=== PATIENT | male | born 1950 | race African-American/Black ===

== ENCOUNTER 2017-03-09 08:18 | Emergency (ER) | payer MEDICARE, SELFPAY | END 2017-03-09 11:40 | disposition home or self-care (01) | PROVIDERS: Emergency Provider Emergency Medicine; Family Provider Emergency Medicine; Visit Provider Emergency Medicine | DX: G44.89 Other headache syndrome (principal); I10 Essential (primary) hypertension; Z87.891 Personal history of nicotine dependence; Z86.718 Personal history of other venous thrombosis and embolism; Z79.01 Long term (current) use of anticoagulants; H54.0X33 Blindness right eye category 3, blindness left eye category 3; E78.5 Hyperlipidemia, unspecified; F41.8 Other specified anxiety disorders | CPT/HCPCS: 70450; 80053; 85025; 85610; 99284 ==

== ENCOUNTER 2017-06-04 15:38 | Emergency (ER) | payer MEDICARE, SELFPAY ==
[2017-06-04 15:32] VITALS: BP 127/71; PULSE 68; RESP 16; TEMP 36.9; O2SAT 98; BMI 27.2
--- NOTE | 2017-06-04 15:42 | HMH.EDHA ---
ED Disposition Clinical Impression: Chest pain in adult Headache Qualifiers: Headache type: unspecified Headache chronicity pattern: episodic headache Intractability: not intractable Qualified Code(s): R51 - Headache High blood pressure Qualifiers: Hypertension type: unspecified Qualified Code(s): I10 - Essential (primary) hypertension Disposition: Home, Self-Care Condition on Discharge: Good Instructions: DI for Headache Additional Instructions: Follow up with PCP in two to three days for further blood pressure management and to recheck left lateral leg; continue compression stockings. Referrals: Shaquille Bowden MD [Primary Care Provider] - Time of Disposition: 16:41 - Critical Care Critical Care Time: No Attestation: On 06/04/17, the high probability of a clinically significant, sudden or life threatening deterioration of the following system(s) required my full and direct attention, intervention and personal management. The time I documented below is in addition to time spent performing reported procedures but includes the following listed in this critical care notation. Medical Decision Making - Medical Records Medical records reviewed: Yes: I reviewed the patient's medical records. - River Inquiry Pt receiving controlled substance: No Vital Signs: 06/04/17 15:32 Temperature 98.4 F Temperature Source Oral Pulse Rate [Right Brachial] 68 Respiratory Rate 16 Blood Pressure [Right Arm] 127/71 Blood Pressure Mean [Right Arm] 89 Blood Pressure Source [Right Arm] Automatic Cuff Blood Pressure Position [Right Arm] Sitting 02 Sat by Pulse Oximetry 98 Oxygen Delivery Method Room Air reviewed at bedside during triage - Lab Data Lab results reviewed: Yes: I reviewed the patient's lab results. Lab Results 06/04/17 15:45: WBC 5.5, RBC 4.29 L, Hgb 12.9 L, Hct 40.9 L, MCV 95.5 H, MCH 30.1, MCHC 31.5 L, RDW 14.2, Plt Count 201, MPV 8.2, Neut % (Auto) 60.2, Lymph % (Auto) 25.7, [place] % (Auto) 7.7, Eos % (Auto) 6.1, Baso % (Auto) 0.3, Neut # (Auto) 3.3, Lymph # (Auto) 1.4, [place] # (Auto) 0.4, Eos # (Auto) 0.3, Baso # (Auto) 0.0 06/04/17 15:45: Sodium 144, Potassium 4.1, Chloride 110 H, Carbon Dioxide 28, Anion Gap 10.1, BUN 18, Creatinine 1.63 H, Estimated Creat Clear 62, Estimated GFR 42 L, Est GFR ( Amer) 51 L, Glucose 125 H, Calcium 9.3, Total Bilirubin 0.2, AST 19, ALT 17, Alkaline Phosphatase 73, Troponin I < 0.02, Total Protein 7.7, Albumin 3.3 L, Globulin 4.4 H, Albumin/Globulin Ratio 0.8 L Result diagrams: 06/04/17 15:45 06/04/17 15:45 Orders (Tests/Meds): ORDERS Category Date Time Status XR chest portable Stat Exams 06/04/17 15:49 Taken - Radiology Data #1 Image(s): Chest Image Reviewed: Yes I reviewed the patient's radiology image no change from prior in Jan 2017 - ECG Data Tracing #1 I reviewed this ECG and interpreted as documented below: NSR, borderline LVH seen previously; no change from 10/15/15. ECG initial impression date: 06/04/17 ECG initial impression time: 15:40 ECG normal with no acute: arrhythmias, ischemia, conduction abnormalities, chamber hypertrophy Normal Sinus Rhythm: Yes Chamber hypertrophy present: LVH - Reevaluation(s) Time: 16:37 (repeat SBP 148; no h/a) Headache HPI - General Chief Complaint: Headache Stated Complaint: High BP Time Seen by Provider: 06/04/17 15:42 Mode of Arrival: EMS Source of Information: Patient, EMS, Medical Record Limitations: No Limitations - History of Present Illness HPI Narrative: Diffuse headache, SBP in the 190's per EMS, patient states has had headaches like this in the past when BP elevated. Also reports left lateral leg pain w/o fever or drainage; denies calf pain. Not currently anticoagulated. Has compression type of wrappings on legs on arrival. No SOB but had some vague chest pain this morning w/o cough or flu symptoms. No chest pain now. No leg swelling. No MORRISON. No hypoxia or tachycar
--- NOTE | 2017-06-04 15:49 | XR_ITS ---
XR chest portable HISTORY: ITS.REASON: midsternal pain ORDERING PHYSICIAN: Mckayla Noriega MD PATIENT AGE: 66 years COMPARISON: 02/03/2017 FINDINGS: Borderline cardiomegaly. No evidence of CHF. No lobar consolidation or collapse. There is some increased density left lung base probably related to summation artifact. IMPRESSION: Borderline cardiomegaly, no acute finding
--- NOTE | 2017-06-04 15:53 | ED_ITS ---
ED Disposition Clinical Impression: Chest pain in adult Headache Qualifiers: Headache type: unspecified Headache chronicity pattern: episodic headache Intractability: not intractable Qualified Code(s): R51 - Headache High blood pressure Qualifiers: Hypertension type: unspecified Qualified Code(s): I10 - Essential (primary) hypertension Disposition: Home, Self-Care Condition on Discharge: Good Instructions: DI for Headache Additional Instructions: Follow up with PCP in two to three days for further blood pressure management and to recheck left lateral leg; continue compression stockings. Referrals: Shaquille Bowden MD [Primary Care Provider] - Time of Disposition: 16:41 - Critical Care Critical Care Time: No Attestation: On 06/04/17, the high probability of a clinically significant, sudden or life threatening deterioration of the following system(s) required my full and direct attention, intervention and personal management. The time I documented below is in addition to time spent performing reported procedures but includes the following listed in this critical care notation. Medical Decision Making - Medical Records Medical records reviewed: Yes: I reviewed the patient's medical records. - River Inquiry Pt receiving controlled substance: No Vital Signs: 06/04/17 15:32 Temperature 98.4 F Temperature Source Oral Pulse Rate [Right Brachial] 68 Respiratory Rate 16 Blood Pressure [Right Arm] 127/71 Blood Pressure Mean [Right Arm] 89 Blood Pressure Source [Right Arm] Automatic Cuff Blood Pressure Position [Right Arm] Sitting 02 Sat by Pulse Oximetry 98 Oxygen Delivery Method Room Air reviewed at bedside during triage - Lab Data Lab results reviewed: Yes: I reviewed the patient's lab results. Lab Results 06/04/17 15:45: WBC 5.5, RBC 4.29 L, Hgb 12.9 L, Hct 40.9 L, MCV 95.5 H, MCH 30.1, MCHC 31.5 L, RDW 14.2, Plt Count 201, MPV 8.2, Neut % (Auto) 60.2, Lymph % (Auto) 25.7, [place] % (Auto) 7.7, Eos % (Auto) 6.1, Baso % (Auto) 0.3, Neut # ( Auto) 3.3, Lymph # (Auto) 1.4, [place] # (Auto) 0.4, Eos # (Auto) 0.3, Baso # (Auto ) 0.0 06/04/17 15:45: Sodium 144, Potassium 4.1, Chloride 110 H, Carbon Dioxide 28, Anion Gap 10.1, BUN 18, Creatinine 1.63 H, Estimated Creat Clear 62, Estimated GFR 42 L, Est GFR ( Amer) 51 L, Glucose 125 H, Calcium 9.3, Total Bilirubin 0.2, AST 19, ALT 17, Alkaline Phosphatase 73, Troponin I < 0.02, Total Protein 7.7, Albumin 3.3 L, Globulin 4.4 H, Albumin/Globulin Ratio 0.8 L Result diagrams: 06/04/17 15:45 06/04/17 15:45 Orders (Tests/Meds): ORDERS Category Date Time Status XR chest portable Stat Exams 06/04/17 15:49 Taken - Radiology Data #1 Image(s): Chest Image Reviewed: Yes I reviewed the patient's radiology image no change from prior in Jan 2017 - ECG Data Tracing #1 I reviewed this ECG and interpreted as documented below: NSR, borderline LVH seen previously; no change from 10/15/15. ECG initial impression date: 06/04/17 ECG initial impression time: 15:40 ECG normal with no acute: arrhythmias, ischemia, conduction abnormalities, chamber hypertrophy Normal Sinus Rhythm: Yes Chamber hypertrophy present: LVH - Reevaluation(s) Time: 16:37 (repeat SBP 148; no h/a) Headache HPI - General Chief Complaint: Headache Stated Complaint: High BP Time Seen by Provider: 06/04/17 1
[2017-06-04 16:01] LABS: Basophils % 0.3 % (0.1-2.0); Eosinophils # 0.3 K/mm3 (0.0-0.4); Eosinophils % 6.1 % (0.1-12.0); Hematocrit 40.9 % (42.0-52.0); Hemoglobin 12.9 g/dL (14.1-18.0); Lymphocytes # 1.4 K/mm3 (0.7-4.5); Lymphocytes % 25.7 K/mm3 (10-50); Mean Corpuscular HGB Conc 31.5 g/dL (31.8-35.4); Mean Corpuscular Hemoglobin 30.1 pg (27.0-31.2); Mean Corpuscular Volume 95.5 fl (80-94); Mean Platelet Volume 8.2 fl (7.4-10.4); Monocytes # 0.4 K/mm3 (0.1-1.0); Monocytes % 7.7 % (1.7-9.3); Neutrophils # 3.3 K/mm3 (1.8-7.8); Neutrophils % 60.2 % (37.0-80.0); Platelet Count 201 K/mm3 (142-424); Red Blood Count 4.29 M/mm3 (4.60-6.20); Red Cell Distribution Width 14.2 % (11.5-17.5); White Blood Count 5.5 K/mm3 (4.8-10.8)
[2017-06-04 16:15] LABS: Alanine Aminotransferase 17 U/L (12-78); Albumin Level 3.3 gm/dL (3.4-5.0); Albumin/Globulin Ratio 0.8 (1.1-1.8); Alkaline Phosphatase 73 U/L (46-116); Anion Gap 10.1 mEq/L (5-15); Aspartate Amino Transferase 19 U/L (15-37); Bilirubin,Total 0.2 mg/dL (0.2-1.0); Blood Urea Nitrogen 18 mg/dL (7-18); Calcium 9.3 mg/dL (8.5-10.1); Carbon Dioxide 28 mmol/L (21.0-32.0); Chloride 110 mmol/L (98-107); Creatinine Clearance Estimated 62 mL/min (0-300); Creatinine,Serum 1.63 mg/dL (0.70-1.30); Estimated Glomerular Filt Rate 42 ml/min (>60); GFR (African American) 51 ML/MIN (>60); Globulin 4.4 gm/dl (1.3-3.2); Glucose 125 mg/dL (74-106); Potassium 4.1 mmoL/L (3.5-5.1); Sodium 144 mmol/L (136-145); Total Protein,Serum 7.7 gm/dL (6.4-8.2); Troponin I < 0.02 ng/ml (0.00-0.06)
[2017-06-04 17:10] VITALS: BP 145/75; PULSE 75; RESP 18; TEMP 36.7
== END 2017-06-04 17:10 | disposition home or self-care (01) ==
PROVIDERS: Emergency Provider Emergency Medicine; Family Provider Emergency Medicine; PCP Emergency Medicine
DX: I10 Essential (primary) hypertension (principal); R07.9 Chest pain, unspecified; R51 Headache; H54.8 Legal blindness, as defined in USA
CPT/HCPCS: 71045; 80053; 84484; 85025; 93005; 99282; 99283

== ENCOUNTER 2018-09-22 10:00 | Outpatient (RCR) | payer MEDICARE, SELFPAY ==
--- NOTE | 2018-09-05 09:26 | HMH.PTOPWND ---
Rehab Outpt Wound Evaluation Rehab OP Wound Evaluation Start: 09/05/18 09:20 Freq: Status: Active Protocol: Document 09/05/18 09:20 CALRA (Rec: 09/05/18 09:26 PHORLILLY [id number]) Electronically Signed By Ruperto Cano, PT 09/05/18 09:20 Subjective/History History History Pt is 68 yoaam who presents with c/o right LE edema x ~2-3 wks with insidious onset of symptoms. He currently resides at a personal group home and reports pain only with prolonged walking. He reports no c/o numbness or tingling associated with his edema. He has mild tenderness to palpation throughout the right lower leg. He is legally blind and has hx of B TKA, cardiac cath with stents, CAD, and HTN. Subjective Subjective Currently no c/o pain at rest, 6/10 with ambulation. Lymphedema Eval Classification of Lymphedema Secondary Lymphedema Yes Stemmer's sign Stemmer's Sign no Stage of Lymphedema Lymphedema stages Stage I (Pitting edema, reduces w/ elevation, no fibrosis) Skin Changes Dry Skin Yes Taut, Shiny Skin Yes Discoloration of Skin Yes Pain Scale Pain Scale (0-10) 6 Affected Extremities Areas Affected by Lymphedema/Edema Right Lower Extremity,Left Lower Extremity Manual Lymphatic Drainage Treatment Area MLD Treatment Area Right Lower Extremity,Left Lower Extremity Wound Problems/Impairments Impairments Problems/Impairmments Palpation Tenderness,Impaired Walking,Impaired Household Care,Impaired Recreational Activities,Increased Edema, Lymphedema Present,Subjective C/O Pain,Impaired Self Care/ Self Management Prognosis Rehab Potential Good Clinical Impression Consistent with Diagnosis Yes Short Term Goals Number of Weeks 4 Decreased Palpation Tenderness Yes: to min Increase Ability to Walk Yes Decrease Subjective C/O Pain Yes: 3/10 Patient to Understand Lymphedema Yes Treatment and Exercises Decrease Girth Measurments by (cm) Yes: by 5 cm Extension Service Specialist Goals Number of
== END 2018-09-22 10:05 | disposition home or self-care (01) ==
LOC: PT 10:00
PROVIDERS: Visit Provider Emergency Medicine
DX: M79.89 Other specified soft tissue disorders (principal); I89.0 Lymphedema, not elsewhere classified
CPT/HCPCS: 97140; 97162; 97760

== ENCOUNTER → 2018-12-01 11:01 | Outpatient (CLI) | payer MEDICARE, SELFPAY ==
--- NOTE | 2018-12-01 11:05 | CA_ITS ---
APPROVED REPORT EXAM: Comprehensive 2D, Doppler, and color-flow Echocardiogram Loss Prevention Analyst: Stefania Etienne RDCS Ht: 6 ft 4 in Wt: 249lbs BSA: 2.43 BP: 165/101 mmHg Indications: Chest Pain, Shortness of Breath, CAD, Hyperlipidemia, Hypertension/HDD 2D Dimensions LVOT 2.00 cm (M/F) 1.5-2.5 M-Mode Dimensions RVDd 3.50 cm (0.9-2.6) LA Diam 4.10 cm (1.9-4.0) LVDd 6.50 cm (3.5-5.7) Ao Diam 3.40 cm (2.0-3.7) LVDs 4.70 cm (3.5-5.7) AV Cusp 2.20 cm (1.5-2.6) IVSd 1.00 cm (0.6-1.1) PWd 1.20 cm (0.6-1.1) EF (Teich) 52.80% FS 27.70% EDV (Teich) 216.00 mL ESV (Teich) 102.00 mL LV Diastology E/A Ratio 0.6 MED E' 4.87 (< 7 cm/sec) E'/MED E' Ratio 9.40 (>14) LAT E' 10.20 (<10 cm/sec) E/LAT E' Ratio 4.50 (>14) Mitral Valve MV E Max Man. 45.90 (40-130 cm/s) MV A Velocity 72.10 (40-130 cm/s) E/A Ratio 0.60 Tricuspid Valve TR P. Velocity 315.00 cm/s RAP Estimate 10.00 mmHg RVSP 50.00 mmHg Left Ventricle Left atrium is mildly enlarged, left ventricle is normal size, mild concentric left ventricular hypertrophy, visually estimated ejection fraction 55% with no regional wall motion abnormality. Grade 1 diastolic dysfunction seen without tissue Doppler evidence of raise left atrial pressure. Right Ventricle Right atrium and left ventricular mildly enlarged with normal contractility. Aortic Valve Aortic valve is minimally thickened and fibrosed, there is no aortic stenosis aortic insufficiency. Mitral Valve Mitral valve is grossly normal, there is no mitral stenosis, there is mild mitral regurgitation. Tricuspid Valve Tricuspid valve is grossly normal, there is no tricuspid stenosis, there is mild tricuspid regurgitation, calculated right ventricular systolic pressure is 50 mmHg consistent with moderate pulmonary hypertension. Pulmonic Valve Pulmonic valve is poorly visualized. Great Vessels Aortic root is normal size. Pericardium No significant pericardial effusion noted. Conclusion 1. Mildly biatrial enlargement, normal left ventricular size, mild concentric left ventricular hypertrophy, visually estimated ejection fraction 55% with no regional wall motion abnormality. Grade 1 diastolic dysfunction seen without tissue Doppler evidence of raise left atrial pressure. 2. Mildly enlarged right ventricle with normal contractility. 3. Mild mitral and tricuspid regurgitation, calculated right ventricular systolic pressure is 50 mmHg consistent with moderate pulmonary hypertension. 4. No significant pericardial effusion noted. Electronically signed by : Fernando Phan, 12/01/2018 14:48:51
== END ==
PROVIDERS: PCP Emergency Medicine; Visit Provider Nurse Practitioner Family
DX: I25.10 Atherosclerotic heart disease of native coronary artery without angina pectoris (principal); R06.02 Shortness of breath; R07.9 Chest pain, unspecified
CPT/HCPCS: 93306

== ENCOUNTER → 2018-12-13 06:59 | Outpatient (CLI) | payer MEDICARE, SELFPAY ==
--- NOTE | 2018-12-13 | CA_ITS ---
APPROVED REPORT Exam: Pharmacologic Technologist: Jackelyn Elise Ht: 5 ft 4 in Wt: 248 lbs BSA: 2.14 m2 HR: 54 bpm BP: 159/94 mmHg Indications: Shortness of Air, chest pain Medical History Medications: Amlodipine,,,,, Furosemide (LASIX),,,,, Clonidine,,,,, Aspirin,,,,, Metoprolol,,,,, Simvastatin,,,,, Pantoprazole,,,,, Tramadol,,,,, LoraTidine,,,,, TriLEPTAL,,,,, Erythromycin,,,,, Timolol,,,,, Stress Test Details Test: LEXISCAN Reason for pharmacologic stress test: physical limitation. Reversal agent Aminophyline 100.0 mg, given intravenously for other. HR Resting HR: 56 bpm Max Heart Rate (APMHR): 150 bpm Max HR Achieved: 75 bpm Target HR (85% APMHR): 127 bpm % of APMHR: 50 Recovery HR: 63 bpm BP Resting BP: 159.0/94.0 mmHg Max BP: 167.0/103.0 mmHg Recovery BP: 167.0/103.0 mmHg ECG Clinical Exercise duration: 04:07 min Highest Stage Achieved: Stress ECG Conclusion Resting ECG: Sinus bradycardia, right axis, IVCD, ST-T abnormalities inferiorly Aminophylline 100mg slow IV given. Symptoms better except for stomach and headache. Symptoms: Shortness of air, upset stomach, headache, malaise. Mild chest discomfort. Arrhythmias/Ectopy: None ST-T Changes: NS ST-T changes Conclusion: Non-diagnostic Lexiscan stress. Myoview images reported separately. Electronically signed by : Fernando Phan, 12/14/2018 12:19:41
--- NOTE | 2018-12-13 07:02 | NM_ITS ---
APPROVED REPORT Exam: Nuclear Stress Test Indication: Chest pain, SOB, HTN, Former smoker, CAD Patient Location: Outpatient Stress Tech: Jackelyn Elise PA Tech:Chey Mota, ARRT, RT (R)(N) Ht: 6 ft 4 in Wt: 248 lbs HR: 54 bpm BP: 159/94 mmHg BSA: 2.43 m2 BMI: 30.1 History: Chest pain, SOB, HTN, Former smoker, CAD Procedure: Patient received a 0.4 mg of intravenous Lexiscan, resting heart rate 54 bpm, resting blood pressure 159/94 mmHg, with Lexiscan maximum heart rate achived was 73 bpm which is Less than 85 % of the maximum predicted heart rate and blood pressure was 106/64 mmHg. Electrocardiogram Sinus rhythm, with Lexiscan there is less than 1.[address] segment depression noted from the baseline EKG, nonspecific ST-T changes were also seen. The EKG portion of the Lexiscan Myoview is nondiagnostic. Cardiac Stress and Resting SPECT Images: Cardiac Stress and Resting SPECT images were obtained using technetium 99m Myoview 32.2 mCi stress and 10.83 mCi at rest. Gated SPECT with analysis of segmental wall motion and calculation of the ejection fraction also done. Cardiac stress and resting SPECT images show a fixed defect in the inferior wall secondary to myocardial scarring, no significant zehra-infarct ischemia seen, computer derived ejection fraction is 55% with moderate inferior wall hypokinesis. Right ventricle is normal size and contractility. Conclusion: 1. The EKG portion of the Lexiscan Myoview is nondiagnostic. 2. Scintigraphic evidence of myocardial scarring involving the inferior wall without significant zehra-infarct ischemia, computer derived ejection fraction 55% with moderate inferior wall hypokinesis, right ventricle is normal size and contractility. 3. Abnormal Lexiscan Myoview study. Electronically signed by : Fernando Phan, 12/14/2018 12:23:19
--- NOTE | 2018-12-13 07:32 | HMH.ITSHM ---
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 []TIMOLOL PANTOPRAZOLE LISINOPRIL ISOSORBIDE FUROSEMIDE CLONIDINE ASA AMLODIPINE TRAMADOL SIMVASTATIN TRILEPTAL METOPROLOL LORATADINE ERYTHROMYCIN
== END ==
PROVIDERS: PCP Emergency Medicine; Visit Provider Urology
DX: E78.5 Hyperlipidemia, unspecified (principal); I20.9 Angina pectoris, unspecified; I27.20 Pulmonary hypertension, unspecified; I51.89 Other ill-defined heart diseases; R06.02 Shortness of breath; R07.9 Chest pain, unspecified
CPT/HCPCS: 78452; 93017; A9502; J2785

== ENCOUNTER → 2019-01-23 10:55 | Outpatient (CLI) | payer MEDICARE, SELFPAY ==
[2019-01-23 12:35] LABS: Blood Urea Nitrogen 31 mg/dL (7-18); Calcium 8.8 mg/dL (8.5-10.1); Carbon Dioxide 30 mmol/L (21.0-32.0); Chloride 110 mmol/L (98-107); Creatinine,Serum 2.71 mg/dL (0.70-1.30); Estimated Glomerular Filt Rate 23 ml/min (>60); GFR (African American) 28 ML/MIN (>60); Glucose 101 mg/dL (74-106); Sodium 146 mmol/L (136-145)
== END ==
PROVIDERS: Nurse Practitioner Family; Visit Provider Internal Medicine
DX: R06.02 Shortness of breath; E78.2 Mixed hyperlipidemia; I10 Essential (primary) hypertension; I25.118 Atherosclerotic heart disease of native coronary artery with other forms of angina pectoris; I27.20 Pulmonary hypertension, unspecified; R51 Headache
CPT/HCPCS: 36415; 80048

== ENCOUNTER 2019-04-08 08:16 | Observation (INO) ==
[2019-04-08 08:47] LABS: Microscopic, Urine URINE MICROSCOPIC (MICROSCOPIC)
[2019-04-08 08:50] LABS: Appearance,Urine CLEAR (Clear); Bilirubin,Urine Negative (Negative); Blood, Urine 1+ (Negative); Color,Urine YELLOW (Yellow); Glucose,Urine (UA) Negative (Negative); Ketones,Urine Negative (Negative); Leukocyte Esterase,Urine 1+ (Negative); PH,Urine 6.5 (5.0-8.5); Protein,Urine Negative (Negative); Urobilinogen,Urine 0.2 EU/dl (0.2)
--- NOTE | 2019-04-08 08:50 | Emergency Department Note ---
ED Disposition Clinical Impression: Elevated left ventricular end-diastolic pressure (LVEDP), Renal insufficiency, Hypertensive urgency, Visual impairment Chest pain Qualifiers: Chest pain type: precordial pain Qualified Code(s): R07.2 - Precordial pain UTI (urinary tract infection) Qualifiers: Urinary tract infection type: site unspecified Hematuria presence: without hematuria Qualified Code(s): N39.0 - Urinary tract infection, site not specified Disposition: Admitted as Observation Condition on Discharge: Good - Critical Care Critical Care Time: No Attestation: On 04/08/19, the high probability of a clinically significant, sudden or life th reatening deterioration of the following system(s) required my full and direct attention, intervention and personal management. The time I documented below is in addition to time spent performing reported procedures but includes the following listed in this critical care notation. Medical Decision Making - Medical Records Medical records reviewed: Yes: I reviewed the patient's medical records. - [place] Inquiry Pt receiving controlled substance: No Vital Signs: 04/08/19 08:17 04/08/19 08:47 Pulse Rate [Radial] 66 63 Respiratory Rate 18 Blood Pressure [Right Arm] 203/133 H 172/102 H Blood Pressure Mean [Right Arm] 156 125 Blood Pressure Source [Right Arm] Automatic Cuff Blood Pressure Position [Right Arm] Supine 02 Sat by Pulse Oximetry 98 96 Oxygen Delivery Method Room Air - Lab Data Lab results reviewed: Yes: I reviewed the patient's lab results. Lab Results 04/08/19 08:35: WBC 6.6, RBC 4.13 L, Hgb 12.2 L, Hct 38.6 L, MCV 93.4, MCH 29.5, MCHC 31.6 L, RDW 14.2, Plt Count 213, MPV 8.4, Neut % (Auto) 61.2, Lymph % (Auto) 24.0, Dare % (Auto) 7.2, Eos % (Auto) 6.7, Baso % (Auto) 1.0, Neut # (Auto) 4.1, Lymph # (Auto) 1.6, Dare # (Auto) 0.5, Eos # (Auto) 0.4, Baso # (Auto) 0.1 04/08/19 08:35: Sodium 147 H, Potassium 4.3, Chloride 110 H, Carbon Dioxide 25, Anion Gap 16.3 H, BUN 27 H, Creatinine 2.28 H, Estimated Creat Clear 46, Estimated GFR 29 L, Est GFR ( Amer) 35 L, Glucose 93, Calcium 9.0, Troponin I < 0.02 04/08/19 08:35: Urine Color Yellow, Urine Appearance Clear, Urine pH 6.5, Ur Specific [place] 1.020, Urine Protein Negative, Urine Glucose (UA) Negative, Urine Ketones Negative, Urine Blood 1+, Urine Nitrate Negative, Urine Bilirubin Negative, Urine Urobilinogen 0.2, Ur Leukocyte Esterase 1+ A, Urine RBC 5-10, Urine WBC 50-100, Ur Squamous Epith Cells 5-10, Amorphous Sediment 2+, Urine Bacteria None Result diagrams: 04/08/19 08:35 04/08/19 08:35 Orders (Tests/Meds): ED MEDICATIONS Generic Name Dose Route Start Last Admin Trade Name Freq PRN Reason Stop Dose Admin Ertapenem 1 gm/ Sodium 50 mls @ 100 mls/hr 04/08/19 09:45 04/08/19 09:39 Chloride IV 04/22/19 09:44 100 mls/hr Q24H [place] Administration Protocol Discontinued Medications Generic Name Dose Route Start Last Admin Trade Name Freq PRN Reason Stop Dose Admin Amlodipine Besylate 10 mg 04/09/19 09:12 Norvasc 10mg Tablet PO 04/09/19 09:13 DAILY ONE Amlodipine Besylate 10 mg 04/08/19 09:12 04/08/19 09:30 Norvasc 10mg Tablet PO 04/08/19 09:13 10 mg DAILY ONE Administration Aspirin 324 mg 04/08/19 08:23 04/08/19 08:30 Aspirin 81mg Chewable Tablet PO 04/08/19 08:24 324 mg ONCE ONE Administration Clonidine HCl 0.1 mg 04/08/19 09:10 04/08/19 09:27 Clonidine 0.1mg Tablet PO 04/08/19 09:11 0.1 mg ONCE ONE Administration Isosorbide Mononitrate 30 mg 04/09/19 09:10 Imdur 30mg Er Tablet PO 04/09/19 09:11 DAILY ONE Isosorbide Mononitrate 30 mg 04/08/19 09:10 04/08/19 09:29 Imdur 30mg Er Tablet PO 04/08/19 09:11 30 mg DAILY ONE Administration Lisinopril 20 mg 04/09/19 09:10 Zestril 20mg Tab PO 04/09/19 09:11 DAILY ONE Lisinopril 20 mg 04/08/19 09:10 04/08/19 09:29 Zestril 20mg Tab PO 04/08/19 09:11 20 mg DAILY ONE Administration Metoprolol Succinate 200 mg 04/09/19 09:10 Toprol Xl 100mg Tablet PO 04/09/19 09:11 DAILY ONE Metoprolol Succinate 200 mg 04/08/19 09:10 04/08/19 09:29 Toprol Xl 100mg Tablet PO 04/08/19 09:11 200 mg DAILY ONE Administration ORDERS Category Date Time Status XR chest 2V Stat Exams 04/08/19 08:23 Taken Lactic Acid Stat Lab 04/08/19 09:50 Received Troponin I Q3H Lab 04/08/19 11:30 Ordered Troponin I Q3H Lab 04/08/19 14:30 Ordered Blood Culture Stat Micro 04/08/19 09:50 Received Urine Culture Stat Micro 04/08/19 08:35 Received ECG Request by /Bambi Stat Y 04/08/19 08:23 Ordered - Radiology Data #1 Image(s): Chest Image Reviewed: Yes I reviewed the patient's radiology image Preliminary Findings: Abnormal (chronic changes ) - ECG Data Tracing #1 Normal Sinus Rhythm: Yes Ischemic changes: non-specific ST-T wave changes Chest Pain HPI - General Chief Complaint: Chest Pain Stated Complaint: HTN Time Seen by Provider: 04/08/19 08:30 Mode of Arrival: EMS Source of Information: Patient, EMS, Medical Record Limitations: No Limitations Description of Symptoms (Recalled from ER Triage Doc. by RN): Complaint of recent cough with chest tightness. Elevated BP, has been on a new cough syrup. 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 and feeling of sob with assoc chest tightness - no fever - has elevated bp - MD complaint: chest pain indicative of cardiac Onset (ago): hour(s) Duration: intermittent Activity at onset: during rest Pain location: substernal Severity: similar to previous episodes Quality: tightness Risk Factors for CAD: Hypertension, Family Hx of CAD Treatments prior to or on arrival for Cardiac Chest Pain: none - DAFNE Score for Non-Stemi Age of Patient: 70-79 years old Heart Rate: 50-69 bpm Systolic Blood Pressure: 200 mmhg or higher Serum Creatinine: 2.00-3.99 mg/dl CHF [place] Class: I-No CHF Other Risk Factors: None Non-Stemi Risk Score: 99 - Related Data Prior Cardiac Testing/Procedures: Cardiac Angiogram Home Medications Medication Instructions Recorded Confirmed Erythromycin Base [Erythromycin 1 applic EYE-BOTH BID 06/12/17 04/08/19 3.5gm opth oinment] Loratadine [Claritin] 10 mg PO DAILY 06/12/17 04/08/19 Metoprolol Succinate [Toprol Xl 200 mg PO DAILY 06/12/17 04/08/19 200mg Tablet] Simvastatin 1 tab PO DAILY 06/12/17 04/08/19 Tramadol HCl [Ultram Take Home 1 tab PO Q6HP PRN 06/12/17 04/08/19 Pack 50mg (10)] timolol maleate 0.5 % eye drops 1 drp OPHTHALMIC DAILY 30 Days #10 06/16/17 04/08/19 OXcarbazepine [Trileptal 300mg 300 mg PO BID 08/20/18 04/08/19 tablet] cloNIDine HCL [cloNIDine 0.1mg 0.1 mg PO TID 08/20/18 04/08/19 Tablet] acetaminophen 325 mg capsule 325 mg PO Q6H PRN 11/27/18 04/08/19 spironolactone 25 mg tablet 25 mg PO DAILY 01/02/19 04/08/19 Amlodipine Besylate [Amlodipine 10 mg PO DAILY 04/08/19 04/08/19 10mg Tab] Aspirin [Low Dose Aspirin EC] 81 mg PO DAILY 04/08/19 04/08/19 Furosemide [Furosemide 40MG tAB] 40 mg PO DAILY 04/08/19 04/08/19 Isosorbide Mononitrate [Imdur 30mg 30 mg PO DAILY 04/08/19 04/08/19 ER tablet] Pantoprazole Sodium [Protonix 40mg 40 mg PO DAILY 04/08/19 04/08/19 tablet] lisinopriL [Lisinopril 20mg Tab] 20 mg PO BID 04/08/19 04/08/19 Allergies Allergy/AdvReac Type Severity Reaction Status Date / Time No Known Allergies Allergy Verified 01/23/19 11:22 [facility] History - Hepatitis A Screen Drug use history?: No High risk sexual behaviors?: No History of sexually transmitted infection?: No Currently employed?: No Childcare worker?: No Do you have indoor plumbing?: Yes Do you have electricity?: Yes Attestation statement:: This patient has been screened for Hepatitis A risk factors. I have reviewed the patient's past medical history: Yes Medical History: Reports:: Coronary Artery Disease, Deep Vein Thrombosis, Hyperlipidemia, Hypertension, Renal Insufficiency Denies:: Cancer, Diabetes Mellitus Type 1, Diabetes Mellitus Type 2, Internal Pacemaker, MRSA, Seizures Other Medical History: Denies: Blood Transfusion Reaction Other Surgeries: Yes: Cardiac Catheterization, Coronary Stent, Skin Cancer Excision, Other (blood clot in leg in the past). No: Pacemaker Amputation: No Fractures: No - Social History Smoking Status: Former smoker Tobacco Type: cigarettes Alcohol Intake: never Substance Use Type: denies use Occupational Status: unemployed, retired Housing: assisted living facility Household Members: other Family Hx:: No significant family history ROS Obtained: Yes All systems reviewed & no additional complaints - Constitutional Constitutional: Denies fever(s) - Eyes Eyes: Denies change in vision - ENT Ears, Nose, Mouth, and Throat: Denies sore throat - Cardiovascular Cardiovascular: Reports chest pain, Denies dyspnea - Respiratory Respiratory: Yes as per HPI, Yes cough, No coughing up blood - Gastrointestinal Gastrointestingal: Denies: abdominal pain - Genitourinary Male Genitourinary: Denies hematuria - Musculoskeletal Musculoskeletal: Denies joint pain - Integumentary/Breasts Skin/Breast: Denies rash - Neurologic Neurologic: Denies seizure-like activity Physical Exam - General General appearance: alert - Head Head exam: normocephalic - Eye Eye exam: Present: PERRL, EOMI - ENT ENT exam: Present: mucous membranes dry - Neck Neck exam: Present: trachea midline - Respiratory Respiratory exam: Present: normal lung sounds bilaterally. Absent: respiratory distress - Cardiovascular Cardiovascular exam: Present: regular rate, systolic murmur, +S4 - Abdominal Exam Abdominal exam: Present: soft - Extremities Exam Extremities exam: Present: pedal edema. Absent: calf tenderness - Neurological Exam Neurological exam: Present: alert, CN II-XII intact - Psychiatric Psychiatric exam: Present: normal affect - Skin Skin exam: Absent: rash
[2019-04-08 08:53] LABS: Basophils # 0.1 K/mm3 (0-0.2); Eosinophils # 0.4 K/mm3 (0.0-0.4); Eosinophils % 6.7 % (0.1-12.0); Hematocrit 38.6 % (42.0-52.0); Hemoglobin 12.2 g/dL (14.1-18.0); Lymphocytes # 1.6 K/mm3 (0.7-4.5); Mean Corpuscular HGB Conc 31.6 g/dL (31.8-35.4); Mean Corpuscular Volume 93.4 fl (80-94); Mean Platelet Volume 8.4 fl (7.4-10.4); Monocytes # 0.5 K/mm3 (0.1-1.0); Monocytes % 7.2 % (1.7-9.3); Neutrophils # 4.1 K/mm3 (1.8-7.8); Neutrophils % 61.2 % (37.0-80.0); Platelet Count 213 K/mm3 (142-424); Red Blood Count 4.13 M/mm3 (4.60-6.20); Red Cell Distribution Width 14.2 % (11.5-17.5); White Blood Count 6.6 K/mm3 (4.8-10.8)
[2019-04-08 08:55] LABS: Amorphous Sediment,Urine 2+ /lpf; WBC,Urine 50-100 #/hpf (0-3)
[2019-04-08 09:02] LABS: Anion Gap 16.3 mEq/L (5-15); Blood Urea Nitrogen 27 mg/dL (7-18); Carbon Dioxide 25 mmol/L (21.0-32.0); Chloride 110 mmol/L (98-107); Sodium 147 mmol/L (136-145)
[2019-04-08 09:03] LABS: Glucose 93 mg/dL (74-106)
--- NOTE | 2019-04-08 10:55 | History & Physical Report ---
*Admission Date: 04/08/19 *Chief complaint: chest pain *History of present illness: this pt presented to the ed with chest pain from [facility] -pt with nonproductive cough - pt was seen in the ed and was admitted with chest pain - [facility]. Patient states that about 3 PM yeste rday he started having some chest pains. Also complains of headache and shortness of breath. Says that if he holds his head up off the bed he feels like he can breathe better, but if he lays his head back he feels short of breath. States that he feels at times like he is going to pass out. States that he has a cough productive of green sputum. No fever that he is aware of. He has COPD. He says he was on oxygen at the [facility] previously, but just stopped using it on his own. He says mostly he used to wear it at night. He is a former smoker half a pack to three quarters of a pack per day for over 50 years. Says that he quit smoking last year. He also has a history of dysphagia and sees Dr. Land. He was given aspirin, nitroglycerin, and a DuoNeb treatment during transport. He feels like the nebulizer treatment helped his breathing. [facility] History I have reviewed the patient's past medical history: Yes Medical History: Reports:: Coronary Artery Disease, Deep Vein Thrombosis, Hyperlipidemia, Hypertension, Renal Insufficiency Denies:: Cancer, Diabetes Mellitus Type 1, Diabetes Mellitus Type 2, Internal Pacemaker, MRSA, Seizures *Have you ever received a pneumonia vaccine?: Yes *Have you received a flu vaccine this season?: Yes Other Medical History: Denies: Blood Transfusion Reaction Other Surgeries: Yes: Cardiac Catheterization, Coronary Stent, Skin Cancer Excision, Other (blood clot in leg in the past). No: Pacemaker Amputation: No Fractures: No - *Social History Smoking Status: Former smoker Tobacco Type: cigarettes Alcohol Intake: never Substance Use Type: denies use *Occupational Status:: unemployed, retired Housing: assisted living facility Household Members: other *Travel in the last 8 weeks: None Family Hx:: No significant family history Review of Systems - Review of Systems Review of systems:: pertinent systems reviewed and negative unless documented below - Constitutional Denies fever(s) - Eyes Denies change in vision - ENT Denies sore throat - *Cardiovascular Reports chest pain, Reports chest pain at rest - *Respiratory Reports cough, Reports shortness of breath, Denies coughing up blood - *Gastrointestinal Denies abdominal pain - *Genitourinary Denies blood in urine - *Musculoskeletal Denies joint pain - Integumentary/Breasts Denies rash - *Neurologic Denies seizure-like activity, Denies localized weakness, Denies headache(s), Denies seizure-like activity - Psychiatric Denies anxiety Meds Home Medications Medication Instructions Recorded Confirmed Type Erythromycin Base [Erythromycin 1 applic EYE-BOTH TIDP PRN 06/12/17 04/08/19 History 3.5gm opth oinment] Loratadine [Claritin] 10 mg PO DAILY 06/12/17 04/08/19 History Metoprolol Succinate [Toprol Xl 200 mg PO DAILY 06/12/17 04/08/19 History 200mg Tablet] Tramadol HCl [Ultram Take Home 1 tab PO Q6HP PRN 06/12/17 04/08/19 History Pack 50mg (10)] timolol maleate 0.5 % eye drops 1 drp OPHTHALMIC DAILY 30 Days #10 06/16/17 04/08/19 History OXcarbazepine [Trileptal 300mg 300 mg PO BID 08/20/18 04/08/19 History tablet] cloNIDine HCL [cloNIDine 0.1mg 0.1 mg PO 0900,1700,2100 08/20/18 04/08/19 History Tablet] spironolactone 25 mg tablet 25 mg PO DAILY 01/02/19 04/08/19 History Acetaminophen [Acetaminophen 325mg 650 mg PO Q4HP PRN 04/08/19 04/08/19 History tab] Amlodipine Besylate [Amlodipine 10 mg PO DAILY 04/08/19 04/08/19 History 10mg Tab] Aspirin [Aspirin 81mg chewable 81 mg PO DAILY 04/08/19 04/08/19 History tab] Furosemide [Furosemide 40MG tAB] 40 mg PO DAILY 04/08/19 04/08/19 History Isosorbide Mononitrate [Imdur 30mg 30 mg PO DAILY 04/08/19 04/08/19 History ER tablet] Pantoprazole Sodium [Protonix 40mg 40 mg PO DAILY 04/08/19 04/08/19 History tablet] Simvastatin 20 mg PO HS 04/08/19 04/08/19 History guaiFENesin [Robafen] 100 mg PO Q4HP PRN 04/08/19 04/08/19 History lisinopriL [Lisinopril 20mg Tab] 20 mg PO BID 04/08/19 04/08/19 History Allergies Allergy/AdvReac Type Severity Reaction Status Date / Time No Known Allergies Allergy Verified 01/23/19 11:22 Exam Vital signs and Labs for Last 24 Hours: Temp Pulse Resp BP Pulse Ox 97.9 F 86 14 197/112 H 96 04/08/19 10:24 04/08/19 10:24 04/08/19 10:24 04/08/19 10:24 04/08/19 10:19 Laboratory Results - last 24 hr 04/08/19 08:35: WBC 6.6, RBC 4.13 L, Hgb 12.2 L, Hct 38.6 L, MCV 93.4, MCH 29.5, MCHC 31.6 L, RDW 14.2, Plt Count 213, MPV 8.4, Neut % (Auto) 61.2, Lymph % (Auto) 24.0, [place] % (Auto) 7.2, Eos % (Auto) 6.7, Baso % (Auto) 1.0, Neut # (Auto) 4.1, Lymph # (Auto) 1.6, [place] # (Auto) 0.5, Eos # (Auto) 0.4, Baso # (Auto) 0.1 04/08/19 08:35: Sodium 147 H, Potassium 4.3, Chloride 110 H, Carbon Dioxide 25, Anion Gap 16.3 H, BUN 27 H, Creatinine 2.28 H, Estimated Creat Clear 46, Estimated GFR 29 L, Est GFR ( Amer) 35 L, Glucose 93, Calcium 9.0, Troponin I < 0.02 04/08/19 08:35: Urine Color Yellow, Urine Appearance Clear, Urine pH 6.5, Ur Specific [place] 1.020, Urine Protein Negative, Urine Glucose (UA) Negative, Urine Ketones Negative, Urine Blood 1+, Urine Nitrate Negative, Urine Bilirubin Negative, Urine Urobilinogen 0.2, Ur Leukocyte Esterase 1+ A, Urine RBC 5-10, Urine WBC 50-100, Ur Squamous Epith Cells 5-10, Amorphous Sediment 2+, Urine Bacteria None 04/08/19 09:50: Lactate 1.6 I & O for Last 24 hours: Intake & Output 04/05/19 04/06/19 04/07/19 04/08/19 11:59 11:59 11:59 11:59 Weight 252 lb 4 oz - Constitutional no acute distress, obese - *Routine HEENT Exam Head: Present: normocephalic Eye: Present: EOMI, PERRL ENT: Present: mucous membranes dry - *Routine Neck Exam Present: supple. Absent: JVD - *Routine Respiratory Exam Present: CTA bilaterally - *Routine Cardiovascular Exam Present: RRR, murmur - *Routine Abdominal Exam Present: soft - *Routine Extremities Exam Present: full ROM - *Routine Skin Exam Present: intact - *Routine Neurological Exam Present: alert, oriented X3, CN II-XII intact - Routine Psychiatric Exam Present: normal affect Assessment and Plan (1) Obesity (BMI 30.0-34.9) Current visit: Yes Status: Acute Category: Medical Code(s): E66.9 - Obesity, unspecified (2) Chest pain Current visit: Yes Status: Acute Qualifiers: Chest pain type: precordial pain Qualified Code(s): R07.2 - Precordial pain Category: Medical Code(s): R07.9 - Chest pain, unspecified (3) Elevated left ventricular end-diastolic pressure (LVEDP) Current visit: Yes Status: Acute Category: Medical Code(s): R94.30 - Abnormal result of cardiovascular function study, unspecified (4) Hypertensive urgency Current visit: Yes Status: Acute Category: Medical Code(s): I16.0 - Hypertensive urgency (5) Renal insufficiency Current visit: Yes Status: Acute Category: Medical Code(s): N28.9 - Disorder of kidney and ureter, unspecified (6) UTI (urinary tract infection) Current visit: Yes Status: Acute Qualifiers: Urinary tract infection type: site unspecified Hematuria presence: without hematuria Qualified Code(s): N39.0 - Urinary tract infection, site not specified Category: Medical Code(s): N39.0 - Urinary tract infection, site not specified (7) Visual impairment Current visit: Yes Status: Acute Category: Medical Code(s): H54.7 - Unspecified visual loss
--- NOTE | 2019-04-08 12:02 | Pharmacy Consult Notes ---
[facility] Pharmacy VTE Monitoring - Patient Demographics Admission date: 04/08/19 Report Date: 04/08/19 Time: 12:02 Allergies/Adverse Reactions: Patient Allergies No Known Allergies Allergy (Verified 01/23/19 11:22) Height: 1.93 m Weight: 114.419 kg Patient Problems: Current Active Problems Renal insufficiency (Acute) Hypertensive urgency (Acute) UTI (urinary tract infection) (Acute) Visual impairment (Acute) Elevated left ventricular end-diastolic pressure (LVEDP) (Acute) Chest pain (Acute) - VTE Risk Labs: VTE Related Lab Results Hgb 12.2 g/dL (14.1-18.0) L 04/08/19 08:35 Hct 38.6 % (42.0-52.0) L 04/08/19 08:35 Plt Count 213 K/mm3 (142-424) 04/08/19 08:35 BUN 27 mg/dL (7-18) H 04/08/19 08:35 Creatinine 2.28 mg/dL (0.70-1.30) H 04/08/19 08:35 Estimated Creat Clear 46 mL/min (50-200) 04/08/19 08:35 - Prophylaxis Types of VTE Prophylaxis: TEDS Knee High (FEI HOSE ORDER PLACED)
[2019-04-09 08:48] LABS: Basophils # 0.1 K/mm3 (0-0.2); Basophils % 1.1 % (0.1-2.0); Eosinophils # 0.4 K/mm3 (0.0-0.4); Eosinophils % 7.4 % (0.1-12.0); Hemoglobin 11.8 g/dL (14.1-18.0); Lymphocytes # 1.3 K/mm3 (0.7-4.5); Lymphocytes % 23.2 % (10-50); Mean Corpuscular HGB Conc 31.8 g/dL (31.8-35.4); Mean Corpuscular Volume 92.4 fl (80-94); Monocytes # 0.3 K/mm3 (0.1-1.0); Monocytes % 5.1 % (1.7-9.3); Neutrophils # 3.6 K/mm3 (1.8-7.8); Neutrophils % 63.2 % (37.0-80.0); Platelet Count 217 K/mm3 (142-424); White Blood Count 5.7 K/mm3 (4.8-10.8)
[2019-04-09 08:52] LABS: Anion Gap 15.6 mEq/L (5-15); Calcium 8.9 mg/dL (8.5-10.1)
--- NOTE | 2019-04-09 09:04 | Consult Report ---
History of Present Illness Consult date: 04/09/19 Requesting physician: Shaquille Bowden Consult reason: shortness of breath Chief complaint: SOA Additional Medical History:: 1. Blind 2. HTN A. Echo, 11/2018, 1. Mildly biatrial enlargement, normal left ventricular size, mild concentric left ventricular hypertrophy, visually estimated ejection fraction 55% with no regional wall motion abnormality. Grade 1 diastolic dysfunction seen without tissue Doppler evidence of raise left atrial pressure. 2. Mildly enlarged right ventricle with normal contractility. 3. Mild mitral and tricuspid regurgitation, calculated right ventricular systolic pressure is 50 mmHg consistent with moderate pulmonary hypertension. 4. No significant pericardial effusion noted 3. Hyperlipidemia, on statin 4. CKD, stage III, Cr about 2 and GFR of about 30 5. ERIC induced cough, 03/2019 6. History of DVT 7. CAD with history of LAD stent [facility], 06/2017, 1. The left main artery normal 2. The left anterior descending artery has very proximal stent which is widely patent free of in-stent restenosis. Immediately distal to the stent is a Concentric 30% stenosis followed by a mid vessel 40-50% stenosis. The vessel is tortuous 3. The circumflex artery is codominant and has mild luminal irregularities within mid vessel 20% stenosis 4. The right coronary artery is codominant very tortuous with 20% mid vessel stenoses 5. The JIMENEZ ventriculogram reveals normal 60% 6. The left ventricular end-diastolic pressure 20 mmHg [facility], 12/2018, due to abnormal stress test. The left main artery Normal The left anterior descending artery Has proximal 30 to 40% stenosis followed by a stent in the midsegment which is widely patent. Distal to the stent there is a 40% tapering into the [place] vessel. A large first diagonal artery has proximal 40% stenosis The circumflex artery Is a large codominant vessel and has 10% diffuse luminal irregularities The right coronary artery Is codominant and has proximal 20 to 30% stenosis mild 10% mid vessel stenoses The JIMENEZ ventriculogram reveals Normal 65% The left ventricular end-diastolic pressure Severely elevated at 30 mmHg History of present illness: 68 yo BM resident of [facility] admitted for SOA and cough. Pt relates increased in salt containing foods (sausage, chips, etc) recently. Denies any chest pain but has had a non-productive cough. Poor vision with only able to see light and shapes out of right eye. Troponins normal X 3 with CXR negative for CHF or acute process. EKG is sinus with with LAD and no acute ST segment changes. Noted to have some renal insufficiency on admission that has improved with holding lisinopril along with improvement in cough. Recent cardiac cath, 12/2018, showed patent LAD stent without obstructive CAD. Elevated end diastolic pressure noted with more aggressive diuresis recommended. [facility] History Medical History: Reports:: Coronary Artery Disease, Deep Vein Thrombosis, Hyperlipidemia, Hypertension, Renal Insufficiency Denies:: Cancer, Diabetes Mellitus Type 1, Diabetes Mellitus Type 2, Internal Pacemaker, MRSA, Seizures *Have you ever received a pneumonia vaccine?: Yes *Have you received a flu vaccine this season?: Yes Other Medical History: Denies: Blood Transfusion Reaction Laterality Cases: Right: Arthroscopy Knee Other Surgeries: Yes: Cardiac Catheterization, Coronary Stent, Skin Cancer Excision, Other (blood clot in leg in the past). No: Pacemaker Amputation: No Fractures: No - *Social History Educational Level: Attended High School Smoking Status: Current every day smoker Tobacco Type: cigarettes # Packs/Day (cigarettes): 1 Alcohol Intake: never Substance Use Type: denies use *Occupational Status:: unemployed, retired Housing: assisted living facility Household Members: other *Travel in the last 8 weeks: None Family Hx:: No significant family history Meds Home Medications Medication Instructions Recorded Confirmed Type Erythromycin Base [Erythromycin 1 applic EYE-BOTH TIDP PRN 06/12/17 04/08/19 History 3.5gm opth oinment] Loratadine [Claritin] 10 mg PO DAILY 06/12/17 04/08/19 History Metoprolol Succinate [Toprol Xl 200 mg PO DAILY 06/12/17 04/08/19 History 200mg Tablet] Tramadol HCl [Ultram Take Home 1 tab PO Q6HP PRN 06/12/17 04/08/19 History Pack 50mg (10)] timolol maleate 0.5 % eye drops 1 drp OPHTHALMIC DAILY 30 Days #10 06/16/17 04/08/19 History OXcarbazepine [Trileptal 300mg 300 mg PO BID 08/20/18 04/08/19 History tablet] cloNIDine HCL [cloNIDine 0.1mg 0.1 mg PO 0900,1700,2100 08/20/18 04/08/19 History Tablet] spironolactone 25 mg tablet 25 mg PO DAILY 01/02/19 04/08/19 History Acetaminophen [Acetaminophen 325mg 650 mg PO Q4HP PRN 04/08/19 04/08/19 History tab] Amlodipine Besylate [Amlodipine 10 mg PO DAILY 04/08/19 04/08/19 History 10mg Tab] Aspirin [Aspirin 81mg chewable 81 mg PO DAILY 04/08/19 04/08/19 History tab] Furosemide [Furosemide 40MG tAB] 40 mg PO DAILY 04/08/19 04/08/19 History Isosorbide Mononitrate [Imdur 30mg 30 mg PO DAILY 04/08/19 04/08/19 History ER tablet] Pantoprazole Sodium [Protonix 40mg 40 mg PO DAILY 04/08/19 04/08/19 History tablet] Simvastatin 20 mg PO HS 04/08/19 04/08/19 History guaiFENesin [Robafen] 100 mg PO Q4HP PRN 04/08/19 04/08/19 History lisinopriL [Lisinopril 20mg Tab] 20 mg PO BID 04/08/19 04/08/19 History Allergies Allergy/AdvReac Type Severity Reaction Status Date / Time No Known Allergies Allergy Verified 01/23/19 11:22 Review of Systems - Review of Systems Review of systems:: pertinent systems reviewed and negative unless documented below - *Cardiovascular Denies chest pain - *Respiratory Reports cough, Reports shortness of breath - *Gastrointestinal Denies loose stools, Denies nausea, Denies vomiting - *Genitourinary Denies blood in urine - *Musculoskeletal Denies joint pain - *Neurologic Denies seizure-like activity, Denies localized weakness, Denies headache(s), Denies seizure-like activity Exam Vital signs and Labs for Last 24 Hours: Temp Pulse Resp BP Pulse Ox 97.9 F 58 L 18 140/82 95 04/09/19 08:00 04/09/19 08:00 04/09/19 08:00 04/09/19 08:00 04/09/19 08:00 Laboratory Results - last 24 hr 04/08/19 08:35: Sodium 147 H, Potassium 4.3, Chloride 110 H, Carbon Dioxide 25, Anion Gap 16.3 H, BUN 27 H, Creatinine 2.28 H, Estimated Creat Clear 46, Estimated GFR 29 L, Est GFR ( Amer) 35 L, Glucose 93, Calcium 9.0, Troponin I < 0.02 04/08/19 09:50: Lactate 1.6 04/08/19 11:45: Troponin I < 0.02 04/08/19 14:50: Troponin I < 0.02 04/09/19 08:20: WBC 5.7, RBC 4.00 L, Hgb 11.8 L, Hct 37.0 L, MCV 92.4, MCH 29.4, MCHC 31.8, RDW 14.0, Plt Count 217, MPV 8.0, Neut % (Auto) 63.2, Lymph % (Auto) 23.2, [place] % (Auto) 5.1, Eos % (Auto) 7.4, Baso % (Auto) 1.1, Neut # (Auto) 3.6, Lymph # (Auto) 1.3, [place] # (Auto) 0.3, Eos # (Auto) 0.4, Baso # (Auto) 0.1 04/09/19 08:20: Sodium 144, Potassium 4.6, Chloride 109 H, Carbon Dioxide 24, Anion Gap 15.6 H, BUN 24 H, Creatinine 1.99 H, Estimated Creat Clear 56, Estimated GFR 33 L, Est GFR ( Amer) 40 L, Glucose 139 H D, Calcium 8.9 I & O for Last 24 hours: Intake & Output 04/06/19 04/07/19 04/08/19 04/09/19 11:59 11:59 11:59 11:59 Intake Total 720 / 720 Output Total 1850 / 1850 Balance -1130 / -1130 Weight 252 lb 4 oz 252 lb 4.011 oz Microbiology Reports for the Last 24 Hours: Microbiology 04/08/19 08:35 Urine,Clean Catch Urine Culture - Preliminary NO GROWTH AFTER 24 HOURS - *Routine HEENT Exam Head: Present: normocephalic Eye: Present: EOMI, PERRL ENT: Present: mucous membranes moist - *Routine Neck Exam Present: supple. Absent: JVD, carotid bruit - *Routine Respiratory Exam Present: CTA bilaterally. Absent: accessory muscle use, rales, rhonchi, wheezes - *Routine Cardiovascular Exam Present: RRR. Absent: murmur, gallop, rubs - *Routine Abdominal Exam Present: soft. Absent: tenderness, distended, guarding - *Routine Extremities Exam Present: edema. Absent: calf tenderness - *Routine Neurological Exam Present: alert, oriented X3, moving all extremities Assessment and Plan (1) Obesity (BMI 30.0-34.9) Current visit: Yes Status: Acute Category: Medical Code(s): E66.9 - Obesity, unspecified (2) Chest pain Current visit: Yes Status: Acute Qualifiers: Chest pain type: precordial pain Qualified Code(s): R07.2 - Precordial pain Category: Medical Code(s): R07.9 - Chest pain, unspecified (3) Elevated left ventricular end-diastolic pressure (LVEDP) Current visit: Yes Status: Acute Category: Medical Code(s): R94.30 - Abnormal result of cardiovascular function study, unspecified (4) Hypertensive urgency Current visit: Yes Status: Acute Category: Medical Code(s): I16.0 - Hypertensive urgency (5) Renal insufficiency Current visit: Yes Status: Acute Category: Medical Code(s): N28.9 - Disorder of kidney and ureter, unspecified (6) UTI (urinary tract infection) Current visit: Yes Status: Acute Qualifiers: Urinary tract infection type: site unspecified Hematuria presence: without hematuria Qualified Code(s): N39.0 - Urinary tract infection, site not specified Category: Medical Code(s): N39.0 - Urinary tract infection, site not specified (7) Visual impairment Current visit: Yes Status: Acute Category: Medical Code(s): H54.7 - Unspecified visual loss - Assessment and plan all Dx Assessment and Plan for all problems:: 1. SOA, likely related to elevated LVEDP, BP and possibly lisinopril related cough. Switch to losartan 50 mg daily for BP and continue diuretics (lasix and spironolactone) for elevated LVEDP while monitoring renal functions. 2. Normal troponins with recent cardiac cath showing patent LAD stent without obstructive CAD. No further cardiac workup at this time. 3. OK for discharge from Cardiology standpoint.
--- NOTE | 2019-04-09 10:05 | Discharge Summary ---
General - General Admission date:: 04/08/19 Discharge date: 04/09/19 HPI HPI: this pt presented to the ed with chest pain from alf -pt with nonproductive cough - pt was seen in the ed and was admitted with chest pain - rought in by ambulance from long-term. Patient states that about 3 PM yesterday he started having some chest pains. Also complains of headache and shortness of breath. Says that if he holds his head up off the bed he feels like he can breathe better, but if he lays his head back he feels short of breath. States that he feels at times like he is going to pass out. States that he has a cough productive of green sputum. No fever that he is aware of. He has COPD. He says he was on oxygen at the long-term previously, but just stopped using it on his own. He says mostly he used to wear it at night. He is a former smoker half a pack to three quarters of a pack per day for over 50 years. Says that he quit smoking last year. He also has a history of dysphagia and sees Dr. Land. He was given aspirin, nitroglycerin, and a DuoNeb treatment during transport. He feels like the nebulizer treatment helped his breathing. Hospital Course Hospital Course: cardiology consult: see note recommends:1. SOA, likely related to elevated LVEDP, BP and possibly lisinopril related cough. Switch to losartan 50 mg daily for BP and continue diuretics (lasix and spironolactone) for elevated LVEDP while monitoring renal functions. 2. Normal troponins with recent cardiac cath showing patent LAD stent without obstructive CAD. No further cardiac workup at this time. 3. OK for discharge from Cardiology standpoint. 04/09/19 08:00 Consult to Cardiology [CONS] Routine Consulting Provider: Cardiology Reason For Consult: chest pain Laboratory Results - last 24 hr 04/08/19 09:50: Lactate 1.6 04/08/19 11:45: Troponin I < 0.02 04/08/19 14:50: Troponin I < 0.02 04/09/19 08:20: WBC 5.7, RBC 4.00 L, Hgb 11.8 L, Hct 37.0 L, MCV 92.4, MCH 29.4, MCHC 31.8, RDW 14.0, Plt Count 217, MPV 8.0, Neut % (Auto) 63.2, Lymph % (Auto) 23.2, [place] % (Auto) 5.1, Eos % (Auto) 7.4, Baso % (Auto) 1.1, Neut # (Auto) 3.6, Lymph # (Auto) 1.3, [place] # (Auto) 0.3, Eos # (Auto) 0.4, Baso # (Auto) 0.1 04/09/19 08:20: Sodium 144, Potassium 4.6, Chloride 109 H, Carbon Dioxide 24, Anion Gap 15.6 H, BUN 24 H, Creatinine 1.99 H, Estimated Creat Clear 56, Estimated GFR 33 L, Est GFR ( Amer) 40 L, Glucose 139 H D, Calcium 8.9 Intake & Output 04/06/19 04/07/19 04/08/19 04/09/19 11:59 11:59 11:59 11:59 Intake Total 720 / 720 Output Total 1850 / 1850 Balance -1130 / -1130 Weight 252 lb 4 oz 252 lb 4.011 oz Microbiology 04/08/19 08:35 Urine Culture - Preliminary Urine,Clean Catch Vital Signs - 24 hr 04/08/19 10:19 04/08/19 10:24 04/08/19 12:15 Temperature 99.0 F 97.9 F Pulse Rate 86 58 L Pulse Rate [Radial] 55 L Respiratory Rate 18 14 Blood Pressure 197/112 H Blood Pressure [Right Arm] 153/92 H 02 Sat by Pulse Oximetry 96 04/08/19 16:00 04/08/19 19:35 04/08/19 20:00 Temperature 97.8 F 97.8 F Pulse Rate 70 50 L Pulse Rate [Radial] 66 68 Respiratory Rate 20 18 Blood Pressure Blood Pressure [Right Arm] 146/89 H 118/86 02 Sat by Pulse Oximetry 95 97 96 04/09/19 00:00 04/09/19 04:00 04/09/19 08:00 Temperature 97.9 F 97.9 F 97.9 F Pulse Rate 60 60 Pulse Rate [Radial] 69 60 58 L Respiratory Rate 17 17 18 Blood Pressure Blood Pressure [Right Arm] 145/81 H 150/84 H 140/82 02 Sat by Pulse Oximetry 96 96 95 chest x ray:IMPRESSION: New nonspecific thickening of right minor fissure. No acute infiltrate or active CHF. Urine positive for nitrates culture pending. Will discharge back to [facility] on Omnicef 300 mg twice a day for 10 days while awaiting culture results. Medication adjustments per cardiology recommendations. Objective Vital signs: Temp Pulse Resp BP Pulse Ox 97.9 F 58 L 18 140/82 95 04/09/19 08:00 04/09/19 08:00 04/09/19 08:00 04/09/19 08:00 04/09/19 08:00 no acute distress - *Routine HEENT Exam Head: Present: normocephalic ENT: Present: mucous membranes moist Comments: Patient is blind both eyes - *Routine Respiratory Exam Present: CTA bilaterally - *Routine Cardiovascular Exam Present: RRR - *Routine Abdominal Exam Present: soft, normoactive bowel sounds - *Routine Extremities Exam Present: full ROM - *Routine Skin Exam Present: intact - *Routine Neurological Exam Present: alert, oriented X3 - Routine Psychiatric Exam Present: normal affect Results Labs on day of discharge: Labs from last 24 hours 04/09/19 04/09/19 04/08/19 08:20 08:20 14:50 WBC 5.7 RBC 4.00 L Hgb 11.8 L Hct 37.0 L MCV 92.4 MCH 29.4 MCHC 31.8 RDW 14.0 Plt Count 217 MPV 8.0 Neut % (Auto) 63.2 Lymph % (Auto) 23.2 [place] % (Auto) 5.1 Eos % (Auto) 7.4 Baso % (Auto) 1.1 Neut # (Auto) 3.6 Lymph # (Auto) 1.3 [place] # (Auto) 0.3 Eos # (Auto) 0.4 Baso # (Auto) 0.1 Sodium 144 Potassium 4.6 Chloride 109 H Carbon Dioxide 24 Anion Gap 15.6 H BUN 24 H Creatinine 1.99 H Estimated Creat Clear 56 Estimated GFR 33 L Est GFR ( Amer) 40 L Glucose 139 H D Lactate Calcium 8.9 Troponin I < 0.02 04/08/19 04/08/19 11:45 09:50 WBC RBC Hgb Hct MCV MCH MCHC RDW Plt Count MPV Neut % (Auto) Lymph % (Auto) [place] % (Auto) Eos % (Auto) Baso % (Auto) Neut # (Auto) Lymph # (Auto) [place] # (Auto) Eos # (Auto) Baso # (Auto) Sodium Potassium Chloride Carbon Dioxide Anion Gap BUN Creatinine Estimated Creat Clear Estimated GFR Est GFR ( Amer) Glucose Lactate 1.6 Calcium Troponin I < 0.02 Preliminary micro results at discharge 04/08/19 08:35 Urine Culture - Preliminary Urine,Clean Catch - Additional Comments Rounded with Dr. Bowden all orders per Dennise DS: Diagnosis - Discharge Diagnosis (1) Obesity (BMI 30.0-34.9) Status: Acute (2) Chest pain Status: Acute (3) Elevated left ventricular end-diastolic pressure (LVEDP) Status: Acute (4) Hypertensive urgency Status: Acute (5) Renal insufficiency Status: Acute (6) UTI (urinary tract infection) Status: Acute (7) Visual impairment Status: Acute Discharge Plan - Patient Discharge Instructions ACTIVITY: Continue current activity DIET: continue same diet Patient Instructions: Essential Hypertension, DI for Urinary Tract Infection (UTI), DI for Chest Pain - Follow up Plan Follow up with: Shaquille Bowden MD [Emergency Provider] - Disposition: Home, Self-Custodial Medications: Home Medications Medication Instructions Recorded Confirmed Type Erythromycin Base [Erythromycin 1 applic EYE-BOTH TIDP PRN 06/12/17 04/08/19 History 3.5gm opth oinment] Loratadine [Claritin] 10 mg PO DAILY 06/12/17 04/08/19 History Metoprolol Succinate [Toprol Xl 200 mg PO DAILY 06/12/17 04/08/19 History 200mg Tablet] Tramadol HCl [Ultram Take Home 1 tab PO Q6HP PRN 06/12/17 04/08/19 History Pack 50mg (10)] timolol maleate 0.5 % eye drops 1 drp OPHTHALMIC DAILY 30 Days #10 06/16/17 04/08/19 History OXcarbazepine [Trileptal 300mg 300 mg PO BID 08/20/18 04/08/19 History tablet] cloNIDine HCL [cloNIDine 0.1mg 0.1 mg PO 0900,1700,2100 08/20/18 04/08/19 History Tablet] spironolactone 25 mg tablet 25 mg PO DAILY 01/02/19 04/08/19 History Acetaminophen [Acetaminophen 325mg 650 mg PO Q4HP PRN 04/08/19 04/08/19 History tab] Amlodipine Besylate [Amlodipine 10 mg PO DAILY 04/08/19 04/08/19 History 10mg Tab] Aspirin [Aspirin 81mg chewable 81 mg PO DAILY 04/08/19 04/08/19 History tab] Furosemide [Furosemide 40MG tAB] 40 mg PO DAILY 04/08/19 04/08/19 History Isosorbide Mononitrate [Imdur 30mg 30 mg PO DAILY 04/08/19 04/08/19 History ER tablet] Pantoprazole Sodium [Protonix 40mg 40 mg PO DAILY 04/08/19 04/08/19 History tablet] Simvastatin 20 mg PO HS 04/08/19 04/08/19 History guaiFENesin [Robafen] 100 mg PO Q4HP PRN 04/08/19 04/08/19 History lisinopriL [Lisinopril 20mg Tab] 20 mg PO BID 04/08/19 04/08/19 History Cefdinir [Omnicef 300mg Capsule] 300 mg PO BID 10 Days #20 cap 04/09/19 Rx Losartan Potassium 50 mg PO DAILY 30 Days #30 tab 04/09/19 Rx Prescriptions/Medication Reconciliation: New Losartan Potassium 50 mg PO DAILY 30 Days #30 tab Cefdinir [Omnicef 300mg Capsule] 300 mg PO BID 10 Days #20 cap Continued timolol maleate 0.5 % eye drops 1 drp OPHTHALMIC DAILY 30 Days #10 spironolactone 25 mg tablet 25 mg PO DAILY Metoprolol Succinate [Toprol Xl 200mg Tablet] 200 mg PO DAILY Tramadol HCl [Ultram Take Home Pack 50mg (10)] 1 tab PO Q6HP PRN PRN Reason: chronic Loratadine [Claritin] 10 mg PO DAILY Erythromycin Base [Erythromycin 3.5gm opth oinment] 1 applic EYE-BOTH TIDP PRN PRN Reason: INFECTION OXcarbazepine [Trileptal 300mg tablet] 300 mg PO BID cloNIDine HCL [cloNIDine 0.1mg Tablet] 0.1 mg PO 0900,1700,2100 Isosorbide Mononitrate [Imdur 30mg ER tablet] 30 mg PO DAILY Pantoprazole Sodium [Protonix 40mg tablet] 40 mg PO DAILY Aspirin [Aspirin 81mg chewable tab] 81 mg PO DAILY Furosemide [Furosemide 40MG tAB] 40 mg PO DAILY Amlodipine Besylate [Amlodipine 10mg Tab] 10 mg PO DAILY Simvastatin 20 mg PO HS Acetaminophen [Acetaminophen 325mg tab] 650 mg PO Q4HP PRN PRN Reason: As Needed For Fever Or Pain guaiFENesin [Robafen] 100 mg PO Q4HP PRN PRN Reason: Cough Discontinued lisinopriL [Lisinopril 20mg Tab] 20 mg PO BID - Problem Reconciliation Problems Reviewed?: Yes
--- NOTE | 2019-04-09 19:10 | Cardiology Report ---
APPROVED REPORT EXAM: Comprehensive 2D, Doppler, and color-flow Echocardiogram Costume Design Teacher: Marybeth Mejia CRT Ht: 6 ft 4 in Wt: 252lbs BSA: 2.44 BP: 187/112 mmHg Indications: Chest Pain, CAD, Hyperlipidemia, Hypertension/HDD, STENT, DVT 2D Dimensions LVOT 2.07 cm (M/F) 1.5-2.5 M-Mode Dimensions RVDd 3.22 cm (0.9-2.6)LVDd 6.16 cm (3.5-5.7) LVDs 3.58 cm (3.5-5.7)IVSd 1.81 cm (0.6-1.1) PWd 1.21 cm (0.6-1.1)EF (Teich) 71.90% FS 41.90% EDV (Teich) 191.10 mL ESV (Teich) 53.70 mL LV Diastology E/A Ratio 0.81 Mitral Valve MV A Velocity 60.00 (40-130 cm/s) Left Ventricle Left atrium is mildly enlarged, left ventricle is normal size, mild concentric left ventricular hypertrophy, visually estimated ejection fraction 55% with no regional wall motion abnormality. Grade 1 diastolic dysfunction seen without tissue Doppler evidence of raise left atrial pressure. Right Ventricle Right atrium and right ventricle mildly enlarged with normal contractility. Aortic Valve Aortic valve is minimally thickened and fibrosed, there is no aortic stenosis or aortic insufficiency. Mitral Valve Mitral valve leaflets are minimally thickened, there is mild mitral regurgitation. Tricuspid Valve Tricuspid valve is grossly normal, there is mild tricuspid regurgitation. Pulmonic Valve Pulmonic valve is poorly visualized. Great Vessels Aortic root is normal size. Pericardium No significant pericardial effusion noted. Conclusion 1. Mild mitral enlargement, normal left ventricular size, mild concentric left ventricular hypertrophy, visually estimated ejection fraction 55% with no regional wall motion abnormality, grade 1 diastolic dysfunction seen without tissue Doppler evidence of raise left atrial pressure. 2. Mildly enlarged right ventricle with normal contractility. 3. Mild mitral and tricuspid regurgitation. 4. No significant pericardial effusion noted. Electronically signed by : Fernando Phan, 04/09/2019 19:09:53
--- NOTE | 2019-04-10 05:01 | Electrocardiograph Report ---
APPROVED REPORT Exam: Resting ECG HR:60 bpm ECG Measurements Heart Rate 60 AXES TX 188 P 27 QRSd 106 QRS -34 QT 448 T10 QTc 448 <Conclusion> Normal sinus rhythm Left axis deviation Abnormal ECG Electronically signed by : Syed Modi, 04/10/2019 05:01:41
== END 2019-04-09 11:40 | disposition home or self-care (01) ==
LOC: 2ND 08:16 → ER 08:16 → 2ND 10:27
PROVIDERS: ADMIT Emergency Medicine; ATTEND Emergency Medicine
CPT/HCPCS: 36415; 71020; 71046; 80048; 81001; 83605; 84484; 85025; 87040; 87077; 87086; 87186; 93005; 93306; 96365; 99285; G0378; J1335

== ENCOUNTER 2019-10-23 11:30 | Inpatient (IN) | payer MEDICARE, SELFPAY ==
[2019-10-23] VITALS (14 sets, daily range): BP systolic 87–155; BP diastolic 52–89; PULSE 61–96; RESP 16–18; TEMP 36.4–36.7; O2SAT 93–100; BMI 28.0; BMI 29.7
--- NOTE | 2019-10-23 11:26 | ECG_ITS ---
APPROVED REPORT Exam: Resting ECG HR:65 bpm ECG Measurements Heart Rate 65 AXES QRSd 108 QRS -34 QT 442 T 7 QTc 459 <Conclusion> Atrial fibrillation Left axis deviation Nonspecific ST abnormality, probably digitalis effect Abnormal ECG Electronically signed by : Bunny Wong, 10/23/2019 14:56:43
--- NOTE | 2019-10-23 11:43 | XR_ITS ---
PROCEDURE: XR CHEST PORTABLE CLINICAL HISTORY: soa Chest pain and shortness of air COMPARISON: CR CXR2 XR chest AP from 06/12/2017 CR XR CHEST PORTABLE from 11/26/2018 CR XR CHEST 2V from 04/08/2019 FINDINGS: There is cardiomegaly without failure. There are low lung volumes and there is lordotic positioning. No lobar consolidation or collapse. No acute bony findings. IMPRESSION: Low lung volumes with cardiomegaly without failure Dictated b Edwar Mckay MD 10/23/2019 12:24 Edwar Mckay MD in [place] 10/23/2019 12:24
[2019-10-23 12:07] LABS: Basophils % 0.6 % (0.1-2.0); Eosinophils # 0.3 K/mm3 (0.0-0.4); Eosinophils % 5.4 % (0.1-12.0); Hemoglobin 10.6 g/dL (14.1-18.0); Lymphocytes # 1.5 K/mm3 (0.7-4.5); Lymphocytes % 31.2 % (10-50); Mean Corpuscular Hemoglobin 30.1 pg (27.0-31.2); Mean Corpuscular Volume 91.3 fl (80-94); Mean Platelet Volume 8.2 fl (7.4-10.4); Monocytes # 0.3 K/mm3 (0.1-1.0); Monocytes % 5.7 % (1.7-9.3); Neutrophils # 2.8 K/mm3 (1.8-7.8); Platelet Count 200 K/mm3 (142-424); Red Cell Distribution Width 14.2 % (11.5-17.5); White Blood Count 4.8 K/mm3 (4.8-10.8)
[2019-10-23 12:10] LABS: Anion Gap 14.9 mEq/L (5-15); Blood Urea Nitrogen 43 mg/dl (9-20); Calcium 8.7 mg/dl (8.4-10.2); Carbon Dioxide 23 mmol/L (22.0-30.0); Chloride 105 mmol/L (98-107); Creatinine Clearance Estimated 31 mL/min (50-200); Estimated Glomerular Filt Rate 19 ml/min (>60); GFR (African American) 23 ML/MIN (>60); Glucose 160 mg/dl (74-100); Potassium 3.9 mmoL/L (3.5-5.1); Sodium 139 mmol/L (136-145)
[2019-10-23 12:23] LABS: Troponin I 0.01 ng/ml (0.00-0.034)
--- NOTE | 2019-10-23 12:39 | PC.NURSE ---
called [facility] and asked him to come see the patient
--- NOTE | 2019-10-23 13:03 | HMH.CNCARD ---
History of Present Illness Consult date: 10/23/19 Requesting physician: Shaquille Bowden Consult reason: chest pain Chief complaint: chest pain Additional Medical History:: 1. Blind 2. HTN A. Echo, 11/2018, 1. Mildly biatrial enlargement, normal left ventricular size, mild concentric left ventricular hypertrophy, visually estimated ejection fraction 55% with no regional wall motion abnormality. Grade 1 diastolic dysfunction seen without tissue Doppler evidence of raise left atrial pressure. 2. Mildly enlarged right ventricle with normal contractility. 3. Mild mitral and tricuspid regurgitation, calculated right ventricular systolic pressure is 50 mmHg consistent with moderate pulmonary hypertension. 4. No significant pericardial effusion noted 3. Hyperlipidemia, on statin 4. CKD, stage III, Cr about 2 and GFR of about 30 5. ERIC induced cough, 03/2019 6. History of DVT 7. CAD with history of LAD stent A. [facility], 06/2017, 1. The left main artery normal 2. The left anterior descending artery has very proximal stent which is widely patent free of in-stent restenosis. Immediately distal to the stent is a Concentric 30% stenosis followed by a mid vessel 40-50% stenosis. The vessel is tortuous 3. The circumflex artery is codominant and has mild luminal irregularities within mid vessel 20% stenosis 4. The right coronary artery is codominant very tortuous with 20% mid vessel stenoses 5. The JIMENEZ ventriculogram reveals normal 60% 6. The left ventricular end-diastolic pressure 20 mmHg B. [facility], 12/2018, due to abnormal stress test. The left main artery Normal The left anterior descending artery Has proximal 30 to 40% stenosis followed by a stent in the midsegment which is widely patent. Distal to the stent there is a 40% tapering into the [place] vessel. A large first diagonal artery has proximal 40% stenosis The circumflex artery Is a large codominant vessel and has 10% diffuse luminal irregularities The right coronary artery Is codominant and has proximal 20 to 30% stenosis mild 10% mid vessel stenoses The JIMENEZ ventriculogram reveals Normal 65% The left ventricular end-diastolic pressure Severely elevated at 30 mmHg 8. Newly diagnosed A. fibrillation with CVR, EKG, 10/23/2019 A. CHADS VASC score of 3 (Age, history of diastolic CHF, HTN) History of present illness: 69-year-old black male resident of [facility] was sent to the ER for further evaluation of chest pain. Patient states after eating breakfast this morning he began feeling some right upper quadrant right-sided and substernal chest discomfort that radiating up into the neck with associated nausea, diaphoresis and weakness. Patient relates some episode of diarrhea earlier this morning as well. He denies any passing out. In the ER patient was found to have elevated renal functions with a creatinine of 3.2 and a GFR of 19. EKG showed atrial fibrillation with controlled ventricular response and initial troponin is normal. Hemoglobin 10.6 and chest x-ray showed no evidence of congestive heart failure. Cardiology consulted for evaluation of chest pain with known history of coronary disease and prior stenting. [facility] History Medical History: Reports:: Coronary Artery Disease, Deep Vein Thrombosis, Hyperlipidemia, Hypertension, Renal Insufficiency, Urinary Tract Infection Denies:: Cancer, Diabetes Mellitus Type 1, Diabetes Mellitus Type 2, Internal Pacemaker, MRSA, Seizures *Have you ever received a pneumonia vaccine?: No *Have you received a flu vaccine this season?: No Other Medical History: Denies: Blood Transfusion Reaction Laterality Cases: Right: Arthroscopy Knee Other Surgeries: Yes: Cardiac Catheterization, Coronary Stent, Skin Cancer Excision, Other (blood clot in leg in the past). No: Pacemaker Amputation: No Fractures: No - *Social History Smoking Status: Former smoker Tobacco Type: cigarettes # Packs/Day (cigarettes): 1 Alcohol Intake: never S
[2019-10-23 13:25] LABS: Adenovirus,PCR Not Detected (NotDetected); Bordetella Pertussis Not Detected (NotDetected); Chlamydophila Pneumoniae, PCR Not Detected (NotDetected); Coronavirus 19, PCR Not Detected (NotDetected); Coronavirus 229E Not Detected (NotDetected); Coronavirus NL63 Not Detected (NotDetected); Coronavirus OC43 Not Detected (NotDetected); Coronovirus HKU1,PCR Not Detected (NotDetected); Human Metapneumovirus Not Detected (NotDetected); Influenza A, PCR Not Detected (NotDetected); Influenza AH1, 2009 Not Detected (NotDetected); Influenza AH1, PCR Not Detected (NotDetected); Influenza AH3,PCR Not Detected (NotDetected); Influenza B, PCR Not Detected (NotDetected); Mycoplasma Pneumoniae, PCR Not Detected (NotDetected); Parainfluenza 1, PCR Not Detected (NotDetected); Parainfluenza 2, PCR Not Detected (NotDetected); Parainfluenza 3, PCR Not Detected (NotDetected); Parainfluenza 4, PCR Not Detected (NotDetected); Respiratory Syncytial Virus Not Detected (NotDetected); Rhinovirus/Enterovirus Not Detected (NotDetected)
--- NOTE | 2019-10-23 13:28 | PC.NURSE ---
spoke with Dr. Bowden and I notified CV lab of echo
--- NOTE | 2019-10-23 13:30 | PC.NURSE ---
called care management for admission status
--- NOTE | 2019-10-23 13:31 | PC.NURSE ---
called house for bed
--- NOTE | 2019-10-23 13:48 | HMH.EDCP ---
ED Disposition Clinical Impression: Atypical chest pain, Stable angina, Renal insufficiency, Acute kidney injury Disposition: Admitted as Observation Condition on Discharge: Good Instructions: DI for Chronic Pain -- Adult Referrals: Shaquille Bowden MD [Primary Care Provider] - - Critical Care Critical Care Time: No Attestation: On 10/23/19, the high probability of a clinically significant, sudden or life threatening deterioration of the following system(s) required my full and direct attention, intervention and personal management. The time I documented below is in addition to time spent performing reported procedures but includes the following listed in this critical care notation. Medical Decision Making - Medical Records Medical records reviewed: Yes: I reviewed the patient's medical records. - River Inquiry Pt receiving controlled substance: No Vital Signs: 10/23/19 11:38 10/23/19 12:08 10/23/19 12:30 Temperature 98.1 F Temperature Source Oral Pulse Rate [Right] 64 62 61 Respiratory Rate 17 17 17 Blood Pressure [Right Arm] 87/60 L 87/53 L 88/52 L Blood Pressure Mean [Right Arm] 69 64 64 02 Sat by Pulse Oximetry 96 93 L 98 Oxygen Delivery Method 10/23/19 13:00 10/23/19 13:30 Temperature Temperature Source Pulse Rate [Right] 68 65 Respiratory Rate 16 16 Blood Pressure [Right Arm] 96/68 L 104/60 L Blood Pressure Mean [Right Arm] 77 74 02 Sat by Pulse Oximetry 95 95 Oxygen Delivery Method Room Air - Lab Data Lab results reviewed: Yes: I reviewed the patient's lab results. Lab Results 10/23/19 11:55: WBC 4.8, RBC 3.50 L, Hgb 10.6 L, Hct 32.0 L, MCV 91.3, MCH 30.1, MCHC 33.0, RDW 14.2, Plt Count 200, MPV 8.2, Neut % (Auto) 57.0, Lymph % (Auto) 31.2, Russell % (Auto) 5.7, Eos % (Auto) 5.4, Baso % (Auto) 0.6, Neut # (Auto) 2.8, Lymph # (Auto) 1.5, Russell # (Auto) 0.3, Eos # (Auto) 0.3, Baso # (Auto) 0.0 10/23/19 11:55: Sodium 139, Potassium 3.9, Chloride 105, Carbon Dioxide 23, Anion Gap 14.9, BUN 43 H, Creatinine 3.20 H, Estimated Creat Clear 31, Estimated GFR 19 L*, Est GFR ( Amer) 23 L, Glucose 160 H, Calcium 8.7, Troponin I 0.01 Result diagrams: 10/23/19 11:55 10/23/19 11:55 Orders (Tests/Meds): ED MEDICATIONS Generic Name Dose Route Start Last Admin Trade Name Freq PRN Reason Stop Dose Admin Sodium Chloride 1,000 mls @ 999 mls/hr 10/23/19 13:15 10/23/19 13:09 Sod Chlor 0.9% 1000ml Bag IV 10/23/19 14:15 999 mls/hr .Q1H1M HOLLAND Administration Discontinued Medications Generic Name Dose Route Start Last Admin Trade Name Freq PRN Reason Stop Dose Admin Enoxaparin Sodium 100 mg 10/23/19 13:35 10/23/19 13:42 Lovenox 100mg/Ml Syringe SQ 10/23/19 13:36 100 mg ONCE ONE Administration Sodium Chloride 1,000 mls @ 999 mls/hr 10/23/19 12:00 10/23/19 11:56 Sod Chlor 0.9% 1000ml Bag IV 10/23/19 13:00 999 mls/hr .Q1H1M HOLLAND Administration ORDERS Category Date Time Status Dailey [Full Resp Panel (COVID)(INPT)] Routine Lab 10/23/19 13:15 Received Thyroid Panel Stat Lab 10/23/19 13:32 Ordered Troponin I Q3H Lab 10/23/19 14:45 Ordered Troponin I Q3H Lab 10/23/19 17:45 Ordered Urinalysis and Microscopic Stat Lab 10/23/19 13:33 Ordered CA echo doppler complete Routine Y 10/24/19 07:00 Ordered ECG Request by /Bambi Stat Y 10/23/19 11:43 Ordered - ECG Data Tracing #1 I reviewed this ECG and interpreted as documented below: ECG normal with no acute: arrhythmias, ischemia, conduction abnormalities, chamber hypertrophy Arrhythmias present: afib - DAFNE Score for Non-Stemi Age of Patient: 70-79 years old Heart Rate: 50-69 bpm Systolic Blood Pressure: 80-99 mmHg Serum Creatinine: 2.00-3.99 mg/dl CHF Kill[place] Class: I-No CHF Other Risk Factors: None Non-Stemi Risk Score: 152 Risk Stratification: [id number] = High Risk Medical Decision Narrative: Cardiology came over and consulted on this patient. Patient will get an
[2019-10-23 14:14] LABS: Free Thyroxine Index 1.9 ug/dL (5.93-13.13); T4 (Thyroxine) 5.3 ug/dl (5.53-11.0); Triiodothryronine (T3) Uptake 36 % (23.5-40.5)
[2019-10-23 14:28] LABS: Thyroid Stimulating Hormone 2.03 uIU/mL (0.465-4.68)
--- NOTE | 2019-10-23 14:48 | PC.NURSE ---
Pt boarding in ER waiting for coronavirus swab to come back, 2nd floor notified, lab stated it would be another 75 minutes
--- NOTE | 2019-10-23 14:54 | PC.NURSE ---
lAB ADVISED COVID TEST RESULTS WOULD BE 75 MINS
--- NOTE | 2019-10-23 15:03 | HMH.PHAVTE ---
[facility] Pharmacy VTE Monitoring - Patient Demographics Admission date: 10/23/19 Report Date: 10/23/19 Time: 15:03 Allergies/Adverse Reactions: Patient Allergies No Known Allergies Allergy (Verified 05/10/19 13:25) Height: 1.93 m Weight: 104.326 kg Patient Problems: Current Active Problems Renal insufficiency (Acute) Nausea (Acute) Diaphoresis (Acute) Atrial fibrillation with normal ventricular rate (Acute) Atypical chest pain (Acute) Stable angina (Acute) Acute kidney injury (Acute) - VTE Risk Labs: VTE Related Lab Results Hgb 10.6 g/dL (14.1-18.0) L 10/23/19 11:55 Hct 32.0 % (42.0-52.0) L 10/23/19 11:55 Plt Count 200 K/mm3 (142-424) 10/23/19 11:55 BUN 43 mg/dl (9-20) H 10/23/19 11:55 Creatinine 3.20 mg/dl (0.66-1.25) H 10/23/19 11:55 Estimated Creat Clear 31 mL/min (50-200) 10/23/19 11:55 - Prophylaxis VTE Prophylaxis Ordered?: Yes Types of VTE Prophylaxis: TEDS Knee High Location of Applied Device: Bilateral Lower Extremeties - VTE Diagnosis Confirmed Treatment or plan recommended: Continue Current Treatment
[2019-10-23 15:32] LABS: Troponin I < 0.01 ng/ml (0.00-0.034)
--- NOTE | 2019-10-23 15:55 | PC.NURSE ---
Pt eating at this time
--- NOTE | 2019-10-23 16:42 | PC.NURSE ---
Pt arrived to the floor at this time via wheel chair.
[2019-10-23 16:45] LABS: Microscopic, Urine URINE MICROSCOPIC (MICROSCOPIC)
[2019-10-23 16:47] LABS: Appearance,Urine CLEAR (Clear); Bilirubin,Urine Negative (Negative); Blood, Urine Negative (Negative); Color,Urine YELLOW (Yellow); Glucose,Urine (UA) Negative (Negative); Ketones,Urine Negative (Negative); Leukocyte Esterase,Urine Negative (Negative); Nitrate,Urine Negative (Negative); Protein,Urine Negative (Negative); Urobilinogen,Urine 0.2 EU/dl (0.2)
--- NOTE | 2019-10-23 16:47 | PC.NURSE ---
Report given to Bruno Benson RN and Duane Dickson RN.
[2019-10-23 17:00] LABS: WBC,Urine Occasional #/hpf (0-3)
--- NOTE | 2019-10-23 17:49 | PC.NURSE ---
MED REC COMPLETED IN ER. PT UNSURE OF EXACT MEDICATIONS
[2019-10-23 18:08] LABS: Troponin I < 0.01 ng/ml (0.00-0.034)
--- NOTE | 2019-10-23 18:18 | PC.NURSE ---
PT AO*4 BUT IS LEGALLY BLIND, HE USES A WALKING CANE FOR AMBULATION TO THE RESTROOM. ADMITTED FROM ER FOR CHEST PAIN. PT DENIES CHEST PAIN AT THIS TIME. O2 SAT 96 ON RA, DENIES SOA, DIZZINESS, N/V/D, PT REQUIRES ORIENTATION TO ROOM WHEN AMBULATING, CONTROLLED AFIB ON TELE, IV ACCESS #20 IN RFA WITH NS @ 75, #20 LFA SL. PT BELONGINGS LOCKED IN MED DRAWER. MED REC COMPLETED IN THE ER, PT UNABLE TO CONFIRM HOME MEDS AND DID NOT BRING THEM WITH HIM. PT STATES NO NEEDS AT THIS TIME, PT EDUCATED ON IMPORTANCE OF CALL BOLIVAR, WILL CONTINUE TO MONITOR.
--- NOTE | 2019-10-23 20:13 | HMH.HP ---
*Admission Date: 10/23/19 *Chief complaint: chest pain *History of present illness: this pt with [facility] of [facility] pain at local [facility] -he had chest pain -pleasant 69-year-old gentleman presents to the ED from [facility]. His chief complaint is chest pain. He states he was eating breakfast this morning and started developed some pain in the right side of his upper abdomen radiating to the center of his chest. He states that this sudden onset was right after his meal. He also stated that he felt somewhat of a nauseous sensation but he had no episodes of emesis. Patient also states that the pain did not go anywhere but may be over to the right slightly on his chest. Patient states he did not get short of breath. Patient also states he felt some diaphoresis but not overt diaphoresis. Patient also states that he had a previous stent placed here at our facility roughly maybe 1 year or 2 years ago. Patient also states he has hypertension. Patient also states that he did quit smoking but has smoked some in the past. Patient denies any sore throat or headache. Patient denies any body aches or malaise. Patient denies any shortness of breath. Patient also denies any fever shakes or chills. pt was seen in the ed and will be admitted for eval and treatment as was noted to have new onset of a fib H History I have reviewed the patient's past medical history: Yes Medical History: Reports:: Coronary Artery Disease, Deep Vein Thrombosis, Hyperlipidemia, Hypertension, Renal Insufficiency, Urinary Tract Infection Denies:: Cancer, Diabetes Mellitus Type 1, Diabetes Mellitus Type 2, Internal Pacemaker, MRSA, Seizures *Have you ever received a pneumonia vaccine?: Yes *Have you received a flu vaccine this season?: Yes Other Medical History: Reports: Arthritis. Denies: Blood Transfusion Reaction Laterality Cases: Right: Arthroscopy Knee, Total Knee Replacement Other Surgeries: Yes: Appendectomy, Cardiac Catheterization, Cardiac Surgery, Coronary Stent, Skin Cancer Excision, Other (blood clot in leg in the past). No: Pacemaker Amputation: No Fractures: No - *Social History Last grade of school completed: 11th or 12th Smoking Status: Former smoker Tobacco Type: cigarettes # Packs/Day (cigarettes): 1 Alcohol Intake: never Substance Use Type: denies use *Occupational Status:: disabled Housing: apartment Household Members: none *Travel in the last 8 weeks: None Family Hx:: Cancer, Diabetes, Heart Attack Review of Systems - Review of Systems Review of systems:: pertinent systems reviewed and negative unless documented below - Constitutional Denies fever(s) - Eyes Denies pain - ENT Denies sore throat - *Cardiovascular Reports chest pain at rest - *Respiratory Denies cough - *Gastrointestinal Denies abdominal pain - *Genitourinary Denies blood in urine - *Musculoskeletal Denies joint pain - Integumentary/Breasts Denies rash - *Neurologic Reports abnormal hearing, Denies seizure-like activity - Psychiatric Denies anxiety Meds Home Medications Medication Instructions Recorded Confirmed Type Loratadine [Claritin] 10 mg PO DAILY 06/12/17 10/23/19 History Metoprolol Succinate [Toprol Xl 200 mg PO DAILY 06/12/17 10/23/19 History 200mg Tablet] timolol maleate 0.5 % eye drops 1 drp OPHTHALMIC DAILY 30 Days #10 06/16/17 10/23/19 History OXcarbazepine [Trileptal 300mg 300 mg PO BID 08/20/18 10/23/19 History tablet] cloNIDine HCL [cloNIDine 0.1mg 0.1 mg PO 0900,1700,2100 08/20/18 10/23/19 History Tablet] spironolactone 25 mg tablet 25 mg PO DAILY 01/02/19 10/23/19 History Acetaminophen [Acetaminophen 325mg 650 mg PO Q4HP PRN 04/08/19 10/23/19 History tab] Amlodipine Besylate [Amlodipine 10 mg PO DAILY 04/08/19 10/23/19 History 10mg Tab] Aspirin [Aspirin 81mg chewable 81 mg PO DAILY 04/08/19 10/23/19 History tab] Furosemide [Furosemide 40MG tAB] 40 mg PO DAILY 04/08/19
[2019-10-24] VITALS (10 sets, daily range): BP systolic 102–189; BP diastolic 76–113; PULSE 57–90; RESP 16–20; TEMP 36.7–37; O2SAT 95–99; BMI 29.1
--- NOTE | 2019-10-24 05:58 | PC.NURSE ---
A&O TO NAME, BIRTHDAY, AND PLACE. PT HAS TOLERATED ROOM AIR WELL THROUGHOUT SHIFT. RESPIRATIONS REGULAR AND UNLABORED. LUNG SOUNDS BILATERALLY CLEAR. NO COUGH NOTED. PT HAS REMAINED ON TELE THROUGHOUT SHIFT. NSR W FIRST DEGREE BLOCK NOTED. REGULAR HEART RATE. HAND STAGE BUILDER EQUAL. PT AMBULAES TO THE RESTROOM PER WHITE STICK AND STANDBY ASSISTANCE. PT RECEIVED BATH AND LINEN CHANGE. PT VOIDS PER URINAL. CLEAR YELLOW URINE NOTED IN URINAL. NO BM REPORTED. ACTIVE BOWEL SOUNDS HEARD IN ALL 4 QUADRANTS. SOFT AND NONTENDER ABDOMEN. NONPITTING EDEMA NOTED TO BLE. TEDS IN PLACE. NS INFUSING AT 75ML/HR. PT HAS RESTED WELL THIS SHIFT. PT COMPLAINED OF PAIN 4/10 IN RUQ. ADMINISTERED TYLENOL 650MG PER MAR AND ON REASSESSMENT, PT STATED PAIN WAS BETTER AND TOLERABLE. PT CURRENTLY SLEEPING AT THIS TIME WITH CALL LIGHT WITHIN REACH. BED IN LOWEST POSITION. VSS. NO CONCERNS AT THIS TIME. WILL CONTINUE TO MONITOR.
--- NOTE | 2019-10-24 07:00 | CA_ITS ---
APPROVED REPORT EXAM: Comprehensive 2D, Doppler, and color-flow Echocardiogram Kick Plate Installer: Stefania Etienne RDCS Ht: 6 ft 4 in Wt: 230lbs BSA: 2.35 BP: 88/53 mmHg Indications: AF,CAD,HTN 2D Dimensions LVOT 2.16 cm (M/F) 1.5-2.5 M-Mode Dimensions RVDd 3.30 cm (0.9-2.6) LVDd 5.93 cm (3.5-5.7) LVDs 4.60 cm (3.5-5.7) IVSd 1.25 cm (0.6-1.1) PWd 1.03 cm (0.6-1.1) EF (Teich) 44.50% FS 22.40% EDV (Teich) 175.20 mL ESV (Teich) 97.30 mL LV Diastology E/A Ratio 0.99 Mitral Valve MV A Velocity 57.00 (40-130 cm/s) Left Ventricle Left atrium is mildly enlarged, left ventricle is normal size, mild concentric left ventricular hypertrophy, visually estimated ejection fraction 55% with no regional wall motion abnormality, grade 1 diastolic dysfunction seen without tissue Doppler evidence of raise left atrial pressure. Right Ventricle Right atrium and right ventricle are mildly enlarged with normal contractility. Aortic Valve Aortic valve is minimally thickened and fibrosed. There is no aortic stenosis or aortic insufficiency. Mitral Valve Mitral valve is minimally thickened, there is mild mitral regurgitation. Tricuspid Valve Tricuspid valve is grossly normal, there is mild tricuspid regurgitation, tricuspid regurgitation jet velocity is inadequate for calculation of the right ventricular systolic pressure. Pulmonic Valve Pulmonic valve is poorly visualized. Great Vessels Aortic root is normal size. Pericardium No significant pericardial effusion noted. Conclusion 1. Biatrial enlargement, normal left ventricular size, mild concentric left ventricular hypertrophy, visually estimated ejection fraction 55% with no regional wall motion abnormality, grade 1 diastolic dysfunction seen without tissue Doppler evidence of raise left atrial pressure. 2. Mildly enlarged right ventricle with normal contractility. 3. Mild mitral and tricuspid regurgitation. 4. No significant pericardial effusion noted. Electronically signed by : Fernando Phan, 10/25/2019 11:36:53
[2019-10-24 07:28] LABS: Basophils % 0.5 % (0.1-2.0); Eosinophils # 0.3 K/mm3 (0.0-0.4); Eosinophils % 5.3 % (0.1-12.0); Hemoglobin 10.9 g/dL (14.1-18.0); Lymphocytes # 1.3 K/mm3 (0.7-4.5); Lymphocytes % 23.3 % (10-50); Mean Corpuscular Hemoglobin 29.8 pg (27.0-31.2); Mean Corpuscular Volume 90.5 fl (80-94); Mean Platelet Volume 8.9 fl (7.4-10.4); Monocytes # 0.3 K/mm3 (0.1-1.0); Monocytes % 5.5 % (1.7-9.3); Neutrophils # 3.5 K/mm3 (1.8-7.8); Neutrophils % 65.4 % (37.0-80.0); Platelet Count 195 K/mm3 (142-424); Red Blood Count 3.65 M/mm3 (4.60-6.20); Red Cell Distribution Width 14.3 % (11.5-17.5); White Blood Count 5.4 K/mm3 (4.8-10.8)
[2019-10-24 07:31] LABS: Chloride 113 mmol/L (98-107); Sodium 143 mmol/L (136-145)
[2019-10-24 07:32] LABS: Potassium 4.2 mmoL/L (3.5-5.1)
[2019-10-24 07:34] LABS: Alanine Aminotransferase 29 U/L (12-78); Alkaline Phosphatase 67 U/L (38-126); Aspartate Amino Transferase 37 U/L (17-59); Bilirubin,Total 0.3 mg/dl (0.2-1.3); Blood Urea Nitrogen 34 mg/dl (9-20); Creatinine Clearance Estimated 43 mL/min (50-200); Estimated Glomerular Filt Rate 27 ml/min (>60); GFR (African American) 32 ML/MIN (>60)
[2019-10-24 07:35] LABS: Albumin Level 3.8 g/dl (3.5-5.0); Albumin/Globulin Ratio 1.1 (1.1-1.8); Anion Gap 14.2 mEq/L (5-15); Calcium 9.1 mg/dl (8.4-10.2); Carbon Dioxide 20 mmol/L (22.0-30.0); Globulin 3.5 g/dL (1.3-3.2); Glucose 100 mg/dl (74-100); Total Protein,Serum 7.3 g/dl (6.3-8.2)
--- NOTE | 2019-10-24 09:57 | HMH.PNCARD ---
Subjective Date: 10/24/19 Time: 09:57 Principal diagnosis: acute renal insuff, new A. fib Interval history: 69-year-old black male in bed in no acute distress. No further chest pain. Blood pressure has gone from being hypotensive to now hypertensive after holding his medications yesterday. His creatinine has improved from greater than 3 down to 2.4 today. Exam Vital signs and Labs for Last 24 Hours: Temp Pulse Resp BP Pulse Ox 98.2 F 81 18 189/113 H 96 10/24/19 07:52 10/24/19 07:52 10/24/19 07:52 10/24/19 07:52 10/24/19 07:52 Laboratory Results - last 24 hr 10/23/19 11:55: WBC 4.8, RBC 3.50 L, Hgb 10.6 L, Hct 32.0 L, MCV 91.3, MCH 30.1, MCHC 33.0, RDW 14.2, Plt Count 200, MPV 8.2, Neut % (Auto) 57.0, Lymph % (Auto) 31.2, Patrick % (Auto) 5.7, Eos % (Auto) 5.4, Baso % (Auto) 0.6, Neut # (Auto) 2.8, Lymph # (Auto) 1.5, Patrick # (Auto) 0.3, Eos # (Auto) 0.3, Baso # (Auto) 0.0 10/23/19 11:55: Sodium 139, Potassium 3.9, Chloride 105, Carbon Dioxide 23, Anion Gap 14.9, BUN 43 H, Creatinine 3.20 H, Estimated Creat Clear 31, Estimated GFR 19 L*, Est GFR ( Amer) 23 L, Glucose 160 H, Calcium 8.7, Troponin I 0.01 10/23/19 11:55: TSH 2.03, Free T4 Index 1.9 L, Thyroxine (T4) 5.3 L, T3 Uptake 36 10/23/19 13:15: Chlamy pneumoniae PCR Not detected, Adenovirus (PCR) Not detected, B. pertussis DNA (PCR) Not detected, Coronavirus OC43 (PCR) Not detected, Coronavirus HKU1 (PCR) Not detected, Coronavirus 229E (PCR) Not detected, COVID-19 PCR Not detected, Coronavirus NL63 (PCR) Not detected, Human Metapneumovir PCR Not detected, Influenza A (H1) PCR Not detected, Influ A (H1N1/09) PCR Not detected, Influenza A (H3) PCR Not detected, Influenza Type A (PCR) Not detected, Influenza Type B (PCR) Not detected, M. pneumoniae (PCR) Not detected, Parainfluenza 1 (PCR) Not detected, Parainfluenza 2 (PCR) Not detected, Parainfluenza 3 (PCR) Not detected, Parainfluenza 4 (PCR) Not detected, RSV (PCR) Not detected, Entero/Rhino (PCR) Not detected 10/23/19 14:55: Troponin I < 0.01 10/23/19 16:42: Urine Color Yellow, Urine Appearance Clear, Urine pH 6.0, Ur Specific [place] 1.010, Urine Protein Negative, Urine Glucose (UA) Negative, Urine Ketones Negative, Urine Blood Negative, Urine Nitrate Negative, Urine Bilirubin Negative, Urine Urobilinogen 0.2, Ur Leukocyte Esterase Negative, Urine RBC 3-5, Urine WBC Occasional, Ur Squamous Epith Cells 3-5, Urine Bacteria None 10/23/19 17:29: Troponin I < 0.01 10/24/19 07:14: WBC 5.4, RBC 3.65 L, Hgb 10.9 L, Hct 33.0 L, MCV 90.5, MCH 29.8, MCHC 33.0, RDW 14.3, Plt Count 195, MPV 8.9, Neut % (Auto) 65.4, Lymph % (Auto) 23.3, Patrick % (Auto) 5.5, Eos % (Auto) 5.3, Baso % (Auto) 0.5, Neut # (Auto) 3.5, Lymph # (Auto) 1.3, Patrick # (Auto) 0.3, Eos # (Auto) 0.3, Baso # (Auto) 0.0 10/24/19 07:14: Sodium 143, Potassium 4.2, Chloride 113 H, Carbon Dioxide 20 L, Anion Gap 14.2, BUN 34 H, Creatinine 2.40 H D, Estimated Creat Clear 43, Estimated GFR 27 L, Est GFR ( Amer) 32 L D, Glucose 100 D, Calcium 9.1, Total Bilirubin 0.3, AST 37, ALT 29, Alkaline Phosphatase 67, Total Protein 7.3, Albumin 3.8, Globulin 3.5 H, Albumin/Globulin Ratio 1.1 I & O for Last 24 hours: Intake & Output 10/21/19 10/22/19 10/23/19 10/24/19 11:59 11:59 11:59 11:59 Intake Total 2922 / 2922 Output Total 1650 / 1650 Balance 1272 / 1272 Weight 230 lb 239 lb 2 oz - *Routine Respiratory Exam Present: CTA bilaterally. Absent: accessory muscle use, rales, rhonchi, wheezes - *Routine Cardiovascular Exam Present: RRR. Absent: murmur, gallop, rubs - *Routine Neurological Exam Present: alert, oriented X3, moving all extremities Progress Note: A&P (1) Nausea Status: Acute Current Visit: Yes (2) Diaphoresis Status: Acute Current Visit: Yes (3) Atrial fibrillation with normal ventricular rate Status: Acute Current Visit: Yes (4) Chest pain Status: Acute Current Visit: No (5) Renal insufficiency Status: Acute
--- NOTE | 2019-10-24 10:22 | ECG_ITS ---
APPROVED REPORT Exam: Resting ECG HR:70 bpm ECG Measurements Heart Rate 70 AXES NC 194 P 84 QRSd 100 QRS -11 QT 414 T 53 QTc 447 <Conclusion> Normal sinus rhythm Normal ECG Electronically signed by : Syed Modi, 10/24/2019 12:24:43
--- NOTE | 2019-10-24 10:28 | HMH.ACPN2 ---
Internal Medicine - PN: Subj *Date: 10/24/19 *Time: 10:28 Interval history: 69-year-old man resting quietly with eyes closed, awakens to verbal stimuli. Denies chest pain this morning reports he does feel better. Cardiology has seen a.m. hypertensive medication held medication, then partially restarted after hypertensive this morning. In the ED BUN 43, creatinine 3.2, now BUN 34 creatinine 2.4. Exam Vital signs and Labs for Last 24 Hours: Temp Pulse Resp BP Pulse Ox 98.2 F 81 18 189/113 H 96 10/24/19 07:52 10/24/19 07:52 10/24/19 07:52 10/24/19 07:52 10/24/19 07:52 Laboratory Results - last 24 hr 10/23/19 11:55: WBC 4.8, RBC 3.50 L, Hgb 10.6 L, Hct 32.0 L, MCV 91.3, MCH 30.1, MCHC 33.0, RDW 14.2, Plt Count 200, MPV 8.2, Neut % (Auto) 57.0, Lymph % (Auto) 31.2, [place] % (Auto) 5.7, Eos % (Auto) 5.4, Baso % (Auto) 0.6, Neut # (Auto) 2.8, Lymph # (Auto) 1.5, [place] # (Auto) 0.3, Eos # (Auto) 0.3, Baso # (Auto) 0.0 10/23/19 11:55: Sodium 139, Potassium 3.9, Chloride 105, Carbon Dioxide 23, Anion Gap 14.9, BUN 43 H, Creatinine 3.20 H, Estimated Creat Clear 31, Estimated GFR 19 L*, Est GFR ( Amer) 23 L, Glucose 160 H, Calcium 8.7, Troponin I 0.01 10/23/19 11:55: TSH 2.03, Free T4 Index 1.9 L, Thyroxine (T4) 5.3 L, T3 Uptake 36 10/23/19 13:15: Chlamy pneumoniae PCR Not detected, Adenovirus (PCR) Not detected, B. pertussis DNA (PCR) Not detected, Coronavirus OC43 (PCR) Not detected, Coronavirus HKU1 (PCR) Not detected, Coronavirus 229E (PCR) Not detected, COVID-19 PCR Not detected, Coronavirus NL63 (PCR) Not detected, Human Metapneumovir PCR Not detected, Influenza A (H1) PCR Not detected, Influ A (H1N1/09) PCR Not detected, Influenza A (H3) PCR Not detected, Influenza Type A (PCR) Not detected, Influenza Type B (PCR) Not detected, M. pneumoniae (PCR) Not detected, Parainfluenza 1 (PCR) Not detected, Parainfluenza 2 (PCR) Not detected, Parainfluenza 3 (PCR) Not detected, Parainfluenza 4 (PCR) Not detected, RSV (PCR) Not detected, Entero/Rhino (PCR) Not detected 10/23/19 14:55: Troponin I < 0.01 10/23/19 16:42: Urine Color Yellow, Urine Appearance Clear, Urine pH 6.0, Ur Specific [place] 1.010, Urine Protein Negative, Urine Glucose (UA) Negative, Urine Ketones Negative, Urine Blood Negative, Urine Nitrate Negative, Urine Bilirubin Negative, Urine Urobilinogen 0.2, Ur Leukocyte Esterase Negative, Urine RBC 3-5, Urine WBC Occasional, Ur Squamous Epith Cells 3-5, Urine Bacteria None 10/23/19 17:29: Troponin I < 0.01 10/24/19 07:14: WBC 5.4, RBC 3.65 L, Hgb 10.9 L, Hct 33.0 L, MCV 90.5, MCH 29.8, MCHC 33.0, RDW 14.3, Plt Count 195, MPV 8.9, Neut % (Auto) 65.4, Lymph % (Auto) 23.3, [place] % (Auto) 5.5, Eos % (Auto) 5.3, Baso % (Auto) 0.5, Neut # (Auto) 3.5, Lymph # (Auto) 1.3, [place] # (Auto) 0.3, Eos # (Auto) 0.3, Baso # (Auto) 0.0 10/24/19 07:14: Sodium 143, Potassium 4.2, Chloride 113 H, Carbon Dioxide 20 L, Anion Gap 14.2, BUN 34 H, Creatinine 2.40 H D, Estimated Creat Clear 43, Estimated GFR 27 L, Est GFR ( Amer) 32 L D, Glucose 100 D, Calcium 9.1, Total Bilirubin 0.3, AST 37, ALT 29, Alkaline Phosphatase 67, Total Protein 7.3, Albumin 3.8, Globulin 3.5 H, Albumin/Globulin Ratio 1.1 I & O for Last 24 hours: Intake & Output 10/21/19 10/22/19 10/23/19 10/24/19 23:59 23:59 23:59 23:59 Intake Total 2120 / 2120 802 / 802 Output Total 200 / 450 1450 / 1450 Balance 1920 / 1670 -648 / -648 Weight 244 lb 8 oz 239 lb 2 oz - Constitutional no acute distress - *Routine HEENT Exam Head: Present: normocephalic ENT: Present: mucous membranes moist - *Routine Neck Exam Present: trachea midline. Absent: JVD, tracheal deviation - *Routine Respiratory Exam Present: CTA bilaterally. Absent: accessory muscle use - *Routine Cardiovascular Exam Present: RRR - *Routine Abdominal Exam Present: soft, normoactive bowel sounds. Absent: tenderness, firm - *Routine Extremities Exam Present: pulses intact. Absent: edema, yobani
--- NOTE | 2019-10-24 10:56 | SW/DCPLANNER ---
Addendum entered by Raysa Blanca 10/26/19 10:39: I have notified Sabino with [facility] that this patient will discharge back today. Sabino has stated that once patient is medically stable for discharge [facility] will transport patient. Addendum entered by Raysa Blanca 10/25/19 09:39: I have updated Sabino regarding this patient: depending on blood pressure discharge later today or tomorrow. Original Note: This patient currently resides at [facility]. I have spoke with Sabino at [facility] to let her know this patient is currently in AFib and will require medication management with either Xarelto vs Eliquis. Sabino stated she was fine with this plan. I will follow up with Sabino in AM regarding discharge plan and which medication Cardiology will discharge this patient on. Patient could potentially discharge back to [facility] tomorrow.
--- NOTE | 2019-10-24 15:45 | HMH.PHAINT ---
MEDICATION RECONCILIATION COMPLETED ON PATIENT USING MAR FROM [facility]. -STEPHANIE HOFFMAN, YASIRD
--- NOTE | 2019-10-24 18:12 | PC.NURSE ---
PATIENT A&O X4, PULSES EQUAL. AT FIRST VITAL SIGN ASSESSMENT PATIENT HAD A BP OF 189/113. THIS RN PERFORMED A MANUAL BP AND READING WAS 180/110. THIS RN NOTIFIED FRANCESCO LANDA IN PERSON. NO NEW ORDERS AT THAT TIME. NEW MEDICATIONS STARTED SHORTLY AFTER. BLOOD PRESSURE HAS CONTINUED TO BE WNL FOR THIS RN SHIFT. NO OTHER NEEDS OR CONCERNS AT THIS TIME.
[2019-10-25] VITALS (10 sets, daily range): BP systolic 141–190; BP diastolic 83–100; PULSE 56–92; RESP 16–18; TEMP 36.6–37; O2SAT 94–99; BMI 18.6; BMI 29.6
--- NOTE | 2019-10-25 02:36 | PC.NURSE ---
BP 170/100, then 180/98 after one hour. Pt c/o headache. Spoke with Dr. Modi, orders given for Amlodipine 5mg PO x1. Amlodipine and Tylenol administered.
--- NOTE | 2019-10-25 04:26 | PC.NURSE ---
BP 190/92. Informed Dr. Modi, orders received for Clonidine 0.1mg PO x1. Pt reports headache is better since taking Tylenol.
--- NOTE | 2019-10-25 07:45 | HMH.PNCARD ---
Subjective Date: 10/25/19 Time: 07:45 Principal diagnosis: acute renal insuff, new A. fib Interval history: 69-year-old black male in bed in no acute distress. Denies any chest pain, pressure or tightness. A.M. labs are pending this morning. Blood pressure elevated overnight requiring a dose of clonidine. Will restart home clonidine dosing. Exam Vital signs and Labs for Last 24 Hours: Temp Pulse Resp BP Pulse Ox 98.1 F 61 17 150/98 H 94 L 10/25/19 07:32 10/25/19 07:32 10/25/19 07:32 10/25/19 07:32 10/25/19 07:32 I & O for Last 24 hours: Intake & Output 10/22/19 10/23/19 10/24/19 10/25/19 11:59 11:59 11:59 11:59 Intake Total 2922 / 2922 2282 / 2282 Output Total 1650 / 1650 2800 / 2800 Balance 1272 / 1272 -518 / -518 Weight 230 lb 239 lb 2 oz 243 lb 5 oz - *Routine Respiratory Exam Present: CTA bilaterally. Absent: accessory muscle use, rales, rhonchi, wheezes - *Routine Cardiovascular Exam Present: RRR. Absent: murmur, gallop, rubs - *Routine Extremities Exam Absent: edema, calf tenderness - *Routine Neurological Exam Present: alert, oriented X3, moving all extremities Progress Note: A&P (1) Nausea Status: Acute Current Visit: Yes (2) Diaphoresis Status: Acute Current Visit: Yes (3) Atrial fibrillation with normal ventricular rate Status: Acute Current Visit: Yes (4) Chest pain Status: Acute Current Visit: No (5) Renal insufficiency Status: Acute Current Visit: Yes (6) Visual impairment Status: Acute Current Visit: No (7) CAD (coronary artery disease) Status: Chronic Current Visit: No (8) HHD (hypertensive heart disease) Status: Chronic Current Visit: No (9) HLD (hyperlipidemia) Status: Chronic Current Visit: No (10) Overweight (BMI 25.0-29.9) Status: Acute Current Visit: Yes (11) Anemia Status: Acute Current Visit: Yes Assessment and Plan for All Diagnoses:: 1. Chest pain, resolved with no evidence of cardiac involvement 2. Atrial fibrillation, patient has converted back to sinus rhythm. Would recommend continuing Xarelto therapy with dosing based on renal status. 3. Hypertension, continue metoprolol 200 mg daily, Norvasc 10 mg daily and will restart clonidine 0.1 mg 3 times daily. Continue to hold Lasix spironolactone and losartan pending blood work results. 4. CAD, clinically stable, continue aspirin and isosorbide therapy. Anticipate discharge later today.
[2019-10-25 07:53] LABS: Chloride 113 mmol/L (98-107); Potassium 4.4 mmoL/L (3.5-5.1); Sodium 145 mmol/L (136-145)
[2019-10-25 07:56] LABS: Anion Gap 13.4 mEq/L (5-15); Blood Urea Nitrogen 24 mg/dl (9-20); Calcium 9.1 mg/dl (8.4-10.2); Carbon Dioxide 23 mmol/L (22.0-30.0); Creatinine Clearance Estimated 59 mL/min (50-200); Estimated Glomerular Filt Rate 37 ml/min (>60); GFR (African American) 45 ML/MIN (>60); Glucose 87 mg/dl (74-100)
--- NOTE | 2019-10-25 08:03 | HMH.ACPN2 ---
<Eder Ray - Last Filed: 10/25/19 08:03> Internal Medicine - PN: Subj *Date: 10/25/19 *Time: 08:03 Exam Vital signs and Labs for Last 24 Hours: Temp Pulse Resp BP Pulse Ox 98.1 F 61 17 150/98 H 94 L 10/25/19 07:32 10/25/19 07:32 10/25/19 07:32 10/25/19 07:32 10/25/19 07:32 Laboratory Results - last 24 hr 10/25/19 07:40: Sodium 145, Potassium 4.4, Chloride 113 H, Carbon Dioxide 23, Anion Gap 13.4, BUN 24 H D, Creatinine 1.80 H D, Estimated Creat Clear 59, Estimated GFR 37 L, Est GFR ( Amer) 45 L D, Glucose 87, Calcium 9.1 I & O for Last 24 hours: Intake & Output 10/22/19 10/23/19 10/24/19 10/25/19 23:59 23:59 23:59 23:59 Intake Total 2120 / 2120 2020 / 2140 1064 / 1064 Output Total 200 / 450 2750 / 3350 2100 / 2100 Balance 1920 / 1670 -730 / -1210 -1036 / -1036 Weight 244 lb 8 oz 239 lb 2 oz 243 lb 5 oz Assessment and Plan (1) Nausea Current visit: Yes Status: Acute Category: Medical Code(s): R11.0 - Nausea (2) Diaphoresis Current visit: Yes Status: Acute Category: Medical Code(s): R61 - Generalized hyperhidrosis (3) Atrial fibrillation with normal ventricular rate Current visit: Yes Status: Acute Category: Medical Code(s): I48.91 - Unspecified atrial fibrillation (4) Chest pain Current visit: No Status: Acute Qualifiers: Chest pain type: precordial pain Qualified Code(s): R07.2 - Precordial pain Category: Medical Code(s): R07.9 - Chest pain, unspecified (5) Renal insufficiency Current visit: Yes Status: Acute Category: Medical Code(s): N28.9 - Disorder of kidney and ureter, unspecified (6) Visual impairment Current visit: No Status: Acute Category: Medical Code(s): H54.7 - Unspecified visual loss (7) CAD (coronary artery disease) Current visit: No Status: Chronic Qualifiers: Coronary Disease-Associated Artery/Lesion type: [place] artery [place] vs. transplanted heart: [place] heart Associated angina: without angina Qualified Code(s): I25.10 - Atherosclerotic heart disease of [place] coronary artery without angina pectoris Category: Medical Code(s): I25.10 - Atherosclerotic heart disease of [place] coronary artery without angina pectoris (8) HHD (hypertensive heart disease) Current visit: No Status: Chronic Qualifiers: Heart failure presence: without heart failure Qualified Code(s): I11.9 - Hypertensive heart disease without heart failure Category: Medical Code(s): I11.9 - Hypertensive heart disease without heart failure (9) HLD (hyperlipidemia) Current visit: No Status: Chronic Qualifiers: Hyperlipidemia type: mixed hyperlipidemia Qualified Code(s): E78.2 - Mixed hyperlipidemia Category: Medical Code(s): E78.5 - Hyperlipidemia, unspecified (10) Overweight (BMI 25.0-29.9) Current visit: Yes Status: Acute Category: Medical Code(s): E66.3 - Overweight (11) Anemia Current visit: Yes Status: Acute Qualifiers: Anemia type: unspecified type Qualified Code(s): D64.9 - Anemia, unspecified Category: Medical Code(s): D64.9 - Anemia, unspecified <Iron Null - Last Filed: 10/25/19 08:59> Internal Medicine - PN: Subj *Date: 10/25/19 *Time: 08:15 Interval history: pt states he is doing well today Exam Vital signs and Labs for Last 24 Hours: Temp Pulse Resp BP Pulse Ox 98.1 F 61 17 150/98 H 94 L 10/25/19 07:32 10/25/19 07:32 10/25/19 07:32 10/25/19 07:32 10/25/19 07:32 Laboratory Results - last 24 hr 10/25/19 07:40: Sodium 145, Potassium 4.4, Chloride 113 H, Carbon Dioxide 23, Anion Gap 13.4, BUN 24 H D, Creatinine 1.80 H D, Estimated Creat Clear 59, Estimated GFR 37 L, Est GFR ( Amer) 45 L D, Glucose 87, Calcium 9.1 I & O for Last 24 hours: Intake & Output 10/22/19 10/23/19 10/24/19 10/25/19 11:59 11:59 11:59 11:59 Intake Total 2922 / 2922 2282 / 2282 Output Total 1650 / 1650 3400
--- NOTE | 2019-10-25 15:00 | PC.NURSE ---
Pt called out c/o sudden onset of RUQ pain that woke him up. Pt reports that pain is a stabbing sensation and is intermittent. Pt reports passing flatus and that pain is now resolved. Will contact MD office for any further orders because it was his chief complaint on admission. Call light within reach, encouraged pt to call out if he begins to experience pain again. Pt has been on continuous heart monitor and is NSR.
--- NOTE | 2019-10-25 15:40 | PC.NURSE ---
Pt sleeping soundly in bed on his left side with resps even and unlabored, pt has not had any further complaints of RUQ pain.
--- NOTE | 2019-10-25 16:46 | PC.NURSE ---
RN reassessment completed at 1640. Pt A&O X4. Pts IV became dislodged and new one was started, tolerated insertion well. Pt has rested off and on this shift. Pt had c/o RUQ x1 this shift, denies any pain/discomfort at this time. Pt has voided per urinal several times this shift without difficulty. Lung sounds CTA. Abd soft and nontender with BS active in all quads. Pt is tolerating diet well. NSR on water supply technician. VSS. Pt now up to the shower with SRNA present to assist, tolerated ambulation well with walking stick, bed linens changed by staff. Will continue to monitor.
[2019-10-26] VITALS: BP 139/64; PULSE 70; PULSE 72; RESP 17; TEMP 36.6; O2SAT 94
--- NOTE | 2019-10-26 03:56 | PC.NURSE ---
Pt has slept well most of this shift, denies pain/soa. VSS, lung sounds clear, cardiovascular system WNL. Active bowel sounds. More than adequate UOP.
[2019-10-26 04:00] VITALS: BP 162/70; PULSE 60; PULSE 72; RESP 17; TEMP 36.7; O2SAT 97
[2019-10-26 04:42] VITALS: BMI 29.2
[2019-10-26 06:53] LABS: Basophils # 0.1 K/mm3 (0-0.2); Basophils % 0.8 % (0.1-2.0); Eosinophils # 0.4 K/mm3 (0.0-0.4); Eosinophils % 5.4 % (0.1-12.0); Hematocrit 33.8 % (42.0-52.0); Hemoglobin 11.4 g/dL (14.1-18.0); Lymphocytes # 1.4 K/mm3 (0.7-4.5); Lymphocytes % 21.4 % (10-50); Mean Corpuscular HGB Conc 33.6 g/dL (31.8-35.4); Mean Corpuscular Volume 89.3 fl (80-94); Mean Platelet Volume 8.2 fl (7.4-10.4); Monocytes # 0.4 K/mm3 (0.1-1.0); Monocytes % 6.4 % (1.7-9.3); Neutrophils # 4.5 K/mm3 (1.8-7.8); Neutrophils % 66.1 % (37.0-80.0); Platelet Count 219 K/mm3 (142-424); Red Blood Count 3.79 M/mm3 (4.60-6.20); Red Cell Distribution Width 14.3 % (11.5-17.5); White Blood Count 6.7 K/mm3 (4.8-10.8)
[2019-10-26 07:04] LABS: Chloride 113 mmol/L (98-107); Potassium 4.2 mmoL/L (3.5-5.1); Sodium 145 mmol/L (136-145)
[2019-10-26 07:07] LABS: Anion Gap 14.2 mEq/L (5-15); Blood Urea Nitrogen 22 mg/dl (9-20); Carbon Dioxide 22 mmol/L (22.0-30.0); Creatinine Clearance Estimated 61 mL/min (50-200); Estimated Glomerular Filt Rate 40 ml/min (>60); GFR (African American) 48 ML/MIN (>60)
[2019-10-26 07:08] LABS: Calcium 9.8 mg/dl (8.4-10.2); Glucose 77 mg/dl (74-100)
[2019-10-26 08:00] VITALS: BP 154/91; PULSE 68; PULSE 70; RESP 18; TEMP 36.8; O2SAT 96
--- NOTE | 2019-10-26 09:03 | HMH.PNCARD ---
Subjective Date: 10/26/19 Time: 08:45 Principal diagnosis: acute renal insuff, new A. fib Interval history: This is a 69-year-old black gentleman who was admitted to the hospital with atrial fibrillation with RVR. He is now in sinus rhythm on anticoagulation. He denies any chest pain or pressure. He denies any shortness of breath or edema. He denies any fever, chills, nausea, vomiting, diarrhea, PND or orthopnea. He denies any palpitations or racing of the heart. Exam Vital signs and Labs for Last 24 Hours: Temp Pulse Resp BP Pulse Ox 98.2 F 68 18 154/91 H 96 10/26/19 08:00 10/26/19 08:00 10/26/19 08:00 10/26/19 08:00 10/26/19 08:00 Laboratory Results - last 24 hr 10/26/19 06:35: WBC 6.7, RBC 3.79 L, Hgb 11.4 L, Hct 33.8 L, MCV 89.3, MCH 30.0, MCHC 33.6, RDW 14.3, Plt Count 219, MPV 8.2, Neut % (Auto) 66.1, Lymph % (Auto) 21.4, [place] % (Auto) 6.4, Eos % (Auto) 5.4, Baso % (Auto) 0.8, Neut # (Auto) 4.5, Lymph # (Auto) 1.4, [place] # (Auto) 0.4, Eos # (Auto) 0.4, Baso # (Auto) 0.1 10/26/19 06:35: Sodium 145, Potassium 4.2, Chloride 113 H, Carbon Dioxide 22, Anion Gap 14.2, BUN 22 H, Creatinine 1.70 H, Estimated Creat Clear 61, Estimated GFR 40 L, Est GFR ( Amer) 48 L, Glucose 77, Calcium 9.8 I & O for Last 24 hours: Intake & Output 10/23/19 10/24/19 10/25/19 10/26/19 23:59 23:59 23:59 23:59 Intake Total 2120 / 2120 2020 / 2140 1424 / 1424 2318 / 2318 Output Total 200 / 450 2750 / 3350 3000 / 3500 1575 / 1575 Balance 1920 / 1670 -730 / -1210 -1576 / -6 743 / 743 Weight 244 lb 8 oz 239 lb 2 oz 243 lb 5 oz 240 lb 4 oz Narrative: Telemetry strip is sinus rhythm with a rate of 72. - Constitutional no acute distress, average body habitus - *Routine HEENT Exam Head: Present: normocephalic, atraumatic Eye: Present: EOMI, PERRL ENT: Present: mucous membranes moist - *Routine Neck Exam Present: supple, full ROM, normal carotid upstroke. Absent: JVD, carotid bruit, lymphadenopathy - *Routine Respiratory Exam Present: CTA bilaterally - *Routine Cardiovascular Exam Present: RRR, Normal S1, Normal S2. Absent: murmur - *Routine Abdominal Exam Present: soft, normoactive bowel sounds. Absent: tenderness, distended - *Routine Extremities Exam Present: full ROM, pulses intact, normal capillary refill. Absent: cyanosis, clubbing, edema - *Routine Skin Exam Present: intact, dry, warm. Absent: rash - *Routine Neurological Exam Present: alert, oriented X3, CN II-XII intact. Absent: sensory deficit, motor deficit Progress Note: A&P (1) Atrial fibrillation with normal ventricular rate Status: Resolved Current Visit: Yes (2) Nausea Status: Acute Current Visit: Yes (3) Diaphoresis Status: Acute Current Visit: Yes (4) Chest pain Status: Acute Current Visit: No (5) Renal insufficiency Status: Acute Current Visit: Yes (6) Visual impairment Status: Acute Current Visit: No (7) CAD (coronary artery disease) Status: Chronic Current Visit: No (8) HHD (hypertensive heart disease) Status: Chronic Current Visit: No (9) HLD (hyperlipidemia) Status: Chronic Current Visit: No (10) Overweight (BMI 25.0-29.9) Status: Acute Current Visit: Yes (11) Anemia Status: Acute Current Visit: Yes Assessment and Plan for All Diagnoses:: Plan: 1. Patient was admitted to the hospital atrial fibrillation with RVR. He is now in sinus rhythm. Continue metoprolol. 2. The patient is on Xarelto for long-term anticoagulation secondary to atrial fibrillation. 3. Patient does have coronary artery disease which is likely stable. He denies any chest pain or pressure. No plans for invasive cardiac testing at this time. 4. His blood pressure is a little bit elevated this morning but has been under better control. Continue his clonidine and Norvasc as well as metoprolol. 5. Losartan is on hold due to his renal insufficiency. 6. His kidney function is d
--- NOTE | 2019-10-26 09:22 | HMH.DCSUM ---
General - General Admission date:: 10/23/19 Discharge date: 10/26/19 HPI HPI: this pt with acute onset of chest pain at local custodial -he had chest pain -pleasant 69-year-old gentleman presents to the ED from [facility]. His chief complaint is chest pain. He states he was eating breakfast this morning and started developed some pain in the right side of his upper abdomen radiating to the center of his chest. He states that this sudden onset was right after his meal. He also stated that he felt somewhat of a nauseous sensation but he had no episodes of emesis. Patient also states that the pain did not go anywhere but may be over to the right slightly on his chest. Patient states he did not get short of breath. Patient also states he felt some diaphoresis but not overt diaphoresis. Patient also states that he had a previous stent placed here at our facility roughly maybe 1 year or 2 years ago. Patient also states he has hypertension. Patient also states that he did quit smoking but has smoked some in the past. Patient denies any sore throat or headache. Patient denies any body aches or malaise. Patient denies any shortness of breath. Patient also denies any fever shakes or chills. pt was seen in the ed and will be admitted for eval and treatment as was noted to have new onset of a fib Hospital Course Hospital Course: Laboratory Tests 10/23/19 10/23/19 10/23/19 11:55 11:55 11:55 WBC 4.8 RBC 3.50 L Hgb 10.6 L Hct 32.0 L MCV 91.3 MCH 30.1 MCHC 33.0 RDW 14.2 Plt Count 200 MPV 8.2 Neut % (Auto) 57.0 Lymph % (Auto) 31.2 [place] % (Auto) 5.7 Eos % (Auto) 5.4 Baso % (Auto) 0.6 Neut # (Auto) 2.8 Lymph # (Auto) 1.5 [place] # (Auto) 0.3 Eos # (Auto) 0.3 Baso # (Auto) 0.0 Sodium 139 Potassium 3.9 Chloride 105 Carbon Dioxide 23 Anion Gap 14.9 BUN 43 H Creatinine 3.20 H Estimated Creat Clear 31 Estimated GFR 19 L* Est GFR ( Amer) 23 L Glucose 160 H Calcium 8.7 Total Bilirubin AST ALT Alkaline Phosphatase Troponin I 0.01 Total Protein Albumin Globulin Albumin/Globulin Ratio TSH 2.03 Free T4 Index 1.9 L Thyroxine (T4) 5.3 L T3 Uptake 36 Urine Color Urine Appearance Urine pH Ur Specific [place] Urine Protein Urine Glucose (UA) Urine Ketones Urine Blood Urine Nitrate Urine Bilirubin Urine Urobilinogen Ur Leukocyte Esterase Urine RBC Urine WBC Ur Squamous Epith Cells Urine Bacteria Chlamy pneumoniae PCR Adenovirus (PCR) B. pertussis DNA (PCR) Coronavirus OC43 (PCR) Coronavirus HKU1 (PCR) Coronavirus 229E (PCR) COVID-19 PCR Coronavirus NL63 (PCR) Human Metapneumovir PCR Influenza A (H1) PCR Influ A (H1N1/09) PCR Influenza A (H3) PCR Influenza Type A (PCR) Influenza Type B (PCR) M. pneumoniae (PCR) Parainfluenza 1 (PCR) Parainfluenza 2 (PCR) Parainfluenza 3 (PCR) Parainfluenza 4 (PCR) RSV (PCR) Entero/Rhino (PCR) 10/23/19 10/23/19 10/23/19 13:15 14:55 16:42 WBC RBC Hgb Hct MCV MCH MCHC RDW Plt Count MPV Neut % (Auto) Lymph % (Auto) [place] % (Auto) Eos % (Auto) Baso % (Auto) Neut # (Auto) Lymph # (Auto) [place] # (Auto) Eos # (Auto) Baso # (Auto) Sodium Potassium Chloride Carbon Dioxide Anion Gap BUN Creatinine Estimated Creat Clear Estimated GFR Est GFR ( Amer) Glucose Calcium Total Bilirubin AST ALT Alkaline Phosphatase Troponin I < 0.01 Total Protein Albumin Globulin Albumin/Globulin Ratio TSH Free T4 Index Thyroxine (T4) T3 Uptake Urine Color Yellow Urine Appearance Clear Urine pH 6.0 Ur Specific [place] 1.010 Urine Protein Negative Urine
--- NOTE | 2019-10-26 12:24 | PC.NURSE ---
THIS RN PROVIDED REPORT TO LUCIA AT [facility]. PATIENT LEFT VIA WHEELCHAIR WITH A [facility] EMPLOYEE. NO CONCERNS OR NEEDS AT D/C.
== END 2019-10-26 12:20 | disposition home or self-care (01) | DRG 309 ==
LOC: ER 12:25 → 2ND 13:55
PROVIDERS: Nurse Practitioner Family; Physician Assistant; Admitting Provider Emergency Medicine; Emergency Provider Family Medicine; PCP Emergency Medicine; Visit Provider Emergency Medicine
DX: I48.91 Unspecified atrial fibrillation (principal); N17.9 Acute kidney failure, unspecified; I25.10 Atherosclerotic heart disease of native coronary artery without angina pectoris; Z95.5 Presence of coronary angioplasty implant and graft; I12.9 Hypertensive chronic kidney disease with stage 1 through stage 4 chronic kidney disease, or unspecified chronic kidney disease; D64.9 Anemia, unspecified; E78.5 Hyperlipidemia, unspecified; N18.3 Chronic kidney disease, stage 3 (moderate); Z87.891 Personal history of nicotine dependence; Z79.82 Long term (current) use of aspirin; Z79.899 Other long term (current) drug therapy; H54.7 Unspecified visual loss; Z86.718 Personal history of other venous thrombosis and embolism
CPT/HCPCS: 36415; 71045; 80048; 80053; 81001; 84436; 84443; 84479; 84484; 85025; 87581; 87633; 87798; 93005; 93306; 96365; 96366; 96372; 99284

== ENCOUNTER → 2020-01-04 10:55 | Outpatient (CLI) | payer MEDICARE, SELFPAY ==
[2020-01-04 11:49] LABS: PHA INR Fingerstick 1.4 (0.9-1.1)
== END ==
PROVIDERS: PCP Emergency Medicine; Visit Provider Emergency Medicine
DX: Z51.81 Encounter for therapeutic drug level monitoring (principal); Z79.01 Long term (current) use of anticoagulants
CPT/HCPCS: 85610

== ENCOUNTER 2020-01-09 10:23 | Outpatient (CLI) | payer MEDICARE, SELFPAY ==
[2020-01-09 10:51] LABS: PHA INR Fingerstick 1.6 (0.9-1.1)
== END 2020-01-09 11:24 | disposition home or self-care (01) ==
LOC: ACC 10:24
PROVIDERS: PCP Emergency Medicine; Visit Provider Emergency Medicine
DX: Z51.81 Encounter for therapeutic drug level monitoring (principal); Z79.01 Long term (current) use of anticoagulants
CPT/HCPCS: 85610; 99211; G0463

== ENCOUNTER 2020-01-17 10:48 | Outpatient (CLI) | payer MEDICARE, SELFPAY ==
[2020-01-17 11:11] LABS: PHA INR Fingerstick 1.7 (0.9-1.1)
== END 2020-01-17 12:09 | disposition home or self-care (01) ==
LOC: ACC 10:48
PROVIDERS: PCP Emergency Medicine; Visit Provider Emergency Medicine
DX: Z51.81 Encounter for therapeutic drug level monitoring (principal); Z79.01 Long term (current) use of anticoagulants
CPT/HCPCS: 85610; 99211; G0463

== ENCOUNTER 2020-01-28 10:51 | Outpatient (CLI) | payer MEDICARE, SELFPAY ==
[2020-01-28 11:16] LABS: PHA INR Fingerstick 2.1 (0.9-1.1)
== END 2020-01-28 11:46 | disposition home or self-care (01) ==
LOC: ACC 10:52
PROVIDERS: PCP Emergency Medicine; Visit Provider Emergency Medicine
DX: Z51.81 Encounter for therapeutic drug level monitoring (principal); Z79.01 Long term (current) use of anticoagulants
CPT/HCPCS: 85610; 99211; G0463

== ENCOUNTER 2020-02-18 10:13 | Outpatient (CLI) | payer MEDICARE, SELFPAY ==
[2020-02-18 10:48] LABS: PHA INR Fingerstick 1.6 (0.9-1.1)
== END 2020-02-18 11:03 | disposition home or self-care (01) ==
LOC: ACC 10:14
PROVIDERS: PCP Emergency Medicine; Visit Provider Emergency Medicine
DX: Z51.81 Encounter for therapeutic drug level monitoring (principal); Z79.01 Long term (current) use of anticoagulants
CPT/HCPCS: 85610; 99211; G0463

== ENCOUNTER 2020-03-05 10:57 | Outpatient (CLI) | payer MEDICARE, SELFPAY | END 2020-03-05 13:58 | disposition home or self-care (01) | LOC: ACC 10:59 | PROVIDERS: PCP Emergency Medicine; Visit Provider Emergency Medicine | DX: Z51.81 Encounter for therapeutic drug level monitoring (principal); Z79.01 Long term (current) use of anticoagulants | CPT/HCPCS: 85610; 99211; G0463 ==

== ENCOUNTER 2020-04-09 10:16 | Outpatient (CLI) | payer MEDICARE, SELFPAY | END 2020-04-09 17:00 | disposition home or self-care (01) | LOC: ACC 10:17 | PROVIDERS: PCP Emergency Medicine; Visit Provider Emergency Medicine | DX: Z51.81 Encounter for therapeutic drug level monitoring (principal); Z79.01 Long term (current) use of anticoagulants | CPT/HCPCS: 85610; 99211; G0463 ==

== ENCOUNTER 2020-05-05 02:59 | Inpatient (IN) | payer MEDICARE, SELFPAY ==
[2020-05-05] VITALS (15 sets, daily range): BP systolic 136–212; BP diastolic 77–137; PULSE 50–77; RESP 14–22; TEMP 36.6–36.9; O2SAT 90–100; BMI 28.5; BMI 26.8; BMI 26.9
--- NOTE | 2020-05-05 02:55 | ECG_ITS ---
APPROVED REPORT Exam: Resting ECG HR:51 bpm ECG Measurements Heart Rate 51 AXES WA 154 P 19 QRSd 116 QRS -12 QT 468 T -31 QTc 431 Conclusion Sinus bradycardia Left ventricular hypertrophy with QRS widening ST & T wave abnormality, consider anterior ischemia Abnormal ECG Electronically signed by : Syed Modi, 05/05/2020 06:41:56
--- NOTE | 2020-05-05 03:01 | CT_ITS ---
PROCEDURE: CT HEAD/BRAIN WO CON CLINICAL INDICATION: AMS Altered mental status, altered level of consciousness, confusion, disorientation, stroke protocol COMPARISON: CT HDWO CT HEAD W/O CONTRAST from 03/09/2017 TECHNIQUE: Axial images obtained. All CT scans at the facility use one or more dose reduction, viz: automated exposure control, ma/kV adjustment per patient size (including targeted exams where dose is matched to indication, i.e. head), or iterative reconstruction technique. FINDINGS: No midline shift, mass effect, intracranial hemorrhage, hydrocephalus, or extra-axial fluid collection is evident. There is generalized atrophy with hypoattenuation of the periventricular white matter consistent with microangiopathic changes.. Encephalomalacia changes are present in the left frontal lobe unchanged the calvarium has an unremarkable appearance. No mastoid effusion. Mucosal thickening involves the ethmoid sinuses and right maxillary sinus. There is chronic fracture of the left frontal sinus and roof of the left orbit. Deformity noted of the left globe. IMPRESSION: Overall no change with no acute finding. Dictated by: Edwar Mckay MD 05/05/2020 06:57 Edwar Mckay MD in [place] 05/05/2020 06:57
--- NOTE | 2020-05-05 03:17 | HMH.EDNEU ---
ED Disposition Clinical Impression: Overweight (BMI 25.0-29.9), Visual impairment, Renal insufficiency, Encephalomalacia CVA (cerebral vascular accident) Qualifiers: CVA mechanism: unspecified Qualified Code(s): I63.9 - Cerebral infarction, unspecified CAD (coronary artery disease) Qualifiers: Coronary Disease-Associated Artery/Lesion type: [place] artery [place] vs. transplanted heart: [place] heart Associated angina: with unspecified angina Qualified Code(s): I25.119 - Atherosclerotic heart disease of [place] coronary artery with unspecified angina pectoris High blood pressure Qualifiers: Hypertension type: essential hypertension Qualified Code(s): I10 - Essential (primary) hypertension A-fib Qualifiers: Atrial fibrillation type: unspecified chronic Qualified Code(s): I48.20 - Chronic atrial fibrillation, unspecified Disposition: Admitted As Inpatient Condition on Discharge: Serious - Critical Care Critical Care Time: No Attestation: On 05/05/20, the high probability of a clinically significant, sudden or life threatening deterioration of the following system(s) required my full and direct attention, intervention and personal management. The time I documented below is in addition to time spent performing reported procedures but includes the following listed in this critical care notation. Medical Decision Making - Medical Records Medical records reviewed: Yes: I reviewed the patient's medical records. - [place] Inquiry Pt receiving controlled substance: No Vital Signs: 05/05/20 02:59 05/05/20 03:59 Temperature 97.8 F Temperature Source Oral Pulse Rate [Right] 72 65 Respiratory Rate 14 Blood Pressure [Right Arm] 136/77 170/80 H Blood Pressure Mean [Right Arm] 96 110 Blood Pressure Source [Right Arm] Manual Cuff/ Auscultation 02 Sat by Pulse Oximetry 97 97 Oxygen Delivery Method Room Air - Lab Data Lab results reviewed: Yes: I reviewed the patient's lab results. Lab Results 05/05/20 03:00: WBC 8.7, RBC 4.09 L, Hgb 11.3 L, Hct 35.7 L, MCV 87.3, MCH 27.6, MCHC 31.6 L, RDW 17.1, Plt Count 241, MPV 8.1, Neut % (Auto) 87.2 H, Lymph % (Auto) 8.9 L, [place] % (Auto) 3.5, Eos % (Auto) 0.2, Baso % (Auto) 0.2, Neut # (Auto) 7.6, Lymph # (Auto) 0.8, [place] # (Auto) 0.3, Eos # (Auto) 0.0, Baso # (Auto) 0.0, Total Counted 100, Neutrophils % (Manual) 89 H, Band Neutrophils % 4.0, Lymphocytes % (Manual) 7 L, Platelet Estimate Normal, RBC Morphology Not Reportable, Hypochromasia 2+, Anisocytosis 1+, Microcytosis 1+, Rouleaux 2+, ESR 65 H 05/05/20 03:00: Sodium 145, Potassium 4.1, Chloride 110 H, Carbon Dioxide 27, Anion Gap 12.1, BUN 26 H, Creatinine 1.70 H, Estimated Creat Clear 60, Estimated GFR 40 L, Est GFR ( Amer) 48 L, Glucose 135 H, Calcium 10.0, Total Bilirubin 0.4, AST 25, ALT 16, Alkaline Phosphatase 73, Troponin I < 0.01, C-Reactive Protein 4.9 H, Total Protein 9.0 H, Albumin 4.6, Globulin 4.4 H, Albumin/Globulin Ratio 1.0 L, Procalcitonin 0.051 05/05/20 03:00: Plasma/Serum Alcohol < 10 05/05/20 03:00: SARS-CoV-2 IgG Ab (Rapid) Positive A, SARS-CoV-2 IgM Ab (Rapid) Negative 05/05/20 03:00: PT 19.9 H, INR 1.90 H, APTT 28.8 05/05/20 03:15: Urine Color Yellow, Urine Appearance Sl cloudy, Urine pH 6.0, Ur Specific [place] 1.020, Urine Protein 1+, Urine Glucose (UA) Negative, Urine Ketones Negative, Urine Blood 1+, Urine Nitrate Negative, Urine Bilirubin Negative, Urine Urobilinogen 0.2, Ur Leukocyte Esterase Trace, Urine RBC 10-20, Urine WBC 10-20, Ur Squamous Epith Cells 5-10, Amorphous Sediment 3+ 05/05/20 03:15: Urine Opiates Screen Negative, Urine Methadone Screen Negative, Ur Barbituates Screen Negative, Ur Phencyclidine Scrn Negative, Ur Amphetamines Screen Negative, U Benzodiazepines Scrn Negative, Urine Cocaine Screen Negative, U Marijuana (THC) Screen Negative Result diagrams: 05/05/20 03:05/05/20 03:00 Orders (Tests/Meds): ORDERS Category Date Time Status CT head/brain wo con Stat Cat Scan
[2020-05-05 03:23] LABS: Microscopic, Urine URINE MICROSCOPIC (MICROSCOPIC)
[2020-05-05 03:26] LABS: Basophils % 0.2 % (0.1-2.0); Eosinophils % 0.2 % (0.1-12.0); Hematocrit 35.7 % (42.0-52.0); Hemoglobin 11.3 g/dL (14.1-18.0); Lymphocytes # 0.8 K/mm3 (0.7-4.5); Lymphocytes % 8.9 % (10-50); Mean Corpuscular HGB Conc 31.6 g/dL (31.8-35.4); Mean Corpuscular Hemoglobin 27.6 pg (27.0-31.2); Mean Corpuscular Volume 87.3 fl (80-94); Mean Platelet Volume 8.1 fl (7.4-10.4); Monocytes # 0.3 K/mm3 (0.1-1.0); Monocytes % 3.5 % (1.7-9.3); Neutrophils # 7.6 K/mm3 (1.8-7.8); Neutrophils % 87.2 % (37.0-80.0); Platelet Count 241 K/mm3 (142-424); Red Blood Count 4.09 M/mm3 (4.60-6.20); Red Cell Distribution Width 17.1 % (11.5-17.5); White Blood Count 8.7 K/mm3 (4.8-10.8)
--- NOTE | 2020-05-05 03:27 | XR_ITS ---
PROCEDURE: XR CHEST PORTABLE CLINICAL HISTORY: ams Slurred speech, altered mental status COMPARISON: CR XR CHEST PORTABLE from 11/26/2018 CR XR CHEST 2V from 04/08/2019 CR XR CHEST PORTABLE from 10/23/2019 FINDINGS: There is cardiomegaly without failure. There is mild prominence of the mediastinum which may be due to tortuosity/ectasia the thoracic aorta. There are atelectatic changes in the right lower lobe. There are low lung volumes. No acute bony abnormalities. IMPRESSION: Cardiomegaly with low lung volumes and right basilar atelectasis Dictated by: Edwar Mckay MD 05/05/2020 06:48 Edwar Mckay MD in [place] 05/05/2020 06:48
[2020-05-05 03:37] LABS: Appearance,Urine SL CLOUDY (Clear); Bilirubin,Urine Negative (Negative); Blood, Urine 1+ (Negative); Color,Urine YELLOW (Yellow); Glucose,Urine (UA) Negative (Negative); Ketones,Urine Negative (Negative); Leukocyte Esterase,Urine TRACE (Negative); Nitrate,Urine Negative (Negative); Protein,Urine 1+ (Negative); Urobilinogen,Urine 0.2 EU/dl (0.2)
[2020-05-05 03:38] LABS: Chloride 110 mmol/L (98-107); Potassium 4.1 mmoL/L (3.5-5.1); Sodium 145 mmol/L (136-145)
[2020-05-05 03:41] LABS: Alanine Aminotransferase 16 U/L (12-78); Albumin Level 4.6 g/dl (3.5-5.0); Alkaline Phosphatase 73 U/L (38-126); Anion Gap 12.1 mEq/L (5-15); Aspartate Amino Transferase 25 U/L (17-59); Bilirubin,Total 0.4 mg/dl (0.2-1.3); Blood Urea Nitrogen 26 mg/dl (9-20); Carbon Dioxide 27 mmol/L (22.0-30.0); Creatinine Clearance Estimated 60 mL/min (50-200); Estimated Glomerular Filt Rate 40 ml/min (>60); GFR (African American) 48 ML/MIN (>60); Globulin 4.4 g/dL (1.3-3.2); Glucose 135 mg/dl (74-100)
[2020-05-05 03:45] LABS: MANUAL DIFFERENTIAL MANUAL DIFFERENTIAL (MANUAL DIFF)
[2020-05-05 03:46] LABS: Amorphous Sediment,Urine 3+ /lpf
[2020-05-05 03:47] LABS: Activated Partial Thrombo Time 28.8 seconds (23.6-34.0); C-Reactive Protein 4.9 mg/L (0-4); Prothrombin Time 19.9 seconds (9.4-11.8)
[2020-05-05 03:48] LABS: Amphetamine/Metha Screen,Urine Negative ng/ml (<1000); Barbiturates Screen,Urine Negative ng/ml (<200)
[2020-05-05 03:49] LABS: Benzodiazepines Screen,Urine Negative ng/ml (<200)
[2020-05-05 03:50] LABS: Cannabinoid Screen,Urine Negative ng/ml (<50)
[2020-05-05 03:50] LABS: Ethyl Alcohol < 10 mg/dl (0-10)
[2020-05-05 03:51] LABS: Cocaine Screen,Urine Negative ng/ml (<300)
[2020-05-05 03:52] LABS: Methadone Screen,Urine Negative ng/ml (<300); Opiate Screen,Urine Negative ng/ml (<300)
[2020-05-05 03:53] LABS: Phencyclidine Screen,Urine Negative ng/ml (<25)
[2020-05-05 03:53] LABS: Erythrocyte Sedimentation Rate 65 mm/hr (0-20)
[2020-05-05 03:55] LABS: Anisocytosis 1+; Hypochromasia 2+; Lymphocytes % 7 % (10-50); Microcytosis 1+; Neutrophils % 89 % (42-76); Platelet Estimate Normal; Rouleaux 2+; Total Cells Counted 100
[2020-05-05 04:03] LABS: Coronavirus 19 IgG Antibody Positive (Negative); Coronavirus 19 IgM Antibody Negative (Negative)
[2020-05-05 04:07] LABS: Procalcitonin 0.051 ng/mL (0.0-2.0)
[2020-05-05 04:09] LABS: Troponin I < 0.01 ng/ml (0.00-0.034)
[2020-05-05 07:17] LABS: Troponin I < 0.01 ng/ml (0.00-0.034)
--- NOTE | 2020-05-05 07:48 | CT_ITS ---
PROCEDURE: CT ABDOMEN PELVIS WO CON CLINICAL INDICATION: abd mass COMPARISON: CT ABDPELW/O CT ABD PELVIS W/O CONTRAST from 02/03/2017 TECHNIQUE: Axial images obtained with sagittal and coronal reformats. All CT scans at the facility use one or more dose reduction, viz: automated exposure control, ma/kV adjustment per patient size (including targeted exams where dose is matched to indication, i.e. head), or iterative reconstruction technique. FINDINGS: LOWER THORAX: Chronic changes are present in the lower lobes with atelectasis and/or fibrotic change. There is a small pneumatocele in the left lung base posteriorly at approximately 3 cm. Coronary artery calcifications and/or stent noted ABDOMEN & PELVIS: There are multiple hypodensities of both lobes of the liver and may represent hepatic cysts which are not significantly changed. The spleen and adrenal glands are unremarkable. There is pancreatic atrophy. There are numerous bilateral renal cysts and multiple bilateral renal calculi. No hydronephrosis. The largest renal cyst is on the right measuring 4 cm. No ureteral calculus. There is a small umbilical hernia which contains fat. No abdominal or pelvic mass apparent. No intestinal obstruction or free air. No evidence of appendicitis. There are multiple colonic diverticula but no evidence of diverticulitis. No evidence of abdominal aortic aneurysm. There is mild dilatation of the proximal left common iliac artery at approximately 2 cm. This is not significantly changed. The prostate gland is enlarged measuring 5.4 cm transverse. There is a Jason catheter present. Urinary bladder is collapsed with thickening of the urinary bladder wall which could be due to nondistention or cystitis. There is degenerative disc disease in the lumbar spine. A sclerotic focus involves the left femoral neck and may be due to a bone island not significantly changed. IMPRESSION: The 1. Overall no significant change with no acute finding compared 02/03/2017. 2. Multiple bilateral renal cyst and bilateral nephrolithiasis. 3. Enlarged prostate. 4. Jason catheter present with collapsed urinary bladder with mild thickening of the bladder wall which may be due to cystitis or collapse mucosa 5. Hepatic cysts Dictated by: Edwar Mckay MD 05/05/2020 13:12 Edwar Mckay MD in [place] 05/05/2020 13:12
--- NOTE | 2020-05-05 07:48 | FL_ITS ---
PROCEDURE: FL BARIUM SWALLOW MODIFIED CLINICAL INDICATION: COMPARISON: No exams were available for comparison TECHNIQUE: Patient administered varying consistencies of barium contrast, while viewed in lateral position under real-time fluoroscopy with cine recording. FLUOROSCOPY TIME: The study was performed in conjunction with speech pathologist. Please see that report & recommendations. FINDINGS: Patient was given varying consistencies of barium. No evidence of aspiration or penetration. There was a mild amount of residual and early spillage with thin and nectar. There was difficulty with the patient forming bolus with mechanical soft there. There was delay and initiation of the swallowing reflex with mechanical soft IMPRESSION: No aspiration or penetration. Early spillage with residual and delay. Please see speech pathologist report and recommendations. Dictated by: Edwar Mckay MD 07/04/2020 19:04 Edwar Mckay MD in [place] 07/04/2020 19:04
--- NOTE | 2020-05-05 08:00 | CA_ITS ---
APPROVED REPORT Candy Forming Machine Operator: JAVIER Laterality: Bilateral Indications: cva Risk Factors Hypertension: Diabetes CAD, AFIB Doppler Spectral Velocity Analysis ECA (R) 39.70/3.90 cm/s ECA (L) 63.60/9.60 cm/s dICA (R) 64.20/24.10 cm/s dICA (L) 69.40/22.30 cm/s Bonnie (R) 38.50/16.20 cm/s Bonnie (L) 30.50/14.40 cm/s pICA (R) 43.50/12.70 cm/s pICA (L) 52.40/12.80 cm/s dCCA (R) 41.20/7.70 cm/s dCCA (L) 42.20/11.80 cm/s pCCA (R) 57.20/12.30 cm/s pCCA (L) 68.50/8.60 cm/s Vert (R) 41.20/6.50 cm/s ICA/CCA 1.56 ICA/CCA 1.64 Findings Duplex evaluation demonstrates stenosis of the right proximal internal carotid artery <20% with PSV <140 cm/sec, EDV <100 cm/sec, and IC/CC Ratio <4.0. Duplex evaluation demonstrates stenosis of the left proximal internal carotid artery <20% with PSV <140 cm/sec, EDV <100 cm/sec, and IC/CC Ratio <4.0. Conclusion Duplex evaluation demonstrates stenosis of the right proximal internal carotid artery <20% with PSV <140 cm/sec, EDV <100 cm/sec, and IC/CC Ratio <4.0. Duplex evaluation demonstrates stenosis of the left proximal internal carotid artery <20% with PSV <140 cm/sec, EDV <100 cm/sec, and IC/CC Ratio <4.0. Electronically signed by : Edwar Mckay MD 05/05/2020 17:21:30
--- NOTE | 2020-05-05 08:00 | CA_ITS ---
APPROVED REPORT EXAM: Comprehensive 2D, Doppler, and color-flow Echocardiogram Data Technical Lead: Tahmina Diaz RT(R) Ht: 6 ft 1 in Wt: 203lbs BSA: 2.17 BP: 170/80 mmHg Indications: HTN, smoker, CAD, AFIB, CVA 2D Dimensions LVOT 2.41 cm (M/F) 1.5-2.5 M-Mode Dimensions RVDd 2.85 cm (0.9-2.6) LA Diam 2.40 cm (1.9-4.0) LVDd 6.43 cm (3.5-5.7) Ao Diam 2.86 cm (2.0-3.7) LVDs 5.44 cm (3.5-5.7) IVSd 1.18 cm (0.6-1.1) PWd 0.84 cm (0.6-1.1) EF (Teich) 31.80% FS 15.40% EDV (Teich) 210.80 mL ESV (Teich) 143.70 mL LV Diastology E Decel Time 263.00 (160-240 msec) E/A Ratio 0.5 MED E' 6.50 (< 7 cm/sec) E'/MED E' Ratio 5.22 (>14) LAT E' 6.20 (<10 cm/sec) E/LAT E' Ratio 5.47 (>14) Mitral Valve MV E Max Man. 34.00 (40-130 cm/s) MV A Velocity 64.00 (40-130 cm/s) E/A Ratio 0.53 MV Decel. Time 263.00 (160-240 ms) MV PHT 77.00 ms Left Ventricle Left atrium is mildly enlarged, left ventricle is normal size, mild concentric left ventricular hypertrophy, visually estimated ejection fraction 55% with no regional wall motion abnormality, grade 1 diastolic dysfunction seen without tissue Doppler evidence of raise left atrial pressure. Right Ventricle Right atrium and right ventricle are mildly enlarged with normal contractility. Aortic Valve Aortic valve is minimally thickened and fibrosed. There is no aortic stenosis or aortic insufficiency. Mitral Valve Mitral valve is grossly normal, there is trace mitral regurgitation. Tricuspid Valve Tricuspid valve grossly normal, there is trace tricuspid regurgitation, tricuspid regurgitation jet velocity is inadequate for calculation of the right ventricular systolic pressure. Pulmonic Valve Pulmonic valve is poorly visualized. Great Vessels Aortic root is normal size. Pericardium No significant pericardial effusion noted. Conclusion 1. Mild biatrial enlargement, normal left ventricular size, mild concentric left ventricular hypertrophy, visually estimated ejection fraction 55% with no regional wall motion abnormality, grade 1 diastolic dysfunction seen without tissue Doppler evidence of raise left atrial pressure. 2. Mildly enlarged right ventricle with normal contractility. 3. Trace mitral and tricuspid regurgitation. 4. Thickened and calcified aortic valve without Doppler evidence of aortic stenosis or aortic insufficiency. 5. No significant pericardial effusion noted. Electronically signed by : Fernando Phan, 05/06/2020 08:06:29
--- NOTE | 2020-05-05 08:26 | HMH.PHAVTE ---
[facility] Pharmacy VTE Monitoring - Patient Demographics Admission date: 05/05/20 Report Date: 05/05/20 Time: 08:26 Allergies/Adverse Reactions: Patient Allergies No Known Allergies Allergy (Verified 05/10/19 13:25) Height: 1.85 m Weight: 92.306 kg Patient Problems: Current Active Problems Renal insufficiency (Acute) Visual impairment (Acute) Overweight (BMI 25.0-29.9) (Acute) CVA (cerebral vascular accident) (Acute) Encephalomalacia (Acute) A-fib (Acute) CAD (coronary artery disease) (Chronic) High blood pressure (Chronic) - VTE Risk Labs: VTE Related Lab Results Hgb 11.3 g/dL (14.1-18.0) L 05/05/20 03:00 Hct 35.7 % (42.0-52.0) L 05/05/20 03:00 Plt Count 241 K/mm3 (142-424) 05/05/20 03:00 PT 19.9 seconds (9.4-11.8) H 05/05/20 03:00 INR 1.90 (0.9-1.1) H 05/05/20 03:00 APTT 28.8 seconds (23.6-34.0) 05/05/20 03:00 BUN 26 mg/dl (9-20) H 05/05/20 03:00 Creatinine 1.70 mg/dl (0.66-1.25) H 05/05/20 03:00 Estimated Creat Clear 60 mL/min (50-200) 05/05/20 03:00 Clinical Trial Participant: No - Prophylaxis VTE Prophylaxis Ordered?: Yes Types of VTE Prophylaxis: TEDS Knee High, Pharmacological Pharmacologic Type: Warfarin
--- NOTE | 2020-05-05 08:29 | HMH.PHAINT ---
home medication list clarified using MAR from [facility]
--- NOTE | 2020-05-05 08:38 | PC.NURSE ---
Patient wakes to voice and can state name and that the year is 2019 (not 2020); other answers to questions were not understood due to a mixture of garbled speech and word salad. Environmental Sustainability Manager are equal and strong bilaterally; patient able to push against my hands with bilateral feet and have equal strength. No facial droop noted when patient smiles; unable to check pupils or follow other neuro checks due to patient being blind. Patient quickly falls back to sleep when not interacting. bus monitor on patient showing NSR- sinus laureano. Echo being performed at bedside at this time. Patient has Jason catheter draining clear/ pale yellow urine and is hanging with no loops or kinks below the bladder (off the floor) and attached with a stat lock. Urology consult ordered. Bed alarm set with bed in lowest position due to patient confusion and being a fall risk. Call light laying on patient's hand and patient has been instructed to call for help and not get OOB alone. Bedside swallow test performed by this nurse; patient drank water with no signs of difficulty and water did not leak out around mouth. 0850- PT/OT in room at this time
--- NOTE | 2020-05-05 08:55 | HMH.HP ---
*Admission Date: 05/05/20 *Chief complaint: cva *History of present illness: 69 yr old male presented to ed via ems from [facility] with c/o reported to have slurred speech noted 2229 with altered mental status- uncertain as to last normal. Patient is alert and oriented with slurred speech, facial palsy with dysarthia and weakness lt upper ext. hx of prev brain injury and has a fib on Coumadin - no fever or trauma - has hx of visual impairment-legally blind. While in ed pt was found to have over 400 ml in bladder, consult urology.Admitted for further work up. [facility] History I have reviewed the patient's past medical history: Yes Medical History: Reports:: Coronary Artery Disease, Deep Vein Thrombosis, Hyperlipidemia, Hypertension, Renal Insufficiency, Urinary Tract Infection Denies:: Cancer, Diabetes Mellitus Type 1, Diabetes Mellitus Type 2, Internal Pacemaker, MRSA, Seizures *Have you ever received a pneumonia vaccine?: No (unknown) *Have you received a flu vaccine this season?: Yes Other Medical History: Reports: Anemia, Arthritis. Denies: Blood Transfusion Reaction Laterality Cases: Right: Arthroscopy Knee Other Surgeries: Yes: Appendectomy, Cardiac Catheterization, Cardiac Surgery, Coronary Stent, Skin Cancer Excision, Other (blood clot in leg in the past). No: Pacemaker Amputation: No Fractures: No - *Social History Smoking Status: Current every day smoker Tobacco Type: cigarettes # Packs/Day (cigarettes): 1 Alcohol Intake: never Substance Use Type: denies use *Occupational Status:: disabled Housing: apartment Household Members: none *Travel in the last 8 weeks: None Family Hx:: Unable to obtain Review of Systems - Constitutional Denies fatigue, Denies fever(s), Denies malaise - Eyes Reports other, Denies blurry vision - ENT Denies dizziness, Denies nasal discharge, Denies sore throat - *Cardiovascular Denies chest pain at rest - *Respiratory Denies chest congestion - *Gastrointestinal Denies nausea, Denies vomiting - *Genitourinary Denies urinary frequency - *Musculoskeletal Reports muscle weakness, Denies body aches - Integumentary/Breasts Denies rash - *Neurologic Reports localized weakness, Reports weakness, Reports other (speech abn ), Denies abnormal movements - Psychiatric Denies anxiety - Endocrine Denies excessive sweating - Hematologic/Lymphatic Denies enlarged lymph nodes - Allergic/Immunologic Denies throat swelling Meds Home Medications Medication Instructions Recorded Confirmed Type timolol maleate 0.5 % eye drops 1 drp OPHTHALMIC DAILY 30 Days #10 06/16/17 05/05/20 History OXcarbazepine [Trileptal 300mg 300 mg PO BID 08/20/18 05/05/20 History tablet] Aspirin [Aspirin 81mg chewable 81 mg PO DAILY 04/08/19 05/05/20 History tab] Isosorbide Mononitrate [Imdur 30mg 30 mg PO DAILY 04/08/19 05/05/20 History ER tablet] Pantoprazole Sodium [Protonix 40mg 40 mg PO DAILY 04/08/19 05/05/20 History tablet] Simvastatin 20 mg PO HS 04/08/19 05/05/20 History tramadol 50 mg tablet 50 mg PO Q6HP PRN #120 tab 01/15/20 05/05/20 Rx Amlodipine Besylate [Norvasc 10mg 10 mg PO DAILY 05/05/20 05/05/20 History tablet] Metoprolol Succinate [Toprol XL 200 mg PO DAILY 05/05/20 05/05/20 History 100mg tablet] Warfarin Sodium 6 mg PO 1200 05/05/20 05/05/20 History cloNIDine HCL [cloNIDine 0.1mg 0.2 mg PO TID 05/05/20 05/05/20 History Tablet] Allergies Allergy/AdvReac Type Severity Reaction Status Date / Time No Known Allergies Allergy Verified 05/10/19 13:25 Exam Vital signs and Labs for Last 24 Hours: Temp Pulse Resp BP Pulse Ox 98.4 F 55 L 22 180/100 H 97 05/05/20 07:35 05/05/20 07:35 05/05/20 07:35 05/05/20 07:35 05/05/20 07:35 Laboratory Results - last 24 hr 05/05/20 03:00: WBC 8.7, RBC 4.09 L, Hgb 11.3 L, Hct 35.7 L, MCV 87.3, MCH 27.6, MCHC 31.6 L, RDW 17.1, Plt Count 241, MPV 8.1, Neut % (Auto) 87.2 H, Lymp
--- NOTE | 2020-05-05 09:01 | PC.NURSE ---
Patient now up to chair. PT/OT stated that patient walked well with standby assistance. Call light within reach and pull safety placed on patient.
--- NOTE | 2020-05-05 09:09 | HMH.PTEV ---
Physical Therapy Evaluation Rehab PT IP Evaluation Start: 05/05/20 07:48 Freq: ONCE Status: Active Protocol: Document 05/05/20 09:03 PHORNE (Rec: 05/05/20 09:09 PHORNE [id number]) Subjective/History History History 69 yoaam adm to [facility] with weakness, possible CVA, and AMS. [facility]. He is blind , but independent with all mobility at baseline. Subjective Subjective Pt does not report any c/o this am, some confusion noted. Rehab PT IP Eval Objective Appearance Patient Behavior Appropriate,Confused Patient Orientation Person Difficulty following instructions mild Speech Pattern Appropriate,Garbled Ambulation Patient Able to Ambulate Yes Ambulation Observation IP General Gait Pattern Observation Shuffling Step Ambulation Distance (feet) 6 Ambulation Assistive Device Straight Cane Ambulation Ability Contact Guard/Hand Hold Balance Ability to Arise Able, uses arms to help Sitting Balance Steady, safe Standing Balance Steady, wide stance Dynamic Sitting Balance Ability Fair Dynamic Standing Balance Ability Fair Transfers Bed Transfer Ability Contact Guard/Hand Hold Chair Transfer Ability Contact Guard/Hand Hold Sit to Stand Bed Transfer Ability Contact Guard/Hand Hold Sit to Stand Chair Transfer Ability Contact Guard/Hand Hold ROM All Extremities PT ROM Status WFL MMT All Extremities PT MMT WFL Rehab PT IP prob,goals,plan Problems Date of Evaluation: 05/05/20 PT IP Problems Bed Mobility,Transfers,Gait Rehab Potential Rehab Potential Good Plan PT Intervention Plan Bed Mobility,Transfers,Gait, Therapeutic Exercise PT Plan Frequency BID Duration LOS Discharge Goals Bed Transfer Ability Supervision/Stand by Sit to Stand Chair Transfer Ability Supervision/Stand by Ambulation Assistive Device Straight Cane Ambulation Distance (feet) 25 Discharge Plan PT Discharge Plan Pt is currently most appropriate fore rehab placement once medically stable. He will be more appropriate for return to [facility] with mild improvements in mobility. G -code Required No Eval Complexity Eval Charge Codes 16453 - Moderat
--- NOTE | 2020-05-05 09:15 | HMH.OTEV ---
OT Inpatient Evaluation Rehab OT IP Evaluation Start: 05/05/20 07:48 Freq: ONCE Status: Complete Protocol: Document 05/05/20 09:08 HALI (Rec: 05/05/20 09:15 [id number] Rehab OT IP Assessment Subjective History Pt oriented to self on arrival . Pt unable to provide birthday or place. Pt was admitted via ED on 05/05/20 due to AMS with slurred speech. Pt has a past medical history of visual impairment, CAD, DVT , Hyperlipidemia, HTN, Renal insufficiency, UTI, and brain injury. From reviewing reports it appears pt is from personal assisted. Pt reports he was independent with ADLs prior and able to ambulate without walker/cane. Subjective I will try. Objective Patient Orientation Person Upper Extremity Gross ROM WFL Bed Mobility bed mobility-scooting,bed mobility - supine/sit,bed mobility - rolling Assist Level Contact Guard/Hand Hold Transfer Training Sit/Stand Transfer Assist Level Contact Guard/Hand Hold Chair Transfer Ability Contact Guard/Hand Hold Chair Transfer Technique Sit to/from Ambulatory Chair Transfer Assistive Devices None Lower Body Dressing Ability Assistance X1 Rehab OT IP prob,goals,plan Problems Date of Evaluation: 05/05/20 OT IP Problems Bed Mobility,Transfers,Gait, Balance,Self care,Safety Rehab Potential Rehab Potential Good Equipment Needs Assistive Devices None / NA Plan OT intervention Plan Bed Mobility,Transfers,Gait, Balance,Self care,Safety, Therapeutic Exercise OT Plan Frequency Daily Duration LOS Discharge Goals Bed Mobility Ability Standby Assistance Sit to Stand Chair Transfer Ability Supervision/Stand by Chair Transfer Ability Supervision/Stand by Chair Transfer Technique Sit to/from Ambulatory Chair Transfer Assistive Devices None Feeding Ability Assist with Tray Set Up Lower Body Dressing Ability Assistance X1 Upper Body Dressing Ability Standby Assistance Bathing Ability Assistance x1 Performing Toilet Hygiene Ability Standby Assistance Overall Commode/Toilet Transfer Ability Standby As
--- NOTE | 2020-05-05 09:29 | SW/DCPLANNER ---
Addendum entered by Raysa Blanca 05/07/20 09:29: I have notified Danielle that this patient will discharge to [facility] today [facility] level of care. Discharge summary and COVID swab has been faxed. Addendum entered by Raysa Blanca 05/06/20 13:37: COVID swab is NEGATIVE and has been faxed to Danielle Reyna. Addendum entered by Raysa Blanca 05/06/20 10:36: Danielle with [facility] stated that she can accept this patient at time of discharge. Patient could potentially discharge tomorrow pending no setbacks. COVID swab will be ordered at time of discharge. Original Note: This patient resided at [facility] prior to admission to [facility] for CVA. Dr Bowden has stated that this patient will need placement at time of discharge. Per Sabino with [facility] this patient does make decisions for himself. Patient is not ready for discharge at this time but I will consult with [facility] regarding referral. I will follow up with patient this afternoon.
--- NOTE | 2020-05-05 09:41 | PC.NURSE ---
JOHANNY Perdue stated that since patient passed bedside swallow eval with no difficulty, we could administer po medications. We will still have speech eval later this afternoon.
--- NOTE | 2020-05-05 10:56 | CA_ITS ---
APPROVED REPORT Resident Medical Officer: Aminata Boateng RVT Study Quality: Adequate Indications: malignant htn, cva Risk Factors Hypertension Smoking Renal Artery Doppler Proximal (R) 196.5/ cm/sec Mid (R) 83.8/ cm/sec Distal (R) 92.5/ cm/sec Renal Aorta Ratio (R) 1.02 Segmental A. (R) 43.9/25.8 cm/sec RI: 0.41 Segmental A. Sup (R) 43.9/25.8 cm/sec Segmental A. Mid (R) 43.9/24.5 cm/sec Segmental A. Inf (R) 60.7/28.4 cm/sec Proximal (L) 180.6/ cm/sec Mid (L) 89.6/ cm/sec Distal (L) 78.0/ cm/sec Renal Aorta Ratio (L) 0.94 Segmental A. (L) 62.2/24.6 cm/sec RI: 0.60 Segmental A. Sup (L) 62.2/24.6 cm/sec Segmental A. Mid (L) 34.0/16.4 cm/sec Segmental A. Inf (L) 22.3/7.0 cm/sec Renal Measurements Kidney Size (R) 10.8x7.7 cm Kidney Size (L) 10.8x5.1 cm Cortical Thickness (L) 1.4 cm Findings Study suggests less than 60% stenosis of the bilateral renal arteries. Multiple cysts seen in the bilateral kidneys. Conclusion Study suggests less than 60% stenosis of the bilateral renal arteries. Multiple cysts seen in the bilateral kidneys, Electronically signed by : Edwar Mckay MD 05/05/2020 17:19:52
--- NOTE | 2020-05-05 11:02 | HMH.CNCARD ---
History of Present Illness Consult date: 05/05/20 Requesting physician: Shaquille Bowden Consult reason: atrial fibrillation, known to you Chief complaint: slurred speech History of present illness: This is a 69-year-old -[place] gentleman who presented to the emergency department via EMS from a personal custodial with complaints of slurred speech that started around 10:30 PM last night as well as altered mental status. It was unknown when the patient had a last known normal. The patient remains alert and oriented with slurred speech, facial palsy and dysarthria. He is complaining of weakness in his right upper extremity and some in his right lower extremity as well. The patient does have a history of a previous brain injury and is legally blind. He does have a history of atrial fibrillation, on Coumadin therapy. When he came into the hospital his INR was 1.9. He was also found to have a bladder with over 400 mL of urine and urology was consulted. This morning he denies any chest pain or pressure. He denies any shortness of breath or edema. He denies any fever, chills, nausea, vomiting, diarrhea, PND or orthopnea. His only complaint is his slurred speech and weakness to his right upper extremity and a little bit in his right lower extremity. The CT of his brain showed no acute findings. On admission the patient's blood pressure was 136/77 and has trended up to 180/100 this morning with his highest blood pressure 212/137. Dr. Dodge thinks the patient had a hypertensive vasculopathy which is why his CT had no acute findings and he does not believe this was an embolic stroke. [facility] History I have reviewed the patient's past medical history: Yes Medical History: Reports:: Atrial Fibrillation, Coronary Artery Disease, Deep Vein Thrombosis, Hyperlipidemia, Hypertension, Renal Insufficiency, Urinary Tract Infection Denies:: Cancer, Diabetes Mellitus Type 1, Diabetes Mellitus Type 2, Internal Pacemaker, MRSA, Seizures *Have you ever received a pneumonia vaccine?: No (unknown) *Have you received a flu vaccine this season?: Yes Other Medical History: Reports: Anemia, Arthritis. Denies: Blood Transfusion Reaction Laterality Cases: Right: Arthroscopy Knee Other Surgeries: Yes: Appendectomy, Cardiac Catheterization, Cardiac Surgery, Coronary Stent, Skin Cancer Excision, Other (blood clot in leg in the past). No: Pacemaker Amputation: No Fractures: No - *Social History Smoking Status: Current every day smoker Tobacco Type: cigarettes # Packs/Day (cigarettes): 1 Alcohol Intake: never Substance Use Type: denies use *Occupational Status:: disabled Housing: apartment Household Members: none *Travel in the last 8 weeks: None Family Hx:: Unable to obtain Meds Home Medications Medication Instructions Recorded Confirmed Type timolol maleate 0.5 % eye drops 1 drp OPHTHALMIC DAILY 30 Days #10 06/16/17 05/05/20 History OXcarbazepine [Trileptal 300mg 300 mg PO BID 08/20/18 05/05/20 History tablet] Aspirin [Aspirin 81mg chewable 81 mg PO DAILY 04/08/19 05/05/20 History tab] Isosorbide Mononitrate [Imdur 30mg 30 mg PO DAILY 04/08/19 05/05/20 History ER tablet] Pantoprazole Sodium [Protonix 40mg 40 mg PO DAILY 04/08/19 05/05/20 History tablet] Simvastatin 20 mg PO HS 04/08/19 05/05/20 History tramadol 50 mg tablet 50 mg PO Q6HP PRN #120 tab 01/15/20 05/05/20 Rx Amlodipine Besylate [Norvasc 10mg 10 mg PO DAILY 05/05/20 05/05/20 History tablet] Metoprolol Succinate [Toprol XL 200 mg PO DAILY 05/05/20 05/05/20 History 100mg tablet] Warfarin Sodium 6 mg PO 1200 05/05/20 05/05/20 History cloNIDine HCL [cloNIDine 0.1mg 0.2 mg PO TID 05/05/20 05/05/20 History Tablet] Allergies Allergy/AdvReac Type Severity Reaction Status Date / Time No Known Allergies Allergy Verified 05/10/19 13:25 Exam Vital signs and Labs for Last 24 Hours: Temp Pulse Resp BP Pulse Ox 98.4 F 50 L 22 180/100 H 97
[2020-05-05 11:09] LABS: Troponin I < 0.01 ng/ml (0.00-0.034)
[2020-05-05 12:20] LABS: POC Glucose,Bedside 77 (70-110)
--- NOTE | 2020-05-05 15:47 | HMH.SLMBS2 ---
Speech & Language Evaluation Speech/Language Mod Barium Swallow Start: 05/05/20 07:48 Freq: ONCE Status: Complete Protocol: Document 05/05/20 15:22 ARLETH (Rec: 05/05/20 15:47 ARLETH [id number]) General Information General Current Food Consistancy NPO Dentition Poor Dentition Comment: no molars Oxygen Status Room Air Facial Symmetry Symmetrical Patient Orientation Person Ability to Follow Directions Good Communication Ability Mild Impairment MBS Recommendations Diet Dietary Recommendations Dysphagia Mechanical Soft, Ground Meats,Thin Liquids Treatment/Strategies Treatment Recommendation Vocal Cord Adduction Exer Strategy/Precaution Recommend No Straw,Small Bites and Sips, Alternate Liquids/Solids Mod Barium Swallow Impressions Summary and Impressions Oral Phase Impression Minimal Impairment Oral Phase Summary Mr. Toussaint was given the following consistencies:thins via straw and open cup, nectar via straw and open cup, pudding, pureed, mechanical soft, and regular. Mr. Toussaint did have difficulty with chewing with lateral chew due to no molars. Pharyngeal Phase Impression Mild Impairment Pharyngeal Phase Summary Mr. Toussaint exhibited penetration into the laryngeal vestibule with thin liquids from a straw and large volume of thin liquids from open cup. He also exhibited a 45 second delay in swallow response with regular consistency and residue in pyriform sinuses with all consistencies. No marvin aspiration noted however he is at risk for aspiration from residue in pyriform sinuses. Speech/Language MBS Assessment/Goals/Plan Assessment Date of Evaluation: 05/05/20 Evaluation Type Initial Certification Assessment/Problems Dysphagia Does Patient Qualify for Service Yes Qualify/Failure Comment Mr. Toussaint would benefit from therapy targeting increasing laryngeal elevation. Recommendations PHYSICIAN CERTIFICATION: The specified therapy services are required, authorized, and reviewed every 30 days. Pt will be seen # time
--- NOTE | 2020-05-05 16:17 | HMH.CONS ---
*Admission Date: 05/05/20 *Reason for consult:: Urinary retention *History of present illness: Patient is a 69-year-old black male admitted this morning with altered mental status. When I came around to see him around 10 AM he was in the chair and not arousable despite the vat overhauler attempting to get blood. Review of the history and physical indicates he came in with some mental status changes. CT scan shows no evidence of acute abnormalities. His toxicology screen is negative. I spoke with the nurse and she knows the patient pretty well from previous admissions and states that he is usually alert and oriented but he has been in and out of cognition while here this morning. His lab work was reviewed and Covid test is IgG positive only. His renal function is little elevated at 1.7 his white count is normal and his PSA is normal at 3.0. Reviewed the resident note for correction. He is not on any prostate medication. Reportedly while in the emergency room Jason catheter was placed but no immediate post void residual is known. He did put out 4 L well in the emergency room this morning. [facility] History Medical History: Reports:: Atrial Fibrillation, Coronary Artery Disease, Deep Vein Thrombosis, Hyperlipidemia, Hypertension, Renal Insufficiency, Urinary Tract Infection Denies:: Cancer, Diabetes Mellitus Type 1, Diabetes Mellitus Type 2, Internal Pacemaker, MRSA, Seizures *Have you ever received a pneumonia vaccine?: No (unknown) *Have you received a flu vaccine this season?: Yes Other Medical History: Reports: Anemia, Arthritis. Denies: Blood Transfusion Reaction Laterality Cases: Right: Arthroscopy Knee Other Surgeries: Yes: Appendectomy, Cardiac Catheterization, Cardiac Surgery, Coronary Stent, Skin Cancer Excision, Other (blood clot in leg in the past). No: Pacemaker Amputation: No Fractures: No - *Social History Smoking Status: Current every day smoker Tobacco Type: cigarettes # Packs/Day (cigarettes): 1 Alcohol Intake: never Substance Use Type: denies use *Occupational Status:: disabled Housing: apartment Household Members: none *Travel in the last 8 weeks: None Family Hx:: Unable to obtain Review of Systems - Review of Systems Review of systems:: unable to obtain - *Neurologic Reports abnormal speech (Slurred speech), Reports localized weakness, Reports loss of vision (Patient is legally blind), Reports weakness (Right upper and lower extremity), Reports other (speech abn ), Denies abnormal movements, Denies dizziness Meds Home Medications Medication Instructions Recorded Confirmed Type timolol maleate 0.5 % eye drops 1 drp OPHTHALMIC DAILY 30 Days #10 06/16/17 05/05/20 History OXcarbazepine [Trileptal 300mg 300 mg PO BID 08/20/18 05/05/20 History tablet] Aspirin [Aspirin 81mg chewable 81 mg PO DAILY 04/08/19 05/05/20 History tab] Isosorbide Mononitrate [Imdur 30mg 30 mg PO DAILY 04/08/19 05/05/20 History ER tablet] Pantoprazole Sodium [Protonix 40mg 40 mg PO DAILY 04/08/19 05/05/20 History tablet] Simvastatin 20 mg PO HS 04/08/19 05/05/20 History tramadol 50 mg tablet 50 mg PO Q6HP PRN #120 tab 01/15/20 05/05/20 Rx Amlodipine Besylate [Norvasc 10mg 10 mg PO DAILY 05/05/20 05/05/20 History tablet] Metoprolol Succinate [Toprol XL 200 mg PO DAILY 05/05/20 05/05/20 History 100mg tablet] Warfarin Sodium 6 mg PO 1200 05/05/20 05/05/20 History cloNIDine HCL [cloNIDine 0.1mg 0.2 mg PO TID 05/05/20 05/05/20 History Tablet] Allergies Allergy/AdvReac Type Severity Reaction Status Date / Time No Known Allergies Allergy Verified 05/10/19 13:25 Exam Vital signs and Labs for Last 24 Hours: Temp Pulse Resp BP Pulse Ox 98.3 F 50 L 18 188/110 H 96 05/05/20 11:54 05/05/20 12:00 05/05/20 11:54 05/05/20 11:54 05/05/20 11:54 Laboratory Results - last 24 hr 05/05/20 03:00: WBC 8.7, RBC 4.09 L, Hgb 11.3 L, Hct 35.7 L, MCV 87.3, MCH 27.6, MCHC 31.6 L, RDW 17.1, P
[2020-05-06] VITALS: BP 126/76; PULSE 60; PULSE 64; RESP 18; TEMP 37; O2SAT 93
--- NOTE | 2020-05-06 03:36 | PC.NURSE ---
Pt. able to state name, , place; unable to state year. Can follow commands and state needs. Pt. tolerated po hs meds well. Bilat extremities equal in strength and movement. FC draining bright yellow urine. No c/o n/v/d, soa, dizziness or pain this shift.
[2020-05-06 04:00] VITALS: BP 148/81; PULSE 56; PULSE 60; RESP 18; TEMP 37.2; O2SAT 97
[2020-05-06 05:29] VITALS: BMI 26.5
[2020-05-06 07:12] LABS: Basophils % 0.4 % (0.1-2.0); Eosinophils # 0.1 K/mm3 (0.0-0.4); Hematocrit 37.1 % (42.0-52.0); Hemoglobin 11.7 g/dL (14.1-18.0); Lymphocytes # 1.3 K/mm3 (0.7-4.5); Lymphocytes % 21.2 % (10-50); Mean Corpuscular HGB Conc 31.6 g/dL (31.8-35.4); Mean Corpuscular Hemoglobin 27.8 pg (27.0-31.2); Mean Corpuscular Volume 87.7 fl (80-94); Mean Platelet Volume 7.9 fl (7.4-10.4); Monocytes # 0.5 K/mm3 (0.1-1.0); Monocytes % 7.5 % (1.7-9.3); Neutrophils # 4.3 K/mm3 (1.8-7.8); Platelet Count 231 K/mm3 (142-424); Red Blood Count 4.23 M/mm3 (4.60-6.20); White Blood Count 6.2 K/mm3 (4.8-10.8)
[2020-05-06 07:26] LABS: Chloride 112 mmol/L (98-107); Potassium 3.6 mmoL/L (3.5-5.1); Sodium 144 mmol/L (136-145)
[2020-05-06 07:29] LABS: Blood Urea Nitrogen 30 mg/dl (9-20); Creatinine Clearance Estimated 51 mL/min (50-200); Estimated Glomerular Filt Rate 40 ml/min (>60); GFR (African American) 48 ML/MIN (>60)
[2020-05-06 07:30] LABS: Anion Gap 8.6 mEq/L (5-15); Calcium 9.2 mg/dl (8.4-10.2); Carbon Dioxide 27 mmol/L (22.0-30.0); Glucose 91 mg/dl (74-100)
[2020-05-06 08:00] VITALS: BP 123/67; PULSE 70; PULSE 77; RESP 18; TEMP 36.6; O2SAT 98
--- NOTE | 2020-05-06 08:42 | HMH.ACPN2 ---
Internal Medicine - PN: Subj *Date: 05/06/20 *Time: 08:50 Interval history: 69-year-old male patient sitting up in bed resting quietly with eyes closed, awakens to verbal stimuli. Speech is more clear today, right-sided weakness is still present. He reports he is feeling better. Oxygen saturation 98% on room air Cardiology has seen and recommends: Plan: 1. The patient was admitted to the hospital secondary to slurred speech and a CVA. He did have a CT of his brain which showed no acute finding. However due to his malignant hypertension since being in the hospital and the fact that his blood pressure is 136/[address] Dodge believes that the patient has hypertensive vasculopathy and the clonidine is causing him to have episodes of really low blood pressure and he had water shedding which was why his CAT scan of the brain did not show any significant abnormality. The patient's blood pressure does need to be treated but his blood pressure goal should be around 150/90. 2. We will get a renal duplex secondary to his malignant hypertension to rule out renal artery stenosis. 3. Stop clonidine per Dr. Dodge and increase his Norvasc to 10 mg p.o. twice daily and see how his blood pressure responds to this. 4. The patient does have a history of coronary artery disease. He denies any chest pain or shortness of breath. He is ruled out for an MO. no plans for invasive cardiac testing at this time. 5. His echocardiogram is currently pending. 6. His carotid ultrasound is currently pending. 7. The patient does have chronic kidney disease with a creatinine around 1.7. This is stable. 8. The patient does have a history of atrial fibrillation on Coumadin. His INR was 1.9 on admission. He is currently in sinus rhythm. Dr. Dodge does not currently want to change his anticoagulation as he does not believe this was an embolic stroke. However we are currently awaiting results of his echocardiogram, carotid ultrasound and renal duplex. 9. Further recommendations were made pending the patient's response to treatment and the results of his echocardiogram and carotid ultrasound today. Urology has seen and recommends: 69-year-old black male presented to the emergency room this morning with some cognitive deficits. Jason catheter was placed but unsure as to how much urine was immediately obtained. He did put out 4 L while in emergency room this morning. Patient with no prior history of BPH and his retention may be a result of his decreased cognition. Recommend continuing the Jason catheter until he is back to normal cognitively at which point we can perform a voiding trial. We will start tamsulosin in the interim. Exam Vital signs and Labs for Last 24 Hours: Temp Pulse Resp BP Pulse Ox 98.9 F 56 L 18 148/81 H 97 05/06/20 04:00 05/06/20 04:00 05/06/20 04:00 05/06/20 04:00 05/06/20 04:00 Laboratory Results - last 24 hr 05/05/20 10:00: Troponin I < 0.01 05/05/20 12:13: POC Glucose 77 05/06/20 06:42: WBC 6.2 D, RBC 4.23 L, Hgb 11.7 L, Hct 37.1 L, MCV 87.7, MCH 27.8, MCHC 31.6 L, RDW 17.0, Plt Count 231, MPV 7.9, Neut % (Auto) 69.0, Lymph % (Auto) 21.2, [place] % (Auto) 7.5, Eos % (Auto) 2.0, Baso % (Auto) 0.4, Neut # (Auto) 4.3, Lymph # (Auto) 1.3, [place] # (Auto) 0.5, Eos # (Auto) 0.1, Baso # (Auto) 0.0 05/06/20 06:42: Sodium 144, Potassium 3.6, Chloride 112 H, Carbon Dioxide 27, Anion Gap 8.6, BUN 30 H, Creatinine 1.70 H, Estimated Creat Clear 51, Estimated GFR 40 L, Est GFR ( Amer) 48 L, Glucose 91, Calcium 9.2 I & O for Last 24 hours: Intake & Output 05/03/20 05/04/20 05/05/20 05/06/20 23:59 23:59 23:59 23:59 Intake Total 217 / 217 614 / 614 Output Total 6250 / 6550 400 / 400 Balance -6033 / -6333 214 / 214 Weight 202 lb 13.204 oz 200 lb 3 oz Microbiology Reports for the Last 24 Hours: Microbiology 05/05/20 03:15 Urine,Catheterized Urine Culture - Preliminary 05/05/20 03:10 Nasopharynge
--- NOTE | 2020-05-06 10:19 | HMH.PNCARD ---
Subjective Date: 05/06/20 Time: 10:19 Principal diagnosis: CVA Interval history: This is a 69-year-old -[place] gentleman who presented to the emergency department with complaints of slurred speech. The patient is being treated for CVA. Dr. Dodge feels as if the patient had a hypertensive vasculopathy that caused him to have the CVA. His blood pressure is under much better control today. It is around 148/81 this morning. We would like to keep his blood pressure around 150/90. This morning he denies any chest pain or pressure. He denies any shortness of breath or edema. He denies any fever, chills, nausea, vomiting, diarrhea, PND orthopnea. His speech has improved today and he is speaking normally again. He states he feels much better today. Exam Vital signs and Labs for Last 24 Hours: Temp Pulse Resp BP Pulse Ox 98 F 77 18 123/67 98 05/06/20 08:00 05/06/20 08:00 05/06/20 08:00 05/06/20 08:00 05/06/20 08:00 Laboratory Results - last 24 hr 05/05/20 10:00: Troponin I < 0.01 05/05/20 12:13: POC Glucose 77 05/06/20 06:42: WBC 6.2 D, RBC 4.23 L, Hgb 11.7 L, Hct 37.1 L, MCV 87.7, MCH 27.8, MCHC 31.6 L, RDW 17.0, Plt Count 231, MPV 7.9, Neut % (Auto) 69.0, Lymph % (Auto) 21.2, [place] % (Auto) 7.5, Eos % (Auto) 2.0, Baso % (Auto) 0.4, Neut # (Auto) 4.3, Lymph # (Auto) 1.3, [place] # (Auto) 0.5, Eos # (Auto) 0.1, Baso # (Auto) 0.0 05/06/20 06:42: Sodium 144, Potassium 3.6, Chloride 112 H, Carbon Dioxide 27, Anion Gap 8.6, BUN 30 H, Creatinine 1.70 H, Estimated Creat Clear 51, Estimated GFR 40 L, Est GFR ( Amer) 48 L, Glucose 91, Calcium 9.2 I & O for Last 24 hours: Intake & Output 05/03/20 05/04/20 05/05/20 05/06/20 23:59 23:59 23:59 23:59 Intake Total 217 / 217 854 / 854 Output Total 6250 / 6550 400 / 400 Balance -6033 / -6333 454 / 454 Weight 202 lb 13.204 oz 200 lb 3 oz Microbiology Reports for the Last 24 Hours: Microbiology 05/05/20 03:15 Urine,Catheterized Urine Culture - Preliminary 05/05/20 03:10 Nasopharyngeal Coronavirus COVID-19 PCR - Final Narrative: Renal duplex shows: Study suggests less than 60% stenosis of the bilateral renal arteries. Multiple cysts seen in the bilateral kidneys, echo shows: 1. Mild biatrial enlargement, normal left ventricular size, mild concentric left ventricular hypertrophy, visually estimated ejection fraction 55% with no regional wall motion abnormality, grade 1 diastolic dysfunction seen without tissue Doppler evidence of raise left atrial pressure. 2. Mildly enlarged right ventricle with normal contractility. 3. Trace mitral and tricuspid regurgitation. 4. Thickened and calcified aortic valve without Doppler evidence of aortic stenosis or aortic insufficiency. 5. No significant pericardial effusion noted. CNI shows: Duplex evaluation demonstrates stenosis of the right proximal internal carotid artery <20% with PSV <140 cm/sec, EDV <100 cm/sec, and IC/CC Ratio <4.0. Duplex evaluation demonstrates stenosis of the left proximal internal carotid artery <20% with PSV <140 cm/sec, EDV <100 cm/sec, and IC/CC Ratio <4.0. - Constitutional no acute distress, average body habitus - *Routine HEENT Exam Head: Present: normocephalic, atraumatic Eye: Present: EOMI, PERRL ENT: Present: mucous membranes moist - *Routine Neck Exam Present: supple, full ROM, normal carotid upstroke. Absent: JVD, carotid bruit, lymphadenopathy - *Routine Respiratory Exam Present: CTA bilaterally - *Routine Cardiovascular Exam Present: RRR, Normal S1, Normal S2. Absent: murmur - *Routine Abdominal Exam Present: soft, normoactive bowel sounds. Absent: tenderness, distended - *Routine Extremities Exam Present: full ROM, pulses intact, normal capillary refill. Absent: cyanosis, clubbing, edema - *Routine Skin Exam Present: intact, warm. Absent: erythema, rash - *Routine Neurological Exam Present: alert, oriented X3, CN II-XII i
[2020-05-06 12:00] VITALS: BP 122/69; PULSE 60; RESP 20; TEMP 36.4; O2SAT 98
[2020-05-06 16:00] VITALS: BP 133/64; PULSE 50; PULSE 65; RESP 20; TEMP 37; O2SAT 97
--- NOTE | 2020-05-06 17:19 | HMH.CONFU ---
Internal Medicine - PN: Subj *Date: 05/06/20 *Time: 17:19 Interval history: Patient is sitting up today and is alert and oriented. He has eaten all of his breakfast. He denies a history urinary difficulties. Exam Vital signs and Labs for Last 24 Hours: Temp Pulse Resp BP Pulse Ox 97.6 F 60 20 122/69 98 05/06/20 12:00 05/06/20 12:00 05/06/20 12:00 05/06/20 12:00 05/06/20 12:00 Laboratory Results - last 24 hr 05/06/20 06:42: WBC 6.2 D, RBC 4.23 L, Hgb 11.7 L, Hct 37.1 L, MCV 87.7, MCH 27.8, MCHC 31.6 L, RDW 17.0, Plt Count 231, MPV 7.9, Neut % (Auto) 69.0, Lymph % (Auto) 21.2, [place] % (Auto) 7.5, Eos % (Auto) 2.0, Baso % (Auto) 0.4, Neut # (Auto) 4.3, Lymph # (Auto) 1.3, [place] # (Auto) 0.5, Eos # (Auto) 0.1, Baso # (Auto) 0.0 05/06/20 06:42: Sodium 144, Potassium 3.6, Chloride 112 H, Carbon Dioxide 27, Anion Gap 8.6, BUN 30 H, Creatinine 1.70 H, Estimated Creat Clear 51, Estimated GFR 40 L, Est GFR ( Amer) 48 L, Glucose 91, Calcium 9.2 I & O for Last 24 hours: Intake & Output 05/03/20 05/04/20 05/05/20 05/06/20 23:59 23:59 23:59 23:59 Intake Total 217 / 217 854 / 854 Output Total 6250 / 6550 400 / 400 Balance -6033 / -6333 454 / 454 Weight 92 kg 90.804 kg Microbiology Reports for the Last 24 Hours: Microbiology 05/06/20 10:50 Nasopharyngeal Coronavirus COVID-19 PCR - Final 05/05/20 03:15 Urine,Catheterized Urine Culture - Preliminary - *Routine HEENT Exam Head: Present: normocephalic Eye: Present: other (eyes are swollen,lids are almost closed) ENT: Present: nares patent - *Routine Neck Exam Absent: lymphadenopathy - *Routine Respiratory Exam Absent: accessory muscle use - *Routine Cardiovascular Exam Present: RRR - *Routine Abdominal Exam Present: soft - *Routine Extremities Exam Absent: cyanosis, clubbing, edema - *Routine Skin Exam Present: warm. Absent: rash - *Routine Neurological Exam Present: alert, oriented X3 Assessment and Plan (1) CVA (cerebral vascular accident) Status: Acute Qualifiers: CVA mechanism: unspecified Qualified Code(s): I63.9 - Cerebral infarction, unspecified Category: Medical Code(s): I63.9 - Cerebral infarction, unspecified (2) Slurring of speech Status: Resolved Category: Medical Code(s): R47.81 - Slurred speech (3) A-fib Status: Acute Qualifiers: Atrial fibrillation type: unspecified chronic Qualified Code(s): I48.20 - Chronic atrial fibrillation, unspecified Category: Medical Code(s): I48.91 - Unspecified atrial fibrillation (4) Overweight (BMI 25.0-29.9) Status: Acute Category: Medical Code(s): E66.3 - Overweight (5) Renal insufficiency Status: Acute Category: Medical Code(s): N28.9 - Disorder of kidney and ureter, unspecified (6) Visual impairment Status: Acute Category: Medical Code(s): H54.7 - Unspecified visual loss (7) CAD (coronary artery disease) Status: Chronic Qualifiers: Coronary Disease-Associated Artery/Lesion type: [place] artery [place] vs. transplanted heart: [place] heart Associated angina: with unspecified angina Qualified Code(s): I25.119 - Atherosclerotic heart disease of [place] coronary artery with unspecified angina pectoris Category: Medical Code(s): I25.10 - Atherosclerotic heart disease of [place] coronary artery without angina pectoris (8) Malignant hypertension Status: Acute Category: Medical Code(s): I10 - Essential (primary) hypertension (9) HHD (hypertensive heart disease) Status: Chronic Qualifiers: Heart failure presence: without heart failure Qualified Code(s): I11.9 - Hypertensive heart disease without heart failure Category: Medical Code(s): I11.9 - Hypertensive heart disease without heart failure (10) HLD (hyperlipidemia) Status: Chronic Qualifiers: Hyperlipidemia type: mixed hyperlipidemia Qualified Code(s): E78.2 - Mixed hyperlipidemia Category: Med
--- NOTE | 2020-05-06 18:49 | INFXCTL.NOTE ---
Pt alert to self and place. Speech is much more clear today. He has ambulated in silva with assist from physical therapy and tolerated well. Jason removed and pt instructed on use of urinal. He has been up to the chair from most of the shift. No complaints verbalized. No change from morning assessment. Will continue to monitor.
[2020-05-06 20:00] VITALS: BP 150/95; PULSE 50; PULSE 66; RESP 20; TEMP 36.9; O2SAT 93
[2020-05-06 21:48] LABS: POC Glucose,Bedside 143 (70-110)
[2020-05-07] VITALS: BP 156/83; PULSE 59; PULSE 60; RESP 18; TEMP 36.8; O2SAT 97
[2020-05-07 04:00] VITALS: BP 137/69; PULSE 60; PULSE 66; RESP 18; TEMP 37; O2SAT 96
[2020-05-07 07:42] LABS: Basophils % 0.6 % (0.1-2.0); Eosinophils # 0.3 K/mm3 (0.0-0.4); Eosinophils % 4.1 % (0.1-12.0); Hematocrit 38.7 % (42.0-52.0); Hemoglobin 12.4 g/dL (14.1-18.0); Lymphocytes # 1.7 K/mm3 (0.7-4.5); Lymphocytes % 22.2 % (10-50); Mean Corpuscular Hemoglobin 28.1 pg (27.0-31.2); Mean Corpuscular Volume 87.8 fl (80-94); Mean Platelet Volume 8.4 fl (7.4-10.4); Monocytes # 0.7 K/mm3 (0.1-1.0); Monocytes % 8.6 % (1.7-9.3); Neutrophils % 64.6 % (37.0-80.0); Platelet Count 229 K/mm3 (142-424); Red Blood Count 4.41 M/mm3 (4.60-6.20); Red Cell Distribution Width 16.8 % (11.5-17.5); White Blood Count 7.7 K/mm3 (4.8-10.8)
[2020-05-07 08:00] VITALS: BP 122/74; PULSE 71; RESP 18; TEMP 36.8; O2SAT 95
[2020-05-07 08:17] LABS: Chloride 112 mmol/L (98-107); Sodium 144 mmol/L (136-145)
[2020-05-07 08:20] LABS: Blood Urea Nitrogen 31 mg/dl (9-20); Creatinine Clearance Estimated 54 mL/min (50-200); Estimated Glomerular Filt Rate 43 ml/min (>60); GFR (African American) 52 ML/MIN (>60)
[2020-05-07 08:21] LABS: Carbon Dioxide 26 mmol/L (22.0-30.0); Glucose 81 mg/dl (74-100)
--- NOTE | 2020-05-07 08:29 | HMH.DCSUM ---
General - General Admission date:: 05/05/20 Discharge date: 05/07/20 HPI HPI: 69 yr old male presented to ed via ems from personal skilled nursing with c/o reported to have slurred speech noted 2229 with altered mental status- uncertain as to last normal. Patient is alert and oriented with slurred speech, facial palsy with dysarthia and weakness lt upper ext. hx of prev brain injury and has a fib on Coumadin - no fever or trauma - has hx of visual impairment-legally blind. While in ed pt was found to have over 400 ml in bladder, consult urology.Admitted for further work up. Hospital Course Hospital Course: This is a 69-year-old -[place] gentleman who presented to the emergency department via EMS from a personal skilled nursing with complaints of slurred speech that started around 10:30 PM last night as well as altered mental status. It was unknown when the patient had a last known normal. The patient remains alert and oriented with slurred speech, facial palsy and dysarthria. He is complaining of weakness in his right upper extremity and some in his right lower extremity as well. The patient does have a history of a previous brain injury and is legally blind. He does have a history of atrial fibrillation, on Coumadin therapy. When he came into the hospital his INR was 1.9. He was also found to have a bladder with over 400 mL of urine and urology was consulted. This morning he denies any chest pain or pressure. He denies any shortness of breath or edema. He denies any fever, chills, nausea, vomiting, diarrhea, PND or orthopnea. His only complaint is his slurred speech and weakness to his right upper extremity and a little bit in his right lower extremity. The CT of his brain showed no acute findings. On admission the patient's blood pressure was 136/77 and has trended up to 180/100 this morning with his highest blood pressure 212/137. Dr. Dodge thinks the patient had a hypertensive vasculopathy which is why his CT had no acute findings and he does not believe this was an embolic stroke (per Travis Kim DIET ASSISTANT). COVID-19 PCR negative, SARS-COV-2 IgG positive and SARS-COV-2 IgM negative 05/05/[address]: FINDINGS: No midline shift, mass effect, intracranial hemorrhage, hydrocephalus, or extra-axial fluid collection is evident. There is generalized atrophy with hypoattenuation of the periventricular white matter consistent with microangiopathic changes.. Encephalomalacia changes are present in the left frontal lobe unchanged the calvarium has an unremarkable appearance. No mastoid effusion. Mucosal thickening involves the ethmoid sinuses and right maxillary sinus. There is chronic fracture of the left frontal sinus and roof of the left orbit. Deformity noted of the left globe. IMPRESSION: Overall no change with no acute finding. Dictated by: Woody, 05/05/20 CXR: FINDINGS: There is cardiomegaly without failure. There is mild prominence of the mediastinum which may be due to tortuosity/ectasia the thoracic aorta. There are atelectatic changes in the right lower lobe. There are low lung volumes. No acute bony abnormalities. IMPRESSION: Cardiomegaly with low lung volumes and right basilar atelectasis Dictated by: Woody 05/05/20 Abd/Pelvis CT: IMPRESSION: 1. Overall no significant change with no acute finding compared 02/03/2017. 2. Multiple bilateral renal cyst and bilateral nephrolithiasis. 3. Enlarged prostate. 4. Jason catheter present with collapsed urinary bladder with mild thickening of the bladder wall which may be due to cystitis or collapse mucosa 5. Hepatic cysts Dictated by: Woody 05/05/20 Carotid Duplex: Conclusion Duplex evaluation demonstrates stenosis of the right proximal internal carotid artery <20% with PSV <140 cm/sec, EDV <100 cm/sec, and IC/CC Ratio <4.0. Duplex evaluation demonstrates stenosis of the left proximal internal carotid artery <20% with PSV <140 cm/sec, ED
[2020-05-07 10:58] LABS: INR 1.47 (0.9-1.1); Prothrombin Time 15.8 seconds (9.4-11.8)
[2020-06-04 12:26] LABS: POC Glucose,Bedside 132 (70-110)
== END 2020-05-07 11:41 | disposition home or self-care (01) | DRG 65 ==
LOC: ER 03:22 → 2ND 05:25
PROVIDERS: Nurse Practitioner Family; Admitting Provider Emergency Medicine; Emergency Provider Emergency Medicine; PCP Emergency Medicine; Visit Provider Emergency Medicine
DX: I63.9 Cerebral infarction, unspecified (principal); G81.91 Hemiplegia, unspecified affecting right dominant side; I48.20 Chronic atrial fibrillation, unspecified; R47.81 Slurred speech; I11.0 Hypertensive heart disease with heart failure; I12.9 Hypertensive chronic kidney disease with stage 1 through stage 4 chronic kidney disease, or unspecified chronic kidney disease; N18.9 Chronic kidney disease, unspecified; Z72.0 Tobacco use; I25.10 Atherosclerotic heart disease of native coronary artery without angina pectoris; Z79.01 Long term (current) use of anticoagulants; Z79.82 Long term (current) use of aspirin; Z79.899 Other long term (current) drug therapy
CPT/HCPCS: 36415; 70371; 70450; 71045; 74176; 80048; 80053; 80305; 81001; 82962; 84145; 84484; 85007; 85025; 85610; 85651; 85730; 86140; 86328; 87077; 87086; 87088; 92526; 92611; 93005; 93306; 93880; 93976; 97110; 97116; 97162; 97166; 97530; 99285; G0103; U0003

== ENCOUNTER 2020-06-04 10:38 | Outpatient (CLI) | payer MEDICARE, SELFPAY | END 2020-06-04 11:06 | disposition home or self-care (01) | LOC: ACC 10:39 | PROVIDERS: PCP Emergency Medicine; Visit Provider Emergency Medicine | DX: Z51.81 Encounter for therapeutic drug level monitoring (principal); Z79.01 Long term (current) use of anticoagulants | CPT/HCPCS: 85610; 99211; G0463 ==

== ENCOUNTER → 2020-06-24 06:24 | Outpatient (CLI) | payer MEDICARE, SELFPAY ==
--- NOTE | 2020-06-24 06:24 | NM_ITS ---
APPROVED REPORT Exam: Nuclear Stress Test Indication: Chest pain, SOB, HTN, High cholesterol, Former tobacco use Patient Location: Outpatient Stress Tech: Jackelyn Elise [facility] Tech:Chey Mota, ARRT, RT (R)(N) Ht: 6 ft 4 in Wt: 236 lbs HR: 66 bpm BP: 171/96 mmHg BSA: 2.38 m2 BMI: 28.7 History: Chest pain, SOB, HTN, High cholesterol, Former tobacco use Procedure: Patient received a 0.4 mg of intravenous Lexiscan, resting heart rate 66 bpm, resting blood pressure 171/96 mmHg, with Lexiscan maximum heart rate achived was 74 bpm which is Less than 85 % of the maximum predicted heart rate and blood pressure was 158/88 mmHg. Electrocardiogram Resting electrocardiogram shows sinus rhythm right ventricular conduction delay, with Lexiscan there is less than 1.[address] segment depression noted from the baseline EKG. The EKG portion of the Lexiscan is nondiagnostic. Cardiac Stress and Resting SPECT Images: Cardiac Stress and Resting SPECT images were obtained using technetium 99m Myoview 30.2 mCi stress and 9.97 mCi at rest. Gated SPECT for analysis of segmental wall motion and calculation of the ejection fraction also done, prone images were also obtained. Cardiac stress and resting SPECT images show uniform myocardial activity without segmental perfusion abnormality, computer derived ejection fraction is 56% with no regional wall motion abnormality, right ventricle is normal size and contractility. Conclusion: 1. The EKG portion of the Lexiscan is nondiagnostic. 2. No scintigraphic evidence of reversible ischemia seen, computer derived ejection fraction is 56% with no regional wall motion abnormality, right ventricle is normal size and contractility. 3. Normal Lexiscan Myoview study. Electronically signed by : Fernando Phan, 06/24/2020 22:10:43
--- NOTE | 2020-06-24 06:24 | CA_ITS ---
APPROVED REPORT Exam: Pharmacologic Technologist: Jackelyn Elise Ht: 6 ft 4 in Wt: 234 lbs BSA: 2.37 m2 HR: 66 bpm BP: 171/96 mmHg Indications: Shortness of Breath Medical History Medications: Amlodipine,,,,, Isosorbide,,,,, Aspirin,,,,, Warfarin,,,,, Metoprolol,,,,, Simvastatin,,,,, Pantoprazole,,,,, TAMSULOSIN,,,,, Tramadol,,,,, Oxcarbazepine,,,,, Stress Test Details Test: LEXISCAN Reversal agent Aminophyline 100.0 mg, given intravenously for nausea. HR Resting HR: 62 bpm Max Heart Rate (APMHR): 149.639181 bpm Max HR Achieved: 74 bpm Target HR (85% APMHR): 126.836582 bpm % of APMHR: 49.66 Recovery HR: 68 bpm BP Resting BP: 171.0/96.0 mmHg Max BP: 171.0/96.0 mmHg Recovery BP: 165.0/93.0 mmHg ECG Resting ECG: Normal sinus rhythm, incomplete right bundle branch block, rightward axis, T wave abnormalities inferiorly Clinical Exercise duration: 04:00 min Highest Stage Achieved: Exercise capacity: 1.0 METs Stress ECG Conclusion Symptoms: Shortness of air, chest pain, nausea, malaise Arrhythmias/Ectopy: None ST-T Changes: No significant changes. Conclusion: Unremarkable Lexiscan stress. Myoview images reported separately. Electronically signed by : Fernando Phan, 06/24/2020 22:01:12
--- NOTE | 2020-06-24 08:09 | HMH.ITSHM ---
Current Home Medications as stated by this patient Edi Toussaint or guest services representative. []AMLODIPINE ASA ISOSORBIDE METOPROLOL OXCARBAZEPINE PANTOPRAZOLE SIMVASTATIN TAMSULOSIN TIMOLOL WARFARIN TRAMADOL
== END ==
PROVIDERS: PCP Emergency Medicine; Visit Provider Nurse Practitioner Family
DX: E78.5 Hyperlipidemia, unspecified (principal); I25.10 Atherosclerotic heart disease of native coronary artery without angina pectoris; I27.20 Pulmonary hypertension, unspecified; I51.89 Other ill-defined heart diseases; I99.9 Unspecified disorder of circulatory system; R06.02 Shortness of breath; R94.30 Abnormal result of cardiovascular function study, unspecified
CPT/HCPCS: 78452; 93017; A9502; J0280; J2785

== ENCOUNTER 2020-07-01 10:41 | Outpatient (CLI) | payer MEDICARE, SELFPAY ==
[2020-07-01 10:57] LABS: PHA INR Fingerstick 1.9 (0.9-1.1)
== END 2020-07-01 11:03 | disposition home or self-care (01) ==
LOC: ACC 10:43
PROVIDERS: PCP Emergency Medicine; Visit Provider Emergency Medicine
DX: Z51.81 Encounter for therapeutic drug level monitoring (principal); Z79.01 Long term (current) use of anticoagulants
CPT/HCPCS: 85610; 99211; G0463

== ENCOUNTER 2020-07-08 21:06 | Observation (INO) | payer MEDICARE, SELFPAY ==
[2020-07-08 21:03] VITALS: BP 148/88; PULSE 77; RESP 18; O2SAT 97; BMI 28.0
--- NOTE | 2020-07-08 21:22 | XR_ITS ---
PROCEDURE INFORMATION: Exam: XR Chest Exam date and time: 07/08/2020 9:22 PM Age: 69 years old Clinical indication: Type not specified; Patient HX: Chest pain, HX of cardiac stents placed. TECHNIQUE: Imaging protocol: XR of the chest. Views: 1 view. COMPARISON: SD XR CHEST PORTABLE 05/05/2020 3:34 AM FINDINGS: Lungs: Hazy interstitial opacities in both lungs could reflect interstitial edema versus interstitial pneumonia. Granulomatous change. Pleural spaces: Unremarkable. No pleural effusion. No pneumothorax. Heart/Mediastinum: Cardiomegaly. Bones/joints: Unremarkable. IMPRESSION: Interstitial opacities bilaterally could reflect edema versus pneumonia. Correlate clinically.
--- NOTE | 2020-07-08 21:22 | ECG_ITS ---
APPROVED REPORT Exam: Resting ECG HR:74 bpm ECG Measurements Heart Rate 74 AXES IN 184 P 38 QRSd 100 QRS -7 QT 398 T 23 QTc 441 Conclusion Normal sinus rhythm Normal ECG Electronically signed by : Syed Modi, 07/10/2020 21:21:59
[2020-07-08 21:30] LABS: Basophils % 0.4 % (0.1-2.0); Eosinophils # 0.2 K/mm3 (0.0-0.4); Eosinophils % 2.8 % (0.1-12.0); Hematocrit 34.4 % (42.0-52.0); Hemoglobin 10.7 g/dL (14.1-18.0); Lymphocytes # 0.8 K/mm3 (0.7-4.5); Lymphocytes % 13.8 % (10-50); Mean Corpuscular HGB Conc 31.2 g/dL (31.8-35.4); Mean Corpuscular Volume 89.9 fl (80-94); Mean Platelet Volume 7.5 fl (7.4-10.4); Monocytes # 0.4 K/mm3 (0.1-1.0); Monocytes % 7.1 % (1.7-9.3); Neutrophils # 4.5 K/mm3 (1.8-7.8); Platelet Count 230 K/mm3 (142-424); Red Blood Count 3.83 M/mm3 (4.60-6.20); Red Cell Distribution Width 15.4 % (11.5-17.5)
[2020-07-08 21:44] LABS: NT Pro Brain Natriuretic Pep. 532 pg/mL (0-125)
[2020-07-08 21:50] LABS: Troponin I < 0.01 ng/ml (0.00-0.034)
--- NOTE | 2020-07-08 21:52 | HMH.EDNVD ---
ED Disposition Clinical Impression: Chest pain in adult, Overweight (BMI 25.0-29.9), ELMER (acute kidney injury) CAD (coronary artery disease) Qualifiers: Coronary Disease-Associated Artery/Lesion type: unspecified vessel or lesion type [place] vs. transplanted heart: [place] heart Associated angina: with unspecified form of angina Qualified Code(s): I25.119 - Atherosclerotic heart disease of [place] coronary artery with unspecified angina pectoris Disposition: Admitted as Observation Condition on Discharge: Good - Critical Care Critical Care Time: No Attestation: On 07/08/20, the high probability of a clinically significant, sudden or life threatening deterioration of the following system(s) required my full and direct attention, intervention and personal management. The time I documented below is in addition to time spent performing reported procedures but includes the following listed in this critical care notation. Medical Decision Making - Medical Records Medical records reviewed: Yes: I reviewed the patient's medical records. - River Inquiry Pt receiving controlled substance: No Vital Signs: 07/08/20 21:03 Pulse Rate [Right Brachial] 77 Respiratory Rate 18 Blood Pressure [Right Arm] 148/88 H Blood Pressure Mean [Right Arm] 108 Blood Pressure Source [Right Arm] Automatic Cuff Blood Pressure Position [Right Arm] Sitting 02 Sat by Pulse Oximetry 97 Oxygen Delivery Method Room Air - Lab Data Lab results reviewed: Yes: I reviewed the patient's lab results. Lab Results 07/08/20 21:05: WBC 6.0, RBC 3.83 L, Hgb 10.7 L, Hct 34.4 L, MCV 89.9, MCH 28.0, MCHC 31.2 L, RDW 15.4, Plt Count 230, MPV 7.5, Neut % (Auto) 76.0, Lymph % (Auto) 13.8, Antelope % (Auto) 7.1, Eos % (Auto) 2.8, Baso % (Auto) 0.4, Neut # (Auto) 4.5, Lymph # (Auto) 0.8, Antelope # (Auto) 0.4, Eos # (Auto) 0.2, Baso # (Auto) 0.0 07/08/20 21:05: Sodium 144, Potassium 4.2, Chloride 109 H, Carbon Dioxide 26, Anion Gap 13.2, BUN 23 H, Creatinine 2.20 H, Estimated Creat Clear 45, Estimated GFR 30 L, Est GFR ( Amer) 36 L, Glucose 109 H, Calcium 9.3, Total Bilirubin 0.4, Direct Bilirubin 0.2, Conjugated Bilirubin 0.0, Indirect Bilirubin 0.2, Unconjugated Bilirubin 0.1, AST 22, ALT 13, Alkaline Phosphatase 68, Troponin I < 0.01, NT-Pro-B Natriuret Pep 532 H, Total Protein 7.8, Albumin 4.4, TSH 0.94 07/08/20 21:05: Lipase 88 07/08/20 21:05: PT 16.7 H, INR 1.46 H Result diagrams: 07/08/20 21:05 07/08/20 21:05 Orders (Tests/Meds): ED MEDICATIONS Discontinued Medications Generic Name Dose Route Start Last Admin Trade Name Freq PRN Reason Stop Dose Admin Aspirin 324 mg 07/08/20 23:15 07/08/20 23:18 Aspirin 81mg Chewable Tablet PO 07/08/20 23:16 324 mg ONCE ONE Administration ORDERS Category Date Time Status Covid-19 Nasal PCR ([facility]) Routine Lab 07/08/20 23:20 Received Troponin I Q3H Lab 07/09/20 00:30 Ordered Troponin I Q3H Lab 07/09/20 03:30 Ordered - Radiology Data #1 Image(s): Chest Image Reviewed: Yes I reviewed the patient's radiology image Preliminary Findings: Abnormal (nonspecific) - CT Data CT Scan: Abdomen, Pelvis Time Received: 23:[address] Reviewed: Yes: I have viewed the radiologist's interpretation Preliminary Findings: Abnormal (nonspecific) - ECG Data Tracing #1 Normal Sinus Rhythm: Yes Ischemic changes: non-specific ST-T wave changes - DAFNE Score for Non-Stemi Age of Patient: 70-79 years old Heart Rate: 70-89 bpm Systolic Blood Pressure: 140-159 mmHg Serum Creatinine: 2.00-3.99 mg/dl CHF [place] Class: I-No CHF Other Risk Factors: None Non-Stemi Risk Score: 129 Medical Decision Narrative: pt with chest pain with sig risk factors and has vomiting will need admit for eval Nausea/Vomiting/Diarrhea HPI - General Chief complaint: Nausea/Vomiting/Diarrhea Stated complaint: nausea, abd and chest Time Seen by Provider: 07/08/20 21:10 Mode of Arrival: EMS Source of Information: Pat
--- NOTE | 2020-07-08 21:53 | CT_ITS ---
PROCEDURE INFORMATION: Exam: CT Abdomen And Pelvis Without Contrast Exam date and time: 07/08/2020 9:53 PM Age: 69 years old Clinical indication: Generalized; Patient HX: Nausea and vomiting with abdominal pain all day. ; Additional info: Abd pain TECHNIQUE: Imaging protocol: Computed tomography of the abdomen and pelvis without contrast. Radiation optimization: All CT scans at this facility use at least one of these dose optimization techniques: automated exposure control; mA and/or kV adjustment per patient size (includes targeted exams where dose is matched to clinical indication); or iterative reconstruction. COMPARISON: CT ABDOMEN PELVIS WO CON 05/05/2020 12:31 PM FINDINGS: Lungs: In the lung bases there is scattered atelectasis. Liver: Normal. No mass. Gallbladder and bile ducts: Cholecystectomy. Pancreas: Normal. No ductal dilation. Spleen: Normal. No splenomegaly. Adrenal glands: Normal. No mass. Kidneys and ureters: Innumerable bilateral simple renal cysts largest in the left kidney 3.4 cm. There is mild bilateral hydronephrosis and ureteral dilatation likely due to back pressure from the distended urinary bladder. Nonobstructing bilateral renal stones. Stomach and bowel: Unremarkable. No obstruction. No mucosal thickening. Appendix: No evidence of appendicitis. Intraperitoneal space: Mild haziness in the mesentery in the right mid abdomen which could be due to nonspecific panniculitis in this region. Vasculature: Unremarkable. No abdominal aortic aneurysm. Lymph nodes: Unremarkable. No enlarged lymph nodes. Urinary bladder: Unremarkable as visualized. Reproductive: Enlarged prostate. Bones/joints: Unremarkable. No acute fracture. Soft tissues: Unremarkable. IMPRESSION: 1. Mild haziness in the mesentery in the right mid abdomen which could be due to nonspecific panniculitis. 2. Innumerable bilateral renal cysts and mild bilateral hydronephrosis and ureteral dilatation likely due to back pressure from distended urinary bladder. No ureteral stones are seen. 3. Enlarged prostate. 4. No colitis or small bowel obstruction. COMMENTS: Consistent with the [place] [employer]'s Incidental Findings Committee white paper (J Am Rupa Radiol 2018): Any incidental renal lesion less than 1 cm or classified as too small to characterize, or any incidental cystic renal lesion characterized as simple-appearing, is likely benign. No follow-up imaging is recommended for these lesions per consensus recommendations based on imaging criteria.
[2020-07-08 21:56] LABS: Alanine Aminotransferase 13 U/L (12-78); Albumin Level 4.4 g/dl (3.5-5.0); Alkaline Phosphatase 68 U/L (38-126); Anion Gap 13.2 mEq/L (5-15); Aspartate Amino Transferase 22 U/L (17-59); Bilirubin,Direct 0.2 mg/dl (0.0-0.4); Bilirubin,Indirect 0.2 mg/dL (0.0-0.9); Bilirubin,Total 0.4 mg/dl (0.2-1.3); Bilirubin,Unconjugated 0.1 mg/dL (0.0-1.1); Blood Urea Nitrogen 23 mg/dl (9-20); Calcium 9.3 mg/dl (8.4-10.2); Carbon Dioxide 26 mmol/L (22.0-30.0); Chloride 109 mmol/L (98-107); Creatinine Clearance Estimated 45 mL/min (50-200); Estimated Glomerular Filt Rate 30 ml/min (>60); GFR (African American) 36 ML/MIN (>60); Glucose 109 mg/dl (74-100); Potassium 4.2 mmoL/L (3.5-5.1); Sodium 144 mmol/L (136-145); Total Protein,Serum 7.8 g/dl (6.3-8.2)
[2020-07-08 22:06] LABS: Thyroid Stimulating Hormone 0.94 uIU/mL (0.465-4.68)
[2020-07-08 22:33] VITALS: BP 147/89; PULSE 92; RESP 22; O2SAT 94
[2020-07-08 23:00] VITALS: BP 158/86; PULSE 84; RESP 17; O2SAT 93
[2020-07-08 23:17] LABS: Lipase 88 U/L (23-300)
[2020-07-08 23:26] LABS: INR 1.46 (0.9-1.1); Prothrombin Time 16.7 seconds (10.1-12.5)
[2020-07-09] VITALS (9 sets, daily range): BP systolic 130–191; BP diastolic 79–97; PULSE 60–90; RESP 16–20; TEMP 36.6–37.8; O2SAT 92–97; BMI 28.9; BMI 29.0
--- NOTE | 2020-07-09 01:05 | PC.NURSE ---
patient up to floor via wheelchair.
[2020-07-09 01:09] LABS: Troponin I < 0.01 ng/ml (0.00-0.034)
--- NOTE | 2020-07-09 03:46 | PC.NURSE ---
A&OX4. PT IS VERY HAPPY AND ENTHUSIASTIC. LAUGHS AND HAS FUN WITH STAFF. PT UP WITH STANDBY ASSIST IN ROOM. PT SHOWERED HIMSELF, NO DIFFICULTY. PT TOLERATING RA. PT HAS HAD NO C/O CP OR NA/VO SINCE ARRIVING TO FLOOR. PT TOLERATING NPO DIET. $51, 2 RINGS, BRACELET, WATCH, AND WALLET LOCKED IN MED DRAWER. PT RESTING IN BED AT THIS TIME. VSS WILL CONTINUE TO MONITOR.
[2020-07-09 04:11] LABS: Troponin I < 0.01 ng/ml (0.00-0.034)
--- NOTE | 2020-07-09 07:12 | P.CONPHA_ITS ---
[facility] Pharmacy VTE Monitoring - Patient Demographics Admission date: 07/09/20 Report Date: 07/09/20 Time: 07:12 Allergies/Adverse Reactions: Patient Allergies No Known Allergies Allergy (Verified 07/01/20 10:08) Height: 1.93 m Weight: 107.757 kg Patient Problems: Current Active Problems Acute kidney injury (Acute) Overweight (BMI 25.0-29.9) (Chronic) CAD (coronary artery disease) (Chronic) Chest pain in adult (Acute) - VTE Risk Labs: VTE Related Lab Results Hgb 10.7 g/dL (14.1-18.0) L 07/08/20 21:05 Hct 34.4 % (42.0-52.0) L 07/08/20 21:05 Plt Count 230 K/mm3 (142-424) 07/08/20 21:05 PT 16.7 seconds (10.1-12.5) H 07/08/20 21:05 INR 1.46 (0.9-1.1) H 07/08/20 21:05 BUN 23 mg/dl (9-20) H 07/08/20 21:05 Creatinine 2.20 mg/dl (0.66-1.25) H 07/08/20 21:05 Estimated Creat Clear 45 mL/min (50-200) 07/08/20 21:05 - Prophylaxis VTE Prophylaxis Ordered?: Yes Types of VTE Prophylaxis: TEDS Knee High, Pharmacological Location of Applied Device: Bilateral Lower Extremeties Pharmacologic Type: Warfarin
[2020-07-09 07:18] LABS: Basophils % 0.3 % (0.1-2.0); Eosinophils % 0.9 % (0.1-12.0); Hematocrit 33.1 % (42.0-52.0); Hemoglobin 10.5 g/dL (14.1-18.0); Lymphocytes # 0.8 K/mm3 (0.7-4.5); Lymphocytes % 15.3 % (10-50); Mean Corpuscular HGB Conc 31.7 g/dL (31.8-35.4); Mean Corpuscular Hemoglobin 28.2 pg (27.0-31.2); Mean Corpuscular Volume 88.7 fl (80-94); Mean Platelet Volume 7.9 fl (7.4-10.4); Monocytes # 0.3 K/mm3 (0.1-1.0); Monocytes % 6.7 % (1.7-9.3); Neutrophils # 3.8 K/mm3 (1.8-7.8); Neutrophils % 76.8 % (37.0-80.0); Platelet Count 223 K/mm3 (142-424); Red Blood Count 3.73 M/mm3 (4.60-6.20); Red Cell Distribution Width 15.7 % (11.5-17.5)
[2020-07-09 07:33] LABS: Chloride 110 mmol/L (98-107); Potassium 3.6 mmoL/L (3.5-5.1); Sodium 143 mmol/L (136-145)
[2020-07-09 07:36] LABS: Anion Gap 13.6 mEq/L (5-15); Blood Urea Nitrogen 22 mg/dl (9-20); Carbon Dioxide 23 mmol/L (22.0-30.0); Creatinine Clearance Estimated 57 mL/min (50-200); Estimated Glomerular Filt Rate 37 ml/min (>60); GFR (African American) 45 ML/MIN (>60)
[2020-07-09 07:37] LABS: Calcium 8.4 mg/dl (8.4-10.2); Glucose 85 mg/dl (74-100); Magnesium 1.9 mg/dl (1.6-2.3)
--- NOTE | 2020-07-09 09:07 | HMH.PHAINT ---
MEDICATION RECONCILIATION COMPLETED USING CUSTODIAL MAR
--- NOTE | 2020-07-09 09:20 | SW/DCPLANNER ---
Addendum entered by Raysa [place] 07/10/20 14:25: [employer] has been arranged for this patient. ID# [id number] Addendum entered by [facility] 07/10/20 13:31: Iron has stated that this patient is stable for discharge. I have spoke with Sabino and she has stated this patient can return today. I will set up [employer] once patient is completely discharged. No further COVID testing is needed per Sabino. Addendum entered by [facility] 07/10/20 10:03: The plan is for this patient to receive a diet this morning and PT/OT evaluation and discharge back to [facility] today. I have informed Ilir with [facility]. Original Note: This patient currently resides at [facility]. I will follow up with Ilir once patient is medically stable for discharge. Discharge date is unknown at this time.
--- NOTE | 2020-07-09 09:43 | HMH.CNCARD ---
History of Present Illness Consult date: 07/09/20 Requesting physician: Shaquille Bowden Consult reason: chest pain Chief complaint: chest pain History of present illness: This is a 69-year-old black gentleman who was admitted to the hospital after having episodes of nausea, vomiting and abdominal pain. The patient states that he has felt bad for the past week. He states that he has felt very nauseated and just did not feel well and then his symptoms worsened yesterday. He states that he was significantly fatigued and felt like he was going to vomit all day and then he started having intermittent episodes where he was vomiting and significantly nauseous with abdominal pain. He states after vomiting so much his chest started hurting in the center of his chest. He states that it was a burning sensation. The chest pain resolved when he stopped vomiting. The patient reports that his nausea and vomiting is much better today. He denies any diarrhea. He does have a history of coronary artery disease, atrial fibrillation and a recent stroke. He states that he has been short of breath since having his stroke. He states that he notices that he is really short of breath with exertion especially if he has to walk upstairs. He states that this does improve with rest. He states that it has not been worsening but has been persistent since his stroke in April. He states that this is mild to moderate in intensity. The patient had a Myoview stress test approximately 2 to 3 weeks ago which showed no evidence of ischemia. The patient has ruled out for an MO. His chest pain has resolved. [facility] History I have reviewed the patient's past medical history: Yes Medical History: Reports:: Atrial Fibrillation, Coronary Artery Disease, Deep Vein Thrombosis, Hyperlipidemia, Hypertension, Kidney Stones, Renal Insufficiency, Urinary Tract Infection Denies:: Cancer, Diabetes Mellitus Type 1, Diabetes Mellitus Type 2, Internal Pacemaker, MRSA, Seizures *Have you ever received a pneumonia vaccine?: No *Have you received a flu vaccine this season?: No Other Medical History: Reports: Anemia, Arthritis. Denies: Blood Transfusion Reaction Laterality Cases: Right: Arthroscopy Knee Other Surgeries: Yes: No Previous Surgery, Appendectomy, Cardiac Catheterization, Cardiac Surgery, Coronary Stent, Skin Cancer Excision, Other (blood clot in leg in the past). No: Pacemaker Amputation: No Fractures: No - *Social History Smoking Status: Former smoker Tobacco Type: cigarettes # Packs/Day (cigarettes): 1 Alcohol Intake: never Substance Use Type: denies use *Occupational Status:: disabled Housing: assisted living facility Household Members: none *Travel in the last 8 weeks: None Family Hx:: Unable to obtain Meds Home Medications Medication Instructions Recorded Confirmed Type OXcarbazepine [Trileptal 300mg 300 mg PO BID 08/20/18 07/08/20 History tablet] Aspirin [Aspirin 81mg chewable 81 mg PO DAILY 04/08/19 07/08/20 History tab] Pantoprazole Sodium [Protonix 40mg 40 mg PO DAILY 04/08/19 07/08/20 History tablet] Simvastatin 20 mg PO HS 04/08/19 07/08/20 History Warfarin Sodium 6 mg PO 1200 05/05/20 07/08/20 History tramadol 50 mg tablet 50 mg PO Q6HP PRN #120 tab 05/09/20 07/08/20 Rx amlodipine 10 mg tablet 10 mg PO BID #60 tab 06/04/20 07/08/20 Rx Tamsulosin HCl [Flomax 0.4mg 0.4 mg PO HS 07/08/20 07/08/20 History capsule] Isosorbide Mononitrate [Isosorbide 30 mg PO DAILY 07/09/20 07/09/20 History Mononitrate ER] Mag Carb/Aluminum Hydrox/Algin 30 ml PO Q4H PRN 07/09/20 07/09/20 History [Acid Gone Antacid Liquid] Metoprolol Succinate [Metoprolol 200 mg PO DAILY 07/09/20 07/09/20 History Succinate 200mg Tablet*] timoloL maleate [Timolol Maleate] 1 drp EYE-BOTH DAILY 07/09/20 07/09/20 History Allergies Allergy/AdvReac Type Severity Reaction Status Date / Time No Known Allergies Allergy Verified 07/01/20 10:08 Exam Vital si
--- NOTE | 2020-07-09 11:37 | PC.NURSE ---
spoke with dr key who stated that patient could have any type of diet today and then would need to be npo after midnight. had previously spoken with carley khan who had said he could be a cardiac diet.
--- NOTE | 2020-07-09 11:47 | HMH.GSCON ---
*Admission Date: 07/09/20 *Reason for consult:: Nausea, reflux, and epigastric pain (request for EGD) *History of present illness: With past medical history significant for atrial fibrillation, coronary artery disease, and recent stroke. He was recently admitted to his primary service with increasing nausea, epigastric pain, and reflux. He has been seen by the cardiology service. Note: His most recent INR was less than 1.5 (yesterday) Please see HPI from initial evaluation forwarded below. From ED Evaluation: Nausea/Vomiting/Diarrhea HPI - General Chief complaint: Nausea/Vomiting/Diarrhea Stated complaint: nausea, abd and chest Time Seen by Provider: 07/08/20 21:10 Mode of Arrival: EMS Source of Information: Patient, EMS, Medical Record Limitations: No Limitations Description of Symptoms (Recalled from ER Triage Doc. by RN): pt states he has had intermittent vomiting today which led to abd pain and then chest pain. denies soa, denies other symptoms. no diarrhea. - History of Present Illness HPI Narrative: [facility] day - pt with then chest pain - has hx of cad and a fib at times - had recent cva in 05/05 - pt with no other c/o at this time MD complaint: nausea, vomiting, abdominal pain Onset (ago): hour(s) Associated Abdominal Pain: Yes Location of pain: diffuse Severity: moderate Associated symptoms: chest pain Review of Systems - Constitutional Denies chills - Eyes Denies discharge - ENT Denies dizziness - *Cardiovascular Reports shortness of breath - *Respiratory Denies cough - *Gastrointestinal Reports abdominal pain, Reports nausea - *Neurologic Denies headache(s), Denies seizure-like activity [facility] History Medical History: Reports:: Atrial Fibrillation, Coronary Artery Disease, Deep Vein Thrombosis, Hyperlipidemia, Hypertension, Kidney Stones, Renal Insufficiency, Urinary Tract Infection Denies:: Cancer, Diabetes Mellitus Type 1, Diabetes Mellitus Type 2, Internal Pacemaker, MRSA, Seizures *Have you ever received a pneumonia vaccine?: No *Have you received a flu vaccine this season?: No Other Medical History: Reports: Anemia, Arthritis. Denies: Blood Transfusion Reaction Laterality Cases: Right: Arthroscopy Knee Other Surgeries: Yes: No Previous Surgery, Appendectomy, Cardiac Catheterization, Cardiac Surgery, Coronary Stent, Skin Cancer Excision, Other (blood clot in leg in the past). No: Pacemaker Amputation: No Fractures: No - *Social History Smoking Status: Former smoker Tobacco Type: cigarettes # Packs/Day (cigarettes): 1 Alcohol Intake: never Substance Use Type: denies use *Occupational Status:: disabled Housing: assisted living facility Household Members: none *Travel in the last 8 weeks: None Family Hx:: Unable to obtain Meds Home Medications Medication Instructions Recorded Confirmed Type OXcarbazepine [Trileptal 300mg 300 mg PO BID 08/20/18 07/08/20 History tablet] Aspirin [Aspirin 81mg chewable 81 mg PO DAILY 04/08/19 07/08/20 History tab] Pantoprazole Sodium [Protonix 40mg 40 mg PO DAILY 04/08/19 07/08/20 History tablet] Simvastatin 20 mg PO HS 04/08/19 07/08/20 History Warfarin Sodium 6 mg PO 1200 05/05/20 07/08/20 History tramadol 50 mg tablet 50 mg PO Q6HP PRN #120 tab 05/09/20 07/08/20 Rx amlodipine 10 mg tablet 10 mg PO BID #60 tab 06/04/20 07/08/20 Rx Tamsulosin HCl [Flomax 0.4mg 0.4 mg PO HS 07/08/20 07/08/20 History capsule] Isosorbide Mononitrate [Isosorbide 30 mg PO DAILY 07/09/20 07/09/20 History Mononitrate ER] Mag Carb/Aluminum Hydrox/Algin 30 ml PO Q4H PRN 07/09/20 07/09/20 History [Acid Gone Antacid Liquid] Metoprolol Succinate [Metoprolol 200 mg PO DAILY 07/09/20 07/09/20 History Succinate 200mg Tablet*] timoloL maleate [Timolol Maleate] 1 drp EYE-BOTH DAILY 07/09/20 07/09/20 History Allergies Allergy/AdvReac Type Severity Reaction Status Date / Time No Known Allergies Allergy
--- NOTE | 2020-07-09 11:55 | PC.NURSE ---
verified with carley khan it was okay to hold warfarin in preparation for egd tomorrow
--- NOTE | 2020-07-09 12:45 | HMH.HP ---
*Admission Date: 07/09/20 *Chief complaint: Chest Pain *History of present illness: 69-year-old male patient presented to the emergency department from with reports of nausea/vomiting, abdominal pain, and then chest pain. He reports he has been feeling bad for the past week, states he has been very nauseated and just did not feel well. Today he was more tired than usual with reports of increased nausea. He did have emesis off and on that developed into abdominal pain, and then left-sided chest pain. He does have a history of CAD, A. fib, and CVA 05/04. He does report having increased shortness of breath since his CVA and had a negative stress test 2 weeks ago with no evidence of ischemia troponins were negative in the emergency department cardiology consulted. He also reports of reflux disease for years and reports it seems to be getting worse lately. General surgery has been consulted for EGD Chemistries revealed BUN of 23 and creatinine of 2.2 07/08/20 CXR: FINDINGS: Lungs: Hazy interstitial opacities in both lungs could reflect interstitial edema versus interstitial pneumonia. Granulomatous change. Pleural spaces: Unremarkable. No pleural effusion. No pneumothorax. Heart/Mediastinum: Cardiomegaly. Bones/joints: Unremarkable. IMPRESSION: Interstitial opacities bilaterally could reflect edema versus pneumonia. Correlate clinically. Electronically signed by Veronica Engle, 07/08/20 Abd/Pelvis CT: COMPARISON: CT ABDOMEN PELVIS WO CON 05/05/2020 12:31 PM FINDINGS: Lungs: In the lung bases there is scattered atelectasis. Liver: Normal. No mass. Gallbladder and bile ducts: Cholecystectomy. Pancreas: Normal. No ductal dilation. Spleen: Normal. No splenomegaly. Adrenal glands: Normal. No mass. Kidneys and ureters: Innumerable bilateral simple renal cysts largest in the left kidney 3.4 cm. There is mild bilateral hydronephrosis and ureteral dilatation likely due to back pressure from the distended urinary bladder. Nonobstructing bilateral renal stones. Stomach and bowel: Unremarkable. No obstruction. No mucosal thickening. Appendix: No evidence of appendicitis. Intraperitoneal space: Mild haziness in the mesentery in the right mid abdomen which could be due to nonspecific panniculitis in this region. Vasculature: Unremarkable. No abdominal aortic aneurysm. Lymph nodes: Unremarkable. No enlarged lymph nodes. Urinary bladder: Unremarkable as visualized. Reproductive: Enlarged prostate. Bones/joints: Unremarkable. No acute fracture. Soft tissues: Unremarkable. IMPRESSION: 1. Mild haziness in the mesentery in the right mid abdomen which could be due to nonspecific panniculitis. 2. Innumerable bilateral renal cysts and mild bilateral hydronephrosis and ureteral dilatation likely due to back pressure from distended urinary bladder. No ureteral stones are seen. 3. Enlarged prostate. 4. No colitis or small bowel obstruction. COMMENTS: Consistent with the [employer]'s Incidental Findings Committee white paper (J Am Rupa Radiol 2018): Any incidental renal lesion less than 1 cm or classified as too small to characterize, or any incidental cystic renal lesion characterized as simple-appearing, is likely benign. No follow-up imaging is recommended for these lesions per consensus recommendations based on imaging criteria. Electronically signed by Veronica Engle [facility] History I have reviewed the patient's past medical history: Yes Medical History: Reports:: Atrial Fibrillation, Coronary Artery Disease, Deep Vein Thrombosis, Hyperlipidemia, Hypertension, Kidney Stones, Renal Insufficiency, Urinary Tract Infection Denies:: Cancer, Diabetes Mellitus Type 1, Diabetes Mellitus Type 2, Internal Pacemaker, MRSA, Seizures *Have you ever received a pneumonia vaccine?: No *Have you received a flu vaccine this season?:
--- NOTE | 2020-07-09 14:16 | DIET.NUTRFU ---
Pt with c/o abdominal pain, no c/o N/V. He feels he tolerated breakfast well and was able to eat 100% of lunch. Pt is visually impaired, please assist with tray setup. Adaptive equipment/modifications for ease of eating on diet order.
--- NOTE | 2020-07-09 16:40 | PC.NURSE ---
patient has had a good shift. no complaints what so ever. has been using urinal as needed. rings out as needed. mood has been good. appetite good. plan for scope in morning. vitals stable.
[2020-07-10] VITALS (16 sets, daily range): BP systolic 100–168; BP diastolic 7–107; PULSE 60–83; RESP 16–73; TEMP 36.4–37.4; O2SAT 94–99; BMI 27.6
--- NOTE | 2020-07-10 04:57 | PC.NURSE ---
shift summary pts lung sounds are clear with sats maintained 90% or above on room air, with a rate ranging from 16-18. pt is alert and oriented X4. pt denies pain, nausea, or vomiting.
--- NOTE | 2020-07-10 06:37 | P.PN_ITS ---
Subjective Patient reports: no new complaints, feels better Progress Note: A&P (1) Shortness of breath Status: Acute (2) Nausea and vomiting Status: Acute (3) Abdominal pain Status: Acute (4) Renal insufficiency Status: Acute (5) CVA (cerebral vascular accident) Status: Acute (6) A-fib Status: Acute (7) HHD (hypertensive heart disease) Status: Chronic (8) Diastolic dysfunction Status: Chronic (9) Pulmonary HTN Status: Acute (10) HLD (hyperlipidemia) Status: Chronic (11) CAD (coronary artery disease) Status: Chronic (12) Epigastric pain Status: Acute Assessment and plan: Somewhat improved versus yesterday. (13) Gastroesophageal reflux Status: Acute Assessment and plan: Somewhat improved versus yesterday. EGD this morning planned. Exam Vital signs and Labs for Last 24 Hours: Temp Pulse Resp BP Pulse Ox 99.3 F 68 19 138/69 96 07/10/20 04:00 07/10/20 04:00 07/10/20 04:00 07/10/20 04:00 07/10/20 04:00 Laboratory Results - last 24 hr 07/09/20 06:44: WBC 5.0, RBC 3.73 L, Hgb 10.5 L, Hct 33.1 L, MCV 88.7, MCH 28.2, MCHC 31.7 L, RDW 15.7, Plt Count 223, MPV 7.9, Neut % (Auto) 76.8, Lymph % (Auto) 15.3, [place] % (Auto) 6.7, Eos % (Auto) 0.9, Baso % (Auto) 0.3, Neut # (Auto) 3.8, Lymph # (Auto) 0.8, [place] # (Auto) 0.3, Eos # (Auto) 0.0, Baso # (Auto) 0.0 07/09/20 06:44: Sodium 143, Potassium 3.6, Chloride 110 H, Carbon Dioxide 23, Anion Gap 13.6, BUN 22 H, Creatinine 1.80 H, Estimated Creat Clear 57, Estimated GFR 37 L, Est GFR ( Amer) 45 L D, Glucose 85 D, Calcium 8.4, Magnesium 1.9 I & O for Last 24 hours: Intake & Output 07/07/20 07/08/20 07/09/20 07/10/20 11:59 11:59 11:59 11:59 Intake Total 275 / 275 960 / 960 Output Total 1000 / 1000 3225 / 3225 Balance -725 / -725 -2265 / -2265 Weight 237 lb 9 oz 238 lb 1.588 oz - Constitutional no acute distress - *Routine Respiratory Exam Absent: respiratory distress - *Routine Cardiovascular Exam Present: RRR - *Routine Abdominal Exam Present: soft
--- NOTE | 2020-07-10 06:56 | PC.NURSE ---
PT OFF FLOOR VIA BED W/OR STAFF AT 0656
--- NOTE | 2020-07-10 07:11 | P.PN_ITS ---
[facility] Anesthesia Checklist - Patient Identification Patient Identification: Arm Band - Structural Data Admitted From: Home Planned Operative Procedure/s: EGD Consent for Planned Operative Procedure(s) Verified: Yes - NPO Status Verified Time NPO: 00:00 - Additional verifications Anesthesia Reactions: No Hx Blood Transfusions: No Blood Transfusion Reaction: No - Neurological Assessment Level of Consciousness: Awake, Alert Hx Seizures: No Numbness or tingling in extremities: No - Anesthesia Plan Anesthesia Risk discussed: Yes Anesthesia Plan: Verified ASA Class: III Anesthesia Type: MAC [facility] History I have reviewed the patient's past medical history: Yes Medical History: Reports:: Atrial Fibrillation, Congestive Heart Failure, Coronary Artery Disease, Cerebrovascular Accident, Deep Vein Thrombosis, Gastroesophageal Reflux Disease(GERD), Hyperlipidemia, Hypertension, Lung Disease, Kidney Stones, Renal Insufficiency, Urinary Tract Infection Denies:: Cancer, Diabetes Mellitus Type 1, Diabetes Mellitus Type 2, Internal Pacemaker, MRSA, Seizures *Have you ever received a pneumonia vaccine?: No *Have you received a flu vaccine this season?: No Other Medical History: Reports: Anemia, Arthritis. Denies: Blood Transfusion Reaction Anesthesia experience/problems:: None Laterality Cases: Right: Arthroscopy Knee Other Surgeries: Yes: Appendectomy, Cardiac Catheterization, Cardiac Surgery, Coronary Stent, Skin Cancer Excision, Other (blood clot in leg in the past). No: Pacemaker Amputation: No Fractures: No - *Social History Smoking Status: Former smoker Tobacco Type: cigarettes # Packs/Day (cigarettes): 1 Alcohol Intake: never Substance Use Type: denies use *Occupational Status:: disabled Housing: assisted living facility Household Members: none *Travel in the last 8 weeks: None Family Hx:: Unable to obtain
--- NOTE | 2020-07-10 08:03 | P.PCN_ITS ---
- Procedure: Date: 07/10/20 Patient Date of :: 1950 Procedure Performed:: Esophagogastroduodenoscopy with biopsy Indications:: Epigastric pain Gastroesophageal reflux Performing Provider:: Scar Mckeon MD Referring Provider:: . Sedation:: Monitored anesthesia care Procedure:: After informed consent was obtained the patient was taken to the endoscopy suite. Sedation ensued after the patient was transferred to the left lateral decubitus position. Pulse, blood pressure, and oxygen saturation were monitored throughout the procedure. The endoscope was advanced beyond the duodenal bulb. Retroflexion within the gastric lumen was accomplished. The gastroscope was carefully removed and the patient was transferred to recovery in stable con dition. Please see findings and specimens below for detail. Findings:: Somewhat tortuous esophagus Moderate toleration of anesthesia leading to difficulty fully evaluating esophagus safely Minimal antral inflammation High fundic arc Sliding hiatal hernia Specimens:: Antral biopsy Recommendations:: Continue proton pump inhibition Consider UGI/SBFT in near future Follow-up antral biopsy pathology Complications:: No immediate Estimated blood obtained (mL): 1
--- NOTE | 2020-07-10 09:32 | HMH.PNCARD ---
Subjective Date: 07/10/20 Time: 09:15 Principal diagnosis: chest pain, n/v Interval history: This is a 69-year-old black gentleman who was admitted to the hospital after having nausea, vomiting and abdominal pain. He states when he was having all of the nausea and vomiting he did have chest pain but once his vomiting resolved his chest pain stopped as well. He ruled out for an NV and has not had any chest pain since his last episode of vomiting. He also had a normal Myoview stress test approximately 2 to 3 weeks ago. The patient had been complaining of shortness of breath that has been going on since he had his stroke in April. His BNP was slightly elevated. The patient was given a dose of IV Lasix yesterday. He states his shortness of breath has improved. He states that he is feeling much better. His nausea and vomiting has resolved. His chest pain has resolved. He states his shortness of breath is much better. He denies any edema. He denies any fever, chills, nausea, vomiting, diarrhea, PND or orthopnea. The patient did undergo a scope this morning with Dr. Whyte which showed a somewhat tortuous esophagus, minimal antral inflammation, high fundic arc and a sliding hiatal hernia. Recommendations for a proton pump inhibitor and a UGI/SBFT in the near future. Exam Vital signs and Labs for Last 24 Hours: Temp Pulse Resp BP Pulse Ox 99.3 F 68 19 138/69 96 07/10/20 04:00 07/10/20 04:00 07/10/20 04:00 07/10/20 04:00 07/10/20 04:00 I & O for Last 24 hours: Intake & Output 07/07/20 07/08/20 07/09/20 07/10/20 23:59 23:59 23:59 23:59 Intake Total 1235 / 1235 Output Total 3125 / 3425 1500 / 1500 Balance -1890 / -2190 -1500 / -1500 Weight 230 lb 1.011 oz 238 lb 1.588 oz 227 lb 2 oz - Constitutional no acute distress, average body habitus - *Routine HEENT Exam Head: Present: normocephalic, atraumatic Eye: Present: EOMI, PERRL ENT: Present: mucous membranes moist - *Routine Neck Exam Present: supple, full ROM, normal carotid upstroke. Absent: JVD, carotid bruit, lymphadenopathy - *Routine Respiratory Exam Present: CTA bilaterally - *Routine Cardiovascular Exam Present: RRR, Normal S1, Normal S2. Absent: murmur - *Routine Abdominal Exam Present: soft, normoactive bowel sounds. Absent: tenderness, distended - *Routine Extremities Exam Present: full ROM, pulses intact, normal capillary refill. Absent: cyanosis, clubbing, edema - *Routine Skin Exam Present: intact, warm. Absent: erythema, rash - *Routine Neurological Exam Present: alert, oriented X3, CN II-XII intact. Absent: sensory deficit, motor deficit Progress Note: A&P (1) Shortness of breath Status: Acute (2) Nausea and vomiting Status: Acute (3) Abdominal pain Status: Acute (4) Renal insufficiency Status: Acute (5) CVA (cerebral vascular accident) Status: Acute (6) A-fib Status: Acute (7) HHD (hypertensive heart disease) Status: Chronic (8) Diastolic dysfunction Status: Chronic (9) Pulmonary HTN Status: Acute (10) HLD (hyperlipidemia) Status: Chronic (11) CAD (coronary artery disease) Status: Chronic (12) Epigastric pain Status: Acute (13) Gastroesophageal reflux Status: Acute Assessment and Plan for All Diagnoses:: plan: 1. The patient was admitted to the hospital from [place] due to nausea vomiting abdominal pain. CT of his abdomen showed no acute abnormality. He did have a general surgery referral and underwent EGD this morning. He did have a sliding hiatal hernia, high fundic arc and a tortuous esophagus with minimal antral inflammation. A proton pump inhibitor was recommended as well as UGI/SBFT in the near future. Will defer. 2. The patient had some chest pain with his vomiting. He states that his chest pain resolved once he stopped vomiting. He ruled out for an NV and had no recurrence of chest pain. He did have a Lexiscan Myoview stress
[2020-07-10 09:48] LABS: Basophils % 0.3 % (0.1-2.0); Eosinophils # 0.2 K/mm3 (0.0-0.4); Eosinophils % 3.4 % (0.1-12.0); Hematocrit 35.7 % (42.0-52.0); Hemoglobin 10.7 g/dL (14.1-18.0); Lymphocytes % 20.7 % (10-50); Mean Corpuscular Hemoglobin 27.4 pg (27.0-31.2); Mean Corpuscular Volume 91.2 fl (80-94); Mean Platelet Volume 8.2 fl (7.4-10.4); Monocytes # 0.4 K/mm3 (0.1-1.0); Monocytes % 8.7 % (1.7-9.3); Neutrophils # 3.1 K/mm3 (1.8-7.8); Neutrophils % 66.8 % (37.0-80.0); Platelet Count 212 K/mm3 (142-424); Red Blood Count 3.92 M/mm3 (4.60-6.20); Red Cell Distribution Width 15.5 % (11.5-17.5); White Blood Count 4.7 K/mm3 (4.8-10.8)
[2020-07-10 10:05] LABS: Chloride 106 mmol/L (98-107)
[2020-07-10 10:06] LABS: Potassium 3.7 mmoL/L (3.5-5.1); Sodium 140 mmol/L (136-145)
[2020-07-10 10:09] LABS: Anion Gap 14.7 mEq/L (5-15); Blood Urea Nitrogen 19 mg/dl (9-20); Calcium 8.6 mg/dl (8.4-10.2); Carbon Dioxide 23 mmol/L (22.0-30.0); Creatinine Clearance Estimated 58 mL/min (50-200); Estimated Glomerular Filt Rate 40 ml/min (>60); GFR (African American) 48 ML/MIN (>60); Glucose 132 mg/dl (74-100)
--- NOTE | 2020-07-10 10:14 | HMH.OTEV ---
OT Inpatient Evaluation Rehab OT IP Evaluation Start: 07/10/20 09:24 Freq: ONCE Status: Complete Protocol: Document 07/10/20 10:06 HALI (Rec: 07/10/20 10:14 [facility] [id number]) Rehab OT IP Assessment Subjective History Pt oriented x 2 on arrival. Pt agreeable to engage in therapy evaluation. Pt was adm via ED on 07/08/20 due to chest pain, vomiting, and abdominal pain. Pt has a past medical history of A-fib, CAD , DVT, Hyperlipidemia, HTN, Kidney stones, UTI, and CVA. Pt reports prior to being in hospital he lived at [facility]. Pt claims he was independent with all ADLs. He did require staff to assist with medications. Subjective I can do that.' Objective Patient Orientation Person,Birthday Upper Extremity Gross ROM WFL Bed Mobility bed mobility-scooting,bed mobility - supine/sit,bed mobility - rolling Assist Level Supervision/Stand by Transfer Training Sit/Stand Transfer Assist Level Supervision/Stand by Chair Transfer Ability Supervision/Stand by Chair Transfer Technique Sit to/from Ambulatory Chair Transfer Assistive Devices None Feeding Ability Independent Lower Body Dressing Ability Standby Assistance Rehab OT IP prob,goals,plan Problems Date of Evaluation: 07/10/20 Rehab Potential Rehab Potential Innapropriate for Skilled Therapy Discharge Plan OT Discharge Plan At this time pt appears to be at baseline functionally with ADL's. Pt is safe to return to personal long term once medically stable. Eval Complexity Eval Charge Codes 28861 - Moderate Complexity G Codes G -code Required No PHYSICIAN CERTIFICATION: I certify the specified therapy services for Edi Toussaint are required, authorized, and reviewed every 30 days.
--- NOTE | 2020-07-10 12:30 | HMH.PTEV ---
Physical Therapy Evaluation Rehab PT IP Evaluation Start: 07/10/20 09:24 Freq: ONCE Status: Active Protocol: Document 07/10/20 11:45 PHOSHERLYN (Rec: 07/10/20 12:29 PHORNE [id number]) Subjective/History History History 69 yoaam adm to [facility] with N/V and SOA. He is legally blind, lives at personal fpc and is independent with all mobility using cane prior to adm. Subjective Subjective Pt with no c/o this am. Rehab PT IP Eval Objective Appearance Patient Behavior Appropriate Patient Orientation Person,Place Difficulty following instructions none Speech Pattern Clear Ambulation Patient Able to Ambulate Yes Ambulation Observation IP General Gait Pattern Observation Wide Based Gait Ambulation Distance (feet) 30 Ambulation Assistive Device Straight Cane Ambulation Ability Supervision/Stand by Balance Ability to Arise Able, uses arms to help Sitting Balance Steady, safe Standing Balance Steady, wide stance Dynamic Sitting Balance Ability Good Dynamic Standing Balance Ability Good Transfers Bed Transfer Ability Supervision/Stand by Chair Transfer Ability Supervision/Stand by Sit to Stand Bed Transfer Ability Supervision/Stand by Sit to Stand Chair Transfer Ability Supervision/Stand by ROM All Extremities PT ROM Status WFL MMT All Extremities PT MMT WFL Rehab PT IP prob,goals,plan Problems Date of Evaluation: 07/10/20 Discharge Plan PT Discharge Plan Pt is at baseline for all mobility at this time and is appropriate to return to personal fpc once medically stable. G -code Required No Eval Complexity Eval Charge Codes 41055 - Moderate Complexity PHYSICIAN CERTIFICATION: I certify the specified therapy services for Edi Toussaint are required, authorized, and reviewed every 30 days.
--- NOTE | 2020-07-10 13:10 | HMH.ACPN2 ---
Internal Medicine - PN: Subj *Date: 07/10/20 *Time: 08:10 Interval history: pt states these are better. no cp at this time Exam Vital signs and Labs for Last 24 Hours: Temp Pulse Resp BP Pulse Ox 98.4 F 71 18 124/7 L 98 07/10/20 11:03 07/10/20 12:45 07/10/20 12:45 07/10/20 12:45 07/10/20 12:45 Laboratory Results - last 24 hr 07/10/20 09:36: Sodium 140, Potassium 3.7, Chloride 106, Carbon Dioxide 23, Anion Gap 14.7, BUN 19, Creatinine 1.70 H, Estimated Creat Clear 58, Estimated GFR 40 L, Est GFR ( Amer) 48 L, Glucose 132 H, Calcium 8.6 07/10/20 09:36: WBC 4.7 L, RBC 3.92 L, Hgb 10.7 L, Hct 35.7 L, MCV 91.2, MCH 27.4, MCHC 30.0 L, RDW 15.5, Plt Count 212, MPV 8.2, Neut % (Auto) 66.8, Lymph % (Auto) 20.7, [place] % (Auto) 8.7, Eos % (Auto) 3.4, Baso % (Auto) 0.3, Neut # (Auto) 3.1, Lymph # (Auto) 1.0, [place] # (Auto) 0.4, Eos # (Auto) 0.2, Baso # (Auto) 0.0 I & O for Last 24 hours: Intake & Output 07/08/20 07/09/20 07/10/20 07/11/20 11:59 11:59 11:59 11:59 Intake Total 275 / 275 2601 / 2601 Output Total 1000 / 1000 3625 / 3625 Balance -725 / -725 -1024 / -1024 Weight 237 lb 9 oz 227 lb 2 oz - Constitutional no acute distress - *Routine HEENT Exam Head: Present: normocephalic ENT: Present: mucous membranes moist Comments: blind - *Routine Neck Exam Present: supple. Absent: lymphadenopathy - *Routine Respiratory Exam Present: CTA bilaterally - *Routine Cardiovascular Exam Present: RRR - *Routine Abdominal Exam Present: soft, normoactive bowel sounds. Absent: tenderness - *Routine Extremities Exam Absent: cyanosis, clubbing, edema - *Routine Skin Exam Present: warm. Absent: rash - *Routine Neurological Exam Present: alert - Routine Psychiatric Exam Present: normal affect Assessment and Plan (1) Shortness of breath Status: Acute Category: Medical Code(s): R06.02 - Shortness of breath (2) Nausea and vomiting Status: Acute Category: Medical Code(s): R11.2 - Nausea with vomiting, unspecified (3) Abdominal pain Status: Acute Category: Medical Code(s): R10.9 - Unspecified abdominal pain (4) Renal insufficiency Status: Acute Category: Medical Code(s): N28.9 - Disorder of kidney and ureter, unspecified (5) CVA (cerebral vascular accident) Status: Acute Qualifiers: CVA mechanism: unspecified Qualified Code(s): I63.9 - Cerebral infarction, unspecified Category: Medical Code(s): I63.9 - Cerebral infarction, unspecified (6) A-fib Status: Acute Qualifiers: Atrial fibrillation type: unspecified chronic Qualified Code(s): I48.20 - Chronic atrial fibrillation, unspecified Category: Medical Code(s): I48.91 - Unspecified atrial fibrillation (7) HHD (hypertensive heart disease) Status: Chronic Qualifiers: Heart failure presence: without heart failure Qualified Code(s): I11.9 - Hypertensive heart disease without heart failure Category: Medical Code(s): I11.9 - Hypertensive heart disease without heart failure (8) Diastolic dysfunction Status: Chronic Category: Medical Code(s): I51.89 - Other ill-defined heart diseases (9) Pulmonary HTN Status: Acute Category: Medical Code(s): I27.20 - Pulmonary hypertension, unspecified (10) HLD (hyperlipidemia) Status: Chronic Qualifiers: Hyperlipidemia type: mixed hyperlipidemia Qualified Code(s): E78.2 - Mixed hyperlipidemia Category: Medical Code(s): E78.5 - Hyperlipidemia, unspecified (11) CAD (coronary artery disease) Status: Chronic Qualifiers: Coronary Disease-Associated Artery/Lesion type: unspecified vessel or lesion type [place] vs. transplanted heart: [place] heart Associated angina: with unspecified form of angina Qualified Code(s): I25.119 - Atherosclerotic heart disease of [place] coronary artery with unspecified angina pectoris Category: Medical Code(s): I25.10 - Atherosclerotic heart diseas
--- NOTE | 2020-07-10 13:14 | HMH.DCSUM ---
General - General Admission date:: 07/09/20 Discharge date: 07/10/20 HPI HPI: 69-year-old male patient presented to the emergency department from with reports of nausea/vomiting, abdominal pain, and then chest pain. He reports he has been feeling bad for the past week, states he has been very nauseated and just did not feel well. Today he was more tired than usual with reports of increased nausea. He did have emesis off and on that developed into abdominal pain, and then left-sided chest pain. He does have a history of CAD, A. fib, and CVA 05/04. He does report having increased shortness of breath since his CVA and had a negative stress test 2 weeks ago with no evidence of ischemia troponins were negative in the emergency department cardiology consulted. He also reports of reflux disease for years and reports it seems to be getting worse lately. General surgery has been consulted for EGD Chemistries revealed BUN of 23 and creatinine of 2.2 07/08/20 CXR: FINDINGS: Lungs: Hazy interstitial opacities in both lungs could reflect interstitial edema versus interstitial pneumonia. Granulomatous change. Pleural spaces: Unremarkable. No pleural effusion. No pneumothorax. Heart/Mediastinum: Cardiomegaly. Bones/joints: Unremarkable. IMPRESSION: Interstitial opacities bilaterally could reflect edema versus pneumonia. Correlate clinically. Electronically signed by Veronica Engle, 07/08/20 Abd/Pelvis CT: COMPARISON: CT ABDOMEN PELVIS WO CON 05/05/2020 12:31 PM FINDINGS: Lungs: In the lung bases there is scattered atelectasis. Liver: Normal. No mass. Gallbladder and bile ducts: Cholecystectomy. Pancreas: Normal. No ductal dilation. Spleen: Normal. No splenomegaly. Adrenal glands: Normal. No mass. Kidneys and ureters: Innumerable bilateral simple renal cysts largest in the left kidney 3.4 cm. There is mild bilateral hydronephrosis and ureteral dilatation likely due to back pressure from the distended urinary bladder. Nonobstructing bilateral renal stones. Stomach and bowel: Unremarkable. No obstruction. No mucosal thickening. Appendix: No evidence of appendicitis. Intraperitoneal space: Mild haziness in the mesentery in the right mid abdomen which could be due to nonspecific panniculitis in this region. Vasculature: Unremarkable. No abdominal aortic aneurysm. Lymph nodes: Unremarkable. No enlarged lymph nodes. Urinary bladder: Unremarkable as visualized. Reproductive: Enlarged prostate. Bones/joints: Unremarkable. No acute fracture. Soft tissues: Unremarkable. IMPRESSION: 1. Mild haziness in the mesentery in the right mid abdomen which could be due to nonspecific panniculitis. 2. Innumerable bilateral renal cysts and mild bilateral hydronephrosis and ureteral dilatation likely due to back pressure from distended urinary bladder. No ureteral stones are seen. 3. Enlarged prostate. 4. No colitis or small bowel obstruction. COMMENTS: Consistent with the [employer]'s Incidental Findings Committee white paper (J Am Rupa Radiol 2018): Any incidental renal lesion less than 1 cm or classified as too small to characterize, or any incidental cystic renal lesion characterized as simple-appearing, is likely benign. No follow-up imaging is recommended for these lesions per consensus recommendations based on imaging criteria. Electronically signed by [facility] Hospital Course: Laboratory Tests 07/08/20 07/08/20 07/08/20 21:05 21:05 21:05 WBC 6.0 RBC 3.83 L Hgb 10.7 L Hct 34.4 L MCV 89.9 MCH 28.0 MCHC 31.2 L RDW 15.4 Plt Count 230 MPV 7.5 Neut % (Auto) 76.0 Lymph % (Auto) 13.8 [place] % (Auto) 7.1 Eos % (Auto) 2.8 Baso % (Auto) 0.4 Neut # (Auto) 4.5 Lymph # (Auto) 0.8 [place] # (Auto) 0.4 Eos # (Auto) 0.2
--- NOTE | 2020-07-10 16:27 | HMH.CONS ---
*Admission Date: 07/09/20 *Reason for consult:: Bilateral renal cysts/bilateral renal stones/BPH with obstruction *History of present illness: Patient is a 69-year-old white male with a long history of numerous bilateral simple renal cyst as well as bilateral renal stones. He was admitted to the hospital 2 days ago with nausea vomiting and diarrhea. CT scan showed numerous bilateral renal cyst and bilateral renal stones. His prostate is also enlarged and is bladder was up to his umbilicus. His white count was normal. His creatinine is 2.2 which is baseline for him. Patient is on tamsulosin for his BPH. He underwent EGD yesterday which showed tortuous esophagus, sliding hiatal hernia and some mild antral inflammation. Patient is eating at bedside today and denies any discomfort. I saw the patient earlier this month for his renal cyst and stones. He is asymptomatic from a back pain standpoint and we are watching the stones and he was reassured the cyst are benign. Looking back in his scans they have been there since at least 2017. Patient was also evaluated in the office for BPH and he was emptying out fairly well with residual of only [address] scan shows the bladder was full but he may not have voided prior to the scan. A similar appearance was noted on previous CT scan. Patient denies any significant voiding issues. [facility] History Medical History: Reports:: Atrial Fibrillation, Congestive Heart Failure, Coronary Artery Disease, Cerebrovascular Accident, Deep Vein Thrombosis, Gastroesophageal Reflux Disease(GERD), Hyperlipidemia, Hypertension, Lung Disease, Kidney Stones, Renal Insufficiency, Urinary Tract Infection Denies:: Cancer, Diabetes Mellitus Type 1, Diabetes Mellitus Type 2, Internal Pacemaker, MRSA, Seizures *Have you ever received a pneumonia vaccine?: No *Have you received a flu vaccine this season?: No Other Medical History: Reports: Anemia, Arthritis. Denies: Blood Transfusion Reaction Anesthesia experience/problems:: None Laterality Cases: Right: Arthroscopy Knee Other Surgeries: Yes: No Previous Surgery, Appendectomy, Cardiac Catheterization, Cardiac Surgery, Coronary Stent, Skin Cancer Excision, Other (blood clot in leg in the past). No: Pacemaker Amputation: No Fractures: No - *Social History Smoking Status: Former smoker Tobacco Type: cigarettes # Packs/Day (cigarettes): 1 Alcohol Intake: never Substance Use Type: denies use *Occupational Status:: disabled Housing: assisted living facility Household Members: none *Travel in the last 8 weeks: None Family Hx:: Unable to obtain Review of Systems - *Neurologic Denies dizziness, Denies headache(s), Denies seizure-like activity Meds Home Medications Medication Instructions Recorded Confirmed Type OXcarbazepine [Trileptal 300mg 300 mg PO BID 08/20/18 07/08/20 History tablet] Aspirin [Aspirin 81mg chewable 81 mg PO DAILY 04/08/19 07/08/20 History tab] Pantoprazole Sodium [Protonix 40mg 40 mg PO DAILY 04/08/19 07/08/20 History tablet] Simvastatin 20 mg PO HS 04/08/19 07/08/20 History Warfarin Sodium 6 mg PO 1200 05/05/20 07/08/20 History tramadol 50 mg tablet 50 mg PO Q6HP PRN #120 tab 05/09/20 07/08/20 Rx amlodipine 10 mg tablet 10 mg PO BID #60 tab 06/04/20 07/08/20 Rx Tamsulosin HCl [Flomax 0.4mg 0.4 mg PO HS 07/08/20 07/08/20 History capsule] Isosorbide Mononitrate [Isosorbide 30 mg PO DAILY 07/09/20 07/09/20 History Mononitrate ER] Mag Carb/Aluminum Hydrox/Algin 30 ml PO Q4H PRN 07/09/20 07/09/20 History [Acid Gone Antacid Liquid] Metoprolol Succinate [Metoprolol 200 mg PO DAILY 07/09/20 07/09/20 History Succinate 200mg Tablet*] timoloL maleate [Timolol Maleate] 1 drp EYE-BOTH DAILY 07/09/20 07/09/20 History Azithromycin [Zithromax 250mg 250 mg PO DIRECTED #6 tab 07/10/20 Rx tab] Allergies Allergy/AdvReac Type Severity Reaction Status Date / Time No Known Allergies Allergy Verified 07/01/20 10:
== END 2020-07-10 17:44 | disposition home or self-care (01) ==
LOC: ER 21:24 → 2ND 23:58
PROVIDERS: Nurse Practitioner Family; Surgery; Admitting Provider Emergency Medicine; Emergency Provider Emergency Medicine; PCP Emergency Medicine; Visit Provider Emergency Medicine
PROC: 0DJ08ZZ Inspection of Upper Intestinal Tract, Via Natural or Artificial Opening Endoscopic (ICD-10-PCS; CPT 43235; principal; 2020-07-10 07:30)
DX: R07.9 Chest pain, unspecified (principal); I48.0 Paroxysmal atrial fibrillation; I11.9 Hypertensive heart disease without heart failure; E78.5 Hyperlipidemia, unspecified; I25.10 Atherosclerotic heart disease of native coronary artery without angina pectoris; Z95.5 Presence of coronary angioplasty implant and graft; Z87.891 Personal history of nicotine dependence; Z79.01 Long term (current) use of anticoagulants; I27.20 Pulmonary hypertension, unspecified; K21.9 Gastro-esophageal reflux disease without esophagitis; N20.0 Calculus of kidney; N40.1 Benign prostatic hyperplasia with lower urinary tract symptoms; N28.1 Cyst of kidney, acquired; R06.02 Shortness of breath
CPT/HCPCS: 43239; 36415; 71045; 74176; 80048; 80076; 83690; 83735; 83880; 84443; 84484; 85025; 85610; 88305; 93005; 97162; 97166; 99284; G0378; U0003

== ENCOUNTER → 2020-07-17 09:41 | Outpatient (CLI) | payer MEDICARE, SELFPAY ==
--- NOTE | 2020-07-17 09:41 | FL_ITS ---
PROCEDURE: FL UPPER GI SERIES W/O AIR CLINICAL INDICATION: epigastric pain COMPARISON: No exams were available for comparison FINDINGS: Fluoroscopy time: 1 minutes and 18 seconds Esophagus stomach and duodenum have an unremarkable appearance. No mass or ulcer apparent. No evidence of hiatal hernia. IMPRESSION: Unremarkable upper GI Dictated by: Edwar Mckay MD 07/18/2020 08:34 Edwar Mckay MD in [place] 07/18/2020 08:34
== END ==
LOC: RAD 09:41
PROVIDERS: PCP Emergency Medicine; Visit Provider Nurse Practitioner Family
DX: R10.13 Epigastric pain (principal)
CPT/HCPCS: 74240

== ENCOUNTER → 2020-08-06 10:28 | Outpatient (CLI) | payer MEDICARE, SELFPAY ==
[2020-08-06 10:49] LABS: PHA INR Fingerstick 2.5 (0.9-1.1)
== END ==
LOC: ACC 10:29
PROVIDERS: PCP Emergency Medicine; Visit Provider Emergency Medicine
DX: Z79.01 Long term (current) use of anticoagulants (principal)
CPT/HCPCS: 85610; 99211; G0463

== ENCOUNTER 2020-08-17 13:56 | Observation (INO) | payer MEDICARE, SELFPAY ==
[2020-08-17] VITALS (12 sets, daily range): BP systolic 98–144; BP diastolic 51–89; PULSE 52–64; RESP 16–18; TEMP 36.5–36.8; O2SAT 94–98; BMI 31.1; BMI 31.2
--- NOTE | 2020-08-17 14:00 | ECG_ITS ---
APPROVED REPORT Exam: Resting ECG HR:56 bpm ECG Measurements Heart Rate 56 AXES ND 184 P 32 QRSd 106 QRS -36 QT 460 T 4 QTc 443 Conclusion Sinus bradycardia Left axis deviation Abnormal ECG Electronically signed by : Syed Modi, 08/19/2020 22:05:34
--- NOTE | 2020-08-17 14:09 | HMH.EDGENADL ---
ED Disposition Clinical Impression: Chest pain, precordial, Near syncope, Occult blood positive stool Anemia Qualifiers: Anemia type: unspecified type Qualified Code(s): D64.9 - Anemia, unspecified Disposition: Admitted as Observation Condition on Discharge: Good Referrals: Provider,Referral, [Primary Care Provider] - - Critical Care Critical Care Time: No Attestation: On 08/17/20, the high probability of a clinically significant, sudden or life threatening deterioration of the following system(s) required my full and direct attention, intervention and personal management. The time I documented below is in addition to time spent performing reported procedures but includes the following listed in this critical care notation. Medical Decision Making - [place] Inquiry Pt receiving controlled substance: No Vital Signs: 08/17/20 13:57 08/17/20 14:01 08/17/20 14:30 Temperature 98.2 F Temperature Source Oral Pulse Rate 56 L 54 L Pulse Rate [Orthostatic Lying] Pulse Rate [Orthostatic Standing] Pulse Rate [Radial] 52 L Respiratory Rate 16 16 18 Blood Pressure 98/74 L 122/79 Blood Pressure [Orthostatic Lying] Blood Pressure [Orthostatic Standing] Blood Pressure [Right Arm] 107/64 L Blood Pressure Mean 77 89 Blood Pressure Mean [Right Arm] 78 Blood Pressure Position [Right Arm] Sitting 02 Sat by Pulse Oximetry 98 97 98 Oxygen Delivery Method Room Air 08/17/20 15:38 Temperature Temperature Source Pulse Rate Pulse Rate [Orthostatic Lying] 56 L Pulse Rate [Orthostatic Standing] 59 L Pulse Rate [Radial] Respiratory Rate Blood Pressure Blood Pressure [Orthostatic Lying] 111/89 Blood Pressure [Orthostatic Standing] 117/51 L Blood Pressure [Right Arm] Blood Pressure Mean Blood Pressure Mean [Right Arm] Blood Pressure Position [Right Arm] 02 Sat by Pulse Oximetry Oxygen Delivery Method - Lab Data Lab Results 08/17/20 14:20: WBC 6.9, RBC 3.48 L, Hgb 9.7 L, Hct 30.1 L, MCV 86.4, MCH 27.9, MCHC 32.3, RDW 15.4, Plt Count 237, MPV 7.8, Neut % (Auto) 70.0, Lymph % (Auto) 18.1, [place] % (Auto) 7.8, Eos % (Auto) 3.6, Baso % (Auto) 0.6, Neut # (Auto) 4.8, Lymph # (Auto) 1.3, [place] # (Auto) 0.5, Eos # (Auto) 0.3, Baso # (Auto) 0.0 08/17/20 14:20: Sodium 142, Potassium 4.3, Chloride 111 H, Carbon Dioxide 25, Anion Gap 10.3, BUN 33 H, Creatinine 2.60 H, Estimated Creat Clear 39, Estimated GFR 24 L, Est GFR ( Amer) 30 L, Glucose 100, Calcium 8.9, Troponin I < 0.01 08/17/20 15:00: PT 18.9 H, INR 1.66 H, APTT 31.9 H 08/17/20 15:10: Stool Occult Blood Positive A Result diagrams: 08/17/20 14:20 08/17/20 14:20 Orders (Tests/Meds): ORDERS Category Date Time Status Full Resp Panel w/COVID ([facility]) Routine Lab 08/17/20 15:40 Ordered Troponin I Q3H Lab 08/17/20 17:45 Ordered Troponin I Q3H Lab 08/17/20 20:45 Ordered Urinalysis and Microscopic Stat Lab 08/17/20 14:41 Ordered - Radiology Data #1 Image(s): Chest Image Reviewed: Yes I have reviewed radiologist's interpretation PROCEDURE INFORMATION: Exam: XR Chest Exam date and time: 08/17/2020 2:31 PM Age: 69 years old Clinical indication: Shortness of breath; Patient HX: Woke up dizzy; Additional info: SOA TECHNIQUE: Imaging protocol: XR of the chest. Views: 1 view. COMPARISON: CR XR CHEST PORTABLE 07/08/2020 9:29 PM FINDINGS: Lungs: No lobar consolidation seen. Previously seen interstitial opacities have resolved. Platelike subsegmental atelectasis or scarring in the mid left lung. Pleural spaces: No appreciable effusions or visible pneumothorax. Heart/Mediastinum: Mild cardiomegaly. Bones/joints: Unremarkable. IMPRESSION: No evidence of acute cardiopulmonary disease. - CT Data CT Scan: Head Time Received: 15:[address] Reviewed: Yes: I have viewed the radiologist's interpretation Findings Narrative:
--- NOTE | 2020-08-17 14:31 | XR_ITS ---
PROCEDURE INFORMATION: Exam: XR Chest Exam date and time: 08/17/2020 2:31 PM Age: 69 years old Clinical indication: Shortness of breath; Patient HX: Woke up dizzy; Additional info: SOA TECHNIQUE: Imaging protocol: XR of the chest. Views: 1 view. COMPARISON: CR XR CHEST PORTABLE 07/08/2020 9:29 PM FINDINGS: Lungs: No lobar consolidation seen. Previously seen interstitial opacities have resolved. Platelike subsegmental atelectasis or scarring in the mid left lung. Pleural spaces: No appreciable effusions or visible pneumothorax. Heart/Mediastinum: Mild cardiomegaly. Bones/joints: Unremarkable. IMPRESSION: No evidence of acute cardiopulmonary disease.
--- NOTE | 2020-08-17 14:31 | CT_ITS ---
PROCEDURE INFORMATION: Exam: CT Head Without Contrast Exam date and time: 08/17/2020 2:31 PM Age: 69 years old Clinical indication: Dizziness; Patient HX: Woke up dizzy; Additional info: Syncope TECHNIQUE: Imaging protocol: Computed tomography of the head without contrast. Radiation optimization: All CT scans at this facility use at least one of these dose optimization techniques: automated exposure control; mA and/or kV adjustment per patient size (includes targeted exams where dose is matched to clinical indication); or iterative reconstruction. COMPARISON: CT HEAD/BRAIN WO CON 05/05/2020 3:22:28 AM FINDINGS: Brain: No visible evolving territorial infarct. No hyperdense hemorrhage. Frontotemporal encephalomalacia is again demonstrated. The brain demonstrates mild generalized volume loss. 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 Cerebral ventricles: Stable. Mildly enlarged in keeping with volume loss. Paranasal sinuses: Moderate bilateral ethmoid opacity. Mild maxillary and sphenoid sinus mucosal thickening. Mastoid air cells: Chronic underpneumatization of the mastoids, in particular on the left. Orbital cavity: Stable shrunken left globe, perhaps related to remote trauma. Bones/joints: No acute calvarial fracture seen. A chronic, nondepressed left frontal skull fracture. A chronic appearing nasal bone fracture. 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 Soft tissues: Unremarkable. IMPRESSION: No acute intracranial abnormality seen.
[2020-08-17 14:46] LABS: Basophils % 0.6 % (0.1-2.0); Eosinophils # 0.3 K/mm3 (0.0-0.4); Eosinophils % 3.6 % (0.1-12.0); Hematocrit 30.1 % (42.0-52.0); Hemoglobin 9.7 g/dL (14.1-18.0); Lymphocytes # 1.3 K/mm3 (0.7-4.5); Lymphocytes % 18.1 % (10-50); Mean Corpuscular HGB Conc 32.3 g/dL (31.8-35.4); Mean Corpuscular Hemoglobin 27.9 pg (27.0-31.2); Mean Corpuscular Volume 86.4 fl (80-94); Mean Platelet Volume 7.8 fl (7.4-10.4); Monocytes # 0.5 K/mm3 (0.1-1.0); Monocytes % 7.8 % (1.7-9.3); Neutrophils # 4.8 K/mm3 (1.8-7.8); Platelet Count 237 K/mm3 (142-424); Red Blood Count 3.48 M/mm3 (4.60-6.20); Red Cell Distribution Width 15.4 % (11.5-17.5); White Blood Count 6.9 K/mm3 (4.8-10.8)
[2020-08-17 14:50] LABS: Anion Gap 10.3 mEq/L (5-15); Blood Urea Nitrogen 33 mg/dl (9-20); Calcium 8.9 mg/dl (8.4-10.2); Carbon Dioxide 25 mmol/L (22.0-30.0); Chloride 111 mmol/L (98-107); Creatinine Clearance Estimated 39 mL/min (50-200); Estimated Glomerular Filt Rate 24 ml/min (>60); GFR (African American) 30 ML/MIN (>60); Glucose 100 mg/dl (74-100); Potassium 4.3 mmoL/L (3.5-5.1); Sodium 142 mmol/L (136-145)
[2020-08-17 15:02] LABS: Troponin I < 0.01 ng/ml (0.00-0.034)
[2020-08-17 15:17] LABS: Activated Partial Thrombo Time 31.9 seconds (22.8-30.6); Prothrombin Time 18.9 seconds (10.1-12.5)
[2020-08-17 15:19] LABS: INR 1.66 (0.9-1.1)
[2020-08-17 15:24] LABS: Occult Blood,Stool Positive (Negative)
[2020-08-17 16:10] LABS: Adenovirus,PCR Not Detected (NotDetected); Bordetella Pertussis Not Detected (NotDetected); Chlamydophila Pneumoniae, PCR Not Detected (NotDetected); Coronavirus 19, PCR Not Detected (NotDetected); Coronavirus 229E Not Detected (NotDetected); Coronavirus NL63 Not Detected (NotDetected); Coronavirus OC43 Not Detected (NotDetected); Coronovirus HKU1,PCR Not Detected (NotDetected); Human Metapneumovirus Not Detected (NotDetected); Influenza A, PCR Not Detected (NotDetected); Influenza AH1, 2009 Not Detected (NotDetected); Influenza AH1, PCR Not Detected (NotDetected); Influenza AH3,PCR Not Detected (NotDetected); Influenza B, PCR Not Detected (NotDetected); Mycoplasma Pneumoniae, PCR Not Detected (NotDetected); Parainfluenza 1, PCR Not Detected (NotDetected); Parainfluenza 2, PCR Not Detected (NotDetected); Parainfluenza 3, PCR Not Detected (NotDetected); Parainfluenza 4, PCR Not Detected (NotDetected); Respiratory Syncytial Virus Not Detected (NotDetected)
[2020-08-17 16:10] LABS: Microscopic, Urine URINE MICROSCOPIC (MICROSCOPIC)
[2020-08-17 16:12] LABS: Appearance,Urine SL CLOUDY (Clear); Bilirubin,Urine Negative (Negative); Blood, Urine 2+ (Negative); Color,Urine YELLOW (Yellow); Glucose,Urine (UA) Negative (Negative); Ketones,Urine Negative (Negative); Leukocyte Esterase,Urine 3+ (Negative); Nitrate,Urine Negative (Negative); Protein,Urine TRACE (Negative); Urobilinogen,Urine 0.2 EU/dl (0.2)
[2020-08-17 16:21] LABS: Bacteria,Urine 2+ /lpf; WBC,Urine 50-100 #/hpf (0-3)
[2020-08-17 17:46] LABS: Rhinovirus/Enterovirus Detected (NotDetected)
--- NOTE | 2020-08-17 18:00 | PC.NURSE ---
attempted to call report, no answer, will have to call back
--- NOTE | 2020-08-17 18:15 | PC.NURSE ---
report called to floor
[2020-08-17 18:35] LABS: Troponin I < 0.01 ng/ml (0.00-0.034)
--- NOTE | 2020-08-17 19:00 | PC.NURSE ---
$80 counted and locked in Apartment Addaer with Addison Valiente RN once pt arrived to the floor, clothing was placed in dresser at the bedside. PT IS AOX4, ABLE TO ANSWER QUESTIONS AND FOLLOW COMMANDS, HE IS BLIND IN BOTH EYES AND USES A STRAIGHT CANE TO AMBULATED WITH STANDBY ASSISTANCE, HE DENIES N/V/D OR PAIN AT THIS TIME, HE IS ABLE TO FEED SELF WITH MINIMAL ASSISTANCE FROM STAFF, HE DOES NOT REQUIRE O2 SUPPORT, LUNG SOUNDS CLEAR TO AUSCULTATION, ABD IS SOFT ROUND AND NON-TENDER. NO NEEDS AT THIS TIME WILL CONTINUE TO MONITOR.
[2020-08-17 21:07] LABS: Troponin I < 0.01 ng/ml (0.00-0.034)
--- NOTE | 2020-08-17 22:44 | ECG_ITS ---
APPROVED REPORT Exam: Resting ECG HR:61 bpm ECG Measurements Heart Rate 61 AXES ND 172 P 8 QRSd 106 QRS -22 QT 438 T 26 QTc 440 Conclusion Normal sinus rhythm Normal ECG Electronically signed by : Syed Modi, 08/19/2020 22:03:53
[2020-08-18] VITALS (22 sets, daily range): BP systolic 103–136; BP diastolic 55–85; PULSE 50–60; RESP 13–20; TEMP 36.6–37.3; O2SAT 91–98; BMI 29.9; BMI 30.1
--- NOTE | 2020-08-18 | IR_ITS ---
APPROVED REPORT Patient Location: Inpatient PROCEDURES Left heart catheterization Left ventriculogram Selective coronary angiogram INDICATION Recalcitrant angina pectoris Informed consent was obtained prior to the procedure. COMPLICATIONS None Estimated Blood Loss: Less than 10 mls TECHNIQUE One percent lidocaine used to anesthetize the right anterior aspect of the wrist. The right radial artery was accessed via the Seldinger technique. A 6 [place] sheath was placed in the right radial artery. 2.5 mg of verapamil, 800 mcg of nitroglycerin, 1mg Lidocaine and 5000 U Heparin were given through the arterial sheath. The trap catheter was also used to perform left heart catheterization, left ventriculogram and selective coronary angiogram. At the end of the procedure the sheath was removed good hemostasis was achieved using Traclet band, patient was transferred to the postop holding area in stable condition. ANGIOGRAPHIC RESULTS The left main artery Normal The left anterior descending artery Has proximal 30% stenoses followed by a proximal to mid vessel stent which is widely patent free of in-stent restenosis with excellent proximal distal transitioning. There is a long 30 to 40% calcified smooth stenosis The circumflex artery Is a large caliber codominant vessel with proximal 10 to 20% stenosis in mid vessel 10% stenoses The right coronary artery Is a large codominant vessel with proximal and mid vessel 30% stenoses The JIMENEZ ventriculogram reveals 45 to 50% The left ventricular end-diastolic pressure 15 to 20 mmHg IMPRESSION Mild to moderate nonflow limiting coronary disease with widely patent proximal LAD stent Slightly reduced ejection fraction Mild elevated LVEDP PLAN 1. Continue medical management 2. Risk factor modification 3. Treatment of hypertensive heart disease Electronically signed by : Slava Dodge, 08/18/2020 14:44:17
[2020-08-18 07:02] LABS: Basophils % 0.5 % (0.1-2.0); Eosinophils # 0.2 K/mm3 (0.0-0.4); Eosinophils % 3.9 % (0.1-12.0); Hematocrit 30.4 % (42.0-52.0); Hemoglobin 9.7 g/dL (14.1-18.0); Lymphocytes # 1.4 K/mm3 (0.7-4.5); Lymphocytes % 23.7 % (10-50); Mean Corpuscular Hemoglobin 27.6 pg (27.0-31.2); Mean Corpuscular Volume 86.4 fl (80-94); Mean Platelet Volume 7.7 fl (7.4-10.4); Monocytes # 0.4 K/mm3 (0.1-1.0); Monocytes % 6.9 % (1.7-9.3); Neutrophils # 3.8 K/mm3 (1.8-7.8); Neutrophils % 65.1 % (37.0-80.0); Platelet Count 220 K/mm3 (142-424); Red Blood Count 3.52 M/mm3 (4.60-6.20); Red Cell Distribution Width 15.4 % (11.5-17.5); White Blood Count 5.8 K/mm3 (4.8-10.8)
--- NOTE | 2020-08-18 07:10 | HMH.PHAVTE ---
[facility] Pharm[facility] VTE Monitoring - Patient Demographics Admission date: 08/17/20 Report Date: 08/18/20 Time: 07:10 Allergies/Adverse Reactions: Patient Allergies No Known Allergies Allergy (Verified 07/01/20 10:08) Height: 1.85 m Weight: 102.71 kg Patient Problems: Current Active Problems Chest pain, precordial (Acute) Near syncope (Acute) Occult blood positive stool (Acute) Anemia (Acute) - VTE Risk Labs: VTE Related Lab Results Hgb 9.7 g/dL (14.1-18.0) L 08/18/20 06:13 Hct 30.4 % (42.0-52.0) L 08/18/20 06:13 Plt Count 220 K/mm3 (142-424) 08/18/20 06:13 PT 18.9 seconds (10.1-12.5) H 08/17/20 15:00 INR 1.66 (0.9-1.1) H 08/17/20 15:00 APTT 31.9 seconds (22.8-30.6) H 08/17/20 15:00 BUN 33 mg/dl (9-20) H 08/17/20 14:20 Creatinine 2.60 mg/dl (0.66-1.25) H 08/17/20 14:20 Estimated Creat Clear 39 mL/min (50-200) 08/17/20 14:20 - Prophylaxis VTE Prophylaxis Ordered?: Yes Types of VTE Prophylaxis: TEDS Knee High Location of Applied Device: Bilateral Lower Extremeties
--- NOTE | 2020-08-18 08:13 | HMH.PHAINT ---
MEDICATION RECONCILIATION COMPLETED ON PATIENT USING MAR FROM [facility]. -STEPHANIE HOFFMAN, YASIRD
--- NOTE | 2020-08-18 08:54 | HMH.HP ---
*Admission Date: 08/17/20 *Chief complaint: chest pain *History of present illness: 69 yr old male Brought in by ambulance from [facility] home for chest pain. States he tried to get up from bed to go to the bathroom yesterday morning and felt dizzy like he was going to fall back. He laid back down and felt better, try to get up again and got dizzy again. States he was eventually able to get up and go to the bathroom with assistance. Patient states he finally told a staff member at [facility] he was not feeling well and was having chest pain that was not going away. Patinet states the mild chest pain that lasted about an hour. Associated with some shortness of breath. Patient admited for eval of chest pain with cardiology consult and UTI. [facility] History I have reviewed the patient's past medical history: Yes Medical History: Reports:: Atrial Fibrillation, Congestive Heart Failure, Coronary Artery Disease, Cerebrovascular Accident, Deep Vein Thrombosis, Gastroesophageal Reflux Disease(GERD), Hyperlipidemia, Hypertension, Lung Disease, Kidney Stones, Renal Insufficiency, Urinary Tract Infection Denies:: Cancer, Diabetes Mellitus Type 1, Diabetes Mellitus Type 2, Internal Pacemaker, MRSA, Seizures *Have you ever received a pneumonia vaccine?: No *Have you received a flu vaccine this season?: No Other Medical History: Reports: Anemia, Arthritis. Denies: Blood Transfusion Reaction Laterality Cases: Bilateral: Arthroscopy Knee Other Surgeries: Yes: No Previous Surgery, Appendectomy, Cardiac Catheterization, Cardiac Surgery, Coronary Stent, Skin Cancer Excision, Other (blood clot in leg in the past). No: Pacemaker Amputation: No Fractures: No - *Social History Last grade of school completed: High school graduate Smoking Status: Former smoker Tobacco Type: cigarettes # Packs/Day (cigarettes): 1 Alcohol Intake: never Substance Use Type: denies use *Occupational Status:: unemployed Housing: assisted living facility Household Members: none *Travel in the last 8 weeks: None Family Hx:: Unable to obtain Review of Systems - Review of Systems Review of systems:: pertinent systems reviewed and negative unless documented below - Constitutional Denies body ache(s), Denies fatigue - Eyes Denies blurry vision - ENT Reports dizziness, Denies bleeding gums, Denies post nasal drip - *Cardiovascular Reports chest pain, Reports chest pain at rest, Reports chest pain with activity, Reports shortness of breath, Reports shortness of breath with activity - *Respiratory Reports shortness of breath with activity - *Gastrointestinal Denies abdominal pain - *Genitourinary Reports urinary frequency - *Musculoskeletal Denies tingling - Integumentary/Breasts Denies rash - *Neurologic Reports dizziness, Denies headache(s), Denies numbness, Denies weakness - Psychiatric Denies lack of enjoyment - Endocrine Denies excessive sweating - Hematologic/Lymphatic Denies easy bruising Meds Home Medications Medication Instructions Recorded Confirmed Type OXcarbazepine [Trileptal 300mg 300 mg PO BID 08/20/18 08/17/20 History tablet] Aspirin [Aspirin 81mg chewable 81 mg PO DAILY 04/08/19 08/17/20 History tab] Pantoprazole Sodium [Protonix 40mg 40 mg PO DAILY 04/08/19 08/17/20 History tablet] Simvastatin 20 mg PO HS 04/08/19 08/17/20 History Warfarin Sodium 6 mg PO 1200 05/05/20 08/17/20 History tramadol 50 mg tablet 50 mg PO Q6HP PRN #120 tab 05/09/20 08/17/20 Rx amlodipine 10 mg tablet 10 mg PO BID #60 tab 06/04/20 08/17/20 Rx Tamsulosin HCl [Flomax 0.4mg 0.4 mg PO HS 07/08/20 08/17/20 History capsule] Isosorbide Mononitrate [Isosorbide 30 mg PO DAILY 07/09/20 08/17/20 History Mononitrate ER] Mag Carb/Aluminum Hydrox/Algin 30 ml PO Q4HP PRN 07/09/20 08/18/20 History [Acid Gone Antacid Liquid] Metoprolol Succinate [Metoprolol 200 mg PO DAILY 07/09/20 08/17/20 History Succinate 200mg Tablet*] timoloL
--- NOTE | 2020-08-18 09:13 | HMH.CNCARD ---
History of Present Illness Consult date: 08/18/20 Requesting physician: Shaquille Bowden Consult reason: chest pain Chief complaint: chest pain History of present illness: This is a 69-year-old -[place] gentleman who was brought into the emergency department from [facility] secondary to chest pain. The patient states that he tried to get up from his bed to go to the bathroom yesterday morning and felt dizzy like he was going to fall back. So he laid back down and felt much better. He had to be assisted to the bathroom because the dizziness recurred. The patient states that he also started having chest pain around that time. He describes it as a burning pressure sensation across the anterior aspect of his chest. He states that it is radiating down his right arm. It is associated with shortness of breath and nausea. He states that this is a severe 10 out of 10 pain. It occurs with rest and exertion. It is worse with exertion and does improve with rest. The patient states that this has been going on intermittently for the last several months and continues to get worse. He did have a normal stress test in June 2020 but despite being on antianginals he has continued to have recurrence of his chest pain/angina. [facility] History I have reviewed the patient's past medical history: Yes Medical History: Reports:: Atrial Fibrillation, Congestive Heart Failure, Coronary Artery Disease, Cerebrovascular Accident, Deep Vein Thrombosis, Gastroesophageal Reflux Disease(GERD), Hyperlipidemia, Hypertension, Lung Disease, Kidney Stones, Renal Insufficiency, Urinary Tract Infection Denies:: Cancer, Diabetes Mellitus Type 1, Diabetes Mellitus Type 2, Internal Pacemaker, MRSA, Seizures *Have you ever received a pneumonia vaccine?: No *Have you received a flu vaccine this season?: No Other Medical History: Reports: Anemia, Arthritis. Denies: Blood Transfusion Reaction Laterality Cases: Bilateral: Arthroscopy Knee Other Surgeries: Yes: No Previous Surgery, Appendectomy, Cardiac Catheterization, Cardiac Surgery, Coronary Stent, Skin Cancer Excision, Other (blood clot in leg in the past). No: Pacemaker Amputation: No Fractures: No - *Social History Last grade of school completed: High school graduate Smoking Status: Former smoker Tobacco Type: cigarettes # Packs/Day (cigarettes): 1 Alcohol Intake: never Substance Use Type: denies use *Occupational Status:: unemployed Housing: assisted living facility Household Members: none *Travel in the last 8 weeks: None Family Hx:: Unable to obtain Meds Home Medications Medication Instructions Recorded Confirmed Type OXcarbazepine [Trileptal 300mg 300 mg PO BID 08/20/18 08/17/20 History tablet] Aspirin [Aspirin 81mg chewable 81 mg PO DAILY 04/08/19 08/17/20 History tab] Pantoprazole Sodium [Protonix 40mg 40 mg PO DAILY 04/08/19 08/17/20 History tablet] Simvastatin 20 mg PO HS 04/08/19 08/17/20 History Warfarin Sodium 6 mg PO 1200 05/05/20 08/17/20 History tramadol 50 mg tablet 50 mg PO Q6HP PRN #120 tab 05/09/20 08/17/20 Rx amlodipine 10 mg tablet 10 mg PO BID #60 tab 06/04/20 08/17/20 Rx Tamsulosin HCl [Flomax 0.4mg 0.4 mg PO HS 07/08/20 08/17/20 History capsule] Isosorbide Mononitrate [Isosorbide 30 mg PO DAILY 07/09/20 08/17/20 History Mononitrate ER] Mag Carb/Aluminum Hydrox/Algin 30 ml PO Q4HP PRN 07/09/20 08/18/20 History [Acid Gone Antacid Liquid] Metoprolol Succinate [Metoprolol 200 mg PO DAILY 07/09/20 08/17/20 History Succinate 200mg Tablet*] timoloL maleate [Timolol Maleate] 1 drp EYE-BOTH DAILY 07/09/20 08/17/20 History Loperamide HCl [Loperamide] 2 mg PO Q6HP PRN 08/18/20 08/18/20 History ondansetron HCL [Ondansetron 4mg 4 mg PO Q4HP PRN 08/18/20 08/18/20 History tab*] Allergies Allergy/AdvReac Type Severity Reaction Status Date / Time No Known Allergies Allergy Verified 07/01/20 10:08 Exam Vital signs and Labs for Last 24 Hours: Temp
[2020-08-18 09:50] LABS: Chloride 110 mmol/L (98-107); Sodium 140 mmol/L (136-145)
[2020-08-18 09:51] LABS: Potassium 3.9 mmoL/L (3.5-5.1)
[2020-08-18 09:53] LABS: Blood Urea Nitrogen 25 mg/dl (9-20); Creatinine Clearance Estimated 52 mL/min (50-200); Estimated Glomerular Filt Rate 35 ml/min (>60); GFR (African American) 42 ML/MIN (>60)
[2020-08-18 09:54] LABS: Anion Gap 10.9 mEq/L (5-15); Calcium 8.7 mg/dl (8.4-10.2); Carbon Dioxide 23 mmol/L (22.0-30.0); Glucose 109 mg/dl (74-100)
--- NOTE | 2020-08-18 10:04 | SW/DCPLANNER ---
Addendum entered by Raysa Blanca 08/19/20 09:36: This patient will discharge back to [facility] today. I have informed Ilir and updated patient information has been faxed. Sabino with [facility] has stated they will transport this patient. Original Note: This patient currently resides at [facility]. I have attempted to contact Ilir with [facility] and currently waiting to hear back regarding patients status at [facility]. Discharge date is unknown for this patient at this time: Cardiology will evaluate this patient today.
--- NOTE | 2020-08-18 16:59 | PC.NURSE ---
Pt has been pleasant and cooperative this shift. A&O X4. No complaints of pain or SOA. Pt is on room air with sats. >90%. Lungs CTA. No edema noted. RT wrist cath site covered with a 2X2 and tegaderm. Pt ambulates with a cane and stand-by assistance. Pt uses the urinal to void clear, yellow urine without issue. No BM thus far today. 20 G peripheral IV in the RT AC is patent and SL. VSS. Call light within reach. Will continue to monitor.
[2020-08-19] VITALS: BP 125/75; PULSE 50; PULSE 56; RESP 18; TEMP 36.7; O2SAT 100
--- NOTE | 2020-08-19 03:17 | PC.NURSE ---
shift summary pt is alert and oriented X4. lungs sounds are clear with sats maintained 95% or greater on room air. PT has rested comfortable through the night. right radial cath site dressing is cdi, with no swelling or hematoma. pt has had no complaints. pt voids per bedside urinal urine is clear and yellow in color. pt denies any pain, nausea, vomiting, or diarrhea. no acute changes will continue to monitor.
[2020-08-19 04:00] VITALS: BP 132/79; PULSE 50; PULSE 56; RESP 17; TEMP 37.2; O2SAT 96
[2020-08-19 05:24] VITALS: BMI 30.2
[2020-08-19 07:07] LABS: Basophils # 0.1 K/mm3 (0-0.2); Eosinophils # 0.3 K/mm3 (0.0-0.4); Eosinophils % 5.3 % (0.1-12.0); Hemoglobin 10.1 g/dL (14.1-18.0); Lymphocytes # 1.5 K/mm3 (0.7-4.5); Lymphocytes % 25.4 % (10-50); Mean Corpuscular HGB Conc 32.7 g/dL (31.8-35.4); Mean Corpuscular Volume 85.5 fl (80-94); Mean Platelet Volume 7.8 fl (7.4-10.4); Monocytes # 0.4 K/mm3 (0.1-1.0); Monocytes % 6.1 % (1.7-9.3); Neutrophils # 3.7 K/mm3 (1.8-7.8); Neutrophils % 62.2 % (37.0-80.0); Platelet Count 234 K/mm3 (142-424); Red Blood Count 3.62 M/mm3 (4.60-6.20); Red Cell Distribution Width 15.4 % (11.5-17.5); White Blood Count 5.9 K/mm3 (4.8-10.8)
[2020-08-19 07:13] LABS: Chloride 107 mmol/L (98-107); Sodium 139 mmol/L (136-145)
[2020-08-19 07:14] LABS: Alanine Aminotransferase 8 U/L (12-78); Albumin Level 3.8 g/dl (3.5-5.0); Alkaline Phosphatase 61 U/L (38-126); Aspartate Amino Transferase 21 U/L (17-59); Bilirubin,Direct 0.3 mg/dl (0.0-0.4); Bilirubin,Total 0.3 mg/dl (0.2-1.3); Chol/HDL Ratio 3.8 (1-3.5); Cholesterol 119 mg/dl (140-200); HDL Cholesterol 31 mg/dl (40-60); Triglycerides 115 mg/dl (30-150); VLDL Cholesterol 23 mg/dL (0-40)
[2020-08-19 07:16] LABS: Blood Urea Nitrogen 26 mg/dl (9-20); Carbon Dioxide 23 mmol/L (22.0-30.0); Creatinine Clearance Estimated 55 mL/min (50-200); Estimated Glomerular Filt Rate 37 ml/min (>60); GFR (African American) 45 ML/MIN (>60)
[2020-08-19 07:17] LABS: Calcium 8.8 mg/dl (8.4-10.2); Glucose 75 mg/dl (74-100)
[2020-08-19 07:25] LABS: Direct LDL Cholesterol 48.24 mg/dL (100-129)
[2020-08-19 08:00] VITALS: PULSE 60
--- NOTE | 2020-08-19 08:26 | HMH.DCSUM ---
General - General Admission date:: 08/17/20 Discharge date: 08/19/20 HPI HPI: 69 yr old male Brought in by ambulance from [facility] for chest pain. States he tried to get up from bed to go to the bathroom yesterday morning and felt dizzy like he was going to fall back. He laid back down and felt better, try to get up again and got dizzy again. States he was eventually able to get up and go to the bathroom with assistance. Patient states he finally told a staff member at [facility] he was not feeling well and was having chest pain that was not going away. Patinet states the mild chest pain that lasted about an hour. Associated with some shortness of breath. Patient admited for eval of chest pain with cardiology consult and UTI. Hospital Course Hospital Course: 69 yr old male Brought in by ambulance from [facility] for chest pain. States he tried to get up from bed to go to the bathroom yesterday morning and felt dizzy like he was going to fall back. He laid back down and felt better, try to get up again and got dizzy again. States he was eventually able to get up and go to the bathroom with assistance. Patient states he finally told a staff member at [facility] he was not feeling well and was having chest pain that was not going away. Patinet states the mild chest pain that lasted about an hour. Associated with some shortness of breath. Patient admited for eval of chest pain with cardiology consult and UTI. 08/17/20 CXR: FINDINGS: Lungs: No lobar consolidation seen. Previously seen interstitial opacities have resolved. Platelike subsegmental atelectasis or scarring in the mid left lung. Pleural spaces: No appreciable effusions or visible pneumothorax. Heart/Mediastinum: Mild cardiomegaly. Bones/joints: Unremarkable. IMPRESSION: No evidence of acute cardiopulmonary disease. Electronically signed by Precious Rich, 08/17/[address]: FINDINGS: Brain: No visible evolving territorial infarct. No hyperdense hemorrhage. Frontotemporal encephalomalacia is again demonstrated. The brain demonstrates mild generalized volume loss. 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 Cerebral ventricles: Stable. Mildly enlarged in keeping with volume loss. Paranasal sinuses: Moderate bilateral ethmoid opacity. Mild maxillary and sphenoid sinus mucosal thickening. Mastoid air cells: Chronic underpneumatization of the mastoids, in particular on the left. Orbital cavity: Stable shrunken left globe, perhaps related to remote trauma. Bones/joints: No acute calvarial fracture seen. A chronic, nondepressed left frontal skull fracture. A chronic appearing nasal bone fracture. 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 Soft tissues: Unremarkable. IMPRESSION: No acute intracranial abnormality seen. Electronically signed by Precious Rich, 08/18/20 Card Cath: [facility] shows: The left main artery Normal The left anterior descending artery Has proximal 30% stenoses followed by a proximal to mid vessel stent which is widely patent free of in-stent restenosis with excellent proximal distal transitioning. There is a long 30 to 40% calcified smooth stenosis The circumflex artery Is a large caliber codominant vessel with proximal 10 to 20% stenosis in mid vessel 10% stenoses The right coronary artery Is a large codominant vessel with proximal and mid vessel 30% stenoses The JIMENEZ ventriculogram reveals 45 to 50% The left ventricular end-diastolic pressure 15 to 20 mmHg IMPRESSION Mild to moderate nonflow limiting coronary disease with widely patent proximal LAD stent Slightly reduced ejection fraction Mild elevated LVEDP PLAN 1. Continue medical management 2. Risk factor modification 3. Treatment of hypertensive heart disease LVEDP is slightly elevated. Starrt Lasix 20 mg daily for diuresis. BMP in the morning. No further recommendations from
--- NOTE | 2020-08-19 08:50 | HMH.PNCARD ---
Subjective Date: 08/19/20 Time: 08:30 Principal diagnosis: angina, CAD Interval history: This is a 69-year-old -[place] gentleman who was brought into the emergency department from [facility] secondary to chest pain. The patient underwent left cardiac catheterization yesterday and had patent coronary artery disease that required no percutaneous intervention. He did have a mildly elevated LVEDP and was started on Lasix. The patient tolerated this procedure well. This morning he denies any chest pain or pressure. He denies any shortness of breath or edema. He denies any fever, chills, nausea, vomiting, diarrhea, PND or orthopnea. Exam Vital signs and Labs for Last 24 Hours: Temp Pulse Resp BP Pulse Ox 99.0 F 56 L 17 132/79 96 08/19/20 04:00 08/19/20 04:00 08/19/20 04:00 08/19/20 04:00 08/19/20 04:00 Laboratory Results - last 24 hr 08/18/20 09:38: Sodium 140, Potassium 3.9, Chloride 110 H, Carbon Dioxide 23, Anion Gap 10.9, BUN 25 H, Creatinine 1.90 H D, Estimated Creat Clear 52, Estimated GFR 35 L, Est GFR ( Amer) 42 L D, Glucose 109 H, Calcium 8.7 08/19/20 06:31: WBC 5.9, RBC 3.62 L, Hgb 10.1 L, Hct 31.0 L, MCV 85.5, MCH 28.0, MCHC 32.7, RDW 15.4, Plt Count 234, MPV 7.8, Neut % (Auto) 62.2, Lymph % (Auto) 25.4, Leon % (Auto) 6.1, Eos % (Auto) 5.3, Baso % (Auto) 1.0, Neut # (Auto) 3.7, Lymph # (Auto) 1.5, Leon # (Auto) 0.4, Eos # (Auto) 0.3, Baso # (Auto) 0.1 08/19/20 06:31: Sodium 139, Potassium 4.0, Chloride 107, Carbon Dioxide 23, Anion Gap 13.0, BUN 26 H, Creatinine 1.80 H, Estimated Creat Clear 55, Estimated GFR 37 L, Est GFR ( Amer) 45 L, Glucose 75 D, Calcium 8.8 08/19/20 06:31: Total Bilirubin 0.3, Direct Bilirubin 0.3, Conjugated Bilirubin 0.0, Indirect Bilirubin 0.0, Unconjugated Bilirubin 0.0, AST 21, ALT 8 L, Alkaline Phosphatase 61, Total Protein 7.0, Albumin 3.8, Triglycerides 115, Cholesterol 119 L, LDL Cholesterol Direct 48.24 L, VLDL Cholesterol 23, HDL Cholesterol 31 L, Cholesterol/HDL Ratio 3.8 H I & O for Last 24 hours: Intake & Output 08/16/20 08/17/20 08/18/20 08/19/20 23:59 23:59 23:59 23:59 Intake Total 120 / 120 780 / 780 Output Total 500 / 500 1800 / 1800 1100 / 1100 Balance -380 / -380 -1020 / -1020 -1100 / -1100 Weight 235 lb 14.314 oz 227 lb 1.218 oz 228 lb 9 oz Microbiology Reports for the Last 24 Hours: Microbiology 08/17/20 15:35 Urine,Clean Catch Urine Culture - Preliminary NO GROWTH AFTER 24 HOURS Narrative: Telemetry strip is sinus rhythm. - Constitutional no acute distress, obese - *Routine HEENT Exam Head: Present: normocephalic, atraumatic ENT: Present: mucous membranes moist - *Routine Neck Exam Present: supple, full ROM, normal carotid upstroke. Absent: JVD, carotid bruit, lymphadenopathy - *Routine Respiratory Exam Present: CTA bilaterally - *Routine Cardiovascular Exam Present: RRR, Normal S1, Normal S2. Absent: murmur - *Routine Abdominal Exam Present: soft, normoactive bowel sounds. Absent: tenderness, distended - *Routine Extremities Exam Present: full ROM, pulses intact, normal capillary refill. Absent: cyanosis, clubbing, edema - *Routine Skin Exam Present: intact, warm. Absent: erythema, rash - *Routine Neurological Exam Present: alert, oriented X3, CN II-XII intact. Absent: sensory deficit, motor deficit Progress Note: A&P (1) Angina pectoris Status: Resolved (2) Near syncope Status: Acute (3) SOB (shortness of breath) Status: Resolved (4) UTI (urinary tract infection) Status: Acute (5) Visual impairment Status: Chronic (6) Acute renal failure (ARF) Status: Acute (7) CVA (cerebral vascular accident) Status: Acute (8) A-fib Status: Chronic (9) Diastolic dysfunction Status: Chronic (10) HLD (hyperlipidemia) Status: Chronic (11) CAD (coronary artery disease) Status: Chronic (12) High blood pressure Status: Ch
--- NOTE | 2020-08-19 08:56 | HMH.PTEV ---
Physical Therapy Evaluation Rehab PT IP Evaluation Start: 08/19/20 08:50 Freq: ONCE Status: Active Protocol: Document 08/19/20 08:50 JORGE ALBERTO (Rec: 08/19/20 08:55 JORGE ALBERTO [id number]) Subjective/History History History 69 yr old male Brought in by ambulance from [facility] for chest pain. States he tried to get up from bed to go to the bathroom yesterday morning and felt dizzy like he was going to fall back. He laid back down and felt better , try to get up again and got dizzy again. States he was eventually able to get up and go to the bathroom with assistance. Patient states he finally told a staff member at [facility] he was not feeling well and was having chest pain that was not going away. Patinet states the mild chest pain that lasted about an hour. Associated with some shortness of breath. Patient admited for eval of chest pain with cardiology consult and UTI. - copied from ED report Subjective Subjective no complaints from pt Rehab PT IP Eval Objective Appearance Patient Behavior Appropriate,Cooperative Patient Orientation Person,Place Difficulty following instructions none Speech Pattern Clear,Appropriate Ambulation Patient Able to Ambulate Yes Ambulation Observation IP General Gait Pattern Observation No Deviations/Normal Ambulation Distance (feet) 30 Ambulation Assistive Device Straight Cane Ambulation Ability Supervision/Stand by,Contact Guard/Hand Hold Balance Ability to Arise Able, uses arms to help Sitting Balance Steady, safe Standing Balance Steady, wide stance Dynamic Sitting Balance Ability Good Dynamic Standing Balance Ability Fair Transfers Bed Transfer Ability Independent Chair Transfer Ability Independent Sit to Stand Bed Transfer Ability Supervision/Stand by Sit to Stand Chair Transfer Ability Supervision/Stand by ROM All Extremities PT ROM Status WFL MMT All Extremities PT MMT WFL Rehab PT IP prob,goals,plan
--- NOTE | 2020-08-19 10:13 | PC.NURSE ---
Called report to Neris Russell. She is aware of pt's follow-up appointment, cardiac cath education given over phone. R radial cath site c/d/i. IV in [facility] dc'd.
--- NOTE | 2020-08-19 10:37 | HMH.OTEV ---
OT Inpatient Evaluation Rehab OT IP Evaluation Start: 08/19/20 08:51 Freq: ONCE Status: Complete Protocol: Document 08/19/20 10:34 [facility] (Rec: 08/19/20 10:37 [facility] [id number]) Rehab OT IP Assessment Subjective History Pt oriented x 2 on arrival. Pt was admitted via ED on due to chest pain and dizziness. Pt has a past medical history of A-fib, CHF, CAD, CVA, DVT, GERD, HTN, and renal insufficiency. Pt lived at [facility] prior to hospital. Pt claims he was independent with all ADLs. Staff did complete IADLs. Subjective I am ready to go. Objective Patient Orientation Person,Place,Birthday Upper Extremity Gross ROM WFL Bed Mobility bed mobility-scooting,bed mobility - supine/sit,bed mobility - rolling Assist Level Supervision/Stand by Transfer Training Sit/Stand Transfer Assist Level Supervision/Stand by Lower Body Dressing Ability Standby Assistance Upper Body Dressing Ability Standby Assistance Rehab OT IP prob,goals,plan Problems Date of Evaluation: 08/19/20 Rehab Potential Rehab Potential Innapropriate for Skilled Therapy Discharge Plan OT Discharge Plan Pt appears to be at baseline functionally; he is safe to return home at [facility] once medically stable. Eval Complexity Eval Charge Codes 31776 - Moderate Complexity G Codes G -code Required No PHYSICIAN CERTIFICATION: I certify the specified therapy services for Edi Toussaint are required, authorized, and reviewed every 30 days.
== END 2020-08-19 10:38 | disposition home or self-care (01) ==
LOC: ER 15:58 → 2ND 18:36
PROVIDERS: Internal Medicine; Nurse Practitioner Family; Admitting Provider Internal Medicine Adolescent Medicine; Emergency Provider Emergency Medicine; PCP Emergency Medicine; Visit Provider Emergency Medicine
DX: I25.10 Atherosclerotic heart disease of native coronary artery without angina pectoris (principal); Z95.5 Presence of coronary angioplasty implant and graft; I48.0 Paroxysmal atrial fibrillation; N17.9 Acute kidney failure, unspecified; I50.9 Heart failure, unspecified; I11.0 Hypertensive heart disease with heart failure; N39.0 Urinary tract infection, site not specified; J44.9 Chronic obstructive pulmonary disease, unspecified; K21.9 Gastro-esophageal reflux disease without esophagitis; Z79.01 Long term (current) use of anticoagulants; Z87.891 Personal history of nicotine dependence; H54.7 Unspecified visual loss; Z86.73 Personal history of transient ischemic attack (TIA), and cerebral infarction without residual deficits
CPT/HCPCS: 36415; 70450; 71045; 80048; 80061; 80076; 81001; 82272; 84484; 85025; 85610; 85730; 87086; 87581; 87633; 87798; 93005; 93306; 93458; 97161; 97166; 99152; 99284; C1725; C1760; C1769; G0328; G0378; J1644; Q9967

== ENCOUNTER → 2020-08-26 11:08 | Outpatient (CLI) | payer MEDICARE, SELFPAY ==
--- NOTE | 2020-08-26 11:11 | XR_ITS ---
PROCEDURE: XR CHEST 2V CLINICAL HISTORY: recent fall 1 week ago, right rib pain. COMPARISON: CR XR CHEST PORTABLE from 05/05/2020 CR XR CHEST PORTABLE from 07/08/2020 CR XR CHEST PORTABLE from 08/17/2020 FINDINGS: The cardiomediastinal silhouette and pulmonary vascularity are within normal limits. The lungs are clear without infiltrates, suspicious nodules, or pleural effusions. No acute bony abnormalities. Partial eventration of the right hemidiaphragm. IMPRESSION: Mild scar versus atelectasis in the lung bases. No focal infiltrate or overt failure. Dictated by: Edi Gunn 08/26/2020 11:39 Edi Gunn in OV 08/26/2020 11:39
--- NOTE | 2020-08-26 11:11 | CT_ITS ---
PROCEDURE: CT HEAD/BRAIN WO CON CLINICAL INDICATION: recent fall 1 week ago, right rib pain. COMPARISON: 08/17/2020 TECHNIQUE: Axial images obtained. All CT scans at the facility use one or more dose reduction, viz: automated exposure control, ma/kV adjustment per patient size (including targeted exams where dose is matched to indication, i.e. head), or iterative reconstruction technique. FINDINGS: Old infarct left frontal and temporal region with associated encephalomalacia. Diffuse cerebral atrophy and some small-vessel ischemic change. No cerebral edema mass effect or midline shift. No evidence of acute intracranial or subarachnoid hemorrhage. Tiny left frontal temporal subdural hygroma again noted, unchanged. Some bilateral mucosal thickening noted in the ethmoid sinuses. Skull base is normal. Mastoid air cells are patent. IMPRESSION: No acute intracranial abnormality. 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 Some bilateral mucosal thickening in the ethmoid sinuses. Dictated by: Edi Gunn 08/26/2020 12:10 Edi Gunn in OV 08/26/2020 12:10
== END ==
PROVIDERS: PCP Emergency Medicine; Visit Provider Nurse Practitioner Family
DX: E78.2 Mixed hyperlipidemia (principal); I25.119 Atherosclerotic heart disease of native coronary artery with unspecified angina pectoris; I27.20 Pulmonary hypertension, unspecified; I99.9 Unspecified disorder of circulatory system; R06.02 Shortness of breath
CPT/HCPCS: 70450; 71046

== ENCOUNTER 2020-09-23 13:46 | Inpatient (IN) | payer MEDICARE, MEDICAID, SELFPAY ==
[2020-09-23] VITALS (20 sets, daily range): BP systolic 112–164; BP diastolic 56–96; PULSE 58–78; RESP 14–22; TEMP 36.5–37.4; O2SAT 92–99; BMI 28.7; BMI 29.0
--- NOTE | 2020-09-23 13:46 | ECG_ITS ---
APPROVED REPORT Exam: Resting ECG HR:60 bpm ECG Measurements Heart Rate 60 AXES MS 172 P 2 QRSd 102 QRS -18 QT 442 T 16 QTc 442 Conclusion Normal sinus rhythm Nonspecific T wave abnormality Abnormal ECG Electronically signed by : Syed Modi, 09/24/2020 21:38:00
--- NOTE | 2020-09-23 13:55 | HMH.EDGENADL ---
ED Disposition Clinical Impression: Occult blood positive stool Anemia Qualifiers: Anemia type: unspecified type Qualified Code(s): D64.9 - Anemia, unspecified Disposition: Admitted as Observation Condition on Discharge: Fair - Critical Care Critical Care Time: No Attestation: On 09/23/20, the high probability of a clinically significant, sudden or life threatening deterioration of the following system(s) required my full and direct attention, intervention and personal management. The time I documented below is in addition to time spent performing reported procedures but includes the following listed in this critical care notation. Medical Decision Making - Medical Records Medical records reviewed: Yes: I reviewed the patient's medical records. MR Comment: Recent admission here 08/18/2019 through 08/19/2020 for similar episode. Ruled out for [place] and had a cardiac cath, results below. Also noted to have occult blood positive stool at that time. - River Inquiry Pt receiving controlled substance: No Vital Signs: 09/23/20 13:47 09/23/20 14:36 09/23/20 14:45 Temperature 97.7 F Temperature Source Oral Pulse Rate 62 61 Pulse Rate [Right] 61 Respiratory Rate 20 16 14 Blood Pressure Blood Pressure [Right Arm] 115/72 Blood Pressure Mean Blood Pressure Mean [Right Arm] 86 02 Sat by Pulse Oximetry 98 92 L 94 L Oxygen Delivery Method Room Air 09/23/20 15:00 09/23/20 15:31 09/23/20 15:54 Temperature Temperature Source Pulse Rate 58 L 66 62 Pulse Rate [Right] Respiratory Rate 15 14 17 Blood Pressure 120/65 122/62 Blood Pressure [Right Arm] Blood Pressure Mean 73 70 Blood Pressure Mean [Right Arm] 02 Sat by Pulse Oximetry 99 97 95 Oxygen Delivery Method Room Air - Lab Data Lab Results 09/23/20 14:01: WBC 7.0, RBC 2.20 L, Hgb 5.6 L*, Hct 18.8 L*, MCV 85.8, MCH 25.3 L, MCHC 29.5 L, RDW 14.9, Plt Count 300, MPV 7.3 L, Neut % (Auto) 68.9, Lymph % (Auto) 18.9, [place] % (Auto) 8.6, Eos % (Auto) 2.9, Baso % (Auto) 0.7, Neut # (Auto) 4.8, Lymph # (Auto) 1.3, [place] # (Auto) 0.6, Eos # (Auto) 0.2, Baso # (Auto) 0.1 09/23/20 14:01: Sodium 145, Potassium 4.2, Chloride 112 H, Carbon Dioxide 23, Anion Gap 14.2, BUN 27 H, Creatinine 2.30 H, Estimated Creat Clear 44, Estimated GFR 28 L, Est GFR ( Amer) 34 L, Glucose 111 H, Calcium 8.8, Total Bilirubin 0.2, AST 20, ALT 10 L, Alkaline Phosphatase 59, Troponin I < 0.01, Albumin 3.8 09/23/20 14:01: Lipase 45 09/23/20 15:26: Crossmatch (AHG) See Detail 09/23/20 15:30: Stool Occult Blood Positive A 09/23/20 15:38: SARS-CoV-2 (PCR) Not detected, Influenza A Untype (PCR) Not detected, Influenza Type B (PCR) Not detected Result diagrams: 09/23/20 14:01 09/23/20 14:01 Orders (Tests/Meds): ED MEDICATIONS Generic Name Dose Route Start Last Admin Trade Name Freq PRN Reason Stop Dose Admin Sodium Chloride 250 mls @ 25 mls/hr 09/23/20 15:15 Sod Chlor 0.9% 250ml Bag IV 09/24/20 15:14 .Q10H [facility] Category Date Time Status PRBC [Red Blood Cells] Stat [facility] 09/23/20 15:26 Received Type and Screen Stat K 09/23/20 15:26 Received Comprehensive Metabolic Panel Stat Lab 09/23/20 14:01 Results Troponin I Stat Lab 09/23/20 14:01 Results PROCEDURES Left heart catheterization Left ventriculogram Selective coronary angiogram INDICATION Recalcitrant angina pectoris Informed consent was obtained prior to the procedure. COMPLICATIONS None Estimated Blood Loss: Less than 10 mls TECHNIQUE One percent lidocaine used to anesthetize the right anterior aspect of the wrist. The right radial artery was accessed via the Seldinger technique. A 6 Maltese sheath was placed in the right radial artery. 2.5 mg of verapamil, 800 mcg of nitroglycerin, 1mg Lidocaine and 5000 U Heparin were given through the arterial sheath. The trap catheter was also used to perform left heart catheterization, left ventric
--- NOTE | 2020-09-23 14:30 | XR_ITS ---
PROCEDURE: XR CHEST PORTABLE CLINICAL HISTORY: soa COMPARISON: CR XR CHEST PORTABLE from 07/08/2020 CR XR CHEST PORTABLE from 08/17/2020 CR XR CHEST 2V from 08/26/2020 FINDINGS: Exam is performed in lordotic position. There is mild cardiomegaly without failure. No lobar consolidation or collapse. No acute bony findings. IMPRESSION: No acute findings. Dictated by: Edwar Mckay MD 09/23/2020 14:58 Edwar Mckay MD in [place] 09/23/2020 14:58
[2020-09-23 14:42] LABS: Lipase 45 U/L (23-300)
[2020-09-23 14:43] LABS: Chloride 112 mmol/L (98-107); Potassium 4.2 mmoL/L (3.5-5.1); Sodium 145 mmol/L (136-145)
[2020-09-23 14:46] LABS: Alanine Aminotransferase 10 U/L (12-78); Albumin Level 3.8 g/dl (3.5-5.0); Alkaline Phosphatase 59 U/L (38-126); Anion Gap 14.2 mEq/L (5-15); Aspartate Amino Transferase 20 U/L (17-59); Bilirubin,Total 0.2 mg/dl (0.2-1.3); Blood Urea Nitrogen 27 mg/dl (9-20); Carbon Dioxide 23 mmol/L (22.0-30.0); Creatinine Clearance Estimated 44 mL/min (50-200); Estimated Glomerular Filt Rate 28 ml/min (>60); GFR (African American) 34 ML/MIN (>60)
[2020-09-23 14:47] LABS: Calcium 8.8 mg/dl (8.4-10.2); Glucose 111 mg/dl (74-100)
--- NOTE | 2020-09-23 14:48 | CT_ITS ---
PROCEDURE: CT ABDOMEN PELVIS WO CON CLINICAL INDICATION: abdo pain COMPARISON: CT CT ABDOMEN PELVIS WO CON from 07/08/2020 TECHNIQUE: Axial images obtained with sagittal and coronal reformats. All CT scans at the facility use one or more dose reduction, viz: automated exposure control, ma/kV adjustment per patient size (including targeted exams where dose is matched to indication, i.e. head), or iterative reconstruction technique. FINDINGS: LOWER THORAX: Coronary artery calcifications. Gynecomastia. Cardiomegaly. ABDOMEN & PELVIS: There are several small hypodensities of the liver unchanged. Small hiatal hernia with mild thickening of the distal esophagus. The spleen and adrenal glands are unremarkable. The pancreas has an unremarkable appearance. Previously noted haziness in the mesenteries in the right mid abdominal region is no longer apparent. There are numerous bilateral renal cysts and bilateral renal calculi. A stone or cluster of stones is noted in the lower pole of the right kidney at 11 mm. An 8 mm stone is present in the upper pole of the right kidney. Other smaller stones are present. Stones are present in the lower pole of the left kidney measuring up to 10 mm. No ureteral calculi parent. No hydronephrosis. Mild amount of retained colonic feces. No evidence of appendicitis. No intestinal obstruction or free air. There is colonic diverticulosis. No evidence of diverticulitis. Small there is a small umbilical hernia containing fat. The prostate is enlarged measuring 6 by 6 cm. There is mild distention of the urinary bladder with a small bladder diverticulum on the left posteriorly There are degenerative changes in the lumbar spine and hips. Sclerotic focus is present in the left femoral neck unchanged. IMPRESSION: 1. No change numerous bilateral renal cysts and bilateral nephrolithiasis. No obstructing ureteral calculus apparent. 2. Enlarged prostate. Urinary bladder is also enlarged which could be due to bladder outlet obstruction from the enlarged prostate 3. Colonic diverticulosis without diverticulitis. 4. No change multiple hepatic hypodensities which may be due to small cysts Dictated by: Edwar Mckay MD 09/23/2020 15:51 Edwar Mckay MD in [place] 09/23/2020 15:51
[2020-09-23 15:00] LABS: Basophils # 0.1 K/mm3 (0-0.2); Basophils % 0.7 % (0.1-2.0); Eosinophils # 0.2 K/mm3 (0.0-0.4); Eosinophils % 2.9 % (0.1-12.0); Lymphocytes # 1.3 K/mm3 (0.7-4.5); Lymphocytes % 18.9 % (10-50); Mean Corpuscular HGB Conc 29.5 g/dL (31.8-35.4); Mean Corpuscular Hemoglobin 25.3 pg (27.0-31.2); Mean Corpuscular Volume 85.8 fl (80-94); Mean Platelet Volume 7.3 fl (7.4-10.4); Monocytes # 0.6 K/mm3 (0.1-1.0); Monocytes % 8.6 % (1.7-9.3); Neutrophils # 4.8 K/mm3 (1.8-7.8); Neutrophils % 68.9 % (37.0-80.0); Platelet Count 300 K/mm3 (142-424); Red Cell Distribution Width 14.9 % (11.5-17.5)
[2020-09-23 15:01] LABS: Troponin I < 0.01 ng/ml (0.00-0.034)
--- NOTE | 2020-09-23 15:12 | PC.NURSE ---
Critical lab values: hgb 5.6, hct 18.8. Dr. Anglin notified.
[2020-09-23 15:13] LABS: Hematocrit 18.8 % (42.0-52.0); Hemoglobin 5.6 g/dL (14.1-18.0)
--- NOTE | 2020-09-23 15:15 | PC.NURSE ---
Pt to CT scanner via stretcher at this time.
--- NOTE | 2020-09-23 15:30 | PC.NURSE ---
Pt back from CT scanner, lab called for omer.
--- NOTE | 2020-09-23 15:40 | PC.NURSE ---
Type & cross drawn by lab.
[2020-09-23 15:41] LABS: Coronavirus 19, PCR Not Detected (NotDetected); Influenza A, PCR Not Detected (NotDetected); Influenza B, PCR Not Detected (NotDetected)
[2020-09-23 16:16] LABS: Occult Blood,Stool Positive (Negative)
--- NOTE | 2020-09-23 16:17 | PC.NURSE ---
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
--- NOTE | 2020-09-23 16:33 | PC.NURSE ---
Jorden Russell updated on plan of care for admission.
--- NOTE | 2020-09-23 16:59 | PC.NURSE ---
gave status up date to Everton Cantrell, johny at [facility]
--- NOTE | 2020-09-23 17:10 | PC.NURSE ---
Report given to Taylor RO
[2020-09-23 19:35] LABS: Albumin/Globulin Ratio 1.4 (1.1-1.8); Globulin 2.8 g/dL (1.3-3.2); Total Protein,Serum 6.6 g/dl (6.3-8.2)
--- NOTE | 2020-09-23 19:49 | HMH.GSCON ---
*Admission Date: 09/23/20 *Reason for consult:: GI blood loss anemia *History of present illness: Patient is a 70-year-old male who is a resident of [facility] with a history of atrial fibrillation, congestive heart failure, coronary artery disease, cerebrovascular accident, lower extremity deep vein thrombosis, hypertension, lung disease, renal insufficiency. Patient is on Xarelto. He had an apparent syncopal episode with dizziness. He was therefore transported to [facility] emergency department. He was found to have anemia with a hemoglobin of 5.6. Of note, the patient had a recent admission initially with similar symptoms of dizziness with the additional symptoms of chest pain and shortness of air. He was hospitalized 08/17/2020 until 08/19/2020. He did undergo left heart catheterization and cardiac evaluation during that admission. He was Hemoccult positive. At that time his hemoglobin was 9.7. Consideration was being given for possible outpatient colonoscopy. Review of Systems - Review of Systems Review of systems:: pertinent systems reviewed and negative unless documented below [facility] History I have reviewed the patient's past medical history: Yes Medical History: Reports:: Atrial Fibrillation, Congestive Heart Failure, Coronary Artery Disease, Cerebrovascular Accident, Deep Vein Thrombosis, Gastroesophageal Reflux Disease(GERD), Hyperlipidemia, Hypertension, Lung Disease, Kidney Stones, Renal Insufficiency, Urinary Tract Infection Denies:: Cancer, Diabetes Mellitus Type 1, Diabetes Mellitus Type 2, Internal Pacemaker, MRSA, Seizures *Have you ever received a pneumonia vaccine?: Yes *Have you received a flu vaccine this season?: Yes Other Medical History: Reports: Anemia, Arthritis. Denies: Blood Transfusion Reaction Laterality Cases: Bilateral: Arthroscopy Knee Other Surgeries: Yes: No Previous Surgery, Appendectomy, Cardiac Catheterization, Cardiac Surgery, Coronary Stent, Skin Cancer Excision, Other (blood clot in leg in the past). No: Pacemaker Amputation: No Fractures: No - *Social History Smoking Status: Former smoker Tobacco Type: cigarettes # Packs/Day (cigarettes): 1 Alcohol Intake: never Substance Use Type: denies use *Occupational Status:: disabled Housing: assisted living facility Household Members: none *Travel in the last 8 weeks: None Family Hx:: Unable to obtain Meds Home Medications Medication Instructions Recorded Confirmed Type OXcarbazepine [Trileptal 300mg 300 mg PO BID 08/20/18 09/23/20 History tablet] Aspirin [Aspirin 81mg chewable 81 mg PO DAILY 04/08/19 09/23/20 History tab] Pantoprazole Sodium [Protonix 40mg 40 mg PO DAILY 04/08/19 09/23/20 History tablet] Simvastatin 20 mg PO HS 04/08/19 09/23/20 History tramadol 50 mg tablet 50 mg PO Q6HP PRN #120 tab 05/09/20 09/23/20 Rx amlodipine 10 mg tablet 10 mg PO BID #60 tab 06/04/20 09/23/20 Rx Tamsulosin HCl [Flomax 0.4mg 0.4 mg PO HS 07/08/20 09/23/20 History capsule] Isosorbide Mononitrate [Isosorbide 30 mg PO DAILY 07/09/20 09/23/20 History Mononitrate ER] Mag Carb/Aluminum Hydrox/Algin 30 ml PO Q4HP PRN 07/09/20 09/23/20 History [Acid Gone Antacid Liquid] Metoprolol Succinate [Metoprolol 200 mg PO DAILY 07/09/20 09/23/20 History Succinate 200mg Tablet*] timoloL maleate [Timolol Maleate] 1 drp EYE-BOTH DAILY 07/09/20 09/23/20 History Loperamide HCl [Loperamide] 2 mg PO Q6HP PRN 08/18/20 09/23/20 History ondansetron HCL [Ondansetron 4mg 4 mg PO Q4HP PRN 08/18/20 09/23/20 History tab*] Furosemide [Furosemide 40MG tAB*] 20 mg PO DAILY 09/23/20 09/23/20 History Rivaroxaban [Xarelto 20mg Tablet*] 20 mg PO DAILY 09/23/20 09/23/20 History Allergies Allergy/AdvReac Type Severity Reaction Status Date / Time No Known Allergies Allergy Verified 09/23/20 14:00 Exam Vital signs and Labs for Last 24 Hours: Temp Pulse Resp BP Pulse Ox 97.7 F 70 22 132/74 96 09/23/20 17:10 07
[2020-09-24] VITALS (47 sets, daily range): BP systolic 115–183; BP diastolic 67–108; PULSE 59–86; RESP 14–19; TEMP 36.6–37.5; O2SAT 90–99; BMI 28.3; BMI 28.1
--- NOTE | 2020-09-24 04:06 | PC.NURSE ---
Patient is alert and oriented this shift. Patient has rested okay this shift. 2 units where transfused per order, not reactions noted. Patient has had adequate output. Patient lung sounds are diminished but clear. Patient has been pleasant. Vital signs are stable. Will continue to monitor. Call light and urinal within reach.
[2020-09-24 04:22] LABS: Hematocrit 23.2 % (42.0-52.0)
--- NOTE | 2020-09-24 04:25 | PC.NURSE ---
Adali from Lab called at 0420 for a critical H&H on Edi Toussaint, 46 (verified x2). Hbg 7.2 Hct 23.2 MD preconstruction manager was notified at [phone]
[2020-09-24 04:45] LABS: Hemoglobin 7.2 g/dL (14.1-18.0)
[2020-09-24 07:15] LABS: Basophils # 0.1 K/mm3 (0-0.2); Basophils % 0.6 % (0.1-2.0); Eosinophils # 0.2 K/mm3 (0.0-0.4); Eosinophils % 2.4 % (0.1-12.0); Hematocrit 24.5 % (42.0-52.0); Lymphocytes # 1.2 K/mm3 (0.7-4.5); Lymphocytes % 14.7 % (10-50); Mean Corpuscular HGB Conc 30.2 g/dL (31.8-35.4); Mean Corpuscular Hemoglobin 25.4 pg (27.0-31.2); Mean Corpuscular Volume 84.2 fl (80-94); Mean Platelet Volume 7.2 fl (7.4-10.4); Monocytes # 0.6 K/mm3 (0.1-1.0); Monocytes % 7.6 % (1.7-9.3); Neutrophils # 6.2 K/mm3 (1.8-7.8); Neutrophils % 74.8 % (37.0-80.0); Platelet Count 287 K/mm3 (142-424); Red Blood Count 2.91 M/mm3 (4.60-6.20); Red Cell Distribution Width 14.7 % (11.5-17.5); White Blood Count 8.3 K/mm3 (4.8-10.8)
[2020-09-24 07:32] LABS: Hemoglobin 7.4 g/dL (14.1-18.0)
--- NOTE | 2020-09-24 07:34 | HMH.PHAVTE ---
[facility] Pharmacy VTE Monitoring - Patient Demographics Admission date: 09/23/20 Report Date: 09/24/20 Time: 07:34 Allergies/Adverse Reactions: Patient Allergies No Known Allergies Allergy (Verified 09/23/20 14:00) Height: 1.93 m Weight: 105.489 kg Patient Problems: Current Active Problems Occult blood positive stool (Acute) Anemia (Acute) - VTE Risk Labs: VTE Related Lab Results Hgb 7.4 g/dL (14.1-18.0) L* 09/24/20 06:27 Hct 24.5 % (42.0-52.0) L 09/24/20 06:27 Plt Count 287 K/mm3 (142-424) 09/24/20 06:27 BUN 27 mg/dl (9-20) H 09/23/20 14:01 Creatinine 2.30 mg/dl (0.66-1.25) H 09/23/20 14:01 Estimated Creat Clear 44 mL/min (50-200) 09/23/20 14:01 - Prophylaxis VTE Prophylaxis Ordered?: Yes Types of VTE Prophylaxis: TEDS Knee High Location of Applied Device: Bilateral Lower Extremeties
--- NOTE | 2020-09-24 07:41 | PC.NURSE ---
Pt down by wheelchair @ this time for EGD
--- NOTE | 2020-09-24 07:54 | HMH.ANESCL ---
[facility] Anesthesia Checklist - Patient Identification Patient Identification: Arm Band - Structural Data Admitted From: Inpatient Planned Operative Procedure/s: egd Consent for Planned Operative Procedure(s) Verified: Yes Verified Documents: Surgical Consent, History and Physical - NPO Status Verified Time NPO: 00:00 - Additional verifications Anesthesia Reactions: No Hx Blood Transfusions: No Blood Transfusion Reaction: No - Airway Assessment C-Spine Mobility Assessed: Yes (mp3) TMJ Mobility Assessed: Yes Dentition: Edentulous - Neurological Assessment Level of Consciousness: Awake, Alert - Anesthesia Plan Anesthesia Risk discussed: Yes Anesthesia Plan: Verified ASA Class: III Anesthesia Type: MAC [facility] History I have reviewed the patient's past medical history: Yes Medical History: Reports:: Atrial Fibrillation, Congestive Heart Failure, Coronary Artery Disease, Cerebrovascular Accident, Deep Vein Thrombosis, Gastroesophageal Reflux Disease(GERD), Hyperlipidemia, Hypertension, Lung Disease, Kidney Stones, Renal Insufficiency, Urinary Tract Infection Denies:: Cancer, Diabetes Mellitus Type 1, Diabetes Mellitus Type 2, Internal Pacemaker, MRSA, Seizures *Have you ever received a pneumonia vaccine?: Yes *Have you received a flu vaccine this season?: Yes Other Medical History: Reports: Anemia, Arthritis. Denies: Blood Transfusion Reaction Anesthesia experience/problems:: nac Laterality Cases: Bilateral: Arthroscopy Knee Other Surgeries: Yes: Appendectomy, Cardiac Catheterization, Cardiac Surgery, Coronary Stent, Skin Cancer Excision, Other (blood clot in leg in the past). No: Pacemaker Amputation: No Fractures: No - *Social History Smoking Status: Former smoker Tobacco Type: cigarettes # Packs/Day (cigarettes): 1 Alcohol Intake: never Substance Use Type: denies use *Occupational Status:: disabled Housing: assisted living facility Household Members: none *Travel in the last 8 weeks: None Family Hx:: Unable to obtain
--- NOTE | 2020-09-24 08:30 | P.PCN_ITS ---
- Procedure: Date: 09/24/20 Patient Date of :: 1950 Procedure Performed:: Esophagogastroduodenoscopy Indications:: Patient is a 70-year-old male who is a resident of [facility] with a history of atrial fibrillation, congestive heart failure, coronary artery disease, cerebrovascular accident, lower extremity deep vein thrombosis, hypertension, lung disease, renal insufficiency. Patient is on Xarelto. He had an apparent syncopal episode with dizziness. He was therefore transported to [facility] emergency department. He was found to have anemia with a hemoglobin of 5.6. Of note, the patient had a recent admission initially with similar symptoms of dizziness with the additional symptoms of chest pain and shortness of air. He was hospitalized 08/17/2020 until 08/19/2020. He did undergo left heart catheterization and cardiac evaluation during that admission. He was Hemoccult positive. At that time his hemoglobin was 9.7. Consideration was being given for possible outpatient colonoscopy. Patient was admitted. He was transfused 2 units for his hemoglobin of 5.6. He had marginal response with posttransfusion hemoglobin 7.2. Plan was made for upper endoscopy to evaluate for upper GI source. Performing Provider:: Ger Parekh MD Referring Provider:: Samuel Bowden MD Sedation:: MAC sedation Procedure:: Patient was taken to endoscopy procedure room. He was positioned in a lateral decubitus position. Adequate intravenous sedation was achieved. Olympus endoscope was inserted via the oropharynx. Overall esophagus appeared normal. Gastroesophageal junction was encountered at approximately 40 cm from the incisors. Stomach was cannulated and insufflated. There was some foamy fluid which was irrigated and suctioned free. There is no evidence of any recent bleeding. Retroflexion was somewhat difficult but there was no obvious hiatal hernia. There was some mild nonerosive antral gastritis. Pylorus was traversed. Duodenal bulb and duodenal sweep appeared unremarkable. Endoscope was withdrawn. Findings:: Mild antral gastritis No obvious evidence of upper GI bleeding source Recommendations:: Will need colonoscopy at some point Complications:: None immediately apparent Estimated blood obtained (mL): 0
--- NOTE | 2020-09-24 08:50 | PC.NURSE ---
Received report from Dennis JamesRN @ [id number]
--- NOTE | 2020-09-24 13:38 | HMH.HP ---
*Admission Date: 09/23/20 *Chief complaint: gi bleed *History of present illness: 70-year-old male who is a resident of [facility] with a history of atrial fibrillation, congestive heart failure, coronary artery disease, cerebrovascular accident, lower extremity deep vein thrombosis, hypertension, lung disease, renal insufficiency. Presented to ed with c/o dizziness,chest pain and shortness of air. Patient is on Xarelto. He was found to have anemia with a hemoglobin of 5.6. Patient admitted for anemia and surgery consult. [facility] History I have reviewed the patient's past medical history: Yes Medical History: Reports:: Atrial Fibrillation, Congestive Heart Failure, Coronary Artery Disease, Cerebrovascular Accident, Deep Vein Thrombosis, Gastroesophageal Reflux Disease(GERD), Hyperlipidemia, Hypertension, Lung Disease, Kidney Stones, Renal Insufficiency, Urinary Tract Infection Denies:: Cancer, Diabetes Mellitus Type 1, Diabetes Mellitus Type 2, Internal Pacemaker, MRSA, Seizures *Have you ever received a pneumonia vaccine?: Yes *Have you received a flu vaccine this season?: Yes Other Medical History: Reports: Anemia, Arthritis. Denies: Blood Transfusion Reaction Anesthesia experience/problems:: nac Laterality Cases: Bilateral: Arthroscopy Knee Other Surgeries: Yes: No Previous Surgery, Appendectomy, Cardiac Catheterization, Cardiac Surgery, Coronary Stent, Skin Cancer Excision, Other (blood clot in leg in the past). No: Pacemaker Amputation: No Fractures: No - *Social History Smoking Status: Former smoker Tobacco Type: cigarettes # Packs/Day (cigarettes): 1 Alcohol Intake: never Substance Use Type: denies use *Occupational Status:: disabled Housing: assisted living facility Household Members: none *Travel in the last 8 weeks: None Family Hx:: Unable to obtain Review of Systems - Review of Systems Review of systems:: pertinent systems reviewed and negative unless documented below - Constitutional Denies body ache(s) - Eyes Reports other, Denies blurry vision - ENT Denies abnormal hearing - *Cardiovascular Reports chest pain - *Respiratory Reports shortness of breath, Denies change in phlegm color - *Gastrointestinal Reports abdominal pain, Denies belching - *Genitourinary Denies urinary frequency - *Musculoskeletal Denies joint pain - Integumentary/Breasts Denies hair loss, Denies sores - *Neurologic Reports dizziness, Denies abnormal hearing - Psychiatric Denies abnormal sleep pattern - Endocrine Denies excessive sweating - Hematologic/Lymphatic Denies easy bruising - Allergic/Immunologic Denies itchy eyes Meds Home Medications Medication Instructions Recorded Confirmed Type OXcarbazepine [Trileptal 300mg 300 mg PO BID 08/20/18 09/24/20 History tablet] Aspirin [Aspirin 81mg chewable 81 mg PO DAILY 04/08/19 09/24/20 History tab] Pantoprazole Sodium [Protonix 40mg 40 mg PO DAILY 04/08/19 09/24/20 History tablet] Simvastatin 20 mg PO HS 04/08/19 09/24/20 History tramadol 50 mg tablet 50 mg PO Q6HP PRN #120 tab 05/09/20 09/24/20 Rx amlodipine 10 mg tablet 10 mg PO BID #60 tab 06/04/20 09/24/20 Rx Tamsulosin HCl [Flomax 0.4mg 0.4 mg PO HS 07/08/20 09/24/20 History capsule] Isosorbide Mononitrate [Isosorbide 30 mg PO DAILY 07/09/20 09/24/20 History Mononitrate ER] Mag Carb/Aluminum Hydrox/Algin 30 ml PO Q4HP PRN 07/09/20 09/23/20 History [Acid Gone Antacid Liquid] Metoprolol Succinate [Metoprolol 200 mg PO DAILY 07/09/20 09/24/20 History Succinate 200mg Tablet*] timoloL maleate [Timolol Maleate] 1 drp EYE-BOTH DAILY 07/09/20 09/24/20 History Loperamide HCl [Loperamide] 2 mg PO Q6HP PRN 08/18/20 09/23/20 History ondansetron HCL [Ondansetron 4mg 4 mg PO Q4HP PRN 08/18/20 09/23/20 History tab*] Rivaroxaban [Xarelto 20mg Tablet*] 20 mg PO DAILY 09/23/20 09/24/20 History Allergies Allergy/AdvReac Type Severity Reaction Status Date / Time No Known
--- NOTE | 2020-09-24 19:14 | PC.NURSE ---
1st unit of PRBC's currently infusing, tolerating well. No complaints of SOA. Remains on room air, sats in low 90's. HR regular, sinus laureano on monitor. Voiding per urinal. No BM this shift. Spoke to Dr. Parekh, plans to proceed w/ colonoscopy by Dr. Mckeon. Pt NPO after midnight. Go Lytely order per MD orders. No complaints voiced.
[2020-09-24 23:51] LABS: Hematocrit 27.2 % (42.0-52.0)
[2020-09-25] VITALS (12 sets, daily range): BP systolic 93–160; BP diastolic 46–87; PULSE 50–74; RESP 16–18; TEMP 36.4–37.4; O2SAT 92–100; BMI 28.6
[2020-09-25 00:30] LABS: Hemoglobin 9.1 g/dL (14.1-18.0)
--- NOTE | 2020-09-25 03:38 | PC.NURSE ---
A&OX4. TOLERATING RA WELL. PT HAS NOT C/O PAIN THUS FAR. NO EVIDENCE OF BLEEDING NOTED. RECEIVED 2 UNITS PRBC, TOLERATED WELL. PT HAS FINISHED GOLYTELY SOLUTION, TOLERATED WELL. PT CONTINUES TO HAVE LOOSE BMS AT THIS TIME. BMS ARE BECOMING MORE CLEAR. NPO SINCE 0000, TOLERATING WELL. NSR ON TELE. RESTING IN BED T/O MAJORITY OF SHIFT, VSS WILL CONTINUE TO MONITOR.
[2020-09-25 06:28] LABS: Basophils % 0.5 % (0.1-2.0); Eosinophils # 0.2 K/mm3 (0.0-0.4); Eosinophils % 2.7 % (0.1-12.0); Hematocrit 26.9 % (42.0-52.0); Lymphocytes # 1.3 K/mm3 (0.7-4.5); Lymphocytes % 14.3 % (10-50); Mean Corpuscular HGB Conc 33.4 g/dL (31.8-35.4); Mean Corpuscular Hemoglobin 27.3 pg (27.0-31.2); Mean Corpuscular Volume 81.6 fl (80-94); Mean Platelet Volume 7.5 fl (7.4-10.4); Monocytes # 0.6 K/mm3 (0.1-1.0); Monocytes % 6.3 % (1.7-9.3); Neutrophils # 6.9 K/mm3 (1.8-7.8); Neutrophils % 76.2 % (37.0-80.0); Platelet Count 261 K/mm3 (142-424); Red Blood Count 3.29 M/mm3 (4.60-6.20); Red Cell Distribution Width 16.1 % (11.5-17.5)
[2020-09-25 06:37] LABS: Anion Gap 14.5 mEq/L (5-15); Blood Urea Nitrogen 18 mg/dl (9-20); Calcium 8.2 mg/dl (8.4-10.2); Carbon Dioxide 23 mmol/L (22.0-30.0); Chloride 110 mmol/L (98-107); Creatinine Clearance Estimated 67 mL/min (50-200); Estimated Glomerular Filt Rate 46 ml/min (>60); GFR (African American) 56 ML/MIN (>60); Glucose 81 mg/dl (74-100); Potassium 3.5 mmoL/L (3.5-5.1); Sodium 144 mmol/L (136-145)
--- NOTE | 2020-09-25 07:04 | HMH.GSPN ---
Subjective Patient reports: no new complaints Progress Note: A&P (1) Anemia Status: Acute (2) Occult blood positive stool Status: Acute Assessment and plan: Esophagogastroduodenoscopy yesterday revealed no significant abnormality. He is scheduled for colonoscopy later today (3) Abdominal pain Status: Acute (4) CVA (cerebral vascular accident) Status: Acute (5) Chest pain Status: Acute (6) Near syncope Status: Acute (7) Pulmonary HTN Status: Acute (8) A-fib Status: Chronic (9) CAD (coronary artery disease) Status: Chronic (10) Obesity (BMI 30.0-34.9) Status: Chronic (11) Visual impairment Status: Chronic Exam Vital signs and Labs for Last 24 Hours: Temp Pulse Resp BP Pulse Ox 99.0 F 69 18 160/75 H 96 09/25/20 04:00 09/25/20 04:00 09/25/20 04:00 09/25/20 04:00 09/25/20 04:00 Laboratory Results - last 24 hr 09/23/20 15:26: Blood Type AB Positive, Antibody Screen Negative, Crossmatch (AHG) See Detail 09/24/20 06:27: WBC 8.3, RBC 2.91 L D, Hgb 7.4 L*, Hct 24.5 L, MCV 84.2, MCH 25.4 L, MCHC 30.2 L, RDW 14.7, Plt Count 287, MPV 7.2 L, Neut % (Auto) 74.8, Lymph % (Auto) 14.7, [place] % (Auto) 7.6, Eos % (Auto) 2.4, Baso % (Auto) 0.6, Neut # (Auto) 6.2, Lymph # (Auto) 1.2, [place] # (Auto) 0.6, Eos # (Auto) 0.2, Baso # (Auto) 0.1 09/24/20 23:40: Hgb 9.1 L D, Hct 27.2 L 09/25/20 05:58: WBC 9.0, RBC 3.29 L, Hgb 9.0 L, Hct 26.9 L, MCV 81.6, MCH 27.3, MCHC 33.4, RDW 16.1, Plt Count 261, MPV 7.5, Neut % (Auto) 76.2, Lymph % (Auto) 14.3, [place] % (Auto) 6.3, Eos % (Auto) 2.7, Baso % (Auto) 0.5, Neut # (Auto) 6.9, Lymph # (Auto) 1.3, [place] # (Auto) 0.6, Eos # (Auto) 0.2, Baso # (Auto) 0.0 09/25/20 05:58: Sodium 144, Potassium 3.5, Chloride 110 H, Carbon Dioxide 23, Anion Gap 14.5, BUN 18 D, Creatinine 1.50 H D, Estimated Creat Clear 67, Estimated GFR 46 L, Est GFR ( Amer) 56 L D, Glucose 81, Calcium 8.2 L I & O for Last 24 hours: Intake & Output 09/22/20 09/23/20 09/24/20 09/25/20 11:59 11:59 11:59 11:59 Intake Total 655 / 655 1153 / 1153 Output Total 1775 / 1775 1125 / 1125 Balance -1120 / -1120 Weight 232 lb 9 oz 235 lb 4 oz - Constitutional no acute distress - *Routine Respiratory Exam Absent: respiratory distress - *Routine Cardiovascular Exam Comments: Regular rate
--- NOTE | 2020-09-25 10:56 | PC.NURSE ---
Pt down to OR at this time
--- NOTE | 2020-09-25 12:35 | HMH.SCOPE ---
- Procedure: Date: 09/25/20 Patient Date of :: 1950 Procedure Performed:: Colonoscopy with polypectomy and biopsy Indications:: Anemia Hemoccult positive stool Performing Provider:: Scar Mckeon MD Referring Provider:: Dr. Bowden Sedation:: Monitored anesthesia care Procedure:: After informed consent was obtained the patient was taken to the endoscopy suite. Sedation ensued after the patient was transferred to the left lateral decubitus position. Pulse, blood pressure, and oxygen saturation were monitored throughout the procedure. Digital rectal exam revealed no significant abnormality. The colonoscope was placed in position. The entire colon was evaluated. The colonoscope was carefully removed and the patient was transferred to recovery in stable condition. Please see findings and specimens below for detail. Findings:: Bowel prep moderate Scattered diverticulosis (worse in sigmoid) Tortuous colon Patulous sigmoid Polyps (see specimens) Friable cecal mass Specimens:: Multiple biopsies of friable cecal mass Polyp at 45 cm (snare) Sessile lobulated complex polyp at 20 cm (snare) Recommendations:: Follow-up pathology Will at least require right colectomy (pending pathologic evaluation of complex polyp at 20 cm) Preoperative cardiology clearance May require surgical evaluation and management at tertiary care given comorbid medical conditions (to be determined by primary care provider) Complications:: No immediate Estimated blood obtained (mL): 1
--- NOTE | 2020-09-25 13:44 | HMH.CNCARD ---
History of Present Illness Consult date: 09/25/20 Requesting physician: Eder Ray Consult reason: pre-op evaluation Chief complaint: Anemia, GI bleed, colon mass Additional Medical History:: 1. Blind 2. HTN A. Echo, 11/2018, mild biatrial enlargement, normal LV size, EF 55% with no WMA. Mild concentric LVH. Grade 1 diastolic dysfunction. Mild RVE with normal contractility. Mild MR, TR with RVSP of 50 mmHg consistent with moderate pulmonary hypertension. B. Echocardiogram, 08/2020, moderate left atrial enlargement, normal LV size with EF 55% with no wall motion abnormality. Mild LAE and RV enlargement with normal contractility. No significant valvular heart disease. Grade 1 diastolic dysfunction. C. Renal artery duplex suggesting less than 60% stenosis. Multiple bilateral renal cysts noted. D. Diastolic congestive heart failure 3. Hyperlipidemia, on statin 4. CKD, stage II A. 09/2020, creatinine, 1.5, GFR 56, creatinine clearance 67 5. ERIC induced cough, 03/2019 6. History of DVT 7. CAD with remote history of LAD stent A. [facility], 06/2017, proximal LAD stent, widely patent with 30% stenosis distal to the stent followed by mid vessel 40 to 50% stenosis. RCA and circumflex codominant with 20% luminal irregularities. EF 60% with LVEDP of 20 mmHg. B. [facility], 12/2018, due to abnormal stress test. LAD stent patent with 30 to 40% distal stenosis. Codominant RCA and circumflex have 10 to 30% stenoses. EF 65% with LVEDP of 30 mmHg. C. [facility], 08/2020, left main normal, LAD with proximal 30% stenosis followed by a proximal to mid vessel stent which is widely patent and free of in-stent restenosis with excellent proximal distal transitioning. A long 30 to 40% calcified smooth stenosis thereafter is noted. The circumflex artery is a large codominant vessel with proximal and mid vessel 30% stenoses. JIMENEZ ventriculogram reveals 45 to 50%, LVEDP 15 to 20 mmHg. 8. Newly diagnosed A. fibrillation with CVR, EKG, 10/23/2019 A. CHADS VASC score of 3 (Age, history of diastolic CHF, HTN) B. A/C with Xarelto 9. 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 of the brain showing no acute changes B. Carotid ultrasound, less than 20% stenosis bilaterally 10. GI bleed with Hgb 5.6, 09/2020 A. Colonoscopy, 09/25/2020, cecal mass highly suspicious for cancer B. EGD, 06/2020, somewhat tortuous esophagus, minimal antral inflammation, high fundic arc, sliding hiatal hernia History of present illness: 70-year-old male who is a resident of [facility] with a history of atrial fibrillation, congestive heart failure, coronary artery disease, cerebrovascular accident, lower extremity deep vein thrombosis, hypertension, lung disease, renal insufficiency. Presented to ed with c/o dizziness,chest pain and shortness of air. Patient is on Xarelto. He was found to have anemia with a hemoglobin of 5.6. Patient admitted for anemia and surgery consult. The above per Dr. Bowden Colonoscopy today revealed evidence of a cecal mass suspicious for colon cancer. Cardiology consulted for preop evaluation. Patient denies any chest pain, pressure or tightness. Did discuss the results of his colonoscopy with him and the need for surgical intervention. EKGs this admission are sinus rhythm with chronic nonspecific ST segment changes. [facility] History Medical History: Reports:: Atrial Fibrillation, Congestive Heart Failure, Coronary Artery Disease, Cerebrovascular Accident, Deep Vein Thrombosis, Gastroesophageal Reflux Disease(GERD), Hyperlipidemia, Hypertension, Lung Disease, Kidney Stones, Renal Insufficiency, Urinary Tract Infection Denies:: Cancer, Diabetes Mellitus Type 1, Diabetes Mellitus Type 2, Internal Pacemaker, MRSA, Seizures *Have you ever received a pneumonia vaccine?: Yes *Have you received a flu vaccine this season?: Yes Other Medical History: Reports: Anemia, Arthritis. Denies: Blood Transfus
--- NOTE | 2020-09-25 13:51 | DIET.NUTRFU ---
Addendum entered by Effie Nazario 10/01/20 13:03: Pt is s/p colectomy, has not passed gas and c/o nausea. Weight stable, nutrition related labs wnl. Continues NPO status pending return of bowel function, continuing to monitor. Addendum entered by Effie Nazario 09/29/20 13:38: Pt consumed 100% of liquid diet over the weekend. Watery diarrhea continues but with continued improvement. Pt s/p R hemicolectomy today, recommend slow diet advancement to soft/low fiber diet as tolerated, will monitor and provide diet edu t/o stay. Original Note: Pt has consumed about 50-75% of liquid meals. He continues with diarrhea but with improvement. S/p Colonoscopy today with multiple findings. Pt is blind and does well feeding self, but does require assistance tray set up/menu selection.
--- NOTE | 2020-09-25 16:51 | PC.ADMIT ---
[id number] Admission Note: The patient,Edi Toussaint,70 y/o, was given written information regarding hospital policies, unit procedures and contact persons. Patient's smoking status: Former smoker. Vital Signs - 8 hr 09/25/20 12:28 09/25/20 12:38 09/25/20 12:45 Temperature 98.0 F 97.6 F Pulse Rate [Right] 74 72 64 Respiratory Rate 16 16 16 Blood Pressure [Right Arm] 93/50 L 107/60 L 113/46 L 02 Sat by Pulse Oximetry 92 L 96 96 09/25/20 13:00 09/25/20 13:15 Temperature 97.6 F 97.6 F Pulse Rate [Right] 63 59 L Respiratory Rate 16 16 Blood Pressure [Right Arm] 154/80 H 155/87 H 02 Sat by Pulse Oximetry 100 93 L
--- NOTE | 2020-09-25 16:52 | PC.NURSE ---
Pt A+O x4. Pt has tolerated room air well t/o shift. Pt has had no c/o pain this shift. Pt is able to use urinal and bedside commode with standby assistance. Pt has been pleasant t/o shift. Pt currently sitting up eating his dinner. Call light in reach. Will continue to monitor.
--- NOTE | 2020-09-25 18:00 | HMH.ACPN2 ---
Internal Medicine - PN: Subj *Date: 09/25/20 *Time: 19:55 Interval history: 70-year-old man resting in bed quietly with eyes closed, awakens to verbal stimuli easily. Reports he does feel better denies any chest pain or shortness of breath during night and admits abdomen is only slightly tender. EGD yesterday revealed: Mild antral gastritis No obvious evidence of upper GI bleeding source To have colonoscopy today Exam Vital signs and Labs for Last 24 Hours: Temp Pulse Resp BP Pulse Ox 97.6 F 59 L 16 155/87 H 93 L 09/25/20 13:15 09/25/20 13:15 09/25/20 13:15 09/25/20 13:15 09/25/20 13:15 Laboratory Results - last 24 hr 09/23/20 15:26: Blood Type AB Positive, Antibody Screen Negative, Crossmatch (AHG) See Detail 09/24/20 23:40: Hgb 9.1 L D, Hct 27.2 L 09/25/20 05:58: WBC 9.0, RBC 3.29 L, Hgb 9.0 L, Hct 26.9 L, MCV 81.6, MCH 27.3, MCHC 33.4, RDW 16.1, Plt Count 261, MPV 7.5, Neut % (Auto) 76.2, Lymph % (Auto) 14.3, [place] % (Auto) 6.3, Eos % (Auto) 2.7, Baso % (Auto) 0.5, Neut # (Auto) 6.9, Lymph # (Auto) 1.3, [place] # (Auto) 0.6, Eos # (Auto) 0.2, Baso # (Auto) 0.0 09/25/20 05:58: Sodium 144, Potassium 3.5, Chloride 110 H, Carbon Dioxide 23, Anion Gap 14.5, BUN 18 D, Creatinine 1.50 H D, Estimated Creat Clear 67, Estimated GFR 46 L, Est GFR ( Amer) 56 L D, Glucose 81, Calcium 8.2 L I & O for Last 24 hours: Intake & Output 09/22/20 09/23/20 09/24/20 09/25/20 23:59 23:59 23:59 23:59 Intake Total 480 / 480 775 / 775 913 / 913 Output Total 850 / 1225 2049 Balance -370 / -745 -1275 / -1275 913 / 913 Weight 238 lb 1 oz 231 lb 7.766 oz 235 lb 4 oz - Constitutional no acute distress - *Routine HEENT Exam Head: Present: normocephalic Eye: Present: EOMI ENT: Present: mucous membranes moist - *Routine Neck Exam Present: trachea midline. Absent: tracheal deviation - *Routine Respiratory Exam Present: CTA bilaterally. Absent: accessory muscle use - *Routine Cardiovascular Exam Present: RRR - *Routine Abdominal Exam Present: soft, normoactive bowel sounds. Absent: tenderness, firm - *Routine Extremities Exam Present: full ROM, pulses intact. Absent: cyanosis, clubbing - *Routine Skin Exam Present: intact, dry, warm. Absent: cyanosis, erythema - *Routine Neurological Exam Present: alert. Absent: motor deficit, pronator drift - Routine Psychiatric Exam Present: normal affect. Absent: auditory hallucinations, visual hallucinations Assessment and Plan (1) Anemia Status: Acute Qualifiers: Anemia type: unspecified type Qualified Code(s): D64.9 - Anemia, unspecified Category: Medical Code(s): D64.9 - Anemia, unspecified (2) Occult blood positive stool Status: Acute Category: Medical Code(s): R19.5 - Other fecal abnormalities (3) Abdominal pain Status: Acute Qualifiers: Abdominal location: epigastric Qualified Code(s): R10.13 - Epigastric pain Category: Medical Code(s): R10.9 - Unspecified abdominal pain (4) CVA (cerebral vascular accident) Status: Acute Qualifiers: CVA mechanism: unspecified Qualified Code(s): I63.9 - Cerebral infarction, unspecified Category: Medical Code(s): I63.9 - Cerebral infarction, unspecified (5) Chest pain Status: Acute Qualifiers: Chest pain type: precordial pain Qualified Code(s): R07.2 - Precordial pain Category: Medical Code(s): R07.9 - Chest pain, unspecified (6) Near syncope Status: Acute Category: Medical Code(s): R55 - Syncope and collapse (7) Pulmonary HTN Status: Acute Category: Medical Code(s): I27.20 - Pulmonary hypertension, unspecified (8) A-fib Status: Chronic Qualifiers: Atrial fibrillation type: paroxysmal Qualified Code(s): I48.0 - Paroxysmal atrial fibrillation Category: Medical Code(s): I48.91 - Unspecified atrial fibrillation (9) CAD (coronary artery disease) Status: Chronic Qualifiers: Coronary Di
--- NOTE | 2020-09-25 20:29 | PC.NURSE ---
trash pulled and snack passed at this time
[2020-09-26] VITALS (20 sets, daily range): BP systolic 138–174; BP diastolic 68–87; PULSE 56–70; RESP 16–20; TEMP 36.6–37.3; O2SAT 93–99; BMI 28.1
--- NOTE | 2020-09-26 05:03 | PC.NURSE ---
shift summary pt is alert and oriented X4. lung sounds are clear with sats maintained 90% or above on room air. pt has rested comfortably during the shift. pt is able to void per urinal at bedside urine is clear and yellow in color.pt has had no complaints. pt denies any pain, nausea, vomiting, or diarrhea. no acute changes will continue to monitor.
[2020-09-26 06:00] LABS: Basophils % 0.5 % (0.1-2.0); Eosinophils # 0.3 K/mm3 (0.0-0.4); Eosinophils % 3.5 % (0.1-12.0); Hematocrit 26.3 % (42.0-52.0); Hemoglobin 8.7 g/dL (14.1-18.0); Lymphocytes # 1.4 K/mm3 (0.7-4.5); Lymphocytes % 19.4 % (10-50); Mean Corpuscular Hemoglobin 27.1 pg (27.0-31.2); Mean Corpuscular Volume 82.3 fl (80-94); Mean Platelet Volume 8.1 fl (7.4-10.4); Monocytes # 0.5 K/mm3 (0.1-1.0); Monocytes % 6.5 % (1.7-9.3); Neutrophils # 5.1 K/mm3 (1.8-7.8); Neutrophils % 70.1 % (37.0-80.0); Platelet Count 274 K/mm3 (142-424); Red Blood Count 3.19 M/mm3 (4.60-6.20); Red Cell Distribution Width 16.4 % (11.5-17.5); White Blood Count 7.3 K/mm3 (4.8-10.8)
[2020-09-26 06:18] LABS: Chloride 111 mmol/L (98-107); Potassium 3.5 mmoL/L (3.5-5.1); Sodium 142 mmol/L (136-145)
[2020-09-26 06:21] LABS: Anion Gap 10.5 mEq/L (5-15); Blood Urea Nitrogen 17 mg/dl (9-20); Carbon Dioxide 24 mmol/L (22.0-30.0); Creatinine Clearance Estimated 62 mL/min (50-200); Estimated Glomerular Filt Rate 43 ml/min (>60); GFR (African American) 52 ML/MIN (>60)
[2020-09-26 06:22] LABS: Calcium 8.5 mg/dl (8.4-10.2); Glucose 80 mg/dl (74-100)
--- NOTE | 2020-09-26 06:42 | HMH.GSPN ---
Subjective Narrative: Is currently resting. Per nursing staff he had a fine night . Progress Note: A&P (1) Anemia Status: Acute (2) Occult blood positive stool Status: Acute (3) Abdominal pain Status: Acute (4) CVA (cerebral vascular accident) Status: Acute (5) Chest pain Status: Acute (6) Near syncope Status: Acute (7) Pulmonary HTN Status: Acute (8) A-fib Status: Chronic (9) CAD (coronary artery disease) Status: Chronic (10) Obesity (BMI 30.0-34.9) Status: Chronic (11) Visual impairment Status: Chronic (12) Cecum mass Status: Acute Assessment and plan: Most likely adenocarcinoma. Await pathologic evaluation of cecal mass biopsies, as well as, pathology with regard to complex sigmoid polyp. Plan for right colectomy if sigmoid polyp benign (total colectomy otherwise). He has been cleared by cardiology to undergo surgical intervention. Okay from surgical standpoint for discharge with outpatient follow-up next week. Exam Vital signs and Labs for Last 24 Hours: Temp Pulse Resp BP Pulse Ox 99.2 F 68 18 144/76 H 93 L 09/26/20 05:00 09/26/20 05:00 09/26/20 05:00 09/26/20 05:00 09/26/20 05:00 Laboratory Results - last 24 hr 09/26/20 05:17: WBC 7.3, RBC 3.19 L, Hgb 8.7 L, Hct 26.3 L, MCV 82.3, MCH 27.1, MCHC 33.0, RDW 16.4, Plt Count 274, MPV 8.1, Neut % (Auto) 70.1, Lymph % (Auto) 19.4, [place] % (Auto) 6.5, Eos % (Auto) 3.5, Baso % (Auto) 0.5, Neut # (Auto) 5.1, Lymph # (Auto) 1.4, [place] # (Auto) 0.5, Eos # (Auto) 0.3, Baso # (Auto) 0.0 09/26/20 05:17: Sodium 142, Potassium 3.5, Chloride 111 H, Carbon Dioxide 24, Anion Gap 10.5, BUN 17, Creatinine 1.60 H, Estimated Creat Clear 62, Estimated GFR 43 L, Est GFR ( Amer) 52 L, Glucose 80, Calcium 8.5 I & O for Last 24 hours: Intake & Output 09/23/20 09/24/20 09/25/20 09/26/20 11:59 11:59 11:59 11:59 Intake Total 655 / 655 1153 / 1153 480 / 480 Output Total 1775 / 1775 1125 / 1125 Balance -1120 / -1120 480 / 480 Weight 232 lb 9 oz 235 lb 4 oz 231 lb 0.2 oz - Constitutional no acute distress - *Routine Respiratory Exam Absent: respiratory distress - *Routine Cardiovascular Exam Comments: Regular rate
--- NOTE | 2020-09-26 08:47 | HMH.OTEV ---
OT Inpatient Evaluation Rehab OT IP Evaluation Start: 09/26/20 08:13 Freq: ONCE Status: Complete Protocol: Document 09/26/20 08:42 [facility] (Rec: 09/26/20 08:47 [facility] [id number]) Rehab OT IP Assessment Subjective History Pt oriented x 3 on arrival. Pt agreeable to engage in therapy evaluation. Pt was admitted via ED on 09/23/20 due to GI bleed. Pt has a past medical history of Atrial Fibrillation, Congestive Heart Failure, Coronary Artery Disease, Cerebrovascular Accident, Deep Vein Thrombosis , Gastroesophageal Reflux Disease(GERD), Hyperlipidemia, Hypertension, Lung Disease, Kidney Stones, Renal Insufficiency, Urinary Tract Infection. Pt resides at [facility]. Pt claims he is independent with all ADLs. Staff does assist with cooking and cleaning. He uses a walking (vision) stick during ambulation due to visual impairments. Pt polite and cooperative. Subjective I just started feeling really bad. Objective Patient Orientation Person,Place,Birthday Upper Extremity Gross ROM WFL Bed Mobility bed mobility-scooting,bed mobility - supine/sit,bed mobility - rolling Assist Level Supervision/Stand by Transfer Training Sit/Stand Transfer Assist Level Supervision/Stand by Chair Transfer Ability Supervision/Stand by Chair Transfer Technique Sit to/from Ambulatory Chair Transfer Assistive Devices None Lower Body Dressing Ability Standby Assistance Rehab OT IP prob,goals,plan Problems Date of Evaluation: 09/26/20 Rehab Potential Rehab Potential Innapropriate for Skilled Therapy Discharge Plan OT Discharge Plan At this time pt appears to be at his baseline functionally; no further tx required at this time. Pt can return to [facility] once medically stable per physician. If pt appears
--- NOTE | 2020-09-26 09:02 | HMH.PTEV ---
Physical Therapy Evaluation Rehab PT IP Evaluation Start: 09/26/20 08:13 Freq: ONCE Status: Active Protocol: Document 09/26/20 09:00 [facility] (Rec: 09/26/20 09:02 [email or web address] [id number]) Subjective/History History History 70 yoaam adm to [facility] with anemia. He resides at [facility] and is independent with all mobility at baseline. Subjective Subjective POt reports mild SOA with exertion, otherwise feels very good today. Rehab PT IP Eval Objective Appearance Patient Behavior Appropriate Patient Orientation Person,Place,Time Difficulty following instructions none Speech Pattern Clear Ambulation Patient Able to Ambulate Yes Ambulation Observation IP General Gait Pattern Observation No Deviations/Normal Ambulation Distance (feet) 20 Ambulation Assistive Device None Ambulation Ability Supervision/Stand by Balance Ability to Arise Able, w/o using arms Sitting Balance Steady, safe Standing Balance Narrow stance w/o support Dynamic Sitting Balance Ability Good Dynamic Standing Balance Ability Good Transfers Bed Transfer Ability Supervision/Stand by Chair Transfer Ability Supervision/Stand by Sit to Stand Bed Transfer Ability Supervision/Stand by Sit to Stand Chair Transfer Ability Supervision/Stand by ROM All Extremities PT ROM Status WFL MMT All Extremities PT MMT WFL Rehab PT IP prob,goals,plan Problems Date of Evaluation: 09/26/20 Discharge Plan PT Discharge Plan Pt presents at baseline for all mobility at this time, he is appropriate to return to prior living situation once medically stable. G -code Required No Eval Complexity Eval Charge Codes 31726 - Moderate Complexity PHYSICIAN CERTIFICATION: I certify the specified therapy services for Edi Toussaint are required, authorized, and reviewed every 30 days.
--- NOTE | 2020-09-26 13:35 | HMH.ACPN2 ---
Internal Medicine - PN: Subj *Date: 09/26/20 *Time: 08:15 Interval history: pt sitting up in bed states no c/o. Exam Vital signs and Labs for Last 24 Hours: Temp Pulse Resp BP Pulse Ox 97.9 F 70 18 157/75 H 97 09/26/20 07:32 09/26/20 08:00 09/26/20 07:32 09/26/20 07:32 09/26/20 07:32 Laboratory Results - last 24 hr 09/23/20 15:26: Blood Type AB Positive, Antibody Screen Negative, Crossmatch (AHG) See Detail 09/26/20 05:17: WBC 7.3, RBC 3.19 L, Hgb 8.7 L, Hct 26.3 L, MCV 82.3, MCH 27.1, MCHC 33.0, RDW 16.4, Plt Count 274, MPV 8.1, Neut % (Auto) 70.1, Lymph % (Auto) 19.4, [place] % (Auto) 6.5, Eos % (Auto) 3.5, Baso % (Auto) 0.5, Neut # (Auto) 5.1, Lymph # (Auto) 1.4, [place] # (Auto) 0.5, Eos # (Auto) 0.3, Baso # (Auto) 0.0 09/26/20 05:17: Sodium 142, Potassium 3.5, Chloride 111 H, Carbon Dioxide 24, Anion Gap 10.5, BUN 17, Creatinine 1.60 H, Estimated Creat Clear 62, Estimated GFR 43 L, Est GFR ( Amer) 52 L, Glucose 80, Calcium 8.5 I & O for Last 24 hours: Intake & Output 09/24/20 09/25/20 09/26/20 09/27/20 11:59 11:59 11:59 11:59 Intake Total 655 / 655 1153 / 1153 960 / 960 Output Total 1775 / 1775 1125 / 1125 950 / 950 Balance -1120 / -1120 Weight 232 lb 9 oz 235 lb 4 oz 231 lb 0.2 oz - Constitutional no acute distress - *Routine HEENT Exam Head: Present: normocephalic Eye: Present: other ENT: Present: mucous membranes moist - *Routine Neck Exam Present: supple. Absent: lymphadenopathy - *Routine Respiratory Exam Present: CTA bilaterally - *Routine Cardiovascular Exam Present: RRR - *Routine Abdominal Exam Present: soft, normoactive bowel sounds, tenderness - *Routine Extremities Exam Absent: cyanosis, clubbing, edema - *Routine Skin Exam Present: warm. Absent: rash - *Routine Neurological Exam Present: alert, oriented X3 - Routine Psychiatric Exam Present: normal affect Assessment and Plan (1) Anemia Status: Acute Qualifiers: Anemia type: unspecified type Qualified Code(s): D64.9 - Anemia, unspecified Category: Medical Code(s): D64.9 - Anemia, unspecified (2) Occult blood positive stool Status: Acute Category: Medical Code(s): R19.5 - Other fecal abnormalities (3) Abdominal pain Status: Acute Qualifiers: Abdominal location: epigastric Qualified Code(s): R10.13 - Epigastric pain Category: Medical Code(s): R10.9 - Unspecified abdominal pain (4) CVA (cerebral vascular accident) Status: Acute Qualifiers: CVA mechanism: unspecified Qualified Code(s): I63.9 - Cerebral infarction, unspecified Category: Medical Code(s): I63.9 - Cerebral infarction, unspecified (5) Chest pain Status: Acute Qualifiers: Chest pain type: precordial pain Qualified Code(s): R07.2 - Precordial pain Category: Medical Code(s): R07.9 - Chest pain, unspecified (6) Near syncope Status: Acute Category: Medical Code(s): R55 - Syncope and collapse (7) Pulmonary HTN Status: Acute Category: Medical Code(s): I27.20 - Pulmonary hypertension, unspecified (8) A-fib Status: Chronic Qualifiers: Atrial fibrillation type: paroxysmal Qualified Code(s): I48.0 - Paroxysmal atrial fibrillation Category: Medical Code(s): I48.91 - Unspecified atrial fibrillation (9) CAD (coronary artery disease) Status: Chronic Qualifiers: Coronary Disease-Associated Artery/Lesion type: unspecified vessel or lesion type [place] vs. transplanted heart: [place] heart Associated angina: with stable angina Qualified Code(s): I25.118 - Atherosclerotic heart disease of [place] coronary artery with other forms of angina pectoris Category: Medical Code(s): I25.10 - Atherosclerotic heart disease of [place] coronary artery without angina pectoris (10) Obesity (BMI 30.0-34.9) Status: Chronic Category: Medical Code(s): E66.9 - Obesity, unspecified (11) Visual impairment Status:
--- NOTE | 2020-09-26 15:48 | CT_ITS ---
PROCEDURE INFORMATION: Exam: CT Abdomen And Pelvis With Contrast Exam date and time: 09/26/2020 3:48 PM Age: 70 years old Clinical indication: Abnormal findings; Mass, lump, or swelling; Pelvic region; Not specified; Patient HX: ? Cecal mass TECHNIQUE: Imaging protocol: Computed tomography of the abdomen and pelvis with contrast. Radiation optimization: All CT scans at this facility use at least one of these dose optimization techniques: automated exposure control; mA and/or kV adjustment per patient size (includes targeted exams where dose is matched to clinical indication); or iterative reconstruction. Contrast material: ISOVUE 370; Contrast volume: 75 ml; Contrast route: IV; COMPARISON: CT ABDOMEN PELVIS WO CON 09/23/2020 3:21 PM FINDINGS: Lungs: There is scarring at the bilateral lung bases, with bleb formation in the posterolateral portion of the left lower lobe. Dependent atelectasis. Small left pleural effusion. Heart: Cardiomegaly. Liver: Numerous low-attenuation lesions within the liver measure up to 1.1 cm in size are unchanged compared to the recent prior study of 09/23/2020. Gallbladder and bile ducts: No gallbladder wall thickening. No radio-opaque stones. No common bile duct dilation. Pancreas: Khtu-rj-fupqwytj fatty atrophy of the pancreas. Spleen: Normal. No splenomegaly. Adrenal glands: Unremarkable. Kidneys and ureters: Bilateral renal calculi measuring up to 1 cm in size. There are numerous bilateral renal cysts. A few additional subcentimeter low-attenuation lesions are too small for definitive evaluation, but statistically most likely also benign cysts. No hydronephrosis. There is mild asymmetric urothelial thickening/hyperenhancement in the left renal pelvis. Stomach and bowel: Small hiatal hernia. Suggested mild diffuse gastric wall thickening, suspicious for gastritis. No small bowel obstruction. Distal colonic diverticula, without evidence of acute diverticulitis. Appendix: Normal appendix. Intraperitoneal space: No pneumoperitoneum. No ascites. Vasculature: Scattered atherosclerotic plaque. No abdominal aortic aneurysm. Lymph nodes: Subcentimeter bilateral external iliac and inguinal lymph nodes, likely reactive in nature. Urinary bladder: Bladder is distended with fluid. There is mild irregular bladder wall thickening with some bladder diverticula noted. Reproductive: Marked prostatomegaly, measuring up to 6.4 x 5.6 cm in greatest axial dimensions. Bones/joints: There are unhealed minimally displaced fractures of the right lateral 7th and 8th ribs, favored to be recent. Chronic unilateral right L5 pars defect without significant anterolisthesis. There is mild grade 1 degenerative retrolisthesis of L4 on L5. Mild superior endplate concavities of L1 and L2 due to Schmorl's nodes. Soft tissues: Partially visualized probable gynecomastia, similar to priors, and which may be correlated with clinical evaluation. Small umbilical and bilateral inguinal hernias containing fat. IMPRESSION: 1. Small hiatal hernia. Perceived mild diffuse gastric wall thickening suggesting gastritis. Further evaluation may be performed with endoscopy if clinically appropriate. 2. No hydronephrosis. Bilateral nephrolithiasis and numerous bilateral renal cysts, unchanged compared to 09/23/2020. Mild left renal pelvis urothelial thickening/hyperenhancement, raising the possibility of ureteritis/pyelitis. Correlation with urinalysis is requested. 3. Marked prostatomegaly. Distended bladder with mild diffuse irregular wall thickening and some bladder diverticula, similar to prior exam. This could be related to chronic uri
--- NOTE | 2020-09-26 19:53 | PC.NURSE ---
[place] [facility], then cross match and had to be redrawn. Pt's first unit is infusing at this time. Report given to Dennis Espinoza RN
[2020-09-27] VITALS (20 sets, daily range): BP systolic 135–161; BP diastolic 60–91; PULSE 60–70; RESP 18–20; TEMP 36.4–37.1; O2SAT 95–98; BMI 27.8
--- NOTE | 2020-09-27 03:41 | PC.NURSE ---
shift summary pt is alert and oriented X4. lung sounds are clear with sats maintained 90% or above on room air. pt has rested comfortably during the shift. pt is able to void per urinal at bedside urine is clear and yellow in color.pt received 2 units of blood this shift which the pt tolerated well. pt has had no complaints. pt denies any pain, nausea, vomiting, or diarrhea. no acute changes will continue to monitor.
[2020-09-27 04:28] LABS: Hematocrit 32.6 % (42.0-52.0)
[2020-09-27 04:49] LABS: Hemoglobin 10.4 g/dL (14.1-18.0)
[2020-09-27 07:05] LABS: Basophils % 0.5 % (0.1-2.0); Eosinophils # 0.3 K/mm3 (0.0-0.4); Eosinophils % 3.7 % (0.1-12.0); Hemoglobin 9.9 g/dL (14.1-18.0); Lymphocytes # 1.5 K/mm3 (0.7-4.5); Lymphocytes % 17.7 % (10-50); Mean Corpuscular Hemoglobin 27.7 pg (27.0-31.2); Mean Corpuscular Volume 84.1 fl (80-94); Monocytes # 0.5 K/mm3 (0.1-1.0); Monocytes % 6.3 % (1.7-9.3); Neutrophils # 5.9 K/mm3 (1.8-7.8); Neutrophils % 71.8 % (37.0-80.0); Platelet Count 234 K/mm3 (142-424); Red Blood Count 3.56 M/mm3 (4.60-6.20); Red Cell Distribution Width 16.5 % (11.5-17.5); White Blood Count 8.2 K/mm3 (4.8-10.8)
--- NOTE | 2020-09-27 08:59 | HMH.ACPN2 ---
Internal Medicine - PN: Subj *Date: 09/28/20 *Time: 04:40 Interval history: doing ok - no chest pain and will check h/h Exam Vital signs and Labs for Last 24 Hours: Temp Pulse Resp BP Pulse Ox 98.6 F 64 20 159/78 H 96 09/27/20 04:10 09/27/20 08:00 09/27/20 08:00 09/27/20 08:00 09/27/20 08:00 Laboratory Results - last 24 hr 09/23/20 15:26: Blood Type AB Positive, Antibody Screen Negative, Crossmatch (AHG) See Detail 09/26/20 17:25: Blood Type AB Positive, Antibody Screen Negative, Crossmatch (AHG) See Detail 09/27/20 04:05: Hgb 10.4 L D, Hct 32.6 L 09/27/20 06:40: WBC 8.2, RBC 3.56 L, Hgb 9.9 L, Hct 30.0 L, MCV 84.1, MCH 27.7, MCHC 33.0, RDW 16.5, Plt Count 234, MPV 8.0, Neut % (Auto) 71.8, Lymph % (Auto) 17.7, [place] % (Auto) 6.3, Eos % (Auto) 3.7, Baso % (Auto) 0.5, Neut # (Auto) 5.9, Lymph # (Auto) 1.5, [place] # (Auto) 0.5, Eos # (Auto) 0.3, Baso # (Auto) 0.0 I & O for Last 24 hours: Intake & Output 09/24/20 09/25/20 09/26/20 09/27/20 11:59 11:59 11:59 11:59 Intake Total 655 / 655 1153 / 1153 1320 / 1320 980 / 980 Output Total 1775 / 1775 1125 / 1125 950 / 950 478 / 478 Balance -1120 / -1120 370 / 370 502 / 502 Weight 232 lb 9 oz 235 lb 4 oz 231 lb 0.2 oz 229 lb 0.2 oz - Constitutional no acute distress - *Routine HEENT Exam Head: Present: normocephalic Eye: Present: EOMI, PERRL ENT: Present: mucous membranes dry - *Routine Neck Exam Present: supple - *Routine Respiratory Exam Present: CTA bilaterally - *Routine Cardiovascular Exam Present: RRR - *Routine Abdominal Exam Present: soft - *Routine Extremities Exam Present: pulses intact - *Routine Skin Exam Present: intact - *Routine Neurological Exam Present: alert, CN II-XII intact - Routine Psychiatric Exam Present: normal affect Assessment and Plan (1) Anemia Status: Acute Qualifiers: Anemia type: unspecified type Qualified Code(s): D64.9 - Anemia, unspecified Category: Medical Code(s): D64.9 - Anemia, unspecified (2) Occult blood positive stool Status: Acute Category: Medical Code(s): R19.5 - Other fecal abnormalities (3) Abdominal pain Status: Acute Qualifiers: Abdominal location: epigastric Qualified Code(s): R10.13 - Epigastric pain Category: Medical Code(s): R10.9 - Unspecified abdominal pain (4) CVA (cerebral vascular accident) Status: Acute Qualifiers: CVA mechanism: unspecified Qualified Code(s): I63.9 - Cerebral infarction, unspecified Category: Medical Code(s): I63.9 - Cerebral infarction, unspecified (5) Chest pain Status: Acute Qualifiers: Chest pain type: precordial pain Qualified Code(s): R07.2 - Precordial pain Category: Medical Code(s): R07.9 - Chest pain, unspecified (6) Near syncope Status: Acute Category: Medical Code(s): R55 - Syncope and collapse (7) Pulmonary HTN Status: Acute Category: Medical Code(s): I27.20 - Pulmonary hypertension, unspecified (8) A-fib Status: Chronic Qualifiers: Atrial fibrillation type: paroxysmal Qualified Code(s): I48.0 - Paroxysmal atrial fibrillation Category: Medical Code(s): I48.91 - Unspecified atrial fibrillation (9) CAD (coronary artery disease) Status: Chronic Qualifiers: Coronary Disease-Associated Artery/Lesion type: unspecified vessel or lesion type [place] vs. transplanted heart: [place] heart Associated angina: with stable angina Qualified Code(s): I25.118 - Atherosclerotic heart disease of [place] coronary artery with other forms of angina pectoris Category: Medical Code(s): I25.10 - Atherosclerotic heart disease of [place] coronary artery without angina pectoris (10) Obesity (BMI 30.0-34.9) Status: Chronic Category: Medical Code(s): E66.9 - Obesity, unspecified (11) Visual impairment Status: Chronic Category: Medical Code(s): H54.7 - Unspecified visual loss (12) Cecum mass Status: Acute Ca
[2020-09-27 09:22] LABS: Anion Gap 14.7 mEq/L (5-15); Blood Urea Nitrogen 16 mg/dl (9-20); Carbon Dioxide 22 mmol/L (22.0-30.0); Chloride 110 mmol/L (98-107); Creatinine Clearance Estimated 58 mL/min (50-200); Potassium 3.7 mmoL/L (3.5-5.1); Sodium 143 mmol/L (136-145)
[2020-09-27 09:23] LABS: Calcium 8.6 mg/dl (8.4-10.2); Estimated Glomerular Filt Rate 40 ml/min (>60); GFR (African American) 48 ML/MIN (>60); Glucose 63 mg/dl (74-100)
--- NOTE | 2020-09-27 12:19 | HMH.GSPN ---
Subjective Narrative: Mr. 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 Biopsies pending. Cecal mass friable. CEA pending. Anticipating right colectomy. Currently, doing well. No complaints. Progress Note: A&P (1) Anemia Status: Acute (2) Occult blood positive stool Status: Acute (3) Abdominal pain Status: Acute (4) CVA (cerebral vascular accident) Status: Acute (5) Chest pain Status: Acute (6) Near syncope Status: Acute (7) Pulmonary HTN Status: Acute (8) A-fib Status: Chronic (9) CAD (coronary artery disease) Status: Chronic (10) Obesity (BMI 30.0-34.9) Status: Chronic (11) Visual impairment Status: Chronic (12) Cecum mass Status: Acute Assessment and Plan for All Diagnoses:: Cecal mass. Pending right colectomy. Awaiting CEA results. CT without metastatic disease. Allow diet today. Begin bowel prep 09/28/20. Exam Vital signs and Labs for Last 24 Hours: Temp Pulse Resp BP Pulse Ox 98.8 F 62 18 157/72 H 96 09/27/20 11:30 09/27/20 11:30 09/27/20 11:30 09/27/20 11:30 09/27/20 08:00 Laboratory Results - last 24 hr 09/23/20 15:26: Blood Type AB Positive, Antibody Screen Negative, Crossmatch (AHG) See Detail 09/26/20 17:25: Blood Type AB Positive, Antibody Screen Negative, Crossmatch (AHG) See Detail 09/27/20 04:05: Hgb 10.4 L D, Hct 32.6 L 09/27/20 06:40: WBC 8.2, RBC 3.56 L, Hgb 9.9 L, Hct 30.0 L, MCV 84.1, MCH 27.7, MCHC 33.0, RDW 16.5, Plt Count 234, MPV 8.0, Neut % (Auto) 71.8, Lymph % (Auto) 17.7, [place] % (Auto) 6.3, Eos % (Auto) 3.7, Baso % (Auto) 0.5, Neut # (Auto) 5.9, Lymph # (Auto) 1.5, [place] # (Auto) 0.5, Eos # (Auto) 0.3, Baso # (Auto) 0.0 09/27/20 06:40: Sodium 143, Potassium 3.7, Chloride 110 H, Carbon Dioxide 22, Anion Gap 14.7, BUN 16, Creatinine 1.70 H, Estimated Creat Clear 58, Estimated GFR 40 L, Est GFR ( Amer) 48 L, Glucose 63 L, Calcium 8.6 I & O for Last 24 hours: Intake & Output 09/25/20 09/26/20 09/27/20 09/28/20 11:59 11:59 11:59 11:59 Intake Total 1153 / 1153 1320 / 1320 980 / 980 Output Total 1125 / 1125 950 / 950 1078 / 1078 Balance 370 / 370 -98 / -98 Weight 106.708 kg 104.786 kg 103.878 kg - Constitutional no acute distress - *Routine Abdominal Exam Comments: Soft. Nontender.
--- NOTE | 2020-09-27 18:54 | PC.NURSE ---
Spoke with Dr. Mohr this am and he sttaed pt could have a reg diet until lia. VSS. Pt's only c/o has been a headache this shift. PRN tylenol given per mar. VSS. Pt is to be on clears starting tomorrow and NPO tomorrow @ midnight.
[2020-09-28] VITALS (9 sets, daily range): BP systolic 132–170; BP diastolic 54–89; PULSE 60–70; RESP 16–20; TEMP 36.8–37.2; O2SAT 94–99; BMI 27.6
--- NOTE | 2020-09-28 03:30 | PC.NURSE ---
Pt A&O, no c/o pain this shift. Lungs CTA, on room air. Bowel sounds x4, abd soft and nontender. NO BM this shift. PT tolerating diet. Has rested well this shift. IV patent, NS @ 50. VSS, call light in reach, no concerns at this time.
[2020-09-28 07:18] LABS: Basophils % 0.4 % (0.1-2.0); Eosinophils # 0.3 K/mm3 (0.0-0.4); Eosinophils % 4.1 % (0.1-12.0); Hematocrit 31.1 % (42.0-52.0); Hemoglobin 10.2 g/dL (14.1-18.0); Lymphocytes # 1.4 K/mm3 (0.7-4.5); Lymphocytes % 18.2 % (10-50); Mean Corpuscular HGB Conc 32.9 g/dL (31.8-35.4); Mean Corpuscular Hemoglobin 27.6 pg (27.0-31.2); Mean Corpuscular Volume 83.9 fl (80-94); Monocytes # 0.5 K/mm3 (0.1-1.0); Monocytes % 6.8 % (1.7-9.3); Neutrophils # 5.4 K/mm3 (1.8-7.8); Neutrophils % 70.5 % (37.0-80.0); Platelet Count 254 K/mm3 (142-424); Red Blood Count 3.71 M/mm3 (4.60-6.20); Red Cell Distribution Width 15.9 % (11.5-17.5); White Blood Count 7.7 K/mm3 (4.8-10.8)
[2020-09-28 08:38] LABS: CEA 2.3 ng/mL (0.0-4.7)
--- NOTE | 2020-09-28 08:52 | HMH.ACPN2 ---
Internal Medicine - PN: Subj *Date: 09/29/20 *Time: 07:25 Interval history: looks better - has pending surg Exam Vital signs and Labs for Last 24 Hours: Temp Pulse Resp BP Pulse Ox 98.9 F 62 16 170/80 H 94 L 09/28/20 07:58 09/28/20 07:58 09/28/20 07:58 09/28/20 07:58 09/28/20 07:58 Laboratory Results - last 24 hr 09/26/20 05:30: Carcinoembryonic Ag 2.3 09/27/20 06:40: Sodium 143, Potassium 3.7, Chloride 110 H, Carbon Dioxide 22, Anion Gap 14.7, BUN 16, Creatinine 1.70 H, Estimated Creat Clear 58, Estimated GFR 40 L, Est GFR ( Amer) 48 L, Glucose 63 L, Calcium 8.6 09/28/20 06:39: WBC 7.7, RBC 3.71 L, Hgb 10.2 L, Hct 31.1 L, MCV 83.9, MCH 27.6, MCHC 32.9, RDW 15.9, Plt Count 254, MPV 8.0, Neut % (Auto) 70.5, Lymph % (Auto) 18.2, [place] % (Auto) 6.8, Eos % (Auto) 4.1, Baso % (Auto) 0.4, Neut # (Auto) 5.4, Lymph # (Auto) 1.4, [place] # (Auto) 0.5, Eos # (Auto) 0.3, Baso # (Auto) 0.0 I & O for Last 24 hours: Intake & Output 09/25/20 09/26/20 09/27/20 09/28/20 11:59 11:59 11:59 11:59 Intake Total 1153 / 1153 1320 / 1320 980 / 980 1650 / 1650 Output Total 1125 / 1125 950 / 950 1078 / 1078 1925 / 1925 Balance 370 / 370 -98 / -98 -275 / -275 Weight 235 lb 4 oz 231 lb 0.2 oz 229 lb 0.2 oz 227 lb 6 oz - Constitutional no acute distress - *Routine HEENT Exam Head: Present: normocephalic Eye: Present: EOMI, PERRL ENT: Present: mucous membranes dry - *Routine Neck Exam Present: supple - *Routine Respiratory Exam Present: CTA bilaterally - *Routine Cardiovascular Exam Present: RRR, murmur - *Routine Abdominal Exam Present: soft - *Routine Extremities Exam Absent: calf tenderness - *Routine Skin Exam Present: intact - *Routine Neurological Exam Present: alert, CN II-XII intact - Routine Psychiatric Exam Present: normal affect Assessment and Plan (1) Anemia Status: Acute Qualifiers: Anemia type: unspecified type Qualified Code(s): D64.9 - Anemia, unspecified Category: Medical Code(s): D64.9 - Anemia, unspecified (2) Occult blood positive stool Status: Acute Category: Medical Code(s): R19.5 - Other fecal abnormalities (3) Abdominal pain Status: Acute Qualifiers: Abdominal location: epigastric Qualified Code(s): R10.13 - Epigastric pain Category: Medical Code(s): R10.9 - Unspecified abdominal pain (4) CVA (cerebral vascular accident) Status: Acute Qualifiers: CVA mechanism: unspecified Qualified Code(s): I63.9 - Cerebral infarction, unspecified Category: Medical Code(s): I63.9 - Cerebral infarction, unspecified (5) Chest pain Status: Acute Qualifiers: Chest pain type: precordial pain Qualified Code(s): R07.2 - Precordial pain Category: Medical Code(s): R07.9 - Chest pain, unspecified (6) Near syncope Status: Acute Category: Medical Code(s): R55 - Syncope and collapse (7) Pulmonary HTN Status: Acute Category: Medical Code(s): I27.20 - Pulmonary hypertension, unspecified (8) A-fib Status: Chronic Qualifiers: Atrial fibrillation type: paroxysmal Qualified Code(s): I48.0 - Paroxysmal atrial fibrillation Category: Medical Code(s): I48.91 - Unspecified atrial fibrillation (9) CAD (coronary artery disease) Status: Chronic Qualifiers: Coronary Disease-Associated Artery/Lesion type: unspecified vessel or lesion type [place] vs. transplanted heart: [place] heart Associated angina: with stable angina Qualified Code(s): I25.118 - Atherosclerotic heart disease of [place] coronary artery with other forms of angina pectoris Category: Medical Code(s): I25.10 - Atherosclerotic heart disease of [place] coronary artery without angina pectoris (10) Obesity (BMI 30.0-34.9) Status: Chronic Category: Medical Code(s): E66.9 - Obesity, unspecified (11) Visual impairment Status: Chronic Category: Medical Code(s): H54.7 - Unspecified visual loss (1
--- NOTE | 2020-09-28 19:37 | PC.NURSE ---
No acute changes this shift. Pt has had several loose bm's and is drinking bowel prep per mar. Have given report on pt and pt will need consent signed prior to surgery tomorrow, after surgeon speaks with him. CB in reach. VSS
[2020-09-29] VITALS (25 sets, daily range): BP systolic 110–193; BP diastolic 68–98; PULSE 59–85; RESP 13–24; TEMP 36.4–43; O2SAT 92–97; BMI 28.4
--- NOTE | 2020-09-29 03:27 | PC.NURSE ---
Pt is A/O x4. no acute changes t/o shift. Pt finished all of Golytely bowel prep. Pt had a shower last night. Pt is still pending surgery consent as he still has questions about the surgery. Pt is able to make needs known to staff, VSS, no concerns at this time.
--- NOTE | 2020-09-29 06:45 | HMH.GSPN ---
Subjective Patient reports: no new complaints Narrative: He states that he did okay with the bowel prep . 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 Invasive carcinoma remains a possibility. He is scheduled to undergo right colectomy this morning. Exam Vital signs and Labs for Last 24 Hours: Temp Pulse Resp BP Pulse Ox 98.7 F 80 20 163/82 H 97 09/29/20 03:41 09/29/20 04:00 09/29/20 03:41 09/29/20 03:41 09/29/20 03:41 Laboratory Results - last 24 hr 09/26/20 05:30: Carcinoembryonic Ag 2.3 09/28/20 06:39: WBC 7.7, RBC 3.71 L, Hgb 10.2 L, Hct 31.1 L, MCV 83.9, MCH 27.6, MCHC 32.9, RDW 15.9, Plt Count 254, MPV 8.0, Neut % (Auto) 70.5, Lymph % (Auto) 18.2, [place] % (Auto) 6.8, Eos % (Auto) 4.1, Baso % (Auto) 0.4, Neut # (Auto) 5.4, Lymph # (Auto) 1.4, [place] # (Auto) 0.5, Eos # (Auto) 0.3, Baso # (Auto) 0.0 I & O for Last 24 hours: Intake & Output 09/26/20 09/27/20 09/28/20 09/29/20 11:59 11:59 11:59 11:59 Intake Total 1320 / 1320 980 / 980 2350 / 2350 2587 / 2587 Output Total 950 / 950 1078 / 1078 1925 / 1925 1900 / 1900 Balance 370 / 370 -98 / -98 425 / 425 687 / 687 Weight 231 lb 0.2 oz 229 lb 0.2 oz 227 lb 6 oz 233 lb 4 oz - Constitutional no acute distress - *Routine Respiratory Exam Absent: respiratory distress - *Routine Cardiovascular Exam Present: RRR - *Routine Abdominal Exam Present: soft
--- NOTE | 2020-09-29 09:35 | SW/DCPLANNER ---
Addendum entered by [facility] 10/09/20 10:55: I have updated Danielle with [facility] regarding this patient. Addendum entered by [facility] 10/08/20 10:04: Updated patient information has been faxed to [facility]. Addendum entered by [facility] 10/07/20 10:33: I have updated Danielle with [facility] regarding this patient: patient is not ready for discharge at this time. Addendum entered by [facility] 10/03/20 10:51: I have updated Danielle at [facility]: patient is not currently ready for discharge at this time. Addendum entered by [facility] 09/30/20 11:20: Danielle at [facility] has stated that they can accept this patient once medically stable for discharge. Patient does not have a psych diagnosis. Addendum entered by [facility] 09/30/20 10:33: Danielle with [facility] is currently reviewing patient information. Addendum entered by [facility] 09/29/20 13:52: Patient information has been faxed to Danielle with [facility] due to the possibility of needing placement once medically stable for discharge. I will continue to follow up with [facility] and [facility]. Original Note: This patient currently resides at [facility]. I spoke with Sabino jewell AM from [facility] regarding updates. Patient is in surgery today and I will follow up once surgery is completed. Discharge date is unknown at this time.
--- NOTE | 2020-09-29 10:59 | HMH.OPNOTE ---
Date of procedure: 09/29/20 Pre-op Diagnosis:: Cecal mass Post-op Diagnosis:: Same Procedure performed:: Right colectomy Surgeon:: Scar Mckeon MD ASSISTANT MANAGER RETAIL:: Babatunde Burnett Anesthesia: GETA Estimated blood loss (mL): 150 Operative findings:: Mass at appendiceal orifice Operative note:: After informed consent was obtained the patient was taken to the operating room and placed in the supine position. General anesthesia was induced and his abdomen was prepped and draped in a sterile fashion. A midline laparotomy incision was made. The right colon was carefully elevated as the lateral attachments were transected with a combination of sharp dissection, blunt dissection, and electrocautery. Dissection was very difficult as the attachments were exceedingly dense with additional fat stranding in the right upper quadrant/hepatic flexure. No obvious injury to the vasculature, duodenum, or ureters noted. A transection site in the proximal transverse colon was elevated. The omentum was transected with the Enseal device. A linear stapler was utilized to transect the colon. The terminal ileum was carefully elevated. The ileum was transected in a similar manner with the linear stapler. The intervening mesentery was taken down with a combination of the Enseal device, blunt dissection, and clamped/cut/tie using Vicryl ligation. The right branch of the middle colic artery and the distal right colic artery were additionally ligated with 0 Nurolon. The specimen was passed off for pathologic evaluation. It was evaluated on the back table and a somewhat friable firm lesion was noted at the appendiceal orifice. The transverse colon and distal ileum were brought into [id number] apposition and a linear stapler was utilized to create a common otomy. The TX stapler was then used to close the common otomy. Imbrication with 3-0 Nurolon along the crotch and staple margin was completed. The mesenteric defect was closed with running Vicryl suture. The abdomen was thoroughly irrigated. No active bleeding or sign of injury was noted. Fascia was closed with running #2 Novafil. Skin was stapled. Dressings were applied and the patient was transferred to recovery after extubation. Condition: stable Disposition: PACU Specimens:: Right colon Complications:: No immediate
--- NOTE | 2020-09-29 11:09 | P.PN_ITS ---
[facility] Anesthesia Record Part I Intake, IV Amount: 2,800 Estimated blood loss (mL): 150 Urine output (mL): 800 Blood Pressure: 134/74 SaO2: 93 Pulse Rate: 78 Respiratory Rate: 14 Temperature: 97.8 F Patient is:: Awake, Stable Stable to PACU at:: 11:00
--- NOTE | 2020-09-29 11:29 | PC.NURSE ---
Addendum entered by Willy Espinoza RN 09/29/20 11:30: Abdomen soft and non-tender Original Note: Bowel sounds active on LUQ, LLQ, diminished RUQ, RLQ
--- NOTE | 2020-09-29 11:32 | PC.NURSE ---
Addendum entered by Willy Espinoza RN 09/29/20 11:48: bowel sounds, not breath sounds Original Note: Bowel sounds active LUQ,LLQ. Diminished breath sounds RLQ, RUQ. Abd soft and nontender. at bedside
--- NOTE | 2020-09-29 11:38 | PC.NURSE ---
Addendum entered by Willy Espinoza RN 09/29/20 11:47: bowel sounds, not breath sounds Original Note: Bowel sounds active LUQ,LLQ. Diminished breath sounds RLQ, RUQ. Abd soft and nontender
--- NOTE | 2020-09-29 11:47 | PC.NURSE ---
Bowel sounds active LUQ,LLQ. Diminished bowel sounds RLQ, RUQ. Abd soft and nontender
--- NOTE | 2020-09-29 11:58 | PC.NURSE ---
Bowel sounds active LUQ,LLQ. Diminished bowel sounds RLQ, RUQ. Abd soft and nontender
[2020-09-29 14:39] LABS: Microscopic,Cath URINE MICROSCOPIC (MICROSCOPIC)
[2020-09-29 15:25] LABS: Appearance,Urine/Cath CLEAR (Clear); Bilirubin,Cath Negative (Negative); Blood, Urine/Cath Negative (Negative); Color,Urine/Cath YELLOW (Yellow); Glucose,Urine/Cath (UA) Negative (Negative); Ketones,Urine/Cath Negative (Negative); Leukocyte Esterase,Cath Negative (Negative); Nitrate,Cath Negative (Negative); PH,Urine/Cath 7.5 (5.0-8.5); Protein,Urine/Cath Negative (Negative); Specific Gravity, Urine/Cath 1.015 (1.005-1.030); Urobilinogen,Cath 0.2 EU/dl (0.2)
--- NOTE | 2020-09-29 19:01 | PC.NURSE ---
6mL cleared from LOCATION DIRECTOR pump this shift
--- NOTE | 2020-09-29 20:08 | HMH.ACPN2 ---
Internal Medicine - PN: Subj *Date: 09/30/20 *Time: 07:02 Interval history: surg today- op note reviewed- Exam Vital signs and Labs for Last 24 Hours: Temp Pulse Resp BP Pulse Ox 97.6 F 71 16 184/90 H 94 L 09/29/20 19:00 09/29/20 19:00 09/29/20 19:00 09/29/20 19:00 09/29/20 19:00 Laboratory Results - last 24 hr 09/29/20 07:48: Urine Color Yellow, Urine Appearance Clear, Urine pH 7.5, Ur Specific [place] 1.015, Urine Protein Negative, Urine Glucose (UA) Negative, Urine Ketones Negative, Urine Blood Negative, Urine Nitrate Negative, Urine Bilirubin Negative, Urine Urobilinogen 0.2, Ur Leukocyte Esterase Negative, Urine RBC None, Urine WBC None, Ur Squamous Epith Cells None, Urine Bacteria None I & O for Last 24 hours: Intake & Output 09/27/20 09/28/20 09/29/20 09/30/20 11:59 11:59 11:59 11:59 Intake Total 980 / 980 2350 / 2350 5387 / 5387 Output Total 1078 / 1078 1925 / 1925 1900 / 1900 Balance -98 / -98 425 / 425 3487 / 3487 Weight 229 lb 0.2 oz 227 lb 6 oz 233 lb 4 oz - Constitutional no acute distress - *Routine HEENT Exam Head: Present: normocephalic Eye: Present: EOMI, PERRL ENT: Present: mucous membranes dry - *Routine Neck Exam Present: supple - *Routine Respiratory Exam Present: decreased breath sounds - *Routine Cardiovascular Exam Present: RRR - *Routine Abdominal Exam Present: soft, other (s/p surg) - *Routine Extremities Exam Absent: calf tenderness - *Routine Skin Exam Present: intact - *Routine Neurological Exam Absent: motor deficit - Routine Psychiatric Exam Present: unable to assess Assessment and Plan (1) Anemia Status: Acute Qualifiers: Anemia type: unspecified type Qualified Code(s): D64.9 - Anemia, unspecified Category: Medical Code(s): D64.9 - Anemia, unspecified (2) Occult blood positive stool Status: Acute Category: Medical Code(s): R19.5 - Other fecal abnormalities (3) Abdominal pain Status: Acute Qualifiers: Abdominal location: epigastric Qualified Code(s): R10.13 - Epigastric pain Category: Medical Code(s): R10.9 - Unspecified abdominal pain (4) CVA (cerebral vascular accident) Status: Acute Qualifiers: CVA mechanism: unspecified Qualified Code(s): I63.9 - Cerebral infarction, unspecified Category: Medical Code(s): I63.9 - Cerebral infarction, unspecified (5) Chest pain Status: Acute Qualifiers: Chest pain type: precordial pain Qualified Code(s): R07.2 - Precordial pain Category: Medical Code(s): R07.9 - Chest pain, unspecified (6) Near syncope Status: Acute Category: Medical Code(s): R55 - Syncope and collapse (7) Pulmonary HTN Status: Acute Category: Medical Code(s): I27.20 - Pulmonary hypertension, unspecified (8) A-fib Status: Chronic Qualifiers: Atrial fibrillation type: paroxysmal Qualified Code(s): I48.0 - Paroxysmal atrial fibrillation Category: Medical Code(s): I48.91 - Unspecified atrial fibrillation (9) CAD (coronary artery disease) Status: Chronic Qualifiers: Coronary Disease-Associated Artery/Lesion type: unspecified vessel or lesion type [place] vs. transplanted heart: [place] heart Associated angina: with stable angina Qualified Code(s): I25.118 - Atherosclerotic heart disease of [place] coronary artery with other forms of angina pectoris Category: Medical Code(s): I25.10 - Atherosclerotic heart disease of [place] coronary artery without angina pectoris (10) Obesity (BMI 30.0-34.9) Status: Chronic Category: Medical Code(s): E66.9 - Obesity, unspecified (11) Visual impairment Status: Chronic Category: Medical Code(s): H54.7 - Unspecified visual loss (12) Cecum mass Status: Acute Category: Medical Code(s): K63.89 - Other specified diseases of intestine
[2020-09-30] VITALS (14 sets, daily range): BP systolic 136–174; BP diastolic 68–90; PULSE 60–90; RESP 16–20; TEMP 36.5–37.9; O2SAT 90–96; BMI 28.1
--- NOTE | 2020-09-30 03:30 | PC.NURSE ---
Pt is A/O x4. Pt is able to make needs known to staff. Has slept well for most of the shift. Surgical dressing intact in midline of abd, small amount of dry bleeding present, per RN no change from previous shift. At beginning of shift pt appeared to be in some pain gave instructions on REPORT CLERK pump. Pt has pressed REPORT CLERK button x3 so far this shift. Pt ran a low grade temp and admin meds per MAY with relief. Pt is on 3L via NC with stats >90. Jason is draining yellow, clear, urine. no acute changes this shift. No concerns at this time.
[2020-09-30 06:52] LABS: Basophils # 0.1 K/mm3 (0-0.2); Basophils % 0.8 % (0.1-2.0); Eosinophils % 0.4 % (0.1-12.0); Hematocrit 30.6 % (42.0-52.0); Hemoglobin 10.1 g/dL (14.1-18.0); Lymphocytes # 0.8 K/mm3 (0.7-4.5); Mean Corpuscular Volume 81.8 fl (80-94); Mean Platelet Volume 8.3 fl (7.4-10.4); Monocytes # 0.7 K/mm3 (0.1-1.0); Monocytes % 5.6 % (1.7-9.3); Neutrophils # 10.2 K/mm3 (1.8-7.8); Neutrophils % 86.2 % (37.0-80.0); Platelet Count 242 K/mm3 (142-424); Red Blood Count 3.74 M/mm3 (4.60-6.20); Red Cell Distribution Width 15.8 % (11.5-17.5); White Blood Count 11.8 K/mm3 (4.8-10.8)
[2020-09-30 07:01] LABS: MANUAL DIFFERENTIAL MANUAL DIFFERENTIAL (MANUAL DIFF)
[2020-09-30 07:04] LABS: Anion Gap 11.8 mEq/L (5-15); Blood Urea Nitrogen 14 mg/dl (9-20); Calcium 8.2 mg/dl (8.4-10.2); Carbon Dioxide 22 mmol/L (22.0-30.0); Chloride 111 mmol/L (98-107); Creatinine Clearance Estimated 55 mL/min (50-200); Estimated Glomerular Filt Rate 37 ml/min (>60); GFR (African American) 45 ML/MIN (>60); Glucose 89 mg/dl (74-100); Potassium 3.8 mmoL/L (3.5-5.1); Sodium 141 mmol/L (136-145)
--- NOTE | 2020-09-30 07:45 | P.PN_ITS ---
[facility] Anesthesia Record Part II Discharge Time: 11:55 Destination: Medical Surgical Department PACU nurse assessment reviewed?: Yes Patient Condition:: Good Anesthesia Complications:: None Swallowing reflex intact?: Yes Cyanosis?: No Blood Pressure: 141/81 Pulse Rate: 60 Temperature: 97.8 F Mental Status: Alert & Oriented Pain level:: 0 Nausea and/or vomitting:: None Intake, IV Amount: 0
--- NOTE | 2020-09-30 07:58 | P.PN_ITS ---
Subjective Narrative: Postoperative pain Progress Note: A&P (1) Anemia Status: Acute (2) Occult blood positive stool Status: Acute (3) Abdominal pain Status: Acute (4) CVA (cerebral vascular accident) Status: Acute (5) Chest pain Status: Acute (6) Near syncope Status: Acute (7) Pulmonary HTN Status: Acute (8) A-fib Status: Chronic (9) CAD (coronary artery disease) Status: Chronic (10) Obesity (BMI 30.0-34.9) Status: Chronic (11) Visual impairment Status: Chronic (12) Cecum mass Status: Acute Assessment and Plan for All Diagnoses:: Overall, doing fairly well postoperative day 1 status post right colectomy. Ambulate DC Jason Maintenance fluids ordered 1 L LR ordered Continue incentive spirometer Exam Vital signs and Labs for Last 24 Hours: Temp Pulse Resp BP Pulse Ox 97.8 F 60 16 141/81 H 96 09/30/20 07:46 09/30/20 07:46 09/30/20 04:00 09/30/20 07:46 09/30/20 05:11 Laboratory Results - last 24 hr 09/29/20 07:48: Urine Color Yellow, Urine Appearance Clear, Urine pH 7.5, Ur Specific [place] 1.015, Urine Protein Negative, Urine Glucose (UA) Negative, Urine Ketones Negative, Urine Blood Negative, Urine Nitrate Negative, Urine Bilirubin Negative, Urine Urobilinogen 0.2, Ur Leukocyte Esterase Negative, Urine RBC None, Urine WBC None, Ur Squamous Epith Cells None, Urine Bacteria None 09/30/20 06:36: WBC 11.8 H D, RBC 3.74 L, Hgb 10.1 L, Hct 30.6 L, MCV 81.8, MCH 27.0, MCHC 33.0, RDW 15.8, Plt Count 242, MPV 8.3, Neut % (Auto) 86.2 H, Lymph % (Auto) 7.0 L, [place] % (Auto) 5.6, Eos % (Auto) 0.4, Baso % (Auto) 0.8, Neut # (Auto) 10.2 H, Lymph # (Auto) 0.8, [place] # (Auto) 0.7, Eos # (Auto) 0.0, Baso # (Auto) 0.1 09/30/20 06:36: Sodium 141, Potassium 3.8, Chloride 111 H, Carbon Dioxide 22, Anion Gap 11.8, BUN 14, Creatinine 1.80 H, Estimated Creat Clear 55, Estimated GFR 37 L, Est GFR ( Amer) 45 L, Glucose 89, Calcium 8.2 L I & O for Last 24 hours: Intake & Output 09/27/20 09/28/20 09/29/20 09/30/20 11:59 11:59 11:59 11:59 Intake Total 980 / 980 2350 / 2350 5387 / 5387 1019 / 1019 Output Total 1078 / 1078 1925 / 1925 1900 / 1900 700 / 700 Balance -98 / -98 425 / 425 3487 / 3487 319 / 319 Weight 229 lb 0.2 oz 227 lb 6 oz 233 lb 4 oz 231 lb 0.6 oz - Constitutional no acute distress - *Routine Respiratory Exam Absent: respiratory distress - *Routine Cardiovascular Exam Comments: Regular rate - *Routine Abdominal Exam Comments: Dressing in place. Some serosanguineous drainage on dressing. No erythema.
--- NOTE | 2020-09-30 08:02 | HMH.ACPN2 ---
Internal Medicine - PN: Subj *Date: 09/30/20 *Time: 08:47 Interval history: 70-year-old male patient sitting up in bed resting quietly with eyes closed, awakens to verbal stimuli. He had a right colectomy performed yesterday per general surgery for cecal mass. Midline dressing to abdomen intact with serosanguineous drainage Exam Vital signs and Labs for Last 24 Hours: Temp Pulse Resp BP Pulse Ox 97.8 F 60 16 141/81 H 96 09/30/20 07:46 09/30/20 07:46 09/30/20 04:00 09/30/20 07:46 09/30/20 05:11 Laboratory Results - last 24 hr 09/29/20 07:48: Urine Color Yellow, Urine Appearance Clear, Urine pH 7.5, Ur Specific [place] 1.015, Urine Protein Negative, Urine Glucose (UA) Negative, Urine Ketones Negative, Urine Blood Negative, Urine Nitrate Negative, Urine Bilirubin Negative, Urine Urobilinogen 0.2, Ur Leukocyte Esterase Negative, Urine RBC None, Urine WBC None, Ur Squamous Epith Cells None, Urine Bacteria None 09/30/20 06:36: WBC 11.8 H D, RBC 3.74 L, Hgb 10.1 L, Hct 30.6 L, MCV 81.8, MCH 27.0, MCHC 33.0, RDW 15.8, Plt Count 242, MPV 8.3, Neut % (Auto) 86.2 H, Lymph % (Auto) 7.0 L, [place] % (Auto) 5.6, Eos % (Auto) 0.4, Baso % (Auto) 0.8, Neut # (Auto) 10.2 H, Lymph # (Auto) 0.8, [place] # (Auto) 0.7, Eos # (Auto) 0.0, Baso # (Auto) 0.1 09/30/20 06:36: Sodium 141, Potassium 3.8, Chloride 111 H, Carbon Dioxide 22, Anion Gap 11.8, BUN 14, Creatinine 1.80 H, Estimated Creat Clear 55, Estimated GFR 37 L, Est GFR ( Amer) 45 L, Glucose 89, Calcium 8.2 L I & O for Last 24 hours: Intake & Output 07/17/21 07/18/21 07/19/21 07/20/21 23:59 23:59 23:59 23:59 Intake Total 1420 / 1420 2740 / 2740 3827 / 3887 1019 / 1019 Output Total 1700 / 1850 1325 / 1325 1400 / 2100 700 / 700 Balance -280 / -430 1415 / 1415 2427 / 1787 319 / 319 Weight 229 lb 0.2 oz 227 lb 6 oz 233 lb 4 oz 231 lb 0.6 oz - Constitutional no acute distress - *Routine HEENT Exam Head: Present: normocephalic Eye: Present: EOMI ENT: Present: mucous membranes moist - *Routine Neck Exam Present: trachea midline. Absent: tracheal deviation - *Routine Respiratory Exam Present: CTA bilaterally. Absent: accessory muscle use - *Routine Cardiovascular Exam Present: RRR - *Routine Abdominal Exam Present: soft, tenderness, wound - *Routine Extremities Exam Present: full ROM, pulses intact. Absent: cyanosis, clubbing, calf tenderness - *Routine Skin Exam Present: warm, wounds. Absent: intact Comments: Midline abdominal dressing with serosanguineous drainage - *Routine Neurological Exam Present: alert, oriented X3. Absent: motor deficit - Routine Psychiatric Exam Present: normal affect, normal thought process. Absent: auditory hallucinations, visual hallucinations Assessment and Plan (1) Anemia Status: Acute Qualifiers: Anemia type: unspecified type Qualified Code(s): D64.9 - Anemia, unspecified Category: Medical Code(s): D64.9 - Anemia, unspecified (2) Occult blood positive stool Status: Acute Category: Medical Code(s): R19.5 - Other fecal abnormalities (3) Abdominal pain Status: Acute Qualifiers: Abdominal location: epigastric Qualified Code(s): R10.13 - Epigastric pain Category: Medical Code(s): R10.9 - Unspecified abdominal pain (4) CVA (cerebral vascular accident) Status: Acute Qualifiers: CVA mechanism: unspecified Qualified Code(s): I63.9 - Cerebral infarction, unspecified Category: Medical Code(s): I63.9 - Cerebral infarction, unspecified (5) Chest pain Status: Acute Qualifiers: Chest pain type: precordial pain Qualified Code(s): R07.2 - Precordial pain Category: Medical Code(s): R07.9 - Chest pain, unspecified (6) Near syncope Status: Acute Category: Medical Code(s): R55 - Syncope and collapse (7) Pulmonary HTN Status: Acute Category: Medical Code(s): I27.20 - Pulmonary hypertension, unspecified (8) A-fib Status: Chronic
[2020-09-30 08:46] LABS: Lymphocytes % 9 % (10-50); Monocytes % 6 % (2-9); Neutrophils % 85 % (42-76); Total Cells Counted 100
[2020-09-30 08:48] LABS: Hypochromasia 1+; Platelet Estimate Normal
--- NOTE | 2020-09-30 14:54 | PC.NURSE ---
Pt walked about 20 feet to recliner from bed using rolling walker. Educated pt on using pillow to splint w/ movement. Pt tolerated well, he did push his CREDIT AUTHORIZER prior to ambulation and reported tolerable pain w/ activity. He is currently sitting up to chair, call diaz w/in reach. No needs voiced.
--- NOTE | 2020-09-30 15:40 | PC.NURSE ---
Pt A+Ox4. Pt is tolerating 2 L nc well with sats above 90. Pt has had c/o mid abdominal pain at incision area. Dressing has small amount of dried blood per RN no change from previous shift. Pt teaching given on pain pump administration. Bowel sounds active x4. Pt bhandari catheter D/C this shift. Pt able to urinate 100 ml at this time. Pt teaching on incentive spirometry given and pt demonstrated understanding. Call light within reach. Will continue to monitor.
--- NOTE | 2020-09-30 18:57 | PC.NURSE ---
6 mg cleared from SENIOR SALES COMPENSATION ANALYST, witnessed by Yadira Tompkins RN
[2020-10-01] VITALS (14 sets, daily range): BP systolic 120–168; BP diastolic 69–95; PULSE 60–93; RESP 18–22; TEMP 36.6–37.9; O2SAT 90–95; BMI 28.0
--- NOTE | 2020-10-01 03:17 | PC.NURSE ---
shift summary pt is alert and oriented X4. pts lung sounds are clear with sats maintained 90% or above on 2L via NC. pt states his abdominal pain is a little better. pt has used 4mg from his TENSIONING MACHINE OPERATOR pump. using his walker pt was able to ambulate from his chair to his bed with assist X1. pt has had no other complaints. no acute changes will continue to monitor.
[2020-10-01 07:04] LABS: Blood Urea Nitrogen 15 mg/dl (9-20); Calcium 8.5 mg/dl (8.4-10.2); Carbon Dioxide 23 mmol/L (22.0-30.0); Chloride 109 mmol/L (98-107); Creatinine Clearance Estimated 52 mL/min (50-200); Estimated Glomerular Filt Rate 35 ml/min (>60); GFR (African American) 42 ML/MIN (>60); Glucose 110 mg/dl (74-100); Sodium 140 mmol/L (136-145)
[2020-10-01 07:21] LABS: Basophils # 0.1 K/mm3 (0-0.2); Basophils % 0.5 % (0.1-2.0); Eosinophils # 0.2 K/mm3 (0.0-0.4); Eosinophils % 1.9 % (0.1-12.0); Hematocrit 33.3 % (42.0-52.0); Hemoglobin 10.5 g/dL (14.1-18.0); Lymphocytes % 9.1 % (10-50); Mean Corpuscular HGB Conc 31.4 g/dL (31.8-35.4); Mean Corpuscular Hemoglobin 26.4 pg (27.0-31.2); Mean Corpuscular Volume 84.3 fl (80-94); Mean Platelet Volume 8.2 fl (7.4-10.4); Monocytes # 0.7 K/mm3 (0.1-1.0); Monocytes % 5.9 % (1.7-9.3); Neutrophils # 9.1 K/mm3 (1.8-7.8); Neutrophils % 82.5 % (37.0-80.0); Platelet Count 259 K/mm3 (142-424); Red Blood Count 3.96 M/mm3 (4.60-6.20); Red Cell Distribution Width 15.8 % (11.5-17.5)
--- NOTE | 2020-10-01 08:03 | HMH.GSPN ---
Subjective Patient reports: no flatus, nausea Progress Note: A&P (1) Anemia Status: Acute (2) Occult blood positive stool Status: Acute (3) Abdominal pain Status: Acute (4) CVA (cerebral vascular accident) Status: Acute (5) Chest pain Status: Acute (6) Near syncope Status: Acute (7) Pulmonary HTN Status: Acute (8) A-fib Status: Chronic (9) CAD (coronary artery disease) Status: Chronic (10) Obesity (BMI 30.0-34.9) Status: Chronic (11) Visual impairment Status: Chronic (12) Cecum mass Status: Acute Assessment and plan: Overall, doing fairly well status post right colectomy. Continue medical management of nausea. He may require nasogastric decompression if symptoms worsen or increased upper abdominal distention noted. Await return of bowel function Continue incentive spirometer Continue to increase ambulation as tolerated Exam Vital signs and Labs for Last 24 Hours: Temp Pulse Resp BP Pulse Ox 99.0 F 70 18 151/86 H 93 L 10/01/20 07:41 10/01/20 07:41 10/01/20 07:41 10/01/20 07:41 10/01/20 07:41 Laboratory Results - last 24 hr 09/30/20 06:36: Total Counted 100, Neutrophils % (Manual) 85 H, Lymphocytes % (Manual) 9 L, Monocytes % (Manual) 6, Platelet Estimate Normal, Hypochromasia 1+ 10/01/20 06:32: WBC 11.0 H, RBC 3.96 L, Hgb 10.5 L, Hct 33.3 L, MCV 84.3, MCH 26.4 L, MCHC 31.4 L, RDW 15.8, Plt Count 259, MPV 8.2, Neut % (Auto) 82.5 H, Lymph % (Auto) 9.1 L, [place] % (Auto) 5.9, Eos % (Auto) 1.9, Baso % (Auto) 0.5, Neut # (Auto) 9.1 H, Lymph # (Auto) 1.0, [place] # (Auto) 0.7, Eos # (Auto) 0.2, Baso # (Auto) 0.1 10/01/20 06:32: Sodium 140, Potassium 4.0, Chloride 109 H, Carbon Dioxide 23, Anion Gap 12.0, BUN 15, Creatinine 1.90 H, Estimated Creat Clear 52, Estimated GFR 35 L, Est GFR ( Amer) 42 L, Glucose 110 H D, Calcium 8.5 I & O for Last 24 hours: Intake & Output 09/28/20 09/29/20 09/30/20 10/01/20 11:59 11:59 11:59 11:59 Intake Total 2350 / 2350 5387 / 5387 2202 / 2202 861 / 861 Output Total 1925 / 1925 1900 / 1900 1200 / 1200 Balance 425 / 425 3487 / 3487 1002 / 1002 836 / 836 Weight 227 lb 6 oz 233 lb 4 oz 231 lb 0.6 oz 230 lb 2 oz - Constitutional no acute distress - *Routine Respiratory Exam Absent: respiratory distress Comments: on NC O2 - *Routine Cardiovascular Exam Comments: regular rate - *Routine Abdominal Exam Present: tenderness Comments: Incision clean, dry, and intact. No erythema.
--- NOTE | 2020-10-01 08:05 | HMH.ACPN2 ---
Internal Medicine - PN: Subj *Date: 10/01/20 *Time: 09:33 Interval history: 70-year-old male patient lying in bed resting quietly with eyes open. He reports he is nauseous this morning nursing is retrieving antiemetic. He still complains of abdominal tenderness. Exam Vital signs and Labs for Last 24 Hours: Temp Pulse Resp BP Pulse Ox 99.0 F 70 18 151/86 H 93 L 10/01/20 07:41 10/01/20 07:41 10/01/20 07:41 10/01/20 07:41 10/01/20 07:41 Laboratory Results - last 24 hr 09/30/20 06:36: Total Counted 100, Neutrophils % (Manual) 85 H, Lymphocytes % (Manual) 9 L, Monocytes % (Manual) 6, Platelet Estimate Normal, Hypochromasia 1+ 10/01/20 06:32: WBC 11.0 H, RBC 3.96 L, Hgb 10.5 L, Hct 33.3 L, MCV 84.3, MCH 26.4 L, MCHC 31.4 L, RDW 15.8, Plt Count 259, MPV 8.2, Neut % (Auto) 82.5 H, Lymph % (Auto) 9.1 L, [place] % (Auto) 5.9, Eos % (Auto) 1.9, Baso % (Auto) 0.5, Neut # (Auto) 9.1 H, Lymph # (Auto) 1.0, [place] # (Auto) 0.7, Eos # (Auto) 0.2, Baso # (Auto) 0.1 10/01/20 06:32: Sodium 140, Potassium 4.0, Chloride 109 H, Carbon Dioxide 23, Anion Gap 12.0, BUN 15, Creatinine 1.90 H, Estimated Creat Clear 52, Estimated GFR 35 L, Est GFR ( Amer) 42 L, Glucose 110 H D, Calcium 8.5 I & O for Last 24 hours: Intake & Output 09/28/20 09/29/20 09/30/20 10/01/20 23:59 23:59 23:59 23:59 Intake Total 2740 / 2740 3827 / 3887 3063 / 3063 0 / 0 Output Total 1325 / 1325 1400 / 2100 1225 / 1225 Balance 1415 / 1415 2427 / 1787 1838 / 1838 0 / 0 Weight 227 lb 6 oz 233 lb 4 oz 231 lb 0.6 oz 230 lb 2 oz - Constitutional no acute distress - *Routine HEENT Exam Head: Present: normocephalic Eye: Present: EOMI ENT: Present: mucous membranes moist - *Routine Neck Exam Present: trachea midline. Absent: tracheal deviation - *Routine Respiratory Exam Present: CTA bilaterally. Absent: accessory muscle use - *Routine Cardiovascular Exam Present: RRR - *Routine Abdominal Exam Present: soft, normoactive bowel sounds, tenderness. Absent: firm - *Routine Extremities Exam Present: full ROM, pulses intact. Absent: cyanosis, clubbing, calf tenderness - *Routine Skin Exam Present: dry, warm, wounds. Absent: cyanosis, erythema Comments: Mid-line Abd Drsg with serousang drng - *Routine Neurological Exam Present: alert, oriented X3. Absent: motor deficit, pronator drift, vision grossly intact - Routine Psychiatric Exam Present: normal affect, normal thought process. Absent: auditory hallucinations, anxious Assessment and Plan (1) Anemia Status: Acute Qualifiers: Anemia type: unspecified type Qualified Code(s): D64.9 - Anemia, unspecified Category: Medical Code(s): D64.9 - Anemia, unspecified (2) Occult blood positive stool Status: Acute Category: Medical Code(s): R19.5 - Other fecal abnormalities (3) Abdominal pain Status: Acute Qualifiers: Abdominal location: epigastric Qualified Code(s): R10.13 - Epigastric pain Category: Medical Code(s): R10.9 - Unspecified abdominal pain (4) CVA (cerebral vascular accident) Status: Acute Qualifiers: CVA mechanism: unspecified Qualified Code(s): I63.9 - Cerebral infarction, unspecified Category: Medical Code(s): I63.9 - Cerebral infarction, unspecified (5) Chest pain Status: Acute Qualifiers: Chest pain type: precordial pain Qualified Code(s): R07.2 - Precordial pain Category: Medical Code(s): R07.9 - Chest pain, unspecified (6) Near syncope Status: Acute Category: Medical Code(s): R55 - Syncope and collapse (7) Pulmonary HTN Status: Acute Category: Medical Code(s): I27.20 - Pulmonary hypertension, unspecified (8) A-fib Status: Chronic Qualifiers: Atrial fibrillation type: paroxysmal Qualified Code(s): I48.0 - Paroxysmal atrial fibrillation Category: Medical Code(s): I48.91 - Unspecified atrial fibrillation (9) CAD (coronary artery disease) Status: Chronic Qu
--- NOTE | 2020-10-01 15:02 | PC.NURSE ---
PT ROOM AIR SAT 84%. 2LNC RE-APPLIED
--- NOTE | 2020-10-01 18:01 | PC.NURSE ---
HE IS AOX4, EARLY IN SHIFT PT HAD AN EPISODE OF N/V THAT DID NOT SUBSIDE WITH ADMIN OF ZOFRAN. ABD WAS NOTED TO BE FIRM AND DISTENDED DR MEDRANO WAS CONTACTED AND AND NG TUBE WAS PLACED TO CONTINUOUS LOW WALL SUCTION. THUS FAR 300 ML OF DARK GASTRIC CONTENTS HAS BEEN EMPTIED FROM THE SUCTION CANISTER. PT HAS BEEN IN BED T/O SHIFT. HIS ABD IS ROUND AND FIRM, BOWEL SOUNDS HYPOACTIVE. 2LNC APPLIED R/T PT ROOM AIR SAT OF 84%. PT HAS DEMONSTRATED GENERAL MALAISE AND HAS BEEN NOTED TO SLEEP AT INTERVALS T/O SHIFT. ABD INCISION IS FOOT ORTHOPEDIST AT THIS TIME. NO NEEDS AT THIS TIME.
--- NOTE | 2020-10-01 18:55 | PC.NURSE ---
2MG CLEARED FROM SAFETY COUNCIL DIRECTOR PUMP WITH NORM GREENBERG RN.
--- NOTE | 2020-10-01 19:36 | PC.NURSE ---
RA SATS WERE 87% RETURNED PT ON 2L NC
[2020-10-02] VITALS (14 sets, daily range): BP systolic 116–179; BP diastolic 78–103; PULSE 74–98; RESP 17–24; TEMP 37.1–37.6; O2SAT 92–98; BMI 28.6
--- NOTE | 2020-10-02 04:24 | PC.NURSE ---
Patient is alert & oriented x4. He has rested well during this shift. Patient has been lethargic and uncomfortable. Midline incision is noted and clean, dry and intact. No secretions or redness noted. Patient's NG tube remains at 53 at the nare and on low continuous suction. Patient has utilized his STEEL SAMPLER pump. Abdomen remains distended but soft. Bowel sounds where absent upon auscultation. Vital signs are stable, will continue to monitor. Call light within reach, STEEL SAMPLER pump button in reach.
--- NOTE | 2020-10-02 05:57 | PC.NURSE ---
BOND ANALYST pump cleared 7.8mg this shift.
[2020-10-02 06:48] LABS: Basophils % 0.2 % (0.1-2.0); Eosinophils # 0.2 K/mm3 (0.0-0.4); Eosinophils % 1.8 % (0.1-12.0); Hematocrit 32.4 % (42.0-52.0); Hemoglobin 10.3 g/dL (14.1-18.0); Lymphocytes # 1.1 K/mm3 (0.7-4.5); Lymphocytes % 9.9 % (10-50); Mean Corpuscular HGB Conc 31.6 g/dL (31.8-35.4); Mean Corpuscular Hemoglobin 26.8 pg (27.0-31.2); Mean Corpuscular Volume 84.6 fl (80-94); Mean Platelet Volume 8.1 fl (7.4-10.4); Monocytes # 0.7 K/mm3 (0.1-1.0); Monocytes % 5.7 % (1.7-9.3); Neutrophils # 9.4 K/mm3 (1.8-7.8); Neutrophils % 82.4 % (37.0-80.0); Platelet Count 292 K/mm3 (142-424); Red Blood Count 3.83 M/mm3 (4.60-6.20); Red Cell Distribution Width 15.6 % (11.5-17.5); White Blood Count 11.4 K/mm3 (4.8-10.8)
[2020-10-02 06:58] LABS: Anion Gap 12.9 mEq/L (5-15); Blood Urea Nitrogen 13 mg/dl (9-20); Calcium 8.2 mg/dl (8.4-10.2); Carbon Dioxide 22 mmol/L (22.0-30.0); Chloride 111 mmol/L (98-107); Creatinine Clearance Estimated 56 mL/min (50-200); Estimated Glomerular Filt Rate 37 ml/min (>60); GFR (African American) 45 ML/MIN (>60); Glucose 114 mg/dl (74-100); Potassium 3.9 mmoL/L (3.5-5.1); Sodium 142 mmol/L (136-145)
--- NOTE | 2020-10-02 07:12 | HMH.GSPN ---
Subjective Narrative: Nasogastric tube placed yesterday for increasing nausea/distention. Currently he is resting. Progress Note: A&P (1) Anemia Status: Acute (2) Occult blood positive stool Status: Acute (3) Abdominal pain Status: Acute (4) CVA (cerebral vascular accident) Status: Acute (5) Chest pain Status: Acute (6) Near syncope Status: Acute (7) Pulmonary HTN Status: Acute (8) A-fib Status: Chronic (9) CAD (coronary artery disease) Status: Chronic (10) Obesity (BMI 30.0-34.9) Status: Chronic (11) Visual impairment Status: Chronic (12) Cecum mass Status: Acute (13) Postoperative ileus Status: Acute Assessment and plan: Continue nasogastric decompression for now. Await return of bowel function. Assessment and Plan for All Diagnoses:: Continue to encourage ambulation and incentive spirometer use. Exam Vital signs and Labs for Last 24 Hours: Temp Pulse Resp BP Pulse Ox 99.6 F 78 19 130/81 95 10/02/20 05:40 10/02/20 05:40 10/02/20 05:40 10/02/20 05:40 10/02/20 05:40 Laboratory Results - last 24 hr 10/01/20 06:32: WBC 11.0 H, RBC 3.96 L, Hgb 10.5 L, Hct 33.3 L, MCV 84.3, MCH 26.4 L, MCHC 31.4 L, RDW 15.8, Plt Count 259, MPV 8.2, Neut % (Auto) 82.5 H, Lymph % (Auto) 9.1 L, [place] % (Auto) 5.9, Eos % (Auto) 1.9, Baso % (Auto) 0.5, Neut # (Auto) 9.1 H, Lymph # (Auto) 1.0, [place] # (Auto) 0.7, Eos # (Auto) 0.2, Baso # (Auto) 0.1 10/01/20 06:32: Sodium 140, Potassium 4.0, Chloride 109 H, Carbon Dioxide 23, Anion Gap 12.0, BUN 15, Creatinine 1.90 H, Estimated Creat Clear 52, Estimated GFR 35 L, Est GFR ( Amer) 42 L, Glucose 110 H D, Calcium 8.5 10/02/20 06:11: WBC 11.4 H, RBC 3.83 L, Hgb 10.3 L, Hct 32.4 L, MCV 84.6, MCH 26.8 L, MCHC 31.6 L, RDW 15.6, Plt Count 292, MPV 8.1, Neut % (Auto) 82.4 H, Lymph % (Auto) 9.9 L, [place] % (Auto) 5.7, Eos % (Auto) 1.8, Baso % (Auto) 0.2, Neut # (Auto) 9.4 H, Lymph # (Auto) 1.1, [place] # (Auto) 0.7, Eos # (Auto) 0.2, Baso # (Auto) 0.0 10/02/20 06:11: Sodium 142, Potassium 3.9, Chloride 111 H, Carbon Dioxide 22, Anion Gap 12.9, BUN 13, Creatinine 1.80 H, Estimated Creat Clear 56, Estimated GFR 37 L, Est GFR ( Amer) 45 L, Glucose 114 H, Calcium 8.2 L I & O for Last 24 hours: Intake & Output 09/29/20 09/30/20 10/01/20 10/02/20 11:59 11:59 11:59 11:59 Intake Total 5387 / 5387 2202 / 2202 861 / 861 4117 / 4117 Output Total 1900 / 1900 1200 / 1200 / 975 / 975 Balance 3487 / 3487 1002 / 1002 836 / 836 3142 / 3142 Weight 233 lb 4 oz 231 lb 0.6 oz 230 lb 2 oz 235 lb - Constitutional no acute distress Comments: Somewhat slow to respond to questions (essentially still sleeping) - *Routine Respiratory Exam Absent: respiratory distress - *Routine Cardiovascular Exam Present: RRR - *Routine Abdominal Exam Present: soft
--- NOTE | 2020-10-02 07:20 | PC.NURSE ---
PT NG TUBE RE-SECURED AT 0645. IN PLACE AT 53 . SUCTION TO 60. RELEASING GREEN BILE. PLACEMENT CHECKED PER AUSCULTATION. BUBBLES NOTED.
--- NOTE | 2020-10-02 12:29 | PC.NURSE ---
Patient's vital signs high due to patient care being provided at this time. JIA youssef.
[2020-10-02 14:25] LABS: Microscopic, Urine URINE MICROSCOPIC (MICROSCOPIC)
[2020-10-02 14:26] LABS: Appearance,Urine CLEAR (Clear); Bilirubin,Urine Negative (Negative); Blood, Urine 1+ (Negative); Color,Urine YELLOW (Yellow); Glucose,Urine (UA) Negative (Negative); Ketones,Urine TRACE (Negative); Leukocyte Esterase,Urine Negative (Negative); Nitrate,Urine Negative (Negative); PH,Urine 5.5 (5.0-8.5); Protein,Urine TRACE (Negative); Specific Gravity, Urine 1.025 (1.005-1.030); Urobilinogen,Urine 0.2 EU/dl (0.2)
[2020-10-02 14:44] LABS: WBC,Urine Occasional #/hpf (0-3)
[2020-10-02 14:45] LABS: Transitional Epi Cells,Urine OCC #/lpf (0-3)
--- NOTE | 2020-10-02 16:30 | HMH.ACPN2 ---
Internal Medicine - PN: Subj *Date: 10/02/20 *Time: 08:45 Interval history: pt laying in bed states no c/o Exam Vital signs and Labs for Last 24 Hours: Temp Pulse Resp BP Pulse Ox 98.8 F 74 19 153/93 H 97 10/02/20 16:00 10/02/20 16:00 10/02/20 16:00 10/02/20 16:00 10/02/20 16:00 Laboratory Results - last 24 hr 10/02/20 06:11: WBC 11.4 H, RBC 3.83 L, Hgb 10.3 L, Hct 32.4 L, MCV 84.6, MCH 26.8 L, MCHC 31.6 L, RDW 15.6, Plt Count 292, MPV 8.1, Neut % (Auto) 82.4 H, Lymph % (Auto) 9.9 L, [place] % (Auto) 5.7, Eos % (Auto) 1.8, Baso % (Auto) 0.2, Neut # (Auto) 9.4 H, Lymph # (Auto) 1.1, [place] # (Auto) 0.7, Eos # (Auto) 0.2, Baso # (Auto) 0.0 10/02/20 06:11: Sodium 142, Potassium 3.9, Chloride 111 H, Carbon Dioxide 22, Anion Gap 12.9, BUN 13, Creatinine 1.80 H, Estimated Creat Clear 56, Estimated GFR 37 L, Est GFR ( Amer) 45 L, Glucose 114 H, Calcium 8.2 L 10/02/20 13:55: Urine Color Yellow, Urine Appearance Clear, Urine pH 5.5, Ur Specific [place] 1.025, Urine Protein Trace, Urine Glucose (UA) Negative, Urine Ketones Trace, Urine Blood 1+, Urine Nitrate Negative, Urine Bilirubin Negative, Urine Urobilinogen 0.2, Ur Leukocyte Esterase Negative, Urine RBC 5-10, Urine WBC Occasional, Ur Squamous Epith Cells 3-5, Ur Transition Epith Cell Occ, Urine Bacteria None I & O for Last 24 hours: Intake & Output 09/30/20 10/01/20 10/02/20 10/03/20 11:59 11:59 11:59 11:59 Intake Total 2202 / 2202 861 / 861 4117 / 4117 1299 / 1299 Output Total 1200 / 1200 25 / 25 1050 / 1050 950 / 950 Balance 1002 / 1002 836 / 836 3067 / 3067 349 / 349 Weight 231 lb 0.6 oz 230 lb 2 oz 235 lb - Constitutional no acute distress - *Routine HEENT Exam Head: Present: normocephalic Eye: Present: other ENT: Present: mucous membranes moist Comments: blind - *Routine Neck Exam Present: supple. Absent: lymphadenopathy - *Routine Respiratory Exam Present: CTA bilaterally - *Routine Cardiovascular Exam Present: RRR - *Routine Abdominal Exam Present: soft, tenderness Comments: midline incision [place] in place - *Routine Extremities Exam Absent: cyanosis, clubbing, edema - *Routine Skin Exam Present: warm. Absent: rash - *Routine Neurological Exam Present: alert, oriented X3 - Routine Psychiatric Exam Present: normal affect Assessment and Plan (1) Anemia Status: Acute Qualifiers: Anemia type: unspecified type Qualified Code(s): D64.9 - Anemia, unspecified Category: Medical Code(s): D64.9 - Anemia, unspecified (2) Occult blood positive stool Status: Acute Category: Medical Code(s): R19.5 - Other fecal abnormalities (3) Abdominal pain Status: Acute Qualifiers: Abdominal location: epigastric Qualified Code(s): R10.13 - Epigastric pain Category: Medical Code(s): R10.9 - Unspecified abdominal pain (4) CVA (cerebral vascular accident) Status: Acute Qualifiers: CVA mechanism: unspecified Qualified Code(s): I63.9 - Cerebral infarction, unspecified Category: Medical Code(s): I63.9 - Cerebral infarction, unspecified (5) Chest pain Status: Acute Qualifiers: Chest pain type: precordial pain Qualified Code(s): R07.2 - Precordial pain Category: Medical Code(s): R07.9 - Chest pain, unspecified (6) Near syncope Status: Acute Category: Medical Code(s): R55 - Syncope and collapse (7) Pulmonary HTN Status: Acute Category: Medical Code(s): I27.20 - Pulmonary hypertension, unspecified (8) A-fib Status: Chronic Qualifiers: Atrial fibrillation type: paroxysmal Qualified Code(s): I48.0 - Paroxysmal atrial fibrillation Category: Medical Code(s): I48.91 - Unspecified atrial fibrillation (9) CAD (coronary artery disease) Status: Chronic Qualifiers: Coronary Disease-Associated Artery/Lesion type: unspecified vessel or lesion type [place] vs. transplanted heart: [place] heart Associated angina: with stable an
--- NOTE | 2020-10-02 19:54 | PC.NURSE ---
PT IS AOX4 BUT VERY LETHARGIC, AN ORDER FOR 0.1 MG COLONIDINE WAS OBTAINED R/T PY HYPERTENSION, A FERNANDEZ CATH WAS PLACED THIS SHIFT DUE TO PT ACUTE URINARY RETENTION, PT HAS BEEN USING MANAGER HOUSEKEEPING PUMP FOR PAIN CONTROL. MEDS ARE BEING CRUSHED AND INSTILLED THROUGH PT G TUBE. ABD INCISION IS OPEN TO AIR, SMALL AMOUNT OF BLOODY DRAINAGE NOTED. PT HAS USED INCENTIVE SPIROMETER THIS SHIFT BUT HAS REFUSED TO AMBULATE.
[2020-10-03] VITALS (16 sets, daily range): BP systolic 129–186; BP diastolic 75–99; PULSE 60–81; RESP 16–26; TEMP 37.2–37.9; O2SAT 91–98; BMI 28.3
--- NOTE | 2020-10-03 04:33 | PC.NURSE ---
Patient is alert and oriented x4. Patient has rested well shift. He became diaphoretic around 0100, his blood pressure was elevated. Patient was readjusted in his bed, zofran was administered for nausea, Tylenol suppository was given for pain/low grade fever. Patient's BP remain elevated and MD was notified and an additional 0.2mg of clonidine was ordered. Patient's BP decreased back to patient baseline. Patient stated he was in a lot of pain. Patient stated his pain was a 10 out of 10 and reeducated about use of PARTS PRODUCT ANALYST. Patient has been educated repeatedly, this shift about utilizing the PARTS PRODUCT ANALYST pump. Patient's vital signs are stable, will continue to monitor. Call light within reach, PARTS PRODUCT ANALYST button within reach. NG remains 53 at the nare, dressing device was reapplied. Education on IS was reenforced and patient has used.
--- NOTE | 2020-10-03 05:08 | PC.NURSE ---
600 in suction canister at start of shift. emptied at 800. new canister started. 1 gely was soiled this shift from ng tube as well. currently on low wall continuous suction at approximately 55
--- NOTE | 2020-10-03 05:26 | PC.NURSE ---
FINISHED CLOTH CHECKER pump cleared and 7mg total. Patient, however, only used 2mg on this current shift. At shift change, there was 5mg noted on the FINISHED CLOTH CHECKER pump monitor.
[2020-10-03 06:42] LABS: Basophils % 0.5 % (0.1-2.0); Eosinophils # 0.3 K/mm3 (0.0-0.4); Eosinophils % 3.8 % (0.1-12.0); Hematocrit 34.5 % (42.0-52.0); Hemoglobin 10.8 g/dL (14.1-18.0); Lymphocytes % 11.2 % (10-50); Mean Corpuscular HGB Conc 31.4 g/dL (31.8-35.4); Mean Platelet Volume 7.5 fl (7.4-10.4); Monocytes # 0.5 K/mm3 (0.1-1.0); Monocytes % 5.9 % (1.7-9.3); Neutrophils % 78.6 % (37.0-80.0); Platelet Count 289 K/mm3 (142-424); Red Blood Count 4.01 M/mm3 (4.60-6.20); Red Cell Distribution Width 15.8 % (11.5-17.5); White Blood Count 8.9 K/mm3 (4.8-10.8)
[2020-10-03 06:54] LABS: Anion Gap 9.6 mEq/L (5-15); Blood Urea Nitrogen 10 mg/dl (9-20); Calcium 8.5 mg/dl (8.4-10.2); Carbon Dioxide 26 mmol/L (22.0-30.0); Chloride 110 mmol/L (98-107); Creatinine Clearance Estimated 66 mL/min (50-200); Estimated Glomerular Filt Rate 46 ml/min (>60); GFR (African American) 56 ML/MIN (>60); Glucose 96 mg/dl (74-100); Potassium 4.6 mmoL/L (3.5-5.1); Sodium 141 mmol/L (136-145)
--- NOTE | 2020-10-03 07:06 | HMH.GSPN ---
Subjective Patient reports: no new complaints, feels better, still having pain, flatus, no bowel movement Narrative: Somewhat more talkative this morning. He states he does feel a little bit better . He has passed gas a couple times . 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 Residuals to be checked every 4 hours. Possibly remove nasogastric tube later today and slowly advance diet. Exam Vital signs and Labs for Last 24 Hours: Temp Pulse Resp BP Pulse Ox 99.5 F 69 18 129/75 94 L 10/03/20 04:00 10/03/20 06:00 10/03/20 06:00 10/03/20 06:00 10/03/20 06:00 Laboratory Results - last 24 hr 10/02/20 13:55: Urine Color Yellow, Urine Appearance Clear, Urine pH 5.5, Ur Specific [place] 1.025, Urine Protein Trace, Urine Glucose (UA) Negative, Urine Ketones Trace, Urine Blood 1+, Urine Nitrate Negative, Urine Bilirubin Negative, Urine Urobilinogen 0.2, Ur Leukocyte Esterase Negative, Urine RBC 5-10, Urine WBC Occasional, Ur Squamous Epith Cells 3-5, Ur Transition Epith Cell Occ, Urine Bacteria None 10/03/20 06:22: WBC 8.9, RBC 4.01 L, Hgb 10.8 L, Hct 34.5 L, MCV 86.0, MCH 27.0, MCHC 31.4 L, RDW 15.8, Plt Count 289, MPV 7.5, Neut % (Auto) 78.6, Lymph % (Auto) 11.2, [place] % (Auto) 5.9, Eos % (Auto) 3.8, Baso % (Auto) 0.5, Neut # (Auto) 7.0, Lymph # (Auto) 1.0, [place] # (Auto) 0.5, Eos # (Auto) 0.3, Baso # (Auto) 0.0 I & O for Last 24 hours: Intake & Output 09/30/20 10/01/20 10/02/20 10/03/20 11:59 11:59 11:59 11:59 Intake Total 2202 / 2202 861 / 861 4117 / 4117 2868 / 2868 Output Total 1200 / 1200 1050 / 1050 3125 / 3125 Balance 1002 / 1002 836 / 836 3067 / 3067 -257 / -257 Weight 231 lb 0.6 oz 230 lb 2 oz 235 lb 232 lb 7 oz - Constitutional no acute distress - *Routine Respiratory Exam Absent: respiratory distress - *Routine Cardiovascular Exam Absent: tachycardia - *Routine Abdominal Exam Present: soft
--- NOTE | 2020-10-03 09:01 | DIET.NUTRFU ---
Addendum entered by Effie Nazario 10/15/20 14:12: Doing well, continuing to eat meals slowly without issue, voices no nutritional concerns. PO intakes 75%. Had a normal BM. Electrolytes wnl. He has had elevated creatinine past 48h, IVF given and lasix stopped, No added salt added to diet order. Addendum entered by Effie Nazario 10/13/20 12:44: Pt doing much better, advanced to bland/low residue diet, PO intakes 75%. Easily helped him up to sit on the side of the bed for lunch as he sang a song about chicken. States he is so happy to have solid food and loves our chicken and mashed potatoes. He states he has tolerated meals well, attributes this to eating slowly. Encouraged pt to continue to take his time eating and stay positive. He continues with gas and loose bowels. TPN dc'd. Na remains low and Phos/Mag remain elevated, should improve with TPN dc. Weight appears stable, however suspect inaccuracies documentation. No edema noted. Addendum entered by Effie Nazario 10/10/20 10:30: Pt advanced to clear liquid diet yesterday, drank 2 Breeze/Boosts with good tolerance. Will continue these TID. Weight up 4# past 24h, some distention but this is not uncommon following TPN after prolonged NPO status. He continues with alot of gas and liquid stool output. Na low, Phos and Mag elevated today, expect stabilization with dc TPN and advancement diet. Continuing to monitor to alter nutritional care plan as needed. Addendum entered by Effie Nazario 10/08/20 11:42: Pt states he is feeling better, having liquid stools and gas. TPN has been started and advancing slowly. At goal rate, TPN provides 2237kcal total, 1158kcal cho, 500kcal fat, and 579kcal protein. This meets 91% of pt's needs which is appropriate. Will monitor tolerance, labs, nutritional needs met to alter nutritional care plan as indicated. Pt's weight stable. Moderate increase BG with initiation TPN- 118, 123. Addendum entered by Effie Nazario 10/06/20 14:20: Pt tolerated minimal liquids well on 10/04, then had N/V and remains NPO at this time. He has had multiple BMs. Ileus remains on Xray, awairing Upper GI/Small Bowel Xray, possible laparotomy findings. Pt has lost 7% BW t/o stay, minimal intake over past 2w and now meets criteria for Acute Malnutrition rt Inadequate energy intake. May require TPN, following further findings/care plans to provide appropriate MNT as needed. Original Note: Nutritional consult completed, pt day 5 NPO s/p R colectomy and with postop ileus. Weight stable, electrolytes wnl, has had 1 episode hypoglycemia. He has passed gas but has not had a BM. He has NG for drainage. Dr. Mckeon noted possible removal NG and slow advancement diet today. He is also receiving D5/NaCl/KCl fluids. Concur with this as best option if possible, recommend continuing IVF cautiously. If pt unable to start diet in the next 24h, recommend initiating TPN. Recommend taking Magnesium and Phosphorus labs. Continuing to monitor.
--- NOTE | 2020-10-03 10:42 | PC.NURSE ---
Addendum entered by Marianna Proctor RN 10/03/20 12:42: Gastric residual @ 1200 = 0 Original Note: Gastric Residual @ 0800 = 0
--- NOTE | 2020-10-03 13:08 | HMH.ACPN2 ---
Internal Medicine - PN: Subj *Date: 10/03/20 *Time: 08:45 Interval history: pt laying in bed states he is doing well. still pain. ng draining. Exam Vital signs and Labs for Last 24 Hours: Temp Pulse Resp BP Pulse Ox 99.5 F 63 18 143/98 H 97 10/03/20 11:28 10/03/20 11:28 10/03/20 11:28 10/03/20 11:28 10/03/20 11:28 Laboratory Results - last 24 hr 10/02/20 13:55: Urine Color Yellow, Urine Appearance Clear, Urine pH 5.5, Ur Specific [place] 1.025, Urine Protein Trace, Urine Glucose (UA) Negative, Urine Ketones Trace, Urine Blood 1+, Urine Nitrate Negative, Urine Bilirubin Negative, Urine Urobilinogen 0.2, Ur Leukocyte Esterase Negative, Urine RBC 5-10, Urine WBC Occasional, Ur Squamous Epith Cells 3-5, Ur Transition Epith Cell Occ, Urine Bacteria None 10/03/20 06:22: WBC 8.9, RBC 4.01 L, Hgb 10.8 L, Hct 34.5 L, MCV 86.0, MCH 27.0, MCHC 31.4 L, RDW 15.8, Plt Count 289, MPV 7.5, Neut % (Auto) 78.6, Lymph % (Auto) 11.2, [place] % (Auto) 5.9, Eos % (Auto) 3.8, Baso % (Auto) 0.5, Neut # (Auto) 7.0, Lymph # (Auto) 1.0, [place] # (Auto) 0.5, Eos # (Auto) 0.3, Baso # (Auto) 0.0 10/03/20 06:22: Sodium 141, Potassium 4.6, Chloride 110 H, Carbon Dioxide 26, Anion Gap 9.6, BUN 10, Creatinine 1.50 H, Estimated Creat Clear 66, Estimated GFR 46 L, Est GFR ( Amer) 56 L D, Glucose 96, Calcium 8.5 I & O for Last 24 hours: Intake & Output 10/01/20 10/02/20 10/03/20 10/04/20 11:59 11:59 11:59 11:59 Intake Total 861 / 861 4117 / 4117 2868 / 2868 Output Total 1050 / 1050 3125 / 3125 Balance 836 / 836 3067 / 3067 -257 / -257 Weight 230 lb 2 oz 235 lb 232 lb 7 oz - Constitutional no acute distress - *Routine HEENT Exam Head: Present: normocephalic Eye: Present: other ENT: Present: mucous membranes moist - *Routine Neck Exam Present: supple. Absent: lymphadenopathy - *Routine Respiratory Exam Present: CTA bilaterally - *Routine Cardiovascular Exam Present: RRR - *Routine Abdominal Exam Present: soft, normoactive bowel sounds, tenderness, wound - *Routine Extremities Exam Present: normal capillary refill. Absent: cyanosis, clubbing, edema - *Routine Skin Exam Present: warm. Absent: rash Comments: midline incision with stables present no redness or drainage - *Routine Neurological Exam Present: alert, oriented X3 - Routine Psychiatric Exam Present: normal affect Assessment and Plan (1) Anemia Status: Acute Qualifiers: Anemia type: unspecified type Qualified Code(s): D64.9 - Anemia, unspecified Category: Medical Code(s): D64.9 - Anemia, unspecified (2) Occult blood positive stool Status: Acute Category: Medical Code(s): R19.5 - Other fecal abnormalities (3) Abdominal pain Status: Acute Qualifiers: Abdominal location: epigastric Qualified Code(s): R10.13 - Epigastric pain Category: Medical Code(s): R10.9 - Unspecified abdominal pain (4) CVA (cerebral vascular accident) Status: Acute Qualifiers: CVA mechanism: unspecified Qualified Code(s): I63.9 - Cerebral infarction, unspecified Category: Medical Code(s): I63.9 - Cerebral infarction, unspecified (5) Chest pain Status: Acute Qualifiers: Chest pain type: precordial pain Qualified Code(s): R07.2 - Precordial pain Category: Medical Code(s): R07.9 - Chest pain, unspecified (6) Near syncope Status: Acute Category: Medical Code(s): R55 - Syncope and collapse (7) Pulmonary HTN Status: Acute Category: Medical Code(s): I27.20 - Pulmonary hypertension, unspecified (8) A-fib Status: Chronic Qualifiers: Atrial fibrillation type: paroxysmal Qualified Code(s): I48.0 - Paroxysmal atrial fibrillation Category: Medical Code(s): I48.91 - Unspecified atrial fibrillation (9) CAD (coronary artery disease) Status: Chronic Qualifiers: Coronary Disease-Associated Artery/Lesion type: unspecified vessel or lesion type [place] vs. tra
--- NOTE | 2020-10-03 15:03 | PC.NURSE ---
8290 - Spoke to Dr. Mckeon about pt. Pt has had 0ml residual @ q4h checks, but has had 450 mls of drk green gastric contents out into drainage bag. Pt denies nausea/vomiting, reports that he continue to pass flatus. Pt drowsy, easily awakens and is able to answer questions appropriately but falls back to sleep shortly after. Staff have worked w/ pt throughout the day and attempted to ambulate pt but feel he is not awake enough to get up safely. All of this conveyed to Dr. Mckeon, states that he feels it is still okay pull NGT and introduce clear liquids, no carb, slowly. New order to DC pain meds, would like PCP to order new pain medication as they see fit. would also like for PT to begin working w/ pt. 0917 - Spoke to Rissa Null APRN, pt has a non-productive junky cough, CXR ordered. States she will speak to Dr. Bowden about pain med management.
--- NOTE | 2020-10-03 15:07 | XR_ITS ---
PROCEDURE: XR CHEST PORTABLE CLINICAL HISTORY: cough COMPARISON: CR XR CHEST PORTABLE from 08/17/2020 CR XR CHEST 2V from 08/26/2020 CR XR CHEST PORTABLE from 09/23/2020 FINDINGS: Enteric tube is noted with its tip projecting over the gastroesophageal junction. Advancing the tube is recommended. Subsegmental consolidation is noted in the right mid and lower zones. Possible small to moderate right effusion. No lobar consolidation or pneumothorax. Cardiomegaly is noted. Central pulmonary vasculature is within normal limits. Degenerative changes of the visualized thoracic spine are noted. IMPRESSION: Subsegmental consolidation in the right mid and lower zones. Possible small to moderate right effusion. Cardiomegaly. Enteric tube is noted with its tip at the gastroesophageal junction. Advancing the tube is recommended. Dictated by: Geni Gongora 10/03/2020 16:10 Geni Gongora in OV 10/03/2020 16:10
--- NOTE | 2020-10-03 16:01 | HMH.PTEV ---
Physical Therapy Evaluation Rehab PT IP Evaluation Start: 09/26/20 08:13 Freq: ONCE Status: Complete Protocol: Document 09/26/20 09:00 PHORNE (Rec: 09/26/20 09:02 PHORNE [id number]) Subjective/History History History 70 yoaam adm to [facility] with anemia. He resides at [facility] and is independent with all mobility at baseline. Subjective Subjective POt reports mild SOA with exertion, otherwise feels very good today. Rehab PT IP Eval Objective Appearance Patient Behavior Appropriate Patient Orientation Person,Place,Time Difficulty following instructions none Speech Pattern Clear Ambulation Patient Able to Ambulate Yes Ambulation Observation IP General Gait Pattern Observation No Deviations/Normal Ambulation Distance (feet) 20 Ambulation Assistive Device None Ambulation Ability Supervision/Stand by Balance Ability to Arise Able, w/o using arms Sitting Balance Steady, safe Standing Balance Narrow stance w/o support Dynamic Sitting Balance Ability Good Dynamic Standing Balance Ability Good Transfers Bed Transfer Ability Supervision/Stand by Chair Transfer Ability Supervision/Stand by Sit to Stand Bed Transfer Ability Supervision/Stand by Sit to Stand Chair Transfer Ability Supervision/Stand by ROM All Extremities PT ROM Status WFL MMT All Extremities PT MMT WFL Rehab PT IP prob,goals,plan Problems Date of Evaluation: 09/26/20 Discharge Plan PT Discharge Plan Pt presents at baseline for all mobility at this time, he is appropriate to return to prior living situation once medically stable. G -code Required No Eval Complexity Eval Charge Codes 78295 - Moderate Complexity Rehab PT IP Evaluation Start: 10/03/20 14:57 Freq: ONCE Status: Active Protocol: Document 10/03/20 15:56 PHORNE (Rec: 10/03/20 16:01 PHORNE [id number]) Subjective/History History History 70 yowm adm to [facility] with anemia , now S/P or for removal of colon mass. He lives at personal snf and is generally independent at with all mobility at baseline. He is legally blind. Subjective Subjective
--- NOTE | 2020-10-03 17:26 | PC.NURSE ---
Pt is A+Ox4. Pt has slept t/o most of shift. Pt is able to answer questions appropriately but falls asleep soon after. Pt has not voiced any concerns to nursing staff. Pt was reeducated on use of CORRECTION OFFICER HEAD pump and encouraged to use incentive spirometer this shift. Pt was able to ambulate to chair today with a walker and assist x1. Pt currently sitting up in bed. Call light within reach. Will continue to monitor.
--- NOTE | 2020-10-03 19:18 | PC.NURSE ---
CASING TIER DC'd this shift per MD orders. Pt states pain to be tolerable. Was seen by PT this shift, pt more awake this afternoon than he was this AM and was able to get up w/ assistance x1. He has sat up for majority of chair, tolerating well. NGT was removed w/ MD okay. Clear liquid ordered, pt has tolerated well so far, no complaints of nausea or vomiting. IS encouraged throughout day, IS @ best = 750.
[2020-10-04] VITALS (12 sets, daily range): BP systolic 136–156; BP diastolic 74–102; PULSE 60–89; RESP 16–22; TEMP 36.7–37.2; O2SAT 89–100; BMI 28.3
--- NOTE | 2020-10-04 03:40 | PC.NURSE ---
pt has been up to chair at this time. pt had c/o pain x1 and prn med given per mar. episode of vomiting this shift that was green gastric content. it was a copious amount. prn med was given per may. iv patent and infusing per order. pt currently laughing and talking with staff. vss. will continue to monitor pt condition
--- NOTE | 2020-10-04 08:26 | HMH.GSPN ---
Subjective Patient reports: feels better, flatus (He states that he is still passing quite a bit of gas ), no bowel movement Narrative: He seems much more conversant and states that he feels better today . He did have some nausea overnight. He seems to believe that the Jell-O caused the problem . Now working with physical therapy and moving better . 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 He has continued to pass flatus but did have some nausea overnight. He believes the Jell-O caused the problem . Slowly/cautiously advance to full liquids with Boost/Ensure and homemade protein shakes (14) Physical deconditioning Status: Acute Assessment and plan: Continue physical therapy Exam Vital signs and Labs for Last 24 Hours: Temp Pulse Resp BP Pulse Ox 98.8 F 67 18 149/95 H 96 10/04/20 07:38 10/04/20 07:38 10/04/20 07:38 10/04/20 07:38 10/04/20 07:38 I & O for Last 24 hours: Intake & Output 10/01/20 10/02/20 10/03/20 10/04/20 11:59 11:59 11:59 11:59 Intake Total 861 / 861 4117 / 4117 2868 / 2868 1786 / 1786 Output Total 1050 / 1050 3125 / 3125 2550 / 2550 Balance 836 / 836 3067 / 3067 -257 / -257 -764 / -764 Weight 230 lb 2 oz 235 lb 232 lb 7 oz 232 lb 2 oz - Constitutional no acute distress - *Routine Respiratory Exam Absent: respiratory distress - *Routine Cardiovascular Exam Present: RRR - *Routine Abdominal Exam Present: soft
--- NOTE | 2020-10-04 10:54 | HMH.ACPN2 ---
Internal Medicine - PN: Subj *Date: 10/04/20 *Time: 08:40 Interval history: pt sitting up in chair, c/o pain. Exam Vital signs and Labs for Last 24 Hours: Temp Pulse Resp BP Pulse Ox 98.8 F 70 20 149/95 H 89 L 10/04/20 07:38 10/04/20 08:00 10/04/20 08:00 10/04/20 07:38 10/04/20 08:00 I & O for Last 24 hours: Intake & Output 10/01/20 10/02/20 10/03/20 10/04/20 11:59 11:59 11:59 11:59 Intake Total 861 / 861 4117 / 4117 2868 / 2868 1786 / 1786 Output Total 1050 / 1050 3125 / 3125 2550 / 2550 Balance 836 / 836 3067 / 3067 -257 / -257 -764 / -764 Weight 230 lb 2 oz 235 lb 232 lb 7 oz 232 lb 2 oz - Constitutional no acute distress - *Routine HEENT Exam Head: Present: normocephalic Eye: Present: other ENT: Present: mucous membranes moist Comments: blind - *Routine Neck Exam Present: supple. Absent: lymphadenopathy - *Routine Respiratory Exam Present: CTA bilaterally - *Routine Cardiovascular Exam Present: RRR - *Routine Abdominal Exam Present: soft, normoactive bowel sounds, tenderness Comments: incision to midline with domingo - *Routine Extremities Exam Present: normal capillary refill. Absent: cyanosis, clubbing, edema - *Routine Skin Exam Present: warm. Absent: rash Comments: incision to midline stables present - *Routine Neurological Exam Present: alert, oriented X3 - Routine Psychiatric Exam Present: normal affect Assessment and Plan (1) Anemia Status: Acute Qualifiers: Anemia type: unspecified type Qualified Code(s): D64.9 - Anemia, unspecified Category: Medical Code(s): D64.9 - Anemia, unspecified (2) Occult blood positive stool Status: Acute Category: Medical Code(s): R19.5 - Other fecal abnormalities (3) Abdominal pain Status: Acute Qualifiers: Abdominal location: epigastric Qualified Code(s): R10.13 - Epigastric pain Category: Medical Code(s): R10.9 - Unspecified abdominal pain (4) CVA (cerebral vascular accident) Status: Acute Qualifiers: CVA mechanism: unspecified Qualified Code(s): I63.9 - Cerebral infarction, unspecified Category: Medical Code(s): I63.9 - Cerebral infarction, unspecified (5) Chest pain Status: Acute Qualifiers: Chest pain type: precordial pain Qualified Code(s): R07.2 - Precordial pain Category: Medical Code(s): R07.9 - Chest pain, unspecified (6) Near syncope Status: Acute Category: Medical Code(s): R55 - Syncope and collapse (7) Pulmonary HTN Status: Acute Category: Medical Code(s): I27.20 - Pulmonary hypertension, unspecified (8) A-fib Status: Chronic Qualifiers: Atrial fibrillation type: paroxysmal Qualified Code(s): I48.0 - Paroxysmal atrial fibrillation Category: Medical Code(s): I48.91 - Unspecified atrial fibrillation (9) CAD (coronary artery disease) Status: Chronic Qualifiers: Coronary Disease-Associated Artery/Lesion type: unspecified vessel or lesion type [place] vs. transplanted heart: [place] heart Associated angina: with stable angina Qualified Code(s): I25.118 - Atherosclerotic heart disease of [place] coronary artery with other forms of angina pectoris Category: Medical Code(s): I25.10 - Atherosclerotic heart disease of [place] coronary artery without angina pectoris (10) Obesity (BMI 30.0-34.9) Status: Chronic Category: Medical Code(s): E66.9 - Obesity, unspecified (11) Visual impairment Status: Chronic Category: Medical Code(s): H54.7 - Unspecified visual loss (12) Cecum mass Status: Acute Category: Medical Code(s): K63.89 - Other specified diseases of intestine (13) Postoperative ileus Status: Acute Category: Medical Code(s): K91.89 - Other postprocedural complications and disorders of digestive system; K56.7 - Ileus, unspecified (14) Physical deconditioning Status: Acute Category: Medical Code(s): R53.81 - Other malaise
--- NOTE | 2020-10-04 17:04 | XR_ITS ---
PROCEDURE INFORMATION: Exam: XR Complete Acute Abdomen Series Including Chest Exam date and time: 10/04/2020 5:04 PM Age: 70 years old Clinical indication: Condition or disease; Intestinal condition; Obstruction; Nausea; Additional info: Nausea / ileus TECHNIQUE: Imaging protocol: XR complete acute abdomen series, including 2 or more views of the abdomen and a single view chest. COMPARISON: CT ABDOMEN PELVIS W CON 09/26/2020 4:53 PM FINDINGS: Lungs: Hypoinflated lungs with bilateral perihilar and bibasilar atelectasis. Pleural spaces: Small bilateral pleural effusions. Heart/Mediastinum: Heart is mildly enlarged. Aortic atherosclerosis. Gastrointestinal tract: Abnormally dilated loops of small bowel are present, measuring up to 4.2 cm in caliber. There is mild gaseous distention of the colon, without overt dilation. Intraperitoneal space: No pneumoperitoneum. Organs: Bilateral renal calculi. Bones/joints: Scattered degenerative changes including multilevel spondylosis. Soft tissues: Midline abdominal surgical domingo. IMPRESSION: 1. Dilated loops of small bowel, without overt colonic dilation, suspicious for small bowel obstruction. Differential would include a small-bowel predominant ileus. CT could further evaluate as indicated. 2. Hypoinflated lungs with scattered atelectasis. Small bilateral pleural effusions.
--- NOTE | 2020-10-04 17:49 | PC.NURSE ---
Pt is alert and oriented x4. Pt has been pleasant t/o shift. Pt has had multiple c/o n+v t/o shift. Pt has been administered Zofran per MAY. Pt reports it makes me feel better but then i get bad again. Pt was able to ambulate to chair and bed today with 1x assist. Jason catheter in place draining clear, michael colored urine by gravity. Pt had loose watery dark green BM during this shift. Pt is currently sitting up in bed watching tv. Call light within reach. Will continue to monitor.
[2020-10-04 18:44] LABS: Basophils % 0.5 % (0.1-2.0); Eosinophils # 0.2 K/mm3 (0.0-0.4); Hematocrit 35.4 % (42.0-52.0); Hemoglobin 11.4 g/dL (14.1-18.0); Lymphocytes # 0.8 K/mm3 (0.7-4.5); Lymphocytes % 9.5 % (10-50); Mean Corpuscular HGB Conc 32.4 g/dL (31.8-35.4); Mean Corpuscular Volume 83.4 fl (80-94); Mean Platelet Volume 7.8 fl (7.4-10.4); Monocytes # 0.5 K/mm3 (0.1-1.0); Monocytes % 5.2 % (1.7-9.3); Neutrophils # 7.3 K/mm3 (1.8-7.8); Neutrophils % 82.8 % (37.0-80.0); Platelet Count 362 K/mm3 (142-424); Red Blood Count 4.24 M/mm3 (4.60-6.20); Red Cell Distribution Width 15.9 % (11.5-17.5); White Blood Count 8.8 K/mm3 (4.8-10.8)
[2020-10-04 18:52] LABS: Chloride 105 mmol/L (98-107)
[2020-10-04 18:53] LABS: Potassium 3.9 mmoL/L (3.5-5.1); Sodium 141 mmol/L (136-145)
[2020-10-04 18:56] LABS: Anion Gap 13.9 mEq/L (5-15); Blood Urea Nitrogen 13 mg/dl (9-20); Carbon Dioxide 26 mmol/L (22.0-30.0); Creatinine Clearance Estimated 58 mL/min (50-200); Estimated Glomerular Filt Rate 40 ml/min (>60); GFR (African American) 48 ML/MIN (>60); Glucose 93 mg/dl (74-100)
[2020-10-04 18:57] LABS: Calcium 9.2 mg/dl (8.4-10.2)
--- NOTE | 2020-10-04 20:47 | PC.NURSE ---
1529 - Spoke w/ Dr Mckeon @ this time, notified that pt had been nauseous since lunch time, prior to notification pt had began vomiting. Pt had about 32 oz of dark green emesis out. states to make pt NPO, clears may be given @ nurses discretion. to order abd films and gastrogafin.
--- NOTE | 2020-10-04 21:35 | PC.NURSE ---
patient refusing to drink gastrograffin due to taste. explained importance of contrast and the need to repeat it if not done correctly the first time. bargained with patient to drink contrast and rinse mouth with mouthwash.
--- NOTE | 2020-10-04 22:08 | PC.NURSE ---
notified dr. key of failure to drink gastrograffin, order received to allow patient to finish overnight and just do xray in am. cancel 2200 xray.
[2020-10-05] VITALS (8 sets, daily range): BP systolic 98–154; BP diastolic 64–91; PULSE 56–82; RESP 16–20; TEMP 36.8–37.5; O2SAT 89–98; BMI 27.3
--- NOTE | 2020-10-05 00:14 | PC.NURSE ---
patient vomited 1100 ml of bright green, thin liquid emesis. zofran ivp given. discussed need for ngt, patient declining at this time time, would like to see if medication would work first.
--- NOTE | 2020-10-05 03:44 | PC.NURSE ---
patient awoke complaining of nausea, zofran ivp given. have been unable to get any additional gastrograffin down due to patietn refusing because of taste and nausea and vomiting
--- NOTE | 2020-10-05 06:00 | XR_ITS ---
PROCEDURE INFORMATION: Exam: XR Complete Acute Abdomen Series Including Chest Exam date and time: 10/05/2020 6:00 AM Age: 70 years old Clinical indication: Device placement; Gi device; Nasogastric tube; Prior surgery; Surgery date: Post-operative (0-2 days); Patient HX: Nausea/ ileus. PT was supposed to drink gastro, PT unsuccessful. Ng tube place around 6:30 am; Additional info: Nausea / ileus TECHNIQUE: Imaging protocol: XR complete acute abdomen series, including 2 or more views of the abdomen and a single view chest. COMPARISON: CR XR ACUTE ABDOMEN SERIES 10/04/2020 5:42 PM FINDINGS: Tubes, catheters and devices: An enteric feeding tube is present, with its tip located in the stomach in good position. [place] overlie the right abdomen consistent with prior surgery Lungs: Opacities in right base may represent atelectasis or pneumonia.. Pleural spaces: Normal. No pleural effusions. No pneumothorax. Heart/Mediastinum: Cardiomegaly Gastrointestinal tract: Again noted are multiple loops of mildly dilated small bowel which may represent obstruction or ileus. No definite improvement in the degree of dilatation compared to the prior study. Intraperitoneal space: Normal. No free air. Organs: Calcifications overlie both kidneys and may represent renal calculi. Bones/joints: Normal. No acute fracture. Soft tissues: Normal. IMPRESSION: 1. Opacities in right base may represent atelectasis or pneumonia.. 2. Again noted are multiple loops of mildly dilated small bowel which may represent obstruction or ileus. No definite improvement in the degree of dilatation compared to the prior study. 3. Calcifications overlie both kidneys and may represent renal calculi.
--- NOTE | 2020-10-05 06:25 | PC.NURSE ---
0530 patient awoke vomiting, not due for zofran at this time. dr. key paged, new order received to place ngt. immediate 500 ml return in suction of water green emesis. patient tolerated procedure without incident. 16 cam[place]onian ngt placed and secured at 80 cm. auscultated for position, aspirate obtained. dr. key informed of approximate 2000 ml of emesis this shift and inability to consume gastrograffin.
--- NOTE | 2020-10-05 07:00 | CT_ITS ---
PROCEDURE INFORMATION: Exam: CT Abdomen And Pelvis Without Contrast Exam date and time: 10/05/2020 7:00 AM Age: 70 years old Clinical indication: Nausea; Prior surgery; Surgery date: 3-7 days post-operative; Patient HX: Post -op ileus vs obstuction. Po contrast only; Additional info: Post-op ileus vs obstruction TECHNIQUE: Imaging protocol: Computed tomography of the abdomen and pelvis without contrast. Radiation optimization: All CT scans at this facility use at least one of these dose optimization techniques: automated exposure control; mA and/or kV adjustment per patient size (includes targeted exams where dose is matched to clinical indication); or iterative reconstruction. Other contrast: Oral; COMPARISON: CT ABDOMEN PELVIS W CON 09/26/2020 4:53 PM FINDINGS: Lungs: Consolidation in the right middle lobe and right lower lobe may represent atelectasis or pneumonia.. Pleural spaces: Moderate right pleural effusion.. Small bilateral pleural effusions. Liver: 15 mm simple cyst in the dome of the liver. 12 mm simple cyst in the right lobe of the liver. . No follow-up imaging recommended . Gallbladder and bile ducts: Normal. No calcified stones. No ductal dilation. Pancreas: Normal. No ductal dilation. Spleen: Normal. No splenomegaly. Adrenal glands: Normal. No mass. Kidneys and ureters: Stable calcifications in both kidneys. Multiple bilateral simple renal cysts are stable. . No follow-up imaging recommended . Stomach and bowel: Multiple loops of dilated small bowel. There is abrupt transition in the left upper quadrant of the abdomen. Series 3, image 68. Series 601 image 21-33 . Contrast extends distal to this segment and there are multiple dilated loops of bowel distal to this narrowing. Consequently this may represent partial or intermittent obstruction.. Appendix: No evidence of appendicitis. Intraperitoneal space: Mild amount of free fluid in the pelvis. Vasculature: Coronary artery calcifications may indicate coronary artery disease. Lymph nodes: Unremarkable. No enlarged lymph nodes. Urinary bladder: Jason catheter in the bladder. Reproductive: Unremarkable as visualized. Bones/joints: Unremarkable. No acute fracture. Soft tissues: Surgical clips in the midline consistent with recent surgery. IMPRESSION: 1. Multiple loops of dilated small bowel. There is abrupt transition in the left upper quadrant of the abdomen. Series 3, image 68. Series 601 image 21-33 . Contrast extends distal to this segment and there are multiple dilated loops of bowel distal to this narrowing. Consequently this may represent partial or intermittent obstruction.. 2. Moderate right pleural effusion.. 3. Consolidation in the right middle lobe and right lower lobe may represent atelectasis or pneumonia..
--- NOTE | 2020-10-05 07:05 | PC.NURSE ---
nurse olga reported a medium sized black, liquid stool
--- NOTE | 2020-10-05 10:17 | HMH.ACPN2 ---
Internal Medicine - PN: Subj *Date: 10/06/20 *Time: 08:55 Interval history: pt with ng tube en place - awake - some pain Exam Vital signs and Labs for Last 24 Hours: Temp Pulse Resp BP Pulse Ox 99.5 F 68 18 131/85 94 L 10/05/20 04:00 10/05/20 04:00 10/05/20 07:52 10/05/20 04:00 10/05/20 04:00 Laboratory Results - last 24 hr 10/04/20 18:30: WBC 8.8, RBC 4.24 L, Hgb 11.4 L, Hct 35.4 L, MCV 83.4, MCH 27.0, MCHC 32.4, RDW 15.9, Plt Count 362 D, MPV 7.8, Neut % (Auto) 82.8 H, Lymph % (Auto) 9.5 L, [place] % (Auto) 5.2, Eos % (Auto) 2.0, Baso % (Auto) 0.5, Neut # (Auto) 7.3, Lymph # (Auto) 0.8, [place] # (Auto) 0.5, Eos # (Auto) 0.2, Baso # (Auto) 0.0 10/04/20 18:30: Sodium 141, Potassium 3.9, Chloride 105, Carbon Dioxide 26, Anion Gap 13.9, BUN 13 D, Creatinine 1.70 H, Estimated Creat Clear 58, Estimated GFR 40 L, Est GFR ( Amer) 48 L, Glucose 93, Calcium 9.2 I & O for Last 24 hours: Intake & Output 10/02/20 10/03/20 10/04/20 10/05/20 11:59 11:59 11:59 11:59 Intake Total 4117 / 4117 2868 / 2868 1786 / 1786 1654 / 1654 Output Total 1050 / 1050 3125 / 3125 2550 / 2550 3301 / 3301 Balance 3067 / 3067 -257 / -257 -764 / -764 -1647 / -1647 Weight 235 lb 232 lb 7 oz 232 lb 2 oz 224 lb 0.2 oz - Constitutional no acute distress - *Routine HEENT Exam Head: Present: normocephalic Eye: Present: EOMI, PERRL ENT: Present: mucous membranes dry, other (ng tube) - *Routine Neck Exam Absent: JVD - *Routine Respiratory Exam Present: decreased breath sounds - *Routine Cardiovascular Exam Present: RRR - *Routine Abdominal Exam Present: soft - *Routine Extremities Exam Present: full ROM. Absent: calf tenderness - *Routine Skin Exam Present: intact - *Routine Neurological Exam Present: alert, CN II-XII intact - Routine Psychiatric Exam Present: normal affect Assessment and Plan (1) Anemia Status: Acute Qualifiers: Anemia type: unspecified type Qualified Code(s): D64.9 - Anemia, unspecified Category: Medical Code(s): D64.9 - Anemia, unspecified (2) Occult blood positive stool Status: Acute Category: Medical Code(s): R19.5 - Other fecal abnormalities (3) Abdominal pain Status: Acute Qualifiers: Abdominal location: epigastric Qualified Code(s): R10.13 - Epigastric pain Category: Medical Code(s): R10.9 - Unspecified abdominal pain (4) CVA (cerebral vascular accident) Status: Acute Qualifiers: CVA mechanism: unspecified Qualified Code(s): I63.9 - Cerebral infarction, unspecified Category: Medical Code(s): I63.9 - Cerebral infarction, unspecified (5) Chest pain Status: Acute Qualifiers: Chest pain type: precordial pain Qualified Code(s): R07.2 - Precordial pain Category: Medical Code(s): R07.9 - Chest pain, unspecified (6) Near syncope Status: Acute Category: Medical Code(s): R55 - Syncope and collapse (7) Pulmonary HTN Status: Acute Category: Medical Code(s): I27.20 - Pulmonary hypertension, unspecified (8) A-fib Status: Chronic Qualifiers: Atrial fibrillation type: paroxysmal Qualified Code(s): I48.0 - Paroxysmal atrial fibrillation Category: Medical Code(s): I48.91 - Unspecified atrial fibrillation (9) CAD (coronary artery disease) Status: Chronic Qualifiers: Coronary Disease-Associated Artery/Lesion type: unspecified vessel or lesion type [place] vs. transplanted heart: [place] heart Associated angina: with stable angina Qualified Code(s): I25.118 - Atherosclerotic heart disease of [place] coronary artery with other forms of angina pectoris Category: Medical Code(s): I25.10 - Atherosclerotic heart disease of [place] coronary artery without angina pectoris (10) Obesity (BMI 30.0-34.9) Status: Chronic Category: Medical Code(s): E66.9 - Obesity, unspecified (11) Visual impairment Status: Chronic Category: Medical Code(s): H54.7 - Unspecified visua
[2020-10-05 10:55] LABS: Basophils % 0.4 % (0.1-2.0); Eosinophils # 0.3 K/mm3 (0.0-0.4); Eosinophils % 2.7 % (0.1-12.0); Hematocrit 35.6 % (42.0-52.0); Hemoglobin 11.4 g/dL (14.1-18.0); Lymphocytes # 1.2 K/mm3 (0.7-4.5); Lymphocytes % 12.1 % (10-50); Mean Corpuscular Hemoglobin 26.8 pg (27.0-31.2); Mean Corpuscular Volume 83.8 fl (80-94); Mean Platelet Volume 8.4 fl (7.4-10.4); Monocytes # 0.6 K/mm3 (0.1-1.0); Monocytes % 5.8 % (1.7-9.3); Neutrophils # 7.9 K/mm3 (1.8-7.8); Platelet Count 398 K/mm3 (142-424); Red Blood Count 4.25 M/mm3 (4.60-6.20); Red Cell Distribution Width 15.9 % (11.5-17.5)
[2020-10-05 10:59] LABS: Chloride 104 mmol/L (98-107); Sodium 140 mmol/L (136-145)
[2020-10-05 11:00] LABS: Potassium 4.3 mmoL/L (3.5-5.1)
[2020-10-05 11:03] LABS: Anion Gap 10.3 mEq/L (5-15); Blood Urea Nitrogen 14 mg/dl (9-20); Calcium 9.2 mg/dl (8.4-10.2); Carbon Dioxide 30 mmol/L (22.0-30.0); Creatinine Clearance Estimated 56 mL/min (50-200); Estimated Glomerular Filt Rate 40 ml/min (>60); GFR (African American) 48 ML/MIN (>60); Glucose 104 mg/dl (74-100)
--- NOTE | 2020-10-05 11:27 | HMH.GSPN ---
Subjective Patient reports: flatus, bowel movement Narrative: Significant nausea with emesis overnight. Nasogastric tube in place. Patient states that he feels a little better right now . He continues to have moderate pain. He continues to pass flatus and states that he has had a small bowel movement . Progress Note: A&P (1) Anemia Status: Acute (2) Occult blood positive stool Status: Acute (3) Abdominal pain Status: Acute (4) CVA (cerebral vascular accident) Status: Acute (5) Chest pain Status: Acute (6) Near syncope Status: Acute (7) Pulmonary HTN Status: Acute (8) A-fib Status: Chronic (9) CAD (coronary artery disease) Status: Chronic (10) Obesity (BMI 30.0-34.9) Status: Chronic (11) Visual impairment Status: Chronic (12) Postoperative ileus Status: Acute (13) Physical deconditioning Status: Acute (14) Small bowel obstruction, partial Status: Acute Assessment and plan: The patient continues to pass flatus and has had a bowel movement. However, he has had increasing nausea/emesis overnight. Radiographic evidence of partial/intermittent obstruction versus significant ileus noted. Continue nasogastric decompression Likely small bowel follow-through tomorrow Increase ambulation May require repeat laparotomy (pending results of above and overall changes in condition) (15) Malignant neoplasm of colon Status: Acute Assessment and plan: Ongoing evaluation/management once clinically stable. (16) Malnutrition Status: Acute Assessment and plan: May require TPN/PPN Exam Vital signs and Labs for Last 24 Hours: Temp Pulse Resp BP Pulse Ox 99.5 F 68 18 131/85 94 L 10/05/20 04:00 10/05/20 04:00 10/05/20 07:52 10/05/20 04:00 10/05/20 04:00 Laboratory Results - last 24 hr 10/04/20 18:30: WBC 8.8, RBC 4.24 L, Hgb 11.4 L, Hct 35.4 L, MCV 83.4, MCH 27.0, MCHC 32.4, RDW 15.9, Plt Count 362 D, MPV 7.8, Neut % (Auto) 82.8 H, Lymph % (Auto) 9.5 L, [place] % (Auto) 5.2, Eos % (Auto) 2.0, Baso % (Auto) 0.5, Neut # (Auto) 7.3, Lymph # (Auto) 0.8, [place] # (Auto) 0.5, Eos # (Auto) 0.2, Baso # (Auto) 0.0 10/04/20 18:30: Sodium 141, Potassium 3.9, Chloride 105, Carbon Dioxide 26, Anion Gap 13.9, BUN 13 D, Creatinine 1.70 H, Estimated Creat Clear 58, Estimated GFR 40 L, Est GFR ( Amer) 48 L, Glucose 93, Calcium 9.2 10/05/20 10:46: WBC 10.0, RBC 4.25 L, Hgb 11.4 L, Hct 35.6 L, MCV 83.8, MCH 26.8 L, MCHC 32.0, RDW 15.9, Plt Count 398, MPV 8.4, Neut % (Auto) 79.0, Lymph % (Auto) 12.1, [place] % (Auto) 5.8, Eos % (Auto) 2.7, Baso % (Auto) 0.4, Neut # (Auto) 7.9 H, Lymph # (Auto) 1.2, [place] # (Auto) 0.6, Eos # (Auto) 0.3, Baso # (Auto) 0.0 10/05/20 10:46: Sodium 140, Potassium 4.3, Chloride 104, Carbon Dioxide 30, Anion Gap 10.3, BUN 14, Creatinine 1.70 H, Estimated Creat Clear 56, Estimated GFR 40 L, Est GFR ( Amer) 48 L, Glucose 104 H, Calcium 9.2 I & O for Last 24 hours: Intake & Output 10/02/20 10/03/20 10/04/20 10/05/20 11:59 11:59 11:59 11:59 Intake Total 4117 / 4117 2868 / 2868 1786 / 1786 1654 / 1654 Output Total 1050 / 1050 3125 / 3125 2550 / 2550 3301 / 3301 Balance 3067 / 3067 -257 / -257 -764 / -764 -1647 / -1647 Weight 235 lb 232 lb 7 oz 232 lb 2 oz 224 lb 0.2 oz Radiology Reports for the Last 24 Hours: Plain films and CT scan from earlier today show changes consistent with partial/intermittent obstruction versus significant postoperative ileus. He does have an area of transition in the left upper quadrant; however, dilated small bowel distal to the site is noted. Some air noted within colon.
--- NOTE | 2020-10-05 15:25 | PC.NURSE ---
Addendum entered by Marianna Proctor RN 10/05/20 18:49: PT incontinent of two moderate size green watery stools this shift. Original Note: Pt ambulated down hallway using walker and standby assistance of staff, tolerated well. Pt did report feeling a little tired , but said it felt good to get up and walk around. He has been in good spirits this shift, singing and cutting up w/ staff. He sat up in recliner this AM as well. Continues to report passing gas, no BM thus far. Abdominal midline incision w/ domingo open to air, no drainage present. Half of domingo removed per Dr. Mckeon, steri strips applied as well. NGT to LWS, has had 450 cc of dark green emesis out thus far. He is resting in bed. No needs voiced @ this time. Bed safety in place. Call emily w/in reach.
[2020-10-06] VITALS: BP 158/85; PULSE 61; RESP 20; TEMP 37.1; O2SAT 97
--- NOTE | 2020-10-06 03:08 | PC.NURSE ---
shift summary pt is alert and oriented X4. pts lung sounds are diminished with sats maintained 90% or above on 2L via NC. midline incision is open to air with no drainage. NG tube in place in right nare and on low continuous suction pt had 1200 ml of output this shift. pt has rested comfortably for most of the shift. pt has tolerated taking his meds well. pt denies any pain, nausea, or vomiting at this time. no acute changes will continue to monitor.
[2020-10-06 04:00] VITALS: BP 149/91; PULSE 73; RESP 22; TEMP 37.7; O2SAT 93
[2020-10-06 05:00] VITALS: BMI 26.6
--- NOTE | 2020-10-06 06:00 | XR_ITS ---
PROCEDURE: XR ACUTE ABDOMEN SERIES CLINICAL INDICATION: partial SBO vs post-op ileus COMPARISON: No exams were available for comparison FINDINGS: Frontal view of the chest shows cardiomegaly with atelectatic changes in the right lower lobe with elevated right hemidiaphragm not significantly changed. Patchy density is present in the left midlung and may be related to an area of atelectasis or infiltrate. Upright and supine views of the abdomen show a nasogastric tube in place with the tip in the region the antrum of the stomach. Pneumoperitoneum once again noted. There gas-filled loops of small and large bowel. Fluid-filled small bowel loops are present in the right mid abdominal region. Skin clips are present in the abdominal area centrally on the right. Bilateral nephrolithiasis is present. IMPRESSION: 1. Right lower lobe atelectasis unchanged. 2. Patchy density in the left midlung consistent with developing pneumonia or atelectatic change. 3. Postoperative pneumoperitoneum 4. The gas and fluid-filled loops of small bowel with some large bowel gas is well. These findings may be related to postoperative ileus or small bowel obstruction overall not significantly changed Dictated by: Edwar Mckay MD 10/06/2020 07:46 Edwar Mckay MD in [place] 10/06/2020 07:46
--- NOTE | 2020-10-06 06:06 | FL_ITS ---
PROCEDURE: FL SMALL BOWEL FOLLOW THROUGH ACUTE ABDOMINAL SERIES CLINICAL INDICATION: ileus vs partial/intermittent sbo COMPARISON: CR XR ACUTE ABDOMEN SERIES from 10/06/2020 CR XR ACUTE ABDOMEN SERIES from 10/07/2020 FINDINGS: Fluoroscopy time: 4.38 minutes. [employer] exam demonstrates a nasogastric tube present with tip in the region the descending portion of the duodenum. Mixture of barium and Gastrografin was instilled through the NG tube. Multiple flat KUBs are obtained along with spot views and fluoroscopic exam. There is distension of the small bowel throughout. There was slightly hyperactive peristalsis of the jejunum. Fluoroscopic images however failed to demonstrate an area of obstruction. Delayed images are obtained up to 6 hours following the original installation of contrast. No transition point was identified within the proximal and mid small bowel. There was dilution of the contrast into the distal small bowel. There is decreased peristalsis in the distal small bowel. ACUTE ABDOMINAL SERIES was performed the following morning approximately 20 hours after the installation of contrast through the in G-tube. At this time there was contrast which was diluted into the distal small bowel. There is also contrast within the nondistended colon all the way to the rectum. The anastomotic site was not well delineated by contrast. The patient will be re-examined with fluoroscopy and addendum given once this is performed. Frontal view of the chest demonstrates atelectatic change in the right lung base. The patchy density in the left midlung is no longer apparent and may have been due to an area of atelectasis. Pneumoperitoneum is once again noted. PICC line is present with tip in the region the SVC. Nasogastric tube is present. The tip is in the region of the descending portion of the duodenum. There is mild cardiomegaly. Left basilar atelectasis has improved. IMPRESSION: Diffuse dilatation of the small bowel as described above. No definite transition point is apparent. The anastomotic site is not identified. Contrast is present within the colon all the way to the rectum. The jejunum and proximal ileum shows increased peristalsis while the mid and distal ileum shows hypoactive peristalsis. These findings suggest a distal small-bowel ileus. Cannot exclude a partial obstruction at the anastomotic site. Addendum will be added following additional fluoroscopic evaluation. Dictated by: Edwar Mckay MD 10/07/2020 07:37 Edwar Mckay MD in [place] 10/07/2020 07:37
--- NOTE | 2020-10-06 06:41 | P.PN_ITS ---
Subjective Narrative: Per nursing staff, the patient continues to have high nasogastric output and becomes nauseous when the NG becomes dysfunctional. He states that he has continued to pass flatus. He claims to feel about the same . Progress Note: A&P (1) Anemia Status: Acute (2) Occult blood positive stool Status: Acute (3) Abdominal pain Status: Acute (4) CVA (cerebral vascular accident) Status: Acute (5) Chest pain Status: Acute (6) Near syncope Status: Acute (7) Pulmonary HTN Status: Acute (8) A-fib Status: Chronic (9) CAD (coronary artery disease) Status: Chronic (10) Obesity (BMI 30.0-34.9) Status: Chronic (11) Visual impairment Status: Chronic (12) Postoperative ileus Status: Acute (13) Physical deconditioning Status: Acute (14) Small bowel obstruction, partial Status: Acute Assessment and plan: I have discussed the patient's flat/upright films and CT scan from yesterday with radiology. The patient does have distended small bowel loops; however, no sign of complete obstruction is seen. He has distended bowel loops beyond the point of possible transition . In addition, he has air within the colon. Per radiology, these changes are consistent with either partial/intermittent obstruction or profound ileus. Small bowel follow-through today Pending results of the patient's small bowel series and pending his overall clinical status, repeat laparotomy may be necessary. He is tentatively scheduled for repeat laparotomy at 6:00 tomorrow morning. (15) Malignant neoplasm of colon Status: Acute (16) Malnutrition Status: Acute Exam Vital signs and Labs for Last 24 Hours: Temp Pulse Resp BP Pulse Ox 99.9 F H 73 22 149/91 H 93 L 10/06/20 04:00 10/06/20 04:00 10/06/20 04:00 10/06/20 04:00 10/06/20 04:00 Laboratory Results - last 24 hr 10/05/20 10:46: WBC 10.0, RBC 4.25 L, Hgb 11.4 L, Hct 35.6 L, MCV 83.8, MCH 26.8 L, MCHC 32.0, RDW 15.9, Plt Count 398, MPV 8.4, Neut % (Auto) 79.0, Lymph % (Auto) 12.1, Schleicher % (Auto) 5.8, Eos % (Auto) 2.7, Baso % (Auto) 0.4, Neut # (Auto) 7.9 H, Lymph # (Auto) 1.2, Schleicher # (Auto) 0.6, Eos # (Auto) 0.3, Baso # (Auto) 0.0 10/05/20 10:46: Sodium 140, Potassium 4.3, Chloride 104, Carbon Dioxide 30, Anion Gap 10.3, BUN 14, Creatinine 1.70 H, Estimated Creat Clear 56, Estimated GFR 40 L, Est GFR ( Amer) 48 L, Glucose 104 H, Calcium 9.2 I & O for Last 24 hours: Intake & Output 10/03/20 10/04/20 10/05/20 10/06/20 11:59 11:59 11:59 11:59 Intake Total 2868 / 2868 1786 / 1786 1654 / 1654 970 / 970 Output Total 3125 / 3125 2550 / 2550 3301 / 3301 2200 / 2200 Balance -257 / -257 -764 / -764 -1647 / -1647 -1230 / -1230 Weight 232 lb 7 oz 232 lb 2 oz 224 lb 0.2 oz 219 lb 0.1 oz - Constitutional no acute distress - *Routine Respiratory Exam Absent: respiratory distress - *Routine Cardiovascular Exam Comments: regular rate - *Routine Abdominal Exam Present: tenderness
[2020-10-06 07:33] LABS: Basophils # 0.1 K/mm3 (0-0.2); Basophils % 0.5 % (0.1-2.0); Eosinophils # 0.4 K/mm3 (0.0-0.4); Eosinophils % 4.1 % (0.1-12.0); Hemoglobin 10.8 g/dL (14.1-18.0); Lymphocytes # 0.9 K/mm3 (0.7-4.5); Lymphocytes % 8.9 % (10-50); Mean Corpuscular Hemoglobin 25.6 pg (27.0-31.2); Mean Corpuscular Volume 85.2 fl (80-94); Mean Platelet Volume 7.4 fl (7.4-10.4); Monocytes # 0.7 K/mm3 (0.1-1.0); Monocytes % 7.1 % (1.7-9.3); Neutrophils # 7.8 K/mm3 (1.8-7.8); Neutrophils % 79.3 % (37.0-80.0); Platelet Count 360 K/mm3 (142-424); Red Blood Count 4.22 M/mm3 (4.60-6.20); Red Cell Distribution Width 15.2 % (11.5-17.5); White Blood Count 9.9 K/mm3 (4.8-10.8)
[2020-10-06 07:47] VITALS: BP 135/82; PULSE 72; RESP 21; TEMP 37.8; O2SAT 94
[2020-10-06 07:56] LABS: Anion Gap 11.1 mEq/L (5-15); Blood Urea Nitrogen 11 mg/dl (9-20); Calcium 8.9 mg/dl (8.4-10.2); Carbon Dioxide 29 mmol/L (22.0-30.0); Chloride 103 mmol/L (98-107); Creatinine Clearance Estimated 59 mL/min (50-200); Estimated Glomerular Filt Rate 43 ml/min (>60); GFR (African American) 52 ML/MIN (>60); Glucose 111 mg/dl (74-100); Potassium 4.1 mmoL/L (3.5-5.1); Sodium 139 mmol/L (136-145)
[2020-10-06 08:00] VITALS: O2SAT 94
--- NOTE | 2020-10-06 08:57 | HMH.ACPN2 ---
Internal Medicine - PN: Subj *Date: 10/06/20 *Time: 21:12 Interval history: still with ng tube Exam Vital signs and Labs for Last 24 Hours: Temp Pulse Resp BP Pulse Ox 100.1 F H 72 21 135/82 94 L 10/06/20 07:47 10/06/20 07:47 10/06/20 07:47 10/06/20 07:47 10/06/20 07:47 Laboratory Results - last 24 hr 10/05/20 10:46: WBC 10.0, RBC 4.25 L, Hgb 11.4 L, Hct 35.6 L, MCV 83.8, MCH 26.8 L, MCHC 32.0, RDW 15.9, Plt Count 398, MPV 8.4, Neut % (Auto) 79.0, Lymph % (Auto) 12.1, Brooks % (Auto) 5.8, Eos % (Auto) 2.7, Baso % (Auto) 0.4, Neut # (Auto) 7.9 H, Lymph # (Auto) 1.2, Brooks # (Auto) 0.6, Eos # (Auto) 0.3, Baso # (Auto) 0.0 10/05/20 10:46: Sodium 140, Potassium 4.3, Chloride 104, Carbon Dioxide 30, Anion Gap 10.3, BUN 14, Creatinine 1.70 H, Estimated Creat Clear 56, Estimated GFR 40 L, Est GFR ( Amer) 48 L, Glucose 104 H, Calcium 9.2 10/06/20 07:07: WBC 9.9, RBC 4.22 L, Hgb 10.8 L, Hct 36.0 L, MCV 85.2, MCH 25.6 L, MCHC 30.0 L, RDW 15.2, Plt Count 360, MPV 7.4, Neut % (Auto) 79.3, Lymph % (Auto) 8.9 L, Brooks % (Auto) 7.1, Eos % (Auto) 4.1, Baso % (Auto) 0.5, Neut # (Auto) 7.8, Lymph # (Auto) 0.9, Brooks # (Auto) 0.7, Eos # (Auto) 0.4, Baso # (Auto) 0.1 10/06/20 07:07: Sodium 139, Potassium 4.1, Chloride 103, Carbon Dioxide 29, Anion Gap 11.1, BUN 11, Creatinine 1.60 H, Estimated Creat Clear 59, Estimated GFR 43 L, Est GFR ( Amer) 52 L, Glucose 111 H, Calcium 8.9 I & O for Last 24 hours: Intake & Output 10/03/20 10/04/20 10/05/20 10/06/20 11:59 11:59 11:59 11:59 Intake Total 2868 / 2868 1786 / 1786 1654 / 1654 970 / 970 Output Total 3125 / 3125 2550 / 2550 3301 / 3301 1500 / 1500 Balance -257 / -257 -764 / -764 -1647 / -1647 -530 / -530 Weight 232 lb 7 oz 232 lb 2 oz 224 lb 0.2 oz 219 lb 0.1 oz - Constitutional no acute distress - *Routine HEENT Exam Head: Present: normocephalic Eye: Present: EOMI, PERRL ENT: Present: other Comments: ng tube - *Routine Neck Exam Present: supple - *Routine Respiratory Exam Present: decreased breath sounds - *Routine Cardiovascular Exam Present: RRR, murmur - *Routine Abdominal Exam Present: soft, tenderness - *Routine Extremities Exam Absent: calf tenderness - *Routine Skin Exam Present: intact - *Routine Neurological Exam Absent: sensory deficit, motor deficit - Routine Psychiatric Exam Present: cooperative Assessment and Plan (1) Anemia Status: Acute Qualifiers: Anemia type: unspecified type Qualified Code(s): D64.9 - Anemia, unspecified Category: Medical Code(s): D64.9 - Anemia, unspecified (2) Occult blood positive stool Status: Acute Category: Medical Code(s): R19.5 - Other fecal abnormalities (3) Abdominal pain Status: Acute Qualifiers: Abdominal location: epigastric Qualified Code(s): R10.13 - Epigastric pain Category: Medical Code(s): R10.9 - Unspecified abdominal pain (4) CVA (cerebral vascular accident) Status: Acute Qualifiers: CVA mechanism: unspecified Qualified Code(s): I63.9 - Cerebral infarction, unspecified Category: Medical Code(s): I63.9 - Cerebral infarction, unspecified (5) Chest pain Status: Acute Qualifiers: Chest pain type: precordial pain Qualified Code(s): R07.2 - Precordial pain Category: Medical Code(s): R07.9 - Chest pain, unspecified (6) Near syncope Status: Acute Category: Medical Code(s): R55 - Syncope and collapse (7) Pulmonary HTN Status: Acute Category: Medical Code(s): I27.20 - Pulmonary hypertension, unspecified (8) A-fib Status: Chronic Qualifiers: Atrial fibrillation type: paroxysmal Qualified Code(s): I48.0 - Paroxysmal atrial fibrillation Category: Medical Code(s): I48.91 - Unspecified atrial fibrillation (9) CAD (coronary artery disease) Status: Chronic Qualifiers: Coronary Disease-Associated Artery/Lesion type: unspecified vessel or lesion type [place] vs. transp
--- NOTE | 2020-10-06 15:06 | XR_ITS ---
PROCEDURE INFORMATION: Exam: XR Chest Exam date and time: 10/06/2020 3:06 PM Age: 70 years old Clinical indication: Device placement; Picc; Additional info: Confirm picc line placement TECHNIQUE: Imaging protocol: XR of the chest. Views: 1 view. COMPARISON: CR XR ACUTE ABDOMEN SERIES 10/05/2020 6:24 AM FINDINGS: Tubes, catheters and devices: Left approach PICC line terminates in the SVC. Gastric suction tube passes beneath the diaphragm and line. It may be doubled over. Suboptimal penetration in this region. Lungs: Bibasilar atelectasis. Pleural spaces: No pneumothorax. Heart/Mediastinum: Unchanged Diaphragm: Elevated right hemidiaphragm again noted. Bones/joints: Unremarkable. IMPRESSION: 1. PICC terminates in good position near the cavoatrial junction 2. Terminus of gastric suction tube is uncertain.
[2020-10-06 16:00] VITALS: BP 144/83; PULSE 77; RESP 16; TEMP 37.6; O2SAT 96
[2020-10-06 19:42] VITALS: BP 138/100; PULSE 72; RESP 14; TEMP 37.2; O2SAT 96
--- NOTE | 2020-10-07 02:04 | PC.NURSE ---
AOX4. PT SAID A FEW WORDS WHEN HE WOKE UP, BUT HAS BEEN SLEEPING MAJORITY OF SHIFT. PT HAS NOT HAD ANY C/O THUS FAR. ABD INCISION CDI. NG PRESENT TO Suraj BENEDICT AT 80. NPO. SUCTION ON LOW. MEDS PASSED PER NG. VSS.
--- NOTE | 2020-10-07 02:19 | PC.NURSE ---
REPORT GIVEN TO Howard UGARTE RN
--- NOTE | 2020-10-07 02:32 | PC.NURSE ---
Care assumed. Report received from Maura Smith RN
[2020-10-07 04:00] VITALS: BP 160/105; PULSE 82; RESP 20; TEMP 37.8; O2SAT 96
[2020-10-07 05:00] VITALS: BMI 25.9
--- NOTE | 2020-10-07 05:14 | PC.NURSE ---
Pt is currently resting in bed. Has been febrile this AM. He is also hypertensive this AM. Medicated per may. NG tube to low wall suction with 650 ml of green drainage noted. Pt given bedbath this AM per staff. No complaints stated. Will continue to monitor.
--- NOTE | 2020-10-07 06:00 | XR_ITS ---
PROCEDURE: XR ACUTE ABDOMEN SERIES CLINICAL INDICATION: F/U SBO COMPARISON: CR,RF FL SMALL BOWEL FOLLOW THROUGH from 10/06/2020 FINDINGS: FINDINGS: Fluoroscopy time: 4.38 minutes. [employer] exam demonstrates a nasogastric tube present with tip in the region the descending portion of the duodenum. Mixture of barium and Gastrografin was instilled through the NG tube. Multiple flat KUBs are obtained along with spot views and fluoroscopic exam. There is distension of the small bowel throughout. There was slightly hyperactive peristalsis of the jejunum. Fluoroscopic images however failed to demonstrate an area of obstruction. Delayed images are obtained up to 6 hours following the original installation of contrast. No transition point was identified within the proximal and mid small bowel. There was dilution of the contrast into the distal small bowel. There is decreased peristalsis in the distal small bowel. ACUTE ABDOMINAL SERIES was performed the following morning approximately 20 hours after the installation of contrast through the in G-tube. At this time there was contrast which was diluted into the distal small bowel. There is also contrast within the nondistended colon all the way to the rectum. The anastomotic site was not well delineated by contrast. The patient will be re-examined with fluoroscopy and addendum given once this is performed. Frontal view of the chest demonstrates atelectatic change in the right lung base. The patchy density in the left midlung is no longer apparent and may have been due to an area of atelectasis. Pneumoperitoneum is once again noted. PICC line is present with tip in the region the SVC. Nasogastric tube is present. The tip is in the region of the descending portion of the duodenum. There is mild cardiomegaly. Left basilar atelectasis has improved. IMPRESSION: Diffuse dilatation of the small bowel as described above. No definite transition point is apparent. The anastomotic site is not identified. Contrast is present within the colon all the way to the rectum. The jejunum and proximal ileum shows increased peristalsis while the mid and distal ileum shows hypoactive peristalsis. These findings suggest a distal small-bowel ileus. Cannot exclude a partial obstruction at the anastomotic site. Addendum will be added following additional fluoroscopic evaluation. Improved left midlung consolidation and left basilar atelectasis with persistent right basilar atelectasis cardiomegaly and pneumoperitoneum. Dictated by: Edwar Mckay MD 10/07/2020 10:36 Edwar Mckay MD in [place] 10/07/2020 10:36
[2020-10-07 08:00] VITALS: BP 159/91; PULSE 74; RESP 20; TEMP 37.1; O2SAT 98
--- NOTE | 2020-10-07 08:22 | HMH.GSPN ---
Subjective Patient reports: no bowel movement Narrative: Patient states that he feels so-so . He has some pain. NG output approximately 1 L over several hours. 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 Exam Vital signs and Labs for Last 24 Hours: Temp Pulse Resp BP Pulse Ox 98.7 F 74 20 159/91 H 98 10/07/20 08:00 10/07/20 08:00 10/07/20 08:00 10/07/20 08:00 10/07/20 08:00 I & O for Last 24 hours: Intake & Output 10/04/20 10/05/20 10/06/20 10/07/20 11:59 11:59 11:59 11:59 Intake Total 1786 / 1786 1654 / 1654 970 / 970 1625 / 1625 Output Total 2550 / 2550 3301 / 3301 1500 / 1500 1400 / 1400 Balance -764 / -764 -1647 / -1647 -530 / -530 225 / 225 Weight 232 lb 2 oz 224 lb 0.2 oz 219 lb 0.1 oz 213 lb 4 oz - *Routine Abdominal Exam Comments: Somewhat distended and tender.
[2020-10-07 09:49] LABS: Basophils % 0.5 % (0.1-2.0); Eosinophils # 0.2 K/mm3 (0.0-0.4); Eosinophils % 2.8 % (0.1-12.0); Hematocrit 35.7 % (42.0-52.0); Hemoglobin 10.8 g/dL (14.1-18.0); Lymphocytes % 11.8 % (10-50); Mean Corpuscular HGB Conc 30.1 g/dL (31.8-35.4); Mean Corpuscular Volume 86.3 fl (80-94); Mean Platelet Volume 7.3 fl (7.4-10.4); Monocytes # 0.7 K/mm3 (0.1-1.0); Monocytes % 8.7 % (1.7-9.3); Neutrophils # 6.4 K/mm3 (1.8-7.8); Neutrophils % 76.2 % (37.0-80.0); Platelet Count 350 K/mm3 (142-424); Red Blood Count 4.14 M/mm3 (4.60-6.20); Red Cell Distribution Width 15.5 % (11.5-17.5); White Blood Count 8.4 K/mm3 (4.8-10.8)
[2020-10-07 09:50] LABS: Chloride 106 mmol/L (98-107); Sodium 141 mmol/L (136-145)
[2020-10-07 09:51] LABS: Potassium 3.9 mmoL/L (3.5-5.1)
[2020-10-07 09:53] LABS: Anion Gap 10.9 mEq/L (5-15); Blood Urea Nitrogen 12 mg/dl (9-20); Carbon Dioxide 28 mmol/L (22.0-30.0); Creatinine Clearance Estimated 54 mL/min (50-200); Estimated Glomerular Filt Rate 40 ml/min (>60); GFR (African American) 48 ML/MIN (>60)
[2020-10-07 09:54] LABS: Calcium 9.3 mg/dl (8.4-10.2); Glucose 96 mg/dl (74-100); Lactic Acid 0.8 mmol/L (0.7-2.1)
--- NOTE | 2020-10-07 12:50 | PC.NURSE ---
patient has been noted to have a bm twice this shift. appeared to be all liquid, and green (contrast)
--- NOTE | 2020-10-07 12:54 | HMH.ACPN2 ---
Internal Medicine - PN: Subj *Date: 10/07/20 *Time: 13:03 Interval history: 70-year-old male patient sitting up in recliner NG tube is capped. He reports he is feeling a little better also voices bowel movements and flatus. He did have over a liter of dark green drainage from NG during the night over several hours. Awaiting results from small bowel follow-through Exam Vital signs and Labs for Last 24 Hours: Temp Pulse Resp BP Pulse Ox 98.7 F 74 20 159/91 H 98 10/07/20 08:00 10/07/20 08:00 10/07/20 08:00 10/07/20 08:00 10/07/20 08:00 Laboratory Results - last 24 hr 10/07/20 09:35: WBC 8.4, RBC 4.14 L, Hgb 10.8 L, Hct 35.7 L, MCV 86.3, MCH 26.0 L, MCHC 30.1 L, RDW 15.5, Plt Count 350, MPV 7.3 L, Neut % (Auto) 76.2, Lymph % (Auto) 11.8, Stephenson % (Auto) 8.7, Eos % (Auto) 2.8, Baso % (Auto) 0.5, Neut # (Auto) 6.4, Lymph # (Auto) 1.0, Stephenson # (Auto) 0.7, Eos # (Auto) 0.2, Baso # (Auto) 0.0 10/07/20 09:35: Sodium 141, Potassium 3.9, Chloride 106, Carbon Dioxide 28, Anion Gap 10.9, BUN 12, Creatinine 1.70 H, Estimated Creat Clear 54, Estimated GFR 40 L, Est GFR ( Amer) 48 L, Glucose 96, Calcium 9.3 10/07/20 09:35: Lactate 0.8 I & O for Last 24 hours: Intake & Output 10/04/20 10/05/20 10/06/20 10/07/20 23:59 23:59 23:59 23:59 Intake Total 1965 / 1965 2444 / 2444 0 / 0 1625 / 1625 Output Total 1000 / 1300 3801 / 3801 1400 / 1400 Balance 966 / 666 -1357 / -1357 0 / 0 225 / 225 Weight 232 lb 2 oz 224 lb 0.2 oz 219 lb 0.1 oz 213 lb 4 oz - Constitutional no acute distress - *Routine HEENT Exam Head: Present: normocephalic Eye: Present: EOMI ENT: Present: mucous membranes moist - *Routine Neck Exam Present: trachea midline. Absent: tracheal deviation - *Routine Respiratory Exam Present: CTA bilaterally. Absent: accessory muscle use - *Routine Cardiovascular Exam Present: RRR - *Routine Abdominal Exam Present: soft, normoactive bowel sounds, tenderness, distended - *Routine Extremities Exam Present: full ROM, pulses intact. Absent: cyanosis, clubbing, calf tenderness - *Routine Skin Exam Present: dry, warm, wounds - *Routine Neurological Exam Present: alert, CN II-XII intact. Absent: motor deficit, plantar reflex - Routine Psychiatric Exam Present: normal affect, normal thought process. Absent: auditory hallucinations, visual hallucinations Assessment and Plan (1) Anemia Status: Acute Qualifiers: Anemia type: unspecified type Qualified Code(s): D64.9 - Anemia, unspecified Category: Medical Code(s): D64.9 - Anemia, unspecified (2) Occult blood positive stool Status: Acute Category: Medical Code(s): R19.5 - Other fecal abnormalities (3) Abdominal pain Status: Acute Qualifiers: Abdominal location: epigastric Qualified Code(s): R10.13 - Epigastric pain Category: Medical Code(s): R10.9 - Unspecified abdominal pain (4) CVA (cerebral vascular accident) Status: Acute Qualifiers: CVA mechanism: unspecified Qualified Code(s): I63.9 - Cerebral infarction, unspecified Category: Medical Code(s): I63.9 - Cerebral infarction, unspecified (5) Chest pain Status: Acute Qualifiers: Chest pain type: precordial pain Qualified Code(s): R07.2 - Precordial pain Category: Medical Code(s): R07.9 - Chest pain, unspecified (6) Near syncope Status: Acute Category: Medical Code(s): R55 - Syncope and collapse (7) Pulmonary HTN Status: Acute Category: Medical Code(s): I27.20 - Pulmonary hypertension, unspecified (8) A-fib Status: Chronic Qualifiers: Atrial fibrillation type: paroxysmal Qualified Code(s): I48.0 - Paroxysmal atrial fibrillation Category: Medical Code(s): I48.91 - Unspecified atrial fibrillation (9) CAD (coronary artery disease) Status: Chronic Qualifiers: Coronary Disease-Associated Artery/Lesion type: unspecified vessel or lesion type [place] vs. transplanted heart:
--- NOTE | 2020-10-07 14:20 | PC.NURSE ---
patient has done okay. rings out as needed. has been up to chair. ambulated to and from bathroom. ng tube to suction continues to drain contrast, a little over 250ml out at this time. some pain noted. distended and tender. feeling better than this morning. vitals have been stable.
[2020-10-07 15:25] LABS: Magnesium 1.9 mg/dl (1.6-2.3); Phosphorous 3.2 mg/dl (2.5-4.5); Triglycerides 149 mg/dl (30-150)
[2020-10-07 15:26] LABS: Alanine Aminotransferase 32 U/L (12-78); Albumin/Globulin Ratio 1.2 (1.1-1.8); Alkaline Phosphatase 74 U/L (38-126); Anion Gap 14.8 mEq/L (5-15); Aspartate Amino Transferase 41 U/L (17-59); Bilirubin,Total 0.5 mg/dl (0.2-1.3); Blood Urea Nitrogen 12 mg/dl (9-20); Calcium 9.3 mg/dl (8.4-10.2); Carbon Dioxide 25 mmol/L (22.0-30.0); Chloride 106 mmol/L (98-107); Cholesterol 95 mg/dl (140-200); Creatinine Clearance Estimated 57 mL/min (50-200); Estimated Glomerular Filt Rate 43 ml/min (>60); GFR (African American) 52 ML/MIN (>60); Globulin 3.3 g/dL (1.3-3.2); Glucose 106 mg/dl (74-100); Potassium 3.8 mmoL/L (3.5-5.1); Sodium 142 mmol/L (136-145); Total Protein,Serum 7.3 g/dl (6.3-8.2)
[2020-10-07 15:53] VITALS: BP 166/88; PULSE 74; RESP 16; TEMP 37.5; O2SAT 93
[2020-10-07 16:47] LABS: POC Glucose,Bedside 100 (70-110)
--- NOTE | 2020-10-07 17:50 | PC.NURSE ---
Received report on pt at approx 1530. PICC dsg changed per sterile technique to FRANCO. TPN also started per may, and is infusing w/o difficulty to PICC. FSBS chacked at 1626 and was 100.
[2020-10-07 19:55] VITALS: BP 142/68; PULSE 68; RESP 18; TEMP 37.1; O2SAT 97
[2020-10-07 21:28] LABS: POC Glucose,Bedside 108 (70-110)
--- NOTE | 2020-10-07 22:48 | PC.NURSE ---
at 2200 tpn was increased to 75 ml/hr per order fsbs was 108
[2020-10-08] VITALS (8 sets, daily range): BP systolic 118–184; BP diastolic 63–108; PULSE 70–85; RESP 16–20; TEMP 37–37.7; O2SAT 94–99; BMI 26.3
--- NOTE | 2020-10-08 03:39 | PC.NURSE ---
Patient is A&Ox4. Patient has had 2 BM this shift. A midline incision is noted and is clean, dry & intact; domingo and steri-strips are noted. NG tube is in place at 80 in the right nare and hooked to low continuous suction. Patient's abdomen remains tender with hypoactive bowel sounds. Patient was able to use his IS reaching 1500. He has rested well this shift with complaints of pain at around 0300 and was medicated per MAY. Vital signs are stable, call light is within reach, will continue to monitor.
--- NOTE | 2020-10-08 04:11 | PC.NURSE ---
fsbs cheked 118. increased tpn to 100ml/hr at this time per order
[2020-10-08 04:17] LABS: POC Glucose,Bedside 118 (70-110)
--- NOTE | 2020-10-08 06:00 | XR_ITS ---
PROCEDURE INFORMATION: Exam: XR Complete Acute Abdomen Series Including Chest Exam date and time: 10/08/2020 6:00 AM Age: 70 years old Clinical indication: Abdominal tenderness; Prior surgery; Surgery date: 3-7 days post-operative; Surgery type: Bowel resection; Additional info: Partial sbo vs post-op ileus TECHNIQUE: Imaging protocol: XR complete acute abdomen series, including 2 or more views of the abdomen and a single view chest. COMPARISON: CR XR ACUTE ABDOMEN SERIES 10/07/2020 6:13 AM FINDINGS: Tubes, catheters and devices: An enteric tube is present with the tip coiled descending duodenum. Lungs: There is platelike atelectasis right lung base. Pleural spaces: Normal. No pleural effusions. No pneumothorax. Heart/Mediastinum: Normal. No cardiomegaly. Gastrointestinal tract: There is a small amount of residual barium in the small bowel and colon. Generalized air in small and large bowel may reflect an adynamic ileus. Intraperitoneal space: Normal. No free air. Bones/joints: There are degenerative changes of the spine. Soft tissues: Multiple skin domingo are present right abdomen. IMPRESSION: Generalized air in small and large bowel may reflect an adynamic ileus.
[2020-10-08 06:07] LABS: Anion Gap 13.3 mEq/L (5-15); Blood Urea Nitrogen 13 mg/dl (9-20); Calcium 8.8 mg/dl (8.4-10.2); Carbon Dioxide 24 mmol/L (22.0-30.0); Chloride 106 mmol/L (98-107); Creatinine Clearance Estimated 62 mL/min (50-200); Estimated Glomerular Filt Rate 46 ml/min (>60); GFR (African American) 56 ML/MIN (>60); Glucose 123 mg/dl (74-100); Magnesium 1.8 mg/dl (1.6-2.3); Phosphorous 3.3 mg/dl (2.5-4.5); Potassium 4.3 mmoL/L (3.5-5.1); Sodium 139 mmol/L (136-145)
--- NOTE | 2020-10-08 07:14 | HMH.GSPN ---
Subjective Patient reports: feels better, still having pain, flatus, bowel movement Narrative: The patient states that he continues to have liquid stool and gas . 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 Extreme caution in any advancement remains warranted as he still may ultimately require surgical intervention for anastomotic revision or small bowel pexy. His nasogastric tube will be withdrawn approximately 10 cm as it appears to be well within the small bowel. Nasogastric tube to be placed to a drain bag with continued evaluation of residual output. Continue Reglan for now. (14) Physical deconditioning Status: Acute Exam Vital signs and Labs for Last 24 Hours: Temp Pulse Resp BP Pulse Ox 98.6 F 77 20 184/108 H 95 10/08/20 03:41 10/08/20 03:41 10/08/20 03:41 10/08/20 03:41 10/08/20 03:41 Laboratory Results - last 24 hr 10/07/20 09:35: WBC 8.4, RBC 4.14 L, Hgb 10.8 L, Hct 35.7 L, MCV 86.3, MCH 26.0 L, MCHC 30.1 L, RDW 15.5, Plt Count 350, MPV 7.3 L, Neut % (Auto) 76.2, Lymph % (Auto) 11.8, [place] % (Auto) 8.7, Eos % (Auto) 2.8, Baso % (Auto) 0.5, Neut # (Auto) 6.4, Lymph # (Auto) 1.0, [place] # (Auto) 0.7, Eos # (Auto) 0.2, Baso # (Auto) 0.0 10/07/20 09:35: Sodium 141, Potassium 3.9, Chloride 106, Carbon Dioxide 28, Anion Gap 10.9, BUN 12, Creatinine 1.70 H, Estimated Creat Clear 54, Estimated GFR 40 L, Est GFR ( Amer) 48 L, Glucose 96, Calcium 9.3 10/07/20 09:35: Lactate 0.8 10/07/20 09:35: Albumin 4.0 10/07/20 15:05: Sodium 142, Potassium 3.8, Chloride 106, Carbon Dioxide 25, Anion Gap 14.8, BUN 12, Creatinine 1.60 H, Estimated Creat Clear 57, Estimated GFR 43 L, Est GFR ( Amer) 52 L, Glucose 106 H, Calcium 9.3, Total Bilirubin 0.5, AST 41, ALT 32, Alkaline Phosphatase 74, Total Protein 7.3, Albumin 4.0, Globulin 3.3 H, Albumin/Globulin Ratio 1.2, Cholesterol 95 L 10/07/20 15:05: Phosphorus 3.2, Magnesium 1.9, Triglycerides 149 10/07/20 16:26: POC Glucose 100 10/07/20 21:03: POC Glucose 108 10/08/20 04:09: POC Glucose 118 H 10/08/20 05:45: Sodium 139, Potassium 4.3, Chloride 106, Carbon Dioxide 24, Anion Gap 13.3, BUN 13, Creatinine 1.50 H, Estimated Creat Clear 62, Estimated GFR 46 L, Est GFR ( Amer) 56 L, Glucose 123 H, Calcium 8.8, Phosphorus 3.3, Magnesium 1.8 I & O for Last 24 hours: Intake & Output 10/05/20 10/06/20 10/07/20 10/08/20 11:59 11:59 11:59 11:59 Intake Total 1654 / 1654 970 / 970 1625 / 1625 3510 / 3510 Output Total 3301 / 3301 1500 / 1500 1400 / 1400 950 / 950 Balance -1647 / -1647 -530 / -530 225 / 225 2560 / 2560 Weight 224 lb 0.2 oz 219 lb 0.1 oz 213 lb 4 oz 216 lb 4 oz Radiology Reports for the Last 24 Hours: AM films reveal persistent dilated small bowel loops. - Constitutional no acute distress - *Routine Respiratory Exam Absent: respiratory distress - *Routine Cardiovascular Exam Absent: tachycardia - *Routine Abdominal Exam Present: tenderness
--- NOTE | 2020-10-08 10:27 | PC.NURSE ---
1000 fsbs 118 increased tpn to 125ml/hr
--- NOTE | 2020-10-08 11:56 | HMH.ACPN2 ---
Internal Medicine - PN: Subj *Date: 10/08/20 *Time: 18:55 Interval history: 70-year-old male patient sitting up in chair respirations easy/even, NG connected to low wall suction with green drainage. He denies any pain, reports he is feeling a little better, and does acknowledge a soft to liquid bowel movement this morning. TPN was started yesterday and he is tolerating without difficulty. Exam Vital signs and Labs for Last 24 Hours: Temp Pulse Resp BP Pulse Ox 99.8 F H 70 17 118/63 97 10/08/20 11:17 10/08/20 11:17 10/08/20 11:17 10/08/20 11:17 10/08/20 11:17 Laboratory Results - last 24 hr 10/07/20 09:35: Albumin 4.0 10/07/20 15:05: Sodium 142, Potassium 3.8, Chloride 106, Carbon Dioxide 25, Anion Gap 14.8, BUN 12, Creatinine 1.60 H, Estimated Creat Clear 57, Estimated GFR 43 L, Est GFR ( Amer) 52 L, Glucose 106 H, Calcium 9.3, Total Bilirubin 0.5, AST 41, ALT 32, Alkaline Phosphatase 74, Total Protein 7.3, Albumin 4.0, Globulin 3.3 H, Albumin/Globulin Ratio 1.2, Cholesterol 95 L 10/07/20 15:05: Phosphorus 3.2, Magnesium 1.9, Triglycerides 149 10/07/20 16:26: POC Glucose 100 10/07/20 21:03: POC Glucose 108 10/08/20 04:09: POC Glucose 118 H 10/08/20 05:45: Sodium 139, Potassium 4.3, Chloride 106, Carbon Dioxide 24, Anion Gap 13.3, BUN 13, Creatinine 1.50 H, Estimated Creat Clear 62, Estimated GFR 46 L, Est GFR ( Amer) 56 L, Glucose 123 H, Calcium 8.8, Phosphorus 3.3, Magnesium 1.8 I & O for Last 24 hours: Intake & Output 10/05/20 10/06/20 10/07/20 10/08/20 23:59 23:59 23:59 23:59 Intake Total 2444 / 2444 0 / 0 2495 / 2745 2640 / 2640 Output Total 3801 / 3801 1875 / 1875 475 / 475 Balance -1357 / -1357 0 / 0 620 / 870 2165 / 2165 Weight 224 lb 0.2 oz 219 lb 0.1 oz 213 lb 4 oz 216 lb 4 oz - Constitutional no acute distress - *Routine HEENT Exam Head: Present: normocephalic Eye: Present: other ENT: Present: mucous membranes moist Comments: Legally blind - *Routine Neck Exam Present: trachea midline. Absent: tracheal deviation - *Routine Respiratory Exam Present: CTA bilaterally. Absent: accessory muscle use - *Routine Cardiovascular Exam Present: RRR - *Routine Abdominal Exam Present: soft, normoactive bowel sounds, tenderness, distended, wound - *Routine Extremities Exam Present: full ROM, pulses intact. Absent: cyanosis, clubbing, calf tenderness - *Routine Skin Exam Present: dry, warm, wounds. Absent: cyanosis, erythema, rash - *Routine Neurological Exam Present: alert, oriented X3. Absent: motor deficit, pronator drift - Routine Psychiatric Exam Present: normal affect, normal thought process. Absent: auditory hallucinations, visual hallucinations Assessment and Plan (1) Anemia Status: Acute Qualifiers: Anemia type: unspecified type Qualified Code(s): D64.9 - Anemia, unspecified Category: Medical Code(s): D64.9 - Anemia, unspecified (2) Occult blood positive stool Status: Acute Category: Medical Code(s): R19.5 - Other fecal abnormalities (3) Abdominal pain Status: Acute Qualifiers: Abdominal location: epigastric Qualified Code(s): R10.13 - Epigastric pain Category: Medical Code(s): R10.9 - Unspecified abdominal pain (4) CVA (cerebral vascular accident) Status: Acute Qualifiers: CVA mechanism: unspecified Qualified Code(s): I63.9 - Cerebral infarction, unspecified Category: Medical Code(s): I63.9 - Cerebral infarction, unspecified (5) Chest pain Status: Acute Qualifiers: Chest pain type: precordial pain Qualified Code(s): R07.2 - Precordial pain Category: Medical Code(s): R07.9 - Chest pain, unspecified (6) Near syncope Status: Acute Category: Medical Code(s): R55 - Syncope and collapse (7) Pulmonary HTN Status: Acute Category: Medical Code(s): I27.20 - Pulmonary hypertension, unspecified (8) A-fib Status: Chronic Qualifiers: Atrial fibrillat
[2020-10-08 14:14] LABS: POC Glucose,Bedside 118 (70-110)
--- NOTE | 2020-10-08 14:20 | PC.NURSE ---
patient ng tube moved 10 cm out to 70. hooked to drain bag about 1100. has had no complaints. joking with staff. did sit up in the chair. refused to walk with pt stating he would tomorrow. tolerating medications and tpn well. vitals have been stable. continues to pass some contrast through bm.
[2020-10-08 16:31] LABS: POC Glucose,Bedside 113 (70-110)
--- NOTE | 2020-10-08 16:49 | PC.NURSE ---
fsbs 113, turned tpn to max rate of 142ml/hr
--- NOTE | 2020-10-08 18:27 | PC.NURSE ---
RA SATS 90%. RETURN PT BACK TO 2L N/C
--- NOTE | 2020-10-08 18:55 | PC.NURSE ---
some leaking noted from ng tube to drain bag but small amount and no residual noted when checked
[2020-10-08 22:39] LABS: POC Glucose,Bedside 118 (70-110)
[2020-10-09] VITALS (8 sets, daily range): BP systolic 123–152; BP diastolic 68–88; PULSE 55–82; RESP 17–20; TEMP 36.6–37.8; O2SAT 94–99; BMI 26.5
--- NOTE | 2020-10-09 04:25 | PC.NURSE ---
alert and oriented. ng 70 in right nare. currently hooked to drainage bag. no residual noted on checks. draining green content from ng tube. pain x1 this shift and prn med given per mar with relief. vss. iv and picc infusing per order. 2LNC. tpn currently at 142ml/hr with no issues at this time. FSBS was 118 on check at bedtime. call light in reach. will continue to monitor
[2020-10-09 05:20] LABS: POC Glucose,Bedside 121 (70-110)
--- NOTE | 2020-10-09 07:19 | HMH.GSPN ---
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 The patient has either had a profound/extended ileus or has a partial obstruction due to a somewhat strictured anastomosis or torquing of small bowel. DC NG Diet will be very cautiously advanced to clears (no tray) as directed by nursing (14) Physical deconditioning Status: Acute Exam Vital signs and Labs for Last 24 Hours: Temp Pulse Resp BP Pulse Ox 98 F 82 19 137/74 96 10/09/20 04:00 10/09/20 04:00 10/09/20 04:00 10/09/20 04:00 10/09/20 04:00 Laboratory Results - last 24 hr 10/08/20 10:08: POC Glucose 118 H 10/08/20 16:13: POC Glucose 113 H 10/08/20 22:16: POC Glucose 118 H 10/09/20 05:07: POC Glucose 121 H I & O for Last 24 hours: Intake & Output 10/06/20 10/07/20 10/08/20 10/09/20 11:59 11:59 11:59 11:59 Intake Total 970 / 970 1625 / 1625 3510 / 3510 5699 / 5699 Output Total 1500 / 1500 1400 / 1400 950 / 950 1350 / 1350 Balance -530 / -530 225 / 225 2560 / 2560 4349 / 4349 Weight 219 lb 0.1 oz 213 lb 4 oz 216 lb 4 oz 218 lb - Constitutional no acute distress - *Routine Respiratory Exam Absent: respiratory distress - *Routine Cardiovascular Exam Absent: tachycardia - *Routine Abdominal Exam Present: tenderness
[2020-10-09 07:45] LABS: Anion Gap 12.5 mEq/L (5-15); Blood Urea Nitrogen 24 mg/dl (9-20); Calcium 8.6 mg/dl (8.4-10.2); Carbon Dioxide 23 mmol/L (22.0-30.0); Chloride 105 mmol/L (98-107); Creatinine Clearance Estimated 67 mL/min (50-200); Estimated Glomerular Filt Rate 50 ml/min (>60); GFR (African American) 60 ML/MIN (>60); Glucose 99 mg/dl (74-100); Phosphorous 4.1 mg/dl (2.5-4.5); Potassium 4.5 mmoL/L (3.5-5.1); Sodium 136 mmol/L (136-145)
[2020-10-09 08:10] LABS: Basophils % 0.5 % (0.1-2.0); Eosinophils # 0.2 K/mm3 (0.0-0.4); Eosinophils % 2.7 % (0.1-12.0); Hematocrit 31.8 % (42.0-52.0); Hemoglobin 10.1 g/dL (14.1-18.0); Lymphocytes # 1.1 K/mm3 (0.7-4.5); Lymphocytes % 14.5 % (10-50); Mean Corpuscular HGB Conc 31.6 g/dL (31.8-35.4); Mean Corpuscular Hemoglobin 26.9 pg (27.0-31.2); Mean Corpuscular Volume 85.2 fl (80-94); Mean Platelet Volume 7.9 fl (7.4-10.4); Monocytes # 0.6 K/mm3 (0.1-1.0); Monocytes % 7.6 % (1.7-9.3); Neutrophils # 5.6 K/mm3 (1.8-7.8); Neutrophils % 74.7 % (37.0-80.0); Platelet Count 362 K/mm3 (142-424); Red Blood Count 3.73 M/mm3 (4.60-6.20); Red Cell Distribution Width 16.2 % (11.5-17.5); White Blood Count 7.5 K/mm3 (4.8-10.8)
--- NOTE | 2020-10-09 09:20 | HMH.ACPN2 ---
Internal Medicine - PN: Subj *Date: 10/09/20 *Time: 12:21 Interval history: 70-year-old male patient sitting up in bed, NG tube has been DC'd and he denies any nausea. He is tolerating liquids at this time without any complaints. Midline abdominal incision is healing with domingo and Steri-Strips intact there is some slight serous drainage, wound is not malodorous, and he does complain of a little tenderness when palpated. Will culture wound and obtain abdominal CT Exam Vital signs and Labs for Last 24 Hours: Temp Pulse Resp BP Pulse Ox 99.4 F 55 L 17 152/80 H 99 10/09/20 07:55 10/09/20 07:55 10/09/20 07:55 10/09/20 07:55 10/09/20 07:55 Laboratory Results - last 24 hr 10/08/20 10:08: POC Glucose 118 H 10/08/20 16:13: POC Glucose 113 H 10/08/20 22:16: POC Glucose 118 H 10/09/20 05:07: POC Glucose 121 H 10/09/20 06:20: WBC 7.5, RBC 3.73 L, Hgb 10.1 L, Hct 31.8 L, MCV 85.2, MCH 26.9 L, MCHC 31.6 L, RDW 16.2, Plt Count 362, MPV 7.9, Neut % (Auto) 74.7, Lymph % (Auto) 14.5, [place] % (Auto) 7.6, Eos % (Auto) 2.7, Baso % (Auto) 0.5, Neut # (Auto) 5.6, Lymph # (Auto) 1.1, [place] # (Auto) 0.6, Eos # (Auto) 0.2, Baso # (Auto) 0.0 10/09/20 06:30: Sodium 136, Potassium 4.5, Chloride 105, Carbon Dioxide 23, Anion Gap 12.5, BUN 24 H D, Creatinine 1.40 H, Estimated Creat Clear 67, Estimated GFR 50 L, Est GFR ( Amer) 60, Glucose 99, Calcium 8.6, Phosphorus 4.1, Magnesium 2.0 D I & O for Last 24 hours: Intake & Output 10/06/20 10/07/20 10/08/20 10/09/20 23:59 23:59 23:59 23:59 Intake Total 0 / 0 2495 / 2745 5025 / 5025 3314 / 3314 Output Total 1875 / 1875 950 / 1600 875 / 875 Balance 0 / 0 620 / 870 4075 / 3425 2439 / 2439 Weight 219 lb 0.1 oz 213 lb 4 oz 216 lb 4 oz 218 lb - Constitutional no acute distress - *Routine HEENT Exam Head: Present: normocephalic Eye: Present: other ENT: Present: sinus tenderness Comments: Legally blind - *Routine Neck Exam Present: trachea midline. Absent: tracheal deviation - *Routine Respiratory Exam Present: CTA bilaterally. Absent: accessory muscle use - *Routine Cardiovascular Exam Present: RRR - *Routine Abdominal Exam Present: soft, normoactive bowel sounds, tenderness, distended, wound - *Routine Extremities Exam Present: full ROM, pulses intact. Absent: cyanosis, clubbing, calf tenderness - *Routine Skin Exam Present: dry, warm, wounds. Absent: intact, rash Comments: Midline abdominal incision healing with domingo and Steri-Strips. There is some malodorous drainage in umbilical area - *Routine Neurological Exam Present: alert, oriented X3. Absent: motor deficit, pronator drift - Routine Psychiatric Exam Present: normal affect, normal thought process. Absent: auditory hallucinations, visual hallucinations Assessment and Plan (1) Anemia Status: Acute Qualifiers: Anemia type: unspecified type Qualified Code(s): D64.9 - Anemia, unspecified Category: Medical Code(s): D64.9 - Anemia, unspecified (2) Occult blood positive stool Status: Acute Category: Medical Code(s): R19.5 - Other fecal abnormalities (3) Abdominal pain Status: Acute Qualifiers: Abdominal location: epigastric Qualified Code(s): R10.13 - Epigastric pain Category: Medical Code(s): R10.9 - Unspecified abdominal pain (4) CVA (cerebral vascular accident) Status: Acute Qualifiers: CVA mechanism: unspecified Qualified Code(s): I63.9 - Cerebral infarction, unspecified Category: Medical Code(s): I63.9 - Cerebral infarction, unspecified (5) Chest pain Status: Acute Qualifiers: Chest pain type: precordial pain Qualified Code(s): R07.2 - Precordial pain Category: Medical Code(s): R07.9 - Chest pain, unspecified (6) Near syncope Status: Acute Category: Medical Code(s): R55 - Syncope and collapse (7) Pulmonary HTN Status: Acute Category: Medical Code(s): I27.20 - Pulmonary hypertension, unsp
--- NOTE | 2020-10-09 09:53 | CT_ITS ---
PROCEDURE: CT ABDOMEN PELVIS WO CON CLINICAL INDICATION: Possible Abscess COMPARISON: CT ABDPELW/O CT ABD PELVIS W/O CONTRAST from 02/03/[address] ABDOMEN PELVIS WO CON from 10/05/2020 TECHNIQUE: Axial images obtained with sagittal and coronal reformats. All CT scans at the facility use one or more dose reduction, viz: automated exposure control, ma/kV adjustment per patient size (including targeted exams where dose is matched to indication, i.e. head), or iterative reconstruction technique. FINDINGS: LOWER THORAX: Atelectatic changes noted in the right lung base with small right pleural effusion. The atelectasis has shown some improvement. ABDOMEN & PELVIS: Elevated right hemidiaphragm. There are several small hypodense lesions of the liver measuring up to 10 mm in the hepatic dome a and may represent hepatic cyst being present on 02/03/2017. The gallbladder and spleen and adrenal glands have an unremarkable appearance. There are numerous bilateral renal cyst and multiple bilateral renal calculi. No hydronephrosis or ureteral calculi. Unremarkable appearing pancreas. There is persistent dilated loops of small bowel with air-fluid levels throughout the small bowel. Prior right hemicolectomy with intro colic anastomosis in the mid abdominal region slightly toward the right moderate amount high density contrast is present within the small bowel on the right with prominent artifact. There is a small amount of high density contrast within the large bowel as well. There is colonic diverticulosis. The prostate is enlarged at 6 cm. Bone island is present in the left femoral neck. No obvious abscess apparent. IMPRESSION: 1. No evidence of an abscess. 2. Postsurgical changes from recent right hemicolectomy. There remains dilated loops of small bowel with air-fluid levels with significant artifact from the recent small bowel follow-through. Overall, the small bowel dilatation has shown some improvement. The small bowel is not significantly dilated just proximal to the anastomosis. Overall, the findings may be related to ileus which has slightly improved. Dictated by: Edwar Mckay MD 10/09/2020 11:42 Edwar Mckay MD in [facility] 10/09/2020 11:42
--- NOTE | 2020-10-09 10:26 | HMH.PHACONS ---
- Pharmacy Consult Date: 10/09/20 Time: 10:26 Referring provider: LATASHA Reason for Consult:: vancomycin management Allergies and ADEs:: Allergies Allergy/AdvReac Type Severity Reaction Status Date / Time No Known Allergies Allergy Verified 09/23/20 14:00 Home Medications:: Home Medications Medication Instructions Recorded Confirmed Type OXcarbazepine [Trileptal 300mg 300 mg PO BID 08/20/18 09/24/20 History tablet] Aspirin [Aspirin 81mg chewable 81 mg PO DAILY 04/08/19 09/24/20 History tab] Pantoprazole Sodium [Protonix 40mg 40 mg PO DAILY 04/08/19 09/24/20 History tablet] Simvastatin 20 mg PO HS 04/08/19 09/24/20 History tramadol 50 mg tablet 50 mg PO Q6HP PRN #120 tab 05/09/20 09/24/20 Rx amlodipine 10 mg tablet 10 mg PO BID #60 tab 06/04/20 09/24/20 Rx Tamsulosin HCl [Flomax 0.4mg 0.4 mg PO HS 07/08/20 09/24/20 History capsule] Isosorbide Mononitrate [Isosorbide 30 mg PO DAILY 07/09/20 09/24/20 History Mononitrate ER] Mag Carb/Aluminum Hydrox/Algin 30 ml PO Q4HP PRN 07/09/20 09/23/20 History [Acid Gone Antacid Liquid] Metoprolol Succinate [Metoprolol 200 mg PO DAILY 07/09/20 09/24/20 History Succinate 200mg Tablet*] timoloL maleate [Timolol Maleate] 1 drp EYE-BOTH DAILY 07/09/20 09/24/20 History Loperamide HCl [Loperamide] 2 mg PO Q6HP PRN 08/18/20 09/23/20 History ondansetron HCL [Ondansetron 4mg 4 mg PO Q4HP PRN 08/18/20 09/23/20 History tab*] Rivaroxaban [Xarelto 20mg Tablet*] 20 mg PO DAILY 09/23/20 09/24/20 History Height: 1.93 m Weight: 98.883 kg Laboratory Results:: Laboratory Results - last 24 hr 10/08/20 10:08: POC Glucose 118 H 10/08/20 16:13: POC Glucose 113 H 10/08/20 22:16: POC Glucose 118 H 10/09/20 05:07: POC Glucose 121 H 10/09/20 06:20: WBC 7.5, RBC 3.73 L, Hgb 10.1 L, Hct 31.8 L, MCV 85.2, MCH 26.9 L, MCHC 31.6 L, RDW 16.2, Plt Count 362, MPV 7.9, Neut % (Auto) 74.7, Lymph % (Auto) 14.5, [place] % (Auto) 7.6, Eos % (Auto) 2.7, Baso % (Auto) 0.5, Neut # (Auto) 5.6, Lymph # (Auto) 1.1, [place] # (Auto) 0.6, Eos # (Auto) 0.2, Baso # (Auto) 0.0 10/09/20 06:30: Sodium 136, Potassium 4.5, Chloride 105, Carbon Dioxide 23, Anion Gap 12.5, BUN 24 H D, Creatinine 1.40 H, Estimated Creat Clear 67, Estimated GFR 50 L, Est GFR ( Amer) 60, Glucose 99, Calcium 8.6, Phosphorus 4.1, Magnesium 2.0 D Medical History: Reports:: Atrial Fibrillation, Congestive Heart Failure, Coronary Artery Disease, Cerebrovascular Accident, Deep Vein Thrombosis, Gastroesophageal Reflux Disease(GERD), Hyperlipidemia, Hypertension, Lung Disease, Kidney Stones, Renal Insufficiency, Urinary Tract Infection Denies:: Cancer, Diabetes Mellitus Type 1, Diabetes Mellitus Type 2, Internal Pacemaker, MRSA, Seizures Assessment and Plan (1) Anemia Status: Acute Qualifiers: Anemia type: unspecified type Qualified Code(s): D64.9 - Anemia, unspecified Category: Medical Code(s): D64.9 - Anemia, unspecified (2) Occult blood positive stool Status: Acute Category: Medical Code(s): R19.5 - Other fecal abnormalities (3) Abdominal pain Status: Acute Qualifiers: Abdominal location: epigastric Qualified Code(s): R10.13 - Epigastric pain Category: Medical Code(s): R10.9 - Unspecified abdominal pain (4) CVA (cerebral vascular accident) Status: Acute Qualifiers: CVA mechanism: unspecified Qualified Code(s): I63.9 - Cerebral infarction, unspecified Category: Medical Code(s): I63.9 - Cerebral infarction, unspecified (5) Chest pain Status: Acute Qualifiers: Chest pain type: precordial pain Qualified Code(s): R07.2 - Precordial pain Category: Medical Code(s): R07.9 - Chest pain, unspecified (6) Near syncope Status: Acute Category: Medical Code(s): R55 - Syncope and collapse (7) Pulmonary HTN Status: Acute Category: Medical Code(s): I27.20 - Pulmonary hypertension, unspecified (8) A-fib Status: Chronic Qu
--- NOTE | 2020-10-09 17:55 | PC.NURSE ---
Pt has tolerated cautious clears well this shift. No reports of N/V. Pt did c/o abdominal pain x1 this shift and was medicated per MAY. NG tube d/c this shift. Pt has voided per urinal this shift. No other acute changes or complaints at this time. Will continue to monitor.
[2020-10-09 20:46] LABS: POC Glucose,Bedside 132 (70-110)
[2020-10-10 04:00] VITALS: BP 100/54; PULSE 75; RESP 20; TEMP 38.1; O2SAT 97
[2020-10-10 05:00] VITALS: BMI 27.1
--- NOTE | 2020-10-10 06:00 | XR_ITS ---
PROCEDURE: XR CHEST PORTABLE CLINICAL HISTORY: r/o PNA COMPARISON: CR XR CHEST PORTABLE from 09/23/2020 CR XR CHEST PORTABLE from 10/03/2020 CR XR CHEST PORTABLE PICC PLAC from 10/06/2020 FINDINGS: There is cardiomegaly without failure. There are low lung volumes. Atelectatic changes are once again noted in the right lung base with persistent postsurgical pneumoperitoneum. Left lung is clear. PICC line tip is in the region the SVC. IMPRESSION: Low lung volumes with right basilar atelectasis, postsurgical pneumoperitoneum, and cardiomegaly without failure Dictated by: Edwar Mckay MD 10/10/2020 10:11 Edwar Mckay MD in [facility] 10/10/2020 10:11
[2020-10-10 06:21] LABS: Basophils % 0.4 % (0.1-2.0); Eosinophils # 0.1 K/mm3 (0.0-0.4); Eosinophils % 1.4 % (0.1-12.0); Hematocrit 29.9 % (42.0-52.0); Hemoglobin 9.6 g/dL (14.1-18.0); Lymphocytes # 1.1 K/mm3 (0.7-4.5); Lymphocytes % 13.5 % (10-50); Mean Corpuscular HGB Conc 32.1 g/dL (31.8-35.4); Mean Corpuscular Hemoglobin 26.7 pg (27.0-31.2); Mean Corpuscular Volume 83.2 fl (80-94); Mean Platelet Volume 8.2 fl (7.4-10.4); Monocytes # 0.5 K/mm3 (0.1-1.0); Monocytes % 6.1 % (1.7-9.3); Neutrophils # 6.1 K/mm3 (1.8-7.8); Neutrophils % 78.7 % (37.0-80.0); Platelet Count 344 K/mm3 (142-424); Red Cell Distribution Width 16.2 % (11.5-17.5); White Blood Count 7.8 K/mm3 (4.8-10.8)
[2020-10-10 06:33] LABS: Anion Gap 14.4 mEq/L (5-15); Blood Urea Nitrogen 34 mg/dl (9-20); Calcium 8.4 mg/dl (8.4-10.2); Carbon Dioxide 20 mmol/L (22.0-30.0); Chloride 105 mmol/L (98-107); Creatinine Clearance Estimated 55 mL/min (50-200); Estimated Glomerular Filt Rate 40 ml/min (>60); GFR (African American) 48 ML/MIN (>60); Glucose 101 mg/dl (74-100); Magnesium 2.4 mg/dl (1.6-2.3); Phosphorous 4.9 mg/dl (2.5-4.5); Potassium 4.4 mmoL/L (3.5-5.1); Sodium 135 mmol/L (136-145)
--- NOTE | 2020-10-10 06:57 | HMH.GSPN ---
Subjective Patient reports: flatus, bowel movement Narrative: Per nursing staff the patient did complain of some nausea overnight. He responded well to Zofran. He states that he feels fine right now . He claims to continue to pass quite a bit of gas . He also states that his bowels are still moving some . Progress Note: A&P (1) Anemia Status: Acute (2) Occult blood positive stool Status: Acute (3) Abdominal pain Status: Acute (4) CVA (cerebral vascular accident) Status: Acute (5) Chest pain Status: Acute (6) Near syncope Status: Acute (7) Pulmonary HTN Status: Acute (8) A-fib Status: Chronic (9) CAD (coronary artery disease) Status: Chronic (10) Obesity (BMI 30.0-34.9) Status: Chronic (11) Visual impairment Status: Chronic (12) Postoperative ileus Status: Acute Assessment and plan: The patient has had evidence of either profound/extended postoperative ileus or partial/intermittent obstruction. Multiple radiographic studies to include plain films, CT scans, and a small bowel follow-through revealed no sign of obstruction (all the above favor profound ileus). A CT scan (10/09) ordered by the primary service revealed no increased small bowel dilatation proximal to the anastomosis. Overall, the CT scan from 10/09 showed a somewhat improved bowel gas pattern with regard to overall small bowel distention. He does continue to have some intermittent nausea and very slow/cautious advancement is warranted. He still may ultimately require repeat laparotomy with revision of anastomosis; however, as no evidence of actual anastomotic stricture or other evidence of obstruction exists the risks of intervention currently likely outweigh any benefit. Clear liquid diet ordered (13) Physical deconditioning Status: Acute (14) Malignant neoplasm of colon Status: Acute Exam Vital signs and Labs for Last 24 Hours: Temp Pulse Resp BP Pulse Ox 100.6 F H 75 20 100/54 L 97 10/10/20 04:00 10/10/20 04:00 10/10/20 04:00 10/10/20 04:00 10/10/20 04:00 Laboratory Results - last 24 hr 10/09/20 06:20: WBC 7.5, RBC 3.73 L, Hgb 10.1 L, Hct 31.8 L, MCV 85.2, MCH 26.9 L, MCHC 31.6 L, RDW 16.2, Plt Count 362, MPV 7.9, Neut % (Auto) 74.7, Lymph % (Auto) 14.5, [place] % (Auto) 7.6, Eos % (Auto) 2.7, Baso % (Auto) 0.5, Neut # (Auto) 5.6, Lymph # (Auto) 1.1, [place] # (Auto) 0.6, Eos # (Auto) 0.2, Baso # (Auto) 0.0 10/09/20 06:30: Sodium 136, Potassium 4.5, Chloride 105, Carbon Dioxide 23, Anion Gap 12.5, BUN 24 H D, Creatinine 1.40 H, Estimated Creat Clear 67, Estimated GFR 50 L, Est GFR ( Amer) 60, Glucose 99, Calcium 8.6, Phosphorus 4.1, Magnesium 2.0 D 10/09/20 11:53: POC Glucose 132 H 10/10/20 05:30: Sodium 135 L, Potassium 4.4, Chloride 105, Carbon Dioxide 20 L, Anion Gap 14.4, BUN 34 H D, Creatinine 1.70 H D, Estimated Creat Clear 55, Estimated GFR 40 L, Est GFR ( Amer) 48 L, Glucose 101 H, Calcium 8.4, Phosphorus 4.9 H, Magnesium 2.4 H D 10/10/20 05:30: WBC 7.8, RBC 3.60 L, Hgb 9.6 L, Hct 29.9 L, MCV 83.2, MCH 26.7 L, MCHC 32.1, RDW 16.2, Plt Count 344, MPV 8.2, Neut % (Auto) 78.7, Lymph % (Auto) 13.5, [place] % (Auto) 6.1, Eos % (Auto) 1.4, Baso % (Auto) 0.4, Neut # (Auto) 6.1, Lymph # (Auto) 1.1, [place] # (Auto) 0.5, Eos # (Auto) 0.1, Baso # (Auto) 0.0 I & O for Last 24 hours: Intake & Output 10/07/20 10/08/20 10/09/20 10/10/20 11:59 11:59 11:59 11:59 Intake Total 1625 / 1625 3510 / 3510 5699 / 5699 0 / 0 Output Total 1400 / 1400 950 / 950 1350 / 1350 550 / 550 Balance 225 / 225 2560 / 2560 4349 / 4349 -550 / -550 Weight 213 lb 4 oz 216 lb 4 oz 218 lb 223 lb Microbiology Reports for the Last 24 Hours: Microbiology 10/09/20 08:50 Incision - Abscess Gram Stain - Final - Constitutional no acute distress - *Routine Cardiovascular Exam Absent: tachycardia - *Routine Abdominal Exam Present: tenderness. Absent: rebound, guarding Comme
[2020-10-10 08:00] VITALS: BP 129/71; PULSE 67; RESP 18; TEMP 37.9; O2SAT 98
--- NOTE | 2020-10-10 09:18 | HMH.ACPN2 ---
Internal Medicine - PN: Subj *Date: 10/10/20 *Time: 14:18 Interval history: 70 YOM resting quietly, reports Abd a little more tender today. He reports having some nausea during night but with medications resolved. He reports liquid/soft BM and flatus Exam Vital signs and Labs for Last 24 Hours: Temp Pulse Resp BP Pulse Ox 100.3 F H 67 18 129/71 98 10/10/20 08:00 10/10/20 08:00 10/10/20 08:00 10/10/20 08:00 10/10/20 08:00 Laboratory Results - last 24 hr 10/09/20 11:53: POC Glucose 132 H 10/10/20 05:30: Sodium 135 L, Potassium 4.4, Chloride 105, Carbon Dioxide 20 L, Anion Gap 14.4, BUN 34 H D, Creatinine 1.70 H D, Estimated Creat Clear 55, Estimated GFR 40 L, Est GFR ( Amer) 48 L, Glucose 101 H, Calcium 8.4, Phosphorus 4.9 H, Magnesium 2.4 H D 10/10/20 05:30: WBC 7.8, RBC 3.60 L, Hgb 9.6 L, Hct 29.9 L, MCV 83.2, MCH 26.7 L, MCHC 32.1, RDW 16.2, Plt Count 344, MPV 8.2, Neut % (Auto) 78.7, Lymph % (Auto) 13.5, [place] % (Auto) 6.1, Eos % (Auto) 1.4, Baso % (Auto) 0.4, Neut # (Auto) 6.1, Lymph # (Auto) 1.1, [place] # (Auto) 0.5, Eos # (Auto) 0.1, Baso # (Auto) 0.0 I & O for Last 24 hours: Intake & Output 10/07/20 10/08/20 10/09/20 10/10/20 23:59 23:59 23:59 23:59 Intake Total 2495 / 2745 5025 / 5025 3314 / 3314 0 / 0 Output Total 1875 / 1875 950 / 1600 1175 / 1175 250 / 250 Balance 620 / 870 4075 / 3425 2139 / 2139 -250 / -250 Weight 213 lb 4 oz 216 lb 4 oz 218 lb 223 lb Microbiology Reports for the Last 24 Hours: Microbiology 10/09/20 08:50 Incision - Abscess Gram Stain - Final - Constitutional no acute distress - *Routine HEENT Exam Head: Present: normocephalic Eye: Present: EOMI ENT: Present: mucous membranes moist - *Routine Neck Exam Present: trachea midline. Absent: tracheal deviation - *Routine Respiratory Exam Present: CTA bilaterally. Absent: accessory muscle use - *Routine Cardiovascular Exam Present: RRR - *Routine Abdominal Exam Present: soft, normoactive bowel sounds, tenderness, distended. Absent: firm - *Routine Extremities Exam Present: full ROM, pulses intact. Absent: cyanosis, clubbing, edema, calf tenderness - *Routine Skin Exam Present: intact, dry, warm, wounds. Absent: cyanosis, erythema Comments: Midline incision w/ [place] and steri-strips Small drng in umbilicus - *Routine Neurological Exam Present: alert, oriented X3. Absent: motor deficit - Routine Psychiatric Exam Present: normal affect, normal thought process. Absent: auditory hallucinations, visual hallucinations Assessment and Plan (1) Anemia Status: Acute Qualifiers: Anemia type: unspecified type Qualified Code(s): D64.9 - Anemia, unspecified Category: Medical Code(s): D64.9 - Anemia, unspecified (2) Occult blood positive stool Status: Acute Category: Medical Code(s): R19.5 - Other fecal abnormalities (3) Abdominal pain Status: Acute Qualifiers: Abdominal location: epigastric Qualified Code(s): R10.13 - Epigastric pain Category: Medical Code(s): R10.9 - Unspecified abdominal pain (4) CVA (cerebral vascular accident) Status: Acute Qualifiers: CVA mechanism: unspecified Qualified Code(s): I63.9 - Cerebral infarction, unspecified Category: Medical Code(s): I63.9 - Cerebral infarction, unspecified (5) Chest pain Status: Acute Qualifiers: Chest pain type: precordial pain Qualified Code(s): R07.2 - Precordial pain Category: Medical Code(s): R07.9 - Chest pain, unspecified (6) Near syncope Status: Acute Category: Medical Code(s): R55 - Syncope and collapse (7) Pulmonary HTN Status: Acute Category: Medical Code(s): I27.20 - Pulmonary hypertension, unspecified (8) A-fib Status: Chronic Qualifiers: Atrial fibrillation type: paroxysmal Qualified Code(s): I48.0 - Paroxysmal atrial fibrillation Category: Medical Code(s): I48.91 - Unspecified atrial fibrillation (9
[2020-10-10 11:36] VITALS: BP 123/88; PULSE 67; RESP 18; TEMP 37.6; O2SAT 94
[2020-10-10 15:07] VITALS: BP 145/83; PULSE 66; RESP 18; TEMP 37.1; O2SAT 93
[2020-10-10 19:40] VITALS: O2SAT 93
[2020-10-10 20:00] VITALS: BP 99/69; PULSE 74; RESP 20; TEMP 37.3; O2SAT 96; O2SAT 97
[2020-10-11] VITALS (7 sets, daily range): BP systolic 108–121; BP diastolic 61–80; PULSE 69–78; RESP 20–22; TEMP 37.2–37.6; O2SAT 93–97; BMI 26.5
--- NOTE | 2020-10-11 06:00 | XR_ITS ---
PROCEDURE INFORMATION: Exam: XR Chest Exam date and time: 10/11/2020 6:00 AM Age: 70 years old Clinical indication: Pain; Right-sided; Patient HX: Best images, R/O pna TECHNIQUE: Imaging protocol: XR of the chest. Views: 1 view. COMPARISON: CR XR CHEST PORTABLE 10/10/2020 8:54 AM FINDINGS: Lungs: No focal infiltrates are noted. Pleural spaces: Unremarkable. No pleural effusion. No pneumothorax. Heart/Mediastinum: The heart is prominent. Diaphragm: Elevation the right hemidiaphragm is unchanged. Bones/joints: Unremarkable. IMPRESSION: Stable exam. No definite infiltrates noted.
[2020-10-11 06:53] LABS: Anion Gap 12.7 mEq/L (5-15); Blood Urea Nitrogen 40 mg/dl (9-20); Calcium 8.4 mg/dl (8.4-10.2); Carbon Dioxide 20 mmol/L (22.0-30.0); Chloride 107 mmol/L (98-107); Creatinine Clearance Estimated 55 mL/min (50-200); Estimated Glomerular Filt Rate 40 ml/min (>60); GFR (African American) 48 ML/MIN (>60); Glucose 87 mg/dl (74-100); Magnesium 2.2 mg/dl (1.6-2.3); Phosphorous 4.5 mg/dl (2.5-4.5); Potassium 4.7 mmoL/L (3.5-5.1); Sodium 135 mmol/L (136-145)
--- NOTE | 2020-10-11 09:29 | HMH.GSPN ---
Subjective Narrative: Patient states that he has been moving his bowels. Has had some left-sided pain. No nausea. Progress Note: A&P (1) Anemia Status: Acute (2) Occult blood positive stool Status: Acute (3) Abdominal pain Status: Acute (4) CVA (cerebral vascular accident) Status: Acute (5) Chest pain Status: Acute (6) Near syncope Status: Acute (7) Pulmonary HTN Status: Acute (8) A-fib Status: Chronic (9) CAD (coronary artery disease) Status: Chronic (10) Obesity (BMI 30.0-34.9) Status: Chronic (11) Visual impairment Status: Chronic (12) Postoperative ileus Status: Acute Assessment and plan: Full liquid diet (13) Physical deconditioning Status: Acute (14) Malignant neoplasm of colon Status: Acute Exam Vital signs and Labs for Last 24 Hours: Temp Pulse Resp BP Pulse Ox 99.4 F 69 20 108/68 L 97 10/11/20 08:00 10/11/20 08:00 10/11/20 08:00 10/11/20 08:00 10/11/20 08:00 Laboratory Results - last 24 hr 10/11/20 06:30: Sodium 135 L, Potassium 4.7, Chloride 107, Carbon Dioxide 20 L, Anion Gap 12.7, BUN 40 H, Creatinine 1.70 H, Estimated Creat Clear 55, Estimated GFR 40 L, Est GFR ( Amer) 48 L, Glucose 87, Calcium 8.4, Phosphorus 4.5, Magnesium 2.2 I & O for Last 24 hours: Intake & Output 10/08/20 10/09/20 10/10/20 10/11/20 11:59 11:59 11:59 11:59 Intake Total 3510 / 3510 5699 / 5699 0 / 0 1340 / 1340 Output Total 950 / 950 1350 / 1350 550 / 550 450 / 450 Balance 2560 / 2560 4349 / 4349 -550 / -550 890 / 890 Weight 216 lb 4 oz 218 lb 223 lb 218 lb 0.2 oz Microbiology Reports for the Last 24 Hours: Microbiology 10/09/20 08:50 Incision - Abscess Gram Stain - Final 10/09/20 08:50 Incision - Abscess Wound Culture - Preliminary Gram Negative Rods - *Routine Abdominal Exam Present: soft
[2020-10-11 11:17] LABS: Vancomycin,Trough 12.7 ug/mL (5.0-10.0)
[2020-10-11 12:51] LABS: POC Glucose,Bedside 96 (70-110)
--- NOTE | 2020-10-11 13:11 | HMH.ACPN2 ---
Internal Medicine - PN: Subj *Date: 10/11/20 *Time: 13:12 Interval history: Relays no significant interval change. Is resting in the bed. I would like him to mobilize, spend more time in the chair, and use his I-S more frequency. Relays bowel movements and flatus. Tolerating clears, no nausea this morning. His chest x-ray is clear Exam Vital signs and Labs for Last 24 Hours: Temp Pulse Resp BP Pulse Ox 99.2 F 72 20 115/70 97 10/11/20 11:02 10/11/20 11:02 10/11/20 11:02 10/11/20 11:02 10/11/20 11:02 Laboratory Results - last 24 hr 10/11/20 06:30: Sodium 135 L, Potassium 4.7, Chloride 107, Carbon Dioxide 20 L, Anion Gap 12.7, BUN 40 H, Creatinine 1.70 H, Estimated Creat Clear 55, Estimated GFR 40 L, Est GFR ( Amer) 48 L, Glucose 87, Calcium 8.4, Phosphorus 4.5, Magnesium 2.2 10/11/20 10:40: Vancomycin Trough 12.7 H 10/11/20 12:17: POC Glucose 96 I & O for Last 24 hours: Intake & Output 10/08/20 10/09/20 10/10/20 10/11/20 23:59 23:59 23:59 23:59 Intake Total 5025 / 5025 3314 / 3314 740 / 860 600 / 600 Output Total 950 / 1600 1175 / 1175 700 / 700 Balance 4075 / 3425 2139 / 2139 40 / 160 600 / 600 Weight 216 lb 4 oz 218 lb 223 lb 218 lb 0.2 oz Microbiology Reports for the Last 24 Hours: Microbiology 10/09/20 08:50 Incision - Abscess Gram Stain - Final 10/09/20 08:50 Incision - Abscess Wound Culture - Preliminary Gram Negative Rods - Constitutional no acute distress, chronically ill appearing, disheveled, cooperative - *Routine HEENT Exam Head: Present: normocephalic Eye: Present: EOMI, PERRL ENT: Present: mucous membranes moist - *Routine Neck Exam Present: supple. Absent: lymphadenopathy - *Routine Respiratory Exam Present: CTA bilaterally - *Routine Cardiovascular Exam Present: RRR - *Routine Abdominal Exam Present: tenderness, surgical scars. Absent: normoactive bowel sounds, rigid - *Routine Extremities Exam Absent: cyanosis, clubbing, edema - *Routine Skin Exam Present: warm. Absent: rash - *Routine Neurological Exam Present: alert, oriented X3, moving all extremities, hearing grossly intact. Absent: vision grossly intact Assessment and Plan (1) Anemia Status: Acute Qualifiers: Anemia type: unspecified type Qualified Code(s): D64.9 - Anemia, unspecified Category: Medical Code(s): D64.9 - Anemia, unspecified (2) Occult blood positive stool Status: Acute Category: Medical Code(s): R19.5 - Other fecal abnormalities (3) Abdominal pain Status: Acute Qualifiers: Abdominal location: epigastric Qualified Code(s): R10.13 - Epigastric pain Category: Medical Code(s): R10.9 - Unspecified abdominal pain (4) CVA (cerebral vascular accident) Status: Acute Qualifiers: CVA mechanism: unspecified Qualified Code(s): I63.9 - Cerebral infarction, unspecified Category: Medical Code(s): I63.9 - Cerebral infarction, unspecified (5) Chest pain Status: Acute Qualifiers: Chest pain type: precordial pain Qualified Code(s): R07.2 - Precordial pain Category: Medical Code(s): R07.9 - Chest pain, unspecified (6) Near syncope Status: Acute Category: Medical Code(s): R55 - Syncope and collapse (7) Pulmonary HTN Status: Acute Category: Medical Code(s): I27.20 - Pulmonary hypertension, unspecified (8) A-fib Status: Chronic Qualifiers: Atrial fibrillation type: paroxysmal Qualified Code(s): I48.0 - Paroxysmal atrial fibrillation Category: Medical Code(s): I48.91 - Unspecified atrial fibrillation (9) CAD (coronary artery disease) Status: Chronic Qualifiers: Coronary Disease-Associated Artery/Lesion type: unspecified vessel or lesion type [place] vs. transplanted heart: [place] heart Associated angina: with stable angina Qualified Code(s): I25.118 - Atherosclerotic heart disease of [place] coronary artery with [facility]
[2020-10-11 15:33] LABS: Vancomycin,Peak 39.3 ug/ml (11-39)
[2020-10-11 17:22] LABS: POC Glucose,Bedside 106 (70-110)
--- NOTE | 2020-10-11 20:03 | PC.NURSE ---
Pt alert and oriented x 4. RR even and unlabored. This evening after supper, pt did have x 1 episode of emesis of bile and pudding. PRN zofran given per mar and has been effective. Pt is resting currently in bed, has been up to chair this am. TPN continues per may. PICC to FRANCO cdi without any problems noted. VSS. Lungs cta, s1,s2, bs x 4. Steri strips to abd are cdi.
[2020-10-12] VITALS (7 sets, daily range): BP systolic 113–156; BP diastolic 67–88; PULSE 74–79; RESP 18–20; TEMP 36.7–37.3; O2SAT 96–98; BMI 26.2
--- NOTE | 2020-10-12 04:24 | PC.NURSE ---
PT A&O. NO c/o of pain this shift, pt has rested well. Pt remains on 3L NC, sats in the mid 90s. Midline incision drsg CDI. PICC patent, TPN infusing @142 ml/hr. Pt has not c/o of nausea, no episodes of emesis this shift. VSS< call light in reach, no concerns at this time.
[2020-10-12 07:17] LABS: Chloride 106 mmol/L (98-107); Potassium 4.9 mmoL/L (3.5-5.1); Sodium 134 mmol/L (136-145)
[2020-10-12 07:19] LABS: Blood Urea Nitrogen 51 mg/dl (9-20); Creatinine Clearance Estimated 51 mL/min (50-200); Estimated Glomerular Filt Rate 37 ml/min (>60); GFR (African American) 45 ML/MIN (>60)
[2020-10-12 07:20] LABS: Anion Gap 13.9 mEq/L (5-15); Calcium 8.4 mg/dl (8.4-10.2); Carbon Dioxide 19 mmol/L (22.0-30.0); Glucose 112 mg/dl (74-100); Magnesium 2.3 mg/dl (1.6-2.3); Phosphorous 4.8 mg/dl (2.5-4.5)
--- NOTE | 2020-10-12 09:33 | HMH.GSPN ---
Subjective Narrative: Due to tolerance of clear liquids he was advanced to a full liquid diet yesterday. Patient states that he tolerated much of this but then had some vomiting. He does state that he feels that he could tolerate eggs, toast, and grits. Progress Note: A&P (1) Anemia Status: Acute (2) Occult blood positive stool Status: Acute (3) Abdominal pain Status: Acute (4) CVA (cerebral vascular accident) Status: Acute (5) Chest pain Status: Acute (6) Near syncope Status: Acute (7) Pulmonary HTN Status: Acute (8) A-fib Status: Chronic (9) CAD (coronary artery disease) Status: Chronic (10) Obesity (BMI 30.0-34.9) Status: Chronic (11) Visual impairment Status: Chronic (12) Postoperative ileus Status: Acute (13) Physical deconditioning Status: Acute (14) Malignant neoplasm of colon Status: Acute Assessment and Plan for All Diagnoses:: May try limited bland diet. If patient continues with vomiting may need to regress diet back to clear liquids. Exam Vital signs and Labs for Last 24 Hours: Temp Pulse Resp BP Pulse Ox 98.8 F 74 18 136/88 97 10/12/20 08:00 10/12/20 08:00 10/12/20 08:00 10/12/20 08:00 10/12/20 08:00 Laboratory Results - last 24 hr 10/11/20 10:40: Vancomycin Trough 12.7 H 10/11/20 12:17: POC Glucose 96 10/11/20 15:00: Vancomycin Peak 39.3 H 10/11/20 17:01: POC Glucose 106 10/12/20 06:39: Sodium 134 L, Potassium 4.9, Chloride 106, Carbon Dioxide 19 L, Anion Gap 13.9, BUN 51 H D, Creatinine 1.80 H, Estimated Creat Clear 51, Estimated GFR 37 L, Est GFR ( Amer) 45 L, Glucose 112 H, Calcium 8.4, Phosphorus 4.8 H, Magnesium 2.3 I & O for Last 24 hours: Intake & Output 10/09/20 10/10/20 10/11/20 10/12/20 11:59 11:59 11:59 11:59 Intake Total 5699 / 5699 0 / 0 1340 / 1340 2330 / 2330 Output Total 1350 / 1350 550 / 550 450 / 450 1750 / 1750 Balance 4349 / 4349 -550 / -550 890 / 890 580 / 580 Weight 218 lb 223 lb 218 lb 0.2 oz 215 lb Microbiology Reports for the Last 24 Hours: Microbiology 10/09/20 08:50 Incision - Abscess Gram Stain - Final 10/09/20 08:50 Incision - Abscess Wound Culture - Final Klebsiella pneumoniae - *Routine Abdominal Exam Comments: Abdomen is somewhat distended
--- NOTE | 2020-10-12 10:32 | HMH.PHACONS ---
- Pharmacy Consult Date: 10/12/20 Time: 10:32 Referring provider: DR. HANDY Reason for Consult:: VANCOMYCIN DOSING Allergies and ADEs:: Allergies Allergy/AdvReac Type Severity Reaction Status Date / Time No Known Allergies Allergy Verified 09/23/20 14:00 Home Medications:: Home Medications Medication Instructions Recorded Confirmed Type OXcarbazepine [Trileptal 300mg 300 mg PO BID 08/20/18 09/24/20 History tablet] Aspirin [Aspirin 81mg chewable 81 mg PO DAILY 04/08/19 09/24/20 History tab] Pantoprazole Sodium [Protonix 40mg 40 mg PO DAILY 04/08/19 09/24/20 History tablet] Simvastatin 20 mg PO HS 04/08/19 09/24/20 History tramadol 50 mg tablet 50 mg PO Q6HP PRN #120 tab 05/09/20 09/24/20 Rx amlodipine 10 mg tablet 10 mg PO BID #60 tab 06/04/20 09/24/20 Rx Tamsulosin HCl [Flomax 0.4mg 0.4 mg PO HS 07/08/20 09/24/20 History capsule] Isosorbide Mononitrate [Isosorbide 30 mg PO DAILY 07/09/20 09/24/20 History Mononitrate ER] Mag Carb/Aluminum Hydrox/Algin 30 ml PO Q4HP PRN 07/09/20 09/23/20 History [Acid Gone Antacid Liquid] Metoprolol Succinate [Metoprolol 200 mg PO DAILY 07/09/20 09/24/20 History Succinate 200mg Tablet*] timoloL maleate [Timolol Maleate] 1 drp EYE-BOTH DAILY 07/09/20 09/24/20 History Loperamide HCl [Loperamide] 2 mg PO Q6HP PRN 08/18/20 09/23/20 History ondansetron HCL [Ondansetron 4mg 4 mg PO Q4HP PRN 08/18/20 09/23/20 History tab*] Rivaroxaban [Xarelto 20mg Tablet*] 20 mg PO DAILY 09/23/20 09/24/20 History Height: 1.93 m Weight: 97.522 kg Laboratory Results:: Laboratory Results - last 24 hr 10/11/20 10:40: Vancomycin Trough 12.7 H 10/11/20 12:17: POC Glucose 96 10/11/20 15:00: Vancomycin Peak 39.3 H 10/11/20 17:01: POC Glucose 106 10/12/20 06:39: Sodium 134 L, Potassium 4.9, Chloride 106, Carbon Dioxide 19 L, Anion Gap 13.9, BUN 51 H D, Creatinine 1.80 H, Estimated Creat Clear 51, Estimated GFR 37 L, Est GFR ( Amer) 45 L, Glucose 112 H, Calcium 8.4, Phosphorus 4.8 H, Magnesium 2.3 Medical History: Reports:: Atrial Fibrillation, Congestive Heart Failure, Coronary Artery Disease, Cerebrovascular Accident, Deep Vein Thrombosis, Gastroesophageal Reflux Disease(GERD), Hyperlipidemia, Hypertension, Lung Disease, Kidney Stones, Renal Insufficiency, Urinary Tract Infection Denies:: Cancer, Diabetes Mellitus Type 1, Diabetes Mellitus Type 2, Internal Pacemaker, MRSA, Seizures Assessment and Plan (1) Anemia Status: Acute Qualifiers: Anemia type: unspecified type Qualified Code(s): D64.9 - Anemia, unspecified Category: Medical Code(s): D64.9 - Anemia, unspecified (2) Occult blood positive stool Status: Acute Category: Medical Code(s): R19.5 - Other fecal abnormalities (3) Abdominal pain Status: Acute Qualifiers: Abdominal location: epigastric Qualified Code(s): R10.13 - Epigastric pain Category: Medical Code(s): R10.9 - Unspecified abdominal pain (4) CVA (cerebral vascular accident) Status: Acute Qualifiers: CVA mechanism: unspecified Qualified Code(s): I63.9 - Cerebral infarction, unspecified Category: Medical Code(s): I63.9 - Cerebral infarction, unspecified (5) Chest pain Status: Acute Qualifiers: Chest pain type: precordial pain Qualified Code(s): R07.2 - Precordial pain Category: Medical Code(s): R07.9 - Chest pain, unspecified (6) Near syncope Status: Acute Category: Medical Code(s): R55 - Syncope and collapse (7) Pulmonary HTN Status: Acute Category: Medical Code(s): I27.20 - Pulmonary hypertension, unspecified (8) A-fib Status: Chronic Qualifiers: Atrial fibrillation type: paroxysmal Qualified Code(s): I48.0 - Paroxysmal atrial fibrillation Category: Medical Code(s): I48.91 - Unspecified atrial fibrillation (9) CAD (coronary artery disease) Status: Chronic Qualifiers: Coronary Disease-Associated Artery/Lesion type:
--- NOTE | 2020-10-12 11:33 | HMH.ACPN2 ---
Internal Medicine - PN: Subj *Date: 10/12/20 *Time: 11:33 Interval history: Patient had some emesis this morning. Surgical notes are reviewed. Roque is on board. His chest film is stable without interval change. Patient CT conveyed an impression of a diminishing small bowel dilation slightly improving ileus. The abdomen is distended, there are hypoactive bowel sounds with tenderness to deep palpation. Most recent hemoglobin is 9.6 creatinine 1.80. We did culture a Klebsiella pneumonia off of the wound. We are adding Levaquin for coverage. Exam Vital signs and Labs for Last 24 Hours: Temp Pulse Resp BP Pulse Ox 98.8 F 74 18 136/88 97 10/12/20 08:00 10/12/20 08:00 10/12/20 08:00 10/12/20 08:00 10/12/20 08:00 Laboratory Results - last 24 hr 10/11/20 12:17: POC Glucose 96 10/11/20 15:00: Vancomycin Peak 39.3 H 10/11/20 17:01: POC Glucose 106 10/12/20 06:39: Sodium 134 L, Potassium 4.9, Chloride 106, Carbon Dioxide 19 L, Anion Gap 13.9, BUN 51 H D, Creatinine 1.80 H, Estimated Creat Clear 51, Estimated GFR 37 L, Est GFR ( Amer) 45 L, Glucose 112 H, Calcium 8.4, Phosphorus 4.8 H, Magnesium 2.3 I & O for Last 24 hours: Intake & Output 10/09/20 10/10/20 10/11/20 10/12/20 23:59 23:59 23:59 23:59 Intake Total 3314 / 3314 740 / 860 1970 / 1970 960 / 960 Output Total 1175 / 1175 700 / 700 200 / 550 1551 / 1551 Balance 2139 / 2139 40 / 160 1770 / 1420 -591 / -591 Weight 218 lb 223 lb 218 lb 0.2 oz 215 lb Microbiology Reports for the Last 24 Hours: Microbiology 10/09/20 08:50 Incision - Abscess Gram Stain - Final 10/09/20 08:50 Incision - Abscess Wound Culture - Final Klebsiella pneumoniae - Constitutional no acute distress, chronically ill appearing - *Routine HEENT Exam Head: Present: normocephalic Eye: Present: EOMI, PERRL. Absent: normal accommodation, conjunctival icterus ENT: Present: mucous membranes moist - *Routine Neck Exam Present: supple. Absent: lymphadenopathy - *Routine Respiratory Exam Present: CTA bilaterally - *Routine Cardiovascular Exam Present: RRR - *Routine Abdominal Exam Present: tenderness, distended, surgical scars. Absent: normoactive bowel sounds, rebound, guarding - *Routine Extremities Exam Absent: cyanosis, clubbing, edema - *Routine Skin Exam Present: warm. Absent: rash - *Routine Neurological Exam Present: alert, oriented X3, abnormal gait, moving all extremities, hearing grossly intact, normal speech. Absent: vision grossly intact, facial asymmetry Assessment and Plan (1) Anemia Status: Acute Qualifiers: Anemia type: unspecified type Qualified Code(s): D64.9 - Anemia, unspecified Category: Medical Code(s): D64.9 - Anemia, unspecified (2) Occult blood positive stool Status: Acute Category: Medical Code(s): R19.5 - Other fecal abnormalities (3) Abdominal pain Status: Acute Qualifiers: Abdominal location: epigastric Qualified Code(s): R10.13 - Epigastric pain Category: Medical Code(s): R10.9 - Unspecified abdominal pain (4) CVA (cerebral vascular accident) Status: Acute Qualifiers: CVA mechanism: unspecified Qualified Code(s): I63.9 - Cerebral infarction, unspecified Category: Medical Code(s): I63.9 - Cerebral infarction, unspecified (5) Chest pain Status: Acute Qualifiers: Chest pain type: precordial pain Qualified Code(s): R07.2 - Precordial pain Category: Medical Code(s): R07.9 - Chest pain, unspecified (6) Near syncope Status: Acute Category: Medical Code(s): R55 - Syncope and collapse (7) Pulmonary HTN Status: Acute Category: Medical Code(s): I27.20 - Pulmonary hypertension, unspecified (8) A-fib Status: Chronic Qualifiers: Atrial fibrillation type: paroxysmal Qualified Code(s): I48.0 - Paroxysmal atrial fibrillation Category: Medical Code(s): I48.91 - Unspecified atrial f
--- NOTE | 2020-10-12 12:00 | HMH.ACPN ---
Internal Medicine - PN: Subj *Date: 10/12/20 *Time: 12:00 Exam Vital signs and Labs for Last 24 Hours: Temp Pulse Resp BP Pulse Ox 98.8 F 74 18 136/88 97 10/12/20 08:00 10/12/20 08:00 10/12/20 08:00 10/12/20 08:00 10/12/20 08:00 Laboratory Results - last 24 hr 10/11/20 12:17: POC Glucose 96 10/11/20 15:00: Vancomycin Peak 39.3 H 10/11/20 17:01: POC Glucose 106 10/12/20 06:39: Sodium 134 L, Potassium 4.9, Chloride 106, Carbon Dioxide 19 L, Anion Gap 13.9, BUN 51 H D, Creatinine 1.80 H, Estimated Creat Clear 51, Estimated GFR 37 L, Est GFR ( Amer) 45 L, Glucose 112 H, Calcium 8.4, Phosphorus 4.8 H, Magnesium 2.3 I & O for Last 24 hours: Intake & Output 10/09/20 10/10/20 10/11/20 10/12/20 23:59 23:59 23:59 23:59 Intake Total 3314 / 3314 740 / 860 1970 / 1970 960 / 960 Output Total 1175 / 1175 700 / 700 200 / 550 1551 / 1551 Balance 2139 / 2139 40 / 160 1770 / 1420 -591 / -591 Weight 98.883 kg 101.151 kg 98.889 kg 97.522 kg Microbiology Reports for the Last 24 Hours: Microbiology 10/09/20 08:50 Incision - Abscess Gram Stain - Final 10/09/20 08:50 Incision - Abscess Wound Culture - Final Klebsiella pneumoniae Assessment and Plan (1) Anemia Status: Acute Qualifiers: Anemia type: unspecified type Qualified Code(s): D64.9 - Anemia, unspecified Category: Medical Code(s): D64.9 - Anemia, unspecified (2) Occult blood positive stool Status: Acute Category: Medical Code(s): R19.5 - Other fecal abnormalities (3) Abdominal pain Status: Acute Qualifiers: Abdominal location: epigastric Qualified Code(s): R10.13 - Epigastric pain Category: Medical Code(s): R10.9 - Unspecified abdominal pain (4) CVA (cerebral vascular accident) Status: Acute Qualifiers: CVA mechanism: unspecified Qualified Code(s): I63.9 - Cerebral infarction, unspecified Category: Medical Code(s): I63.9 - Cerebral infarction, unspecified (5) Chest pain Status: Acute Qualifiers: Chest pain type: precordial pain Qualified Code(s): R07.2 - Precordial pain Category: Medical Code(s): R07.9 - Chest pain, unspecified (6) Near syncope Status: Acute Category: Medical Code(s): R55 - Syncope and collapse (7) Pulmonary HTN Status: Acute Category: Medical Code(s): I27.20 - Pulmonary hypertension, unspecified (8) A-fib Status: Chronic Qualifiers: Atrial fibrillation type: paroxysmal Qualified Code(s): I48.0 - Paroxysmal atrial fibrillation Category: Medical Code(s): I48.91 - Unspecified atrial fibrillation (9) CAD (coronary artery disease) Status: Chronic Qualifiers: Coronary Disease-Associated Artery/Lesion type: unspecified vessel or lesion type [place] vs. transplanted heart: [place] heart Associated angina: with stable angina Qualified Code(s): I25.118 - Atherosclerotic heart disease of [place] coronary artery with other forms of angina pectoris Category: Medical Code(s): I25.10 - Atherosclerotic heart disease of [place] coronary artery without angina pectoris (10) Obesity (BMI 30.0-34.9) Status: Chronic Category: Medical Code(s): E66.9 - Obesity, unspecified (11) Visual impairment Status: Chronic Category: Medical Code(s): H54.7 - Unspecified visual loss (12) Postoperative ileus Status: Acute Category: Medical Code(s): K91.89 - Other postprocedural complications and disorders of digestive system; K56.7 - Ileus, unspecified (13) Physical deconditioning Status: Acute Category: Medical Code(s): R53.81 - Other malaise (14) Malignant neoplasm of colon Status: Acute Category: Medical Code(s): C18.9 - Malignant neoplasm of colon, unspecified The patient's infection will respond to the chosen ABx?: Yes Is the patient receiving the right drug, dose, and route?: Yes Could a more targeted ABx be ordered?: No (KLEBSIELLA IN WOUND CX. LEVAQU
--- NOTE | 2020-10-12 18:45 | PC.NURSE ---
Pt has done fine this shift. No c/o of N/V voiced. Pt was up to the chair at times this shift, but not for long intervals. IS used while awake, IS @ best 1250cc's
--- NOTE | 2020-10-13 03:06 | PC.NURSE ---
Patient is A&Ox3. Complained of pain, medication administered. Patient remains on RA and O2 saturations remain in the high 90's. Patient had multiple, large, loose bowel movements. VSS. Patient voiced no further concerns to RN at this time.
[2020-10-13 04:00] VITALS: BP 137/73; PULSE 66; RESP 18; TEMP 37; O2SAT 98
[2020-10-13 05:00] VITALS: BMI 26.2
[2020-10-13 06:36] LABS: Chloride 106 mmol/L (98-107); Sodium 133 mmol/L (136-145)
[2020-10-13 06:39] LABS: Blood Urea Nitrogen 58 mg/dl (9-20); Calcium 8.7 mg/dl (8.4-10.2); Carbon Dioxide 18 mmol/L (22.0-30.0); Creatinine Clearance Estimated 48 mL/min (50-200); Estimated Glomerular Filt Rate 35 ml/min (>60); GFR (African American) 42 ML/MIN (>60); Glucose 114 mg/dl (74-100); Magnesium 2.4 mg/dl (1.6-2.3); Phosphorous 4.9 mg/dl (2.5-4.5)
[2020-10-13 08:00] VITALS: BP 128/75; PULSE 71; RESP 18; TEMP 37.4; O2SAT 97
--- NOTE | 2020-10-13 08:19 | XR_ITS ---
PROCEDURE: XR CHEST 2V CLINICAL HISTORY: cough COMPARISON: CR XR CHEST PORTABLE PICC PLAC from 10/06/2020 CR XR CHEST PORTABLE from 10/10/2020 CR XR CHEST PORTABLE from 10/11/2020 FINDINGS: Mild cardiomegaly without failure. Left upper extremity PICC line tip is in the region the SVC. Elevated right hemidiaphragm with right basilar atelectasis No acute bony abnormalities. IMPRESSION: Overall no change. Cardiomegaly with right basilar atelectasis Dictated by: Edwar Mckay MD 10/13/2020 09:44 Edwar Mckay MD in [facility] 10/13/2020 09:44
--- NOTE | 2020-10-13 08:56 | HMH.GSPN ---
Subjective Narrative: Patient without complaints. He states that the bland diet stayed down as he took his time eating. Progress Note: A&P (1) Anemia Status: Acute (2) Occult blood positive stool Status: Acute (3) Abdominal pain Status: Acute (4) CVA (cerebral vascular accident) Status: Acute (5) Chest pain Status: Acute (6) Near syncope Status: Acute (7) Pulmonary HTN Status: Acute (8) A-fib Status: Chronic (9) CAD (coronary artery disease) Status: Chronic (10) Obesity (BMI 30.0-34.9) Status: Chronic (11) Visual impairment Status: Chronic (12) Postoperative ileus Status: Acute (13) Physical deconditioning Status: Acute (14) Malignant neoplasm of colon Status: Acute Assessment and Plan for All Diagnoses:: Continue current management Exam Vital signs and Labs for Last 24 Hours: Temp Pulse Resp BP Pulse Ox 99.3 F 71 18 128/75 97 10/13/20 08:00 10/13/20 08:00 10/13/20 08:00 10/13/20 08:00 10/13/20 08:00 Laboratory Results - last 24 hr 10/13/20 05:38: Sodium 133 L, Potassium 5.0, Chloride 106, Carbon Dioxide 18 L, Anion Gap 14.0, BUN 58 H, Creatinine 1.90 H, Estimated Creat Clear 48, Estimated GFR 35 L, Est GFR ( Amer) 42 L, Glucose 114 H, Calcium 8.7, Phosphorus 4.9 H, Magnesium 2.4 H I & O for Last 24 hours: Intake & Output 10/10/20 10/11/20 10/12/20 10/13/20 11:59 11:59 11:59 11:59 Intake Total 0 / 0 1340 / 1340 2330 / 2330 5710 / 5710 Output Total 550 / 550 450 / 450 1751 / 2526 1078 / 1078 Balance -550 / -550 890 / 890 579 / -196 4632 / 4632 Weight 223 lb 218 lb 0.2 oz 215 lb 214 lb 15.987 oz Microbiology Reports for the Last 24 Hours: Microbiology 10/09/20 08:50 Incision - Abscess Gram Stain - Final 10/09/20 08:50 Incision - Abscess Wound Culture - Final Klebsiella pneumoniae - *Routine Abdominal Exam Present: soft
--- NOTE | 2020-10-13 10:32 | SW/DCPLANNER ---
SENT UPDATES TO [facility] TODAY PER REQUEST.....PATIENT IS STILL NOT MEDICALLY STABLE TO DISCHARGE TODAY BUT WILL KEEP [facility] UPDATED ON HIS PROGRESS... PATIENT HAS BEEN ACCEPTED THERE...
[2020-10-13 11:24] VITALS: BP 127/80; PULSE 71; RESP 20; TEMP 37; O2SAT 98
--- NOTE | 2020-10-13 12:44 | HMH.ACPN2 ---
Internal Medicine - PN: Subj *Date: 10/13/20 *Time: 09:10 Interval history: pt states pain in abd with some nausea and bm last pm Exam Vital signs and Labs for Last 24 Hours: Temp Pulse Resp BP Pulse Ox 98.6 F 71 20 127/80 98 10/13/20 11:24 10/13/20 11:24 10/13/20 11:24 10/13/20 11:24 10/13/20 11:24 Laboratory Results - last 24 hr 10/13/20 05:38: Sodium 133 L, Potassium 5.0, Chloride 106, Carbon Dioxide 18 L, Anion Gap 14.0, BUN 58 H, Creatinine 1.90 H, Estimated Creat Clear 48, Estimated GFR 35 L, Est GFR ( Amer) 42 L, Glucose 114 H, Calcium 8.7, Phosphorus 4.9 H, Magnesium 2.4 H I & O for Last 24 hours: Intake & Output 10/11/20 10/12/20 10/13/20 10/14/20 11:59 11:59 11:59 11:59 Intake Total 1340 / 1340 2330 / 2330 5710 / 5710 Output Total 450 / 450 1751 / 2526 1078 / 1078 Balance 890 / 890 579 / -196 4632 / 4632 Weight 218 lb 0.2 oz 215 lb 214 lb 15.987 oz - Constitutional mild distress - *Routine HEENT Exam Head: Present: normocephalic Eye: Present: PERRL ENT: Present: mucous membranes moist - *Routine Neck Exam Present: supple. Absent: lymphadenopathy - *Routine Respiratory Exam Present: CTA bilaterally - *Routine Cardiovascular Exam Present: RRR - *Routine Abdominal Exam Present: soft, normoactive bowel sounds, tenderness, surgical scars Comments: incision clean slight drainage at umbilicus - *Routine Extremities Exam Absent: cyanosis, clubbing, edema - *Routine Skin Exam Present: warm, wounds. Absent: rash - *Routine Neurological Exam Present: alert, oriented X3 - Routine Psychiatric Exam Present: normal affect Assessment and Plan (1) Anemia Status: Acute Qualifiers: Anemia type: unspecified type Qualified Code(s): D64.9 - Anemia, unspecified Category: Medical Code(s): D64.9 - Anemia, unspecified (2) Occult blood positive stool Status: Acute Category: Medical Code(s): R19.5 - Other fecal abnormalities (3) Abdominal pain Status: Acute Qualifiers: Abdominal location: epigastric Qualified Code(s): R10.13 - Epigastric pain Category: Medical Code(s): R10.9 - Unspecified abdominal pain (4) CVA (cerebral vascular accident) Status: Acute Qualifiers: CVA mechanism: unspecified Qualified Code(s): I63.9 - Cerebral infarction, unspecified Category: Medical Code(s): I63.9 - Cerebral infarction, unspecified (5) Chest pain Status: Acute Qualifiers: Chest pain type: precordial pain Qualified Code(s): R07.2 - Precordial pain Category: Medical Code(s): R07.9 - Chest pain, unspecified (6) Near syncope Status: Acute Category: Medical Code(s): R55 - Syncope and collapse (7) Pulmonary HTN Status: Acute Category: Medical Code(s): I27.20 - Pulmonary hypertension, unspecified (8) A-fib Status: Chronic Qualifiers: Atrial fibrillation type: paroxysmal Qualified Code(s): I48.0 - Paroxysmal atrial fibrillation Category: Medical Code(s): I48.91 - Unspecified atrial fibrillation (9) CAD (coronary artery disease) Status: Chronic Qualifiers: Coronary Disease-Associated Artery/Lesion type: unspecified vessel or lesion type [place] vs. transplanted heart: [place] heart Associated angina: with stable angina Qualified Code(s): I25.118 - Atherosclerotic heart disease of [place] coronary artery with other forms of angina pectoris Category: Medical Code(s): I25.10 - Atherosclerotic heart disease of [place] coronary artery without angina pectoris (10) Obesity (BMI 30.0-34.9) Status: Chronic Category: Medical Code(s): E66.9 - Obesity, unspecified (11) Visual impairment Status: Chronic Category: Medical Code(s): H54.7 - Unspecified visual loss (12) Postoperative ileus Status: Acute Category: Medical Code(s): K91.89 - Other postprocedural complications and disorders of digestive system; K56.7 - Ileus, unspecified (13) Phys
[2020-10-13 15:26] VITALS: BP 98/55; PULSE 75; RESP 16; TEMP 37.1; O2SAT 98
[2020-10-13 19:41] VITALS: O2SAT 95
[2020-10-13 20:00] VITALS: BP 125/70; PULSE 77; RESP 17; TEMP 36.6; O2SAT 97
--- NOTE | 2020-10-13 20:20 | PC.NURSE ---
A&O and able to make needs known. VSS. Pt has ambulated in silva this shift. CB in reach. Have encouraged pt to be up to chair this shift. Pt has continued to use IS this shift, as encouraged. PICC to [facility]. Oncoming RN aware of need for PICC dsg to be changed. Pt has tolerated diet well this shift. BM X 1.
[2020-10-14] VITALS: BP 124/62; PULSE 64; RESP 16; TEMP 36.6; O2SAT 98
[2020-10-14 04:00] VITALS: BP 115/88; PULSE 76; RESP 18; TEMP 36.9; O2SAT 96
[2020-10-14 05:00] VITALS: BMI 26.4
[2020-10-14 08:00] VITALS: BP 118/87; PULSE 81; RESP 18; TEMP 36.7; O2SAT 100
--- NOTE | 2020-10-14 08:38 | HMH.GSPN ---
Subjective Patient reports: feels better, flatus, bowel movement Narrative: Tolerating soft diet Progress Note: A&P (1) Anemia Status: Acute (2) Occult blood positive stool Status: Acute (3) Abdominal pain Status: Acute (4) CVA (cerebral vascular accident) Status: Acute (5) Chest pain Status: Acute (6) Near syncope Status: Acute (7) Pulmonary HTN Status: Acute (8) A-fib Status: Chronic (9) CAD (coronary artery disease) Status: Chronic (10) Obesity (BMI 30.0-34.9) Status: Chronic (11) Visual impairment Status: Chronic (12) Postoperative ileus Status: Acute Assessment and plan: Profound/extended postoperative ileus now showing consistent signs of resolution. Continue soft diet (13) Physical deconditioning Status: Acute (14) Malignant neoplasm of colon Status: Acute Assessment and plan: Further management to be discussed as an outpatient Exam Vital signs and Labs for Last 24 Hours: Temp Pulse Resp BP Pulse Ox 98.5 F 76 18 115/88 96 10/14/20 04:00 10/14/20 04:00 10/14/20 04:00 10/14/20 04:00 10/14/20 04:00 I & O for Last 24 hours: Intake & Output 10/11/20 10/12/20 10/13/20 10/14/20 11:59 11:59 11:59 11:59 Intake Total 1340 / 1340 2330 / 2330 5710 / 5710 1230 / 1230 Output Total 450 / 450 1751 / 2526 1078 / 1078 200 / 200 Balance 890 / 890 579 / -196 4632 / 4632 1030 / 1030 Weight 218 lb 0.2 oz 215 lb 214 lb 15.987 oz 217 lb 4.8 oz - Constitutional no acute distress - *Routine Respiratory Exam Absent: respiratory distress - *Routine Cardiovascular Exam Absent: tachycardia - *Routine Abdominal Exam Present: soft
--- NOTE | 2020-10-14 09:18 | HMH.ACPN2 ---
Internal Medicine - PN: Subj *Date: 10/14/20 *Time: 19:33 Interval history: 70-year-old man sitting up in chair resting quietly, denies any chest pain or respiratory distress during the night. He reports he is feeling better today and is tolerating a bland diet denies any nausea or vomiting. Reports having a normal bowel movement. Encouraged him to be up and walking in room Exam Vital signs and Labs for Last 24 Hours: Temp Pulse Resp BP Pulse Ox 98.0 F 81 18 118/87 100 10/14/20 08:00 10/14/20 08:00 10/14/20 08:00 10/14/20 08:00 10/14/20 08:00 I & O for Last 24 hours: Intake & Output 10/11/20 10/12/20 10/13/20 10/14/20 23:59 23:59 23:59 23:59 Intake Total 1970 / 1970 1920 / 1920 5980 / 5980 480 / 480 Output Total 200 / 550 2628 / 2629 201 / 201 Balance 1770 / 1420 -708 / -709 5779 / 5779 480 / 480 Weight 218 lb 0.2 oz 215 lb 214 lb 15.987 oz 217 lb 4.8 oz - Constitutional no acute distress - *Routine HEENT Exam Head: Present: normocephalic Eye: Present: EOMI ENT: Present: mucous membranes moist Comments: Legally blind - *Routine Neck Exam Present: trachea midline. Absent: tracheal deviation - *Routine Respiratory Exam Present: CTA bilaterally. Absent: accessory muscle use - *Routine Cardiovascular Exam Present: RRR - *Routine Abdominal Exam Present: soft, normoactive bowel sounds, tenderness, wound. Absent: firm Comments: Midline incision edges well approximated, no redness or warmth, [place] and Steri-Strips intact, little dark dried blood in umbilicus - *Routine Extremities Exam Present: edema, full ROM, pulses intact, calf tenderness. Absent: cyanosis, clubbing - *Routine Skin Exam Present: intact, erythema, dry, warm, wounds Comments: Midline incision edges well approximated, no redness or warmth, [place] and Steri-Strips intact, little dark dried blood in umbilicus - *Routine Neurological Exam Present: alert, oriented X3. Absent: motor deficit, pronator drift - Routine Psychiatric Exam Present: normal affect, normal thought process. Absent: auditory hallucinations, visual hallucinations Assessment and Plan (1) Anemia Status: Acute Qualifiers: Anemia type: unspecified type Qualified Code(s): D64.9 - Anemia, unspecified Category: Medical Code(s): D64.9 - Anemia, unspecified (2) Occult blood positive stool Status: Acute Category: Medical Code(s): R19.5 - Other fecal abnormalities (3) Abdominal pain Status: Acute Qualifiers: Abdominal location: epigastric Qualified Code(s): R10.13 - Epigastric pain Category: Medical Code(s): R10.9 - Unspecified abdominal pain (4) CVA (cerebral vascular accident) Status: Acute Qualifiers: CVA mechanism: unspecified Qualified Code(s): I63.9 - Cerebral infarction, unspecified Category: Medical Code(s): I63.9 - Cerebral infarction, unspecified (5) Chest pain Status: Acute Qualifiers: Chest pain type: precordial pain Qualified Code(s): R07.2 - Precordial pain Category: Medical Code(s): R07.9 - Chest pain, unspecified (6) Near syncope Status: Acute Category: Medical Code(s): R55 - Syncope and collapse (7) Pulmonary HTN Status: Acute Category: Medical Code(s): I27.20 - Pulmonary hypertension, unspecified (8) A-fib Status: Chronic Qualifiers: Atrial fibrillation type: paroxysmal Qualified Code(s): I48.0 - Paroxysmal atrial fibrillation Category: Medical Code(s): I48.91 - Unspecified atrial fibrillation (9) CAD (coronary artery disease) Status: Chronic Qualifiers: Coronary Disease-Associated Artery/Lesion type: unspecified vessel or lesion type [place] vs. transplanted heart: [place] heart Associated angina: with stable angina Qualified Code(s): I25.118 - Atherosclerotic heart disease of [place] coronary artery with other forms of angina pectoris Category: Medical Code(s): I25.10 - Atherosclerotic
[2020-10-14 09:45] LABS: Chloride 110 mmol/L (98-107)
[2020-10-14 09:46] LABS: Potassium 4.9 mmoL/L (3.5-5.1); Sodium 139 mmol/L (136-145)
[2020-10-14 09:48] LABS: Alanine Aminotransferase 27 U/L (12-78); Aspartate Amino Transferase 29 U/L (17-59); Blood Urea Nitrogen 58 mg/dl (9-20); Creatinine Clearance Estimated 40 mL/min (50-200); Estimated Glomerular Filt Rate 28 ml/min (>60); GFR (African American) 34 ML/MIN (>60)
[2020-10-14 09:49] LABS: Albumin Level 4.1 g/dl (3.5-5.0); Albumin/Globulin Ratio 1.1 (1.1-1.8); Alkaline Phosphatase 99 U/L (38-126); Anion Gap 17.9 mEq/L (5-15); Bilirubin,Total 0.3 mg/dl (0.2-1.3); Calcium 9.4 mg/dl (8.4-10.2); Carbon Dioxide 16 mmol/L (22.0-30.0); Cholesterol 82 mg/dl (140-200); Globulin 3.7 g/dL (1.3-3.2); Glucose 126 mg/dl (74-100); Total Protein,Serum 7.8 g/dl (6.3-8.2); Triglycerides 139 mg/dl (30-150)
[2020-10-14 09:52] LABS: Basophils # 0.1 K/mm3 (0-0.2); Basophils % 0.9 % (0.1-2.0); Eosinophils # 0.2 K/mm3 (0.0-0.4); Hematocrit 33.7 % (42.0-52.0); Hemoglobin 10.7 g/dL (14.1-18.0); Lymphocytes # 1.1 K/mm3 (0.7-4.5); Lymphocytes % 10.9 % (10-50); Mean Corpuscular HGB Conc 31.8 g/dL (31.8-35.4); Mean Corpuscular Hemoglobin 26.3 pg (27.0-31.2); Mean Corpuscular Volume 82.7 fl (80-94); Mean Platelet Volume 8.3 fl (7.4-10.4); Monocytes # 0.9 K/mm3 (0.1-1.0); Monocytes % 8.5 % (1.7-9.3); Neutrophils # 7.9 K/mm3 (1.8-7.8); Neutrophils % 77.6 % (37.0-80.0); Platelet Count 469 K/mm3 (142-424); Red Blood Count 4.08 M/mm3 (4.60-6.20); Red Cell Distribution Width 16.2 % (11.5-17.5); White Blood Count 10.2 K/mm3 (4.8-10.8)
--- NOTE | 2020-10-14 11:17 | SW/DCPLANNER ---
Addendum entered by Raysa Blanca 10/16/20 11:43: Danielle with [facility] has stated that they will transport this patient today. Addendum entered by Raysa Blanca 10/16/20 09:32: The plan is for this patient to discharge to [facility] today. I have informed Danielle Reyna and additional COVID swab will be ordered today prior to discharge. Addendum entered by Raysa Blanca 10/15/20 09:25: This patient will require an additional COVID swab prior to discharge. Original Note: [facility] has stated that she can accept this patient once medically stable for discharge. I have informed Danielle that patient may be stable for discharge within the next couple days.
[2020-10-14 12:00] VITALS: BP 143/77; PULSE 80; RESP 20; TEMP 37.1; O2SAT 94
--- NOTE | 2020-10-14 14:25 | PC.NURSE ---
patient has done well this shift. he has had no complaints. been up to chair and participated with pt and walked in silva. tolerating diet at this time. stated i want a cheeseburger . mood has been good. rings out as needed. turns self in bed. vitals stable.
[2020-10-14 16:00] VITALS: BP 132/69; PULSE 67; RESP 20; TEMP 36.9; O2SAT 98
[2020-10-14 20:00] VITALS: BP 149/79; PULSE 75; RESP 18; TEMP 37; O2SAT 100
--- NOTE | 2020-10-15 03:18 | PC.NURSE ---
A&Ox4. VSS. No complaints of pain. No n/v.No further concerns voiced to RN.
[2020-10-15 04:00] VITALS: BP 150/70; PULSE 77; RESP 18; TEMP 36.7; O2SAT 96
[2020-10-15 05:00] VITALS: BMI 25.2
[2020-10-15 06:15] LABS: Chloride 112 mmol/L (98-107); Potassium 5.1 mmoL/L (3.5-5.1); Sodium 141 mmol/L (136-145)
[2020-10-15 06:17] LABS: Basophils # 0.1 K/mm3 (0-0.2); Basophils % 0.8 % (0.1-2.0); Eosinophils # 0.3 K/mm3 (0.0-0.4); Eosinophils % 3.8 % (0.1-12.0); Hematocrit 31.6 % (42.0-52.0); Hemoglobin 10.2 g/dL (14.1-18.0); Lymphocytes # 1.3 K/mm3 (0.7-4.5); Lymphocytes % 15.2 % (10-50); Mean Corpuscular HGB Conc 32.4 g/dL (31.8-35.4); Mean Corpuscular Hemoglobin 26.4 pg (27.0-31.2); Mean Corpuscular Volume 81.5 fl (80-94); Mean Platelet Volume 8.2 fl (7.4-10.4); Monocytes # 0.7 K/mm3 (0.1-1.0); Monocytes % 8.7 % (1.7-9.3); Neutrophils % 71.6 % (37.0-80.0); Platelet Count 426 K/mm3 (142-424); Red Blood Count 3.88 M/mm3 (4.60-6.20); White Blood Count 8.4 K/mm3 (4.8-10.8)
[2020-10-15 06:18] LABS: Blood Urea Nitrogen 55 mg/dl (9-20); Creatinine Clearance Estimated 37 mL/min (50-200); Estimated Glomerular Filt Rate 27 ml/min (>60); GFR (African American) 32 ML/MIN (>60)
[2020-10-15 06:19] LABS: Anion Gap 19.1 mEq/L (5-15); Calcium 9.2 mg/dl (8.4-10.2); Carbon Dioxide 15 mmol/L (22.0-30.0); Glucose 91 mg/dl (74-100)
[2020-10-15 08:00] VITALS: BP 137/82; PULSE 73; RESP 18; TEMP 36.9; O2SAT 93
--- NOTE | 2020-10-15 08:39 | HMH.GSPN ---
Subjective Patient reports: no new complaints, bowel movement Progress Note: A&P (1) Anemia Status: Acute (2) Occult blood positive stool Status: Acute (3) Abdominal pain Status: Acute (4) CVA (cerebral vascular accident) Status: Acute (5) Chest pain Status: Acute (6) Near syncope Status: Acute (7) Pulmonary HTN Status: Acute (8) A-fib Status: Chronic (9) CAD (coronary artery disease) Status: Chronic (10) Obesity (BMI 30.0-34.9) Status: Chronic (11) Visual impairment Status: Chronic (12) Postoperative ileus Status: Resolved (13) Physical deconditioning Status: Acute (14) Malignant neoplasm of colon Status: Acute Assessment and Plan for All Diagnoses:: Overall, continuing to improve. Placement as per primary service for continued rehabilitation/care Outpatient evaluation with regard to further treatment options for colon malignancy Exam Vital signs and Labs for Last 24 Hours: Temp Pulse Resp BP Pulse Ox 98.4 F 73 18 137/82 93 L 10/15/20 08:00 10/15/20 08:00 10/15/20 08:00 10/15/20 08:00 10/15/20 08:00 Laboratory Results - last 24 hr 10/14/20 09:25: WBC 10.2, RBC 4.08 L, Hgb 10.7 L, Hct 33.7 L, MCV 82.7, MCH 26.3 L, MCHC 31.8, RDW 16.2, Plt Count 469 H, MPV 8.3, Neut % (Auto) 77.6, Lymph % (Auto) 10.9, [place] % (Auto) 8.5, Eos % (Auto) 2.0, Baso % (Auto) 0.9, Neut # (Auto) 7.9 H, Lymph # (Auto) 1.1, [place] # (Auto) 0.9, Eos # (Auto) 0.2, Baso # (Auto) 0.1 10/14/20 09:25: Sodium 139, Potassium 4.9, Chloride 110 H, Carbon Dioxide 16 L, Anion Gap 17.9 H, BUN 58 H, Creatinine 2.30 H D, Estimated Creat Clear 40, Estimated GFR 28 L, Est GFR ( Amer) 34 L, Glucose 126 H, Calcium 9.4, Total Bilirubin 0.3, AST 29, ALT 27, Alkaline Phosphatase 99, Total Protein 7.8, Albumin 4.1, Globulin 3.7 H, Albumin/Globulin Ratio 1.1, Triglycerides 139, Cholesterol 82 L 10/15/20 05:30: WBC 8.4, RBC 3.88 L, Hgb 10.2 L, Hct 31.6 L, MCV 81.5, MCH 26.4 L, MCHC 32.4, RDW 16.0, Plt Count 426 H, MPV 8.2, Neut % (Auto) 71.6, Lymph % (Auto) 15.2, [place] % (Auto) 8.7, Eos % (Auto) 3.8, Baso % (Auto) 0.8, Neut # (Auto) 6.0, Lymph # (Auto) 1.3, [place] # (Auto) 0.7, Eos # (Auto) 0.3, Baso # (Auto) 0.1 10/15/20 05:30: Sodium 141, Potassium 5.1, Chloride 112 H, Carbon Dioxide 15 L, Anion Gap 19.1 H, BUN 55 H, Creatinine 2.40 H, Estimated Creat Clear 37, Estimated GFR 27 L, Est GFR ( Amer) 32 L, Glucose 91 D, Calcium 9.2 I & O for Last 24 hours: Intake & Output 10/12/20 10/13/20 10/14/20 10/15/20 11:59 11:59 11:59 11:59 Intake Total 2330 / 2330 5710 / 5710 1710 / 1710 1475 / 1475 Output Total 1751 / 2526 1078 / 1078 200 / 200 750 / 750 Balance 579 / -196 4632 / 4632 1510 / 1510 725 / 725 Weight 215 lb 214 lb 15.987 oz 217 lb 4.8 oz 207 lb 9.6 oz - Constitutional no acute distress - *Routine Respiratory Exam Absent: respiratory distress - *Routine Cardiovascular Exam Absent: tachycardia - *Routine Abdominal Exam Present: soft
[2020-10-15 11:07] VITALS: BP 128/67; PULSE 78; RESP 18; TEMP 36.9; O2SAT 94
[2020-10-15 15:08] VITALS: BP 143/60; PULSE 76; RESP 18; TEMP 37.1; O2SAT 96
--- NOTE | 2020-10-15 17:12 | HMH.ACPN2 ---
Internal Medicine - PN: Subj *Date: 10/15/20 *Time: 08:10 Interval history: pt sitting up in bed states he ate a good breakfast and feels well. Exam Vital signs and Labs for Last 24 Hours: Temp Pulse Resp BP Pulse Ox 98.8 F 76 18 143/60 H 96 10/15/20 15:08 10/15/20 15:08 10/15/20 15:08 10/15/20 15:08 10/15/20 15:08 Laboratory Results - last 24 hr 10/15/20 05:30: WBC 8.4, RBC 3.88 L, Hgb 10.2 L, Hct 31.6 L, MCV 81.5, MCH 26.4 L, MCHC 32.4, RDW 16.0, Plt Count 426 H, MPV 8.2, Neut % (Auto) 71.6, Lymph % (Auto) 15.2, [place] % (Auto) 8.7, Eos % (Auto) 3.8, Baso % (Auto) 0.8, Neut # (Auto) 6.0, Lymph # (Auto) 1.3, [place] # (Auto) 0.7, Eos # (Auto) 0.3, Baso # (Auto) 0.1 10/15/20 05:30: Sodium 141, Potassium 5.1, Chloride 112 H, Carbon Dioxide 15 L, Anion Gap 19.1 H, BUN 55 H, Creatinine 2.40 H, Estimated Creat Clear 37, Estimated GFR 27 L, Est GFR ( Amer) 32 L, Glucose 91 D, Calcium 9.2 I & O for Last 24 hours: Intake & Output 10/13/20 10/14/20 10/15/20 10/16/20 11:59 11:59 11:59 11:59 Intake Total 5710 / 5710 1710 / 1710 1475 / 1475 600 / 600 Output Total 1078 / 1078 200 / 200 750 / 750 Balance 4632 / 4632 1510 / 1510 725 / 725 600 / 600 Weight 214 lb 15.987 oz 217 lb 4.8 oz 207 lb 9.6 oz - Constitutional no acute distress - *Routine HEENT Exam Head: Present: normocephalic ENT: Present: mucous membranes moist Comments: blind - *Routine Neck Exam Present: supple. Absent: lymphadenopathy - *Routine Respiratory Exam Present: CTA bilaterally - *Routine Cardiovascular Exam Present: RRR - *Routine Abdominal Exam Present: soft, normoactive bowel sounds. Absent: tenderness - *Routine Extremities Exam Absent: cyanosis, clubbing, edema - *Routine Skin Exam Present: warm, wounds. Absent: rash Comments: midline abd incision healing well - *Routine Neurological Exam Present: alert, oriented X3 - Routine Psychiatric Exam Present: normal affect Assessment and Plan (1) Anemia Status: Acute Qualifiers: Anemia type: unspecified type Qualified Code(s): D64.9 - Anemia, unspecified Category: Medical Code(s): D64.9 - Anemia, unspecified (2) Occult blood positive stool Status: Acute Category: Medical Code(s): R19.5 - Other fecal abnormalities (3) Abdominal pain Status: Acute Qualifiers: Abdominal location: epigastric Qualified Code(s): R10.13 - Epigastric pain Category: Medical Code(s): R10.9 - Unspecified abdominal pain (4) CVA (cerebral vascular accident) Status: Acute Qualifiers: CVA mechanism: unspecified Qualified Code(s): I63.9 - Cerebral infarction, unspecified Category: Medical Code(s): I63.9 - Cerebral infarction, unspecified (5) Chest pain Status: Acute Qualifiers: Chest pain type: precordial pain Qualified Code(s): R07.2 - Precordial pain Category: Medical Code(s): R07.9 - Chest pain, unspecified (6) Near syncope Status: Acute Category: Medical Code(s): R55 - Syncope and collapse (7) Pulmonary HTN Status: Acute Category: Medical Code(s): I27.20 - Pulmonary hypertension, unspecified (8) A-fib Status: Chronic Qualifiers: Atrial fibrillation type: paroxysmal Qualified Code(s): I48.0 - Paroxysmal atrial fibrillation Category: Medical Code(s): I48.91 - Unspecified atrial fibrillation (9) CAD (coronary artery disease) Status: Chronic Qualifiers: Coronary Disease-Associated Artery/Lesion type: unspecified vessel or lesion type [place] vs. transplanted heart: [place] heart Associated angina: with stable angina Qualified Code(s): I25.118 - Atherosclerotic heart disease of [place] coronary artery with other forms of angina pectoris Category: Medical Code(s): I25.10 - Atherosclerotic heart disease of [place] coronary artery without angina pectoris (10) Obesity (BMI 30.0-34.9) Status: Chronic Category: Medical Code(s): E66.9 - Obesity, uns
[2020-10-15 20:00] VITALS: BP 150/91; PULSE 72; RESP 18; TEMP 36.9; O2SAT 100
--- NOTE | 2020-10-15 20:02 | PC.NURSE ---
PICC dsg changed per sterile technique to FRANCO. Looks good with no s/s of any problems.
--- NOTE | 2020-10-16 03:13 | PC.NURSE ---
Patient is A&O. No complaints of pain. Patient rested well throughout shift. No complaints of n/v. Ambulated to bathroom for bowel movement. no further concerns
[2020-10-16 03:27] VITALS: BP 160/99; PULSE 72; RESP 18; TEMP 37; O2SAT 98
[2020-10-16 05:00] VITALS: BMI 25.8
[2020-10-16 05:32] LABS: Basophils # 0.1 K/mm3 (0-0.2); Basophils % 0.9 % (0.1-2.0); Eosinophils # 0.3 K/mm3 (0.0-0.4); Eosinophils % 3.5 % (0.1-12.0); Hematocrit 30.6 % (42.0-52.0); Hemoglobin 9.9 g/dL (14.1-18.0); Lymphocytes # 1.2 K/mm3 (0.7-4.5); Lymphocytes % 14.7 % (10-50); Mean Corpuscular HGB Conc 32.5 g/dL (31.8-35.4); Mean Corpuscular Hemoglobin 26.5 pg (27.0-31.2); Mean Corpuscular Volume 81.5 fl (80-94); Mean Platelet Volume 7.6 fl (7.4-10.4); Monocytes # 0.6 K/mm3 (0.1-1.0); Monocytes % 7.3 % (1.7-9.3); Neutrophils % 73.6 % (37.0-80.0); Platelet Count 431 K/mm3 (142-424); Red Blood Count 3.75 M/mm3 (4.60-6.20); Red Cell Distribution Width 15.9 % (11.5-17.5); White Blood Count 8.1 K/mm3 (4.8-10.8)
[2020-10-16 05:36] LABS: Chloride 116 mmol/L (98-107); Potassium 4.9 mmoL/L (3.5-5.1); Sodium 141 mmol/L (136-145)
[2020-10-16 05:39] LABS: Blood Urea Nitrogen 45 mg/dl (9-20); Creatinine Clearance Estimated 41 mL/min (50-200); Estimated Glomerular Filt Rate 30 ml/min (>60); GFR (African American) 36 ML/MIN (>60)
[2020-10-16 05:40] LABS: Anion Gap 14.9 mEq/L (5-15); Calcium 8.8 mg/dl (8.4-10.2); Carbon Dioxide 15 mmol/L (22.0-30.0); Glucose 90 mg/dl (74-100)
--- NOTE | 2020-10-16 06:48 | HMH.GSPN ---
Subjective Patient reports: no new complaints, flatus, bowel movement Progress Note: A&P (1) Anemia Status: Acute (2) Occult blood positive stool Status: Acute (3) Abdominal pain Status: Acute (4) CVA (cerebral vascular accident) Status: Acute (5) Chest pain Status: Acute (6) Near syncope Status: Acute (7) Pulmonary HTN Status: Acute (8) A-fib Status: Chronic (9) CAD (coronary artery disease) Status: Chronic (10) Obesity (BMI 30.0-34.9) Status: Chronic (11) Visual impairment Status: Chronic (12) Postoperative ileus Status: Resolved Assessment and plan: Profound and prolonged ileus has now seemingly resolved. (13) Physical deconditioning Status: Acute (14) Malignant neoplasm of colon Status: Acute Assessment and plan: Overall, doing fairly well status post right colectomy. Likely discharge soon with outpatient surgical and oncologic follow-up. Exam Vital signs and Labs for Last 24 Hours: Temp Pulse Resp BP Pulse Ox 98.6 F 72 18 160/99 H 98 10/16/20 03:27 10/16/20 03:27 10/16/20 03:27 10/16/20 03:27 10/16/20 03:27 Laboratory Results - last 24 hr 10/16/20 05:21: WBC 8.1, RBC 3.75 L, Hgb 9.9 L, Hct 30.6 L, MCV 81.5, MCH 26.5 L, MCHC 32.5, RDW 15.9, Plt Count 431 H, MPV 7.6, Neut % (Auto) 73.6, Lymph % (Auto) 14.7, [place] % (Auto) 7.3, Eos % (Auto) 3.5, Baso % (Auto) 0.9, Neut # (Auto) 6.0, Lymph # (Auto) 1.2, [place] # (Auto) 0.6, Eos # (Auto) 0.3, Baso # (Auto) 0.1 10/16/20 05:21: Sodium 141, Potassium 4.9, Chloride 116 H, Carbon Dioxide 15 L, Anion Gap 14.9, BUN 45 H, Creatinine 2.20 H, Estimated Creat Clear 41, Estimated GFR 30 L, Est GFR ( Amer) 36 L, Glucose 90, Calcium 8.8 I & O for Last 24 hours: Intake & Output 10/13/20 10/14/20 10/15/20 10/16/20 11:59 11:59 11:59 11:59 Intake Total 5710 / 5710 1710 / 1710 1475 / 1475 2883 / 2883 Output Total 1078 / 1078 200 / 200 750 / 750 401 / 401 Balance 4632 / 4632 1510 / 1510 725 / 725 2482 / 2482 Weight 214 lb 15.987 oz 217 lb 4.8 oz 207 lb 9.6 oz 212 lb 5.984 oz - Constitutional no acute distress - *Routine Respiratory Exam Absent: respiratory distress - *Routine Cardiovascular Exam Absent: tachycardia - *Routine Abdominal Exam Present: soft
[2020-10-16 08:00] VITALS: BP 133/91; PULSE 81; RESP 18; TEMP 36.9; O2SAT 99
--- NOTE | 2020-10-16 10:05 | HMH.CONS ---
*Admission Date: 09/23/20 *History of present illness: Patient is a 70-year-old male who is a resident of [facility] with a history of atrial fibrillation, congestive heart failure, coronary artery disease, cerebrovascular accident, lower extremity deep vein thrombosis, hypertension, lung disease, renal insufficiency. Patient is on Xarelto. He had an apparent syncopal episode with dizziness. He was therefore transported to [facility] emergency department. He was found to have anemia with a hemoglobin of 5.6. he had a colonoscopy demonstrating a mass. he is now s/p hemicolectomy. 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 scan of abd/pelvis does not demonstrate metastatic disease. pt hgb today is 10.7. he states he is eating better and feeling stronger. he is going to be discharged to [facility] for a few weeks then back to [facility] per the pt. [facility] History Medical History: Reports:: Atrial Fibrillation, Congestive Heart Failure, Coronary Artery Disease, Cerebrovascular Accident, Deep Vein Thrombosis, Gastroesophageal Reflux Disease(GERD), Hyperlipidemia, Hypertension, Lung Disease, Kidney Stones, Renal Insufficiency, Urinary Tract Infection Denies:: Cancer, Diabetes Mellitus Type 1, Diabetes Mellitus Type 2, Internal Pacemaker, MRSA, Seizures *Have you ever received a pneumonia vaccine?: No *Have you received a flu vaccine this season?: No Other Medical History: Reports: Anemia, Arthritis. Denies: Blood Transfusion Reaction Anesthesia experience/problems:: nac Laterality Cases: Bilateral: Arthroscopy Knee Other Surgeries: Yes: No Previous Surgery, Appendectomy, Cardiac Catheterization, Cardiac Surgery, Coronary Stent, Skin Cancer Excision, Other (blood clot in leg in the past). No: Pacemaker Amputation: No Fractures: No - *Social History Smoking Status: Former smoker Tobacco Type: cigarettes # Packs/Day (cigarettes): 1 Alcohol Intake: never Substance Use Type: denies use *Occupational Status:: disabled Housing: assisted living facility Household Members: none *Travel in the last 8 weeks: None Family Hx:: Unable to obtain Review of Systems - *Neurologic Reports dizziness, Denies abnormal hearing Meds Home Medications Medication Instructions Recorded Confirmed Type OXcarbazepine [Trileptal 300mg 300 mg PO BID 08/20/18 09/24/20 History tablet] Aspirin [Aspirin 81mg chewable 81 mg PO DAILY 04/08/19 09/24/20 History tab] Pantoprazole Sodium [Protonix 40mg 40 mg PO DAILY 04/08/19 09/24/20 History tablet] Simvastatin 20 mg PO HS 04/08/19 09/24/20 History tramadol 50 mg tablet 50 mg PO Q6HP PRN #120 tab 05/09/20 09/24/20 Rx amlodipine 10 mg tablet 10 mg PO BID #60 tab 06/04/20 09/24/20 Rx Tamsulosin HCl [Flomax 0.4mg 0.4 mg PO HS 07/08/20 09/24/20 History capsule] Isosorbide Mononitrate [Isosorbide 30 mg PO DAILY 07/09/20 09/24/20 History Mononitrate ER] Mag Carb/Aluminum Hydrox/Algin 30 ml PO Q4HP PRN 07/09/20 09/23/20 History [Acid Gone Antacid Liquid] Metoprolol Succinate [Metoprolol 200 mg PO DAILY 07/09/20 09/24/20 History Succinate 200mg Tablet*] timoloL maleate [Timolol Maleate] 1 drp EYE-BOTH DAILY 07/09/20 09/24/20 History Loperamide HCl [Loperamide] 2 mg PO Q6HP PRN 08/18/20 09/23/20 History ondansetron HCL [Ondansetron 4mg 4 mg PO Q4HP PRN 08/18/20 09/23/20 History tab*] Rivaroxaban [Xarelto 20mg Tablet*] 20 mg PO DAILY 09/23/20 09/24/20 History Allergies Allergy/AdvReac Type Severity Reaction Status Date / Time No Known Allergies Allergy Verified 09/23/20 14:00 Exam Vital signs and Labs for Last 24 Hours: Temp Pulse Resp BP Pulse Ox 98.6 F 72 18 160/99 H 98 10/16/20 03:27 10/16/20 03:27 10/16/20 03:27 10/16/20 03:27 10/16/20 03:27 Laboratory Results - last 24 hr 10/16/20 05:21: WBC 8.1, RBC 3.75 L, Hgb 9.9 L, Hct 30.6 L, MCV 81.5, MCH 26.5 L, MCHC 32.5, RDW 15.9, Plt Count
[2020-10-16 10:21] LABS: Coronavirus 19, PCR Not Detected (NotDetected); Influenza A, PCR Not Detected (NotDetected); Influenza B, PCR Not Detected (NotDetected)
--- NOTE | 2020-10-16 10:24 | HMH.DCSUM ---
General - General Admission date:: 09/23/20 Discharge date: 10/16/20 HPI HPI: 70-year-old male who is a resident of [facility] with a history of atrial fibrillation, congestive heart failure, coronary artery disease, cerebrovascular accident, lower extremity deep vein thrombosis, hypertension, lung disease, renal insufficiency. Presented to ed with c/o dizziness,chest pain and shortness of air. Patient is on Xarelto. He was found to have anemia with a hemoglobin of 5.6. Patient admitted for anemia and surgery consult. Hospital Course Hospital Course: 70-year-old male who is a resident of [facility] with a history of atrial fibrillation, congestive heart failure, coronary artery disease, cerebrovascular accident, lower extremity deep vein thrombosis, hypertension, lung disease, renal insufficiency. Presented to ed with c/o dizziness,chest pain and shortness of air. Patient is on Xarelto. He was found to have anemia with a hemoglobin of 5.6. Patient admitted for anemia and surgery consult. EGD was performed and revealed Mild antral gastritis and No obvious evidence of upper GI bleeding source Colonoscopy was performed and revealed: Bowel prep moderate Scattered diverticulosis (worse in sigmoid) Tortuous colon Patulous sigmoid Polyps (see specimens) Friable cecal mass He was seen by general surgery and had a colonoscopy demonstrating a mass. Afterwards he underwent a right hemicolectomy with specimen sent. Pathology demonstrated adenocarcinoma arising from adenoma with 1 of 11 lymph nodes positive. After surgery he experienced an extended postoperative ileus and was the recipient of a NG tube for several days. During his extended postoperative ileus. He did experience several days of nausea that were treated with antiemetics with good effect. Due to n.p.o. status to allow bowels to rest and ileus to resolve he was started on TPN for several days which he tolerated without difficulty it did appear to decrease his kidney function slightly but with normal saline and TPN discontinuance, kidney function has returned to baseline. During his stay he has received a total of 6 units of packed red blood cells with a hemoglobin of 5.6 and hematocrit of 18.8 at lowest and today hemoglobin 9.9 and hematocrit 30.6 SARS-COV-2 PCR negative 10/09/20 Abd/Pelvis CT: FINDINGS: LOWER THORAX: Atelectatic changes noted in the right lung base with small right pleural effusion. The atelectasis has shown some improvement. ABDOMEN & PELVIS: Elevated right hemidiaphragm. There are several small hypodense lesions of the liver measuring up to 10 mm in the hepatic dome a and may represent hepatic cyst being present on 02/03/2017. The gallbladder and spleen and adrenal glands have an unremarkable appearance. There are numerous bilateral renal cyst and multiple bilateral renal calculi. No hydronephrosis or ureteral calculi. Unremarkable appearing pancreas. There is persistent dilated loops of small bowel with air-fluid levels throughout the small bowel. Prior right hemicolectomy with intro colic anastomosis in the mid abdominal region slightly toward the right moderate amount high density contrast is present within the small bowel on the right with prominent artifact. There is a small amount of high density contrast within the large bowel as well. There is colonic diverticulosis. The prostate is enlarged at 6 cm. Bone island is present in the left femoral neck. No obvious abscess apparent. IMPRESSION: 1. No evidence of an abscess. 2. Postsurgical changes from recent right hemicolectomy. There remains dilated loops of small bowel with air-fluid levels with significant artifact from the recent small bowel follow-through. Overall, the small bowel dilatation has shown some improvement. The small bowel is not significantly dilated just proximal to the anastomosis. Overall, the findings may be related to ileus
--- NOTE | 2020-10-16 13:06 | PC.NURSE ---
Report given to Casie at [facility] at this time.
--- NOTE | 2020-10-16 14:37 | PC.NURSE ---
Casie stated she would make a f/u appt with Dr. Mckeon for pt in one week as ordered.
--- NOTE | 2020-10-16 14:38 | PC.NURSE ---
PICC to FRANCO removed w/o difficulty.
== END 2020-10-16 13:05 | DRG 330 ==
LOC: ER 15:21 → 2ND 19:31
PROVIDERS: Family Medicine; Nurse Practitioner Family; Surgery; Admitting Provider Emergency Medicine; Emergency Provider Emergency Medicine; PCP Emergency Medicine; Visit Provider Emergency Medicine
PROC: 0DJ08ZZ Inspection of Upper Intestinal Tract, Via Natural or Artificial Opening Endoscopic (ICD-10-PCS; CPT 43235; principal; 2020-09-24 08:00)
PROC: 0DJD8ZZ Inspection of Lower Intestinal Tract, Via Natural or Artificial Opening Endoscopic (ICD-10-PCS; principal; 2020-09-25 12:00)
PROC: 0DBF0ZZ Excision of Right Large Intestine, Open Approach (ICD-10-PCS; CPT 44140; principal; 2020-09-29 07:30)
DX: C18.0 Malignant neoplasm of cecum (principal); C77.2 Secondary and unspecified malignant neoplasm of intra-abdominal lymph nodes; I13.0 Hypertensive heart and chronic kidney disease with heart failure and stage 1 through stage 4 chronic kidney disease, or unspecified chronic kidney disease; K56.7 Ileus, unspecified; K56.600 Partial intestinal obstruction, unspecified as to cause; Z20.822 Contact with and (suspected) exposure to COVID-19; Z79.01 Long term (current) use of anticoagulants; I27.20 Pulmonary hypertension, unspecified; K21.9 Gastro-esophageal reflux disease without esophagitis; J44.9 Chronic obstructive pulmonary disease, unspecified; Z95.5 Presence of coronary angioplasty implant and graft; Z79.899 Other long term (current) drug therapy; I48.0 Paroxysmal atrial fibrillation; D50.0 Iron deficiency anemia secondary to blood loss (chronic); N18.2 Chronic kidney disease, stage 2 (mild); D63.0 Anemia in neoplastic disease; Z87.891 Personal history of nicotine dependence; Z85.828 Personal history of other malignant neoplasm of skin; M19.90 Unspecified osteoarthritis, unspecified site; Z87.442 Personal history of urinary calculi; E78.5 Hyperlipidemia, unspecified; Z86.73 Personal history of transient ischemic attack (TIA), and cerebral infarction without residual deficits; E66.9 Obesity, unspecified; Z68.25 Body mass index [BMI] 25.0-25.9, adult; H54.7 Unspecified visual loss; I25.118 Atherosclerotic heart disease of native coronary artery with other forms of angina pectoris; B96.1 Klebsiella pneumoniae [K. pneumoniae] as the cause of diseases classified elsewhere; K29.60 Other gastritis without bleeding; Z86.718 Personal history of other venous thrombosis and embolism; I50.9 Heart failure, unspecified; D63.1 Anemia in chronic kidney disease
CPT/HCPCS: 45380; 43235; 36415; 36569; 71045; 71046; 74021; 74176; 74177; 74250; 80048; 80053; 80202; 81001; 82040; 82272; 82378; 82465; 82962; 83605; 83690; 83735; 84100; 84478; 84484; 85007; 85014; 85018; 85025; 86850; 87070; 87077; 87186; 87205; 88305; 88309; 88342; 93005; 94761; 97110; 97116; 97162; 97163; 97166; 97530; 99285; 99291; C1751; G0328; J1956; J2405; J2543; J2710; J3370; P9016; Q9967; U0003

== ENCOUNTER → 2020-10-30 15:34 | Outpatient (CLI) | payer MEDICARE, MEDICAID, SELFPAY ==
[2020-10-30 16:07] LABS: Basophils % 0.4 % (0.1-2.0); Eosinophils # 0.5 K/mm3 (0.0-0.4); Eosinophils % 6.3 % (0.1-12.0); Hematocrit 26.8 % (42.0-52.0); Hemoglobin 8.7 g/dL (14.1-18.0); Lymphocytes # 1.3 K/mm3 (0.7-4.5); Lymphocytes % 17.9 % (10-50); Mean Corpuscular HGB Conc 32.5 g/dL (31.8-35.4); Mean Corpuscular Hemoglobin 26.7 pg (27.0-31.2); Mean Corpuscular Volume 82.3 fl (80-94); Monocytes # 0.5 K/mm3 (0.1-1.0); Monocytes % 6.3 % (1.7-9.3); Platelet Count 257 K/mm3 (142-424); Red Blood Count 3.26 M/mm3 (4.60-6.20); Red Cell Distribution Width 17.7 % (11.5-17.5); White Blood Count 7.2 K/mm3 (4.8-10.8)
[2020-10-30 16:42] LABS: Chloride 107 mmol/L (98-107); Sodium 142 mmol/L (136-145)
[2020-10-30 16:43] LABS: Potassium 4.6 mmoL/L (3.5-5.1)
[2020-10-30 16:45] LABS: Alanine Aminotransferase 12 U/L (12-78); Albumin Level 3.6 g/dl (3.5-5.0); Albumin/Globulin Ratio 1.2 (1.1-1.8); Alkaline Phosphatase 63 U/L (38-126); Anion Gap 12.6 mEq/L (5-15); Aspartate Amino Transferase 20 U/L (17-59); Blood Urea Nitrogen 19 mg/dl (9-20); Calcium 8.9 mg/dl (8.4-10.2); Carbon Dioxide 27 mmol/L (22.0-30.0); Estimated Glomerular Filt Rate 37 ml/min (>60); GFR (African American) 45 ML/MIN (>60); Globulin 2.9 g/dL (1.3-3.2); Glucose 104 mg/dl (74-100); Iron 35 ug/dL (49-181); Total Protein,Serum 6.5 g/dl (6.3-8.2)
[2020-10-30 16:50] LABS: Bilirubin,Total 0.1 mg/dl (0.2-1.3)
[2020-10-30 16:55] LABS: Total Iron Binding Capacity 319 ug/dL (261-462)
[2020-10-30 17:20] LABS: Ferritin 28.1 ng/ml (17.9-464)
[2020-11-01 10:14] LABS: CEA 1.8 ng/mL (0.0-4.7)
== END ==
PROVIDERS: Urology; Visit Provider Nurse Practitioner Family
DX: C18.9 Malignant neoplasm of colon, unspecified (principal); D50.9 Iron deficiency anemia, unspecified
CPT/HCPCS: 36415; 80053; 82378; 82728; 83540; 83550; 85025

== ENCOUNTER 2020-12-09 18:53 | Emergency (ER) | payer MEDICARE, MEDICAID, SELFPAY ==
[2020-12-09] VITALS (9 sets, daily range): BP systolic 124–155; BP diastolic 71–87; PULSE 68–75; RESP 18–22; TEMP 36.7; O2SAT 96–98; BMI 28.7
--- NOTE | 2020-12-09 18:32 | CT_ITS ---
PROCEDURE INFORMATION: Exam: CT Abdomen And Pelvis With Contrast Exam date and time: 12/09/2020 6:32 PM Age: 70 years old Clinical indication: Flank; Patient HX: Right sided abdominal pain all day today. Patient recently had kidney stones removed he stated. ; Additional info: Abd pain TECHNIQUE: Imaging protocol: Computed tomography of the abdomen and pelvis with contrast. Radiation optimization: All CT scans at this facility use at least one of these dose optimization techniques: automated exposure control; mA and/or kV adjustment per patient size (includes targeted exams where dose is matched to clinical indication); or iterative reconstruction. Contrast material: ISOVUE; Contrast volume: 95 ml; Contrast route: IV; COMPARISON: CT ABDOMEN PELVIS WO CON 10/09/2020 10:21 AM FINDINGS: Lungs: Scarring in the lung bases. Liver: Tiny too small to characterize hypodense liver lesions could reflect cysts. Gallbladder and bile ducts: Normal. No calcified stones. No ductal dilation. Pancreas: Normal. No ductal dilation. Spleen: Normal. No splenomegaly. Adrenal glands: Normal. No mass. Kidneys and ureters: Innumerable bilateral renal cysts. Punctate nonobstructing bilateral renal stones. No hydronephrosis. Stomach and bowel: Diverticulosis in the sigmoid without diverticulitis. Ascending colectomy. No small bowel obstruction. Appendix: No evidence of appendicitis. Intraperitoneal space: Unremarkable. No free air. No significant fluid collection. Vasculature: Unremarkable. No abdominal aortic aneurysm. Lymph nodes: Unremarkable. No enlarged lymph nodes. Urinary bladder: Unremarkable as visualized. Reproductive: Unremarkable as visualized. Bones/joints: Degenerative changes in the lumbar spine. Soft tissues: Unremarkable. IMPRESSION: No acute intra-abdominal or intrapelvic process. Nonemergent findings as above. COMMENTS: Consistent with the [place] [employer]'s Incidental Findings Committee white paper (J Am Rupa Radiol 2018): Any incidental renal lesion less than 1 cm or classified as too small to characterize, or any incidental cystic renal lesion characterized as simple-appearing, is likely benign. No follow-up imaging is recommended for these lesions per consensus recommendations based on imaging criteria.
[2020-12-09 18:46] LABS: Eosinophils # 0.3 K/mm3 (0.0-0.4); Lymphocytes # 1.4 K/mm3 (0.7-4.5); Red Cell Distribution Width 23.5 % (11.5-17.5)
[2020-12-09 18:51] LABS: Chloride 111 mmol/L (98-107); Sodium 144 mmol/L (136-145)
[2020-12-09 18:53] LABS: Alanine Aminotransferase 14 U/L (12-78); Aspartate Amino Transferase 26 U/L (17-59); Blood Urea Nitrogen 18 mg/dl (9-20); Creatinine Clearance Estimated 59 mL/min (50-200); Estimated Glomerular Filt Rate 40 ml/min (>60); GFR (African American) 48 ML/MIN (>60)
[2020-12-09 18:54] LABS: Microscopic, Urine URINE MICROSCOPIC (MICROSCOPIC)
[2020-12-09 18:54] LABS: Albumin Level 3.8 g/dl (3.5-5.0); Albumin/Globulin Ratio 1.3 (1.1-1.8); Alkaline Phosphatase 55 U/L (38-126); Calcium 8.8 mg/dl (8.4-10.2); Carbon Dioxide 24 mmol/L (22.0-30.0); Globulin 2.9 g/dL (1.3-3.2); Glucose 110 mg/dl (74-100); Lipase 59 U/L (23-300); Total Protein,Serum 6.7 g/dl (6.3-8.2)
[2020-12-09 18:57] LABS: Appearance,Urine CLEAR (Clear); Bilirubin,Urine Negative (Negative); Blood, Urine 2+ (Negative); Color,Urine YELLOW (Yellow); Glucose,Urine (UA) Negative (Negative); Ketones,Urine Negative (Negative); Leukocyte Esterase,Urine TRACE (Negative); Nitrate,Urine Negative (Negative); Protein,Urine Negative (Negative); Urobilinogen,Urine 0.2 EU/dl (0.2)
[2020-12-09 19:00] LABS: Bilirubin,Total < 0.1 mg/dl (0.2-1.3)
[2020-12-09 19:06] LABS: Basophils # 0.1 K/mm3 (0-0.2); Basophils % 1.2 % (0.1-2.0); Eosinophils % 5.2 % (0.1-12.0); Hematocrit 26.5 % (42.0-52.0); Hemoglobin 8.1 g/dL (14.1-18.0); Lymphocytes % 24.6 % (10-50); Mean Corpuscular HGB Conc 30.5 g/dL (31.8-35.4); Mean Corpuscular Hemoglobin 28.3 pg (27.0-31.2); Mean Corpuscular Volume 92.8 fl (80-94); Mean Platelet Volume 8.4 fl (7.4-10.4); Monocytes # 0.4 K/mm3 (0.1-1.0); Neutrophils # 3.7 K/mm3 (1.8-7.8); Neutrophils % 63.1 % (37.0-80.0); Platelet Count 382 K/mm3 (142-424); Red Blood Count 2.85 M/mm3 (4.60-6.20); White Blood Count 5.8 K/mm3 (4.8-10.8)
[2020-12-09 19:10] LABS: Lactic Acid 1.4 mmol/L (0.7-2.1)
[2020-12-09 19:15] LABS: Bacteria,Urine 2+ /lpf; RBC,Urine 20-50 #/hpf (0-3)
--- NOTE | 2020-12-09 19:19 | HMH.EDABDPAI ---
ED Disposition Condition on Discharge: Fair - Critical Care Critical Care Time: No <Alisha Arellano - Last Filed: 12/09/20 20:00> <Shaquille Bowden - Last Filed: 12/09/20 21:22> Clinical Impression: Abdominal pain Qualifiers: Abdominal location: right lower quadrant Qualified Code(s): R10.31 - Right lower quadrant pain Disposition: Home, Self-Care Instructions: DI for Acute Abdominal Pain Additional Instructions: see pcp for follow up Referrals: Provider,Referral, MD [Primary Care Provider] - Attestation: On 12/09/20, the high probability of a clinically significant, sudden or life threatening deterioration of the following system(s) required my full and direct attention, intervention and personal management. The time I documented below is in addition to time spent performing reported procedures but includes the following listed in this critical care notation. Medical Decision Making - Medical Records Medical records reviewed: Yes: I reviewed the patient's medical records. - [place] Inquiry Pt receiving controlled substance: No - Lab Data Result diagrams: 12/09/20 18:20 12/09/20 18:20 <Alisha Arellano - Last Filed: 12/09/20 20:00> - Lab Data Result diagrams: 12/09/20 18:20 12/09/20 18:20 <Shaquille Bowden - Last Filed: 12/09/20 21:22> Vital Signs: 12/09/20 18:31 Temperature 98.1 F Temperature Source Oral Pulse Rate [Right Radial] 75 Respiratory Rate 22 Blood Pressure [Right Arm] 124/75 Blood Pressure Mean [Right Arm] 91 Blood Pressure Source [Right Arm] Automatic Cuff Blood Pressure Position [Right Arm] Sitting 02 Sat by Pulse Oximetry 98 Oxygen Delivery Method Room Air - Lab Data Lab Results 12/09/20 18:20: WBC 5.8, RBC 2.85 L, Hgb 8.1 L, Hct 26.5 L, MCV 92.8, MCH 28.3, MCHC 30.5 L, RDW 23.5 H, Plt Count 382, MPV 8.4, Neut % (Auto) 63.1, Lymph % (Auto) 24.6, [place] % (Auto) 6.0, Eos % (Auto) 5.2, Baso % (Auto) 1.2, Neut # (Auto) 3.7, Lymph # (Auto) 1.4, [place] # (Auto) 0.4, Eos # (Auto) 0.3, Baso # (Auto) 0.1 12/09/20 18:20: Sodium 144, Potassium 4.0, Chloride 111 H, Carbon Dioxide 24, Anion Gap 13.0, BUN 18, Creatinine 1.70 H, Estimated Creat Clear 59, Estimated GFR 40 L, Est GFR ( Amer) 48 L, Glucose 110 H, Calcium 8.8, Total Bilirubin < 0.1 L, AST 26, ALT 14, Alkaline Phosphatase 55, Total Protein 6.7, Albumin 3.8, Globulin 2.9, Albumin/Globulin Ratio 1.3, Lipase 59 12/09/20 18:20: Troponin I < 0.01 12/09/20 18:45: Urine Color Yellow, Urine Appearance Clear, Urine pH 7.0, Ur Specific [place] 1.010, Urine Protein Negative, Urine Glucose (UA) Negative, Urine Ketones Negative, Urine Blood 2+, Urine Nitrate Negative, Urine Bilirubin Negative, Urine Urobilinogen 0.2, Ur Leukocyte Esterase Trace, Urine RBC 20-50, Urine WBC 5-10, Ur Squamous Epith Cells 3-5, Urine Bacteria 2+ 12/09/20 18:54: Lactate 1.4 Orders (Tests/Meds): ED MEDICATIONS Discontinued Medications Generic Name Dose Route Start Last Admin Trade Name Freq PRN Reason Stop Dose Admin Iopamidol 75 ml 12/09/20 19:40 12/09/20 19:41 Iopamidol-370 (76%);100ml Bottle IV 12/09/20 19:41 75 ml ONCE ONE Administration Sodium Chloride 10 ml 12/09/20 19:40 12/09/20 19:41 Sodium Chloride 0.9% 10ml Syr (Rad Only) IV 12/09/20 19:41 10 ml ONCE ONE Administration ORDERS Category Date Time Status Troponin I Q3H Lab 12/09/20 23:49 Ordered Troponin I Q3H Lab 12/10/20 02:49 Ordered Urine Culture Stat Micro 12/09/20 18:45 Received Medical Decision Narrative: In summary this is a very pleasant 70-year-old gentleman presenting to the emergency department with right-sided abdominal pain from [facility]. Patient clinically stable on arrival. Vital signs within normal limits. He is quite tender to palpation on the right. Concern for nephrolithiasis, pyelonephritis, bowel obstruction, colitis. Will obtain CBC, CMP, lipase, lactic acid, urinalysis, CT scan of the abdomen and pelvis. L
--- NOTE | 2020-12-09 20:55 | ECG_ITS ---
APPROVED REPORT Exam: Resting ECG HR:75 bpm ECG Measurements Heart Rate 75 AXES VT 170 P 53 QRSd 102 QRS -23 QT 418 T 23 QTc 466 Conclusion Normal sinus rhythm Normal ECG Electronically signed by : Syed Modi MD 12/10/2020 11:18:53
[2020-12-09 21:20] LABS: Troponin I < 0.01 ng/ml (0.00-0.034)
== END 2020-12-09 23:56 | disposition home or self-care (01) ==
PROVIDERS: Emergency Provider Emergency Medicine
DX: R10.31 Right lower quadrant pain (principal); D64.9 Anemia, unspecified; R30.0 Dysuria; I48.0 Paroxysmal atrial fibrillation; I25.10 Atherosclerotic heart disease of native coronary artery without angina pectoris; K21.9 Gastro-esophageal reflux disease without esophagitis; Z79.899 Other long term (current) drug therapy
CPT/HCPCS: 74177; 80053; 81001; 83605; 83690; 84484; 85025; 87086; 93005; 99284; Q9967

== ENCOUNTER 2020-12-12 08:10 | Outpatient (CLI) | payer MEDICARE, MEDICAID, SELFPAY ==
[2020-12-12] VITALS (22 sets, daily range): BP systolic 103–128; BP diastolic 53–76; PULSE 62–71; RESP 16–18; TEMP 36.4–36.8; O2SAT 97–98; BMI 27.5
[2020-12-12 09:22] LABS: Hematocrit 25.2 % (42.0-52.0); Hemoglobin 7.8 g/dL (14.1-18.0)
--- NOTE | 2020-12-12 14:48 | PC.NURSE ---
1050 Initiation of transfusion of 1st unit of PRBC at this time. Vital signs stable. Resp easy/reg. Lungs CTA. Educated patient regarding s/s of transfusion reaction, with patient verbalizing understanding of all instruction. IV patent. Skin warm/dry to touch. Denies complaints. 1120 Patient tolerating blood well with no problems noted. VSS. Resp easy/reg. Denies compalints. 1150 Patient continues to tolerate blood well with no s/s transfusion reaction or problems noted. VSS. IV patent. Patient talking and laughing with staff. Continues to deny complaints. 1300 1st unit of PRBC complete at this time. Patient tolerated well with no s/s transfusion reaction or problems noted. Resp easy/reg. Lungs CTA. Patient denies any complaints or problems.
--- NOTE | 2020-12-12 15:51 | PC.NURSE ---
1311 Initiation of transfusion of 2nd unit PRBC at this time. VSS. IV patent. Resp easy/reg. Skin warm/dry. Reviewed s/s transfusion reaction with patient, who verbalizes understanding of all instruction. Lungs CTA. 1321 Patient tolerating blood well. Patient denies complaints. 1356 VSS. IV patent. Resp easy/reg. Patient denies complaints and is tolerating blood well at this time. Skin warm/dry to touch. Dozes at intervals. 1511 Tolerating blood well. Patient denies c/o.VSS. No problems/no s/s transfusion reaction. 1522 2nd unit PRBC complete at this time. Patient has tolerated well with no s/s transfusion reaction or issues noted. VSS. Lungs CTA. Skin warm/dry to touch. Resp easy/reg. Patient laughs and talks with staff.
--- NOTE | 2020-12-12 16:35 | PC.NURSE ---
1630 Detailed report called to Lucia Vann at [place].
[2020-12-12 17:20] LABS: Hematocrit 30.5 % (42.0-52.0)
[2020-12-12 17:29] LABS: Hemoglobin 9.9 g/dL (14.1-18.0)
== END 2020-12-12 16:29 | disposition home or self-care (01) ==
LOC: INF 08:12
PROVIDERS: PCP Emergency Medicine; Visit Provider Emergency Medicine
DX: D64.9 Anemia, unspecified (principal)
CPT/HCPCS: 36430; 85014; 85018; 86850; P9016

== ENCOUNTER → 2020-12-16 07:48 | Outpatient (CLI) | payer MEDICARE, SELFPAY ==
--- NOTE | 2020-12-16 07:50 | US_ITS ---
PROCEDURE: US GALLBLADDER CLINICAL INDICATION: ABD PAIN,ABN IMAGING COMPARISON: CT CT ABDOMEN PELVIS W CON from 12/09/2020 FINDINGS: Pancreas: Pancreas is not well delineated due to overlying bowel gas. Liver: The numerous small cystic lesions noted on the previous CT scan are not well demonstrated on the ultrasound.. There is appropriate direction of blood flow within a non dilated portal vein. Right kidney: Multiple right renal cysts. Gallbladder: No gallstones. No gallbladder wall thickening or pericholecystic fluid. Common bile duct is normal at 4 mm. IMPRESSION: No acute finding. No evidence of cholelithiasis. Multiple right renal cysts. Dictated by: Edwar Mckay MD 12/16/2020 16:15 Edwar Mckay MD in [place] 12/16/2020 16:15
== END ==
PROVIDERS: PCP Emergency Medicine; Visit Provider Nurse Practitioner Family
DX: R10.11 Right upper quadrant pain (principal)
CPT/HCPCS: 76705

== ENCOUNTER 2020-12-16 13:55 | Emergency (ER) | payer MEDICARE, SELFPAY ==
[2020-12-16 13:56] VITALS: BP 139/77; PULSE 76; RESP 20; TEMP 36.7; O2SAT 97; BMI 29.0
--- NOTE | 2020-12-16 14:04 | ECG_ITS ---
APPROVED REPORT Exam: Resting ECG HR:78 bpm ECG Measurements Heart Rate 78 AXES RI 182 P 12 QRSd 102 QRS -35 QT 390 T 19 QTc 444 Conclusion Normal sinus rhythm Left axis deviation Abnormal ECG Electronically signed by : Syed Modi MD 12/18/2020 17:51:11
--- NOTE | 2020-12-16 14:13 | XR_ITS ---
PROCEDURE: XR CHEST PORTABLE CLINICAL HISTORY: cp Chest pain COMPARISON: CR XR CHEST PORTABLE from 10/10/2020 CR XR CHEST PORTABLE from 10/11/2020 CR XR CHEST 2V from 10/13/2020 FINDINGS: There is cardiomegaly without failure. There are low lung volumes. Mild atelectatic changes right lung base. Mild right basilar atelectasis. No lobar consolidation or collapse. No acute bony abnormalities. IMPRESSION: Mild right basilar atelectasis with cardiomegaly Dictated by: Edwar Mckay MD 12/16/2020 14:33 Edwar Mckay MD in [place] 12/16/2020 14:33
--- NOTE | 2020-12-16 14:14 | HMH.EDGENADL ---
ED Disposition Clinical Impression: Abdominal pain Qualifiers: Abdominal location: right upper quadrant Qualified Code(s): R10.11 - Right upper quadrant pain Disposition: Home, Self-Care Condition on Discharge: Good Prescriptions: Cefdinir [Omnicef 300mg Capsule] 300 mg PO BID #14 cap Prescription Printed Referrals: Shaquille Bowden MD [Primary Care Provider] - 3 days Time of Disposition: 16:52 - Critical Care Critical Care Time: No Attestation: On , the high probability of a clinically significant, sudden or life threatening deterioration of the following system(s) required my full and direct attention, intervention and personal management. The time I documented below is in addition to time spent performing reported procedures but includes the following listed in this critical care notation. Medical Decision Making - Medical Records Medical records reviewed: Yes: I reviewed the patient's medical records. - [facility] Inquiry Pt receiving controlled substance: No Vital Signs: 12/16/20 13:56 12/16/20 14:46 12/16/20 16:10 Temperature 98.1 F Temperature Source Oral Pulse Rate 71 70 Pulse Rate [Right] 76 Respiratory Rate 20 16 16 Blood Pressure 152/92 H 147/86 H Blood Pressure [Right Arm] 139/77 Blood Pressure Mean [Right Arm] 97 Blood Pressure Source Automatic Cuff Automatic Cuff Blood Pressure Source [Right Arm] Automatic Cuff Blood Pressure Position Sitting Sitting Blood Pressure Position [Right Arm] Sitting 02 Sat by Pulse Oximetry 97 94 L 94 L Oxygen Delivery Method Room Air Room Air Room Air - Lab Data Lab results reviewed: Yes: I reviewed the patient's lab results. Lab Results 12/16/20 14:17: WBC 15.1 H, RBC 3.34 L, Hgb 9.9 L, Hct 31.1 L, MCV 92.9, MCH 29.5, MCHC 31.7 L, RDW 22.7 H, Plt Count 287, MPV 8.6, Neut % (Auto) 85.0 H, Lymph % (Auto) 7.0 L, [place] % (Auto) 6.4, Eos % (Auto) 1.3, Baso % (Auto) 0.3, Neut # (Auto) 12.9 H, Lymph # (Auto) 1.1, [place] # (Auto) 1.0, Eos # (Auto) 0.2, Baso # (Auto) 0.0, Total Counted 100, Neutrophils % (Manual) 86 H, Lymphocytes % (Manual) 7 L, Monocytes % (Manual) 7, Platelet Estimate Normal, Ovalocytes 1+, Schistocytes 1+ 12/16/20 14:17: Sodium 140, Potassium 4.4, Chloride 108 H, Carbon Dioxide 24, Anion Gap 12.4, BUN 21 H, Creatinine 1.80 H, Estimated GFR 37 L, Est GFR ( Amer) 45 L, Glucose 125 H, Calcium 9.0, Total Bilirubin 0.5, AST 22, ALT 15, Alkaline Phosphatase 56, Troponin I 0.02, Total Protein 6.8, Albumin 3.8, Globulin 3.0, Albumin/Globulin Ratio 1.3 Result diagrams: 12/16/20 14:17 12/16/20 14:17 Orders (Tests/Meds): ED MEDICATIONS Generic Name Dose Route Start Last Admin Trade Name Freq PRN Reason Stop Dose Admin Piperacillin Sod/Tazobactam 50 mls @ 100 mls/hr 12/16/20 16:15 12/16/20 16:21 Sod 3.375 gm/ Sodium Chloride IV 12/30/20 16:14 100 mls/hr Q8H [facility] Administration Discontinued Medications Generic Name Dose Route Start Last Admin Trade Name Freq PRN Reason Stop Dose Admin Belladonna Alkaloids 60 ml 12/16/20 14:13 12/16/20 14:56 Gi Cocktail 60ml Udc PO 12/16/20 14:14 60 ml ONCE ONE Administration ORDERS Category Date Time Status Troponin I Q3H Lab 12/16/20 17:15 Ordered Troponin I Q3H Lab 12/16/20 20:15 Ordered Urinalysis and Microscopic Stat Lab 12/16/20 16:23 Received - ECG Data Tracing #1 I reviewed this ECG and interpreted as documented below: Normal sinus rhythm, 78 bpm, possible incomplete right bundle branch block, no ST elevation or depression. ECG initial impression date: 12/16/20 ECG initial impression time: 14:12 Medical Decision Narrative: 70yo M evaluated for subxiphoid chest pain. Differential includes GERD/acute cholecystitis. Patient's gallbladder ultrasound has not been read yet but we called radiology and requested a read as the patient is a white count of 15. His EKG is unremarkable. Troponin is measurable at 0.02 but the patient has had a tr
[2020-12-16 14:29] LABS: Basophils % 0.3 % (0.1-2.0); Eosinophils # 0.2 K/mm3 (0.0-0.4); Eosinophils % 1.3 % (0.1-12.0); Hematocrit 31.1 % (42.0-52.0); Hemoglobin 9.9 g/dL (14.1-18.0); Lymphocytes # 1.1 K/mm3 (0.7-4.5); Mean Corpuscular HGB Conc 31.7 g/dL (31.8-35.4); Mean Corpuscular Hemoglobin 29.5 pg (27.0-31.2); Mean Corpuscular Volume 92.9 fl (80-94); Mean Platelet Volume 8.6 fl (7.4-10.4); Monocytes % 6.4 % (1.7-9.3); Neutrophils # 12.9 K/mm3 (1.8-7.8); Platelet Count 287 K/mm3 (142-424); Red Blood Count 3.34 M/mm3 (4.60-6.20); Red Cell Distribution Width 22.7 % (11.5-17.5); White Blood Count 15.1 K/mm3 (4.8-10.8)
[2020-12-16 14:33] LABS: Chloride 108 mmol/L (98-107); Potassium 4.4 mmoL/L (3.5-5.1); Sodium 140 mmol/L (136-145)
[2020-12-16 14:36] LABS: Alanine Aminotransferase 15 U/L (12-78); Albumin Level 3.8 g/dl (3.5-5.0); Albumin/Globulin Ratio 1.3 (1.1-1.8); Alkaline Phosphatase 56 U/L (38-126); Anion Gap 12.4 mEq/L (5-15); Aspartate Amino Transferase 22 U/L (17-59); Bilirubin,Total 0.5 mg/dl (0.2-1.3); Blood Urea Nitrogen 21 mg/dl (9-20); Carbon Dioxide 24 mmol/L (22.0-30.0); Estimated Glomerular Filt Rate 37 ml/min (>60); GFR (African American) 45 ML/MIN (>60); Glucose 125 mg/dl (74-100); MANUAL DIFFERENTIAL MANUAL DIFFERENTIAL (MANUAL DIFF); Total Protein,Serum 6.8 g/dl (6.3-8.2)
[2020-12-16 14:46] VITALS: BP 152/92; PULSE 71; RESP 16; O2SAT 94
[2020-12-16 14:53] LABS: Lymphocytes % 7 % (10-50); Monocytes % 7 % (2-9); Neutrophils % 86 % (42-76); Ovalocytes 1+; Platelet Estimate Normal; Schistocytes 1+; Total Cells Counted 100
[2020-12-16 14:57] LABS: Troponin I 0.02 ng/ml (0.00-0.034)
[2020-12-16 16:10] VITALS: BP 147/86; PULSE 70; RESP 16; O2SAT 94
--- NOTE | 2020-12-16 16:11 | PC.NURSE ---
called Dr. Mckay and asked him if he would read the gallbladder US from this morning. He was agreeable to go ahead and read the US.
[2020-12-16 16:40] LABS: Microscopic, Urine URINE MICROSCOPIC (MICROSCOPIC)
--- NOTE | 2020-12-16 16:48 | PC.NURSE ---
DR JEAN SPEAKING WITH DR HANDY
--- NOTE | 2020-12-16 16:54 | PC.NURSE ---
Called report to Axel. Advised she would call me back regarding the pt's ride.
[2020-12-16 17:00] LABS: Appearance,Urine CLEAR (Clear); Bilirubin,Urine Negative (Negative); Blood, Urine 3+ (Negative); Color,Urine YELLOW (Yellow); Glucose,Urine (UA) Negative (Negative); Ketones,Urine Negative (Negative); Leukocyte Esterase,Urine 2+ (Negative); Nitrate,Urine POSITIVE (Negative); Protein,Urine 2+ (Negative); Specific Gravity, Urine 1.025 (1.005-1.030); Urobilinogen,Urine 0.2 EU/dl (0.2)
[2020-12-16 17:16] LABS: Bacteria,Urine 4+ /lpf; WBC,Urine TNTC #/hpf (0-3)
[2020-12-16 17:18] VITALS: BP 149/74; PULSE 74; RESP 16; TEMP 36.8; O2SAT 96
== END 2020-12-16 17:23 | disposition home or self-care (01) ==
PROVIDERS: Emergency Provider Family Medicine; PCP Emergency Medicine
DX: R10.11 Right upper quadrant pain (principal); I25.10 Atherosclerotic heart disease of native coronary artery without angina pectoris; I48.0 Paroxysmal atrial fibrillation; K21.9 Gastro-esophageal reflux disease without esophagitis; E78.5 Hyperlipidemia, unspecified; I10 Essential (primary) hypertension; Z87.891 Personal history of nicotine dependence; Z79.899 Other long term (current) drug therapy
CPT/HCPCS: 71045; 76705; 80053; 81001; 84484; 85007; 85025; 87086; 87088; 87186; 93005; 96365; 99284; J2543

== ENCOUNTER → 2020-12-18 09:55 | Outpatient (CLI) | payer MEDICARE, SELFPAY ==
[2020-12-18 10:38] LABS: Occult Blood,Stool Negative (Negative)
== END ==
PROVIDERS: Visit Provider Emergency Medicine
DX: R19.7 Diarrhea, unspecified (principal)
CPT/HCPCS: 82272; G0328

== ENCOUNTER 2020-12-18 12:05 | Inpatient (IN) | payer MEDICARE, MEDICAID, SELFPAY ==
[2020-12-18] VITALS (15 sets, daily range): BP systolic 98–133; BP diastolic 52–78; PULSE 66–87; RESP 15–28; TEMP 36.9–38.1; O2SAT 92–99; BMI 28.7
--- NOTE | 2020-12-18 12:12 | HMH.EDGENADL ---
ED Disposition Clinical Impression: Pneumonia Qualifiers: Pneumonia type: due to unspecified organism Laterality: right Lung location: middle lobe of lung Qualified Code(s): J18.9 - Pneumonia, unspecified organism Disposition: Admitted As Inpatient Condition on Discharge: Fair Referrals: Shaquille Bowden MD [Primary Care Provider] - - Critical Care Critical Care Time: No Attestation: On , the high probability of a clinically significant, sudden or life threatening deterioration of the following system(s) required my full and direct attention, intervention and personal management. The time I documented below is in addition to time spent performing reported procedures but includes the following listed in this critical care notation. Medical Decision Making - Medical Records Medical records reviewed: Yes: I reviewed the patient's medical records. - [facility] Inquiry Pt receiving controlled substance: No Vital Signs: 12/18/20 12:05 12/18/20 12:30 12/18/20 13:00 Temperature 100.5 F H Temperature Source Oral Pulse Rate 76 75 Pulse Rate [Radial] 76 Respiratory Rate 28 H 22 22 Blood Pressure 118/67 120/55 L Blood Pressure [Right Radial Artery] 133/78 Blood Pressure Mean 84 Blood Pressure Mean [Right Radial Artery] 96 Blood Pressure Position [Right Radial Artery] Sitting 02 Sat by Pulse Oximetry 97 99 96 Oxygen Delivery Method Room Air 12/18/20 13:30 12/18/20 14:00 12/18/20 14:30 Temperature Temperature Source Pulse Rate 76 74 87 Pulse Rate [Radial] Respiratory Rate 20 21 19 Blood Pressure 120/68 112/59 L 103/66 L Blood Pressure [Right Radial Artery] Blood Pressure Mean 85 76 Blood Pressure Mean [Right Radial Artery] Blood Pressure Position [Right Radial Artery] 02 Sat by Pulse Oximetry 75 L Oxygen Delivery Method - Lab Data Lab Results 12/18/20 13:00: WBC 11.9 H, RBC 3.20 L, Hgb 9.5 L, Hct 30.9 L, MCV 96.5 H, MCH 29.8, MCHC 30.9 L, RDW 22.5 H, Plt Count 214 D, MPV 9.9, Neut % (Auto) 86.6 H, Lymph % (Auto) 7.3 L, [place] % (Auto) 4.5, Eos % (Auto) 1.2, Baso % (Auto) 0.3, Neut # (Auto) 10.3 H, Lymph # (Auto) 0.9, [place] # (Auto) 0.5, Eos # (Auto) 0.2, Baso # (Auto) 0.0, Total Counted 100, Neutrophils % (Manual) 83 H, Lymphocytes % (Manual) 7 L, Monocytes % (Manual) 9, Eosinophils % (Manual) 1, Platelet Estimate Normal, Hypochromasia 1+, Stomatocytes 1+ 12/18/20 13:00: Sodium 143, Potassium 4.7, Chloride 111 H, Carbon Dioxide 25, Anion Gap 11.7, BUN 28 H D, Creatinine 2.00 H, Estimated Creat Clear 51, Estimated GFR 33 L, Est GFR ( Amer) 40 L, Glucose 128 H, Calcium 8.4, Total Bilirubin 0.6, Direct Bilirubin 0.2, Conjugated Bilirubin 0.0, Indirect Bilirubin 0.4, Unconjugated Bilirubin 0.4, AST 42 D, ALT 13, Alkaline Phosphatase 67, Troponin I < 0.01, Total Protein 5.9 L, Albumin 3.1 L, Lipase 36 12/18/20 13:00: Lactate 1.7 12/18/20 13:00: Procalcitonin 5.21 H Result diagrams: 12/18/20 13:00 12/18/20 13:00 Orders (Tests/Meds): ED MEDICATIONS Generic Name Dose Route Start Last Admin Trade Name Freq PRN Reason Stop Dose Admin Cefepime HCl 2 gm/ Sodium 100 mls @ 200 mls/hr 12/18/20 15:00 12/18/20 15:03 Chloride IV 01/01/21 14:59 200 mls/hr Q12H [facility] Administration Azithromycin 500 mg/ Sodium 250 mls @ 250 mls/hr 12/18/20 15:30 Chloride IV 01/01/21 15:29 Q24H [facility] ORDERS Category Date Time Status Basic Metabolic Panel AMLAB Lab 12/19/20 06:00 Ordered Complete Blood Count Auto Diff AMLAB Lab 12/19/20 06:00 Ordered Phosphorous AMLAB Lab 12/19/20 06:00 Ordered Procalcitonin DAILY Lab 12/19/20 06:00 Ordered Rapid PCR Covid and Flu A/B Stat Lab 12/18/20 15:10 Received Troponin I Q3H Lab 12/18/20 15:30 Ordered Troponin I Q3H Lab 12/18/20 18:30 Ordered Blood Culture Stat Micro 12/18/20 13:00 Received Medical Decision Narrative: Mr. Toussaint is a 70-year-old male presents the ED today for evaluation of chest pain and m
--- NOTE | 2020-12-18 12:18 | ECG_ITS ---
APPROVED REPORT Exam: Resting ECG HR:77 bpm ECG Measurements Heart Rate 77 AXES GA 178 P 28 QRSd 100 QRS -33 QT 388 T 46 QTc 439 Conclusion Normal sinus rhythm Left axis deviation Abnormal ECG Electronically signed by : Syed Modi MD 12/18/2020 17:48:05
--- NOTE | 2020-12-18 12:25 | XR_ITS ---
PROCEDURE: XR CHEST PORTABLE CLINICAL HISTORY: chest pain COMPARISON: CR XR CHEST PORTABLE from 10/11/2020 CR XR CHEST 2V from 10/13/2020 CR XR CHEST PORTABLE from 12/16/2020 FINDINGS: This is a somewhat poor inspiration. Minimal atelectasis remains in the right perihilar region and right base of the right upper lung field and left lung teran are clear. There is mild or borderline cardiomegaly however there is no pulmonary congestion and there is no definite pleural fluid. IMPRESSION: Poor inspiration, persistent minimal right basilar atelectasis though a minimal developing pneumonic infiltrate cannot be entirely excluded Dictated by: Dr. Dom Clay MD 12/18/2020 12:50 Dr. Dom Clay MD in [place] 12/18/2020 12:50
[2020-12-18 13:18] LABS: Basophils % 0.3 % (0.1-2.0); Eosinophils # 0.2 K/mm3 (0.0-0.4); Eosinophils % 1.2 % (0.1-12.0); Hematocrit 30.9 % (42.0-52.0); Hemoglobin 9.5 g/dL (14.1-18.0); Lymphocytes # 0.9 K/mm3 (0.7-4.5); Lymphocytes % 7.3 % (10-50); Mean Corpuscular HGB Conc 30.9 g/dL (31.8-35.4); Mean Corpuscular Hemoglobin 29.8 pg (27.0-31.2); Mean Corpuscular Volume 96.5 fl (80-94); Mean Platelet Volume 9.9 fl (7.4-10.4); Monocytes # 0.5 K/mm3 (0.1-1.0); Monocytes % 4.5 % (1.7-9.3); Neutrophils # 10.3 K/mm3 (1.8-7.8); Neutrophils % 86.6 % (37.0-80.0); Platelet Count 214 K/mm3 (142-424); Red Cell Distribution Width 22.5 % (11.5-17.5); White Blood Count 11.9 K/mm3 (4.8-10.8)
[2020-12-18 13:22] LABS: Lactic Acid 1.7 mmol/L (0.7-2.1)
[2020-12-18 13:24] LABS: MANUAL DIFFERENTIAL MANUAL DIFFERENTIAL (MANUAL DIFF)
[2020-12-18 13:26] LABS: Chloride 111 mmol/L (98-107); Potassium 4.7 mmoL/L (3.5-5.1); Sodium 143 mmol/L (136-145)
[2020-12-18 13:28] LABS: Alanine Aminotransferase 13 U/L (12-78); Anion Gap 11.7 mEq/L (5-15); Aspartate Amino Transferase 42 U/L (17-59); Bilirubin,Unconjugated 0.4 mg/dL (0.0-1.1); Blood Urea Nitrogen 28 mg/dl (9-20); Carbon Dioxide 25 mmol/L (22.0-30.0); Creatinine Clearance Estimated 51 mL/min (50-200); Estimated Glomerular Filt Rate 33 ml/min (>60); GFR (African American) 40 ML/MIN (>60)
[2020-12-18 13:29] LABS: Albumin Level 3.1 g/dl (3.5-5.0); Alkaline Phosphatase 67 U/L (38-126); Bilirubin,Direct 0.2 mg/dl (0.0-0.4); Bilirubin,Indirect 0.4 mg/dL (0.0-0.9); Bilirubin,Total 0.6 mg/dl (0.2-1.3); Calcium 8.4 mg/dl (8.4-10.2); Glucose 128 mg/dl (74-100); Lipase 36 U/L (23-300); Total Protein,Serum 5.9 g/dl (6.3-8.2)
[2020-12-18 13:38] LABS: Eosinophils % 1 % (0-3); Hypochromasia 1+; Lymphocytes % 7 % (10-50); Monocytes % 9 % (2-9); Neutrophils % 83 % (42-76); Platelet Estimate Normal; Stomatocytes 1+; Total Cells Counted 100
[2020-12-18 13:41] LABS: Troponin I < 0.01 ng/ml (0.00-0.034)
[2020-12-18 14:16] LABS: Procalcitonin 5.21 ng/mL (0.0-2.0)
[2020-12-18 15:18] LABS: Coronavirus 19, PCR Not Detected (NotDetected); Influenza A, PCR Not Detected (NotDetected); Influenza B, PCR Not Detected (NotDetected)
--- NOTE | 2020-12-18 15:20 | PC.NURSE ---
speaking with Dr. Ray
--- NOTE | 2020-12-18 15:50 | PC.NURSE ---
second troponin sent to lab
[2020-12-18 16:32] LABS: Troponin I < 0.01 ng/ml (0.00-0.034)
[2020-12-18 17:21] LABS: Troponin I < 0.01 ng/ml (0.00-0.034)
--- NOTE | 2020-12-18 17:36 | PC.NURSE ---
report called to floor
--- NOTE | 2020-12-18 17:37 | PC.NURSE ---
pt given diet tray
--- NOTE | 2020-12-18 18:34 | PC.NURSE ---
PT ARRIVED TO THE FLOOR AT THIS TIME
--- NOTE | 2020-12-18 18:48 | PC.NURSE ---
spoke to nurse at [facility], will fax over pt's MAR and typical transfer paperwork
[2020-12-19] VITALS: BP 110/62; PULSE 61; RESP 20; TEMP 36.9; O2SAT 96
[2020-12-19 04:00] VITALS: BP 129/66; PULSE 67; RESP 18; TEMP 37.1; O2SAT 94
--- NOTE | 2020-12-19 04:15 | PC.NURSE ---
pt has been pleasant and has rested well this shift. no acute changes. iv abx therapy continued. pain controlled with new order for tylenol prn this shift. iv patent and infusing well. vss, call light in reach. will continue to monitor
[2020-12-19 05:14] VITALS: BMI 29.2
[2020-12-19 08:00] VITALS: BP 113/60; PULSE 72; RESP 19; TEMP 37.6; O2SAT 97
--- NOTE | 2020-12-19 08:02 | P.CONPHA_ITS ---
[facility] Pharmacy VTE Monitoring - Patient Demographics Admission date: 12/18/20 Report Date: 12/19/20 Time: 08:02 Allergies/Adverse Reactions: Patient Allergies No Known Allergies Allergy (Verified 12/18/20 11:21) Height: 1.93 m Weight: 108.919 kg Patient Problems: Current Active Problems Pneumonia (Acute) - VTE Risk Labs: VTE Related Lab Results Hgb 9.5 g/dL (14.1-18.0) L 12/18/20 13:00 Hct 30.9 % (42.0-52.0) L 12/18/20 13:00 Plt Count 214 K/mm3 (142-424) D 12/18/20 13:00 BUN 28 mg/dl (9-20) H D 12/18/20 13:00 Creatinine 2.00 mg/dl (0.66-1.25) H 12/18/20 13:00 Estimated Creat Clear 51 mL/min (50-200) 12/18/20 13:00 Was VTE Risk Assessment Performed: No Clinical Trial Participant: No - Prophylaxis VTE Prophylaxis Ordered?: Yes Types of VTE Prophylaxis: TEDS Knee High Location of Applied Device: Bilateral Lower Extremeties
--- NOTE | 2020-12-19 08:02 | HMH.PHAINT ---
MEDICATION RECONCILIATION COMPLETE USING LIST FROM MOST RECENT MD OFFICE VISIT AND EXTERNAL PHARMACY FILL HISTORY.
[2020-12-19 08:10] LABS: Basophils % 0.2 % (0.1-2.0); Eosinophils # 0.3 K/mm3 (0.0-0.4); Eosinophils % 3.7 % (0.1-12.0); Hematocrit 30.7 % (42.0-52.0); Hemoglobin 9.3 g/dL (14.1-18.0); Lymphocytes # 0.9 K/mm3 (0.7-4.5); Lymphocytes % 10.8 % (10-50); Mean Corpuscular HGB Conc 30.2 g/dL (31.8-35.4); Mean Corpuscular Volume 95.8 fl (80-94); Monocytes # 0.5 K/mm3 (0.1-1.0); Neutrophils # 6.5 K/mm3 (1.8-7.8); Neutrophils % 79.3 % (37.0-80.0); Platelet Count 222 K/mm3 (142-424); Red Cell Distribution Width 22.6 % (11.5-17.5); White Blood Count 8.3 K/mm3 (4.8-10.8)
[2020-12-19 08:25] LABS: Chloride 111 mmol/L (98-107); Sodium 142 mmol/L (136-145)
[2020-12-19 08:26] LABS: Potassium 4.6 mmoL/L (3.5-5.1)
[2020-12-19 08:28] LABS: Anion Gap 11.6 mEq/L (5-15); Blood Urea Nitrogen 32 mg/dl (9-20); Carbon Dioxide 24 mmol/L (22.0-30.0); Creatinine Clearance Estimated 49 mL/min (50-200); Estimated Glomerular Filt Rate 31 ml/min (>60); GFR (African American) 38 ML/MIN (>60)
[2020-12-19 08:29] LABS: Calcium 8.3 mg/dl (8.4-10.2); Glucose 87 mg/dl (74-100); Phosphorous 3.7 mg/dl (2.5-4.5)
--- NOTE | 2020-12-19 09:17 | HMH.HP ---
*Admission Date: 12/18/20 *Chief complaint: Chest Pain *History of present illness: 70-year-old male presents to the ED today for upper chest tightness of the right shoulder chest pain. Patient states that this pain has been present for the last 24 approximate hours, states that he has a mild cough associated with this and had a fever earlier today. He also has grown Klebsiella in both skin and urine, given this we will start him on broad-spectrum antibiotic coverage with cefepime and azithromycin, unable to do chest CTA due to stage III CKD 12/18/20 CXR: FINDINGS: This is a somewhat poor inspiration. Minimal atelectasis remains in the right perihilar region and right base of the right upper lung field and left lung teran are clear. There is mild or borderline cardiomegaly however there is no pulmonary congestion and there is no definite pleural fluid. IMPRESSION: Poor inspiration, persistent minimal right basilar atelectasis though a minimal developing pneumonic infiltrate cannot be entirely excluded Dictated by: Dr. Dom Clay MD [facility] History I have reviewed the patient's past medical history: Yes Medical History: Reports:: Atrial Fibrillation, Cancer, Carotid Stenosis, Congestive Heart Failure, Coronary Artery Disease, Cerebrovascular Accident, Deep Vein Thrombosis, Gastroesophageal Reflux Disease(GERD), Hyperlipidemia, Hypertension, Lung Disease, Kidney Stones, Renal Insufficiency, Urinary Tract Infection Denies:: Diabetes Mellitus Type 1, Diabetes Mellitus Type 2, Internal Pacemaker, MRSA, Seizures *Have you ever received a pneumonia vaccine?: Yes *Have you received a flu vaccine this season?: Yes Other Medical History: Reports: Anemia, Arthritis, Chemotherapy, Sinus Problems. Denies: Blood Transfusion Reaction Laterality Cases: Bilateral: Arthroscopy Knee Other Surgeries: Yes: No Previous Surgery, Appendectomy, Cardiac Catheterization, Cardiac Surgery, Colonoscopy, Colon Resection, Coronary Stent, Skin Cancer Excision, Other (blood clot in leg in the past). No: Pacemaker Amputation: No Fractures: No - *Social History Smoking Status: Former smoker Tobacco Type: cigarettes # Packs/Day (cigarettes): 1 Alcohol Intake: never Substance Use Type: denies use *Occupational Status:: disabled Housing: snf Household Members: none *Travel in the last 8 weeks: None Family Hx:: Unable to obtain Review of Systems - Review of Systems Review of systems:: pertinent systems reviewed and negative unless documented below - Constitutional Denies body ache(s), Denies lack of energy - Eyes Denies double vision, Denies discharge - ENT Denies abnormal hearing, Denies headache(s) - *Cardiovascular Reports chest pain, Reports chest pain at rest, Reports shortness of breath, Reports shortness of breath with activity - *Respiratory Reports chest congestion, Reports shortness of breath, Reports shortness of breath with activity - *Gastrointestinal Denies abdominal pain, Denies change in stools - *Musculoskeletal Denies joint pain, Denies body aches - Integumentary/Breasts Denies yellowing of the skin, Denies sensitivity to light - *Neurologic Reports abnormal walking, Denies dizziness, Denies headache(s) - Psychiatric Denies abnormal sleep pattern, Denies hearing things others do not hear - Endocrine Denies cold intolerance, Denies rapid, pounding, or irregular heartbeat - Hematologic/Lymphatic Denies easy bleeding, Denies easy bruising - Allergic/Immunologic Reports wheezing, Denies itchy eyes, Denies throat swelling Meds Home Medications Medication Instructions Recorded Confirmed Type OXcarbazepine [Trileptal 300mg 300 mg PO BID 08/20/18 12/18/20 History tablet] Aspirin [Aspirin 81mg chewable 81 mg PO DAILY 04/08/19 12/18/20 History tab] Tamsulosin HCl [Flomax 0.4mg 0.4 mg PO HS 07/08/20 12/18/20 History capsule] Isosorbide Mononi
[2020-12-19 09:23] LABS: Procalcitonin 3.89 ng/mL (0.0-2.0)
--- NOTE | 2020-12-19 09:27 | SW/DCPLANNER ---
Addendum entered by Raysa Blanca 12/22/20 09:11: I have informed Danielle that the plan is for this patient to return today. Danielle with [facility] has stated that patient will NOT need any further COVID testing prior to returning. Original Note: This patient currently resides at [facility]. I spoke with Danielle from [facility] and stated that patient is [facility] level of care. I will continue to update Danielle until patient is medically stable for discharge.
--- NOTE | 2020-12-19 09:47 | XR_ITS ---
PROCEDURE: XR CHEST PORTABLE CLINICAL HISTORY: soa COMPARISON: CR XR CHEST 2V from 10/13/2020 CR XR CHEST PORTABLE from 12/16/2020 CR XR CHEST PORTABLE from 12/18/2020 FINDINGS: This is a fairly good inspiration. There has been partial clearing of the minimal right basilar atelectasis seen on yesterday's study, doubt developing pneumonic infiltrate. The right upper lung field and left lung teran clear. Again noted is mild generalized cardiomegaly there is no pulmonary congestion. IMPRESSION: Partial interval clearing right basilar atelectasis Dictated by: Dr. Dom Clay MD 12/19/2020 10:17 Dr. Dom Clay MD in [place] 12/19/2020 10:17
--- NOTE | 2020-12-19 09:48 | CA_ITS ---
APPROVED REPORT Bilateral Lower Extremity Venous Study for DVT. Clinical Research Nurse: JAVIER Indications Lower Extremity Edema: Bilateral SOA Vein Imaging CFV (R): compressive, spontaneous, phasic, augmentation FEM (R): compressive, spontaneous, phasic, augmentation POP (R): compressive, spontaneous, phasic, augmentation PTV (R): Compressible GSV (R): compressive, spontaneous, phasic, augmentation SSV (R): Compressible Peroneals (R):Not Visualized CFV (L): compressive, spontaneous, phasic, augmentation FEM (L): compressive, spontaneous, phasic, augmentation POP (L): compressive, spontaneous, phasic, augmentation PTV (L): Compressible GSV (L): compressive, spontaneous, phasic, augmentation SSV (L): Compressible Peroneals (L):Not Visualized Findings No evidence of DVT or superficial thrombophlebitis in the veins scanned of the right lower extremity. No evidence of DVT or superficial thrombophlebitis in the veins scanned of the left lower extremity. Conclusion No evidence of DVT or superficial thrombophlebitis in the veins scanned of the right lower extremity. No evidence of DVT or superficial thrombophlebitis in the veins scanned of the left lower extremity. Electronically signed by : Edwar Mckay MD 12/23/2020 09:18:19
[2020-12-19 12:00] VITALS: BP 131/66; PULSE 73; RESP 18; TEMP 37.5; O2SAT 95
--- NOTE | 2020-12-19 15:50 | PC.NURSE ---
Routine reassessment completed. Lungs clear in [place]. Upper lobs, diminished in the bases. Pt. reports pain in right arm and shoulder rates at 3/10 as well as a headache, tylenol given, see MAR. SALVADOR in place. pt. tolerating well. No further changes noted from previous assessment. Pt. has rested well throughout shift, and has pain relief with tylenol. Pt. denies needs,call light within reach, will continue to monitor.
[2020-12-19 16:00] VITALS: BP 125/68; PULSE 77; RESP 18; TEMP 36.6; O2SAT 97
[2020-12-19 17:26] VITALS: BMI 29.2
[2020-12-19 20:00] VITALS: BP 136/72; PULSE 79; RESP 18; TEMP 37.7; O2SAT 97
[2020-12-20] VITALS (10 sets, daily range): BP systolic 130–153; BP diastolic 61–82; PULSE 73–87; RESP 16–20; TEMP 36.8–37.9; O2SAT 92–97; BMI 29.5
--- NOTE | 2020-12-20 00:38 | PC.NURSE ---
PT TEMP WAS 99.8 AT 2000,MIDNIGHTS TEMP 99.7,TYLENOL GIVEN FOR THIS AND PT SAID HIS SHOULDER HURT WHEN HE MOVED IT SO THIS WOULD HELP WITH THIS ALSO
--- NOTE | 2020-12-20 05:08 | PC.NURSE ---
PT HAS SLEPT TONIGHT,LUNGS CLEAR,DIMINISHED IN BASES,SAT.LEVEL ON RA 95%-97%,TEMP OF 99.7-99.8,TYLENOLWAS GIVEN AND PT TEMP REMAINS AT 99.8,PT RECIEVED HIS CEFEPIME THIS MORNING AND WAS SWEATING,DENIES ANY PAIN,VOIDING PER URINAL
--- NOTE | 2020-12-20 09:26 | HMH.ACPN2 ---
Internal Medicine - PN: Subj *Date: 12/20/20 *Time: 09:26 Interval history: doing better - less wheezing and more alert - sl fever last pm Exam Vital signs and Labs for Last 24 Hours: Temp Pulse Resp BP Pulse Ox 100.2 F H 85 17 149/61 H 94 L 12/20/20 08:00 12/20/20 08:00 12/20/20 08:00 12/20/20 08:00 12/20/20 08:00 Laboratory Results - last 24 hr 12/19/20 06:57: Procalcitonin 3.89 H I & O for Last 24 hours: Intake & Output 12/17/20 12/18/20 12/19/20 12/20/20 11:59 11:59 11:59 11:59 Intake Total 480 / 480 480 / 480 Output Total 75 / 450 1999 / 1999 Balance 405 / 30 -1520 / -1520 Weight 240 lb 2.012 oz 242 lb 6 oz - Constitutional no acute distress - *Routine HEENT Exam Head: Present: normocephalic Eye: Present: EOMI, PERRL ENT: Present: mucous membranes dry - *Routine Neck Exam Absent: JVD - *Routine Respiratory Exam Present: wheezes - *Routine Cardiovascular Exam Present: RRR, murmur - *Routine Abdominal Exam Present: soft. Absent: tenderness - *Routine Extremities Exam Absent: calf tenderness - *Routine Skin Exam Present: intact - *Routine Neurological Exam Present: alert, CN II-XII intact - Routine Psychiatric Exam Present: cooperative Assessment and Plan (1) Urinary tract infection due to Klebsiella species Status: Acute Category: Medical Code(s): N39.0 - Urinary tract infection, site not specified; B96.89 - Other specified bacterial agents as the cause of diseases classified elsewhere (2) Chronic renal failure, stage 3 (moderate) Status: Acute Category: Medical Code(s): N18.30 - Chronic kidney disease, stage 3 unspecified (3) SIRS (systemic inflammatory response syndrome) Status: Acute Category: Medical Code(s): R65.10 - Systemic inflammatory response syndrome (SIRS) of non-infectious origin without acute organ dysfunction (4) Pneumonia Status: Acute Qualifiers: Pneumonia type: due to unspecified organism Laterality: right Lung location: middle lobe of lung Qualified Code(s): J18.9 - Pneumonia, unspecified organism Category: Medical Code(s): J18.9 - Pneumonia, unspecified organism (5) Renal insufficiency Status: Acute Category: Medical Code(s): N28.9 - Disorder of kidney and ureter, unspecified (6) Overweight (BMI 25.0-29.9) Status: Chronic Category: Medical Code(s): E66.3 - Overweight (7) 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) Status: Acute Category: Medical Code(s): I63.9 - Cerebral infarction, unspecified; R47.1 - Dysarthria and anarthria (8) Pulmonary HTN Status: Acute Category: Medical Code(s): I27.20 - Pulmonary hypertension, unspecified (9) SOB (shortness of breath) Status: Resolved Category: Medical Code(s): R06.02 - Shortness of breath (10) CAD (coronary artery disease) Status: Chronic Qualifiers: Coronary Disease-Associated Artery/Lesion type: unspecified vessel or lesion type [place] vs. transplanted heart: [place] heart Associated angina: with stable angina Qualified Code(s): I25.118 - Atherosclerotic heart disease of [place] coronary artery with other forms of angina pectoris Category: Medical Code(s): I25.10 - Atherosclerotic heart disease of [place] coronary artery without angina pectoris (11) Chest pain in adult Status: Acute Category: Medical Code(s): R07.9 - Chest pain, unspecified (12) Anemia Status: Acute Qualifiers: Anemia type: unspecified type Qualified Code(s): D64.9 - Anemia, unspecified Category: Medical Code(s): D64.9 - Anemia, unspecified
[2020-12-21] VITALS (8 sets, daily range): BP systolic 129–145; BP diastolic 68–81; PULSE 61–77; RESP 18–20; TEMP 36.8–37.9; O2SAT 93–97; BMI 285766.9
--- NOTE | 2020-12-21 03:14 | PC.NURSE ---
No acute changes t/o shift, pt rested well with no complaints of pain or SOA. VSS, call diaz within reach, will continue to monitor.
--- NOTE | 2020-12-21 06:08 | PC.NURSE ---
Pt had temperature of 100.3 at 0400 gave 650mg of Tylenol and rechecked in 1 hour temp now 98.7.
[2020-12-21 07:25] LABS: Basophils % 0.5 % (0.1-2.0); Eosinophils # 0.2 K/mm3 (0.0-0.4); Eosinophils % 3.3 % (0.1-12.0); Hematocrit 29.1 % (42.0-52.0); Hemoglobin 8.8 g/dL (14.1-18.0); Lymphocytes # 1.3 K/mm3 (0.7-4.5); Lymphocytes % 17.9 % (10-50); Mean Corpuscular HGB Conc 30.4 g/dL (31.8-35.4); Mean Corpuscular Hemoglobin 28.4 pg (27.0-31.2); Mean Corpuscular Volume 93.3 fl (80-94); Mean Platelet Volume 8.5 fl (7.4-10.4); Monocytes # 0.6 K/mm3 (0.1-1.0); Monocytes % 8.4 % (1.7-9.3); Neutrophils % 69.9 % (37.0-80.0); Platelet Count 256 K/mm3 (142-424); Red Blood Count 3.12 M/mm3 (4.60-6.20); Red Cell Distribution Width 22.2 % (11.5-17.5); White Blood Count 7.2 K/mm3 (4.8-10.8)
[2020-12-21 08:04] LABS: Chloride 111 mmol/L (98-107)
[2020-12-21 08:05] LABS: Potassium 4.3 mmoL/L (3.5-5.1); Sodium 142 mmol/L (136-145)
[2020-12-21 08:07] LABS: Blood Urea Nitrogen 26 mg/dl (9-20); Creatinine Clearance Estimated 63 mL/min (50-200); Estimated Glomerular Filt Rate 43 ml/min (>60); GFR (African American) 52 ML/MIN (>60)
[2020-12-21 08:08] LABS: Anion Gap 12.3 mEq/L (5-15); Calcium 8.6 mg/dl (8.4-10.2); Carbon Dioxide 23 mmol/L (22.0-30.0); Glucose 89 mg/dl (74-100)
--- NOTE | 2020-12-21 11:40 | HMH.ACPN2 ---
Internal Medicine - PN: Subj *Date: 12/21/20 *Time: 11:46 Interval history: Patient complains about feeling chills this morning. He has been restless somewhat during the night. His T-max 100.3 Labs today show a hemoglobin of 8.8 creatinine 1.6 Blood cultures are negative. I reviewed his chest x-ray, radiology reports subtle changes in the right base, more atelectatic than infiltrative. However on auscultation I hear crackles at both bases. Exchange is fair, there is no active wheezing. Patient is on cefepime and azithromycin. A lower extremity duplex has been performed, results are pending. Patient reports decent appetite, decent p.o. intake. He has compression hose on, his calves are soft nontender and symmetric. Is maintaining decent oxygen saturations. Denies chest pain Exam Vital signs and Labs for Last 24 Hours: Temp Pulse Resp BP Pulse Ox 99.4 F 72 18 143/72 H 96 12/21/20 11:31 12/21/20 11:31 12/21/20 11:31 12/21/20 11:31 12/21/20 11:31 Laboratory Results - last 24 hr 12/21/20 06:35: WBC 7.2, RBC 3.12 L, Hgb 8.8 L, Hct 29.1 L, MCV 93.3, MCH 28.4, MCHC 30.4 L, RDW 22.2 H, Plt Count 256, MPV 8.5, Neut % (Auto) 69.9, Lymph % (Auto) 17.9, [place] % (Auto) 8.4, Eos % (Auto) 3.3, Baso % (Auto) 0.5, Neut # (Auto) 5.0, Lymph # (Auto) 1.3, [place] # (Auto) 0.6, Eos # (Auto) 0.2, Baso # (Auto) 0.0 12/21/20 06:35: Sodium 142, Potassium 4.3, Chloride 111 H, Carbon Dioxide 23, Anion Gap 12.3, BUN 26 H, Creatinine 1.60 H D, Estimated Creat Clear 63, Estimated GFR 43 L, Est GFR ( Amer) 52 L D, Glucose 89, Calcium 8.6 I & O for Last 24 hours: Intake & Output 10/0712/19/20 12/20/20 12/21/20 23:59 23:59 23:59 23:59 Intake Total 240 / 240 720 / 720 960 / 960 480 / 480 Output Total 1300 / 1300 1475 / 1625 150 / 150 Balance 240 / 240 -580 / -580 -515 / -665 330 / 330 Weight 236 lb 0.007 oz 240 lb 4.862 oz 242 lb 6 oz 234 lb 12.677 oz Microbiology Reports for the Last 24 Hours: Microbiology 12/18/20 13:00 Blood Blood Culture - Preliminary NO GROWTH AFTER 48 HOURS 12/18/20 13:00 Blood Blood Culture - Preliminary NO GROWTH AFTER 48 HOURS - Constitutional no acute distress, chronically ill appearing - *Routine HEENT Exam Head: Present: normocephalic Eye: Present: other. Absent: normal accommodation ENT: Present: mucous membranes moist Comments: blind ou - *Routine Neck Exam Present: supple. Absent: lymphadenopathy - *Routine Respiratory Exam Present: rhonchi, crackles. Absent: accessory muscle use, prolonged expiratory phase, wheezes Comments: bibasilar - *Routine Cardiovascular Exam Present: RRR - *Routine Abdominal Exam Present: soft, normoactive bowel sounds. Absent: tenderness - *Routine Extremities Exam Absent: cyanosis, clubbing, edema - *Routine Skin Exam Present: warm. Absent: rash - *Routine Neurological Exam Present: alert, oriented X3, normal tone, hearing grossly intact, normal speech. Absent: altered mental status, vision grossly intact Assessment and Plan (1) Urinary tract infection due to Klebsiella species Status: Acute Category: Medical Code(s): N39.0 - Urinary tract infection, site not specified; B96.89 - Other specified bacterial agents as the cause of diseases classified elsewhere (2) Chronic renal failure, stage 3 (moderate) Status: Acute Category: Medical Code(s): N18.30 - Chronic kidney disease, stage 3 unspecified (3) SIRS (systemic inflammatory response syndrome) Status: Acute Category: Medical Code(s): R65.10 - Systemic inflammatory response syndrome (SIRS) of non-infectious origin without acute organ dysfunction (4) Pneumonia Status: Acute Qualifiers: Pneumonia type: due to unspecified organism Laterality: right Lung location: middle lobe of lung Qualified Code(s): J18.9 - Pneumonia, unspecified organism Category: Medical Cod
[2020-12-22] VITALS: BP 126/71; PULSE 68; RESP 20; TEMP 37.3; O2SAT 97
[2020-12-22 04:00] VITALS: BP 141/75; PULSE 76; RESP 20; TEMP 37.4; O2SAT 96
[2020-12-22 05:00] VITALS: BMI 28.4
--- NOTE | 2020-12-22 06:00 | XR_ITS ---
PROCEDURE INFORMATION: Exam: XR Chest Exam date and time: 12/22/2020 6:00 AM Age: 70 years old Clinical indication: Cough and shortness of breath and other: Pneumonia TECHNIQUE: Imaging protocol: XR of the chest. Views: 1 view. COMPARISON: CR XR CHEST PORTABLE 12/19/2020 9:53 AM FINDINGS: Lungs: Small amount of streaky consolidation at both lung bases. This finding may be somewhat more pronounced compared to previously. The mid and upper lungs are clear. Pleural spaces: Unremarkable. No pleural effusion. No pneumothorax. Heart/Mediastinum: Mild diffuse enlargement of the heart again noted. Bones/joints: Unremarkable. IMPRESSION: Small amount of streaky consolidation at the lung bases may represent atelectasis or pneumonia.
[2020-12-22 06:19] VITALS: PULSE 73; PULSE 76; O2SAT 90
[2020-12-22 06:50] LABS: Basophils # 0.1 K/mm3 (0-0.2); Basophils % 0.7 % (0.1-2.0); Eosinophils # 0.3 K/mm3 (0.0-0.4); Hematocrit 29.8 % (42.0-52.0); Hemoglobin 9.1 g/dL (14.1-18.0); Lymphocytes # 1.4 K/mm3 (0.7-4.5); Lymphocytes % 18.8 % (10-50); Mean Corpuscular HGB Conc 30.6 g/dL (31.8-35.4); Mean Corpuscular Hemoglobin 28.2 pg (27.0-31.2); Mean Platelet Volume 8.5 fl (7.4-10.4); Monocytes # 0.5 K/mm3 (0.1-1.0); Monocytes % 7.4 % (1.7-9.3); Neutrophils % 69.1 % (37.0-80.0); Platelet Count 285 K/mm3 (142-424); Red Blood Count 3.24 M/mm3 (4.60-6.20); Red Cell Distribution Width 21.9 % (11.5-17.5); White Blood Count 7.2 K/mm3 (4.8-10.8)
[2020-12-22 07:15] LABS: Alanine Aminotransferase 17 U/L (12-78); Albumin Level 3.3 g/dl (3.5-5.0); Alkaline Phosphatase 74 U/L (38-126); Anion Gap 9.6 mEq/L (5-15); Aspartate Amino Transferase 24 U/L (17-59); Blood Urea Nitrogen 27 mg/dl (9-20); Calcium 8.7 mg/dl (8.4-10.2); Carbon Dioxide 25 mmol/L (22.0-30.0); Chloride 110 mmol/L (98-107); Creatinine Clearance Estimated 63 mL/min (50-200); Estimated Glomerular Filt Rate 43 ml/min (>60); GFR (African American) 52 ML/MIN (>60); Globulin 3.3 g/dL (1.3-3.2); Glucose 83 mg/dl (74-100); Potassium 4.6 mmoL/L (3.5-5.1); Sodium 140 mmol/L (136-145); Total Protein,Serum 6.6 g/dl (6.3-8.2)
[2020-12-22 08:00] VITALS: BP 142/72; PULSE 77; RESP 20; TEMP 37.4; O2SAT 93
[2020-12-22 09:27] LABS: Bilirubin,Total 0.1 mg/dl (0.2-1.3)
--- NOTE | 2020-12-22 09:40 | HMH.DCSUM ---
General - General Admission date:: 12/18/20 Discharge date: 12/22/20 HPI HPI: 70-year-old male presents to the ED today for upper chest tightness of the right shoulder chest pain. Patient states that this pain has been present for the last 24 approximate hours, states that he has a mild cough associated with this and had a fever earlier today. He also has grown Klebsiella in both skin and urine, given this we will start him on broad-spectrum antibiotic coverage with cefepime and azithromycin, unable to do chest CTA due to stage III CKD 12/18/20 CXR: FINDINGS: This is a somewhat poor inspiration. Minimal atelectasis remains in the right perihilar region and right base of the right upper lung field and left lung teran are clear. There is mild or borderline cardiomegaly however there is no pulmonary congestion and there is no definite pleural fluid. IMPRESSION: Poor inspiration, persistent minimal right basilar atelectasis though a minimal developing pneumonic infiltrate cannot be entirely excluded Dictated by: Dr. Dom Clay MD Hospital Course Hospital Course: Laboratory Tests 12/18/20 12/18/20 12/18/20 13:00 13:00 13:00 WBC 11.9 H RBC 3.20 L Hgb 9.5 L Hct 30.9 L MCV 96.5 H MCH 29.8 MCHC 30.9 L RDW 22.5 H Plt Count 214 D MPV 9.9 Neut % (Auto) 86.6 H Lymph % (Auto) 7.3 L [place] % (Auto) 4.5 Eos % (Auto) 1.2 Baso % (Auto) 0.3 Neut # (Auto) 10.3 H Lymph # (Auto) 0.9 [place] # (Auto) 0.5 Eos # (Auto) 0.2 Baso # (Auto) 0.0 Total Counted 100 Neutrophils % (Manual) 83 H Lymphocytes % (Manual) 7 L Monocytes % (Manual) 9 Eosinophils % (Manual) 1 Platelet Estimate Normal Hypochromasia 1+ Stomatocytes 1+ Sodium 143 Potassium 4.7 Chloride 111 H Carbon Dioxide 25 Anion Gap 11.7 BUN 28 H D Creatinine 2.00 H Estimated Creat Clear 51 Estimated GFR 33 L Est GFR ( Amer) 40 L Glucose 128 H Lactate 1.7 Calcium 8.4 Phosphorus Total Bilirubin 0.6 Direct Bilirubin 0.2 Conjugated Bilirubin 0.0 Indirect Bilirubin 0.4 Unconjugated Bilirubin 0.4 AST 42 D ALT 13 Alkaline Phosphatase 67 Troponin I < 0.01 Total Protein 5.9 L Albumin 3.1 L Globulin Albumin/Globulin Ratio Lipase 36 Procalcitonin SARS-CoV-2 (PCR) Influenza A Untype (PCR) Influenza Type B (PCR) 12/18/20 12/18/20 12/18/20 13:00 15:10 15:49 WBC RBC Hgb Hct MCV MCH MCHC RDW Plt Count MPV Neut % (Auto) Lymph % (Auto) [place] % (Auto) Eos % (Auto) Baso % (Auto) Neut # (Auto) Lymph # (Auto) [place] # (Auto) Eos # (Auto) Baso # (Auto) Total Counted Neutrophils % (Manual) Lymphocytes % (Manual) Monocytes % (Manual) Eosinophils % (Manual) Platelet Estimate Hypochromasia Stomatocytes Sodium Potassium Chloride Carbon Dioxide Anion Gap BUN Creatinine Estimated Creat Clear Estimated GFR Est GFR ( Amer) Glucose Lactate Calcium Phosphorus Total Bilirubin Direct Bilirubin Conjugated Bilirubin Indirect Bilirubin Unconjugated Bilirubin AST ALT Alkaline Phosphatase Troponin I < 0.01 Total Protein Albumin Globulin Albumin/Globulin Ratio Lipase Procalcitonin 5.21 H SARS-CoV-2 (PCR) Not detected Influenza A Untype (PCR) Not detected Influenza Type B (PCR) Not detected 12/18/20 12/19/20 12/19/20 16:40 06:57 06:57 WBC 8.3 D RBC 3.20 L Hgb 9.3 L Hct 30.7 L MCV 95.8 H MCH 29.0 MCHC 30.2 L RDW 22.6 H Plt Count 222 MPV 9.0 Neut % (Auto) 79.3 Lymph % (Auto) 10.8 [place] % (Auto) 6.0 Eos % (Auto) 3.7 Baso % (Auto) 0.2 Neut # (Auto) 6.5 Lymph # (Auto) 0.9
--- NOTE | 2020-12-22 11:20 | HMH.ACPN ---
Internal Medicine - PN: Subj *Date: 12/22/20 *Time: 11:20 Exam Vital signs and Labs for Last 24 Hours: Temp Pulse Resp BP Pulse Ox 99.3 F 77 20 142/72 H 93 L 12/22/20 08:00 12/22/20 08:00 12/22/20 08:00 12/22/20 08:00 12/22/20 08:00 Laboratory Results - last 24 hr 12/22/20 06:28: WBC 7.2, RBC 3.24 L, Hgb 9.1 L, Hct 29.8 L, MCV 92.0, MCH 28.2, MCHC 30.6 L, RDW 21.9 H, Plt Count 285, MPV 8.5, Neut % (Auto) 69.1, Lymph % (Auto) 18.8, [place] % (Auto) 7.4, Eos % (Auto) 4.0, Baso % (Auto) 0.7, Neut # (Auto) 5.0, Lymph # (Auto) 1.4, [place] # (Auto) 0.5, Eos # (Auto) 0.3, Baso # (Auto) 0.1 12/22/20 06:28: Sodium 140, Potassium 4.6, Chloride 110 H, Carbon Dioxide 25, Anion Gap 9.6, BUN 27 H, Creatinine 1.60 H, Estimated Creat Clear 63, Estimated GFR 43 L, Est GFR ( Amer) 52 L, Glucose 83, Calcium 8.7, Total Bilirubin 0.1 L, AST 24, ALT 17, Alkaline Phosphatase 74, Total Protein 6.6, Albumin 3.3 L, Globulin 3.3 H, Albumin/Globulin Ratio 1.0 L I & O for Last 24 hours: Intake & Output 12/19/20 12/20/20 12/21/20 12/22/20 23:59 23:59 23:59 23:59 Intake Total 720 / 720 960 / 960 1440 / 1882 922 / 922 Output Total 1300 / 1300 1475 / 1625 1100 / 1575 1125 / 1125 Balance -580 / -580 -515 / -665 340 / 307 -203 / -203 Weight 109 kg 109.939 kg 106.5 kg 105.914 kg Assessment and Plan (1) Urinary tract infection due to Klebsiella species Status: Acute Category: Medical Code(s): N39.0 - Urinary tract infection, site not specified; B96.89 - Other specified bacterial agents as the cause of diseases classified elsewhere (2) Chronic renal failure, stage 3 (moderate) Status: Acute Category: Medical Code(s): N18.30 - Chronic kidney disease, stage 3 unspecified (3) SIRS (systemic inflammatory response syndrome) Status: Acute Category: Medical Code(s): R65.10 - Systemic inflammatory response syndrome (SIRS) of non-infectious origin without acute organ dysfunction (4) Pneumonia Status: Acute Qualifiers: Qualified Code(s): J18.9 - Pneumonia, unspecified organism Category: Medical Code(s): J18.9 - Pneumonia, unspecified organism (5) Renal insufficiency Status: Acute Category: Medical Code(s): N28.9 - Disorder of kidney and ureter, unspecified (6) Overweight (BMI 25.0-29.9) Status: Chronic Category: Medical Code(s): E66.3 - Overweight (7) 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) Status: Acute Category: Medical Code(s): I63.9 - Cerebral infarction, unspecified; R47.1 - Dysarthria and anarthria (8) Pulmonary HTN Status: Acute Category: Medical Code(s): I27.20 - Pulmonary hypertension, unspecified (9) SOB (shortness of breath) Status: Resolved Category: Medical Code(s): R06.02 - Shortness of breath (10) CAD (coronary artery disease) Status: Chronic Qualifiers: Qualified Code(s): I25.118 - Atherosclerotic heart disease of [place] coronary artery with other forms of angina pectoris Category: Medical Code(s): I25.10 - Atherosclerotic heart disease of [place] coronary artery without angina pectoris (11) Chest pain in adult Status: Acute Category: Medical Code(s): R07.9 - Chest pain, unspecified (12) Anemia Status: Acute Qualifiers: Qualified Code(s): D64.9 - Anemia, unspecified Category: Medical Code(s): D64.9 - Anemia, unspecified The patient's infection will respond to the chosen ABx?: Yes Is the patient receiving the right drug, dose, and route?: Yes Could a more targeted ABx be ordered?: No (BLOOD CX (-)x2, WBC WNL)
[2020-12-22 11:49] VITALS: BP 135/75; PULSE 78; RESP 18; TEMP 37.2; O2SAT 95
--- NOTE | 2020-12-22 11:49 | PC.NURSE ---
Patient ready for discharge to care home today.
== END 2020-12-22 12:49 | DRG 194 ==
LOC: ER 15:25 → 2ND 15:47
PROVIDERS: Admitting Provider Family Medicine; Emergency Provider Student in an Organized Health Care Education/Training Program; PCP Emergency Medicine; Visit Provider Emergency Medicine
DX: J18.9 Pneumonia, unspecified organism (principal); C16.9 Malignant neoplasm of stomach, unspecified; I13.0 Hypertensive heart and chronic kidney disease with heart failure and stage 1 through stage 4 chronic kidney disease, or unspecified chronic kidney disease; N39.0 Urinary tract infection, site not specified; N18.30 Chronic kidney disease, stage 3 unspecified; I50.9 Heart failure, unspecified; I48.91 Unspecified atrial fibrillation; I25.10 Atherosclerotic heart disease of native coronary artery without angina pectoris; Z20.822 Contact with and (suspected) exposure to COVID-19; Z86.718 Personal history of other venous thrombosis and embolism; K21.9 Gastro-esophageal reflux disease without esophagitis; E78.5 Hyperlipidemia, unspecified; Z85.828 Personal history of other malignant neoplasm of skin; Z87.891 Personal history of nicotine dependence; B96.1 Klebsiella pneumoniae [K. pneumoniae] as the cause of diseases classified elsewhere; I69.322 Dysarthria following cerebral infarction; I27.20 Pulmonary hypertension, unspecified; D63.1 Anemia in chronic kidney disease
CPT/HCPCS: 36415; 71045; 76705; 80048; 80053; 80076; 81001; 82272; 83605; 83690; 84100; 84145; 84484; 85007; 85025; 87040; 87086; 87088; 87186; 93005; 93970; 94640; 96365; 96367; 99284; C9803; G0328; J0456; J2543; U0003; U0005

== ENCOUNTER → 2020-12-25 06:48 | Outpatient (CLI) | payer MEDICARE, MEDICAID, SELFPAY ==
--- NOTE | 2020-12-25 06:54 | NM_ITS ---
PROCEDURE: NM HEPATOBILIARY W PHARM CLINICAL INDICATION: ABNORMAL U/S COMPARISON: No exams were available for comparison TECHNIQUE: DOSE: 5.22 mCi technetium Choletec. Fatty meal with Ensure FINDINGS: Homogeneous activity is present within the hepatic parenchyma. Activity is present in the gallbladder by 15 minutes. Activity is present in the small bowel by 10 minutes. The gallbladder ejection fraction is calculated to be 71 percent. No pain or nausea reported with fatty meal. There was some reflux the radiopharmaceutical into the stomach. IMPRESSION: 1. No evidence of cystic or common bile duct obstruction 2. Normal EF of 71 percent 3. Reflux of bile into the stomach which could lead to duodenogastroesophageal reflux gastropathy. Correlation with clinical parameters needed. Dictated by: Edwar Mckay MD 12/26/2020 08:07 Edwar Mckay MD in [place] 12/26/2020 08:07
== END ==
PROVIDERS: PCP Emergency Medicine; Visit Provider Emergency Medicine
DX: R10.11 Right upper quadrant pain (principal); R93.89 Abnormal findings on diagnostic imaging of other specified body structures
CPT/HCPCS: 78227; A9537

== ENCOUNTER → 2021-01-15 13:17 | Outpatient (CLI) | payer MEDICARE, MEDICAID, SELFPAY ==
[2021-01-15 13:58] LABS: Basophils % 0.3 % (0.1-2.0); Eosinophils # 0.3 K/mm3 (0.0-0.4); Eosinophils % 4.9 % (0.1-12.0); Hematocrit 28.8 % (42.0-52.0); Hemoglobin 8.9 g/dL (14.1-18.0); Lymphocytes # 1.4 K/mm3 (0.7-4.5); Lymphocytes % 21.5 % (10-50); Mean Corpuscular HGB Conc 30.9 g/dL (31.8-35.4); Mean Corpuscular Hemoglobin 29.4 pg (27.0-31.2); Mean Platelet Volume 8.2 fl (7.4-10.4); Monocytes # 0.7 K/mm3 (0.1-1.0); Monocytes % 10.3 % (1.7-9.3); Neutrophils # 4.2 K/mm3 (1.8-7.8); Neutrophils % 62.9 % (37.0-80.0); Platelet Count 258 K/mm3 (142-424); Red Blood Count 3.03 M/mm3 (4.60-6.20); Red Cell Distribution Width 22.4 % (11.5-17.5); White Blood Count 6.6 K/mm3 (4.8-10.8)
[2021-01-15 14:32] LABS: Alanine Aminotransferase 12 U/L (12-78); Albumin Level 3.6 g/dl (3.5-5.0); Albumin/Globulin Ratio 1.3 (1.1-1.8); Alkaline Phosphatase 53 U/L (38-126); Aspartate Amino Transferase 20 U/L (17-59); Bilirubin,Total 0.2 mg/dl (0.2-1.3); Blood Urea Nitrogen 21 mg/dl (9-20); Calcium 8.8 mg/dl (8.4-10.2); Carbon Dioxide 26 mmol/L (22.0-30.0); Chloride 106 mmol/L (98-107); Estimated Glomerular Filt Rate 37 ml/min (>60); GFR (African American) 45 ML/MIN (>60); Globulin 2.7 g/dL (1.3-3.2); Glucose 110 mg/dl (74-100); Sodium 142 mmol/L (136-145); Total Protein,Serum 6.3 g/dl (6.3-8.2)
== END ==
PROVIDERS: Visit Provider Internal Medicine Medical Oncology
DX: C18.9 Malignant neoplasm of colon, unspecified (principal)
CPT/HCPCS: 36415; 80053; 85025

== ENCOUNTER → 2021-02-02 11:19 | Outpatient (CLI) | payer MEDICARE, MEDICAID, SELFPAY ==
[2021-02-02 13:29] LABS: Iron 53 ug/dL (49-181)
[2021-02-02 13:43] LABS: Total Iron Binding Capacity 382 ug/dL (261-462)
[2021-02-03 16:17] LABS: Erythropoietin 58.4 mIU/mL (2.6-18.5)
== END ==
PROVIDERS: Visit Provider Internal Medicine Medical Oncology
DX: C18.9 Malignant neoplasm of colon, unspecified (principal)
CPT/HCPCS: 36415; 82668; 82728; 83540; 83550

== ENCOUNTER → 2021-02-05 09:13 | Outpatient (CLI) | payer MEDICARE, MEDICAID, SELFPAY ==
[2021-02-05] VITALS (21 sets, daily range): BP systolic 115–143; BP diastolic 66–85; PULSE 63–88; RESP 16–28; TEMP 36.6–37.2; O2SAT 94–97; BMI 20.3
[2021-02-05 19:37] LABS: Hematocrit 30.2 % (42.0-52.0); Hemoglobin 10.2 g/dL (14.1-18.0)
== END ==
PROVIDERS: PCP Emergency Medicine; Visit Provider Nurse Practitioner Family
DX: D64.9 Anemia, unspecified (principal)
CPT/HCPCS: 36415; 36430; 85014; 85018; 86850; P9016

== ENCOUNTER 2021-02-27 14:24 | Emergency (ER) | payer MEDICARE, MEDICAID, SELFPAY ==
--- NOTE | 2021-02-27 14:02 | ECG_ITS ---
APPROVED REPORT Exam: Resting ECG HR:68 bpm ECG Measurements Heart Rate 68 AXES MO 188 P 38 QRSd 104 QRS -28 QT 428 T 20 QTc 455 Conclusion Normal sinus rhythm Normal ECG Electronically signed by : Syed Modi MD 02/28/2021 06:13:28
[2021-02-27 14:03] VITALS: BP 133/73; PULSE 68; RESP 20; TEMP 36.7; O2SAT 95; BMI 28.9
--- NOTE | 2021-02-27 14:11 | XR_ITS ---
PROCEDURE: XR CHEST PORTABLE CLINICAL HISTORY: CP, SOA COMPARISON: CR XR CHEST PORTABLE from 12/18/2020 CR XR CHEST PORTABLE from 12/19/2020 CR XR CHEST PORTABLE from 12/22/2020 FINDINGS: There is cardiomegaly with mild pulmonary venous congestion consistent with mild CHF. There are low lung volumes with increased density in the lung bases which may be related to atelectasis or infiltrate along with vascular crowding from the poor inspiration. No acute bony findings. IMPRESSION: Mild CHF with patchy density in the lung bases and elevated hemidiaphragms suggesting atelectasis or infiltrate Dictated by: Edwar Mckay MD 02/27/2021 14:33 Edwar Mckay MD in [place] 02/27/2021 14:33
[2021-02-27 14:45] LABS: Chloride 107 mmol/L (98-107); Potassium 4.2 mmoL/L (3.5-5.1); Sodium 142 mmol/L (136-145)
[2021-02-27 14:46] LABS: Basophils # 0.1 K/mm3 (0-0.2); Eosinophils # 0.2 K/mm3 (0.0-0.4); Eosinophils % 1.8 % (0.1-12.0); Hematocrit 28.5 % (42.0-52.0); Hemoglobin 9.5 g/dL (14.1-18.0); Lymphocytes # 1.1 K/mm3 (0.7-4.5); Mean Corpuscular HGB Conc 33.4 g/dL (31.8-35.4); Mean Corpuscular Hemoglobin 31.5 pg (27.0-31.2); Mean Corpuscular Volume 94.1 fl (80-94); Mean Platelet Volume 8.2 fl (7.4-10.4); Monocytes # 0.6 K/mm3 (0.1-1.0); Neutrophils # 8.2 K/mm3 (1.8-7.8); Neutrophils % 80.2 % (37.0-80.0); Platelet Count 301 K/mm3 (142-424); Red Blood Count 3.03 M/mm3 (4.60-6.20); Red Cell Distribution Width 21.4 % (11.5-17.5); White Blood Count 10.2 K/mm3 (4.8-10.8)
[2021-02-27 14:48] LABS: Anion Gap 14.2 mEq/L (5-15); Blood Urea Nitrogen 38 mg/dl (9-20); Carbon Dioxide 25 mmol/L (22.0-30.0); Creatinine Clearance Estimated 40 mL/min (50-200); Estimated Glomerular Filt Rate 24 ml/min (>60); GFR (African American) 30 ML/MIN (>60)
[2021-02-27 14:49] LABS: Glucose 121 mg/dl (74-100)
[2021-02-27 15:03] LABS: Troponin I < 0.01 ng/ml (0.00-0.034)
[2021-02-27 15:05] VITALS: BP 141/75; PULSE 66; RESP 24; O2SAT 94
[2021-02-27 16:00] LABS: D-Dimer 1.02 ug/mL (0.0-0.5)
[2021-02-27 17:32] LABS: Adenovirus,PCR Not Detected (NotDetected); Bordetella Pertussis Not Detected (NotDetected); Chlamydophila Pneumoniae, PCR Not Detected (NotDetected); Coronavirus 19, PCR Not Detected (NotDetected); Coronavirus 229E Not Detected (NotDetected); Coronavirus NL63 Not Detected (NotDetected); Coronavirus OC43 Not Detected (NotDetected); Coronovirus HKU1,PCR Not Detected (NotDetected); Human Metapneumovirus Not Detected (NotDetected); Influenza A, PCR Not Detected (NotDetected); Influenza AH1, 2009 Not Detected (NotDetected); Influenza AH1, PCR Not Detected (NotDetected); Influenza AH3,PCR Not Detected (NotDetected); Influenza B, PCR Not Detected (NotDetected); Mycoplasma Pneumoniae, PCR Not Detected (NotDetected); Parainfluenza 1, PCR Not Detected (NotDetected); Parainfluenza 2, PCR Not Detected (NotDetected); Parainfluenza 3, PCR Not Detected (NotDetected); Parainfluenza 4, PCR Not Detected (NotDetected); Respiratory Syncytial Virus Not Detected (NotDetected); Rhinovirus/Enterovirus Not Detected (NotDetected)
[2021-02-27 17:46] LABS: Troponin I < 0.01 ng/ml (0.00-0.034)
[2021-02-27 21:09] LABS: Troponin I < 0.01 ng/ml (0.00-0.034)
--- NOTE | 2021-02-27 21:32 | HMH.EDGENADL ---
ED Disposition Clinical Impression: ELMER (acute kidney injury), Shortness of breath Disposition: [facility] Condition on Discharge: Fair Additional Instructions: Please follow up with your family doctor to recheck your labwork on Tuesday. If your symptoms worsen or any other concerns arise, please return to the emergency department promptly for reevaluation. Referrals: Shaquille Bowden MD [Primary Care Provider] - - Critical Care Critical Care Time: No Attestation: On 02/27/21, the high probability of a clinically significant, sudden or life threatening deterioration of the following system(s) required my full and direct attention, intervention and personal management. The time I documented below is in addition to time spent performing reported procedures but includes the following listed in this critical care notation. Medical Decision Making - Medical Records Medical records reviewed: Yes: I reviewed the patient's medical records. - [place] Inquiry Pt receiving controlled substance: No Vital Signs: 02/27/21 14:03 02/27/21 15:05 Temperature 98.0 F Temperature Source Oral Pulse Rate 66 Pulse Rate [Right Radial] 68 Respiratory Rate 20 24 Blood Pressure 141/75 H Blood Pressure [Right Arm] 133/73 Blood Pressure Mean [Right Arm] 93 Blood Pressure Source [Right Arm] Automatic Cuff Blood Pressure Position [Right Arm] Sitting 02 Sat by Pulse Oximetry 95 94 L Oxygen Delivery Method Room Air - Lab Data Lab results reviewed: Yes: I reviewed the patient's lab results. Lab Results 02/27/21 14:30: WBC 10.2, RBC 3.03 L, Hgb 9.5 L, Hct 28.5 L, MCV 94.1 H, MCH 31.5 H, MCHC 33.4, RDW 21.4 H, Plt Count 301, MPV 8.2, Neut % (Auto) 80.2 H, Lymph % (Auto) 11.0, [place] % (Auto) 6.0, Eos % (Auto) 1.8, Baso % (Auto) 1.0, Neut # (Auto) 8.2 H, Lymph # (Auto) 1.1, [place] # (Auto) 0.6, Eos # (Auto) 0.2, Baso # (Auto) 0.1 02/27/21 14:30: Sodium 142, Potassium 4.2, Chloride 107, Carbon Dioxide 25, Anion Gap 14.2, BUN 38 H, Creatinine 2.60 H, Estimated Creat Clear 40, Estimated GFR 24 L, Est GFR ( Amer) 30 L, Glucose 121 H, Calcium 9.0, Troponin I < 0.01 02/27/21 14:30: D-Dimer 1.02 H 02/27/21 17:05: Troponin I < 0.01 02/27/21 17:20: Chlamy pneumoniae PCR Not detected, Adenovirus (PCR) Not detected, B. pertussis DNA (PCR) Not detected, Coronavirus OC43 (PCR) Not detected, Coronavirus HKU1 (PCR) Not detected, Coronavirus 229E (PCR) Not detected, SARS-CoV-2 (PCR) Not detected, Coronavirus NL63 (PCR) Not detected, Human Metapneumovir PCR Not detected, Influenza A (H1) PCR Not detected, Influ A (H1N1/09) PCR Not detected, Influenza A (H3) PCR Not detected, Influenza Type A (PCR) Not detected, Influenza Type B (PCR) Not detected, M. pneumoniae (PCR) Not detected, Parainfluenza 1 (PCR) Not detected, Parainfluenza 2 (PCR) Not detected, Parainfluenza 3 (PCR) Not detected, Parainfluenza 4 (PCR) Not detected, RSV (PCR) Not detected, Entero/Rhino (PCR) Not detected 02/27/21 20:30: Troponin I < 0.01 Result diagrams: 02/27/21 14:30 02/27/21 14:30 Orders (Tests/Meds): ED MEDICATIONS Generic Name Dose Route Start Last Admin Trade Name Freq PRN Reason Stop Dose Admin Lactated Ringer's 500 mls @ 999 mls/hr 02/27/21 18:15 02/27/21 18:40 Lactated Ringer's 1000 Ml Bag IV 02/27/21 18:45 999 mls/hr .Q31M [place] Administration Discontinued Medications Generic Name Dose Route Start Last Admin Trade Name Freq PRN Reason Stop Dose Admin Lactated Ringer's 2,670 mls @ 1,335 mls/hr 02/27/21 18:50 02/27/21 20:44 Lactated Ringer's 1000 Ml Bag 30 ml/kg infuse over 2 hr (2670 ml) 02/27/21 20:49 1,335 mls/hr IV Administration .Q2H ONE ORDERS Category Date Time Status CTA Chest [CT angio chest PE protocol] Stat Cat Scan 02/27/21 18:08 Ordered - Radiology Data #1 CXR: FINDINGS: There is cardiomegaly with mild pulmonary venous congestion consistent with mild CHF. There are low lung volumes
[2021-02-27 22:09] VITALS: BP 157/84; PULSE 65; RESP 18; TEMP 37.2; O2SAT 93
== END 2021-02-27 22:25 ==
PROVIDERS: Emergency Provider Emergency Medicine; PCP Emergency Medicine
DX: N17.9 Acute kidney failure, unspecified (principal); I48.0 Paroxysmal atrial fibrillation; Z79.01 Long term (current) use of anticoagulants; I50.9 Heart failure, unspecified; I25.10 Atherosclerotic heart disease of native coronary artery without angina pectoris; Z86.73 Personal history of transient ischemic attack (TIA), and cerebral infarction without residual deficits; I10 Essential (primary) hypertension; E78.5 Hyperlipidemia, unspecified; K21.9 Gastro-esophageal reflux disease without esophagitis; Z87.891 Personal history of nicotine dependence
CPT/HCPCS: 36415; 71045; 80048; 84484; 85025; 85378; 87581; 87632; 87798; 93005; 96365; 96366; 96375; 99283; C9803; U0003; U0005

== ENCOUNTER 2021-03-19 15:09 | Emergency (ER) | payer MEDICARE, MEDICAID, SELFPAY ==
--- NOTE | 2021-03-19 15:22 | ECG_ITS ---
APPROVED REPORT Exam: Resting ECG HR:64 bpm ECG Measurements Heart Rate 64 AXES PA 198 P 38 QRSd 106 QRS -35 QT 422 T 28 QTc 435 Conclusion Normal sinus rhythm Left axis deviation Abnormal ECG Electronically signed by : Syed Modi MD 03/20/2021 14:26:04
[2021-03-19 15:23] VITALS: BMI 26.7
--- NOTE | 2021-03-19 15:24 | XR_ITS ---
FINAL REPORT CLINICAL HISTORY: soa FINDINGS: A single view of the chest was obtained. There is mild to moderate cardiomegaly. The mediastinum is unremarkable. Are underinflated. There is atelectasis at the lung bases, right greater than left. There is no pleural effusion. There is no pneumothorax. There is no acute osseous abnormality. IMPRESSION: Atelectasis at the lung bases, right greater than left. Reviewed, Interpreted and Dictated by Primitivo Rodriguez MD Transcribed by Zamzam Gonzlaez Authenticated by Primitivo Rodriguez MD on 03/19/2021 04:02:39 PM [facility]
[2021-03-19 15:31] VITALS: BP 142/80; PULSE 65; RESP 22; TEMP 37.1; O2SAT 97; BMI 26.7
[2021-03-19 15:49] LABS: Coronavirus 19, PCR Not Detected (NotDetected); Influenza A, PCR Not Detected (NotDetected); Influenza B, PCR Not Detected (NotDetected)
--- NOTE | 2021-03-19 15:54 | HMH.EDGENADL ---
ED Disposition Clinical Impression: Shortness of breath Congestive heart failure Qualifiers: Heart failure type: unspecified Heart failure chronicity: chronic Qualified Code(s): I50.9 - Heart failure, unspecified Anemia Qualifiers: Anemia type: iron deficiency Iron deficiency anemia type: other iron deficiency Qualified Code(s): D50.8 - Other iron deficiency anemias Disposition: Home, Self-Care Condition on Discharge: Good Instructions: DI for Shortness of Breath Referrals: Shaqulile Bowden MD [Primary Care Provider] - - Critical Care Critical Care Time: No Attestation: On 03/19/21, the high probability of a clinically significant, sudden or life threatening deterioration of the following system(s) required my full and direct attention, intervention and personal management. The time I documented below is in addition to time spent performing reported procedures but includes the following listed in this critical care notation. Medical Decision Making - Medical Records Medical records reviewed: Yes: I reviewed the patient's medical records. - River Inquiry Pt receiving controlled substance: No Vital Signs: 03/19/21 15:31 03/19/21 16:00 03/19/21 16:31 Temperature 98.7 F Temperature Source Oral Pulse Rate 62 63 Pulse Rate [Left Radial] 65 Respiratory Rate 22 19 21 Blood Pressure 149/84 H 148/82 H Blood Pressure [Right Arm] 142/80 H Blood Pressure Mean 105 104 Blood Pressure Mean [Right Arm] 100 02 Sat by Pulse Oximetry 97 97 97 Oxygen Delivery Method Room Air - Lab Data Lab Results 03/19/21 15:23: WBC 7.3, RBC 2.84 L, Hgb 8.9 L, Hct 29.0 L, MCV 102.3 H, MCH 31.2, MCHC 30.5 L, RDW 22.5 H, Plt Count 268, MPV 7.8, Neut % (Auto) 68.8, Lymph % (Auto) 15.8, [place] % (Auto) 8.7, Eos % (Auto) 4.9, Baso % (Auto) 1.9, Neut # (Auto) 5.0, Lymph # (Auto) 1.2, [place] # (Auto) 0.6, Eos # (Auto) 0.4, Baso # (Auto) 0.1 03/19/21 15:23: Sodium 140, Potassium 4.4, Chloride 105, Carbon Dioxide 23, Anion Gap 16.4 H, BUN 33 H, Creatinine 2.60 H, Estimated Creat Clear 36, Estimated GFR 24 L, Est GFR ( Amer) 30 L, Glucose 109 H, Calcium 9.3, Troponin I < 0.01 03/19/21 15:23: NT-Pro-B Natriuret Pep 931 H 03/19/21 15:25: SARS-CoV-2 (PCR) Not detected, Influenza A Untype (PCR) Not detected, Influenza Type B (PCR) Not detected Result diagrams: 03/19/21 15:23 03/19/21 15:23 Orders (Tests/Meds): ORDERS Category Date Time Status Troponin I Q3H Lab 03/19/21 18:30 Ordered Troponin I Q3H Lab 03/19/21 21:30 Ordered - Radiology Data #1 Image(s): Chest Image Reviewed: Yes I reviewed the patient's radiology results, Yes I reviewed the patient's radiology image, Yes I have reviewed radiologist's interpretation IMPRESSION: Atelectasis at the lung bases, right greater than left. - ECG Data Tracing #1 I reviewed this ECG and interpreted as documented below: Normal ventricular rate of 64 bpm, normal OR interval, normal QTC. Sinus rhythm with nonspecific changes. ECG initial impression date: 03/19/21 ECG initial impression time: :22 - Reevaluation(s) Time: 17:08 Reevaluation #1: On reevaluation, patient is feeling better. Hemoglobin is at his baseline stable. He is not having any respiratory distress. No desaturations. Not requiring supplemental oxygen. Patient to follow-up with PCP. Given strict return precautions. Verbalized understanding. Medical Decision Narrative: 70-year-old male presenting with some shortness of breath. The patient has a chronic history of dyspnea on exertion. Has multiple medical comorbidities. Findings are most consistent with CHF exacerbation, however he is maintaining his oxygen saturations on room air. Work-up initiated. General Adult HPI - General Chief complaint: Shortness of Breath/Dyspnea Stated complaint: weight gain,SOB Time Seen by Provider: 03/19/21 15:40 Mode of Arrival: Wheelchair Limitations: No Limitations Description of Sy
[2021-03-19 15:55] LABS: Basophils # 0.1 K/mm3 (0-0.2); Basophils % 1.9 % (0.1-2.0); Eosinophils # 0.4 K/mm3 (0.0-0.4); Eosinophils % 4.9 % (0.1-12.0); Hemoglobin 8.9 g/dL (14.1-18.0); Lymphocytes # 1.2 K/mm3 (0.7-4.5); Lymphocytes % 15.8 % (10-50); Mean Corpuscular HGB Conc 30.5 g/dL (31.8-35.4); Mean Corpuscular Hemoglobin 31.2 pg (27.0-31.2); Mean Corpuscular Volume 102.3 fl (80-94); Mean Platelet Volume 7.8 fl (7.4-10.4); Monocytes # 0.6 K/mm3 (0.1-1.0); Monocytes % 8.7 % (1.7-9.3); Neutrophils % 68.8 % (37.0-80.0); Platelet Count 268 K/mm3 (142-424); Red Blood Count 2.84 M/mm3 (4.60-6.20); Red Cell Distribution Width 22.5 % (11.5-17.5); White Blood Count 7.3 K/mm3 (4.8-10.8)
[2021-03-19 15:58] LABS: Anion Gap 16.4 mEq/L (5-15); Blood Urea Nitrogen 33 mg/dl (9-20); Calcium 9.3 mg/dl (8.4-10.2); Carbon Dioxide 23 mmol/L (22.0-30.0); Chloride 105 mmol/L (98-107); Creatinine Clearance Estimated 36 mL/min (50-200); Estimated Glomerular Filt Rate 24 ml/min (>60); GFR (African American) 30 ML/MIN (>60); Glucose 109 mg/dl (74-100); Potassium 4.4 mmoL/L (3.5-5.1); Sodium 140 mmol/L (136-145)
[2021-03-19 16:00] VITALS: BP 149/84; PULSE 62; RESP 19; O2SAT 97
[2021-03-19 16:07] LABS: NT Pro Brain Natriuretic Pep. 931 pg/mL (0-125)
[2021-03-19 16:16] LABS: Troponin I < 0.01 ng/ml (0.00-0.034)
[2021-03-19 16:31] VITALS: BP 148/82; PULSE 63; RESP 21; O2SAT 97
[2021-03-19 17:01] VITALS: BP 144/83; PULSE 65; RESP 20; O2SAT 96
[2021-03-19 18:06] VITALS: BP 137/84; PULSE 62; RESP 18; TEMP 37.1; O2SAT 99
== END 2021-03-19 18:07 | disposition home or self-care (01) ==
PROVIDERS: Emergency Provider Emergency Medicine; PCP Emergency Medicine
DX: J98.11 Atelectasis (principal); Z87.891 Personal history of nicotine dependence; E78.5 Hyperlipidemia, unspecified; I25.10 Atherosclerotic heart disease of native coronary artery without angina pectoris; K21.9 Gastro-esophageal reflux disease without esophagitis; D50.8 Other iron deficiency anemias; Z79.899 Other long term (current) drug therapy; Z20.822 Contact with and (suspected) exposure to COVID-19
CPT/HCPCS: 71045; 80048; 83880; 84484; 85025; 93005; 99284; C9803; U0003; U0005

== ENCOUNTER → 2021-05-05 07:53 | Outpatient (CLI) | payer MEDICARE, MEDICAID, SELFPAY ==
--- NOTE | 2021-05-05 08:12 | CT_ITS ---
FINAL REPORT TECHNIQUE: Axial images were obtained through the chest without contrast. This study was performed with techniques to keep radiation doses as low as reasonably achievable (ALARA). Individualized dose reduction techniques using automated exposure control or adjustment of mA and/or kV according to the patient's size were employed. CLINICAL HISTORY: COLON CA FINDINGS: There is no significant mediastinal mass or adenopathy. There is calcification along the left superior mediastinum. There is dense coronary artery calcification. The heart size is normal. There is no pericardial or pleural effusion. There is a rounded density in the posterior left apex measuring 2.0 cm in diameter. There may be a few lucencies or air bronchograms in this opacity. Finding is well-seen on image 25 of series 4. IMPRESSION: Opacity in the posterior left upper lobe of the lung of uncertain significance, could be inflammatory or neoplastic. Consider PET scan for further characterization. Alternatively, three-month follow up CT could be obtained. Reviewed, Interpreted and Dictated by Primitivo Rodriguez MD Transcribed by Nati Funez Authenticated by Primitivo Rodriguez MD on 05/05/2021 10:14:25 AM [facility]
--- NOTE | 2021-05-05 08:12 | CT_ITS ---
FINAL REPORT CLINICAL HISTORY: COLON CA COMPARISON: 12/09/2020 FINDINGS: Technique: Axial images through the abdomen and pelvis were performed by computed tomography. This study was performed with techniques to keep radiation doses as low as reasonably achievable (ALARA). Individualized dose reduction techniques using automated exposure control or adjustment of mA and/or kV according to the patient's size were employed. Abdomen: There is dependent edema and chronic changes in lung bases. There are small low-attenuation foci in the liver which are similar in size to the previous, probably due to benign cysts. These measure up to 1.3 cm in greatest dimension. The gallbladder is present. There is a small sliding-type hiatal hernia. The spleen is unremarkable. The pancreas is normal. The adrenals are normal. The aorta is normal in caliber. There are a multitude of bilateral renal cysts present. Individual cysts measure up to 5.7 cm in greatest dimension. There are multitude of bilateral nonobstructing kidney stones measuring up to 1.5 cm. Pelvis: The appendix is not identified. The urinary bladder is distended. Bladder measures up to 18 cm in craniocaudal dimension. The prostate gland is enlarged measuring 6.5 cm in diameter. This has a lobular superior margin. There is no free fluid or adenopathy. IMPRESSION: Small low-attenuation foci in the liver which are nonspecific, favor to represent benign cysts. Multitude of large bilateral renal cysts and nonobstructing kidney stones. Distended urinary bladder with associated enlarged prostate, cannot exclude some element of bladder outlet obstruction. Reviewed, Interpreted and Dictated by Primitivo Rodriguez MD Transcribed by Nati Funez Authenticated by Primitivo Rodriguez MD on 05/05/2021 10:14:35 AM [facility]
[2021-05-05 16:29] LABS: Hematocrit 29.8 % (42.0-52.0); Hemoglobin 8.9 g/dL (14.1-18.0)
== END ==
PROVIDERS: PCP Emergency Medicine; Visit Provider Internal Medicine Medical Oncology
DX: C18.9 Malignant neoplasm of colon, unspecified (principal); D64.9 Anemia, unspecified
CPT/HCPCS: 71250; 74176; 85014; 85018

== ENCOUNTER → 2021-06-03 16:10 | Outpatient (CLI) | payer MEDICARE, MEDICAID, SELFPAY ==
[2021-06-03 22:11] LABS: Adenovirus F 40/41, stool Not Detected (NotDetected); Astrovirus Not Detected (NotDetected); Campylobacter Not Detected (NotDetected); Clostridium Difficile A/B, PCR Not Detected (NotDetected); Cryptosporidium Not Detected (NotDetected); Cyclospora Cayetanesis Not Detected (NotDetected); Entamoeba histolytica Not Detected (NotDetected); Enteroaggregative E coli Not Detected (NotDetected); Enteropathogenic E coli Not Detected (NotDetected); Enterotoxigenic E coli Not Detected (NotDetected); Giardia lamblia Not Detected (NotDetected); Norovirus Not Detected (NotDetected); Plesimonas Shigalloides, PCR Not Detected (NotDetected); Rotavirus A Not Detected (NotDetected); Salmonella, PCR Not Detected (NotDetected); Sapovirus Not Detected (NotDetected); Shiga-like toxin E coli Not Detected (NotDetected); Shigella Enterovasive E coli Not Detected (NotDetected); Vibrio Cholerae Not Detected (NotDetected); Vibrio, PCR Not Detected (NotDetected); Yersinia Entercolitica, PCR Not Detected (NotDetected)
== END ==
PROVIDERS: Visit Provider Emergency Medicine
DX: R10.9 Unspecified abdominal pain (principal); R11.2 Nausea with vomiting, unspecified; R19.7 Diarrhea, unspecified
CPT/HCPCS: 87507

== ENCOUNTER 2021-06-04 08:34 | Emergency (ER) | payer MEDICARE, MEDICAID, SELFPAY ==
[2021-06-04 08:34] VITALS: BP 109/57; PULSE 98; RESP 20; TEMP 36.9; O2SAT 98; BMI 30.4
--- NOTE | 2021-06-04 08:42 | PC.NURSE ---
ED MD at
--- NOTE | 2021-06-04 08:45 | PC.NURSE ---
Iron at BS with ED
--- NOTE | 2021-06-04 08:51 | XR_ITS ---
FINAL REPORT CLINICAL HISTORY: SOA COMPARISON: March 19, 2021 FINDINGS: SINGLE VIEW CHEST. The heart is normal in size. The mediastinum is unremarkable. The lungs are underinflated. There is atelectasis at the right lung base. The left lung is clear. There is no pneumothorax. IMPRESSION: Atelectasis at the right lung base. Left lung is clear. Reviewed, Interpreted and Dictated by Primitivo Rodriguez MD Transcribed by Joselin Avalos Authenticated by Primitivo Rodriguez MD on 06/04/2021 10:04:50 AM [facility]
--- NOTE | 2021-06-04 08:54 | HMH.EDGENADL ---
ED Disposition Clinical Impression: Colitis, Gastroenteritis Disposition: Home, Self-Care Condition on Discharge: Good Instructions: DI for Diarrhea and Traveler's Diarrhea -- Adult, DI for Acute Abdominal Pain, DI for Diarrhea and Traveler's Diarrhea -- Child, DI for Nausea -- Adult, DI for Nausea -- Child Additional Instructions: Take antibiotics as directed. Okay to take Tylenol, Motrin as needed for pain. Take Zofran as directed for nausea and vomiting. Drink plenty fluids, stay hydrated. Follow-up with your PCP within the next week, return with new, concerning, worsening symptoms. Prescriptions: Amoxicillin/Potassium Clav [Augmentin Xr 1,000-62.5 Tab] 1 tab PO Q12H 7 Days #14 tab Transmission Status: Pending to [facility] #[id number] Ondansetron [Zofran 4mg ODT] 4 mg SL TIDP PRN 3 Days #12 tab PRN Reason: Nausea And Vomiting Transmission Status: Received by [facility] Referrals: Shaquille Bowden MD [Primary Care Provider] - - Critical Care Critical Care Time: No Attestation: On , the high probability of a clinically significant, sudden or life threatening deterioration of the following system(s) required my full and direct attention, intervention and personal management. The time I documented below is in addition to time spent performing reported procedures but includes the following listed in this critical care notation. Medical Decision Making - Medical Records Medical records reviewed: Yes: I reviewed the patient's medical records. - River Inquiry Pt receiving controlled substance: No Vital Signs: 06/04/21 08:34 06/04/21 10:00 06/04/21 10:30 Temperature 98.5 F Temperature Source Oral Pulse Rate 78 78 Pulse Rate [Radial] 98 H Respiratory Rate 20 Blood Pressure 147/79 H 138/73 Blood Pressure [Right Arm] 109/57 L Blood Pressure Mean [Right Arm] 74 Blood Pressure Position [Right Arm] Sitting 02 Sat by Pulse Oximetry 98 95 91 L Oxygen Delivery Method Room Air - Lab Data Lab Results 06/04/21 08:57: WBC 9.3, RBC 3.46 L, Hgb 9.9 L, Hct 33.0 L, MCV 95.3 H, MCH 28.6, MCHC 30.0 L, RDW 18.6 H, Plt Count 313, MPV 8.7, Neut % (Auto) 82.9 H, Lymph % (Auto) 9.9 L, [place] % (Auto) 5.0, Eos % (Auto) 1.9, Baso % (Auto) 0.3, Neut # (Auto) 7.7, Lymph # (Auto) 0.9, [place] # (Auto) 0.5, Eos # (Auto) 0.2, Baso # (Auto) 0.0 06/04/21 08:57: Sodium 143, Potassium 4.1, Chloride 110 H, Carbon Dioxide 26, Anion Gap 11.1, BUN 25 H, Creatinine 2.00 H, Estimated Creat Clear 54, Estimated GFR 33 L, Est GFR ( Amer) 40 L, Glucose 121 H, Calcium 8.7, Total Bilirubin 0.4, AST 21, ALT 15, Alkaline Phosphatase 58, Total Protein 6.9, Albumin 3.9, Globulin 3.0, Albumin/Globulin Ratio 1.3 06/04/21 08:57: Lactate 1.3 06/04/21 08:57: Lipase 33 06/04/21 08:57: NT-Pro-B Natriuret Pep 614 H Result diagrams: 06/04/21 08:57 06/04/21 08:57 Orders (Tests/Meds): ED MEDICATIONS Discontinued Medications Generic Name Dose Route Start Last Admin Trade Name Edwardq PRN Reason Stop Dose Admin Acetaminophen 1,000 mg 06/04/21 08:51 06/04/21 09:00 Acetaminophen 500mg Tab PO 06/04/21 08:52 1,000 mg ONCE ONE Administration Lactated Ringer's 1,000 mls @ 999 mls/hr 06/04/21 09:00 06/04/21 09:00 Lactated Ringer's 1000 Ml Bag IV 06/04/21 10:00 999 mls/hr .Q1H1M [place] Administration Ondansetron HCl 4 mg 06/04/21 08:46 06/04/21 09:00 Ondansetron 4mg/2ml Vial IV 06/04/21 08:47 4 mg ONCE ONE Administration ORDERS Category Date Time Status UA [Urinalysis and Microscopic] Stat Lab 06/04/21 08:52 Ordered Urine Culture Stat Micro 06/04/21 08:52 Ordered - Radiology Data #1 Image(s): Chest Image Reviewed: Yes I reviewed the patient's radiology results, Yes I reviewed the patient's radiology image NDINGS: SINGLE VIEW CHEST. The heart is normal in size. The mediastinum is unremarkable. The lungs are underinflated. There is atelectasis at the ri
[2021-06-04 09:17] LABS: Basophils % 0.3 % (0.1-2.0); Eosinophils # 0.2 K/mm3 (0.0-0.4); Eosinophils % 1.9 % (0.1-12.0); Hemoglobin 9.9 g/dL (14.1-18.0); Lymphocytes # 0.9 K/mm3 (0.7-4.5); Lymphocytes % 9.9 % (10-50); Mean Corpuscular Hemoglobin 28.6 pg (27.0-31.2); Mean Corpuscular Volume 95.3 fl (80-94); Mean Platelet Volume 8.7 fl (7.4-10.4); Monocytes # 0.5 K/mm3 (0.1-1.0); Neutrophils # 7.7 K/mm3 (1.8-7.8); Neutrophils % 82.9 % (37.0-80.0); Platelet Count 313 K/mm3 (142-424); Red Blood Count 3.46 M/mm3 (4.60-6.20); Red Cell Distribution Width 18.6 % (11.5-17.5); White Blood Count 9.3 K/mm3 (4.8-10.8)
[2021-06-04 09:24] LABS: Lipase 33 U/L (23-300)
[2021-06-04 09:25] LABS: Alanine Aminotransferase 15 U/L (12-78); Albumin Level 3.9 g/dl (3.5-5.0); Albumin/Globulin Ratio 1.3 (1.1-1.8); Alkaline Phosphatase 58 U/L (38-126); Anion Gap 11.1 mEq/L (5-15); Aspartate Amino Transferase 21 U/L (17-59); Bilirubin,Total 0.4 mg/dl (0.2-1.3); Blood Urea Nitrogen 25 mg/dl (9-20); Calcium 8.7 mg/dl (8.4-10.2); Carbon Dioxide 26 mmol/L (22.0-30.0); Chloride 110 mmol/L (98-107); Creatinine Clearance Estimated 54 mL/min (50-200); Estimated Glomerular Filt Rate 33 ml/min (>60); GFR (African American) 40 ML/MIN (>60); Glucose 121 mg/dl (74-100); Lactic Acid 1.3 mmol/L (0.7-2.1); Potassium 4.1 mmoL/L (3.5-5.1); Sodium 143 mmol/L (136-145); Total Protein,Serum 6.9 g/dl (6.3-8.2)
[2021-06-04 09:33] LABS: NT Pro Brain Natriuretic Pep. 614 pg/mL (0-125)
--- NOTE | 2021-06-04 09:35 | CT_ITS ---
FINAL REPORT TECHNIQUE: Axial images through the abdomen and pelvis were performed without contrast. Coronal reformatted images were submitted. This study was performed with techniques to keep radiation doses as low as reasonably achievable, (ALARA). Individualized dose reduction techniques using automated exposure control or adjustment of mA and/or kV according to the patient's size were employed. CLINICAL HISTORY: diffuse abdominal pain with diarrhea/vomiting, h/o colon ca FINDINGS: Abdomen: There is chronic scarring in the lung bases. There are multitude of low-attenuation structures within the liver. Most which are too small to characterize. Structures measure up to 1.2 cm and favor small benign cysts. The gallbladder is not identified. The spleen, pancreas and adrenal glands are unremarkable. There are multitude of cysts throughout both kidneys. Cysts measure up to 5.5 cm. There are multiple bilateral nonobstructing renal stones measuring up to 1.6 cm. Postoperative changes are seen in the right hemiabdomen. There appears to been prior right hemicolectomy. There is thickening of the mucosa of the transverse colon immediately inferior to the anastomosis up to 1.8 cm with mild adjacent stranding. Mucosal thickening extends to the descending colon. Pelvis: The urinary bladder is unremarkable. The appendix is not visualized. There is no pelvic mass or inflammation. IMPRESSION: Multiple bilateral renal cysts with nonobstructing stones. Benign-appearing cysts in the liver. Postoperative change from right hemicolectomy with abnormal thickening of the transverse and descending colon. Findings could represent acute infectious or inflammatory colitis. Reviewed, Interpreted and Dictated by Primitivo Rodriguez MD Transcribed by Seth Noe Authenticated by Primitivo Rodriguez MD on 06/04/2021 11:22:47 AM [facility]
--- NOTE | 2021-06-04 09:43 | PC.NURSE ---
patient to CT with technical document writer by wheelchair
--- NOTE | 2021-06-04 09:55 | PC.NURSE ---
patient back from CT with information technology architect by wheelchair
[2021-06-04 10:00] VITALS: BP 147/79; PULSE 78; O2SAT 95
--- NOTE | 2021-06-04 10:10 | PC.NURSE ---
patient given a urinal and let him know we need a urine specimen as soon as he can get us one
[2021-06-04 10:30] VITALS: BP 138/73; PULSE 78; O2SAT 91
--- NOTE | 2021-06-04 11:52 | PC.NURSE ---
ED MD at for update on POC
[2021-06-04 12:06] LABS: Microscopic, Urine URINE MICROSCOPIC (MICROSCOPIC)
[2021-06-04 12:14] LABS: Appearance,Urine TURBID (Clear); Bilirubin,Urine Negative (Negative); Blood, Urine TRACE-I (Negative); Color,Urine YELLOW (Yellow); Glucose,Urine (UA) Negative (Negative); Ketones,Urine Negative (Negative); Leukocyte Esterase,Urine 3+ (Negative); Nitrate,Urine Negative (Negative); Protein,Urine TRACE (Negative); Specific Gravity, Urine 1.015 (1.005-1.030); Urobilinogen,Urine 0.2 EU/dl (0.2)
[2021-06-04 12:42] LABS: Bacteria,Urine 4+ /lpf; Squamous Epithelial Cell,Urine Occasional #/hpf (0-5); WBC,Urine 50-100 #/hpf (0-3)
--- NOTE | 2021-06-04 12:44 | PC.NURSE ---
Patient transferred to EMS stretcher with assist x 3 without any complications
[2021-06-04 12:58] VITALS: BP 127/74; PULSE 78; RESP 16; TEMP 36.6; O2SAT 98
== END 2021-06-04 13:00 | disposition home or self-care (01) ==
PROVIDERS: Emergency Provider Emergency Medicine; PCP Emergency Medicine
DX: I13.0 Hypertensive heart and chronic kidney disease with heart failure and stage 1 through stage 4 chronic kidney disease, or unspecified chronic kidney disease (principal); I50.30 Unspecified diastolic (congestive) heart failure; N18.30 Chronic kidney disease, stage 3 unspecified; N39.0 Urinary tract infection, site not specified; R11.2 Nausea with vomiting, unspecified; R19.7 Diarrhea, unspecified; H54.7 Unspecified visual loss; I50.1 Left ventricular failure, unspecified; I27.20 Pulmonary hypertension, unspecified; I25.10 Atherosclerotic heart disease of native coronary artery without angina pectoris; I48.91 Unspecified atrial fibrillation; K21.9 Gastro-esophageal reflux disease without esophagitis; E78.5 Hyperlipidemia, unspecified; J98.11 Atelectasis; N20.0 Calculus of kidney; K76.89 Other specified diseases of liver; N28.1 Cyst of kidney, acquired; E66.9 Obesity, unspecified; Z79.01 Long term (current) use of anticoagulants; Z79.51 Long term (current) use of inhaled steroids; Z79.1 Long term (current) use of non-steroidal anti-inflammatories (NSAID); Z79.82 Long term (current) use of aspirin; Z79.899 Other long term (current) drug therapy; Z95.5 Presence of coronary angioplasty implant and graft; Z68.30 Body mass index [BMI] 30.0-30.9, adult; Z85.038 Personal history of other malignant neoplasm of large intestine; Z86.718 Personal history of other venous thrombosis and embolism; Z92.21 Personal history of antineoplastic chemotherapy; Z87.891 Personal history of nicotine dependence
CPT/HCPCS: 71045; 74176; 80053; 81001; 83605; 83690; 83880; 85025; 87086; 87088; 87186; 96361; 96365; 96374; 96375; 99285; J2405

== ENCOUNTER → 2021-06-13 09:01 | Outpatient (CLI) | payer MEDICARE, MEDICAID, SELFPAY ==
[2021-06-13 09:13] LABS: Hematocrit 32.8 % (42.0-52.0); Hemoglobin 9.7 g/dL (14.1-18.0)
== END ==
PROVIDERS: Visit Provider Emergency Medicine
DX: D64.9 Anemia, unspecified (principal)
CPT/HCPCS: 85014; 85018

== ENCOUNTER → 2021-09-15 08:33 | Outpatient (CLI) | payer MEDICARE, MEDICAID, SELFPAY ==
--- NOTE | 2021-09-15 08:54 | CT_ITS ---
FINAL REPORT CLINICAL HISTORY: COLON CANCER COMPARISON: June 04, 2021 FINDINGS: Axial CT images of the abdomen and pelvis were obtained without intravenous contrast. Oral contrast was administered. Coronal reformatted images were also obtained.This study was performed with techniques to keep radiation doses as low as reasonably achievable (ALARA). Individualized dose reduction techniques using automated exposure control or adjustment of mA and/or kV according to the patient's size were employed. Abdomen: There is scarring in the lung bases. Multiple bilateral renal masses likely represent cysts. There are multiple bilateral renal stones measuring up to 6 mm on the right and 8 mm on the left, stable from prior. There are multiple small low-attenuation foci in the liver that cannot be accurately characterize but are similar to the prior exam and may represent cysts. The spleen and pancreas have an unremarkable, unenhanced appearance. No inflammatory process is identified. There are multiple colonic diverticulum. There is postoperative change in the right abdomen from right hemicolectomy. There are small umbilical and periumbilical hernias containing fat, stable. Pelvis: Images of the pelvis reveal no evidence of ureteral dilation or ureteral stone.No mass or abnormal fluid collection is identified. The urinary bladder is distended with wall thickening which is likely inflammatory. The prostate is enlarged. There are small inguinal hernias containing fat. There is a right L5 pars defect. IMPRESSION: Bilateral nephrolithiasis, stable. Stable renal and hepatic masses likely representing cysts. Postoperative change from right hemicolectomy. Reviewed, Interpreted and Dictated by Ger Andrews III, MD Transcribed by Seth Noe Authenticated and . [facility]
== END ==
PROVIDERS: PCP Emergency Medicine; Visit Provider Internal Medicine Medical Oncology
DX: C18.9 Malignant neoplasm of colon, unspecified (principal)
CPT/HCPCS: 74176

== ENCOUNTER → 2021-12-13 10:50 | Outpatient (CLI) | payer MEDICARE, MEDICAID, SELFPAY | PROVIDERS: PCP Emergency Medicine; Visit Provider Emergency Medicine | DX: Z20.822 Contact with and (suspected) exposure to COVID-19 (principal) | CPT/HCPCS: C9803; U0003; U0005 ==

== ENCOUNTER 2021-12-15 13:07 | Day surgery (SDC) | payer MEDICARE, MEDICAID, SELFPAY ==
[2021-11-17 13:21] VITALS: BMI 29.2
[2021-12-15 13:36] VITALS: BP 160/94; PULSE 66; RESP 18; TEMP 36.3; O2SAT 93
[2021-12-15 13:47] VITALS: O2SAT 96
--- NOTE | 2021-12-15 14:18 | P.PCN_ITS ---
Procedure: Date: 12/15/21 Patient Date of :: 1950 Procedure Performed:: Colonoscopy with polypectomy Indications:: Right colon cancer status post resection in September 2020 Performing Provider:: Scar Mckeon MD Referring Provider:: . Sedation:: Monitored anesthesia care Procedure:: After informed consent was obtained the patient was taken to the endoscopy suite. Sedation ensued after the patient was transferred to the left lateral decubitus position. Pulse, blood pressure, and oxygen saturation were monitored throughout the procedure. Digital rectal exam revealed no significant abnormality. The colonoscope was placed in position. The entire remaining colon was evaluated. The colonoscope was carefully removed and the patient was transferred to recovery in stable condition. Please see findings and specimens below for detail. Findings:: Bowel preparation poor Hemorrhoidal tags Significant spasticity Scattered diverticulosis Polyps (see specimens) Specimens:: Polyp at 12 cm (cold biopsy forceps) Polyp at 7 cm (cold biopsy forceps) Polyp at 5 cm (cold snare) Recommendations:: Timing of repeat colonoscopy is pending pathology but will likely be between 6- 12 months with extended/alternate bowel preparation. Complications:: No immediate with the exception of poor bowel preparation Estimated blood obtained (mL): 1
[2021-12-15 14:24] VITALS: BP 111/71; PULSE 64; RESP 18; TEMP 36.4; O2SAT 89
[2021-12-15 14:34] VITALS: BP 128/74; PULSE 65; RESP 17; O2SAT 96
[2021-12-15 14:44] VITALS: BP 149/94; PULSE 65; RESP 18; O2SAT 99
[2021-12-15 14:54] VITALS: BP 138/77; PULSE 66; RESP 18; O2SAT 99
== END 2021-12-15 15:08 | disposition home or self-care (01) ==
PROVIDERS: PCP Emergency Medicine; Visit Provider Surgery
PROC: 0DJD8ZZ Inspection of Lower Intestinal Tract, Via Natural or Artificial Opening Endoscopic (ICD-10-PCS; principal; 2021-12-15 13:30)
DX: Z12.11 Encounter for screening for malignant neoplasm of colon (principal); Z85.038 Personal history of other malignant neoplasm of large intestine; K63.5 Polyp of colon; K57.90 Diverticulosis of intestine, part unspecified, without perforation or abscess without bleeding; Z79.899 Other long term (current) drug therapy
CPT/HCPCS: 45380; 45385

== ENCOUNTER → 2022-04-26 04:58 | Outpatient (CLI) | payer MEDICARE, MEDICAID, SELFPAY ==
[2022-04-26 05:27] LABS: Microscopic, Urine URINE MICROSCOPIC (MICROSCOPIC)
[2022-04-26 06:03] LABS: Appearance,Urine TURBID (Clear); Bilirubin,Urine Negative (Negative); Blood, Urine 3+ (Negative); Color,Urine RED (Yellow); Glucose,Urine (UA) Negative (Negative); Ketones,Urine Negative (Negative); Leukocyte Esterase,Urine 1+ (Negative); Nitrate,Urine Negative (Negative); Protein,Urine 3+ (Negative); Specific Gravity, Urine 1.025 (1.005-1.030); Urobilinogen,Urine 0.2 EU/dl (0.2)
[2022-04-26 06:23] LABS: Bacteria,Urine Trace /lpf; RBC,Urine TNTC #/hpf (0-3); Squamous Epithelial Cell,Urine Occasional #/hpf (0-5)
== END ==
PROVIDERS: PCP Emergency Medicine; Visit Provider Emergency Medicine
DX: R31.0 Gross hematuria (principal)
CPT/HCPCS: 81001; 87086

== ENCOUNTER → 2022-04-26 05:04 | Outpatient (CLI) | payer MEDICARE, MEDICAID, SELFPAY ==
[2022-04-26 05:34] LABS: Basophils # 0.1 K/mm3 (0-0.2); Basophils % 0.7 % (0.1-2.0); Eosinophils # 0.4 K/mm3 (0.0-0.4); Eosinophils % 5.4 % (0.1-12.0); Hematocrit 28.4 % (42.0-52.0); Hemoglobin 8.7 g/dL (14.1-18.0); Lymphocytes # 1.1 K/mm3 (0.7-4.5); Lymphocytes % 15.8 % (10-50); Mean Corpuscular HGB Conc 30.6 g/dL (31.8-35.4); Mean Corpuscular Hemoglobin 27.6 pg (27.0-31.2); Mean Corpuscular Volume 90.3 fl (80-94); Mean Platelet Volume 8.1 fl (7.4-10.4); Monocytes # 0.5 K/mm3 (0.1-1.0); Neutrophils # 4.7 K/mm3 (1.8-7.8); Neutrophils % 70.1 % (37.0-80.0); Platelet Count 293 K/mm3 (142-424); Red Blood Count 3.15 M/mm3 (4.60-6.20); Red Cell Distribution Width 15.9 % (11.5-17.5); White Blood Count 6.7 K/mm3 (4.8-10.8)
[2022-04-26 05:42] LABS: Chloride 118 mmol/L (98-107); Potassium 4.5 mmoL/L (3.5-5.1); Sodium 147 mmol/L (136-145)
[2022-04-26 05:45] LABS: Alanine Aminotransferase 13 U/L (12-78); Albumin Level 3.3 g/dl (3.5-5.0); Albumin/Globulin Ratio 1.1 (1.1-1.8); Alkaline Phosphatase 59 U/L (38-126); Anion Gap 10.5 mEq/L (5-15); Aspartate Amino Transferase 16 U/L (17-59); Blood Urea Nitrogen 51 mg/dl (9-20); Carbon Dioxide 23 mmol/L (22.0-30.0); Estimated Glomerular Filt Rate 24 ml/min (>60); GFR (African American) 29 ML/MIN (>60); Globulin 2.9 g/dL (1.3-3.2); Total Protein,Serum 6.2 g/dl (6.3-8.2)
[2022-04-26 05:46] LABS: Calcium 8.1 mg/dl (8.4-10.2); Glucose 111 mg/dl (74-100)
[2022-04-26 05:47] LABS: Bilirubin,Total < 0.1 mg/dl (0.2-1.3)
== END ==
PROVIDERS: PCP Emergency Medicine; Visit Provider Emergency Medicine
DX: R31.0 Gross hematuria (principal)
CPT/HCPCS: 80053; 81001; 85025; 87086

== ENCOUNTER 2022-04-26 05:11 | Emergency (ER) | payer MEDICARE, MEDICAID, SELFPAY ==
[2022-04-26 05:11] VITALS: BP 128/71; PULSE 76; RESP 20; TEMP 36.8; O2SAT 96; BMI 28.7
--- NOTE | 2022-04-26 05:38 | CT_ITS ---
PROCEDURE INFORMATION: Exam: CT Abdomen And Pelvis Without Contrast Exam date and time: 04/26/2022 6:01 AM Age: 71 years old Clinical indication: Abdominal pain; Additional info: L abd pain, gross hematuria TECHNIQUE: Imaging protocol: Computed tomography of the abdomen and pelvis without contrast. Radiation optimization: All CT scans at this facility use at least one of these dose optimization techniques: automated exposure control; mA and/or kV adjustment per patient size (includes targeted exams where dose is matched to clinical indication); or iterative reconstruction. Other protocol: This patient has received 4 known CTs and 0 known cardiac nuclear medicine studies in the 12 months prior to the current study. COMPARISON: CT ABDOMEN PELVIS WO CON 09/15/2021 10:55 AM FINDINGS: Detailed evaluation of the abdominal and pelvic viscera is somewhat limited in the absence of intravenous contrast. Lungs: Emphysematous change, interstitial prominence, and mild airspace disease. Liver: Fatty infiltration of the liver and hepatic cysts, including an 11 mm dome cyst. Gallbladder and bile ducts: Contracted gallbladder. Pancreas: No pancreatic mass or ductal dilatation. Spleen: No splenomegaly. Adrenal glands: Unremarkable adrenals. Kidneys and ureters: Numerous bilateral renal cysts, in a pattern of autosomal dominant polycystic kidney disease, including a 5.3 cm left renal cyst. Bilateral nonobstructing renal calculi, including a 9 mm left renal calculus. Bilateral collecting system fullness, without obstructing urolithiasis. Stomach and bowel: Questionable wall thickening in the nondistended proximal stomach. Bowel dilatation and prominent stool. Diverticula, without pericolonic inflammation. Status post right hemicolectomy. Appendix: Status post appendectomy. Intraperitoneal space: No significant intraperitoneal fluid. Vasculature: Vascular calcification and ectasia. Lymph nodes: Subcentimeter lymph nodes. Urinary bladder: Dilated bladder with trabeculated morphology, wall thickening, and dependent hyperdensity, suggesting hemorrhage in the absence of intravenous contrast. Reproductive: Calcifications in the enlarged prostate, producing extrinsic compression of the bladder base with loss of normal fascial planes. Bones/joints: Stable 13 mm bone island in the left femoral head. L5 spondylolysis. Schmorl's nodes and vertebral endplate depression. Degenerative change and disc bulging. Soft tissues: Gynecomastia. Fat containing umbilical, ventral wall, and inguinal hernias. IMPRESSION: 1. Numerous bilateral renal cysts, in a pattern of autosomal dominant polycystic kidney disease, including a 5.3 cm left renal cyst. 2. Bilateral nonobstructing renal calculi, including a 9 mm left renal calculus. 3. Dilated bladder with trabeculated morphology, wall thickening, and dependent hyperdensity, suggesting hemorrhage in the absence of intravenous contrast. 4. Calcifications in the enlarged prostate, producing extrinsic compression of the bladder base with loss of normal fascial planes. 5. Additional findings as described above. COMMENTS: Consistent with the [place] [employer]'s Incidental Findings Committee white paper (J Am Rupa Radiol 2018): Any incidental renal lesion less than 1 cm or classified as too small to characterize, or any incidental cystic renal lesion characterized as simple-appearing, is likely benign. No follow-up imaging is recommended for these lesions per consensus recommendations based on imaging criteria.
[2022-04-26 05:48] LABS: Basophils # 0.1 K/mm3 (0-0.2); Basophils % 0.7 % (0.1-2.0); Eosinophils # 0.3 K/mm3 (0.0-0.4); Eosinophils % 4.6 % (0.1-12.0); Hematocrit 28.3 % (42.0-52.0); Hemoglobin 9.1 g/dL (14.1-18.0); Lymphocytes % 15.1 % (10-50); Mean Corpuscular HGB Conc 31.9 g/dL (31.8-35.4); Mean Corpuscular Hemoglobin 28.4 pg (27.0-31.2); Mean Corpuscular Volume 88.9 fl (80-94); Monocytes # 0.5 K/mm3 (0.1-1.0); Monocytes % 8.3 % (1.7-9.3); Neutrophils # 4.6 K/mm3 (1.8-7.8); Neutrophils % 71.4 % (37.0-80.0); Platelet Count 302 K/mm3 (142-424); Red Blood Count 3.19 M/mm3 (4.60-6.20); White Blood Count 6.5 K/mm3 (4.8-10.8)
[2022-04-26 05:52] LABS: Chloride 117 mmol/L (98-107); Sodium 147 mmol/L (136-145)
[2022-04-26 05:53] LABS: Potassium 4.4 mmoL/L (3.5-5.1)
[2022-04-26 05:54] LABS: INR 1.23 (0.9-1.1); Prothrombin Time 13.1 seconds (10.1-12.5)
[2022-04-26 05:55] LABS: Blood Urea Nitrogen 52 mg/dl (9-20); Creatinine Clearance Estimated 37 mL/min (50-200); Estimated Glomerular Filt Rate 23 ml/min (>60); GFR (African American) 28 ML/MIN (>60)
[2022-04-26 05:56] LABS: Anion Gap 10.4 mEq/L (5-15); Calcium 8.2 mg/dl (8.4-10.2); Carbon Dioxide 24 mmol/L (22.0-30.0); Glucose 114 mg/dl (74-100)
[2022-04-26 05:57] LABS: C-Reactive Protein 15.3 mg/L (0-4)
[2022-04-26 06:05] LABS: NT Pro Brain Natriuretic Pep. 321 pg/mL (0-125)
--- NOTE | 2022-04-26 06:10 | PC.NURSE ---
Patient bladder scanned to verify urinary retention. Patient has greater than 950ml of Urine despite voiding 100cc of urine upon arrival to ER. MD notified. Orders received to place an indwelling bhandari catheter.
[2022-04-26 06:11] LABS: Procalcitonin 0.562 ng/mL (0.0-2.0)
[2022-04-26 06:15] LABS: Erythrocyte Sedimentation Rate 106 mm/hr (0-20)
--- NOTE | 2022-04-26 06:25 | HMH.EDUROGM ---
Discharge Plan Disposition Patient Disposition: Xfer [facility] Prescriptions Prescriptions: New cephalexin [cephalexin] 500 mg capsule 500 mg PO TID Qty: 21 0RF No Action atorvastatin 10 mg tablet 10 mg PO DAILY omeprazole 20 mg capsule,delayed release(DR/EC) 20 mg PO DAILY ferrous sulfate [Feosol] 325 mg (65 mg iron) tablet 325 mg PO DAILY albuterol sulfate 90 mcg/actuation HFA aerosol inhaler 1 inh INHALATION ONCE aspirin 81 MG tablet,chewable 81 mg PO DAILY tamsulosin 0.4 MG capsule 0.4 mg PO HS metoprolol succinate 200 MG tablet extended release 24 hr 200 mg PO DAILY isosorbide mononitrate 30 MG tablet extended release 24 hr 30 mg PO DAILY aluminum hydrox-magnesium carb 355 ML suspension 30 ml PO Q4HP PRN (Reason: Acid Reflux) timolol maleate 5 ML drops 1 drp EYE-BOTH DAILY Label Comments: INSTILL ONE DROP IN EACH EYE EVERY DAY IN THE MORNING ondansetron 4 MG tablet,disintegrating 4 mg SL TIDP PRN (Reason: Nausea And Vomiting) 3 Days Qty: 12 0RF oxcarbazepine 300 MG tablet 300 mg PO BID rivaroxaban 20 MG tablet 20 mg PO DAILY amlodipine 10 MG tablet 10 mg PO BID loperamide 2 mg Capsule 2 mg PO Q6H PRN (Reason: Diarrhea) guaifenesin [Robafen] 100 mg/5 mL Liquid 200 mg PO Q4H PRN (Reason: Cough) acetaminophen 500 mg Tablet,Chewable 500 mg PO Q4H PRN (Reason: Pain) Referrals Follow up/Referrals: Shaquille Bowden MD [Primary Care Provider] - See instructions Clinical Impressions Clinical Impression: Hematuria, Renal insufficiency, Anemia, Acute urinary retention Instructions Patient Instructions: DI for Urinary Tract Infection (UTI), DI for Urinary Retention in Men, How to Care for Your Jason Catheter -- Male Discharge ED Provider: Dennise (ED)Shaquille Male Urogenital HPI General Chief complaint: Urogenital-Male Stated complaint: gross hematuria, abd pain Time Seen by Provider: 04/26/22 06:25 Mode of Arrival: EMS Source of Information: Patient, EMS and Medical Record Limitations: blindness Description of Symptoms (Recalled from ER Triage Doc. by RN): Pt sent by [facility] d/t gross hematuria and Left side ABD pain. Marli Reyna reports that pt had an 2 earlier episodes and then they collected labs and a urine sample. However the 3rd urine sample looked just like grape juice so I knew he had to be sent to the ER . Tenderness noted to LUQ & LLQ of bad. States the abd pain after the gross hematuria History of Present Illness HPI Narrative: sent from [facility] with hematuria - no trauma and pt on fabiana ESPINOZA Complaint: other (blood in urine ) Onset (ago): hour(s) Duration: intermittent Severity: moderate Reports blood in urine Related Data Sexually active: No Home Medications Medication Instructions Recorded Confirmed oxcarbazepine 300 mg tablet 300 mg PO BID Seizures 08/20/18 04/26/22 aspirin 81 mg chewable tablet 81 mg PO DAILY HEART HEALTH 04/08/19 04/26/22 tamsulosin 0.4 mg capsule 0.4 mg PO HS prostate 07/08/20 04/26/22 aluminum hydrox-magnesium carb 95 30 ml PO Q4HP PRN Acid Reflux 07/09/20 04/26/22 mg-358 mg/15 mL oral suspension isosorbide mononitrate 30 mg 30 mg PO DAILY Chest pain 07/09/20 04/26/22 tablet,extended release 24 hr metoprolol succinate 200 mg 200 mg PO DAILY Hypertension 07/09/20 04/26/22 tablet,extended release 24 hr timolol maleate 0.5 % eye drops 1 drp Eye-Both DAILY Glaucoma 07/09/20 04/26/22 rivaroxaban 20 mg tablet 20 mg PO DAILY Blood thinner 09/23/20 04/26/22 amlodipine 10 mg tablet 10 mg PO BID Heart disease 12/12/20 04/26/22 atorvastatin 10 mg tablet 10 mg PO DAILY Cholesterol 12/18/20 04/26/22 ferrous sulfate 325 mg (65 mg 325 mg PO DAILY Supplement 12/18/20 04/26/22 iron) tablet (Feosol) omeprazole 20 mg capsule,delayed 20 mg PO DAILY GERD 12/18/20 04/26/22 release albuterol sulfate 90 mcg/actuation 1 inh inhalation ONCE SOA 06/15/21 04/26/22 ae
[2022-04-26 06:30] VITALS: BP 147/80; PULSE 70; O2SAT 98
[2022-04-26 06:33] LABS: Coronavirus 19, PCR Not Detected (NotDetected); Influenza A, PCR Not Detected (NotDetected); Influenza B, PCR Not Detected (NotDetected)
[2022-04-26 06:49] LABS: Microscopic, Urine URINE MICROSCOPIC (MICROSCOPIC)
[2022-04-26 07:01] VITALS: BP 157/84; PULSE 71; O2SAT 98
[2022-04-26 07:03] LABS: Lactic Acid 1.2 mmol/L (0.7-2.1)
[2022-04-26 07:07] LABS: Appearance,Urine TURBID (Clear); Bilirubin,Urine Negative (Negative); Blood, Urine 3+ (Negative); Color,Urine RED (Yellow); Glucose,Urine (UA) Negative (Negative); Ketones,Urine Negative (Negative); Leukocyte Esterase,Urine 1+ (Negative); Nitrate,Urine Negative (Negative); Protein,Urine 3+ (Negative); Urobilinogen,Urine 0.2 EU/dl (0.2)
[2022-04-26 07:08] LABS: Bacteria,Urine Trace /lpf; RBC,Urine TNTC #/hpf (0-3); WBC,Urine Occasional #/hpf (0-3)
[2022-04-26 07:30] VITALS: BP 153/84; PULSE 65; O2SAT 96
--- NOTE | 2022-04-26 08:29 | PC.NURSE ---
report called to dayana stark at [facility], notified her per Dr. Bowden wants to leave pts bhandari in place, STOP XARELTO, and he will make arrangements through his office for pt to see Dr. Berg with urology.
--- NOTE | 2022-04-26 08:32 | PC.NURSE ---
notified ems of pt needing transport back to [facility]
[2022-04-26 08:45] VITALS: BP 153/84; PULSE 65; RESP 18; TEMP 36.8; O2SAT 96
[2022-04-26 09:02] LABS: Prostate Specific Ag Screen 3.2 ng/ml (0.0-4.0)
== END 2022-04-26 08:45 ==
PROVIDERS: Emergency Provider Emergency Medicine; PCP Emergency Medicine
DX: R31.9 Hematuria, unspecified (principal); R33.9 Retention of urine, unspecified; D64.9 Anemia, unspecified; N18.30 Chronic kidney disease, stage 3 unspecified; I50.9 Heart failure, unspecified; K21.9 Gastro-esophageal reflux disease without esophagitis; I27.20 Pulmonary hypertension, unspecified; Z80.9 Family history of malignant neoplasm, unspecified; Z87.891 Personal history of nicotine dependence; Z20.822 Contact with and (suspected) exposure to COVID-19
CPT/HCPCS: 51702; 74176; 80048; 80053; 81001; 83605; 83880; 84145; 85025; 85610; 85651; 86140; 87040; 87086; 87088; 87186; 96361; 96374; 99285; G0103; C9803; J0696; U0003; U0005

== ENCOUNTER → 2022-04-27 15:13 | Outpatient (CLI) | payer MEDICARE, MEDICAID, SELFPAY ==
[2022-04-27 15:41] LABS: Basophils % 0.4 % (0.1-2.0); Eosinophils # 0.3 K/mm3 (0.0-0.4); Eosinophils % 3.8 % (0.1-12.0); Hemoglobin 8.3 g/dL (14.1-18.0); Lymphocytes # 1.2 K/mm3 (0.7-4.5); Lymphocytes % 14.8 % (10-50); Mean Corpuscular HGB Conc 29.6 g/dL (31.8-35.4); Mean Corpuscular Hemoglobin 27.6 pg (27.0-31.2); Mean Corpuscular Volume 93.3 fl (80-94); Mean Platelet Volume 8.6 fl (7.4-10.4); Monocytes # 0.5 K/mm3 (0.1-1.0); Monocytes % 6.8 % (1.7-9.3); Neutrophils # 5.8 K/mm3 (1.8-7.8); Neutrophils % 74.3 % (37.0-80.0); Platelet Count 286 K/mm3 (142-424); Red Cell Distribution Width 16.3 % (11.5-17.5); White Blood Count 7.8 K/mm3 (4.8-10.8)
== END ==
PROVIDERS: PCP Emergency Medicine; Visit Provider Emergency Medicine
DX: D64.9 Anemia, unspecified (principal)
CPT/HCPCS: 85025

== ENCOUNTER 2022-05-23 21:23 | Emergency (ER) | payer MEDICARE, MEDICAID, SELFPAY ==
--- NOTE | 2022-05-23 21:00 | ECG_ITS ---
APPROVED REPORT Exam: Resting ECG HR:70 bpm ECG Measurements Heart Rate 70 AXES ID 203 P 31 QRSd 107 QRS -34 QT 420 T 55 QTc 440 Conclusion SINUS RHYTHM LEFT AXIS DEVIATION [QRS AXIS < -30] PATTERN CONSISTENT WITH PULMONARY DISEASE MINIMAL ST DEPRESSION [0.025+ mV ST DEPRESSION] ABNORMAL ECG UNCONFIRMED REPORT Electronically signed by : Syed Modi MD 05/24/2022 19:27:58
[2022-05-23 21:24] VITALS: BMI 26.9
--- NOTE | 2022-05-23 21:26 | XR_ITS ---
PROCEDURE INFORMATION: Exam: XR Chest Exam date and time: 05/23/2022 10:09 PM Age: 71 years old Clinical indication: Shortness of breath; Additional info: Cp, SOA, dyspnea, low sat TECHNIQUE: Imaging protocol: Radiologic exam of the chest. Views: 1 view. COMPARISON: CR XR CHEST PORTABLE 06/04/2021 9:01 AM FINDINGS: Lungs: Unremarkable. No consolidation. Pleural spaces: Unremarkable. No pleural effusion. No pneumothorax. Heart/Mediastinum: Unremarkable. No cardiomegaly. Bones/joints: Moderate degenerative changes noted in the thoracic spine. IMPRESSION: No acute disease
[2022-05-23 21:31] VITALS: BP 148/81; PULSE 73; RESP 21; TEMP 36.6; O2SAT 92; BMI 27.1
[2022-05-23 21:35] VITALS: BP 133/79; PULSE 71; RESP 18; O2SAT 98
[2022-05-23 21:40] LABS: ABG Base Excess -6.5 mmol/L (-2.4-2.3); ABG HCO3 18.3 mmhg (22.0-26.0); ABG Oxygen Saturation 95 % (90-100); ABG PCO2 30.1 mmhg (35.0-45.0); ABG PO2 75.8 mmhg (80-100); ABG TCO2 19.2 mmhg (23-27)
[2022-05-23 21:41] LABS: Allen's Test Y; Oxygen 2 %; Source Right Radial
[2022-05-23 21:44] LABS: Basophils # 0.1 K/mm3 (0-0.2); Basophils % 0.8 % (0.1-2.0); Eosinophils # 0.4 K/mm3 (0.0-0.4); Eosinophils % 5.9 % (0.1-12.0); Hematocrit 30.6 % (42.0-52.0); Hemoglobin 9.4 g/dL (14.1-18.0); Lymphocytes # 1.2 K/mm3 (0.7-4.5); Lymphocytes % 17.5 % (10-50); Mean Corpuscular HGB Conc 30.6 g/dL (31.8-35.4); Mean Corpuscular Volume 91.4 fl (80-94); Mean Platelet Volume 8.2 fl (7.4-10.4); Monocytes # 0.6 K/mm3 (0.1-1.0); Monocytes % 8.6 % (1.7-9.3); Neutrophils # 4.5 K/mm3 (1.8-7.8); Neutrophils % 67.2 % (37.0-80.0); Platelet Count 286 K/mm3 (142-424); Red Blood Count 3.35 M/mm3 (4.60-6.20); Red Cell Distribution Width 15.7 % (11.5-17.5); White Blood Count 6.7 K/mm3 (4.8-10.8)
[2022-05-23 21:50] LABS: Alanine Aminotransferase 16 U/L (12-78); Alkaline Phosphatase 65 U/L (38-126); Anion Gap 15.3 mEq/L (5-15); Aspartate Amino Transferase 21 U/L (17-59); Bilirubin,Direct 0.2 mg/dl (0.0-0.4); Bilirubin,Total 0.2 mg/dl (0.2-1.3); Blood Urea Nitrogen 34 mg/dl (9-20); Calcium 8.4 mg/dl (8.4-10.2); Carbon Dioxide 22 mmol/L (22.0-30.0); Chloride 111 mmol/L (98-107); Creatinine Clearance Estimated 28 mL/min (50-200); Estimated Glomerular Filt Rate 21 ml/min (>60); GFR (African American) 25 ML/MIN (>60); Glucose 139 mg/dl (74-100); Lactic Acid 1.1 mmol/L (0.7-2.1); Magnesium 2.6 mg/dl (1.6-2.3); Potassium 4.3 mmoL/L (3.5-5.1); Sodium 144 mmol/L (136-145); Total Protein,Serum 7.4 g/dl (6.3-8.2)
[2022-05-23 21:55] LABS: C-Reactive Protein 65.5 mg/L (0-4)
--- NOTE | 2022-05-23 21:58 | HMH.EDCP ---
Discharge Plan Disposition Patient Disposition: Home, Self-Care Prescriptions Prescriptions: New cephalexin [cephalexin] 500 mg capsule 500 mg PO TID Qty: 21 0RF No Action atorvastatin 10 mg tablet 10 mg PO HS omeprazole 20 mg capsule,delayed release(DR/EC) 20 mg PO DAILY ferrous sulfate [Feosol] 325 mg (65 mg iron) tablet 325 mg PO DAILY albuterol sulfate 90 mcg/actuation HFA aerosol inhaler 1 inh INHALATION ONCE aspirin 81 MG tablet,chewable 81 mg PO DAILY tamsulosin 0.4 MG capsule 0.4 mg PO HS metoprolol succinate 200 MG tablet extended release 24 hr 200 mg PO DAILY isosorbide mononitrate 30 MG tablet extended release 24 hr 30 mg PO DAILY aluminum hydrox-magnesium carb 355 ML suspension 30 ml PO Q4HP PRN (Reason: Acid Reflux) timolol maleate 5 ML drops 1 drp EYE-BOTH DAILY Label Comments: INSTILL ONE DROP IN EACH EYE EVERY DAY IN THE MORNING ondansetron 4 MG tablet,disintegrating 4 mg SL TIDP PRN (Reason: Nausea And Vomiting) 3 Days Qty: 12 0RF multivitamin [Multivitamins FC] Tablet 1 tab PO DAILY oxcarbazepine 300 MG tablet 300 mg PO BID amlodipine 10 MG tablet 10 mg PO BID loperamide 2 mg Capsule 2 mg PO Q6H PRN (Reason: Diarrhea) guaifenesin [Robafen] 100 mg/5 mL Liquid 200 mg PO Q4H PRN (Reason: Cough) acetaminophen 500 mg Tablet,Chewable 500 mg PO Q4H PRN (Reason: Pain) Referrals Follow up/Referrals: Shaquille Bowden MD [Primary Care Provider] - See instructions Clinical Impressions Clinical Impression: Atypical chest pain, UTI (urinary tract infection), Urinary retention, Renal failure (ARF), acute on chronic Instructions Patient Instructions: DI for Urinary Retention in Men Discharge ED Provider: Dennise (ED)Shaquille Chest Pain HPI General Chief Complaint: Chest Pain Stated Complaint: Chest Pain and SOA Time Seen by Provider: 05/23/22 21:58 Mode of Arrival: EMS Source of Information: Patient, EMS and Medical Record Limitations: No Limitations Description of Symptoms (Recalled from ER Triage Doc. by RN): Pt arrives via ems from [facility]. States that he ate dinner tonight and went to his room and had a nap and when he woke up he was having severe chest pain that radiates into his abdomen and shortness of air. Does report a similar episode of chest pain last night but states that the pain eased up last night so he did not come in for evaluation. Tonyordy patient denies any nausea or vomiting. Denies any jaw pain. History of Present Illness HPI narrative: pt sent from [facility] for lower chest pain and upper abd area which started roman ESPINOZA complaint: chest pain Onset (ago): hour(s) Duration: intermittent Activity at onset: during rest Pain location: epigastric Severity: moderate Risk Factors for CAD: Family Hx of CAD Treatments prior to or on arrival for Cardiac Chest Pain: none DAFNE Score for Non-Stemi Age of Patient: 70-79 years old Heart Rate: 70-89 bpm Systolic Blood Pressure: 100-119 mmHg Serum Creatinine: 2.00-3.99 mg/dl CHF Killip Class: I-No CHF Other Risk Factors: None Non-Stemi Risk Score: 148 Risk Stratification: [id number] = High Risk Related Data Prior Cardiac Testing/Procedures: Stenting Home Medications Medication Instructions Recorded Confirmed oxcarbazepine 300 mg tablet 300 mg PO BID Seizures 08/20/18 05/23/22 aspirin 81 mg chewable tablet 81 mg PO DAILY HEART HEALTH 04/08/19 05/23/22 tamsulosin 0.4 mg capsule 0.4 mg PO HS prostate 07/08/20 05/23/22 aluminum hydrox-magnesium carb 95 30 ml PO Q4HP PRN Acid Reflux 07/09/20 05/23/22 mg-358 mg/15 mL oral suspension isosorbide mononitrate 30 mg 30 mg PO DAILY Chest pain 07/09/20 05/23/22 tablet,extended release 24 hr metoprolol succinate 200 mg 200 mg PO DAILY Hypertension 07/09/20 05/23/22 tablet,extended release 24 hr timolol maleate 0.5 % eye drops 1 drp Eye-Both DAILY Glaucoma
[2022-05-23 22:01] VITALS: BP 133/73; PULSE 68; RESP 18; O2SAT 96
[2022-05-23 22:01] LABS: NT Pro Brain Natriuretic Pep. 602 pg/mL (0-125)
[2022-05-23 22:04] LABS: Troponin I 0.02 ng/ml (0.00-0.034)
[2022-05-23 22:19] LABS: Erythrocyte Sedimentation Rate 126 mm/hr (0-20)
--- NOTE | 2022-05-23 22:28 | PC.NURSE ---
Rounded on patient, patient states that the nitro table he had en route with ems did not help with his pain. MD notified. Orders for 20mg of famotidine IV one time and 10mg metoclopramide IV one time given.
[2022-05-23 22:31] VITALS: BP 133/80; PULSE 73; RESP 15; O2SAT 96
[2022-05-23 23:00] VITALS: BP 137/76; PULSE 74; RESP 16; O2SAT 98
--- NOTE | 2022-05-23 23:00 | PC.NURSE ---
Patient is resting in bed. I rounded on the patient to verify if he had any positive result from the IV pepcid and reglan and patient states that he is feeling better and is no longer having any pain in his chest.
--- NOTE | 2022-05-23 23:10 | PC.NURSE ---
Dr. Bowden at bedside and asked for amylase, lipase, and CT a/P wo contrast to be ordered. These were placed and radiologic tech notified.
--- NOTE | 2022-05-23 23:21 | CT_ITS ---
PROCEDURE INFORMATION: Exam: CT Abdomen And Pelvis Without Contrast Exam date and time: 05/23/2022 10:33 PM Age: 71 years old Clinical indication: Abdominal pain; Additional info: Abd pain, HX colon cancer TECHNIQUE: Imaging protocol: Computed tomography of the abdomen and pelvis without contrast. Radiation optimization: All CT scans at this facility use at least one of these dose optimization techniques: automated exposure control; mA and/or kV adjustment per patient size (includes targeted exams where dose is matched to clinical indication); or iterative reconstruction. REPORTING DATA: Count of CT and Cardiac NM exams in prior 12 months: This patient has received 3 known CTs and 0 known cardiac nuclear medicine studies in the 12 months prior to the current study. COMPARISON: CT ABDOMEN PELVIS WO CON 04/26/2022 6:01 AM FINDINGS: Coronary arteries: There are dense coronary artery calcifications. Liver: Multiple scattered small hypodense lesions throughout the liver appears similar to previous. These are compatible with small benign cysts or hemangiomas. Gallbladder and bile ducts: Normal. No calcified stones. No ductal dilation. Pancreas: Normal. No ductal dilation. Spleen: Normal. No splenomegaly. Adrenal glands: Normal. No mass. Kidneys and ureters: There are persistent multiple [id number] bilateral renal cysts and moderate-sized calyceal stones in both kidneys. No evidence of hydronephrosis. Stomach and bowel: There is moderate diverticulosis of the descending colon. No active inflammatory change or evidence of bowel obstruction. Appendix: No evidence of appendicitis. Intraperitoneal space: Unremarkable. No free air. No significant fluid collection. Vasculature: Moderate scattered atherosclerotic calcification noted in the aorta. No evidence of aortic aneurysm or dissection. Lymph nodes: Unremarkable. No enlarged lymph nodes. Urinary bladder: Urinary bladder is distended. Reproductive: Prostate gland is enlarged, measuring approximally 5.7 cm in diameter and producing moderate mass effect upon the bladder base. Bones/joints: Moderate degenerative changes noted in the lumbar spine and bony pelvis. No acute fracture. Soft tissues: Small fat containing ventral hernias noted at and above the level of the umbilicus. IMPRESSION: 1. No acute abnormality evident in the abdomen or pelvis. 2. Similar-appearing findings of bilateral multi-cystic kidneys and significant bilateral nephrolithiasis without evidence of obstructing ureteral stone or hydronephrosis. 3. Prostatomegaly and bladder distention raising concern for bladder outlet obstruction
[2022-05-23 23:38] VITALS: PULSE 72; RESP 17; O2SAT 97
--- NOTE | 2022-05-23 23:39 | PC.NURSE ---
pt back from ct scan
[2022-05-23 23:40] LABS: Amylase 35 U/L (30-110); Lipase 51 U/L (23-300)
[2022-05-24] VITALS: RESP 22; O2SAT 98
[2022-05-24 00:11] LABS: Microscopic, Urine URINE MICROSCOPIC (MICROSCOPIC)
[2022-05-24 00:15] LABS: Appearance,Urine CLOUDY (Clear); Bilirubin,Urine Negative (Negative); Blood, Urine 2+ (Negative); Color,Urine YELLOW (Yellow); Glucose,Urine (UA) Negative (Negative); Ketones,Urine Negative (Negative); Leukocyte Esterase,Urine 2+ (Negative); Nitrate,Urine POSITIVE (Negative); Protein,Urine 1+ (Negative); Urobilinogen,Urine 0.2 EU/dl (0.2)
[2022-05-24 00:28] LABS: Bacteria,Urine 2+ /lpf; Squamous Epithelial Cell,Urine Occasional #/hpf (0-5); WBC,Urine 20-50 #/hpf (0-3)
[2022-05-24 00:30] VITALS: PULSE 70; RESP 17; O2SAT 99
[2022-05-24 01:00] VITALS: PULSE 70; RESP 16; O2SAT 99
[2022-05-24 01:07] LABS: Troponin I 0.01 ng/ml (0.00-0.034)
[2022-05-24 01:30] VITALS: BP 115/67; PULSE 70; RESP 14; O2SAT 97
[2022-05-24 01:39] VITALS: PULSE 71; RESP 18; O2SAT 95
[2022-05-24 01:40] VITALS: BP 115/67; PULSE 71; RESP 19; TEMP 36.9; O2SAT 98
--- NOTE | 2022-05-24 02:05 | PC.NURSE ---
[facility] notified for pt transport back to [facility]. Patient report called to Marli RO @ [facility].
--- NOTE | 2022-05-24 02:26 | PC.NURSE ---
[facility] here for pt transport.
== END 2022-05-24 02:50 | disposition home or self-care (01) ==
PROVIDERS: Emergency Provider Emergency Medicine; PCP Emergency Medicine
DX: R07.89 Other chest pain (principal); N39.0 Urinary tract infection, site not specified; R33.9 Retention of urine, unspecified; N17.9 Acute kidney failure, unspecified; N18.30 Chronic kidney disease, stage 3 unspecified; I50.9 Heart failure, unspecified; K21.9 Gastro-esophageal reflux disease without esophagitis; Z86.79 Personal history of other diseases of the circulatory system; Z90.49 Acquired absence of other specified parts of digestive tract; Z83.3 Family history of diabetes mellitus
CPT/HCPCS: 51702; 71045; 74176; 80048; 80076; 81001; 82150; 82803; 83605; 83690; 83735; 83880; 84145; 84484; 85025; 85651; 86140; 87086; 87088; 87186; 93005; 96361; 96374; 96375; 99285; J0696

== ENCOUNTER 2022-06-22 07:15 | Day surgery (SDC) | payer MEDICARE, MEDICAID, SELFPAY ==
[2022-06-22] VITALS (10 sets, daily range): BP systolic 86–184; BP diastolic 56–98; PULSE 63–75; RESP 15–18; TEMP 36.4; O2SAT 94–96; BMI 30.4
--- NOTE | 2022-06-22 08:06 | EXP.ANES.CKL ---
[facility] Disclaimer: The information contained in this section may have been updated after the patient was seen, as this information can be updated by other users. Medical History (Updated 06/22/22 @ 07:45 by Bruno Castillo RN) Blind Chronic renal failure, stage 3 (moderate) Congestive heart failure CVA (cerebral vascular accident) Diastolic dysfunction Elevated left ventricular end-diastolic pressure (LVEDP) Gastroesophageal reflux Obesity (BMI 30.0-34.9) Overweight (BMI 25.0-29.9) Pulmonary HTN Visual impairment Surgical History (Updated 06/22/22 @ 07:46 by Bruno Castillo RN) History of colectomy History of colonoscopy History of ureteroscopy Family History Other Family history of cancer Social History Smoking Status: Never smoker alcohol intake: never substance use type: denies use current occupational status: disabled Travel in the last 8 weeks: None caregiver/support person: Yes household members: none housing: correction lives independently: No marital status: single current occupation: [employer] current occupational exposures/hazards: No caffeine: Yes special milad needs: No agree to transfusion: No do you feel safe at home: Yes victim of physical abuse: No victim of emotional abuse: No victim of sexual abuse: No would you like helpful sources: No [facility] Anesthesia Checklist Patient Identification Patient Identification: Arm Band and Verbal (Name & ) Structural Data Admitted From: Long-term Nursing Facility Planned Operative Procedure/s: colonoscopy Consent for Planned Operative Procedure(s) Verified: Yes Verified Documents: Surgical Consent NPO Status Verified Time NPO: 06:00 Chart Verification Results Verified: CBC and BMP Additional verifications Anesthesia Reactions: No Hx Blood Transfusions: No Blood Transfusion Reaction: No Airway Assessment C-Spine Mobility Assessed: Yes TMJ Mobility Assessed: Yes Dentition: Edentulous Neurological Assessment Level of Consciousness: Awake, Alert and Appropriate Anesthesia Plan Anesthesia Risk discussed: Yes ASA Class: III Anesthesia Type: MAC
--- NOTE | 2022-06-22 08:43 | XR_ITS ---
FINAL REPORT CLINICAL HISTORY: Post-colonoscopy pain FINDINGS: Chest: A single view of the chest demonstrates bibasilar atelectasis. Abdomen: Flat and upright views of the abdomen demonstrate multiple air-filled bowel loops in a nonspecific pattern. There are multiple presumed bilateral renal stones. There is no free air. There is degenerative change of the spine and hips. IMPRESSION: Nonspecific air-filled bowel loops. Presumed bilateral renal stones. Reviewed, Interpreted and Dictated by Ger Andrews III, MD Transcribed by Seth Noe Authenticated and . [facility]
--- NOTE | 2022-06-22 08:45 | HMH.SCOPE ---
Procedure: Date: 06/22/22 Patient Date of :: 1950 Procedure Performed:: Colonoscopy with biopsy Indications:: History of colon cancer Performing Provider:: Scar Mckeon MD Referring Provider:: . Sedation:: Monitored anesthesia care Procedure:: After informed consent was obtained the patient was taken to the endoscopy suite. Sedation ensued after the patient was transferred to the left lateral decubitus position. Pulse, blood pressure, and oxygen saturation were monitored throughout the procedure. Digital rectal exam revealed no significant abnormality. The colonoscope was placed in position. The entire remaining colon was evaluated. The colonoscope was carefully removed and the patient was transferred to recovery in stable condition. Please see findings and specimens below for detail. Findings:: Bowel preparation moderate Scattered diverticulosis Hemorrhoidal tag/cushions Mild irritation change at anastomosis status post right colectomy Splenic flexure focal inflammation with lobulation (biopsy and tattoo) Specimens:: Biopsy of splenic flexure focal inflammatory change with lobulation Recommendations:: Follow-up pathology Complications:: No immediate Estimated blood obtained (mL): 1
== END 2022-06-22 11:20 | disposition home or self-care (01) ==
PROVIDERS: PCP Emergency Medicine; Visit Provider Surgery
PROC: 0DJD8ZZ Inspection of Lower Intestinal Tract, Via Natural or Artificial Opening Endoscopic (ICD-10-PCS; principal; 2022-06-22 08:30)
DX: Z12.11 Encounter for screening for malignant neoplasm of colon (principal); K57.30 Diverticulosis of large intestine without perforation or abscess without bleeding; Z85.038 Personal history of other malignant neoplasm of large intestine; Z90.49 Acquired absence of other specified parts of digestive tract; Z79.899 Other long term (current) drug therapy
CPT/HCPCS: 45380; 74021; 88305; J2704

== ENCOUNTER → 2022-07-08 06:59 | Outpatient (CLI) | payer MEDICARE, MEDICAID, SELFPAY ==
--- NOTE | 2022-07-08 06:59 | CT_ITS ---
FINAL REPORT TECHNIQUE: Axial CT images were performed from the lung apices through the upper abdomen. Coronal reformats were submitted. This study was performed with techniques to keep radiation doses as low as reasonably achievable (ALARA). Individualized dose reduction techniques using automated exposure control or adjustment of mA and/or kV according to the patient's size were employed. CLINICAL HISTORY: SOB, lung nodule COMPARISON: 06/04/2021 FINDINGS: There is no axillary adenopathy. There are multiple small mediastinal nodes which are stable. Heart size is enlarged. Left coronary artery calcifications versus coronary artery stent. There is no pericardial or pleural effusion. There is a 37 mm lateral left upper lobe soft tissue opacity, was 23 mm. There is a separate new component posterior/inferior to it measuring 19 mm. Mild bibasilar atelectasis or scarring. Limited images of the upper abdomen demonstrate probable small hepatic cysts. There are probable partially imaged left renal cysts. IMPRESSION: Worsening left upper lobe soft tissue opacity most worrisome for neoplasm. Recommend CT-guided biopsy Reviewed, Interpreted and Dictated by Ger Andrews III, MD Transcribed by Sayra Bliss Authenticated and [facility]
== END ==
PROVIDERS: PCP Emergency Medicine; Visit Provider Physician Assistant
DX: R06.00 Dyspnea, unspecified (principal); R06.09 Other forms of dyspnea
CPT/HCPCS: 71250; 93306

== ENCOUNTER → 2022-07-15 10:55 | Outpatient (CLI) | payer MEDICARE, MEDICAID, SELFPAY ==
[2022-07-15 11:47] LABS: Basophils % 0.5 % (0.1-2.0); Eosinophils # 0.6 K/mm3 (0.0-0.4); Eosinophils % 8.5 % (0.1-12.0); Hemoglobin 10.1 g/dL (14.1-18.0); Lymphocytes # 1.2 K/mm3 (0.7-4.5); Lymphocytes % 17.6 % (10-50); Mean Corpuscular HGB Conc 30.8 g/dL (31.8-35.4); Mean Corpuscular Hemoglobin 27.4 pg (27.0-31.2); Mean Corpuscular Volume 89.1 fl (80-94); Mean Platelet Volume 7.4 fl (7.4-10.4); Monocytes # 0.6 K/mm3 (0.1-1.0); Monocytes % 8.7 % (1.7-9.3); Neutrophils # 4.4 K/mm3 (1.8-7.8); Neutrophils % 64.7 % (37.0-80.0); Platelet Count 228 K/mm3 (142-424); Red Cell Distribution Width 15.6 % (11.5-17.5); White Blood Count 6.7 K/mm3 (4.8-10.8)
[2022-07-15 11:59] LABS: C-Reactive Protein 33.9 mg/L (0-4)
[2022-07-20 18:00] LABS: Aspergillus flavus Negative (Neg:<1:1); Aspergillus fumigatus Negative (Neg:<1:1); Aspergillus niger Negative (Neg:<1:1); Blastomyces Antibody Negative (Neg:<1:1)
== END ==
PROVIDERS: PCP Emergency Medicine; Visit Provider Internal Medicine Pulmonary Disease
DX: J45.909 Unspecified asthma, uncomplicated (principal); R06.09 Other forms of dyspnea; J84.10 Pulmonary fibrosis, unspecified
CPT/HCPCS: 36415; 85025; 86140; 86606; 86612

== ENCOUNTER → 2022-07-16 10:00 | Outpatient (CLI) | payer MEDICARE, MEDICAID, SELFPAY | PROVIDERS: PCP Emergency Medicine; Visit Provider Internal Medicine Pulmonary Disease | DX: J18.9 Pneumonia, unspecified organism (principal) | CPT/HCPCS: 87070; 87077; 87116; 87186; 87205; 87206; 87220 ==

== ENCOUNTER 2022-08-25 19:37 | Inpatient (IN) | payer MEDICARE, MEDICAID, SELFPAY ==
[2022-08-25] VITALS (7 sets, daily range): BP systolic 151–170; BP diastolic 71–96; PULSE 73–84; RESP 18–31; TEMP 37.1–38.3; O2SAT 93–96; BMI 31.9
--- NOTE | 2022-08-25 19:49 | ECG_ITS ---
APPROVED REPORT Exam: Resting ECG HR:80 bpm ECG Measurements Heart Rate 80 AXES OH 211 P 40 QRSd 106 QRS -44 QT 361 T 53 QTc 397 Conclusion SINUS RHYTHM WITH FIRST DEGREE AV BLOCK LEFT AXIS DEVIATION [QRS AXIS < -30] PATTERN CONSISTENT WITH PULMONARY DISEASE ABNORMAL ECG UNCONFIRMED REPORT Electronically signed by : Syed Modi MD 08/27/2022 16:22:07
--- NOTE | 2022-08-25 19:53 | XR_ITS ---
PROCEDURE INFORMATION: Exam: XR Chest Exam date and time: 08/25/2022 7:52 PM Age: 71 years old Clinical indication: Fever; Additional info: Fever, chest pain TECHNIQUE: Imaging protocol: Radiologic exam of the chest. Views: 1 view. COMPARISON: CT CHEST WO CON 08/07/2022 07:06 FINDINGS: Lungs: Low lung volumes with associated vascular crowding and bibasilar atelectasis. Redemonstration of peripheral left upper lobe mass which appears mildly larger than on prior study. Pleural spaces: Unremarkable. No pleural effusion. No pneumothorax. Heart/Mediastinum: Cardiomegaly. Vasculature: Vascular calcifications. Bones/joints: Old right rib fractures. IMPRESSION: 1. Low lung volumes with associated vascular crowding and bibasilar atelectasis. In correlation with CT images, there is no pneumonia. 2. Redemonstration of peripheral left upper lobe mass which appears mildly larger than on prior study.
--- NOTE | 2022-08-25 20:19 | PC.NURSE ---
Discussed broad spectrum abx with provider. No new orders
[2022-08-25 20:23] LABS: Microscopic, Urine URINE MICROSCOPIC (MICROSCOPIC)
[2022-08-25 20:27] LABS: Coronavirus 19, PCR Not Detected (NotDetected); Influenza A, PCR Not Detected (NotDetected); Influenza B, PCR Not Detected (NotDetected)
[2022-08-25 20:28] LABS: Basophils % 0.2 % (0.1-2.0); Eosinophils # 0.2 K/mm3 (0.0-0.4); Eosinophils % 1.5 % (0.1-12.0); Hematocrit 34.1 % (42.0-52.0); Hemoglobin 10.5 g/dL (14.1-18.0); Lymphocytes # 0.8 K/mm3 (0.7-4.5); Lymphocytes % 6.1 % (10-50); Mean Corpuscular HGB Conc 30.7 g/dL (31.8-35.4); Mean Corpuscular Hemoglobin 26.4 pg (27.0-31.2); Mean Platelet Volume 8.1 fl (7.4-10.4); Monocytes # 0.7 K/mm3 (0.1-1.0); Monocytes % 5.4 % (1.7-9.3); Neutrophils % 86.8 % (37.0-80.0); Platelet Count 317 K/mm3 (142-424); Red Blood Count 3.96 M/mm3 (4.60-6.20); Red Cell Distribution Width 16.4 % (11.5-17.5); White Blood Count 12.7 K/mm3 (4.8-10.8)
[2022-08-25 20:33] LABS: MANUAL DIFFERENTIAL MANUAL DIFFERENTIAL (MANUAL DIFF)
[2022-08-25 20:35] LABS: Activated Partial Thrombo Time 25.5 seconds (22.8-30.6); INR 1.07 (0.9-1.1); Prothrombin Time 11.5 seconds (10.1-12.5)
[2022-08-25 20:36] LABS: Lactic Acid 1.3 mmol/L (0.7-2.1)
[2022-08-25 20:37] LABS: Alanine Aminotransferase 21 U/L (12-78); Albumin Level 4.4 g/dl (3.5-5.0); Albumin/Globulin Ratio 1.2 (1.1-1.8); Alkaline Phosphatase 72 U/L (38-126); Anion Gap 17.8 mEq/L (5-15); Aspartate Amino Transferase 25 U/L (17-59); Bilirubin,Total 0.2 mg/dl (0.2-1.3); Blood Urea Nitrogen 35 mg/dl (9-20); Carbon Dioxide 25 mmol/L (22.0-30.0); Chloride 104 mmol/L (98-107); Creatinine Clearance Estimated 46 mL/min (50-200); Estimated Glomerular Filt Rate 27 ml/min (>60); GFR (African American) 32 ML/MIN (>60); Globulin 3.6 g/dL (1.3-3.2); Glucose 129 mg/dl (74-100); Potassium 4.8 mmoL/L (3.5-5.1); Sodium 142 mmol/L (136-145)
--- NOTE | 2022-08-25 20:40 | CT_ITS ---
PROCEDURE INFORMATION: Exam: CT Chest Without Contrast; Diagnostic Exam date and time: 08/25/2022 9:19 PM Age: 71 years old Clinical indication: Dyspnea and fever; Additional info: Sepsis, pneumonia, fever, dyspnea, chest pain TECHNIQUE: Imaging protocol: Diagnostic computed tomography of the chest without contrast. Radiation optimization: All CT scans at this facility use at least one of these dose optimization techniques: automated exposure control; mA and/or kV adjustment per patient size (includes targeted exams where dose is matched to clinical indication); or iterative reconstruction. REPORTING DATA: Count of CT and Cardiac NM exams in prior 12 months: This patient has received 4 known CTs and 0 known cardiac nuclear medicine studies in the 12 months prior to the current study. COMPARISON: CT CHEST WO CON 08/07/2022 07:06 FINDINGS: Lungs: Interval enlargement of left upper lobe mass. This measures 4 by 2.9 cm on image 20 series 3, previously 3.6 x 2.7 cm. Mild paraseptal and centrilobular emphysema. Mild scarring and atelectasis in the lower lungs. Posterior atelectasis. Pleural spaces: Unremarkable. No pneumothorax. No pleural effusion. Heart: Cardiomegaly. Coronary arteries: Moderate coronary arterial calcification, indicating the presence of coronary artery disease. Lymph nodes: Unremarkable. No enlarged lymph nodes. Vasculature: The aorta demonstrates mild atherosclerotic disease. Bones/joints: Old right rib fractures. Soft tissues: Unremarkable. Other findings: Please see separate report for abdomen/pelvis. IMPRESSION: 1. No acute findings. 2. Interval enlargement of left upper lobe mass. This measures 4 by 2.9 cm on image 20 series 3, previously 3.6 x 2.7 cm. Malignancy would be most likely. 3. Moderate coronary arterial calcification, indicating the presence of coronary artery disease. If the patient has associated symptoms, recommend management as per chest pain guidelines. If the patient is asymptomatic, consider reviewing modifiable cardiovascular risk factors and managing as per guidelines for primary prevention.
--- NOTE | 2022-08-25 20:40 | CT_ITS ---
PROCEDURE INFORMATION: Exam: CT Abdomen And Pelvis Without Contrast Exam date and time: 08/25/2022 9:19 PM Age: 71 years old Clinical indication: Fever; Additional info: Sepsis, pneumonia, fever, dyspnea, chest pain TECHNIQUE: Imaging protocol: Computed tomography of the abdomen and pelvis without contrast. Radiation optimization: All CT scans at this facility use at least one of these dose optimization techniques: automated exposure control; mA and/or kV adjustment per patient size (includes targeted exams where dose is matched to clinical indication); or iterative reconstruction. REPORTING DATA: Count of CT and Cardiac NM exams in prior 12 months: This patient has received 4 known CTs and 0 known cardiac nuclear medicine studies in the 12 months prior to the current study. COMPARISON: CT ABDOMEN PELVIS WO CON 02/13/2023 22:33 FINDINGS: Tubes, catheters and devices: Urinary bladder is catheterized. Liver: Low attenuation hepatic lesions measuring up to 1.6 cm in diameter are incompletely characterized, but are likely cysts. No followup imaging is recommended. Gallbladder and bile ducts: Gallbladder is absent. Pancreas: Mild pancreatic atrophy. Spleen: Normal. No splenomegaly. Adrenal glands: Normal. No mass. Kidneys and ureters: Low attenuation renal lesions measuring up to 5.6 cm in diameter are incompletely characterized, but are likely cysts. No followup imaging is warranted. Nonobstructing bilateral nephrolithiasis. Stomach and bowel: The right colon has been resected. [id number] left colon diverticulosis without diverticulitis. Appendix: No evidence of appendicitis. Intraperitoneal space: Unremarkable. No free air. No significant fluid collection. Vasculature: The arteries demonstrate mild atherosclerotic disease. Lymph nodes: Unremarkable. No enlarged lymph nodes. Urinary bladder: Unremarkable as visualized. Reproductive: Moderate to marked prostate enlargement. Bones/joints: The lumbar spine demonstrates mild degenerative changes at multiple levels. Soft tissues: Small fat containing anterior abdominal wall hernias. Other findings: Please see separate report for CT chest. IMPRESSION: 1. Urinary bladder is catheterized. Please exclude infection clinically. 2. Nonobstructing bilateral nephrolithiasis. 3. Moderate to marked prostate enlargement. Consider follow-up malignancy screening unless recently performed. COMMENTS: Consistent with the [employer]'s Incidental Findings Committee white paper (J Am Rupa Radiol 2018): Any incidental renal lesion less than 1 cm or classified as too small to characterize, or any incidental cystic renal lesion characterized as simple-appearing, is likely benign. No follow-up imaging is recommended for these lesions per consensus recommendations based on imaging criteria.
[2022-08-25 20:42] LABS: C-Reactive Protein 36.5 mg/L (0-4)
[2022-08-25 20:49] LABS: Appearance,Urine SL CLOUDY (Clear); Bilirubin,Urine Negative (Negative); Blood, Urine TRACE-I (Negative); Color,Urine YELLOW (Yellow); Glucose,Urine (UA) Negative (Negative); Ketones,Urine Negative (Negative); Leukocyte Esterase,Urine 2+ (Negative); Nitrate,Urine POSITIVE (Negative); Protein,Urine 1+ (Negative); Specific Gravity, Urine 1.015 (1.005-1.030); Urobilinogen,Urine 0.2 EU/dl (0.2)
[2022-08-25 20:55] LABS: Bacteria,Urine 1+ /lpf; RBC,Urine Occasional #/hpf (0-3)
[2022-08-25 20:55] LABS: Hypochromasia 2+; Lymphocytes % 11 % (10-50); Neutrophils % 89 % (42-76); Platelet Estimate Normal; Total Cells Counted 100
[2022-08-25 20:56] LABS: Procalcitonin 1.36 ng/mL (0.0-2.0)
[2022-08-25 21:05] LABS: Erythrocyte Sedimentation Rate 124 mm/hr (0-20)
--- NOTE | 2022-08-25 21:05 | PC.NURSE ---
Patient's GFR <30, so scans will be completed without. Spoke to Raysa in CT
--- NOTE | 2022-08-25 21:14 | HMH.EDSOB ---
Discharge Plan Disposition Patient Disposition: Admitted as Observation Condition: Good Clinical Impressions Clinical Impression: UTI (urinary tract infection) due to urinary indwelling Jason catheter, SIRS due to infectious process without acute organ dysfunction Discharge ED Provider: Dennise (ED)Shaquille Resp/SOB HPI General Chief Complaint: Shortness of Breath/Dyspnea Stated Complaint: CP Time Seen by Provider: 08/25/22 20:30 Mode of Arrival: EMS Source of Information: Patient, EMS and Medical Record Limitations: No Limitations Description of Symptoms (Recalled from ER Triage Doc. by RN): 71 M presents via EMS from [facility] for increased shortness of breath, hypoxia, and weakness that has worsened over the last two days. Patient states he hurts all over. History of Present Illness pt with fever and sob at [facility] and sent for eval - pt with dec po intake - MD Complaint: shortness of breath Onset (ago): day(s) Severity: moderate Known history of: COPD Related Data Home oxygen amount: none Home Medications Medication Instructions Recorded Confirmed amlodipine 10 mg tablet 10 mg PO DAILY High blood pressure 08/25/22 08/25/22 aspirin 81 mg chewable tablet 81 mg PO DAILY Heart health 08/25/22 08/25/22 atorvastatin 10 mg tablet 10 mg PO HS Cholesterol 08/25/22 08/25/22 cetirizine 10 mg tablet 10 mg PO DAILY Allergy symptoms 08/25/22 08/25/22 ferrous sulfate 325 mg (65 mg 325 mg PO DAILY Supplement 08/25/22 08/25/22 iron) tablet isosorbide mononitrate 30 mg 30 mg PO DAILY Heart failure 08/25/22 08/25/22 tablet,extended release 24 hr metoprolol succinate 200 mg 200 mg PO DAILY Heart rhythm 08/25/22 08/25/22 tablet,extended release 24 hr multivitamin 1 tab PO DAILY Supplement 08/25/22 08/25/22 omeprazole 20 mg capsule,delayed 20 mg PO DAILY Acid reflux 08/25/22 08/25/22 release oxcarbazepine 300 mg tablet 300 mg PO BID Seizure 08/25/22 08/25/22 tamsulosin 0.4 mg capsule 0.4 mg PO HS Urinary retention 08/25/22 08/25/22 timolol maleate 0.5 % eye drops 1 drp Eye-Both DAILY Glaucoma 08/25/22 08/25/22 triamterene 37.5 1 tab PO DAILY High blood pressure 08/25/22 08/25/22 mg-hydrochlorothiazide 25 mg tablet umeclidinium 62.5 mcg-vilanterol 1 inh inhalation DAILY Breathing 08/25/22 08/25/22 25 mcg/actuation powdr for problems inhalation (Anoro Ellipta) Allergies Allergy/AdvReac Type Severity Reaction Status Date / Time No Known Allergies Allergy Verified 07/15/22 10:11 [facility] Disclaimer: The information contained in this section may have been updated after the patient was seen, as this information can be updated by other users. Medical History Atypical pneumonia Blind Chronic renal failure, stage 3 (moderate) Congestive heart failure CVA (cerebral vascular accident) Diastolic dysfunction Elevated left ventricular end-diastolic pressure (LVEDP) Gastroesophageal reflux Nodule of left lung Obesity (BMI 30.0-34.9) Overweight (BMI 25.0-29.9) Pulmonary emphysema Pulmonary HTN Stopped smoking with greater than 30 pack year history Visual impairment Surgical History History of colectomy History of colonoscopy History of ureteroscopy Family History Other Family history of cancer Social History Smoking Status: Former smoker alcohol intake: never substance use type: denies use current occupational status: disabled Travel in the last 8 weeks: None caregiver/support person: Yes household members: none housing: detention lives independently: No marital status: single current occupation: [employer] current occupational exposures/hazards: No caffeine: Yes special milad needs: No agree to transfusion: No do you feel safe at home: Yes victim of physi
--- NOTE | 2022-08-25 22:30 | PC.NURSE ---
Patient resting with even, unlabored breathing. NAD
[2022-08-25 22:49] LABS: Troponin I < 0.01 ng/ml (0.00-0.034)
[2022-08-26] VITALS (16 sets, daily range): BP systolic 103–174; BP diastolic 53–98; PULSE 60–92; RESP 20–26; TEMP 36.6–38.9; O2SAT 90–98; BMI 31.5
--- NOTE | 2022-08-26 00:41 | PC.NURSE ---
Registration notified of admission. Pt assigned to room 205 for UTI. Admitted to hospitalist for obs.
--- NOTE | 2022-08-26 00:57 | EXP.HP ---
History of Present Illness *Admission Date: 08/26/22 *Reason for visit:: Shortness of air *History of present illness: Mr. Toussaint is a 71-year-old male with a past medical history of Left Lung Nodule, CKD, CHF with diastolic dysfunction, HTN and visual impairment, he is a resident of a local [place]. He presents today from the [facility] due to shortness of air and progressive weakness over a 2-day period. The patient was seen in the ER on admission, he reports vomiting at the [facility] today. He reports chest discomfort, chills and not feeling well. In the ER, the patient underwent a CT of the chest that showed an enlarging left upper lobe mass, COVID and Flu testing were negative. CT of the abdomen and pelvis showed an enlarged prostate. CBC showed a slightly elevated WBC at 12.7, CMP showed a creatinine of 2.40, the patient's most recent baseline has been between 2.60-3.00. Urinalysis showed leukoesterase and was nitrate positive. The patient had a temperature of 100.9, RR documented at 31, WBC was 12.7, with concern for UTI the patient was admitted due to concern for UTI and Sepsis. Cultures were drawn in the ER and the patient received Rocephin in the ER. [facility] Disclaimer: The information contained in this section may have been updated after the patient was seen, as this information can be updated by other users. Medical History (Updated 08/26/22 @ 10:17 by Cayetano Cannon MD) Acute respiratory failure with hypoxia Atypical pneumonia Blind Chronic renal failure, stage 3 (moderate) Congestive heart failure CVA (cerebral vascular accident) Diastolic dysfunction Elevated left ventricular end-diastolic pressure (LVEDP) Gastroesophageal reflux Nodule of left lung Obesity (BMI 30.0-34.9) Overweight (BMI 25.0-29.9) Pulmonary emphysema Pulmonary HTN Stopped smoking with greater than 30 pack year history Visual impairment Surgical History History of colectomy History of colonoscopy History of ureteroscopy Family History Other Family history of cancer Social History (Updated 08/26/22 @ 01:56 by Nicole Steinberg RN) Smoking Status: Former smoker alcohol intake: never substance use type: denies use current occupational status: disabled Travel in the last 8 weeks: None caregiver/support person: Yes household members: none housing: senior living lives independently: No marital status: single current occupation: [employer] current occupational exposures/hazards: No caffeine: Yes special milad needs: No agree to transfusion: No do you feel safe at home: Yes victim of physical abuse: No victim of emotional abuse: No victim of sexual abuse: No would you like helpful sources: No Review of Systems Review of Systems Review of systems:: pertinent systems reviewed and negative unless documented below Constitutional Constitutional: Reports body ache(s), Reports chills and Reports fever(s) Eyes Eyes: Reports system reviewed and no additional complaints, except as documented ENT Ears, Nose, Mouth, and Throat: Reports system reviewed and no additional complaints, except as documented *Cardiovascular Cardiovascular: Reports system reviewed and no additional complaints, except as documented and Reports dyspnea *Respiratory Respiratory: Reports cough and Reports dyspnea *Gastrointestinal Gastrointestinal: Reports system reviewed and no additional complaints, except as documented *Genitourinary Genitourinary: Reports system reviewed and no additional complaints, except as documented *Musculoskeletal Musculoskeletal: Reports system reviewed and no additional complaints, except as documented Integumentary/Breasts Skin/Breast: Reports system reviewed and no additional complaints, except as documented *Neurologic Neurologic: Reports system reviewed and no additional complaints, except as documented Psychiatric P
--- NOTE | 2022-08-26 01:03 | PC.NURSE ---
Pt arrived to floor via stretcher @ 1338
--- NOTE | 2022-08-26 01:16 | EXP.SEPSISRE ---
[facility] Tissue Perfusion Eval Sepsis Re-Evaluation Performed: Yes Date Performed: 08/26/22 Time Performed: 01:16
--- NOTE | 2022-08-26 01:41 | PC.NURSE ---
PT HAS AN ORAL TEMP OF 100.1 AT THIS TIME. PRN TYLENOL GIVEN TO DECREASE FEVER.
[2022-08-26 02:02] LABS: Troponin I < 0.01 ng/ml (0.00-0.034)
--- NOTE | 2022-08-26 02:24 | PC.NURSE ---
PT HAS CHRONIC FERNANDEZ IN PLACE AT TIME OF ADMISSION.
--- NOTE | 2022-08-26 04:14 | PC.NURSE ---
NO ACUTE CHANGES SINCE ARRIVING TO THE FLOOR. PT'S TEMPERATURE IS DOWN SLIGHTLY TO 99.9 AFTER PO TYLENOL. SEIZURE PADS IN PLACE ADÁN TO HX OF SEIZURES. REMAINS ON 2L NASAL CANNULA. LUNG SOUNDS ARE DIMINISHED. PT GET VERY SOB WITH EXERTION. OTHER VITAL SIGNS ARE STABLE. CALL BOLIVAR WITHIN REACH.
[2022-08-26 05:21] LABS: Troponin I 0.01 ng/ml (0.00-0.034)
--- NOTE | 2022-08-26 07:30 | HMH.PHAINT1 ---
Pharmacy Intervention Comments: MEDICATION RECONCILIATION COMPLETED USING EXTERNAL FILL HISTORY FROM OUTSIDE PHARMACY
[2022-08-26 08:06] LABS: Basophils % 0.1 % (0.1-2.0); Eosinophils # 0.2 K/mm3 (0.0-0.4); Hematocrit 31.8 % (42.0-52.0); Hemoglobin 9.7 g/dL (14.1-18.0); Lymphocytes # 0.8 K/mm3 (0.7-4.5); Lymphocytes % 5.6 % (10-50); Mean Corpuscular HGB Conc 30.6 g/dL (31.8-35.4); Mean Corpuscular Hemoglobin 26.6 pg (27.0-31.2); Mean Corpuscular Volume 86.8 fl (80-94); Mean Platelet Volume 9.3 fl (7.4-10.4); Monocytes # 0.9 K/mm3 (0.1-1.0); Monocytes % 6.2 % (1.7-9.3); Neutrophils # 13.1 K/mm3 (1.8-7.8); Neutrophils % 87.1 % (37.0-80.0); Platelet Count 310 K/mm3 (142-424); Red Blood Count 3.66 M/mm3 (4.60-6.20); Red Cell Distribution Width 16.8 % (11.5-17.5)
--- NOTE | 2022-08-26 08:15 | SW/DCPLANNER ---
Addendum entered by Raysa Blanca 08/27/22 10:37: I have updated Danielle jiménez/ Axel Gustafson that this patient will return today. Original Note: This patient currently resides at [facility] level of care. I will continue to follow up with Danielle at [place] during patient's admission. Discharge date is unknown at this time.
[2022-08-26 08:19] LABS: Chloride 108 mmol/L (98-107); Potassium 4.5 mmoL/L (3.5-5.1); Sodium 141 mmol/L (136-145)
[2022-08-26 08:22] LABS: Alanine Aminotransferase 18 U/L (12-78); Albumin Level 3.4 g/dl (3.5-5.0); Alkaline Phosphatase 54 U/L (38-126); Anion Gap 15.5 mEq/L (5-15); Aspartate Amino Transferase 24 U/L (17-59); Bilirubin,Total 0.2 mg/dl (0.2-1.3); Blood Urea Nitrogen 30 mg/dl (9-20); Carbon Dioxide 22 mmol/L (22.0-30.0); Creatinine Clearance Estimated 55 mL/min (50-200); Estimated Glomerular Filt Rate 33 ml/min (>60); GFR (African American) 40 ML/MIN (>60); Globulin 3.3 g/dL (1.3-3.2); Glucose 125 mg/dl (74-100); MANUAL DIFFERENTIAL MANUAL DIFFERENTIAL (MANUAL DIFF); Total Protein,Serum 6.7 g/dl (6.3-8.2)
--- NOTE | 2022-08-26 08:43 | PC.NURSE ---
pt did not tolerate breakfast very good,throwing up
--- NOTE | 2022-08-26 08:51 | PC.NURSE ---
Dr. Ramirez called for nausea medication after emesis times one. Also of patient temp of 102 this and Tylenol given.
--- NOTE | 2022-08-26 09:18 | EXP.PULM.CON ---
History of Present Illness History of present illness: Mr. Toussaint is a 71-year-old [place] [facility] resident greater than [id number] smoking history, history of colon cancer on Xeloda last received dose in March 2021 following in pulmonary clinic for left upper lobe not solid airspace density on his CT from June 2022 status post referral to navigational bronchoscopy , atypical pneumonia, emphysema presented to the hospital complaining of fevers chills and abdominal discomfort. [facility] Disclaimer: The information contained in this section may have been updated after the patient was seen, as this information can be updated by other users. Medical History (Updated 08/26/22 @ 10:17 by Cayetano Cannon MD) Acute respiratory failure with hypoxia Atypical pneumonia Blind Chronic renal failure, stage 3 (moderate) Congestive heart failure CVA (cerebral vascular accident) Diastolic dysfunction Elevated left ventricular end-diastolic pressure (LVEDP) Gastroesophageal reflux Nodule of left lung Obesity (BMI 30.0-34.9) Overweight (BMI 25.0-29.9) Pulmonary emphysema Pulmonary HTN Stopped smoking with greater than 30 pack year history Visual impairment Surgical History History of colectomy History of colonoscopy History of ureteroscopy Family History Other Family history of cancer Social History (Updated 08/26/22 @ 01:56 by Nicole Steinberg RN) Smoking Status: Former smoker alcohol intake: never substance use type: denies use current occupational status: disabled Travel in the last 8 weeks: None caregiver/support person: Yes household members: none housing: prison lives independently: No marital status: single current occupation: [employer] current occupational exposures/hazards: No caffeine: Yes special milad needs: No agree to transfusion: No do you feel safe at home: Yes victim of physical abuse: No victim of emotional abuse: No victim of sexual abuse: No would you like helpful sources: No Review of Systems Constitutional Constitutional: Reports anorexia, Reports body ache(s) and Reports fatigue Eyes Eyes: Denies eye discharge, Denies dry eyes, Denies irritation, Denies itchy eyes and Reports loss of vision ENT Ears, Nose, Mouth, and Throat: Denies epistaxis, Denies facial pain, Denies lip swelling and Denies throat swelling *Cardiovascular Cardiovascular: Reports dyspnea on exertion and Reports orthopnea *Respiratory Respiratory: Reports chest congestion, Reports cough, Reports dyspnea on exertion, Denies excessive phlegm production and Reports wheezing *Gastrointestinal Gastrointestinal: Reports abdominal pain, Denies belching, Denies cramping and Reports nausea *Musculoskeletal Musculoskeletal: Reports back pain, Reports myalgias and Reports other (No small joint swelling or Pain) *Neurologic Neurologic: Reports system reviewed and no additional complaints, except as documented and Reports loss of vision Psychiatric Psychiatric: Denies homicidal ideation and Denies suicidal ideation Endocrine Endocrine: Reports fatigue and Denies heat intolerance Hematologic/Lymphatic Hematologic/Lymphatic: Denies easy bleeding and Denies lymphadenopathy Allergic/Immunologic Allergic/Immunologic: Denies itchy eyes, Denies lip swelling, Denies throat swelling and Reports wheezing Pulmonology Exam Inpatient Vital signs and Labs for Last 24 Hours: Temp Pulse Resp BP Pulse Ox 102.0 F H 92 H 22 151/81 H 90 L 08/26/22 08:00 08/26/22 08:00 08/26/22 08:00 08/26/22 08:00 08/26/22 08:00 Laboratory Results - last 24 hr 08/25/22 20:03: WBC 12.7 H, RBC 3.96 L, Hgb 10.5 L, Hct 34.1 L, MCV 86.0, MCH 26.4 L, MCHC 30.7 L, RDW 16.4, Plt Count 317, MPV 8.1, Neut % (Auto) 86.8 H, Lymph % (Auto) 6.1 L, Cache % (Auto) 5.4, Eos % (Auto) 1.5, Baso % (Auto) 0.2, Neut # (Auto) 1
[2022-08-26 09:40] LABS: Lymphocytes % 4 % (10-50); Monocytes % 5 % (2-9); Neutrophils % 91 % (42-76); Platelet Estimate Normal; Total Cells Counted 100
[2022-08-26 09:41] LABS: Hypochromasia 1+
--- NOTE | 2022-08-26 10:18 | CA_ITS ---
FINAL REPORT CLINICAL HISTORY: Bilateral lower extremity edema, right leg pain COMPARISON: None FINDINGS: Color Doppler, duplex Doppler and compression sonography of the bilateral lower extremities was performed. There is no evidence of deep venous thrombosis from the level of the groin to the calf. The deep veins are patent and compressible. IMPRESSION: No evidence of deep venous thrombosis bilateral lower extremities. Reviewed, Interpreted and Dictated by Ger Andrews III, MD Transcribed by Sayra Bliss Authenticated and [facility]
--- NOTE | 2022-08-26 10:31 | PC.NURSE ---
COURTESY TECH NOTE; ROUNDED ON PT 0820, PT DENIED NEED FOR ASSISTANCE WITH RESTROOM. ASSISTED PT WITH BREAKFAST MEAL, TOLERATED POORLY, PT VOMITED AT THIS TIME, NURSE NOTIFIED. ASSISTED PRIMARY TECH WITH LINEN CHANGE, GOWN CHANGE, AND POSITIONING PT IN BED. BED ALARM ON, CALL LIGHT WITHIN REACH, NO FURTHER REQUESTS AT THIS TIME Yadira ECHEVARRIA, SRNA
[2022-08-27] VITALS (11 sets, daily range): BP systolic 112–138; BP diastolic 62–81; PULSE 60–82; RESP 16–20; TEMP 36.6–36.9; O2SAT 92–97; BMI 32.1
--- NOTE | 2022-08-27 04:45 | PC.NURSE ---
PATIENT IS BLIND AND [place]. SEES LIGHT ONLY. A/O X 4. COOPERATIVE. F/C PATENT AND INTACT TO BSD, URINE CLEAR YELLOW. DENIES PAIN OR DISCOMFORT. 02 AT 2LNC, [id number]%. NO RESP DISTRESS. SINUS RHYTHM/1 DEGREE AVB/BBB ON TELE.
[2022-08-27 06:26] LABS: Basophils % 0.1 % (0.1-2.0); Eosinophils % 0.1 % (0.1-12.0); Hematocrit 32.5 % (42.0-52.0); Hemoglobin 9.7 g/dL (14.1-18.0); Lymphocytes # 1.1 K/mm3 (0.7-4.5); Lymphocytes % 4.9 % (10-50); Mean Corpuscular Hemoglobin 26.1 pg (27.0-31.2); Mean Corpuscular Volume 87.3 fl (80-94); Mean Platelet Volume 8.2 fl (7.4-10.4); Monocytes # 1.2 K/mm3 (0.1-1.0); Monocytes % 5.7 % (1.7-9.3); Neutrophils # 19.3 K/mm3 (1.8-7.8); Neutrophils % 89.2 % (37.0-80.0); Platelet Count 288 K/mm3 (142-424); Red Blood Count 3.73 M/mm3 (4.60-6.20); Red Cell Distribution Width 16.4 % (11.5-17.5); White Blood Count 21.6 K/mm3 (4.8-10.8)
[2022-08-27 06:30] LABS: Chloride 105 mmol/L (98-107); Potassium 4.5 mmoL/L (3.5-5.1); Sodium 140 mmol/L (136-145)
[2022-08-27 06:31] LABS: MANUAL DIFFERENTIAL MANUAL DIFFERENTIAL (MANUAL DIFF)
[2022-08-27 06:32] LABS: Blood Urea Nitrogen 30 mg/dl (9-20); Creatinine Clearance Estimated 51 mL/min (50-200); Estimated Glomerular Filt Rate 29 ml/min (>60); GFR (African American) 36 ML/MIN (>60)
[2022-08-27 06:33] LABS: Alanine Aminotransferase 21 U/L (12-78); Albumin Level 3.7 g/dl (3.5-5.0); Alkaline Phosphatase 66 U/L (38-126); Anion Gap 15.5 mEq/L (5-15); Aspartate Amino Transferase 27 U/L (17-59); Bilirubin,Total 0.2 mg/dl (0.2-1.3); Calcium 8.3 mg/dl (8.4-10.2); Carbon Dioxide 24 mmol/L (22.0-30.0); Globulin 3.6 g/dL (1.3-3.2); Glucose 92 mg/dl (74-100); Magnesium 2.1 mg/dl (1.6-2.3); Total Protein,Serum 7.3 g/dl (6.3-8.2)
[2022-08-27 09:07] LABS: Hypochromasia 1+; Lymphocytes % 5 % (10-50); Monocytes % 6 % (2-9); Neutrophils % 89 % (42-76); Platelet Estimate Normal; Total Cells Counted 100
--- NOTE | 2022-08-27 09:07 | PC.NURSE ---
Pt. is 84% on RA.
--- NOTE | 2022-08-27 09:37 | EXP.PULM.PN ---
Subjective *Date: 08/27/22 *Time: 10:50 Interval history: No acute respiratory events overnight. Stable oxygen requirements. Patient denies any new respiratory complaints. Pulmonology Exam Inpatient Vital signs and Labs for Last 24 Hours: Temp Pulse Resp BP Pulse Ox 98.1 F 73 16 129/67 94 L 08/27/22 08:00 08/27/22 08:00 08/27/22 08:00 08/27/22 08:00 08/27/22 08:00 Laboratory Results - last 24 hr 08/25/22 20:05: Urine Color Yellow, Urine Appearance Sl cloudy, Urine pH 6.0, Ur Specific [place] 1.015, Urine Protein 1+, Urine Glucose (UA) Negative, Urine Ketones Negative, Urine Blood Trace-i, Urine Nitrate Positive, Urine Bilirubin Negative, Urine Urobilinogen 0.2, Ur Leukocyte Esterase 2+ A, Urine RBC Occasional, Urine WBC 5-10, Ur Squamous Epith Cells 3-5, Urine Bacteria 1+ 08/26/22 04:40: Total Counted 100, Neutrophils % (Manual) 91 H, Lymphocytes % (Manual) 4 L, Monocytes % (Manual) 5, Platelet Estimate Normal, Hypochromasia 1+ 08/27/22 05:45: WBC 21.6 H* D, RBC 3.73 L, Hgb 9.7 L, Hct 32.5 L, MCV 87.3, MCH 26.1 L, MCHC 30.0 L, RDW 16.4, Plt Count 288, MPV 8.2, Neut % (Auto) 89.2 H, Lymph % (Auto) 4.9 L, Wood % (Auto) 5.7, Eos % (Auto) 0.1, Baso % (Auto) 0.1, Neut # (Auto) 19.3 H, Lymph # (Auto) 1.1, Wood # (Auto) 1.2 H, Eos # (Auto) 0.0, Baso # (Auto) 0.0, Total Counted 100, Neutrophils % (Manual) 89 H, Lymphocytes % (Manual) 5 L, Monocytes % (Manual) 6, Platelet Estimate Normal, Hypochromasia 1+ 08/27/22 05:45: Sodium 140, Potassium 4.5, Chloride 105, Carbon Dioxide 24, Anion Gap 15.5 H, BUN 30 H, Creatinine 2.20 H, Estimated Creat Clear 51, Estimated GFR 29 L, Est GFR ( Amer) 36 L, Glucose 92, Calcium 8.3 L, Magnesium 2.1, Total Bilirubin 0.2, AST 27, ALT 21, Alkaline Phosphatase 66, Total Protein 7.3, Albumin 3.7, Globulin 3.6 H, Albumin/Globulin Ratio 1.0 L I & O for Labs for Last 24 Hours: Intake & Output 08/24/22 08/25/22 08/26/22 08/27/22 23:59 23:59 23:59 23:59 Intake Total 4260 / 4740 780 / 780 Output Total 4100 / 4100 1500 / 1500 Balance 160 / 640 -720 / -720 Weight 262 lb 9.6 oz 259 lb 264 lb 2 oz Microbiology Reports for the Last 24 Hours: Microbiology 08/25/22 20:05 Urine,Clean Catch Urine Culture - Preliminary Gram Negative Rods Constitutional: Present mild distress Head: Present normocephalic and atraumatic ENT: Present normal exam, normal oropharynx and mucous membranes moist Neck: Present normal inspection and full ROM Respiratory: Present respiratory distress, rhonchi and able to speak in complete sentences; Absent wheezes or diminished air movement Cardiac: Present S1/S2, Tachycardia and radial pulses present GI: Present soft and distention; Absent tenderness or guarding Skin: Present intact; Absent cyanosis or jaundice Neuro: Present alert, awake and oriented x 3 Extremities: Present normal inspection; Absent clubbing or cyanosis Psychiatric: Present normal affect and cooperative Assessment and Plan *Assessment and plan (1) Acute respiratory failure with hypoxia: Status: Acute Category: Medical Code(s): J96.01 - Acute respiratory failure with hypoxia (2) Pulmonary emphysema: Status: Acute Category: Medical Code(s): J43.9 - Emphysema, unspecified (3) Nodule of left lung: Status: Acute Category: Medical Code(s): R91.1 - Solitary pulmonary nodule (4) Atypical pneumonia: Status: Acute Category: Medical Code(s): J18.9 - Pneumonia, unspecified organism Plan Mr. Toussaint is a 71-year-old [place] [facility] resident greater than [id number] smoking history, history of colon cancer on Xeloda last received dose in March 2021 following in pulmonary clinic for left upper lobe not solid airspace density on his CT from June 2022 status post referral to navigational bronchoscopy , atypical pneumonia, emphysema presented to the hospital complaining of fevers chills
--- NOTE | 2022-08-27 09:59 | PC.NURSE ---
COURTESY TECH NOTE; ROUNDED ON PT 0815, PT ATE BREAKFAST TRAY INDEPENDENTLY, TOLERATED WELL. DRINK BROUGHT AT PT REQUEST, ASSISTED PT WITH TV, PT DENIED NEED FOR ASSISTANCE WITH RESTROOM, AND NEED TO REPOSITION. CALL LIGHT WITHIN REACH, NO FURTHER REQUESTS AT THIS TIME DORIE SWEENEY
--- NOTE | 2022-08-27 10:37 | EXP.DC.SUM ---
General Admission date:: 08/26/22 Discharge date: 08/27/22 HPI HPI HPI: Mr. Toussaint is a 71-year-old male with a past medical history of Left Lung Nodule, CKD, CHF with diastolic dysfunction, HTN and visual impairment, he is a resident of a local [place].? He presents today from the [place] due to shortness of air and progressive weakness over a 2-day period.? The patient was seen in the ER on admission, he reports vomiting at the [place] today.? He reports chest discomfort, chills and not feeling well.? In the ER, the patient underwent a CT of the chest that showed an enlarging left upper lobe mass, COVID and Flu testing were negative.? CT of the abdomen and pelvis showed an enlarged prostate.? CBC showed a slightly elevated WBC at 12.7, CMP showed a creatinine of 2.40, the patient's most recent baseline has been between 2.60-3.00.? Urinalysis showed leukoesterase and was nitrate positive.? The patient had a temperature of 100.9, RR documented at 31, WBC was 12.7, with concern for UTI the patient was admitted due to concern for UTI and Sepsis.? Cultures were drawn in the ER and the patient received Rocephin in the ER.? Hospital Course Hospital Course Hospital Course: 71-year-old male with past medical history of Lung Nodule, CKD, CHF, HTN, visual impairment presents from [place] due to 2-day history of weakness, shortness of air, chills, body aches. Has responded well to antibiotics. Transition oral medications for discharge back to nursing facility. Patient's only other complaint is some epigastric pain that responds to Tylenol. We will also continue PPI. Problems addressed as follows: - Sepsis (POA) Sepsis criteria met on admission Temperature 100.9, RR 30's, WBC 12.7, suspected source urine. CT of his chest showing enlarging left upper lobe mass. Patient has follow-up with for guided bronchoscopy and biopsy in the coming week. Pulmonology was consulted during hospitalization, recommend continuing prednisone at discharge and Levaquin for urinary source but also to cover for respiratory source of infection. Blood cultures remain negative at discharge. Flu and COVID were negative. - UTI Urinalysis with positive leukoesterase, nitrate positive. Urine culture growing gram-negative rods. Previously has been positive for Klebsiella. Sensitive to cephalosporins and fluoroquinolones. Continue levofloxacin renally dosed. Will complete 7 days total of antibiotics. - Hypertension: Continue home regime? Metoprolol, Isosorbide, Amlodipine - CKD: Baseline approximately 2.0. 2.4 on admission. 2.2 on day of discharge. Continue to encourage p.o. intake. Caution with nephrotoxins. Renally dose medications as needed. Stable for discharge back to nursing facility for long-term care and continued treatment. Recommend repeat BMP in 1 week to monitor kidney function and electrolytes. Exam Data for Last 24 hours Vital signs and Labs for Last 24 Hours: Temp Pulse Resp BP Pulse Ox 98.1 F 73 16 129/67 94 L 08/27/22 08:00 08/27/22 08:00 08/27/22 08:00 08/27/22 08:00 08/27/22 08:00 Laboratory Results - last 24 hr 08/25/22 20:05: Urine Color Yellow, Urine Appearance Sl cloudy, Urine pH 6.0, Ur Specific [place] 1.015, Urine Protein 1+, Urine Glucose (UA) Negative, Urine Ketones Negative, Urine Blood Trace-i, Urine Nitrate Positive, Urine Bilirubin Negative, Urine Urobilinogen 0.2, Ur Leukocyte Esterase 2+ A, Urine RBC Occasional, Urine WBC 5-10, Ur Squamous Epith Cells 3-5, Urine Bacteria 1+ 08/27/22 05:45: WBC 21.6 H* D, RBC 3.73 L, Hgb 9.7 L, Hct 32.5 L, MCV 87.3, MCH 26.1 L, MCHC 30.0 L, RDW 16.4, Plt Count 288, MPV 8.2, Neut % (Auto) 89.2 H, Lymph % (Auto) 4.9 L, Row[place] % (Auto) 5.7, Eos % (Auto) 0.1, Baso % (Auto) 0.1, Neut # (Auto) 19.3 H, Lymph # (Auto) 1.1, Rowan # (Auto) 1.2 H, Eos # (Auto) 0.0, Baso # (Auto) 0.0, Total Counted 100, Neutrophils % (Manual) 89 H, Lymphocytes % (Manual) 5 L, Monocytes % (Manual) 6, Platelet Estimate Normal, Hypochromasi
--- NOTE | 2022-08-27 14:32 | PC.NURSE ---
COURTESY TECH NOTE; ROUNDED ON PT 1215, PT SLEEPING AT THIS TIME. CALL LIGHT WITHIN REACH, NO FURTHER REQUESTS. K SWATHI, SRNA
--- NOTE | 2022-08-27 15:48 | PC.NURSE ---
Report called to [facility] at [facility].
== END 2022-08-27 16:20 | DRG 698 ==
LOC: ER 08-26 00:41 → 2ND 08-26 00:49
PROVIDERS: Admitting Provider Internal Medicine Adolescent Medicine; Emergency Provider Emergency Medicine; PCP Emergency Medicine; Visit Provider Internal Medicine Adolescent Medicine
DX: A41.9 Sepsis, unspecified organism (principal); T83.511A Infection and inflammatory reaction due to indwelling urethral catheter, initial encounter; J18.9 Pneumonia, unspecified organism; J96.01 Acute respiratory failure with hypoxia; I13.0 Hypertensive heart and chronic kidney disease with heart failure and stage 1 through stage 4 chronic kidney disease, or unspecified chronic kidney disease; I50.20 Unspecified systolic (congestive) heart failure; N39.0 Urinary tract infection, site not specified; N18.30 Chronic kidney disease, stage 3 unspecified; Z86.73 Personal history of transient ischemic attack (TIA), and cerebral infarction without residual deficits; E66.9 Obesity, unspecified; J43.9 Emphysema, unspecified; I27.20 Pulmonary hypertension, unspecified; Z87.891 Personal history of nicotine dependence; K21.9 Gastro-esophageal reflux disease without esophagitis; Z85.038 Personal history of other malignant neoplasm of large intestine; R91.8 Other nonspecific abnormal finding of lung field; Z68.32 Body mass index [BMI] 32.0-32.9, adult
CPT/HCPCS: 36415; 71045; 71250; 74176; 80053; 81001; 83605; 83735; 84145; 84484; 85007; 85025; 85610; 85651; 85730; 86140; 87040; 87086; 87088; 87186; 87636; 93005; 93970; 94640; 94761; 99285; C9803; J0131; J0696; J1956; J2405; U0003; U0005

== ENCOUNTER → 2022-09-02 09:58 | Outpatient (CLI) | payer MEDICARE, MEDICAID, SELFPAY ==
--- NOTE | 2022-09-02 10:56 | PC.NURSE ---
PT UNABLE TO DO PFT, PT COMPLETED 6MW.
== END ==
PROVIDERS: PCP Emergency Medicine; Visit Provider Internal Medicine Pulmonary Disease
DX: R06.02 Shortness of breath (principal)
CPT/HCPCS: 94618

== ENCOUNTER → 2022-10-29 08:22 | Outpatient (CLI) | payer MEDICARE, MEDICAID, SELFPAY ==
--- NOTE | 2022-10-29 08:26 | CT_ITS ---
FINAL REPORT CLINICAL HISTORY: COLON CANCER COMPARISON: 08/26/2022 FINDINGS: Axial CT images of the abdomen and pelvis were obtained without intravenous contrast. Coronal reformatted images were also obtained.This study was performed with techniques to keep radiation doses as low as reasonably achievable (ALARA). Individualized dose reduction techniques using automated exposure control or adjustment of mA and/or kV according to the patient's size were employed. Abdomen: Severe left coronary artery calcifications are noted in the lower chest. There is mild bibasilar atelectasis present. There are multiple bilateral renal lobe densities, likely cysts, and renal stones. The largest renal stone on the right side measures 9 mm, the largest on the left measures 11 mm, which is stable when compared to the prior CT of 08/25/2022. No hydronephrosis is seen. There are multiple small low-attenuation hepatic masses, that may represent cysts, which are also stable since the prior CT. A small hiatal hernia is again noted. The gallbladder is not identified, suggesting a prior cholecystectomy. The spleen and pancreas have an unremarkable, unenhanced appearance. No mass or adenopathy is seen. No inflammatory process is identified. There are both supra and periumbilical hernias, the supraumbilical hernia containing fat only. The periumbilical hernias, of which there are two, show one of the hernia sacs contains only fat, while the other contains a nonobstructed loop of small bowel. The small hernia sac with the nonobstructive bowel is new since the prior CT. Pelvis: Images of the pelvis reveal no evidence of ureteral dilation or ureteral stone. The prostate is enlarged, and the bladder wall is thickened with a Jason catheter in place, likely inflammatory. There are small bilateral inguinal hernias containing fat. The patient has undergone a right hemicolectomy. Sigmoid diverticulosis is present. IMPRESSION: Multiple small low-attenuation hepatic masses, most likely cysts, stable. Multiple bilateral renal presumed cysts and stones, as described, also stable. Small abdominal wall hernias, supraumbilical and periumbilical, as described above. One of the periumbilical hernias now contains a small bowel loop, new since the prior CT. Reviewed, Interpreted and Dictated by Ger Andrews III, MD Transcribed by Danisha Manzanares Authenticated and [facility]
== END ==
PROVIDERS: PCP Emergency Medicine; Visit Provider Internal Medicine Medical Oncology
DX: C18.9 Malignant neoplasm of colon, unspecified (principal); C34.90 Malignant neoplasm of unspecified part of unspecified bronchus or lung
CPT/HCPCS: 74176

== ENCOUNTER → 2023-01-13 07:21 | Outpatient (CLI) | payer MEDICARE, MEDICAID, SELFPAY ==
--- NOTE | 2023-01-13 08:02 | NM_ITS ---
APPROVED REPORT Exam: Nuclear Stress Test Indication: chest pain..soa Patient Location: Outpatient Stress Tech: Melanie Sharp AR Tech:MELLY Barreto RT(R)(N) Ht: 6 ft 4 in Wt: 236 lbs HR: 66 bpm BP: 185/88 mmHg BSA: 2.38 m2 TID: 0.99 BMI: 28.7 History: chest pain..soa Procedure: Patient received 0.4 mg of intravenous Lexiscan, resting heart rate 66 bpm, resting blood pressure 185/88 mmHg, with Lexiscan maximum heart rate achieved was 77 bpm which is 85 % of the maximum predicted heart rate and blood pressure was 185/88 mmHg. With Lexiscan, patient denied any complaint of chest pain. The patient was not able to lay on his abdomen for prone images. Cardiac Stress and Resting SPECT Images: Cardiac Stress and Resting SPECT images were obtained using technetium 99m Myoview 32.9 mCi stress and 10.98 mCi at rest. The patient could not lie on his abdomen. Therefore, prone stress imaging could not be performed. This may affect the diagnostic interpretation of the study findings. Resting and stress imaging in supine position demonstrate medium sized, moderate, fixed perfusion defect in the basal to mid inferior LV wall. Gated imaging demonstrates normal global LV systolic function. There is mild hypokinesis of the basal inferior LV wall. LVEF is calculated at 60%. Conclusion: Medium sized, moderate, fixed perfusion defect in the basal to mid inferior LV wall. No evidence of reversible ischemia. Gated imaging demonstrates normal global LV systolic function. There is mild hypokinesis of the basal inferior LV wall. LVEF is calculated at 60%. Electronically signed by : Leigh Rosen MD 01/17/2023 13:15:40
--- NOTE | 2023-01-13 09:57 | CA_ITS ---
APPROVED REPORT Exam: Pharmacologic Technologist: Melanie Pascal, Ht: 6 ft 4 in Wt: 265 lbs BSA: 2.50 m2 HR: 65 bpm BP: 185/55 mmHg Rhythm: NSR Medical History Medications: Amlodipine,,,,, Omeprazole,,,,, Aspirin,,,,, Ferrous sulfate,,,,, Atorvastatin,,,,, SyMBICORT,,,,, TAMSULOSIN,,,,, Albuterol,,,,, GaVISCON,,,,, Zofran,,,,, CetIRIZINE,,,,, Multivitamin,,,,, Stress Test Details Test: LEXISCAN Reason for pharmacologic stress test: physical limitation. HR Resting HR: 66 bpm Max Heart Rate (APMHR): 146 bpm Max HR Achieved: 77 bpm Target HR (85% APMHR): 124 bpm % of APMHR: 53 Recovery HR: 69 bpm BP Resting BP: 185.0/88.0 mmHg Max BP: 185.0/88.0 mmHg Recovery BP: 155.0/81.0 mmHg ECG Resting ECG: NSR Stress ECG: No significant ST changes Arrhythmia: PVCs Clinical Exercise duration: 04:00 min Highest Stage Achieved: Stress ECG Conclusion Symptoms: SOA, nausea. No CP. Arrhythmias/Ectopy: None. ST-T Changes: No significant ST changes. Conclusion: Unremarkable Lexiscan stress. Myoview images reported separately. Test Summary REST . . . . . . . Resting REST 05:15 . . 66 . 185/ 88 . . Stage 1 . . . . . . . Myoview Injected Stage 1 01:00 . . 71 . . . . Stage 2 01:00 . . 73 . . . . Stage 3 01:00 . . 73 . 151/ 75 . . Stage 4 01:00 . . 71 . 129/ 78 . Stop exercise at 04:00 RECOVERY 01:00 . . 72 . . . . RECOVERY 02:00 . . 72 . . . . RECOVERY 03:00 . . 70 . . . . RECOVERY 04:00 . . 74 . 151/ 72 . . RECOVERY 05:00 . . 70 . 151/ 72 . . RECOVERY 06:00 . . 70 . 151/ 72 . . RECOVERY 07:00 . . 69 . 155/ 81 . . RECOVERY 07:17 . . 72 . 155/ 81 . . Electronically signed by : Leigh Rosen MD 01/17/2023 13:13:24
== END ==
PROVIDERS: PCP Emergency Medicine; Visit Provider Physician Assistant
DX: C34.90 Malignant neoplasm of unspecified part of unspecified bronchus or lung (principal); I11.9 Hypertensive heart disease without heart failure; I20.89 Other forms of angina pectoris; I27.20 Pulmonary hypertension, unspecified; I48.0 Paroxysmal atrial fibrillation; R06.09 Other forms of dyspnea
CPT/HCPCS: 78452; 93017; 93018; A9502; J2785

== ENCOUNTER → 2023-02-14 12:34 | Outpatient (CLI) | payer MEDICARE, MEDICAID, SELFPAY ==
--- NOTE | 2023-02-14 12:39 | CT_ITS ---
FINAL REPORT CLINICAL HISTORY: COLON CANCER COMPARISON: 10/29/2022 FINDINGS: Axial CT images of the abdomen and pelvis were obtained without intravenous contrast. Coronal and sagittal reformatted images were also obtained.This study was performed with techniques to keep radiation doses as low as reasonably achievable (ALARA). Individualized dose reduction techniques using automated exposure control or adjustment of mA and/or kV according to the patient's size were employed. Abdomen:The lung bases are clear. There is no evidence of renal stone or hydronephrosis. There are multiple renal cysts as well as renal stones, that are stable since the prior exam. There are multiple small low-attenuation foci in the liver, likely hepatic cysts, that are stable since the prior CT examination. The spleen and pancreas have an unremarkable, unenhanced appearance. No mass or adenopathy is seen. No inflammatory process is identified. A prior right hemicolectomy has been performed. Pelvis: Images of the pelvis reveal no evidence of ureteral dilation or ureteral stone. There are 2 umbilical hernias, the more inferior hernia contains nonobstructed small bowel loop, as noted on the prior exam. There is a Jason catheter in the bladder, with bladder wall thickening present, likely inflammatory. Bilateral inguinal hernias are present also containing fat. There is a right L5 pars defect present in the spine. No mass or abnormal fluid collection is identified. IMPRESSION: Multiple small low-attenuation foci in the liver, likely cysts, stable. Multiple renal cysts and stones are again noted, also stable. 2 umbilical hernias are present as well as bilateral inguinal hernias, unchanged. Jason catheter is present in the bladder with bladder wall thickening, likely inflammatory as well. Reviewed, Interpreted and Dictated by Ger Andrews III, MD Transcribed by Danisha Manzanares Authenticated and [facility]
--- NOTE | 2023-02-14 12:44 | CT_ITS ---
FINAL REPORT TECHNIQUE: Axial images were obtained from the lung apex to the mid abdomen by computed tomography. Coronal and sagittal reformatted images were obtained. This study was performed with techniques to keep radiation doses as low as reasonably achievable, (ALARA). Individualized dose reduction techniques using automated exposure control or adjustment of mA and/or kV according to the patient's size were employed. CLINICAL HISTORY: COLON CANCER COMPARISON: 07/08/2022 FINDINGS: There is no axillary adenopathy. There is mild mediastinal adenopathy present, stable since the prior CT examination. Severe coronary artery calcifications are again identified. Mild changes of emphysema and mild scarring is noted bilaterally. Heart size is normal. There is no pericardial or pleural effusion. There is a posterior left upper lobe opacity present, measuring 36 mm in size as opposed to 37 mm on the prior exam, stable. Immediately inferior to this opacity is a 17 mm opacity, also stable since the prior CT examination. Mild atelectasis is present in the lung bases. There are multiple chronic right rib fractures present. IMPRESSION: Persistent left upper lobe soft tissue opacities, of uncertain etiology. These may represent neoplasm versus chronic inflammatory change. No new masses or nodules are identified. Reviewed, Interpreted and Dictated by Ger Andrews III, MD Transcribed by Danisha Manzanares Authenticated and [facility]
== END ==
PROVIDERS: PCP Internal Medicine; Visit Provider Internal Medicine Medical Oncology
DX: C18.9 Malignant neoplasm of colon, unspecified (principal)
CPT/HCPCS: 71250; 74176

== ENCOUNTER 2023-05-25 07:12 | Outpatient (CLI) | payer MEDICARE, MEDICAID, SELFPAY ==
--- NOTE | 2023-05-25 07:16 | CT_ITS ---
FINAL REPORT TECHNIQUE: Axial CT images were performed from the lung apices through the upper abdomen. Coronal reformats were submitted. This study was performed with techniques to keep radiation doses as low as reasonably achievable (ALARA). Individualized dose reduction techniques using automated exposure control or adjustment of mA and/or kV according to the patient's size were employed. CLINICAL HISTORY: LUNG CANCER 3 month f/u COMPARISON: 02/14/2023 FINDINGS: There is no axillary adenopathy. There are multiple borderline size mediastinal nodes which are stable. There is severe coronary artery calcification. The heart is enlarged. There is no pericardial or pleural effusion. 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 There is mild bibasilar atelectasis. Multiple chronic right rib fractures are identified. Limited images of the upper abdomen reveal several low-attenuation foci in the liver, may represent cysts. There are multiple bilateral renal cysts. There is a 7 mm nonobstructing right renal stone. 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 Recommend additional follow-up in 3-6 months. Hepatic and renal cysts. Nonobstructing right renal stone. Reviewed, Interpreted and Dictated by Ger Andrews III, MD Transcribed by Nati Funez Authenticated and . [facility]
[2023-05-25 11:13] LABS: Basophils % 0.7 % (0.1-2.0); Eosinophils # 0.4 K/mm3 (0.0-0.4); Eosinophils % 7.4 % (0.1-12.0); Hematocrit 34.1 % (42.0-52.0); Hemoglobin 10.5 g/dL (14.1-18.0); Lymphocytes # 0.9 K/mm3 (0.7-4.5); Lymphocytes % 18.6 % (10-50); Mean Corpuscular HGB Conc 30.7 g/dL (31.8-35.4); Mean Corpuscular Hemoglobin 28.9 pg (27.0-31.2); Mean Corpuscular Volume 94.1 fl (80-94); Mean Platelet Volume 8.7 fl (7.4-10.4); Monocytes # 0.4 K/mm3 (0.1-1.0); Monocytes % 9.4 % (1.7-9.3); Neutrophils % 63.9 % (37.0-80.0); Platelet Count 230 K/mm3 (142-424); Red Blood Count 3.63 M/mm3 (4.60-6.20); Red Cell Distribution Width 17.4 % (11.5-17.5); White Blood Count 4.7 K/mm3 (4.8-10.8)
[2023-05-25 12:15] LABS: Free T4 (Free Thyroxine) 0.77 ng/dl (0.78-2.19)
[2023-05-25 12:18] LABS: Alanine Aminotransferase 21 U/L (12-78); Albumin Level 4.2 g/dl (3.5-5.0); Alkaline Phosphatase 66 U/L (38-126); Anion Gap 12.5 mEq/L (5-15); Aspartate Amino Transferase 26 U/L (17-59); Bilirubin,Direct 0.3 mg/dl (0.0-0.4); Bilirubin,Total 0.3 mg/dl (0.2-1.3); Blood Urea Nitrogen 45 mg/dl (9-20); Calcium 9.2 mg/dl (8.4-10.2); Carbon Dioxide 28 mmol/L (22.0-30.0); Chloride 104 mmol/L (98-107); Chol/HDL Ratio 3.6 (1-3.5); Cholesterol 103 mg/dl (140-200); Estimated Glomerular Filt Rate 27 ml/min (>60); GFR (African American) 32 ML/MIN (>60); Glucose 77 mg/dl (74-100); HDL Cholesterol 29 mg/dl (40-60); Potassium 4.5 mmoL/L (3.5-5.1); Sodium 140 mmol/L (136-145); Total Protein,Serum 7.2 g/dl (6.3-8.2); Triglycerides 112 mg/dl (30-150); VLDL Cholesterol 22 mg/dL (0-40)
[2023-05-25 12:29] LABS: Direct LDL Cholesterol 51.18 mg/dL (100-129)
[2023-05-25 12:49] LABS: Thyroid Stimulating Hormone 1.35 uIU/mL (0.465-4.68)
== END 2023-05-25 23:59 ==
PROVIDERS: PCP Internal Medicine; Visit Provider Internal Medicine Medical Oncology
DX: E11.9 Type 2 diabetes mellitus without complications (principal); N18.4 Chronic kidney disease, stage 4 (severe); I48.91 Unspecified atrial fibrillation; E66.9 Obesity, unspecified; I11.9 Hypertensive heart disease without heart failure; C34.90 Malignant neoplasm of unspecified part of unspecified bronchus or lung; I25.10 Atherosclerotic heart disease of native coronary artery without angina pectoris; R06.00 Dyspnea, unspecified; I63.9 Cerebral infarction, unspecified; Z68.32 Body mass index [BMI] 32.0-32.9, adult; Z79.899 Other long term (current) drug therapy
CPT/HCPCS: 36415; 71250; 80048; 80061; 80076; 84439; 84443; 85025

== ENCOUNTER 2023-06-01 09:36 | Outpatient (CLI) | payer MEDICARE, MEDICAID, SELFPAY ==
[2023-06-01 10:09] LABS: Basophils % 0.5 % (0.1-2.0); Eosinophils # 0.3 K/mm3 (0.0-0.4); Eosinophils % 4.5 % (0.1-12.0); Hematocrit 33.8 % (42.0-52.0); Hemoglobin 10.2 g/dL (14.1-18.0); Lymphocytes # 0.7 K/mm3 (0.7-4.5); Lymphocytes % 9.9 % (10-50); Mean Corpuscular HGB Conc 30.2 g/dL (31.8-35.4); Mean Corpuscular Hemoglobin 28.8 pg (27.0-31.2); Mean Corpuscular Volume 95.5 fl (80-94); Mean Platelet Volume 8.7 fl (7.4-10.4); Monocytes # 0.5 K/mm3 (0.1-1.0); Monocytes % 6.3 % (1.7-9.3); Neutrophils # 5.8 K/mm3 (1.8-7.8); Neutrophils % 78.8 % (37.0-80.0); Platelet Count 245 K/mm3 (142-424); Red Blood Count 3.53 M/mm3 (4.60-6.20); Red Cell Distribution Width 17.8 % (11.5-17.5); White Blood Count 7.4 K/mm3 (4.8-10.8)
[2023-06-01 11:13] LABS: Chloride 107 mmol/L (98-107)
[2023-06-01 11:14] LABS: Potassium 4.4 mmoL/L (3.5-5.1); Sodium 139 mmol/L (136-145)
[2023-06-01 11:16] LABS: Alanine Aminotransferase 27 U/L (12-78); Alkaline Phosphatase 68 U/L (38-126); Anion Gap 13.4 mEq/L (5-15); Aspartate Amino Transferase 27 U/L (17-59); Bilirubin,Total 0.2 mg/dl (0.2-1.3); Blood Urea Nitrogen 44 mg/dl (9-20); Carbon Dioxide 23 mmol/L (22.0-30.0); Estimated Glomerular Filt Rate 28 ml/min (>60); GFR (African American) 34 ML/MIN (>60)
[2023-06-01 11:17] LABS: Albumin Level 3.7 g/dl (3.5-5.0); Albumin/Globulin Ratio 1.2 (1.1-1.8); Calcium 9.1 mg/dl (8.4-10.2); Globulin 3.1 g/dL (1.3-3.2); Glucose 148 mg/dl (74-100); Total Protein,Serum 6.8 g/dl (6.3-8.2)
[2023-06-01 11:27] LABS: NT Pro Brain Natriuretic Pep. 935 pg/mL (0-125)
== END 2023-06-01 23:59 ==
LOC: LAB.DROPOF 09:38
PROVIDERS: PCP Internal Medicine; Visit Provider Internal Medicine
DX: C18.9 Malignant neoplasm of colon, unspecified (principal); I50.9 Heart failure, unspecified; R42 Dizziness and giddiness; Z79.899 Other long term (current) drug therapy
CPT/HCPCS: 80053; 83880; 85025

== ENCOUNTER 2023-06-09 09:41 | Emergency (ER) | payer MEDICARE, MEDICAID, SELFPAY ==
[2023-06-09] VITALS (14 sets, daily range): BP systolic 109–148; BP diastolic 63–86; PULSE 55–68; RESP 15–20; TEMP 36.6–36.7; O2SAT 87–97; BMI 28.7
--- NOTE | 2023-06-09 09:39 | ECG_ITS ---
APPROVED REPORT Exam: Resting ECG HR:61 bpm ECG Measurements Heart Rate 61 AXES VA 221 P 48 QRSd 113 QRS -44 QT 418 T 56 QTc 421 Conclusion SINUS RHYTHM WITH FIRST DEGREE AV BLOCK LEFT AXIS DEVIATION [QRS AXIS < -30] MODERATE INTRAVENTRICULAR CONDUCTION DELAY [110+ ms QRS DURATION] NONSPECIFIC ST & T-WAVE ABNORMALITY Electronically signed by : NORBERT WOODS, 06/09/2023 15:13:24
--- NOTE | 2023-06-09 09:49 | XR_ITS ---
FINAL REPORT CLINICAL HISTORY: chest pain COMPARISON: 08/25/2022 FINDINGS: SINGLE-VIEW CHEST There is mild cardiomegaly. The mediastinum is normal. The lungs are underinflated. There is increased bibasilar atelectasis. There is airspace opacity in the right mid lung, may be due to a small focus of pneumonia. There is no pneumothorax. IMPRESSION: Airspace opacity in the right mid lung, may be due to pneumonia. Reviewed, Interpreted and Dictated by Primitivo Rodriguez MD Transcribed by Nati Funez Authenticated and [facility]
--- NOTE | 2023-06-09 09:54 | HMH.EDCP ---
Discharge Plan Disposition Patient Disposition: Xfer [facility] Condition: Good Prescriptions Prescriptions: New doxycycline hyclate 100 mg tablet 100 mg PO BID 10 Days Qty: 20 0RF No Action loperamide 2 mg tablet 2 mg PO Q6H PRN Stiolto Respimat 2.5-2.5 mcg/actuation mist 2 puff inhalation DAILY 90 Days Qty: 4 2RF acetaminophen 500 mg capsule 500 mg PO Q4H PRN Gaviscon 95-358 mg/15 mL suspension 30 ml PO .q4 hours PRN albuterol sulfate [Ventolin HFA] 90 mcg/actuation HFA aerosol inhaler 1 inh inhalation Q4H PRN guaifenesin 100 mg/5 mL liquid 200 mg PO Q6H PRN (Reason: cough) Refresh P.M. 57.3-42.5 % ointment 1 applic Eye-Right HS Rx Instructions: Apply to lower right lid at bedtime budesonide-formoterol [Symbicort] 160-4.5 mcg/actuation HFA aerosol inhaler 2 puff inhalation BID timolol maleate 0.5 % drops 1 drp Eye-Both DAILY hydrocodone-acetaminophen 5-325 mg tablet 1 tab PO BID PRN (Reason: pain) Qty: 60 0RF multivitamin Tablet 1 tab PO DAILY cetirizine 10 mg Tablet 10 mg PO DAILY atorvastatin 10 mg tablet 10 mg PO HS metoprolol succinate 200 mg tablet extended release 24 hr 200 mg PO DAILY isosorbide mononitrate 30 mg tablet extended release 24 hr 30 mg PO DAILY oxcarbazepine 300 mg tablet 300 mg PO BID tamsulosin 0.4 mg capsule 0.4 mg PO HS ferrous sulfate 325 mg (65 mg iron) Tablet 325 mg PO DAILY triamterene-hydrochlorothiazid 37.5-25 mg tablet 1 tab PO DAILY Hold Instructions: Holding for now based on [place]. Consider resumption in a week after repeat labs. omeprazole 20 mg capsule,delayed release(DR/EC) 20 mg PO DAILY Referrals Follow up/Referrals: Provider,Referral, [Referring] - See instructions Activity Restrictions/Add. Instructions Additional Instructions/Restrictions: You were evaluated in the emergency department today. Please greens picker the prescription for antibiotics and take the full course as prescribed. Follow-up closely with your primary care provider and food service ambassador. Return to the emergency department for new or worsening symptoms. Clinical Impressions Clinical Impression: Chest pain, Pneumonia Instructions Patient Instructions: Pneumonia-Adult, DI for Atypical Chest Pain Discharge ED Provider: Pamela Judge HPI General Chief Complaint: Chest Pain Stated Complaint: cp Time Seen by Provider: 06/09/23 09:44 Mode of Arrival: Wheelchair Source of Information: Patient Limitations: No Limitations Description of Symptoms (Recalled from ER Triage Doc. by RN): Patient brought to ER from Dr Perez office due to reporting chest pain 10/10 throughout the night. Upon assessment patient states chest pain in left chest but has improved since last night. Patient states pain does not radiate and he is having some shortness of breath. History of Present Illness HPI narrative: This patient is a 72-year-old male with a history of COPD chronically on 2 L nasal cannula, pulmonary hypertension, CHF, CAD, prior CVA, blindness, CKD, lung cancer not on treatment, and chronic chest pain presenting to the emergency department from cardiology clinic for evaluation with concern for chest pain. Patient reports that all week, he has intermittently been having chest pain. He states that it is all across the left side of his chest, which is tender to palpation. He describes it as sharp and 10 out of 10. He notes that it seems to get worse whenever he sits up and moves around. He also states that he is felt short of breath, especially with exertion. He resides at [facility] and per staff there who is familiar with him, he chronically complains of chest pain. Related Data Home Medications Medication Instructions Recorded Confirmed atorvastatin 10 mg tablet 10 mg PO HS Cholesterol 08/25/22 06/09/23 cetirizine 10 mg tablet 10 mg PO DAILY Allergy symptoms 08/25/22 06/09/23 ferrous sulfate 325 mg (65 mg 325 mg PO DAILY Supplement 08/25/22 06/09/23 iron) tablet isosorbide mononitrate 30 mg 30 mg PO DAILY Heart failure 08/25/22 06/09/23 tablet,extended release 24 hr metoprolol succinate 200 mg 200 mg PO DAILY Heart rhythm 08/25/22 06/09/23 tablet,extended release 24 hr multivitamin 1 tab PO DAILY Supplement 08/25/22 06/09/23 omeprazole 20 mg capsule,delayed 20 mg PO DAILY Acid reflux 08/25/22 06/09/23 release oxcarbazepine 300 mg tablet 300 mg PO BID Seizure 08/25/22 06/09/23 tamsulosin 0.4 mg capsule 0.4 mg PO HS Urinary retention 08/25/22 06/09/23 triamterene 37.5 1 tab PO DAILY High blood pressure 08/25/22 06/09/23 mg-hydrochlorothiazide 25 mg tablet loperamide 2 mg tablet 2 mg PO Q6H PRN 12/30/22 06/09/23 acetaminophen 500 mg capsule 500 mg PO Q4H PRN 02/15/23 06/09/23 albuterol sulfate 90 mcg/actuation 1 inh inhalation Q4H PRN 02/15/23 06/09/23 aerosol inhaler (Ventolin HFA) aluminum hydrox-magnesium carb 95 30 ml PO .q4 hours PRN 02/15/23 06/09/23 mg-358 mg/15 mL oral suspension (Gaviscon) budesonide-formoterol HFA 160 2 puff inhalation BID 02/15/23 06/09/23 mcg-4.5 mcg/actuation aerosol inhaler (Symbicort) guaifenesin 100 mg/5 mL oral liquid 200 mg PO Q6H PRN cough 02/15/23 06/09/23 timolol maleate 0.5 % eye drops 1 drp Eye-Both DAILY Glaucoma 02/15/23 06/09/23 white petrolatum-mineral oil 57.3 1 applic Eye-Right HS 02/15/23 06/09/23 %-42.5 % eye ointment (Refresh P.M.) Previous Rx's Medication Instructions Recorded tiotropium 2.5 mcg-olodaterol 2.5 2 puff inhalation DAILY 90 days #4 11/26/22 mcg/actuation mist for inhalation grams (Stiolto Respimat) hydrocodone 5 mg-acetaminophen 325 1 tab PO BID PRN pain #60 tabs 06/07/23 mg tablet doxycycline hyclate 100 mg tablet 100 mg PO BID 10 days #20 tabs 06/09/23 Allergies Allergy/AdvReac Type Severity Reaction Status Date / Time No Known Allergies Allergy Verified 06/09/23 09:19 [facility] Disclaimer: The information contained in this section may have been updated after the patient was seen, as this information can be updated by other users. Medical History Urinary retention CKD (chronic kidney disease) UTI (urinary tract infection) due to urinary indwelling Jason catheter Atypical angina Acute respiratory failure with hypoxia Stopped smoking with greater than 30 pack year history Pulmonary emphysema Nodule of left lung Atypical pneumonia CVA (cerebral vascular accident) Blind Congestive heart failure Chronic renal failure, stage 3 (moderate) Renal stones Gastroesophageal reflux 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) Encephalomalacia CVA (cerebral vascular accident) Overweight (BMI 25.0-29.9) Obesity (BMI 30.0-34.9) Visual impairment Elevated left ventricular end-diastolic pressure (LVEDP) Diastolic dysfunction Pulmonary HTN Surgical History History of bronchoscopy History of ureteroscopy History of colonoscopy History of colectomy Family History Other Family history of cancer Social History Smoking Status: Former smoker tobacco type: cigarettes packs per day: 1 alcohol intake: never substance use type: denies use current occupational status: disabled Travel in the last 8 weeks: None caregiver/support person: Yes household members: none housing: [facility] lives independently: No marital status: single current occupation: [employer] current occupational exposures/hazards: No caffeine: Yes special milad needs: No agree to transfusion: No do you feel safe at home: Yes victim of physical abuse: No victim of emotional abuse: No victim of sexual abuse: No would you like helpful sources: No ROS Obtained: Yes All systems reviewed & no additional complaints except as documented Physical Exam General General appearance: alert, in no apparent distress and obese Head Head exam: atraumatic and normocephalic Eye Eye exam: Present normal appearance, PERRL and EOMI ENT ENT exam: Present normal exam, normal oropharynx, mucous membranes moist and normal external ear exam Neck Neck exam: Present normal inspection, full ROM and trachea midline; Absent tenderness Chest Chest inspection: Present symmetric chest wall rise and tenderness (Left chest wall tenderness to palpation. Patient reports that this is the same pain that he has been feeling.) Respiratory Respiratory exam: Present normal lung sounds bilaterally; Absent respiratory distress, wheezes, stridor or accessory muscle use Cardiovascular Cardiovascular exam: Present regular rate and normal rhythm Abdominal Exam Abdominal exam: Present soft; Absent distention, tenderness or guarding Extremities Exam Extremities exam: Present full ROM, normal capillary refill and edema (Bilateral lower extremity pitting edema); Absent tenderness Back Exam Back exam: Present normal inspection and full ROM; Absent tenderness Neurological Exam Neurological exam: Present alert, CN II-XII intact and normal gait; Absent motor sensory deficit Psychiatric Psychiatric exam: Present normal affect and normal mood Skin Skin exam: Present warm and dry HEART Score HEART Score HEART Score assessment performed?: Yes History (anamnesis): Slightly suspicious ECG: Non-specific disturbance Age: >65 years Risk factors: Atherosclerosis history Troponin: </= normal limit HEART Score: 5 Critical Care Critical Care Time Critical Care Time: No Medical Decision Making Medical Records Medical records reviewed: Yes I reviewed the patient's medical records. [place] Inquiry Pt receiving controlled substance: No Vital Signs Vital Signs: 06/09/23 09:42 06/09/23 09:50 06/09/23 09:52 Temperature 97.9 F Temperature Source Oral Pulse Rate 61 Pulse Rate [Right] 62 Respiratory Rate 20 Blood Pressure Blood Pressure [Right Arm] 140/77 Blood Pressure Mean Blood Pressure Mean [Right Arm] 98 Blood Pressure Source Blood Pressure Source [Right Arm] Automatic Cuff Blood Pressure Position 02 Sat by Pulse Oximetry 89 L 94 L Oxygen Delivery Method Room Air Nasal Cannula Oxygen Flow Rate (LPM) 2 06/09/23 10:00 06/09/23 10:31 06/09/23 11:01 Temperature Temperature Source Pulse Rate 60 61 68 Pulse Rate [Right] Respiratory Rate 18 18 19 Blood Pressure 109/63 L 125/76 126/73 Blood Pressure [Right Arm] Blood Pressure Mean 83 Blood Pressure Mean [Right Arm] Blood Pressure Source Blood Pressure Source [Right Arm] Blood Pressure Position 02 Sat by Pulse Oximetry 94 L 96 95 Oxygen Delivery Method Oxygen Flow Rate (LPM) 06/09/23 11:31 06/09/23 12:01 06/09/23 12:31 Temperature Temperature Source Pulse Rate 59 L 61 58 L Pulse Rate [Right] Respiratory Rate 18 18 18 Blood Pressure 125/76 138/71 148/81 H Blood Pressure [Right Arm] Blood Pressure Mean 92 93 103 Blood Pressure Mean [Right Arm] Blood Pressure Source Blood Pressure Source [Right Arm] Blood Pressure Position 02 Sat by Pulse Oximetry 87 L 95 Oxygen Delivery Method Oxygen Flow Rate (LPM) 06/09/23 13:00 06/09/23 13:31 06/09/23 14:01 Temperature Temperature Source Pulse Rate 59 L 59 L 56 L Pulse Rate [Right] Respiratory Rate 16 18 18 Blood Pressure 133/79 138/86 147/79 H Blood Pressure [Right Arm] Blood Pressure Mean 103 101 Blood Pressure Mean [Right Arm] Blood Pressure Source Blood Pressure Source [Right Arm] Blood Pressure Position 02 Sat by Pulse Oximetry 96 96 96 Oxygen Delivery Method Oxygen Flow Rate (LPM) 06/09/23 14:30 06/09/23 15:01 Temperature 98.0 F Temperature Source Oral Pulse Rate 55 L 55 L Pulse Rate [Right] Respiratory Rate 15 15 Blood Pressure 141/80 H 141/80 H Blood Pressure [Right Arm] Blood Pressure Mean Blood Pressure Mean [Right Arm] Blood Pressure Source Automatic Cuff Blood Pressure Source [Right Arm] Blood Pressure Position Sitting 02 Sat by Pulse Oximetry 97 Oxygen Delivery Method Nasal Cannula Oxygen Flow Rate (LPM) 2 Lab Data Labs: Lab Results 06/09/23 09:48: WBC 7.1, RBC 3.39 L, Hgb 9.8 L, Hct 31.6 L, MCV 93.2, MCH 29.0, MCHC 31.1 L, RDW 17.4, Plt Count 240, MPV 8.5, Neut % (Auto) 75.4, Lymph % (Auto) 11.3, Casey % (Auto) 6.2, Eos % (Auto) 6.7, Baso % (Auto) 0.5, Neut # (Auto) 5.3, Lymph # (Auto) 0.8, Casey # (Auto) 0.4, Eos # (Auto) 0.5 H, Baso # (Auto) 0.0, D-Dimer 1.65 H, Sodium 137, Potassium 4.3, Chloride 103, Carbon Dioxide 26, Anion Gap 12.3, BUN 41 H, Creatinine 2.50 H, Estimated Creat Clear 39, Estimated GFR 25 L, Est GFR ( Amer) 31 L, Glucose 123 H, Calcium 9.0, Total Bilirubin 0.2, AST 27, ALT 24, Alkaline Phosphatase 62, Troponin I < 0.01, NT-Pro-B Natriuret Pep 582 H, Total Protein 7.2, Albumin 3.8, Globulin 3.4 H, Albumin/Globulin Ratio 1.1, Lipase 57 06/09/23 09:53: VBG pH 7.37, VBG pCO2 40.9, VBG pO2 76.8 H, VBG HCO3 23.0, VBG Total CO2 24.3, VBG O2 Saturation 94.1 H, VBG Base Excess -2.3, VBG Lactic Acid 2.2 H 06/09/23 12:41: Troponin I < 0.01 06/09/23 09:48 06/09/23 09:48 Response Orders (Tests/Meds): ED MEDICATIONS Discontinued Medications Generic Name Dose Route Start Last Admin Trade Name Edwardq PRN Reason Stop Dose Admin Acetaminophen 1,000 mg 06/09/23 11:12 06/09/23 11:22 Acetaminophen 500mg Tab PO 06/09/23 11:13 1,000 mg ONCE ONE Administration Doxycycline Hyclate 100 mg 06/09/23 13:44 06/09/23 14:01 Doxycycline Hycl 100 Mg Tablet PO 06/09/23 13:45 100 mg ONCE ONE Administration Lactated Ringer's 500 mls @ 999 mls/hr 06/09/23 12:06 06/09/23 12:41 Lactated Ringer's 500ml IV 06/09/23 12:36 999 mls/hr .Q31M ONE Administration Iopamidol 70 ml 06/09/23 12:28 06/09/23 12:31 Iopamidol-370 (76%);100ml Bottle IV 06/09/23 12:29 70 ml ONCE ONE Administration Lidocaine 1 each 06/09/23 11:12 06/09/23 11:22 Lidocaine 5% Transdermal Patch TP 06/09/23 11:13 1 each ONCE ONE Administration Sodium Chloride 50 ml 06/09/23 12:28 06/09/23 12:30 0.9 % Sodium Chloride 50 Ml Vial IV 06/09/23 12:29 50 ml ONCE ONE Administration Sodium Chloride 10 ml 06/09/23 12:28 06/09/23 12:30 Sodium Chloride 0.9% 10ml Syr (Rad Only) IV 06/09/23 12:29 10 ml ONCE ONE Administration ORDERS Category Date Time Status CT angio chest PE protocol Stat Cat Scan 06/09/23 12:06 Taken XR chest portable Stat Exams 06/09/23 09:49 Taken Complete Blood Count Auto Diff Stat Lab 06/09/23 09:48 Completed Comprehensive Metabolic Panel Stat Lab 06/09/23 09:48 Completed D-Dimer Stat Lab 06/09/23 09:48 Completed Lipase Stat Lab 06/09/23 09:48 Completed NT Pro Brain Natriuretic Pep. Stat Lab 06/09/23 09:48 Completed Troponin I Q3H Lab 06/09/23 12:41 Completed Troponin I Q3H Lab 06/09/23 16:00 Ordered Troponin I Stat Lab 06/09/23 09:48 Completed VBG [Venous Blood Gas] Stat RT 06/09/23 09:53 Completed ECG Data Tracing #1: Attestation: I reviewed this ECG and interpreted as documented below: ECG Narrative: Normal sinus rhythm with a ventricular rate of 61 bpm. Borderline first-degree AV block with a NV interval of 221 ms. Intraventricular conduction delay. Nonspecific ST/T wave changes. No significant changes noted from prior EKG. ECG initial impression date: 06/09/23 ECG initial impression time: 09:42 MDM Narrative Medical Decision Narrative: In summary, this patient is a 72-year-old male presenting to the Emergency Department for evaluation of chest pain. Differential diagnoses considered include but are not limited to ACS, dysrhythmia, GERD, unstable angina, pleurisy, pneumonia, respiratory failure, PE, aortic dissection, musculoskeletal pain. Ruling out the most morbid conditions drove assessment. On exam, the patient is in no acute distress. He is resting comfortably with normal vital signs on cardiac telemetry. Doubt aortic pathology as cause, as patient is not significantly hypertensive or tachycardic, and his pulses are equal bilaterally. It is possible this could be musculoskeletal, as the patient states that it is worse with movement and positioning and he does have tenderness to palpation of his left chest wall. Cannot exclude PE with PERC criteria given the patient's age. Workup included CBC, CMP, troponin, BNP, VBG, lipase, D-dimer, chest x-ray, and EKG. EKG obtained is reassuring without significant changes from prior EKG. I independently interpreted x-ray prior to the radiologist read and noted no obvious acute focal consolidation or pneumothorax. Please see their read for final interpretation. Labs were obtained that demonstrated patient's chronic anemia as well as patient's chronic CKD without other acute concerns. VBG is reassuring. BNP is actually improved from previous. Initial troponin is undetectable. Based on exam, feel pain likely could be musculoskeletal. Given this, patient was given a topical Lidoderm patch as well as oral Tylenol for symptomatic improvement. He did unfortunately have a positive D-dimer, so CT PE protocol was ordered. He has CKD, so 500 cc bolus of IV fluids was administered to help mitigate any contrast induced nephropathy risk.) Interpreted CT scan prior to radiology read and noted no obvious large PE, but patient does have possible pneumonia. Please see radiology read for final interpretation. He was given oral doxycycline for treatment of pneumonia. He has normal oxygen saturation and also has no increased work of breathing or significant leukocytosis that would suggest that he would require admission for further workup and evaluation of this pneumonia. At 1125, patient was placed in ED observation status pending second troponin to determine whether or not the patient would be appropriate for discharge versus admission. The patient was provided serial reevaluations and cardiac monitoring while awaiting ultimate disposition. On multiple subsequent reassessments, the patient is resting, with normal vital signs on cardiac telemetry. Second troponin resulted and was negative. At 1425, patient was ultimately deemed to be appropriate for discharge given reassuring workup and exam. This was after 3 hours in ED observation. Patient was given prescription for doxycycline, instructions for close wound follow-up, and strict return precautions. He was transported back to his nursing facility in stable condition.
[2023-06-09 10:00] LABS: VBG Base Excess -2.3 mmol/L (-2.4-2.3); VBG Oxygen Saturation 94.1 % (50-70); VBG PCO2 40.9 mmol/L (35-51); VBG PH 7.37 mmol/L (7.31-7.41); VBG PO2 76.8 mmol/L (28-40); VBG Total CO2 24.3 mmol/L (23-27)
[2023-06-09 10:00] LABS: Basophils % 0.5 % (0.1-2.0); Eosinophils # 0.5 K/mm3 (0.0-0.4); Eosinophils % 6.7 % (0.1-12.0); Hematocrit 31.6 % (42.0-52.0); Hemoglobin 9.8 g/dL (14.1-18.0); Lymphocytes # 0.8 K/mm3 (0.7-4.5); Lymphocytes % 11.3 % (10-50); Mean Corpuscular HGB Conc 31.1 g/dL (31.8-35.4); Mean Corpuscular Volume 93.2 fl (80-94); Mean Platelet Volume 8.5 fl (7.4-10.4); Monocytes # 0.4 K/mm3 (0.1-1.0); Monocytes % 6.2 % (1.7-9.3); Neutrophils # 5.3 K/mm3 (1.8-7.8); Neutrophils % 75.4 % (37.0-80.0); Platelet Count 240 K/mm3 (142-424); Red Blood Count 3.39 M/mm3 (4.60-6.20); Red Cell Distribution Width 17.4 % (11.5-17.5); White Blood Count 7.1 K/mm3 (4.8-10.8)
[2023-06-09 10:01] LABS: Lactate Venous 2.2 mmol/L (0.4-2.0)
[2023-06-09 10:24] LABS: Alanine Aminotransferase 24 U/L (12-78); Albumin Level 3.8 g/dl (3.5-5.0); Albumin/Globulin Ratio 1.1 (1.1-1.8); Alkaline Phosphatase 62 U/L (38-126); Anion Gap 12.3 mEq/L (5-15); Aspartate Amino Transferase 27 U/L (17-59); Bilirubin,Total 0.2 mg/dl (0.2-1.3); Blood Urea Nitrogen 41 mg/dl (9-20); Carbon Dioxide 26 mmol/L (22.0-30.0); Chloride 103 mmol/L (98-107); Creatinine Clearance Estimated 39 mL/min (50-200); Estimated Glomerular Filt Rate 25 ml/min (>60); GFR (African American) 31 ML/MIN (>60); Globulin 3.4 g/dL (1.3-3.2); Glucose 123 mg/dl (74-100); Lipase 57 U/L (23-300); Potassium 4.3 mmoL/L (3.5-5.1); Sodium 137 mmol/L (136-145); Total Protein,Serum 7.2 g/dl (6.3-8.2)
[2023-06-09 10:35] LABS: NT Pro Brain Natriuretic Pep. 582 pg/mL (0-125)
[2023-06-09 10:50] LABS: Troponin I < 0.01 ng/ml (0.00-0.034)
--- NOTE | 2023-06-09 11:14 | PC.NURSE ---
checked on pt and he asked for a blanket. pt was given a blanket
[2023-06-09] MEDS: LIDOCAINE 5% TRANSDERMAL PATCH 1 EACH TP (11:22)
[2023-06-09] MEDS: ACETAMINOPHEN 500MG TAB 1000 MG PO (11:22)
[2023-06-09 11:43] LABS: D-Dimer 1.65 ug/mL (0.0-0.5)
--- NOTE | 2023-06-09 12:06 | CT_ITS ---
FINAL REPORT TECHNIQUE: The patient was injected with IV contrast. Axial images were obtained through the chest in a PE protocol. 3-D reconstruction images were also performed. Individualized dose reduction techniques using automated exposure control or adjustment of the MA and/or KV according to patient's size were employed. CLINICAL HISTORY: chest pain, elevated dimer COMPARISON: 05/25/2023 FINDINGS: Mediastinal vasculature is adequately opacified. No pulmonary artery filling defects are identified to suggest PE. There is no aortic dissection. There is no axillary adenopathy. There is no hilar or mediastinal adenopathy. The heart size is normal. There is no pericardial or pleural effusion. There is patchy airspace infiltrate in the posterior left upper lobe. Chronic scarring is seen in the bases. Limited images of the upper abdomen reveal benign-appearing cysts in the liver. Individual cysts measure up to 1.2 cm. There are multiple cysts throughout both kidneys. The appearance is concerning for polycystic kidney disease. IMPRESSION: No pulmonary embolus or dissection. Left upper lobe airspace infiltrate, probably due to acute pneumonia. Findings concerning for polycystic kidney disease. Reviewed, Interpreted and Dictated by Primitivo Rodriguez MD Transcribed by Nati Funez Authenticated and [facility]
--- NOTE | 2023-06-09 12:07 | PC.NURSE ---
AWARE OF GFR, STILL WANTS THE CTA PE PROTOCOL, WILL GIVE PT 500ML BOLUS,RADIOLOGY AWARE
--- NOTE | 2023-06-09 12:15 | PC.NURSE ---
patient gone to CT at this time.
[2023-06-09] MEDS: 0.9 % SODIUM CHLORIDE 50 ML VIAL IV (12:30)
[2023-06-09] MEDS: SODIUM CHLORIDE 0.9% 10ML SYR (RAD ONLY) 10 ML IV (12:30)
[2023-06-09] MEDS: IOPAMIDOL-370 (76%);100ML BOTTLE 70 ML IV (12:31)
--- NOTE | 2023-06-09 12:35 | INFXCTL.NOTE ---
patient back in room at this time.
[2023-06-09] MEDS: RINGERS SOLUTION,LACTATED 500 ML 999 ML IV (12:41)
[2023-06-09 13:41] LABS: Troponin I < 0.01 ng/ml (0.00-0.034)
[2023-06-09 14:01] LABS: Reflex Lactic Add Lactic Reflex
[2023-06-09] MEDS: DOXYCYCLINE HYCL 100 MG TABLET PO (14:01)
--- NOTE | 2023-06-09 14:20 | PC.NURSE ---
Axel notified of patient's discharge. States they will call [facility] to come pick him up.
== END 2023-06-09 15:02 ==
PROVIDERS: Emergency Provider Emergency Medicine; PCP Internal Medicine
DX: R07.9 Chest pain, unspecified (principal)
CPT/HCPCS: 71045; 71275; 80053; 82803; 83690; 83880; 84484; 85025; 85378; 93005; Q9967

== ENCOUNTER 2023-06-09 20:45 | Observation (INO) | payer MEDICARE, MEDICAID, SELFPAY ==
--- NOTE | 2023-06-09 20:53 | PC.NURSE ---
Call from Miriam Sylvester APRN for direct admit information. Patient coming from [facility] r/t Chest Pain. Miriam spoke to Dr. Dodge who in turn spoke to Harvey Roberts APRN who all agreed for admission here. Patient will go for heart cath tomorrow per Dr. Dodge. Orders to be entered by Hospital Medicine with Cardiology consult. Admitting notified for admission @ 20:45 OBS, 205, Hospitalist, Dx: Chest Pain
--- NOTE | 2023-06-09 21:34 | P.HP_ITS ---
History of Present Illness *Admission Date: 06/09/23 *Reason for visit:: CP *History of present illness: This is a 72-year-old male with a history of COPD chronically on 2 L nasal cannula, pulmonary hypertension, CHF, CAD, prior CVA, blindness, CKD, lung cancer not on treatment, and chronic chest pain who was at the [facility] earlier this morning from cardiology clinic for evaluation with concern for chest pain. initially described as intermittently, it is all across the left side of his chest, which is tender to palpation. He describes it as sharp and 10 out of 10. He notes that it seems to get worse whenever he sits up and moves around. He also states that he is felt short of breath, especially with exertion. patient was worked out negative and discharged back to his Nursing facility. Later on the same day patient continue symptomatic. Therefore request form PCP and cardiology was made for admission and further work up. [facility] Disclaimer: The information contained in this section may have been updated after the patient was seen, as this information can be updated by other users. Medical History (Updated 06/10/23 @ 03:49 by Harvey Roberts APRN) Urinary retention CKD (chronic kidney disease) UTI (urinary tract infection) due to urinary indwelling Jason catheter Atypical angina Acute respiratory failure with hypoxia Stopped smoking with greater than 30 pack year history Pulmonary emphysema Nodule of left lung Atypical pneumonia CVA (cerebral vascular accident) Blind Congestive heart failure Chronic renal failure, stage 3 (moderate) Renal stones Gastroesophageal reflux 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) Encephalomalacia CVA (cerebral vascular accident) Overweight (BMI 25.0-29.9) Obesity (BMI 30.0-34.9) Visual impairment Elevated left ventricular end-diastolic pressure (LVEDP) Diastolic dysfunction Pulmonary HTN Surgical History History of bronchoscopy History of ureteroscopy History of colonoscopy History of colectomy Family History Other Family history of cancer Social History Smoking Status: Former smoker tobacco type: cigarettes packs per day: 1 alcohol intake: never substance use type: denies use current occupational status: disabled Travel in the last 8 weeks: None caregiver/support person: Yes household members: none housing: [facility] lives independently: No marital status: single current occupation: [employer] current occupational exposures/hazards: No caffeine: Yes special milad needs: No agree to transfusion: No do you feel safe at home: Yes victim of physical abuse: No victim of emotional abuse: No victim of sexual abuse: No would you like helpful sources: No Review of Systems Review of Systems Review of systems:: pertinent systems reviewed and negative unless documented below Meds Home Medications and Allergies Home Medications Medication Instructions Recorded Confirmed Type amlodipine 10 mg tablet 10 mg PO DAILY 06/09/23 06/09/23 History aspirin 81 mg chewable tablet 81 mg PO DAILY 06/09/23 06/09/23 History atorvastatin 10 mg tablet 10 mg PO HS 06/09/23 06/09/23 History cetirizine 10 mg tablet 10 mg PO DAILY 06/09/23 06/09/23 History escitalopram oxalate 10 mg tablet 10 mg PO DAILY 06/09/23 06/10/23 History ferrous sulfate 325 mg (65 mg 325 mg PO DAILY 06/09/23 06/09/23 History iron) tablet fluticasone fur. 100 mcg-umeclid 1 inh inhalation DAILY 06/09/23 06/10/23 History 62.5 mcg-vilant 25 mcg inhalat.powder (Trelegy Ellipta) hydrocodone 5 mg-acetaminophen 325 1 tab PO BIDP PRN Pain 06/09/23 06/09/23 History mg tablet isosorbide mononitrate 30 mg 30 mg PO DAILY 06/09/23 06/09/23 History tablet,extended release 24 hr metoprolol succinate 200 mg 200 mg PO DAILY 06/09/23 06/09/23 History tablet,extended release 24 hr omeprazole 20 mg capsule,delayed 20 mg PO DAILY 06/09/23 06/09/23 History release oxcarbazepine 300 mg tablet 300 mg PO BID 06/09/23 06/10/23 History tamsulosin 0.4 mg capsule 0.4 mg PO HS 06/09/23 06/09/23 History triamterene 37.5 1 tab PO DAILY 06/09/23 06/09/23 History mg-hydrochlorothiazide 25 mg tablet acetaminophen 500 mg capsule 500 mg PO Q4HP PRN pain/fever 06/10/23 06/10/23 History doxycycline hyclate 100 mg tablet 100 mg PO BID 6 days #12 tabs 06/10/23 Rx lidocaine 5 % topical patch 1 patch topical Q24H 30 days #30 ea 06/10/23 Rx multivitamin 1 tab PO DAILY 06/10/23 06/10/23 History timolol maleate 0.5 % eye drops 1 drp ophthalmic (eye) DAILY 06/10/23 06/10/23 History New Prescriptions to Start Prescriptions: doxycycline hyclate James,Edi lidocaine James,Edi Allergies Allergy/AdvReac Type Severity Reaction Status Date / Time No Known Allergies Allergy Verified 06/09/23 09:19 Exam Constitutional Constitutional: mild distress *Routine HEENT Exam Head: Present normocephalic Eye: Present other (blindness ) ENT: Present mucous membranes moist *Routine Neck Exam Neck: Present supple and trachea midline *Routine Respiratory Exam Respiratory: Present CTA bilaterally, rhonchi, crackles and normal respiratory effort *Routine Cardiovascular Exam Cardiovascular: Present RRR, Normal S1 and Normal S2 *Routine Abdominal Exam Abdominal: Present soft and normoactive bowel sounds; Absent tenderness *Routine Rectal Exam Rectal:: deferred *Routine Genitalia Exam Genitalia:: deferred *Routine Extremities Exam Extremities: Absent cyanosis, clubbing or edema *Routine Skin Exam Skin: Present intact *Routine Neurological Exam Neurological: Present alert, oriented X3, moving all extremities and normal speech Routine Psychiatric Exam Psychiatric: Present good insight and good judgment H&P: Result Imaging and Cardiology EKG: Status: image reviewed by me, Preliminary report and final report Chest x-ray: Status: image reviewed by me, Preliminary report and final report CT scan - chest: Status: image reviewed by me, Preliminary report and final report Assessment and Plan *Assessment and plan (1) Chest pain: Status: Acute Qualifiers: Chest pain type: unspecified Qualified Code(s): R07.9 - Chest pain, unspecified Category: Medical Code(s): R07.9 - Chest pain, unspecified (2) Pneumonia: Status: Acute Qualifiers: Laterality: left Lung location: upper lobe of lung Pneumonia type: due to unspecified organism Qualified Code(s): J18.9 - Pneumonia, unspecified organism Category: Medical Code(s): J18.9 - Pneumonia, unspecified organism (3) Hypertension: Status: Acute Qualifiers: Hypertension type: unspecified Qualified Code(s): I10 - Essential (primary) hypertension Category: Medical Code(s): I10 - Essential (primary) hypertension (4) CKD (chronic kidney disease) stage 4, GFR 15-29 ml/min: Status: Acute Category: Medical Code(s): N18.4 - Chronic kidney disease, stage 4 (severe) (5) A-fib: Status: Chronic Qualifiers: Atrial fibrillation type: paroxysmal Qualified Code(s): I48.0 - Paroxysmal atrial fibrillation Category: Medical Code(s): I48.91 - Unspecified atrial fibrillation (6) Blind: Status: Acute Qualifiers: Left eye visual impairment category: left - unspecified blindness Right eye visual impairment category: right - unspecified blindness Qualified Code(s): H54.3 - Unqualified visual loss, both eyes Category: Medical Code(s): H54.7 - Unspecified visual loss Plan 72-year-old male with a history of COPD chronically on 2 L nasal cannula, pulmonary hypertension, CHF, CAD, prior CVA, blindness, CKD, lung cancer not on treatment, and chronic chest pain who was at the Ed earlier this morning from cardiology clinic for evaluation with concern for chest pain. patient was worked out negative for cardiac. Imaging was concerned for left upper lobe pneumonia. patient was discharged back to his nursing facility on doxycicline PO. EKG negative for acute ischemia, serial troponin negative. Later on the same day patient continue symptomatic. Therefore request form PCP and cardiology was made for admission. Discussed with cardiology, agreed for admission. plan as follow: -Regular intermittent chest pain: To rule out acute coronary syndrome: Admit patient for continuous cardiac telemetry. Monitor for urinary protocol. Vital signs heart rate and rhythm Monitor for chest pain. Nitroglycerin sublingual as needed EKG CTA and x-ray reviewed Serial troponin negative Repeat labs in the morning Obtain lipid profile to complete cardiac risk assessment Cardiology consult. -Left opper lobe pneumonia: Initially was started on doxycycline p.o.. Will continue with ceftriaxone 1 g with 24h Doxycycline 100 mg twice daily Monitor for O2 saturation Monitor for sepsis and organ dysfunction -Other chronic conditions: CKD with chronic anemia, hypertension, A-fib, BPH: Condition reviewed since stable. Reconciled and resumed home medication Blindness: Supportive care. Fall precaution SCD for DVT prophylaxis. On Protonix Full code Rounded on patient after nurse practitioner. Personally examined and interviewed patient. Agree with exam findings and care plan as documented.
--- NOTE | 2023-06-09 21:41 | PC.NURSE ---
spoke to Akhil who Edi has stated that he wants him to be his Emergency Contact Akhil Number is [phone]
[2023-06-09 21:50] VITALS: O2SAT 95
[2023-06-09 21:58] VITALS: BP 152/70; PULSE 60; RESP 20; TEMP 36.8; O2SAT 93
[2023-06-09] MEDS: 0.9 % SODIUM CHLORIDE 1000ML 1,000 ML 75 ML IV (22:46)
[2023-06-09] MEDS: CEFTRIAXONE 1 GM 1 GM in 0.9 % SODIUM CHLORIDE 50 ML IV (22:46)
[2023-06-09 23:17] VITALS: BMI 32.1
[2023-06-09] MEDS: DOXYCYCLINE HYCLATE 100 MG in 0.9 % SODIUM CHLORIDE 250 ML 166.667000000000002 MG IV (23:25)
[2023-06-10] VITALS: BP 139/75; PULSE 61; RESP 20; TEMP 37; O2SAT 96
[2023-06-10 01:35] LABS: Troponin I 0.02 ng/ml (0.00-0.034)
[2023-06-10 02:00] VITALS: PULSE 60
[2023-06-10 04:00] VITALS: BP 148/88; PULSE 60; PULSE 63; RESP 18; TEMP 36.6; O2SAT 91; BMI 32.1
--- NOTE | 2023-06-10 05:03 | PC.NURSE ---
Since arriving to the floor the patient has had a good night. Has rested well and slept on and off through the night. Patient remains on RA and uses the urinal at the bedside. No other issues this shift
[2023-06-10 06:28] LABS: Basophils # 0.1 K/mm3 (0-0.2); Basophils % 0.8 % (0.1-2.0); Eosinophils # 0.5 K/mm3 (0.0-0.4); Eosinophils % 7.2 % (0.1-12.0); Hematocrit 32.2 % (42.0-52.0); Hemoglobin 10.1 g/dL (14.1-18.0); Lymphocytes # 0.9 K/mm3 (0.7-4.5); Lymphocytes % 13.2 % (10-50); Mean Corpuscular HGB Conc 31.3 g/dL (31.8-35.4); Mean Corpuscular Hemoglobin 28.8 pg (27.0-31.2); Mean Corpuscular Volume 92.1 fl (80-94); Mean Platelet Volume 8.3 fl (7.4-10.4); Monocytes # 0.5 K/mm3 (0.1-1.0); Monocytes % 7.5 % (1.7-9.3); Neutrophils # 4.7 K/mm3 (1.8-7.8); Neutrophils % 71.4 % (37.0-80.0); Platelet Count 239 K/mm3 (142-424); Red Cell Distribution Width 17.5 % (11.5-17.5); White Blood Count 6.5 K/mm3 (4.8-10.8)
[2023-06-10 06:32] LABS: INR 1.12 (0.9-1.1)
[2023-06-10 06:39] LABS: Alanine Aminotransferase 21 U/L (12-78); Albumin Level 3.9 g/dl (3.5-5.0); Albumin/Globulin Ratio 1.1 (1.1-1.8); Alkaline Phosphatase 69 U/L (38-126); Anion Gap 12.4 mEq/L (5-15); Aspartate Amino Transferase 26 U/L (17-59); Blood Urea Nitrogen 40 mg/dl (9-20); Calcium 9.2 mg/dl (8.4-10.2); Carbon Dioxide 26 mmol/L (22.0-30.0); Chloride 106 mmol/L (98-107); Chol/HDL Ratio 3.8 (1-3.5); Cholesterol 103 mg/dl (140-200); Creatinine Clearance Estimated 50 mL/min (50-200); Estimated Glomerular Filt Rate 29 ml/min (>60); GFR (African American) 36 ML/MIN (>60); Globulin 3.4 g/dL (1.3-3.2); Glucose 81 mg/dl (74-100); HDL Cholesterol 27 mg/dl (40-60); Magnesium 2.2 mg/dl (1.6-2.3); Potassium 4.4 mmoL/L (3.5-5.1); Sodium 140 mmol/L (136-145); Total Protein,Serum 7.3 g/dl (6.3-8.2); Triglycerides 110 mg/dl (30-150); VLDL Cholesterol 22 mg/dL (0-40)
[2023-06-10 06:42] LABS: Bilirubin,Total 0.1 mg/dl (0.2-1.3)
[2023-06-10 06:47] LABS: Troponin I 0.03 ng/ml (0.00-0.034)
[2023-06-10 06:50] LABS: Direct LDL Cholesterol 45.19 mg/dL (100-129)
[2023-06-10 07:21] VITALS: BP 179/90; PULSE 69; RESP 20; TEMP 37.2; O2SAT 93
--- NOTE | 2023-06-10 07:22 | SW/DCPLANNER ---
Addendum entered by Raysa Blanca 06/10/23 11:59: I have updated Danielle jiménez/ Axel Gustafson that patient will return [facility] level of care today. Original Note: This patient currently resides at [facility] level of care. I will continue to follow up jessy/ Danielle from [place] until patient is medically stable for discharge. Discharge date is unknown at this time.
--- NOTE | 2023-06-10 07:36 | P.CONPHA_ITS ---
Pharmacy Intervention Comments: home medication list verified using MAR from long term
[2023-06-10 08:00] VITALS: PULSE 60
[2023-06-10] MEDS: DOCUSATE SODIUM 100 MG CAPSULE PO (08:24)
--- NOTE | 2023-06-10 08:42 | P.CONCA_ITS ---
History of Present Illness History of Present Illness Consult date: 06/10/23 Requesting physician: Edi Ramirez Consult reason: chest pain Chief complaint: Pneumonia Additional Medical History:: 1. Blind 2. HTN A. Echo, 06/2022, EF 55-60%. Moderate RV dilatation/mildly reduced function. RVSP estimated 52 mmHg. No significant valve disease. B. Renal artery duplex, 2020, less than 60% stenosis bilaterally. Multiple cysts seen in both kidneys 3. Hyperlipidemia, on statin A. LDL 45 on 06/10/2023 4. CKD, stage III A. Cr 2.2 with GFR 29 on 06/10/2023 5. ERIC induced cough, 03/2019 6. History of DVT 7. CAD with remote history of LAD stent A. [facility], 06/2017, prox LAD stent widely patent with 30% stenosis distal to the stent followed by mid vessel 40 to 50% stenosis. RCA and circumflex codominant with 20% LI's. EF 60% with LVEDP of 20 mmHg. B. [facility], 12/2018, due to abnormal stress test. LAD stent patent with 30 to 40% distal stenosis. Codominant RCA and circumflex have 10 to 30% stenoses. EF 65% with LVEDP of 30 mmHg. C. [facility], 08/2020, left main normal, LAD stent patent. Mild Cx and RCA disease. EF 45-50%, LVEDP 15-20 mmHg. D. Lexiscan Myoview, 01/2023, fixed defect in the basal to mid inferior LV wall. No ischemia. EF 60%. 8. Newly diagnosed A. fibrillation with CVR, EKG, 10/23/2019 A. CHADS VASC score of 3 (Age, history of diastolic CHF, HTN) B. A/C with Xarelto, stopped in May 2022 due to hematuria 9. 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 of the brain showing no acute changes B. Carotid ultrasound, less than 20% stenosis bilaterally 10. GI bleed with Hgb 5.6, 09/2020 A. Colonoscopy, 09/25/2020, cecal mass highly suspicious for cancer B. EGD, 06/2020, somewhat tortuous esophagus, minimal antral inflammation, high fundic arc, sliding hiatal hernia C. Right hemicolectomy, 10/2020, for adenocarcinoma of colon, stage III, with 1 lymph node positive D. Chemotherapy with oral Xeloda, stopped after 5 cycles due to elevated creatinine E. 1 year follow-up colonoscopy, 12/15/2021, multiple polypectomies (pathology: Hyperplastic) F. Colonoscopy, 06/22/2022, splenic flexure focal inflammation with lobulation (biopsy and tattoo) 11. Hematuria with urinary retention, 04/[address] of abdomen pelvis negative for malignancy but without evidence of hemorrhage in the bladder and patient reported blood in urine B prostatic hyperplasia, ureteral obstruction with suprapubic catheter placed 12. Emphysema with history of tobacco use A. Abnormal CT of the chest with left upper lobe nodule, [address] of the chest, 2022, suspected fungal pneumonia but serum fungal serologies were negative in July 2022. Treated for Klebsiella pneumonia. C. Bronchoscopy EBUSS FNA and TBBX, 08/2022, positive for adenocarcinoma. D. PET scan followed by MRI negative for concerning metastatic lesions E. Adenocarcinoma of the lung-stage IIa [id number], diagnosed 09/2022 at , not a surgical candidate. Radiation therapy in [place] completed 11/12/[address] of the chest abdomen pelvis, 02/14/2023 and 05/25/2023, stable with no new abnormalities. History of present illness: This is a 72-year-old male with a history of COPD chronically on 2 L nasal cannula, pulmonary hypertension, CHF, CAD, prior CVA, blindness, CKD, lung cancer not on treatment, and chronic chest pain who was at the Ed earlier this m orning from cardiology clinic for evaluation with concern for chest pain. initially described as intermittently, it is all across the left side of his chest, which is tender to palpation. He describes it as sharp and 10 out of 10. He notes that it seems to get worse whenever he sits up and moves around. He also states that he is felt short of breath, especially with exertion. patient was worked out negative and discharged back to his Nursing facility. Later on the same day patient continue symptomatic. Therefore request form PCP and cardiology was made for admission and further work up. The above per Harvey Roberts APRN History above confirmed with the patient. Explained that his chest discomfort and shortness of breath are likely due to pneumonia. Troponins normal x 3. EKG is sinus rhythm at 61 bpm with first-degree AV block, left axis deviation and IVCD with nonspecific ST-T abnormalities. [facility] Disclaimer: The information contained in this section may have been updated after the patient was seen, as this information can be updated by other users. Medical History (Updated 06/10/23 @ 03:49 by Harvey Roberts APRN) Urinary retention CKD (chronic kidney disease) UTI (urinary tract infection) due to urinary indwelling Jason catheter Atypical angina Acute respiratory failure with hypoxia Stopped smoking with greater than 30 pack year history Pulmonary emphysema Nodule of left lung Atypical pneumonia CVA (cerebral vascular accident) Blind Congestive heart failure Chronic renal failure, stage 3 (moderate) Renal stones Gastroesophageal reflux 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) Encephalomalacia CVA (cerebral vascular accident) Overweight (BMI 25.0-29.9) Obesity (BMI 30.0-34.9) Visual impairment Elevated left ventricular end-diastolic pressure (LVEDP) Diastolic dysfunction Pulmonary HTN Surgical History History of bronchoscopy History of ureteroscopy History of colonoscopy History of colectomy Family History Other Family history of cancer Social History Smoking Status: Former smoker tobacco type: cigarettes packs per day: 1 alcohol intake: never substance use type: denies use current occupational status: disabled Travel in the last 8 weeks: None caregiver/support person: Yes household members: none housing: residential lives independently: No marital status: single current occupation: [employer] current occupational exposures/hazards: No caffeine: Yes special milad needs: No agree to transfusion: No do you feel safe at home: Yes victim of physical abuse: No victim of emotional abuse: No victim of sexual abuse: No would you like helpful sources: No Review of Systems Review of Systems Review of systems:: pertinent systems reviewed and negative unless documented below *Cardiovascular Cardiovascular: Reports chest pain and Reports dyspnea *Respiratory Respiratory: Reports cough and Reports dyspnea Exam Data for Last 24 hours Vital signs and Labs for Last 24 Hours: Temp Pulse Resp BP Pulse Ox O2 Del Method 98.9 F 69 20 179/90 H 93 L Room Air 03/29/24 07:21 06/10/23 07:21 06/10/23 07:21 06/10/23 07:21 06/10/23 07:21 06/10/23 07:21 Laboratory Results - last 24 hr 06/10/23 01:00: Troponin I 0.02 06/10/23 05:30: WBC 6.5, RBC 3.50 L, Hgb 10.1 L, Hct 32.2 L, MCV 92.1, MCH 28.8, MCHC 31.3 L, RDW 17.5, Plt Count 239, MPV 8.3, Neut % (Auto) 71.4, Lymph % (Auto) 13.2, [place] % (Auto) 7.5, Eos % (Auto) 7.2, Baso % (Auto) 0.8, Neut # (Auto) 4.7, Lymph # (Auto) 0.9, [place] # (Auto) 0.5, Eos # (Auto) 0.5 H, Baso # (Auto) 0.1, PT 12.0, INR 1.12 H, Sodium 140, Potassium 4.4, Chloride 106, Carbon Dioxide 26, Anion Gap 12.4, BUN 40 H, Creatinine 2.20 H, Estimated Creat Clear 50, Estimated GFR 29 L, Est GFR ( Amer) 36 L, Glucose 81 D, Calcium 9.2, Magnesium 2.2, Total Bilirubin 0.1 L, AST 26, ALT 21, Alkaline Phosphatase 69, Troponin I 0.03, Total Protein 7.3, Albumin 3.9, Globulin 3.4 H, Albumin/Globulin Ratio 1.1, Triglycerides 110, Cholesterol 103 L, LDL Ch olesterol Direct 45.19 L, VLDL Cholesterol 22, HDL Cholesterol 27 L, Cholesterol/HDL Ratio 3.8 H I & O for Last 24 hours: Intake & Output 06/07/23 06/08/23 06/09/23 06/10/23 11:59 11:59 11:59 11:59 Intake Total 610 / 610 Output Total 1600 / 1600 Balance -990 / -990 Weight 263 lb 11.2 oz Constitutional Constitutional: no acute distress Routine Chest/Breast/Axilla Exam Chest wall: Present tenderness *Routine Respiratory Exam Respiratory: Present decreased breath sounds and rhonchi *Routine Cardiovascular Exam Cardiovascular: Present RRR; Absent murmur, gallop or rubs *Routine Extremities Exam Extremities: Absent edema *Routine Neurological Exam Neurological: Present alert and oriented X3 Meds Home Medications and Allergies Home Medications Medication Instructions Recorded Confirmed Type amlodipine 10 mg tablet 10 mg PO DAILY 06/09/23 06/09/23 History aspirin 81 mg chewable tablet 81 mg PO DAILY 06/09/23 06/09/23 History atorvastatin 10 mg tablet 10 mg PO HS 06/09/23 06/09/23 History cetirizine 10 mg tablet 10 mg PO DAILY 06/09/23 06/09/23 History escitalopram oxalate 10 mg tablet 10 mg PO DAILY 06/09/23 06/10/23 History ferrous sulfate 325 mg (65 mg 325 mg PO DAILY 06/09/23 06/09/23 History iron) tablet fluticasone fur. 100 mcg-umeclid 1 inh inhalation DAILY 06/09/23 06/10/23 History 62.5 mcg-vilant 25 mcg inhalat.powder (Trelegy Ellipta) hydrocodone 5 mg-acetaminophen 325 1 tab PO BIDP PRN Pain 06/09/23 06/09/23 History mg tablet isosorbide mononitrate 30 mg 30 mg PO DAILY 06/09/23 06/09/23 History tablet,extended release 24 hr metoprolol succinate 200 mg 200 mg PO DAILY 06/09/23 06/09/23 History tablet,extended release 24 hr omeprazole 20 mg capsule,delayed 20 mg PO DAILY 06/09/23 06/09/23 History release oxcarbazepine 300 mg tablet 300 mg PO BID 06/09/23 06/10/23 History tamsulosin 0.4 mg capsule 0.4 mg PO HS 06/09/23 06/09/23 History triamterene 37.5 1 tab PO DAILY 06/09/23 06/09/23 History mg-hydrochlorothiazide 25 mg tablet acetaminophen 500 mg capsule 500 mg PO Q4HP PRN pain/fever 06/10/23 06/10/23 History multivitamin 1 tab PO DAILY 06/10/23 06/10/23 History timolol maleate 0.5 % eye drops 1 drp ophthalmic (eye) DAILY 06/10/23 06/10/23 History New Prescriptions to Start Prescriptions: Allergies Allergy/AdvReac Type Severity Reaction Status Date / Time No Known Allergies Allergy Verified 06/09/23 09:19 Assessment and Plan *Assessment and plan (1) Pneumonia: Status: Acute Qualifiers: Laterality: left Lung location: upper lobe of lung Pneumonia type: due to unspecified organism Qualified Code(s): J18.9 - Pneumonia, unspecified organism Category: Medical Code(s): J18.9 - Pneumonia, unspecified organism (2) Chronic hypoxic respiratory failure: Status: Acute Category: Medical Code(s): J96.11 - Chronic respiratory failure with hypoxia (3) Chest pain: Status: Acute Qualifiers: Chest pain type: unspecified Qualified Code(s): R07.9 - Chest pain, unspecified Category: Medical Code(s): R07.9 - Chest pain, unspecified (4) Blind: Status: Acute Qualifiers: Left eye visual impairment category: left - unspecified blindness Right eye visual impairment category: right - unspecified blindness Qualified Code(s): H54.3 - Unqualified visual loss, both eyes Category: Medical Code(s): H54.7 - Unspecified visual loss (5) Hypertension: Status: Acute Qualifiers: Hypertension type: unspecified Qualified Code(s): I10 - Essential (primary) hypertension Category: Medical Code(s): I10 - Essential (primary) hypertension (6) Pulmonary emphysema: Status: Chronic Qualifiers: Emphysema type: centrilobular Qualified Code(s): J43.2 - Centrilobular emphysema Category: Medical Code(s): J43.9 - Emphysema, unspecified (7) Pulmonary HTN: Status: Acute Category: Medical Code(s): I27.20 - Pulmonary hypertension, unspecified (8) A-fib: Status: Chronic Qualifiers: Atrial fibrillation type: paroxysmal Qualified Code(s): I48.0 - Paroxysmal atrial fibrillation Category: Medical Code(s): I48.91 - Unspecified atrial fibrillation (9) Anemia: Status: Acute Qualifiers: Anemia type: unspecified type Qualified Code(s): D64.9 - Anemia, unspecified Category: Medical Code(s): D64.9 - Anemia, unspecified (10) CKD (chronic kidney disease) stage 4, GFR 15-29 ml/min: Status: Acute Category: Medical Code(s): N18.4 - Chronic kidney disease, stage 4 (severe) (11) Lung cancer: Status: Acute Qualifiers: Laterality: unspecified laterality Lung location: unspecified part of lung Qualified Code(s): C34.90 - Malignant neoplasm of unspecified part of unspecified bronchus or lung Category: Medical Code(s): C34.90 - Malignant neoplasm of unspecified part of unspecified bronchus or lung (12) CAD (coronary artery disease): Status: Resolved Qualifiers: Associated angina: with stable angina Coronary Disease-Associated Artery/Lesion type: unspecified vessel or lesion type [place] vs. transplanted heart: unga heart Qualified Code(s): I25.118 - Atherosclerotic heart disease of unga coronary artery with other forms of angina pectoris Category: Medical Code(s): I25.10 - Atherosclerotic heart disease of unga coronary artery without angina pectoris Plan 1. Shortness of breath with pneumonia, left upper lobe in area of previous lung cancer and radiation therapy -Antibiotics per hospitalist 2. Chest pain with reproduction upon palpation of the chest, likely secondary to #1 -Troponins normal 3. History of adenocarcinoma of the lung -Status post chemotherapy and radiation, 2022 4. CAD with prior coronary stenting -Troponins normal -Resume aspirin 81 mg daily and isosorbide mononitrate 30 mg daily 5. Hypertension -Resume amlodipine 10 mg daily and metoprolol ER 200 mg daily as well as triamterene-HCTZ 37.5/25 mg daily 6. Hyperlipidemia -Continue statin therapy Nothing further to add at this time. Please call if needed. Follow-up in our office as previously scheduled.
[2023-06-10] MEDS: DOXYCYCLINE HYCLATE 100 MG in 0.9 % SODIUM CHLORIDE 250 ML 166.667000000000002 MG IV (10:07)
[2023-06-10] MEDS: AMLODIPINE 10MG TABLET 10 MG PO (10:08)
[2023-06-10] MEDS: ISOSORBIDE MONO 30MG TAB.ER.24H 30 MG PO (10:08)
[2023-06-10] MEDS: OXcarbazepine 300MG TABLET 300 MG PO (10:08)
[2023-06-10] MEDS: FERROUS SULFATE 325MG TABLET 325 MG PO (10:08)
[2023-06-10] MEDS: HCTZ 25MG/TRIAMTERENE 37.5MG TABLET 1 EACH PO (10:08)
[2023-06-10] MEDS: CITALOPRAM 20MG TABLET 20 MG PO (10:08)
[2023-06-10] MEDS: ASPIRIN 81MG CHEWABLE TABLET 81 MG PO (10:08)
[2023-06-10] MEDS: LORATADINE 10MG TABLET 10 MG PO (10:08)
[2023-06-10] MEDS: METOPROLOL SUCCINATE XL 100MG TABLET 200 MG PO (10:09)
[2023-06-10] MEDS: TIMOLOL 0.5% OPTH SOLN 5ML OP (10:09)
[2023-06-10] MEDS: FLUTICASONE/UMECLIDIN/VILANTER 100/62.5/25MCG INHALER 1 PUFF IH (10:35)
--- NOTE | 2023-06-10 11:25 | EXP.DC.SUM ---
General Admission date:: 06/09/23 Discharge date: 06/10/23 HPI HPI HPI: This is a 72-year-old male with a history of COPD chronically on 2 L nasal cannula, pulmonary hypertension, CHF, CAD, prior CVA, blindness, CKD, lung cancer not on treatment, and chronic chest pain who was at the Ed earlier this morning from cardiology clinic for evaluation with concern for chest pain. initially described as intermittently, it is all across the left side of his chest, which is tender to palpation. He describes it as sharp and 10 out of 10. He notes that it seems to get worse whenever he sits up and moves around. He also states that he is felt short of breath, especially with exertion. patient was worked out negative and discharged back to his Nursing facility. Later on the same day patient continue symptomatic. Therefore request form PCP and cardiology was made for admission and further work up. Hospital Course Hospital Course Hospital Course: 72-year-old male with a history of COPD chronically on 2 L nasal cannula, pulmonary hypertension, CHF, CAD, prior CVA, blindness, CKD, lung cancer not on treatment, and chronic chest pain who was at the ED earlier on morning of discharge from cardiology clinic for evaluation and concern for chest pain. Workup was negative. Chest imaging concerning for pneumonia. Was discharged back to his nursing facility on doxycycline. Later the same day, patient continued to be symptomatic and request was made by cardiology for direct admission and further evaluation. On monitoring overnight, patient is remained stable. Chest pain is musculoskeletal in nature. No indication for cardiac workup. Cardiology evaluated and recommended discharge back to his nursing facility to treat his pneumonia. Stable for discharge. Problems addressed as follows: -Regular intermittent chest pain: - To rule out acute coronary syndrome: Patient admitted for monitoring on telemetry. EKG with no ST changes or ischemic changes. Serial troponins and. Evaluated by cardiology, and is negative troponin and normal EKG, no plan for intervention at this time. Continue medical management with home amlodipine 10 mg daily, metoprolol extended release 200 mg daily, and triamterene/HCTZ 37.5/25 mg daily. Continue statin and aspirin for CAD and hyperlipidemia. Follow-up as an outpatient as previously scheduled. Will trial lidocaine patch on left chest for musculoskeletal pain/noncardiac chest pain. -Left opper lobe pneumonia: Initially was started on doxycycline p.o. after presenting to the ER with findings of airspace disease on chest imaging. Treated with a dose of Rocephin during admission. Will resume doxycycline at discharge. Complete 7-day course. Stable on baseline oxygen. -White cell count stable at 6.5. CKD: Kidney function at baseline BUN of 40 and creatinine of 2.2. Exam Data for Last 24 hours Vital signs and Labs for Last 24 Hours: Temp Pulse Resp BP Pulse Ox O2 Del Method 98.9 F 60 20 179/90 H 93 L Room Air 06/10/23 07:21 06/10/23 08:00 06/10/23 07:21 06/10/23 07:21 06/10/23 07:21 06/10/23 09:00 Laboratory Results - last 24 hr 06/10/23 01:00: Troponin I 0.02 06/10/23 05:30: WBC 6.5, RBC 3.50 L, Hgb 10.1 L, Hct 32.2 L, MCV 92.1, MCH 28.8, MCHC 31.3 L, RDW 17.5, Plt Count 239, MPV 8.3, Neut % (Auto) 71.4, Lymph % (Auto) 13.2, [place] % (Auto) 7.5, Eos % (Auto) 7.2, Baso % (Auto) 0.8, Neut # (Auto) 4.7, Lymph # (Auto) 0.9, [place] # (Auto) 0.5, Eos # (Auto) 0.5 H, Baso # (Auto) 0.1, PT 12.0, INR 1.12 H, Sodium 140, Potassium 4.4, Chloride 106, Carbon Dioxide 26, Anion Gap 12.4, BUN 40 H, Creatinine 2.20 H, Estimated Creat Clear 50, Estimated GFR 29 L, Est GFR ( Amer) 36 L, Glucose 81 D, Calcium 9.2, Magnesium 2.2, Total Bilirubin 0.1 L, AST 26, ALT 21, Alkaline Phosphatase 69, Troponin I 0.03, Total Protein 7.3, Albumin 3.9, Globulin 3.4 H, Albumin/Globulin Ratio 1.1, Triglycerides 110, Cholesterol 103 L, LDL Cholesterol Direct 45.19 L, VLDL Cholesterol 22, HDL Cholesterol 27 L, Cholesterol/HDL Ratio 3.8 H I & O for Last 24 hours: Intake & Output 06/07/23 06/08/23 06/09/23 06/10/23 23:59 23:59 23:59 23:59 Intake Total 610 / 610 Output Total 250 / 250 1350 / 1350 Balance -250 / 0 -740 / -740 Weight 119.493 kg 119.612 kg Constitutional Constitutional: no acute distress, obese, chronically ill appearing and cooperative *Routine HEENT Exam Head: Present normocephalic ENT: Present mucous membranes moist Comments: blind *Routine Neck Exam Neck: Present supple; Absent lymphadenopathy Routine Chest/Breast/Axilla Exam Chest wall: Absent tenderness *Routine Respiratory Exam Respiratory: Present CTA bilaterally; Absent rhonchi, wheezes or crackles *Routine Cardiovascular Exam Cardiovascular: Present RRR *Routine Abdominal Exam Abdominal: Present soft, normoactive bowel sounds and tenderness (epigastric) *Routine Rectal Exam Patient deferred: visual exam *Routine Exam Patient deferred: penile exam *Routine Extremities Exam Extremities: Present edema (1+ to knees in BLE); Absent cyanosis or clubbing *Routine Skin Exam Skin: Present warm; Absent rash Comments: Chronic stasis changes bilateral lower extremities *Routine Neurological Exam Neurological: Present alert and moving all extremities; Absent altered mental status Results Data Completed and Pending Labs on day of discharge: Labs from last 24 hours 06/10/23 06/10/23 05:30 01:00 WBC 6.5 RBC 3.50 L Hgb 10.1 L Hct 32.2 L MCV 92.1 MCH 28.8 MCHC 31.3 L RDW 17.5 Plt Count 239 MPV 8.3 Neut % (Auto) 71.4 Lymph % (Auto) 13.2 [place] % (Auto) 7.5 Eos % (Auto) 7.2 Baso % (Auto) 0.8 Neut # (Auto) 4.7 Lymph # (Auto) 0.9 [place] # (Auto) 0.5 Eos # (Auto) 0.5 H Baso # (Auto) 0.1 PT 12.0 INR 1.12 H Sodium 140 Potassium 4.4 Chloride 106 Carbon Dioxide 26 Anion Gap 12.4 BUN 40 H Creatinine 2.20 H Estimated Creat Clear 50 Estimated GFR 29 L Est GFR ( Amer) 36 L Glucose 81 D Calcium 9.2 Magnesium 2.2 Total Bilirubin 0.1 L AST 26 ALT 21 Alkaline Phosphatase 69 Troponin I 0.03 0.02 Total Protein 7.3 Albumin 3.9 Globulin 3.4 H Albumin/Globulin Ratio 1.1 Triglycerides 110 Cholesterol 103 L LDL Cholesterol Direct 45.19 L VLDL Cholesterol 22 HDL Cholesterol 27 L Cholesterol/HDL Ratio 3.8 H DS: Diagnosis Discharge Diagnosis (1) Pneumonia: Status: Acute Code(s): J18.9 - Pneumonia, unspecified organism Qualifiers: Laterality: left Lung location: upper lobe of lung Pneumonia type: due to unspecified organism Qualified Code(s): J18.9 - Pneumonia, unspecified organism (2) Chronic hypoxic respiratory failure: Status: Acute Code(s): J96.11 - Chronic respiratory failure with hypoxia (3) Chest pain: Status: Acute Code(s): R07.9 - Chest pain, unspecified Qualifiers: Chest pain type: unspecified Qualified Code(s): R07.9 - Chest pain, unspecified (4) Blind: Status: Acute Code(s): H54.7 - Unspecified visual loss Qualifiers: Left eye visual impairment category: left - unspecified blindness Right eye visual impairment category: right - unspecified blindness Qualified Code(s): H54.3 - Unqualified visual loss, both eyes (5) Hypertension: Status: Acute Code(s): I10 - Essential (primary) hypertension Qualifiers: Hypertension type: unspecified Qualified Code(s): I10 - Essential (primary) hypertension (6) Pulmonary emphysema: Status: Chronic Code(s): J43.9 - Emphysema, unspecified Qualifiers: Emphysema type: centrilobular Qualified Code(s): J43.2 - Centrilobular emphysema (7) Pulmonary HTN: Status: Acute Code(s): I27.20 - Pulmonary hypertension, unspecified (8) A-fib: Status: Chronic Code(s): I48.91 - Unspecified atrial fibrillation Qualifiers: Atrial fibrillation type: paroxysmal Qualified Code(s): I48.0 - Paroxysmal atrial fibrillation (9) Anemia: Status: Acute Code(s): D64.9 - Anemia, unspecified Qualifiers: Anemia type: unspecified type Qualified Code(s): D64.9 - Anemia, unspecified (10) CKD (chronic kidney disease) stage 4, GFR 15-29 ml/min: Status: Acute Code(s): N18.4 - Chronic kidney disease, stage 4 (severe) (11) Lung cancer: Status: Acute Code(s): C34.90 - Malignant neoplasm of unspecified part of unspecified bronchus or lung Qualifiers: Laterality: unspecified laterality Lung location: unspecified part of lung Qualified Code(s): C34.90 - Malignant neoplasm of unspecified part of unspecified bronchus or lung (12) CAD (coronary artery disease): Status: Resolved Code(s): I25.10 - Atherosclerotic heart disease of [place] coronary artery without angina pectoris Qualifiers: Associated angina: with stable angina Coronary Disease-Associated Artery/Lesion type: unspecified vessel or lesion type [place] vs. transplanted heart: [place] heart Qualified Code(s): I25.118 - Atherosclerotic heart disease of [place] coronary artery with other forms of angina pectoris Meds Home Medications and Allergies Home Medications Medication Instructions Recorded Confirmed Type amlodipine 10 mg tablet 10 mg PO DAILY 06/09/23 06/09/23 History aspirin 81 mg chewable tablet 81 mg PO DAILY 06/09/23 06/09/23 History atorvastatin 10 mg tablet 10 mg PO HS 06/09/23 06/09/23 History cetirizine 10 mg tablet 10 mg PO DAILY 06/09/23 06/09/23 History escitalopram oxalate 10 mg tablet 10 mg PO DAILY 06/09/23 06/10/23 History ferrous sulfate 325 mg (65 mg 325 mg PO DAILY 06/09/23 06/09/23 History iron) tablet fluticasone fur. 100 mcg-umeclid 1 inh inhalation DAILY 06/09/23 06/10/23 History 62.5 mcg-vilant 25 mcg inhalat.powder (Trelegy Ellipta) hydrocodone 5 mg-acetaminophen 325 1 tab PO BIDP PRN Pain 06/09/23 06/09/23 History mg tablet isosorbide mononitrate 30 mg 30 mg PO DAILY 06/09/23 06/09/23 History tablet,extended release 24 hr metoprolol succinate 200 mg 200 mg PO DAILY 06/09/23 06/09/23 History tablet,extended release 24 hr omeprazole 20 mg capsule,delayed 20 mg PO DAILY 06/09/23 06/09/23 History release oxcarbazepine 300 mg tablet 300 mg PO BID 06/09/23 06/10/23 History tamsulosin 0.4 mg capsule 0.4 mg PO HS 06/09/23 06/09/23 History triamterene 37.5 1 tab PO DAILY 06/09/23 06/09/23 History mg-hydrochlorothiazide 25 mg tablet acetaminophen 500 mg capsule 500 mg PO Q4HP PRN pain/fever 06/10/23 06/10/23 History doxycycline hyclate 100 mg tablet 100 mg PO BID 6 days #12 tabs 06/10/23 Rx lidocaine 5 % topical patch 1 patch topical Q24H 30 days #30 ea 06/10/23 Rx multivitamin 1 tab PO DAILY 06/10/23 06/10/23 History timolol maleate 0.5 % eye drops 1 drp ophthalmic (eye) DAILY 06/10/23 06/10/23 History New Prescriptions to Start Prescriptions: varsha hytahminaate James,Edi Whalen Allergies Allergy/AdvReac Type Severity Reaction Status Date / Time No Known Allergies Allergy Verified 06/09/23 09:19 Discharge Plan Disposition Patient Disposition: er Intermediate Care Fac Condition: Good Discharge Order Discharge Orders: Discharge Order (Routine); Ordered 06/10/23 Ordered By: Edi Ramirez Follow up Plan Follow up with: Slava Dodge MD [Staff Physician] - 06/21/23 10:15 am Prescriptions/Medication Reconciliation: New lidocaine 5 % Adhesive Patch,Medicated 1 patch topical Q24H 30 Days Qty: 30 0RF doxycycline hyclate 100 mg Tablet 100 mg PO BID 6 Days Qty: 12 0RF Continued cetirizine 10 mg tablet 10 mg PO DAILY atorvastatin 10 mg tablet 10 mg PO HS hydrocodone-acetaminophen 5-325 mg tablet 1 tab PO BIDP PRN (Reason: Pain) metoprolol succinate 200 mg tablet extended release 24 hr 200 mg PO DAILY isosorbide mononitrate 30 mg tablet extended release 24 hr 30 mg PO DAILY oxcarbazepine 300 mg tablet 300 mg PO BID tamsulosin 0.4 mg capsule 0.4 mg PO HS amlodipine 10 mg tablet 10 mg PO DAILY ferrous sulfate 325 mg (65 mg iron) tablet 325 mg PO DAILY triamterene-hydrochlorothiazid 37.5-25 mg tablet 1 tab PO DAILY omeprazole 20 mg capsule,delayed release(DR/EC) 20 mg PO DAILY aspirin 81 mg tablet,chewable 81 mg PO DAILY escitalopram oxalate 10 mg tablet 10 mg PO DAILY Treleruperto Ellipta 100-62.5-25 mcg blister with device 1 inh INHALATION DAILY multivitamin Tablet 1 tab PO DAILY timolol maleate 0.5 % drops 1 drp ophthalmic (eye) DAILY acetaminophen 500 mg Capsule 500 mg PO Q4HP PRN (Reason: pain/fever) Problem Reconciliation Problems Reviewed?: Yes Patient Discharge Instructions ACTIVITY: Continue current activity DIET: continue same diet Patient Instructions: DI for Pneumonia -- Adult, DI for Angina Providers Primary Care Provider: Slava Butler Admit Provider: Edi Ramirez Attending Provider: Edi Ramirez
[2023-06-10] MEDS: LIDOCAINE 5% TRANSDERMAL PATCH 1 EACH TP (12:00)
--- NOTE | 2023-06-10 13:53 | PC.NURSE ---
REPORT CALL TO INTERMEDIATE AT 1313 TO JIA ESTRADA
== END 2023-06-10 14:07 ==
PROVIDERS: Nurse Practitioner Family; Admitting Provider Internal Medicine Adolescent Medicine; PCP Internal Medicine; Visit Provider Internal Medicine Adolescent Medicine
DX: R07.9 Chest pain, unspecified (principal); J18.9 Pneumonia, unspecified organism; I12.9 Hypertensive chronic kidney disease with stage 1 through stage 4 chronic kidney disease, or unspecified chronic kidney disease; N18.4 Chronic kidney disease, stage 4 (severe); I48.0 Paroxysmal atrial fibrillation; H54.3 Unqualified visual loss, both eyes; J96.11 Chronic respiratory failure with hypoxia; J43.2 Centrilobular emphysema; I27.20 Pulmonary hypertension, unspecified; D64.9 Anemia, unspecified; C34.12 Malignant neoplasm of upper lobe, left bronchus or lung; I25.118 Atherosclerotic heart disease of native coronary artery with other forms of angina pectoris; Z99.81 Dependence on supplemental oxygen; R06.02 Shortness of breath
CPT/HCPCS: G0379; 36415; 71045; 71275; 80053; 80061; 82803; 83690; 83735; 83880; 84484; 85025; 85378; 85610; 93005; 94640; G0378; J0696; Q9967

== ENCOUNTER 2023-08-11 10:25 | Outpatient (CLI) | payer MEDICARE, MEDICAID, SELFPAY ==
--- NOTE | 2023-08-11 10:26 | CT_ITS ---
FINAL REPORT CLINICAL HISTORY: eval of stomach and bowels COMPARISON: 02/14/2023 FINDINGS: There is scarring or atelectasis at the lung bases. The liver parenchyma is homogeneous. The gallbladder is present. The spleen, pancreas, and adrenal glands have an unremarkable appearance. There are multitude of bilateral renal cysts measuring up to 5.5 cm in greatest dimension. Multiple bilateral nonobstructing stones measure up to 1.2 cm in greatest dimension. There is no hydronephrosis or hydroureter. There are at least 2 hernias of the midline anterior abdominal wall. The more superior hernia lies eccentric to the left and appears to contains a segment of small bowel. The more inferior focus lies in the midline at the level of the umbilicus and contains a segment of sigmoid colon. The GI tract demonstrates no obstruction. The urinary bladder is moderately distended. A TURP defect is noted. IMPRESSION: Bilateral renal cysts and bilateral renal stones, similar to the previous exam. Hernias, in the anterior abdominal wall, appear larger than on the prior exam and contain more bowel than previous. Reviewed, Interpreted and Dictated by Primitivo Rodriguez MD Transcribed by Zamzam Gonzalez Authenticated and . [facility]
[2023-08-11 11:22] LABS: Blood Urea Nitrogen 45 mg/dl (9-20); Estimated Glomerular Filt Rate 27 ml/min (>60); GFR (African American) 32 ML/MIN (>60)
[2023-08-11] MEDS: IOPAMIDOL-370 (76%);100ML BOTTLE 75 ML IV (12:30)
[2023-08-11] MEDS: SODIUM CHLORIDE 0.9% 10ML SYR (RAD ONLY) 10 ML IV (12:30)
== END 2023-08-11 23:59 | disposition home or self-care (01) ==
LOC: RAD 10:26
PROVIDERS: PCP Internal Medicine; Visit Provider Nurse Practitioner
DX: Z85.038 Personal history of other malignant neoplasm of large intestine (principal); Z85.46 Personal history of malignant neoplasm of prostate; R31.9 Hematuria, unspecified
CPT/HCPCS: 36415; 74178; 82565; 84520; Q9967

== ENCOUNTER 2023-08-15 15:06 | Emergency (ER) | payer MEDICARE, MEDICAID, SELFPAY ==
[2023-08-15] VITALS (10 sets, daily range): BP systolic 122–140; BP diastolic 67–85; PULSE 68–71; RESP 16–27; TEMP 36.7–36.8; O2SAT 91–100; BMI 27.1
--- NOTE | 2023-08-15 15:17 | CT_ITS ---
FINAL REPORT TECHNIQUE: Pre-and postcontrast images of the abdomen through the pelvis were performed by computed tomography. Extensive 3-D reconstruction images were performed. A CTA was performed. This study was performed with techniques to keep radiation doses as low as reasonably achievable (ALARA). Individualized dose reduction techniques using automated exposure control or adjustment of mA and/or kV according to the patient's size were employed. CLINICAL HISTORY: severe abd pain, acute COMPARISON: CT abdomen and pelvis 08/11/2023 FINDINGS: ABDOMEN: Precontrast images demonstrate numerous bilateral renal cysts consistent with polycystic kidney disease. There are multiple bilateral nonobstructing renal stones, the largest in the lower pole of the right kidney measuring 11 mm in stable. There is mild right hydronephrosis which is stable. No ureteral stone identified. No adrenal masses are identified. The liver, spleen and pancreas are unremarkable. Again noted are 2 supraumbilical hernias containing small bowel loops. There is no evidence of bowel obstruction. There are postoperative changes from right hemicolectomy. There are multiple descending and sigmoid diverticula. PELVIS: The appendix is not identified. The urinary bladder is moderately distended. TURP defect is noted. There is no significant free fluid or adenopathy. The bony pelvis is unremarkable. Right L5 pars defects are noted. CTA: There is no evidence of abdominal aortic aneurysm or dissection. The SMA, celiac axis, and MARJORIE are patent. There is no significant stenosis or calcification. The renal arteries are patent bilaterally. The iliac arteries are patent bilaterally. IMPRESSION: No evidence of abdominal aortic aneurysm or dissection. No significant stenosis or major branch occlusion. Polycystic kidney disease. Multiple renal stones. Supraumbilical hernias. Reviewed, Interpreted and Dictated by Ger Andrews III, MD Transcribed by Sayra Bliss Authenticated and [facility]
--- NOTE | 2023-08-15 15:17 | CT_ITS ---
FINAL REPORT CLINICAL HISTORY: severe shortness of breath, acute onset COMPARISON: 06/09/2023 FINDINGS: Thin section axial CT images of the chest were obtained with contrast. 3D reformatted images were also obtained. This study was performed with techniques to keep radiation doses as low as reasonably achievable (ALARA). Individualized dose reduction techniques using automated exposure control or adjustment of mA and/or kV according to the patient''s size were employed. There is motion artifact on many of the images decreasing sensitivity of this exam. There is no evidence of large or central pulmonary embolism. There is a peripherally calcified focus lateral to the proximal left subclavian artery measuring 9 mm of uncertain etiology which could represent thrombosed aneurysm. There is no evidence of mediastinal or hilar mass or adenopathy. There is mild bibasilar atelectasis. Persistent posterior left upper lobe opacities are worrisome for pneumonia. On axial image 47, there is a 16 mm nodular component which is new. Moderate emphysema is noted. IMPRESSION: No evidence of pulmonary embolism. Persistent posterior left upper lobe opacities with new nodular component favored to represent inflammatory changes. Recommend additional follow-up chest CT in 3 months. Reviewed, Interpreted and Dictated by Ger Andrews III, MD Transcribed by Sayra Bliss Authenticated and [facility]
--- NOTE | 2023-08-15 15:18 | XR_ITS ---
FINAL REPORT CLINICAL HISTORY: Shortness of breath and abd pain COMPARISON: None FINDINGS: A single portable view of the chest was obtained. Cardiomegaly is noted. The pulmonary vascularity is within normal limits. The mediastinum is within normal limits. There are low lung volumes. Bibasilar atelectasis is noted. The bony thorax is intact. IMPRESSION: Low lung volumes with bibasilar atelectasis. Reviewed, Interpreted and Dictated by Ger Andrews III, MD Transcribed by Sayra Bliss Authenticated and [facility]
--- NOTE | 2023-08-15 15:20 | ECG_ITS ---
APPROVED REPORT Exam: Resting ECG HR:65 bpm ECG Measurements Heart Rate 65 AXES VA 207 P 40 QRSd 127 QRS -59 QT 392 T 62 QTc 404 Conclusion SINUS RHYTHM Electronically signed by : SHIKHA OLVERA, 08/15/2023 19:29:44
[2023-08-15] MEDS: ASPIRIN 81MG CHEWABLE TABLET 324 MG PO (15:23)
[2023-08-15 15:27] LABS: VBG Base Excess -2.5 mmol/L (-2.4-2.3); VBG HCO3 24.2 mmol/L (23-30); VBG Oxygen Saturation 48.4 % (50-70); VBG PH 7.29 mmol/L (7.31-7.41); VBG PO2 30.5 mmol/L (28-40); VBG Total CO2 25.8 mmol/L (23-27)
[2023-08-15 15:28] LABS: Basophils % 0.8 % (0.1-2.0); Eosinophils # 0.3 K/mm3 (0.0-0.4); Eosinophils % 5.7 % (0.1-12.0); Hematocrit 34.2 % (42.0-52.0); Hemoglobin 10.5 g/dL (14.1-18.0); Lymphocytes # 0.3 K/mm3 (0.7-4.5); Lymphocytes % 5.8 % (10-50); Mean Corpuscular HGB Conc 30.8 g/dL (31.8-35.4); Mean Corpuscular Hemoglobin 29.3 pg (27.0-31.2); Mean Platelet Volume 8.5 fl (7.4-10.4); Monocytes # 0.1 K/mm3 (0.1-1.0); Neutrophils # 4.7 K/mm3 (1.8-7.8); Neutrophils % 85.7 % (37.0-80.0); Platelet Count 260 K/mm3 (142-424); Red Cell Distribution Width 16.3 % (11.5-17.5); White Blood Count 5.5 K/mm3 (4.8-10.8)
[2023-08-15 15:29] LABS: Lactate Venous 2.3 mmol/L (0.4-2.0)
[2023-08-15 15:35] LABS: MANUAL DIFFERENTIAL MANUAL DIFFERENTIAL (MANUAL DIFF)
[2023-08-15 15:38] LABS: Chol/HDL Ratio 3.9 (1-3.5); Cholesterol 109 mg/dl (140-200); HDL Cholesterol 28 mg/dl (40-60); Triglycerides 218 mg/dl (30-150); VLDL Cholesterol 44 mg/dL (0-40)
[2023-08-15 15:39] LABS: Alanine Aminotransferase 23 U/L (12-78); Albumin Level 4.3 g/dl (3.5-5.0); Albumin/Globulin Ratio 1.2 (1.1-1.8); Alkaline Phosphatase 72 U/L (38-126); Anion Gap 13.9 mEq/L (5-15); Aspartate Amino Transferase 27 U/L (17-59); Bilirubin,Total 0.3 mg/dl (0.2-1.3); Blood Urea Nitrogen 47 mg/dl (9-20); Calcium 9.4 mg/dl (8.4-10.2); Carbon Dioxide 29 mmol/L (22.0-30.0); Chloride 102 mmol/L (98-107); Estimated Glomerular Filt Rate 27 ml/min (>60); GFR (African American) 32 ML/MIN (>60); Globulin 3.7 g/dL (1.3-3.2); Glucose 104 mg/dl (74-100); Lactic Acid 1.3 mmol/L (0.7-2.1); Lipase 82 U/L (23-300); Potassium 4.9 mmoL/L (3.5-5.1); Sodium 140 mmol/L (136-145)
--- NOTE | 2023-08-15 15:42 | PC.NURSE ---
pt placed on bipap at 15:20
[2023-08-15 15:48] LABS: NT Pro Brain Natriuretic Pep. 469 pg/mL (0-125)
[2023-08-15 15:49] LABS: Direct LDL Cholesterol 49.49 mg/dL (100-129)
--- NOTE | 2023-08-15 15:52 | HMH.EDCP ---
Discharge Plan Disposition Patient Disposition: Home, Self-Care Prescriptions Prescriptions: New amoxicillin-pot clavulanate 875-125 mg tablet 1 tab PO BID 5 Days Qty: 10 0RF azithromycin 500 mg tablet 500 mg PO DAILY 2 Days Qty: 2 0RF Rx Instructions: start on day 2 of therapy prednisone 20 mg tablet 40 mg PO DAILY 5 Days Qty: 10 0RF No Action hydrocodone-acetaminophen 5-325 mg tablet 1 tab PO BID 30 Days Qty: 60 0RF fluticasone propionate [Flonase Allergy Relief] 50 mcg/actuation spray,suspension 1 spray intranasal DAILY Qty: 10 2RF Rx Instructions: administer into each nostril cetirizine 10 mg tablet 10 mg PO DAILY atorvastatin 10 mg tablet 10 mg PO HS metoprolol succinate 200 mg tablet extended release 24 hr 200 mg PO DAILY isosorbide mononitrate 30 mg tablet extended release 24 hr 30 mg PO DAILY oxcarbazepine 300 mg tablet 300 mg PO BID tamsulosin 0.4 mg capsule 0.4 mg PO HS amlodipine 10 mg tablet 10 mg PO DAILY ferrous sulfate 325 mg (65 mg iron) tablet 325 mg PO DAILY triamterene-hydrochlorothiazid 37.5-25 mg tablet 1 tab PO DAILY omeprazole 20 mg capsule,delayed release(DR/EC) 20 mg PO DAILY aspirin 81 mg tablet,chewable 81 mg PO DAILY escitalopram oxalate 10 mg tablet 10 mg PO DAILY Trelegy Ellipta 100-62.5-25 mcg blister with device 1 inh INHALATION DAILY multivitamin Tablet 1 tab PO DAILY timolol maleate 0.5 % drops 1 drp ophthalmic (eye) DAILY acetaminophen 500 mg Capsule 500 mg PO Q4HP PRN (Reason: pain/fever) lidocaine 5 % Adhesive Patch,Medicated 1 patch topical Q24H 30 Days Qty: 30 0RF Activity Restrictions/Add. Instructions Additional Instructions/Restrictions: Augmentin for 5 days twice daily, azithromycin each morning for 2 days. Prednisone each morning for 5 days. Call your family doctor to establish care for this visit to the emergency department and schedule follow-up within 48 hours to ensure improvement. If you have any worsening of your condition or any other concerning signs or symptoms, return to the emergency department or your primary care doctor for further evaluation. Wear 2 L of nasal cannula oxygen [id number] during duration of treatment. Clinical Impressions Clinical Impression: Acute exacerbation of chronic obstructive pulmonary disease, Pneumonia, Acute on chronic respiratory failure with hypoxemia Instructions Patient Instructions: DI for Acute Abdominal Pain Discharge ED Provider: Roscoe Segal HPI General Chief Complaint: Abdominal Pain Stated Complaint: abd pain Time Seen by Provider: 08/15/23 15:10 History of Present Illness HPI narrative: Please note that above description of symptoms, in this electronic medical record under categorization of recalled from ER triage doctor by RN are reflective of an initial nursing assessment, however, is not reflective of my full history and physical exam that was personally taken and clarified. Consequentially, this preceding description of symptoms, which may include the patient's categorized chief complaint in the EMR, do not reflect my personal clinical impression, and the ultimate description of history of present illness and patient stated complaints should be deferred to this section of the note. Unless stated otherwise or congruent with this section of the note, additional signs, symptoms, or incongruence should be interpreted as inaccurate with my clinical impression. Related Data Home Medications Medication Instructions Recorded Confirmed amlodipine 10 mg tablet 10 mg PO DAILY 06/09/23 07/26/23 aspirin 81 mg chewable tablet 81 mg PO DAILY 06/09/23 07/26/23 atorvastatin 10 mg tablet 10 mg PO 06/09/23 07/26/23 cetirizine 10 mg tablet 10 mg PO DAILY 06/09/23 07/26/23 escitalopram oxalate 10 mg tablet 10 mg PO DAILY 06/09/23 07/26/23 ferrous sulfate 325 mg (65 mg 325 mg PO DAILY 06/09/23 07/26/23 iron) tablet fluticasone fur. 100 mcg-umeclid 1 inh inhalation DAILY 06/09/23 07/26/23 62.5 mcg-vilant 25 mcg inhalat.powder (Trelegy Ellipta) isosorbide mononitrate 30 mg 30 mg PO DAILY 06/09/23 07/26/23 tablet,extended release 24 hr metoprolol succinate 200 mg 200 mg PO DAILY 06/09/23 07/26/23 tablet,extended release 24 hr omeprazole 20 mg capsule,delayed 20 mg PO DAILY 06/09/23 07/26/23 release oxcarbazepine 300 mg tablet 300 mg PO BID 06/09/23 07/26/23 tamsulosin 0.4 mg capsule 0.4 mg PO HS 06/09/23 07/26/23 triamterene 37.5 1 tab PO DAILY 06/09/23 07/26/23 mg-hydrochlorothiazide 25 mg tablet acetaminophen 500 mg capsule 500 mg PO Q4HP PRN pain/fever 06/10/23 07/26/23 multivitamin 1 tab PO DAILY 06/10/23 07/26/23 timolol maleate 0.5 % eye drops 1 drp ophthalmic (eye) DAILY 06/10/23 07/26/23 Previous Rx's Medication Instructions Recorded lidocaine 5 % topical patch 1 patch topical Q24H 30 days #30 ea 06/10/23 hydrocodone 5 mg-acetaminophen 325 1 tab PO BID Pain 30 days #60 tabs 06/29/23 mg tablet fluticasone propionate 50 1 spray intranasal DAILY #10 mL 08/02/23 mcg/actuation nasal spray,suspension (Flonase Allergy Relief) amoxicillin 875 mg-potassium 1 tab PO BID 5 days #10 tabs 08/15/23 clavulanate 125 mg tablet azithromycin 500 mg tablet 500 mg PO DAILY 2 days #2 tabs 08/15/23 prednisone 20 mg tablet 40 mg (2 x 20 mg) PO DAILY 5 days 08/15/23 #10 tabs Allergies Allergy/AdvReac Type Severity Reaction Status Date / Time No Known Allergies Allergy Verified 07/26/23 16:14 [facility] Disclaimer: The information contained in this section may have been updated after the patient was seen, as this information can be updated by other users. Medical History Urinary retention CKD (chronic kidney disease) UTI (urinary tract infection) due to urinary indwelling Jason catheter Atypical angina Acute respiratory failure with hypoxia Stopped smoking with greater than 30 pack year history Pulmonary emphysema Nodule of left lung Atypical pneumonia CVA (cerebral vascular accident) Blind Congestive heart failure Chronic renal failure, stage 3 (moderate) Renal stones Gastroesophageal reflux 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) Encephalomalacia CVA (cerebral vascular accident) Overweight (BMI 25.0-29.9) Obesity (BMI 30.0-34.9) Visual impairment Elevated left ventricular end-diastolic pressure (LVEDP) Diastolic dysfunction Pulmonary HTN Surgical History History of bronchoscopy History of ureteroscopy History of colonoscopy History of colectomy Family History Unknown Cancer self; post lung, prostate, and colon Other Family history of cancer Social History Smoking Status: Never smoker alcohol intake: never substance use type: denies use current occupational status: disabled Travel in the last 8 weeks: None caregiver/support person: Yes household members: none housing: skilled nursing lives independently: No marital status: single current occupation: [employer] current occupational exposures/hazards: No caffeine: Yes special milad needs: No agree to transfusion: No do you feel safe at home: Yes victim of physical abuse: No victim of emotional abuse: No victim of sexual abuse: No would you like helpful sources: No ROS Obtained: Yes All systems reviewed & no additional complaints except as documented Physical Exam General General appearance: alert and in distress (Respiratory. Breathing through pursed lips, uncomfortable appearing, tachypneic) ENT ENT exam: Present mucous membranes moist Neck Neck exam: Present trachea midline Chest Chest inspection: Present normal inspection and symmetric chest wall rise Respiratory Respiratory exam: Present normal lung sounds bilaterally, wheezes, accessory muscle use and prolonged expiratory phase; Absent respiratory distress or stridor Cardiovascular Cardiovascular exam: Present regular rate and normal rhythm Abdominal Exam Abdominal exam: Present distention, tenderness and guarding; Absent rebound or rigidity Abdominal tenderness: Present diffuse and moderate Extremities Exam Extremities exam: Present edema (Bilateral 2+ lower extremity) Neurological Exam Neurological exam: Present alert, oriented X3 and CN II-XII intact Skin Skin exam: Present warm and dry; Absent cyanosis, diaphoresis or pallor HEART Score HEART Score HEART Score assessment performed?: Yes History (anamnesis): Slightly suspicious ECG: Normal Age: >65 years Risk factors: 3 or more risk factors Troponin: </= normal limit HEART Score: 4 Critical Care Critical Care Time Critical Care Time: No Medical Decision Making Medical Records Medical records reviewed: Yes I reviewed the patient's medical records. River Inquiry Pt receiving controlled substance: No River was queried for this patient: No Vital Signs Vital Signs: 08/15/23 15:36 08/15/23 16:19 08/15/23 16:31 Temperature 98.2 F Temperature Source Oral Pulse Rate 69 68 Pulse Rate [Left Radial] 70 Respiratory Rate 20 Blood Pressure 140/74 133/68 Blood Pressure [Right Arm] 138/85 Blood Pressure Mean Blood Pressure Mean [Right Arm] 102 02 Sat by Pulse Oximetry 98 100 100 Oxygen Delivery Method Room Air BiPAP BiPAP 08/15/23 17:00 08/15/23 17:30 08/15/23 18:01 Temperature Temperature Source Pulse Rate 68 68 68 Pulse Rate [Left Radial] Respiratory Rate Blood Pressure 129/70 122/67 129/72 Blood Pressure [Right Arm] Blood Pressure Mean 80 Blood Pressure Mean [Right Arm] 02 Sat by Pulse Oximetry 98 97 98 Oxygen Delivery Method Room Air Room Air Lab Data Labs: Lab Results 08/15/23 15:14: WBC 5.5, RBC 3.60 L, Hgb 10.5 L, Hct 34.2 L, MCV 95.0 H, MCH 29.3, MCHC 30.8 L, RDW 16.3, Plt Count 260, MPV 8.5, Neut % (Auto) 85.7 H, Lymph % (Auto) 5.8 L, Evans % (Auto) 2.0, Eos % (Auto) 5.7, Baso % (Auto) 0.8, Neut # (Auto) 4.7, Lymph # (Auto) 0.3 L, Evans # (Auto) 0.1, Eos # (Auto) 0.3, Baso # (Auto) 0.0, Total Counted 100, Neutrophils % (Manual) 87 H, Lymphocytes % (Manual) 7 L, Monocytes % (Manual) 1 L, Eosinophils % (Manual) 5 H, Platelet Estimate Normal, RBC Morphology Normal, PT 11.6, INR 1.08, VBG pH 7.29 L, VBG pCO2 52.0 H, VBG pO2 30.5, VBG HCO3 24.2, VBG Total CO2 25.8, VBG O2 Saturation 48.4 L, VBG Base Excess -2.5 L, VBG Lactic Acid 2.3 H, Sodium 140, Potassium 4.9, Chloride 102, Carbon Dioxide 29, Anion Gap 13.9, BUN 47 H, Creatinine 2.40 H, Estimated GFR 27 L, Est GFR ( Amer) 32 L, Glucose 104 H, Hemoglobin A1c 5.9, Lactate 1.3, Calcium 9.4, Total Bilirubin 0.3, AST 27, ALT 23, Alkaline Phosphatase 72, Troponin I < 0.01, NT-Pro-B Natriuret Pep 469 H, Total Protein 8.0, Albumin 4.3, Globulin 3.7 H, Albumin/Globulin Ratio 1.2, Triglycerides 218 H, Cholesterol 109 L, LDL Cholesterol Direct 49.49 L, VLDL Cholesterol 44 H, HDL Cholesterol 28 L, Cholesterol/HDL Ratio 3.9 H, Lipase 82, Procalcitonin 0.284 08/15/23 15:14 08/15/23 15:14 Response Orders (Tests/Meds): ED MEDICATIONS Discontinued Medications Generic Name Dose Route Start Last Admin Trade Name Freq PRN Reason Stop Dose Admin Albuterol/Ipratropium 9 ml 08/15/23 15:49 08/15/23 16:15 Ipratropium/Albuterol 3 Ml Neb IH 08/15/23 15:50 9 ml ONCE ONE Administration Aspirin 324 mg 08/15/23 15:17 08/15/23 15:23 Aspirin 81mg Chewable Tablet PO 08/15/23 15:18 324 mg ONCE ONE Administration Azithromycin 500 mg 08/15/23 18:29 Azithromycin 250mg Tablet PO 08/15/23 18:30 ONCE ONE Cefdinir 300 mg 08/15/23 18:29 Cefdinir 300mg Capsule PO 08/15/23 18:30 ONCE ONE Iopamidol 100 ml 08/15/23 16:06 08/15/23 16:09 Iopamidol-370 (76%);100ml Bottle IV 08/15/23 16:07 100 ml ONCE ONE Administration Methylprednisolone Sodium Succinate 125 mg 08/15/23 15:49 08/15/23 16:35 Methylprednisolone Sod Succ 125mg Vial IV 08/15/23 15:50 125 mg ONCE ONE Administration Sodium Chloride 10 ml 08/15/23 16:06 08/15/23 16:09 Sodium Chloride 0.9% 10ml Syr (Rad Only) IV 08/15/23 16:07 10 ml ONCE ONE Administration Sodium Chloride 50 ml 08/15/23 16:06 08/15/23 16:08 0.9 % Sodium Chloride 50 Ml Vial IV 08/15/23 16:07 50 ml ONCE ONE Administration ORDERS Category Date Time Status CT angio abdomen pelvis Stat Cat Scan 08/15/23 15:[address] angio chest PE protocol Stat Cat Scan 08/15/23 15:17 Completed POCUS Point of Care (ER Only) Stat Exams 08/15/23 15:18 Completed XR chest portable Stat Exams 08/15/23 15:18 Completed Complete Blood Count Auto Diff Stat Lab 08/15/23 15:14 Completed Comprehensive Metabolic Panel Stat Lab 08/15/23 15:14 Completed Hemoglobin A1C Stat Lab 08/15/23 15:14 Completed Lactic Acid Stat Lab 08/15/23 15:14 Completed Lipase Stat Lab 08/15/23 15:14 Completed Lipid Panel Stat Lab 08/15/23 15:14 Completed NT Pro Brain Natriuretic Pep. Stat Lab 08/15/23 15:14 Completed PT INR [Prothrombin Time INR] Stat Lab 08/15/23 15:14 Completed Procalcitonin Stat Lab 08/15/23 15:14 Completed Troponin I Q3H Lab 08/15/23 18:32 Received Troponin I Q3H Lab 08/15/23 21:30 Ordered Troponin I Stat Lab 08/15/23 15:14 Completed UA [Urinalysis and Microscopic] Stat Lab 08/15/23 18:39 Received Blood Culture Stat Micro 08/15/23 15:26 Received Venous Blood Gas Stat RT 08/15/23 15:14 Completed MDM Narrative Medical Decision Narrative: 72-year-old male history of hypertension, hyperlipidemia, CKD, COPD/emphysema, CVA with residual blindness, CHF presenting with shortness of breath and abdominal pain. Patient states that all the symptoms started this morning after he woke up. No chest pain, but he is short of breath. It is nonexertional, nonpositional. Abdominal pain is diffuse, but primarily left-sided, associated with nausea without vomiting. Unsure if he still passing gas. Patient is poor historian and unable to remember last bowel movement. It should be noted that patient has been very little clinical insight, which is complicating current presentation and medical care. History was obtained via conversation with patient and chart review, EMS. On arrival, patient hemodynamically stable, alert, oriented x4, appropriate, GCS 15, moving all extremities spontaneously, pupils equal and reactive to light. Full physical exam performed and significant for acute on chronically ill-appearing male who is in mild respiratory distress. Tachypneic, breathing through pursed lips, speaking in 1-2 word sentences. He does have wheezes primarily in lower lung teran. Cardiac exam nonfocal. Pulses are equal and symmetric bilateral upper and lower extremities, no pulsatile abdominal mass, but difficult to appreciate given level of distention and tenderness. Abdomen is moderately to severely tender diffusely, worse on the left side overlying hernias. No overlying skin changes. He does have a midline abdominal surgical incision, but unable to tell me what this was for. Differential includes PUD, gastritis, enteritis, gastroenteritis, pancreatitis, SBO, colitis, diverticulitis, nephrolithiasis, UTI, cholecystitis, choledocholithiasis, appendicitis, torsion, hepatitis, aortic pathology, mesenteric ischemia, CHF, ACS, DE, thoracic aortic dissection, PE, pneumothorax pneumonia, among others. Patient was given BiPAP shortly after initial evaluation, aspirin, DuoNebs and Solu-Medrol for symptomatic management and correction of underlying abnormalities. Workup independently interpreted and significant for nonactionable CBC with stable counts. Nonactionable coagulation factors. VBG largely nonactionable with pH 7.3, CO2 52, oxygen normal, bicarb normal, lactic acid 2.3. Chemistry with stable kidney function, troponin negative, BNP 500. Lipase negative, Pro-Ajay negative. CTA of the chest with concern for pneumonia. No dissection or pulmonary embolus. CTA of the abdomen and pelvis with stable hernias, no evidence of obstruction. No aortic or vascular injury. See radiology read for full review of final results. Independent interpretation of EKG shows sinus rhythm 65 beats a minute without ST or T wave changes concerning for acute ischemia. [place] prolonged at 207, QRS 127, QTc 404. Leftward axis. Patient placed on continuous cardiac monitoring and continuous pulse ox with initial blood pressure 138/85, heart rate 70, saturation 98% on room air, but tachypneic with increased work of breathing. Heart score 4. Patient was given cefdinir and azithromycin, BiPAP was removed. Patient states that he is breathing easier after nebs and Solu-Medrol. On reevaluation, patient feeling much better, 90% on 2 L nasal cannula, which he has at skilled nursing. Given patient's clinical history and physical exam, this most likely represents COPD exacerbation in the setting of pneumonia. Because patient at baseline without signs or symptoms of clinical decompensation, deemed appropriate for discharge. Results were relayed to patient who voiced understanding and were agreeable to outpatient management and follow up. I discussed my clinical impression with patient and answered all questions. At this time, the evidence for any other entities in the differential is insufficient to warrant any further testing or ED observation. This was explained as well. Advisory was given that persistent or worsening symptoms require further evaluation. I confirmed the understanding of this discussion. Park Worker disclaimer Much of this encounter note is an electronic linux kernel developer spoken language to printed text. Electronic linux kernel developer of the spoken language may permit errors. Although I have reviewed the note, some errors may still exist.
[2023-08-15 15:55] LABS: Procalcitonin 0.284 ng/mL (0.0-2.0)
[2023-08-15 15:56] LABS: INR 1.08 (0.9-1.1); Prothrombin Time 11.6 seconds (10.1-12.5)
[2023-08-15 15:58] LABS: Troponin I < 0.01 ng/ml (0.00-0.034)
[2023-08-15] MEDS: 0.9 % SODIUM CHLORIDE 50 ML VIAL IV (16:08)
[2023-08-15] MEDS: SODIUM CHLORIDE 0.9% 10ML SYR (RAD ONLY) 10 ML IV (16:09)
[2023-08-15] MEDS: IOPAMIDOL-370 (76%);100ML BOTTLE 100 ML IV (16:09)
[2023-08-15] MEDS: IPRATROPIUM/ALBUTEROL 3 ML NEB 9 ML IH (16:15)
[2023-08-15 16:17] LABS: Eosinophils % 5 % (0-3); Lymphocytes % 7 % (10-50); Monocytes % 1 % (2-9); Neutrophils % 87 % (42-76); Total Cells Counted 100
[2023-08-15 16:24] LABS: RBC Morphology Normal
[2023-08-15 16:27] LABS: Platelet Estimate Normal
[2023-08-15] MEDS: METHYLPREDNISOLONE SOD SUCC 125MG VIAL 125 MG IV (16:35)
[2023-08-15 16:48] LABS: Hemoglobin A1C 5.9 % (4.0-6.0)
--- NOTE | 2023-08-15 17:25 | PC.NURSE ---
Updated Mariam from [place]
--- NOTE | 2023-08-15 18:45 | PC.NURSE ---
pt voided via urinal with x1 assist
[2023-08-15 18:47] LABS: Microscopic, Urine URINE MICROSCOPIC (MICROSCOPIC)
--- NOTE | 2023-08-15 19:01 | PC.NURSE ---
report called to [facility]
[2023-08-15] MEDS: AZITHROMYCIN 250MG TABLET 500 MG PO (19:05)
[2023-08-15] MEDS: CEFDINIR 300MG CAPSULE 300 MG PO (19:05)
[2023-08-15 19:09] LABS: Appearance,Urine SL CLOUDY (Clear); Bilirubin,Urine Negative (Negative); Blood, Urine 1+ (Negative); Color,Urine YELLOW (Yellow); Glucose,Urine (UA) Negative (Negative); Ketones,Urine Negative (Negative); Leukocyte Esterase,Urine 2+ (Negative); Nitrate,Urine Negative (Negative); PH,Urine 6.5 (5.0-8.5); Protein,Urine 1+ (Negative); Urobilinogen,Urine 0.2 EU/dl (0.2)
[2023-08-15 19:21] LABS: Troponin I < 0.01 ng/ml (0.00-0.034)
[2023-08-15 19:28] LABS: Reflex Lactic Add Lactic Reflex
[2023-08-15 19:31] LABS: Bacteria,Urine 3+ /lpf; WBC,Urine 20-50 #/hpf (0-3)
[2023-08-15 20:28] LABS: Lactic Acid Follow Up (RFLX 1) 1.5 mmol/L (0.7-2.1)
--- NOTE | 2023-08-16 09:22 | PC.NURSE ---
discussed urine culture with , pt dc with augmentin and azithromycin, ntd
--- NOTE | 2023-08-17 09:53 | PC.NURSE ---
DISCUSSED URINE CULTURE WITH DR OLVERA, NEW ORDERS FOR IV GENT. SPOKE WITH SEAN AT [facility], WILL DISCUSS WITH DR LEE. PT WILL BENEFIT FROM PICC LINE SPOKE WITH DR LEE, DISCUSSED PICC PLACEMENT, WILL ORDER FOR PT SPOKE WITH HERMINIO IN OUTPT [facility] TO DISCUSS POC FOR PT.
== END 2023-08-15 20:52 | disposition home or self-care (01) ==
PROVIDERS: Emergency Provider Emergency Medicine
DX: J96.21 Acute and chronic respiratory failure with hypoxia (principal); J44.1 Chronic obstructive pulmonary disease with (acute) exacerbation; J18.9 Pneumonia, unspecified organism; R10.84 Generalized abdominal pain; B96.1 Klebsiella pneumoniae [K. pneumoniae] as the cause of diseases classified elsewhere; N18.30 Chronic kidney disease, stage 3 unspecified; I11.0 Hypertensive heart disease with heart failure; I50.9 Heart failure, unspecified; E78.5 Hyperlipidemia, unspecified; Z86.73 Personal history of transient ischemic attack (TIA), and cerebral infarction without residual deficits; Z99.2 Dependence on renal dialysis; Z87.891 Personal history of nicotine dependence
CPT/HCPCS: 36415; 71045; 71275; 74174; 80053; 80061; 81001; 82803; 83036; 83605; 83690; 83880; 84145; 84484; 85007; 85025; 85610; 87040; 87086; 87088; 87186; 93005; 96374; 99285; Q9967

== ENCOUNTER 2023-09-28 10:10 | Outpatient (CLI) | payer MEDICARE, MEDICAID, SELFPAY ==
--- NOTE | 2023-09-28 10:15 | US_ITS ---
FINAL REPORT CLINICAL HISTORY: CKD STAGE 4 COMPARISON: None FINDINGS: RENAL ULTRASOUND Ultrasound images of the kidneys were obtained. The right kidney is enlarged measuring 16.8 cm in length. There are multiple simple renal cysts. No hydronephrosis. The left kidney is enlarged measuring 17.1 cm in length. There are multiple renal cysts. There is no hydronephrosis. IMPRESSION: Enlarged kidneys with multiple bilateral renal cysts. Consider polycystic kidney disease. Reviewed, Interpreted and Dictated by Gale Mcneill MD Transcribed by Sayra Bliss Authenticated and [facility]
== END 2023-09-28 23:59 | disposition home or self-care (01) ==
LOC: RAD 10:11
PROVIDERS: PCP Family Medicine; Visit Provider Internal Medicine Nephrology
DX: N18.4 Chronic kidney disease, stage 4 (severe) (principal); Q61.3 Polycystic kidney, unspecified
CPT/HCPCS: 76770

== ENCOUNTER 2023-11-09 11:00 | Outpatient (CLI) | payer MEDICARE, MEDICAID, SELFPAY ==
--- NOTE | 2023-11-09 11:02 | CA_ITS ---
FINAL REPORT TECHNIQUE: extremity venous duplex was performed in the left leg with augmentation and compression. CLINICAL HISTORY: edema COMPARISON: None FINDINGS: Proper flow is seen throughout the deep venous system of the left leg. There is no evidence of deep venous thrombosis. IMPRESSION: no deep venous thrombosis, left lower extremity. Reviewed, Interpreted and Dictated by Primitivo Rodriguez MD Transcribed by Danisha Manzanares Authenticated and [facility]
--- NOTE | 2023-11-09 11:02 | CA_ITS ---
FINAL REPORT TECHNIQUE: extremity venous duplex was performed in the right lower extremity with augmentation and compression. CLINICAL HISTORY: peripheral edema COMPARISON: None FINDINGS: Proper flow is seen throughout the deep venous system of the right lower extremity. There is no evidence of deep venous thrombosis. IMPRESSION: no deep venous thrombosis in the right lower extremity. Reviewed, Interpreted and Dictated by Primitivo Rodriguez MD Transcribed by Danisha Manzanares Authenticated and . [facility]
== END 2023-11-09 23:59 | disposition home or self-care (01) ==
LOC: RT 11:02
PROVIDERS: PCP Family Medicine; Visit Provider Family Medicine
DX: R60.0 Localized edema (principal); Z79.899 Other long term (current) drug therapy
CPT/HCPCS: 93970; 93971

== ENCOUNTER 2023-11-16 12:55 | Outpatient (CLI) | payer MEDICARE, MEDICAID, SELFPAY ==
--- NOTE | 2023-11-16 13:03 | CT_ITS ---
FINAL REPORT TECHNIQUE: Axial CT images were performed from the lung apices through the upper abdomen. Coronal and sagittal reformats were submitted. This study was performed with techniques to keep radiation doses as low as reasonably achievable (ALARA). Individualized dose reduction techniques using automated exposure control or adjustment of mA and/or kV according to the patient's size were employed. CLINICAL HISTORY: LUNG CANCER COMPARISON: 08/15/2023 FINDINGS: There is no axillary adenopathy. There are left mediastinal nodes that are mildly enlarged, visually stable since the prior exam. Heart size is normal. Severe left coronary artery calcifications are noted. There is no pericardial or pleural effusion. There is worsening of the posterior left upper lobe masslike infiltrate, on today's exam measuring 33 x 25 mm, was previously 16 mm in size. There is significant increase is worrisome for neoplasm, although infiltrate is not totally excluded. Moderate changes of emphysema are present. In the upper abdomen there are multiple presumed hepatic cysts, with postoperative change near the hepatic flexure and multiple chronic right rib fractures. The multiple low-attenuation masses in the liver are of uncertain etiology, however are stable since the prior CT. IMPRESSION: Worsening posterior left upper lobe masslike infiltrate, on today's exam measuring 33 x 25 mm in size, was previously 16 mm in size. The significant enlargement is worrisome for neoplasm, though infiltrate is not totally excluded. Recommend PET/CT or biopsy for further evaluation. Multiple low-attenuation masses in the liver, of uncertain etiology, however stable since the prior CT. Reviewed, Interpreted and Dictated by Ger Andrews III, MD Transcribed by Danisha Manzanares Authenticated and [facility]
[2023-11-16 13:22] LABS: Blood Urea Nitrogen 59 mg/dl (9-20); Estimated Glomerular Filt Rate 18 ml/min (>60); GFR (African American) 21 ML/MIN (>60)
== END 2023-11-16 23:59 | disposition home or self-care (01) ==
PROVIDERS: PCP Family Medicine; Visit Provider Internal Medicine Medical Oncology
DX: C34.90 Malignant neoplasm of unspecified part of unspecified bronchus or lung (principal)
CPT/HCPCS: 36415; 71250; 82565; 84520

== ENCOUNTER 2023-12-01 09:41 | Outpatient (POV) | payer MEDICARE, MEDICAID, SELFPAY | END 2023-12-01 23:59 | disposition home or self-care (01) | LOC: SC 09:42 | PROVIDERS: Visit Provider Student in an Organized Health Care Education/Training Program | DX: Z00.00 Encounter for general adult medical examination without abnormal findings (principal) ==

== ENCOUNTER 2023-12-14 10:43 | Emergency (ER) | payer MEDICARE, MEDICAID, SELFPAY ==
[2023-12-14] VITALS (11 sets, daily range): BP systolic 129–151; BP diastolic 72–92; PULSE 52–68; RESP 16–18; TEMP 36.7–36.8; O2SAT 94–98; BMI 32.7
[2023-12-14 11:13] LABS: Albumin Level 4.1 g/dl (3.5-5.0); Chloride 105 mmol/L (98-107); Potassium 4.6 mmoL/L (3.5-5.1); Sodium 141 mmol/L (136-145)
[2023-12-14 11:16] LABS: Alanine Aminotransferase 15 U/L (12-78); Albumin/Globulin Ratio 1.2 (1.1-1.8); Alkaline Phosphatase 63 U/L (38-126); Anion Gap 13.6 mEq/L (5-15); Aspartate Amino Transferase 20 U/L (17-59); Bilirubin,Total 0.4 mg/dl (0.2-1.3); Blood Urea Nitrogen 67 mg/dl (9-20); Calcium 9.4 mg/dl (8.4-10.2); Carbon Dioxide 27 mmol/L (22.0-30.0); Creatinine Clearance Estimated 44 mL/min (50-200); Estimated Glomerular Filt Rate 25 ml/min (>60); GFR (African American) 31 ML/MIN (>60); Globulin 3.4 g/dL (1.3-3.2); Glucose 91 mg/dl (74-100); Total Protein,Serum 7.5 g/dl (6.3-8.2)
--- NOTE | 2023-12-14 11:23 | CT_ITS ---
FINAL REPORT TECHNIQUE: After the administration of intravenous contrast, axial images were obtained through the abdomen and pelvis by computed tomography. The study was performed with techniques to keep radiation dose as low as reasonably achievable, (ALARA). Individual dose reduction techniques using automated exposure control or adjustment of mA and/or kV according to the patient's size were employed. CLINICAL HISTORY: ventral hernia non reducible, poss partial obs COMPARISON: 08/15/2023 FINDINGS: Abdomen: There is chronic scarring at the lung bases. There is a multitude of tiny low-attenuation structures throughout the liver consistent with benign cysts. The spleen, pancreas, and adrenals appear unremarkable. There is a multitude of cystic lesions throughout both kidneys measuring up to 4.8 cm. Appearance is consistent with polycystic kidney disease. Multiple bilateral nonobstructing kidney stones are noted. Individual stones measure up to 10 mm. The aorta is normal in caliber. There is a ventral hernia containing a loop of bowel. There is inflammatory reaction and fluid surrounding the herniated bowel. The bowel is dilated proximal to the hernia measuring up to 3.5 cm in diameter and decompressed distal to the hernia consistent with a partial obstruction. Pelvis: The appendix is unremarkable. The urinary bladder is incompletely distended. The wall of the urinary bladder is accentuated due to incomplete distention. There is no free fluid or adenopathy. IMPRESSION: Ventral hernia containing a loop of bowel and partial small bowel obstruction. Polycystic kidney disease. Multiple bilateral nonobstructing kidney stones. Reviewed, Interpreted and Dictated by Primitivo Rodriguez MD Transcribed by Sayra Bliss Authenticated and [facility]
[2023-12-14 11:36] LABS: Lipase 63 U/L (23-300)
--- NOTE | 2023-12-14 11:41 | PC.NURSE ---
RADIOLOGY CALLED FOR GFR OF 25. ER MD SAID TO PROCEED WITH SCANS. RADIOLOGY AWARE.
[2023-12-14 11:44] LABS: Basophils % 0.5 % (0.1-2.0); Eosinophils # 0.3 K/mm3 (0.0-0.4); Eosinophils % 4.9 % (0.1-12.0); Hematocrit 32.9 % (42.0-52.0); Hemoglobin 9.9 g/dL (14.1-18.0); Lymphocytes # 0.8 K/mm3 (0.7-4.5); Lymphocytes % 15.2 % (10-50); Mean Corpuscular HGB Conc 30.1 g/dL (31.8-35.4); Mean Corpuscular Hemoglobin 28.4 pg (27.0-31.2); Mean Corpuscular Volume 94.2 fl (80-94); Mean Platelet Volume 7.6 fl (7.4-10.4); Monocytes # 0.3 K/mm3 (0.1-1.0); Monocytes % 5.8 % (1.7-9.3); Neutrophils % 73.6 % (37.0-80.0); Platelet Count 236 K/mm3 (142-424); Red Blood Count 3.49 M/mm3 (4.60-6.20); Red Cell Distribution Width 16.6 % (11.5-17.5); White Blood Count 5.4 K/mm3 (4.8-10.8)
--- NOTE | 2023-12-14 11:44 | ECG_ITS ---
APPROVED REPORT Exam: Resting ECG HR:55 bpm ECG Measurements Heart Rate 55 AXES WI 220 P 36 QRSd 126 QRS -35 QT 426 T -5 QTc 416 Conclusion SINUS BRADYCARDIA WITH FIRST DEGREE AV BLOCK LEFT AXIS DEVIATION [QRS AXIS < -30] MODERATE INTRAVENTRICULAR CONDUCTION DELAY [110+ ms QRS DURATION] NONSPECIFIC T-WAVE ABNORMALITY ABNORMAL ECG Electronically signed by : PILAR KOENIG, 12/14/2023 14:34:35
--- NOTE | 2023-12-14 11:46 | HMH.EDGENADL ---
Discharge Plan Disposition Patient Disposition: Admitted Chief Complaint: Abdominal Pain Prescriptions Prescriptions: No Action albuterol sulfate 90 mcg/actuation HFA aerosol inhaler 1 puff inhalation Q6H Stiolto Respimat 2.5-2.5 mcg/actuation mist 2 inh inhalation Q24H lisinopril 5 mg tablet 5 mg PO DAILY escitalopram oxalate [Lexapro] 5 mg tablet 5 mg PO DAILY fluticasone propionate [Flonase Allergy Relief] 50 mcg/actuation spray,suspension 1 spray intranasal DAILY Qty: 10 2RF Rx Instructions: administer into each nostril hydrocodone-acetaminophen 5-325 mg tablet 1 tab PO BID 30 Days Qty: 60 0RF cetirizine 10 mg tablet 10 mg PO DAILY atorvastatin 10 mg tablet 10 mg PO HS metoprolol succinate 200 mg tablet extended release 24 hr 200 mg PO DAILY isosorbide mononitrate 30 mg tablet extended release 24 hr 30 mg PO DAILY oxcarbazepine 300 mg tablet 300 mg PO BID tamsulosin 0.4 mg capsule 0.4 mg PO HS amlodipine 10 mg tablet 10 mg PO DAILY ferrous sulfate 325 mg (65 mg iron) tablet 325 mg PO DAILY omeprazole 20 mg capsule,delayed release(DR/EC) 20 mg PO DAILY aspirin 81 mg tablet,chewable 81 mg PO DAILY multivitamin Tablet 1 tab PO DAILY timolol maleate 0.5 % drops 1 drp ophthalmic (eye) DAILY acetaminophen 500 mg Capsule 500 mg PO Q4HP PRN (Reason: pain/fever) lidocaine 5 % Adhesive Patch,Medicated 1 patch topical Q24H 30 Days Qty: 30 0RF Referrals Follow up/Referrals: Provider,Referral, MD [Primary Care Provider] - See instructions Clinical Impressions Clinical Impression: Incarcerated hernia, Partial obstruction of small intestine Stand Alone Forms Stand Alone Forms: Transfer Record - ED Instructions Patient Instructions: DI for Acute Abdominal Pain Print Language Print Language: Korean Discharge ED Provider: Cedric Hinton General Adult HPI General Chief complaint: Abdominal Pain Stated complaint: Small bowel obstruction Time Seen by Provider: 12/14/23 10:55 Mode of Arrival: EMS Source of Information: Patient and EMS Limitations: No Limitations Description of Symptoms (Recalled from ER Triage Doc. by RN): PT BROUGHT IN BY [facility] FROM [facility] [place] FOR A POSSIBLE SBO THAT WAS SEEN ON A PET SCAN BY THAT WAS DONE IN [place] A FEW DAYS AGO, PT STATES HE HAS OCCASIONAL PAIN IN HIS LOWER ABDOMEN, WORSE WHEN HE SITS UP, BETTER WHEN HE LAYS DOWN, STATES IT HAS BEEN GOING ON FOR 2 WEEKS, DENIES ANY PAIN AT THIS TIME, DENIES N/V/D History of Present Illness HPI narrative: PastPatient is a 73-year-old blind male with history of chronic respiratory failure with COPD on 2 L nasal cannula at baseline, lung cancer, remote history of colon cancer, previous kidney stones, CKD, CHF who presents to the emergency department for evaluation of imaging findings. Dr. Cano contacted me, patient's PET scan was read with concern for possible bowel obstruction. Due to him being a care home resident and incomplete history he referred him here for continued evaluation. I had the discussion about this with Dr. Cano and agree with this. Upon arrival patient states that he does not have any significant abdominal pain at rest however when you push on it it becomes significantly painful around his ventral hernia, his last bowel movement was last night nonbloody. No significant dysuria. No other acute complaints at this time. Per chart review he has a history of a colectomy and ureteroscopy. No chest pain. Related Data Home Medications ?Medication ?Instructions ?Recorded ?Confirmed amlodipine 10 mg tablet 10 mg PO DAILY 06/09/23 12/06/23 aspirin 81 mg chewable tablet 81 mg PO DAILY 06/09/23 12/06/23 atorvastatin 10 mg tablet 10 mg PO HS 06/09/23 12/06/23 cetirizine 10 mg tablet 10 mg PO DAILY 06/09/23 12/06/23 ferrous sulfate 325 mg (65 mg 325 mg PO DAILY 06/09/23 12/06/23 iron) tablet isosorbide mononitrate 30 mg 30 mg PO DAILY 06/09/23 12/06/23 tablet,extended release 24 hr metoprolol succinate 200 mg 200 mg PO DAILY 06/09/23 12/06/23 tablet,extended release 24 hr omeprazole 20 mg capsule,delayed 20 mg PO DAILY 06/09/23 12/06/23 release oxcarbazepine 300 mg tablet 300 mg PO BID 06/09/23 12/06/23 tamsulosin 0.4 mg capsule 0.4 mg PO HS 06/09/23 12/06/23 acetaminophen 500 mg capsule 500 mg PO Q4HP PRN pain/fever 06/10/23 12/06/23 multivitamin 1 tab PO DAILY 06/10/23 12/06/23 timolol maleate 0.5 % eye drops 1 drp ophthalmic (eye) DAILY 06/10/23 12/06/23 albuterol sulfate 90 mcg/actuation 1 puff inhalation Q6H 11/22/23 12/06/23 aerosol inhaler tiotropium 2.5 mcg-olodaterol 2.5 2 inh inhalation Q24H 11/22/23 12/06/23 mcg/actuation mist for inhalation (Stiolto Respimat) lisinopril 5 mg tablet 5 mg PO DAILY 11/29/23 12/06/23 escitalopram oxalate 5 mg tablet 5 mg PO DAILY 12/06/23 12/06/23 (Lexapro) Previous Rx's ?Medication ?Instructions ?Recorded lidocaine 5 % topical patch 1 patch topical Q24H 30 days #30 ea 06/10/23 fluticasone propionate 50 1 spray intranasal DAILY #10 mL 08/02/23 mcg/actuation nasal spray,suspension (Flonase Allergy Relief) hydrocodone 5 mg-acetaminophen 325 1 tab PO BID Pain 30 days #60 tabs 11/22/23 mg tablet Allergies Allergy/AdvReac Type Severity Reaction Status Date / Time No Known Allergies Allergy Verified 12/06/23 13:59 [facility] Disclaimer: The information contained in this section may have been updated after the patient was seen, as this information can be updated by other users. Medical History History of atrial fibrillation most recent EKG with sinus rhythm Knee pain Heart failure with preserved ejection fraction Peripheral edema Lung nodule Acute exacerbation of chronic obstructive pulmonary disease Acute on chronic respiratory failure with hypoxemia Malignant neoplasm of colon Adenocarcinoma of lung Chronic obstructive pulmonary disease Urinary retention CKD (chronic kidney disease) UTI (urinary tract infection) due to urinary indwelling Jason catheter Atypical angina Acute respiratory failure with hypoxia Stopped smoking with greater than 30 pack year history Pulmonary emphysema Nodule of left lung Atypical pneumonia CVA (cerebral vascular accident) Blind Congestive heart failure Chronic renal failure, stage 3 (moderate) Renal stones Gastroesophageal reflux 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) Encephalomalacia CVA (cerebral vascular accident) Overweight (BMI 25.0-29.9) Obesity (BMI 30.0-34.9) Visual impairment Elevated left ventricular end-diastolic pressure (LVEDP) Diastolic dysfunction Pulmonary HTN Surgical History History of bronchoscopy History of ureteroscopy History of colonoscopy History of colectomy Family History Unknown Cancer self; post lung, prostate, and colon Other Family history of cancer Social History Smoking Status: Former smoker tobacco type: cigarettes packs per day: 1 alcohol intake: never substance use type: denies use current occupational status: disabled Travel in the last 8 weeks: None caregiver/support person: Yes household members: none housing: care home lives independently: No marital status: single current occupation: [employer] current occupational exposures/hazards: No caffeine: Yes special milad needs: No agree to transfusion: No do you feel safe at home: Yes victim of physical abuse: No victim of emotional abuse: No victim of sexual abuse: No would you like helpful sources: No Other Medical History Have you received the Flu Vaccine for this season: No Have you received the Pneumonia Vaccine: Yes ROS Obtained: Yes Systems reviewed as appropriate & no additional complaints except as documented Physical Exam General General appearance: alert and in no apparent distress Head Head exam: atraumatic and normocephalic ENT ENT exam: Present mucous membranes moist Neck Neck exam: Present normal inspection Chest Chest inspection: Present normal inspection and symmetric chest wall rise Respiratory Respiratory exam: Present normal lung sounds bilaterally; Absent respiratory distress Cardiovascular Cardiovascular exam: Present regular rate and normal rhythm Abdominal Exam Abdominal exam: Present soft, tenderness and other (Large ventral abdominal wall hernia tender, nonreducible without overlying skin changes. Well-healed midline surgical scar) Extremities Exam Extremities exam: Present normal inspection Neurological Exam Neurological exam: Present alert Psychiatric Psychiatric exam: Present normal affect Skin Skin exam: Present warm and dry Medical Decision Making Medical Records Screening: Per USPSTF and CDC recommendations, given the prevalence of disease in our region, it is our hospital?s policy to screen for HIV and viral Hepatitis for all patients aged 18 and over and those with ongoing risk factors. [facility] In[facility] Pt receiving controlled substance: No Vital Signs: 12/14/23 10:44 12/14/23 11:00 12/14/23 11:30 Temperature 98.3 F Temperature Source Oral Pulse Rate 58 L 53 L Pulse Rate [Left Radial] 52 L Respiratory Rate 18 16 Blood Pressure 132/72 147/85 H Blood Pressure [Right Arm] 141/76 H Blood Pressure Mean 92 94 Blood Pressure Mean [Right Arm] 97 Blood Pressure Source [Right Arm] Automatic Cuff Blood Pressure Position [Right Arm] Sitting 02 Sat by Pulse Oximetry 94 L 96 96 Oxygen Delivery Method Nasal Cannula Oxygen Flow Rate (LPM) 2 12/14/23 12:31 12/14/23 13:00 12/14/23 13:30 Temperature Temperature Source Pulse Rate 60 57 L 57 L Pulse Rate [Left Radial] Respiratory Rate 18 Blood Pressure 148/84 H 141/81 H 145/83 H Blood Pressure [Right Arm] Blood Pressure Mean 95 Blood Pressure Mean [Right Arm] Blood Pressure Source [Right Arm] Blood Pressure Position [Right Arm] 02 Sat by Pulse Oximetry 97 98 97 Oxygen Delivery Method Room Air Oxygen Flow Rate (LPM) 12/14/23 14:00 Temperature Temperature Source Pulse Rate 56 L Pulse Rate [Left Radial] Respiratory Rate Blood Pressure 141/81 H Blood Pressure [Right Arm] Blood Pressure Mean Blood Pressure Mean [Right Arm] Blood Pressure Source [Right Arm] Blood Pressure Position [Right Arm] 02 Sat by Pulse Oximetry 97 Oxygen Delivery Method Room Air Oxygen Flow Rate (LPM) Lab Data Lab Results 12/14/23 10:55: WBC 5.4, RBC 3.49 L, Hgb 9.9 L, Hct 32.9 L, MCV 94.2 H, MCH 28.4, MCHC 30.1 L, RDW 16.6, Plt Count 236, MPV 7.6, Neut % (Auto) 73.6, Lymph % (Auto) 15.2, Jack % (Auto) 5.8, Eos % (Auto) 4.9, Baso % (Auto) 0.5, Neut # (Auto) 4.0, Lymph # (Auto) 0.8, Jack # (Auto) 0.3, Eos # (Auto) 0.3, Baso # (Auto) 0.0, Sodium 141, Potassium 4.6, Chloride 105, Carbon Dioxide 27, Anion Gap 13.6, BUN 67 H, Creatinine 2.50 H, Estimated Creat Clear 44, Estimated GFR 25 L, Est GFR ( Amer) 31 L, Glucose 91, Calcium 9.4, Total Bilirubin 0.4, AST 20, ALT 15, Alkaline Phosphatase 63, Troponin I 0.01, Total Protein 7.5, Albumin 4.1, Globulin 3.4 H, Albumin/Globulin Ratio 1.2, Lipase 63, HIV 1&2 Antibody Rapid Nonreactive 12/14/23 10:55 12/14/23 10:55 Orders (Tests/Meds): ED MEDICATIONS Discontinued Medications Generic Name Dose Route Start Last Admin Trade Name Christin PRN Reason Stop Dose Admin Acetaminophen 1,000 mg 12/14/23 11:49 12/14/23 12:05 Acetaminophen 1,000mg/100ml Vial IV 12/14/23 11:50 1,000 mg ONCE ONE Administration Iopamidol 75 ml 12/14/23 12:07 12/14/23 12:07 Iopamidol-370 (76%);100ml Bottle IV 12/14/23 12:08 75 ml ONCE ONE Administration Sodium Chloride 10 ml 12/14/23 12:07 12/14/23 12:07 Sodium Chloride 0.9% 10ml Syr (Rad Only) IV 12/14/23 12:08 10 ml ONCE ONE Administration ORDERS Category Date Time Status CT abdomen pelvis w con Stat Cat Scan 12/14/23 11:23 Completed Complete Blood Count Auto Diff Stat Lab 12/14/23 10:55 Completed Comprehensive Metabolic Panel Stat Lab 12/14/23 10:55 Completed HIV (1&2) Antibody Rapid Stat Lab 12/14/23 10:55 Completed Hep C Ab with Reflex to RNA Stat Lab 12/14/23 10:55 Received Lipase Stat Lab 12/14/23 10:55 Completed Trop I [Troponin I] Stat Lab 12/14/23 10:55 Completed ECG Data Tracing #1: Independently interpreted by me rate is 55, rhythm is regular, axis is leftward deviated, no ST elevation in anatomical contiguous leads, incomplete left bundle branch block. QTc 416 Medical Decision Narrative: In summary patient is 73-year-old male past medical history described above who presents emergency department for evaluation of abdominal pain in the setting of previous colon cancer status postresection, current lung cancer with ongoing imaging and treatment by Dr. Cano. Patient is hemodynamically stable nontoxic-appearing upon arrival with a tender ventral abdominal wall hernia that is not reducible without overlying skin changes. Patient is still stooling and passing flatus so differential includes incarcerated hernia without obstruction, partial obstruction, worsening malignancy, among others. Workup will be conducted with hematologic labs, urinalysis, CT abdomen pelvis IV contrast. Initial inventions include pain control with IV Tylenol. Initial workup reviewed by me, no significant leukocytosis, largely stable anemia 9.9. Creatinine 2.5 consistent with baseline initial troponin 0.01, lipase 63. CT abdomen pelvis shows ventral hernia containing loop of bowel and partial small bowel obstruction with polycystic kidney disease as well as multiple nonobstructing kidney stones. There is inflammatory reaction and fluid surrounding the herniated bowel the bowel is dilated proximal to the hernia measuring up to 3.5 cm in diameter decompressed distally consistent with partial obstruction. I discussed case with Dr. Mckeon, he is well familiar with this patient. Patient is probably medically appropriate for here however he will look into surgical capabilities after reviewing the CT scan. I subsequently discussed case with Dr. Mckeon, we are capable of taking care of this patient at this institution. The case was subsequently discussed with hospital medicine regarding management they will meet the patient to service for continued evaluation at this time. Critical Care Critical Care Time Critical Care Time: No
[2023-12-14 11:49] LABS: Troponin I 0.01 ng/ml (0.00-0.034)
--- NOTE | 2023-12-14 11:51 | PC.NURSE ---
patient gone to CT at this time.
[2023-12-14 11:55] LABS: HIV (1&2) Antibody Rapid NONREACTIVE (NONREACTIVE)
[2023-12-14] MEDS: ACETAMINOPHEN 1,000MG/100ML VIAL 1000 MG IV (12:05)
[2023-12-14] MEDS: SODIUM CHLORIDE 0.9% 10ML SYR (RAD ONLY) 10 ML IV (12:07)
[2023-12-14] MEDS: IOPAMIDOL-370 (76%);100ML BOTTLE 75 ML IV (12:07)
--- NOTE | 2023-12-14 14:15 | PC.NURSE ---
[facility] general surgery for .
--- NOTE | 2023-12-14 14:16 | PC.NURSE ---
ROCKY ESPINOZA IS SPEAKING WITH DR MEDRANO
--- NOTE | 2023-12-14 14:16 | PC.NURSE ---
speaking with from general surgery
--- NOTE | 2023-12-14 14:35 | PC.NURSE ---
call made to seasonal warehouse associate for bed placement
--- NOTE | 2023-12-14 14:42 | PC.NURSE ---
ATTEMPTED TO CALL REPORT TO 2ND FLOOR AND THEY STATED ROOM NEEDS TO BE CLEANED FIRST
--- NOTE | 2023-12-14 15:00 | PC.NURSE ---
Addendum entered by Renate Vallejo RN 12/14/23 15:10: Per Original Note: house aware that pt will not be admitted at this time
--- NOTE | 2023-12-14 15:03 | PC.NURSE ---
PER DR MEDRANO HE WOULD LIKE TO SEE PT ON TUESDAY IN HIS OFFICE. ATTEMPTED TO CALL HIS OFFICE TO MAKE AN APPOINTMENT. NO ANSWER. LEFT VOICEMAIL.
--- NOTE | 2023-12-14 15:21 | PC.NURSE ---
CALLED REPORT TO SEAN AT [facility]
[2023-12-15 05:22] LABS: HCV Ab Non Reactive (Non Reactive)
== END 2023-12-14 16:03 | disposition home or self-care (01) ==
LOC: ER 14:32 → 2ND 15:01 → ER 15:07
PROVIDERS: Emergency Provider Emergency Medicine
DX: K46.0 Unspecified abdominal hernia with obstruction, without gangrene (principal); K56.600 Partial intestinal obstruction, unspecified as to cause; R10.9 Unspecified abdominal pain
CPT/HCPCS: 74177; 80053; 83690; 84484; 85025; 86803; 87389; 93005; 99285; J0131; Q9967

== ENCOUNTER 2023-12-22 10:38 | Outpatient (CLI) | payer MEDICARE, MEDICAID, SELFPAY ==
[2023-12-22] MEDS: ACETAMINOPHEN 325MG TAB 650 MG PO (11:10)
[2023-12-22] MEDS: SODIUM CHLORIDE 0.9% 50ML BAG 50 ML IV (11:11)
[2023-12-22] MEDS: diphenhydrAMINE 25MG CAPSULE 25 MG PO (11:11)
[2023-12-22] MEDS: IRON SUCROSE COMPLEX 200 MG in 0.9 % SODIUM CHLORIDE 100 ML 220 MG IV (11:40)
[2023-12-22 11:45] VITALS: BP 112/60; PULSE 61; RESP 17; O2SAT 93
[2023-12-22 12:15] VITALS: BP 134/66; PULSE 68; RESP 16
== END 2023-12-22 12:30 | disposition home or self-care (01) ==
LOC: INF 10:39
PROVIDERS: PCP Family Medicine; Visit Provider Student in an Organized Health Care Education/Training Program
DX: D50.9 Iron deficiency anemia, unspecified (principal); D63.1 Anemia in chronic kidney disease; N18.4 Chronic kidney disease, stage 4 (severe); R53.83 Other fatigue
CPT/HCPCS: 96365; J1756

== ENCOUNTER 2023-12-23 10:54 | Emergency (ER) | payer MEDICARE, MEDICAID, SELFPAY ==
[2023-12-23] VITALS (7 sets, daily range): BP systolic 95–107; BP diastolic 46–58; PULSE 68–76; RESP 20–22; TEMP 36.8; O2SAT 93–97; BMI 27.1
--- NOTE | 2023-12-23 11:12 | CT_ITS ---
FINAL REPORT CLINICAL HISTORY: painful hernia, obstruction concern COMPARISON: 12/14/2023 FINDINGS: Axial CT images of the abdomen and pelvis were obtained without intravenous contrast. Coronal reformatted images were also obtained.This study was performed with techniques to keep radiation doses as low as reasonably achievable (ALARA). Individualized dose reduction techniques using automated exposure control or adjustment of mA and/or kV according to the patient's size were employed. Abdomen:The lung bases are clear. There are multiple bilateral nonobstructing renal stones. The largest on the right measures 12 mm. The largest stone in the left kidney measures 10 mm. Multiple bilateral renal cysts are again noted. There is new mild to moderate hydronephrosis and hydroureter. Postoperative changes are seen in the right abdomen. The liver, spleen and pancreas have an unremarkable, unenhanced appearance. Again seen are 2, supraumbilical hernias containing small bowel loops. There has been interval improvement in the findings of a partial small bowel obstruction. Pelvis: There is significant urinary bladder wall thickening which is worse with adjacent stranding. Findings are consistent with worsening cystitis. The appendix is surgically absent. A right L5 pars defect is noted. IMPRESSION: Findings consistent with cystitis, which is significantly worse. New mild to moderate hydronephrosis and hydroureter. Interval improvement in partial small bowel obstruction. Reviewed, Interpreted and Dictated by Ger Andrews III, MD Transcribed by Zamzam Gonzalez Authenticated and [facility]
--- NOTE | 2023-12-23 11:18 | HMH.EDGENADL ---
Discharge Plan Disposition Patient Disposition: Xfer Other Condition: Good Prescriptions Prescriptions: No Action Stiolto Respimat 2.5-2.5 mcg/actuation mist 2 inh inhalation Q24H lisinopril 5 mg tablet 5 mg PO DAILY escitalopram oxalate [Lexapro] 5 mg tablet 5 mg PO DAILY fluticasone propionate [Flonase Allergy Relief] 50 mcg/actuation spray,suspension 1 spray intranasal DAILY Qty: 10 2RF Rx Instructions: administer into each nostril hydrocodone-acetaminophen 5-325 mg tablet 1 tab PO BID 30 Days Qty: 60 0RF cetirizine 10 mg tablet 10 mg PO DAILY atorvastatin 10 mg tablet 10 mg PO HS metoprolol succinate 200 mg tablet extended release 24 hr 200 mg PO DAILY isosorbide mononitrate 30 mg tablet extended release 24 hr 30 mg PO DAILY oxcarbazepine 300 mg tablet 300 mg PO BID tamsulosin 0.4 mg capsule 0.4 mg PO HS ferrous sulfate 325 mg (65 mg iron) tablet 325 mg PO DAILY omeprazole 20 mg capsule,delayed release(DR/EC) 20 mg PO DAILY aspirin 81 mg tablet,chewable 81 mg PO DAILY multivitamin Tablet 1 tab PO DAILY timolol maleate 0.5 % drops 1 drp ophthalmic (eye) DAILY acetaminophen 500 mg Capsule 500 mg PO Q4HP PRN (Reason: pain/fever) Acid Gone Antacid 95-358 mg/15 mL Suspension 30 ml PO Q4H PRN (Reason: reflux) lidocaine [Lidocaine Pain Relief] 4 % adhesive patch,medicated 1 patch TOPICAL DAILY ondansetron HCl 4 mg Tablet 4 mg PO Q4H PRN (Reason: Nausea) guaifenesin 100 mg/5 mL Liquid 200 mg PO Q6H PRN (Reason: Cough) hydrochlorothiazide 25 mg Tablet 25 mg PO DAILY albuterol sulfate [Ventolin HFA] 90 mcg/actuation Hfa Aerosol Inhaler 1 puff INHALATION Q6H PRN (Reason: soa) amlodipine [Norvasc] 5 mg tablet 10 mg PO DAILY Referrals Follow up/Referrals: Syed Messina MD [Primary Care Provider] - See instructions Clinical Impressions Clinical Impression: Acute renal injury, Acute cystitis with hematuria Instructions Patient Instructions: DI for Urinary Tract Infection (UTI) Print Language Print Language: Martiniquais Discharge ED Provider: Loreta Boo General Adult HPI General Chief complaint: Abdominal Pain Stated complaint: Hypo/Hypertensive Time Seen by Provider: 12/23/23 10:57 History of Present Illness HPI narrative: Edi Toussaint is a 73 y/o male presenting with abdominal pain. Related Data Home Medications ?Medication ?Instructions ?Recorded ?Confirmed aspirin 81 mg chewable tablet 81 mg PO DAILY 06/09/23 12/22/23 atorvastatin 10 mg tablet 10 mg PO HS 06/09/23 12/22/23 cetirizine 10 mg tablet 10 mg PO DAILY 06/09/23 12/22/23 ferrous sulfate 325 mg (65 mg 325 mg PO DAILY 06/09/23 12/22/23 iron) tablet isosorbide mononitrate 30 mg 30 mg PO DAILY 06/09/23 12/22/23 tablet,extended release 24 hr metoprolol succinate 200 mg 200 mg PO DAILY 06/09/23 12/22/23 tablet,extended release 24 hr omeprazole 20 mg capsule,delayed 20 mg PO DAILY 06/09/23 12/22/23 release oxcarbazepine 300 mg tablet 300 mg PO BID 06/09/23 12/22/23 tamsulosin 0.4 mg capsule 0.4 mg PO HS 06/09/23 12/22/23 acetaminophen 500 mg capsule 500 mg PO Q4HP PRN pain/fever 06/10/23 12/22/23 multivitamin 1 tab PO DAILY 06/10/23 12/22/23 timolol maleate 0.5 % eye drops 1 drp ophthalmic (eye) DAILY 06/10/23 12/22/23 tiotropium 2.5 mcg-olodaterol 2.5 2 inh inhalation Q24H 11/22/23 12/22/23 mcg/actuation mist for inhalation (Stiolto Respimat) lisinopril 5 mg tablet 5 mg PO DAILY 11/29/23 12/22/23 escitalopram oxalate 5 mg tablet 5 mg PO DAILY 12/06/23 12/22/23 (Lexapro) albuterol sulfate 90 mcg/actuation 1 puff inhalation Q6H PRN soa 12/22/23 12/22/23 aerosol inhaler (Ventolin HFA) aluminum hydrox-magnesium carb 95 30 ml PO Q4H PRN reflux 12/22/23 12/22/23 mg-358 mg/15 mL oral suspension (Acid Gone Antacid) amlodipine 5 mg tablet (Norvasc) 10 mg PO DAILY 12/22/23 12/22/23 guaifenesin 100 mg/5 mL oral liquid 200 mg PO Q6H PRN Cough 12/22/23 12/22/23 hydrochlorothiazide 25 mg tablet 25 mg PO DAILY 12/22/23 12/22/23 lidocaine 4 % topical patch 1 patch topical DAILY 12/22/23 12/22/23 (Lidocaine Pain Relief) ondansetron HCl 4 mg tablet 4 mg PO Q4H PRN Nausea 12/22/23 12/22/23 Previous Rx's ?Medication ?Instructions ?Recorded fluticasone propionate 50 1 spray intranasal DAILY #10 mL 08/02/23 mcg/actuation nasal spray,suspension (Flonase Allergy Relief) hydrocodone 5 mg-acetaminophen 325 1 tab PO BID Pain 30 days #60 tabs 11/22/23 mg tablet Allergies Allergy/AdvReac Type Severity Reaction Status Date / Time No Known Allergies Allergy Verified 12/22/23 10:14 [facility] Disclaimer: The information contained in this section may have been updated after the patient was seen, as this information can be updated by other users. Medical History (Updated 12/23/23 @ 14:23 by Loreta Boo MD) History of atrial fibrillation Knee pain Heart failure with preserved ejection fraction Peripheral edema Lung nodule Acute exacerbation of chronic obstructive pulmonary disease Acute on chronic respiratory failure with hypoxemia Malignant neoplasm of colon Adenocarcinoma of lung Chronic obstructive pulmonary disease Urinary retention CKD (chronic kidney disease) UTI (urinary tract infection) due to urinary indwelling Jason catheter Atypical angina Acute respiratory failure with hypoxia Stopped smoking with greater than 30 pack year history Pulmonary emphysema Nodule of left lung Atypical pneumonia CVA (cerebral vascular accident) Blind Congestive heart failure Chronic renal failure, stage 3 (moderate) Renal stones Gastroesophageal reflux 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) Encephalomalacia CVA (cerebral vascular accident) Overweight (BMI 25.0-29.9) Obesity (BMI 30.0-34.9) Visual impairment Elevated left ventricular end-diastolic pressure (LVEDP) Diastolic dysfunction Pulmonary HTN Surgical History History of bowel resection History of bronchoscopy History of ureteroscopy History of colonoscopy History of colectomy Family History Unknown Cancer self; post lung, prostate, and colon Other Family history of cancer Social History Smoking Status: Unknown if ever smoked alcohol intake: never substance use type: denies use current occupational status: disabled Travel in the last 8 weeks: None caregiver/support person: Yes household members: none housing: halfway lives independently: No marital status: single current occupation: [employer] current occupational exposures/hazards: No caffeine: Yes special milad needs: No agree to transfusion: No do you feel safe at home: Yes victim of physical abuse: No victim of emotional abuse: No victim of sexual abuse: No would you like helpful sources: No Other Medical History Have you received the Flu Vaccine for this season: No Have you received the Pneumonia Vaccine: Yes ROS Obtained: Yes All systems reviewed & no additional complaints except as documented Physical Exam General General appearance: alert and in no apparent distress Respiratory Respiratory exam: Present normal lung sounds bilaterally; Absent respiratory distress Cardiovascular Cardiovascular exam: Present regular rate and normal rhythm Abdominal Exam Abdominal exam: Present soft, tenderness and hernia (ventral, no overlying skin change, tender to palpation, not easily reduced); Absent distention Neurological Exam Neurological exam: Present alert and oriented X3 Skin Skin exam: Present warm and dry Medical Decision Making Medical Records Screening: Per USPSTF and CDC recommendations, given the prevalence of disease in our region, it is our hospital?s policy to screen for HIV and viral Hepatitis for all patients aged 18 and over and those with ongoing risk factors. [place] [facility] Pt receiving controlled substance: No Vital Signs: 12/23/23 10:55 12/23/23 11:20 12/23/23 11:38 Temperature 98.2 F Temperature Source Oral Pulse Rate 68 70 Pulse Rate [Right] 72 Respiratory Rate 20 Blood Pressure 100/58 L 95/52 L Blood Pressure [Left Arm] 100/58 L Blood Pressure Mean [Left Arm] 72 Blood Pressure Source [Left Arm] Automatic Cuff 02 Sat by Pulse Oximetry 93 L 95 97 Oxygen Delivery Method Nasal Cannula Oxygen Flow Rate (LPM) 3 12/23/23 12:00 12/23/23 12:30 12/23/23 13:01 Temperature Temperature Source Pulse Rate 68 70 71 Pulse Rate [Right] Respiratory Rate Blood Pressure 96/50 L 102/46 L 102/53 L Blood Pressure [Left Arm] Blood Pressure Mean [Left Arm] Blood Pressure Source [Left Arm] 02 Sat by Pulse Oximetry 96 96 97 Oxygen Delivery Method Nasal Cannula Nasal Cannula Nasal Cannula Oxygen Flow Rate (LPM) 3 3 3 Lab Data Lab Results 12/23/23 11:02: WBC 5.9, RBC 3.56 L, Hgb 9.9 L, Hct 31.0 L, MCV 87.0, MCH 27.7, MCHC 31.9, RDW 16.7, Plt Count 271, MPV 7.7, Neut % (Auto) 80.9 H, Lymph % (Auto) 9.2 L, [place] % (Auto) 9.2, Eos % (Auto) 0.1, Baso % (Auto) 0.6, Neut # (Auto) 4.8, Lymph # (Auto) 0.5 L, [place] # (Auto) 0.5, Eos # (Auto) 0.0, Baso # (Auto) 0.0, Sodium 139, Potassium 5.8 H, Chloride 110 H, Carbon Dioxide 18 L, Anion Gap 16.8 H, BUN 97 H, Creatinine 5.60 H, Estimated Creat Clear 15, Estimated GFR 10 L*, Est GFR ( Amer) 12 L*, Glucose 132 H, Calcium 8.9, Total Bilirubin 0.5, AST 19, ALT 21, Alkaline Phosphatase 58, Total Protein 6.7, Albumin 3.6, Globulin 3.1, Albumin/Globulin Ratio 1.2, Lipase 46 12/23/23 11:22: Lactate 1.3 12/23/23 11:31: Urine Color Other, Urine Appearance Cloudy, Urine pH 8.0, Ur Specific [place] 1.025, Urine Protein 3+ A, Urine Glucose (UA) Negative, Urine Ketones Negative, Urine Blood 2+ A, Urine Nitrate Negative, Urine Bilirubin Negative, Urine Urobilinogen 0.2, Ur Leukocyte Esterase 2+ A, Urine RBC 20-50, Urine WBC Tntc, Ur Squamous Epith Cells None, Urine Bacteria 2+ 12/23/23 11:02 12/23/23 11:02 Orders (Tests/Meds): ED MEDICATIONS Generic Name Dose Route Start Last Admin Trade Name Freq PRN Reason Stop Dose Admin Levofloxacin/Dextrose 750 mg in 150 mls @ 100 mls/hr 12/23/23 13:45 12/23/23 13:43 Levofloxacin 750mg/150ml Premix IV 01/02/24 13:44 100 mls/hr Q24H [place] Administration Sodium Chloride 1,000 mls @ 999 mls/hr 12/23/23 13:45 12/23/23 13:43 Sod Chlor 0.9% 1000ml Bag IV 12/23/23 14:45 999 mls/hr .Q1H1M [place] Administration ORDERS Category Date Time Status CT abdomen pelvis wo con Stat Cat Scan 12/23/23 11:12 Completed Complete Blood Count Auto Diff Stat Lab 12/23/23 11:02 Completed Comprehensive Metabolic Panel Stat Lab 12/23/23 11:02 Completed HIV (1&2) Antibody Rapid Stat Lab 12/23/23 11:02 Received Hep C Ab with Reflex to RNA Stat Lab 12/23/23 11:35 Ordered Lactic Acid Stat Lab 12/23/23 11:22 Completed Lipase Stat Lab 12/23/23 11:02 Completed Urinalysis and Microscopic Stat Lab 12/23/23 11:31 Completed Urine Culture Stat Micro 12/23/23 11:31 Received Medical Decision Narrative: In summary, Edi Toussaint is a 73 y/o male presenting with abdominal pain. Differential diagnosis includes but is not limited to, SBO, incarcerated hernia, acute cystitis, sepsis, mesenteric ischemia, gastroenteritis, among others. Patient was seen in the emergency department on December 13 and found to have a reducible hernia with concern of partial bowel obstruction at that time. Patient was discharged home safely after surgical evaluation and outpatient planning for operative repair of patient's hernia on 12/30/2023. Given patient's acute onset vomiting and new incontinence in setting of mid abdominal pain, patient will be reevaluated with labs and imaging. On initial evaluation, patient hypotensive, mentating appropriately, on 3 L nasal cannula (baseline 2L). 1L IV fluids initiated. Patient CBC demonstrated mild anemia with hemoglobin 9.9, no thrombocytopenia, no leukocytosis. Patient's CMP had increased potassium at 5.8, creatinine 5.6, lactate, lactate 1.3. Based on the significant increase in patient's creatinine, CT scan was changed from with IV contrast to without IV contrast. It is feasible to see a bowel obstruction without IV contrast, thus it was still felt to be beneficial. Patient's urinalysis significant for 2+ leukocyte esterase, 2+ blood, 3+ protein and innumerable white blood cells. Patient CT personally reviewed by me and significant for bilateral hydroureteronephrosis without obstructive stone pathology. It appears that the patient has a significantly thickened bladder wall circumferentially with surrounding fat stranding. Patient has improvement of his partial bowel obstruction visualized on 12/14/2023. Given the CT scan findings as well as the significant increase in patient's creatinine, he was treated with IV levofloxacin, additional IV fluids and patient's case was discussed with [facility] hospitalist, Dr. Ramirez, who felt the patient should be managed at a facility that has both nephrology and urology available should the patient's case be get worse. I was in agreement with this plan and discussed the case with Dr. Mendiola via MDs. Urology was also in the phone call and recommended placement of Jason catheter for additional relief of probable urinary retention. has graciously agreed to accept the patient as an ED to ED transfer for further evaluation and management of his acute renal injury in the setting of bilateral hydroureteronephrosis and acute cystitis with hematuria. Patient transferred from [facility] emergency department in stable condition. Loreta Boo MD PGY-3, Emergency Medicine Critical Care Critical Care Time Critical Care Time: No
[2023-12-23 11:30] LABS: Albumin Level 3.6 g/dl (3.5-5.0); Basophils % 0.6 % (0.1-2.0); Chloride 110 mmol/L (98-107); Eosinophils % 0.1 % (0.1-12.0); Hemoglobin 9.9 g/dL (14.1-18.0); Lymphocytes # 0.5 K/mm3 (0.7-4.5); Lymphocytes % 9.2 % (10-50); Mean Corpuscular HGB Conc 31.9 g/dL (31.8-35.4); Mean Corpuscular Hemoglobin 27.7 pg (27.0-31.2); Mean Platelet Volume 7.7 fl (7.4-10.4); Monocytes # 0.5 K/mm3 (0.1-1.0); Monocytes % 9.2 % (1.7-9.3); Neutrophils # 4.8 K/mm3 (1.8-7.8); Neutrophils % 80.9 % (37.0-80.0); Platelet Count 271 K/mm3 (142-424); Potassium 5.8 mmoL/L (3.5-5.1); Red Blood Count 3.56 M/mm3 (4.60-6.20); Red Cell Distribution Width 16.7 % (11.5-17.5); Sodium 139 mmol/L (136-145); White Blood Count 5.9 K/mm3 (4.8-10.8)
[2023-12-23 11:33] LABS: Alanine Aminotransferase 21 U/L (12-78); Albumin/Globulin Ratio 1.2 (1.1-1.8); Alkaline Phosphatase 58 U/L (38-126); Anion Gap 16.8 mEq/L (5-15); Aspartate Amino Transferase 19 U/L (17-59); Bilirubin,Total 0.5 mg/dl (0.2-1.3); Calcium 8.9 mg/dl (8.4-10.2); Carbon Dioxide 18 mmol/L (22.0-30.0); Estimated Glomerular Filt Rate 10 ml/min (>60); GFR (African American) 12 ML/MIN (>60); Globulin 3.1 g/dL (1.3-3.2); Glucose 132 mg/dl (74-100); Lipase 46 U/L (23-300); Total Protein,Serum 6.7 g/dl (6.3-8.2)
[2023-12-23 11:35] LABS: Lactic Acid 1.3 mmol/L (0.7-2.1)
[2023-12-23 11:35] LABS: Microscopic, Urine URINE MICROSCOPIC (MICROSCOPIC)
[2023-12-23 11:36] LABS: Blood Urea Nitrogen 97 mg/dl (9-20); Creatinine Clearance Estimated 15 mL/min (50-200)
--- NOTE | 2023-12-23 11:40 | PC.NURSE ---
Dr. Boo notified of critical Creatinine & GFR. She asked to change CT to WO contrast, I s/w radiology and they will adjust order.
[2023-12-23 11:42] LABS: Appearance,Urine CLOUDY (Clear); Bilirubin,Urine Negative (Negative); Blood, Urine 2+ (Negative); Color,Urine OTHER (Yellow); Glucose,Urine (UA) Negative (Negative); Ketones,Urine Negative (Negative); Leukocyte Esterase,Urine 2+ (Negative); Nitrate,Urine Negative (Negative); Protein,Urine 3+ (Negative); Specific Gravity, Urine 1.025 (1.005-1.030); Urobilinogen,Urine 0.2 EU/dl (0.2)
--- NOTE | 2023-12-23 11:50 | PC.NURSE ---
Pt taken to ct scan via stretcher.
--- NOTE | 2023-12-23 11:51 | PC.NURSE ---
Pt gone to RAD via stretcher
--- NOTE | 2023-12-23 11:58 | PC.NURSE ---
Pt returned to room from RAD
[2023-12-23 12:06] LABS: Bacteria,Urine 2+ /lpf; RBC,Urine 20-50 #/hpf (0-3); WBC,Urine TNTC #/hpf (0-3)
--- NOTE | 2023-12-23 13:01 | PC.NURSE ---
Rounded on pt. Provided with warm blanket. No other needs voiced and call light remains within reach.
[2023-12-23] MEDS: LEVOFLOXACIN/D5W 750 MG/150 ML 750 MG/150 ML PIGGYBACK 100 MG IV (13:43)
[2023-12-23] MEDS: 0.9 % SODIUM CHLORIDE 1000ML 1,000 ML 999 ML IV ×2 (13:43→14:48)
--- NOTE | 2023-12-23 13:51 | PC.NURSE ---
Called [facility] per Dr Boo to speak with Urology about this pt. [facility] advised they would call back.
[2023-12-23] MEDS: LIDOCAINE 2% UROJET 10ML 10 ML UR (14:40)
--- NOTE | 2023-12-23 14:57 | PC.NURSE ---
Addison Loredo spoke with EMS regarding tx to . They advised they would be here shortly
[2023-12-23 15:30] LABS: HIV (1&2) Antibody Rapid NONREACTIVE (NONREACTIVE)
--- NOTE | 2023-12-26 09:25 | PC.NURSE ---
urine results faxed to where pt was transferred,
== END 2023-12-23 15:22 | disposition short-term general hospital (02) ==
PROVIDERS: Emergency Provider Student in an Organized Health Care Education/Training Program; PCP Family Medicine
DX: N17.9 Acute kidney failure, unspecified (principal); N30.01 Acute cystitis with hematuria; R10.9 Unspecified abdominal pain
CPT/HCPCS: 96361; 96374; 51702; 74176; 80053; 81001; 83605; 83690; 85025; 87086; 87088; 87186; 87389; 99284; J1956; J7030

== ENCOUNTER 2024-01-05 09:21 | Emergency (ER) | payer MEDICARE, MEDICAID, SELFPAY ==
[2024-01-05] VITALS (10 sets, daily range): BP systolic 95–136; BP diastolic 49–76; PULSE 55–71; RESP 18; TEMP 36.9–37.1; O2SAT 95–100; BMI 36.7
--- NOTE | 2024-01-05 09:20 | ECG_ITS ---
APPROVED REPORT Exam: Resting ECG HR:56 bpm ECG Measurements Heart Rate 56 AXES CO 216 P 58 QRSd 122 QRS -37 QT 449 T 64 QTc 441 Conclusion SINUS BRADYCARDIA WITH FIRST DEGREE AV BLOCK LEFT AXIS DEVIATION [QRS AXIS < -30] MODERATE INTRAVENTRICULAR CONDUCTION DELAY [110+ ms QRS DURATION] NONSPECIFIC ST & T-WAVE ABNORMALITY Electronically signed by : PILAR KOENIG, 01/05/2024 15:11:23
--- NOTE | 2024-01-05 09:32 | ED_ITS ---
Discharge Plan Disposition Patient Disposition: [facility] Chief Complaint: Altered Mental Status Prescriptions Prescriptions: No Action lisinopril 5 mg tablet 5 mg PO DAILY finasteride 5 mg tablet 5 mg PO DAILY Qty: 90 3RF Trelegy Ellipta 100-62.5-25 mcg blister with device 1 inh inhalation DAILY Qty: 60 2RF Lokelma 10 gram powder in packet 20 g PO DAILY Qty: 30 0RF metoprolol succinate 200 mg tablet extended release 24 hr 100 mg PO DAILY amlodipine [Norvasc] 5 mg tablet 5 mg PO DAILY escitalopram oxalate [Lexapro] 5 mg tablet 5 mg PO DAILY fluticasone propionate [Flonase Allergy Relief] 50 mcg/actuation spray,suspension 1 spray intranasal DAILY Qty: 10 2RF Rx Instructions: administer into each nostril hydrocodone-acetaminophen 5-325 mg tablet 1 tab PO BID 30 Days Qty: 60 0RF Acid Gone Antacid 95-358 mg/15 mL Suspension 30 ml PO Q4H PRN (Reason: reflux) lidocaine [Lidocaine Pain Relief] 4 % adhesive patch,medicated 1 patch TOPICAL DAILY ondansetron HCl 4 mg Tablet 4 mg PO Q4H PRN (Reason: Nausea) guaifenesin 100 mg/5 mL Liquid 200 mg PO Q6H PRN (Reason: Cough) hydrochlorothiazide 25 mg Tablet 25 mg PO DAILY albuterol sulfate [Ventolin HFA] 90 mcg/actuation Hfa Aerosol Inhaler 1 puff INHALATION Q6H PRN (Reason: soa) cetirizine 10 mg tablet 10 mg PO DAILY atorvastatin 10 mg tablet 10 mg PO HS isosorbide mononitrate 30 mg tablet extended release 24 hr 30 mg PO DAILY oxcarbazepine 300 mg tablet 300 mg PO BID tamsulosin 0.4 mg capsule 0.4 mg PO HS ferrous sulfate 325 mg (65 mg iron) tablet 325 mg PO DAILY omeprazole 20 mg capsule,delayed release(DR/EC) 20 mg PO DAILY aspirin 81 mg tablet,chewable 81 mg PO DAILY multivitamin Tablet 1 tab PO DAILY timolol maleate 0.5 % drops 1 drp ophthalmic (eye) DAILY acetaminophen 500 mg Capsule 500 mg PO Q4HP PRN (Reason: pain/fever) Activity Restrictions/Add. Instructions Additional Instructions/Restrictions: At this time it was felt you are safe to be discharged home. If new or worsening symptoms please do not hesitate to return the emergency department. Please follow-up with your family doctor to discuss continued management of your known lung cancer. Clinical Impressions Clinical Impression: Lung cancer, Chronic hypoxic respiratory failure, on home oxygen therapy Instructions Patient Instructions: DI for Altered Mental Status Print Language Print Language: Icelandic Discharge ED Provider: Cedric Hinton General Adult HPI General Chief complaint: Altered Mental Status Stated complaint: Altered Mental Status Time Seen by Provider: 01/05/24 09:30 Mode of Arrival: EMS Source of Information: Patient and EMS Limitations: Altered Mental Status Description of Symptoms (Recalled from ER Triage Doc. by RN): lethargic, low oxygen. History of Present Illness HPI narrative: Patient is a 73-year-old male with multiple comorbidities including permanent blindness that is chronic, endobronchial malignancy of the lung, hypertension, hyperlipidemia, previous CVA with residual, CKD, lung disease on Trelegy and 2 L nasal cannula at baseline who presents emergency department for evaluation of altered mental status. Patient was found slumped over in his chair this morning not on his baseline oxygen, his SpO2 was in the 70s. They called 911 who placed him on oxygen who had rapid resolution of hypoxia and encephalopathy and was at his baseline upon arrival. He states he has some slight shortness of breath, his cough is at baseline, he denies chest pain or other acute complaints. Related Data Home Medications ?Medication ?Instructions ?Recorded ?Confirmed aspirin 81 mg chewable tablet 81 mg PO DAILY 06/09/23 01/03/24 atorvastatin 10 mg tablet 10 mg PO HS 06/09/23 01/03/24 cetirizine 10 mg tablet 10 mg PO DAILY 06/09/23 01/03/24 ferrous sulfate 325 mg (65 mg 325 mg PO DAILY 06/09/23 01/03/24 iron) tablet isosorbide mononitrate 30 mg 30 mg PO DAILY 06/09/23 01/03/24 tablet,extended release 24 hr omeprazole 20 mg capsule,delayed 20 mg PO DAILY 06/09/23 01/03/24 release oxcarbazepine 300 mg tablet 300 mg PO BID 06/09/23 01/03/24 tamsulosin 0.4 mg capsule 0.4 mg PO HS 06/09/23 01/03/24 acetaminophen 500 mg capsule 500 mg PO Q4HP PRN pain/fever 06/10/23 01/03/24 multivitamin 1 tab PO DAILY 06/10/23 01/03/24 timolol maleate 0.5 % eye drops 1 drp ophthalmic (eye) DAILY 06/10/23 01/03/24 lisinopril 5 mg tablet 5 mg PO DAILY 11/29/23 01/03/24 escitalopram oxalate 5 mg tablet 5 mg PO DAILY 12/06/23 01/03/24 (Lexapro) albuterol sulfate 90 mcg/actuation 1 puff inhalation Q6H PRN soa 12/22/23 01/03/24 aerosol inhaler (Ventolin HFA) aluminum hydrox-magnesium carb 95 30 ml PO Q4H PRN reflux 12/22/23 01/03/24 mg-358 mg/15 mL oral suspension (Acid Gone Antacid) guaifenesin 100 mg/5 mL oral liquid 200 mg PO Q6H PRN Cough 12/22/23 01/03/24 hydrochlorothiazide 25 mg tablet 25 mg PO DAILY 12/22/23 01/03/24 lidocaine 4 % topical patch 1 patch topical DAILY 12/22/23 01/03/24 (Lidocaine Pain Relief) ondansetron HCl 4 mg tablet 4 mg PO Q4H PRN Nausea 12/22/23 01/03/24 amlodipine 5 mg tablet (Norvasc) 5 mg PO DAILY 01/03/24 01/03/24 metoprolol succinate 200 mg 100 mg PO DAILY 01/03/24 01/03/24 tablet,extended release 24 hr Previous Rx's ?Medication ?Instructions ?Recorded fluticasone propionate 50 1 spray intranasal DAILY #10 mL 08/02/23 mcg/actuation nasal spray,suspension (Flonase Allergy Relief) hydrocodone 5 mg-acetaminophen 325 1 tab PO BID Pain 30 days #60 tabs 11/22/23 mg tablet finasteride 5 mg tablet 5 mg PO DAILY #90 tabs 01/03/24 fluticasone fur. 100 mcg-umeclid 1 inh inhalation DAILY #60 ea 01/03/24 62.5 mcg-vilant 25 mcg inhalat.powder (Trelegy Ellipta) sodium zirconium cyclosilicate 10 20 g PO DAILY #30 ea 01/03/24 gram oral powder packet (Lokelma) Allergies Allergy/AdvReac Type Severity Reaction Status Date / Time No Known Allergies Allergy Verified 01/03/24 15:33 [facility] Disclaimer: The information contained in this section may have been updated after the patient was seen, as this information can be updated by other users. Medical History Urinary retention History of atrial fibrillation Knee pain Heart failure with preserved ejection fraction Peripheral edema Lung nodule Acute exacerbation of chronic obstructive pulmonary disease Acute on chronic respiratory failure with hypoxemia Malignant neoplasm of colon Adenocarcinoma of lung Chronic obstructive pulmonary disease CKD (chronic kidney disease) UTI (urinary tract infection) due to urinary indwelling Jason catheter Atypical angina Acute respiratory failure with hypoxia Stopped smoking with greater than 30 pack year history Pulmonary emphysema Nodule of left lung Atypical pneumonia CVA (cerebral vascular accident) Blind Congestive heart failure Chronic renal failure, stage 3 (moderate) Renal stones Gastroesophageal reflux 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) Encephalomalacia CVA (cerebral vascular accident) Overweight (BMI 25.0-29.9) Obesity (BMI 30.0-34.9) Visual impairment Elevated left ventricular end-diastolic pressure (LVEDP) Diastolic dysfunction Pulmonary HTN Surgical History History of bowel resection History of bronchoscopy History of ureteroscopy History of colonoscopy History of colectomy Family History Unknown Cancer self; post lung, prostate, and colon Other Family history of cancer Social History Smoking Status: Never smoker alcohol intake: never substance use type: denies use current occupational status: disabled Travel in the last 8 weeks: None caregiver/support person: Yes household members: none housing: correction lives independently: No marital status: single current occupation: [employer] current occupational exposures/hazards: No caffeine: Yes special milad needs: No agree to transfusion: No do you feel safe at home: Yes victim of physical abuse: No victim of emotional abuse: No victim of sexual abuse: No would you like helpful sources: No Other Medical History Have you received the Flu Vaccine for this season: No Have you received the Pneumonia Vaccine: Yes ROS Obtained: Yes Systems reviewed as appropriate & no additional complaints except as documented Physical Exam General General appearance: alert and in no apparent distress Head Head exam: atraumatic and normocephalic ENT ENT exam: Present mucous membranes moist Neck Neck exam: Present normal inspection Chest Chest inspection: Present normal inspection and symmetric chest wall rise Respiratory Respiratory exam: Present wheezes (Slight expiratory phase wheeze all lung teran); Absent respiratory distress or stridor Cardiovascular Cardiovascular exam: Present regular rate and normal rhythm Abdominal Exam Abdominal exam: Present soft; Absent tenderness Extremities Exam Extremities exam: Present normal inspection Neurological Exam Neurological exam: Present alert Psychiatric Psychiatric exam: Present normal affect Skin Skin exam: Present warm and dry Medical Decision Making Medical Records Screening: Per USPSTF and CDC recommendations, given the prevalence of disease in our region, it is our hospital?s policy to screen for HIV and viral Hepatitis for all patients aged 18 and over and those with ongoing risk factors. [place] Pt receiving controlled substance: No Vital Signs: 01/05/24 09:18 01/05/24 09:30 01/05/24 10:23 Temperature 98.4 F Temperature Source Oral Pulse Rate 55 L 57 L Pulse Rate [Right] 67 Respiratory Rate 18 Blood Pressure 95/49 L 106/54 L Blood Pressure [Right Arm] 95/49 L Blood Pressure Mean 70 Blood Pressure Mean [Right Arm] 64 02 Sat by Pulse Oximetry 100 100 97 Oxygen Delivery Method Non-Rebreather Nasal Cannula Nasal Cannula Oxygen Flow Rate (LPM) 2 2 01/05/24 10:30 01/05/24 11:00 01/05/24 11:31 Temperature Temperature Source Pulse Rate 58 L 61 59 L Pulse Rate [Right] Respiratory Rate Blood Pressure 108/52 L 111/60 126/64 Blood Pressure [Right Arm] Blood Pressure Mean 71 72 80 Blood Pressure Mean [Right Arm] 02 Sat by Pulse Oximetry 100 97 97 Oxygen Delivery Method Nasal Cannula Nasal Cannula Nasal Cannula Oxygen Flow Rate (LPM) 2 2 01/05/24 12:02 01/05/24 12:30 Temperature Temperature Source Pulse Rate 62 61 Pulse Rate [Right] Respiratory Rate Blood Pressure 136/75 134/76 Blood Pressure [Right Arm] Blood Pressure Mean 87 87 Blood Pressure Mean [Right Arm] 02 Sat by Pulse Oximetry 99 97 Oxygen Delivery Method Nasal Cannula Nasal Cannula Oxygen Flow Rate (LPM) 2 2 Lab Data Lab Results 01/05/24 09:20: WBC 6.2, RBC 3.40 L, Hgb 9.3 L, Hct 29.9 L, MCV 88.0, MCH 27.2, MCHC 31.0 L, RDW 16.7, Plt Count 322, MPV 8.3, Neut % (Auto) 75.7, Lymph % (Auto) 14.5, Graves % (Auto) 4.5, Eos % (Auto) 4.3, Baso % (Auto) 1.0, Neut # (Auto) 4.7, Lymph # (Auto) 0.9, Graves # (Auto) 0.3, Eos # (Auto) 0.3, Baso # (Auto) 0.1, Sodium 141, Potassium 4.3, Chloride 108 H, Carbon Dioxide 25, Anion Gap 12.3, BUN 62 H, Creatinine 3.10 H, Estimated Creat Clear 40, Estimated GFR 20 L, Est GFR ( Amer) 24 L, Glucose 139 H, Calcium 8.2 L, Magnesium 2.1, Total Bilirubin 0.4, AST 24, ALT 31, Alkaline Phosphatase 70, Troponin I 0.01, NT-Pro-B Natriuret Pep 449, Total Protein 6.4, Albumin 3.2 L, Globulin 3.2, A lbumin/Globulin Ratio 1.0 L 01/05/24 09:30: VBG pH 7.34, VBG pCO2 45.1, VBG pO2 55.5 H, VBG HCO3 23.5, VBG Total CO2 24.9, VBG O2 Saturation 85.1 H, VBG Base Excess -2.3, VBG Lactic Acid 2.0 01/05/24 09:46: SARS-CoV-2 (PCR) Not detected, Influenza A Untype (PCR) Not detected, Influenza Type B (PCR) Not detected 01/05/24 12:27: Troponin I < 0.01 01/05/24 09:20 01/05/24 09:20 Orders (Tests/Meds): ED MEDICATIONS Discontinued Medications Generic Name Dose Route Start Last Admin Trade Name Freq PRN Reason Stop Dose Admin Albuterol/Ipratropium 3 ml 01/05/24 09:30 01/05/24 09:49 Ipratropium/Albuterol 3 Ml Neb IH 01/05/24 09:31 3 ml ONCE ONE Administration Lactated Ringer's 2,600 mls @ 1,300 mls/hr 01/05/24 09:33 01/05/24 09:49 Lactated Ringer's 1000 Ml Bag 30 ml/kg infuse over 2 hr (2600 ml) 01/05/24 11:32 1,300 mls/hr IV Administration .Q2H ONE Iopamidol 70 ml 01/05/24 10:14 01/05/24 10:16 Iopamidol-370 (76%);100ml Bottle IV 01/05/24 10:15 70 ml ONCE ONE Administration Methylprednisolone Sodium Succinate 125 mg 01/05/24 09:30 01/05/24 09:48 Methylprednisolone Sod Succ 125mg Vial IV 01/05/24 09:31 125 mg ONCE ONE Administration Sodium Chloride 50 ml 01/05/24 10:14 01/05/24 10:16 0.9 % Sodium Chloride 50 Ml Vial IV 01/05/24 10:15 50 ml ONCE ONE Administration Sodium Chloride 10 ml 01/05/24 10:14 01/05/24 10:16 Sodium Chloride 0.9% 10ml Syr (Rad Only) IV 01/05/24 10:15 10 ml ONCE ONE Administration ORDERS Category Date Time Status CT angio chest PE protocol Stat Cat Scan 01/05/24 09:33 Completed BNP [NT Pro Brain Natriuretic Pep.] Stat Lab 01/05/24 09:20 Completed CBC w/Auto Diff [Complete Blood Count Auto Diff] Stat Lab 01/05/24 09:20 Completed CMP [Comprehensive Metabolic Panel] Stat Lab 01/05/24 09:20 Completed HIV (1&2) Antibody Rapid Stat Lab 01/05/24 09:20 Received Hep C Ab with Reflex to RNA Stat Lab 01/05/24 09:20 Received MG [Magnesium] Stat Lab 01/05/24 09:20 Completed Rapid PCR Covid and Flu A/B Stat Lab 01/05/24 09:46 Completed Trop I [Troponin I] Stat Lab 01/05/24 09:20 Completed Troponin I Q3H Lab 01/05/24 12:27 Completed Troponin I Q3H Lab 01/05/24 15:45 Ordered VBG [Venous Blood Gas] Stat RT 01/05/24 09:30 Completed ECG Data Tracing #1: Independently interpreted by me rate is 56, rhythm is regular, axis is normal, no ST elevation in anatomical contiguous leads, QTc 441, sinus bradycardia. Medical Decision Narrative: In summary patient is 73-year-old male past medical history described above who presents emergency department for evaluation of encephalopathy and hypoxia in the setting of being off his home oxygen at long-term care facility. Patient is hemodynamically stable and nontoxic-appearing upon arrival, afebrile. Fingerstick will be obtained. Given the patient is alert and oriented he will be de-escalated and oxygen to his baseline of 2 L to assess what happens. Differential diagnosis includes being off his normal oxygen with resultant encephalopathy, worsening malignancy, among others. Workup be conducted with hematologic labs, CT chest pulmonary embolism protocol. Initial inventions include steroids, DuoNeb x 1 given scant wheezing. Initial workup reviewed by me, white blood cell count 6.2, roughly stable anemia from [place]. Compensated acid-base status, no ELMER or critical electrolyte abnormality. Stable CKD. Initial troponin 0.01 within normal range and patient is not complaining of chest pain. CT chest shows pleural-based mass in the left upper lobe which is progressed from previously it is now currently 5 cm in dimensions instead of 3 cm, mediastinal lymphadenopathy is associated. Patient was weaned to his normal oxygen requirement of 2 L nasal cannula with saturations greater than 90% and patient had no additional complaints. I consider treating this patient empirically for pneumonia however his history of progressive malignancy fits better given that he was taken off his baseline O2, has no cough and no significant leukocytosis or fever. The patient was placed in observation status at 12:21 PM. Medical necessity for observational status is observation on nasal cannula and serial troponins. The patient was provided serial reevaluations and cardiac monitoring while awaiting results. During observation patient had persistently normal SpO2 at his baseline in the high 90s on 2 L nasal cannula. Serial troponins nonactionable. Due to this I feel the patient is appropriate for outpatient management at this time. Total time in observation was 42 minutes. Critical Care Critical Care Time Critical Care Time: No
--- NOTE | 2024-01-05 09:33 | CT_ITS ---
PROCEDURE INFORMATION: Exam: CTA Chest With Contrast Exam date and time: 01/05/2024 10:11 AM Age: 73 years old Clinical indication: Cough and other: Hypoxia; Additional info: Pulm malignancy, intermittent hypoxia, cough TECHNIQUE: Imaging protocol: Computed tomographic angiography of the chest with contrast. Exam focused on the arteries. 3D rendering (Not supervised by radiologist): MIP and/or 3D reconstructed images were created by the technologist. Total images: 933 Radiation optimization: All CT scans at this facility use at least one of these dose optimization techniques: automated exposure control; mA and/or kV adjustment per patient size (includes targeted exams where dose is matched to clinical indication); or iterative reconstruction. Contrast material: ISO 370; Contrast volume: 70 ml; Contrast route: INTRAVENOUS (IV); COMPARISON: CT ANGIO CHEST PE PROTOCOL 06/09/2023 12:22 PM FINDINGS: Pulmonary arteries: The left upper lobe mass encompasses the pulmonary artery to the left upper lobe. Aorta: Unremarkable. No aortic aneurysm. No aortic dissection. Lungs: Atelectatic changes noted within both lung bases. Pleural spaces: Pleural-based mass noted within the left upper lobe measuring 5.2 x 5.3 x 5.3 cm, previously 3.3 x 2.5 cm. Heart: Heart demonstrates mild diffuse enlargement. Coronary arteries: There is mild atherosclerotic calcification of the coronary arteries. Lymph nodes: Mediastinal lymphadenopathy is present measuring up to 1.7 cm. No axillary lymphadenopathy. Left mediastinal lymphadenopathy is present measuring up to 1.5 cm. Diaphragm: There is nonspecific elevation of the right hemidiaphragm. Liver: Multiple subcentimeter hypodense lesions noted throughout the liver as noted previously, likely cysts. Kidneys: Bilateral renal cysts are noted. Intestine: Anterior abdominal wall hernia with fat and bowel present. Bones/joints: No osteoblastic or osteolytic lesions. Soft tissues: Gynecomastia is noted. IMPRESSION: 1. Pleural-based mass noted within the left upper lobe measuring 5.2 x 5.3 x 5.3 cm, previously 3.3 x 2.5 cm. Findings are consistent with the patient's history of malignancy. 2. Mediastinal lymphadenopathy is present measuring up to 1.7 cm. 3. Atelectatic changes noted within both lung bases. 4. Left mediastinal lymphadenopathy is present measuring up to 1.5 cm. 5. Anterior abdominal wall hernia with fat and bowel present. 6. No osteoblastic or osteolytic lesions. 7. Mild cardiomegaly. COMMENTS: Consistent with the [employer]'s Incidental Findings Committee white paper (J Am Rupa Radiol 2018): Any incidental renal lesion less than 1 cm or classified as too small to characterize, or any incidental cystic renal lesion characterized as simple-appearing, is likely benign. No follow-up imaging is recommended for these lesions per consensus recommendations based on imaging criteria.
--- NOTE | 2024-01-05 09:40 | PC.NURSE ---
Finger Blood sugar is 159 at this time.
[2024-01-05 09:43] LABS: Basophils # 0.1 K/mm3 (0-0.2); Eosinophils # 0.3 K/mm3 (0.0-0.4); Eosinophils % 4.3 % (0.1-12.0); Hematocrit 29.9 % (42.0-52.0); Hemoglobin 9.3 g/dL (14.1-18.0); Lymphocytes # 0.9 K/mm3 (0.7-4.5); Lymphocytes % 14.5 % (10-50); Mean Corpuscular Hemoglobin 27.2 pg (27.0-31.2); Mean Platelet Volume 8.3 fl (7.4-10.4); Monocytes # 0.3 K/mm3 (0.1-1.0); Monocytes % 4.5 % (1.7-9.3); Neutrophils # 4.7 K/mm3 (1.8-7.8); Neutrophils % 75.7 % (37.0-80.0); Platelet Count 322 K/mm3 (142-424); Red Cell Distribution Width 16.7 % (11.5-17.5); White Blood Count 6.2 K/mm3 (4.8-10.8)
[2024-01-05 09:44] LABS: Albumin Level 3.2 g/dl (3.5-5.0); Chloride 108 mmol/L (98-107); Sodium 141 mmol/L (136-145)
[2024-01-05 09:44] LABS: VBG Base Excess -2.3 mmol/L (-2.4-2.3); VBG HCO3 23.5 mmol/L (23-30); VBG Oxygen Saturation 85.1 % (50-70); VBG PCO2 45.1 mmol/L (35-51); VBG PH 7.34 mmol/L (7.31-7.41); VBG PO2 55.5 mmol/L (28-40); VBG Total CO2 24.9 mmol/L (23-27)
[2024-01-05 09:45] LABS: Potassium 4.3 mmoL/L (3.5-5.1)
[2024-01-05 09:47] LABS: Alanine Aminotransferase 31 U/L (12-78); Alkaline Phosphatase 70 U/L (38-126); Anion Gap 12.3 mEq/L (5-15); Aspartate Amino Transferase 24 U/L (17-59); Bilirubin,Total 0.4 mg/dl (0.2-1.3); Blood Urea Nitrogen 62 mg/dl (9-20); Carbon Dioxide 25 mmol/L (22.0-30.0); Creatinine Clearance Estimated 40 mL/min (50-200); Estimated Glomerular Filt Rate 20 ml/min (>60); GFR (African American) 24 ML/MIN (>60); Globulin 3.2 g/dL (1.3-3.2); Total Protein,Serum 6.4 g/dl (6.3-8.2)
[2024-01-05 09:48] LABS: Calcium 8.2 mg/dl (8.4-10.2); Glucose 139 mg/dl (74-100); Magnesium 2.1 mg/dl (1.6-2.3)
[2024-01-05] MEDS: METHYLPREDNISOLONE SOD SUCC 125MG VIAL 125 MG IV (09:48)
[2024-01-05] MEDS: LACTATED RINGERS 1300 ML IV (09:49)
[2024-01-05] MEDS: IPRATROPIUM/ALBUTEROL 3 ML NEB IH (09:49)
[2024-01-05 09:51] LABS: Coronavirus 19, PCR Not Detected (NotDetected); Influenza A, PCR Not Detected (NotDetected); Influenza B, PCR Not Detected (NotDetected)
[2024-01-05 09:56] LABS: NT Pro Brain Natriuretic Pep. 449 pg/mL (0-450)
[2024-01-05 10:01] LABS: Troponin I 0.01 ng/ml (0.00-0.034)
--- NOTE | 2024-01-05 10:03 | PC.NURSE ---
Pt out of room with Rad for CT
--- NOTE | 2024-01-05 10:04 | PC.NURSE ---
attempted to call report. Nurse will call me back
[2024-01-05] MEDS: IOPAMIDOL-370 (76%);100ML BOTTLE 70 ML IV (10:16)
[2024-01-05] MEDS: SODIUM CHLORIDE 0.9% 10ML SYR (RAD ONLY) 10 ML IV (10:16)
[2024-01-05] MEDS: 0.9 % SODIUM CHLORIDE 50 ML VIAL IV (10:16)
[2024-01-05 12:54] LABS: Troponin I < 0.01 ng/ml (0.00-0.034)
[2024-01-05 13:05] LABS: HIV (1&2) Antibody Rapid NONREACTIVE (NONREACTIVE)
--- NOTE | 2024-01-05 13:13 | PC.NURSE ---
AWAITING A CALL BACK FROM [place].
--- NOTE | 2024-01-05 13:31 | PC.NURSE ---
REPORT CALLED TO ESTHER AT [facility]
[2024-01-06 05:56] LABS: HCV Ab Non Reactive (Non Reactive)
== END 2024-01-05 14:19 ==
PROVIDERS: Emergency Provider Emergency Medicine
DX: J96.11 Chronic respiratory failure with hypoxia (principal); C34.90 Malignant neoplasm of unspecified part of unspecified bronchus or lung; R41.82 Altered mental status, unspecified; R53.83 Other fatigue
CPT/HCPCS: 71275; 80053; 82803; 83735; 83880; 84484; 85025; 86803; 87389; 87636; 93005; 96361; 96374; 99285; J2919; J7120; J7620; Q9967

== ENCOUNTER 2024-01-19 10:56 | Outpatient (CLI) | payer MEDICARE, MEDICAID, SELFPAY ==
[2024-01-19] MEDS: ACETAMINOPHEN 325MG TAB 650 MG PO (11:15)
[2024-01-19] MEDS: diphenhydrAMINE 25MG CAPSULE 25 MG PO (11:15)
[2024-01-19] MEDS: SODIUM CHLORIDE 0.9% 10ML FLUSH SYRINGE 10 ML IV (11:15)
[2024-01-19] MEDS: SODIUM CHLORIDE 0.9% 50ML BAG 50 ML IV (11:38)
[2024-01-19 11:39] VITALS: BP 144/88; PULSE 59; RESP 16; TEMP 36.6; O2SAT 98
[2024-01-19] MEDS: IRON SUCROSE COMPLEX 200 MG in 0.9 % SODIUM CHLORIDE 100 ML 220 MG IV (11:39)
[2024-01-19 12:15] VITALS: BP 139/79; PULSE 57; RESP 16; TEMP 36.6; O2SAT 98
== END 2024-01-19 12:15 | disposition home or self-care (01) ==
LOC: INF 10:57
PROVIDERS: PCP Family Medicine; Visit Provider Student in an Organized Health Care Education/Training Program
DX: N18.4 Chronic kidney disease, stage 4 (severe) (principal); D63.1 Anemia in chronic kidney disease; R53.82 Chronic fatigue, unspecified; D50.8 Other iron deficiency anemias
CPT/HCPCS: 96365; J1756

== ENCOUNTER 2024-01-23 16:00 | Outpatient (CLI) | payer MEDICARE, MEDICAID, SELFPAY | END 2024-01-23 23:59 | disposition home or self-care (01) | LOC: LAB.DROPOF 01-24 08:49 | PROVIDERS: PCP Urology; Visit Provider Urology | DX: R33.9 Retention of urine, unspecified (principal) | CPT/HCPCS: 87086 ==

== ENCOUNTER 2024-01-25 08:56 | Outpatient (CLI) | payer MEDICARE, MEDICAID, SELFPAY ==
[2024-01-25] MEDS: diphenhydrAMINE 25MG CAPSULE 25 MG PO (09:15)
[2024-01-25] MEDS: ACETAMINOPHEN 325MG TAB 650 MG PO (09:15)
[2024-01-25] MEDS: SODIUM CHLORIDE 0.9% 10ML FLUSH SYRINGE 10 ML IV (09:30)
[2024-01-25 09:32] VITALS: BP 107/58; PULSE 66; RESP 17; TEMP 36.6; O2SAT 98
[2024-01-25] MEDS: IRON SUCROSE COMPLEX 200 MG in 0.9 % SODIUM CHLORIDE 100 ML 220 MG IV (09:32)
[2024-01-25] MEDS: SODIUM CHLORIDE 0.9% 50ML BAG 50 ML IV (09:32)
[2024-01-25 09:39] VITALS: BMI 29.2
[2024-01-25 10:20] VITALS: BP 120/66; PULSE 71; RESP 18; O2SAT 97
== END 2024-01-25 10:20 | disposition home or self-care (01) ==
LOC: INF 08:57
PROVIDERS: PCP Family Medicine; Visit Provider Student in an Organized Health Care Education/Training Program
DX: D50.9 Iron deficiency anemia, unspecified (principal)
CPT/HCPCS: 96365; J1756

== ENCOUNTER 2024-02-01 09:07 | Outpatient (CLI) | payer MEDICARE, MEDICAID, SELFPAY ==
[2024-02-01 09:10] VITALS: BP 163/75; PULSE 83; RESP 18; O2SAT 93
[2024-02-01] MEDS: ACETAMINOPHEN 325MG TAB 650 MG PO (09:15)
[2024-02-01] MEDS: diphenhydrAMINE 25MG CAPSULE 25 MG PO (09:15)
[2024-02-01] MEDS: IRON SUCROSE COMPLEX 200 MG in 0.9 % SODIUM CHLORIDE 100 ML 220 MG IV (09:50)
[2024-02-01] MEDS: SODIUM CHLORIDE 0.9% 50ML BAG 50 ML IV (09:50)
[2024-02-01 10:45] VITALS: BP 163/75; PULSE 83; RESP 18; O2SAT 95
== END 2024-02-01 10:45 | disposition home or self-care (01) ==
PROVIDERS: PCP Family Medicine; Visit Provider Student in an Organized Health Care Education/Training Program
DX: N18.4 Chronic kidney disease, stage 4 (severe) (principal); D63.1 Anemia in chronic kidney disease; D50.8 Other iron deficiency anemias; R53.82 Chronic fatigue, unspecified
CPT/HCPCS: 96365; J1756

== ENCOUNTER 2024-02-02 14:47 | Outpatient (CLI) | payer MEDICARE, MEDICAID, SELFPAY | END 2024-02-02 23:59 | disposition home or self-care (01) | LOC: RAD 14:50 | PROVIDERS: PCP Family Medicine; Visit Provider Family Medicine | DX: C34.90 Malignant neoplasm of unspecified part of unspecified bronchus or lung (principal) ==

== ENCOUNTER 2024-02-17 13:30 | Outpatient (CLI) | payer MEDICARE, MEDICAID, SELFPAY ==
--- NOTE | 2024-02-17 14:11 | CA_ITS ---
FINAL REPORT TECHNIQUE: Sonographic images of the veins of the left upper extremity were obtained from axilla to antecubital fossa. Additionally, images of the internal jugular vein and subclavian vein were also obtained. CLINICAL HISTORY: PAIN LT UPPER ARM INTO SHOULDER,NKI,PT ON ASA COMPARISON: None FINDINGS: The veins of the left upper extremity are compressible from axilla to antecubital fossa. Blood flow is demonstrated by both color and spectral Doppler as well. The internal jugular vein and subclavian vein are also patent. IMPRESSION: No evidence of venous thrombosis of the left upper extremity. Reviewed, Interpreted and Dictated by Ger Andrews III, MD Transcribed by Madison Romero Authenticated and [facility]
--- NOTE | 2024-02-17 14:45 | MR_ITS ---
FINAL REPORT CLINICAL HISTORY: h/o lung cancer 28 ml prohance COMPARISON: Prior CT dated 08/26/2020 FINDINGS: Multiplanar MR imaging of the brain was performed without and with contrast. There is motion on many sequences which somewhat limits overall image quality. There is moderate age-appropriate atrophy. Scattered foci of increased T2 signal are seen in the cerebral white matter that have a nonspecific appearance but likely represent moderate chronic ischemic/gliotic changes. There is anterior left frontal and left temporal encephalomalacia also seen on the prior CT. There is no evidence of intracranial hemorrhage or mass. No abnormal ventricular dilatation is identified. There is no evidence of shift of the midline structures. No abnormal extra-axial fluid collection is seen. No area of abnormal restricted diffusion is identified. The posterior fossa and brainstem have an unremarkable appearance. No abnormal contrast enhancement is seen. Normal major vessel vascular flow voids are seen. Note is made of mucosal thickening in multiple paranasal sinuses. 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 There is probable nasal polyposis with mild extension into the nasopharynx. IMPRESSION: Moderate atrophy and chronic ischemic/gliotic changes. There is anterior left frontal and temporal encephalomalacia, seen on the prior CT of 2020. No enhancing mass to suggest metastases is seen. Probable nasal polyposis with some extension into the nasopharynx. Reviewed, Interpreted and Dictated by Ger Andrews III, MD Transcribed by Danisha Manzanares Authenticated and [facility]
[2024-02-17 14:57] LABS: Chloride 109 mmol/L (98-107); Sodium 142 mmol/L (136-145)
[2024-02-17 15:00] LABS: Blood Urea Nitrogen 30 mg/dl (9-20); Calcium 9.1 mg/dl (8.4-10.2); Carbon Dioxide 26 mmol/L (22.0-30.0); Estimated Glomerular Filt Rate 31 ml/min (>60); GFR (African American) 37 ML/MIN (>60); Glucose 141 mg/dl (74-100)
[2024-02-17] MEDS: SODIUM CHLORIDE 0.9% 10ML SYR (RAD ONLY) 10 ML IV (15:44)
[2024-02-17] MEDS: GADOTERIDOL INJ 20ML SYRINGE 20 ML IV (15:44)
== END 2024-02-17 23:59 | disposition home or self-care (01) ==
PROVIDERS: PCP Family Medicine; Visit Provider Family Medicine
DX: M79.89 Other specified soft tissue disorders (principal); N18.4 Chronic kidney disease, stage 4 (severe); C34.90 Malignant neoplasm of unspecified part of unspecified bronchus or lung
CPT/HCPCS: 70553; 80048; 93971; A9576

== ENCOUNTER 2024-02-23 10:13 | Outpatient (CLI) | payer MEDICARE, MEDICAID, SELFPAY ==
--- NOTE | 2024-02-23 10:17 | US_ITS ---
FINAL REPORT CLINICAL HISTORY: Urinary retention COMPARISON: None FINDINGS: ULTRASOUND BLADDER WITH POST VOID RESIDUAL There is debris within the bladder of uncertain etiology. Bladder volumes were estimated based on 3 dimensional measurements, pre- and postvoid. Prevoid bladder volume: 996 mls Postvoid bladder volume: 585 mls IMPRESSION: Estimated bladder volumes as above with large amount of postvoid residual. Bladder debris of uncertain etiology. Reviewed, Interpreted and Dictated by Ger Andrews III, MD Transcribed by Madison Romero Authenticated and [facility]
== END 2024-02-23 23:59 | disposition home or self-care (01) ==
LOC: RAD 10:17
PROVIDERS: PCP Family Medicine; Visit Provider Urology
DX: R33.9 Retention of urine, unspecified (principal)
CPT/HCPCS: 76857

== ENCOUNTER 2024-02-29 14:12 | Outpatient (CLI) | payer MEDICARE, MEDICAID, SELFPAY ==
--- NOTE | 2024-02-29 14:16 | XR_ITS ---
FINAL REPORT CLINICAL HISTORY: pain COMPARISON: None FINDINGS: LEFT SHOULDER 3 views show no evidence of acute displaced fracture or dislocation of the visualized bony architecture. The joint spaces appear normal. There is an abnormal opacity in the left upper lobe. This could be due to pneumonia or mass. This abnormality has been previously described prior chest CTs. IMPRESSION: No acute findings. Reviewed, Interpreted and Dictated by Onesimo Velazquez MD Transcribed by Madison Romero Authenticated and . [facility]
--- NOTE | 2024-02-29 14:16 | XR_ITS ---
FINAL REPORT CLINICAL HISTORY: pain COMPARISON: None FINDINGS: LEFT HUMERUS 3 views show no evidence of an acute, displaced fracture or dislocation of the visualized bony architecture. The joint spaces appear normal. IMPRESSION: Unremarkable exam. Reviewed, Interpreted and Dictated by Onesimo Velazquez MD Transcribed by Madison Romero Authenticated and [facility]
== END 2024-02-29 23:59 | disposition home or self-care (01) ==
LOC: RAD 14:14
PROVIDERS: PCP Family Medicine; Visit Provider Internal Medicine Medical Oncology
DX: R52 Pain, unspecified (principal); C34.12 Malignant neoplasm of upper lobe, left bronchus or lung
CPT/HCPCS: 73030; 73060

== ENCOUNTER 2024-03-08 09:56 | Outpatient (CLI) | payer MEDICARE, MEDICAID, SELFPAY ==
[2024-03-08] MEDS: ACETAMINOPHEN 325MG TAB 650 MG (10:05)
[2024-03-08] MEDS: diphenhydrAMINE 25MG CAPSULE 25 MG PO (10:05)
[2024-03-08] MEDS: IRON SUCROSE COMPLEX 200 MG in 0.9 % SODIUM CHLORIDE 100 ML 220 MG IV (10:31)
[2024-03-08] MEDS: SODIUM CHLORIDE 0.9% 50ML BAG 50 ML IV (10:31)
[2024-03-08] MEDS: SODIUM CHLORIDE 0.9% 10ML FLUSH SYRINGE 10 ML IV (10:32)
[2024-03-08 10:35] VITALS: BP 150/77; PULSE 75; RESP 18; TEMP 36.6; O2SAT 91
[2024-03-08 11:23] VITALS: BP 133/65; PULSE 67; RESP 18; O2SAT 91
== END 2024-03-08 11:23 | disposition home or self-care (01) ==
LOC: INF 09:57
PROVIDERS: Visit Provider Student in an Organized Health Care Education/Training Program
DX: D50.8 Other iron deficiency anemias (principal); R53.82 Chronic fatigue, unspecified; N18.4 Chronic kidney disease, stage 4 (severe); D63.1 Anemia in chronic kidney disease
CPT/HCPCS: 96365; J1756

== ENCOUNTER 2024-06-01 13:45 | Outpatient (CLI) | payer MEDICARE, MEDICAID, SELFPAY ==
--- NOTE | 2024-06-01 13:48 | CT_ITS ---
FINAL REPORT TECHNIQUE: Axial CT without IV contrast administration. Coronal and sagittal images were obtained and reviewed. This study was performed with techniques to keep radiation doses as low as reasonably achievable, (ALARA). Individualized dose reduction techniques using automated exposure control or adjustment of mA and/or kV according to the patient's size were employed. CLINICAL HISTORY: PULMONARY NODULE COMPARISON: 11/16/2023 FINDINGS: There is dense consolidation in the left upper lobe. The opacified area is much larger from the prior exam, now measuring 6.4 x 4.2 cm and previously measured up to 3.2 cm. Size difference may represent progression of tumor or even posttreatment change if patient is receiving radiation near the site. There is mild dependent atelectasis in the lower lobes. No pleural or pericardial effusion is seen. There is mild prevascular adenopathy with the largest node measuring up to 21 mm and previously measured 16 mm. There is no obvious hilar adenopathy. Mild cardiomegaly is noted. 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 Limited images of the upper abdomen demonstrate multiple benign renal masses, probably cysts. IMPRESSION: Increased opacity left upper lobe either likely representing progression of disease or surrounding posttreatment changes if patient receiving such. Mild worsening ipsilateral adenopathy. Reviewed, Interpreted and Dictated by Onesimo Velazquez MD Transcribed by Sayra Bliss Authenticated and [facility]
== END 2024-06-01 23:59 | disposition home or self-care (01) ==
LOC: RAD 13:46
PROVIDERS: PCP Family Medicine; Visit Provider Internal Medicine
DX: R91.1 Solitary pulmonary nodule (principal)
CPT/HCPCS: 71250

== ENCOUNTER 2024-06-07 08:51 | Outpatient (CLI) | payer MEDICARE, MEDICAID, SELFPAY ==
--- NOTE | 2024-06-07 | CA_ITS ---
APPROVED REPORT EXAM: Comprehensive 2D, Doppler, and color-flow Echocardiogram Curb Worker: Tahmina Diaz RT(R) Ht: 6 ft 4 in Wt: 264lbs BSA: 2.49 BP: 100/48 mmHg Indications: dyspnea, CAD. hx lung cancer, AFIB, M[place]RISON 2D Dimensions Left Atrium 3.11 cm M: 3.0 - 4.0 LA Volume 39.30 mL LVOT 2.25 cm (M/F) 1.5-2.5 LA Volume Index 15.72 mL/m2 (M/F) 16-34 M-Mode Dimensions RVDd 3.82 cm (0.9-2.6) LVDd 4.99 cm (3.5-5.7) Ao Diam 3.16 cm (2.0-3.7) LVDs 3.33 cm (3.5-5.7) IVSd 1.13 cm (0.6-1.1) PWd 1.22 cm (0.6-1.1) EF (Teich) 61.70% FS 33.30% EDV (Teich) 117.70 mL ESV (Teich) 45.10 mL LV Diastology E Decel Time 183 (160-240 msec) E/A Ratio 0.7 MED E' 6.4 (>= 7 cm/sec) E'/MED E' Ratio 8.36 (<= 14) LAT E' 8.4 (>= 10 cm/sec) E/LAT E' Ratio 6.37 (<= 14) Mitral Valve MV E Max Man. 54.0 (40-130 cm/s) MV A Velocity 78.0 (40-130 cm/s) E/A Ratio 0.69 MV Decel. Time 183 (160-240 ms) Left Ventricle The left ventricle is normal size. The left ventricular systolic function is normal. The left ventricular ejection fraction is within the normal range. There is increased LV wall thickness. There is normal LV segmental wall motion. The left ventricular diastolic function is normal. LVEF is 55%. Right Ventricle The right ventricle is normal size. The right ventricular systolic function is normal. Atria The left atrium size is normal. The right atrium size is normal. There is no Doppler evidence of interatrial shunt. Aortic Valve Aortic valve is mildly thickened. There is no aortic valvular stenosis. No aortic regurgitation is present. Mitral Valve The mitral valve is normal in structure. No evidence of mitral valve stenosis. Trace mitral regurgitation. Tricuspid Valve Tricuspid valve is grossly normal in structure and function. Mild tricuspid regurgitation. RVSP is normal. Pulmonic Valve The pulmonary valve is normal in structure. Mild pulmonic regurgitation. Great Vessels The aortic root is normal in size. IVC is normal in size and collapses >50% with inspiration. Pericardium There is no pericardial effusion. Other Information Study Quality: Adequate Conclusion Normal biventricular systolic function. Mild TR, mild PI. Electronically signed by : Leigh Rosen MD 06/19/2024 11:58:08
== END 2024-06-07 23:59 | disposition home or self-care (01) ==
LOC: RT 08:52
PROVIDERS: PCP Family Medicine; Visit Provider Physician Assistant
DX: I36.1 Nonrheumatic tricuspid (valve) insufficiency (principal); I37.1 Nonrheumatic pulmonary valve insufficiency; I20.89 Other forms of angina pectoris
CPT/HCPCS: 93306

== ENCOUNTER 2024-06-27 07:58 | Outpatient (CLI) | payer MEDICARE, MEDICAID, SELFPAY ==
--- OUTSIDE RECORDS SUMMARY | 2024-06-27 08:00 | XMS_ITS | Data Portability ---
Author Organization [facility] ADMIN Address [address] [place] [id number] Care Team Providers Care Leather Heel Breaster Name Role Phone ROSA HANDY Primary Care Provider [phone] Assessment No assessment recorded. Plan of Treatment Reminders Order Date Submit Date Provider Last Modified By Organization Details Last Modified Time Details Appointments FOLLOW UP 30 2024 10:00A M JUSTO VU MD Not available Not available Not available Lab culture, urine + sensitivi ty 2023 024 [email or web address] [facility] (Lab Registration) , [address] [place] [address] , [place], [address], 05/06/2023 07:44:10 urinalysi s, dipstick [address] [facility] [place], [address] [place] [address], [phone], 05/02/2023 09:19:22 Referral None recorded. Procedures bladder scan (PROC) [address] [facility] [place], [address] [place] [address], [phone], 05/02/2023 09:19:22 Surgeries None recorded. Imaging None recorded. Medication Orders cefdinir 300 mg capsule 2023 024 [place] [address] [facility] [place] [address], [place], [address], 04/29/2023 16:44:27 cefdinir 300 mg capsule [address] [facility] [place], [facility] , [place], [address], 03/23/2023 12:36:21 finasteri de 5 mg tablet [address] [facility] [place], [facility] , [place], [address], 03/23/2023 12:36:44 Patient TargetsNo targets recorded. Patient InstructionsNo instructions recorded. Reason for Referral None Reported. Results Created Date Observation Date Name Description Value Unit Range Abnormal Flag Note LastModifiedBy Organization Detail LastModifiedTime 02/16/2002/15/2023 BASIC METAB OLIC PANEL sodium 133 mmol/ L 137-14 7 low Not Available [facility] (Pre-Op Clinic) [address] [place] [address] [place], [address], 02/15/2023 11:26:59 02/16/20 23 02/15/2023 BASIC METAB OLIC PANEL potassium 5.1 mmol/ L 3.5-5. 1 Not Available [facility] (Pre-Op Clinic) [address] [place] [address] [place], [address], 02/15/2023 11:26:59 02/16/20 23 02/15/2023 BASIC METAB OLIC PANEL chloride 93 mmol/ L 98-110 low Not Available [facility] (Pre-Op Clinic) [address] [place] [address] [place], [address], 02/15/2023 11:26:59 02/16/20 23 02/15/2023 BASIC METAB OLIC PANEL carbon dioxide 28 mmol/ L 21-30 Not Available [facility] (Pre-Op Clinic) [address] [place] [address] [place], [address], 02/15/2023 11:26:59 02/16/20 23 02/15/2023 BASIC METAB OLIC PANEL anion gap 12 mmol/ L 6-14 Not Available [facility] (Pre-Op Clinic) [address] [place] [address] [place], [address], 02/15/2023 11:26:59 02/16/20 23 02/15/2023 BASIC METAB OLIC PANEL glucose 84 mg/dL 70-115 Not Available [facility] (Pre-Op Clinic) [address] [place] [address] [place], [address], 02/15/2023 11:26:59 02/16/20 23 02/15/2023 BASIC METAB OLIC PANEL BUN 39 mg/dL 9-20 high Not Available [facility] (Pre-Op Clinic) [address] [place] [address] [place], [address], 02/15/2023 11:26:59 02/16/20 23 02/15/2023 BASIC METAB OLIC PANEL creatinine 2.1 mg/dL 0.5-1. 5 high Not Available [facility] (Pre-Op Clinic) [address] [place] [address] [place], [address], 02/15/2023 11:26:59 02/16/20 23 02/15/2023 BASIC METAB OLIC PANEL BUN/creatini ne ratio 19 ratio 10-20 Not Available [facility] (Pre-Op Clinic) [address] [place] [address] [place], [address], 02/15/2023 11:26:59 02/16/20 23 02/15/2023 BASIC METAB OLIC PANEL glom filtration rate TNP mL/mi n >60- GFR has only been valid ated for patie nts 18-70 years of age. Not Available [facility] (Pre-Op Clinic) [address] [place] [address] [place], [address], 02/15/2023 11:26:59 02/16/20 23 02/15/2023 BASIC METAB OLIC PANEL osmolality (calculated) 286 mosmo l/kg 275-30 1 OSMOL ALITY IS A CALCU LATIO N UTILI ZING THE SERUM /PLAS MA SODIU M, GLUCO SE AND UREA NITRO GEN (BUN) LEVEL S. FOR THE MOST ACCUR ATE RESUL T A MEASU RED SERUM OSMOL ALITY IS SUGGE STED. Not Available [facility] (Pre-Op Clinic) [address] [place] [address] [place], [address], 02/15/2023 11:26:59 02/16/20 23 02/15/2023 BASIC METAB OLIC PANEL calcium 9.4 mg/dL 8.5-10 .8 Not Available [facility] (Pre-Op Clinic) [address] [place] [address] [place], [address], 02/15/2023 11:26:59 02/16/20 23 02/15/2023 BASIC METAB OLIC PANEL note Unles s other hernandez noted testi ng perfo rmed at: [facility] [address] [place] [place] [address] Arnaud mays MD Not Available [facility] (Pre[facility]Op [facility]) [address] [place] [address] [place], [address], 02/15/2023 11:26:59 02/19/20 23 02/18/2023 RFS-P ATHOL OGY SPECI MEN REQUE ST pathreq Patho logy [address] [place] [address] Phone or [phone] Fax Joseph almonte Jr., M.D., Medic al Direc tor [facility] [address] : [place] [address] Phone Numbe r: [phone] [phone] Arnaud mays M.D. PATHO LOGY REPOR T Patie nt Name: AUDRA MEJIA Date of : 1950 Age/S ex: 72/M Accou nt Numbe r: [id number] Medic al Recor d Numbe r: [id number] Order ing MD: RICCARDO HARTLEY AM Date Colle cted : 2022 Date Recei ablta : 2022 Date Repor harsh : 02/23 Exam: Biops y Acces heath# : [id number] Labor atory #: [id number] Copie s To: Techn ician : Clini yobani Histo ry Benig n prost atic hyper plasi a, urine reten tion Previ ous Patie nt Histo ry and Files ROBERTO MORAN (08/12 9 M) i??SS N: [id number] ?? 1. S23-0 28183 , DateC ollec harsh: 06/22 A: SPLEN IC FLEXU RE BIOPS Y Diagn osis: Colon ic type mucos a with no signi fican t histo patho logic abnor malit ies ROGELIO 2. S22-0 [id number] , Date ollec harsh: 12/15 A: COLON , POLYP , 12CM Diagn osis: Hyper plast ic polyp . B: COLON , POLYP , 7CM Diagn osis: Hyper plast ic polyp . C: COLON , POLYP , 5CM Diagn osis: Hyper plast ic polyp . 3. 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 The diagn osis remai ns uncha nged. MSI testi ng by immun ohist ochem istry resul ts: MLH1: Retai lizabeth nucle ar stain ing Legal ly authe ntica harsh by ARNAUD RENE MD 02-23 15:53 :00 PMS2: Retai lizabeth nucle ar stain ing MSH2: Retai lizabeth nucle ar stain ing MSH6: Retai lizabeth nucle ar stain ing IHC inter preta tion: This is a srikanth l pheno type with a low proba bilit y of being a MSI-H relat ed tumor Stain s inter prete d by Dr. Amrita Barraza eckli sts: COLON AND RECTU M SPECI MEN: Proce dure: Right hemic olect stephanie TUMOR : Tumor Site: Cecum Histo logic Type : Adeno carci noma Histo logic Grade : G2: Moder ately diffe renti ated Tumor Size: 4.1 cm x 3.6 cm x 1.7 cm Tumor Depos its: Not ident ified Tumor Exten t: Tumor Exten heath: Tumor invad es throu gh the muscu tosha propr ia into peric olore ctal tissu e Macro scopi c Tumor Perfo ratio n: Not ident ified Acces delmy Findi ngs: Lymph ovasc ular Invas ion: Not ident ified Perin eural Invas ion: Not ident ified Type of Polyp in Which Invas leonor Carci noma Arose : Tubul ovill ous adeno ma Treat ment Effec t: No known presu rgica l thera py BERNADINE NS: Bernadine ns: Proxi mal Bernadine n: - Uninv olved by invas leonor carci noma Dista nce of Tumor from Bernadine n: 5 Centi meter s (cm) Dista l Bernadine n: - Uninv olved by invas leonor carci noma Dista nce of Tumor from Bernadine n: 21 Centi meter s (cm) Radia l or Mesen teric Bernadine n: - Uninv olved by invas leonor carci noma Dista nce of Tumor from Bernadine n: 6.5 Centi meter s (cm) LYMPH NODES : Numbe r of Lymph Nodes Invol balta: 1 Numbe r of Lymph Nodes Exami lizabeth: 11 PATHO LOGIC STAGE CLASS IFICA TION (pTNM , AJCC 8th Editi on): Note: Repor ting of pT, pN, and (when appli cable ) pM categ ories is based on infor matio n avail able to the patho logis t at the time the repor t is issue d. As per the AJCC (Chap ter 1, 8th Ed.) it is the manag ing physi ciani ?? s respo nsibi lity to estab joshua the final patho logic stage based upon all perti nent infor matio n, inclu ding but christenen leslie y not limit ed to this patho logy repor t. Prima ry Tumor (pT): pT3 Regio nal Lymph Nodes (pN): pN1a 4. S21-0 15699 , Date ollec harsh: 09/25 A: CECUM BIOPS Y, MASS Diagn osis: Super ficia l fragm ents of tubul ar adeno ma with high- grade dyspl albino No evide nce of invas leonor carci noma, see Comme nt B: COLON , POLYP , 45CM Diagn osis: Tubul ar adeno ma Negat leonor for carci noma or high- grade dyspl albino C: COLON , POLYP , 20CM Diagn osis: Tubul ar adeno ma Negat leonor for carci noma or high- grade dyspl albino 5. S21-0 53211 , Date ollec harsh: 07/10 A: ANTRU M, BIOPS Y Diagn osis: React leonor gastr opath y and mild chron ic gastr itis with intes tinal Legal ly authe ntica harsh by ARNAUD RENE MD 02-23 15:53 :00 metap lasia Negat leonor for dyspl albino FLP/p ah 6. S19-0 [id number] , DateC ollec harsh: 09/07 A: SKIN, RIGHT SIDE OF NOSE Diagn osis: Consi stent with small ruptu red epide rmal inclu heath cyst No evide nce of malig gabriela MTM/p ah BodyS ite PROST ATE, TUR Gross Descr iptio n Label ed prost ate chips consi sting of multi ple fragm ents of tse soft to semif irm tissu e weigh ing 24 g and measu ring 6.0 x 5.0 x 1.0 cm in aggre gate. Repre senta tive secti ons are submi tted entir hitesh into 5 casse ttes. BAW Micro scopi c Descr iptio n Secti ons confi rm nodul ar fibro muscu lar karen a with numer ous embed ded hyper plast ic gland s. Scatt ered atrop hic gland as well as patch y lymph ocyti c chron ic infla mmati on are ident ified . No evide nce of danita ochoa is seen. Profe ssion al inter preta tion rende red by Arnaud mays Jr., M.D. at [facility] , [address] [id number] . Final Diagn osis BENIG N PROST ATIC HYPER PLASI A EJT/S M Stain *Recu [place]-P[place] ;[place] [address] Legal ly authe ntica harsh by ARNAUD RENE MD 02-23 15:53 :00 Not Available [facility] (Pre[facility]Op [facility]) [address] [place] [address] [place], [address], 02/23/2023 16:17:04 02/20/2002/19/2023 CBC W/ AUTO DIFF WBC 7.57 K/uL 4.5-11 .5 Not Available [facility] (Pre-Op Clinic) [address] [place] [address] [place], [address], 02/19/2023 06:08:08 02/20/20 23 02/19/2023 CBC W/ AUTO DIFF RBC 3.38 M/uL 4.0-5. 4 low Not Available [facility] (Pre-Op Clinic) [address] [place] [address] [place], [address], 02/19/2023 06:08:08 02/20/2002/19/2023 CBC W/ AUTO DIFF HGB 9.5 g/dL 14.0-1 8.0 low Not Available [facility] (Pre-Op [facility]) [address] [place] [address] [place], [address], 02/19/2023 06:08:08 02/20/2002/19/2023 CBC W/ AUTO DIFF HCT 28.8 % 40-54 low Not Available [facility] (Pre-Op Clinic) [address] [place] [address] [place], [address], 02/19/2023 06:08:08 02/20/2002/19/2023 CBC W/ AUTO DIFF MCV 85.2 fL 80.0-1 00.0 Not Available [facility] (Pre[facility]Op [facility]) [address] [place] [address] [place], [address], 02/19/2023 06:08:08 02/20/2002/19/2023 CBC W/ AUTO DIFF MCH 28.1 pg 26.0-3 2.0 Not Available [facility] (Pre[facility]Op [facility]) [address] [place] [address] [place], [address], 02/19/2023 06:08:08 02/20/2002/19/2023 CBC W/ AUTO DIFF MCHC 33.0 g/dL 32.0-3 6.0 Not Available [facility] (Pre[facility]Op [facility]) [address] [place] [address] [place], [address], 02/19/2023 06:08:08 02/20/2002/19/2023 CBC W/ AUTO DIFF RDW 14.7 % 11.5-1 4.5 high Not Available [facility] (Pre[facility]Op [facility]) [address] [place] [address] [place], [address], 02/19/2023 06:08:08 02/20/2002/19/2023 CBC W/ AUTO DIFF platelet count 244 K/uL 142-42 4 Not Available [facility] (Pre[facility]Op [facility]) [address] [place] [address] [place], [address], 02/19/2023 06:08:08 02/20/2002/19/2023 CBC W/ AUTO DIFF MPV 9.1 fL 6.8-10 .2 Not Available [facility] (Pre-Op Clinic) [address] [place] [address] [place], [address], 02/19/2023 06:08:08 02/20/2002/19/2023 CBC W/ AUTO DIFF neutrophil % 81.2 % 50-70 high Not Available [facility] (Pre-Op Clinic) [address] [place] [address] [place], [address], 02/19/2023 06:08:08 02/20/20 23 02/19/2023 CBC W/ AUTO DIFF lymphocyte % 5.3 % 18.0-4 2.0 low Not Available [facility] (Pre[facility]Op [facility]) [address] [place] [address] [place], [address], 02/19/2023 06:08:08 02/20/20 23 02/19/2023 CBC W/ AUTO DIFF monocyte % 10.2 % 2.0-11 .0 Not Available [facility] (Pre[facility]Op [facility]) [address] [place] [address] [place], [address], 02/19/2023 06:08:08 02/20/2002/19/2023 CBC W/ AUTO DIFF eosinophil % 2.6 % 1.0-3. 0 Not Available [facility] (Pre[facility]Op [facility]) [address] [place] [address] [place], [address], 02/19/2023 06:08:08 02/20/20 23 02/19/2023 CBC W/ AUTO DIFF basophil % 0.4 % 0.0-2. 0 Not Available [facility] (Pre-Op [facility]) [address] [place] [address] [place], [address], 02/19/2023 06:08:08 02/20/20 23 02/19/2023 CBC W/ AUTO DIFF immature granulocytes % 0.3 % 0.0-0. 8 Not Available [facility] (Pre[facility]Op [facility]) [address] [place] [address] [place], [address], 02/19/2023 06:08:08 02/20/2002/19/2023 CBC W/ AUTO DIFF nucleated red blood cells % 0.0 % Not Available [facility] (Pre[facility]Op [facility]) [address] [place] [address] [place], [address], 02/19/2023 06:08:08 02/20/20 23 02/19/2023 CBC W/ AUTO DIFF neutrophil # 6.15 K/uL Not Available [facility] (Pre[facility]Op [facility]) [address] [place] [address] [place], [address], 02/19/2023 06:08:08 02/20/20 23 02/19/2023 CBC W/ AUTO DIFF lymphocyte # 0.40 K/uL Not Available [facility] (Pre[facility]Op [facility]) [address] [place] [address] [place], [address], 02/19/2023 06:08:08 02/20/20 23 02/19/2023 CBC W/ AUTO DIFF monocyte # 0.77 K/uL Not Available [facility] (Pre-Op Clinic) [address] [place] [address] [place], [address], 02/19/2023 06:08:08 02/20/20 23 02/19/2023 CBC W/ AUTO DIFF eosinophil # 0.20 K/uL Not Available [facility] (Pre-Op Clinic) [address] [place] [address] [place], [address], 02/19/2023 06:08:08 02/20/20 23 02/19/2023 CBC W/ AUTO DIFF basophil # 0.03 K/uL Not Available [facility] (Pre-Op Clinic) [address] [place] [address] [place], [address], 02/19/2023 06:08:08 02/20/20 23 02/19/2023 CBC W/ AUTO DIFF immature gramulocytes # 0.02 K/uL Not Available [facility] (Pre-Op Clinic) [address] [place] [address] [place], [address], 02/19/2023 06:08:08 02/20/20 23 02/19/2023 CBC W/ AUTO DIFF nucleated red blood cells # 0.00 k/uL Not Available [facility] (Pre[facility]Op Clinic) [address] [place] [address] [place], [address], 02/19/2023 06:08:08 02/20/20 23 02/19/2023 CBC W/ AUTO DIFF manual differential NO Not Available [facility] ([facility]Op [facility]) [address] [place] [address] [place], [address], 02/19/2023 06:08:08 02/20/20 23 02/19/2023 CBC W/ AUTO DIFF note Unles s other hernandez noted testi ng perfo rmed at: [facility] [address] [place] [address] Arnaud mays MD Not Available [facility] (Pre[facility]Op [facility]) [address] [place] [address] [place], [address], 02/19/2023 06:08:08 02/20/20 23 02/19/2023 BASIC METAB OLIC PANEL sodium 139 mmol/ L 137-14 7 Not Available [facility] (Pre[facility]Op [facility]) [address] [place] [address] [place], [address], 02/19/2023 06:44:15 02/20/20 23 02/19/2023 BASIC METAB OLIC PANEL potassium 4.3 mmol/ L 3.5-5. 1 Not Available [facility] (Pre[facility]Op Clinic) [address] [place] [address] [place], [address], 02/19/2023 06:44:15 02/20/20 23 02/19/2023 BASIC METAB OLIC PANEL chloride 108 mmol/ L 98-110 Not Available [facility] (Pre[facility]Op [facility]) [address] [place] [address] [place], [address], 02/19/2023 06:44:15 02/20/20 23 02/19/2023 BASIC METAB OLIC PANEL carbon dioxide 26 mmol/ L 21-30 Not Available [facility] (Pre[facility]Op [facility]) [address] [place] [address] [place], [address], 02/19/2023 06:44:15 02/20/20 23 02/19/2023 BASIC METAB OLIC PANEL anion gap 5 mmol/ L 6-14 low Not Available [facility] ([facility]Op [facility]) [address] [place] [address] [place], [address], 02/19/2023 06:44:15 02/20/20 23 02/19/2023 BASIC METAB OLIC PANEL glucose 95 mg/dL 70-115 Not Available [facility] ([facility]Op [facility]) [address] [place] [address] [place], [address], 02/19/2023 06:44:15 02/20/20 23 02/19/2023 BASIC METAB OLIC PANEL BUN 32 mg/dL 9-20 high Not Available [facility] ([facility]Op [facility]) [address] [place] [address] [place], [address], 02/19/2023 06:44:15 02/20/20 23 02/19/2023 BASIC METAB OLIC PANEL creatinine 1.7 mg/dL 0.5-1. 5 high Not Available [facility] (Pre[facility]Op [facility]) [address] [place] [address] [place], [address], 02/19/2023 06:44:15 02/20/20 23 02/19/2023 BASIC METAB OLIC PANEL BUN/creatini ne ratio 19 ratio 10-20 Not Available [facility] (Pre-Op Clinic) [address] [place] [address] [place], [address], 02/19/2023 06:44:15 02/20/20 23 02/19/2023 BASIC METAB OLIC PANEL glom filtration rate TNP mL/mi n >60- GFR has only been valid ated for patie nts 18-70 years of age. Not Available [facility] (Pre[facility]Op [facility]) [address] [place] [address] [place], [address], 02/19/2023 06:44:15 02/20/20 23 02/19/2023 BASIC METAB OLIC PANEL osmolality (calculated) 296 mosmo l/kg 275-30 1 OSMOL ALITY IS A CALCU LATIO N UTILI ZING THE SERUM /PLAS MA SODIU M, GLUCO SE AND UREA NITRO GEN (BUN) LEVEL S. FOR THE MOST ACCUR ATE RESUL T A MEASU RED SERUM OSMOL ALITY IS CLAUDIO FUNG. Not Available [facility] (Pre-Op [facility]) [address] [place] [address] [place], [address], 02/19/2023 06:44:15 02/20/20 23 02/19/2023 BASIC METAB OLIC PANEL calcium 8.5 mg/dL 8.5-10 .8 Not Available [facility] (Pre[facility]Op [facility]) [address] [place] [address] [place], [address], 02/19/2023 06:44:15 02/20/20 23 02/19/2023 BASIC METAB OLIC PANEL note Unles s other hernandez noted testi ng perfo rmed at: [facility] [address] [place] [address] Arnaud mays MD Not Available [facility] (Pre[facility]Op [facility]) [address] [place] [address] [place], [address], 02/19/2023 06:44:15 04/29/19 24 04/29/2023 CULTU RE URINE results [facility] 04-30 600 >100, 000 COL/M L Gram Negat leonor Rods Not Available [facility] (Lab Registration) [address] [place] [address] [place], [address], 04/30/2023 06:02:04 04/29/19 24 04/29/2023 CULTU RE URINE note Unles s other hernandez noted testi ng perfo rmed at: [facility] [place] [address] [phone] Arnaud mays MD CLIA: [id number] Not Available [facility] (Lab Registration) [address] [place], [address], 04/30/2023 06:02:04 04/29/19 24 04/29/2023 CULTU RE URINE culccur ===== ===== ===== ===== ===== ===== ===== ===== ===== ===== ===== ===== ===== ===== ===== ===== ===== ===== ===== ===== ===== ===== ===== ===== Speci men NO.: [id number] Exam Statu s: Final Proce dure: CULTU RE URINE ===== ===== ===== ===== ===== ===== ===== ===== ===== ===== ===== ===== ===== ===== ===== ===== ===== ===== ===== ===== ===== ===== ===== ===== Iso/R esult : 01 Klebs iella pneum oniae ESBL Antim icrob ic/Do se LUCY Syste lucy Urine __ ___ ___ Ampic illin >16 R* R* Amp/S ulbac moore >16/8 R R Aztre onam >16 ESBL ESBL Cefaz pili >16 R* R* Cefep marco >16 R* R* Cefot axime >32 ESBL ESBL Cefox itin <=8 S S Cefta zidim e 16 ESBL ESBL Ceftr iaxon e >32 ESBL ESBL Cefur oxime >16 R* R* Cipro floxa moi <=1 S S Ertap enem <=0.5 S S Genta micin <=4 S S Levof loxac in <=2 S S Merop enem <=1 S S Nitro furan toin 64 I I Pip/T azo <=16 S S Tetra cycli ne <=4 S S Tobra mycin <=4 S S Trime th/Morton lfa >2/38 R R [facility] 04-30 600 >100, 000 COL/M L Gram Negat leonor Rods Not Available [facility] (Lab Registration) [address] , [place], [address], 05/01/2023 07:47:10 04/29/19 24 04/29/2023 CULTU RE URINE note Unles s other hernandez noted testi ng perfo rmed at: [facility] [place] [address] [phone] Arnaud mays MD CLIA: [id number] Not Available [facility] (Lab Registration) [address] , [place], [address], 05/01/2023 07:47:10 04/29/19 24 04/29/2023 bladd er scan (PROC ) Calculated Residual Urine: 699 ML Not Available [address], [address], 04/29/2023 11:45:28 04/29/19 24 04/29/2023 urina lysis , dipst ick Leukocytes (reference range) large Not Available [address], [address], 04/29/2023 11:44:38 04/29/19 24 04/29/2023 urina lysis , dipst ick Nitrite (reference range:) positi ve Not Available [facility] [address], [address], 04/29/2023 11:44:38 04/29/19 24 04/29/2023 urina lysis , dipst ick Urobilinogen (reference range) 1 Not Available [address], [address], 04/29/2023 11:44:38 04/29/19 24 04/29/2023 urina lysis , dipst ick Protein (reference range) 300 Not Available [address], [address], 04/29/2023 11:44:38 04/29/19 24 04/29/2023 urina lysis , dipst ick pH (reference range 5-8.5) 6.5 Not Available [address], [address], 04/29/2023 11:44:38 04/29/19 24 04/29/2023 urina lysis , dipst ick Blood (reference range:) large Not Available [address], [address], 04/29/2023 11:44:38 04/29/19 24 04/29/2023 urina lysis , dipst ick Specific [place] (reference range) 1.020 Not Available [address], [address], 04/29/2023 11:44:38 04/29/19 24 04/29/2023 urina lysis , dipst ick Ketone (reference range) trace Not Available [address], [address], 04/29/2023 11:44:38 04/29/19 24 04/29/2023 urina lysis , dipst ick Bilirubin (reference range) small Not Available [address], [address], 04/29/2023 11:44:38 04/29/19 24 04/29/2023 urina lysis , dipst ick Glucose (reference range) negati ve Not Available Izaiah Dylan[address], [address], 04/29/2023 11:44:38 02/22/20 23 02/21/2023 cardi ac clear ance* No observ ation record ed. [email or web address] [facility] [address] [place] [address] [place], [address], 02/24/2023 10:25:26 03/25/19 24 03/25/2023 CT, chest , w/o contr ast [facility] [address] [place] [address] Phone: Fax: Name: ROBERTO TOUSSAINT Exam Date: 024 : 949 Age 72 Gender : M Access ion: [id number] Physic amalia: JUSTO VU Facili ty: [facility] Facili ty HSV: Outpat ient Exam: CT CHEST W/O CT SCAN OF THE CHEST WITHOU T CONTRA ST COMPAR VIKTORIA: None HISTOR Y: Lung nodule follow -up. PROCED URE: Axial images were obtain ed from the lung apex to the mid abdome n by comput ed tomogr aphy.T his study was perfor med with techni ques to keep radiat ion doses as low as reason ably achiev able, (ALARA ). FINDIN GS: CHEST: There is no axilla ry adenop athy. There is no hilar or medias tinal adenop athy. Heart size is enlarg ed in size. There is athero sclero sis. There is no perica rdial or pleura l effusi on. There is eviden ce of prior granul omatou s diseas e. There is a consol idatio n within the left upper lobe which may be infect ious or inflam matory . There are scatte red areas of atelec tasis. Limite d images of the upper abdome n demons trate multip le bilate ral cystic lesion s in the kidney s which is incomp letely assess ed by lack of contra st. There is a hepati c cyst measur ing up to 1.3 cm. IMPRES HEATH: Consol idatio n within the left upper lobe may be infect ious or inflam matory . Correl ate with any prior imagin g, contin ued follow -up is recomm ended. Films review ed , interp reted and dictat ed by Dr. Reyes. Transc ribed by Socorro quintero PA-C. Dictat ed By: TIFFANY REYES Transc ribed By: Tiffany Reyes Transc ribed On: 10:48 AM Electr onical ly signed by: TIFFANY REYES Thank you for referr ROBERTO Lorenzana to [facility]. Legall y authen ticate d by POPE TIFFANY Collins 03-25 10:48: 47 CC'ed Logic: Orderi ng Provid er: MIRELLA KEMP Attend ing Provid er: MIRELLA KEMP Referr ing Provid er: MIRELLA KEMP Admitt ing Provid er: MIRELLA KEMP [email or web address] [facility] - Physical Therapy [address], [place], [address], 04/05/2023 08:15:45 01/16/20 24 11/11/2023 PET-C T, skull base to mid-t high scan No observ ation record ed. [facility] ([facility]) [address], [place], [address], 01/20/2024 11:35:25 06/02/19 25 06/01/2024 CT, chest , w/o contr ast No observ ation record ed. [facility] [address], [place], [address], 06/04/2024 15:30:09 Result Notes None recorded. 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 SHAREE Lopez LPNT - [place] & [place] 4 10:52:11 Chronic renal failure 96366914 Active 2022 SHAREE Lopez - LPNT - [place] & [place] 4 10:52:11 Heart failure 73905817 Active 2022 SHAREE Lopez - LPNT - [place] & [place] 4 10:52:11 Diastolic dysfunction 8147176 Active 2022 Anabella vyas, [place] - LPNT - [facility] & [place] 4 10:52:11 Anemia 913723914 Active 2022 Anabella Vernon null[place] - LP[facility] - & [place] 4 10:52:11 Acute stroke 4096329659136 04 Active 2022 An[place] vyas[place] - [facility] - & [place] 4 10:52:11 Disease of liver 186334564 Active 2022 An[place] vyas[place] - [facility] - & [place] 4 10:52:11 Hypercholes terolemia 07839669 Active 2022 An[place] vyas[place] - [facility] - & [place] 4 10:52:11 Gastroesoph ageal reflux disease 492729504 Active 2022 Anabella eVrnon null[place] - LP[facility] - & [place] 4 10:52:11 Kidney stone 91124760 Active 2022 Anabella Vernon [place] - [facility] - & [place] 4 10:52:11 Glaucoma 15692084 Active 2022 An[place] vy[place] - [facility] - & [place] 4 10:52:11 Arthritis 7690047 Active 2022 An[place] vyas[place] - [facility] - & [place] 4 10:52:11 Hypertensiv e disorder 49933281 Active 2022 Anbaella Vernon null, [place] - LPNT - [facility] & [place] 4 10:52:11 Benign prostatic hyperplasia with outflow obstruction 140357486 Active Anabella Vernon null[place] - [facility] - [place] & [place] 4 10:52:11 Problem Notes None recorded. Procedures Surgical History Date Name Laterality Status Provider Name and Address Organization Details Recorded Time 06/10/19 23 Cystoscopy-Male completed Venkatesh Hartley Jr, MD [address] [place] [address] Drive, [address], [place], [address], SHAREE - NT [facility] & [place] 06/09/2022 16:55:32 ureteroscopy completed Anabella TOLLIVER - LPNT [facility] & [place] 06/09/2022 13:23:50 Knee arthroscopy/surg frederick completed Anabella TOLLIVER - NT [facility] & [place] 06/09/2022 13:23:58 Imaging Results Imaging Date Name Status LastModified by Organiz ation Details LastModified Time 02/21/2023 cardiac clearance* completed [email or web address] [facility] [address] [place] [address] [place], [address], 02/24/2023 10:25:26 03/25/2023 CT, chest, w/o contrast completed [email or web address] [place] [address] - Physical Therapy [address] [facility], [place], [address], 04/05/2023 08:15:45 11/11/2023 PET-CT, skull base to mid-thigh scan completed [facility] ([facility]) [address] [facility], [place], [address], 01/20/2024 11:35:25 06/01/2024 CT, chest, w/o contrast completed [facility] [address], [place], [address], 06/04/2024 15:30:09 Procedure Notes None recorded. Medical Equipment None Reported. Allergies Allergen ID Allergen Name Allergen Category Reaction Reaction Severity Criticality Documentation Date Start Date Code Code System Note Provider Name and Address Organization Details Recorded Time 349937 No known allergy (situatio n) Not available Not available Not available Not available 03/23/2023 07567 [id number] SNOMED Anabella vyas [place] - LPNT [facility] & [place] 10:51:22 No known drug allergies Medications Name Sig Start Date Stop Date Status Note LastModified by Organization Details LastModified Time Anti-Diarrh eal (loperamide ) 2 mg tablet 1 tablet by oral route. active Not Available Not Available No t Available furosemide 40 mg tablet active Not Available Not Available Not Available cefazolin 1 gram solution for injection 1 g by injection route. 02/20 completed Not Available Not Available Not Available oxcarbazepi ne 150 mg tablet 300 mg by oral route. 02/20 completed Not Available Not Available Not Available ipratropium 0.5 mg-albutero l 3 mg (2.5 mg base)/3 mL nebulizatio n soln 3 mL by inhalatio n route. 02/20 completed Not Available Not Available Not Available albuterol sulfate 2.5 mg/3 mL (0.083 %) solution for nebulizatio n 2.5 mg by inhalatio n route. 02/20 completed Not Available Not Available Not Available loperamide 2 mg capsule active Not Available Not Available Not Available fexofenadin e 60 mg tablet active Not Available Not Available Not Available cetirizine 10 mg tablet active Not Available Not Available Not Available atorvastati n 10 mg tablet 1 tablet by oral route. active Not Available Not Available No t Available azithromyci n 250 mg tablet active Not Available Not Available Not Available hydrocodone 5 mg-acetamin ophen 325 mg tablet 1 tablet by oral route. active Not Available Not Available No t Available metoprolol succinate ER 200 mg tablet,exte nded release 24 hr active Not Available Not Available Not Available ondansetron HCl 4 mg tablet 1 tablet by oral route. active Not Available Not Available No t Available prednisone 20 mg tablet active Not Available Not Available Not Available isosorbide mononitrate ER 30 mg tablet,exte nded release 24 hr active Not Available Not Available Not Available metoprolol succinate ER 100 mg tablet,exte nded release 24 hr active Not Available Not Available Not Available sodium chloride 0.45 % intravenous solution 1000 mL by intraven. route. 02/20 completed Not Available Not Available Not Available rocuronium 10 mg/mL intravenous solution 100 mg by intraven. route. 02/19 completed Not Available Not Available Not Available oxcarbazepi ne 300 mg tablet 1 tablet by oral route. active Not Available Not Available No t Available levofloxaci n 250 mg tablet 05/02 completed Not Available Not Available Not Available amlodipine 5 mg tablet 10 mg by oral route. active Not Available Not Available No t Available peg-electro lyte solution 420 gram oral solution active Not Available Not Available Not Available aspirin 81 mg tablet,loy yed release 1 tablet by oral route. 2022 active Not Available Not Available Not Avai lable acetaminoph en 500 mg tablet 1 tablet by oral route. active Not Available Not Available No t Available triamterene 37.5 mg-hydrochl orothiazide 25 mg capsule 1 tablet by oral route. active Not Available Not Available No t Available guaifenesin 100 mg/5 mL oral liquid 10 mL by oral route. active Not Available Not Available No t Available oxycodone-a cetaminophe n 5 mg-325 mg tablet 1 tablet by oral route. 02/20 completed Not Available Not Available Not Available lorazepam 0.5 mg tablet active Not Available Not Available Not Available tamsulosin 0.4 mg capsule Take 1 tablet by oral route. active Not Available Not Available No t Available amlodipine 10 mg tablet 1 tablet by oral route. active Not Available Not Available No t Available dexamethaso ne 2 mg tablet active Not Available Not Available Not Available cephalexin 500 mg capsule 03/23 completed Not Available Not Available Not Available pantoprazol e 40 mg tablet,loy yed release 40 mg by oral route. 02/20 completed Not Available Not Available Not Available ferrous sulfate 325 mg (65 mg iron) tablet 1 tablet by oral route. active Not Available Not Available No t Available neomycin-po lymyxin-dex ameth 3.5 mg/mL-10,00 0 unit/mL-0.1 % eye drops active Not Available Not Available Not Available dexamethaso ne 4 mg tablet Take 1 tablet twice a day by oral route for 14 days. active Not Available Not Available No t Available Precedex 100 mcg/mL intravenous solution 200 microgram s by intraven. route. 02/18 completed Not Available Not Available Not Available fentanyl (PF) 50 mcg/mL injection solution 100 microgram s by injection route. 02/18 completed Not Available Not Available Not Available triamterene 37.5 mg-hydrochl orothiazide 25 mg tablet 1 tablet by oral route. active Not Available Not Available No t Available omeprazole 20 mg capsule,del ayed release 1 tablet by oral route. active Not Available Not Available No t Available budesonide 0.5 mg/2 mL suspension for nebulizatio n 0.5 mg by inhalatio n route. 02/20 completed Not Available Not Available Not Available aspirin 81 mg chewable tablet active Not Available Not Available Not Available lisinopril 5 mg tablet active Not Available Not Available Not Available hydrochloro thiazide 25 mg tablet active Not Available Not Available No t Available dexamethaso ne sodium phosphate 4 mg/mL injection solution 8 mg by injection route. 02/19 completed Not Available Not Available Not Available lorazepam 1 mg tablet active Not Available Not Available No t Available levofloxaci n 500 mg tablet Take 1 tablet every 24 hours by oral route. active Not Available Not Available No t Available levofloxaci n 750 mg tablet 05/02 completed Not Available Not Available Not Available albuterol sulfate HFA 90 mcg/actuati on aerosol inhaler medicatio n:Albuter ol Sulfate HFA Inhalatio n Aerosol Solution 108 (90 Base) MCG/ACT d ose:0.0 route:IN HALED starla quency:ND N active Not Available Not Available No t Available timolol maleate 0.5 % eye drops 1 drop by ophthalmi c route. active Not Available Not Available No t Available cefdinir 300 mg capsule Take 1 capsule every 12 hours by oral route. active Not Available Not Available No t Available fluticasone propionate 50 mcg/actuati on nasal spray,suspe nsion active Not Available Not Available Not Available finasteride 5 mg tablet Take 1 tablet every day by oral route. active Not Available Not Available No t Available amoxicillin 875 mg-potassiu m clavulanate 125 mg tablet active Not Available Not Available Not Available amoxicillin 500 mg-potassiu m clavulanate 125 mg tablet active Not Available Not Available Not Available oxycodone 5 mg tablet Take 1 tablet twice a day by oral route for 30 days. active Not Available Not Available No t Available midazolam 1 mg/mL injection solution 2 mg by injection route. 02/18 completed Not Available Not Available Not Available neomycin 3.5 mg/g-polymy jaqueline B 10,000 unit/g-dexa meth 0.1 % eye oint active Not Available Not Available Not Available sodium chloride 0.9 % (flush) injection syringe 10 mL by injection route. 02/20 completed Not Available Not Available Not Available hydromorpho ne 1 mg/mL injection syringe 1 mg by injection route. 02/18 completed Not Available Not Available Not Available azithromyci n 500 mg tablet active Not Available Not Available Not Available fentanyl (PF) 50 mcg/mL injection syringe 25 microgram s by injection route. 02/20 completed Not Available Not Available Not Available escitalopra m 10 mg tablet active Not Available Not Available Not Available amoxicillin -potassium clavulanate 1,000 mg-62.5 mg tablet,ext. rel 12hr active Not Available Not Available Not Available escitalopra m 5 mg tablet active Not Available Not Available Not Available Acid Gone Antacid 95 mg-358 mg/15 mL oral suspension 30 mL by oral route. active Not Available Not Available No t Available sodium chloride 0.9 % intravenous piggyback 100 mL by intraven. route. active Not Available Not Available No t Available lidocaine (PF) 20 mg/mL (2 %) injection solution 5 mL by injection route. 02/19 completed Not Available Not Available Not Available ondansetron HCl (PF) 4 mg/2 mL injection solution 4 mg by injection route. 02/20 completed Not Available Not Available Not Available Pulmicort Flexhaler 90 mcg/actuati on breath activated active Not Available Not Available No t Available Symbicort 160 mcg-4.5 mcg/actuati on HFA aerosol inhaler 2 pufs by inhalatio n route. active Not Available Not Available No t Available Lantus Solostar U-100 Insulin 100 unit/mL (3 mL) subcutaneou s pen active Not Available Not Available Not Available oseltamivir 30 mg capsule active Not Available Not Available Not Available Mucinex DM 60 mg-1,200 mg tablet,exte nded release 12 hr Take 1 tablet as needed by oral route at bedtime for 30 days. 2024 active Not Available Not Available Not Avai lable lidocaine 2 % mucosal jelly in applicator 10 mL by mucous mem route. 02/18 completed Not Available Not Available Not Available GaviLyte-G 236 gram-22.74 gram-6.74 gram-5.86 gram oral solution active Not Available Not Available Not Available Allergy Relief (fexofenadi ne) 180 mg tablet active Not Available Not Available Not Available Xarelto 20 mg tablet active Not Available Not Available No t Available Refresh Lacri-Lube 56.8 %-42.5 % eye ointment medicatio n:Refresh Lacri-Lub e Ophthalmi c Ointment dose:0.0 route:RT EYE frequ ency:BEDT MARCO active Not Available Not Available No t Available Eliquis 5 mg tablet active Not Available Not Available No t Available Eliquis 2.5 mg tablet active Not Available Not Available No t Available One Daily Multivitami n 400 mcg tablet 1 tablet by oral route. active Not Available Not Available No t Available Anoro Ellipta 62.5 mcg-25 mcg/actuati on powder for inhalation active Not Available Not Available N ot Available morphine 10 mg/mL intravenous syringe 5 mg by intraven. route. 02/20 completed Not Available Not Available Not Available Stiolto Respimat 2.5 mcg-2.5 mcg/actuati on solution for inhalation 2 pufs by inhalatio n route. active Not Available Not Available No t Available hydromorpho ne 1 mg/mL injection solution 0.5 mg by injection route. 02/20 completed Not Available Not Available Not Available Trelegy Ellipta 100 mcg-62.5 mcg-25 mcg powder for inhalation active Not Available Not Available N ot Available Lidocaine Pain Relief 4 % topical patch active Not Available Not Available Not Available Lokelma 10 gram oral powder packet active Not Available Not Available Not Available ketamine 50 mg/5 mL (10 mg/mL) in sodium chlor,iso-o smotic inj syringe 10 mg by injection route. 02/18 completed Not Available Not Available Not Available Vitals Date Recorded Body temperature Provider Name a nd Address Organization Details Last Updated DateTime 01/28/2023 97.9 [degF] Anabella TOLLIVER - LPNT - [facility] & [place] 01/28/2023 13:10:38 Date Recorded Body temperature Provider Name a nd Address Organization Details Last Updated DateTime 03/23/2023 97.9 [degF] Anabella TOLLIVER - LPNT - [facility] & [place] 03/23/2023 10:51:14 Date Recorded Body temperature Body height Body mass index (BMI) Body weight Provider Name and Address Organization Details Last Updated DateTime 04/29/2023 97.9 [degF] 182.88 cm 33.2 kg/m2 234713.13 g [facility] & [place] 04/29/2023 10:18:52 Date Recorded Body height Body mass index (BMI) Body weight Body temperature Provider Name and Address Organization Details Last Updated DateTime 05/27/2023 182.88 cm 28.5 kg/m2 07790.4 g 97.3 [degF] Salud TOLLIVER - [facility] & [place] 05/27/2023 11:23:11 Date Recorded Body height Body mass index (BMI) Body weight Body temperature Provider Name and Address Organization Details Last Updated DateTime 11/23/2023 182.88 cm 28.5 kg/m2 79197.4 g 97.7 [degF] [facility] & [place] 11/23/2023 09:14:40 Social History Question Answer Notes LastModified by Organizat ion Details LastModified Time Tobacco Smoking Status Never Smoker Anabella vyas, SHAREE [facility] & [place] 06/02/2022 11:50:50 What Is Your Level Of Alcohol Consumption? None Information not available 06/02/2022 Sex: Unknown Functional Status None recorded. Mental Status None recorded. Family History Relationship Description Onset Age of this Age Resolved Age Notes LastModified by Organization Details LastModified Time Mother Family history unknown dec Not available 2022 13:23:21 Sister Family history unknown x3 dec [email or web address] Not available 2022 13:23:21 Brother Family history unknown Not available 2022 13:23:21 Father Malignant neoplastic disease dec [email or web address] Not available 2022 13:23:30 Medical History No medical history recorded. Past Encounters Encounter ID Performer Location Encounter Start Date Encounter Closed Date Diagnosis/Indication Diagnosis SNOMED-CT Code Diagnosis ICD10 Code Diagnosis Note [id number] Venkatesh Hartley Jr, MD [facility] Urology [address] [address] 06/09/2022 13:36:19 06/09/2022 15:11:25 Retention of urine 548973726 R33.9 71-year-ol d male with multiple medical problems presents with urinary retention. Cystoscopy reveals a long prostatic urethra with trilobar hyperplasi a and large median lobe. His bladder shows chronic obstructiv e changes with 3+ trabeculat ion and cellules. There is some bullous edema present from his Jason catheter. His bladder was filled to 500 cc but he could not void. A Jason catheter was replaced. We discussed treatment options including an indwelling Jason catheter versus in and out catheteriz ations versus surgical management . TURP is the surgical management of choice. Patient is not a great surgical candidate and we will get preoperati ve clearance from his cardiologi st who is Dr. Dodge in [place]. If he is deemed a reasonable candidate we will set him up for TURP. [id number] Venkatesh Hartley Jr, MD [facility] [address] [address] 01/28/2023 12:36:30 01/28/2023 13:36:01 Incomplete emptying of urinary bladder due to benign prostatic hypertrophy 9850665280 33440 N40.1 patient with urinary retention. His retention has been managed with a Jason catheter now for several months. States it is being changed on a monthly basis. Cardiac clearance was recently given per Dr. Nain bower as office at [facility]. Patient is not a great surgical candidate. He is on Xarelto. His cardiologi st has deemed him a reasonable surgical candidate. We will get a preop clearance from anesthesio logist at [facility]. We will stop his blood thinners prior to his TURP. We will start him on finasterid e today to help decrease any possible prostate bleeding. [id number] Venkatesh Hartley Jr, MD [facility] [address] [address] 03/23/2023 10:46:37 03/23/2023 11:42:10 Incomplete emptying of urinary bladder due to benign prostatic hypertrophy 8950564342 10257 N40.1 patient with history of urinary retention secondary to prostate enlargemen t. He underwent a TURP at [facility] on February 18. He returns today with his Jason catheter in place. He should have been in 2-3 weeks prior. He denies any problems with his catheter. Patient is legally blind. A voiding trial was performed today instilling 350 cc of fluid into his bladder. We then removed the catheter and he was able to void 200 cc. Patient was allowed to go home without his Jason catheter. Order was given to discontinu e the finasterid e and we will keep him on the tamsulosin for now. A prescripti on for cefdinir was given to cover him for the prolonged catheteriz ations and removal. [id number] Venkatesh Hartley Jr, MD [facility] [address] [address] 04/29/2023 10:18:10 04/29/2023 11:38:41 Recurrent urinary tract infection 513108039 N39.0 Patient with urinary symptoms of frequency, urgency and hematuria. His urine appears infected. We will culture the urine and patient placed on a course of cefdinir today. He will follow up in 1 month. Incomplete emptying of urinary bladder due to benign prostatic hypertrophy [id number] 34310 N40.1 patient with history of urinary retention secondary to prostate enlargemen t. He underwent a TURP at [facility] on February 18. patient with complaints of frequency, urgency and gross hematuria. He has evidence of a urinary tract infection which may be contributi ng to his symptoms. We also discussed that hematuria, urgency and frequency could be normal sequela of his TURP. Patient also takes Xarelto for other medical issues. [id number] Venkatesh Hartley Jr, MD [facility] [address] [address] 05/27/2023 11:21:35 05/27/2023 12:30:45 Incomplete emptying of urinary bladder due to benign prostatic hypertrophy 1165269521 32992 N40.1 patient with history of urinary retention secondary to prostate enlargemen t. He underwent a TURP at [facility] on February 18. He states he is voiding better and he is now ambulatory but PVR still elevated at 671 cc. Recurrent urinary tract infection N39.0 Pt with uti's due to incomplete emptying. To increase fluids and observe timed voiding. [id number] Venkatesh Hartley Jr, MD [facility] Urology [address] [address] 11/23/2023 09:08:44 11/23/2023 09:50:37 Incomplete emptying of urinary bladder due to benign prostatic hypertrophy [id number] 01615 N40.1 patient with history of urinary retention secondary to prostate enlargemen t. He underwent a TURP at [facility] on February 18. He states he is voiding better and he is now ambulatory but PVR still elevated due to bladder decompensa tion. Recurrent urinary tract infection 248451734 N39.0 Pt with uti's due to incomplete emptying. To increase fluids and observe timed voiding. Health Concerns Section Related Observation LastModified by Organization Detai ls LastModified Time None Recorded Concern Status LastModified by Organization Details LastModified Time None Recorded Advance Directives Directive None Recorded Payers Encounter Date Sequence Insurance Name Policy Number Policy Hawkins Covered Member ID Hawkins Member ID Guarantor Name 01/28/2023 1 [place] Roberto Jadepe [id number] Roberto Thorpe 01/28/2023 2 [place] [employer] CHOICES - FFS/TRADITIO NAL Roberto Thorpe [id number] Roberto Thorpe 03/23/2023 1 [place] Roberto Thorpe [id number] Roberto Thorpe 03/23/2023 2 MEDICAID-[facility] HE[facility] CHOICES - FFS/TRADITIO NAL Roberto Thorpe [id number] Roberto Thorpe 04/29/2023 1 [place] Roberto Thorpe [id number] Roberto Thorpe 04/29/2023 2 MEDICAID-[facility] HEALTH CHOICES - FFS/TRADITIO NAL Roberto Thorpe [id number] Roberto Thorpe 05/27/2023 1 [place] Roberto Thorpe [id number] Roberto Thorpe 05/27/2023 2 MEDICAID-[facility] [email or web address] - FFS/TRADITIO NAL Roberto Toussaint [id number] Roberto Toussaint 11/23/2023 1 [place] (MEDICARE) Roberto Toussaint [id number] Roberto Toussaint 11/23/2023 2 MEDICAID-[facility] [email or web address] - FFS/TRADITIO NAL Roberto Toussaint [id number] Roberto Toussaint Notes Date Note Type Note Provider Name and Address Organization Details Recorded Time 01/28/2023 text/html patient is a 72-year-old black male with multiple medical problems including urinary retention. He was last seen in May 2022. At that time cystoscopy was performed showing trilobar hyperplasia with bladder outlet obstructive changes in the bladder. He has been managed with a Jason catheter since before that procedure. Patient also has a history of autosomal dominant polycystic kidney disease and left renal cyst and nonobstructing kidney stones. In his last visit we discussed a TURP and cardiology clearance was recommended. Months later he is seen his broke worker and has been deemed a acceptable risk for the TURP. He continues on Xarelto. He is legally blind. He lives in the senior care. Venkatesh Hartley Jr, MD [address] [place] [address], [address], [place], [address], [facility] & [place] 01/28/2023 14:59:58 03/23/2023 text/html patient is a 72-year-old black male with history of urinary retention. Cystoscopy has shown trilobar hyperplasia and patient underwent a TURP on February 18, 2023 at [facility]. There was a large median lobe that was resected. Patient's prostate was very large and resected in stages. Pathology from the prostatic chips showed no evidence of cancer. Patient returns today for a voiding trial but should have been scheduled for a voiding trial 2-3 weeks ago. He is had the same catheter in since discharge. Venkatesh Hartley Jr, MD [address], [address], [place], [address], [facility] 03/23/2023 12:37:30 04/29/2023 text/html Patient is a 72-year-old black male with a history of urinary retention. He underwent a TURP on February 18, 2023 at [facility]. Patient had a very large median lobe that was resected as well as bilobar hyperplasia. His prostate was very large and resected in stages. Prostate chips showed no evidence of cancer. Patient did not return for a voiding trial until March 23. In his last visit a voiding trial was performed and he was able to void 200 cc of the 350 cc placed into his bladder. He returns today with complaints of urinary frequency and urgency as well as hematuria. His urinalysis shows a large amount of red cells and leukocytes. It is nitrite positive. His bladder scan shows a residual of 699 cc. Venkatesh Hartley Jr, MD [address] [place] [address], [address], [address], [facility] & [place] 04/29/2023 16:45:15 05/27/2023 text/html Pt with h/o retention s/p TURP in 02/2023. He had a very large prostate and median lobe. He returns today in routine f/u. Bladder scan at last f/u in Apr still elevated at 691 but pt able to void. He does have h/o UTi's as well. He was previously in a wheelchair but is ambulatory today. He states he is voiding better but bladder scan still 671 cc. Urine cx at last visit with ES'BL e coli sensitive to the Cefdinir. Venkatesh Hatrley Jr, MD [address] [facility], [address], [place], [address], [facility] 08/21/2023 23:04:36 11/23/2023 text/html Patient is a 73 male with history of urinary retention. He is status post a TURP February 18, 2023. Patient had a very large gland with a large median lobe. He returns today in routine follow-up. He has not a great historian. States that he is urinating on his own volition. States he has some occasional incontinence and nocturia x2. He denies any symptoms of urinary tract infection. His postvoid residuals postop were noted still be elevated at over 600 cc.Patient is legally blind in does have some difficulties ambulating as a result. Venkatesh Hartley Jr, MD [address] [place] [address] Drive, [address], [place], [address], [place] - [facility] - [place] & [place] 11/23/2023 12:51:08
[2024-06-27 08:48] LABS: Chloride 102 mmol/L (98-107); Potassium 4.2 mmoL/L (3.5-5.1); Sodium 139 mmol/L (136-145)
[2024-06-27 08:51] LABS: Anion Gap 13.2 mEq/L (5-15); Blood Urea Nitrogen 25 mg/dl (9-20); Calcium 9.2 mg/dl (8.4-10.2); Carbon Dioxide 28 mmol/L (22.0-30.0); Estimated Glomerular Filt Rate 33 ml/min (>60); GFR (African American) 40 ML/MIN (>60); Glucose 75 mg/dl (74-100); Iron 64 ug/dL (49-181)
[2024-06-27 09:08] LABS: Total Iron Binding Capacity 309 ug/dL (261-462)
[2024-06-27 09:24] LABS: Ferritin 139 ng/ml (17.9-464)
[2024-07-02 12:11] LABS: Oxcarbazepine 9 ug/mL (10-35)
== END 2024-06-27 23:59 | disposition home or self-care (01) ==
PROVIDERS: PCP Nurse Practitioner Family; Visit Provider Nurse Practitioner Family
DX: D64.9 Anemia, unspecified (principal); F39 Unspecified mood [affective] disorder
CPT/HCPCS: 36415; 80048; 80183; 82728; 83540; 83550

== ENCOUNTER 2024-07-11 10:58 | Outpatient (CLI) | payer MEDICARE, MEDICAID, SELFPAY ==
--- OUTSIDE RECORDS SUMMARY | 2024-07-11 11:01 | XMS_ITS | Data Portability ---
Author Organization [facility] ADMIN Address [address] [place] [id number] Care Team Providers Care Chinchilla Farmer Name Role Phone ROSA HANDY Primary Care Provider [phone] Assessment No assessment recorded. Plan of Treatment Reminders Order Date Submit Date Provider Last Modified By Organization Details Last Modified Time Details Appointments FOLLOW UP 30 2024 10:00A M JUSTO VU MD Not available Not available Not available Lab culture, urine + sensitivi ty 2023 024 [email or web address] [facility] (Lab Registration) , [address] [place] [address] , [place], [address], 05/06/2023 07:44:10 urinalysi s, dipstick [address] [facility] [place], [address] [place] [address], [phone], 05/02/2023 09:19:22 Referral None recorded. Procedures bladder scan (PROC) [address] [facility] [place], [address] [place] [address], [phone], 05/02/2023 09:19:22 Surgeries None recorded. Imaging None recorded. Medication Orders cefdinir 300 mg capsule 2023 024 [place] [address] [facility] [place] [address] [address], [place], [address], 04/29/2023 16:44:27 cefdinir 300 mg capsule [address] [facility] [place], [facility] , [place], [address], 03/23/2023 12:36:21 finasteri de 5 mg tablet [address] [facility] [place], [facility] , [place], [address], 03/23/2023 12:36:44 Patient TargetsNo targets recorded. Patient InstructionsNo instructions recorded. Reason for Referral None Reported. Results Created Date Observation Date Name Description Value Unit Range Abnormal Flag Note LastModifiedBy Organization Detail LastModifiedTime 02/16/2002/15/2023 BASIC METAB OLIC PANEL sodium 133 mmol/ L 137-14 7 low Not Available [facility] (Pre-Op Clinic) [address] [place] [address] [place], [address], 02/15/2023 11:26:59 02/16/20 23 02/15/2023 BASIC METAB OLIC PANEL potassium 5.1 mmol/ L 3.5-5. 1 Not Available [facility] (Pre-Op Clinic) [address] [place] [address] [place], [address], 02/15/2023 11:26:59 02/16/20 23 02/15/2023 BASIC METAB OLIC PANEL chloride 93 mmol/ L 98-110 low Not Available [facility] (Pre-Op Clinic) [address] [place] [address] [place], [address], 02/15/2023 11:26:59 02/16/20 23 02/15/2023 BASIC METAB OLIC PANEL carbon dioxide 28 mmol/ L 21-30 Not Available [facility] (Pre-Op Clinic) [address] [place] [address] [place], [address], 02/15/2023 11:26:59 02/16/20 23 02/15/2023 BASIC METAB OLIC PANEL anion gap 12 mmol/ L 6-14 Not Available [facility] (Pre-Op Clinic) [address] [place] [address] [place], [address], 02/15/2023 11:26:59 02/16/20 23 02/15/2023 BASIC METAB OLIC PANEL glucose 84 mg/dL 70-115 Not Available [facility] (Pre-Op Clinic) [address] [place] [address] [place], [address], 02/15/2023 11:26:59 02/16/20 23 02/15/2023 BASIC METAB OLIC PANEL BUN 39 mg/dL 9-20 high Not Available [facility] (Pre-Op Clinic) [address] [place] [address] [place], [address], 02/15/2023 11:26:59 02/16/20 23 02/15/2023 BASIC METAB OLIC PANEL creatinine 2.1 mg/dL 0.5-1. 5 high Not Available [facility] (Pre-Op Clinic) [address] [place] [address] [place], [address], 02/15/2023 11:26:59 02/16/20 23 02/15/2023 BASIC METAB OLIC PANEL BUN/creatini ne ratio 19 ratio 10-20 Not Available [facility] (Pre-Op Clinic) [address] [place] [address] [place], [address], 02/15/2023 11:26:59 02/16/20 23 02/15/2023 BASIC METAB OLIC PANEL glom filtration rate TNP mL/mi n >60- GFR has only been valid ated for patie nts 18-70 years of age. Not Available [facility] (Pre-Op Clinic) [address] [place] [address] [place], [address], 02/15/2023 11:26:59 02/16/20 23 02/15/2023 BASIC METAB OLIC PANEL osmolality (calculated) 286 mosmo l/kg 275-30 1 OSMOL ALITY IS A CALCU LATIO N UTILI ZING THE SERUM /PLAS MA SODIU M, GLUCO SE AND UREA NITRO GEN (BUN) LEVEL S. FOR THE MOST ACCUR ATE RESUL T A MEASU RED SERUM OSMOL ALITY IS SUGGE STED. Not Available [facility] (Pre-Op Clinic) [address] [place] [address] [place], [address], 02/15/2023 11:26:59 02/16/20 23 02/15/2023 BASIC METAB OLIC PANEL calcium 9.4 mg/dL 8.5-10 .8 Not Available [facility] (Pre-Op Clinic) [address] [place] [address] [place], [address], 02/15/2023 11:26:59 02/16/20 23 02/15/2023 BASIC METAB OLIC PANEL note Unles s other hernandez noted testi ng perfo rmed at: [facility] [address] [place] [place] [address] Arnaud mays MD Not Available [facility] (Pre-Op Clinic) [address] [place] [address] [place], [address], 02/15/2023 11:26:59 02/19/20 23 02/18/2023 RFS-P ATHOL OGY SPECI MEN REQUE ST pathreq Patho logy [address] [place] [address] Phone or [phone] Fax Joseph almonte Jr., M.D., Medic al Direc tor [facility] [address] : [place] [address] Phone Numbe r: [phone] Arnaud mays M.D. PATHO LOGY REPOR T Patie nt Name: AUDRA MEJIA Date of : 1950 Age/S ex: 72/M Accou nt Numbe r: [id number] Medic al Recor d Numbe r: [id number] Order ing MD: RICCARDO HARTLEY AM Date Colle cted : 2022 Date Recei balta : 2022 Date Repor harsh : 02/23 Exam: Biops y Acces heath# : [id number] Labor atory #: [id number] Copie s To: Techn ician : Clini yobani Histo ry Benig n prost atic hyper plasi a, urine reten tion Previ ous Patie nt Histo ry and Files ROBERTO MORAN (08/12 9 M) i??SS N: [id number] ?? 1. S23-0 93284 , DateC ollec harsh: 06/22 A: SPLEN IC FLEXU RE BIOPS Y Diagn osis: Colon ic type mucos a with no signi fican t histo patho logic abnor malit ies ROGELIO 2. S22-0 66933 , Date ollec harsh: 12/15 A: COLON , POLYP , 12CM Diagn osis: Hyper plast ic polyp . B: COLON , POLYP , 7CM Diagn osis: Hyper plast ic polyp . C: COLON , POLYP , 5CM Diagn osis: Hyper plast ic polyp . 3. S21-0 12180 , Date ollec harsh: 09/29 A: RIGHT [...] nal Lymph Nodes (pN): pN1a 4. S21-0 21680 , Date ollec harsh: 09/25 A: CECUM [...] or high- grade dyspl albino 5. S21-0 09324 , Date ollec harsh: 07/10 A: ANTRU M, BIOPS Y Diagn osis: React leonor gastr opath y and mild chron ic gastr itis with intes tinal Legal ly authe ntica harsh by ARNAUD RENE MD 02-23 15:53 :00 metap lasia Negat leonor for dyspl albino FLP/p ah 6. S19-0 31167 , DateC ollec harsh: 09/07 A: SKIN, [...] inter preta tion rende red by Arnaud myas Jr., M.D. at [facility] Medic al [facility] , [address] [address] . Final Diagn osis BENIG N PROST ATIC HYPER PLASI A EJT/S M Stain *Recu [place] ;[place] [address] Legal ly authe ntica harsh by ARNAUD RENE MD 02-23 15:53 :00 Not Available [facility] (Pre-Op Clinic) [address] [place] [address] [place], [address], 02/23/2023 16:17:04 02/20/2002/19/2023 CBC W/ AUTO DIFF WBC 7.57 K/uL 4.5-11 .5 Not Available [facility] (Pre-Op Clinic) [address] [place] [address] [place], [address], 02/19/2023 06:08:08 02/20/20 23 02/19/2023 CBC W/ AUTO DIFF RBC 3.38 M/uL 4.0-5. 4 low Not Available [facility] (Pre-Op Clinic) [address] [place] [address] [place], [address], 02/19/2023 06:08:08 02/20/2002/19/2023 CBC W/ AUTO DIFF HGB 9.5 g/dL 14.0-1 8.0 low Not Available [facility] (Pre-Op Clinic) [address] [place] [address] [place], [address], 02/19/2023 06:08:08 02/20/2002/19/2023 CBC W/ AUTO DIFF HCT 28.8 % 40-54 low Not Available [facility] (Pre-Op Clinic) [address] [place] [address] [place], [address], 02/19/2023 06:08:08 02/20/2002/19/2023 CBC W/ AUTO DIFF MCV 85.2 fL 80.0-1 00.0 Not Available [facility] (Pre-Op Clinic) [address] [place] [address] [place], [address], 02/19/2023 06:08:08 02/20/2002/19/2023 CBC W/ AUTO DIFF MCH 28.1 pg 26.0-3 2.0 Not Available [facility] (Pre-Op Clinic) [address] [place] [address] [place], [address], 02/19/2023 06:08:08 02/20/2002/19/2023 CBC W/ AUTO DIFF MCHC 33.0 g/dL 32.0-3 6.0 Not Available [facility] (Pre-Op Clinic) [address] [place] [address] [place], [address], 02/19/2023 06:08:08 02/20/2002/19/2023 CBC W/ AUTO DIFF RDW 14.7 % 11.5-1 4.5 high Not Available [facility] (Pre-Op Clinic) [address] [place] [address] [place], [address], 02/19/2023 06:08:08 02/20/2002/19/2023 CBC W/ AUTO DIFF platelet count 244 K/uL 142-42 4 Not Available [facility] (Pre-Op Clinic) [address] [place] [address] [place], [address], 02/19/2023 06:08:08 02/20/2002/19/2023 CBC W/ AUTO DIFF MPV 9.1 fL 6.8-10 .2 Not Available [facility] (Pre-Op Clinic) [address] [place] [address] [place], [address], 02/19/2023 06:08:08 02/20/2002/19/2023 CBC W/ AUTO DIFF neutrophil % 81.2 % 50-70 high Not Available [facility] (Pre-Op Clinic) [address] [place] [address] [place], [address], 02/19/2023 06:08:08 02/20/20 23 02/19/2023 CBC W/ AUTO DIFF lymphocyte % 5.3 % 18.0-4 2.0 low Not Available [facility] (Pre-Op Clinic) [address] [place] [address] [place], [address], 02/19/2023 06:08:08 02/20/20 23 02/19/2023 CBC W/ AUTO DIFF monocyte % 10.2 % 2.0-11 .0 Not Available [facility] (Pre-Op Clinic) [address] [place] [address] [place], [address], 02/19/2023 06:08:08 02/20/2002/19/2023 CBC W/ AUTO DIFF eosinophil % 2.6 % 1.0-3. 0 Not Available [facility] (Pre-Op Clinic) [address] [place] [address] [place], [address], 02/19/2023 06:08:08 02/20/20 23 02/19/2023 CBC W/ AUTO DIFF basophil % 0.4 % 0.0-2. 0 Not Available [facility] (Pre-Op Clinic) [address] [place] [address] [place], [address], 02/19/2023 06:08:08 02/20/20 23 02/19/2023 CBC W/ AUTO DIFF immature granulocytes % 0.3 % 0.0-0. 8 Not Available [facility] (Pre-Op Clinic) [address] [place] [address] [place], [address], 02/19/2023 06:08:08 02/20/2002/19/2023 CBC W/ AUTO DIFF nucleated red blood cells % 0.0 % Not Available [facility] (Pre-Op Clinic) [address] [place] [address] [place], [address], 02/19/2023 06:08:08 02/20/20 23 02/19/2023 CBC W/ AUTO DIFF neutrophil # 6.15 K/uL Not Available [facility] (Pre-Op Clinic) [address] [place] [address] [place], [address], 02/19/2023 06:08:08 02/20/20 23 02/19/2023 CBC W/ AUTO DIFF lymphocyte # 0.40 K/uL Not Available [facility] (Pre-Op Clinic) [address] [place] [address] [place], [address], 02/19/2023 06:08:08 02/20/20 23 02/19/2023 CBC W/ AUTO DIFF monocyte # 0.77 K/uL Not Available [facility] (Pre-Op Clinic) [address] [place] [address] [place], [address], 02/19/2023 06:08:08 02/20/20 23 02/19/2023 CBC W/ AUTO DIFF eosinophil # 0.20 K/uL Not Available [facility] (Pre-Op Clinic) [address] [place] [address] [place], [address], 02/19/2023 06:08:08 02/20/20 23 02/19/2023 CBC W/ AUTO DIFF basophil # 0.03 K/uL Not Available [facility] (Pre-Op Clinic) [address] [place] [address] [place], [address], 02/19/2023 06:08:08 02/20/20 23 02/19/2023 CBC W/ AUTO DIFF immature gramulocytes # 0.02 K/uL Not Available [facility] (Pre-Op Clinic) [address] [place] [address] [place], [address], 02/19/2023 06:08:08 02/20/20 23 02/19/2023 CBC W/ AUTO DIFF nucleated red blood cells # 0.00 k/uL Not Available [facility] (Pre-Op Clinic) [address] [place] [address] [place], [address], 02/19/2023 06:08:08 02/20/20 23 02/19/2023 CBC W/ AUTO DIFF manual differential NO Not Available [facility] (Pre-Op Clinic) [address] [place] [address] [place], [address], 02/19/2023 06:08:08 02/20/20 23 02/19/2023 CBC W/ AUTO DIFF note Unles s other hernandez noted testi ng perfo rmed at: [facility] [address] [place] [address] Arnaud mays MD Not Available [facility] (Pre-Op Clinic) [address] [place] [address] [place], [address], 02/19/2023 06:08:08 02/20/20 23 02/19/2023 BASIC METAB OLIC PANEL sodium 139 mmol/ L 137-14 7 Not Available [facility] (Pre-Op Clinic) [address] [place] [address] [place], [address], 02/19/2023 06:44:15 02/20/20 23 02/19/2023 BASIC METAB OLIC PANEL potassium 4.3 mmol/ L 3.5-5. 1 Not Available [facility] (Pre-Op Clinic) [address] [place] [address] [place], [address], 02/19/2023 06:44:15 02/20/20 23 02/19/2023 BASIC METAB OLIC PANEL chloride 108 mmol/ L 98-110 Not Available [facility] (Pre-Op Clinic) [address] [place] [address] [place], [address], 02/19/2023 06:44:15 02/20/20 23 02/19/2023 BASIC METAB OLIC PANEL carbon dioxide 26 mmol/ L 21-30 Not Available [facility] (Pre-Op Clinic) [address] [place] [address] [place], [address], 02/19/2023 06:44:15 02/20/20 23 02/19/2023 BASIC METAB OLIC PANEL anion gap 5 mmol/ L 6-14 low Not Available [facility] (Pre-Op Clinic) [address] [place] [address] [place], [address], 02/19/2023 06:44:15 02/20/20 23 02/19/2023 BASIC METAB OLIC PANEL glucose 95 mg/dL 70-115 Not Available [facility] (Pre-Op Clinic) [address] [place] [address] [place], [address], 02/19/2023 06:44:15 02/20/20 23 02/19/2023 BASIC METAB OLIC PANEL BUN 32 mg/dL 9-20 high Not Available [facility] (Pre-Op Clinic) [address] [place] [address] [place], [address], 02/19/2023 06:44:15 02/20/20 23 02/19/2023 BASIC METAB OLIC PANEL creatinine 1.7 mg/dL 0.5-1. 5 high Not Available [facility] (Pre-Op Clinic) [address] [place] [address] [place], [address], 02/19/2023 06:44:15 02/20/20 23 02/19/2023 BASIC METAB OLIC PANEL BUN/creatini ne ratio 19 ratio 10-20 Not Available [facility] (Pre-Op Clinic) [address] [place] [address] [place], [address], 02/19/2023 06:44:15 02/20/20 23 02/19/2023 BASIC METAB OLIC PANEL glom filtration rate TNP mL/mi n >60- GFR has only been valid ated for patie nts 18-70 years of age. Not Available [facility] (Pre-Op Clinic) [address] [place] [address] [place], [address], 02/19/2023 06:44:15 02/20/20 23 02/19/2023 BASIC METAB OLIC PANEL osmolality (calculated) 296 mosmo l/kg 275-30 1 OSMOL ALITY IS A CALCU LATIO N UTILI ZING THE SERUM /PLAS MA SODIU M, GLUCO SE AND UREA NITRO GEN (BUN) LEVEL S. FOR THE MOST ACCUR ATE RESUL T A MEASU RED SERUM OSMOL ALITY IS CLAUDIO FUNG. Not Available [facility] (Pre-Op Clinic) [address] [place] [address] [place], [address], 02/19/2023 06:44:15 02/20/20 23 02/19/2023 BASIC METAB OLIC PANEL calcium 8.5 mg/dL 8.5-10 .8 Not Available [facility] (Pre-Op Clinic) [address] [place] [address] [place], [address], 02/19/2023 06:44:15 02/20/20 23 02/19/2023 BASIC METAB OLIC PANEL note Unles s other hernandez noted testi ng perfo rmed at: [facility] [address] [place] [address] Arnaud mays MD Not Available [facility] (Pre-Op Clinic) [address] [place] [address] [place], [address], 02/19/2023 06:44:15 04/29/19 24 04/29/2023 CULTU RE URINE results [facility] 04-30 600 >100, 000 COL/M L Gram Negat leonor Rods Not Available [facility] (Lab Registration) [address] [place] [address] [place], [address], 04/30/2023 06:02:04 04/29/19 24 04/29/2023 CULTU RE URINE note Unles s other hernandez noted testi ng perfo rmed at: [facility] [address] [address] [phone] Arnaud mays MD CLIA: [id number] Not Available [facility] (Lab Registration) [address] [place], [address], 04/30/2023 06:02:04 04/29/19 24 04/29/2023 CULTU RE URINE culccur ===== ===== ===== ===== ===== ===== ===== ===== ===== ===== ===== ===== ===== ===== ===== ===== ===== ===== ===== ===== ===== ===== ===== ===== Speci men NO.: [id number] Exam Statu s: Final Proce dure: [...] L Gram Negat leonor Rods Not Available [facility] (Lab Registration) [address] , [place], [address], 05/01/2023 07:47:10 04/29/19 24 04/29/2023 CULTU RE URINE note Unles s other hernandez noted testi ng perfo rmed at: [facility] [place] [address] [phone] Arnaud mays MD CLIA: [id number] Not Available [facility] (Lab Registration) [address] , [place], [address], 05/01/2023 07:47:10 04/29/19 24 04/29/2023 bladd er scan (PROC ) Calculated Residual Urine: 699 ML Not Available [address], [address], 04/29/2023 11:45:28 04/29/19 24 04/29/2023 urina lysis , dipst ick Leukocytes (reference range) large Not Available [address], [address], 04/29/2023 11:44:38 04/29/19 24 04/29/2023 urina lysis , dipst ick Nitrite (reference range:) positi ve Not Available [facility] [address], [address], 04/29/2023 11:44:38 04/29/19 24 04/29/2023 urina lysis , dipst ick Urobilinogen (reference range) 1 Not Available [address], [address], 04/29/2023 11:44:38 04/29/19 24 04/29/2023 urina lysis , dipst ick Protein (reference range) 300 Not Available [address], [address], 04/29/2023 11:44:38 04/29/19 24 04/29/2023 urina lysis , dipst ick pH (reference range 5-8.5) 6.5 Not Available [address], [address], 04/29/2023 11:44:38 04/29/19 24 04/29/2023 urina lysis , dipst ick Blood (reference range:) large Not Available [address], [address], 04/29/2023 11:44:38 04/29/19 24 04/29/2023 urina lysis , dipst ick Specific Lawrence (reference range) 1.020 Not Available [address], [address], 04/29/2023 11:44:38 04/29/19 24 04/29/2023 urina lysis , dipst ick Ketone (reference range) trace Not Available [address], [address], 04/29/2023 11:44:38 04/29/19 24 04/29/2023 urina lysis , dipst ick Bilirubin (reference range) small Not Available [address], [address], 04/29/2023 11:44:38 04/29/19 24 04/29/2023 urina lysis , dipst ick Glucose (reference range) negati ve Not Available [facility] [address], [address], 04/29/2023 11:44:38 02/22/20 23 02/21/2023 cardi ac clear ance* No observ ation record ed. [email or web address] [facility] [address] [place] [address] [place], [address], 02/24/2023 10:25:26 03/25/19 24 03/25/2023 CT, chest , w/o contr ast [facility] Hospit [facility] [address] [place] [address] Phone: Fax: Name: ROBERTO TOUSSAINT Exam Date: 024 : 949 Age 72 Gender : M Access ion: [id number] Physic amalia: JUSTO VU Facili ty[facility] Facili ty HSV: Outpat ient [...] Thank you for referr ROBERTO Lorenzana to [facility] Hospit [facility]. Legall y authen ticate d by POPE TIFFANY Collins 03-25 10:48: 47 CC'ed Logic: Orderi ng Provid er: MIRELLA KEMP Attend ing Provid er: MIRELLA KEMP Referr ing Provid er: MIRELLA KEMP Admitt ing Provid er: MIRELLA KEMP [email or web address] [facility] [address], [place], [address], 04/05/2023 08:15:45 01/16/20 24 11/11/2023 PET-C T, skull base to mid-t high scan No observ ation record ed. [facility] ([facility]) [address], [place], [address], 01/20/2024 11:35:25 06/02/19 25 06/01/2024 CT, chest , w/o contr ast No observ ation record ed. [facility] [address], [place], [address], 06/04/2024 15:30:09 Result Notes None recorded. 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 SHAREE Lopez [facility] - [place] & [place] 4 10:52:11 Chronic renal failure 39879117 Active 2022 SHAREE Lopez - [facility] - [place] & [place] 4 10:52:11 Heart failure 87183316 Active 2022 SHAREE Lopez - [facility] - [place] & [place] 4 10:52:11 Diastolic dysfunction 3238389 Active 2022 Anabella vyas, [place] - [facility] - [facility] & [place] 4 10:52:11 Anemia 436884627 Active 2022 Anabella Vernon null[place] - [facility] - & [place] 4 10:52:11 Acute stroke 3795259169963 04 Active 2022 Anabella vy[place] - [facility] - & [place] 4 10:52:11 Disease of liver 979799483 Active 2022 An[place] - [facility] - & [place] 4 10:52:11 Hypercholes terolemia 31692969 Active 2022 Anabella vays[place] - [facility] - & [place] 4 10:52:11 Gastroesoph ageal reflux disease 097845804 Active 2022 Anabella Vernon [place] - [facility] - & [place] 4 10:52:11 Kidney stone 80261659 Active 2022 Anabella [place] - [facility] - & [place] 4 10:52:11 Glaucoma 50377983 Active 2022 Anabella vyas[place] - [facility] - & [place] 4 10:52:11 Arthritis 3278069 Active 2022 Anabella vyas[place] - [facility] - & [place] 4 10:52:11 Hypertensiv e disorder 94324304 Active 2022 Anabella Vernon null[place] - [facility] - [facility] & [place] 4 10:52:11 Benign prostatic hyperplasia with outflow obstruction 565389734 Active Anabella Vernon null[place] - [facility] - [place] & [place] 4 10:52:11 Problem Notes None recorded. Procedures Surgical History Date Name Laterality Status Provider Name and Address Organization Details Recorded Time 06/10/19 23 Cystoscopy-Male completed Venkatesh Hartley Jr, MD [address] [place] [address] Drive, [address], [place], [address], SHAREE - NT [facility] & [place] 06/09/2022 16:55:32 ureteroscopy completed Anabella TOLLIVER - LPNT [facility] & [place] 06/09/2022 13:23:50 Knee arthroscopy/surg frederick completed Anabella TOLLIVER - NT [facility] & [place] 06/09/2022 13:23:58 Imaging Results Imaging Date Name Status LastModified by Organiz ation Details LastModified Time 02/21/2023 cardiac clearance* completed [id number] [facility] [address] [place] [address] [place], [address], 02/24/2023 10:25:26 03/25/2023 CT, chest, w/o contrast completed [email or web address] [place] [address] - Physical Therapy [address] [facility], [place], [address], 04/05/2023 08:15:45 11/11/2023 PET-CT, skull base to mid-thigh scan completed [facility] ([facility]) [address] [facility], [place], [address], 01/20/2024 11:35:25 06/01/2024 CT, chest, w/o contrast completed [facility] [address], [place], [address], 06/04/2024 15:30:09 Procedure Notes None recorded. Medical Equipment None Reported. Allergies Allergen ID Allergen Name Allergen Category Reaction Reaction Severity Criticality Documentation Date Start Date Code Code System Note Provider Name and Address Organization Details Recorded Time 678001 No known allergy (situatio n) Not available Not available Not available Not available 03/23/2023 88974 6003 SNOMED Anabella vyas [place] - LPNT [facility] & [place] 10:51:22 No known drug allergies Medications Name [...] Base) MCG/ACT d ose:0.0 route:IN HALED starla quency:NH N active Not Available Not Available No [...] [degF] Anabella TOLLIVER - LPNT - [facility] & [place] 01/28/2023 13:10:38 Date Recorded Body temperature Provider Name a nd Address Organization Details Last Updated DateTime 03/23/2023 97.9 [degF] Anabella TOLLIVER - [facility] - [facility] & [place] 03/23/2023 10:51:14 Date Recorded Body temperature Body height Body mass index (BMI) Body weight Provider Name and Address Organization Details Last Updated DateTime 04/29/2023 97.9 [degF] 182.88 cm 33.2 kg/m2 576619.13 g [facility] [place] 04/29/2023 10:18:52 Date Recorded Body height Body mass index (BMI) Body weight Body temperature Provider Name and Address Organization Details Last Updated DateTime 05/27/2023 182.88 cm 28.5 kg/m2 63223.4 g 97.3 [degF] Salud TOLLIVER - [facility] & [place] 05/27/2023 11:23:11 Date Recorded Body height Body mass index (BMI) Body weight Body temperature Provider Name and Address Organization Details Last Updated DateTime 11/23/2023 182.88 cm 28.5 kg/m2 23216.4 g 97.7 [degF] Anabella [facility] & [place] 11/23/2023 09:14:40 Social History Question Answer Notes LastModified by Organizat ion Details LastModified Time Tobacco Smoking Status Never Smoker Anabella vyas, [facility] & [place] 06/02/2022 11:50:50 What Is Your Level Of Alcohol Consumption? None [email or web address] Information not available 06/02/2022 Sex: Unknown Functional Status None recorded. Mental Status None recorded. Family History Relationship Description Onset Age of this Age Resolved Age Notes LastModified by Organization Details LastModified Time Mother Family history unknown dec Not available 2022 13:23:21 Sister Family history unknown x3 dec [email or web address] Not available 2022 13:23:21 Brother Family history unknown [email or web address] Not available 2022 13:23:21 Father Malignant neoplastic disease dec [email or web address] Not available 2022 13:23:30 Medical History No medical history recorded. Past Encounters Encounter ID Performer Location Encounter Start Date Encounter Closed Date Diagnosis/Indication Diagnosis SNOMED-CT Code Diagnosis ICD10 Code Diagnosis Note [id number] Venkatesh Hartley Jr, MD [facility] [address] [address] 06/09/2022 13:36:19 06/09/2022 15:11:25 Retention of urine 350088066 R33.9 71-year-ol d male with multiple medical [...] cardiologi st who is Dr. Dodge in [place]. If he is deemed a reasonable candidate we will set him up for TURP. 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 His retention has been managed with a Jason catheter now for several months. States it is being changed on a monthly basis. Cardiac clearance was recently given per Dr. Nain bower as office at [facility]. Patient is not a great surgical candidate. He is on Xarelto. His cardiologi st has deemed him a reasonable surgical candidate. We will get a preop clearance from anesthesio logist at [facility]. We will stop his blood thinners prior to his TURP. We will start him on finasterid e today to help decrease any possible prostate bleeding. [id number] Venkatesh Hartley Jr, MD [facility] [address] [address] 03/23/2023 10:46:37 03/23/2023 11:42:10 Incomplete emptying of urinary bladder due to benign prostatic hypertrophy [id number] 63817 N40.1 patient with history of urinary retention secondary to prostate enlargemen t. He underwent a TURP at [facility] on February 18. He returns today with [...] for the prolonged catheteriz ations and removal. [id number] Venkatesh Hartley Jr, MD [facility] [address] [address] 04/29/2023 10:18:10 04/29/2023 11:38:41 Recurrent urinary tract infection [id number] N39.0 Patient with urinary symptoms of frequency, urgency and hematuria. His urine appears infected. We will culture the urine and patient placed on a course of cefdinir today. He will follow up in 1 month. Incomplete emptying of urinary bladder due to benign prostatic hypertrophy [id number] 85170 N40.1 patient with history of urinary retention secondary to prostate enlargemen t. He underwent a TURP at [facility] on February 18. patient with complaints of frequency, urgency and gross hematuria. He has evidence of a urinary tract infection which may be contributi ng to his symptoms. We also discussed that hematuria, urgency and frequency could be normal sequela of his TURP. Patient also takes Xarelto for other medical issues. [id number] Venkatesh Hartley Jr, MD [facility] [address] [address] 05/27/2023 11:21:35 05/27/2023 12:30:45 Incomplete emptying of urinary bladder due to benign prostatic hypertrophy [id number] 04032 N40.1 patient with history of urinary retention secondary to prostate enlargemen t. He underwent a TURP at [facility] on February 18. He states he is voiding better and he is now ambulatory but PVR still elevated at 671 cc. Recurrent urinary tract infection N39.0 Pt with uti's due to incomplete emptying. To increase fluids and observe timed voiding. [id number] Venkatesh Hartley Jr, MD [facility] [address] [address] 11/23/2023 09:08:44 11/23/2023 09:50:37 Incomplete emptying of urinary bladder due to benign prostatic hypertrophy [id number] 65562 N40.1 patient with history of urinary retention secondary to prostate enlargemen t. He underwent a TURP at [facility] on February 18. He states he is voiding better and he is now ambulatory but PVR still elevated due to bladder decompensa tion. Recurrent urinary tract infection [id number] N39.0 Pt with uti's due to incomplete [...] Hawkins Member ID Guarantor Name 01/28/2023 1 [place] Roberto Jadepe [id number] Roberto Thorpe 01/28/2023 2 [place] [employer] CHOICES - FFS/TRADITIO NAL Roberto Thorpe [id number] Roberto Thorpe 03/23/2023 1 [place] Roberto Thorpe [id number] Roberto Thorpe 03/23/2023 2 MEDICAID-[facility] CHOICES - FFS/TRADITIO NAL Roberto Thorpe [id number] Roberto Thorpe 04/29/2023 1 [place] Roberto Thorpe [id number] Roberto Thorpe 04/29/2023 2 MEDICAID-[facility] CHOICES - FFS/TRADITIO NAL Roberto Thorpe [id number] Roberto Thorpe 05/27/2023 1 [place] Roberto Thorpe [id number] Roberto Thorpe 05/27/2023 2 MEDICAID-[facility] [place] - FFS/TRADITIO NAL Roberto Toussaint [id number] Roberto Toussaint 11/23/2023 1 [place] Roberto Toussaint [id number] Roberto Toussaint 11/23/2023 2 MEDICAID-[facility] [place] - FFS/TRADITIO NAL Roberto Toussaint [id number] Roberto Toussaint Notes Date Note Type Note [...] recommended. Months later he is seen his rn pacu and has been deemed a acceptable risk for the TURP. He continues on Xarelto. He is legally blind. He lives in the care home. Venkatesh Hartley Jr, MD [address] [place] [address], [address], [place], [address], [facility] & [place] 01/28/2023 14:59:58 03/23/2023 text/html patient is a 72-year-old black male with history of urinary retention. 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 There was a large median lobe that was resected. Patient's prostate was very large and resected in stages. Pathology from the prostatic chips showed no evidence of cancer. Patient returns today for a voiding trial but should have been scheduled for a voiding trial 2-3 weeks ago. He is had the same catheter in since discharge. Venkatesh Hartley Jr, MD [address], [address], [place], [address], [facility] 03/23/2023 12:37:30 04/29/2023 text/html Patient is a 72-year-old black male with a history of urinary retention. He underwent a TURP on February 18, 2023 at [facility]. Patient had a very large median [...] of 699 cc. Venkatesh Hartley Jr, MD [address] [place] [address], [address], [address], [facility] & [place] 04/29/2023 16:45:15 05/27/2023 text/html Pt with h/o [...] e coli sensitive to the Cefdinir. Venkatesh Hartley Jr, MD [address], [address], [place], [address], [facility] 08/21/2023 23:04:36 11/23/2023 text/html Patient is a [...] as a result. Venkatesh Hartley Jr, MD [address] [place] [address] Drive, [address], [place], [address], [place] - [facility] - [place] & [place] 11/23/2023 12:51:08
[2024-07-11 11:20] LABS: Basophils # 0.1 K/mm3 (0-0.2); Basophils % 1.4 % (0.1-2.0); Eosinophils # 0.3 Kmm3 (0.0-0.4); Eosinophils % 5.6 % (0.1-12.0); Hematocrit 29.6 % (42.0-52.0); Hemoglobin 9.4 g/dL (14.1-18.0); Lymphocytes # 0.6 K/mm3 (0.7-4.5); Lymphocytes % 11.4 % (10-50); Mean Corpuscular HGB Conc 31.8 g/dL (31.8-35.4); Mean Corpuscular Volume 91.4 fl (80-94); Mean Platelet Volume 9.5 fl (7.4-10.4); Monocytes # 0.7 K/mm3 (0.1-1.0); Monocytes % 13.2 % (1.7-9.3); Neutrophils # 3.4 K/mm3 (1.8-7.8); Neutrophils % 68.2 % (37.0-80.0); Nucleated Red Blood Cells # 0 10^3/uL; Nucleated Red Blood Cells % 0 %; Platelet Count 221 K/mm3 (142-424); Red Blood Count 3.24 M/mm3 (4.60-6.20); Red Cell Distribution Width 17.2 % (11.5-17.5); Red Cell Distribution Width-SD 57.8 fL
[2024-07-11 11:51] LABS: Albumin Level 3.7 g/dl (3.5-5.0); Chloride 105 mmol/L (98-107); Potassium 3.6 mmoL/L (3.5-5.1); Sodium 138 mmol/L (136-145)
[2024-07-11 11:54] LABS: Alanine Aminotransferase 13 U/L (12-78); Albumin/Globulin Ratio 1.3 (1.1-1.8); Alkaline Phosphatase 58 U/L (38-126); Anion Gap 7.6 mEq/L (5-15); Aspartate Amino Transferase 22 U/L (17-59); Bilirubin,Total 0.2 mg/dl (0.2-1.3); Blood Urea Nitrogen 34 mg/dl (9-20); Carbon Dioxide 29 mmol/L (22.0-30.0); Estimated Glomerular Filt Rate 29 ml/min (>60); GFR (African American) 35 ML/MIN (>60); Globulin 2.9 g/dL (1.3-3.2); Total Protein,Serum 6.6 g/dl (6.3-8.2)
[2024-07-11 11:55] LABS: Calcium 9.4 mg/dl (8.4-10.2); Glucose 94 mg/dl (74-100)
[2024-07-12 08:33] LABS: CEA 1.7 ng/mL (0.0-4.7)
== END 2024-07-11 23:59 | disposition home or self-care (01) ==
LOC: LAB 11:00
PROVIDERS: PCP Family Medicine; Visit Provider Internal Medicine Medical Oncology
DX: C34.90 Malignant neoplasm of unspecified part of unspecified bronchus or lung (principal); Z87.891 Personal history of nicotine dependence
CPT/HCPCS: 36415; 80053; 82378; 85025

== ENCOUNTER → 2024-07-18 13:11 | Outpatient (CLI) | payer MEDICARE, MEDICAID, SELFPAY ==
--- OUTSIDE RECORDS SUMMARY | 2024-07-18 13:15 | XMS_ITS | Data Portability ---
Author Organization [facility] ADMIN Address [address] [place] [id number] Care Team Providers Care Electrical Continuity Tester Name Role Phone ROSA HANDY Primary Care Provider [phone] Assessment No assessment recorded. Plan of Treatment Reminders Order Date Submit Date Provider Last Modified By Organization Details Last Modified Time Details Appointments FOLLOW UP 30 2024 10:00A M JUSTO VU MD Not available Not available Not available Lab culture, urine + sensitivi ty 2023 024 [email or web address] [facility] ([facility] , [address] [place] [address] [place], [address], 05/06/2023 07:44:10 urinalysi s, dipstick [address] [facility], [address] [place] [address], [address], 05/02/2023 09:19:22 Referral None recorded. Procedures bladder scan (PROC) [address] [facility], [address] [place] [address], [address], 05/02/2023 09:19:22 Surgeries None recorded. Imaging None recorded. Medication Orders cefdinir 300 mg capsule 2023 024 [place] [address] [facility] [place] [address] [address], [place], [address], 04/29/2023 16:44:27 cefdinir 300 mg capsule [address] [facility] [place], [facility] , [place], [address], 03/23/2023 12:36:21 finasteri de 5 mg tablet [address] [facility] [place] [facility], [facility] , [place], [address], 03/23/2023 12:36:44 Patient TargetsNo targets recorded. Patient InstructionsNo instructions recorded. Reason for Referral None Reported. Results Created Date Observation Date Name Description Value Unit Range Abnormal Flag Note LastModifiedBy Organization Detail LastModifiedTime 02/16/2002/15/2023 BASIC METAB OLIC PANEL sodium 133 mmol/ L 137-14 7 low Not Available [facility] (Pre-Op Clinic) [address] [place] [address] [place], [address], 02/15/2023 11:26:59 02/16/20 23 02/15/2023 BASIC METAB OLIC PANEL potassium 5.1 mmol/ L 3.5-5. 1 Not Available [facility] (Pre-Op Clinic) [address] [place] [address] [place], [address], 02/15/2023 11:26:59 02/16/20 23 02/15/2023 BASIC METAB OLIC PANEL chloride 93 mmol/ L 98-110 low Not Available [facility] (Pre-Op Clinic) [address] [place] [address] [place], [address], 02/15/2023 11:26:59 02/16/20 23 02/15/2023 BASIC METAB OLIC PANEL carbon dioxide 28 mmol/ L 21-30 Not Available [facility] (Pre-Op Clinic) [address] [place] [address] [place], [address], 02/15/2023 11:26:59 02/16/20 23 02/15/2023 BASIC METAB OLIC PANEL anion gap 12 mmol/ L 6-14 Not Available [facility] (Pre-Op Clinic) [address] [place] [address] [place], [address], 02/15/2023 11:26:59 02/16/20 23 02/15/2023 BASIC METAB OLIC PANEL glucose 84 mg/dL 70-115 Not Available [facility] ([facility]-Op Clinic) [address] [place] [address] [place], [address], 02/15/2023 11:26:59 02/16/20 23 02/15/2023 BASIC METAB OLIC PANEL BUN 39 mg/dL 9-20 high Not Available [facility] (Pre-Op Clinic) [address] [place] [address] [place], [address], 02/15/2023 11:26:59 02/16/20 23 02/15/2023 BASIC METAB OLIC PANEL creatinine 2.1 mg/dL 0.5-1. 5 high Not Available [facility] (Pre-Op Clinic) [address] [place] [address] [place], [address], 02/15/2023 11:26:59 02/16/20 23 02/15/2023 BASIC METAB OLIC PANEL BUN/creatini ne ratio 19 ratio 10-20 Not Available [facility] (Pre-Op Clinic) [address] [place] [address] [place], [address], 02/15/2023 11:26:59 02/16/20 23 02/15/2023 BASIC METAB OLIC PANEL glom filtration rate TNP mL/mi n >60- GFR has only been valid ated for patie nts 18-70 years of age. Not Available [facility] (Pre-Op Clinic) [address] [place] [address] [place], [address], 02/15/2023 11:26:59 02/16/20 23 02/15/2023 BASIC METAB OLIC PANEL osmolality (calculated) 286 mosmo l/kg 275-30 1 OSMOL ALITY IS A CALCU LATIO N UTILI ZING THE SERUM /PLAS MA SODIU M, GLUCO SE AND UREA NITRO GEN (BUN) LEVEL S. FOR THE MOST ACCUR ATE RESUL T A MEASU RED SERUM OSMOL ALITY IS SUGGE STED. Not Available [facility] (Pre-Op Clinic) [address] [place] [address] [place], [address], 02/15/2023 11:26:59 02/16/20 23 02/15/2023 BASIC METAB OLIC PANEL calcium 9.4 mg/dL 8.5-10 .8 Not Available [facility] (Pre-Op Clinic) [address] [place] [address] [place], [address], 02/15/2023 11:26:59 02/16/20 23 02/15/2023 BASIC METAB OLIC PANEL note Unles s other hernandez noted testi ng perfo rmed at: [facility] [address] [place] [place] [address] Arnaud mays MD Not Available [facility] (Pre[facility]Op [facility]) [address] [place] [address] [place], [address], 02/15/2023 11:26:59 02/19/20 23 02/18/2023 RFS-P ATHOL OGY SPECI MEN REQUE ST [facility] Path[facility] [address] [place] [address] Phone or [phone] Fax Joseph almonte Jr., M.D., Medic al Direc tor [facility] [address] : [place] [address] Phone Numbe r: [id number] Arnaud mays M.D. PATHO LOGY REPOR T Patie nt Name: AUDRA MEJIA Date of : 1950 Age/S ex: 72/M Accou nt Numbe r: [id number] Medic al Recor d Numbe r: [id number] Order ing MD: RICCARDO HARTLEY AM Date Colle cted : 2022 Date Recei balta : 2022 Date Repor harsh : 02/23 Exam: Biops y Acces heath# : [id number] Labor atory #: [id number] Copie s To: Techn ician : Clini yobani Histo ry Benig n prost atic hyper plasi a, urine reten tion Previ ous Patie nt Histo ry and Files ROBERTO MORAN (08/12 9 M) i??SS N: [id number] ?? 1. S23-0 53313 , DateC ollec harsh: 06/22 A: SPLEN IC FLEXU RE BIOPS Y Diagn osis: Colon ic type mucos a with no signi fican t histo patho logic abnor malit ies ROGELIO 2. S22-0 57832 , Date ollec harsh: 12/15 A: COLON , POLYP , 12CM Diagn osis: Hyper plast ic polyp . B: COLON , POLYP , 7CM Diagn osis: Hyper plast ic polyp . C: COLON , POLYP , 5CM Diagn osis: Hyper plast ic polyp . 3. S21-0 50503 , Date ollec harsh: 09/29 A: RIGHT [...] nal Lymph Nodes (pN): pN1a 4. S21-0 52788 , Date ollec harsh: 09/25 A: CECUM [...] or high- grade dyspl albino 5. S21-0 10417 , Date ollec harsh: 07/10 A: ANTRU M, BIOPS Y Diagn osis: React leonor gastr opath y and mild chron ic gastr itis with intes tinal Legal ly authe ntica harsh by ARNAUD RENE MD 02-23 15:53 :00 metap lasia Negat leonor for dyspl albino FLP/p ah 6. S19-0 86368 , DateC ollec harsh: 09/07 A: SKIN, [...] red by Arnaud mays Jr., M.D. at [facility] , [address] [id number] . Final Diagn osis BENIG N PROST ATIC HYPER PLASI A EJT/S M Stain *Recu [place] ;[place] [address] Legal ly authe ntica harsh by ARNAUD RENE MD 02-23 15:53 :00 Not Available [facility] (Pre-Op [facility]) [address] [place] [address] [place], [address], 02/23/2023 16:17:04 02/20/2002/19/2023 CBC W/ AUTO DIFF WBC 7.57 K/uL 4.5-11 .5 Not Available [facility] (Pre[facility]Op [facility]) [address] [place] [address] [place], [address], 02/19/2023 06:08:08 02/20/20 23 02/19/2023 CBC W/ AUTO DIFF RBC 3.38 M/uL 4.0-5. 4 low Not Available [facility] (Pre-Op Clinic) [address] [place] [address] [place], [address], 02/19/2023 06:08:08 02/20/2002/19/2023 CBC W/ AUTO DIFF HGB 9.5 g/dL 14.0-1 8.0 low Not Available [facility] (Pre-Op Clinic) [address] [place] [address] [place], [address], 02/19/2023 06:08:08 02/20/2002/19/2023 CBC W/ AUTO DIFF HCT 28.8 % 40-54 low Not Available [facility] (Pre-Op Clinic) [address] [place] [address] [place], [address], 02/19/2023 06:08:08 02/20/2002/19/2023 CBC W/ AUTO DIFF MCV 85.2 fL 80.0-1 00.0 Not Available [facility] (Pre-Op Clinic) [address] [place] [address] [place], [address], 02/19/2023 06:08:08 02/20/2002/19/2023 CBC W/ AUTO DIFF MCH 28.1 pg 26.0-3 2.0 Not Available [facility] (Pre-Op Clinic) [address] [place] [address] [place], [address], 02/19/2023 06:08:08 02/20/2002/19/2023 CBC W/ AUTO DIFF MCHC 33.0 g/dL 32.0-3 6.0 Not Available [facility] (Pre-Op Clinic) [address] [place] [address] [place], [address], 02/19/2023 06:08:08 02/20/2002/19/2023 CBC W/ AUTO DIFF RDW 14.7 % 11.5-1 4.5 high Not Available [facility] (Pre-Op Clinic) [address] [place] [address] [place], [address], 02/19/2023 06:08:08 02/20/2002/19/2023 CBC W/ AUTO DIFF platelet count 244 K/uL 142-42 4 Not Available [facility] (Pre-Op [facility]) [address] [place] [address] [place], [address], 02/19/2023 06:08:08 02/20/2002/19/2023 CBC W/ AUTO DIFF MPV 9.1 fL 6.8-10 .2 Not Available [facility] (Pre-Op Clinic) [address] [place] [address] [place], [address], 02/19/2023 06:08:08 02/20/2002/19/2023 CBC W/ AUTO DIFF neutrophil % 81.2 % 50-70 high Not Available [facility] (Pre-Op Clinic) [address] [place] [address] [place], [address], 02/19/2023 06:08:08 02/20/20 23 02/19/2023 CBC W/ AUTO DIFF lymphocyte % 5.3 % 18.0-4 2.0 low Not Available [facility] (Pre-Op [facility]) [address] [place] [address] [place], [address], 02/19/2023 06:08:08 02/20/20 23 02/19/2023 CBC W/ AUTO DIFF monocyte % 10.2 % 2.0-11 .0 Not Available [facility] (Pre-Op Clinic) [address] [place] [address] [place], [address], 02/19/2023 06:08:08 02/20/2002/19/2023 CBC W/ AUTO DIFF eosinophil % 2.6 % 1.0-3. 0 Not Available [facility] (Pre-Op [facility]) [address] [place] [address] [place], [address], 02/19/2023 06:08:08 02/20/20 23 02/19/2023 CBC W/ AUTO DIFF basophil % 0.4 % 0.0-2. 0 Not Available [facility] (Pre[facility]Op [facility]) [address] [place] [address] [place], [address], 02/19/2023 06:08:08 02/20/20 23 02/19/2023 CBC W/ AUTO DIFF immature granulocytes % 0.3 % 0.0-0. 8 Not Available [facility] (Pre-Op [facility]) [address] [place] [address] [place], [address], 02/19/2023 06:08:08 02/20/2002/19/2023 CBC W/ AUTO DIFF nucleated red blood cells % 0.0 % Not Available [facility] (Pre[facility]Op [facility]) [address] [place] [address] [place], [address], 02/19/2023 06:08:08 02/20/20 23 02/19/2023 CBC W/ AUTO DIFF neutrophil # 6.15 K/uL Not Available [facility] (Pre-Op Clinic) [address] [place] [address] [place], [address], 02/19/2023 06:08:08 02/20/20 23 02/19/2023 CBC W/ AUTO DIFF lymphocyte # 0.40 K/uL Not Available [facility] (Pre[facility]Op [facility]) [address] [place] [address] [place], [address], 02/19/2023 06:08:08 02/20/20 23 02/19/2023 CBC W/ AUTO DIFF monocyte # 0.77 K/uL Not Available [facility] (Pre-Op Clinic) [address] [place] [address] [place], [address], 02/19/2023 06:08:08 02/20/20 23 02/19/2023 CBC W/ AUTO DIFF eosinophil # 0.20 K/uL Not Available [facility] (Pre-Op Clinic) [address] [place] [address] [place], [address], 02/19/2023 06:08:08 02/20/20 23 02/19/2023 CBC W/ AUTO DIFF basophil # 0.03 K/uL Not Available [facility] (Pre-Op Clinic) [address] [place] [address] [place], [address], 02/19/2023 06:08:08 02/20/20 23 02/19/2023 CBC W/ AUTO DIFF immature gramulocytes # 0.02 K/uL Not Available [facility] (Pre-Op Clinic) [address] [place] [address] [place], [address], 02/19/2023 06:08:08 02/20/20 23 02/19/2023 CBC W/ AUTO DIFF nucleated red blood cells # 0.00 k/uL Not Available [facility] (Pre-Op Clinic) [address] [place] [address] [place], [address], 02/19/2023 06:08:08 02/20/20 23 02/19/2023 CBC W/ AUTO DIFF manual differential NO Not Available [facility] ([facility]Op [facility]) [address] [place] [address] [place], [address], 02/19/2023 06:08:08 02/20/20 23 02/19/2023 CBC W/ AUTO DIFF note Unles s other hernandez noted testi ng perfo rmed at: [facility] [address] [place] [address] Arnaud mays MD Not Available [facility] (Pre-Op [facility]) [address] [place] [address] [place], [address], 02/19/2023 06:08:08 02/20/20 23 02/19/2023 BASIC METAB OLIC PANEL sodium 139 mmol/ L 137-14 7 Not Available [facility] (Pre-Op Clinic) [address] [place] [address] [place], [address], 02/19/2023 06:44:15 02/20/20 23 02/19/2023 BASIC METAB OLIC PANEL potassium 4.3 mmol/ L 3.5-5. 1 Not Available [facility] (Pre-Op Clinic) [address] [place] [address] [place], [address], 02/19/2023 06:44:15 02/20/20 23 02/19/2023 BASIC METAB OLIC PANEL chloride 108 mmol/ L 98-110 Not Available [facility] (Pre-Op Clinic) [address] [place] [address] [place], [address], 02/19/2023 06:44:15 02/20/20 23 02/19/2023 BASIC METAB OLIC PANEL carbon dioxide 26 mmol/ L 21-30 Not Available [facility] (Pre-Op Clinic) [address] [place] [address] [place], [address], 02/19/2023 06:44:15 02/20/20 23 02/19/2023 BASIC METAB OLIC PANEL anion gap 5 mmol/ L 6-14 low Not Available [facility] ([facility]Op [facility]) [address] [place] [address] [place], [address], 02/19/2023 06:44:15 02/20/20 23 02/19/2023 BASIC METAB OLIC PANEL glucose 95 mg/dL 70-115 Not Available [facility] (Pre[facility]Op [facility]) [address] [place] [address] [place], [address], 02/19/2023 06:44:15 02/20/20 23 02/19/2023 BASIC METAB OLIC PANEL BUN 32 mg/dL 9-20 high Not Available [facility] (Pre[facility]Op [facility]) [address] [place] [address] [place], [address], 02/19/2023 06:44:15 02/20/20 23 02/19/2023 BASIC METAB OLIC PANEL creatinine 1.7 mg/dL 0.5-1. 5 high Not Available [facility] (Pre[facility]Op [facility]) [address] [place] [address] [place], [address], 02/19/2023 06:44:15 02/20/20 23 02/19/2023 BASIC METAB OLIC PANEL BUN/creatini ne ratio 19 ratio 10-20 Not Available [facility] (Pre-Op Clinic) [address] [place] [address] [place], [address], 02/19/2023 06:44:15 02/20/20 23 02/19/2023 BASIC METAB OLIC PANEL glom filtration rate TNP mL/mi n >60- GFR has only been valid ated for patie nts 18-70 years of age. Not Available [facility] (Pre[facility]Op [facility]) [address] [place] [address] [place], [address], 02/19/2023 06:44:15 02/20/20 23 02/19/2023 BASIC METAB OLIC PANEL osmolality (calculated) 296 mosmo l/kg 275-30 1 OSMOL ALITY IS A CALCU LATIO N UTILI ZING THE SERUM /PLAS MA SODIU M, GLUCO SE AND UREA NITRO GEN (BUN) LEVEL S. FOR THE MOST ACCUR ATE RESUL T A MEASU RED SERUM OSMOL ALITY IS CLAUDIO FUNG. Not Available [facility] (Pre-Op Clinic) [address] [place] [address] [place], [address], 02/19/2023 06:44:15 02/20/20 23 02/19/2023 BASIC METAB OLIC PANEL calcium 8.5 mg/dL 8.5-10 .8 Not Available [facility] (Pre[facility]Op [facility]) [address] [place] [address] [place], [address], 02/19/2023 06:44:15 02/20/20 23 02/19/2023 BASIC METAB OLIC PANEL note Unles s other hernandez noted testi ng perfo rmed at: [facility] [address] [place] [address] Arnaud mays MD Not Available [facility] (Pre[facility]Op [facility]) [address] [place] [address] [place], [address], 02/19/2023 06:44:15 04/29/19 24 04/29/2023 CULTU RE URINE results [facility] 04-30 600 >100, 000 COL/M L Gram Negat leonor Rods Not Available [facility] ([facility]) [address] [place] [address] [place], [address], 04/30/2023 06:02:04 04/29/19 24 04/29/2023 CULTU RE URINE note Unles s other hernandez noted testi ng perfo rmed at: [facility] [address] [facility] [place] [address] [phone] Arnaud mays MD CLIA: [id number] Not Available [facility] (Lab Registration) [address] [place], [address], 04/30/2023 06:02:04 04/29/19 24 04/29/2023 CULTU RE URINE culccur ===== ===== ===== ===== ===== ===== ===== ===== ===== ===== ===== ===== ===== ===== ===== ===== ===== ===== ===== ===== ===== ===== ===== ===== Speci men NO.: [id number] Exam Statu s: Final Proce dure: [...] L Gram Negat leonor Rods Not Available [facility] (Lab Registration) [address] , [place], [address], 05/01/2023 07:47:10 04/29/19 24 04/29/2023 CULTU RE URINE note Unles s other hernandez noted testi ng perfo rmed at: [facility] [place] [address] [phone] Arnaud mays MD CLIA: [id number] Not Available [facility] (Lab [facility]) [address] , [place], [address], 05/01/2023 07:47:10 04/29/19 24 04/29/2023 bladd er scan (PROC ) Calculated Residual Urine: 699 ML Not Available [address], [address], 04/29/2023 11:45:28 04/29/19 24 04/29/2023 urina lysis , dipst ick Leukocytes (reference range) large Not Available [address], [address], 04/29/2023 11:44:38 04/29/19 24 04/29/2023 urina lysis , dipst ick Nitrite (reference range:) positi ve Not Available [facility] [address], [address], 04/29/2023 11:44:38 04/29/19 24 04/29/2023 urina lysis , dipst ick Urobilinogen (reference range) 1 Not Available [address], [address], 04/29/2023 11:44:38 04/29/19 24 04/29/2023 urina lysis , dipst ick Protein (reference range) 300 Not Available [address], [address], 04/29/2023 11:44:38 04/29/19 24 04/29/2023 urina lysis , dipst ick pH (reference range 5-8.5) 6.5 Not Available [address], [address], 04/29/2023 11:44:38 04/29/19 24 04/29/2023 urina lysis , dipst ick Blood (reference range:) large Not Available [address], [address], 04/29/2023 11:44:38 04/29/19 24 04/29/2023 urina lysis , dipst ick Specific Trosper (reference range) 1.020 Not Available [address], [address], 04/29/2023 11:44:38 04/29/19 24 04/29/2023 urina lysis , dipst ick Ketone (reference range) trace Not Available [address], [address], 04/29/2023 11:44:38 04/29/19 24 04/29/2023 urina lysis , dipst ick Bilirubin (reference range) small Not Available [address], [address], 04/29/2023 11:44:38 04/29/19 24 04/29/2023 urina lysis , dipst ick Glucose (reference range) negati ve Not Available [facility] [address], [address], 04/29/2023 11:44:38 02/22/20 23 02/21/2023 cardi ac clear ance* No observ ation record ed. [email or web address] [facility] [address] [place] [address] [place], [address], 02/24/2023 10:25:26 03/25/19 24 03/25/2023 CT, chest , w/o contr ast [facility] [address] [place] [address] Phone: Fax: Name: ROBERTO TOUSSAINT Exam Date: 024 : 949 Age 72 Gender : M Access ion: [id number] Physic amalia: JUSTO VU Facili ty: [facility] Facili ty HSV: Outpat ient Exam: CT [...] Thank you for referr ROBERTO Lorenzana to [facility]. Legall y authen ticate d by POPE TIFFANY Collins 03-25 10:48: 47 CC'ed Logic: Orderi ng Provid er: MIRELLA KEMP Attend ing Provid er: MIRELLA KEMP Referr ing Provid er: MIRELLA KEMP Admitt ing Provid er: MIRELLA KEMP [email or web address] [facility] [address], [place], [address], 04/05/2023 08:15:45 01/16/20 24 11/11/2023 PET-C T, skull base to mid-t high scan No observ ation record ed. [facility] ([facility]) [address], [place], [address], 01/20/2024 11:35:25 06/02/19 25 06/01/2024 CT, chest , w/o contr ast No observ ation record ed. [facility] [address], [place], [address], 06/04/2024 15:30:09 Result Notes None recorded. 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 SHAREE Lopez [facility] - [place] & [place] 4 10:52:11 Chronic renal failure 38378585 Active 2022 SHAREE Lopez - [facility] - [place] & [place] 4 10:52:11 Heart failure 89559674 Active 2022 SHAREE Lopez - [facility] - [place] & [place] 4 10:52:11 Diastolic dysfunction 2049726 Active 2022 Anabella vyas, [place] - [facility] - [facility] & [place] 4 10:52:11 Anemia 598098117 Active 2022 Anabella Vernon null, [place] - [facility] - & [place] 4 10:52:11 Acute stroke 8768102083712 04 Active 2022 Anabella vyas, [place] - [facility] - & [place] 4 10:52:11 Disease of liver 621434922 Active 2022 Anbaella vyas, [place] - [facility] - & [place] 4 10:52:11 Hypercholes terolemia 07821193 Active 2022 Anabella vy[place], [place] - [facility] - & [place] 4 10:52:11 Gastroesoph ageal reflux disease 106416384 Active 2022 Anabella [place] null[place] - [facility] - & [place] 4 10:52:11 Kidney stone 28797039 Active 2022 Anabella [place] null[place] - [facility] - & [place] 4 10:52:11 Glaucoma 19092765 Active 2022 Anabella vyas, [place] - [facility] - & [place] 4 10:52:11 Arthritis 5630291 Active 2022 Anabella vyas[place] - [facility] - & [place] 4 10:52:11 Hypertensiv e disorder 84063284 Active 2022 Anabella Vernon null, [place] - [facility] - [facility] & [place] 4 10:52:11 Benign prostatic hyperplasia with outflow obstruction 617123555 Active Anabella Vernon null, [place] - [facility] - [place] & [place] 4 10:52:11 Problem Notes None recorded. Procedures Surgical History Date Name Laterality Status Provider Name and Address Organization Details Recorded Time 06/10/19 23 Cystoscopy-Male completed Venkatesh Hartley Jr, MD [address] [place] [address] Drive, [address], [place], [address], SHAREE - NT [facility] & [place] 06/09/2022 16:55:32 ureteroscopy completed Anabella TOLLIVER - LPNT [facility] & [place] 06/09/2022 13:23:50 Knee arthroscopy/surg frederick completed Anabella TOLLIVER - NT [facility] & [place] 06/09/2022 13:23:58 Imaging Results Imaging Date Name Status LastModified by Organiz ation Details LastModified Time 02/21/2023 cardiac clearance* completed [email or web address] [facility] [address] [place] [address] [place], [address], 02/24/2023 10:25:26 03/25/2023 CT, chest, w/o contrast completed [email or web address] [place] [address] - Physical Therapy [address] [facility], [place], [address], 04/05/2023 08:15:45 11/11/2023 PET-CT, skull base to mid-thigh scan completed [facility] ([facility]) [address] [facility], [place], [address], 01/20/2024 11:35:25 06/01/2024 CT, chest, w/o contrast completed [facility] [address], [place], [address], 06/04/2024 15:30:09 Procedure Notes None recorded. Medical Equipment None Reported. Allergies Allergen ID Allergen Name Allergen Category Reaction Reaction Severity Criticality Documentation Date Start Date Code Code System Note Provider Name and Address Organization Details Recorded Time 093575 No known allergy (situatio n) Not available Not available Not available Not available 03/23/2023 [id number] SNOMED Anabella vyas [place] - LPNT [facility] & [place] 10:51:22 No known drug allergies Medications Name [...] Base) MCG/ACT d ose:0.0 route:IN HALED starla quency:[place] N active Not Available Not Available No [...] [degF] Anabella TOLLIVER - LPNT - [facility] & [place] 01/28/2023 13:10:38 Date Recorded Body temperature Provider Name a nd Address Organization Details Last Updated DateTime 03/23/2023 97.9 [degF] Anabella TOLLIVER - LPNT - [facility] & [place] 03/23/2023 10:51:14 Date Recorded Body temperature Body height Body mass index (BMI) Body weight Provider Name and Address Organization Details Last Updated DateTime 04/29/2023 97.9 [degF] 182.88 cm 33.2 kg/m2 846242.13 g [facility] [place] 04/29/2023 10:18:52 Date Recorded Body height Body mass index (BMI) Body weight Body temperature Provider Name and Address Organization Details Last Updated DateTime 05/27/2023 182.88 cm 28.5 kg/m2 84708.4 g 97.3 [degF] Salud TOLLIVER - [facility] & [place] 05/27/2023 11:23:11 Date Recorded Body height Body mass index (BMI) Body weight Body temperature Provider Name and Address Organization Details Last Updated DateTime 11/23/2023 182.88 cm 28.5 kg/m2 16597.4 g 97.7 [degF] [facility] [place] 11/23/2023 09:14:40 Social History Question Answer Notes LastModified by Organizat ion Details LastModified Time Tobacco Smoking Status Never Smoker Anabella vyas, SHAREE [facility] & [place] 06/02/2022 11:50:50 What Is Your Level Of Alcohol Consumption? None [email or web address] Information not available 06/02/2022 Sex: Unknown Functional Status None recorded. Mental Status None recorded. Family History Relationship Description Onset Age of this Age Resolved Age Notes LastModified by Organization Details LastModified Time Mother Family history unknown dec [email or web address] Not available 2022 13:23:21 Sister Family history unknown x3 dec [email or web address] Not available 2022 13:23:21 Brother Family history unknown [email or web address] Not available 2022 13:23:21 Father Malignant neoplastic disease dec [email or web address] Not available 2022 13:23:30 Medical History No medical history recorded. Past Encounters Encounter ID Performer Location Encounter Start Date Encounter Closed Date Diagnosis/Indication Diagnosis SNOMED-CT Code Diagnosis ICD10 Code Diagnosis Note [id number] Venkatesh Hartley Jr, MD [facility] [address] [address] 06/09/2022 13:36:19 06/09/2022 15:11:25 Retention of urine 325097235 R33.9 71-year-ol d male with multiple medical [...] cardiologi st who is Dr. Dodge in [place]. If he is deemed a reasonable candidate we will set him up for TURP. [id number] [facility] [address] [address] 01/28/2023 12:36:30 01/28/2023 13:36:01 Incomplete emptying of urinary bladder due to benign prostatic hypertrophy [id number] 54999 N40.1 patient with urinary retention. His retention has been managed with a Jason catheter now for several months. States it is being changed on a monthly basis. Cardiac clearance was recently given per Dr. Nain bower as office at [facility]. Patient is not a great surgical candidate. He is on Xarelto. His cardiologi st has deemed him a reasonable surgical candidate. We will get a preop clearance from anesthesio logist at [facility]. We will stop his blood thinners prior to his TURP. We will start him on finasterid e today to help decrease any possible prostate bleeding. [id number] Venkatesh Hartley Jr, [facility] [address] [address] 03/23/2023 10:46:37 03/23/2023 11:42:10 Incomplete emptying of urinary bladder due to benign prostatic hypertrophy [id number] 08877 N40.1 patient with history of urinary retention secondary to prostate enlargemen t. He underwent a TURP at [facility] on February 18. He returns [...] for the prolonged catheteriz ations and removal. [id number] Venkatesh Hartley Jr, [facility] [address] [address] 04/29/2023 10:18:10 04/29/2023 11:38:41 Recurrent urinary tract infection [id number] N39.0 Patient with urinary symptoms of frequency, urgency and hematuria. His urine appears infected. We will culture the urine and patient placed on a course of cefdinir today. He will follow up in 1 month. Incomplete emptying of urinary bladder due to benign prostatic hypertrophy [id number] 90125 N40.1 patient with history of urinary retention secondary to prostate enlargemen t. He underwent a TURP at [facility] on February 18. patient with complaints of frequency, urgency and gross hematuria. He has evidence of a urinary tract infection which may be contributi ng to his symptoms. We also discussed that hematuria, urgency and frequency could be normal sequela of his TURP. Patient also takes Xarelto for other medical issues. [id number] Venkatesh Hartley Jr, MD [facility] [address] [address] 05/27/2023 11:21:35 05/27/2023 12:30:45 Incomplete emptying of urinary bladder due to benign prostatic hypertrophy [id number] 97338 N40.1 patient with history of urinary retention secondary to prostate enlargemen t. He underwent a TURP at [facility] on February 18. He states he is voiding better and he is now ambulatory but PVR still elevated at 671 cc. Recurrent urinary tract infection [id number] N39.0 Pt with uti's due to incomplete emptying. To increase fluids and observe timed voiding. [id number] Venkatesh Hartley Jr, MD [facility] [address] [address] 11/23/2023 09:08:44 11/23/2023 09:50:37 Incomplete emptying of urinary bladder due to benign prostatic hypertrophy [id number] 39184 N40.1 patient with history of urinary retention secondary to prostate enlargemen t. He underwent a TURP at [facility] on February 18. He states he is voiding better and he is now ambulatory but PVR still elevated due to bladder decompensa tion. Recurrent urinary tract infection [id number] N39.0 Pt with uti's due to incomplete emptying. To increase fluids and observe timed voiding. Health Concerns Section Related Observation LastModified by Organization Detai ls LastModified Time None Recorded Concern Status LastModified by Organization Details LastModified Time None Recorded Advance Directives Directive None Recorded Payers Insurance Date Sequence Insurance Name Policy Number Policy Hawkins Covered Member ID Hawkins Member ID Guarantor Name 07/06/2024 2 MEDICAID-[facility] [employer] - FFS/TRADITIO NAL Roberto Toussaint [id number] Roberto Toussaint 07/06/2024 1 [place] Roberto Toussaint [id number] Roberto Toussaint 11/23/2023 2 [place] [employer] - FFS/TRADITIO NAL Roberto Toussaint [id number] Roberto Toussaint Notes Date Note Type Note [...] recommended. Months later he is seen his operations asst and has been deemed a acceptable risk for the TURP. He continues on Xarelto. He is legally blind. [place] Venkatesh Hartley Jr, MD [address] [place] [address], [address], [place], [address], [facility] & [place] 01/28/2023 14:59:58 03/23/2023 text/html patient is a 72-year-old black male with history of urinary retention. 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 There was a large median lobe that was resected. Patient's prostate was very large and resected in stages. Pathology from the prostatic chips showed no evidence of cancer. Patient returns today for a voiding trial but should have been scheduled for a voiding trial 2-3 weeks ago. He is had the same catheter in since discharge. Venkatesh Hartley Jr, MD [address] [place] [address], [address], [place], [address], [facility] & [place] 03/23/2023 12:37:30 04/29/2023 text/html Patient is a 72-year-old black male with a history of urinary retention. He underwent a TURP on February 18, 2023 at [facility]. Patient had a very large [...] of 699 cc. Venkatesh Hartley Jr, MD [address] [place] [address], [address], [place], [address], [facility] & [place] 04/29/2023 16:45:15 05/27/2023 text/html Pt with h/o [...] to the Cefdinir. Venkatesh Hartley Jr, MD [address] [place] [address], [address], [place], [address], [facility] & [place] 08/21/2023 23:04:36 11/23/2023 text/html Patient is a [...] as a result. Venkatesh Hartley Jr, MD [address], [address], [place], [address], [facility] & [place] 11/23/2023 12:51:08
== END ==
LOC: SL 13:13
PROVIDERS: PCP Family Medicine; Visit Provider Internal Medicine Pulmonary Disease
DX: J44.9 Chronic obstructive pulmonary disease, unspecified (principal)
CPT/HCPCS: 94762

== ENCOUNTER 2024-07-23 07:12 | Outpatient (CLI) | payer MEDICARE, MEDICAID, SELFPAY ==
--- OUTSIDE RECORDS SUMMARY | 2024-07-23 07:15 | XMS_ITS | Data Portability ---
Author Organization [facility] ADMIN Address [address] [place] [address] Care Team Providers Care Edge Setter Name Role Phone ROSA HANDY Primary Care Provider Assessment No assessment recorded. Plan of Treatment Reminders Order Date Submit Date Provider Last Modified By Organization Details Last Modified Time Details Appointments FOLLOW UP 30 2024 10:00A M JUSTO VU MD Not available Not available Not available Lab culture, urine + sensitivi ty 2023 024 [email or web address] [facility] (Lab Registration) , [address] [place] [address] [place], [address], 05/06/2023 07:44:10 urinalysi s, dipstick [address] [facility] [place], [address] [place] [address], [address], 05/02/2023 09:19:22 Referral None recorded. Procedures bladder scan (PROC) [address] [facility] [place], [address] [place] [address], [address], 05/02/2023 09:19:22 Surgeries None recorded. Imaging None recorded. Medication Orders cefdinir 300 mg capsule 2023 024 [place] [address] [facility] [place] [address], [place], [address], 04/29/2023 16:44:27 cefdinir 300 mg capsule [address] [facility] [place], [facility] , [place], [address], 03/23/2023 12:36:21 finasteri de 5 mg tablet [address] [facility] [place], [facility] , [place], [address], 03/23/2023 12:36:44 Patient TargetsNo targets recorded. Patient InstructionsNo instructions recorded. Reason for Referral None Reported. Results Created Date Observation Date Name Description Value Unit Range Abnormal Flag Note LastModifiedBy Organization Detail LastModifiedTime 02/16/2002/15/2023 BASIC METAB OLIC PANEL sodium 133 mmol/ L 137-14 7 low Not Available [facility] (Pre[facility]Op Clinic) [address] [place] [address] [place], [address], 02/15/2023 11:26:59 02/16/20 23 02/15/2023 BASIC METAB OLIC PANEL potassium 5.1 mmol/ L 3.5-5. 1 Not Available [facility] (Pre[facility]Op Clinic) [address] [place] [address] [place], [address], 02/15/2023 11:26:59 02/16/20 23 02/15/2023 BASIC METAB OLIC PANEL chloride 93 mmol/ L 98-110 low Not Available [facility] (Pre[facility]Op Clinic) [address] [place] [address] [place], [address], 02/15/2023 11:26:59 02/16/20 23 02/15/2023 BASIC METAB OLIC PANEL carbon dioxide 28 mmol/ L 21-30 Not Available [facility] (Pre-Op Clinic) [address] [place] [address] [place], [address], 02/15/2023 11:26:59 02/16/20 23 02/15/2023 BASIC METAB OLIC PANEL anion gap 12 mmol/ L 6-14 Not Available [facility] (Pre-Op Clinic) [address] [place] [address] [place], [address], 02/15/2023 11:26:59 02/16/20 23 02/15/2023 BASIC METAB OLIC PANEL glucose 84 mg/dL 70-115 Not Available [facility] ([facility]Op [facility]) [address] [place] [address] [place], [address], 02/15/2023 11:26:59 02/16/20 23 02/15/2023 BASIC METAB OLIC PANEL BUN 39 mg/dL 9-20 high Not Available [facility] ([facility]Op [facility]) [address] [place] [address] [place], [address], 02/15/2023 11:26:59 02/16/20 23 02/15/2023 BASIC METAB OLIC PANEL creatinine 2.1 mg/dL 0.5-1. 5 high Not Available [facility] (Pre[facility]Op [facility]) [address] [place] [address] [place], [address], 02/15/2023 11:26:59 02/16/20 23 02/15/2023 BASIC METAB OLIC PANEL BUN/creatini ne ratio 19 ratio 10-20 Not Available [facility] (Pre-Op Clinic) [address] [place] [address] [place], [address], 02/15/2023 11:26:59 02/16/20 23 02/15/2023 BASIC METAB OLIC PANEL glom filtration rate TNP mL/mi n >60- GFR has only been valid ated for patie nts 18-70 years of age. Not Available [facility] (Pre-Op Clinic) [address] [place] [address] [place], [address], 02/15/2023 11:26:59 02/16/20 23 02/15/2023 BASIC METAB OLIC PANEL osmolality (calculated) 286 mosmo l/kg 275-30 1 OSMOL ALITY IS A CALCU LATIO N UTILI ZING THE SERUM /PLAS MA SODIU M, GLUCO SE AND UREA NITRO GEN (BUN) LEVEL S. FOR THE MOST ACCUR ATE RESUL T A MEASU RED SERUM OSMOL ALITY IS SUGGE STED. Not Available [facility] (Pre[facility]Op Clinic) [address] [place] [address] [place], [address], 02/15/2023 11:26:59 02/16/20 23 02/15/2023 BASIC METAB OLIC PANEL calcium 9.4 mg/dL 8.5-10 .8 Not Available [facility] ([facility]Op [facility]) [address] [place] [address] [place], [address], 02/15/2023 11:26:59 02/16/20 23 02/15/2023 BASIC METAB OLIC PANEL note Unles s other hernandez noted testi ng perfo rmed at: [facility] [address] [place] [address] Arnaud mays MD Not Available [facility] ([facility]Op [facility]) [address] [place] [address] [place], [address], 02/15/2023 11:26:59 02/19/20 23 02/18/2023 RFS-P ATHOL OGY SPECI MEN REQUE ST [facility] Patho [facility]y [address] [place] [address] Phone or [phone] Fax Joseph almonte Jr., M.D., Medic al Direc tor [facility] [address] : [place] [address] Phone Numbe r: [phone] Arnaud mays M.D. PATHO LOGY REPOR T Patie nt Name: AUDRA MEJIA Date of : 1950 Age/S ex: 72/M Accou nt Numbe r: [id number] Medic al Recor d Numbe r: [id number] Order ing MD: RICCARDO HARTLEY AM Date Colle cted : 2022 Date Recei balta : 2022 Date Repor harsh : 02/23 Exam: Biops y Acces heath# : [id number] Labor atory #: [id number] Copie s To: Techn ician : Clini yobani Histo ry Benig n prost atic hyper plasi a, urine reten tion Previ ous Patie nt Histo ry and Files ROBERTO MORAN (08/12 9 M) i??SS N: [id number] ?? 1. S23-0 97867 , DateC ollec harsh: 06/22 A: SPLEN IC FLEXU RE BIOPS Y Diagn osis: Colon ic type mucos a with no signi fican t histo patho logic abnor malit ies ROGELIO 2. S22-0 37576 , Date ollec harsh: 12/15 A: COLON , POLYP , 12CM Diagn osis: Hyper plast ic polyp . B: COLON , POLYP , 7CM Diagn osis: Hyper plast ic polyp . C: COLON , POLYP , 5CM Diagn osis: Hyper plast ic polyp . 3. S21-0 25831 , Date ollec harsh: 09/29 A: RIGHT [...] nal Lymph Nodes (pN): pN1a 4. S21-0 59432 , Date ollec harsh: 09/25 A: CECUM [...] or high- grade dyspl albino 5. S21-0 19443 , Date ollec harsh: 07/10 A: ANTRU M, BIOPS Y Diagn osis: React leonor gastr opath y and mild chron ic gastr itis with intes tinal Legal ly authe ntica harsh by ARNAUD RENE MD 02-23 15:53 :00 metap lasia Negat leonor for dyspl albino FLP/p ah 6. S19-0 45815 , DateC ollec harsh: 09/07 A: SKIN, [...] red by Arnaud mays Jr., M.D. at [facility] , [address] [id number] . Final Diagn osis BENIG N PROST ATIC HYPER PLASI A EJT/S M Stain *Rec[place] ;[place] [address] Legal ly authe ntica harsh by ARNAUD RENE MD 02-23 15:53 :00 Not Available [facility] ([facility]Op [facility]) [address] [place] [address] [place], [address], 02/23/2023 16:17:04 02/20/2002/19/2023 CBC W/ AUTO DIFF WBC 7.57 K/uL 4.5-11 .5 Not Available [facility] ([facility]Op [facility]) [address] [place] [address] [place], [address], 02/19/2023 06:08:08 02/20/20 23 02/19/2023 CBC W/ AUTO DIFF RBC 3.38 M/uL 4.0-5. 4 low Not Available [facility] ([facility]Op [facility]) [address] [place] [address] [place], [address], 02/19/2023 06:08:08 02/20/2002/19/2023 CBC W/ AUTO DIFF HGB 9.5 g/dL 14.0-1 8.0 low Not Available [facility] ([facility]Op [facility]) [address] [place] [address] [place], [address], 02/19/2023 06:08:08 02/20/2002/19/2023 CBC W/ AUTO DIFF HCT 28.8 % 40-54 low Not Available [facility] (Pre-Op Clinic) [address] [place] [address] [place], [address], 02/19/2023 06:08:08 02/20/2002/19/2023 CBC W/ AUTO DIFF MCV 85.2 fL 80.0-1 00.0 Not Available [facility] ([facility]Op [facility]) [address] [place] [address] [place], [address], 02/19/2023 06:08:08 02/20/2002/19/2023 CBC W/ AUTO DIFF MCH 28.1 pg 26.0-3 2.0 Not Available [facility] (Pre[facility]Op [facility]) [address] [place] [address] [place], [address], 02/19/2023 06:08:08 02/20/2002/19/2023 CBC W/ AUTO DIFF MCHC 33.0 g/dL 32.0-3 6.0 Not Available [facility] (Pre[facility]Op [facility]) [address] [place] [address] [place], [address], 02/19/2023 06:08:08 02/20/2002/19/2023 CBC W/ AUTO DIFF RDW 14.7 % 11.5-1 4.5 high Not Available [facility] ([facility]Op [facility]) [address] [place] [address] [place], [address], 02/19/2023 06:08:08 02/20/2002/19/2023 CBC W/ AUTO DIFF platelet count 244 K/uL 142-42 4 Not Available [facility] ([facility]Op [facility]) [address] [place] [address] [place], [address], 02/19/2023 06:08:08 02/20/2002/19/2023 CBC W/ AUTO DIFF MPV 9.1 fL 6.8-10 .2 Not Available [facility] (Pre-Op Clinic) [address] [place] [address] [place], [address], 02/19/2023 06:08:08 02/20/2002/19/2023 CBC W/ AUTO DIFF neutrophil % 81.2 % 50-70 high Not Available [facility] (Pre-Op Clinic) [address] [place] [address] [place], [address], 02/19/2023 06:08:08 02/20/20 23 02/19/2023 CBC W/ AUTO DIFF lymphocyte % 5.3 % 18.0-4 2.0 low Not Available [facility] ([facility]Op [facility]) [address] [place] [address] [place], [address], 02/19/2023 06:08:08 02/20/20 23 02/19/2023 CBC W/ AUTO DIFF monocyte % 10.2 % 2.0-11 .0 Not Available [facility] ([facility]Op [facility]) [address] [place] [address] [place], [address], 02/19/2023 06:08:08 02/20/2002/19/2023 CBC W/ AUTO DIFF eosinophil % 2.6 % 1.0-3. 0 Not Available [facility] ([facility]Op [facility]) [address] [place] [address] [place], [address], 02/19/2023 06:08:08 02/20/20 23 02/19/2023 CBC W/ AUTO DIFF basophil % 0.4 % 0.0-2. 0 Not Available [facility] ([facility]Op [facility]) [address] [place] [address] [place], [address], 02/19/2023 06:08:08 02/20/20 23 02/19/2023 CBC W/ AUTO DIFF immature granulocytes % 0.3 % 0.0-0. 8 Not Available [facility] ([facility]Op [facility]) [address] [place] [address] [place], [address], 02/19/2023 06:08:08 02/20/2002/19/2023 CBC W/ AUTO DIFF nucleated red blood cells % 0.0 % Not Available [facility] ([facility]Op [facility]) [address] [place] [address] [place], [address], 02/19/2023 06:08:08 02/20/20 23 02/19/2023 CBC W/ AUTO DIFF neutrophil # 6.15 K/uL Not Available [facility] ([facility]Op [facility]) [address] [place] [address] [place], [address], 02/19/2023 06:08:08 02/20/20 23 02/19/2023 CBC W/ AUTO DIFF lymphocyte # 0.40 K/uL Not Available [facility] ([facility]Op [facility]) [address] [place] [address] [place], [address], 02/19/2023 06:08:08 02/20/20 23 02/19/2023 CBC W/ AUTO DIFF monocyte # 0.77 K/uL Not Available [facility] (Pre-Op Clinic) [address] [place] [address] [place], [address], 02/19/2023 06:08:08 02/20/20 23 02/19/2023 CBC W/ AUTO DIFF eosinophil # 0.20 K/uL Not Available [facility] (Pre-Op Clinic) [address] [place] [address] [place], [address], 02/19/2023 06:08:08 02/20/20 23 02/19/2023 CBC W/ AUTO DIFF basophil # 0.03 K/uL Not Available [facility] (Pre-Op Clinic) [address] [place] [address] [place], [address], 02/19/2023 06:08:08 02/20/20 23 02/19/2023 CBC W/ AUTO DIFF immature gramulocytes # 0.02 K/uL Not Available [facility] (Pre-Op Clinic) [address] [place] [address] [place], [address], 02/19/2023 06:08:08 02/20/20 23 02/19/2023 CBC W/ AUTO DIFF nucleated red blood cells # 0.00 k/uL Not Available [facility] (Pre-Op Clinic) [address] [place] [address] [place], [address], 02/19/2023 06:08:08 02/20/20 23 02/19/2023 CBC W/ AUTO DIFF manual differential NO Not Available [facility] ([facility]Op [facility]) [address] [place] [address] [place], [address], 02/19/2023 06:08:08 02/20/20 23 02/19/2023 CBC W/ AUTO DIFF note Unles s other hernandez noted testi ng perfo rmed at: [facility] [address] [place] [address] Arnaud mays MD Not Available [facility] ([facility]Op [facility]) [address] [place] [address] [place], [address], 02/19/2023 06:08:08 02/20/20 23 02/19/2023 BASIC METAB OLIC PANEL sodium 139 mmol/ L 137-14 7 Not Available [facility] (Pre-Op Clinic) [address] [place] [address] [place], [address], 02/19/2023 06:44:15 02/20/20 23 02/19/2023 BASIC METAB OLIC PANEL potassium 4.3 mmol/ L 3.5-5. 1 Not Available [facility] (Pre-Op Clinic) [address] [place] [address] [place], [address], 02/19/2023 06:44:15 02/20/20 23 02/19/2023 BASIC METAB OLIC PANEL chloride 108 mmol/ L 98-110 Not Available [facility] (Pre-Op Clinic) [address] [place] [address] [place], [address], 02/19/2023 06:44:15 02/20/20 23 02/19/2023 BASIC METAB OLIC PANEL carbon dioxide 26 mmol/ L 21-30 Not Available [facility] (Pre-Op Clinic) [address] [place] [address] [place], [address], 02/19/2023 06:44:15 02/20/20 23 02/19/2023 BASIC METAB OLIC PANEL anion gap 5 mmol/ L 6-14 low Not Available [facility]) [address] [place] [address] [place], [address], 02/19/2023 06:44:15 02/20/20 23 02/19/2023 BASIC METAB OLIC PANEL glucose 95 mg/dL 70-115 Not Available [facility] ([facility]Op [facility]) [address] [place] [address] [place], [address], 02/19/2023 06:44:15 02/20/20 23 02/19/2023 BASIC METAB OLIC PANEL BUN 32 mg/dL 9-20 high Not Available [facility] ([facility]Op [facility]) [address] [place] [address] [place], [address], 02/19/2023 06:44:15 02/20/20 23 02/19/2023 BASIC METAB OLIC PANEL creatinine 1.7 mg/dL 0.5-1. 5 high Not Available [facility] ([facility]Op [facility]) [address] [place] [address] [place], [address], 02/19/2023 06:44:15 02/20/20 23 02/19/2023 BASIC METAB OLIC PANEL BUN/creatini ne ratio 19 ratio 10-20 Not Available [facility] (Pre-Op Clinic) [address] [place] [address] [place], [address], 02/19/2023 06:44:15 02/20/20 23 02/19/2023 BASIC METAB OLIC PANEL glom filtration rate TNP mL/mi n >60- GFR has only been valid ated for patie nts 18-70 years of age. Not Available [facility] ([facility]Op [facility]) [address] [place] [address] [place], [address], 02/19/2023 06:44:15 02/20/20 23 02/19/2023 BASIC METAB OLIC PANEL osmolality (calculated) 296 mosmo l/kg 275-30 1 OSMOL ALITY IS A CALCU LATIO N UTILI ZING THE SERUM /PLAS MA SODIU M, GLUCO SE AND UREA NITRO GEN (BUN) LEVEL S. FOR THE MOST ACCUR ATE RESUL T A MEASU RED SERUM OSMOL ALITY IS CLAUDIO FUNG. Not Available [facility] ([facility]Op [facility]) [address] [place] [address] [place], [address], 02/19/2023 06:44:15 02/20/20 23 02/19/2023 BASIC METAB OLIC PANEL calcium 8.5 mg/dL 8.5-10 .8 Not Available [facility] ([facility]Op [facility]) [address] [place] [address] [place], [address], 02/19/2023 06:44:15 02/20/20 23 02/19/2023 BASIC METAB OLIC PANEL note Unles s other hernandez noted testi ng perfo rmed at: [facility] [address] [place] [address] Arnaud mays MD Not Available [facility] ([facility]Op [facility]) [address] [place] [address] [place], [address], 02/19/2023 06:44:15 04/29/19 24 04/29/2023 CULTU RE URINE results [facility] 04-30 600 >100, 000 COL/M L Gram Negat leonor Rods Not Available [facility] (Lab Registration) [address] [place] [address] [place], [address], 04/30/2023 06:02:04 04/29/19 24 04/29/2023 CULTU RE URINE note Unles s other hernandez noted testi ng perfo rmed at: [facility] [address] [place] [address] [phone] Arnaud mays MD CLIA: [id number] Not Available [facility] (Lab Registration) [address] [place], [address], 04/30/2023 06:02:04 04/29/19 24 04/29/2023 CULTU RE URINE culccur ===== ===== ===== ===== ===== ===== ===== ===== ===== ===== ===== ===== ===== ===== ===== ===== ===== ===== ===== ===== ===== ===== ===== ===== Speci men NO.: [id number] Exam Statu s: Final Proce dure: CULTU RE URINE ===== ===== ===== ===== ===== ===== ===== ===== ===== ===== ===== ===== ===== ===== ===== ===== ===== ===== ===== ===== ===== ===== ===== ===== Iso/R esult : 01 Klebs iella pneum oniae ESBL Antim icrob ic/Do se LUCY Syste lucy Urine __ ___ ___ Ampic illin >16 R* R* Amp/S ulbac moroe >16/8 R R Aztre onam >16 ESBL [...] L Gram Negat leonor Rods Not Available [facility] (Lab Registration) [address] , [place], [address], 05/01/2023 07:47:10 04/29/19 24 04/29/2023 CULTU RE URINE note Unles s other hernandez noted testi ng perfo rmed at: [facility] [place] [address] [phone] Arnaud mays MD CLIA: [id number] Not Available [facility] (Lab Registration) [address] , [place], [address], 05/01/2023 07:47:10 04/29/19 24 04/29/2023 bladd er scan (PROC ) Calculated Residual Urine: 699 ML Not Available [address], [address], 04/29/2023 11:45:28 04/29/19 24 04/29/2023 urina lysis , dipst ick Leukocytes (reference range) large Not Available [address], [address], 04/29/2023 11:44:38 04/29/19 24 04/29/2023 urina lysis , dipst ick Nitrite (reference range:) positi ve Not Available [facility] [address], [address], 04/29/2023 11:44:38 04/29/19 24 04/29/2023 urina lysis , dipst ick Urobilinogen (reference range) 1 Not Available [address], [address], 04/29/2023 11:44:38 04/29/19 24 04/29/2023 urina lysis , dipst ick Protein (reference range) 300 Not Available [address], [address], 04/29/2023 11:44:38 04/29/19 24 04/29/2023 urina lysis , dipst ick pH (reference range 5-8.5) 6.5 Not Available [address], [address], 04/29/2023 11:44:38 04/29/19 24 04/29/2023 urina lysis , dipst ick Blood (reference range:) large Not Available [address], [address], 04/29/2023 11:44:38 04/29/19 24 04/29/2023 urina lysis , dipst ick Specific Bradford (reference range) 1.020 Not Available [address], [address], 04/29/2023 11:44:38 04/29/19 24 04/29/2023 urina lysis , dipst ick Ketone (reference range) trace Not Available [address], [address], 04/29/2023 11:44:38 04/29/19 24 04/29/2023 urina lysis , dipst ick Bilirubin (reference range) small Not Available [address], [address], 04/29/2023 11:44:38 04/29/19 24 04/29/2023 urina lysis , dipst ick Glucose (reference range) negati ve Not Available [facility] [address], [address], 04/29/2023 11:44:38 02/22/20 23 02/21/2023 cardi ac clear ance* No observ ation record ed. [email or web address] [facility] [address] [place] [address] [place], [address], 02/24/2023 10:25:26 03/25/19 24 03/25/2023 CT, chest , w/o contr ast [facility] [address] [place] [address] Phone: Fax: Name: ROBERTO TOUSSAINT Exam Date: 024 : 949 Age 72 Gender : M Access ion: [id number] Physic amalia: JUSTO VU Facili ty: [facility] Facili ty HSV: Outpat ient Exam: CT [...] Thank you for referr ROBERTO Lorenzana to [facility]. Legall y authen ticate d by POPE TIFFANY Collins 03-25 10:48: 47 CC'ed Logic: Orderi ng Provid er: MIRELLA KEMP Attend ing Provid er: MIRELLA KEMP Referr ing Provid er: MIRELLA KEMP Admitt ing Provid er: MIRELLA KEMP [email or web address] [facility] [address], [place], [address], 04/05/2023 08:15:45 01/16/20 24 11/11/2023 PET-C T, skull base to mid-t high scan No observ ation record ed. [facility] ([facility]) [address], [place], [address], 01/20/2024 11:35:25 06/02/19 25 06/01/2024 CT, chest , w/o contr ast No observ ation record ed. [facility] [address], [place], [address], 06/04/2024 15:30:09 Result Notes None recorded. 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 SHAREE Lopez LPNT - [place] & [place] 4 10:52:11 Chronic renal failure 71263602 Active 2022 SHAREE Lopez - LPNT - [place] & [place] 4 10:52:11 Heart failure 45995859 Active 2022 SHAREE Lopez - LPNT - [place] & [place] 4 10:52:11 Diastolic dysfunction 3799681 Active 2022 Anabella vyas, [place] - LPNT - [facility] & [place] 4 10:52:11 Anemia 863826407 Active 2022 Anabella Vernon null[place] - [facility] - & [place] 4 10:52:11 Acute stroke 2126500594224 04 Active 2022 Anabella vyas[place] - [facility] - & [place] 4 10:52:11 Disease of liver 976423762 Active 2022 Anabella vyas, [place] - [facility] - & [place] 4 10:52:11 Hypercholes terolemia 60370710 Active 2022 Anabella vy[place] - [facility] - & [place] 4 10:52:11 Gastroesoph ageal reflux disease 548725342 Active 2022 Anabella Vernon null[place] - [facility] - & [place] 4 10:52:11 Kidney stone 83754419 Active 2022 Anabella [place] - [place] - & [place] 4 10:52:11 Glaucoma 93440908 Active 2022 Anabella vyas[place] - [facility] - & [place] 4 10:52:11 Arthritis 3677420 Active 2022 Anabella vyas[place] - [facility] - & [place] 4 10:52:11 Hypertensiv e disorder 71066071 Active 2022 Anabella Vernon null[place] - LP[facility] - [facility] & [place] 4 10:52:11 Benign prostatic hyperplasia with outflow obstruction 491658471 Active Anabella Vernon null[place] - LPNT - [place] & [place] 4 10:52:11 Problem Notes None recorded. Procedures Surgical History Date Name Laterality Status Provider Name and Address Organization Details Recorded Time 06/10/19 23 Cystoscopy-Male completed Venkatesh Hartley Jr, MD [address] [place] [address] Drive, [address], [place], [address], SHAREE - NT [facility] & [place] 06/09/2022 16:55:32 ureteroscopy completed Anabella TOLLIVER - LPNT [facility] & [place] 06/09/2022 13:23:50 Knee arthroscopy/surg frederick completed Anabella TOLLIVER - NT [facility] & [place] 06/09/2022 13:23:58 Imaging Results Imaging Date Name Status LastModified by Organiz ation Details LastModified Time 02/21/2023 cardiac clearance* completed [email or web address] [facility] [address] [place] [address] [place], [address], 02/24/2023 10:25:26 03/25/2023 CT, chest, w/o contrast completed [email or web address] [place] [address] - Physical Therapy [address] [facility], [place], [address], 04/05/2023 08:15:45 11/11/2023 PET-CT, skull base to mid-thigh scan completed [facility] ([facility] [address] [facility], [place], [address], 01/20/2024 11:35:25 06/01/2024 CT, chest, w/o contrast completed [facility] [address], [place], [address], 06/04/2024 15:30:09 Procedure Notes None recorded. Medical Equipment None Reported. Allergies Allergen ID Allergen Name Allergen Category Reaction Reaction Severity Criticality Documentation Date Start Date Code Code System Note Provider Name and Address Organization Details Recorded Time [id number] No known allergy (situatio n) Not available Not available Not available Not available 03/23/2023 [id number] SNOMED Anabella vyas ME - LPNT [facility] [place] 10:51:22 No known drug allergies Medications Name [...] Base) MCG/ACT d ose:0.0 route:IN HALED starla quency:NM N active Not Available Not Available No [...] [degF] Anabella TOLLIVER - LPNT - [facility] & [place] 01/28/2023 13:10:38 Date Recorded Body temperature Provider Name a nd Address Organization Details Last Updated DateTime 03/23/2023 97.9 [degF] Anabella TOLLIVER - LPNT - [facility] & [place] 03/23/2023 10:51:14 Date Recorded Body temperature Body height Body mass index (BMI) Body weight Provider Name and Address Organization Details Last Updated DateTime 04/29/2023 97.9 [degF] 182.88 cm 33.2 kg/m2 758085.13 g [facility] [place] 04/29/2023 10:18:52 Date Recorded Body height Body mass index (BMI) Body weight Body temperature Provider Name and Address Organization Details Last Updated DateTime 05/27/2023 182.88 cm 28.5 kg/m2 07794.4 g 97.3 [degF] Salud TOLLIVER - NT [facility] [place] 05/27/2023 11:23:11 Date Recorded Body height Body mass index (BMI) Body weight Body temperature Provider Name and Address Organization Details Last Updated DateTime 11/23/2023 182.88 cm 28.5 kg/m2 55059.4 g 97.7 [degF] [facility] [place] 11/23/2023 09:14:40 Social History None recorded. Functional Status Question Answer Note LastModified by Organization D etails LastModified Time What is your level of alcohol consumption? None [email or web address] Information not available 06/02/2022 Mental Status None recorded. Family History Relationship Description Onset Age of this Age Resolved Age Notes LastModified by Organization Details LastModified Time Mother Family history unknown dec [email or web address] Not available 2022 13:23:21 Sister Family history unknown x3 dec Not available 2022 13:23:21 Brother Family history unknown [email or web address] Not available 2022 13:23:21 Father Malignant neoplastic disease dec Not available 2022 13:23:30 Medical History No medical history recorded. Past Encounters Encounter ID Performer Location Encounter Start Date Encounter Closed Date Diagnosis/Indication Diagnosis SNOMED-CT Code Diagnosis ICD10 Code Diagnosis Note [id number] Venkatesh Hartley Jr, MD [facility] [address] [address] 06/09/2022 13:36:19 06/09/2022 15:11:25 Retention of urine 463201011 R33.9 71-year-ol d male with multiple medical [...] cardiologi st who is Dr. Dodge in [place]. If he is deemed a reasonable candidate we will set him up for TURP. [id number] [facility] Jr, [facility] [address] [address] 01/28/2023 12:36:30 01/28/2023 13:36:01 Incomplete emptying of urinary bladder due to benign prostatic hypertrophy [id number] 74304 N40.1 patient with urinary retention. His retention has been managed with a Jason catheter now for several months. States it is being changed on a monthly basis. Cardiac clearance was recently given per Dr. Nain bower as office at [facility]. Patient is not a great surgical candidate. He is on Xarelto. His cardiologi st has deemed him a reasonable surgical candidate. We will get a preop clearance from anesthesio logist at [facility]. We will stop his blood thinners prior to his TURP. We will start him on finasterid e today to help decrease any possible prostate bleeding. [id number] Venkatesh Hartley Jr, MD [facility] U[facility] [address] [address] 03/23/2023 10:46:37 03/23/2023 11:42:10 Incomplete emptying of urinary bladder due to benign prostatic hypertrophy [id number] 26910 N40.1 patient with history of urinary retention secondary to prostate enlargemen t. He underwent a TURP at [facility] on February 18. He returns today with [...] for the prolonged catheteriz ations and removal. [id number] Venkatesh Hartley Jr, MD [facility] U[facility] [address] [address] 04/29/2023 10:18:10 04/29/2023 11:38:41 Recurrent urinary tract infection [id number] N39.0 Patient with urinary symptoms of frequency, urgency and hematuria. His urine appears infected. We will culture the urine and patient placed on a course of cefdinir today. He will follow up in 1 month. Incomplete emptying of urinary bladder due to benign prostatic hypertrophy [id number] 25306 N40.1 patient with history of urinary retention secondary to prostate enlargemen t. He underwent a TURP at [facility] on February 18. patient with complaints of frequency, urgency and gross hematuria. He has evidence of a urinary tract infection which may be contributi ng to his symptoms. We also discussed that hematuria, urgency and frequency could be normal sequela of his TURP. Patient also takes Xarelto for other medical issues. [id number] Venkatesh Hartley Jr, MD [facility] [address] [address] 05/27/2023 11:21:35 05/27/2023 12:30:45 Incomplete emptying of urinary bladder due to benign prostatic hypertrophy [id number] N40.1 patient with history of urinary retention secondary to prostate enlargemen t. He underwent a TURP at [facility] on February 18. He states he is voiding better and he is now ambulatory but PVR still elevated at 671 cc. Recurrent urinary tract infection [id number] N39.0 Pt with uti's due to incomplete emptying. To increase fluids and observe timed voiding. [id number] Venkatesh Hartley Jr, MD [facility] [address] [address] 11/23/2023 09:08:44 11/23/2023 09:50:37 Incomplete emptying of urinary bladder due to benign prostatic hypertrophy [id number] 30755 N40.1 patient with history of urinary retention secondary to prostate enlargemen t. He underwent a TURP at [facility] on February 18. He states he is voiding better and he is now ambulatory but PVR still elevated due to bladder decompensa tion. Recurrent urinary tract infection [id number] N39.0 Pt with uti's due to incomplete [...] Hawkins Member ID Guarantor Name 07/06/2024 2 [place] [employer] [place] FFS/TRADITIO NAL Roberto Toussaint [id number] Roberto Toussaint 07/06/2024 1 [place] Roberto Toussaint [id number] Roberto Toussaint 11/23/2023 2 [place]FS/TRADITIO NAL Roberto Toussaint [id number] Roberto Toussaint Notes Date Note Type Note [...] recommended. Months later he is seen his assistant professor of biochemistry and has been deemed a acceptable risk for the TURP. He continues on Xarelto. He is legally blind. [place] Venkatesh Hartley Jr, MD [address] [place] [address], [address], [place], [address], [facility] & [place] 01/28/2023 14:59:58 03/23/2023 text/html patient is a 72-year-old black male with history of urinary retention. 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. There was a large median lobe that was resected. Patient's prostate was very large and resected in stages. Pathology from the prostatic chips showed no evidence of cancer. Patient returns today for a voiding trial but should have been scheduled for a voiding trial 2-3 weeks ago. He is had the same catheter in since discharge. Venkatesh Hartley Jr, MD [address] [place] [address], [address], [place], [address], [facility] & [place] 03/23/2023 12:37:30 04/29/2023 text/html Patient is a 72-year-old black male with a history of urinary retention. He underwent a TURP on February 18, 2023 at [facility]. Patient had a very large median [...] of 699 cc. Venkatesh Hartley Jr, MD [address] [place] [address], [address], [place], [address], [facility] & [place] 04/29/2023 16:45:15 05/27/2023 text/html Pt with h/o [...] to the Cefdinir. Venkatesh Hartley Jr, MD [address] [place] [address], [address], [place], [address], [facility] & [place] 08/21/2023 23:04:36 11/23/2023 text/html Patient is a [...] as a result. Venkatesh Hartley Jr, MD [address] [place] [address], [address], [place], [address], [facility] & [place] 11/23/2023 12:51:08
[2024-07-23 07:48] LABS: Potassium 4.2 mmoL/L (3.5-5.1)
== END 2024-07-23 23:59 | disposition home or self-care (01) ==
PROVIDERS: PCP Family Medicine; Visit Provider Nurse Practitioner Family
DX: E87.6 Hypokalemia (principal)
CPT/HCPCS: 36415; 84132

== ENCOUNTER 2024-08-17 10:39 | Outpatient (CLI) | payer MEDICARE, MEDICAID, SELFPAY ==
--- OUTSIDE RECORDS SUMMARY | 2006-01-18 07:04 | XMS_ITS | Continuity of Care Document ---
Author Organization [facility] o Address [address] [place] [address] Phone Care Team Providers Care Refrigeration Brazer/Solderer Name Role Phone Bruno Rogel MD Unavailable Unavailable Procedures Procedure Date Emg 1 Ext Nrv conductn motor, ea nrv w/o Fwav Nerve conductn motor ea nrv sensory Advance Directives Directive Yes / No Effective Date File Name No Information Encounters Encounter Description Practice Location Reason(s) For Visit Diagnoses Date Provider Providers Copied on Encounter [facility] [place], [address] [place] [address], [address], [place] tel:[phone] 00 [facility] No Information 7200 6 Juan F Carr. [address] [place], [place], [id number] , [place]. tel:[phone] Family History Family Member Type Diagnosis Age At Onset No Information Payers Payer name Insurance type Covered democrat ID Authoriza tion(s) Medicare [employer] MB [id number] Social History Type Description Quantity Date Captured Comments Sex Male Smoking Status No Information Chief Complaint And Reason For Visit No Information Reason For Referral Reason For Referral No Information History Of Present Illness Encounter Date Complaint History Of Prese nt Illness No Information Functional Status Date Functional Assessmen t No Information Instructions Date Instruction Additional Infor mation No Information Assessments Type Assessment Date No Information Patient Care Teams Name Effective Dates (start - stop) Status Members No Information
--- NOTE | 2024-08-17 10:42 | XR_ITS ---
FINAL REPORT CLINICAL HISTORY: lung cancer COMPARISON: CT of the chest 06/01/2024 FINDINGS: PA and lateral views of the chest are obtained. There is no prior chest x-ray for comparison. The heart is borderline in size. There is a left upper lobe opacity, similar to that seen on a prior chest CT, that likely relates to known lung cancer. There is no pleural effusion, pneumothorax, or acute osseous abnormality. IMPRESSION: Left upper lobe opacity, also seen on the prior chest CT of 06/01/2024, likely relates to the patient's known lung cancer. Reviewed, Interpreted and Dictated by Gale Mcneill MD Transcribed by Danisha Manzanares Authenticated and [facility]
--- NOTE | 2024-08-17 10:42 | XR_ITS ---
FINAL REPORT TECHNIQUE: 3 views left ribs CLINICAL HISTORY: lung cancer COMPARISON: None FINDINGS: 3 views of the left ribs were obtained. There is no acute cardiopulmonary process. No pneumothorax is identified. No displaced rib fracture identified. A left upper lobe opacity is noted, as seen on the chest x-ray also from 08/17/2024. IMPRESSION: No acute rib fracture or pneumothorax is identified. Reviewed, Interpreted and Dictated by Gale Mcneill MD Transcribed by Danisha Manzanares Authenticated and [facility]
--- NOTE | 2024-08-17 10:42 | XR_ITS ---
FINAL REPORT TECHNIQUE: Left humerus 4 views CLINICAL HISTORY: Pain left side of body COMPARISON: 02/29/2024 FINDINGS: LEFT HUMERUS: 4 images of the left humerus were obtained. There is no evidence of fracture or dislocation. The joint spaces are intact. There is no soft tissue abnormality identified. IMPRESSION: No acute bony abnormality. Reviewed, Interpreted and Dictated by Gale Mcneill MD Transcribed by Danisha Manzanares Authenticated and [facility]
--- OUTSIDE RECORDS SUMMARY | 2024-08-17 10:43 | XMS_ITS | Encounter Summary ---
Author Organization [facility] Address [address] [place] [address] Care Team Providers Care Recruiter Account Manager Name Role Phone Edi Chase MD Primary Care Provider [phone] Sam Sanchez MD Unavailable [phone] Cayetano Cannon MD Unavailable [phone] Encounter Details Date Type Department Care Team (Late st Contact Info) Description 09/30/2022 Lab Requisition [facility] [address] [place] [address] Lyn Santana MD [address] [place] [id number] Malignant neoplasm of upper lobe, left bronchus or lung (CMS/HCC) Social History Tobacco Use Types Packs/Day Years Used Date Smoking Tobacco: Former Cigarettes Smokeless Tobacco: Never Alcohol Use Standard Drinks/Week Comments Never 0 (1 standard drink = 0.6 oz pur e alcohol) Sex and Gender Information Value Date Recorded Sex Assigned at Not on file Legal Sex Male 12:04 PM EDT Gender Identity Not on file Sexual Orientation Not on file documented as of this encounter Plan of Treatment Upcoming Encounters Date Type Department Care Team (Late st Contact Info) Description 08/27/2024 1:00 PM EDT Consult [place] [facility] [address], [address] [place] [phone] Cuong Catherine MD [address] [place], [place] [phone] 09/28/2024 12:40 PM EDT Office Visit [facility] [address] [place] [address] Florentin Tillman MD [address] [place] [address] documented as of this encounter Procedures Procedure Name Priority Date/Time Associated Diagnosis Comments AP MISCELLANEOUS LAB TEST (SO) Routine 09/08/2022 11:51 AM EDT Malignant neoplasm of upper lobe, left bronchus or lung (CMS/HCC) documented in this encounter Results * AP Miscellaneous Lab Test (09/08/2022 11:51 AM EDT) Test name SC Profile 10/15/2022 7:42 AM EDT [facility] Comment:[id number] Test Result see scan 10/15/2022 7:42 AM EDT [facility] See Scanned Result 10/15/2022 7:42 AM EDT [facility] Tissue 09/08/2022 11:5 1 AM EDT 09/30/2022 2:24 PM EDT us Lyn Santana MD LAB REF LAB BLOOD AND FLUID ORD Final Result [facility] documented in this encounter Visit Diagnoses Diagnosis Malignant neoplasm of upper lobe, left bronchus or lung (CMS/HCC) documented in this encounter Additional Health Concerns Infection Onset Date Last Indicated Resolved Time 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 12/24/2023 12/24/2023 Tuberculosis Rule-Out 02/21/2024 02/21/2024 Assessment Noted Time A Body Mass Index follow-up plan has been documented for the patient 08/20/2022 10:44 AM EDT documented as of this encounter Care Teams Recruiter Account Manager Relationship Specialty Start Date End Date Edi Chase MD [address] [facility] [place] [address] PCP - General 03/14/20 Sam Sanchez MD [address] [place] [address] Consulting Physician Pulmonary Disease 08/11/22 Cayetano Cannon MD [address] [place] [facility] [address] [place] [address] Referring Physician 08/11/22 documented as of this encounter
--- OUTSIDE RECORDS SUMMARY | 2024-08-17 10:43 | XMS_ITS | Encounter Summary ---
Author Organization [facility] Address [address] [place] [address] Care Team Providers Care Composite Technician Name Role Phone Edi Chase MD Primary Care Provider [phone] Sam Sanchez MD Unavailable [phone] Cayetano Cannon MD Unavailable [phone] Encounter Details Date Type Department Care Team ([facility] st Contact Info) Description 01/05/2024 Orders Only External Location [address] [place] [address] Cedric Hinton MD [address] [place] [address] Social History Tobacco Use Types Packs/Day Years Used Date Smoking Tobacco: Former Cigarettes Smokeless Tobacco: Never Alcohol Use Standard Drinks/Week Comments Never 0 (1 standard drink = 0.6 oz pur e alcohol) Humiliation, Afraid, Rape, a nd Kick questionnaire Answer Date Recorded Within the last year, have y ou been afraid of your partner or ex-partner? Patient unable to answer 12/26/2023 Within the last year, have y ou been humiliated or emotionally abused in other ways by your partner or ex-partner? Patient unable to answer 12/26/2023 Within the last year, have y ou been kicked, hit, slapped, or otherwise physically hurt by your partner or ex-partner? Patient unable to answer 12/26/2023 Within the last year, have y ou been raped or forced to have any kind of sexual activity by your partner or ex-partner? Patient unable to answer 12/26/2023 Social Connection and Isolation Panel Answer Date Recorded In a typical week, how many times do you talk on the phone with family, friends, or neighbors? Patient unable to answer 12/26/2023 How often do you get togethe r with friends or relatives? Patient unable to answer 12/26/2023 How often do you attend chur ch or yarsanism services? Patient unable to answer 12/26/2023 Do you belong to any clubs o r organizations such as hindu groups, unions, fraternal or athletic groups, or school groups? Patient unable to answer 12/26/2023 How often do you attend meet ings of the clubs or organizations you belong to? Patient unable to answer 12/26/2023 Are you , , di vorced, , never , or living with a partner? Patient unable to answer 12/26/2023 AUDIT-C Answer Date Recorded Q1: How often do you have a drink containing alcohol? Patient unable to answer 12/26/2023 Q2: How many drinks containi ng alcohol do you have on a typical day when you are drinking? Patient unable to answer Q3: How often do you have si x or more drinks on one occasion? Patient unable to answer 12/26/2023 [facility] - Occupational Stress Questionnaire Answer Date Recorded Do you feel stress - tense, restless, nervous, or anxious, or unable to sleep at night because your mind is troubled all the time - these days? Patient unable to answer 12/26/2023 Exercise Vital Sign Answer Date Recorde d On average, how many days pe r week do you engage in moderate to strenuous exercise (like a brisk walk)? Patient unable to answer 12/26/2023 Minutes of Exercise per Session Not on file 12/26/2023 Hunger Vital Sign Answer Date Recorded Within the past 12 months, y ou worried that your food would run out before you got the money to buy more. Patient unable to answer 12/26/2023 Within the past 12 months, t he food you bought just didn't last and you didn't have money to get more. Patient unable to answer 12/26/2023 PRAPARE - Transportation Answer Date Re corded In the past 12 months, has l ack of transportation kept you from medical appointments or from getting medications? Patient unable to answer 12/26/2023 In the past 12 months, has l ack of transportation kept you from meetings, work, or from getting things needed for daily living? Patient unable to answer 12/26/2023 Housing Stability Vital Sign Answer Nick e Recorded In the last 12 months, was t here a time when you were not able to pay the mortgage or rent on time? Patient unable to answer 12/26/2023 Number of Places Lived in the Last Year Not on f ile 12/26/2023 In the last 12 months, was t here a time when you did not have a steady place to sleep or slept in a mcc (including now)? Patient unable to answer 12/26/2023 Utilities Answer Date Recorded In the past 12 months has th e electric, gas, oil, or water company threatened to shut off services in your home? Patient unable to answer 12/26/2023 Sex and Gender Information Value Date Recorded Sex Assigned at Not on file Legal Sex Male 12:04 PM EDT Gender Identity Not on file Sexual Orientation Not on file documented as of this encounter Plan of Treatment Upcoming Encounters Date Type Department Care Team (Late st Contact Info) Description 08/27/2024 1:00 PM EDT Consult [place] [facility] [address], 1st [place] [address] Cuong Catherine MD [address] [place] [address] 09/28/2024 12:40 PM EDT Office Visit [facility] [address] [place] [address] Florentin Tillman MD [address] [place] [phone] documented as of this encounter Procedures Procedure Name Priority Date/Time Associated Diagnosis Comments CT OUTSIDE IMAGES 01/05/2024 10:11 AM EDT documented in this encounter Results * CT OUTSIDE IMAGES (01/05/2024 10:11 AM EDT) Anatomical Region Laterality Modality Computed Tomogra phy 01/05/2024 10:1 1 AM EDT Cedric Hinton MD IMG CT PROCEDURES Final Result documented in this encounter Visit Diagnoses Not on filedocumented in this encounter Additional Health Concerns Infection Onset Date Last Indicated Resolved Time 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 12/24/2023 12/24/2023 Tuberculosis Rule-Out 02/21/2024 02/21/2024 Assessment Noted Time A Body Mass Index follow-up plan has been documented for the patient 01/02/2024 12:28 PM EDT documented as of this encounter Care Teams Composite Technician Relationship Specialty Start Date End Date Edi Chase MD [address] [facility] [place] [address] PCP - General 03/14/20 Sam Sanchez MD [address] [place] [address] Consulting Physician Pulmonary Disease 08/11/22 Cayetano Cannon MD [address] [place] [address] Referring Physician 08/11/22 documented as of this encounter
--- OUTSIDE RECORDS SUMMARY | 2024-08-17 10:45 | XMS_ITS | Encounter Summary ---
Author Organization [facility] Address [address] [place] [address] Care Team Providers Care Social Science Research Assistant Name Role Phone Edi Chase MD Primary Care Provider [phone] Sam Sanchez MD Unavailable [phone] Cayetano Cannon MD Unavailable [phone] Encounter Details Date Type Department Care Team (Late st Contact Info) Description 07/08/2022 Orders Only External Location [address] [place] [phone] [address] [place] [address] Social History Tobacco Use Types Packs/Day Years Used Date Smoking Tobacco: Never Assessed Sex and Gender Information Value Date Recorded Sex Assigned at Not on file Legal Sex Male 12:04 PM EDT Gender Identity Not on file Sexual Orientation Not on file documented as of this encounter Plan of Treatment Upcoming Encounters Date Type Department Care Team (Late st Contact Info) Description 08/27/2024 1:00 PM EDT Consult [place] [facility] [address] [place] [phone] Cuong Catherine MD [address] [place] [address] 09/28/2024 12:40 PM EDT Office Visit [address] [place] [address] Florentin Tillman MD [address] [place] [phone] documented as of this encounter Procedures Procedure Name Priority Date/Time Associated Diagnosis Comments CT CHEST WO IV CONTRAST 07/08/2022 7:06 AM EDT documented in this encounter Results * CT Chest wo IV Contrast (07/08/2022 7:06 AM EDT) Anatomical Region Laterality Modality Chest Computed Tomogra phy 07/08/2022 7:06 AM EDT Armani MAYA IMG CT PROCEDURES Final Result documented in this encounter Visit Diagnoses Not on filedocumented in this encounter Additional Health Concerns Infection Onset Date Last Indicated Resolved Time 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 12/24/2023 12/24/2023 Tuberculosis Rule-Out 02/21/2024 02/21/2024 documented as of this encounter Care Teams Social Science Research Assistant Relationship Specialty Start Date End Date Edi Chase MD [address] [place] [address] PCP - General 03/14/20 Sam Sanchez MD [address] [place] [address] Consulting Physician Pulmonary Disease 08/11/22 Cayetano Cannon MD [address] [facility] [address] [place] [address] Referring Physician 08/11/22 documented as of this encounter
--- OUTSIDE RECORDS SUMMARY | 2024-08-17 10:45 | XMS_ITS | Clinical Summary ---
Author Organization Healthcare Address [address] [place] [address] Care Team Providers Care Photoengraver Name Role Phone Edi Chase MD Primary Care Provider [phone] Sam Sanchez MD Unavailable [phone] Cayetano Cannon MD Unavailable [phone] Allergies No known active allergies Medications loperamide (Imodium) 2 MG capsule Take 1 capsule (2 mg) by mouth every 6 (six) hours if needed. Active tamsulosin (Flomax) 0.4 MG 24 hr capsule Take 1 capsule (0.4 mg) by mouth every night. Active OXcarbazepine (Trileptal) 300 MG tablet Take 1 tablet (300 mg) by mouth 2 (two) times a day. Active omeprazole (PriLOSEC) [address] capsule Take 1 capsule (20 mg) by mouth 1 (one) time each day. Do not crush or chew. Active atorvastatin (Lipitor) 10 MG tablet Take 1 tablet (10 mg) by mouth 1 (one) time each day. Active cetirizine (ZyrTEC) 10 MG tablet Take 1 tablet (10 mg) by mouth 1 (one) time each day. Active ferrous sulfate 325 (65 Fe) MG tablet Take 1 tablet (325 mg) by mouth 1 (one) time each day with breakfast. Active Multiple Vitamins-Mineral s (multivitamin with minerals) tablet Take 1 tablet by mouth 1 (one) time each day. Active acetaminophen (Tylenol) 500 MG tablet Take 1 tablet (500 mg) by mouth every 4 (four) hours if needed. Active Albuterol Sulfate 108 (90 Base) MCG/ACT aerosol powder Inhale 1 puff every 4 (four) hours if needed. Active guaiFENesin (Robitussin) 100 MG/5ML liquid Take 10 mL (200 mg) by mouth every 6 (six) hours if needed for cough. Active ondansetron (Zofran) 4 MG tablet Take 1 tablet (4 mg) by mouth every 4 (four) hours if needed. Active aspirin 81 MG chewable tablet Chew 1 tablet (81 mg) 1 (one) time each day. Active escitalopram (Lexapro) 5 MG tablet Take 1 tablet (5 mg) by mouth 1 (one) time each day. Active fluticasone (Flonase) 50 MCG/ACT nasal spray Administer 2 sprays into each nostril 1 (one) time each day. Shake gently. Before first use, prime pump. After use, clean tip and replace cap. Active isosorbide mononitrate ER (Imdur) 30 MG 24 hr tablet Take 1 tablet (30 mg) by mouth 1 (one) time each day. Do not crush or chew. Active Lidocaine 4 % patch Apply 1 patch topically 1 (one) time each day. Remove & discard patch within 12 hours or as directed by MD. Active Polyethyl Glycol-Propyl Glycol (Systane) 0.4-0.3 % gel Apply to affected eye(s) every night. Active Fluticasone-Umec lidin-Vilant (Trelegy Ellipta) 100-62.5-25 MCG/ACT aerosol powder Inhale 1 puff 1 (one) time each day. Active HYDROcodone-acet aminophen (Glasford) 5-325 MG tablet Take 1 tablet (5 mg of hydrocodone) by mouth 2 (two) times a day. Active amLODIPine (Norvasc) 5 MG tablet Take 1 tablet (5 mg) by mouth 1 (one) time each day. Active metoprolol succinate XL (Toprol-XL) 200 MG 24 hr tablet Take 0.5 tablets (100 mg) by mouth 1 (one) time each day. 30 tablet 4 Active finasteride (Proscar) 5 MG tablet Take 1 tablet (5 mg) by mouth 1 (one) time each day. Do not crush, chew, or split. 4 Active timolol (Betimol) 0.5 % ophthalmic solution 1 drop 2 (two) times a day. Active Active Problems Problem Noted Date Diagnosed Date Septic shock 12/23/2023 Chronic fatigue 12/05/2023 Iron deficiency anemia nasreen downs to inadequate dietary iron intake 12/05/2023 Hypertensive chronic kidney disease with stage 1 through stage 4 chronic kidney disease, or unspecified chronic kidney disease 12/01/2023 Anemia in stage 4 chronic kidney disease 024 Polycystic kidney disease 12/01/2023 Chronic hypoxic respiratory failure, on home oxy gen therapy 12/01/2023 Chronic kidney disease-mineral and bone disorder (CKD-MBD) 12/01/2023 Immunizations Immunization Administration Dates Next Due Hep A, Adult 01/27/2018 Influenza, Unspecified 01/03/2011 Influenza, high-dose, quadrivalent 01/03/2018, Influenza, injectable, quadrivalent, preservativ e free 01/14/2020,01/30/2019 Family History Medical History Relation Name Comments Anesthesia problems Neg Hx Malig Hyperthermia Neg Hx Social History Tobacco Use Types Packs/Day Years Used Date Smoking Tobacco: Former Cigarettes 2 47 1 971 - 2017 Smokeless Tobacco: Never Tobacco Cessation:Counseling Given: Not Answered Alcohol Use Standard Drinks/Week Comments Never 0 [...] often do you attend chur ch or temple services? Patient unable to answer 12/26/2023 Do you belong to any clubs o r organizations such as anabaptist groups, unions, fraternal or athletic groups, or [...] one occasion? Patient unable to answer [facility]2023 [facility] - Occupational Stress Questionnaire Answer Date Recorded [...] place to sleep or slept in a penitentiary (including now)? Patient unable to answer 12/26/2023 [...] on file Sexual Orientation Not on file Last Filed Vital Signs Vital Sign Reading Time Taken Comments Blood Pressure 118/70 05/04/2024 9:19 AM EST Pulse 70 05/04/2024 9:19 AM EST Temperature 36.5 C (97.7 F) 05/04/2024 9:19 AM EST Respiratory Rate 18 05/04/2024 9:19 AM EST Oxygen Saturation 92% 05/04/2024 9:1 9 AM EST on 2 liters of oxygen Inhaled Oxygen Concentration - - Weight 119 kg (261 lb 12.8 oz) 05/04/2024 9:19 AM EST Height 188 cm (6' 2 ) 05/04/2024 9:19 AM EST Body Mass Index 33.61 05/04/2024 9:19 AM EST Plan of Treatment Upcoming Encounters Date Type Department Care Team (Late st Contact Info) Description 08/27/2024 1:00 PM EDT Consult [place] [facility] [address], [address] [place] [address] Cuong Catherine MD [address] [place] [address] 09/28/2024 12:40 PM EDT Office Visit [place] [id number] [facility] [address] [place] [address] Florentin Tillman MD [address] [place] [phone] Health Maintenance Due Date Last Done Comments [facility]-Depression Screening 1950 [facility]-Medicare Annual Wellness (AWV) 1950 [facility]-/Child/Adol SDOH Screenings 1950 [facility]-DTaP,Tdap,and Td Vaccines (1 - Tdap) 08/31/1967 [facility]-Pneumococcal Vaccine: 50+ Years (1 of 2 - PCV) 08/31/1967 [facility]-Zoster Vaccines (1 of 2) 08/31/1967 CT Colonography 1993 Colonoscopy 1993 FIT-DNA 1993 FIT 1993 FOBT 1993 Sigmoidoscopy 1993 [facility]-Colorectal Cancer Screening 1993 [facility]-Abdominal Aortic Aneurysm (AAA) Screening 2013 [id number]-79 Vaccine (3 - Pfizer risk series) 05/10/2020 04/12/2020, 03/22/2020 [facility]-RSV Vaccine: 60+ Years or (1 - 1-dose 75+ series) 08/31/2023 [facility]- SDOH Screenings 06/25/2024 [facility]-Adult SDOH Screenings 06/25/2024 12/26/2023 [facility]-Influenza Vaccine (Season Ended) 2024 01/14/2020, 01/30/2019, 01/03/2018, Additional history exists [facility]-Diabetes: Hemoglobin A1C 12/22/2024 12/23/2023 [facility]-Hepatitis A Vaccines Aged Out 01/27/2018 No longer eligible based on patient's age to complete this topic [facility]-Hepatitis C Screening Completed 12/23/2023 [facility]-Obesity Intervention Completed 025, 02/06/2024, 12/23/2023, Additional history exists HPV Vaccines Aged Out No longer eligi ble based on patient's age to complete this topic [facility]-HIB Vaccines Aged Out No longer e ligible based on patient's age to complete this topic [facility]-IPV Vaccines Aged Out No longer e ligible based on patient's age to complete this topic [facility]-Rotavirus Vaccines Aged Out No lo nger eligible based on patient's age to complete this topic Procedures Procedure Name Priority Date/Time Associated Diagnosis Comments HEPATITIS C ANTIBODY - ED W/REFLEX TO HCV QUANT PCR STAT 12/23/2023 5:39 PM EDT HEMOGLOBIN A1C STAT Add-on 12/23/2023 5:39 PM EDT from Last 3 Months or Most Recently Relevant to Health Maintenance Results * Hepatitis C Antibody - ED (12/23/2023 5:39 PM EDT) Hepatitis C Antibody Negative Negative 12/23/2023 6:55 PM EDT [facility] Blood Venous blood specimen / Unknown Venipuncture / Unknown 12/23/2023 5:39 PM EDT 12/23/2023 6:04 PM EDT Med Lyn MD LAB BLOOD ORDERABLES Final Result [facility] [address] [place] [address] * (ABNORMAL) Hemoglobin A1c (12/23/2023 5:39 PM EDT) Hemoglobin A1c 6.3(H) <5.7 % 12/24/2023 12:22 AM EDT [facility] Blood Venous blood specimen / Unknown Venipuncture / Unknown 12/23/2023 5:39 PM EDT 12/23/2023 5:55 PM EDT Narrative [facility] - 12/24/2023 12:22 AM EDT HA1C Interpretive Data: Diagnosis of Diabetes: Diabetic > or = 6.5% Pre-diabetic 5.7 to 6.4% Non-diabetic < or = 5.6% Glycemic Targets for Type I and Type II Diabetics: Non- Adults <7.0% Adults <6.0% Children and Adolescents <7.5% Source: [place] [employer]. Standards of medical care in diabetes,2017. Diabetes Care.2017:40 (suppl 1):S1-S135. HbA1c assay performed by an ion-exchange chromatography method that is certified traceable to the DCCT. 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 Yes Care Teams Photoengraver Relationship Specialty Start Date End Date Edi Chase MD [address] [place] [address] [place] [address] PCP - General 03/14/20 Sam Sanchez MD [address] [place] [address] Consulting Physician Pulmonary Disease 08/11/22 Cayetano Cannon MD [address] [place] [address] Referring Physician 08/11/22
--- OUTSIDE RECORDS SUMMARY | 2024-08-17 10:45 | XMS_ITS | Encounter Summary ---
Author Organization Healthcare Address [address] [place] [address] Care Team Providers Care School Photographer Name Role Phone Edi Chase MD Primary Care Provider Sam Sanchez MD Unavailable [phone] Cayetano Cannon MD Unavailable [phone] Encounter Details Date Type Department Care Team (Late st Contact Info) Description 12/12/2023 Orders Only External Location [address] [place] [id number] Provider, External Social History Tobacco Use Types Packs/Day Years [...] Encounters Date Type Department Care Team (Late Contact Info) Description 08/27/2024 1:00 PM EDT Consult [place] [facility] [address] [place] [address] Cuong Catherine MD [address] [place] [address] 09/28/2024 12:40 PM EDT Office Visit [facility] [address] [place] [address] Florentin Tillman MD [address] [place] [address] documented as of this encounter Procedures Procedure Name Priority Date/Time Associated Diagnosis Comments PET OUTSIDE IMAGES 12/12/2023 12:13 PM EDT documented in this encounter Results * PET OUTSIDE IMAGES (12/12/2023 12:13 PM EDT) Anatomical Region Laterality Modality Nuclear Medicine 12/12/2023 12:1 3 PM EDT External Provider IMG NM PROCEDURES Final Result documented in this encounter Visit Diagnoses Not on filedocumented in this encounter Additional Health Concerns Infection Onset Date Last Indicated Resolved Time 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 12/24/2023 12/24/2023 Tuberculosis Rule-Out 02/21/2024 02/21/2024 Assessment Noted Time A Body Mass Index follow-up plan has been documented for the patient 12/01/2023 10:25 AM EDT documented as of this encounter Care Teams School Photographer Relationship Specialty Start Date End Date Edi Chase MD [address] [place] [address] PCP - General 03/14/20 Sam Sanchez MD [address] [place] [address] Consulting Physician Pulmonary Disease 08/11/22 Cayetano Cannon MD [address] [facility] [address] [place] [address] Referring Physician 08/11/22 documented as of this encounter
--- OUTSIDE RECORDS SUMMARY | 2024-08-17 10:45 | XMS_ITS | Clinical Summary ---
Author Organization [facility] Address [address] [place] [address] Phone Care Team Providers Care Scrap Shear Operator Name Role Phone Unavailable Primary Care Provider Unavailabl e Allergies No known active allergies Medications * This document contains information received from the source organization and may not represent a complete record from that organization. amlodipine (NORVASC) 10 mg tablet Take by mouth daily. Active lisinopril (PRINIVIL;ZESTRI L) 10 mg tablet Take by mouth daily. Active atenolol (TENORMIN) 50 mg tablet Take by mouth daily. Active hydrocodone-acet aminophen (NORCO) 5-325 mg per tablet Take 5-10 mg by mouth every 6 hours as needed for Pain. 15 Tab 0 03/27/2011 Active simvastatin (ZOCOR) 80 mg tablet TAKE 1 TABLET BY MOUTH DAILY 30 Tab 0 05/20/2011 Active Active Problems Problem Noted Date Diagnosed Date Anxiety disorder, unspecified 07/23/2018 Mood disorder 07/23/2018 Irritability and anger 07/23/2018 Agitation 07/23/2018 Socially inappropriate behavior 07/23/2018 Immunizations Immunization Administration Dates Next Due Influenza Vaccine, Unspecified Formulation 01/03 Surgical History Surgery Date Site/Laterality Comments TOTAL KNEE ARTHROPLASTY left EYE SURGERY JOINT REPLACEMENT left knee replacement Medical History Medical History Date Comments Hypertension Blind in both eyes had acid thro wn in eyes age 19 Pneumonia Arthritis chronic kidney disease kidney st one Family History Medical History Relation Name Comments Early Sister Relation Name Status Comments Sister Social History Tobacco Use Types Packs/Day Years Used Date Smoking Tobacco: Every Day Cigarettes Smokeless Tobacco: Never Tobacco Cessation:Ready to Q uit: Yes; Counseling Given: Yes Alcohol Use Standard Drinks/Week Comments No 0 (1 standard drink = 0.6 oz pur e alcohol) Sexually Active Control Partners Comments Not Currently Sex and Gender Information Value Date Recorded Sex Assigned at Not on file Legal Sex Male 6:45 AM EDT Gender Identity Not on file Sexual Orientation Not on file Obstetrics History Last Filed Vital Signs Vital Sign Reading Time Taken Comments Blood Pressure 128/84 07/17/2012 3:08 PM EDT Pulse 60 07/17/2012 3:08 PM EDT Temperature 36.6 C (97.9 F) 07/17/2012 3:08 PM EDT Respiratory Rate 18 03/27/2011 5:47 PM EST Oxygen Saturation 98% 07/17/2012 3:08 PM EDT Inhaled Oxygen Concentration - - Weight 90.7 kg (200 lb) 03/27/2011 4:11 PM EST Height 193 cm (6' 4 ) 07/17/2012 3:08 PM EDT Body Mass Index 24.34 03/27/2011 4:11 PM EST Plan of Treatment Health Maintenance Due Date Last Done Comments Wellness Exam Medicare 08/31/1953 Hepatitis C Screening 1966 DTaP/TDaP/Td (1 - Tdap) 08/31/1967 Pneumococcal Vaccine 50+ (1 of 2 - PCV) 08/31/1967 Cologuard 1993 Colon Cancer Screening 1993 Colonoscopy 1993 FIT 1993 Sigmoidoscopy 1993 Virtual Colonography 1993 Zoster (1 of 2) 1998 AAA Screening 2013 RSV or 60+ (1 - 1-d ose 75+ series) 08/31/2023 COVID-19 Vaccine ( - 2023-2 5 season) 2023 Influenza Vaccine (Season Ended) 2024 01/04/20 11 Hepatitis B Vaccine Aged Out No longe r eligible based on patient's age to complete this topic Meningococcal B Vaccine Aged Out No l onger eligible based on patient's age to complete this topic Medical Devices Implanted Type Area Mine Captain Device Identifier Shelf Expiration Date Model / Serial / Lot Stent Coronary Vision Rx 3.50mm X 18mm - [id number] Implanted:Qty: 1 on 03/16/2010 at ED [employer] Explanted:at ED [employer] (Quantity not on file) Stent-Vis ion [facility]:VASC DEV [id number] / / [id number] Insurance [place]ARE [place]
--- OUTSIDE RECORDS SUMMARY | 2024-08-17 10:45 | XMS_ITS | Encounter Summary ---
Author Organization Healthcare Address [address] [place] [address] Care Team Providers Care Firefighter Marine Name Role Phone Edi Chase MD Primary Care Provider [phone] Sam Sanchez MD Unavailable [phone] Cayetano Cannon MD Unavailable [phone] Encounter Details Date Type Department Care Team (Late st Contact Info) Description 12/26/2023 Lab Requisition [facility] [address] [place] [address] Amado Horton MD [address] [facility] [address] [place] [address] Encounter for general adult medical examination without abnormal findings Social History Tobacco Use Types Packs/Day Years [...] 12/26/2023 How often do you attend chur or shinto services? Patient unable to answer 12/26/2023 Do you belong to any clubs o r organizations such as alevism groups, unions, fraternal or athletic groups, or [...] one occasion? Patient unable to answer 12/26/2023 [facility] - Occupational Stress Questionnaire Answer Date [...] place to sleep or slept in a usp (including now)? Patient unable to answer 12/26/2023 [...] on file documented as of this encounter Functional Status * AUDIT-C Score Answer Date of Assessment Author -1 12/26/2023 3:21 PM EDT Praveen Nair RN * Question Answer Date of Assessment Author Q1: How often do you have a drink containing alcohol? Patient unable to answer 12/26/2023 3:21 PM MIMAT Nicole Nair RN Q2: How many drinks containing alcohol do you have on a typical day when you are drinking? Patient unable to answer 12/26/2023 3:21 PM EDT Nicole Nair RN Q3: How often do you have six or more drinks on one occasion? Patient unable to answer 12/26/2023 3:21 PM Nicole Burns RN * Calculated C-SSRS Risk Score (Lifetime/Recent) Answer Date of Assessment Author No Risk Indicated 12/29/2023 4:00 PM Solange Anderson RN * Question Answer Date of Assessment Author 1. Wish to be (Past 1 Month) No 024 4:00 PM EDT Farhad, Solange U, RN 2. Non-Specific Active Suici roxann Thoughts (Past 1 Month) No 12/29/2023 4:00 PM EDT Dylan Llamas on U, RN 6. Suicidal Behavior (Lifetime) No 4:00 PM EDT Darian Llamasion U, RN documented as of this encounter Plan of Treatment Upcoming Encounters Date Type Department Care Team (Late st Contact Info) Description 08/27/2024 1:00 PM EDT Consult [place] [facility] [address], [address] [place] [address] Cuong Catherine MD [address] [place] [address] 09/28/2024 12:40 PM EDT Office Visit [facility] [address] [facility] [address] [place] [address] Florentin Tillman MD [address] [place] [address] documented as of this encounter Procedures Procedure Name Priority Date/Time Associated Diagnosis Comments MULTI DRUG RESISTANCE TEST Routine 12/26/2023 2:00 PM EDT Encounter for general adult medical examination without abnormal findings documented in this encounter Results * Multi Drug Resistance Test (12/26/2023 2:00 PM EDT) Culture No growth at day 1 12/27/2023 12:24 PM EDT [facility] Swab (Nares and Brenda Rectal) 12/26/2023 2:00 PM EDT 12/26/2023 3:15 PM EDT us Amado Horton MD LAB MICROBIOLOGY - GEN ERAL ORDERABLES Final Result [facility] [address] [place] [address] documented in this encounter Visit Diagnoses Diagnosis Encounter for general adult medical examination without abnormal findings documented in this encounter Additional Health Concerns Infection Onset Date Last Indicated Resolved Time 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
--- OUTSIDE RECORDS SUMMARY | 2024-08-17 10:45 | XMS_ITS | Clinical Summary ---
Author Organization [facility] Address [address] [place] [address] Phone Care Team Providers Care Director Broadcast Name Role Phone Gala Osborne APRN Primary Care Physician [phone] [ ] Conditions or Problems Problem Name Problem Code Onset Date Status Entry Date Provider Comment Standard Description Annotate HEMATURIA NOS R31.9 (ICD-10-CM ) 05/11 Active 05/11 Gala Furnclayton AVILA Hematuria, unspecified ABNORMAL ELECTROCARDIO GRAM 654296669 (SNOMED CT) 05/11 Active 05/11 Gala Furnish CHILD WELFARE MANAGER Electrocardiogram abnormal BLINDNESS, BILATERAL 189605322 (SNOMED CT) 05/11 Active 05/11 Gala Furnclayton CHILD WELFARE MANAGER Blindness - both eyes HYPERTENSION 37977010 (SNOMED CT) 05/11 Active 05/11 Gala Furnish CHILD WELFARE MANAGER Hypertensive disorder FLANK PAIN, RIGHT 154863342 (SNOMED CT) 05/11 Active 05/11 Gala Furnish CHILD WELFARE MANAGER Flank pain CHEST PAIN NOS 70756852 (SNOMED CT) 05/11 Active 05/11 Gala Furnish CHILD WELFARE MANAGER Chest pain Medications Medication Instructions Start Date Stop Date Generic Name NDC Provider HYDROCODONE-ACET AMINOPHEN 5-325 MG TABS 1-2 po q 6 hours prn pain HYDROCODONE-ACET AMINOPHEN [id number] Gala Furnclayton CHILD WELFARE MANAGER CIPROFLOXACIN HCL 500 MG TABS Take 1 tablet by mouth twice a day CIPROFLOXACIN HCL [id number] Gala Furnclayton CHILD WELFARE MANAGER Medications Administered No information available. Allergies, Adverse Reactions, Alerts No information available. Results Date Name Value Unit Range Flag Description Office Visit: chest pain, ba ck p schedule stree test/cmp/culture urine PH URINE 6.0 pH of Urine by Test strip SPEC GR URIN 1.020 Specific gravity of Urine by Test strip APPEARANCE U clear Appearan ce of Urine UA COLOR lt. yellow Color of Urine GLUCOSE, URN negative Glucose [Mass/volume] in Urine by Test strip BILIRUBIN UR negative Bilirub in.total [Presence] in Urine by Test strip KETONES URN negative Ketones [Mass/volume] in Urine by Test strip BLOOD UR DIP 1+ blood in urine (hemoglobin) by dipstick PROTEIN, URN 1+ protein, urine, semiquantitative (dipstick) UROBILINOGEN 0.2 Urobilin ogen [Presence] in Urine by Test strip NITRITE URN negative Nitrite [Presence] in Urine by Test strip WBC DIPSTK U negative Leukocy te esterase [Presence] in Urine by Test strip Plan of Care Type Date Detail Pending order Urine Dip Auto Pending order Pharmacologic St ress Test Pending order Urine Culture (O utside Lab) Pending order CMP (Outside Lab ) Pending order CMP (Outside Lab ) Pending Order exclud ed from report: Pending order Pharmacologic St ress Test Pending Order exclud ed from report: Procedures Code Procedure Name Date Entry Date CPT-87416 ECG; interpretation and report only (Medicare use [id number] + [id number]) CPT-77951 Urine Dip Auto CPT-06191 CMP (Outside Lab) Pharm Stress Test Pharmacologic Stress Test CPT-52719 Urine Culture (Outside Lab) Vital Signs Date Name Value Unit Description Body Temperature 97.5 [degF] temperat ure E&M Body Temperature 36.4 Sadie temperat ure in centigrade E&M BP Diastolic 91 mm[Hg] blood pressu re, diastolic BP Systolic 145 mm[Hg] blood pressur e, systolic Heart Rate 73 /min pulse rate Weight Measured 188 [lb_av] weight E& M Weight Measured 188 [lb_av] weight E& M Weight Measured 85.45 kg weight in kilograms E&M Immunizations No information available. Advance Directives No information available.
--- OUTSIDE RECORDS SUMMARY | 2024-08-17 10:45 | XMS_ITS | Encounter Summary ---
Author Organization Healthcare Address [address] [place] [address] Care Team Providers Care Leather Softener Name Role Phone Edi Chase MD Primary Care Provider Sam Sanchez MD Unavailable [phone] Cayetano Cannon MD Unavailable [phone] Encounter Details Date Type Department Care Team (Late st Contact Info) Description 12/14/2023 Orders Only External Location [address] [place] [address] Cedric Hinton MD [address] [place] [address] [place] [id number] Social History Tobacco Use Types Packs/Day Years [...] Consult [facility] [address] [place] [address] Cuong Catherine MD [address] [place] [address] 09/28/2024 12:40 PM EDT Office Visit [facility] [address] [place] [phone] Florentin Tillman MD [address] [place] [address] documented as of this encounter Procedures Procedure Name Priority Date/Time Associated Diagnosis Comments CT OUTSIDE IMAGES 12/14/2023 12:00 PM EDT documented in this encounter Results * CT OUTSIDE IMAGES (12/14/2023 12:00 PM EDT) Anatomical Region Laterality Modality Computed Tomogra phy 12/14/2023 12:0 0 PM EDT Cedric Hinton MD 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
== END 2024-08-17 23:59 | disposition home or self-care (01) ==
LOC: RAD 10:40
PROVIDERS: PCP Family Medicine; Visit Provider Internal Medicine Medical Oncology
DX: C34.90 Malignant neoplasm of unspecified part of unspecified bronchus or lung (principal); R59.0 Localized enlarged lymph nodes; R52 Pain, unspecified
CPT/HCPCS: 71046; 71100; 73060

== ENCOUNTER → 2024-09-05 19:32 | Outpatient (CLI) | payer MEDICARE, MEDICAID, SELFPAY ==
--- OUTSIDE RECORDS SUMMARY | 2006-01-18 07:04 | XMS_ITS | Continuity of Care Document ---
Author Organization [facility] o Address [address] [place] [address] Phone Care Team Providers Care [employer] Team Member Name Role Phone Bruno Rogel MD Unavailable Unavailable Procedures Procedure Date Emg 1 Ext Nrv conductn motor, ea nrv w/o Fwav Nerve conductn motor ea nrv sensory Advance Directives Directive Yes / No Effective Date File Name No Information Encounters Encounter Description Practice Location Reason(s) For Visit Diagnoses Date Provider Providers Copied on Encounter [facility] [place], [address] [place] [address], [address], [place] tel:[phone] [facility] No Information 7200 6 Juan F Carr. [address] [place], [place], [id number] , [place]. tel:[phone] Family History Family Member Type Diagnosis Age At Onset No Information Payers Payer name Insurance type Covered green party ID Authoriza tion(s) Medicare [employer] MB [id number] Social History Type Description Quantity Date Captured [...]
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
--- OUTSIDE RECORDS SUMMARY | 2024-08-27 13:00 | XMS_ITS | Encounter Summary ---
Author Organization [facility] Address [address] [place] [address] Care Team Providers Care Funeral Workers Name Role Phone Edi Chase MD Primary Care Provider [phone] Sam Sanchez MD Unavailable [phone] Cayetano Cannon MD Unavailable [phone] Reason for Referral * Other Medical (Routine) - Pending Review Specialty Diagnoses / Procedures Referred By José campbell Referred To Contact Neurology Diagnoses Dizziness on standing Procedures EEG Jyoti Tyler MD [address] [facility] [address] [place] [address] Phone: tel: fax: Referral ID Status Reason Start Date Expiration Date Visits Requested Visits Authorized [id number] Pending Review Specialty Services Required 08/27/2024 02/26/2026 1 1 Reason for Visit * Consultation (Routine) - Closed Specialty Diagnoses / Procedures Referred By José campbell Referred To Contact Neurology Diagnoses Syncope and collapse Malignant neoplasm of unspecified part of unspecified bronchus or lung (CMS/HCC) Miriam Baugh, DIGITAL ASSET MANAGER [address] [place] [address] Phone: tel: fax: Referral ID Status Reason Start Date Expiration Date V isits Requested Visits Authorized [id number] Closed Specialty Services Required 01/24/2024 07/25/2025 1 1 Encounter Details Date Type Department Care Team ([facility] st Contact Info) Description 08/27/2024 1:00 PM EDT Consult [place] [facility] [address] [place] [address] Cuong Catherine MD [address] [place] [address] Dizziness on standing (Primary Dx); Nonintractable episodic [...] answer 12/26/2023 How often do you attend [facility] or caodaism services? Patient unable to answer 12/26/2023 Do you belong to any clubs o r organizations such as yazdanism groups, unions, fraternal or athletic groups, or [...] Recorded Patient Health Questionnaire-2 Score 1 08/27/2024 [facility] of Occupat ional [facility] - Occupational Stress Questionnaire Answer [...] for lung cancer who presents to the [facility]rology Clinic as a new patient [...] Reflexes: 2+ throughout Coordination: no ataxia with gnxukx-yq-edbr testing Proprioception: intact in upper extremities bilaterally [...] orthostatic hypotension. He should follow with his industrial maintenance manager to obtain orthostatic vital signs and consider [...] 3 months Counseling Documentation: The patient and crossword puzzle maker was counseled regarding impressions. Education provided was verbal counseling. Additional time was spent in care coordination including medical record review. The total time of encounter was 100 minutes. . Cuong Catherine MD, PGY-2, Neurology Secure Chat/Pager: [phone] 08/27/2024 5:26 PM Dictation software disclaimer: Parts [...] After use, clean tip and replace cap. Qnkegnkkooc-Efxsdfhfu-Qsaxtd (Trelegy Ellipta) 100-62.5-25 MCG/ACT aerosol powder Inhale 1 puff 1 (one) time each day. gabapentin (Neurontin) 100 MG capsule Take 1 capsule by mouth 2 times a day. hydroCHLOROthiazide (HYDRODiuril) 25 MG tablet Take 1 tablet by mouth daily. HYDROcodone-acetaminophen ([place]) 5-325 MG tablet Take 1 tablet (5 [...] We discussed patient seeing eitherhis PCP or industrial maintenance manager to test orthostatic vitals and adjust medications [...] AM EDT Appointment [facility] Neurophysiology [address] [facility] [address] [place] [address] 10/26/2024 1:20 PM EDT Office Visit [facility] [address] [place] [address] Florentin Tillman MD [address] [place] [address] Scheduled Orders Name Type Priority Associated Diagnoses [...] documented as of this encounter Care Teams Funeral Workers Relationship Specialty Start Date End Date Edi Chase MD [address] [place] [address] PCP - General 03/14/20 Sam Sanchez MD [address] [place] [address] Consulting Physician Pulmonary Disease 08/11/22 Cayetano Cannon MD [address] [place] [address] Referring Physician 08/11/22 documented as of this encounter
--- OUTSIDE RECORDS SUMMARY | 2024-09-05 19:37 | XMS_ITS | Clinical Summary ---
Author Organization [employer] [facility] Address [address] [place] [address] Phone Care Team Providers Care Furnace Installer Helper Name Role Phone Gala Osborne APRN Primary Care Physician [ ] Conditions or Problems Problem Name Problem Code Onset Date Status Entry Date Provider Comment Standard Description Annotate HEMATURIA NOS R31.9 (ICD-10-CM ) 05/11 Active 05/11 Gala Furnclayton AVILA Hematuria, unspecified ABNORMAL ELECTROCARDIO GRAM 124664270 (SNOMED CT) 05/11 Active 05/11 Gala Furnish KEYMODULE ASSEMBLY MACHINE TENDER Electrocardiogram abnormal BLINDNESS, BILATERAL 742767218 (SNOMED CT) 05/11 Active 05/11 Gala Furnclayton KEYMODULE ASSEMBLY MACHINE TENDER Blindness - both eyes HYPERTENSION 79303377 (SNOMED CT) 05/11 Active 05/11 Gala Furnish KEYMODULE ASSEMBLY MACHINE TENDER Hypertensive disorder FLANK PAIN, RIGHT 050323339 (SNOMED CT) 05/11 Active 05/11 Gala Furnish KEYMODULE ASSEMBLY MACHINE TENDER Flank pain CHEST PAIN NOS 04793716 (SNOMED CT) 05/11 Active 05/11 Gala Furnish KEYMODULE ASSEMBLY MACHINE TENDER Chest pain Medications Medication Instructions Start Date Stop Date Generic Name NDC Provider HYDROCODONE-ACET AMINOPHEN 5-325 MG TABS 1-2 po q 6 hours prn pain HYDROCODONE-ACET AMINOPHEN 10985375904 Gala Furnclayton KEYMODULE ASSEMBLY MACHINE TENDER CIPROFLOXACIN HCL 500 MG TABS Take 1 tablet by mouth twice a day CIPROFLOXACIN HCL 77244546399 Gala Furnclayton KEYMODULE ASSEMBLY MACHINE TENDER Medications Administered No information available. Allergies, Adverse [...] Procedures Code Procedure Name Date Entry Date CPT-98485 ECG; interpretation and report only (Medicare use [id number] + [id number]) CPT-72381 Urine Dip Auto CPT-38160 CMP (Outside Lab) Pharm Stress Test Pharmacologic Stress Test CPT-69442 Urine Culture (Outside Lab) Vital Signs Date [...]
--- OUTSIDE RECORDS SUMMARY | 2024-09-05 19:38 | XMS_ITS | Encounter Summary ---
Author Organization [facility] Address [address] [place] [address] Care Team Providers Care Automobile Appraiser Name Role Phone Edi Chase MD Primary Care Provider [phone] Sam Sanchez MD Unavailable Cayetano Cannon MD Unavailable [phone] Encounter Details Date Type Department Care Team (Late st Contact Info) Description 07/08/2022 Orders Only External Location [address] [place] [address] Armani Lopez [place] [address] [place] [address] Social History Tobacco Use Types [...] AM EDT Appointment [facility] Neurophysiology [address] [facility] [address] [place] [address] 10/26/2024 1:20 PM EDT Office Visit [address], [place] [address] Florentin Tillman MD [address] [place] [address] documented as of this encounter Procedures Procedure [...] documented as of this encounter Care Teams Automobile Appraiser Relationship Specialty Start Date End Date Edi Chase MD [address] [place] [address] PCP - General 03/14/20 Sam Sanchez MD [address] [place] [address] Consulting Physician Pulmonary Disease 08/11/22 Cayetano Cannon MD [address] [place] [address] [place] [address] Referring Physician 08/11/22 documented as of this encounter
--- OUTSIDE RECORDS SUMMARY | 2024-09-05 19:38 | XMS_ITS | Data Portability ---
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 Plan of Treatment Reminders Order Date Submit Date Provider Last Modified By Organization Details Last Modified Time Details Appointments FOLLOW UP 30 2024 10:00A M JUSTO VU MD Not available Not available Not available Lab culture, urine + sensitivi ty 2023 024 [facility] (Lab Registration) , [address] [place] [address] , [place], [address], 05/06/2023 07:44:10 urinalysi s, dipstick [address] [facility] [place], [address] [place] [address], [address], 05/02/2023 09:19:22 Referral None recorded. Procedures bladder scan (PROC) [address] [facility] [place], [address] [place] [address], [address], 05/02/2023 09:19:22 Surgeries None recorded. Imaging None recorded. Medication Orders cefdinir 300 mg capsule 2023 024 [place] [address] [facility] [place], [facility] Ebonie Wilde, [place], [address], 04/29/2023 16:44:27 cefdinir 300 mg capsule 2023 [address] [facility] [place] [address] [place] , [place], [address], 03/23/2023 12:36:21 finasteri de 5 mg tablet 2022 023 [facility] [place] [address], [facility] [address] , [place], [address], 03/23/2023 12:36:44 Patient TargetsNo targets recorded. Patient InstructionsNo instructions recorded. Reason for Referral None Reported. Results Created Date Observation Date Name Description Value Unit Range Abnormal Flag Note LastModifiedBy Organization Detail LastModifiedTime 02/16/2002/15/2023 BASIC METAB OLIC PANEL sodium 133 mmol/ L 137-14 7 low Not Available [facility] (Pre-Op Clinic) [address] [place] [address] [place], [address], 02/15/2023 11:26:59 02/16/20 23 02/15/2023 BASIC METAB OLIC PANEL potassium 5.1 mmol/ L 3.5-5. 1 Not Available [facility] (Pre-Op Clinic) [address] [place] [address] [place], [address], 02/15/2023 11:26:59 02/16/20 23 02/15/2023 BASIC METAB OLIC PANEL chloride 93 mmol/ L 98-110 low Not Available [facility] (Pre-Op Clinic) [address] [place] [address] [place], [address], 02/15/2023 11:26:59 02/16/20 23 02/15/2023 BASIC METAB OLIC PANEL carbon dioxide 28 mmol/ L 21-30 Not Available [facility] (Pre-Op Clinic) [address] [place] [address] [place], [address], 02/15/2023 11:26:59 02/16/20 23 02/15/2023 BASIC METAB OLIC PANEL anion gap 12 mmol/ L 6-14 Not Available [facility] (Pre-Op Clinic) [address] [place] [address] [place], [address], 02/15/2023 11:26:59 02/16/20 23 02/15/2023 BASIC METAB OLIC PANEL glucose 84 mg/dL 70-115 Not Available [facility] (Pre-Op Clinic) [address] [facility] [place], [address], 02/15/2023 11:26:59 02/16/20 23 02/15/2023 BASIC METAB OLIC PANEL BUN 39 mg/dL 9-20 high Not Available [facility] (Pre-Op Clinic) [address] [place] [address] [place], [address], 02/15/2023 11:26:59 02/16/20 23 02/15/2023 BASIC METAB OLIC PANEL creatinine 2.1 mg/dL 0.5-1. 5 high Not Available [facility] (Pre-Op Clinic) [address] [place] [address] [place], [address], 02/15/2023 11:26:59 02/16/20 23 02/15/2023 BASIC METAB OLIC PANEL BUN/creatini ne ratio 19 ratio 10-20 Not Available [facility] (Pre-Op Clinic) [address] [place] [address] [place], [address], 02/15/2023 11:26:59 02/16/20 23 02/15/2023 BASIC METAB OLIC PANEL glom filtration rate TNP mL/mi n >60- GFR has only been valid ated for patie nts 18-70 years of age. Not Available [facility] (Pre-Op Clinic) [address] [place] [address] [place], [address], 02/15/2023 11:26:59 02/16/20 23 02/15/2023 BASIC METAB OLIC PANEL osmolality (calculated) 286 mosmo l/kg 275-30 1 OSMOL ALITY IS A CALCU LATIO N UTILI ZING THE SERUM /PLAS MA SODIU M, GLUCO SE AND UREA NITRO GEN (BUN) LEVEL S. FOR THE MOST ACCUR ATE RESUL T A MEASU RED SERUM OSMOL ALITY IS CLAUDIO FUNG. Not Available [facility] (Pre-Op Clinic) [address] [place] [address] [place], [address], 02/15/2023 11:26:59 02/16/20 23 02/15/2023 BASIC METAB OLIC PANEL calcium 9.4 mg/dL 8.5-10 .8 Not Available [facility] (Pre-Op Clinic) [address] [place] [address] [place], [address], 02/15/2023 11:26:59 02/16/20 23 02/15/2023 BASIC METAB OLIC PANEL note Unles s other hernandez noted testi ng perfo rmed at: [facility] [address] [place] [address] Arnaud mays MD Not Available [facility] (Pre-Op Clinic) [address] [place] [address] [place], [address], 02/15/2023 11:26:59 02/19/20 23 02/18/2023 RFS-P ATHOL OGY SPECI MEN REQUE ST pathreq Patho logy [address] [place] [address] Phone or [phone] Fax Joseph almonte Jr., M.D., Medic al Direc tor [facility] [address] : [place] [address] Phone Numbe r: [phone] Arnaud mays M.D. PATHO LOGY REPOR T Patie nt Name: AUDRA MEJIA Date of : 1950 Age/S ex: 72/M Accou nt Numbe r: [id number] Medic al Recor d Numbe r: [id number] Order ing MD: RICCARDO HARTLEY AM Date Colle cted : 2022 Date Recei balta : 2022 Date Repor harsh : 02/23 Exam: Biops y Acces heath# : [id number] Labor atory #: [id number] Copie s To: Techn ician : Clini yobani Histo ry Benig n prost atic hyper plasi a, urine reten tion Previ ous Patie nt Histo ry and Files ROBERTO MORAN ([birth year] 9 M) i??SS N: [id number] ?? 1. S23-0 31823 , DateC ollec harsh: 06/22 A: SPLEN IC FLEXU RE BIOPS Y Diagn osis: Colon ic type mucos a with no signi fican t histo patho logic abnor malit ies ROGELIO 2. S22-0 61820 , DateC ollec harsh: 12/15 A: COLON , POLYP , 12CM Diagn osis: Hyper plast ic polyp . B: COLON , POLYP , 7CM Diagn osis: Hyper plast ic polyp . C: COLON , POLYP , 5CM Diagn osis: Hyper plast ic polyp . 3. S21-0 08469 , DateC ollec harsh: 09/29 A: RIGHT COLON , [...] tch repai r prote in immun ohist ochem ical stain s. The diagn osis remai [...] nent infor matio n, inclu ding but poten leslie y not limit ed to this patho logy repor t. Prima ry Tumor (pT): pT3 Regio nal Lymph Nodes (pN): pN1a 4. S21-0 66080 , DateC ollec harsh: 09/25 A: CECUM BIOPS Y, [...] or high- grade dyspl albino 5. S21-0 26714 , DateC ollec harsh: 07/10 A: ANTRU M, BIOPS Y Diagn osis: React leonor gastr opath y and mild chron ic gastr itis with intes tinal Legal ly authe ntica harsh by ARNAUD RENE MD 02-23 15:53 :00 metap lasia Negat leonor for dyspl albino FLP/p ah 6. S19-0 14919 , Date ollec harsh: 09/07 A: SKIN, RIGHT SIDE [...] nce of danita ochoa is seen. Profe sunday al inter preta tion rende red by Arnaud mays Jr., MCindyD. at [facility], [address] [place] [address] . Final Diagn osis BENIG N PROST ATIC HYPER PLASI A EJT/S M Stain *Recu [place] ;[place] [address] Legal ly authe ntica harsh by ARNAUD RENE MD 02-23 15:53 :00 Not Available [facility] (Pre-Op [facility]) [address] [place] [address] [place], [address], 02/23/2023 16:17:04 02/20/20 23 02/19/2023 CBC W/ AUTO DIFF WBC 7.57 K/uL 4.5-11 .5 Not Available [facility] (Pre-Op Clinic) [address] [place] [address] [place], [address], 02/19/2023 06:08:08 02/20/2002/19/2023 CBC W/ AUTO DIFF RBC 3.38 M/uL 4.0-5. 4 low Not Available [facility] (Pre-Op Clinic) [address] [place] [address] [place], [address], 02/19/2023 06:08:08 02/20/2002/19/2023 CBC W/ AUTO DIFF HGB 9.5 g/dL 14.0-1 8.0 low Not Available [facility] (Pre-Op [facility]) [address] [place] [address] [place], [address], 02/19/2023 06:08:08 02/20/20 23 02/19/2023 CBC W/ AUTO DIFF HCT 28.8 % 40-54 low Not Available [facility] (Pre-Op Clinic) [address] [place] [address] [place], [address], 02/19/2023 06:08:08 02/20/2005 0302/19/2023 CBC W/ AUTO DIFF MCV 85.2 fL 80.0-1 00.0 Not Available [facility] (Pre-Op Clinic) [address] [place] [address] [place], [address], 02/19/2023 06:08:08 02/20/20 23 02/19/2023 CBC W/ AUTO DIFF MCH 28.1 pg 26.0-3 2.0 Not Available [facility] (Pre-Op Clinic) [address] [place] [address] [place], [address], 02/19/2023 06:08:08 02/20/2002/19/2023 CBC W/ AUTO DIFF MCHC 33.0 g/dL 32.0-3 6.0 Not Available [facility] (Pre-Op Clinic) [address] [place] [address] [place], [address], 02/19/2023 06:08:08 02/20/2002/19/2023 CBC W/ AUTO DIFF RDW 14.7 % 11.5-1 4.5 high Not Available [facility] (Pre-Op Clinic) [address] [place] [address] [place], [address], 02/19/2023 06:08:08 02/20/2002/19/2023 CBC W/ AUTO DIFF platelet count 244 K/uL 142-42 4 Not Available [facility] (Pre-Op Clinic) [address] [place] [address] [place], [address], 02/19/2023 06:08:08 02/20/2002/19/2023 CBC W/ AUTO DIFF MPV 9.1 fL 6.8-10 .2 Not Available [facility] (Pre-Op Clinic) [address] [place] [address] [place], [address], 02/19/2023 06:08:08 02/20/2002/19/2023 CBC W/ AUTO DIFF neutrophil % 81.2 % 50-70 high Not Available [facility] (Pre-Op Clinic) [address] [place] [address] [place], [address], 02/19/2023 06:08:08 02/20/20 23 02/19/2023 CBC W/ AUTO DIFF lymphocyte % 5.3 % 18.0-4 2.0 low Not Available [facility] (Pre-Op [facility]) [address] [place] [address] [place], [address], 02/19/2023 06:08:08 02/20/2002/19/2023 CBC W/ AUTO DIFF monocyte % 10.2 % 2.0-11 .0 Not Available [facility] (Pre-Op [facility]) [address] [place] [address] [place], [address], 02/19/2023 06:08:08 02/20/2002/19/2023 CBC W/ AUTO DIFF eosinophil % 2.6 % 1.0-3. 0 Not Available [facility] (Pre-Op Clinic) [address] [place] [address] [place], [address], 02/19/2023 06:08:08 02/20/2002/19/2023 CBC W/ AUTO DIFF basophil % 0.4 % 0.0-2. 0 Not Available [facility] (Pre-Op [facility]) [address] [place] [address] [place], [address], 02/19/2023 06:08:08 02/20/2002/19/2023 CBC W/ AUTO DIFF immature granulocytes % 0.3 % 0.0-0. 8 Not Available [facility] (Pre-Op Clinic) [address] [place] [address] [place], [address], 02/19/2023 06:08:08 02/20/2002/19/2023 CBC W/ AUTO DIFF nucleated red blood cells % 0.0 % Not Available [facility] (Pre-Op Clinic) [address] [place] [address] [place], [address], 02/19/2023 06:08:08 12/09/20 23 02/19/2023 CBC W/ AUTO DIFF neutrophil # 6.15 K/uL Not Available [facility] (Pre-Op [facility]) [address] [place] [address] [place], [address], 02/19/2023 06:08:08 02/20/20 23 02/19/2023 CBC W/ AUTO DIFF lymphocyte # 0.40 K/uL Not Available [facility] (Pre-Op [facility]) [address] [place] [address] [place], [address], 02/19/2023 06:08:08 02/20/20 23 02/19/2023 CBC W/ AUTO DIFF monocyte # 0.77 K/uL Not Available [facility] (Pre-Op Clinic) [address] [place] [address] [place], [address], 02/19/2023 06:08:08 02/20/20 23 02/19/2023 CBC W/ AUTO DIFF eosinophil # 0.20 K/uL Not Available [facility] (Pre-Op Clinic) [address] [place] [address] [place], [address], 02/19/2023 06:08:08 02/20/20 23 02/19/2023 CBC W/ AUTO DIFF basophil # 0.03 K/uL Not Available [facility] (Pre-Op Clinic) [address] [place] [address] [place], [address], 02/19/2023 06:08:08 02/20/20 23 02/19/2023 CBC W/ AUTO DIFF immature gramulocytes # 0.02 K/uL Not Available [facility] (Pre-Op Clinic) [address] [place] [address] [place], [address], 02/19/2023 06:08:08 02/20/20 23 02/19/2023 CBC W/ AUTO DIFF nucleated red blood cells # 0.00 k/uL Not Available [facility] (Pre-Op Clinic) [address] [place] [address] [place], [address], 02/19/2023 06:08:08 02/20/20 23 02/19/2023 CBC W/ AUTO DIFF manual differential NO Not Available [facility] (Pre-Op Clinic) [address] [place] [address] [place], [address], 02/19/2023 06:08:08 02/20/20 23 02/19/2023 CBC W/ AUTO DIFF note Unles s other hernandez noted testi ng perfo rmed at: [facility] [address] [place] [address] Arnaud mays MD Not Available [facility] (Pre-Op Clinic) [address] [place] [address] [place], [address], 02/19/2023 06:08:08 02/20/20 23 02/19/2023 BASIC METAB OLIC PANEL sodium 139 mmol/ L 137-14 7 Not Available [facility] (Pre-Op Clinic) [address] [place] [address] [place], [address], 02/19/2023 06:44:15 02/20/20 23 02/19/2023 BASIC METAB OLIC PANEL potassium 4.3 mmol/ L 3.5-5. 1 Not Available [facility] (Pre-Op Clinic) [address] [place] [address] [place], [address], 02/19/2023 06:44:15 02/20/20 23 02/19/2023 BASIC METAB OLIC PANEL chloride 108 mmol/ L 98-110 Not Available [facility] (Pre-Op Clinic) [address] [place] [address] [place], [address], 02/19/2023 06:44:15 02/20/20 23 02/19/2023 BASIC METAB OLIC PANEL carbon dioxide 26 mmol/ L 21-30 Not Available [facility] (Pre-Op Clinic) [address] [place] [address] [place], [address], 02/19/2023 06:44:15 02/20/20 23 02/19/2023 BASIC METAB OLIC PANEL anion gap 5 mmol/ L 6-14 low Not Available [facility] (Pre-Op [facility]) [address] [place] [address] [place], [address], 02/19/2023 06:44:15 02/20/20 23 02/19/2023 BASIC METAB OLIC PANEL glucose 95 mg/dL 70-115 Not Available [facility] (Pre-Op Clinic) [address] [place] [address] [place], [address], 02/19/2023 06:44:15 02/20/20 23 02/19/2023 BASIC METAB OLIC PANEL BUN 32 mg/dL 9-20 high Not Available [facility] (Pre-Op [facility]) [address] [place] [address] [place], [address], 02/19/2023 06:44:15 02/20/20 23 02/19/2023 BASIC METAB OLIC PANEL creatinine 1.7 mg/dL 0.5-1. 5 high Not Available [facility] (Pre-Op [facility]) [address] [place] [address] [place], [address], 02/19/2023 06:44:15 02/20/20 23 02/19/2023 BASIC METAB OLIC PANEL BUN/creatini ne ratio 19 ratio 10-20 Not Available [facility] (Pre-Op Clinic) [address] [place] [address] [place], [address], 02/19/2023 06:44:15 02/20/20 23 02/19/2023 BASIC METAB OLIC PANEL glom filtration rate TNP mL/mi n >60- GFR has only been valid ated for patie nts 18-70 years of age. Not Available [facility] (Pre-Op Clinic) [address] [place] [address] [place], [address], 02/19/2023 06:44:15 02/20/20 23 02/19/2023 BASIC METAB OLIC PANEL osmolality (calculated) 296 mosmo l/kg 275-30 1 OSMOL ALITY IS A CALCU LATIO N UTILI ZING THE SERUM /PLAS MA SODIU M, GLUCO SE AND UREA NITRO GEN (BUN) LEVEL S. FOR THE MOST ACCUR ATE RESUL T A MEASU RED SERUM OSMOL ALITY IS CLAUDIO FUNG. Not Available [facility] (Pre-Op Clinic) [address] [place] [address] [place], [address], 02/19/2023 06:44:15 02/20/20 23 02/19/2023 BASIC METAB OLIC PANEL calcium 8.5 mg/dL 8.5-10 .8 Not Available [facility] (Pre[facility]Op [facility]) [address] [place] [address] [place], [address], 02/19/2023 06:44:15 02/20/20 23 02/19/2023 BASIC METAB OLIC PANEL note Unles s other hernandez noted testi ng perfo rmed at: [facility] [address] [place] [address] Arnaud mays MD Not Available [facility] (Pre[facility]Op Clinic) [address] [place] [address] [place], [address], 02/19/2023 06:44:15 04/29/19 24 04/29/2023 CULTU RE URINE results [facility] 04-30 600 >100, 000 COL/M L Gram Negat leonor Rods Not Available [facility] (Lab Registration) [address] [place] [address] [place], [address], 04/30/2023 06:02:04 04/29/19 24 04/29/2023 CULTU RE URINE note Unles s other hernandez noted testi ng perfo rmed at: [facility] [address] [facility] [place] [address] [phone] Arnaud mays MD CLIA: [id number] Not Available [facility] (Lab Registration) [address] [place] [address] [place], [address], 04/30/2023 06:02:04 04/29/19 24 04/29/2023 CULTU RE URINE culccur ===== ===== ===== ===== ===== ===== ===== ===== ===== ===== ===== ===== ===== ===== ===== ===== ===== ===== ===== ===== ===== ===== ===== ===== Speci men NO.: [id number] Exam Statu s: Final Proce dure: [...] L Gram Negat leonor Rods Not Available [facility] (Lab Registration) [address] , [place], [address], 05/01/2023 07:47:10 04/29/19 24 04/29/2023 CULTU RE URINE note Unles s other hernandez noted testi ng perfo rmed at: [facility] [address] [place] [address] [phone] Arnaud mays MD CLIA: [id number] Not Available [facility] (Lab Registration) [address] , [place], [address], 05/01/2023 07:47:10 04/29/19 24 04/29/2023 bladd er scan (PROC ) Calculated Residual Urine: 699 ML Not Available [address], [address], 04/29/2023 11:45:28 04/29/19 24 04/29/2023 urina lysis , dipst ick Leukocytes (reference range) large Not Available [address], [address], 04/29/2023 11:44:38 04/29/19 24 04/29/2023 urina lysis , dipst ick Nitrite (reference range:) positi ve Not Available [address], [address], 04/29/2023 11:44:38 04/29/19 24 04/29/2023 urina lysis , dipst ick Urobilinogen (reference range) 1 Not Available [address], [address], 04/29/2023 11:44:38 04/29/19 24 04/29/2023 urina lysis , dipst ick Protein (reference range) 300 Not Available [address], [address], 04/29/2023 11:44:38 04/29/19 24 04/29/2023 urina lysis , dipst ick pH (reference range 5-8.5) 6.5 Not Available [address], [address], 04/29/2023 11:44:38 04/29/19 24 04/29/2023 urina lysis , dipst ick Blood (reference range:) large Not Available [address], [address], 04/29/2023 11:44:38 04/29/19 24 04/29/2023 urina lysis , dipst ick Specific Gorman (reference range) 1.020 Not Available [address], [address], 04/29/2023 11:44:38 04/29/19 24 04/29/2023 urina lysis , dipst ick Ketone (reference range) trace Not Available [address], [address], 04/29/2023 11:44:38 04/29/19 24 04/29/2023 urina lysis , dipst ick Bilirubin (reference range) small Not Available [address], [address], 04/29/2023 11:44:38 04/29/19 24 04/29/2023 urina lysis , dipst ick Glucose (reference range) negati ve Not Available [address], [address], 04/29/2023 11:44:38 02/22/20 23 02/21/2023 cardi ac clear ance* No observ ation record ed. [facility] [address] [place] [address] [place], [address], 02/24/2023 10:25:26 03/25/19 24 03/25/2023 CT, chest , w/o contr ast [facility] [address] [place] [address] Phone: Fax: Name: ROBERTO TOUSSAINT Exam Date: 024 : 949 Age 72 Gender : M Access ion: [id number] Physic amalia: JUSTO VU Facili ty: [facility] Facili ty HSV: Outpat ient Exam: CT [...] by: TIFFANY REYES Thank [facility] Legall y authen ticate d by POPE TIFFANY Collins 03-25 10:48: 47 CC'ed Logic: Orderi ng Provid er: MIRELLA KEMP Attend ing Provid er: MIRELLA KEMP Referr ing Provid er: MIRELLA KEMP Admitt ing Provid er: MIRELLA KEMP [email or web address] [facility] [address] [place], [address], 04/05/2023 08:15:45 01/16/20 24 11/11/2023 PET-C T, skull base to mid-t high scan No observ ation record ed. [facility] ([facility]) [address] [facility], [place], [address], 01/20/2024 11:35:25 06/02/19 25 06/01/2024 CT, chest , w/o contr ast No observ ation record ed. [address], [place], [address], 06/04/2024 15:30:09 Result Notes Documentation Provider Name and Address Organization Details Recorded Time Ct, Chest, W/o Contrast : [facility] [address] [place] [address] Name: ROBERTO TOUSSAINT Exam Date: 03/25/2023 : 1950 Age 72 Gender: M Physician: JUSTO VU Facility: [facility] Facility HSV: Outpatient Exam: CT CHEST W/O CT SCAN OF THE CHEST WITHOUT CONTRAST COMPARISON: None HISTORY: Lung nodule follow-up. PROCEDURE: Axial images were obtained from the lung apex to the mid abdomen by computed tomography.This study was performed with techniques to keep radiation doses as low as reasonably achievable, (ALARA). FINDINGS: CHEST: There is no axillary adenopathy. There is no hilar or mediastinal adenopathy. Heart size is enlarged in size. There is atherosclerosis. There is no pericardial or pleural effusion. There is evidence of prior granulomatous disease. There is a consolidation within the left upper lobe which may be infectious or inflammatory. There are scattered areas of atelectasis. Limited images of the upper abdomen demonstrate multiple bilateral cystic lesions in the kidneys which is incompletely assessed by lack of contrast. There is a hepatic cyst measuring up to 1.3 cm. IMPRESSION: Consolidation within the left upper lobe may be infectious or inflammatory. Correlate with any prior imaging, continued follow-up is recommended. Films reviewed , interpreted and dictated by Dr. Reyes. Transcribed by Socorro Murdock PA-C. Dictated By: TIFFANY REYES Transcribed By: Tiffany Reyes Transcribed On: 03/25/2023 10:48 AM Electronically signed by: TIFFANY REYES 03/25/2023 Thank you for referring ROBERTO TOUSSAINT to [facility]. 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 Anabella vyas [place] 4 10:52:11 Chronic renal failure 53073292 Active 2022 SHAREE Lopez - [place] [place] 4 10:52:11 Heart failure 15665212 Active 2022 Tefanie Saulo null, [place] 4 10:52:11 Diastolic dysfunction 1416084 Active 2022 Anabella Vernon [place] 4 10:52:11 Anemia 832017901 Active 2022 Anabella Vernon [place] 4 10:52:11 Acute stroke 9269455287391 04 Active 2022 Anabella [place] 4 10:52:11 Disease of liver 958493088 Active 2022 Anabella Vernon [place] 4 10:52:11 Hypercholes terolemia 67677181 Active 2022 Anabella vyas[place] 4 10:52:11 Gastroesoph ageal reflux disease 443367527 Active 2022 Anaeblla Vernon null, [place] 4 10:52:11 Kidney stone 29540882 Active 2022 Anabella Vernon [place] 4 10:52:11 Glaucoma 83800211 Active 2022 Anabella vyas[place] 4 10:52:11 Arthritis 0951174 Active 2022 Anabella Vernon [place] 4 10:52:11 Hypertensiv e disorder 56898081 Active 2022 Anabella [place] 4 10:52:11 Benign prostatic hyperplasia with outflow obstruction 700010369 Active Anabella [place] 4 10:52:11 Problem Notes Documentation Provider Name and Address Organization Details Recorded Time Applied Exercise Physiologist Consult Note : SW met with pt and staff from facility. The SW educated the pt on SW role in oncology. Pt discussed issues from his past cancer dx, and pt was very humble. Pt denied needs and discussed how grateful he was for the care that his facility provides for him. Pt denied needs at this time but SW provided contact information to staff to give to the pt coordinator at his facility should a need arise. SW will offer supports ongoing. Danielle Ba lilliamSHAREE [facility] & [place] 04/04/2024 07:14:40 Procedures Surgical History Date Name Laterality Status Provider Name and Address Organization Details Recorded Time 06/10/19 23 Cystoscopy-Male completed Venkatesh Hartley Jr, MD [address] [place] [address], [address], [place], [address], [place] [facility] & [place] 06/09/2022 16:55:32 ureteroscopy completed Anabella TOLLIVER [facility] & [place] 06/09/2022 13:23:50 Knee arthroscopy/surg frederick completed Anabella Vernon [place] [facility] & [place] 06/09/2022 13:23:58 Imaging Results None recorded. Procedure Notes None recorded. Medical Equipment None Reported. Allergies Allergen ID Allergen Name Allergen Category Reaction Reaction Severity Criticality Documentation Date Start Date Code Code System Note Provider Name and Address Organization Details Recorded Time 368258 No known allergy (situatio n) Not available Not available Not available Not available 03/23/2023 14985 [id number] SNOMED Anabella vyas SH[place]EE [facility] & [place] 10:51:22 No known drug allergies Medications Name [...] Base) MCG/ACT d ose:0.0 route:IN HALED starla quency:OK N active Not Available Not Available No [...] [degF] Anabella TOLLIVER - LPNT - [facility] & [place] 03/23/2023 10:51:14 Date Recorded Body temperature Body height Body mass index (BMI) Body weight Provider Name and Address Organization Details Last Updated DateTime 04/29/2023 97.9 [degF] 182.88 cm 33.2 kg/m2 298827.13 g Anabella HUNTER [facility] & [place] 04/29/2023 10:18:52 Date Recorded Body height Body mass index (BMI) Body weight Body temperature Provider Name and Address Organization Details Last Updated DateTime 05/27/2023 182.88 cm 28.5 kg/m2 29561.4 g 97.3 [degF] Salud Dixon [place] - LPNT [facility] & [place] 05/27/2023 11:23:11 Date Recorded Body height Body mass index (BMI) Body weight Body temperature Provider Name and Address Organization Details Last Updated DateTime 11/23/2023 182.88 cm 28.5 kg/m2 64116.4 g 97.7 [degF] Anabella Vernon [place] - LPNT [facility] & [place] 11/23/2023 09:14:40 Date Recorded Body temperature Provider Name a nd Address Organization Details Last Updated DateTime 01/28/2023 97.9 [degF] Anabella Vernon [place] - LPNT - [facility] & [place] 01/28/2023 13:10:38 Social History None recorded. Functional Status Question Answer Note LastModified by Organization D etails LastModified Time What is your level of alcohol consumption? None [email or web address] Information not available 06/02/2022 Mental Status None recorded. Family History Relationship Description Onset Age of this Age Resolved Age Notes LastModified by Organization Details LastModified Time Mother Family history unknown dec [email or web address] Not available 2022 13:23:21 Sister Family history unknown x3 dec [email or web address] Not available 2022 13:23:21 Brother Family history unknown Not available 2022 13:23:21 Father Malignant neoplastic disease dec [email or web address] Not available 2022 13:23:30 Medical History No medical history recorded. Past Encounters Encounter ID Performer Location Encounter Start Date Encounter Closed Date Diagnosis/Indication Diagnosis SNOMED-CT Code Diagnosis ICD10 Code Diagnosis Note [id number] Venkatesh Hartley Jr, MD [facility] [address] [address] 06/09/2022 13:36:19 06/09/2022 15:11:25 Retention of urine 009711908 R33.9 71-year-ol d male with multiple medical [...] cardiologi st who is Dr. Dodge in [place]. If he is deemed a reasonable candidate we will set him up for TURP. [id number] Venkatesh Hartley Jr, MD [facility] [address] [address] 01/28/2023 12:36:30 01/28/2023 13:36:01 Incomplete emptying of urinary bladder due to benign prostatic hypertrophy [id number] 58481 N40.1 patient with urinary retention. His retention has been managed with a Jason catheter now for several months. States it is being changed on a monthly basis. Cardiac clearance was recently given per Dr. Nain bower as office at [facility]. Patient is not a great surgical candidate. He is on Xarelto. His cardiologi st has deemed him a reasonable surgical candidate. We will get a preop clearance from anesthesio logist at [facility]. We will stop his blood thinners prior to his TURP. We will start him on finasterid e today to help decrease any possible prostate bleeding. [id number] Venkatesh Hartley Jr, MD [facility] [address] [address] 03/23/2023 10:46:37 03/23/2023 11:42:10 Incomplete emptying of urinary bladder due to benign prostatic hypertrophy [id number] 68055 N40.1 patient with history of urinary retention secondary to prostate enlargemen t. He underwent a TURP at [facility] on February 18. He returns today [...] for the prolonged catheteriz ations and removal. [id number] Venkatesh Hartley Jr, MD [facility] [address] [address] 04/29/2023 10:18:10 04/29/2023 11:38:41 Recurrent urinary tract infection 965113302 N39.0 Patient with urinary symptoms of frequency, urgency and hematuria. His urine appears infected. We will culture the urine and patient placed on a course of cefdinir today. He will follow up in 1 month. Incomplete emptying of urinary bladder due to benign prostatic hypertrophy [id number] 94661 N40.1 patient with history of urinary retention secondary to prostate enlargemen t. He underwent a TURP at [facility] on February 18. patient with complaints of frequency, urgency and gross hematuria. He has evidence of a urinary tract infection which may be contributi ng to his symptoms. We also discussed that hematuria, urgency and frequency could be normal sequela of his TURP. Patient also takes Xarelto for other medical issues. [id number] Venkatesh Hartley Jr, MD [facility] [address] [address] 05/27/2023 11:21:35 05/27/2023 12:30:45 Incomplete emptying of urinary bladder due to benign prostatic hypertrophy [id number] 55407 N40.1 patient with history of urinary retention secondary to prostate enlargemen t. He underwent a TURP at [facility] on February 18. He states he is voiding better and he is now ambulatory but PVR still elevated at 671 cc. Recurrent urinary tract infection [id number] N39.0 Pt with uti's due to incomplete emptying. To increase fluids and observe timed voiding. [id number] Venkatesh Hartley Jr, MD [facility] [address] [address] 11/23/2023 09:08:44 11/23/2023 09:50:37 Incomplete emptying of urinary bladder due to benign prostatic hypertrophy [id number] 44776 N40.1 patient with history of urinary retention secondary to prostate enlargemen t. He underwent a TURP at [facility] on February 18. He states he is voiding better and he is now ambulatory but PVR still elevated due to bladder decompensa tion. Recurrent urinary tract infection [id number] N39.0 Pt with uti's due to incomplete [...] Hawkins Member ID Guarantor Name 07/06/2024 2 MEDICAID-[facility] [email or web address] CHOICES - FFS/TRADITIO NAL Roberto Toussaint [id number] Roberto Toussaint 07/06/2024 1 [place] Roberto Toussaint [id number] Roberto Toussaint 11/23/2023 2 MEDICAID-[facility] HEALTH CHOICES - FFS/TRADITIO NAL Roberto Toussaint [id number] Roberto Toussaint Notes Date Note Type Note [...] recommended. Months later he is seen his brick grader and has been deemed a acceptable risk for the TURP. He continues on Xarelto. He is legally blind. He lives in the long term. Venkatesh Hartley Jr, MD [address] [place] [address], [address], [place], [address], [facility] - [place] & [place] 01/28/2023 14:59:58 03/23/2023 text/html patient is a 72-year-old black male with history of urinary retention. 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 There was a large median lobe that was resected. Patient's prostate was very large and resected in stages. Pathology from the prostatic chips showed no evidence of cancer. Patient returns today for a voiding trial but should have been scheduled for a voiding trial 2-3 weeks ago. He is had the same catheter in since discharge. Venkatesh Hartley Jr, MD [address] [facility], [address], [place], [address], [facility] 03/23/2023 12:37:30 04/29/2023 text/html Patient is a 72-year-old black male with a history of urinary retention. He underwent a TURP on February 18, 2023 at [facility]. Patient had a very large median [...] of 699 cc. Venkatesh Hartley Jr, MD [address] [facility] [address], [address], [place], [address], [facility] & [place] 04/29/2023 16:45:15 05/27/2023 text/html Pt with h/o [...] the Cefdinir. Venkatesh Hartley Jr, MD [address] [facility] [address], [address], [place], [address], [facility] & [place] 08/21/2023 23:04:36 11/23/2023 text/html Patient is a [...] as a result. Venkatesh Hartley Jr, MD [address] [place] [address], [address], [place], [address], [facility] - [place] & [place] 11/23/2023 12:51:08
--- OUTSIDE RECORDS SUMMARY | 2024-09-05 19:38 | XMS_ITS | Encounter Summary ---
Author Organization [facility] Address [address] [id number] Care Team Providers Care Senior Media Director Name Role Phone Edi Chase MD Primary Care Provider [phone] Sam Sanchez MD Unavailable [phone] Cayetano Cannon MD Unavailable [phone] Encounter Details Date Type Department Care Team (Late st Contact Info) Description 08/22/2024 [facility]phone [facility] [address], [address] [place] [address] Cuong Catherine MD [address] [id number] Social History Tobacco Use Types Packs/Day Years Used Date Smoking Tobacco: Former Cigarettes 2 47 1 [id number] Smokeless Tobacco: Never Alcohol Use Standard Drinks/Week [...] often do you attend chur ch or sikhism services? Patient unable to answer 12/26/2023 Do you belong to any clubs o r organizations such as advent groups, unions, fraternal or athletic groups, or [...] one occasion? Patient unable to answer 12/26/2023 [facility] - Occupational Stress [...] place to sleep or slept in a jail (including now)? Patient unable to answer 12/26/2023 [...] on file documented as of this encounter Miscellaneous Notes * Telephone Encounter - Randal Blanca - 08/22/2024 11:29 AM EDT Called patient to confirm 6-16 appt. Spoke with Devin at [facility], she will check with medical scheduler. Gave phone number and address. 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 12/24/2023 12/24/2023 Tuberculosis Rule-Out 02/21/2024 02/21/2024 Assessment Noted Time A fall risk assessment has been complete d for the patient 02/06/2024 10:08 AM EST A Body Mass Index follow-up plan has been documented for the patient 05/04/2024 10:07 AM EST documented as of this encounter Care Teams Senior Media Director Relationship Specialty Start Date End Date Edi Chase MD [address] [place] [address] PCP - General 03/14/20 Sam Sanchez MD [address] [place] [address] Consulting Physician Pulmonary Disease 08/11/22 Cayetano Cannon MD [address] [place] [address] Referring Physician 08/11/22 documented as of this encounter
--- OUTSIDE RECORDS SUMMARY | 2024-09-05 19:38 | XMS_ITS | Encounter Summary ---
Author Organization Healthcare Address [address] [place] [address] Care Team Providers Care Lamp Shade Assembler Name Role Phone Edi Chase MD Primary Care Provider [phone] Sam Sanchez MD Unavailable [phone] Cayetano Cannon MD Unavailable [phone] Encounter Details Date Type Department Care Team (Late st Contact Info) Description 12/14/2023 Orders Only External Location [address] [place] [address] Cedric Hinton MD [address] [place] [address] Social History Tobacco Use Types Packs/Day [...] AM EDT Appointment [facility] Neuro[facility]iology [address] [facility] [address] [place] [address] 10/26/2024 1:20 PM EDT Office Visit [facility] [address] [place] [address] Florentin Tillman MD [address] [place] [address] documented as of this encounter Procedures Procedure Name Priority Date/Time Associated Diagnosis Comments CT OUTSIDE IMAGES 12/14/2023 12:00 PM EDT documented in this encounter Results * CT OUTSIDE IMAGES (12/14/2023 12:00 PM EDT) Anatomical Region Laterality Modality Computed Tomogra phy 12/14/2023 12:0 0 PM EDT Cedric Hinton MD IMG CT PROCEDURES [...] documented as of this encounter Care Teams Lamp Shade Assembler Relationship Specialty Start Date End Date Edi Chase MD [address] [place] [address] PCP - General 03/14/20 Sam Sanchez MD [address] [place] [address] Consulting Physician Pulmonary Disease 08/11/22 Cayetano Cannon MD [address] [facility] [address] [place] [address] Referring Physician 08/11/22 documented as of this encounter
--- OUTSIDE RECORDS SUMMARY | 2024-09-05 19:38 | XMS_ITS | Encounter Summary ---
Author Organization Healthcare Address [address] [place] [address] Care Team Providers Care Want Ad Receiver Name Role Phone Edi Chase MD Primary Care Provider Sam Sanchez MD Unavailable [phone] Cayetano Cannon MD Unavailable [phone] Encounter Details Date Type Department Care Team (Late st Contact Info) Description 12/12/2023 Orders Only External Location [address] [place] [id number] Provider, External Social History Tobacco Use Types [...] Department Care Team (Late Contact Info) Description 10/16/2024 8:00 AM EDT Appointment [facility] Neuro[facility]iology [address] [facility] [address] [place] [address] 10/26/2024 1:20 PM EDT Office Visit [facility] [address] [place] [address] Florentin Tillman MD [address] [place] [address] documented as of this encounter Procedures Procedure Name Priority Date/Time Associated Diagnosis Comments PET OUTSIDE IMAGES 12/12/2023 12:13 PM EDT documented in this encounter Results * PET OUTSIDE IMAGES (12/12/2023 12:13 PM EDT) Anatomical Region Laterality Modality Nuclear Medicine 12/12/2023 12:1 3 PM EDT us External Provider IMG NM PROCEDURES Final Result [...] documented as of this encounter Care Teams Want Ad Receiver Relationship Specialty Start Date End Date Edi Chase MD [address] [place] [address] PCP - General 03/14/20 Sam Sanchez MD [address] [place] [address] Consulting Physician Pulmonary Disease 08/11/22 Cayetano Cannon MD [address] [place] [address] Referring Physician 08/11/22 documented as of this encounter
--- OUTSIDE RECORDS SUMMARY | 2024-09-05 19:38 | XMS_ITS | Encounter Summary ---
Author Organization Healthcare Address [address] [place] [address] Care Team Providers Care Golf Ball Trimmer Name Role Phone Edi Chase MD Primary Care Provider [phone] Sam Sanchez MD Unavailable [phone] Cayetano Cannon MD Unavailable [phone] Encounter Details Date Type Department Care Team (Late st Contact Info) Description 09/30/2022 Lab Requisition [facility] [address] [place] [address] Lyn Santana MD [address] [place] [address] Malignant neoplasm of upper lobe, left bronchus [...] AM EDT Appointment [facility] Neurophysiology [address] [facility] [address] [place] [address] 10/26/2024 1:20 PM EDT Office Visit [facility] [address] [place] [address] Florentin Tillman MD [address] [place] [address] documented as of this encounter Procedures Procedure Name Priority Date/Time Associated Diagnosis Comments AP MISCELLANEOUS LAB TEST (SO) Routine 09/08/2022 11:51 AM EDT Malignant neoplasm of upper lobe, left bronchus or lung (CMS/HCC) documented in this encounter Results * AP Miscellaneous Lab Test (09/08/2022 11:51 AM EDT) Test name PA Profile 10/15/2022 7:42 AM EDT [facility] Comment:[id number] Test Result see scan 10/15/2022 7:42 AM EDT [facility] See Scanned Result 10/15/2022 7:42 AM EDT [facility] Tissue 09/08/2022 11:5 1 AM EDT 09/30/2022 2:24 PM EDT us Lyn Santana MD LAB REF LAB BLOOD AND FLUID ORD Final Result [facility] documented in this encounter Visit Diagnoses [...] documented as of this encounter Care Teams Golf Ball Trimmer Relationship Specialty Start Date End Date Edi Chase MD [address] [place] [address] PCP - General 03/14/20 Sam Sanchez MD [address] [place] [address] Consulting Physician Pulmonary Disease 08/11/22 Cayetano Cannon MD [address] [place], [place] [address] Referring Physician 08/11/22 documented as of this encounter
--- OUTSIDE RECORDS SUMMARY | 2024-09-05 19:38 | XMS_ITS | Clinical Summary ---
Author Organization Healthcare Address [address] [place] [address] Care Team Providers Care Manager Floral Name Role Phone Edi Chase MD Primary Care Provider [phone] Sam Sanchez MD Unavailable [phone] Cayetano Cannon MD Unavailable [phone] Allergies No known active allergies Medications [...] time each day with breakfast. Active Multiple Vitamins-Minera ls (multivitamin with minerals) tablet Take 1 tablet [...] Apply to affected eye(s) every night. Active Fluticasone-Ume clidin-Vilant (Trelegy Ellipta) 100-62.5-25 MCG/ACT aerosol powder Inhale 1 puff 1 (one) time each day. Active HYDROcodone-rachel taminophen (Cowdrey) 5-325 MG tablet Take 1 tablet (5 mg of hydrocodone) by mouth 2 (two) times a day. Active amLODIPine (Norvasc) 5 MG tablet Take 1 tablet (5 mg) by mouth 1 (one) time each day. Active finasteride (Proscar) 5 MG tablet Take 1 tablet (5 mg) by mouth 1 (one) time each day. Do not crush, chew, or split. 4 Active timolol (Betimol) 0.5 % ophthalmic solution 1 drop 2 (two) times a day. Active Eliquis 2.5 MG tablet Take 1 tablet by mouth 2 times a day. Active gabapentin (Neurontin) 100 MG capsule Take 1 capsule by mouth 2 times a day. 5 Active hydroCHLOROthia zide (HYDRODiuril) 25 MG tablet Take 1 tablet by mouth daily. Active Senna-Time 8.6 MG tablet Take 2 tablets by mouth daily. Active Lokelma 10 g packet Active Ventolin HFA 108 (90 Base) MCG/ACT inhaler Active metoprolol succinate XL (Toprol-XL) 100 MG 24 hr tablet Take 1 tablet by mouth daily. Active metoprolol succinate XL (Toprol-XL) 200 MG 24 hr tablet Take 0.5 tablets (100 mg) by mouth 1 (one) time each day. 30 tablet 4 025 Discontinu ed(Per Patient Report) Active Problems Problem Noted Date Diagnosed Date Dizziness on standing 08/27/2024 Assessment & Plan (08/27/2024 5:26 PM EDT): Orders: EEG; Future Nonintractable episodic headache 08/27/2024 Assessment & Plan (08/27/2024 5:26 PM EDT): Cerebrovascular accident (CVA) 08/27/2024 Assessment & Plan (08/27/2024 5:26 PM EDT): Septic shock 12/23/2023 Chronic fatigue 12/05/2023 Iron deficiency anemia secon himanshu to inadequate dietary iron intake 12/05/2023 Hypertensive chronic kidney disease with stage 1 through stage 4 chronic kidney disease, or unspecified chronic kidney disease 12/01/2023 Anemia in stage 4 chronic kidney disease 024 Polycystic kidney disease 12/01/2023 Chronic hypoxic respiratory failure, on home oxy gen therapy 12/01/2023 Chronic kidney disease-mineral and bone disorder (CKD-MBD) 12/01/2023 Encounters Date Type Department Care Team Description 08/27/2024 1:00 PM EDT [facility] [address], [address] [place] [address] Cuong Catherine MD Dizziness on standing (Primary Dx); Nonintractable episodic headache, unspecified headache type; Cerebrovascular accident (CVA), unspecified mechanism (CMS/HCC) 08/27/2024 Travel 08/22/2024 [facility]phone [facility] [address], [address] [place] [address] Cuong Catherine MD from Last 3 Months Immunizations Immunization Administration Dates Next Due Hep [...] answer 12/26/2023 How often do you attend [facility] or mu-ism services? Patient unable to answer 12/26/2023 Do you belong to any clubs o r organizations such as nondenominational groups, unions, fraternal or athletic groups, or [...] Recorded Patient Health Questionnaire-2 Score 1 08/27/2024 [facility] - Occupational Stress Questionnaire Answer [...] place to sleep or slept in a fci (including now)? Patient unable to answer 12/26/2023 Utilities Answer Date Recorded In the past 12 months has [employer], gas, oil, or water company threatened to [...] Pulse 62 08/27/2024 12:53 PM EDT Temperature 36.5 C (97.7 F) 05/04/2024 9:19 AM EST Respiratory Rate 18 05/04/2024 9:19 AM EST Oxygen Saturation 92% 08/27/2024 12:53 PM EDT Inhaled Oxygen Concentration - - Weight 119 kg (261 lb 12.8 oz) 05/04/2024 9:19 A M EST Height 188 cm (6' 2 ) 08/27/2024 12:53 PM EDT Body Mass Index 33.61 05/04/2024 9:19 AM EST Plan of Treatment Upcoming Encounters Date Type Department Care Team (Late st Contact Info) Description 10/16/2024 8:00 AM EDT Appointment PAV H Neurophysiology 800 [facility] [address] [address] 10/26/2024 1:20 PM EDT Office Visit [facility] [address] [place] [address] Florentin Tillman MD [address] [place] [address] Health Maintenance Due Date Last Done Comments [facility]-Medicare Annual Wellness (AWV) 1950 [facility]-/Child/Adol SDOH Screenings 1950 [facility]-DTaP,Tdap,and Td Vaccines (1 - Tdap) 08/31/1967 [facility]-Pneumococcal Vaccine: 50+ Years (1 of 2 - PCV) 08/31/1967 [facility]-Zoster Vaccines (1 of 2) 08/31/1967 [id number] Vaccine (3 - Pfizer risk series) 05/10/2020 04/12/2020, 03/22/2020 [facility]-RSV Vaccine: 60+ Years or (1 - 1-dose 75+ series) 08/31/2023 [facility]- SDOH Screenings 06/25/2024 [facility]-Adult SDOH Screenings 06/25/2024 12/26/2023 [facility]-Influenza Vaccine (Season Ended) 2024 01/14/2020, 01/30/2019, 01/03/2018, Additional history exists [facility]-Diabetes: Hemoglobin A1C 12/22/2024 12/23/2023 [facility]-Depression Screening 08/27/2025 08/27/2024 [facility]-Hepatitis A Vaccines Aged Out 01/27/2018 No longer eligible based on patient's age to complete this topic [facility]-Hepatitis C Screening Completed 12/23/2023 [facility]-Obesity Intervention Completed 025, 05/04/2024, 02/06/2024, Additional history exists HPV Vaccines Aged Out [...] Antibody Negative Negative 12/23/2023 6:55 PM EDT [facility] Blood Venous blood specimen / Unknown Venipuncture / Unknown 12/23/2023 5:39 PM EDT 12/23/2023 6:04 PM EDT Med Lyn MD LAB BLOOD ORDERABLES Final Result Performing Organization Address City/[facility]/ZIP Co de Phone Number [facility] [address] [place] [address] * (ABNORMAL) Hemoglobin A1c (12/23/2023 5:39 PM EDT) Hemoglobin A1c 6.3(H) <5.7 % 12/24/2023 12:22 AM EDT [facility] Blood Venous blood specimen / Unknown Venipuncture / Unknown 12/23/2023 5:39 PM EDT 12/23/2023 5:55 PM EDT Narrative [facility] - 12/24/2023 12:22 AM EDT HA1C Interpretive Data: Diagnosis of Diabetes: Diabetic > or = 6.5% Pre-diabetic 5.7 to 6.4% Non-diabetic < or = 5.6% Glycemic Targets for Type I and Type II Diabetics: Non- Adults <7.0% Adults <6.0% Children and Adolescents <7.5% Source: [place] [employer]. Standards of medical care in diabetes,2017. Diabetes Care.2017:40 (suppl 1):S1-S135. HbA1c assay performed by an ion-exchange chromatography method that is certified traceable to the DCCT. us Socorro Mauro APRN LAB BLOOD ORDERABLES Final R esult [facility] [address] [place] [address] from Last 3 Months or Most Recently Relevant to Health Maintenance Additional Health Concerns Infection Onset Date Last Indicated 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 12/24/2023 12/24/2023 Tuberculosis Rule-Out 02/21/2024 02/21/2024 Insurance [facility] [address] [place] [id number] MEDICARE [place] Advance Directives * Full Code (Latest Code Status on File) Date Activated Date Inactivated Comments 12/30/2023 5:49 PM 01/02/2024 4:25 PM Question Answer Comments Patient has decision-making capacity? Yes Care Teams Manager Floral Relationship Specialty Start Date End Date Edi Chase MD [address] [place] [address] PCP - General 03/14/20 Sam Sanchez MD [address] [place] [address] Consulting Physician Pulmonary Disease 08/11/22 Cayetano Cannon MD [address] [place] [address] Referring Physician 08/11/22
--- OUTSIDE RECORDS SUMMARY | 2024-09-05 19:38 | XMS_ITS | Encounter Summary ---
Author Organization Healthcare Address [address] [place] [address] Care Team Providers Care Mat Weaver Name Role Phone Edi Chase MD Primary Care Provider [phone] Sam Sanchez MD Unavailable [phone] Cayetano Cannon MD Unavailable [phone] Encounter Details Date Type Department Care Team (Late st Contact Info) Description 12/26/2023 Lab Requisition [facility] H Lab [address] [place] [address] Amado Horton MD [address] [facility] [address] [place] [address] Encounter for general adult medical [...] How often do you attend chur or zoroastrianism services? Patient unable to answer 12/26/2023 Do you belong to any clubs o r organizations such as christianity groups, unions, fraternal or athletic groups, or [...] one occasion? Patient unable to answer 12/26/2023 [facility] [place] [facility] - Occupational Stress Questionnaire Answer Date [...] place to sleep or slept in a alf (including now)? Patient unable to answer 12/26/2023 [...] No 12/29/2023 4:00 PM EDT Dylan Llamas U, RN 6. Suicidal Behavior (Lifetime) No 4:00 PM EDT Solange Llamas U, RN documented as of this encounter Plan of Treatment Upcoming Encounters Date Type Department Care Team (Late st Contact Info) Description 10/16/2024 8:00 AM EDT Appointment PAV H Neurophysiology 800 [facility] [address] [place] [address] 10/26/2024 1:20 PM EDT Office Visit [facility] [address] [place] [address] Florentin Tillman MD [address] [place] [address] documented as of this encounter Procedures Procedure Name Priority Date/Time Associated Diagnosis Comments MULTI DRUG RESISTANCE TEST Routine 12/26/2023 2:00 PM EDT Encounter for general adult medical examination without abnormal findings documented in this encounter Results * Multi Drug Resistance Test (12/26/2023 2:00 PM EDT) Culture No growth at day 1 12/27/2023 12:24 PM EDT [facility] Swab (Nares and Brenda Rectal) 12/26/2023 2:00 PM EDT 12/26/2023 3:15 PM EDT us Amado Horton MD LAB MICROBIOLOGY - GEN ERAL ORDERABLES Final Result [facility] [address] [place] [address] documented in this encounter Visit Diagnoses Diagnosis [...] documented as of this encounter Care Teams Mat Weaver Relationship Specialty Start Date End Date Edi Chase MD [address] [place] [address] PCP - General 03/14/20 Sam Sanchez MD [address] [place] [address] Consulting Physician Pulmonary Disease 08/11/22 Cayetano Cannon MD [address] [facility] [address] [place] [address] Referring Physician 08/11/22 documented as of this encounter
--- OUTSIDE RECORDS SUMMARY | 2024-09-05 19:38 | XMS_ITS | Encounter Summary ---
Author Organization [facility] Address [address] [place] [address] Care Team Providers Care Sql Report Analyst Name Role Phone Edi Chase MD Primary Care Provider [phone] Sam Sanchez MD Unavailable [phone] Cayetano Cannon MD Unavailable [phone] Encounter Details Date Type Department Care Team (Latest Contact Info) Description 08/27/2024 Travel Social History Tobacco Use Types Packs/Day Years Used Date Smoking Tobacco: Former Cigarettes 2 47 1 97 - 2017 Passive Smoke Exposure: Never Smokeless Tobacco: [...] How often do you attend chur or baptist services? Patient unable to answer 12/26/2023 Do you belong to any clubs o r organizations such as bahai groups, unions, fraternal or athletic groups, or [...] Recorded Patient Health Questionnaire-2 Score 1 08/27/2024 [facility] - Occupational Stress Questionnaire Answer Date [...] place to sleep or slept in a snf (including now)? Patient unable to answer 12/26/2023 [...] as of this encounter Functional Status * Over the [...] Jason Briscoe documented as of this encounter Plan of Treatment Upcoming Encounters Date Type Department Care Team (Late st Contact Info) Description 10/16/2024 8:00 AM EDT Appointment PAV H Neurophysiology [address] [facility] [address] [place] [address] 10/26/2024 1:20 PM EDT Office Visit [facility] [address] [place] [address] Florentin Tillman MD [address] [place] [address] documented as of this encounter Visit Diagnoses [...] documented as of this encounter Care Teams Sql Report Analyst Relationship Specialty Start Date End Date Edi Chase MD [address] [place] [address] PCP - General 03/14/20 Sam Sanchez MD [address] [place] [address] Consulting Physician Pulmonary Disease 08/11/22 Cayetano Cannon MD [address] [place] [id number] Referring Physician 08/11/22 documented as of this encounter
--- OUTSIDE RECORDS SUMMARY | 2024-09-05 19:38 | XMS_ITS | Encounter Summary ---
Author Organization Healthcare Address [address] [place] [address] Care Team Providers Care Treater Helper Name Role Phone Edi Chase MD Primary Care Provider [phone] Sam Sanchez MD Unavailable [phone] Cayetano Cannon MD Unavailable [phone] Encounter Details Date Type Department Care Team ([facility] st Contact Info) Description 01/05/2024 Orders Only External Location [address] [place] [address] Cedric Hinton MD [address] [place] [address] Social History Tobacco Use Types Packs/Day Years [...] often do you attend chur ch or taoism services? Patient unable to answer 12/26/2023 Do you belong to any clubs o r organizations such as rastafari groups, unions, fraternal or athletic groups, or [...] one occasion? Patient unable to answer 12/26/2023 [facility] - Occupational Stress Questionnaire Answer [...] Description 10/16/2024 8:00 AM EDT Appointment PAV Neurophysiology 800 [facility] Room [address] [address] 10/26/2024 1:20 PM EDT Office Visit [facility] [address] [place] [address] Florentin Tillman MD [address] [place] [address] documented as of this encounter Procedures Procedure Name Priority Date/Time Associated Diagnosis Comments CT OUTSIDE IMAGES 01/05/2024 10:11 AM EDT documented in this encounter Results * CT OUTSIDE IMAGES (01/05/2024 10:11 AM EDT) Anatomical Region Laterality Modality Computed Tomogra phy 01/05/2024 10:1 1 AM EDT Cedric Hinton MD IM CT PROCEDURES Final Result documented in this encounter Visit Diagnoses Not on filedocumented in this encounter Additional Health Concerns Infection Onset Date 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
== END ==
LOC: SL 19:35
PROVIDERS: Visit Provider Internal Medicine Pulmonary Disease
DX: J96.11 Chronic respiratory failure with hypoxia; G47.33 Obstructive sleep apnea (adult) (pediatric)
CPT/HCPCS: 95811

== ENCOUNTER 2024-09-09 21:08 | Inpatient (IN) | payer MEDICARE, MEDICAID, SELFPAY ==
--- OUTSIDE RECORDS SUMMARY | 2006-01-18 07:04 | XMS_ITS | Continuity of Care Document ---
Author Organization [facility] o Address [address] [place] [address] Phone Care Team Providers Care Road Cleaner Name Role Phone Bruno Rogel MD Unavailable Unavailable Procedures Procedure Date Emg 1 Ext Nrv conductn motor, ea nrv w/o Fwav Nerve conductn motor ea nrv sensory Advance Directives Directive Yes / No Effective Date File Name No Information Encounters Encounter Description Practice Location Reason(s) For Visit Diagnoses Date Provider Providers Copied on Encounter [facility] [place], [address] [place] [address], [address], [place] tel:[phone] [facility] No Information 7200 6 Juan F Carr. [address] [place], [place], [id number] , [place]. tel:[phone] Family History Family Member Type Diagnosis Age At Onset No Information Payers Payer name Insurance type Covered alliance party ID Authoriza tion(s) Medicare [employer] MB [id number] Social History Type Description Quantity Date Captured [...]
--- OUTSIDE RECORDS SUMMARY | 2012-09-01 08:57 | XMS_ITS | Continuity of Care Document ---
Author Organization [facility] Phys[facility] Address [address] [place] [address] Phone Care Team Providers Care State Auditor Name Role Phone Roderick Rogers MD Unavailable [...] Diagnoses Date Provider Providers Copied on Encounter [facility], [address] [place], [address], tel:[phone] [facility] No Information 3 Sue Roderick. [address] [place], [place], [address], . tel:[phone] [facility], [address] [place], [address], [place] tel:[phone] [facility] [place] No Information 3 Nordlund Shaquille. [address] [place], [place], [address]. [phone] [facility], [address] [place], [address], [place] tel:[phone] [facility] [place] No Information Dec- 2 Dashawn Stephenson. [address] [facility], [address], [place], [place], [address]. tel:[phone] OFFICE/OUTPA TIENT VISIT, EST [facility], [address] [place], [address], [place] tel:[phone] [facility] [place] OPEN-ANGLE GLAUCOMA NOSIndeterminate Stage Glaucoma 2 Sue Roderick. [address] [place], [place], [address], [place]. tel:[phone] Referring Provider: Florentin Ruelas, [address] [place] [address] [address], [place], [address]. tel:[phone] OFFICE/OUTPA TIENT VISIT, EST [facility], [address] [place], [address], [place] [phone] [facility] [place] ALKAL BURN CORNEA/CONJUNBAND -SHAPED KERATOPATHYBULLOU S KERATOPATHYCORNEA TRANSPLANT STATUSOPEN-ANGLE GLAUCOMA NOS 2 Nordlund Shaquille. [address] [place], [place], [address]. tel:[phone] Referring Provider: Florentin Ruelas, [address] [facility] [address], [place], [address]. tel:[phone] OFFICE/OUTPA TIENT VISIT, EST [facility], [address] [place], [address], [place] tel:[phone] [facility] CORNEA TRANSPLANT STATUS 2 Nolan Gonzalez. [address] [place], [place], [address]. tel:[phone] Referring Provider: Florentin Ruelas, [address] [facility] [address], [place], [address]. tel:[phone] [facility], [address] [place], [address], [place] [phone] [facility] [facility] No Information 2 Dashawn Stephenson. [address] [facility], [address], [place], [place], [address]. tel:[phone] Referring Provider: Florentin Ruelas, [address] [facility] [address] [facility], [place], [address]. tel:[phone] OFFICE/OUTPA TIENT VISIT, EST [facility], [address] [place], [address], [place] [phone] [facility] [employer] [facility] BULLOUS KERATOPATHYCORNEA TRANSPLANT STATUS 1 Dashawn Stephenson. [address] [facility], [address], [place], [place], [address]. tel:[phone] Referring Provider: Florentin Ruelas, [address] [facility] [address] [facility], [place], [address]. tel:[phone] OFFICE/OUTPA TIENT VISIT, EST [facility], [address] [place], [address], [place] [phone] [facility] [employer] [facility] BULLOUS KERATOPATHYCORNEA TRANSPLANT STATUSBAND-SHAPED KERATOPATHY 1 Dashawn Stephenson. [address] [facility], [address], [place], [place], [address]. tel:[phone] Referring Provider: Mina Lawrence, [address], [place], [address]. tel:[phone] OFFICE/OUTPA TIENT VISIT, EST [facility], [address] [place], [address], [place] tel:[phone] [facility] [employer] [facility] BAND-SHAPED KERATOPATHYCORNEA TRANSPLANT STATUS 1 Dashawn Stephenson. [address] [facility], [address], [place], [place], [address]. tel:[phone] Referring Provider: Florentin Ruelas, [address] [facility] [address], [place], [address]. tel:[phone] OFFICE/OUTPA TIENT VISIT, EST [facility], [address] [place], [address], [place] tel:[phone] [facility] BULLOUS KERATOPATHYBAND-S HAPED KERATOPATHY May- 1 Dashawn Stephenson. [address] [facility], [address], [place], [place], [address]. tel:[phone] Referring Provider: Mina Meyers M, [address], [place], [address]. tel:[phone] [facility], [address] [place], [address], [place] tel:[phone] [facility] [employer] [facility] No Information 1 Dashawn Stephenson. [address] [facility], [address], [place], [place], [address]. tel:[phone] Referring Provider: Sachin Zepeda, [address] [facility] [address], [place], [address] . tel:[phone] OFFICE/OUTPA TIENT VISIT, EST [facility], [address] [place], [address], [place] tel:[phone] [facility] [employer] [facility] BULLOUS KERATOPATHYAPHAKI A 0 Dashawn Stephenson. [address] [facility], [address], [place], [place], [address]. tel:[phone] Referring Provider: Sachin Zepeda, [address] [facility] [address], [place], [address] . tel:[phone] OFFICE/OUTPA TIENT VISIT, EST [facility], [address] [facility] [address], [place], [address], [place] [phone] [employer] BAND-SHAPED KERATOPATHYCORNEA TRANSPLANT STATUSBULLOUS KERATOPATHY Nov- 3-201 0 Dashawn Stephenson. [address] [facility], [address], [place], [place], [address]. tel:[phone] Referring Provider: Sachin Zepeda, [address] [facility] [address], [place], [address] . tel:[phone] Family History Family Member Type Diagnosis Age At Onset No Information Payers Payer name Insurance type Covered libertarian ID Authoriza tion(s) No Information Social History [...]
--- OUTSIDE RECORDS SUMMARY | 2024-08-27 13:00 | XMS_ITS | Encounter Summary ---
Author Organization [facility] Address [address] [place] [address] Care Team Providers Care Alpine Patroller Name Role Phone Edi Chase MD Primary Care Provider [phone] Sam Sanchez MD Unavailable [phone] Cayetano Cannon MD Unavailable [phone] Reason for Referral * Other Medical (Routine) - Pending Review Specialty Diagnoses / Procedures Referred By José campbell Referred To Contact Neurology Diagnoses Dizziness on standing Procedures EEG Jyoti [place] MD [address] [facility] [address] [place] [address] Phone: tel: fax: Referral ID Status Reason Start Date Expiration Date Visits Requested Visits Authorized [id number] Pending Review Specialty Services Required 08/27/2024 02/26/2026 1 1 Reason for Visit * Consultation (Routine) - Closed Specialty Diagnoses / Procedures Referred By José campbell Referred To Contact Neurology Diagnoses Syncope and collapse Malignant neoplasm of unspecified part of unspecified bronchus or lung (CMS/HCC) Miriam Baugh, RESIDENTIAL ELECTRICIAN [address] [place] [address] Phone: tel: fax: Referral ID Status Reason Start Date Expiration Date V isits Requested Visits Authorized [id number] Closed Specialty Services Required 01/24/2024 07/25/2025 1 1 Encounter Details Date Type Department Care Team ([facility] st Contact Info) Description 08/27/2024 1:00 PM EDT Consult [place] [facility] [address], [address] [place] [address] Cuong Catherine MD [address] [place] [address] Dizziness on standing (Primary Dx); Nonintractable episodic [...] answer 12/26/2023 How often do you attend [facility] or amish services? Patient unable to answer 12/26/2023 Do you belong to any clubs o r organizations such as baptist groups, unions, fraternal or athletic groups, or [...] Recorded Patient Health Questionnaire-2 Score 1 08/27/2024 [facility] - Occupational Stress Questionnaire Answer [...] place to sleep or slept in a senior care (including now)? Patient unable to answer 12/26/2023 [...] for lung cancer who presents to the [facility] as a new patient today with/for headaches and dizzy spells. HPI Referral placed by Miriam Baugh APRN for evaluation of syncope and collapse. Pt lives in a senior care and presents today with care nurse. Patient's [...] Reflexes: 2+ throughout Coordination: no ataxia with zyivww-tk-ogma testing Proprioception: intact in upper extremities bilaterally [...] orthostatic hypotension. He should follow with his coil machine operator to obtain orthostatic vital signs and consider [...] 3 months Counseling Documentation: The patient and commercial account officer was counseled regarding impressions. Education provided was verbal counseling. Additional time was spent in care coordination including medical record review. The total time of encounter was 100 minutes. . Cuong Catherine MD, PGY-2, Neurology Secure Chat/Pager: [phone] 08/27/2024 5:26 PM Dictation software disclaimer: Parts [...] After use, clean tip and replace cap. Rikzhxiddlr-Gnhrhrbfy-Yyfvnr (Trelegy Ellipta) 100-62.5-25 MCG/ACT aerosol powder Inhale 1 puff 1 (one) time each day. gabapentin (Neurontin) 100 MG capsule Take 1 capsule by mouth 2 times a day. hydroCHLOROthiazide (HYDRODiuril) 25 MG tablet Take 1 tablet by mouth daily. HYDROcodone-acetaminophen ([place]) 5-325 MG tablet Take 1 tablet (5 [...] We discussed patient seeing eitherhis PCP or coil machine operator to test orthostatic vitals and adjust medications [...] AM EDT Appointment [facility] Neuro[facility] [address] [facility] [address] [place] [address] 10/26/2024 1:20 PM EDT [facility] [address] [place] [address] Florentin Tillman MD [address] [place] [address] Scheduled Orders Name Type Priority Associated Diagnoses [...] documented as of this encounter Care Teams Alpine Patroller Relationship Specialty Start Date End Date Edi Chase MD [address] [place] [address] PCP - General 03/14/20 Sam Sanchez MD [address] [place] [address] Consulting Physician Pulmonary Disease 08/11/22 Cayetano Cannon MD [address] [place] [address] [place] [address] Referring Physician 08/11/22 documented as of this encounter
--- OUTSIDE RECORDS SUMMARY | 2024-08-27 13:00 | XMS_ITS | Encounter Summary ---
Author Organization [facility] Address [address] [place] [address] Care Team Providers Care Sterilization Specialist Name Role Phone Edi Chase MD Primary Care Provider [phone] Sam Sanchez MD Unavailable [phone] Cayetano Cannon MD Unavailable [phone] Reason for Referral * Other Medical (Routine) - Pending Review Specialty Diagnoses / Procedures Referred By José campbell Referred To Contact Neurology Diagnoses Dizziness on standing Procedures EEG Jyoti [place] MD [address] [facility] [address] [place] [address] Phone: tel: fax: Referral ID Status Reason Start Date Expiration Date Visits Requested Visits Authorized [id number] Pending Review Specialty Services Required 08/27/2024 02/26/2026 1 1 Reason for Visit * Consultation (Routine) - Closed Specialty Diagnoses / Procedures Referred By José campbell Referred To Contact Neurology Diagnoses Syncope and collapse Malignant neoplasm of unspecified part of unspecified bronchus or lung (CMS/HCC) Miriam Baugh, SILK SCREEN PRINTER HELPER [address] [place] [address] Phone: tel: fax: Referral ID Status Reason Start Date Expiration Date V isits Requested Visits Authorized [id number] Closed Specialty Services Required 01/24/2024 07/25/2025 1 1 Encounter Details Date Type Department Care Team ([facility] st Contact Info) Description 08/27/2024 1:00 PM EDT Consult [place] [facility] [address], [address] [place] [address] Cuong Catherine MD [address] [place] [address] Dizziness on standing (Primary Dx); Nonintractable episodic [...] answer 12/26/2023 How often do you attend [facility] or orthodoxy services? Patient unable to answer 12/26/2023 Do you belong to any clubs o r organizations such as buddhism groups, unions, fraternal or athletic groups, or [...] Recorded Patient Health Questionnaire-2 Score 1 08/27/2024 [facility] Occupat ional [facility] - Occupational Stress Questionnaire Answer Date [...] place to sleep or slept in a prison (including now)? Patient unable to answer 12/26/2023 [...] for lung cancer who presents to the [facility] as a new patient today with/for headaches and dizzy spells. HPI Referral placed by Miriam Baugh APRN for evaluation of syncope and collapse. Pt lives in a [facility] and presents today with care nurse. Patient's [...] Reflexes: 2+ throughout Coordination: no ataxia with wvffgv-mq-zjqa testing Proprioception: intact in upper extremities bilaterally [...] orthostatic hypotension. He should follow with his glue reel operator to obtain orthostatic vital signs and [...] 3 months Counseling Documentation: The patient and fine jewelry sales associate was counseled regarding impressions. Education provided was verbal counseling. Additional time was spent in care coordination including medical record review. The total time of encounter was 100 minutes. . Cuong Catherine MD, PGY-2, Neurology Secure Chat/Pager: [phone] 08/27/2024 5:26 PM Dictation software disclaimer: Parts [...] After use, clean tip and replace cap. Irikhnrroaa-Kdcdborqk-Gyeslj (Trelegy Ellipta) 100-62.5-25 MCG/ACT aerosol powder Inhale 1 puff 1 (one) time each day. gabapentin (Neurontin) 100 MG capsule Take 1 capsule by mouth 2 times a day. hydroCHLOROthiazide (HYDRODiuril) 25 MG tablet Take 1 tablet by mouth daily. HYDROcodone-acetaminophen ([place]) 5-325 MG tablet Take 1 tablet (5 [...] We discussed patient seeing eitherhis PCP or glue reel operator to test orthostatic vitals and adjust [...] AM EDT Appointment [facility] Neuro[facility] [address] [facility] [address] [place] [address] 10/26/2024 1:20 PM EDT Office Visit [facility] [address] [place] [address] Florentin Tillman MD [address] [place] [address] Scheduled Orders Name Type Priority Associated Diagnoses [...] documented as of this encounter Care Teams Sterilization Specialist Relationship Specialty Start Date End Date Edi [place] MD [address] [place] [address] PCP - General 03/14/20 Sam Sanchez MD [address] [place] [address] Consulting Physician Pulmonary Disease 08/11/22 Cayetano Cannon MD [address] [place] [address] [place] [address] Referring Physician 08/11/22 documented as of this encounter
[2024-09-09] VITALS (8 sets, daily range): BP systolic 150–165; BP diastolic 82–92; PULSE 55–60; RESP 16–20; TEMP 36.7; O2SAT 89–97; BMI 32.5; BMI 32.6
--- NOTE | 2024-09-09 20:30 | ECG_ITS ---
APPROVED REPORT Exam: Resting ECG HR:60 bpm ECG Measurements Heart Rate 60 AXES AZ 214 P 65 QRSd 110 QRS -46 QT 278 T -82 QTc 278 Conclusion Sinus rhythm Nonspecific ST and T wave changes Electronically signed by : SHIKHA OLVERA, 09/09/2024 23:07:20
--- NOTE | 2024-09-09 21:11 | XR_ITS ---
PROCEDURE INFORMATION: Exam: XR Chest Exam date and time: 09/09/2024 9:15 PM Age: 74 years old Clinical indication: Pain; Left-sided; Additional info: Cp to left shoulder TECHNIQUE: Imaging protocol: Radiologic exam of the chest. Views: 1 view. COMPARISON: CR XR CHEST 2V 08/17/2024 10:48 AM FINDINGS: Lungs: Similar left upper lobar infiltrative density. Pleural spaces: Unremarkable. No pleural effusion. No pneumothorax. Heart/Mediastinum: Stable mild cardiomegaly. Bones/joints: Unremarkable. IMPRESSION: Similar left upper lobar mass.
--- OUTSIDE RECORDS SUMMARY | 2024-09-09 21:14 | XMS_ITS | Encounter Summary ---
Author Organization Healthcare Address [address] [place] [address] Care Team Providers Care Venetian Blind Assembler Name Role Phone Edi Chase MD Primary Care Provider [phone] Sam Sanchez MD Unavailable [phone] Cayetano Cannon MD Unavailable [phone] Encounter Details Date Type Department Care Team (Late st Contact Info) Description 12/26/2023 Lab Requisition [facility] H Lab [address] [place] [address] Amado Horton MD [address] [facility] [address] [place] [address] Encounter for general adult medical [...] How often do you attend chur or rastafari services? Patient unable to answer 12/26/2023 Do [...] one occasion? Patient unable to answer 12/26/2023 [facility] - Occupational Stress Questionnaire Answer Date Recorded [...] AM EDT Appointment PAV H Neurophysiology 800 [facility] [address] [place] [address] 10/26/2024 1:20 PM EDT Office Visit [facility] [address] [place] [address] Florentin Tillman MD [address] [place] [address] documented as of this encounter Procedures Procedure Name Priority Date/Time Associated Diagnosis Comments MULTI DRUG RESISTANCE TEST Routine 12/26/2023 2:00 PM EDT Encounter for general adult medical examination without abnormal findings documented in this encounter Results * Multi Drug Resistance Test (12/26/2023 2:00 PM EDT) Culture No growth at day 1 12/27/2023 12:24 PM EDT [facility] Swab (Nares and Brenda Rectal) 12/26/2023 2:00 PM EDT 12/26/2023 3:15 PM EDT us Amado Horton MD LAB MICROBIOLOGY - GEN ERAL ORDERABLES Final Result [facility] [address] [place] [address] documented in this encounter Visit Diagnoses Diagnosis [...] documented as of this encounter Care Teams Venetian Blind Assembler Relationship Specialty Start Date End Date Edi Chase MD [address] [place] [address] PCP - General 03/14/20 Sam Sanchez MD [address] [place] [address] Consulting Physician Pulmonary Disease 08/11/22 Cayetano Cannon MD [address] [facility] [address] [place] [address] Referring Physician 08/11/22 documented as of this encounter
--- OUTSIDE RECORDS SUMMARY | 2024-09-09 21:14 | XMS_ITS | Encounter Summary ---
Author Organization Healthcare Address [address] [place] [address] Care Team Providers Care Armored Car Messenger Name Role Phone Edi Chase MD Primary Care Provider [phone] Sam Sanchez MD Unavailable [phone] Cayetano Cannon MD Unavailable [phone] Encounter Details Date Type Department Care Team ([facility] st Contact Info) Description 01/05/2024 Orders Only External Location [address] [place] [address] Cedric Hinton MD [address] [place] [address] Social History Tobacco Use Types Packs/Day Years [...] often do you attend chur ch or jainism services? Patient unable to answer 12/26/2023 Do you belong to any clubs o r organizations such as catholic groups, unions, fraternal or athletic groups, or [...] one occasion? Patient unable to answer 12/26/2023 [facility] - Occupational Stress Questionnaire [...] place to sleep or slept in a assisted (including now)? Patient unable to answer 12/26/2023 [...] 8:00 AM EDT Appointment PAV Neurophysiology 800 [facility] Room [address] [address] 10/26/2024 1:20 PM EDT Office Visit [facility] [address] [place] [address] Florentin Tillman MD [address] [place] [address] documented as of this encounter Procedures Procedure [...] documented as of this encounter Care Teams Armored Car Messenger Relationship Specialty Start Date End Date Edi Chase MD [address] [place] [address] PCP - General 03/14/20 Sam Sanchez MD [address] [place] [address] Consulting Physician Pulmonary Disease 08/11/22 Cayetano Cannon MD [address] [facility] [address] [place] [id number] Referring Physician 08/11/22 documented as of this encounter
--- OUTSIDE RECORDS SUMMARY | 2024-09-09 21:14 | XMS_ITS | Encounter Summary ---
Author Organization Healthcare Address [address] [place] [address] Care Team Providers Care Holistic Health Practitioner Name Role Phone Edi Chase MD Primary Care Provider Sam Sanchez MD Unavailable [phone] Cayetano Cannon MD Unavailable [phone] Encounter Details Date Type Department Care Team (Late st Contact Info) Description 09/30/2022 Lab Requisition [facility] H Lab [address] [place] [address] Lyn Santana MD [address] [place] [address] Malignant neoplasm of upper lobe, left bronchus [...] AM EDT Appointment PAV H Neurophysiology [address] [facility] [address] [place] [address] 10/26/2024 1:20 PM EDT Office Visit [facility] [address] [place] [address] Florentin Tillman MD [address] [place] [address] documented as of this encounter Procedures Procedure Name Priority Date/Time Associated Diagnosis Comments AP MISCELLANEOUS LAB TEST (SO) Routine 09/08/2022 11:51 AM EDT Malignant neoplasm of upper lobe, left bronchus or lung (CMS/HCC) documented in this encounter Results * AP Miscellaneous Lab Test (09/08/2022 11:51 AM EDT) Test name MD Profile 10/15/2022 7:42 AM EDT [facility] Comment:[id number] Test Result see scan 10/15/2022 7:42 AM EDT [facility] See Scanned Result 10/15/2022 7:42 AM EDT [facility] Tissue 09/08/2022 11:5 1 AM EDT 09/30/2022 2:24 PM EDT us Lyn Santana MD LAB REF LAB BLOOD AND FLUID ORD Final Result [facility] documented in this encounter Visit Diagnoses [...] documented as of this encounter Care Teams Holistic Health Practitioner Relationship Specialty Start Date End Date Edi Chase MD [address] [place] [address] PCP - General 03/14/20 Sam Sanchez MD [address] [place] [address] Consulting Physician Pulmonary Disease 08/11/22 Cayetano Cannon MD [address] [place], [place] [address] Referring Physician 08/11/22 documented as of this encounter
--- OUTSIDE RECORDS SUMMARY | 2024-09-09 21:14 | XMS_ITS | Data Portability ---
Author Organization [facility] ADMIN Address [address] [place] [address] Care Team Providers Care Site Specialist Name Role Phone ROZINAROSA Primary Care Provider Assessment No assessment recorded. Plan of Treatment Reminders Order Date Submit Date Provider Last Modified By Organization Details Last Modified Time Details Appointments FOLLOW UP 30 2024 10:00A M JUSTO VU MD Not available Not available Not available Lab culture, urine + sensitivi ty 2023 024 [facility] (Lab Registration) , [address] [place] [address] , [place], [address], 05/06/2023 07:44:10 urinalysi s, dipstick [address] [facility] [place], [address] [place] [address], [phone], 05/02/2023 09:19:22 Referral None recorded. Procedures bladder scan (PROC) [address] [facility] [place], [address] [place] [address], [phone], 05/02/2023 09:19:22 Surgeries None recorded. Imaging None recorded. Medication Orders cefdinir 300 mg capsule 2023 024 [place] [address] [facility], [facility] Ebonie Widle, [place], [address], 04/29/2023 16:44:27 cefdinir 300 mg capsule 2023 024 [facility] [place] [address] [place] , [place], [address], 03/23/2023 12:36:21 finasteri de 5 mg tablet 2022 023 [facility] [place] [address], [facility] Aribern[place] , [place], [address], 03/23/2023 12:36:44 Patient TargetsNo targets recorded. Patient InstructionsNo instructions recorded. Reason for Referral None Reported. Results Created Date Observation Date Name Description Value Unit Range Abnormal Flag Note LastModifiedBy Organization Detail LastModifiedTime 02/16/2002/15/2023 BASIC METAB OLIC PANEL sodium 133 mmol/ L 137-14 7 low Not Available [facility] (Pre-Op Clinic) [address] [place] [address] [place], [address], 02/15/2023 11:26:59 02/16/20 23 02/15/2023 BASIC METAB OLIC PANEL potassium 5.1 mmol/ L 3.5-5. 1 Not Available [facility] (Pre-Op Clinic) [address] [place] [address] [place], [address], 02/15/2023 11:26:59 02/16/20 23 02/15/2023 BASIC METAB OLIC PANEL chloride 93 mmol/ L 98-110 low Not Available [facility] (Pre-Op Clinic) [address] [place] [address] [place], [address], 02/15/2023 11:26:59 02/16/20 23 02/15/2023 BASIC METAB OLIC PANEL carbon dioxide 28 mmol/ L 21-30 Not Available [facility] (Pre-Op Clinic) [address] [place] [address] [place], [address], 02/15/2023 11:26:59 02/16/20 23 02/15/2023 BASIC METAB OLIC PANEL anion gap 12 mmol/ L 6-14 Not Available [facility] (Pre-Op Clinic) [address] [place] [address] [place], [address], 02/15/2023 11:26:59 02/16/20 23 02/15/2023 BASIC METAB OLIC PANEL glucose 84 mg/dL 70-115 Not Available [facility] (Pre-Op Clinic) [address] [facility] [place], [address], 02/15/2023 11:26:59 02/16/20 23 02/15/2023 BASIC METAB OLIC PANEL BUN 39 mg/dL 9-20 high Not Available [facility] (Pre-Op Clinic) [address] [place] [address] [place], [address], 02/15/2023 11:26:59 02/16/20 23 02/15/2023 BASIC METAB OLIC PANEL creatinine 2.1 mg/dL 0.5-1. 5 high Not Available [facility] (Pre-Op Clinic) [address] [place] [address] [place], [address], 02/15/2023 11:26:59 02/16/20 23 02/15/2023 BASIC METAB OLIC PANEL BUN/creatini ne ratio 19 ratio 10-20 Not Available [facility] (Pre-Op Clinic) [address] [place] [address] [place], [address], 02/15/2023 11:26:59 02/16/20 23 02/15/2023 BASIC METAB OLIC PANEL glom filtration rate TNP mL/mi n >60- GFR has only been valid ated for patie nts 18-70 years of age. Not Available [facility] (Pre-Op Clinic) [address] [place] [address] [place], [address], 02/15/2023 11:26:59 02/16/20 23 02/15/2023 BASIC METAB OLIC PANEL osmolality (calculated) 286 mosmo l/kg 275-30 1 OSMOL ALITY IS A CALCU LATIO N UTILI ZING THE SERUM /PLAS MA SODIU M, GLUCO SE AND UREA NITRO GEN (BUN) LEVEL S. FOR THE MOST ACCUR ATE RESUL T A MEASU RED SERUM OSMOL ALITY IS CLAUDIO FUNG. Not Available [facility] (Pre-Op Clinic) [address] [place] [address] [place], [address], 02/15/2023 11:26:59 02/16/20 23 02/15/2023 BASIC METAB OLIC PANEL calcium 9.4 mg/dL 8.5-10 .8 Not Available [facility] (Pre[facility]Op Clinic) [address] [place] [address] [place], [address], 02/15/2023 11:26:59 02/16/20 23 02/15/2023 BASIC METAB OLIC PANEL note Unles s other hernandez noted testi ng perfo rmed at: [facility] [address] [place] [address] Arnaud mays MD Not Available [facility] (Pre-Op Clinic) [address] [place] [address] [place], [address], 02/15/2023 11:26:59 02/19/20 23 02/18/2023 RFS-P ATHOL OGY SPECI MEN REQUE ST pathreq Patho logy [address] [place] [address] Phone or [phone] Fax Joseph almonte Jr., M.D., Medic al Direc tor [facility] [address] : [place] [address] Phone Numbe r: [phone] Arnaud mays M.D. PATHO LOGY REPOR T Patie nt Name: AUDRA MEJIA Date of : 1950 Age/S ex: 72/M Accou nt Numbe r: [id number] Medic al Recor d Numbe r: [id number] Order ing MD: RICCARDO HARTLEY AM Date Colle cted : 2022 Date Recei balta : 2022 Date Repor harsh : 02/23 Exam: Biops y Acces heath# : [id number] Labor atory #: [id number] Copie s To: Techn ician : Clini yobani Histo ry Benig n prost atic hyper plasi a, urine reten tion Previ ous Patie nt Histo ry and Files ROBERTO MORAN ([birth year] 9/[birth year] 9 M) i??SS N: [id number] ?? 1. S23-0 32025 , DateC ollec harsh: 06/22 A: SPLEN IC FLEXU RE BIOPS Y Diagn osis: Colon ic type mucos a with no signi fican t histo patho logic abnor malit ies ROGELIO 2. S22-0 39268 , DateC ollec harsh: 12/15 A: COLON , POLYP , 12CM Diagn osis: Hyper plast ic polyp . B: COLON , POLYP , 7CM Diagn osis: Hyper plast ic polyp . C: COLON , POLYP , 5CM Diagn osis: Hyper plast ic polyp . 3. S21-0 17781 , DateC ollec harsh: 09/29 A: RIGHT [...] Bernadine n: - Uninv olved by invas lenoor carci noma Dista nce of Tumor from [...] nal Lymph Nodes (pN): pN1a 4. S21-0 76833 , DateC ollec harsh: 09/25 A: CECUM [...] or high- grade dyspl albino 5. S21-0 06884 , DateC ollec harsh: 07/10 A: ANTRU M, BIOPS Y Diagn osis: React leonor gastr opath y and mild chron ic gastr itis with intes tinal Legal ly authe ntica harsh by ARNAUD RENE MD 02-23 15:53 :00 metap lasia Negat leonor for dyspl albino FLP/p ah 6. S19-0 01327 , Date ollec harsh: 09/07 A: SKIN, [...] red by Arnaud mays Jr., MCindyD. at [facility], [address] [place] [address] . Final Diagn osis BENIG N PROST ATIC HYPER PLASI A EJT/S M Stain *Recu t-PCL ;[place]PT[place] [address] Legal ly authe ntica harsh by ARNAUD RENE MD 02-23 15:53 :00 Not Available [facility] (Pre[facility]Op [facility]) [address] [place] [address] [place], [address], 02/23/2023 16:17:04 02/20/20 23 02/19/2023 CBC W/ AUTO DIFF WBC 7.57 K/uL 4.5-11 .5 Not Available [facility] (Pre[facility]Op [facility]) [address] [place] [address] [place], [address], 02/19/2023 06:08:08 02/20/2002/19/2023 CBC W/ AUTO DIFF RBC 3.38 M/uL 4.0-5. 4 low Not Available [facility] (Pre[facility]Op [facility]) [address] [place] [address] [place], [address], 02/19/2023 06:08:08 02/20/2002/19/2023 CBC W/ AUTO DIFF HGB 9.5 g/dL 14.0-1 8.0 low Not Available [facility] (Pre[facility]Op [facility]) [address] [place] [address] [place], [address], 02/19/2023 06:08:08 02/20/20 23 02/19/2023 CBC W/ AUTO DIFF HCT 28.8 % 40-54 low Not Available [facility] (Pre-Op Clinic) [address] [place] [address] [place], [address], 02/19/2023 06:08:08 02/20/2005 0302/19/2023 CBC W/ AUTO DIFF MCV 85.2 fL 80.0-1 00.0 Not Available [facility] (Pre[facility]Op [facility]) [address] [place] [address] [place], [address], 02/19/2023 06:08:08 02/20/20 23 02/19/2023 CBC W/ AUTO DIFF MCH 28.1 pg 26.0-3 2.0 Not Available [facility] (Pre[facility]Op [facility]) [address] [place] [address] [place], [address], 02/19/2023 06:08:08 02/20/2002/19/2023 CBC W/ AUTO DIFF MCHC 33.0 g/dL 32.0-3 6.0 Not Available [facility] (Pre-Op Clinic) [address] [place] [address] [place], [address], 02/19/2023 06:08:08 02/20/2002/19/2023 CBC W/ AUTO DIFF RDW 14.7 % 11.5-1 4.5 high Not Available [facility] (Pre-Op Clinic) [address] [place] [address] [place], [address], 02/19/2023 06:08:08 02/20/2002/19/2023 CBC W/ AUTO DIFF platelet count 244 K/uL 142-42 4 Not Available [facility] (Pre-Op Clinic) [address] [place] [address] [place], [address], 02/19/2023 06:08:08 02/20/2002/19/2023 CBC W/ AUTO DIFF MPV 9.1 fL 6.8-10 .2 Not Available [facility] (Pre-Op Clinic) [address] [place] [address] [place], [address], 02/19/2023 06:08:08 02/20/2002/19/2023 CBC W/ AUTO DIFF neutrophil % 81.2 % 50-70 high Not Available [facility] (Pre-Op Clinic) [address] [place] [address] [place], [address], 02/19/2023 06:08:08 02/20/20 23 02/19/2023 CBC W/ AUTO DIFF lymphocyte % 5.3 % 18.0-4 2.0 low Not Available [facility] (Pre[facility]Op [facility]) [address] [place] [address] [place], [address], 02/19/2023 06:08:08 02/20/2002/19/2023 CBC W/ AUTO DIFF monocyte % 10.2 % 2.0-11 .0 Not Available [facility] ([facility]Op [facility]) [address] [place] [address] [place], [address], 02/19/2023 06:08:08 02/20/2002/19/2023 CBC W/ AUTO DIFF eosinophil % 2.6 % 1.0-3. 0 Not Available [facility] (Pre-Op [facility]) [address] [place] [address] [place], [address], 02/19/2023 06:08:08 02/20/2002/19/2023 CBC W/ AUTO DIFF basophil % 0.4 % 0.0-2. 0 Not Available [facility] (Pre[facility]Op [facility]) [address] [place] [address] [place], [address], 02/19/2023 06:08:08 02/20/2002/19/2023 CBC W/ AUTO DIFF immature granulocytes % 0.3 % 0.0-0. 8 Not Available [facility] (Pre-Op Clinic) [address] [place] [address] [place], [address], 02/19/2023 06:08:08 02/20/2002/19/2023 CBC W/ AUTO DIFF nucleated red blood cells % 0.0 % Not Available [facility] (Pre-Op Clinic) [address] [place] [address] [place], [address], 02/19/2023 06:08:08 12/09/20 23 02/19/2023 CBC W/ AUTO DIFF neutrophil # 6.15 K/uL Not Available [facility] ([facility]Op [facility]) [address] [place] [address] [place], [address], 02/19/2023 06:08:08 02/20/20 23 02/19/2023 CBC W/ AUTO DIFF lymphocyte # 0.40 K/uL Not Available [facility] (Pre[facility]Op [facility]) [address] [place] [address] [place], [address], 02/19/2023 06:08:08 02/20/20 23 02/19/2023 CBC W/ AUTO DIFF monocyte # 0.77 K/uL Not Available [facility] (Pre-Op Clinic) [address] [place] [address] [place], [address], 02/19/2023 06:08:08 02/20/20 23 02/19/2023 CBC W/ AUTO DIFF eosinophil # 0.20 K/uL Not Available [facility] (Pre[facility]Op [facility]) [address] [place] [address] [place], [address], 02/19/2023 06:08:08 02/20/20 23 02/19/2023 CBC W/ AUTO DIFF basophil # 0.03 K/uL Not Available [facility] (Pre-Op Clinic) [address] [place] [address] [place], [address], 02/19/2023 06:08:08 02/20/20 23 02/19/2023 CBC W/ AUTO DIFF immature gramulocytes # 0.02 K/uL Not Available [facility] (Pre-Op Clinic) [address] [place] [address] [place], [address], 02/19/2023 06:08:08 02/20/20 23 02/19/2023 CBC W/ AUTO DIFF nucleated red blood cells # 0.00 k/uL Not Available [facility] (Pre-Op Clinic) [address] [place] [address] [place], [address], 02/19/2023 06:08:08 02/20/20 23 02/19/2023 CBC W/ AUTO DIFF manual differential NO Not Available [facility] (Pre[facility]Op [facility]) [address] [place] [address] [place], [address], 02/19/2023 06:08:08 02/20/20 23 02/19/2023 CBC W/ AUTO DIFF note Unles s other hernandez noted testi ng perfo rmed at: [facility] [address] [place] [address] Arnaud mays MD Not Available [facility] (Pre[facility]Op [facility]) [address] [place] [address] [place], [address], 02/19/2023 06:08:08 02/20/20 23 02/19/2023 BASIC METAB OLIC PANEL sodium 139 mmol/ L 137-14 7 Not Available [facility] (Pre[facility]Op Clinic) [address] [place] [address] [place], [address], 02/19/2023 06:44:15 02/20/20 23 02/19/2023 BASIC METAB OLIC PANEL potassium 4.3 mmol/ L 3.5-5. 1 Not Available [facility] (Pre-Op Clinic) [address] [place] [address] [place], [address], 02/19/2023 06:44:15 02/20/20 23 02/19/2023 BASIC METAB OLIC PANEL chloride 108 mmol/ L 98-110 Not Available [facility] (Pre-Op Clinic) [address] [place] [address] [place], [address], 02/19/2023 06:44:15 02/20/20 23 02/19/2023 BASIC METAB OLIC PANEL carbon dioxide 26 mmol/ L 21-30 Not Available [facility] (Pre-Op Clinic) [address] [place] [address] [place], [address], 02/19/2023 06:44:15 02/20/20 23 02/19/2023 BASIC METAB OLIC PANEL anion gap 5 mmol/ L 6-14 low Not Available [facility] ([facility]Op [facility]) [address] [place] [address] [place], [address], 02/19/2023 06:44:15 02/20/20 23 02/19/2023 BASIC METAB OLIC PANEL glucose 95 mg/dL 70-115 Not Available [facility] (Pre[facility]Op [facility]) [address] [place] [address] [place], [address], 02/19/2023 06:44:15 02/20/20 23 02/19/2023 BASIC METAB OLIC PANEL BUN 32 mg/dL 9-20 high Not Available [facility] ([facility]Op [facility]) [address] [place] [address] [place], [address], 02/19/2023 06:44:15 02/20/20 23 02/19/2023 BASIC METAB OLIC PANEL creatinine 1.7 mg/dL 0.5-1. 5 high Not Available [facility] ([facility]Op [facility]) [address] [place] [address] [place], [address], 02/19/2023 06:44:15 02/20/20 23 02/19/2023 BASIC METAB OLIC PANEL BUN/creatini ne ratio 19 ratio 10-20 Not Available [facility] ([facility]Op [facility]) [address] [place] [address] [place], [address], 02/19/2023 06:44:15 02/20/20 23 02/19/2023 BASIC METAB OLIC PANEL glom filtration rate TNP mL/mi n >60- GFR has only been valid ated for patie nts 18-70 years of age. Not Available [facility] (Pre[facility]Op [facility]) [address] [place] [address] [place], [address], 02/19/2023 06:44:15 02/20/20 23 02/19/2023 BASIC METAB OLIC PANEL osmolality (calculated) 296 mosmo l/kg 275-30 1 OSMOL ALITY IS A CALCU LATIO N UTILI ZING THE SERUM /PLAS MA SODIU M, GLUCO SE AND UREA NITRO GEN (BUN) LEVEL S. FOR THE MOST ACCUR ATE RESUL T A MEASU RED SERUM OSMOL ALITY IS CLAUDIO FUNG. Not Available [facility] (Pre[facility]Op [facility]) [address] [place] [address] [place], [address], 02/19/2023 06:44:15 02/20/20 23 02/19/2023 BASIC METAB OLIC PANEL calcium 8.5 mg/dL 8.5-10 .8 Not Available [facility] ([facility]Op [facility]) [address] [place] [address] [place], [address], 02/19/2023 06:44:15 02/20/20 23 02/19/2023 BASIC METAB OLIC PANEL note Unles s other hernandez noted testi ng perfo rmed at: [facility] [address] [place] [address] Arnaud mays MD Not Available [facility] ([facility]Op [facility]) [address] [place] [address] [place], [address], 02/19/2023 06:44:15 04/29/19 24 04/29/2023 CULTU RE URINE results [facility] 04-30 600 >100, 000 COL/M L Gram Negat leonor Rods Not Available [facility] (Lab Registration) [address] [place] [address] [place], [address], 04/30/2023 06:02:04 04/29/19 24 04/29/2023 CULTU RE URINE note Unles s other hernandez noted testi ng perfo rmed at: [facility] [address] [facility] [place] [address] [phone] Arnaud mays MD CLIA: [id number] Not Available [facility] (Lab Registration) [address] [place] [address] [place], [address], 04/30/2023 06:02:04 04/29/19 24 04/29/2023 CULTU RE URINE culccur ===== ===== ===== ===== ===== ===== ===== ===== ===== ===== ===== ===== ===== ===== ===== ===== ===== ===== ===== ===== ===== ===== ===== ===== Speci men NO.: [id number] Exam Statu s: Final Proce dure: [...] L Gram Negat leonor Rods Not Available [facility] (Lab Registration) [address] , [place], [address], 05/01/2023 07:47:10 04/29/19 24 04/29/2023 CULTU RE URINE note Unles s other hernandez noted testi ng perfo rmed at: [facility] [address] [place] [address] [phone] Arnaud mays MD CLIA: [id number] Not Available [facility] (Lab Registration) [address] , [place], [address], 05/01/2023 07:47:10 04/29/19 24 04/29/2023 bladd er scan (PROC ) Calculated Residual Urine: 699 ML Not Available [address], [address], 04/29/2023 11:45:28 04/29/19 24 04/29/2023 urina lysis , dipst ick Leukocytes (reference range) large Not Available [address], [address], 04/29/2023 11:44:38 04/29/19 24 04/29/2023 urina lysis , dipst ick Nitrite (reference range:) positi ve Not Available [address], [address], 04/29/2023 11:44:38 04/29/19 24 04/29/2023 urina lysis , dipst ick Urobilinogen (reference range) 1 Not Available [address], [address], 04/29/2023 11:44:38 04/29/19 24 04/29/2023 urina lysis , dipst ick Protein (reference range) 300 Not Available [address], [address], 04/29/2023 11:44:38 04/29/19 24 04/29/2023 urina lysis , dipst ick pH (reference range 5-8.5) 6.5 Not Available [address], [address], 04/29/2023 11:44:38 04/29/19 24 04/29/2023 urina lysis , dipst ick Blood (reference range:) large Not Available [address], [address], 04/29/2023 11:44:38 04/29/19 24 04/29/2023 urina lysis , dipst ick Specific Levels (reference range) 1.020 Not Available [address], [address], 04/29/2023 11:44:38 04/29/19 24 04/29/2023 urina lysis , dipst ick Ketone (reference range) trace Not Available [address], [address], 04/29/2023 11:44:38 04/29/19 24 04/29/2023 urina lysis , dipst ick Bilirubin (reference range) small Not Available [address], [address], 04/29/2023 11:44:38 04/29/19 24 04/29/2023 urina lysis , dipst ick Glucose (reference range) negati ve Not Available [address], [address], 04/29/2023 11:44:38 02/22/20 23 02/21/2023 cardi ac clear ance* No observ ation record ed. [facility] [address] [place] [address] [place], [address], 02/24/2023 10:25:26 03/25/19 24 03/25/2023 CT, chest , w/o contr ast [facility] [address] [place] [address] Phone: Fax: Name: ROBERTO TOUSSAINT Exam Date: 024 : 949 Age 72 Gender : M Access ion: [id number] Physic amalia: JUSTO VU Facili ty: [facility] Facili ty HSV: Outpat ient Exam: [...] you for referr ing [facility] Legall y authen ticate d by POPE TIFFANY Collins 03-25 10:48: 47 CC'ed Logic: Orderi ng Provid er: MIRELLA KEMP Attend ing Provid er: MIRELLA KEMP Referr ing Provid er: MIRELLA KEMP Admitt ing Provid er: MIRELLA KEMP [email or web address] [facility] - Physical Therapy [address] [place], [address], 04/05/2023 08:15:45 01/16/20 24 11/11/2023 PET-C T, skull base to mid-t high scan No observ ation record ed. Psychiatric ([facility]) [address] [facility], [place], [address], 01/20/2024 11:35:25 06/02/19 25 06/01/2024 CT, chest , w/o contr ast No observ ation record ed. [address], [place], [address], 06/04/2024 15:30:09 Result Notes Documentation Provider Name and Address Organization Details Recorded Time Ct, Chest, W/o Contrast : [facility] [address] [place] [address] Name: ROBERTO TOUSSAINT Exam Date: 03/25/2023 : 1950 Age 72 Gender: M Physician: JUSTO VU Facility: [facility] Facility HSV: Outpatient Exam: CT CHEST W/O [...] Thank you for referring ROBERTO TOUSSAINT to [facility]. Legally authenticated by POPE TIFFANY Collins 2023-03-25 10:48:47 CC'ed Logic: Ordering Provider: MIRELLA KEMP Attending Provider: MIRELLA KEMP Referring Provider: MIRELLA KEMP Admitting Provider: MIRELLA VU MD [address] 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 Anabella vyas [place] - [place] 4 10:52:11 Chronic renal failure 99062105 Active 2022 SHAREE Lopez - [place] - [place] 4 10:52:11 Heart failure 69650268 Active 2022 Tefanie Saulo null, [place] 4 10:52:11 Diastolic dysfunction 8282274 Active 2022 Anabella Vernon [place] 4 10:52:11 Anemia 462456384 Active 2022 Anabella Vernon [place] 4 10:52:11 Acute stroke 1502921562687 04 Active 2022 Anabella [place] 4 10:52:11 Disease of liver 194950119 Active 2022 Anabella Vernon [place] 4 10:52:11 Hypercholes terolemia 57012205 Active 2022 Anabella vyas[place] 4 10:52:11 Gastroesoph ageal reflux disease 254577859 Active 2022 Anabella Vernon [place] 4 10:52:11 Kidney stone 55621543 Active 2022 Anabella Vernon [place] 4 10:52:11 Glaucoma 01737619 Active 2022 Anabella vyas[place] 4 10:52:11 Arthritis 9525992 Active 2022 Anabella Vernon [place] 4 10:52:11 Hypertensiv e disorder 83071626 Active 2022 Anabella Vernon [place] 4 10:52:11 Benign prostatic hyperplasia with outflow obstruction 170289486 Active Anabella Vernon [place] 4 10:52:11 Problem Notes Documentation Provider Name and Address Organization Details Recorded Time Shipping Packer Consult Note : SW met with pt [...] will offer supports ongoing. Danielle Ba lilliamSHAREE [facility] & [place] 04/04/2024 07:14:40 Procedures Surgical History Date Name Laterality Status Provider Name and Address Organization Details Recorded Time 06/10/19 23 Cystoscopy-Male completed Venkatesh Hartley Jr, MD [address] [place] [address], [address], [place], [address], SHAREE [facility] & [place] 06/09/2022 16:55:32 ureteroscopy completed Anabella TOLLIVER [facility] & [place] 06/09/2022 13:23:50 Knee arthroscopy/surg frederick completed Anabella Vernon SHAREE [facility] & [place] 06/09/2022 13:23:58 Imaging Results None recorded. Procedure Notes None recorded. Medical Equipment None Reported. Allergies Allergen ID Allergen Name Allergen Category Reaction Reaction Severity Criticality Documentation Date Start Date Code Code System Note Provider Name and Address Organization Details Recorded Time [id number] No known allergy (situatio n) Not available Not available Not available Not available 03/23/2023 [id number] SNOMED Anabella vyas SHAREE [facility] & [place] 10:51:22 No known drug allergies Medications Name [...] [degF] Anabella TOLLIVER - LPNT - [place] [facility] & [place] 03/23/2023 10:51:14 Date Recorded Body temperature Body height Body mass index (BMI) Body weight Provider Name and Address Organization Details Last Updated DateTime 04/29/2023 97.9 [degF] 182.88 cm 33.2 kg/m2 326769.13 g Anabella HUNTER [facility] & [place] 04/29/2023 10:18:52 Date Recorded Body height Body mass index (BMI) Body weight Body temperature Provider Name and Address Organization Details Last Updated DateTime 05/27/2023 182.88 cm 28.5 kg/m2 78308.4 g 97.3 [degF] Salud Dixon [place] - LPNT [facility] & [place] 05/27/2023 11:23:11 Date Recorded Body height Body mass index (BMI) Body weight Body temperature Provider Name and Address Organization Details Last Updated DateTime 11/23/2023 182.88 cm 28.5 kg/m2 53759.4 g 97.7 [degF] Anabella Vernon [place] - LPNT [facility] & [place] 11/23/2023 09:14:40 Date Recorded Body temperature Provider Name a nd Address Organization Details Last Updated DateTime 01/28/2023 97.9 [degF] Anabella Vernon [place] - LPNT - [facility] & [place] 01/28/2023 13:10:38 Social History None recorded. Functional Status Question Answer Note LastModified by Organization D etails LastModified Time What is your level of alcohol consumption? None [email or web address] Information not available 06/02/2022 Mental Status None recorded. Family History Relationship Description Onset Age of this Age Resolved Age Notes LastModified by Organization Details LastModified Time Mother Family history unknown [email or web address] Not available 2022 13:23:21 Sister Family history unknown x3 [email or web address] Not available 2022 13:23:21 Brother Family history unknown [email or web address] Not available 2022 13:23:21 Father Malignant neoplastic disease [email or web address] Not available 2022 13:23:30 Medical History No medical history recorded. Past Encounters Encounter ID Performer Location Encounter Start Date Encounter Closed Date Diagnosis/Indication Diagnosis SNOMED-CT Code Diagnosis ICD10 Code Diagnosis Note [id number] Venkatesh Hartley Jr, MD [facility] [address] [address] 06/09/2022 13:36:19 06/09/2022 15:11:25 Retention of urine 425711309 R33.9 71-year-ol d male with multiple medical [...] cardiologi st who is Dr. Dodge in [place]. If he is deemed a reasonable candidate we will set him up for TURP. 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 His retention has been managed with a Jason catheter now for several months. States it is being changed on a monthly basis. Cardiac clearance was recently given per Dr. Nain bower as office at [facility]. Patient is not a great surgical candidate. He is on Xarelto. His cardiologi st has deemed him a reasonable surgical candidate. We will get a preop clearance from anesthesio logist at [facility]. We will stop his blood thinners prior to his TURP. We will start him on finasterid e today to help decrease any possible prostate bleeding. [id number] Venkatesh Hartley Jr, MD [facility] [address] [address] 03/23/2023 10:46:37 03/23/2023 11:42:10 Incomplete emptying of urinary bladder due to benign prostatic hypertrophy [id number] 83567 N40.1 patient with history of urinary retention secondary to prostate enlargemen t. He underwent a TURP at [facility] on February 18. He returns today [...] for the prolonged catheteriz ations and removal. [id number] Venkatesh Hartley Jr, MD [facility] [address] [address] 04/29/2023 10:18:10 04/29/2023 11:38:41 Recurrent urinary tract infection [id number] N39.0 Patient with urinary symptoms of frequency, urgency and hematuria. His urine appears infected. We will culture the urine and patient placed on a course of cefdinir today. He will follow up in 1 month. Incomplete emptying of urinary bladder due to benign prostatic hypertrophy [id number] 26414 N40.1 patient with history of urinary retention secondary to prostate enlargemen t. He underwent a TURP at [facility] on February 18. patient with complaints of frequency, urgency and gross hematuria. He has evidence of a urinary tract infection which may be contributi ng to his symptoms. We also discussed that hematuria, urgency and frequency could be normal sequela of his TURP. Patient also takes Xarelto for other medical issues. [id number] Venkatesh Hartley Jr, MD [facility] [address] [address] 05/27/2023 11:21:35 05/27/2023 12:30:45 Incomplete emptying of urinary bladder due to benign prostatic hypertrophy [id number] 48285 N40.1 patient with history of urinary retention secondary to prostate enlargemen t. He underwent a TURP at [facility] on February 18. He states he is voiding better and he is now ambulatory but PVR still elevated at 671 cc. Recurrent urinary tract infection [id number] N39.0 Pt with uti's due to incomplete emptying. To increase fluids and observe timed voiding. [id number] Venkatesh Hartley Jr, MD [facility] [address] [address] 11/23/2023 09:08:44 11/23/2023 09:50:37 Incomplete emptying of urinary bladder due to benign prostatic hypertrophy [id number] 09836 N40.1 patient with history of urinary retention secondary to prostate enlargemen t. He underwent a TURP at [facility] on February 18. He states he is voiding better and he is now ambulatory but PVR still elevated due to bladder decompensa tion. Recurrent urinary tract infection [id number] N39.0 Pt with uti's due to incomplete [...] Hawkins Member ID Guarantor Name 07/06/2024 2 MEDICAID-[facility] [place] CHOICES - FFS/TRADITIO NAL Roberto Toussaint [id number] Roberto Toussaint 07/06/2024 1 [place] Roberto Toussaint [id number] Roberto Toussaint 11/23/2023 2 MEDICAID-[facility] HEALTH CHOICES - FFS/TRADITIO NAL Roberto Toussaint [id number] Roberto Toussaint Notes Date Note Type Note [...] recommended. Months later he is seen his java grails developer and has been deemed a acceptable risk for the TURP. He continues on Xarelto. He is legally blind. [place] Venkatesh Hartley Jr, MD [address] [place] [address], [address], [place], [address], [facility] - [place] & [place] 01/28/2023 14:59:58 03/23/2023 text/html patient is a 72-year-old black male with history of urinary retention. 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 There was a large median lobe that [...] MD [address], [address], [place], [address], [place] [facility] 03/23/2023 12:37:30 04/29/2023 text/html Patient is a 72-year-old black male with a history of urinary retention. He underwent a TURP on February 18, 2023 at [facility]. Patient had a very large median lobe [...] MD [address], [address], [place], [address], [facility] & [place] 04/29/2023 16:45:15 05/27/2023 text/html Pt with h/o [...] MD [address], [address], [place], [address], [facility] & [place] 08/21/2023 23:04:36 11/23/2023 text/html Patient is a [...] as a result. Venkatesh Hartley Jr, MD [address] [place] [address], [address], [place], [address], [facility] - [place] & [place] 11/23/2023 12:51:08
--- OUTSIDE RECORDS SUMMARY | 2024-09-09 21:14 | XMS_ITS | Encounter Summary ---
Author Organization Healthcare Address [address] [place] [address] Care Team Providers Care Phlebotomist Prn Name Role Phone Edi Chase MD Primary Care Provider [phone] Sam Sanchez MD Unavailable Cayetano Cannon MD Unavailable [phone] Encounter Details Date Type Department Care Team (Late st Contact Info) Description 07/08/2022 Orders Only External Location [address] [place] [address] Armani Lopez [place], PA [address] [place] [address] Social History Tobacco Use Types [...] AM EDT Appointment [facility] H Neurophysiology [address] [facility] [address] [place] [address] 10/26/2024 1:20 PM EDT Office Visit [address], [place] [address] Florentin Tillman MD [address] [place] [address] documented as of this encounter Procedures Procedure [...] documented as of this encounter Care Teams Phlebotomist Prn Relationship Specialty Start Date End Date Edi Chase MD [address] [place] [address] PCP - General 03/14/20 Sam Sanchez MD [address] [place] [address] Consulting Physician Pulmonary Disease 08/11/22 Cayetano Cannon MD [address] [place] [address] Referring Physician 08/11/22 documented as of this encounter
--- OUTSIDE RECORDS SUMMARY | 2024-09-09 21:14 | XMS_ITS | Clinical Summary ---
Author Organization [facility] [[email or web address]] [facility] Address [address] [address] Phone Care Team Providers Care Director Of Career Resources Name Role Phone Unavailable Primary Care Provider [...] 50+ (1 of 2 - PCV) 08/31/1967 Zoster (1 of 2) 1998 RSV or 60+ (1 - 1-d ose [...] this topic Medical Devices Implanted Type Area Hip Hop Performers Device Identifier Shelf Expiration Date Model / Serial / Lot Stent Coronary Vision Rx 3.50mm X 18mm - [id number] Implanted:Qty: 1 on 03/16/2010 at [facility] Explanted:at [facility] (Quantity not on file) Stent-Vis ion [facility]:VASC DEV [id number] / / [id number] [place] PART [place] B
--- OUTSIDE RECORDS SUMMARY | 2024-09-09 21:14 | XMS_ITS | Encounter Summary ---
Author Organization [facility] Address [address] [place] [address] Care Team Providers Care Manager Dairy Name Role Phone Edi Chase MD Primary Care Provider [phone] Sam Sanchez MD Unavailable [phone] Cayetano Cannon MD Unavailable [phone] Encounter Details Date Type Department Care [...] How often do you attend chur or methodist services? Patient unable to answer 12/26/2023 Do you belong to any clubs o r organizations such as yarsani groups, unions, fraternal or athletic groups, or [...] Recorded Patient Health Questionnaire-2 Score 1 08/27/2024 [facility] - Occupational Stress Questionnaire Answer Date [...] AM EDT Appointment P[facility] H Neurophysiology [address] [facility] [address] [place] [address] 10/26/2024 1:20 PM EDT Office Visit [facility] [address] [place] [address] Florentin Tillman MD [address] [place] [address] documented as of this encounter [...] documented as of this encounter Care Teams Manager Dairy Relationship Specialty Start Date End Date Edi Chase MD [address] [place] [address] PCP - General 03/14/20 Sam Sanchez MD [address] [place] [address] Consulting Physician Pulmonary Disease 08/11/22 Cayetano Cannon MD [address] [place] [place] [id number] Referring Physician 08/11/22 documented as of this encounter
--- OUTSIDE RECORDS SUMMARY | 2024-09-09 21:14 | XMS_ITS | Encounter Summary ---
Author Organization Healthcare Address [address] [place] [address] Care Team Providers Care Logistics Vice President Name Role Phone Edi Chase MD Primary Care Provider [phone] Sam Sanchez MD Unavailable [phone] Cayetano Cannon MD Unavailable [phone] Encounter Details Date Type Department Care Team (Late st Contact Info) Description 12/12/2023 Orders Only External Location [address] [place] [address] Provider, External Social History Tobacco Use Types [...] AM EDT Appointment P[facility] H Neurophysiology [address] [facility] [address] [place] [address] 10/26/2024 1:20 PM EDT Office Visit [facility] [address] [place] [address] Florentin Tillman MD [address] [place] [address] documented as of this encounter Procedures Procedure [...] documented as of this encounter Care Teams Logistics Vice President Relationship Specialty Start Date End Date Edi Chase MD [address] [place] [address] PCP - General 03/14/20 Sam Sanchez MD [address] [place] [address] Consulting Physician Pulmonary Disease 08/11/22 Cayetano Cannon MD [address] [place] [address] Referring Physician 08/11/22 documented as of this encounter
--- OUTSIDE RECORDS SUMMARY | 2024-09-09 21:14 | XMS_ITS | Encounter Summary ---
Author Organization [facility] Address [address] [id number] Care Team Providers Care Coding Analyst Name Role Phone Edi Chase MD Primary Care Provider [phone] Sam Sanchez MD Unavailable [phone] Cayetano Cannon MD Unavailable [phone] Encounter Details Date Type Department Care Team (Late st Contact Info) Description 08/22/2024 Telephone [place] [facility] [address], [address] [place] [address] Cuong Catherine MD [address] [place] [id number] Social History Tobacco Use Types Packs/Day Years [...] often do you attend chur ch or voodoo services? Patient unable to answer 12/26/2023 Do you belong to any clubs o r organizations such as baptism groups, unions, fraternal or athletic groups, or [...] one occasion? Patient unable to answer 12/26/2023 [facility] ional [facility] - Occupational Stress [...] place to sleep or slept in a [place] care facility (including now)? Patient unable to answer 12/26/2023 [...] confirm 6-16 appt. Spoke with Devin at [facility], she will check with butter maker. Gave phone number and address. documented in this encounter Plan of Treatment Upcoming Encounters Date Type Department Care Team ([facility] st Contact Info) Description 10/16/2024 8:00 AM EDT Appointment [facility] H Neurophysiology [address] [facility] [address] [place] [address] 10/26/2024 1:20 PM EDT Office Visit [facility] [address] [place] [address] Florentin Tillman MD [address] [place] [address] documented as of this encounter Visit Diagnoses [...] documented as of this encounter Care Teams Coding Analyst Relationship Specialty Start Date End Date Edi Chase MD [address] [place] [address] PCP - General 03/14/20 Sam Sanchez MD [address] [place] [address] Consulting Physician Pulmonary Disease 08/11/22 Cayetano Cannon MD [address] [place] [address] Referring Physician 08/11/22 documented as of this encounter
--- OUTSIDE RECORDS SUMMARY | 2024-09-09 21:14 | XMS_ITS | Encounter Summary ---
Author Organization Healthcare Address [address] [place] [address] Care Team Providers Care Microsoft Crm Developer Name Role Phone Edi Chase MD Primary Care Provider [phone] Sam Sanchez MD Unavailable [phone] Cayetano Cannon MD Unavailable [phone] Encounter Details Date Type Department Care Team (Late st Contact Info) Description 12/14/2023 Orders Only External Location [address] [place] [address] Cedric Hinton MD [address] [...] EDT Appointment P[facility] H Neurophysiology [address] [facility] [address] [place] [address] 10/26/2024 1:20 PM EDT Office Visit [facility] [address] [place] [address] Florentin Tillman MD [address] [place] [address] documented as of this encounter Procedures Procedure [...] documented as of this encounter Care Teams Microsoft Crm Developer Relationship Specialty Start Date End Date Edi Chase MD [address] [place] [address] PCP - General 03/14/20 Sam Sanchez MD [address] [place] [address] Consulting Physician Pulmonary Disease 08/11/22 Cayetano Cannon MD [address] [facility] [address] [place] [address] Referring Physician 08/11/22 documented as of this encounter
--- OUTSIDE RECORDS SUMMARY | 2024-09-09 21:14 | XMS_ITS | Clinical Summary ---
Author Organization Healthcare Address [address] [place] [address] Care Team Providers Care Instructor Warper Name Role Phone Edi Chase MD Primary Care Provider [phone] Sam Sanchez MD Unavailable [phone] Cayetano Cannon MD Unavailable [phone] Allergies No known active allergies Medications [...] (one) time each day. Active HYDROcodone-rachel taminophen ([place]illa) 5-325 MG tablet Take 1 tablet (5 [...] Team Description 08/27/2024 1:00 PM EDT Consult [place] [facility] [address], 1st [place] [address] Cuong Catherine MD Dizziness on standing (Primary Dx); Nonintractable episodic headache, unspecified headache type; Cerebrovascular accident (CVA), unspecified mechanism (CMS/HCC) 08/27/2024 Travel 08/22/2024 Telephone [place] [facility] [address], [address] [place] [address] Cuong Catherine MD from Last [...] answer 12/26/2023 How often do you attend [facility] or voodoo services? Patient unable to answer 12/26/2023 Do you belong to any clubs o r organizations such as latter-day groups, unions, fraternal or athletic groups, or [...] Questionnaire-2 Score 1 08/27/2024 [facility] - Occupational Stress Questionnaire Answer Date Recorded [...] place to sleep or slept in a long-term (including now)? Patient unable to answer 12/26/2023 Utilities Answer Date Recorded In the past 12 months has [employer], gas, oil, or water company threatened to [...] Appointment P[facility] H Neurophysiology 800 [facility] [address] [address] 10/26/2024 1:20 PM EDT Office Visit [facility] [address] [place] [address] Florentin Tillman MD [address] [place] [address] Health Maintenance Due Date Last Done Comments [facility]-Medicare Annual Wellness (AWV) 1950 [facility]-/Child/Adol SDOH Screenings 1950 [facility]-DTaP,Tdap,and Td Vaccines (1 - Tdap) 08/31/1967 [facility]-Pneumococcal Vaccine: 50+ Years (1 of 2 - PCV) 08/31/1967 [facility]-Zoster Vaccines (1 of 2) 08/31/1967 [facility]-MIWIP-37 Vaccine (3 - Pfizer risk series) 05/10/2020 [...] Antibody Negative Negative 12/23/2023 6:55 PM EDT [facility] Blood Venous blood specimen / Unknown Venipuncture / Unknown 12/23/2023 5:39 PM EDT 12/23/2023 6:04 PM EDT Med Lyn MD LAB BLOOD ORDERABLES Final Result Performing Organization Address City/[facility]/ZIP Co de Phone Number [facility] [address] [place] [address] * (ABNORMAL) Hemoglobin A1c (12/23/2023 5:39 PM EDT) Hemoglobin A1c 6.3(H) <5.7 % 12/24/2023 12:22 AM EDT [facility] Blood Venous blood specimen / Unknown Venipuncture / Unknown 12/23/2023 5:39 PM EDT 12/23/2023 5:55 PM EDT Narrative [facility] - 12/24/2023 12:22 AM EDT HA1C Interpretive Data: Diagnosis of Diabetes: Diabetic > or = 6.5% Pre-diabetic 5.7 to 6.4% Non-diabetic < or = 5.6% Glycemic Targets for Type I and Type II Diabetics: Non- Adults <7.0% Adults <6.0% Children and Adolescents <7.5% Source: [place] Diabetes [employer]. Standards of medical care in diabetes,2017. Diabetes Care.2017:40 (suppl 1):S1-S135. HbA1c assay performed by an ion-exchange chromatography method that is certified traceable to the DCCT. 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 Yes Care Teams Instructor Warper Relationship Specialty Start Date End Date Edi Chase MD [address] [place] [address] PCP - General 03/14/20 Sam Sanchez MD [address] [place] [address] Consulting Physician Pulmonary Disease 08/11/22 Cayetano Cannon MD [address] [place] [address] Referring Physician 08/11/22
[2024-09-09 21:23] LABS: Lactate Venous 1.6 mmol/L (0.4-2.0); VBG HCO3 26.2 mmol/L (23-30); VBG PCO2 47.3 mmol/L (35-51); VBG PH 7.36 mmol/L (7.31-7.41); VBG PO2 40.6 mmol/L (28-40)
[2024-09-09 21:29] LABS: Hematocrit 31.9 % (42.0-52.0); Hemoglobin 10.2 g/dL (14.1-18.0); Immature Granulocytes % 0.2 %; Mean Corpuscular HGB Conc 32.0 g/dL (31.8-35.4); Mean Corpuscular Hemoglobin 29.0 pg (27.0-31.2); Mean Corpuscular Volume 90.6 fl (80-94); Nucleated Red Blood Cells % 0 %; Platelet Count 242 K/mm3 (142-424); Red Blood Count 3.52 M/mm3 (4.60-6.20); Red Cell Distribution Width-SD 47.8 fL; White Blood Count 5.7 K/mm3 (4.8-10.8)
--- NOTE | 2024-09-09 21:30 | [facility].EDCP ---
Discharge Plan Disposition Patient Disposition: Admitted Prescriptions Prescriptions: No Action Eliquis 2.5 mg tablet 2.5 mg PO BID Qty: 60 2RF Trelegy Ellipta 100-62.5-25 mcg blister with device 1 inh inhalation DAILY Qty: 60 2RF loperamide 2 mg capsule 2 mg PO Q6H PRN (Reason: Constipation) hydrochlorothiazide 25 mg tablet 25 mg PO DAILY Systane Nighttime 94-3 % ointment 1 applic ophthalmic (eye) HS finasteride 5 mg tablet 5 mg PO DAILY Qty: 90 3RF tamsulosin 0.4 mg capsule 0.4 mg PO HS 90 Days Qty: 90 1RF metoprolol succinate 100 mg tablet extended release 24 hr 100 mg PO DAILY fluticasone propionate [Flonase Allergy Relief] 50 mcg/actuation spray,suspension 2 spray intranasal DAILY Rx Instructions: administer into each nostril escitalopram oxalate [Lexapro] 5 mg tablet 5 mg PO DAILY Lokelma 10 gram powder in packet 10 g PO DAILY sennosides [Senna Laxative] 8.6 mg tablet 17.2 mg PO HS ipratropium-albuterol 0.5 mg-3 mg(2.5 mg base)/3 mL solution for nebulization 3 ml inhalation QID PRN (Reason: breathing) lidocaine [Lidocaine Pain Relief] 4 % adhesive patch,medicated 1 patch TOPICAL DAILY ondansetron HCl 4 mg Tablet 4 mg PO Q4H PRN (Reason: Nausea) guaifenesin 100 mg/5 mL Liquid 200 mg PO Q6H PRN (Reason: Cough) albuterol sulfate [Ventolin HFA] 90 mcg/actuation HFA aerosol inhaler 1 puff INHALATION Q4H PRN (Reason: soa) Acid Gone Antacid 95-358 mg/15 mL suspension 30 ml PO Q6HP PRN (Reason: reflux) gabapentin 100 mg capsule 100 mg PO BID Qty: 60 5RF hydrocodone-acetaminophen 5-325 mg tablet 1 tab PO TID Qty: 90 0RF cetirizine 10 mg tablet 10 mg PO DAILY atorvastatin 10 mg tablet 10 mg PO HS isosorbide mononitrate 30 mg tablet extended release 24 hr 30 mg PO DAILY oxcarbazepine 300 mg tablet 300 mg PO BID ferrous sulfate 325 mg (65 mg iron) tablet 325 mg PO DAILY omeprazole 20 mg capsule,delayed release(DR/EC) 20 mg PO DAILY aspirin 81 mg tablet,chewable 81 mg PO DAILY multivitamin Tablet 1 tab PO DAILY timolol maleate 0.5 % drops 1 drp ophthalmic (eye) DAILY acetaminophen 500 mg Capsule 500 mg PO Q4HP PRN (Reason: pain/fever) Referrals Follow up/Referrals: Provider,Referral, MD [Primary Care Provider, Medical] - See instructions Clinical Impressions Clinical Impression: CHF exacerbation, Chest pain Print Language Print Language: Greek Discharge ED Provider: Roscoe Segal HPI General Chief Complaint: Chest Pain Stated Complaint: Chest Pain Time Seen by Provider: 09/09/24 21:11 Mode of Arrival: EMS Source of Information: Patient and EMS Description of Symptoms (Recalled from ER Triage Doc. by RN): pt presents from local long term for evaluation of intermittant chest pain that began approx 2 weeks ago. Pt reports pain left side of chest that radiates into left arm that is worse with exertion. Pt reports SOA that is chronic in nature with worsening the last couple of days. History of Present Illness HPI narrative: Please note that above description of symptoms, in this electronic medical record under categorization of recalled from ER triage doctor by RN are reflective of an initial nursing assessment, however, is not reflective of my full history and physical exam that was personally taken and clarified. Consequentially, this preceding description of symptoms, which may include the patient's categorized chief complaint in the EMR, do not reflect my personal clinical impression, and the ultimate description of history of present illness and patient stated complaints should be deferred to this section of the note. Unless stated otherwise or congruent with this section of the note, additional signs, symptoms, or incongruence should be interpreted as inaccurate with my clinical impression. Related Data Home Medications ?Medication ?Instructions ?Recorded ?Confirmed aspirin 81 mg chewable tablet 81 mg PO DAILY 06/09/23 09/09/24 atorvastatin 10 mg tablet 10 mg PO HS 06/09/23 09/09/24 cetirizine 10 mg tablet 10 mg PO DAILY 06/09/23 09/09/24 ferrous sulfate 325 mg (65 mg 325 mg PO DAILY 06/09/23 09/09/24 iron) tablet isosorbide mononitrate 30 mg 30 mg PO DAILY 06/09/23 09/09/24 tablet,extended release 24 hr omeprazole 20 mg capsule,delayed 20 mg PO DAILY 06/09/23 09/09/24 release oxcarbazepine 300 mg tablet 300 mg PO BID 06/09/23 09/09/24 acetaminophen 500 mg capsule 500 mg PO Q4HP PRN pain/fever 06/10/23 09/09/24 multivitamin 1 tab PO DAILY 06/10/23 09/09/24 timolol maleate 0.5 % eye drops 1 drp ophthalmic (eye) DAILY 06/10/23 09/09/24 escitalopram oxalate 5 mg tablet 5 mg PO DAILY 12/06/23 09/09/24 (Lexapro) guaifenesin 100 mg/5 mL oral liquid 200 mg PO Q6H PRN Cough 12/22/23 09/09/24 lidocaine 4 % topical patch 1 patch topical DAILY 12/22/23 09/09/24 (Lidocaine Pain Relief) ondansetron HCl 4 mg tablet 4 mg PO Q4H PRN Nausea 12/22/23 09/09/24 albuterol sulfate 90 mcg/actuation 1 puff inhalation Q4H PRN soa 02/14/24 09/09/24 aerosol inhaler (Ventolin HFA) hydrochlorothiazide 25 mg tablet 25 mg PO DAILY 02/14/24 09/09/24 loperamide 2 mg capsule 2 mg PO Q6H PRN Constipation 02/14/24 09/09/24 white petrolatum-mineral oil 94 1 applic ophthalmic (eye) HS 02/14/24 09/09/24 %-3 % eye ointment (Systane Nighttime) aluminum hydrox-magnesium carb 95 30 ml PO Q6HP PRN reflux 04/24/24 09/09/24 mg-358 mg/15 mL oral suspension (Acid Gone Antacid) sodium zirconium cyclosilicate 10 10 g PO DAILY 04/24/24 09/09/24 gram oral powder packet (Lokelma) fluticasone propionate 50 2 spray intranasal DAILY 06/26/24 09/09/24 mcg/actuation nasal spray,suspension (Flonase Allergy Relief) metoprolol succinate 100 mg 100 mg PO DAILY 06/26/24 09/09/24 tablet,extended release 24 hr ipratropium 0.5 mg-albuterol 3 mg 3 ml inhalation QID PRN breathing 09/04/24 09/09/24 (2.5 mg base)/3 mL nebulization soln sennosides 8.6 mg tablet (Senna 17.2 mg PO HS 09/04/24 09/09/24 Laxative) Previous Rx's ?Medication ?Instructions ?Recorded fluticasone fur. 100 mcg-umeclid 1 inh inhalation DAILY #60 ea 01/03/24 62.5 mcg-vilant 25 mcg inhalat.powder (Trelegy Ellipta) finasteride 5 mg tablet 5 mg PO DAILY #90 tabs 03/05/24 tamsulosin 0.4 mg capsule 0.4 mg PO HS 90 days #90 caps 03/05/24 apixaban 2.5 mg tablet (Eliquis) 2.5 mg PO BID #60 tabs 05/24/24 gabapentin 100 mg capsule 100 mg PO BID #60 caps 06/08/24 hydrocodone 5 mg-acetaminophen 325 1 tab PO TID #90 tabs 08/28/24 mg tablet Allergies Allergy/AdvReac Type Severity Reaction Status Date / Time No Known Allergies Allergy Verified 09/04/24 15:17 [facility] Disclaimer: The information contained in this section may have been updated after the patient was seen, as this information can be updated by other users. Medical History Lung cancer COPD mixed type PAF (paroxysmal atrial fibrillation) Knee pain, right Hyperkalemia Polycystic kidney UTI (urinary tract infection) Acute renal injury Jason catheter in place Pain in left arm Chronic hypoxic respiratory failure, on home oxygen therapy Hx of prostatic malignancy Colon cancer Knee pain Heart failure with preserved ejection fraction Peripheral edema Acute exacerbation of chronic obstructive pulmonary disease Adenocarcinoma of lung Chronic obstructive pulmonary disease CKD (chronic kidney disease) Stopped smoking with greater than 30 pack year history CVA (cerebral vascular accident) Blind Congestive heart failure Renal stones Gastroesophageal reflux 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) CVA (cerebral vascular accident) Obesity (BMI 30.0-34.9) Elevated left ventricular end-diastolic pressure (LVEDP) Diastolic dysfunction Pulmonary HTN Surgical History Hx of total knee arthroplasty History of bowel resection History of bronchoscopy History of ureteroscopy History of colonoscopy History of colectomy Family History Unknown Cancer self; post lung, prostate, and colon Other Family history of cancer Social History Smoking Status: Former smoker tobacco type: cigarettes packs per day: 1 alcohol intake: never substance use type: denies use current occupational status: disabled Travel in the last 8 weeks?: None caregiver/support person: Yes household members: none housing: long term lives independently: No marital status: single current occupation: [employer] current occupational exposures/hazards: No caffeine: Yes special milad needs: No agree to transfusion: No do you feel safe at home: Yes victim of physical abuse: No victim of emotional abuse: No victim of sexual abuse: No would you like helpful sources: No Have you lived/traveled outside [place] in past 30 days?: No Contact w/someone who lives/traveled outside [place] past 30 days?: No Exposure to someone with infectious disease in past 14 days?: No Do you have a fever (greater than 100.4 F or 38 C)?: No Have you tested positive for COVID-19?: No Exposed to someone with COVID-19 in past 14 days?: No Do you have a sore throat?: No Do you have a cough?: No Do you have any weakness?: No Do you have any diarrhea?: No Are you experiencing any unusual bleeding?: No Do you have any muscle aches/pain?: No Do you have any abdominal pain?: No Are you experiencing loss of taste or smell?: No Other Medical History Have you received the Flu Vaccine for this season: No Have you received the Pneumonia Vaccine: Yes (01/02/24) ROS Obtained: Yes All systems reviewed & no additional complaints except as documented Physical Exam General General appearance: alert Neck Neck exam: Present trachea midline Chest Chest inspection: Present normal inspection and symmetric chest wall rise Respiratory Respiratory exam: Present normal lung sounds bilaterally; Absent respiratory distress, wheezes, stridor, accessory muscle use or prolonged expiratory phase Cardiovascular Cardiovascular exam: Present regular rate, normal rhythm and other (Pulses equal and symmetric in upper and lower extremities) Extremities Exam Extremities exam: Present edema (Minimal nonpitting bilaterally) Neurological Exam Neurological exam: Present alert, oriented X3 and CN II-XII intact Skin Skin exam: Present warm and dry; Absent cyanosis, diaphoresis or pallor HEART Score HEART Score HEART Score assessment performed?: Yes History (anamnesis): Moderately suspicious ECG: Non-specific disturbance Age: >65 years Risk factors: 3 or more risk factors Troponin: </= normal limit HEART Score: 6 Critical Care Critical Care Time Critical Care Time: No Medical Decision Making Medical Records Medical records reviewed: Yes I reviewed the patient's medical records. River Inquiry Pt receiving controlled substance: No River was queried for this patient: No Vital Signs Vital Signs: 09/09/24 21:15 09/09/24 21:19 09/09/24 21:31 Temperature 98.1 F Temperature Source Oral Pulse Rate 58 L Pulse Rate [Radial] 59 L Respiratory Rate 16 20 Blood Pressure 164/89 H Blood Pressure [Right Arm] 156/89 H Blood Pressure Mean [Right Arm] 111 Blood Pressure Position [Right Arm] Sitting 02 Sat by Pulse Oximetry 89 L 94 L 95 Oxygen Delivery Method Room Air Nasal Cannula Oxygen Flow Rate (LPM) 2 2 09/09/24 22:01 Temperature Temperature Source Pulse Rate 56 L Pulse Rate [Radial] Respiratory Rate 17 Blood Pressure 163/86 H Blood Pressure [Right Arm] Blood Pressure Mean [Right Arm] Blood Pressure Position [Right Arm] 02 Sat by Pulse Oximetry 95 Oxygen Delivery Method Nasal Cannula Oxygen Flow Rate (LPM) 2 Lab Data Labs: Lab Results 09/09/24 21:19: WBC 5.7, RBC 3.52 L, Hgb 10.2 L, Hct 31.9 L, MCV 90.6, MCH 29.0, MCHC 32.0, RDW 14.5, Plt Count 242, MPV 9.4, Neut % (Auto) 74.2, Lymph % (Auto) 9.4 L, [place] % (Auto) 9.6 H, Eos % (Auto) 5.9, Baso % (Auto) 0.7, Neut # (Auto) 4.3, Lymph # (Auto) 0.5 L, [place] # (Auto) 0.6, Eos # (Auto) 0.3, Baso # (Auto) 0.0, Total Counted 100, Neutrophils % (Manual) 69, Lymphocytes % (Manual) 16, Monocytes % (Manual) 7, Eosinophils % (Manual) 8 H, Nucleated RBCs 1, Platelet Estimate Normal, RBC Morphology Normal, APTT 29.6, Sodium 136, Potassium 3.8, Chloride 98, Carbon Dioxide 28, Anion Gap 13.8, BUN 32 H, Creatinine 1.80 H, Estimated Creat Clear 60, Estimated GFR 37 L, Est GFR ( Amer) 45 L, Glucose 153 H, Calcium 9.6, Magnesium 1.8, Total Bilirubin 0.3, AST 21, ALT 13, Alkaline Phosphatase 74, Troponin I 0.02, NT-Pro-B Natriuret Pep 1790 H, Total Protein 7.0, Albumin 3.7, Globulin 3.3 H, Albumin/Globulin Ratio 1.1 09/09/24 21:20: VBG pH 7.36, VBG pCO2 47.3, VBG pO2 40.6 H, VBG HCO3 26.2, VBG Total CO2 27.6 H, VBG O2 Saturation 70.2 H, VBG Base Excess 0.8, VBG Lactic Acid 1.6 09/09/24 21:19 09/09/24 21:19 Response Orders (Tests/Meds): ED MEDICATIONS Discontinued Medications Generic Name Dose Route Start Last Admin Trade Name Edwardq PRN Reason Stop Dose Admin Aspirin 324 mg 09/09/24 21:11 09/09/24 21:22 Aspirin 81mg Chewable Tablet PO 09/09/24 21:12 Not Given ONCE ONE Furosemide 80 mg 09/09/24 22:22 09/09/24 22:28 Furosemide 40mg/4ml Vial IV 09/09/24 22:23 80 mg ONCE ONE Administration ORDERS Category Date Time Status XR chest portable Stat Exams 09/09/24 21:11 Completed Complete Blood Count Auto Diff Stat Lab 09/09/24 21:19 Completed Comprehensive Metabolic Panel Stat Lab 09/09/24 21:19 Completed Magnesium Stat Lab 09/09/24 21:19 Completed NT Pro Brain Natriuretic Pep. Stat Lab 09/09/24 21:19 Completed PTT [Activated Partial Thrombo Time] Stat Lab 09/09/24 21:19 Completed Troponin I Q3H Lab 09/10/24 00:15 Ordered Troponin I Q3H Lab 09/10/24 03:15 Ordered Troponin I Stat Lab 09/09/24 21:19 Completed VBG [Venous Blood Gas] Stat RT 09/09/24 21:20 Completed MDM Narrative Medical Decision Narrative: This is a 74-year-old male history of CVA complicated by blindness, dysarthria and dysphagia, CAD, CHF, COPD on 2 L nasal cannula, CKD presenting with chest pain. States that it started 2 weeks ago. Nonpositional, not exertional, has not needed increased his oxygen from her baseline. Left-sided and associated with chest wall tenderness when he pushes on it. Has been being treated for left-sided lung cancer. States that this feels similar, wanted to make sure his heart was okay. History obtained with patient and EMS. On arrival, patient hemodynamically stable, alert, oriented x4, appropriate, GCS 15, moving all extremities spontaneously. Full physical exam performed and significant for well-appearing male no acute distress. Speaking full sentences, alert and oriented. Cardiac exam without murmurs gallops or rubs, he does have nonpitting lower extremity bilateral edema. Differential includes ACS, CT, malignancy related pain, MSK, pneumothorax, pneumonia, among others. Patient was given 324 mg aspirin for symptomatic management and correction of underlying abnormalities. Patient placed on continuous cardiac monitoring and continuous pulse ox with initial blood pressure 156/89, heart rate 89, saturation 89% on room air, placed on 2 L nasal cannula. Independent interpretation of EKG shows sinus rhythm first-degree AV block with AK 03/15/2013, QRS 110, QTc 278. T wave inversions in 3, no reciprocal changes.. Workup independently interpreted and significant for nonactionable CBC or chemistry. Stable CKD with creatinine 1.8 BUN 32. Initial troponin 0.02, BNP elevated 1790, much higher than patient has ever been in the past. On independent interpretation of imaging, cardiomegaly left upper lobe mass with bilateral pleural effusion and pulmonary edema. See radiology read for full review of final results. Patient given 80 mg IV Lasix. Hospitalist was contacted. On reevaluation, patient resting comfortably. Hospital medicine contacted and case was discussed. States that the patient feels comfortable because he is not on a diuretic currently that we could potentially send back to [facility] and started him on diuretic, having follow-up outpatient. I discussed this with the patient. He stated that he prefers to be inpatient while he still having chest pain and in the setting of heart failure exacerbation. I also feel that patient would be high risk for falling through the cracks and missing follow-up as his most recent primary care physician follow-up states that he missed a nuclear med scan and other appointments secondary to no call no-show. This could be social due to patient's living status, disability, etc. Given patient presentation, workup, history, this most likely represents CHF exacerbation and chest pain. Public Health Officer disclaimer Much of this encounter note is an electronic burrer operator spoken language to printed text. Electronic burrer operator of the spoken language may permit errors. Although I have reviewed the note, some errors may still exist.
[2024-09-09 21:46] LABS: Activated Partial Thrombo Time 29.6 seconds (22.8-30.6); Alanine Aminotransferase 13 U/L (12-78); Albumin Level 3.7 g/dl (3.5-5.0); Albumin/Globulin Ratio 1.1 (1.1-1.8); Alkaline Phosphatase 74 U/L (38-126); Anion Gap 13.8 mEq/L (5-15); Aspartate Amino Transferase 21 U/L (17-59); Bilirubin,Total 0.3 mg/dl (0.2-1.3); Blood Urea Nitrogen 32 mg/dl (9-20); Calcium 9.6 mg/dl (8.4-10.2); Carbon Dioxide 28 mmol/L (22.0-30.0); Chloride 98 mmol/L (98-107); Creatinine Clearance Estimated 60 mL/min (50-200); Creatinine,Serum 1.80 mg/dl (0.66-1.25); Estimated Glomerular Filt Rate 37 ml/min (>60); GFR (African American) 45 ML/MIN (>60); Globulin 3.3 g/dL (1.3-3.2); Glucose 153 mg/dl (74-100); Magnesium 1.8 mg/dl (1.6-2.3); Potassium 3.8 mmoL/L (3.5-5.1); Sodium 136 mmol/L (136-145); Total Protein,Serum 7.0 g/dl (6.3-8.2)
[2024-09-09 21:55] LABS: NT Pro Brain Natriuretic Pep. 1790 pg/mL (0-450)
[2024-09-09 21:58] LABS: Troponin I 0.02 ng/ml (0.00-0.034)
[2024-09-09] MEDS: FUROSEMIDE 40MG/4ML VIAL 80 MG IV (22:28)
[2024-09-09 22:39] LABS: Total Cells Counted 100
[2024-09-09 22:43] LABS: RBC Morphology Normal
--- NOTE | 2024-09-09 23:05 | PC.NURSE ---
report given to Nannette RO
--- NOTE | 2024-09-09 23:25 | PC.NURSE ---
Patient arrived on the [facility] surge floor at [id number]
--- NOTE | 2024-09-09 23:35 | EXP.HP ---
History of Present Illness *Admission Date: 09/09/24 *Reason for visit:: chest pain *History of present illness: 74-year-old presents emergency department due to atypical chest pain. Poor historian, blind, hard of hearing. History largely obtained through chart review Comes from a local longterm due to intermittent left-sided chest pain that started approximately 2 weeks ago. Says it has been constant, but worsened slightly today. Radiates to the left arm. Endorsing shortness of breath but this is chronic and has not worsened. In the emergency department troponins negative. BNP elevated. EKG without ST deviations. Chest x-ray with left upper lobar density (chronic left upper lobar mass). Noted to be hypervolemic on physical exam given Lasix. Cardiovascular history includes normal systolic and diastolic function. LVEF 55. Right ventricle normal. No significant valvular heart disease. CT chest significant calcific plaque in proximal and mid RCA, left main and proximal LAD. Left heart cath 12/25/2018: Widely patent LAD stent. Nonocclusive disease in the RCA, circumflex. Other history includes CKD, lung cancer (adenocarcinoma of the colon, lung cancer left upper lobe followed by Dr. Cano. [facility] Disclaimer: The information contained in this section may have been updated after the patient was seen, as this information can be updated by other users. Medical History Lung cancer COPD mixed type PAF (paroxysmal atrial fibrillation) Knee pain, right Hyperkalemia Polycystic kidney UTI (urinary tract infection) Acute renal injury Jason catheter in place Pain in left arm Chronic hypoxic respiratory failure, on home oxygen therapy Hx of prostatic malignancy Colon cancer Knee pain Heart failure with preserved ejection fraction Peripheral edema Acute exacerbation of chronic obstructive pulmonary disease Adenocarcinoma of lung Chronic obstructive pulmonary disease CKD (chronic kidney disease) Stopped smoking with greater than 30 pack year history CVA (cerebral vascular accident) Blind Congestive heart failure Renal stones Gastroesophageal reflux 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) CVA (cerebral vascular accident) Obesity (BMI 30.0-34.9) Elevated left ventricular end-diastolic pressure (LVEDP) Diastolic dysfunction Pulmonary HTN Surgical History Hx of total knee arthroplasty History of bowel resection History of bronchoscopy History of ureteroscopy History of colonoscopy History of colectomy Family History Unknown Cancer self; post lung, prostate, and colon Other Family history of cancer Social History Smoking Status: Former smoker tobacco type: cigarettes packs per day: 1 alcohol intake: never substance use type: denies use current occupational status: disabled Travel in the last 8 weeks?: None caregiver/support person: Yes household members: none housing: longterm lives independently: No marital status: single current occupation: [employer] current occupational exposures/hazards: No caffeine: Yes special milad needs: No agree to transfusion: No do you feel safe at home: Yes victim of physical abuse: No victim of emotional abuse: No victim of sexual abuse: No would you like helpful sources: No Have you lived/traveled outside [place] in past 30 days?: No Contact w/someone who lives/traveled outside US past 30 days?: No Exposure to someone with infectious disease in past 14 days?: No Do you have a fever (greater than 100.4 F or 38 C)?: No Have you tested positive for COVID-19?: No Exposed to someone with COVID-19 in past 14 days?: No Do you have a sore throat?: No Do you have a cough?: No Do you have any weakness?: No Do you have any diarrhea?: No Are you experiencing any unusual bleeding?: No Do you have any muscle aches/pain?: No Do you have any abdominal pain?: No Are you experiencing loss of taste or smell?: No Other Medical History Have you received the Flu Vaccine for this season: No Have you received the Pneumonia Vaccine: Yes (01/02/24) Review of Systems Review of Systems Review of systems:: unable to obtain (Hard of hearing, poor historian) and pertinent systems reviewed and negative unless documented below Meds Home Medications and Allergies Home Medications ?Medication ?Instructions ?Recorded ?Confirmed ?Type aspirin 81 mg chewable tablet 81 mg PO DAILY 06/09/23 09/09/24 History atorvastatin 10 mg tablet 10 mg PO HS 06/09/23 09/09/24 History cetirizine 10 mg tablet 10 mg PO DAILY 06/09/23 09/09/24 History ferrous sulfate 325 mg (65 mg 325 mg PO DAILY 06/09/23 09/09/24 History iron) tablet isosorbide mononitrate 30 mg 30 mg PO DAILY 06/09/23 09/09/24 History tablet,extended release 24 hr omeprazole 20 mg capsule,delayed 20 mg PO DAILY 06/09/23 09/09/24 History release oxcarbazepine 300 mg tablet 300 mg PO BID 06/09/23 09/09/24 History acetaminophen 500 mg capsule 500 mg PO Q4HP PRN pain/fever 06/10/23 09/09/24 History multivitamin 1 tab PO DAILY 06/10/23 09/09/24 History timolol maleate 0.5 % eye drops 1 drp ophthalmic (eye) DAILY 06/10/23 09/09/24 History escitalopram oxalate 5 mg tablet 5 mg PO DAILY 12/06/23 09/09/24 History (Lexapro) guaifenesin 100 mg/5 mL oral liquid 200 mg PO Q6H PRN Cough 12/22/23 09/09/24 History lidocaine 4 % topical patch 1 patch topical DAILY 12/22/23 09/09/24 History (Lidocaine Pain Relief) ondansetron HCl 4 mg tablet 4 mg PO Q4H PRN Nausea 12/22/23 09/09/24 History fluticasone fur. 100 mcg-umeclid 1 inh inhalation DAILY #60 ea 01/03/24 09/09/24 Rx 62.5 mcg-vilant 25 mcg inhalat.powder (Trelegy Ellipta) albuterol sulfate 90 mcg/actuation 1 puff inhalation Q4H PRN soa 02/14/24 09/09/24 History aerosol inhaler (Ventolin HFA) hydrochlorothiazide 25 mg tablet 25 mg PO DAILY 02/14/24 09/09/24 History loperamide 2 mg capsule 2 mg PO Q6H PRN Constipation 02/14/24 09/09/24 History white petrolatum-mineral oil 94 1 applic ophthalmic (eye) HS 02/14/24 09/09/24 History %-3 % eye ointment (Systane Nighttime) finasteride 5 mg tablet 5 mg PO DAILY #90 tabs 03/05/24 09/09/24 Rx tamsulosin 0.4 mg capsule 0.4 mg PO HS 90 days #90 caps 03/05/24 09/09/24 Rx aluminum hydrox-magnesium carb 95 30 ml PO Q6HP PRN reflux 04/24/24 09/09/24 History mg-358 mg/15 mL oral suspension (Acid Gone Antacid) sodium zirconium cyclosilicate 10 10 g PO DAILY 04/24/24 09/09/24 History gram oral powder packet (Lokelma) apixaban 2.5 mg tablet (Eliquis) 2.5 mg PO BID #60 tabs 05/24/24 09/09/24 Rx gabapentin 100 mg capsule 100 mg PO BID #60 caps 06/08/24 09/09/24 Rx fluticasone propionate 50 2 spray intranasal DAILY 06/26/24 09/09/24 History mcg/actuation nasal spray,suspension (Flonase Allergy Relief) metoprolol succinate 100 mg 100 mg PO DAILY 06/26/24 09/09/24 History tablet,extended release 24 hr hydrocodone 5 mg-acetaminophen 325 1 tab PO TID #90 tabs 08/28/24 09/09/24 Rx mg tablet ipratropium 0.5 mg-albuterol 3 mg 3 ml inhalation QID PRN breathing 09/04/24 09/09/24 History (2.5 mg base)/3 mL nebulization soln sennosides 8.6 mg tablet (Senna 17.2 mg PO HS 09/04/24 09/09/24 History Laxative) New Prescriptions to Start Prescriptions: Allergies Allergy/AdvReac Type Severity Reaction Status Date / Time No Known Allergies Allergy Verified 09/04/24 15:17 Exam Data for Last 24 hours Vital signs and Labs for Last 24 Hours: Temp Pulse Resp BP Pulse Ox O2 Del Method O2 Flow Rate 98.1 F 60 16 150/82 H 96 Nasal Cannula 2 09/09/24 23:19 09/09/24 23:19 09/09/24 23:19 09/09/24 23:19 09/09/24 22:31 09/09/24 23:19 09/09/24 23:19 Laboratory Results - last 24 hr 09/09/24 21:19: WBC 5.7, RBC 3.52 L, Hgb 10.2 L, Hct 31.9 L, MCV 90.6, MCH 29.0, MCHC 32.0, RDW 14.5, Plt Count 242, MPV 9.4, Neut % (Auto) 74.2, Lymph % (Auto) 9.4 L, [place] % (Auto) 9.6 H, Eos % (Auto) 5.9, Baso % (Auto) 0.7, Neut # (Auto) 4.3, Lymph # (Auto) 0.5 L, [place] # (Auto) 0.6, Eos # (Auto) 0.3, Baso # (Auto) 0.0, Total Counted 100, Neutrophils % (Manual) 69, Lymphocytes % (Manual) 16, Monocytes % (Manual) 7, Eosinophils % (Manual) 8 H, Nucleated RBCs 1, Platelet Estimate Normal, RBC Morphology Normal, APTT 29.6, Sodium 136, Potassium 3.8, Chloride 98, Carbon Dioxide 28, Anion Gap 13.8, BUN 32 H, Creatinine 1.80 H, Estimated Creat Clear 60, Estimated GFR 37 L, Est GFR ( Amer) 45 L, Glucose 153 H, Calcium 9.6, Magnesium 1.8, Total Bilirubin 0.3, AST 21, ALT 13, Alkaline Phosphatase 74, Troponin I 0.02, NT-Pro-B Natriuret Pep 1790 H, Total Protein 7.0, Albumin 3.7, Globulin 3.3 H, Albumin/Globulin Ratio 1.1 09/09/24 21:20: VBG pH 7.36, VBG pCO2 47.3, VBG pO2 40.6 H, VBG HCO3 26.2, VBG Total CO2 27.6 H, VBG O2 Saturation 70.2 H, VBG Base Excess 0.8, VBG Lactic Acid 1.6 I & O for Last 24 hours: Intake & Output 09/06/24 09/07/24 09/08/24 09/09/24 23:59 23:59 23:59 23:59 Weight 121.563 kg Constitutional Constitutional: no acute distress *Routine HEENT Exam Head: Present normocephalic Eye: Present EOMI and PERRL ENT: Present mucous membranes moist *Routine Neck Exam Neck: Present supple; Absent lymphadenopathy *Routine Respiratory Exam Respiratory: Present CTA bilaterally *Routine Cardiovascular Exam Cardiovascular: Present RRR *Routine Abdominal Exam Abdominal: Present soft and normoactive bowel sounds; Absent tenderness *Routine Rectal Exam Rectal:: deferred *Routine Genitalia Exam Genitalia:: deferred *Routine Extremities Exam Extremities: Present edema; Absent cyanosis or clubbing Comments: Chronic venous stasis *Routine Skin Exam Skin: Present warm; Absent rash *Routine Neurological Exam Neurological: Present alert and oriented X3 Assessment and Plan *Assessment and plan (1) Chest pain: Status: Acute Category: Medical Code(s): R07.9 - Chest pain, unspecified (2) CHF exacerbation: Status: Acute Category: Medical Code(s): I50.9 - Heart failure, unspecified (3) PAF (paroxysmal atrial fibrillation): Status: Acute Category: Medical Code(s): I48.0 - Paroxysmal atrial fibrillation (4) Lung cancer: Status: Acute Category: Medical Code(s): C34.90 - Malignant neoplasm of unspecified part of unspecified bronchus or lung (5) CKD (chronic kidney disease) stage 4, GFR 15-29 ml/min: Status: Acute Category: Medical Code(s): N18.4 - Chronic kidney disease, stage 4 (severe) (6) Obesity (BMI 30.0-34.9): Status: Chronic Category: Medical Code(s): E66.811 - Obesity, class 1 Plan 74-year-old male multiple cardiovascular risk factors including prior obstructive CAD with PCI to LAD presenting with chest pain 2 weeks duration. Hypervolemic on physical exam, possible component of congestive heart failure exacerbation, will repeat echo. Primary admission for chest pain evaluation. Will order nuclear stress test given negative troponins and nonischemic EKG. Cardiology consult Acute chest pain Coronary artery disease status post PCI LAD - Nuclear stress test - Echo -Telemetry -Risk factor modification secondary prevention cardiovascular disease -High intensity statin -LDL goal 55, add Zetia if above goal - Resume medications once reconciled Acute decompensated heart failure - One-time Lasix 80 IV - Assess response, repeat if needed - Echo - GDMT as needed Paroxysmal A-fib - Telemetry - DOAC CKD - At baseline BPH - Chronic Jason Anemia, stable - Iron studies and IV iron if LV function is reduced for morbidity and improvement of heart failure symptoms Lung cancer Colon cancer - Outpatient monitoring
[2024-09-10] VITALS (8 sets, daily range): BP systolic 145–195; BP diastolic 66–94; PULSE 50–90; RESP 16–20; TEMP 36.4–37; O2SAT 92–98; BMI 32.1
--- NOTE | 2024-09-10 | CA_ITS ---
APPROVED REPORT Exam: Pharmacologic Technologist: Melanie Pascal Ht: 6 ft 3 in Wt: 263 lbs BSA: 2.47 m2 Medical History Medications: aspirin, atorvastatin, cetirizine, ferrous sulfate, isosorbide mononitrate, metoprolol succinate, omeprazole, hydrocodone, oxycarbazepine, tylenol, timolol maleate, lexapro, lidocaine patch, zofran, trelegy, albuterol, hctz, loperamide, finasteride, tamsulosin, lokelma, eliquis, gabapentin, flonase. Stress Test Details Test: Yonis Reason for pharmacologic stress test: physical limitation. HR Resting HR: 61 bpm Max Heart Rate (APMHR): 144.884035 bpm Max HR Achieved: 79 bpm Target HR (85% APMHR): 122.620811 bpm % of APMHR: 54.86 Recovery HR: 75 bpm BP Resting BP: 206.0/106.0 mmHg Max BP: 106.0/106.0 mmHg Recovery BP: 150.0/96.0 mmHg ECG Resting ECG: Chest Pain Stress ECG Conclusion Symptoms: SOA. Arrhythmias/Ectopy: None. ST-T Changes: EKG non diagnostic. Electronically signed by : Leigh Rsoen MD 09/12/2024 00:23:33
[2024-09-10 01:39] LABS: Troponin I < 0.01 ng/ml (0.00-0.034)
[2024-09-10 04:33] LABS: Troponin I 0.02 ng/ml (0.00-0.034)
[2024-09-10 06:09] LABS: POC Glucose,Bedside 87 (70-110)
--- NOTE | 2024-09-10 06:43 | PC.NURSE ---
Patient alert and oriented. Patient has dysarthria from a past cva. Patient is also hard of hearing and has blindness and can hardly see. Patient needs to wear sunglasses he has at bedside. Patient has complained of tenderness in the left chest area but has rested all night. Patient is on 2l oxygen via nasal cannula. Patient has a bhandari cath in that is chronic. Patient has had 3300 out since being on the [facility] floor. Patient weight went from 268lbs down to 264 lbs. Patient is getting an echo done at this time and is scheduled a stress test this am. Patient is NPO
--- NOTE | 2024-09-10 07:39 | P.CONPHA_ITS ---
Pharmacy Intervention Comments: MEDICATION RECONCILIATION COMPLETED ON PATIENT USING MAR FROM [facility]. -STEPHANIE HOFFMAN, YASIRD
--- NOTE | 2024-09-10 07:39 | HMH.PHAINT1 ---
Pharmacy Intervention Comments: MEDICATION RECONCILIATION COMPLETED ON PATIENT USING MAR FROM [facility]. -STEPHANIE HOFFMAN, YASIRD
--- NOTE | 2024-09-10 07:56 | SW/DCPLANNER ---
Addendum entered by Raysa Blanca 09/12/24 13:23: Per Stefanie jiménez/ [facility] they will transport patient today. Addendum entered by Margaret Maguire 09/12/24 09:40: Updated Stefanie with [facility], the patient will return with [facility] level of care. Original Note: Patient currently resides at [facility] level of care. Updated patient information has been faxed. Discharge date is unknown at this time. I will continue to follow up.
[2024-09-10] MEDS: ASPIRIN 81MG CHEWABLE TABLET 81 MG PO (09:14)
[2024-09-10] MEDS: METOPROLOL SUCCINATE XL 100MG TABLET 100 MG PO (09:14)
[2024-09-10] MEDS: HEPARIN SODIUM 5,000 UNIT/ML VIAL 5000 UNIT SUBCUT ×3 (09:14→21:19)
--- NOTE | 2024-09-10 09:21 | PC.NURSE ---
off floor to radiology
--- NOTE | 2024-09-10 09:36 | NM_ITS ---
APPROVED REPORT Exam: Nuclear Stress Test Indication: Chest pain, SOB, HTN, High cholesterol, Former tobacco use, Family history, CAD Patient Location: Inpatient Stress Tech: Melanie Sharp DC Tech:Chey Mota, ARRT, RT (R)(N) Ht: 6 ft 4 in Wt: 246 lbs HR: 61 bpm BP: 206/106 mmHg BSA: 2.42 m2 TID: 1.15 BMI: 29.9 History: Chest pain, SOB, HTN, High cholesterol, Former tobacco use, Family history, CAD Procedure: Patient received 0.4 mg of intravenous Lexiscan, resting heart rate 61 bpm, resting blood pressure 206/106 mmHg, with Lexiscan maximum heart rate achieved was 79 bpm which is % of the maximum predicted heart rate and blood pressure was 160/78 mmHg. With Lexiscan, patient denied any complaint of chest pain. Cardiac Stress and Resting SPECT Images: Cardiac Stress and Resting SPECT images were obtained using technetium 99m Myoview 31.9 mCi stress and 10.65 mCi at rest. The patient was unable to lie on his abdomen. Therefore, prone stress imaging could not be performed. This may affect the diagnostic interpretation of the study findings. Resting and stress imaging in supine positions demonstrate a medium-sized, severe, predominantly fixed perfusion defect in the inferior and inferoseptal LV mariee. There is a small region of reversibility towards the basal inferior LV wall. Gated imaging demonstrates mild reduction global LV systolic function. LVEF is calculated at 43%. Conclusion: Medium-sized, severe, predominantly fixed perfusion defect in the inferior and inferoseptal LV mariee. There is a small region of reversibility towards the basal inferior LV wall. Findings are suggestive of partial reversible ischemia. Gated imaging demonstrates mild reduction global LV systolic function. LVEF is calculated at 43%. Electronically signed by : Leigh Rosen MD 09/10/2024 14:37:56
--- NOTE | 2024-09-10 09:55 | EXP.CARD.CON ---
History of Present Illness History of Present Illness Consult date: 09/10/24 Requesting physician: Edi Ramirez Consult reason: chest pain Chief complaint: chest pain History of present illness: Mr. 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 He reports SOA which is at baseline and pain and tenderness on palpation of left breast/rib and left arm areas. Per Dr. Alford note from 08/17/2024 patient was complaining of the same type of pain in which he ordered a chest x-ray with left rib and a left humerus x-ray which were negative for acute new findings. Upon presentation to ER EKG showed sinus rhythm with nonspecific ST and T wave changes at a rate of 60. Serial troponins are negative. Creatinine today is 1.8. Initial BNP 1790, chest x-ray was negative for new acute cardiopulmonary process but does identify a left upper lobe mass similar to previous imaging. Echocardiogram from May 2024 shows normal biventricular systolic function with mild TR and mild PI. Patient was admitted for further evaluation and cardiology consult and was given Lasix 80 mg IV x 1. This morning he is resting comfortably and denies worsening of symptoms. He still endorses left chest wall pain with palpation/ movement of left arm. [facility] Disclaimer: The information contained in this section may have been updated after the patient was seen, as this information can be updated by other users. Medical History Lung cancer COPD mixed type PAF (paroxysmal atrial fibrillation) Knee pain, right Hyperkalemia Polycystic kidney UTI (urinary tract infection) Acute renal injury Jason catheter in place Pain in left arm Chronic hypoxic respiratory failure, on home oxygen therapy Hx of prostatic malignancy Colon cancer Knee pain Heart failure with preserved ejection fraction Peripheral edema Acute exacerbation of chronic obstructive pulmonary disease Adenocarcinoma of lung Chronic obstructive pulmonary disease CKD (chronic kidney disease) Stopped smoking with greater than 30 pack year history CVA (cerebral vascular accident) Blind Congestive heart failure Renal stones Gastroesophageal reflux 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) CVA (cerebral vascular accident) Obesity (BMI 30.0-34.9) Elevated left ventricular end-diastolic pressure (LVEDP) Diastolic dysfunction Pulmonary HTN Surgical History Hx of total knee arthroplasty History of bowel resection History of bronchoscopy History of ureteroscopy History of colonoscopy History of colectomy Family History Unknown Cancer self; post lung, prostate, and colon Other Family history of cancer Social History (Updated 09/10/24 @ 00:28 by Nannette Renteria RN) Smoking Status: Former smoker tobacco type: cigarettes packs per day: 1 alcohol intake: never substance use type: denies use current occupational status: disabled Travel in the last 8 weeks?: None caregiver/support person: Yes household members: none housing: half-way lives independently: No marital status: single current occupation: [employer] current occupational exposures/hazards: No caffeine: Yes special milad needs: No agree to transfusion: No do you feel safe at home: Yes victim of physical abuse: No victim of emotional abuse: No victim of sexual abuse: No would you like helpful sources: No Have you lived/traveled outside US in past 30 days?: No Contact w/someone who lives/traveled outside US past 30 days?: No Exposure to someone with infectious disease in past 14 days?: No Do you have a fever (greater than 100.4 F or 38 C)?: No Have you tested positive for COVID-19?: No Exposed to someone with COVID-19 in past 14 days?: No Do you have a sore throat?: No Do you have a cough?: No Do you have any weakness?: No Are you experiencing any nausea/vomitting?: No Do you have any diarrhea?: No Are you experiencing any unusual bleeding?: No Do you have any muscle aches/pain?: No Do you have any abdominal pain?: No Are you experiencing loss of taste or smell?: No Review of Systems Review of Systems Review of systems:: pertinent systems reviewed and negative unless documented below Constitutional Constitutional: Reports system reviewed and no additional complaints, except as documented *Cardiovascular Cardiovascular: Reports system reviewed and no additional complaints, except as documented and Reports dyspnea *Respiratory Respiratory: Reports system reviewed and no additional complaints, except as documented and Reports dyspnea *Gastrointestinal Gastrointestinal: Reports system reviewed and no additional complaints, except as documented *Musculoskeletal Comments: Chest wall tenderness and left arm pain *Neurologic Neurologic: Reports system reviewed and no additional complaints, except as documented and Denies confusion Psychiatric Psychiatric: Reports system reviewed and no additional complaints, except as documented and Denies confusion Exam Data for Last 24 hours Vital signs and Labs for Last 24 Hours: Temp Pulse Resp BP Pulse Ox O2 Del Method O2 Flow Rate 98 F 60 16 169/78 H 98 Nasal Cannula 2 09/10/24 08:00 09/10/24 08:00 09/10/24 08:00 09/10/24 08:00 09/10/24 08:00 09/10/24 08:00 09/10/24 07:32 Laboratory Results - last 24 hr 09/09/24 21:19: WBC 5.7, RBC 3.52 L, Hgb 10.2 L, Hct 31.9 L, MCV 90.6, MCH 29.0, MCHC 32.0, RDW 14.5, Plt Count 242, MPV 9.4, Neut % (Auto) 74.2, Lymph % (Auto) 9.4 L, [place] % (Auto) 9.6 H, Eos % (Auto) 5.9, Baso % (Auto) 0.7, Neut # (Auto) 4.3, Lymph # (Auto) 0.5 L, [place] # (Auto) 0.6, Eos # (Auto) 0.3, Baso # (Auto) 0.0, Total Counted 100, Neutrophils % (Manual) 69, Lymphocytes % (Manual) 16, Monocytes % (Manual) 7, Eosinophils % (Manual) 8 H, Nucleated RBCs 1, Platelet Estimate Normal, RBC Morphology Normal, APTT 29.6, Sodium 136, Potassium 3.8, Chloride 98, Carbon Dioxide 28, Anion Gap 13.8, BUN 32 H, Creatinine 1.80 H, Estimated Creat Clear 60, Estimated GFR 37 L, Est GFR ( Amer) 45 L, Glucose 153 H, Calcium 9.6, Magnesium 1.8, Total Bilirubin 0.3, AST 21, ALT 13, Alkaline Phosphatase 74, Troponin I 0.02, NT-Pro-B Natriuret Pep 1790 H, Total Protein 7.0, Albumin 3.7, Globulin 3.3 H, Albumin/Globulin Ratio 1.1 09/09/24 21:20: VBG pH 7.36, VBG pCO2 47.3, VBG pO2 40.6 H, VBG HCO3 26.2, VBG Total CO2 27.6 H, VBG O2 Saturation 70.2 H, VBG Base Excess 0.8, VBG Lactic Acid 1.6 09/10/24 00:26: Troponin I < 0.01 09/10/24 03:29: Troponin I 0.02 09/10/24 05:51: POC Glucose 87 I & O for Last 24 hours: Intake & Output 09/07/24 09/08/24 09/09/24 09/10/24 23:59 23:59 23:59 23:59 Output Total 3300 / 3300 Balance -3300 / -3300 Weight 268 lb 264 lb Constitutional Constitutional: no acute distress Routine Chest/Breast/Axilla Exam Chest wall: Present tenderness *Routine Respiratory Exam Respiratory: Present CTA bilaterally and symmetric chest movement *Routine Cardiovascular Exam Cardiovascular: Present RRR, Normal S1 and Normal S2 *Routine Abdominal Exam Abdominal: Present soft and normoactive bowel sounds; Absent tenderness *Routine Extremities Exam Extremities: Present full ROM and normal capillary refill; Absent edema *Routine Skin Exam Skin: Present intact, dry and warm Detailed Neck Exam: Thyroids Thyroid: Absent bruit Meds Home Medications and Allergies Home Medications ?Medication ?Instructions ?Recorded ?Confirmed ?Type aspirin 81 mg chewable tablet 81 mg PO DAILY 06/09/23 09/09/24 History atorvastatin 10 mg tablet 10 mg PO HS 06/09/23 09/09/24 History cetirizine 10 mg tablet 10 mg PO DAILY 06/09/23 09/09/24 History ferrous sulfate 325 mg (65 mg 325 mg PO DAILY 06/09/23 09/09/24 History iron) tablet isosorbide mononitrate 30 mg 30 mg PO DAILY 06/09/23 09/09/24 History tablet,extended release 24 hr omeprazole 20 mg capsule,delayed 20 mg PO DAILY 06/09/23 09/09/24 History release oxcarbazepine 300 mg tablet 300 mg PO BID 06/09/23 09/09/24 History acetaminophen 500 mg capsule 500 mg PO Q4HP PRN Mild Pain 06/10/23 09/09/24 History (Scale Score 1-4) multivitamin 1 tab PO DAILY 06/10/23 09/09/24 History timolol maleate 0.5 % eye drops 1 drp ophthalmic (eye) DAILY 06/10/23 09/09/24 History escitalopram oxalate 5 mg tablet 5 mg PO DAILY 12/06/23 09/09/24 History (Lexapro) guaifenesin 100 mg/5 mL oral liquid 200 mg PO Q6HP PRN Cough 12/22/23 09/10/24 History lidocaine 4 % topical patch 1 patch topical DAILY 12/22/23 09/09/24 History (Lidocaine Pain Relief) ondansetron HCl 4 mg tablet 4 mg PO Q4HP PRN Nausea 12/22/23 09/10/24 History fluticasone fur. 100 mcg-umeclid 1 inh inhalation DAILY #60 ea 01/03/24 09/09/24 Rx 62.5 mcg-vilant 25 mcg inhalat.powder (Trelegy Ellipta) albuterol sulfate 90 mcg/actuation 1 puff inhalation Q4HP PRN 02/14/24 09/10/24 History aerosol inhaler (Ventolin HFA) Shortness Of Breath hydrochlorothiazide 25 mg tablet 25 mg PO DAILY 02/14/24 09/09/24 History loperamide 2 mg capsule 2 mg PO Q6HP PRN Diarrhea 02/14/24 09/10/24 History white petrolatum-mineral oil 94 1 applic ophthalmic (eye) HS 02/14/24 09/09/24 History %-3 % eye ointment (Systane Nighttime) finasteride 5 mg tablet 5 mg PO DAILY #90 tabs 03/05/24 09/09/24 Rx tamsulosin 0.4 mg capsule 0.4 mg PO HS 90 days #90 caps 03/05/24 09/09/24 Rx aluminum hydrox-magnesium carb 95 30 ml PO Q6HP PRN Acid Reflux 04/24/24 09/09/24 History mg-358 mg/15 mL oral suspension (Acid Gone Antacid) sodium zirconium cyclosilicate 10 10 g PO DAILY 04/24/24 09/09/24 History gram oral powder packet (Lokelma) apixaban 2.5 mg tablet (Eliquis) 2.5 mg PO BID #60 tabs 05/24/24 09/09/24 Rx gabapentin 100 mg capsule 100 mg PO BID #60 caps 06/08/24 09/09/24 Rx fluticasone propionate 50 2 spray intranasal DAILY 06/26/24 09/09/24 History mcg/actuation nasal spray,suspension (Flonase Allergy Relief) metoprolol succinate 100 mg 100 mg PO DAILY 06/26/24 09/09/24 History tablet,extended release 24 hr hydrocodone 5 mg-acetaminophen 325 1 tab PO TID #90 tabs 08/28/24 09/09/24 Rx mg tablet ipratropium 0.5 mg-albuterol 3 mg 3 ml inhalation QIDP PRN Shortness 09/04/24 09/10/24 History (2.5 mg base)/3 mL nebulization Of Breath Or Wheezing soln sennosides 8.6 mg tablet (Senna 17.2 mg PO HS 09/04/24 09/09/24 History Laxative) New Prescriptions to Start Prescriptions: Allergies Allergy/AdvReac Type Severity Reaction Status Date / Time No Known Allergies Allergy Verified 09/04/24 15:17 Assessment and Plan *Assessment and plan (1) Chest pain: Status: Acute Category: Medical Code(s): R07.9 - Chest pain, unspecified (2) PAF (paroxysmal atrial fibrillation): Status: Acute Category: Medical Code(s): I48.0 - Paroxysmal atrial fibrillation (3) CKD (chronic kidney disease) stage 4, GFR 15-29 ml/min: Status: Acute Category: Medical Code(s): N18.4 - Chronic kidney disease, stage 4 (severe) (4) Hypertension: Status: Acute Qualifiers: Hypertension type: unspecified Qualified Code(s): I10 - Essential (primary) hypertension Category: Medical Code(s): I10 - Essential (primary) hypertension (5) Heart failure with preserved ejection fraction: Status: Acute Qualifiers: Heart failure chronicity: unspecified Qualified Code(s): I50.30 - Unspecified diastolic (congestive) heart failure Category: Medical Code(s): I50.30 - Unspecified diastolic (congestive) heart failure Plan History of coronary artery disease Chest wall pain/left arm pain History of left lobe adenocarcinoma Serial troponins remain negative EKG without acute ischemic changes noted Tenderness noted with palpation of left breast and movement of left arm Repeat limited echo EF is 50-55% Nuclear stress test shows small area of reversible ischemia noted, official read is pending CTA to R/o PE pending Will proceed with [facility] tomorrow to evaluate for ischemia Continue aspirin 81 mg p.o. daily and atorvastatin 40 mg p.o. daily Acute on chronic HFpEF Per notes patient was volume overloaded on admission. Initial BNP 1790 Was given Lasix 80 mg IV x 1 Has diuresed well-denies shortness of breath and is maintaining oxygen saturation of 98% on 2 Liters (home O2 requirements) Repeat limited echo is pending Start Lasix 20 mg p.o. daily Add Jardiance 10 mg p.o. daily History of paroxysmal atrial fibrillation- Chadsvasc score > 2 Continue Toprol 100 mg p.o. daily and Eliquis 2.5 mg p.o. twice daily Hypertension Continue Toprol 100 mg p.o. daily Add Lasix 20 mg p.o. daily Chronic kidney disease Baseline creatinine 2?2.2 Creatinine today 1.8 Will continue Lasix 20 mg p.o. daily for gentle diuresis and blood pressure control 09/10/2024 Summary: Repeat limited echo shows a normal ejection fraction. Preliminary nuclear stress test shows an area of reversible ischemia noted. Will proceed with CTA to rule out PE and left heart catheterization tomorrow to evaluate for coronary artery disease. Please keep patient n.p.o. after midnight. Cardiac meds: Aspirin 81 mg p.o. daily Atorvastatin 40 mg p.o. daily Lasix 20 mg p.o. daily Toprol 100 mg p.o. daily Eliquis 2.5 mg p.o. twice daily-resume after nuclear stress test if cath is not needed Jardiance 10 mg p.o. daily
[2024-09-10] MEDS: SODIUM CHLORIDE 0.9% 10ML SYR (RAD ONLY) 10 ML IV ×3 (10:51→17:24)
[2024-09-10] MEDS: ISOTOPE MYOVIEW (PER STUDY) 1 DOSE IV (10:51)
[2024-09-10] MEDS: EMPAGLIFLOZIN 10MG TABLET 10 MG PO (11:59)
[2024-09-10] MEDS: FUROSEMIDE 20MG TABLET 20 MG PO (11:59)
--- NOTE | 2024-09-10 12:00 | PC.NURSE ---
returned to floor at 11:54
--- NOTE | 2024-09-10 12:50 | CT_ITS ---
PROCEDURE INFORMATION: Exam: CTA Chest With Contrast Exam date and time: 09/10/2024 5:17 PM Age: 74 years old Clinical indication: Sternal or substernal pain; Additional info: Chest pain TECHNIQUE: Imaging protocol: Computed tomographic angiography of the chest with contrast. Exam focused on the arteries. 3D rendering (Not supervised by radiologist): MIP and/or 3D reconstructed images were created by the technologist. Radiation optimization: All CT scans at this facility use at least one of these dose optimization techniques: automated exposure control; mA and/or kV adjustment per patient size (includes targeted exams where dose is matched to clinical indication); or iterative reconstruction. Contrast material: ISOVUE 370; Contrast volume: 85 ml; Contrast route: INTRAVENOUS (IV); COMPARISON: CT ANGIO CHEST PE PROTOCOL 01/05/2024 10:11 AM FINDINGS: Pulmonary arteries: No central or segmental pulmonary arterial intraluminal filling defects identified. Aorta: Mild atherosclerotic calcification of thoracic aorta. No aneurysm. Lungs: Poorly defined left apical mass with adjacent bronchovascular thickening, abutting posterior pleura measuring 4.1 x 4.6 x 3.1 from 5.2 x 5.3 x 5.3 cm. Mass surrounded by poorly defined opacity and irregular pleural thickening Pleural spaces: No pleural effusion. No pneumothorax. Heart: Unremarkable. No cardiomegaly. No pericardial effusion. Coronary arteries: Atherosclerotic calcification of coronary arteries. Lymph nodes: Unremarkable. No enlarged lymph nodes. Liver: Similar scattered hypodensities in visualized liver. Bones/joints: Unremarkable. No acute fracture. Soft tissues: Unremarkable. IMPRESSION: 1. No central or segmental pulmonary arterial embolism identified. 2. Smaller left apical mass with probable adjacent bronchovascular lymphangitic infiltration. New, surrounding, poorly defined opacity and irregular pleural thickening possibly reflecting posttreatment changes including from post radiation pneumonitis.
[2024-09-10 14:29] LABS: Albumin Level 4.1 g/dl (3.5-5.0); Chloride 98 mmol/L (98-107); Potassium 4.0 mmoL/L (3.5-5.1); Sodium 140 mmol/L (136-145)
[2024-09-10 14:32] LABS: Alanine Aminotransferase 15 U/L (12-78); Albumin/Globulin Ratio 1.2 (1.1-1.8); Alkaline Phosphatase 82 U/L (38-126); Anion Gap 15.0 mEq/L (5-15); Aspartate Amino Transferase 22 U/L (17-59); Bilirubin,Total 0.2 mg/dl (0.2-1.3); Blood Urea Nitrogen 32 mg/dl (9-20); Calcium 9.2 mg/dl (8.4-10.2); Carbon Dioxide 31 mmol/L (22.0-30.0); Cholesterol 133 mg/dl (140-200); Creatinine Clearance Estimated 59 mL/min (50-200); Creatinine,Serum 1.80 mg/dl (0.66-1.25); Estimated Glomerular Filt Rate 37 ml/min (>60); GFR (African American) 45 ML/MIN (>60); Globulin 3.3 g/dL (1.3-3.2); Glucose 88 mg/dl (74-100); Phosphorous 3.7 mg/dl (2.5-4.5); Total Protein,Serum 7.4 g/dl (6.3-8.2); Triglycerides 152 mg/dl (30-150)
[2024-09-10 14:33] LABS: HDL Cholesterol 32 mg/dl (40-60); Magnesium 1.8 mg/dl (1.6-2.3)
[2024-09-10 14:52] LABS: Hematocrit 32.8 % (42.0-52.0); Hemoglobin 10.9 g/dL (14.1-18.0); Immature Granulocytes % 0.1 %; Mean Corpuscular HGB Conc 33.2 g/dL (31.8-35.4); Mean Corpuscular Hemoglobin 29.5 pg (27.0-31.2); Mean Corpuscular Volume 88.6 fl (80-94); Nucleated Red Blood Cells % 0 %; Platelet Count 248 K/mm3 (142-424); Red Blood Count 3.70 M/mm3 (4.60-6.20); Red Cell Distribution Width-SD 46.1 fL; White Blood Count 7.4 K/mm3 (4.8-10.8)
[2024-09-10] MEDS: LACTATED RINGERS 1000ML 500 ML 250 ML IV (15:48)
[2024-09-10 15:51] LABS: Anisocytosis 1+; Giant Platelets 1+; Macrocytosis 1+; Ovalocytes 1+; Poikilocytosis 1+; Target Cells 1+; Tear Drop Cells 1+; Total Cells Counted 100
[2024-09-10 15:52] LABS: Polychromasia 1+
--- OUTSIDE RECORDS SUMMARY | 2024-09-10 15:56 | XMS_ITS | Encounter Summary ---
Author Organization Healthcare Address [address] [place] [address] Care Team Providers Care Supervisory Investigative Specialist Name Role Phone Edi Chase MD Primary Care Provider [phone] Sam Sanchez MD Unavailable [phone] Cayetano Cannon MD Unavailable [phone] Encounter Details Date Type Department Care Team (Late st Contact Info) Description 09/30/2022 Lab Requisition [facility] [address] [place] [address] Lyn Santana MD [address] [place] [address] Malignant neoplasm of upper lobe, left bronchus [...] AM EDT Appointment [facility] Neurophysiology [address] [facility] [address] [place] [address] 10/26/2024 1:20 PM EDT Office Visit [facility] [address] [place] [address] Florentin Tillman MD [address] [place] [address] documented as of this encounter Procedures Procedure Name Priority Date/Time Associated Diagnosis Comments AP MISCELLANEOUS LAB TEST (SO) Routine 09/08/2022 11:51 AM EDT Malignant neoplasm of upper lobe, left bronchus or lung (CMS/HCC) documented in this encounter Results * AP Miscellaneous Lab Test (09/08/2022 11:51 AM EDT) Test name ME Profile 10/15/2022 7:42 AM EDT [facility] Comment:[id number] Test Result see scan 10/15/2022 7:42 AM EDT [facility] See Scanned Result 10/15/2022 7:42 AM EDT [facility] Tissue 09/08/2022 11:5 1 AM EDT 09/30/2022 2:24 PM EDT us Lyn Santana MD LAB REF LAB BLOOD AND FLUID ORD Final Result [facility] documented in this encounter Visit [...] documented as of this encounter Care Teams Supervisory Investigative Specialist Relationship Specialty Start Date End Date Edi Chase MD [address] [place] [address] PCP - General 03/14/20 Sam Sanchez MD [address] [place] [address] Consulting Physician Pulmonary Disease 08/11/22 Cayetano Cannon MD [address] [place], [place] [address] Referring Physician 08/11/22 documented as of this encounter
--- OUTSIDE RECORDS SUMMARY | 2024-09-10 15:59 | XMS_ITS | Encounter Summary ---
Author Organization Healthcare Address [address] [place] [address] Care Team Providers Care Coating And Embossing Unit Operator Name Role Phone Edi Chase MD Primary Care Provider [phone] Sam Sanchez MD Unavailable [phone] Cayetano Cannon MD Unavailable [phone] Encounter Details Date Type Department Care Team ([facility] st Contact Info) Description 01/05/2024 Orders Only External Location [address] [place] [address] Cedric Hinton MD [address] [place] [address] Social History Tobacco Use Types Packs/Day Years [...] often do you attend chur ch or hindu services? Patient unable to answer 12/26/2023 Do you belong to any clubs o r organizations such as roman catholic groups, unions, fraternal or athletic groups, [...] unable to answer 12/[facility]/2023 [facility] - Occupational Stress Questionnaire Answer [...] place to sleep or slept in a fdc (including now)? Patient unable to answer 12/26/2023 [...] 8:00 AM EDT Appointment [facility] Neurophysiology [address] [facility] [address] [address] 10/26/2024 1:20 PM EDT Office Visit [facility] [address] [place] [address] Florentin Tillman MD [address] [place] [address] documented as of this encounter Procedures Procedure [...] documented as of this encounter Care Teams Coating And Embossing Unit Operator Relationship Specialty Start Date End Date Edi Chase MD [address] [place] [address] PCP - General 03/14/20 Sam Sanchez MD [address] [place] [address] Consulting Physician Pulmonary Disease 08/11/22 Cayetano Cannon MD [address] [facility] [address] [place] [id number] Referring Physician 08/11/22 documented as of this encounter
--- OUTSIDE RECORDS SUMMARY | 2024-09-10 15:59 | XMS_ITS | Encounter Summary ---
Author Organization Healthcare Address [address] [place] [address] Care Team Providers Care Infection Prevention Coordinator Name Role Phone Edi Chase MD Primary Care Provider [phone] Sam Sanchez MD Unavailable [phone] Cayetano Cannon MD Unavailable [phone] Encounter Details Date Type Department Care Team (Late st Contact Info) Description 12/26/2023 Lab Requisition [facility] [address] [place] [address] Amado Horton MD [address] [facility] [address] [place] [address] Encounter for general adult medical [...] any clubs o r organizations such as rastafarian groups, unions, fraternal or athletic groups, or [...] one occasion? Patient unable to answer 12/26/2023 [facility] - Occupational Stress Questionnaire Answer Date Recorded [...] AM EDT Appointment [facility] Neurophysiology [address] [facility] [address] [place] [address] 10/26/2024 1:20 PM EDT Office Visit [facility] [address] [place] [address] Florentin Tillman MD [address] [place] [address] documented as of this encounter Procedures Procedure Name Priority Date/Time Associated Diagnosis Comments MULTI DRUG RESISTANCE TEST Routine 12/26/2023 2:00 PM EDT Encounter for general adult medical examination without abnormal findings documented in this encounter Results * Multi Drug Resistance Test (12/26/2023 2:00 PM EDT) Culture No growth at day 1 12/27/2023 12:[address] [facility] Swab (Nares and Brenda Rectal) 12/26/2023 2:00 PM EDT 12/26/2023 3:15 PM EDT us Amado Horton MD LAB MICROBIOLOGY - GEN ERAL ORDERABLES Final Result [facility] [address] [place] [address] documented in this encounter Visit Diagnoses Diagnosis [...] documented as of this encounter Care Teams Infection Prevention Coordinator Relationship Specialty Start Date End Date Edi Chase MD [address] [facility] [place] [address] PCP - General 03/14/20 Sam Sanchez MD [address] [place] [address] Consulting Physician Pulmonary Disease 08/11/22 Cayetano Cannon MD [address] [facility] [address] [place] [address] Referring Physician 08/11/22 documented as of this encounter
--- OUTSIDE RECORDS SUMMARY | 2024-09-10 15:59 | XMS_ITS | Encounter Summary ---
Author Organization Healthcare Address [address] [place] [address] Care Team Providers Care Surveillance Specialist Name Role Phone Edi Chase MD Primary Care Provider [phone] Sam Sanchez MD Unavailable [phone] Cayetano Cannon MD Unavailable [phone] Encounter Details Date Type Department Care Team (Late st Contact Info) Description 12/14/2023 Orders Only External Location [address] [place] [address] Cedric Hinton MD [address] [...] AM EDT Appointment [facility] Neurophysiology [address] [facility] [address] [place] [address] 10/26/2024 1:20 PM EDT Office Visit [facility] [address] [place] [address] Florentin Tillman MD [address] [place] [address] documented as of this encounter Procedures Procedure [...] documented as of this encounter Care Teams Surveillance Specialist Relationship Specialty Start Date End Date Edi Chase MD [address] [place] [address] PCP - General 03/14/20 Sam Sanchez MD [address] [place] [address] Consulting Physician Pulmonary Disease 08/11/22 Cayetano Cannon MD [address] [facility] [address] [place] [address] Referring Physician 08/11/22 documented as of this encounter
--- OUTSIDE RECORDS SUMMARY | 2024-09-10 15:59 | XMS_ITS | Encounter Summary ---
Author Organization Healthcare Address [address] [place] [address] Care Team Providers Care Faith Healer Name Role Phone Edi Chase MD Primary Care Provider [phone] Sam Sanchez MD Unavailable Cayetano Cannon MD Unavailable [phone] Encounter Details Date Type Department Care Team (Late st Contact Info) Description 07/08/2022 Orders Only External Location [address] [place] [id number] Armani Lopez [place], [place] [address] [place] [address] Social History Tobacco Use Types [...] AM EDT Appointment PAV H Neurophysiology 800 [facility] [address] [place] [address] 10/26/2024 1:20 PM EDT Office Visit [address], [place] [address] Florentin Tillman MD [address] [place] [phone] documented as of this encounter Procedures Procedure [...] documented as of this encounter Care Teams Faith Healer Relationship Specialty Start Date End Date Edi Chase MD [address] [place] [address] PCP - General 03/14/20 Sam Sanchez MD [address] [place] [address] Consulting Physician Pulmonary Disease 08/11/22 Cayetano Cnanon MD [address] [place] [address] Referring Physician 08/11/22 documented as of this encounter
--- OUTSIDE RECORDS SUMMARY | 2024-09-10 15:59 | XMS_ITS | Encounter Summary ---
Author Organization Healthcare Address [address] [place] [address] Care Team Providers Care Health And Wellness Director Name Role Phone Edi Chase MD Primary Care Provider [phone] Sam Sanchez MD Unavailable [phone] Cayetano Cannon MD Unavailable [phone] Encounter Details Date Type Department Care Team (Late st Contact Info) Description 12/12/2023 Orders Only External Location [address] [place] [phone] Provider, External Social History Tobacco Use Types [...] AM EDT Appointment PAV H Neurophysiology 800 [facility] Pav H Room [address] [place] [address] 10/26/2024 1:20 PM EDT Office Visit [facility] [address] [place] [address] Florentin Tillman MD [address] [place] [address] documented as of this encounter Procedures Procedure [...] documented as of this encounter Care Teams Health And Wellness Director Relationship Specialty Start Date End Date Edi Chase MD [address] [place] [address] PCP - General 03/14/20 Sam Sanchez MD [address] [place] [address] Consulting Physician Pulmonary Disease 08/11/22 Cayetano Cannon MD [address] [place] [address] Referring Physician 08/11/22 documented as of this encounter
--- OUTSIDE RECORDS SUMMARY | 2024-09-10 16:00 | XMS_ITS | Clinical Summary ---
Author Organization [facility] Address [address] [place] [address] Phone Care Team Providers Care Blockmason Name Role Phone Unavailable Primary Care Provider [...] this topic Medical Devices Implanted Type Area Project Asst Device Identifier Shelf Expiration Date Model / Serial / Lot Stent Coronary Vision Rx 3.50mm X 18mm - [id number] Implanted:Qty: 1 on 03/16/2010 at [employer] Explanted:at [employer] (Quantity not on file) Stent-Vis ion LAD [facility]MAN LAB:VASC DEV [id number] / / [id number] Insurance [place]ARE [place] PART A [place] B [place] B
--- OUTSIDE RECORDS SUMMARY | 2024-09-10 16:00 | XMS_ITS | Encounter Summary ---
Author Organization [facility] Address [address] [place] [address] Care Team Providers Care Complaint Coordinator Name Role Phone Edi Chase MD Primary Care Provider [phone] Sam Sanchez MD Unavailable [phone] Cayetano Cannon MD Unavailable [phone] Encounter Details Date Type Department Care [...] How often do you attend chur or roman catholic services? Patient unable to answer 12/26/2023 Do [...] Questionnaire-2 Score 1 08/27/2024 [facility]ational Stress Questionnaire Answer [...] AM EDT Appointment PAV H Neurophysiology 800 [facility] [address] [place] [address] 10/26/2024 1:20 PM EDT Office Visit [facility] [address] [place] [address] Florentin Tillman MD [address] [place] [address] documented as of this encounter [...] documented as of this encounter Care Teams Complaint Coordinator Relationship Specialty Start Date End Date Edi Chase MD [address] [place] [address] PCP - General 03/14/20 Sam Sanchez MD [address] [place] [address] Consulting Physician Pulmonary Disease 08/11/22 Cayetano Cannon MD [address] [place] [id number] Referring Physician 08/11/22 documented as of this encounter
--- OUTSIDE RECORDS SUMMARY | 2024-09-10 16:00 | XMS_ITS | Clinical Summary ---
Author Organization Healthcare Address [address] [place] [address] Care Team Providers Care Montessori Preschool Teacher Name Role Phone Edi Chase MD Primary Care Provider [phone] Sam Sanchez MD Unavailable [phone] Cayetano Cannon MD Unavailable [phone] Allergies No known active allergies Medications [...] (one) time each day. Active HYDROcodone-rachel taminophen ([place]) 5-325 MG tablet Take 1 tablet (5 [...] Team Description 08/27/2024 1:00 PM EDT Consult [place] [facility] [address] [place] [address] Cuong Catherine MD Dizziness on standing (Primary Dx); Nonintractable episodic headache, unspecified headache type; Cerebrovascular accident (CVA), unspecified mechanism (CMS/HCC) 08/27/2024 Travel 08/22/2024 Telephone [place] [facility] [address], [address] [place] [address] Cuong Catherine MD from Last [...] answer 12/26/2023 How often do you attend [facility] or christianity services? Patient unable to answer 12/26/2023 Do you belong to any clubs o r organizations such as restorationism groups, unions, fraternal or athletic groups, or [...] Recorded Patient Health Questionnaire-2 Score 1 08/27/2024 [facility] - [...] Recorded In the past 12 months has [employer], gas, oil, or water company threatened to [...] AM EDT Appointment PAV H Neurophysiology 800 [facility] [address] [address] 10/26/2024 1:20 PM EDT Office Visit [facility] [address] [place] [address] Florentin Tillman MD [address] [place] [address] Health Maintenance Due Date Last Done Comments [facility]-Medicare Annual Wellness (AWV) 1950 [facility]-/Child/Adol SDOH Screenings 1950 [facility]-DTaP,Tdap,and Td Vaccines (1 - Tdap) 08/31/1967 [facility]-Pneumococcal Vaccine: 50+ Years (1 of 2 - PCV) 08/31/1967 [facility]-Zoster Vaccines (1 of 2) 08/31/1967 [id number] Vaccine (3 - Pfizer risk series) 05/10/2020 [...] Antibody Negative Negative 12/23/2023 6:55 PM EDT [facility] Blood Venous blood specimen / Unknown Venipuncture / Unknown 12/23/2023 5:39 PM EDT 12/23/2023 6:04 PM EDT Med Lyn MD LAB BLOOD ORDERABLES Final Result Performing Organization Address City/[facility]/ZIP Co de Phone Number [facility] [address] [place] [address] * (ABNORMAL) Hemoglobin A1c (12/23/2023 5:39 PM EDT) Hemoglobin A1c 6.3(H) <5.7 % 12/24/2023 12:22 AM EDT [facility] Blood Venous blood specimen / Unknown Venipuncture / Unknown 12/23/2023 5:39 PM EDT 12/23/2023 5:55 PM EDT Narrative [facility] - 12/24/2023 12:22 AM EDT HA1C Interpretive Data: Diagnosis of Diabetes: Diabetic > or = 6.5% Pre-diabetic 5.7 to 6.4% Non-diabetic < or = 5.6% Glycemic Targets for Type I and Type II Diabetics: Non- Adults <7.0% Adults <6.0% Children and Adolescents <7.5% Source: [place] Diabetes Association. Standards of medical care in diabetes,2017. Diabetes Care.2017:40 (suppl 1):S1-S135. HbA1c assay performed by an ion-exchange chromatography method that is certified traceable to the DCCT. 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 Yes Care Teams Montessori Preschool Teacher Relationship Specialty Start Date End Date Edi Chase MD [address] [place] [address] PCP - General 03/14/20 Sam Sanchez MD [address] [place] [address] Consulting Physician Pulmonary Disease 08/11/22 Cayetano Cannon MD [address] [place] [address] Referring Physician 08/11/22
--- OUTSIDE RECORDS SUMMARY | 2024-09-10 16:00 | XMS_ITS | Encounter Summary ---
Author Organization [facility] Address [address] [place] [id number] Care Team Providers Care Manager People Name Role Phone Edi Chase MD Primary Care Provider [phone] Sam Sanchez MD Unavailable [phone] Cayetano Cannon MD Unavailable [phone] Encounter Details Date Type Department Care Team (Late st Contact Info) Description 08/22/2024 Telephone [facility] [address], [address] [place] [address] Cuong Catherine MD [address] [place] [id number] Social History Tobacco Use Types Packs/Day Years [...] often do you attend chur ch or confucianism services? Patient unable to answer 12/26/2023 Do you belong to any clubs o r organizations such as episcopalian groups, unions, fraternal or athletic groups, or [...] one occasion? Patient unable to answer 12/26/2023 [facility] - [...] confirm 6-16 appt. Spoke with Devin at [facility], she will check with licensed mortgage loan officer. Gave phone number and address. documented in this encounter Plan of Treatment Upcoming Encounters Date Type Department Care Team ([facility] st Contact Info) Description 10/16/2024 8:00 AM EDT Appointment PAV H Neurophysiology 800 [facility] [address] [place] [address] 10/26/2024 1:20 PM EDT Office Visit [facility] [address] [place] [address] Florentin Tillman MD [address] [place] [address] documented as of this encounter Visit Diagnoses [...] as of this encounter Care Teams Manager People Relationship Specialty Start Date End Date Edi Chase MD [address] [place] [address] PCP - General 03/14/20 Sam Sanchez MD [address] [place] [address] Consulting Physician Pulmonary Disease 08/11/22 Cayetano Cannon MD [address] [place] [address] Referring Physician 08/11/22 documented as of this encounter
--- NOTE | 2024-09-10 17:11 | P.PN_ITS ---
Subjective *Date: 09/10/24 *Time: 21:53 Interval history: Still having chest pain, reproducible on exam. Stable on 2 L oxygen. -3.3 L since admission. Cardiology evaluating today. Stress test pending. Medical Exam Vital signs and Labs for Last 24 Hours: Vital Signs Temp Pulse Pulse Resp BP BP Pulse Ox 09/10/24 16:53 09/10/24 15:34 98 F 76 16 179/94 H 95 09/10/24 15:00 09/10/24 12:36 09/10/24 12:00 68 09/10/24 12:00 98.2 F 60 16 159/66 H 09/10/24 08:00 09/10/24 08:00 59 L 09/10/24 08:00 98 F 60 16 169/78 H 98 09/10/24 07:32 09/10/24 06:48 09/10/24 05:00 09/10/24 04:00 97.6 F 60 16 145/78 H 92 L 09/10/24 04:00 50 L 09/10/24 02:57 09/10/24 01:00 09/10/24 00:00 60 09/09/24 23:43 98.1 F 56 L 17 150/82 H 96 09/09/24 23:30 55 L 96 09/09/24 23:19 98.1 F 60 16 150/82 H 09/09/24 22:31 56 L 16 165/92 H 96 09/09/24 22:01 56 L 17 163/86 H 95 09/09/24 21:31 58 L 20 164/89 H 95 09/09/24 21:19 94 L 09/09/24 21:15 98.1 F 59 L 16 156/89 H 89 L O2 Del Method O2 Flow Rate 09/10/24 16:53 Nasal Cannula 2 09/10/24 15:34 Nasal Cannula 09/10/24 15:00 Nasal Cannula 2 09/10/24 12:36 Nasal Cannula 2 09/10/24 12:00 09/10/24 12:00 09/10/24 08:00 Nasal Cannula 2 09/10/24 08:00 09/10/24 08:00 Nasal Cannula 09/10/24 07:32 Nasal Cannula 2 09/10/24 06:48 Nasal Cannula 2 09/10/24 05:00 Nasal Cannula 2 09/10/24 04:00 Nasal Cannula 2 09/10/24 04:00 09/10/24 02:57 Nasal Cannula 2 09/10/24 01:00 Nasal Cannula 2 09/10/24 00:00 09/09/24 23:43 Nasal Cannula 2 09/09/24 23:30 Nasal Cannula 2 09/09/24 23:19 Nasal Cannula 2 09/09/24 22:31 Nasal Cannula 2 09/09/24 22:01 Nasal Cannula 2 09/09/24 21:31 2 09/09/24 21:19 Nasal Cannula 2 09/09/24 21:15 Room Air Intake and Output 09/10/24 09/10/24 09/10/24 07:59 15:59 23:59 Intake Total 360 / 860 500 / 860 Output Total 3300 / 3300 Balance -3300 / -2440 360 / -2440 500 / -2440 Intake: Intake, Oral Amount 360 / 360 Intake, Total IV Amount 500 / 500 Lactated Ringers 1000ML 500 ml 500 / 500 @ 250 mls/hr IV .Q2H ONE Rx#: [id number] Output: Output, Urine Amount 2500 / 2500 Output, Urine Amount (Catheter) 800 / 800 Jason 800 / 800 Other: Weight 119.748 kg Patient Weight 09/10/24 23:59 Weight 119.748 kg Laboratory Results - last 24 hr 09/09/24 21:19: WBC 5.7, RBC 3.52 L, Hgb 10.2 L, Hct 31.9 L, MCV 90.6, MCH 29.0, MCHC 32.0, RDW 14.5, Plt Count 242, MPV 9.4, Neut % (Auto) 74.2, Lymph % (Auto) 9.4 L, [place] % (Auto) 9.6 H, Eos % (Auto) 5.9, Baso % (Auto) 0.7, Neut # (Auto) 4.3, Lymph # (Auto) 0.5 L, [place] # (Auto) 0.6, Eos # (Auto) 0.3, Baso # (Auto) 0.0, Total Counted 100, Neutrophils % (Manual) 69, Lymphocytes % (Manual) 16, Monocytes % (Manual) 7, Eosinophils % (Manual) 8 H, Nucleated RBCs 1, Platelet Estimate Normal, RBC Morphology Normal, APTT 29.6, Sodium 136, Potassium 3.8, Chloride 98, Carbon Dioxide 28, Anion Gap 13.8, BUN 32 H, Creatinine 1.80 H, Estimated Creat Clear 60, Estimated GFR 37 L, Est GFR ( Amer) 45 L, Glucose 153 H, Calcium 9.6, Magnesium 1.8, Total Bilirubin 0.3, AST 21, ALT 13, Alkaline Phosphatase 74, Troponin I 0.02, NT-Pro-B Natriuret Pep 1790 H, Total Protein 7.0, Albumin 3.7, Globulin 3.3 H, Albumin/Globulin Ratio 1.1 09/09/24 21:20: VBG pH 7.36, VBG pCO2 47.3, VBG pO2 40.6 H, VBG HCO3 26.2, VBG Total CO2 27.6 H, VBG O2 Saturation 70.2 H, VBG Base Excess 0.8, VBG Lactic Acid 1.6 09/10/24 00:26: Troponin I < 0.01 09/10/24 03:29: Troponin I 0.02 09/10/24 05:51: POC Glucose 87 09/10/24 13:15: Sodium 140, Potassium 4.0, Chloride 98, Carbon Dioxide 31 H, Anion Gap 15.0, BUN 32 H, Creatinine 1.80 H, Estimated Creat Clear 59, Estimated GFR 37 L, Est GFR ( Amer) 45 L, Glucose 88 D, Calcium 9.2, Phosphorus 3.7, Magnesium 1.8, Total Bilirubin 0.2, AST 22, ALT 15, Alkaline Phosphatase 82, Total Protein 7.4, Albumin 4.1 D, Globulin 3.3 H, Albumin/Globulin Ratio 1.2, Triglycerides 152 H, Cholesterol 133 L, LDL Cholesterol Direct 51.99 L, VLDL Cholesterol 30, HDL Cholesterol 32 L, Cholesterol/HDL Ratio 4.2 H 09/10/24 14:40: WBC 7.4 D, RBC 3.70 L, Hgb 10.9 L, Hct 32.8 L, MCV 88.6, MCH 29.5, MCHC 33.2, RDW 14.3, Plt Count 248, MPV 9.6, Neut % (Auto) 80.9 H, Lymph % (Auto) 6.9 L, [place] % (Auto) 8.5, Eos % (Auto) 3.1, Baso % (Auto) 0.5, Neut # (Auto) 6.0, Lymph # (Auto) 0.5 L, [place] # (Auto) 0.6, Eos # (Auto) 0.2, Baso # (Auto) 0.0, Total Counted 100, Neutrophils % (Manual) 70, Lymphocytes % (Manual) 20, Monocytes % (Manual) 6, Eosinophils % (Manual) 4 H, Platelet Estimate Normal, Giant Platelets 1+, Polychromasia 1+, Poikilocytosis 1+, Anisocytosis 1+, Macrocytosis 1+, Target Cells 1+, Tear Drop Cells 1+, Ovalocytes 1+ I & O for Labs for Last 24 Hours: Intake & Output 09/07/24 09/08/24 09/09/24 09/10/24 23:59 23:59 23:59 23:59 Intake Total 860 / 860 Output Total 3300 / 3300 Balance -2440 / -2440 Weight 121.563 kg 119.748 kg Constitutional: Present no acute distress, obese, chronically ill appearing and cooperative Head: Present atraumatic and normocephalic Comment:: Vision impaired, eyes with opacification of corneas bilaterally Respiratory: Present rhonchi (Left upper lung field) and normal respiratory effort; Absent wheezes or crackles Cardiac: Present Reg Rate and Rhythm Comment:: Left chest tender to palpation GI: Present soft and normal bowel sounds; Absent distention or tenderness Extremities: Present normal inspection and full ROM Skin: Present intact; Absent erythema Neuro: Present Grossly Intact, alert, awake, oriented x 3 and moves all extremities Assessment and Plan *Assessment and plan (1) Chest pain: Status: Acute Category: Medical Code(s): R07.9 - Chest pain, unspecified (2) CHF exacerbation: Status: Acute Category: Medical Code(s): I50.9 - Heart failure, unspecified (3) PAF (paroxysmal atrial fibrillation): Status: Acute Category: Medical Code(s): I48.0 - Paroxysmal atrial fibrillation (4) Lung cancer: Status: Acute Category: Medical Code(s): C34.90 - Malignant neoplasm of unspecified part of unspecified bronchus or lung (5) CKD (chronic kidney disease) stage 4, GFR 15-29 ml/min: Status: Acute Category: Medical Code(s): N18.4 - Chronic kidney disease, stage 4 (severe) (6) Obesity (BMI 30.0-34.9): Status: Chronic Category: Medical Code(s): E66.811 - Obesity, class 1 (7) COPD mixed type: Status: Acute Category: Medical Code(s): J44.9 - Chronic obstructive pulmonary disease, unspecified (8) Chronic hypoxic respiratory failure, on home oxygen therapy: Status: Acute Category: Medical Code(s): J96.11 - Chronic respiratory failure with hypoxia; Z99.81 - Dependence on supplemental oxygen (9) Polycystic kidney disease: Status: Acute Category: Medical Code(s): Q61.3 - Polycystic kidney, unspecified (10) Blind: Status: Acute Qualifiers: Right eye visual impairment category: right - unspecified blindness Left eye visual impairment category: left - unspecified blindness Qualified Code(s): H54.3 - Unqualified visual loss, both eyes Category: Medical Code(s): H54.7 - Unspecified visual loss Plan 74-year-old male multiple cardiovascular risk factors including prior obstructi ve CAD with PCI to LAD presenting with chest pain 2 weeks duration. Responding well to diuresis. Still having left chest pain. Stress test performed today that showed area of reversible ischemia. Cardiology evaluated patient, discussed risks and benefits of left heart cath. Will proceed with left heart cath in the morning. CTA of the chest obtained to evaluate for possible PE. Read pending. Problems addressed as follows: Acute chest pain Coronary artery disease status post PCI LAD HFpEF, acute on chronic Paroxysmal A-fib - Echo obtained today with EF 50 to 55%. - Discussed case with cardiology, given preliminary stress test findings of reversible ischemia, recommend left heart cath. Patient amenable. N.p.o. at midnight for left heart cath in the morning - Continue aspirin 81 mg daily, Lipitor 40 mg daily, Lasix 20 mg daily, metoprolol succinate 100 mg daily, Eliquis 2.5 mg twice daily and Jardiance 10 mg daily. - Continue to monitor on telemetry - Having good response to diuresis -3 L since admission Polycystic kidney disease CKD BPH - BUN 32, creatinine 1.8. Kidney function appears at baseline. Potassium 4.0, sodium 140 - Repeat CBC, CMP, magnesium ordered for the morning - Continue chronic Jason Lung cancer Colon cancer - White count remains normal at 7.4, hemoglobin 10.9. White count neutrophil predominant - If chest pain does not collar turner to be cardiac, likely related to his cancer. - Continue Tylenol 650 mg as needed every 4 hours - Continue home gabapentin 100 mg twice daily - Continue hydrocodone 5 mg as needed every 4 hours. Monitor for toxicity Anemia, stable - Iron studies and IV iron if LV function is reduced for morbidity and improvement of heart failure symptoms; hemoglobin 10.9 Full code Cardiac diet, n.p.o. at midnight Eliquis DVT prophylaxis as above
[2024-09-10] MEDS: IOPAMIDOL-370 (76%);100ML BOTTLE 85 ML IV (17:24)
[2024-09-10] MEDS: 0.9 % SODIUM CHLORIDE 50 ML VIAL IV (17:24)
--- NOTE | 2024-09-10 17:25 | PC.NURSE ---
left floor to radiology at 17:14
--- NOTE | 2024-09-10 17:30 | PC.NURSE ---
back from radiology
--- NOTE | 2024-09-10 17:38 | PC.NURSE ---
PT IS RESTING IN BED. ALERT AND ORIENTED X4. EATING AND DRINKING WELL. PT HAS COMPLAINED OF SOME MILD TENDERNESS AT LEFT ANTERIOR CHEST. 1 ASSIST TO TRANSFER. LUNG SOUNDS DIMINISHED. ABDOMEN SOFT/NON TENDER WITH ACTIVE BOWEL SOUNDS. 1+ EDEMA NOTED TO BLE. CHRONIC FERNANDEZ DRAINING AT BEDSIDE. WILL CONTINUE TO MONITOR.
[2024-09-10] MEDS: ATORVASTATIN 40MG TABLET 40 MG PO (21:19)
[2024-09-10] MEDS: TAMSULOSIN 0.4MG CAPSULE 0.4 MG PO (21:19)
[2024-09-10] MEDS: PANTOPRAZOLE 40MG TABLET 40 MG PO (21:19)
[2024-09-10] MEDS: GABAPENTIN 100MG CAPSULE 100 MG PO (21:19)
--- NOTE | 2024-09-10 22:59 | CA_ITS ---
APPROVED REPORT EXAM: Limited 2D Echocardiogram Cost Accountant: Marybeth Mejia CRT Ht: 6 ft 4 in Wt: 268lbs BSA: 2.51 BP: 102/50 mmHg Indications: Chest Pain, heart failure, check heart function M-Mode Dimensions RVDd 3.98 cm (0.9-2.6) LA Diam 4.00 cm (1.9-4.0) LVDd 4.70 cm (3.5-5.7) LVDs 3.26 cm (3.5-5.7) IVSd 2.08 cm (0.6-1.1) PWd 1.23 cm (0.6-1.1) EF (Teich) 58.20% FS 30.60% EDV (Teich) 102.40 mL ESV (Teich) 42.80 mL Other Information Study Quality: Technically Difficult Conclusion This is a limited TTE to evaluate for LV systolic function. Limited windows are obtained. Technically difficult study. The left ventricle is normal in size. There is increased LV wall thickness. There is normal global LV systolic function. No regional wall motion abnormalities are present. LVEF is 50-55%. The right ventricle is mildly dilated. There is normal RV systolic function. Electronically signed by : Leigh Rosen MD 09/10/2024 12:51:18
[2024-09-11] VITALS (21 sets, daily range): BP systolic 127–185; BP diastolic 75–98; PULSE 60–73; RESP 14–20; TEMP 36.6–37.1; O2SAT 90–99; BMI 30.4
--- NOTE | 2024-09-11 05:25 | PC.NURSE ---
Pt A&OX4 and has remained on 3L nasal cannula. He has remained NPO since midnight for possible heart cath this AM. He has ambulated with X1 assist. Jason has remained in place and is draining well. No complaints at this time, call light within reach.
[2024-09-11 06:31] LABS: Hematocrit 32.6 % (42.0-52.0); Hemoglobin 10.5 g/dL (14.1-18.0); Immature Granulocytes % 0.2 %; Mean Corpuscular HGB Conc 32.2 g/dL (31.8-35.4); Mean Corpuscular Hemoglobin 28.5 pg (27.0-31.2); Mean Corpuscular Volume 88.6 fl (80-94); Nucleated Red Blood Cells % 0 %; Platelet Count 255 K/mm3 (142-424); Red Blood Count 3.68 M/mm3 (4.60-6.20); Red Cell Distribution Width-SD 46.2 fL; White Blood Count 6.3 K/mm3 (4.8-10.8)
[2024-09-11 06:45] LABS: Alanine Aminotransferase 14 U/L (12-78); Albumin Level 3.9 g/dl (3.5-5.0); Albumin/Globulin Ratio 1.1 (1.1-1.8); Alkaline Phosphatase 76 U/L (38-126); Anion Gap 13.7 mEq/L (5-15); Aspartate Amino Transferase 26 U/L (17-59); Bilirubin,Total 0.3 mg/dl (0.2-1.3); Blood Urea Nitrogen 34 mg/dl (9-20); Calcium 9.3 mg/dl (8.4-10.2); Carbon Dioxide 30 mmol/L (22.0-30.0); Chloride 97 mmol/L (98-107); Creatinine Clearance Estimated 48 mL/min (50-200); Creatinine,Serum 2.10 mg/dl (0.66-1.25); Estimated Glomerular Filt Rate 31 ml/min (>60); GFR (African American) 37 ML/MIN (>60); Globulin 3.4 g/dL (1.3-3.2); Glucose 105 mg/dl (74-100); Magnesium 1.8 mg/dl (1.6-2.3); Potassium 3.7 mmoL/L (3.5-5.1); Sodium 137 mmol/L (136-145); Total Protein,Serum 7.3 g/dl (6.3-8.2)
--- NOTE | 2024-09-11 07:04 | IR_ITS ---
APPROVED REPORT Patient Location: Inpatient PROCEDURES Left heart catheterization Selective coronary angiogram Drug-eluting stent deployment to the proximal and mid LAD in a contiguous manner with 3 drug-eluting stents INDICATION Unstable angina, Coronary artery disease Informed consent was obtained prior to the procedure. COMPLICATIONS NONE Estimated Blood Loss: LESS THAN 10 ML TECHNIQUE One percent lidocaine used to anesthetize the right anterior aspect of the wrist. The right radial artery was accessed via the Seldinger technique. A 6 Ukrainian sheath was placed in the right radial artery. 2.5 mg of Verapamil, 800 mcg of nitroglycerin, 1mg Lidocaine and 5000 U Heparin were given through the arterial sheath. The JL3 catheter was also used to perform left heart catheterization and selective coronary angiogram. At the end the diagnostic angiogram therapeutic Was administered to make at therapeutic ACT and the guide cath was placed in left main artery followed by Choice PT extra-support wire placed down the LAD. A 3.5 x 38 mm Hamzah frontier stent was deployed at 20 monica in the mid to proximal LAD. An additional 4 mm x 26 mm Hamzah frontier stent was placed proximal to the for stent yet still overlapping and deployed at 16 monica. The balloon was advanced in between the 2 stents as well as within the midportion of the 3.5 mm stent deployed at 16 monica to post dilate. An additional 3.5 x 12 mm Billingsley frontier stent was placed distal to the for stent yet still over lapping and deployed distally at 16 monica the balloon was brought back and put at 20 monica to match the 2 stents. After achieving excellent angiograph results MARLENE II flow had improved to MARLENE-3 flow the apparatus was removed the sheath was removed and hemostasis was achieved using TR banding patient was transferred to the postop putting in stable condition ANGIOGRAPHIC RESULTS The left main artery Normal The left anterior descending artery Has a proximal 70% stenosis and a mid vessel long concentric 70% stenosis The circumflex artery Large and dominant with diffuse 10% luminal regularities The right coronary artery Nondominant yet still large with proximal 40% stenosis in the mid vessel 40% stenosis The JIMENEZ ventriculogram reveals Not performed The left ventricular end-diastolic pressure 25 mmHg IMPRESSION Severe proximal and mid LAD disease accompanied by MARLENE II flow which improved to MARLENE-3 flow following 3 contiguous drug-eluting stents reducing the stenosis to 0% Persistent moderate disease in the right coronary artery as described above Elevated LVEDP PLAN 1. Dual antiplatelet therapy 2. Cardiac rehabilitation 3. Avoidance of tobacco products 4. Recheck labs tomorrow morning while monitoring for contrast nephropathy 5. Gentle IV fluids 6. LDL less than 55 to achieve that high intensity statin 7. Formal echocardiogram Electronically signed by : Slava Dodge MD 09/11/2024 12:26:55
[2024-09-11] MEDS: EMPAGLIFLOZIN 10MG TABLET 10 MG PO (08:47)
[2024-09-11] MEDS: METOPROLOL SUCCINATE XL 100MG TABLET 100 MG PO (08:47)
[2024-09-11] MEDS: ASPIRIN 81MG CHEWABLE TABLET 81 MG PO (08:47)
[2024-09-11] MEDS: FUROSEMIDE 20MG TABLET 20 MG PO (08:47)
[2024-09-11] MEDS: ESCITALOPRAM 10MG TABLET 5 MG PO (08:48)
[2024-09-11] MEDS: ISOSORBIDE MONO 30MG TAB.ER.24H 30 MG PO (08:48)
[2024-09-11] MEDS: FINASTERIDE 5MG TABLET 5 MG PO (08:48)
[2024-09-11] MEDS: TIMOLOL 0.5% OPTH SOLN 5ML OP (08:49)
[2024-09-11] MEDS: GABAPENTIN 100MG CAPSULE 100 MG PO ×2 (08:54→20:07)
[2024-09-11] MEDS: FLUTICASONE/UMECLIDIN/VILANTER 100/62.5/25MCG INHALER 1 PUFF IH (10:34)
--- NOTE | 2024-09-11 10:50 | EXP.CARD.PN ---
Subjective Subjective Date: 09/11/24 Time: 08:00 Principal diagnosis: chest pain, abnormal stress Interval history: Patient denies complaints this morning. Left heart catheterization is pending. Morning labs reviewed. Exam Data for Last 24 hours Vital signs and Labs for Last 24 Hours: Temp Pulse Resp BP Pulse Ox O2 Del Method O2 Flow Rate 98.8 F 68 20 165/98 H 99 Nasal Cannula 3 09/11/24 08:00 09/11/24 08:00 09/11/24 08:00 09/11/24 08:00 09/11/24 08:00 09/11/24 08:00 09/11/24 08:00 Laboratory Results - last 24 hr 09/10/24 13:15: Sodium 140, Potassium 4.0, Chloride 98, Carbon Dioxide 31 H, Anion Gap 15.0, BUN 32 H, Creatinine 1.80 H, Estimated Creat Clear 59, Estimated GFR 37 L, Est GFR ( Amer) 45 L, Glucose 88 D, Calcium 9.2, Phosphorus 3.7, Magnesium 1.8, Total Bilirubin 0.2, AST 22, ALT 15, Alkaline Phosphatase 82, Total Protein 7.4, Albumin 4.1 D, Globulin 3.3 H, Albumin/Globulin Ratio 1.2, Triglycerides 152 H, Cholesterol 133 L, LDL Cholesterol Direct 51.99 L, VLDL Cholesterol 30, HDL Cholesterol 32 L, Cholesterol/HDL Ratio 4.2 H 09/10/24 14:40: WBC 7.4 D, RBC 3.70 L, Hgb 10.9 L, Hct 32.8 L, MCV 88.6, MCH 29.5, MCHC 33.2, RDW 14.3, Plt Count 248, MPV 9.6, Neut % (Auto) 80.9 H, Lymph % (Auto) 6.9 L, Clare % (Auto) 8.5, Eos % (Auto) 3.1, Baso % (Auto) 0.5, Neut # (Auto) 6.0, Lymph # (Auto) 0.5 L, Clare # (Auto) 0.6, Eos # (Auto) 0.2, Baso # (Auto) 0.0, Total Counted 100, Neutrophils % (Manual) 70, Lymphocytes % (Manual) 20, Monocytes % (Manual) 6, Eosinophils % (Manual) 4 H, Platelet Estimate Normal, Giant Platelets 1+, Polychromasia 1+, Poikilocytosis 1+, Anisocytosis 1+, Macrocytosis 1+, Target Cells 1+, Tear Drop Cells 1+, Ovalocytes 1+ 09/11/24 05:35: WBC 6.3, RBC 3.68 L, Hgb 10.5 L, Hct 32.6 L, MCV 88.6, MCH 28.5, MCHC 32.2, RDW 14.3, Plt Count 255, MPV 9.9, Neut % (Auto) 78.6, Lymph % (Auto) 9.2 L, Clare % (Auto) 9.4 H, Eos % (Auto) 2.1, Baso % (Auto) 0.5, Neut # (Auto) 4.9, Lymph # (Auto) 0.6 L, Clare # (Auto) 0.6, Eos # (Auto) 0.1, Baso # (Auto) 0.0, Sodium 137, Potassium 3.7, Chloride 97 L, Carbon Dioxide 30, Anion Gap 13.7, BUN 34 H, Creatinine 2.10 H, Estimated Creat Clear 48, Estimated GFR 31 L, Est GFR ( Amer) 37 L, Glucose 105 H, Calcium 9.3, Magnesium 1.8, Total Bilirubin 0.3, AST 26, ALT 14, Alkaline Phosphatase 76, Total Protein 7.3, Albumin 3.9, Globulin 3.4 H, Albumin/Globulin Ratio 1.1 I & O for Last 24 hours: Intake & Output 09/08/24 09/09/24 09/10/24 09/11/24 23:59 23:59 23:59 23:59 Intake Total 1220 / 1370 150 / 150 Output Total 4050 / 4050 1550 / 1550 Balance -2830 / -2680 -1400 / -1400 Weight 268 lb 264 lb 250 lb Constitutional Constitutional: no acute distress *Routine Respiratory Exam Respiratory: Present CTA bilaterally and symmetric chest movement *Routine Cardiovascular Exam Cardiovascular: Present RRR, Normal S1 and Normal S2 *Routine Abdominal Exam Abdominal: Present soft and normoactive bowel sounds; Absent tenderness *Routine Extremities Exam Extremities: Present full ROM and normal capillary refill; Absent edema *Routine Skin Exam Skin: Present intact, dry and warm Detailed Neck Exam: Thyroids Thyroid: Absent bruit Progress Note: A&P Assessment and plan (1) Chest pain: Status: Acute (2) CHF exacerbation: Status: Acute (3) PAF (paroxysmal atrial fibrillation): Status: Acute (4) Lung cancer: Status: Acute (5) CKD (chronic kidney disease) stage 4, GFR 15-29 ml/min: Status: Acute (6) Obesity (BMI 30.0-34.9): Status: Chronic (7) COPD mixed type: Status: Acute (8) Chronic hypoxic respiratory failure, on home oxygen therapy: Status: Acute (9) Polycystic kidney disease: Status: Acute (10) Blind: Status: Acute Assessment and Plan Assessment and Plan for All Diagnoses:: History of coronary artery disease Chest wall pain/left arm pain History of left lobe adenocarcinoma Serial troponins remain negative EKG without acute ischemic changes noted Tenderness noted with palpation of left breast and movement of left arm Repeat limited echo EF is 50-55% Nuclear stress test shows small area of reversible ischemia noted, see read CTA negative for PE LHC pending Continue aspirin 81 mg p.o. daily and atorvastatin 40 mg p.o. daily Acute on chronic HFpEF Per notes patient was volume overloaded on admission. Initial BNP 1790 Was given Lasix 80 mg IV x 1 Has diuresed well-denies shortness of breath and is maintaining oxygen saturation of 98% on 2 Liters (home O2 requirements) Continue Lasix 20 mg p.o. daily Continue Jardiance 10 mg p.o. daily History of paroxysmal atrial fibrillation- Chadsvasc score > 2 Toprol 100 mg p.o. daily and Eliquis 2.5 mg p.o. twice daily Hypertension Continue Toprol 100 mg p.o. daily Continue Lasix 20 mg p.o. daily Chronic kidney disease Baseline creatinine 2?2.2 Creatinine today 2.1 Will continue Lasix 20 mg p.o. daily for gentle diuresis and blood pressure control 09/11/2024 Summary: Left heart catheterization pending. Cardiac meds: Aspirin 81 mg p.o. daily Atorvastatin 40 mg p.o. daily Lasix 20 mg p.o. daily Toprol 100 mg p.o. daily Eliquis 2.5 mg p.o. twice daily-resume after nuclear stress test if cath is not needed Jardiance 10 mg p.o. daily
[2024-09-11] MEDS: 0.9 % SODIUM CHLORIDE 500 ML 25 ML IV (11:15)
[2024-09-11] MEDS: HEPARIN 1,000 UNITS/ML 10ML VIAL (CATH LAB) 5000 UNIT IV ×2 (11:15→12:15)
[2024-09-11] MEDS: LIDOCAINE 1% 10ML MDV 10 ML IJ (11:15)
[2024-09-11] MEDS: NITROGLYCERIN 800MCG/8ML SYR (CATH LAB) 800 MCG IA (11:16)
[2024-09-11] MEDS: HEPARIN 1,000 UNITS/500ML NS (CATH LAB) 3000 UNIT IV (11:16)
[2024-09-11] MEDS: VERAPAMIL 2.5MG/ML 2ML VIAL 2.5 MG IV (11:16)
[2024-09-11] MEDS: FENTANYL 100MCG/2ML VIAL 50 MCG IV (12:16)
[2024-09-11] MEDS: MIDAZOLAM HCL 1MG/ML 5ML VIAL 1 MG IV (12:16)
[2024-09-11] MEDS: IOPAMIDOL-370 (76%);100ML BOTTLE 60 ML IV (14:13)
--- NOTE | 2024-09-11 15:28 | PC.NURSE ---
PT IS RESTING IN BED. ALERT AND ORIENTED X4. EATING AND DRINKING WELL. CATH VSS. O2 SATURATION HAS MAINTAINED 90-96% ON 2-3 L NC. LUNG SOUNDS CLEAR. ABDOMEN SOFT/NON TENDER WITH ACTIVE BOWEL SOUNDS. 1+ EDEMA NOTED TO BLE. WILL CONTINUE TO MONITOR.
[2024-09-11 16:06] LABS: CATHL Activated Clotting Time 313 SEC (74-125)
--- NOTE | 2024-09-11 18:52 | EXP.ACUTE.PN ---
Subjective *Date: 09/11/24 *Time: 23:00 Interval history: Stable on baseline 2 L. Chest pain stable. Taken for heart cath today. No nausea or vomiting. Alert oriented to baseline. Afebrile. Medical Exam Vital signs and Labs for Last 24 Hours: Vital Signs Temp Pulse Pulse Resp BP Pulse Ox O2 Del Method 09/11/24 18:35 64 18 138/84 95 Nasal Cannula 09/11/24 18:27 Nasal Cannula 09/11/24 17:35 66 16 141/84 H 94 L Nasal Cannula 09/11/24 16:42 Nasal Cannula 09/11/24 16:35 66 20 139/78 96 Nasal Cannula 09/11/24 16:00 60 09/11/24 15:35 63 16 142/80 H 94 L Nasal Cannula 09/11/24 15:05 60 14 134/88 96 Nasal Cannula 09/11/24 14:37 Nasal Cannula 09/11/24 14:35 62 16 183/93 H 95 Nasal Cannula 09/11/24 14:05 60 18 165/83 H 96 Nasal Cannula 09/11/24 13:35 60 16 145/85 H 95 Nasal Cannula 09/11/24 13:20 62 16 139/75 96 Nasal Cannula 09/11/24 13:11 61 16 127/80 94 L Nasal Cannula 09/11/24 12:54 Nasal Cannula 09/11/24 12:50 97.9 F 61 18 142/91 H 90 L Nasal Cannula 09/11/24 12:35 62 20 162/91 H 90 L Nasal Cannula 09/11/24 12:30 60 20 159/90 H 90 L Nasal Cannula 09/11/24 12:27 61 20 147/88 H 91 L Nasal Cannula 09/11/24 12:20 63 20 146/93 H 90 L Nasal Cannula 09/11/24 12:16 60 63 16 146/93 H 92 L Nasal Cannula 09/11/24 10:54 Nasal Cannula 09/11/24 08:00 70 09/11/24 08:00 Nasal Cannula 09/11/24 08:00 98.8 F 68 20 165/98 H 99 Nasal Cannula 09/11/24 07:35 Nasal Cannula 09/11/24 06:47 Nasal Cannula 09/11/24 05:00 Nasal Cannula 09/11/24 04:00 97.8 F 68 20 169/97 H 98 Nasal Cannula 09/11/24 04:00 60 09/11/24 03:00 Nasal Cannula 09/11/24 01:00 Nasal Cannula 09/11/24 00:00 70 09/11/24 00:00 98.8 F 73 18 185/95 H 98 Nasal Cannula 09/10/24 23:00 Nasal Cannula 09/10/24 21:00 Nasal Cannula 09/10/24 20:00 Nasal Cannula 09/10/24 20:00 90 09/10/24 19:44 98.6 F 71 20 195/90 H 97 Nasal Cannula O2 Flow Rate 09/11/24 18:35 2 09/11/24 18:27 2 09/11/24 17:35 2 09/11/24 16:42 3 09/11/24 16:35 2 09/11/24 16:00 09/11/24 15:35 3 09/11/24 15:05 3 09/11/24 14:37 3 09/11/24 14:35 3 09/11/24 14:05 3 09/11/24 13:35 3 09/11/24 13:20 3 09/11/24 13:11 3 09/11/24 12:54 3 09/11/24 12:50 3 09/11/24 12:35 09/11/24 12:30 2 09/11/24 12:27 2 09/11/24 12:20 2 09/11/24 12:16 2 09/11/24 10:54 2 09/11/24 08:00 09/11/24 08:00 09/11/24 08:00 3 09/11/24 07:35 2 09/11/24 06:47 3 09/11/24 05:00 3 09/11/24 04:00 3 09/11/24 04:00 09/11/24 03:00 3 09/11/24 01:00 3 09/11/24 00:00 09/11/24 00:00 3 09/10/24 23:00 3 09/10/24 21:00 3 09/10/24 20:00 3 09/10/24 20:00 09/10/24 19:44 3 Intake and Output 09/11/24 09/11/24 09/11/24 07:59 15:59 23:59 Intake Total 150 / 630 480 / 630 Output Total 1100 / 2950 900 / 2950 950 / 2950 Balance -950 / -2320 -900 / -2320 -470 / -2320 Intake: Intake, Oral Amount 150 / 630 480 / 630 Output: Output, Urine Amount 1100 / 2950 900 / 2950 950 / 2950 Other: Number of Unmeasured Voids 0 0 0 Weight 113.398 kg Patient Weight 09/11/24 23:59 Weight 113.398 kg Laboratory Results - last 24 hr 09/11/24 05:35: WBC 6.3, RBC 3.68 L, Hgb 10.5 L, Hct 32.6 L, MCV 88.6, MCH 28.5, MCHC 32.2, RDW 14.3, Plt Count 255, MPV 9.9, Neut % (Auto) 78.6, Lymph % (Auto) 9.2 L, [place] % (Auto) 9.4 H, Eos % (Auto) 2.1, Baso % (Auto) 0.5, Neut # (Auto) 4.9, Lymph # (Auto) 0.6 L, [place] # (Auto) 0.6, Eos # (Auto) 0.1, Baso # (Auto) 0.0, Sodium 137, Potassium 3.7, Chloride 97 L, Carbon Dioxide 30, Anion Gap 13.7, BUN 34 H, Creatinine 2.10 H, Estimated Creat Clear 48, Estimated GFR 31 L, Est GFR ( Amer) 37 L, Glucose 105 H, Calcium 9.3, Magnesium 1.8, Total Bilirubin 0.3, AST 26, ALT 14, Alkaline Phosphatase 76, Total Protein 7.3, Albumin 3.9, Globulin 3.4 H, Albumin/Globulin Ratio 1.1 09/11/24 11:54: Activated Clotting Time 313 H* I & O for Labs for Last 24 Hours: Intake & Output 09/08/24 09/09/24 09/10/24 09/11/24 23:59 23:59 23:59 23:59 Intake Total 1220 / 1370 630 / 630 Output Total 4050 / 4050 2950 / 2950 Balance -2830 / -2680 -2320 / -2320 Weight 121.563 kg 119.748 kg 113.398 kg Constitutional: Present no acute distress, obese, chronically ill appearing and cooperative Head: Present atraumatic and normocephalic Comment:: Vision impaired, eyes with opacification of corneas bilaterally Respiratory: Present rhonchi (Left upper lung field) and normal respiratory effort; Absent wheezes or crackles Cardiac: Present Reg Rate and Rhythm Comment:: Left chest tender to palpation GI: Present soft and normal bowel sounds; Absent distention or tenderness Extremities: Present normal inspection and full ROM Skin: Present intact; Absent erythema Neuro: Present Grossly Intact, alert, awake, oriented x 3 and moves all extremities Assessment and Plan *Assessment and plan (1) Chest pain: Status: Acute Category: Medical Code(s): R07.9 - Chest pain, unspecified (2) CHF exacerbation: Status: Acute Category: Medical Code(s): I50.9 - Heart failure, unspecified (3) PAF (paroxysmal atrial fibrillation): Status: Acute Category: Medical Code(s): I48.0 - Paroxysmal atrial fibrillation (4) Lung cancer: Status: Acute Category: Medical Code(s): C34.90 - Malignant neoplasm of unspecified part of unspecified bronchus or lung (5) CKD (chronic kidney disease) stage 4, GFR 15-29 ml/min: Status: Acute Category: Medical Code(s): N18.4 - Chronic kidney disease, stage 4 (severe) (6) Obesity (BMI 30.0-34.9): Status: Chronic Category: Medical Code(s): E66.811 - Obesity, class 1 (7) COPD mixed type: Status: Acute Category: Medical Code(s): J44.9 - Chronic obstructive pulmonary disease, unspecified (8) Chronic hypoxic respiratory failure, on home oxygen therapy: Status: Acute Category: Medical Code(s): J96.11 - Chronic respiratory failure with hypoxia; Z99.81 - Dependence on supplemental oxygen (9) Polycystic kidney disease: Status: Acute Category: Medical Code(s): Q61.3 - Polycystic kidney, unspecified (10) Blind: Status: Acute Qualifiers: Right eye visual impairment category: right - unspecified blindness Left eye visual impairment category: left - unspecified blindness Qualified Code(s): H54.3 - Unqualified visual loss, both eyes Category: Medical Code(s): H54.7 - Unspecified visual loss Plan 74-year-old male multiple cardiovascular risk factors including prior obstructive CAD with PCI to LAD presenting with chest pain 2 weeks duration. Responding well to diuresis. Still having left chest pain. Stress test performed today that showed area of reversible ischemia. Cardiology evaluated patient, discussed risks and benefits of left heart cath. Taken for left heart cath this morning. Stents placed. Cardiology continues to assist with care. Problems addressed as follows: Acute chest pain Coronary artery disease status post PCI LAD HFpEF, acute on chronic Paroxysmal A-fib - Echo obtained with EF [address] of chest showed left apical mass is smaller with some adjacent bronchovascular lymphangitic infiltration. Regular pleural thickening concerning for posttreatment changes and some radiation pneumonitis. May account for some of his pain - Left heart cath performed with severe proximal and mid LAD disease. 3 stents placed. Improved flow. Continue DAPT therapy - Continue aspirin 81 mg daily, Lipitor 40 mg daily, Lasix 20 mg daily, metoprolol succinate 100 mg daily, Eliquis 2.5 mg twice daily and Jardiance 10 mg daily. - Continue to monitor on telemetry - Having good response to diuresis -4 L since admission Polycystic kidney disease CKD BPH - BUN 34, creatinine 2.1. 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 - Continue Tylenol 650 mg as needed every 4 hours - Continue home gabapentin 100 mg twice daily - Continue hydrocodone 5 mg as needed every 4 hours. Monitor for toxicity Anemia, stable - Iron studies and IV iron if LV function is reduced for morbidity and improvement of heart failure symptoms; hemoglobin stable Full code Cardiac diet Eliquis DVT prophylaxis as above
[2024-09-11] MEDS: PANTOPRAZOLE 40MG TABLET 40 MG PO (20:07)
[2024-09-11] MEDS: ATORVASTATIN 40MG TABLET 40 MG PO (20:07)
[2024-09-11] MEDS: HEPARIN SODIUM 5,000 UNIT/ML VIAL 5000 UNIT SUBCUT (20:07)
[2024-09-11] MEDS: TAMSULOSIN 0.4MG CAPSULE 0.4 MG PO (20:07)
[2024-09-12] VITALS: BP 153/79; PULSE 60; PULSE 70; RESP 18; TEMP 36.7; O2SAT 93
[2024-09-12 03:43] VITALS: BP 163/85; PULSE 68; RESP 16; TEMP 36.8; O2SAT 93
[2024-09-12 03:44] VITALS: BMI 30.4
[2024-09-12 04:00] VITALS: PULSE 70
[2024-09-12] MEDS: FLUTICASONE/UMECLIDIN/VILANTER 100/62.5/25MCG INHALER 1 PUFF IH (06:24)
[2024-09-12 06:41] LABS: Hematocrit 34.4 % (42.0-52.0); Hemoglobin 10.9 g/dL (14.1-18.0); Immature Granulocytes % 0.3 %; Mean Corpuscular HGB Conc 31.7 g/dL (31.8-35.4); Mean Corpuscular Hemoglobin 27.9 pg (27.0-31.2); Mean Corpuscular Volume 88.0 fl (80-94); Nucleated Red Blood Cells % 0 %; Platelet Count 260 K/mm3 (142-424); Red Blood Count 3.91 M/mm3 (4.60-6.20); Red Cell Distribution Width-SD 46.5 fL; White Blood Count 7.1 K/mm3 (4.8-10.8)
[2024-09-12 07:02] LABS: Alanine Aminotransferase 16 U/L (12-78); Albumin Level 4.2 g/dl (3.5-5.0); Albumin/Globulin Ratio 1.1 (1.1-1.8); Alkaline Phosphatase 76 U/L (38-126); Anion Gap 13.9 mEq/L (5-15); Aspartate Amino Transferase 31 U/L (17-59); Bilirubin,Total 0.5 mg/dl (0.2-1.3); Blood Urea Nitrogen 32 mg/dl (9-20); Calcium 8.6 mg/dl (8.4-10.2); Carbon Dioxide 27 mmol/L (22.0-30.0); Chloride 101 mmol/L (98-107); Creatinine Clearance Estimated 46 mL/min (50-200); Creatinine,Serum 2.20 mg/dl (0.66-1.25); Estimated Glomerular Filt Rate 29 ml/min (>60); GFR (African American) 35 ML/MIN (>60); Globulin 3.7 g/dL (1.3-3.2); Glucose 99 mg/dl (74-100); Potassium 3.9 mmoL/L (3.5-5.1); Sodium 138 mmol/L (136-145); Total Protein,Serum 7.9 g/dl (6.3-8.2)
--- NOTE | 2024-09-12 07:39 | EXP.DC.SUM ---
General Admission date:: 09/09/24 Discharge date: 09/12/24 HPI HPI HPI: 74-year-old presents emergency department due to atypical chest pain. Poor historian, blind, hard of hearing. History largely obtained through chart review Comes from a local halfway due to intermittent left-sided chest pain that started approximately 2 weeks ago. Says it has been constant, but worsened slightly today. Radiates to the left arm. Endorsing shortness of breath but this is chronic and has not worsened. In the emergency department troponins negative. BNP elevated. EKG without ST deviations. Chest x-ray with left upper lobar density (chronic left upper lobar mass). Noted to be hypervolemic on physical exam given Lasix. Cardiovascular history includes normal systolic and diastolic function. LVEF 55. Right ventricle normal. No significant valvular heart disease. CT chest significant calcific plaque in proximal and mid RCA, left main and proximal LAD. Left heart cath 12/25/2018: Widely patent LAD stent. Nonocclusive disease in the RCA, circumflex. Other history includes CKD, lung cancer (adenocarcinoma of the colon, lung cancer left upper lobe followed by Dr. Cano. Hospital Course Hospital Course Hospital Course: 74-year-old male multiple cardiovascular risk factors including prior obstructive CAD with PCI to LAD presenting with chest pain 2 weeks duration. Responding well to diuresis. Chest pain persisted, was taken for stress test which showed area of reversible ischemia. Cardiology evaluated and recommended left heart cath. Heart cath performed on 09/11. Received 3 stents to his proximal and mid LAD. Some improvement in chest pain but still has reproducible pain on exam consistent with pain likely associated with his cancer and radiation treatments. Stable on baseline oxygen of 2 L. Will discharge back to [facility] for further management at his intermediate care facility. Problems addressed as follows: Acute chest pain Coronary artery disease status post PCI LAD HFpEF, acute on chronic Paroxysmal A-fib - Echo obtained with EF 50 to [address] of chest showed left apical mass is smaller with some adjacent bronchovascular lymphangitic infiltration. Regular pleural thickening concerning for posttreatment changes and some radiation pneumonitis. May account for some of his pain. Cardiology evaluated, was taken for stress test that was found to be abnormal. Left heart cath performed on 09/11 with severe proximal and mid LAD disease. 3 stents placed. Improved flow. Continue aspirin 81 mg daily, Plavix 75 mg daily, Lipitor 40 mg daily, Lasix 20 mg daily, metoprolol succinate 100 mg daily, Eliquis 2.5 mg twice daily and Jardiance 10 mg daily. Had good response to diuresis during admission. Negative over 4 L since admission. Polycystic kidney disease CKD BPH - Creatinine stable during admission. BUN 32, creatinine 2.2. This appears to be his baseline. Recommend labs in 1 week including CMP and CBC to monitor for any injury after contrast from heart cath. Continue chronic Jason catheter Lung cancer Colon cancer - White count remains normal. Sees Dr. Cano for management. Recommend follow-up after discharge. Continue Tylenol, home gabapentin, home hydrocodone for pain control. Total time spent on discharge 32 minutes in counseling, documentation, chart review, and direct care with patient. Exam Data for Last 24 hours Vital signs and Labs for Last 24 Hours: Temp Pulse Resp BP Pulse Ox O2 Del Method O2 Flow Rate 98.3 F 70 16 163/85 H 93 L Nasal Cannula 2 09/12/24 03:43 09/12/24 04:00 09/12/24 03:43 09/12/24 03:43 09/12/24 03:43 09/12/24 06:40 09/12/24 06:40 Laboratory Results - last 24 hr 09/11/24 11:54: Activated Clotting Time 313 H* 09/12/24 06:32: WBC 7.1, RBC 3.91 L, Hgb 10.9 L, Hct 34.4 L, MCV 88.0, MCH 27.9, MCHC 31.7 L, RDW 14.6, Plt Count 260, MPV 9.6, Neut % (Auto) 78.1, Lymph % (Auto) 9.7 L, [place] % (Auto) 9.0, Eos % (Auto) 2.3, Baso % (Auto) 0.6, Neut # (Auto) 5.6, Lymph # (Auto) 0.7, [place] # (Auto) 0.6, Eos # (Auto) 0.2, Baso # (Auto) 0.0, Sodium 138, Potassium 3.9, Chloride 101, Carbon Dioxide 27, Anion Gap 13.9, BUN 32 H, Creatinine 2.20 H, Estimated Creat Clear 46, Estimated GFR 29 L, Est GFR ( Amer) 35 L, Glucose 99, Calcium 8.6, Total Bilirubin 0.5, AST 31, ALT 16, Alkaline Phosphatase 76, Total Protein 7.9, Albumin 4.2, Globulin 3.7 H, Albumin/Globulin Ratio 1.1 I & O for Last 24 hours: Intake & Output 09/09/24 09/10/24 09/11/24 09/12/24 23:59 23:59 23:59 23:59 Intake Total 1220 / 1370 630 / 870 240 / 240 Output Total 4050 / 4050 2950 / 3650 1100 / 1100 Balance -2830 / -2680 -2320 / -2780 -860 / -860 Weight 121.563 kg 119.748 kg 113.398 kg 113.398 kg Constitutional Constitutional: no acute distress, obese, chronically ill appearing and cooperative *Routine HEENT Exam Head: Present normocephalic ENT: Present mucous membranes moist Comments: blind, sclerosis of corneas *Routine Neck Exam Neck: Present supple; Absent lymphadenopathy Routine Chest/Breast/Axilla Exam Chest wall: Present tenderness (left upper chest) *Routine Respiratory Exam Respiratory: Present CTA bilaterally and crackles (left upper lung field); Absent rhonchi or wheezes *Routine Cardiovascular Exam Cardiovascular: Present RRR *Routine Abdominal Exam Abdominal: Present soft and normoactive bowel sounds; Absent tenderness *Routine Rectal Exam Patient deferred: visual exam *Routine Exam Patient deferred: 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) *Routine Extremities Exam Extremities: Present edema (trace BLE); Absent cyanosis or clubbing Comments: Left upper arm tender to palpation *Routine Skin Exam Skin: Present warm; Absent rash Comments: Chronic stasis changes bilateral lower extremities *Routine Neurological Exam Neurological: Present alert, oriented X3 and moving all extremities; Absent altered mental status Results Data Completed and Pending Labs on day of discharge: Labs from last 24 hours 09/12/24 09/11/24 06:32 11:54 WBC 7.1 RBC 3.91 L Hgb 10.9 L Hct 34.4 L MCV 88.0 MCH 27.9 MCHC 31.7 L RDW 14.6 Plt Count 260 MPV 9.6 Neut % (Auto) 78.1 Lymph % (Auto) 9.7 L [place] % (Auto) 9.0 Eos % (Auto) 2.3 Baso % (Auto) 0.6 Neut # (Auto) 5.6 Lymph # (Auto) 0.7 [place] # (Auto) 0.6 Eos # (Auto) 0.2 Baso # (Auto) 0.0 Activated Clotting Time 313 H* Sodium 138 Potassium 3.9 Chloride 101 Carbon Dioxide 27 Anion Gap 13.9 BUN 32 H Creatinine 2.20 H Estimated Creat Clear 46 Estimated GFR 29 L Est GFR ( Amer) 35 L Glucose 99 Calcium 8.6 Total Bilirubin 0.5 AST 31 ALT 16 Alkaline Phosphatase 76 Total Protein 7.9 Albumin 4.2 Globulin 3.7 H Albumin/Globulin Ratio 1.1 DS: Diagnosis Discharge Diagnosis (1) Chest pain: Status: Acute Code(s): R07.9 - Chest pain, unspecified (2) CHF exacerbation: Status: Acute Code(s): I50.9 - Heart failure, unspecified (3) PAF (paroxysmal atrial fibrillation): Status: Acute Code(s): I48.0 - Paroxysmal atrial fibrillation (4) Lung cancer: Status: Acute Code(s): C34.90 - Malignant neoplasm of unspecified part of unspecified bronchus or lung (5) CKD (chronic kidney disease) stage 4, GFR 15-29 ml/min: Status: Acute Code(s): N18.4 - Chronic kidney disease, stage 4 (severe) (6) Obesity (BMI 30.0-34.9): Status: Chronic Code(s): E66.811 - Obesity, class 1 (7) COPD mixed type: Status: Acute Code(s): J44.9 - Chronic obstructive pulmonary disease, unspecified (8) Chronic hypoxic respiratory failure, on home oxygen therapy: Status: Acute Code(s): J96.11 - Chronic respiratory failure with hypoxia; Z99.81 - Dependence on supplemental oxygen (9) Polycystic kidney disease: Status: Acute Code(s): Q61.3 - Polycystic kidney, unspecified (10) Blind: Status: Acute Code(s): H54.7 - Unspecified visual loss Qualifiers: Left eye visual impairment category: left - unspecified blindness Right eye visual impairment category: right - unspecified blindness Qualified Code(s): H54.3 - Unqualified visual loss, both eyes Meds Home Medications and Allergies Home Medications ?Medication ?Instructions ?Recorded ?Confirmed ?Type aspirin 81 mg chewable tablet 81 mg PO DAILY 06/09/23 09/09/24 History cetirizine 10 mg tablet 10 mg PO DAILY 06/09/23 09/09/24 History ferrous sulfate 325 mg (65 mg 325 mg PO DAILY 06/09/23 09/09/24 History iron) tablet isosorbide mononitrate 30 mg 30 mg PO DAILY 06/09/23 09/09/24 History tablet,extended release 24 hr oxcarbazepine 300 mg tablet 300 mg PO BID 06/09/23 09/09/24 History acetaminophen 500 mg capsule 500 mg PO Q4HP PRN Mild Pain 06/10/23 09/09/24 History (Scale Score 1-4) multivitamin 1 tab PO DAILY 06/10/23 09/09/24 History timolol maleate 0.5 % eye drops 1 drp ophthalmic (eye) DAILY 06/10/23 09/09/24 History escitalopram oxalate 5 mg tablet 5 mg PO DAILY 12/06/23 09/09/24 History (Lexapro) guaifenesin 100 mg/5 mL oral liquid 200 mg PO Q6HP PRN Cough 12/22/23 09/10/24 History lidocaine 4 % topical patch 1 patch topical DAILY 12/22/23 09/09/24 History (Lidocaine Pain Relief) ondansetron HCl 4 mg tablet 4 mg PO Q4HP PRN Nausea 12/22/23 09/10/24 History fluticasone fur. 100 mcg-umeclid 1 inh inhalation DAILY #60 ea 01/03/24 09/09/24 Rx 62.5 mcg-vilant 25 mcg inhalat.powder (Trelegy Ellipta) albuterol sulfate 90 mcg/actuation 1 puff inhalation Q4HP PRN 02/14/24 09/10/24 History aerosol inhaler (Ventolin HFA) Shortness Of Breath loperamide 2 mg capsule 2 mg PO Q6HP PRN Diarrhea 02/14/24 09/10/24 History white petrolatum-mineral oil 94 1 applic ophthalmic (eye) HS 02/14/24 09/09/24 History %-3 % eye ointment (Systane Nighttime) finasteride 5 mg tablet 5 mg PO DAILY #90 tabs 03/05/24 09/09/24 Rx tamsulosin 0.4 mg capsule 0.4 mg PO HS 90 days #90 caps 03/05/24 09/09/24 Rx aluminum hydrox-magnesium carb 95 30 ml PO Q6HP PRN Acid Reflux 04/24/24 09/09/24 History mg-358 mg/15 mL oral suspension (Acid Gone Antacid) apixaban 2.5 mg tablet (Eliquis) 2.5 mg PO BID #60 tabs 05/24/24 09/09/24 Rx gabapentin 100 mg capsule 100 mg PO BID #60 caps 06/08/24 09/09/24 Rx fluticasone propionate 50 2 spray intranasal DAILY 06/26/24 09/09/24 History mcg/actuation nasal spray,suspension (Flonase Allergy Relief) metoprolol succinate 100 mg 100 mg PO DAILY 06/26/24 09/09/24 History tablet,extended release 24 hr hydrocodone 5 mg-acetaminophen 325 1 tab PO TID #90 tabs 08/28/24 09/09/24 Rx mg tablet ipratropium 0.5 mg-albuterol 3 mg 3 ml inhalation QIDP PRN Shortness 09/04/24 09/10/24 History (2.5 mg base)/3 mL nebulization Of Breath Or Wheezing soln sennosides 8.6 mg tablet (Senna 17.2 mg PO HS 09/04/24 09/09/24 History Laxative) atorvastatin 40 mg tablet 40 mg PO HS 30 days #30 tabs 09/12/24 Rx clopidogrel 75 mg tablet 75 mg PO DAILY 30 days #30 tabs 09/12/24 Rx furosemide 20 mg tablet 20 mg PO DAILY 30 days #30 tabs 09/12/24 Rx pantoprazole 40 mg tablet,delayed 40 mg PO HS 30 days #30 tabs 09/12/24 Rx release New Prescriptions to Start Prescriptions: ramona Ramirez,Edi clopidogrel James,Edi furosemide James,Edi pantoprazole Edi Ramirez Allergies Allergy/AdvReac Type Severity Reaction Status Date / Time No Known Allergies Allergy Verified 09/04/24 15:17 Discharge Plan Disposition Patient Disposition: er Intermediate Care Fac Condition: Fair Discharge Order Discharge Orders: Discharge Order (Routine); Ordered 09/12/24 Ordered By: Edi Ramirez Follow up Plan Follow up with: Slava Dodge MD [Staff Physician, Cardiology] - 09/18/24 1:15 pm Shaquille Alford MD [Staff Physician, Oncology] - Enter time for follow up Prescriptions/Medication Reconciliation: New atorvastatin 40 mg Tablet 40 mg PO HS 30 Days Qty: 30 0RF clopidogrel 75 mg Tablet 75 mg PO DAILY 30 Days Qty: 30 0RF pantoprazole 40 mg Tablet,Delayed Release (Dr/Ec) 40 mg PO HS 30 Days Qty: 30 0RF furosemide 20 mg Tablet 20 mg PO DAILY 30 Days Qty: 30 0RF Continued Eliquis 2.5 mg tablet 2.5 mg PO BID Qty: 60 2RF Trelegy Ellipta 100-62.5-25 mcg blister with device 1 inh inhalation DAILY Qty: 60 2RF loperamide 2 mg capsule 2 mg PO Q6HP PRN (Reason: Diarrhea) Systane Nighttime 94-3 % ointment 1 applic ophthalmic (eye) HS finasteride 5 mg tablet 5 mg PO DAILY Qty: 90 3RF tamsulosin 0.4 mg capsule 0.4 mg PO HS 90 Days Qty: 90 1RF metoprolol succinate 100 mg tablet extended release 24 hr 100 mg PO DAILY fluticasone propionate [Flonase Allergy Relief] 50 mcg/actuation spray,suspension 2 spray intranasal DAILY Rx Instructions: administer into each nostril escitalopram oxalate [Lexapro] 5 mg tablet 5 mg PO DAILY sennosides [Senna Laxative] 8.6 mg tablet 17.2 mg PO HS ipratropium-albuterol 0.5 mg-3 mg(2.5 mg base)/3 mL solution for nebulization 3 ml inhalation QIDP PRN (Reason: Shortness Of Breath Or Wheezing) lidocaine [Lidocaine Pain Relief] 4 % adhesive patch,medicated 1 patch TOPICAL DAILY ondansetron HCl 4 mg Tablet 4 mg PO Q4HP PRN (Reason: Nausea) guaifenesin 100 mg/5 mL Liquid 200 mg PO Q6HP PRN (Reason: Cough) albuterol sulfate [Ventolin HFA] 90 mcg/actuation HFA aerosol inhaler 1 puff INHALATION Q4HP PRN (Reason: Shortness Of Breath) Acid Gone Antacid 95-358 mg/15 mL suspension 30 ml PO Q6HP PRN (Reason: Acid Reflux) gabapentin 100 mg capsule 100 mg PO BID Qty: 60 5RF hydrocodone-acetaminophen 5-325 mg tablet 1 tab PO TID Qty: 90 0RF cetirizine 10 mg tablet 10 mg PO DAILY isosorbide mononitrate 30 mg tablet extended release 24 hr 30 mg PO DAILY oxcarbazepine 300 mg tablet 300 mg PO BID ferrous sulfate 325 mg (65 mg iron) tablet 325 mg PO DAILY aspirin 81 mg tablet,chewable 81 mg PO DAILY multivitamin Tablet 1 tab PO DAILY timolol maleate 0.5 % drops 1 drp ophthalmic (eye) DAILY acetaminophen 500 mg Capsule 500 mg PO Q4HP PRN (Reason: Mild Pain (Scale Score 1-4)) Discontinued hydrochlorothiazide 25 mg tablet 25 mg PO DAILY Lokelma 10 gram powder in packet 10 g PO DAILY atorvastatin 10 mg tablet 10 mg PO HS omeprazole 20 mg capsule,delayed release(DR/EC) 20 mg PO DAILY Problem Reconciliation Problems Reviewed?: Yes Patient Discharge Instructions ACTIVITY: Continue current activity DIET: continue same diet Patient Instructions: DI for Heart Failure, DI for Cardiac Catheterization, DI for Surgical Site Infection, DI for Chest Pain, Exercise-based Cardiac Rehabilitation May Decrease Risk of and Future Heart Procedures, Stop Light Heart Failure Print Language: [place]ian Providers Primary Care Provider: Provider,Referral Admit Provider: Edi Ramirez Attending Provider: Edi Ramirez
[2024-09-12 08:00] VITALS: BP 180/75; PULSE 60; PULSE 70; RESP 17; TEMP 36.7; O2SAT 96
[2024-09-12] MEDS: EMPAGLIFLOZIN 10MG TABLET 10 MG PO (08:05)
[2024-09-12] MEDS: ESCITALOPRAM 10MG TABLET 5 MG PO (08:05)
[2024-09-12] MEDS: FINASTERIDE 5MG TABLET 5 MG PO (08:05)
[2024-09-12] MEDS: HEPARIN SODIUM 5,000 UNIT/ML VIAL 5000 UNIT SUBCUT (08:06)
[2024-09-12] MEDS: METOPROLOL SUCCINATE XL 100MG TABLET 100 MG PO (08:06)
[2024-09-12] MEDS: ISOSORBIDE MONO 30MG TAB.ER.24H 30 MG PO (08:06)
[2024-09-12] MEDS: FUROSEMIDE 20MG TABLET 20 MG PO (08:06)
[2024-09-12] MEDS: TIMOLOL 0.5% OPTH SOLN 5ML OP (08:07)
[2024-09-12] MEDS: ASPIRIN EC 81MG TABLET 81 MG PO (08:09)
[2024-09-12] MEDS: CLOPIDOGREL 75MG TAB 75 MG PO (08:09)
[2024-09-12] MEDS: GABAPENTIN 100MG CAPSULE 100 MG PO (08:15)
--- NOTE | 2024-09-12 09:37 | P.PN_ITS ---
Subjective Subjective Date: 09/12/24 Time: 08:00 Principal diagnosis: chest pain, abnormal stress Interval history: Status post left heart cath yesterday with stenting. Morning labs reviewed. Exam Data for Last 24 hours Vital signs and Labs for Last 24 Hours: Temp Pulse Resp BP Pulse Ox O2 Del Method O2 Flow Rate 98.1 F 70 17 180/75 H 96 Nasal Cannula 2.5 09/12/24 08:00 09/12/24 08:00 09/12/24 08:00 09/12/24 08:00 09/12/24 08:00 09/12/24 09:19 09/12/24 09:19 Laboratory Results - last 24 hr 09/11/24 11:54: Activated Clotting Time 313 H* 09/12/24 06:32: WBC 7.1, RBC 3.91 L, Hgb 10.9 L, Hct 34.4 L, MCV 88.0, MCH 27.9, MCHC 31.7 L, RDW 14.6, Plt Count 260, MPV 9.6, Neut % (Auto) 78.1, Lymph % (Auto) 9.7 L, [place] % (Auto) 9.0, Eos % (Auto) 2.3, Baso % (Auto) 0.6, Neut # (Auto) 5.6, Lymph # (Auto) 0.7, [place] # (Auto) 0.6, Eos # (Auto) 0.2, Baso # (Auto) 0.0, Sodium 138, Potassium 3.9, Chloride 101, Carbon Dioxide 27, Anion Gap 13.9, BUN 32 H, Creatinine 2.20 H, Estimated Creat Clear 46, Estimated GFR 29 L, Est GFR ( Amer) 35 L, Glucose 99, Calcium 8.6, Total Bilirubin 0.5, AST 31, ALT 16, Alkaline Phosphatase 76, Total Protein 7.9, Albumin 4.2, Globulin 3.7 H, Albumin/Globulin Ratio 1.1 I & O for Last 24 hours: Intake & Output 09/09/24 09/10/24 09/11/24 09/12/24 23:59 23:59 23:59 23:59 Intake Total 1220 / 1370 630 / 870 640 / 640 Output Total 4050 / 4050 2950 / 3650 1100 / 1100 Balance -2830 / -2680 -2320 / -2780 -460 / -460 Weight 268 lb 264 lb 250 lb 249 lb 15.997 oz Constitutional Constitutional: no acute distress *Routine Respiratory Exam Respiratory: Present CTA bilaterally and symmetric chest movement *Routine Cardiovascular Exam Cardiovascular: Present RRR, Normal S1 and Normal S2 *Routine Abdominal Exam Abdominal: Present soft and normoactive bowel sounds; Absent tenderness *Routine Extremities Exam Extremities: Present full ROM and normal capillary refill; Absent edema *Routine Skin Exam Skin: Present intact, dry and warm Detailed Neck Exam: Thyroids Thyroid: Absent bruit Progress Note: A&P Assessment and plan (1) Chest pain: Status: Acute (2) CHF exacerbation: Status: Acute (3) PAF (paroxysmal atrial fibrillation): Status: Acute (4) Lung cancer: Status: Acute (5) CKD (chronic kidney disease) stage 4, GFR 15-29 ml/min: Status: Acute (6) Obesity (BMI 30.0-34.9): Status: Chronic (7) COPD mixed type: Status: Acute (8) Chronic hypoxic respiratory failure, on home oxygen therapy: Status: Acute (9) Polycystic kidney disease: Status: Acute (10) Blind: Status: Acute Assessment and Plan Assessment and Plan for All Diagnoses:: History of coronary artery disease Chest wall pain/left arm pain History of left lobe adenocarcinoma [facility] 09/11- continuous drug-eluting stents to mid LAD. Persistent moderate disease in RCA noted. Increased LVEDP Continue aspirin 81 mg p.o. daily, Plavix 75 mg p.o. daily and atorvastatin 40 mg p.o. daily Acute on chronic HFpEF Per notes patient was volume overloaded on admission. Initial BNP 1790 Was given Lasix 80 mg IV x 1 Has diuresed well-denies shortness of breath and is maintaining oxygen saturation of 98% on 2 Liters (home O2 requirements) Continue Lasix 20 mg p.o. daily Continue Jardiance 10 mg p.o. daily History of paroxysmal atrial fibrillation- Chadsvasc score > 2 Toprol 100 mg p.o. daily and Eliquis 2.5 mg p.o. twice daily Hypertension Continue Toprol 100 mg p.o. daily Continue Lasix 20 mg p.o. daily Chronic kidney disease Baseline creatinine 2?2.2 Creatinine today 2.2 Will continue Lasix 20 mg p.o. daily 09/12/2024 Summary: CV stable for discharge home. Please continue below listed medications and have patient follow-up in cardiology clinic in 1 week for reevaluation. Cardiac meds: Aspirin 81 mg p.o. daily Plavix 75 mg p.o. daily Atorvastatin 40 mg p.o. daily Lasix 20 mg p.o. daily Toprol 100 mg p.o. daily Eliquis 2.5 mg p.o. twice daily Jardiance 10 mg p.o. daily
[2024-09-12 12:00] VITALS: BP 123/67; PULSE 67; RESP 22; TEMP 36.7; O2SAT 96
[2024-09-12 12:49] VITALS: PULSE 70
== END 2024-09-12 14:21 | disposition short-term general hospital (02) | DRG 321 ==
LOC: ER 22:55 → 2ND 09-10 00:44
PROVIDERS: Internal Medicine; Student in an Organized Health Care Education/Training Program; Admitting Provider Internal Medicine Adolescent Medicine; Emergency Provider Emergency Medicine; Visit Provider Internal Medicine Adolescent Medicine
PROC: 4A023N7 Measurement of Cardiac Sampling and Pressure, Left Heart, Percutaneous Approach (ICD-10-PCS; CPT 93452; principal; 2024-09-11 09:30)
DX: I25.110 Atherosclerotic heart disease of native coronary artery with unstable angina pectoris (principal); I50.33 Acute on chronic diastolic (congestive) heart failure; N18.4 Chronic kidney disease, stage 4 (severe); J96.11 Chronic respiratory failure with hypoxia; Q61.3 Polycystic kidney, unspecified; C34.12 Malignant neoplasm of upper lobe, left bronchus or lung; I13.0 Hypertensive heart and chronic kidney disease with heart failure and stage 1 through stage 4 chronic kidney disease, or unspecified chronic kidney disease; I48.0 Paroxysmal atrial fibrillation; J44.9 Chronic obstructive pulmonary disease, unspecified; H54.3 Unqualified visual loss, both eyes; D63.1 Anemia in chronic kidney disease; N40.0 Benign prostatic hyperplasia without lower urinary tract symptoms; E66.811 Obesity, class 1; Z99.81 Dependence on supplemental oxygen; Z79.82 Long term (current) use of aspirin; Z79.899 Other long term (current) drug therapy; Z79.01 Long term (current) use of anticoagulants; Z79.83 Long term (current) use of bisphosphonates; Z68.30 Body mass index [BMI] 30.0-30.9, adult; Z85.038 Personal history of other malignant neoplasm of large intestine; Z87.891 Personal history of nicotine dependence
CPT/HCPCS: 36415; 71045; 71275; 78452; 80053; 80061; 82803; 82962; 83735; 83880; 84100; 84484; 85007; 85025; 85347; 85730; 93005; 93017; 93018; 93308; 94640; 99152; 99153; A9502; C1725; C1769; C1874; J1200; J1644; J1938; J2003; J2250; J3010; J7040; J7120; Q9967

== ENCOUNTER 2024-09-13 10:56 | Emergency (ER) | payer MEDICARE, MEDICAID, SELFPAY ==
--- OUTSIDE RECORDS SUMMARY | 2006-01-18 07:04 | XMS_ITS | Continuity of Care Document ---
Author Organization [facility] o Address [address] [place] [address] Phone Care Team Providers Care Bench Assembler Battery Name Role Phone Bruno Roegl MD Unavailable Unavailable Procedures Procedure Date Emg 1 Ext Nrv conductn motor, ea nrv w/o Fwav Nerve conductn motor ea nrv sensory Advance Directives Directive Yes / No Effective Date File Name No Information Encounters Encounter Description Practice Location Reason(s) For Visit Diagnoses Date Provider Providers Copied on Encounter [facility] [place], [address] [place] [address], [address], [place] tel:[phone] [facility] No Information 7200 6 Juan F Carr. [address] [place], [place], [id number] , [place]. tel:[phone] Family History Family Member Type Diagnosis Age At Onset No Information Payers Payer name Insurance type Covered alliance party ID Authoriza tion(s) Medicare [employer] MB [id number] Social History Type Description Quantity Date Captured [...]
--- OUTSIDE RECORDS SUMMARY | 2024-08-27 13:00 | XMS_ITS | Encounter Summary ---
Author Organization [facility] Address [address] [place] [address] Care Team Providers Care Web Designer Developer Name Role Phone Edi Chase MD Primary Care Provider [phone] Sam Sanchez MD Unavailable [phone] Cayetano Cannon MD Unavailable [phone] Reason for Referral * Other Medical (Routine) - Pending Review Specialty Diagnoses / Procedures Referred By José campbell Referred To Contact Neurology Diagnoses Dizziness on standing Procedures EEG Jyoti Tyler MD [address] [facility] [address] [place] [address] Phone: tel: fax: Referral ID Status Reason Start Date Expiration Date Visits Requested Visits Authorized [id number] Pending Review Specialty Services Required 08/27/2024 02/26/2026 1 1 Reason for Visit * Consultation (Routine) - Closed Specialty Diagnoses / Procedures Referred By José campbell Referred To Contact Neurology Diagnoses Syncope and collapse Malignant neoplasm of unspecified part of unspecified bronchus or lung (CMS/HCC) Miriam Baugh, DESIGN TECH [address] [place] [address] Phone: tel: fax: Referral ID Status Reason Start Date Expiration Date V isits Requested Visits Authorized [id number] Closed Specialty Services Required 01/24/2024 07/25/2025 1 1 Encounter Details Date Type Department Care Team ([facility] st Contact Info) Description 08/27/2024 1:00 PM EDT Consult [place] [facility] [address], [address] [place] [address] Cuong Catherine MD [address] [place] [address] Dizziness on standing (Primary Dx); Nonintractable episodic [...] How often do you attend [facility] or yazidism services? 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 HPI Referral placed by Miriam Baugh APRN for evaluation of syncope and collapse. Pt lives in a care home and presents today with care nurse. [...] Reflexes: 2+ throughout Coordination: no ataxia with xdpxfx-hb-tdua testing Proprioception: intact in upper extremities bilaterally [...] orthostatic hypotension. He should follow with his bean viner to obtain orthostatic vital signs and consider [...] 3 months Counseling Documentation: The patient and manager talent management was counseled regarding impressions. Education provided was verbal counseling. Additional time was spent in care coordination including medical record review. The total time of encounter was 100 minutes. . Cuong Catherine MD, PGY-2, Neurology Secure Chat/Pager: [phone] 08/27/2024 5:26 PM Dictation software disclaimer: Parts [...] After use, clean tip and replace cap. Ukgcxnlxixx-Fopuhokvm-Lttkou (Trelegy Ellipta) 100-62.5-25 MCG/ACT aerosol powder Inhale 1 puff 1 (one) time each day. gabapentin (Neurontin) 100 MG capsule Take 1 capsule by mouth 2 times a day. hydroCHLOROthiazide (HYDRODiuril) 25 MG tablet Take 1 tablet by mouth daily. HYDROcodone-acetaminophen ([place]) 5-325 MG tablet Take 1 tablet (5 [...] We discussed patient seeing eitherhis PCP or bean viner to test orthostatic vitals and adjust medications [...] AM EDT Appointment [facility] H Neurophysiology [address] [facility] [address] [place] [address] 10/26/2024 1:20 PM EDT Office Visit [facility] [address] [place] [address] Florentin Tillman MD [address] [place] [address] Scheduled Orders Name Type Priority Associated Diagnoses [...] documented as of this encounter Care Teams Web Designer Developer Relationship Specialty Start Date End Date Edi Chase MD [address] [place] [address] PCP - General 03/14/20 Sam Sanchez MD [address] [place] [address] Consulting Physician Pulmonary Disease 08/11/22 Cayetano Cannon MD [address] [place] [address] Referring Physician 08/11/22 documented as of this encounter
[2024-09-13] VITALS (9 sets, daily range): BP systolic 116–157; BP diastolic 63–91; PULSE 55–66; RESP 14–20; TEMP 36.6–37.1; O2SAT 95–100; BMI 30.4
--- NOTE | 2024-09-13 11:15 | CT_ITS ---
FINAL REPORT TECHNIQUE: The patient was injected with IV contrast. Axial images were obtained through the chest in a PE protocol. 3-D reconstruction images were also performed. Individualized dose reduction techniques using automated exposure control or adjustment of the MA and/or KV according to patient's size were employed. CLINICAL HISTORY: Syncope, chest pain COMPARISON: 09/10/2024 FINDINGS: Mediastinal vasculature is adequately opacified. No pulmonary artery filling defects are identified to suggest PE. There is no aortic dissection. There is dense coronary artery calcification. There is no axillary adenopathy. There is no hilar or mediastinal adenopathy. The heart size is normal. There is no pericardial or pleural effusion. There is a mass in the left upper lobe measuring 3.5 x 3.0 cm well-seen on image 50 of series 5. Patchy airspace opacity in the left upper lobe has increased over prior. There is surrounding interstitial opacity. The lower lobes are unremarkable. There are a multitude of cysts identified within the partially visualized kidneys. Individual cysts measure up to 4.2 cm. There may be some small cysts in the liver. IMPRESSION: No pulmonary embolus or dissection. Left upper lobe mass, similar to previous but there is increased surrounding airspace opacity which may be due to pneumonia or posttreatment change. Careful clinical correlation is recommended. Multitude of bilateral renal cysts, possibly due to polycystic kidney disease. Reviewed, Interpreted and Dictated by Primitivo Rodriguez MD Transcribed by aNti Funez Authenticated and . [facility]
--- NOTE | 2024-09-13 11:17 | HMH.EDGENADL ---
Discharge Plan Disposition Patient Disposition: Home, Self-Care Prescriptions Prescriptions: New azithromycin 250 mg tablet 250 mg PO DAILY 5 Days Qty: 5 0RF No Action Eliquis 2.5 mg tablet 2.5 mg PO BID Qty: 60 2RF Trelegy Ellipta 100-62.5-25 mcg blister with device 1 inh inhalation DAILY Qty: 60 2RF loperamide 2 mg capsule 2 mg PO Q6HP PRN (Reason: Diarrhea) Systane Nighttime 94-3 % ointment 1 applic ophthalmic (eye) HS finasteride 5 mg tablet 5 mg PO DAILY Qty: 90 3RF tamsulosin 0.4 mg capsule 0.4 mg PO HS 90 Days Qty: 90 1RF metoprolol succinate 100 mg tablet extended release 24 hr 100 mg PO DAILY fluticasone propionate [Flonase Allergy Relief] 50 mcg/actuation spray,suspension 2 spray intranasal DAILY Rx Instructions: administer into each nostril escitalopram oxalate [Lexapro] 5 mg tablet 5 mg PO DAILY sennosides [Senna Laxative] 8.6 mg tablet 17.2 mg PO HS ipratropium-albuterol 0.5 mg-3 mg(2.5 mg base)/3 mL solution for nebulization 3 ml inhalation QIDP PRN (Reason: Shortness Of Breath Or Wheezing) lidocaine [Lidocaine Pain Relief] 4 % adhesive patch,medicated 1 patch TOPICAL DAILY ondansetron HCl 4 mg Tablet 4 mg PO Q4HP PRN (Reason: Nausea) guaifenesin 100 mg/5 mL Liquid 200 mg PO Q6HP PRN (Reason: Cough) albuterol sulfate [Ventolin HFA] 90 mcg/actuation HFA aerosol inhaler 1 puff INHALATION Q4HP PRN (Reason: Shortness Of Breath) Acid Gone Antacid 95-358 mg/15 mL suspension 30 ml PO Q6HP PRN (Reason: Acid Reflux) gabapentin 100 mg capsule 100 mg PO BID Qty: 60 5RF hydrocodone-acetaminophen 5-325 mg tablet 1 tab PO TID Qty: 90 0RF cetirizine 10 mg tablet 10 mg PO DAILY isosorbide mononitrate 30 mg tablet extended release 24 hr 30 mg PO DAILY oxcarbazepine 300 mg tablet 300 mg PO BID ferrous sulfate 325 mg (65 mg iron) tablet 325 mg PO DAILY aspirin 81 mg tablet,chewable 81 mg PO DAILY multivitamin Tablet 1 tab PO DAILY timolol maleate 0.5 % drops 1 drp ophthalmic (eye) DAILY acetaminophen 500 mg Capsule 500 mg PO Q4HP PRN (Reason: Mild Pain (Scale Score 1-4)) atorvastatin 40 mg Tablet 40 mg PO HS 30 Days Qty: 30 0RF clopidogrel 75 mg Tablet 75 mg PO DAILY 30 Days Qty: 30 0RF pantoprazole 40 mg Tablet,Delayed Release (Dr/Ec) 40 mg PO HS 30 Days Qty: 30 0RF furosemide 20 mg Tablet 20 mg PO DAILY 30 Days Qty: 30 0RF Activity Restrictions/Add. Instructions Additional Instructions/Restrictions: You are being prescribed antibiotics to take through your IV as well as oral antibiotics for urinary tract affection and pneumonia. Take these as prescribed. If you develop any new or worsening symptoms, or if you become concerned for your health for any reason, return to the emergency department for evaluation Clinical Impressions Clinical Impression: Urinary tract infection, Pneumonia, Syncope, Elevated troponin Instructions Patient Instructions: DI for Altered Mental Status Print Language Print Language: [place] Discharge ED Provider: Armani Pond General Adult HPI General Chief complaint: Altered Mental Status Stated complaint: Syncopy Time Seen by Provider: 09/13/24 11:05 Mode of Arrival: EMS Source of Information: Patient and EMS Description of Symptoms (Recalled from ER Triage Doc. by RN): Patient presents to ED via EMS from [facility] with reports patient was found to be unresponsive while eating breakfast. States he was not wear Oxygen which he normally wears 3L at all times, reports patient perked up after being placed on O2. Patient is alert and oriented upon arrival, c/o left flank pain. Notes patient was just discharged from the floor yesterday after having a Cardiac Cath on09/09. Patient denies chest pain, denies SOA. History of Present Illness HPI narrative: Edi Toussaint is a 74-year-old male with a history of lung cancer s/p surgery, COPD on 3 L nasal cannula at baseline, recent cardiac cath, prostate cancer with indwelling Jason who presents to the emergency department from [facility] for concern for unresponsiveness. Reportedly, after breakfast, patient was found to be minimally responsive by staff. Patient states that he was sitting in his wheelchair when he passed out. He reports having some sharp left-sided chest pain at this time. He denies any worsening shortness of breath beyond his baseline. He denies any abdominal pain, nausea, vomiting, diarrhea or fever. He reports chronic cough. Patient notes that he is currently on a blood thinner. Related Data Home Medications ?Medication ?Instructions ?Recorded ?Confirmed aspirin 81 mg chewable tablet 81 mg PO DAILY 06/09/23 09/09/24 cetirizine 10 mg tablet 10 mg PO DAILY 06/09/23 09/09/24 ferrous sulfate 325 mg (65 mg 325 mg PO DAILY 06/09/23 09/09/24 iron) tablet isosorbide mononitrate 30 mg 30 mg PO DAILY 06/09/23 09/09/24 tablet,extended release 24 hr oxcarbazepine 300 mg tablet 300 mg PO BID 06/09/23 09/09/24 acetaminophen 500 mg capsule 500 mg PO Q4HP PRN Mild Pain 06/10/23 09/09/24 (Scale Score 1-4) multivitamin 1 tab PO DAILY 06/10/23 09/09/24 timolol maleate 0.5 % eye drops 1 drp ophthalmic (eye) DAILY 06/10/23 09/09/24 escitalopram oxalate 5 mg tablet 5 mg PO DAILY 12/06/23 09/09/24 (Lexapro) guaifenesin 100 mg/5 mL oral liquid 200 mg PO Q6HP PRN Cough 12/22/23 09/10/24 lidocaine 4 % topical patch 1 patch topical DAILY 12/22/23 09/09/24 (Lidocaine Pain Relief) ondansetron HCl 4 mg tablet 4 mg PO Q4HP PRN Nausea 12/22/23 09/10/24 albuterol sulfate 90 mcg/actuation 1 puff inhalation Q4HP PRN 02/14/24 09/10/24 aerosol inhaler (Ventolin HFA) Shortness Of Breath loperamide 2 mg capsule 2 mg PO Q6HP PRN Diarrhea 02/14/24 09/10/24 white petrolatum-mineral oil 94 1 applic ophthalmic (eye) HS 02/14/24 09/09/24 %-3 % eye ointment (Systane Nighttime) aluminum hydrox-magnesium carb 95 30 ml PO Q6HP PRN Acid Reflux 04/24/24 09/09/24 mg-358 mg/15 mL oral suspension (Acid Gone Antacid) fluticasone propionate 50 2 spray intranasal DAILY 06/26/24 09/09/24 mcg/actuation nasal spray,suspension (Flonase Allergy Relief) metoprolol succinate 100 mg 100 mg PO DAILY 06/26/24 09/09/24 tablet,extended release 24 hr ipratropium 0.5 mg-albuterol 3 mg 3 ml inhalation QIDP PRN Shortness 09/04/24 09/10/24 (2.5 mg base)/3 mL nebulization Of Breath Or Wheezing soln sennosides 8.6 mg tablet (Senna 17.2 mg PO HS 09/04/24 09/09/24 Laxative) Previous Rx's ?Medication ?Instructions ?Recorded fluticasone fur. 100 mcg-umeclid 1 inh inhalation DAILY #60 ea 01/03/24 62.5 mcg-vilant 25 mcg inhalat.powder (Trelegy Ellipta) finasteride 5 mg tablet 5 mg PO DAILY #90 tabs 03/05/24 tamsulosin 0.4 mg capsule 0.4 mg PO HS 90 days #90 caps 03/05/24 apixaban 2.5 mg tablet (Eliquis) 2.5 mg PO BID #60 tabs 05/24/24 gabapentin 100 mg capsule 100 mg PO BID #60 caps 06/08/24 hydrocodone 5 mg-acetaminophen 325 1 tab PO TID #90 tabs 08/28/24 mg tablet atorvastatin 40 mg tablet 40 mg PO HS 30 days #30 tabs 09/12/24 clopidogrel 75 mg tablet 75 mg PO DAILY 30 days #30 tabs 09/12/24 furosemide 20 mg tablet 20 mg PO DAILY 30 days #30 tabs 09/12/24 pantoprazole 40 mg tablet,delayed 40 mg PO HS 30 days #30 tabs 09/12/24 release azithromycin 250 mg tablet 250 mg PO DAILY 5 days #5 tabs 09/13/24 Allergies Allergy/AdvReac Type Severity Reaction Status Date / Time No Known Allergies Allergy Verified 09/04/24 15:17 [facility] Disclaimer: The information contained in this section may have been updated after the patient was seen, as this information can be updated by other users. Medical History Lung cancer COPD mixed type PAF (paroxysmal atrial fibrillation) Knee pain, right Hyperkalemia Polycystic kidney UTI (urinary tract infection) Acute renal injury Jason catheter in place Pain in left arm Chronic hypoxic respiratory failure, on home oxygen therapy Hx of prostatic malignancy Colon cancer Knee pain Heart failure with preserved ejection fraction Peripheral edema Acute exacerbation of chronic obstructive pulmonary disease Adenocarcinoma of lung Chronic obstructive pulmonary disease CKD (chronic kidney disease) Stopped smoking with greater than 30 pack year history CVA (cerebral vascular accident) Blind Congestive heart failure Renal stones Gastroesophageal reflux 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) CVA (cerebral vascular accident) Obesity (BMI 30.0-34.9) Elevated left ventricular end-diastolic pressure (LVEDP) Diastolic dysfunction Pulmonary HTN Surgical History Hx of total knee arthroplasty History of bowel resection History of bronchoscopy History of ureteroscopy History of colonoscopy History of colectomy Family History Family history of cancer Cancer Unknown Social History Smoking Status: Former smoker tobacco type: cigarettes packs per day: 1 alcohol intake: never substance use type: denies use current occupational status: disabled Travel in the last 8 weeks?: None caregiver/support person: Yes household members: none housing: fdc lives independently: No marital status: single current occupation: [employer] current occupational exposures/hazards: No caffeine: Yes special milad needs: No agree to transfusion: No do you feel safe at home: Yes victim of physical abuse: No victim of emotional abuse: No victim of sexual abuse: No would you like helpful sources: No Have you lived/traveled outside US in past 30 days?: No Contact w/someone who lives/traveled outside US past 30 days?: No Exposure to someone with infectious disease in past 14 days?: No Do you have a fever (greater than 100.4 F or 38 C)?: No Have you tested positive for COVID-19?: No Exposed to someone with COVID-19 in past 14 days?: No Do you have a sore throat?: No Do you have a cough?: No Do you have any weakness?: No Do you have any diarrhea?: No Are you experiencing any unusual bleeding?: No Do you have any muscle aches/pain?: No Do you have any abdominal pain?: No Are you experiencing loss of taste or smell?: No Other Medical History Have you received the Flu Vaccine for this season: No Have you received the Pneumonia Vaccine: No ROS Obtained: Yes Systems reviewed as appropriate & no additional complaints except as documented Physical Exam General General appearance: alert and in no apparent distress Comment: Chronically ill appearing Head Head exam: atraumatic Eye Eye exam: Present normal appearance ENT ENT exam: Present normal external ear exam Neck Neck exam: Present full ROM Chest Chest inspection: Present symmetric chest wall rise and tenderness (left anterior/lateral chest wall tenderness to palpation) Respiratory Respiratory exam: Present normal lung sounds bilaterally; Absent respiratory distress, wheezes or stridor Cardiovascular Cardiovascular exam: Present regular rate and normal rhythm Abdominal Exam Abdominal exam: Present soft; Absent tenderness or guarding exam: Present deferred Extremities Exam Extremities exam: Present normal inspection and edema (mild non-pitting edema) Back Exam Back exam: Present normal inspection Neurological Exam Neurological exam: Present alert and oriented X3 Psychiatric Psychiatric exam: Present normal affect Skin Skin exam: Present warm and dry Medical Decision Making Medical Records Screening: Per USPSTF and CDC recommendations, given the prevalence of disease in our region, it is our hospital?s policy to screen for HIV and viral Hepatitis for all patients aged 18 and over and those with ongoing risk factors. [place] [facility] Pt receiving controlled substance: No Vital Signs: 09/13/24 11:03 09/13/24 11:36 09/13/24 11:45 Temperature 97.8 F Temperature Source Oral Pulse Rate 58 L 57 L Pulse Rate [Left] 66 Respiratory Rate 20 17 14 Blood Pressure Blood Pressure [Right Arm] 116/69 Blood Pressure Mean Blood Pressure Mean [Right Arm] 84 Blood Pressure Source [Right Arm] Automatic Cuff Blood Pressure Position [Right Arm] Supine 02 Sat by Pulse Oximetry 95 98 97 Oxygen Delivery Method Nasal Cannula Nasal Cannula Nasal Cannula Oxygen Flow Rate (LPM) 4 4 4 09/13/24 12:00 09/13/24 12:30 09/13/24 13:01 Temperature Temperature Source Pulse Rate 55 L 57 L 58 L Pulse Rate [Left] Respiratory Rate 16 18 17 Blood Pressure 117/63 116/67 139/90 Blood Pressure [Right Arm] Blood Pressure Mean 77 103 Blood Pressure Mean [Right Arm] Blood Pressure Source [Right Arm] Blood Pressure Position [Right Arm] 02 Sat by Pulse Oximetry 98 100 97 Oxygen Delivery Method Nasal Cannula Nasal Cannula Oxygen Flow Rate (LPM) 4 4 09/13/24 13:30 09/13/24 14:07 Temperature Temperature Source Pulse Rate 56 L 58 L Pulse Rate [Left] Respiratory Rate 17 18 Blood Pressure 137/83 157/91 H Blood Pressure [Right Arm] Blood Pressure Mean 101 110 Blood Pressure Mean [Right Arm] Blood Pressure Source [Right Arm] Blood Pressure Position [Right Arm] 02 Sat by Pulse Oximetry 98 99 Oxygen Delivery Method Nasal Cannula Nasal Cannula Oxygen Flow Rate (LPM) 4 4 Lab Data Lab Results 09/13/24 11:24: WBC 5.4, RBC 3.60 L, Hgb 10.2 L, Hct 32.7 L, MCV 90.8, MCH 28.3, MCHC 31.2 L, RDW 14.6, Plt Count 242, MPV 9.9, Neut % (Auto) 73.9, Lymph % (Auto) 9.8 L, [place] % (Auto) 10.9 H, Eos % (Auto) 4.6, Baso % (Auto) 0.6, Neut # (Auto) 4.0, Lymph # (Auto) 0.5 L, [place] # (Auto) 0.6, Eos # (Auto) 0.3, Baso # (Auto) 0.0, Sodium 141, Potassium 4.1, Chloride 100, Carbon Dioxide 29, Anion Gap 16.1 H, BUN 40 H, Creatinine 2.50 H, Estimated Creat Clear 40, Estimated GFR 25 L, Est GFR ( Amer) 31 L, Glucose 98, Calcium 9.0, Total Bilirubin 0.3, AST 28, ALT 17, Alkaline Phosphatase 62, Troponin I 0.33 H, NT-Pro-B Natriuret Pep 497 H, Total Protein 7.7, Albumin 4.1, Globulin 3.6 H, Albumin/Globulin Ratio 1.1 09/13/24 12:03: Urine Color Yellow, Urine Appearance Clear, Urine pH 6.0, Ur Specific [place] 1.025, Urine Protein 3+ A, Urine Glucose (UA) Negative, Urine Ketones Trace, Urine Blood 3+ A, Urine Nitrate Negative, Urine Bilirubin 1+ A, Urine Urobilinogen 0.2, Ur Leukocyte Esterase 2+ A, Urine RBC 10-20, Urine WBC 50-100, Ur Squamous Epith Cells None, Urine Bacteria 3+ 09/13/24 12:24: Lactate 1.2 09/13/24 14:16: Troponin I 0.31 H 09/13/24 11:24 09/13/24 11:24 Orders (Tests/Meds): ED MEDICATIONS Generic Name Dose Route Start Last Admin Trade Name Freq PRN Reason Stop Dose Admin Azithromycin 500 mg/ Sodium 250 mls @ 250 mls/hr 09/13/24 13:15 09/13/24 13:44 Chloride IV 09/23/24 13:14 250 mls/hr Q24H HOLLAND Administration Ertapenem 1 gm/ Sodium 50 mls @ 100 mls/hr 09/13/24 13:30 09/13/24 13:37 Chloride IV 09/23/24 13:29 100 mls/hr Q24H HO[place]AND Administration Discontinued Medications Generic Name Dose Route Start Last Admin Trade Name Freq PRN Reason Stop Dose Admin Iopamidol 70 ml 09/13/24 12:17 09/13/24 12:18 Iopamidol-370 (76%);100ml Bottle IV 09/13/24 12:18 70 ml ONCE ONE Administration Sodium Chloride 50 ml 09/13/24 12:17 09/13/24 12:18 0.9 % Sodium Chloride 50 Ml Vial IV 09/13/24 12:18 50 ml ONCE ONE Administration Sodium Chloride 10 ml 09/13/24 12:17 09/13/24 12:18 Sodium Chloride 0.9% 10ml Syr (Rad Only) IV 09/13/24 12:18 10 ml ONCE ONE Administration ORDERS Category Date Time Status CT angio chest PE protocol Stat Cat Scan 09/13/24 11:15 Completed BNP [NT Pro Brain Natriuretic Pep.] Stat Lab 09/13/24 11:24 Completed CBC w/Auto Diff [Complete Blood Count Auto Diff] Stat Lab 09/13/24 11:24 Results CMP [Comprehensive Metabolic Panel] Stat Lab 09/13/24 11:24 Completed Lactic Acid Stat Lab 09/13/24 12:24 Completed Troponin I Q3H Lab 09/13/24 14:16 Completed Troponin I Q3H Lab 09/13/24 17:15 Ordered Troponin I Stat Lab 09/13/24 11:24 Completed UA [Urinalysis and Microscopic] Stat Lab 09/13/24 12:03 Completed Blood Culture Stat Micro 09/13/24 13:00 Received Urine Culture Stat Micro 09/13/24 12:03 Received EKG Request [ECG Request] Stat Y 09/13/24 12:16 Ordered ECG Data Tracing #1: I reviewed this ECG and interpreted as documented below: Sinus bradycardia with ventricular rate of 57 bpm. Prolonged TX interval. QTc borderline prolonged at 486. No ST elevation or depression. Patient does have T wave inversions in V3 through V6. Medical Decision Narrative: Edi Toussaint is a 74-year-old male with a history of lung cancer s/p surgery, COPD on 3 L nasal cannula at baseline, recent cardiac cath, prostate cancer with indwelling Jason who presents to the emergency department from [facility] for concern for unresponsiveness. Reportedly, after breakfast, patient was found to be minimally responsive by staff. Patient states that he was sitting in his wheelchair when he passed out. He reports having some sharp left-sided chest pain at this time. He denies any worsening shortness of breath beyond his baseline. He denies any abdominal pain, nausea, vomiting, diarrhea or fever. He reports chronic cough. Patient notes that he is currently on a blood thinner. On arrival, patient is normotensive with blood pressure 116/69, 66 bpm heart rate, breathing comfortably on room air with oxygen saturation at 95% SpO2. On 4 L nasal cannula. Physical exam, stated above, revealed alert and oriented male in no distress. He has tenderness palpation over the left anterior and lateral chest wall without flail chest. Cardiopulmonary exam is otherwise unremarkable. Abdomen is soft, nondistended nontender. He has a chronic indwelling Jason with yellow clear urine. Cardiac cath report from 09/09/2024 demonstrated: IMPRESSION Severe proximal and mid LAD disease accompanied by MARLENE II flow which improved to MARLENE-3 flow following 3 contiguous drug-eluting stents reducing the stenosis to 0% Persistent moderate disease in the right coronary artery as described above Elevated LVEDP Workup in the emergency department included: CTA pulmonary embolism, CBC, CMP, lactic acid, BNP, troponin, urinalysis, EKG. Workup showed no leukocytosis, hemoglobin 10.2 and hematocrit 32.7 (appears to be at baseline), electrolytes within normal range, creatinine of 2.5 (baseline appears to be around 2.2-3), BUN mildly elevated above normal at 40, GFR of 31, liver enzymes within normal limits, initial troponin, BNP very mildly elevated at 497. EKG showed Sinus bradycardia with ventricular rate of 57 bpm. Prolonged TX interval. QTc borderline prolonged at 486. No ST elevation or depression. Patient does have T wave inversions in V3 through V6. Troponin elevated at 0.33, however, patient noted to have cardiac catheterization 2 days prior and this could be elevated secondary to that as patient's chest pain seems very atypical and reproducible. I did discuss patient's case with Dr. Dodge who recommended admission for trending of troponin. Patient's Jason catheter was replaced and urine sample was obtained that showed 50-100 white blood cells as well as 3+ bacteria, 2+ leukocyte Estrace and negative nitrates. Patient's urine also had a significant amount of sediment and purulence according to nursing staff prior to exchange. Will treat with Rocephin 2 g IV at this time. CT PE interpreted by me personally. No evidence of pulmonary embolism. Patient does have dense opacities in the left upper lobe with pleural thickening not significantly changed, however, there is some increased thickness of the opacities compared to previous CT imaging consistent with likely radiation treatment/radiation pneumonitis vs pneumonia. See final radiology report for details. Adding IV Azithromycin for possible pneumonia. Will discuss patient's case with Dr. Raimrez of the hospital medicine service for admission. After discussing the patient with Dr. Ramirez of [facility] medicine, he recommended obtaining 3-hour Trope as well as giving 1 g IV or ertapenem for 7 days based on previous urinary cultures and susceptibilities. Rocephin was discontinued and 1 g of ertapenem was ordered. Per Dr. Ramirez, there is no in-house cardiology service over the weekend and if patient's repeat 3-hour troponin is stable, his elevated troponin can be best explained by his recent heart cath and stenting and likely does not need admission. Will also discuss placing a midline for IV antibiotics at patient's fdc facility. Dr. Ramirez did come down and write a consult note and evaluate the patient. Upon Dr. Ramirez evaluation, given he was just discharged from the hospital yesterday and looks back to his baseline, just mildly fatigued, recommended placing a midline to receive IV antibiotics at [place]. Based on previous susceptibilities, recommended ertapenem 1 g daily. Repeat troponin is pending. If stable, patient will likely be appropriate for discharge with plan for outpatient antibiotics and follow-up. Repeat troponin downtrending at 0.31. Given this, and reassuring EKG, hospital medicine recommended discharge with outpatient follow-up with cardiology and they will follow-up results of urine culture. See hospital medicine consultation note for further details. Case management will arrange IV or ertapenem at patient's care facility and I will send oral azithromycin for pneumonia atypical coverage. Patient has remained stable throughout his entire ED visit and given this, is felt that he is appropriate for discharge at this time. Return precautions were provided. Patient was then discharged from the emergency department in stable condition. Critical Care Critical Care Time Critical Care Time: Yes Attestation: On 09/13/24, the high probability of a clinically significant, sudden or life threatening deterioration of the following system(s) required my full and direct attention, intervention and personal management. The time I documented below is in addition to time spent performing reported procedures but includes the following listed in this critical care notation. Total Time Total Critical Care Time: 35
--- OUTSIDE RECORDS SUMMARY | 2024-09-13 11:29 | XMS_ITS | Encounter Summary ---
Author Organization Healthcare Address [address] [place] [address] Care Team Providers Care Steward/Stewardess Smoke Room Name Role Phone Edi Chase MD Primary Care Provider [phone] Sam Sanchez MD Unavailable [phone] Cayetano Cannon MD Unavailable [phone] Encounter Details Date Type Department Care Team ([facility] st Contact Info) Description 01/05/2024 Orders Only External Location [address] [place] [address] Cedric Hinton MD [address] [place] [address] Social History Tobacco Use Types Packs/Day Years [...] often do you attend chur ch or episcopal services? Patient unable to answer 12/26/2023 Do you belong to any clubs o r organizations such as taoist groups, unions, fraternal or athletic groups, or [...] unable to answer [facility]20[facility] - Occupational Stress Questionnaire Answer Date [...] 8:00 AM EDT Appointment [facility] Neurophysiology [address] [facility] Room [address] [address] 10/26/2024 1:20 PM EDT Office Visit [facility] [address] [place] [id number] Florentin Tillman MD [address] [place] [address] documented as of this encounter Procedures Procedure [...] documented as of this encounter Care Teams Steward/Stewardess Smoke Room Relationship Specialty Start Date End Date Edi Chase MD [address] [place] [address] PCP - General 03/14/20 Sam Sanchez MD [address] [place] [address] Consulting Physician Pulmonary Disease 08/11/22 Cayetano Cannon MD [address] [facility] [address] [id number] Referring Physician 08/11/22 documented as of this encounter
--- OUTSIDE RECORDS SUMMARY | 2024-09-13 11:29 | XMS_ITS | Encounter Summary ---
Author Organization Healthcare Address [address] [place] [address] Care Team Providers Care Canvas Cutter Hand Name Role Phone Edi Chase MD Primary Care Provider [phone] Sam Sanchez MD Unavailable [phone] Cayetano Cannon MD Unavailable [phone] Encounter Details Date Type Department Care Team (Late st Contact Info) Description 12/12/2023 Orders Only External Location [address] [place] [id number] Provider, External Social History Tobacco Use Types [...] AM EDT Appointment PAV H Neurophysiology 800 [facility] Pav H [address] [place] [address] 10/26/2024 1:20 PM EDT Office Visit [facility] [address] [place] [address] Florentin Tillman MD [address] [place] [address] documented as of this encounter Procedures Procedure [...] documented as of this encounter Care Teams Canvas Cutter Hand Relationship Specialty Start Date End Date Edi Chase MD [address] [place] [address] PCP - General 03/14/20 Sam Sanchez MD [address] [place] [address] Consulting Physician Pulmonary Disease 08/11/22 Cayetano Cannon MD [address] [place] [address] Referring Physician 08/11/22 documented as of this encounter
--- OUTSIDE RECORDS SUMMARY | 2024-09-13 11:29 | XMS_ITS | Encounter Summary ---
Author Organization Healthcare Address [address] [place] [address] Care Team Providers Care Statistician Mathematical Name Role Phone Edi Chase MD Primary Care Provider [phone] Sam Sanchez MD Unavailable [phone] Cayetano Cannon MD Unavailable [phone] Encounter Details Date Type Department Care Team (Late st Contact Info) Description 09/30/2022 Lab Requisition P[facility] H Lab [address] [place] [address] Lyn Santana MD [address] [place] [address] Malignant neoplasm of upper lobe, left bronchus [...] AM EDT Appointment PAV H Neurophysiology 800 [facility] [address] [place] [address] 10/26/2024 1:20 PM EDT Office Visit [facility] [address] [place] [address] Florentin Tillman MD [address] [place] [address] documented as of this encounter Procedures Procedure Name Priority Date/Time Associated Diagnosis Comments AP MISCELLANEOUS LAB TEST (SO) Routine 09/08/2022 11:51 AM EDT Malignant neoplasm of upper lobe, left bronchus or lung (CMS/HCC) documented in this encounter Results * AP Miscellaneous Lab Test (09/08/2022 11:51 AM EDT) Test name OH Profile 10/15/2022 7:42 AM EDT [facility] Comment:[id number] A1 Test Result see scan 10/15/2022 7:42 AM EDT [facility] See Scanned Result 10/15/2022 7:42 AM EDT [facility] Tissue 09/08/2022 11:5 1 AM EDT 09/30/2022 2:24 PM EDT us Lyn Santana MD LAB REF LAB BLOOD AND FLUID ORD Final Result [facility] documented in this encounter Visit [...] documented as of this encounter Care Teams Statistician Mathematical Relationship Specialty Start Date End Date Edi Chase MD [address] [place] [address] PCP - General 03/14/20 Sam Sanchez MD [address] [place] [address] Consulting Physician Pulmonary Disease 08/11/22 Cayetano Cannno MD [address] [place], [place] [address] Referring Physician 08/11/22 documented as of this encounter
--- OUTSIDE RECORDS SUMMARY | 2024-09-13 11:29 | XMS_ITS | Encounter Summary ---
Author Organization Healthcare Address [address] [place] [address] Care Team Providers Care Sales Market Leader Name Role Phone Edi Chase MD Primary Care Provider [phone] Sam Sanchez MD Unavailable [phone] Cayetano Cannon MD Unavailable [phone] Encounter Details Date Type Department Care Team (Late st Contact Info) Description 12/26/2023 Lab Requisition P[facility] H Lab [address] [place] [address] Amado Horton MD [address] [facility] [address] [place] [address] Encounter for general adult medical [...] How often do you attend chur or protestant services? Patient unable to answer 12/26/2023 Do you belong to any clubs o r organizations such as caodaism groups, unions, fraternal or athletic groups, or [...] one occasion? Patient unable to answer 12/26/2023 [facility] - Occupational Stress Questionnaire Answer [...] place to sleep or slept in a care home (including now)? Patient unable to answer 12/26/2023 [...] AM EDT Appointment PAV H Neurophysiology 800 [facility] [address] H [address] [place] [address] 10/26/2024 1:20 PM EDT Office Visit [facility] [address] [place] [address] Florentin Tillman MD [address] [place] [address] documented as of this encounter Procedures Procedure Name Priority Date/Time Associated Diagnosis Comments MULTI DRUG RESISTANCE TEST Routine 12/26/2023 2:00 PM EDT Encounter for general adult medical examination without abnormal findings documented in this encounter Results * Multi Drug Resistance Test (12/26/2023 2:00 PM EDT) Culture No growth at day 1 12/27/2023 12:24 PM EDT [facility] Swab (Nares and Brenda Rectal) 12/26/2023 2:00 PM EDT 12/26/2023 3:15 PM EDT us Amado Horton MD LAB MICROBIOLOGY - GEN ERAL ORDERABLES Final Result [facility] [address] [place] [address] documented in this encounter Visit Diagnoses Diagnosis [...] documented as of this encounter Care Teams Sales Market Leader Relationship Specialty Start Date End Date Edi Chase MD [address] [facility] [place] [address] PCP - General 03/14/20 Sam Sanchez MD [address] [place] [address] Consulting Physician Pulmonary Disease 08/11/22 Cayetano Cannon MD [address] [facility] [address] [place] [address] Referring Physician 08/11/22 documented as of this encounter
--- OUTSIDE RECORDS SUMMARY | 2024-09-13 11:29 | XMS_ITS | Encounter Summary ---
Author Organization Healthcare Address [address] [place] [address] Care Team Providers Care Embedded Linux Engineer Name Role Phone Edi Chase MD Primary Care Provider [phone] Sam Sanchez MD Unavailable [phone] Cayetano Cannon MD Unavailable [phone] Encounter Details Date Type Department Care Team (Late st Contact Info) Description 12/14/2023 Orders Only External Location [address] [place] [address] Cedric Hinton MD [address] [...] EDT Appointment PAV H Neurophysiology [address] [facility] Pav H [address] [place] [address] 10/26/2024 1:20 PM EDT Office Visit [facility] [address] [place] [address] Florentin Tillman MD [address] [place] [address] documented as of this encounter Procedures Procedure [...] documented as of this encounter Care Teams Embedded Linux Engineer Relationship Specialty Start Date End Date Edi Chase MD [address] [place] [address] PCP - General 03/14/20 Sam Sanchez MD [address] [place] [address] Consulting Physician Pulmonary Disease 08/11/22 Cayetano Cannon MD [address] [facility] [address] [place] [address] Referring Physician 08/11/22 documented as of this encounter
--- OUTSIDE RECORDS SUMMARY | 2024-09-13 11:31 | XMS_ITS | Encounter Summary ---
Author Organization [facility] Address [address] [place] [address] Care Team Providers Care Home School Liaison Officer Name Role Phone Edi Chase MD Primary Care Provider Sam Sanchez MD Unavailable [phone] Cayetano Cannon MD Unavailable [phone] Encounter Details Date Type Department Care [...] How often do you attend chur or adventist services? Patient unable to answer 12/26/2023 Do you belong to any clubs o r organizations such as gnosticism groups, unions, fraternal or athletic groups, or [...] Recorded Patient Health Questionnaire-2 Score 1 08/27/2024 [facility] - Occupational Stress Questionnaire Answer [...] AM EDT Appointment PAV H Neurophysiology 800 [facility] [address] [place] [address] 10/26/2024 1:20 PM EDT Office Visit [address] [place] [address] Florentin Tillman MD [address] [place] [address] documented as of this encounter [...] documented as of this encounter Care Teams Home School Liaison Officer Relationship Specialty Start Date End Date Edi Chase MD [address] [place] [address] PCP - General 03/14/20 Sam Sanchez MD [address] [place] [address] Consulting Physician Pulmonary Disease 08/11/22 Cayetano Cannon MD [address] [place] [id number] Referring Physician 08/11/22 documented as of this encounter
--- OUTSIDE RECORDS SUMMARY | 2024-09-13 11:31 | XMS_ITS | Clinical Summary ---
Author Organization [facility] Address [address] [place] [address] Phone Care Team Providers Care Friction Paint Machine Tender Name Role Phone Unavailable Primary Care Provider [...] - 2023-2 5 season) 2023 Influenza Vaccine (#1) 2024 01/03/2011 Hepatitis B Vaccine Aged Out No longe r eligible based on patient's age to complete this topic Meningococcal B Vaccine Aged Out No l onger eligible based on patient's age to complete this topic Medical Devices Implanted Type Area Check Totaler Device Identifier Shelf Expiration Date Model / Serial / Lot Stent Coronary Vision Rx 3.50mm X 18mm - [id number] Implanted:Qty: 1 on 03/16/2010 at [employer] Explanted:at [employer] (Quantity not on file) Stent-Vis ion [facility]:VASC DEV [id number] / / [id number] [place] [address] [place] [address] [place]
--- OUTSIDE RECORDS SUMMARY | 2024-09-13 11:31 | XMS_ITS | Encounter Summary ---
Author Organization [facility] Address [address] [place] [id number] Care Team Providers Care Community Association Manager Name Role Phone Edi Chase MD Primary Care Provider [phone] Sam Sanchez MD Unavailable [phone] Cayetano Cannon MD Unavailable [phone] Encounter Details Date Type Department Care Team (Late st Contact Info) Description 08/22/2024 Telephone [place] [facility] [address], [address] [place] [address] Cuong Catherine MD [address] [place] [id number] Social History Tobacco Use Types Packs/Day Years [...] often do you attend chur ch or spiritism services? Patient unable to answer 12/26/2023 Do you belong to any clubs o r organizations such as yarsanism groups, unions, fraternal or athletic groups, or [...] one occasion? Patient unable to answer 12/26/2023 [facility] - Occupational [...] [facility], she will check with recruiting scheduler. Gave phone number and address. documented in this encounter Plan of Treatment Upcoming Encounters Date Type Department Care Team ([facility] st Contact Info) Description 10/16/2024 8:00 AM EDT Appointment PAV H Neurophysiology 800 [facility] [address] [place] [address] 10/26/2024 1:20 PM EDT Office Visit [facility] [address] [place] [address] Florentin Tillman MD [address] [place] [address] documented as of this encounter Visit Diagnoses [...] documented as of this encounter Care Teams Community Association Manager Relationship Specialty Start Date End Date Edi Chase MD [address] [place] [address] PCP - General 03/14/20 Sam Sanchez MD [address] [place] [address] Consulting Physician Pulmonary Disease 08/11/22 Cayetano Cannon MD [address] [place] [address] Referring Physician 08/11/22 documented as of this encounter
--- OUTSIDE RECORDS SUMMARY | 2024-09-13 11:31 | XMS_ITS | Encounter Summary ---
Author Organization Healthcare Address [address] [place] [address] Care Team Providers Care Sales And Marketing Assistant Name Role Phone Edi Chase MD Primary Care Provider [phone] Sam Sanchez MD Unavailable [phone] Cayetano Cannon MD Unavailable [phone] Encounter Details Date Type Department Care Team (Late st Contact Info) Description 07/08/2022 Orders Only External Location [address] [place] [address] Armani Lopez [place] [address] [place] [address] Social History Tobacco Use Types [...] AM EDT Appointment PAV H Neurophysiology 800 [facility] [address] [place] [address] 10/26/2024 1:20 PM EDT Office Visit [address], [place] [address] Florentin Tillman MD [address] [place] [address] documented as of this encounter Procedures Procedure [...] as of this encounter Care Teams Sales And Marketing Assistant Relationship Specialty Start Date End Date Edi Chase MD [address] [place] [address] PCP - General 03/14/20 Sam Sanchez MD [address] [place] [address] Consulting Physician Pulmonary Disease 08/11/22 Cayetano Cannon MD [address] [place] [address] Referring Physician 08/11/22 documented as of this encounter
--- OUTSIDE RECORDS SUMMARY | 2024-09-13 11:32 | XMS_ITS | Clinical Summary ---
Author Organization Healthcare Address [address] [place] [address] Care Team Providers Care Senior Laboratory Technician Name Role Phone Edi Chase MD Primary Care Provider [phone] Sam Sanchez MD Unavailable [phone] Cayetano Cannon MD Unavailable [phone] Allergies No known active allergies Medications [...] (one) time each day. Active HYDROcodone-rachel taminophen ([place]) 5-325 MG tablet Take 1 tablet (5 [...] Team Description 08/27/2024 1:00 PM EDT Consult [place] [facility] [address], [address] [place] [address] Cuong Catherine MD Dizziness on standing (Primary Dx); Nonintractable episodic headache, unspecified headache type; Cerebrovascular accident (CVA), unspecified mechanism (CMS/HCC) 08/27/2024 Travel 08/22/2024 Telephone [place] [facility] [address], [address] [place] [address] Cuong Catherine MD from Last [...] often do you attend caro center or latter-day services? Patient unable to answer 12/26/2023 Do [...] Recorded Patient Health Questionnaire-2 Score 1 08/27/2024 [facility] - Occupational Stress Questionnaire Answer Date Recorded [...] Recorded In the past 12 months has [place], gas, oil, or water company threatened to [...] AM EDT Appointment PAV H Neurophysiology 800 [facility] Room [address] [address] 10/26/2024 1:20 PM EDT Office Visit [facility] [address] [place] [address] Florentin Tillman MD [address] [place] [address] Health Maintenance Due Date Last Done Comments [facility]-Medicare Annual Wellness (AWV) 1950 [facility]-/Child/Adol SDOH Screenings 1950 [facility]-DTaP,Tdap,and Td Vaccines (1 - Tdap) 08/31/1967 [facility]-Pneumococcal Vaccine: 50+ Years (1 of 2 - PCV) 08/31/1967 [facility]-Zoster Vaccines (1 of 2) 08/31/1967 [id number] Vaccine (3 - Pfizer risk series) 05/10/2020 04/12/2020, 03/22/2020 [facility]-RSV Vaccine: 60+ Years or (1 - 1-dose 75+ series) 08/31/2023 [facility]- SDOH Screenings 06/25/2024 [facility]-Adult SDOH Screenings 06/25/2024 12/26/2023 [facility]-Influenza Vaccine (#1) 11/12/202401/13, 01/30/2019, 01/03/2018, Additional history exists [facility]-Diabetes: Hemoglobin [...] Antibody Negative Negative 12/23/2023 6:55 PM EDT [facility] Blood Venous blood specimen / Unknown Venipuncture / Unknown 12/23/2023 5:39 PM EDT 12/23/2023 6:04 PM EDT Med Lyn MD LAB BLOOD ORDERABLES Final Result Performing Organization Address City/[facility]/ZIP Co de Phone Number [facility] [address] [place] [address] * (ABNORMAL) Hemoglobin A1c (12/23/2023 5:39 PM EDT) Hemoglobin A1c 6.3(H) <5.7 % 12/24/2023 12:22 AM EDT [facility] Blood Venous blood specimen / Unknown Venipuncture / Unknown 12/23/2023 5:39 PM EDT 12/23/2023 5:55 PM EDT Narrative [facility] - 12/24/2023 12:22 AM EDT HA1C Interpretive Data: Diagnosis of Diabetes: Diabetic > or = 6.5% Pre-diabetic 5.7 to 6.4% Non-diabetic < or = 5.6% Glycemic Targets for Type I and Type II Diabetics: Non- Adults <7.0% Adults <6.0% Children and Adolescents <7.5% Source: [place] [employer]. Standards of medical care in diabetes,2017. Diabetes Care.2017:40 (suppl 1):S1-S135. HbA1c assay performed by an ion-exchange chromatography method that is certified traceable to the DCCT. 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 Yes Care Teams Senior Laboratory Technician Relationship Specialty Start Date End Date Edi Chase MD [address] [place] [address] PCP - General 03/14/20 Sam Sanchez MD [address] [place] [address] Consulting Physician Pulmonary Disease 08/11/22 Cayetano Cannon MD [address] [place] [address] Referring Physician 08/11/22
--- OUTSIDE RECORDS SUMMARY | 2024-09-13 11:32 | XMS_ITS | Data Portability ---
Author Organization [facility] ADMIN Address [address] [place] [address] Care Team Providers Care Millwright Instructor Name Role Phone ROZINAROSA Primary Care Provider [phone] Assessment No assessment recorded. Plan of Treatment Reminders Order Date Submit Date Provider Last Modified By Organization Details Last Modified Time Details Appointments FOLLOW UP 30 2024 10:00A M JUSTO VU MD Not available Not available Not available Lab culture, urine + sensitivi ty 2023 024 [email or web address] [facility] (Lab Registration) , [address] [place] [address] , [place], [address], 05/06/2023 07:44:10 urinalysi s, dipstick [address] [facility] [place], [address] [place] [address], [phone], 05/02/2023 09:19:22 Referral None recorded. Procedures bladder scan (PROC) [address] [facility] [place], [address] [place] [address], [phone], 05/02/2023 09:19:22 Surgeries None recorded. Imaging None recorded. Medication Orders cefdinir 300 mg capsule 2023 024 [place] [address] [facility] [place], [facility]ie [address], [place], [address], 04/29/2023 16:44:27 cefdinir 300 mg capsule 2023 [address] [facility] [address] [place] [address] [place] , [place], [address], 03/23/2023 12:36:21 finasteri de 5 mg tablet 2022 023 [facility] [address] [place] [address], [facility] , [place], [address], 03/23/2023 12:36:44 Patient TargetsNo targets recorded. Patient InstructionsNo instructions recorded. Reason for Referral None Reported. Results Created Date Observation Date Name Description Value Unit Range Abnormal Flag Note LastModifiedBy Organization Detail LastModifiedTime 02/16/2002/15/2023 BASIC METAB OLIC PANEL sodium 133 mmol/ L 137-14 7 low Not Available [facility] ([facility]) [address] [place] [address] [place], [address], 02/15/2023 11:26:59 02/16/20 23 02/15/2023 BASIC METAB OLIC PANEL potassium 5.1 mmol/ L 3.5-5. 1 Not Available [facility] ([facility]) [address] [place] [address] [place], [address], 02/15/2023 11:26:59 02/16/20 23 02/15/2023 BASIC METAB OLIC PANEL chloride 93 mmol/ L 98-110 low Not Available [facility] (Pre-Op Clinic) [address] [place] [address] [place], [address], 02/15/2023 11:26:59 02/16/20 23 02/15/2023 BASIC METAB OLIC PANEL carbon dioxide 28 mmol/ L 21-30 Not Available [facility] ([facility]-Op Clinic) [address] [place] [address] [place], [address], 02/15/2023 11:26:59 02/16/20 23 02/15/2023 BASIC METAB OLIC PANEL anion gap 12 mmol/ L 6-14 Not Available [facility] ([facility]-Op Clinic) [address] [place] [address] [place], [address], 02/15/2023 11:26:59 02/16/20 23 02/15/2023 BASIC METAB OLIC PANEL glucose 84 mg/dL 70-115 Not Available [facility] ([facility]Op [facility]) [address] [facility] [place], [address], 02/15/2023 11:26:59 02/16/20 23 02/15/2023 BASIC METAB OLIC PANEL BUN 39 mg/dL 9-20 high Not Available [facility] ([facility]Op [facility]) [address] [place] [address] [place], [address], 02/15/2023 11:26:59 02/16/20 23 02/15/2023 BASIC METAB OLIC PANEL creatinine 2.1 mg/dL 0.5-1. 5 high Not Available [facility] ([facility]Op [facility]) [address] [place] [address] [place], [address], 02/15/2023 11:26:59 02/16/20 23 02/15/2023 BASIC METAB OLIC PANEL BUN/creatini ne ratio 19 ratio 10-20 Not Available [facility] ([facility]Op [facility]) [address] [place] [address] [place], [address], 02/15/2023 11:26:59 02/16/20 23 02/15/2023 BASIC METAB OLIC PANEL glom filtration rate TNP mL/mi n >60- GFR has only been valid ated for patie nts 18-70 years of age. Not Available [facility] (Pre[facility]Op [facility]) [address] [place] [address] [place], [address], 02/15/2023 11:26:59 02/16/20 23 02/15/2023 BASIC METAB OLIC PANEL osmolality (calculated) 286 mosmo l/kg 275-30 1 OSMOL ALITY IS A CALCU LATIO N UTILI ZING THE SERUM /PLAS MA SODIU M, GLUCO SE AND UREA NITRO GEN (BUN) LEVEL S. FOR THE MOST ACCUR ATE RESUL T A MEASU RED SERUM OSMOL ALITY IS CLAUDIO FUNG. Not Available [facility] (Pre-Op [facility]) [address] [place] [address] [place], [address], 02/15/2023 11:26:59 02/16/20 23 02/15/2023 BASIC METAB OLIC PANEL calcium 9.4 mg/dL 8.5-10 .8 Not Available [facility] ([facility]Op [facility]) [address] [place] [address] [place], [address], 02/15/2023 11:26:59 02/16/20 23 02/15/2023 BASIC METAB OLIC PANEL note Unles s other hernandez noted testi ng perfo rmed at: [facility] [address] [place] [address] Arnaud mays MD Not Available [facility] ([facility]Op [facility]) [address] [place] [address] [place], [address], 02/15/2023 11:26:59 02/19/20 23 02/18/2023 RFS-P ATHOL OGY SPECI MEN REQUE ST pathreq Patho logy [address] [place] [address] Phone or [phone] Fax Joseph almonte Jr., M.D., Medic al Direc tor [facility] [address] : [place] [address] Phone Numbe r: [phone] Arnaud mays M.D. PATHO LOGY REPOR T Patie nt Name: AUDRA MEJIA Date of : 1950 Age/S ex: 72/M Accou nt Numbe r: [id number] Medic al Recor d Numbe r: [id number] Order ing MD: RICCARDO HARTLEY AM Date Colle cted : 2022 Date Recei balta : 2022 Date Repor harsh : 02/23 Exam: Biops y Acces heath# : [id number] Labor atory #: [id number] Copie s To: Techn ician : Clini yobani Histo ry Benig n prost atic hyper plasi a, urine reten tion Previ ous Patie nt Histo ry and Files ROBERTO MORAN ([birth year] 9 M) i??SS N: [id number] ?? 1. S23-0 56665 , DateC ollec harsh: 06/22 A: SPLEN IC FLEXU RE BIOPS Y Diagn osis: Colon ic type mucos a with no signi fican t histo patho logic abnor malit ies ROGELIO 2. S22-0 13316 , DateC ollec harsh: 12/15 A: COLON , POLYP , 12CM Diagn osis: Hyper plast ic polyp . B: COLON , POLYP , 7CM Diagn osis: Hyper plast ic polyp . C: COLON , POLYP , 5CM Diagn osis: Hyper plast ic polyp . 3. S21-0 83846 , DateC ollec harsh: 09/29 A: RIGHT [...] nal Lymph Nodes (pN): pN1a 4. S21-0 77384 , DateC ollec harsh: 09/25 A: CECUM [...] or high- grade dyspl albino 5. S21-0 05234 , DateC ollec harsh: 07/10 A: ANTRU M, BIOPS Y Diagn osis: React leonor gastr opath y and mild chron ic gastr itis with intes tinal Legal ly authe ntica harsh by ARNAUD RENE MD 02-23 15:53 :00 metap lasia Negat leonor for dyspl albino FLP/p ah 6. S19-0 73407 , Date ollec harsh: 09/07 A: SKIN, [...] red by Arnaud mays Jr., MCindyD. at [facility], [address] [place] [address] . Final Diagn osis BENIG N PROST ATIC HYPER PLASI A EJT/S M Stain *Recu [place] ;[place] [address] Legal ly authe ntica harsh by ARNAUD RENE MD 02-23 15:53 :00 Not Available [facility] ([facility]) [address] [place] [address] [place], [address], 02/23/2023 16:17:04 02/20/20 23 02/19/2023 CBC W/ AUTO DIFF WBC 7.57 K/uL 4.5-11 .5 Not Available [facility] ([facility]) [address] [place] [address] [place], [address], 02/19/2023 06:08:08 02/20/2002/19/2023 CBC W/ AUTO DIFF RBC 3.38 M/uL 4.0-5. 4 low Not Available [facility] ([facility]) [address] [place] [address] [place], [address], 02/19/2023 06:08:08 02/20/2002/19/2023 CBC W/ AUTO DIFF HGB 9.5 g/dL 14.0-1 8.0 low Not Available [facility] ([facility]) [address] [place] [address] [place], [address], 02/19/2023 06:08:08 02/20/20 23 02/19/2023 CBC W/ AUTO DIFF HCT 28.8 % 40-54 low Not Available [facility] ([facility]Op [facility]) [address] [place] [address] [place], [address], 02/19/2023 06:08:08 02/20/2005 0302/19/2023 CBC W/ AUTO DIFF MCV 85.2 fL 80.0-1 00.0 Not Available [facility] ([facility]) [address] [place] [address] [place], [address], 02/19/2023 06:08:08 02/20/20 23 02/19/2023 CBC W/ AUTO DIFF MCH 28.1 pg 26.0-3 2.0 Not Available [facility] ([facility]) [address] [place] [address] [place], [address], 02/19/2023 06:08:08 02/20/2002/19/2023 CBC W/ AUTO DIFF MCHC 33.0 g/dL 32.0-3 6.0 Not Available [facility] ([facility]Op [facility]) [address] [place] [address] [place], [address], 02/19/2023 06:08:08 02/20/2002/19/2023 CBC W/ AUTO DIFF RDW 14.7 % 11.5-1 4.5 high Not Available [facility] ([facility]Op [facility]) [address] [place] [address] [place], [address], 02/19/2023 06:08:08 02/20/2002/19/2023 CBC W/ AUTO DIFF platelet count 244 K/uL 142-42 4 Not Available [facility] ([facility]Op [facility]) [address] [place] [address] [place], [address], 02/19/2023 06:08:08 02/20/2002/19/2023 CBC W/ AUTO DIFF MPV 9.1 fL 6.8-10 .2 Not Available [facility] ([facility]) [address] [place] [address] [place], [address], 02/19/2023 06:08:08 02/20/2002/19/2023 CBC W/ AUTO DIFF neutrophil % 81.2 % 50-70 high Not Available [facility] ([facility]Op [facility]) [address] [place] [address] [place], [address], 02/19/2023 06:08:08 02/20/20 23 02/19/2023 CBC W/ AUTO DIFF lymphocyte % 5.3 % 18.0-4 2.0 low Not Available [facility] ([facility]) [address] [place] [address] [place], [address], 02/19/2023 06:08:08 02/20/2002/19/2023 CBC W/ AUTO DIFF monocyte % 10.2 % 2.0-11 .0 Not Available [facility] ([facility]) [address] [place] [address] [place], [address], 02/19/2023 06:08:08 02/20/2002/19/2023 CBC W/ AUTO DIFF eosinophil % 2.6 % 1.0-3. 0 Not Available [facility] ([facility]) [address] [place] [address] [place], [address], 02/19/2023 06:08:08 02/20/2002/19/2023 CBC W/ AUTO DIFF basophil % 0.4 % 0.0-2. 0 Not Available [facility] ([facility]) [address] [place] [address] [place], [address], 02/19/2023 06:08:08 02/20/2002/19/2023 CBC W/ AUTO DIFF immature granulocytes % 0.3 % 0.0-0. 8 Not Available [facility] ([facility]) [address] [place] [address] [place], [address], 02/19/2023 06:08:08 02/20/2002/19/2023 CBC W/ AUTO DIFF nucleated red blood cells % 0.0 % Not Available [facility] ([facility]) [address] [place] [address] [place], [address], 02/19/2023 06:08:08 12/09/20 23 02/19/2023 CBC W/ AUTO DIFF neutrophil # 6.15 K/uL Not Available [facility] ([facility]) [address] [place] [address] [place], [address], 02/19/2023 06:08:08 02/20/20 23 02/19/2023 CBC W/ AUTO DIFF lymphocyte # 0.40 K/uL Not Available [facility] ([facility]) [address] [place] [address] [place], [address], 02/19/2023 06:08:08 02/20/20 23 02/19/2023 CBC W/ AUTO DIFF monocyte # 0.77 K/uL Not Available [facility] ([facility]) [address] [place] [address] [place], [address], 02/19/2023 06:08:08 02/20/20 23 02/19/2023 CBC W/ AUTO DIFF eosinophil # 0.20 K/uL Not Available [facility] ([facility]) [address] [place] [address] [place], [address], 02/19/2023 06:08:08 02/20/20 23 02/19/2023 CBC W/ AUTO DIFF basophil # 0.03 K/uL Not Available [facility] ([facility]) [address] [place] [address] [place], [address], 02/19/2023 06:08:08 02/20/20 23 02/19/2023 CBC W/ AUTO DIFF immature gramulocytes # 0.02 K/uL Not Available [facility] ([facility]) [address] [place] [address] [place], [address], 02/19/2023 06:08:08 02/20/20 23 02/19/2023 CBC W/ AUTO DIFF nucleated red blood cells # 0.00 k/uL Not Available [facility] ([facility]) [address] [place] [address] [place], [address], 02/19/2023 06:08:08 02/20/20 23 02/19/2023 CBC W/ AUTO DIFF manual differential NO Not Available [facility] ([facility]) [address] [place] [address] [place], [address], 02/19/2023 06:08:08 02/20/20 23 02/19/2023 CBC W/ AUTO DIFF note Unles s other hernandez noted testi ng perfo rmed at: [facility] [address] [place] [address] Arnaud mays MD Not Available [facility] ([facility]Op [facility]) [address] [place] [address] [place], [address], 02/19/2023 06:08:08 02/20/20 23 02/19/2023 BASIC METAB OLIC PANEL sodium 139 mmol/ L 137-14 7 Not Available [facility] ([facility]) [address] [place] [address] [place], [address], 02/19/2023 06:44:15 02/20/20 23 02/19/2023 BASIC METAB OLIC PANEL potassium 4.3 mmol/ L 3.5-5. 1 Not Available [facility] ([facility]) [address] [place] [address] [place], [address], 02/19/2023 06:44:15 02/20/20 23 02/19/2023 BASIC METAB OLIC PANEL chloride 108 mmol/ L 98-110 Not Available [facility] ([facility]) [address] [place] [address] [place], [address], 02/19/2023 06:44:15 02/20/20 23 02/19/2023 BASIC METAB OLIC PANEL carbon dioxide 26 mmol/ L 21-30 Not Available [facility] ([facility]) [address] [place] [address] [place], [address], 02/19/2023 06:44:15 02/20/20 23 02/19/2023 BASIC METAB OLIC PANEL anion gap 5 mmol/ L 6-14 low Not Available [facility] ([facility]) [address] [place] [address] [place], [address], 02/19/2023 06:44:15 02/20/20 23 02/19/2023 BASIC METAB OLIC PANEL glucose 95 mg/dL 70-115 Not Available [facility] ([facility]) [address] [place] [address] [place], [address], 02/19/2023 06:44:15 02/20/20 23 02/19/2023 BASIC METAB OLIC PANEL BUN 32 mg/dL 9-20 high Not Available [facility] ([facility]) [address] [place] [address] [place], [address], 02/19/2023 06:44:15 02/20/20 23 02/19/2023 BASIC METAB OLIC PANEL creatinine 1.7 mg/dL 0.5-1. 5 high Not Available [facility] ([facility]) [address] [place] [address] [place], [address], 02/19/2023 06:44:15 02/20/20 23 02/19/2023 BASIC METAB OLIC PANEL BUN/creatini ne ratio 19 ratio 10-20 Not Available [facility] ([facility]) [address] [place] [address] [place], [address], 02/19/2023 06:44:15 02/20/20 23 02/19/2023 BASIC METAB OLIC PANEL glom filtration rate TNP mL/mi n >60- GFR has only been valid ated for patie nts 18-70 years of age. Not Available [facility] (Pre[facility]Op [facility]) [address] [place] [address] [place], [address], 02/19/2023 06:44:15 02/20/20 23 02/19/2023 BASIC METAB OLIC PANEL osmolality (calculated) 296 mosmo l/kg 275-30 1 OSMOL ALITY IS A CALCU LATIO N UTILI ZING THE SERUM /PLAS MA SODIU M, GLUCO SE AND UREA NITRO GEN (BUN) LEVEL S. FOR THE MOST ACCUR ATE RESUL T A MEASU RED SERUM OSMOL ALITY IS CLAUDIO FUNG. Not Available [facility] (Pre[facility]Op [facility]) [address] [place] [address] [place], [address], 02/19/2023 06:44:15 02/20/20 23 02/19/2023 BASIC METAB OLIC PANEL calcium 8.5 mg/dL 8.5-10 .8 Not Available [facility] ([facility]) [address] [place] [address] [place], [address], 02/19/2023 06:44:15 02/20/20 23 02/19/2023 BASIC METAB OLIC PANEL note Unles s other hernandez noted testi ng perfo rmed at: [facility] [address] [place] [address] Arnaud mays MD Not Available [facility] ([facility]) [address] [place] [address] [place], [address], 02/19/2023 06:44:15 04/29/19 24 04/29/[address] URINE results [facility] 04-30 600 >100, 000 COL/M L Gram Negat leonor Rods Not Available [facility] (Lab Registration) [address] [place] [address] [place], [address], 04/30/2023 06:02:04 04/29/19 24 04/29/2023 CULTU RE URINE note Unles s other hernandez noted testi ng perfo rmed at: [facility] [address] [facility] [place] [address] [phone] Arnaud mays MD CLIA: [id number] Not Available [facility] (Lab Registration) [address] [place] [address] [place], [address], 04/30/2023 06:02:04 04/29/19 24 04/29/2023 CULTU RE URINE culccur ===== ===== ===== ===== ===== ===== ===== ===== ===== ===== ===== ===== ===== ===== ===== ===== ===== ===== ===== ===== ===== ===== ===== ===== Speci men NO.: [id number] Exam Statu s: Final Proce dure: CULTU RE URINE ===== ===== ===== ===== ===== ===== ===== ===== ===== ===== ===== ===== ===== ===== ===== ===== ===== ===== ===== ===== ===== ===== ===== ===== Iso/R esult : 01 Klebs iella pneum oniae ESBL Antim icrob ic/Do se LUYC Syste lucy Urine __ ___ ___ Ampic [...] Negat leonor Rods Not Available [facility] (Lab Registration) [address] , [place], [address], 05/01/2023 07:47:10 04/29/19 24 04/29/2023 CULTU RE URINE note Unles s other ehrnandez noted testi ng perfo rmed at: [facility] [address] [place] [address] [phone] Arnaud mays MD CLIA: [id number] Not Available [facility] (Lab Registration) [address] , [place], [address], 05/01/2023 07:47:10 04/29/19 24 04/29/2023 bladd er scan (PROC ) Calculated Residual Urine: 699 ML Not Available [address], [address], 04/29/2023 11:45:28 04/29/19 24 04/29/2023 urina lysis , dipst ick Leukocytes (reference range) large Not Available [address], [address], 04/29/2023 11:44:38 04/29/19 24 04/29/2023 urina lysis , dipst ick Nitrite (reference range:) positi ve Not Available [address], [address], 04/29/2023 11:44:38 04/29/19 24 04/29/2023 urina lysis , dipst ick Urobilinogen (reference range) 1 Not Available [address], [address], 04/29/2023 11:44:38 04/29/19 24 04/29/2023 urina lysis , dipst ick Protein (reference range) 300 Not Available [address], [address], 04/29/2023 11:44:38 04/29/19 24 04/29/2023 urina lysis , dipst ick pH (reference range 5-8.5) 6.5 Not Available [address], [address], 04/29/2023 11:44:38 04/29/19 24 04/29/2023 urina lysis , dipst ick Blood (reference range:) large Not Available [address], [address], 04/29/2023 11:44:38 04/29/19 24 04/29/2023 urina lysis , dipst ick Specific Lolita (reference range) 1.020 Not Available [address], [address], 04/29/2023 11:44:38 04/29/19 24 04/29/2023 urina lysis , dipst ick Ketone (reference range) trace Not Available [address], [address], 04/29/2023 11:44:38 04/29/19 24 04/29/2023 urina lysis , dipst ick Bilirubin (reference range) small Not Available [address], [address], 04/29/2023 11:44:38 04/29/19 24 04/29/2023 urina lysis , dipst ick Glucose (reference range) negati ve Not Available [address], [address], 04/29/2023 11:44:38 02/22/20 23 02/21/2023 cardi ac clear ance* No observ ation record ed. [email or web address] [facility] [address] [place] [address] [place], [address], 02/24/2023 10:25:26 03/25/19 24 03/25/2023 CT, chest , w/o contr ast [facility] [address] [facility] [place] [place] [address] Phone: Fax: Name: ROBERTO TOUSSAINT Exam Date: 024 : 949 Age 72 Gender : M Access ion: [id number] Physic amalia: JUSTO VU Facili ty: [facility] Facili ty HSV: Outpat ient Exam: CT [...] you [facility] Legall y authen ticate d by POPE TIFFANY Collins 03-25 10:48: 47 CC'ed Logic: Orderi ng Provid er: MIRELLA KEMP Attend ing Provid er: MIRELLA KEMP Referr ing Provid er: MIRELLA KEMP Admitt ing Provid er: MIRELLA KEMP [email or web address] [facility] [address] [place], [address], 04/05/2023 08:15:45 01/16/20 24 11/11/2023 PET-C T, skull base to mid-t high scan No observ ation record ed. [facility] [address] [facility], [place], [address], 01/20/2024 11:35:25 06/02/19 25 06/01/2024 CT, chest , w/o contr ast No observ ation record ed. [address], [place], [address], 06/04/2024 15:30:09 Result Notes Documentation Provider Name and Address Organization Details Recorded Time Ct, Chest, W/o Contrast : [facility] [address] [place] [address] Name: ROBERTO TOUSSAINT Exam Date: 03/25/2023 : 1950 Age 72 Gender: M Physician: JUSTO VU Facility: [facility] Facility HSV: Outpatient Exam: CT CHEST W/O [...] Thank you for referring ROBERTO TOUSSAINT to [facility]. 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 Anabella vyas [place] - [place] 4 10:52:11 Chronic renal failure 48528933 Active 2022 SHAREE Lopez - [place] 4 10:52:11 Heart failure 14525689 Active 2022 Tefanie Saulo null, [place] 4 10:52:11 Diastolic dysfunction 6049354 Active 2022 Anabella Vernon [place], [place] 4 10:52:11 Anemia 580806134 Active 2022 Anabella Vernon [place] 4 10:52:11 Acute stroke 8391329546876 04 Active 2022 Anabella [place] 4 10:52:11 Disease of liver 443992190 Active 2022 Anabella Vernon null, [place] - [place] 4 10:52:11 Hypercholes terolemia 24260973 Active 2022 Anabella vyas[place] 4 10:52:11 Gastroesoph ageal reflux disease 134443691 Active 2022 Anabella Vernon null, [place] 4 10:52:11 Kidney stone 92422292 Active 2022 Anabella Vernon [place] 4 10:52:11 Glaucoma 24040273 Active 2022 Anabella vyas[place] 4 10:52:11 Arthritis 7628822 Active 2022 Anabella Vernon null[place] 4 10:52:11 Hypertensiv e disorder 59441889 Active 2022 Anabella Vernon [place] 4 10:52:11 Benign prostatic hyperplasia with outflow obstruction 733981743 Active Anabella Vernon null, [place] 4 10:52:11 Problem Notes Documentation Provider Name and Address Organization Details Recorded Time Script Reader Consult Note : SW met with pt [...] will offer supports ongoing. Danielle Ba lilliamSHAREE [facility] [place] [facility] [place] 04/04/2024 07:14:40 Procedures Surgical History Date Name Laterality Status Provider Name and Address Organization Details Recorded Time 06/10/19 23 Cystoscopy-Male completed Venkatesh Hartley Jr, MD [address] [place] [address], [address], [place], [address], SHAREE [facility] [place] [facility] [place] 06/09/2022 16:55:32 ureteroscopy completed Anabella TOLLIVER [facility] [place] [facility] [place] 06/09/2022 13:23:50 Knee arthroscopy/surg frederick completed Anabella Vernon SHAREE [facility] [place] [facility] [place] 06/09/2022 13:23:58 Imaging Results None recorded. Procedure Notes None recorded. Medical Equipment None Reported. Allergies Allergen ID Allergen Name Allergen Category Reaction Reaction Severity Criticality Documentation Date Start Date Code Code System Note Provider Name and Address Organization Details Recorded Time 407071 No known allergy (situatio n) Not available Not available Not available Not available 03/23/2023 [id number] SNOMED Anabella vyas SHAREE [facility] & [place] 10:51:22 No known drug allergies Medications Name [...] Base) MCG/ACT d ose:0.0 route:IN HALED starla quency:SD N active Not Available Not Available No [...] [degF] Anabella TOLLIVER - LPNT - [facility] & [place] 03/23/2023 10:51:14 Date Recorded Body temperature Body height Body mass index (BMI) Body weight Provider Name and Address Organization Details Last Updated DateTime 04/29/2023 97.9 [degF] 182.88 cm 33.2 kg/m2 838998.13 g Anabella HUNTER [facility] & [place] 04/29/2023 10:18:52 Date Recorded Body height Body mass index (BMI) Body weight Body temperature Provider Name and Address Organization Details Last Updated DateTime 05/27/2023 182.88 cm 28.5 kg/m2 05707.4 g 97.3 [degF] Salud [place] - [facility] & [place] 05/27/2023 11:23:11 Date Recorded Body height Body mass index (BMI) Body weight Body temperature Provider Name and Address Organization Details Last Updated DateTime 11/23/2023 182.88 cm 28.5 kg/m2 58023.4 g 97.7 [degF] Anabella Vernon [place] - [facility] [place] 11/23/2023 09:14:40 Date Recorded Body temperature Provider Name a nd Address Organization Details Last Updated DateTime 01/28/2023 97.9 [degF] Anabella Vernon [place] - LPNT - [facility] & [place] 01/28/2023 13:10:38 Social History None recorded. Functional Status Question Answer Note LastModified by Organization D etails LastModified Time What is your level of alcohol consumption? None [email or web address] Information not available 06/02/2022 Mental Status None recorded. Family History Relationship Description Onset Age of this Age Resolved Age Notes LastModified by Organization Details LastModified Time Mother Family history unknown dec [email or web address] Not available 2022 13:23:21 Sister Family history unknown x3 dec Not available 2022 13:23:21 Brother Family history unknown [email or web address] Not available 2022 13:23:21 Father Malignant neoplastic disease dec Not available 2022 13:23:30 Medical History No medical history recorded. Past Encounters Encounter ID Performer Location Encounter Start Date Encounter Closed Date Diagnosis/Indication Diagnosis SNOMED-CT Code Diagnosis ICD10 Code Diagnosis Note [id number] Venkatesh Hartley Jr, MD [facility] [address] [address] 06/09/2022 13:36:19 06/09/2022 15:11:25 Retention of urine 544730856 R33.9 71-year-ol d male with multiple medical [...] cardiologi st who is Dr. Dodge in [place]. If he is deemed a reasonable candidate we will set him up for TURP. 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 His retention has been managed with a Jason catheter now for several months. States it is being changed on a monthly basis. Cardiac clearance was recently given per Dr. Nain bower as office at [facility]. Patient is not a great surgical candidate. He is on Xarelto. His cardiologi st has deemed him a reasonable surgical candidate. We will get a preop clearance from anesthesio logist at [facility]. We will stop his blood thinners prior to his TURP. We will start him on finasterid e today to help decrease any possible prostate bleeding. [id number] Venkatesh Hartley Jr, MD [facility] [address] [address] 03/23/2023 10:46:37 03/23/2023 11:42:10 Incomplete emptying of urinary bladder due to benign prostatic hypertrophy [id number] 20783 N40.1 patient with history of urinary retention secondary to prostate enlargemen t. He underwent a TURP at [facility] on February 18. He returns today with [...] for the prolonged catheteriz ations and removal. [id number] Venkatesh Hartley Jr, MD [facility] [address] [address] 04/29/2023 10:18:10 04/29/2023 11:38:41 Recurrent urinary tract infection [id number] N39.0 Patient with urinary symptoms of frequency, urgency and hematuria. His urine appears infected. We will culture the urine and patient placed on a course of cefdinir today. He will follow up in 1 month. Incomplete emptying of urinary bladder due to benign prostatic hypertrophy [id number] 46806 N40.1 patient with history of urinary retention secondary to prostate enlargemen t. He underwent a TURP at [facility] on February 18. patient with complaints of frequency, urgency and gross hematuria. He has evidence of a urinary tract infection which may be contributi ng to his symptoms. We also discussed that hematuria, urgency and frequency could be normal sequela of his TURP. Patient also takes Xarelto for other medical issues. [id number] Venkatesh Hartley Jr, MD [facility] [address] [address] 05/27/2023 11:21:35 05/27/2023 12:30:45 Incomplete emptying of urinary bladder due to benign prostatic hypertrophy [id number] 19253 N40.1 patient with history of urinary retention secondary to prostate enlargemen t. He underwent a TURP at [facility] on February 18. He states he is voiding better and he is now ambulatory but PVR still elevated at 671 cc. Recurrent urinary tract infection [id number] N39.0 Pt with uti's due to incomplete emptying. To increase fluids and observe timed voiding. [id number] Venkatesh Hartley Jr, MD [facility] [address] [address] 11/23/2023 09:08:44 11/23/2023 09:50:37 Incomplete emptying of urinary bladder due to benign prostatic hypertrophy [id number] 11212 N40.1 patient with history of urinary retention secondary to prostate enlargemen t. He underwent a TURP at [facility] on February 18. He states he is voiding better and he is now ambulatory but PVR still elevated due to bladder decompensa tion. Recurrent urinary tract infection [id number] N39.0 Pt with uti's due to incomplete [...] Hawkins Member ID Guarantor Name 07/06/2024 2 MEDICAID-[facility] [employer] CHOICES - FFS/TRADITIO NAL Roberto Toussaint [id number] Roberto Toussaint 07/06/2024 1 MEDICARE[place] (MEDICARE) Roberto Toussaint [id number] Roberto Toussaint 11/23/2023 2 MEDICAID-[facility] HEALTH CHOICES - FFS/TRADITIO NAL Roberto Toussaint [id number] Roberto Toussaint Notes Date Note Type Note [...] recommended. Months later he is seen his blind hooker and has been deemed a acceptable risk for the TURP. He continues on Xarelto. He is legally blind. He lives in the group home. Venkatesh Hartley Jr, MD [address] [place] [address], [address], [place], [address], [facility] - [place] & [place] 01/28/2023 14:59:58 03/23/2023 text/html patient is a 72-year-old black male with history of urinary retention. Cystoscopy has shown trilobar hyperplasia and patient underwent a TURP on February 18, 2023 at [facility]. There was a large median lobe that was resected. Patient's prostate was very large and resected in stages. Pathology from the prostatic chips showed no evidence of cancer. Patient returns today for a voiding trial but should have been scheduled for a voiding trial 2-3 weeks ago. He is had the same catheter in since discharge. Venkatesh Hartley Jr, MD [address] [facility], [address], [place], [address], [facility] 03/23/2023 12:37:30 04/29/2023 text/html Patient is a 72-year-old black male with a history of urinary retention. He underwent a TURP on February 18, 2023 at [facility]. Patient had a very large median lobe [...] 699 cc. Venkatesh Hartley Jr, MD [address] [facility], [address], [place], [address], [facility] & [place] 04/29/2023 16:45:15 05/27/2023 text/html Pt with h/o [...] the Cefdinir. Venkatesh Hartley Jr, MD [address] [facility], [address], [place], [address], [facility] & [place] 08/21/2023 23:04:36 11/23/2023 text/html Patient is a [...] as a result. Venkatesh Hartley Jr, MD [address] [place] [address], [address], [place], [address], [facility] - [place] & [place] 11/23/2023 12:51:08
[2024-09-13 11:37] LABS: Hematocrit 32.7 % (42.0-52.0); Hemoglobin 10.2 g/dL (14.1-18.0); Immature Granulocytes % 0.2 %; Mean Corpuscular HGB Conc 31.2 g/dL (31.8-35.4); Mean Corpuscular Hemoglobin 28.3 pg (27.0-31.2); Mean Corpuscular Volume 90.8 fl (80-94); Nucleated Red Blood Cells % 0 %; Platelet Count 242 K/mm3 (142-424); Red Blood Count 3.60 M/mm3 (4.60-6.20); Red Cell Distribution Width-SD 49.0 fL; White Blood Count 5.4 K/mm3 (4.8-10.8)
[2024-09-13 11:40] LABS: Albumin Level 4.1 g/dl (3.5-5.0); Chloride 100 mmol/L (98-107); Potassium 4.1 mmoL/L (3.5-5.1); Sodium 141 mmol/L (136-145)
[2024-09-13 11:42] LABS: Alanine Aminotransferase 17 U/L (12-78); Anion Gap 16.1 mEq/L (5-15); Aspartate Amino Transferase 28 U/L (17-59); Blood Urea Nitrogen 40 mg/dl (9-20); Carbon Dioxide 29 mmol/L (22.0-30.0); Creatinine Clearance Estimated 40 mL/min (50-200); Creatinine,Serum 2.50 mg/dl (0.66-1.25); Estimated Glomerular Filt Rate 25 ml/min (>60); GFR (African American) 31 ML/MIN (>60)
[2024-09-13 11:43] LABS: Albumin/Globulin Ratio 1.1 (1.1-1.8); Alkaline Phosphatase 62 U/L (38-126); Bilirubin,Total 0.3 mg/dl (0.2-1.3); Calcium 9.0 mg/dl (8.4-10.2); Globulin 3.6 g/dL (1.3-3.2); Glucose 98 mg/dl (74-100); Total Protein,Serum 7.7 g/dl (6.3-8.2)
[2024-09-13 11:53] LABS: NT Pro Brain Natriuretic Pep. 497 pg/mL (0-450)
[2024-09-13 12:01] LABS: Troponin I 0.33 ng/ml (0.00-0.034)
--- NOTE | 2024-09-13 12:06 | PC.NURSE ---
Chronic bhandari replaced per Dr. Pond's order. Patient tolerated well, no complications noted.
[2024-09-13 12:08] LABS: Microscopic, Urine URINE MICROSCOPIC (MICROSCOPIC)
--- NOTE | 2024-09-13 12:11 | PC.NURSE ---
Pt was taken to radiology
--- NOTE | 2024-09-13 12:12 | PC.NURSE ---
had cardiology paged to [phone]
[2024-09-13] MEDS: SODIUM CHLORIDE 0.9% 10ML SYR (RAD ONLY) 10 ML IV (12:18)
[2024-09-13] MEDS: 0.9 % SODIUM CHLORIDE 50 ML VIAL IV (12:18)
[2024-09-13] MEDS: IOPAMIDOL-370 (76%);100ML BOTTLE 70 ML IV (12:18)
--- NOTE | 2024-09-13 12:22 | PC.NURSE ---
Pt is back from radiology
[2024-09-13 12:26] LABS: Color,Urine YELLOW (Yellow); Glucose,Urine (UA) Negative (Negative); Ketones,Urine TRACE (Negative); Leukocyte Esterase,Urine 2+ (Negative); PH,Urine 6.0 (5.0-8.5); Protein,Urine 3+ (Negative); Specific Gravity, Urine 1.025 (1.005-1.030); Urobilinogen,Urine 0.2 EU/dl (0.2)
--- NOTE | 2024-09-13 12:26 | ECG_ITS ---
APPROVED REPORT Exam: Resting ECG HR:57 bpm ECG Measurements Heart Rate 57 AXES QRSd 111 QRS -47 QT 492 T -65 QTc 486 Conclusion SUPRAVENTRICULAR BRADYCARDIA LEFT ANTERIOR FASCICULAR BLOCK [QRS AXIS <= -45, QR IN I, RS IN II] ST DEVIATION AND MODERATE T-WAVE ABNORMALITY, CONSIDER ANTEROLATERAL ISCHEMIA [-0.1+ mV T-WAVE IN V3-V6] ABNORMAL ECG Electronically signed by : PILAR KOENIG, 09/18/2024 08:20:45
[2024-09-13 12:30] LABS: Bilirubin,Urine 1+ (Negative)
[2024-09-13 12:34] LABS: Bacteria,Urine 3+ /lpf; WBC,Urine 50-100 #/hpf (0-3)
--- NOTE | 2024-09-13 13:11 | EXP.MED.CON ---
History of Present Illness *Admission Date: 09/13/24 *Reason for visit:: Confusion *History of present illness: 74-year-old male with multiple comorbidities including blindness, chronic indwelling catheter, lung cancer, recent stenting 2 days ago. Presented with confusion from his nursing facility. His oxygen did come off and he was more fatigued and altered. On arrival, improved with replacement of his oxygen. Workup concerning for UTI with abnormal urine. Also elevated troponin of 0.33. Denies any chest pain. Back to baseline mentation with GCS of 15. Does appear weak compared to yesterday however when I evaluated him prior to discharge. Medicine was consulted by the ER to evaluate for admission versus discharge plan back to his nursing facility. Patient denies any pain, shortness of breath, nausea or vomiting. Denies any fever or chills. States he just feels fatigued. Urinalysis reviewed along with labs. Does appear to have UTI associated with his long-term catheter. Has had resistant gram-negative UTIs in the past per chart review. [facility] Disclaimer: The information contained in this section may have been updated after the patient was seen, as this information can be updated by other users. Medical History Lung cancer COPD mixed type PAF (paroxysmal atrial fibrillation) Knee pain, right Hyperkalemia Polycystic kidney UTI (urinary tract infection) Acute renal injury Jason catheter in place Pain in left arm Chronic hypoxic respiratory failure, on home oxygen therapy Hx of prostatic malignancy Colon cancer Knee pain Heart failure with preserved ejection fraction Peripheral edema Acute exacerbation of chronic obstructive pulmonary disease Adenocarcinoma of lung Chronic obstructive pulmonary disease CKD (chronic kidney disease) Stopped smoking with greater than 30 pack year history CVA (cerebral vascular accident) Blind Congestive heart failure Renal stones Gastroesophageal reflux 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) CVA (cerebral vascular accident) Obesity (BMI 30.0-34.9) Elevated left ventricular end-diastolic pressure (LVEDP) Diastolic dysfunction Pulmonary HTN Surgical History Hx of total knee arthroplasty History of bowel resection History of bronchoscopy History of ureteroscopy History of colonoscopy History of colectomy Family History Unknown Cancer Other Family history of cancer Social History Smoking Status: Former smoker tobacco type: cigarettes packs per day: 1 alcohol intake: never substance use type: denies use current occupational status: disabled Travel in the last 8 weeks?: None caregiver/support person: Yes household members: none housing: [facility] lives independently: No marital status: single current occupation: [employer] current occupational exposures/hazards: No caffeine: Yes special milad needs: No agree to transfusion: No do you feel safe at home: Yes victim of physical abuse: No victim of emotional abuse: No victim of sexual abuse: No would you like helpful sources: No Have you lived/traveled outside US in past 30 days?: No Contact w/someone who lives/traveled outside US past 30 days?: No Exposure to someone with infectious disease in past 14 days?: No Do you have a fever (greater than 100.4 F or 38 C)?: No Have you tested positive for COVID-19?: No Exposed to someone with COVID-19 in past 14 days?: No Do you have a sore throat?: No Do you have a cough?: No Do you have any weakness?: No Do you have any diarrhea?: No Are you experiencing any unusual bleeding?: No Do you have any muscle aches/pain?: No Do you have any abdominal pain?: No Are you experiencing loss of taste or smell?: No Review of Systems Review of Systems Review of systems (narrative): 14 point review of systems performed, pertinent positives and negatives as per HPI Exam Data for Last 24 hours Vital signs and Labs for Last 24 Hours: Temp Pulse Resp BP Pulse Ox O2 Del Method O2 Flow Rate 97.8 F 57 L 18 116/67 100 Nasal Cannula 4 09/13/24 11:03 09/13/24 12:30 09/13/24 12:30 09/13/24 12:30 09/13/24 12:30 09/13/24 12:30 09/13/24 12:30 Laboratory Results - last 24 hr 09/13/24 11:24: WBC 5.4, RBC 3.60 L, Hgb 10.2 L, Hct 32.7 L, MCV 90.8, MCH 28.3, MCHC 31.2 L, RDW 14.6, Plt Count 242, MPV 9.9, Neut % (Auto) 73.9, Lymph % (Auto) 9.8 L, [place]eman % (Auto) 10.9 H, Eos % (Auto) 4.6, Baso % (Auto) 0.6, Neut # (Auto) 4.0, Lymph # (Auto) 0.5 L, Hardeman # (Auto) 0.6, Eos # (Auto) 0.3, Baso # (Auto) 0.0, Sodium 141, Potassium 4.1, Chloride 100, Carbon Dioxide 29, Anion Gap 16.1 H, BUN 40 H, Creatinine 2.50 H, Estimated Creat Clear 40, Estimated GFR 25 L, Est GFR ( Amer) 31 L, Glucose 98, Calcium 9.0, Total Bilirubin 0.3, AST 28, ALT 17, Alkaline Phosphatase 62, Troponin I 0.33 H, NT-Pro-B Natriuret Pep 497 H, Total Protein 7.7, Albumin 4.1, Globulin 3.6 H, Albumin/Globulin Ratio 1.1 09/13/24 12:03: Urine Color Yellow, Urine Appearance Clear, Urine pH 6.0, Ur Specific [place] 1.025, Urine Protein 3+ A, Urine Glucose (UA) Negative, Urine Ketones Trace, Urine Blood 3+ A, Urine Nitrate Negative, Urine Bilirubin 1+ A, Urine Urobilinogen 0.2, Ur Leukocyte Esterase 2+ A, Urine RBC 10-20, Urine WBC 50-100, Ur Squamous Epith Cells None, Urine Bacteria 3+ 09/13/24 12:24: Lactate 1.2 I & O for Last 24 hours: Intake & Output 09/10/24 09/11/24 09/12/24 09/13/24 23:59 23:59 23:59 23:59 Weight 113.398 kg Constitutional Constitutional: no acute distress, obese, chronically ill appearing and cooperative *Routine HEENT Exam Head: Present normocephalic ENT: Present mucous membranes moist Comments: blind, sclerosis of corneas *Routine Neck Exam Neck: Present supple; Absent lymphadenopathy Routine Chest/Breast/Axilla Exam Chest wall: Present tenderness (left upper chest) *Routine Respiratory Exam Respiratory: Present CTA bilaterally and crackles (left upper lung field); Absent rhonchi or wheezes *Routine Cardiovascular Exam Cardiovascular: Present RRR *Routine Abdominal Exam Abdominal: Present soft and normoactive bowel sounds; Absent tenderness *Routine Rectal Exam Patient deferred: visual exam *Routine Exam Patient deferred: penile exam (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 exterminator helper catheter, urine cloudy) *Routine Extremities Exam Extremities: Present edema (trace BLE); Absent cyanosis or clubbing Comments: Left upper arm tender to palpation *Routine Skin Exam Skin: Present warm; Absent rash Comments: Chronic stasis changes bilateral lower extremities *Routine Neurological Exam Neurological: Present alert, oriented X3 and moving all extremities; Absent altered mental status Meds Home Medications and Allergies Home Medications ?Medication ?Instructions ?Recorded ?Confirmed ?Type aspirin 81 mg chewable tablet 81 mg PO DAILY 06/09/23 09/09/24 History cetirizine 10 mg tablet 10 mg PO DAILY 06/09/23 09/09/24 History ferrous sulfate 325 mg (65 mg 325 mg PO DAILY 06/09/23 09/09/24 History iron) tablet isosorbide mononitrate 30 mg 30 mg PO DAILY 06/09/23 09/09/24 History tablet,extended release 24 hr oxcarbazepine 300 mg tablet 300 mg PO BID 06/09/23 09/09/24 History acetaminophen 500 mg capsule 500 mg PO Q4HP PRN Mild Pain 06/10/23 09/09/24 History (Scale Score 1-4) multivitamin 1 tab PO DAILY 06/10/23 09/09/24 History timolol maleate 0.5 % eye drops 1 drp ophthalmic (eye) DAILY 06/10/23 09/09/24 History escitalopram oxalate 5 mg tablet 5 mg PO DAILY 12/06/23 09/09/24 History (Lexapro) guaifenesin 100 mg/5 mL oral liquid 200 mg PO Q6HP PRN Cough 12/22/23 09/10/24 History lidocaine 4 % topical patch 1 patch topical DAILY 12/22/23 09/09/24 History (Lidocaine Pain Relief) ondansetron HCl 4 mg tablet 4 mg PO Q4HP PRN Nausea 12/22/23 09/10/24 History fluticasone fur. 100 mcg-umeclid 1 inh inhalation DAILY #60 ea 01/03/24 09/09/24 Rx 62.5 mcg-vilant 25 mcg inhalat.powder (Trelegy Ellipta) albuterol sulfate 90 mcg/actuation 1 puff inhalation Q4HP PRN 02/14/24 09/10/24 History aerosol inhaler (Ventolin HFA) Shortness Of Breath loperamide 2 mg capsule 2 mg PO Q6HP PRN Diarrhea 02/14/24 09/10/24 History white petrolatum-mineral oil 94 1 applic ophthalmic (eye) HS 02/14/24 09/09/24 History %-3 % eye ointment (Systane Nighttime) finasteride 5 mg tablet 5 mg PO DAILY #90 tabs 03/05/24 09/09/24 Rx tamsulosin 0.4 mg capsule 0.4 mg PO HS 90 days #90 caps 03/05/24 09/09/24 Rx aluminum hydrox-magnesium carb 95 30 ml PO Q6HP PRN Acid Reflux 04/24/24 09/09/24 History mg-358 mg/15 mL oral suspension (Acid Gone Antacid) apixaban 2.5 mg tablet (Eliquis) 2.5 mg PO BID #60 tabs 05/24/24 09/09/24 Rx gabapentin 100 mg capsule 100 mg PO BID #60 caps 06/08/24 09/09/24 Rx fluticasone propionate 50 2 spray intranasal DAILY 06/26/24 09/09/24 History mcg/actuation nasal spray,suspension (Flonase Allergy Relief) metoprolol succinate 100 mg 100 mg PO DAILY 06/26/24 09/09/24 History tablet,extended release 24 hr hydrocodone 5 mg-acetaminophen 325 1 tab PO TID #90 tabs 08/28/24 09/09/24 Rx mg tablet ipratropium 0.5 mg-albuterol 3 mg 3 ml inhalation QIDP PRN Shortness 09/04/24 09/10/24 History (2.5 mg base)/3 mL nebulization Of Breath Or Wheezing soln sennosides 8.6 mg tablet (Senna 17.2 mg PO HS 09/04/24 09/09/24 History Laxative) atorvastatin 40 mg tablet 40 mg PO HS 30 days #30 tabs 09/12/24 Rx clopidogrel 75 mg tablet 75 mg PO DAILY 30 days #30 tabs 09/12/24 Rx furosemide 20 mg tablet 20 mg PO DAILY 30 days #30 tabs 09/12/24 Rx pantoprazole 40 mg tablet,delayed 40 mg PO HS 30 days #30 tabs 09/12/24 Rx release azithromycin 250 mg tablet 250 mg PO DAILY 5 days #5 tabs 09/13/24 Rx New Prescriptions to Start Prescriptions: azithromycin [facility] Allergies Allergy/AdvReac Type Severity Reaction Status Date / Time No Known Allergies Allergy Verified 09/04/24 15:17 Results Labs 09/13/24 11:24 09/13/24 11:24 Labs: Abnormal lab results 09/13/24 09/13/24 Range/Units 11:24 12:03 RBC 3.60 L (4.60-6.20) M/mm3 Hgb 10.2 L (14.1-18.0) g/dL Hct 32.7 L (42.0-52.0) % MCHC 31.2 L (31.8-35.4) g/dL Lymph % (Auto) 9.8 L (10-50) % Hardeman % (Auto) 10.9 H (1.7-9.3) % Lymph # (Auto) 0.5 L (0.7-4.5) K/mm3 Anion Gap 16.1 H (5-15) mEq/L BUN 40 H (9-20) mg/dl Creatinine 2.50 H (0.66-1.25) mg/dl Estimated GFR 25 L (>60) ml/min Est GFR ( Amer) 31 L (>60) ML/MIN Troponin I 0.33 H (0.00-0.034) ng/ml NT-Pro-B Natriuret Pep 497 H (0-450) pg/mL Globulin 3.6 H (1.3-3.2) g/dL Urine Protein 3+ A (Negative) Urine Blood 3+ A (Negative) Urine Bilirubin 1+ A (Negative) Ur Leukocyte Esterase 2+ A (Negative) H & H 09/13/24 Range/Units 11:24 Hgb 10.2 L (14.1-18.0) g/dL Hct 32.7 L (42.0-52.0) % All other labs normal. Assessment and Plan *Assessment and plan (1) Complicated UTI (urinary tract infection): Status: Acute Category: Medical Code(s): N39.0 - Urinary tract infection, site not specified (2) Elevated troponin: Status: Acute Category: Medical Code(s): R79.89 - Other specified abnormal findings of blood chemistry (3) COPD mixed type: Status: Acute Category: Medical Code(s): J44.9 - Chronic obstructive pulmonary disease, unspecified (4) PAF (paroxysmal atrial fibrillation): Status: Acute Category: Medical Code(s): I48.0 - Paroxysmal atrial fibrillation (5) Lung cancer: Status: Acute Category: Medical Code(s): C34.90 - Malignant neoplasm of unspecified part of unspecified bronchus or lung (6) CKD (chronic kidney disease) stage 4, GFR 15-29 ml/min: Status: Acute Category: Medical Code(s): N18.4 - Chronic kidney disease, stage 4 (severe) (7) BPH loc w urin obs/LUTS: Status: Acute Category: Medical Code(s): N40.1 - Benign prostatic hyperplasia with lower urinary tract symptoms (8) Hypertension: Status: Acute Qualifiers: Hypertension type: unspecified Qualified Code(s): I10 - Essential (primary) hypertension Category: Medical Code(s): I10 - Essential (primary) hypertension (9) Blind: Status: Acute Qualifiers: Right eye visual impairment category: right - unspecified blindness Left eye visual impairment category: left - unspecified blindness Qualified Code(s): H54.3 - Unqualified visual loss, both eyes Category: Medical Code(s): H54.7 - Unspecified visual loss (10) Chronic indwelling Jason catheter: Status: Chronic Category: Medical Code(s): Z97.8 - Presence of other specified devices Plan Mr. Toussaint is a 74-year-old male who was just discharged yesterday from our hospital. Presented with confusion this morning after his oxygen came off. Was brought to the ER for evaluation. After replacing his oxygen, returned to baseline mentation. Patient still weak but improved with GCS of 15. Workup found elevated troponin at 0.33, urinalysis was grossly abnormal. Patient has long-term indwelling catheter. Remainder of labs relatively unremarkable with normal white count of 5.4, hemoglobin 10.2. Kidney function at baseline with BUN 40, creatinine 2.5. Serial troponin trended down to 0.31 on 3-hour. Urinalysis grossly abnormal with 3+ blood, negative nitrate, 2+ leuk esterase, 50-100 white cells and 3+ bacteria. He has grown resistant pathogens in the past including Klebsiella and Proteus sensitive only to IV antibiotics. Previous cultures both sensitive to ertapenem. Last infection in December of last year. Remainder of workup relatively unremarkable. Elevated troponin expected in light of recent heart cath less than 48 hours prior with placement of stents. Patient denies any chest pain at this time. Consulted to evaluate. Feel patient's symptoms likely related to infection. Has long-term indwelling catheter. Previous cultures have grown Klebsiella and Proteus that are resistant to fluoroquinolones, cephalosporins. Should be sensitive to ertapenem. Recommend placement of midline and continuing ertapenem 1 g daily IV for 7 days. Urine cultures obtained in the ED. Will follow cultures for sensitivity and speciation. Okay to remove midline after completion of antibiotic course. Recommend [facility] to [facility] to complete antibiotics and for further care. Serial troponin level stable. No EKG changes per my review. Denying any significant chest pain at this time. Follow-up with cardiology as previously scheduled Discussed case with ER physician. Agree with plan to initiate ertapenem 1 g daily. Midline placed in the ER by nursing. Will continue to follow urine cultures after discharge to make adjustments if necessary
--- NOTE | 2024-09-13 13:25 | PC.NURSE ---
Pharmacy called to confirm they are preparing the patient's Azithromycin and Ertapenem, spoke with Cb who states they will bring it soon.
--- NOTE | 2024-09-13 13:29 | SW/DCPLANNER ---
Rachel w/ [facility] agrees w/ patient returning to [facility] w/ midline for 6 more days of IV antibiotics.
[2024-09-13] MEDS: ERTAPENEM SODIUM 1 GM in 0.9 % SODIUM CHLORIDE 50 ML IV (13:37)
[2024-09-13] MEDS: AZITHROMYCIN 500 MG in 0.9 % SODIUM CHLORIDE 250 ML 250 MG IV (13:44)
--- NOTE | 2024-09-13 14:28 | PC.NURSE ---
Patient is having a midline put in his right arm at this time
[2024-09-13 14:48] LABS: Troponin I 0.31 ng/ml (0.00-0.034)
[2024-09-13 15:16] LABS: RBC Morphology Normal; Total Cells Counted 100
--- NOTE | 2024-09-13 15:23 | PC.NURSE ---
Patient report called to Samara at [facility]. Advised patient now has Midline to YUMIKO and will be receiving Ertapenem 1gram daily x7 days as well as Azithromycin 250mg daily x5 days. Samara also notified patient's chronic Jason was changed today (09/13/24).
--- NOTE | 2024-09-14 09:44 | EXP.EVENT.NO ---
Patient discharged with diagnosis of pneumonia on azithromycin. Urine culture greater than 100,000 colony-forming units of gram-negative rods will add on Augmentin twice daily until sensitivities result which will also add double coverage for pneumonia.
--- NOTE | 2024-09-14 18:29 | PC.NURSE ---
I spoke with about the pts prelim urine culture results. He sent in augmentin to the pts pharmacy. pt arrived back to our ED today prior to contact being made with the alf.
== END 2024-09-13 16:34 | disposition home or self-care (01) ==
PROVIDERS: Emergency Provider Student in an Organized Health Care Education/Training Program
DX: N39.0 Urinary tract infection, site not specified (principal); R79.89 Other specified abnormal findings of blood chemistry; J44.9 Chronic obstructive pulmonary disease, unspecified; I48.0 Paroxysmal atrial fibrillation; C34.90 Malignant neoplasm of unspecified part of unspecified bronchus or lung; N18.4 Chronic kidney disease, stage 4 (severe); N40.1 Benign prostatic hyperplasia with lower urinary tract symptoms; H54.3 Unqualified visual loss, both eyes; Z97.8 Presence of other specified devices; I12.9 Hypertensive chronic kidney disease with stage 1 through stage 4 chronic kidney disease, or unspecified chronic kidney disease
CPT/HCPCS: 36415; 51702; 71275; 80053; 81001; 83605; 83880; 84484; 85007; 85025; 85027; 87040; 87086; 87088; 87186; 93005; 96365; 96366; 99291; J0456; J1335; J7050; Q9967

== ENCOUNTER 2024-09-14 16:33 | Emergency (ER) | payer MEDICARE, MEDICAID, SELFPAY ==
--- OUTSIDE RECORDS SUMMARY | 2006-01-18 07:04 | XMS_ITS | Continuity of Care Document ---
Author Organization [facility] o Address [address] [place] [address] Phone Care Team Providers Care Study Abroad Coordinator Name Role Phone Bruno Rogel MD Unavailable Unavailable Procedures Procedure Date Emg 1 Ext Nrv conductn motor, ea nrv w/o Fwav Nerve conductn motor ea nrv sensory Advance Directives Directive Yes / No Effective Date File Name No Information Encounters Encounter Description Practice Location Reason(s) For Visit Diagnoses Date Provider Providers Copied on Encounter [facility] [place], [address] [place] [address], [address], [place] tel:[phone] [facility] No Information 7200 6 Juan F Carr. [address] [place], [place], [id number] , [place]. tel:[phone] Family History Family Member Type Diagnosis Age At Onset No Information Payers Payer name Insurance type Covered democrat ID Authoriza tion(s) Medicare [employer] MB [id number] Social History Type Description Quantity Date Captured [...]
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
--- OUTSIDE RECORDS SUMMARY | 2024-08-27 13:00 | XMS_ITS | Encounter Summary ---
Author Organization [facility] Address [address] [place] [address] Care Team Providers Care Couture Alterations Dressmaker Name Role Phone Edi Chase MD Primary Care Provider [phone] Sam Sanchez MD Unavailable [phone] Cayetano Cannon MD Unavailable [phone] Reason for Referral * Other Medical (Routine) - Pending Review Specialty Diagnoses / Procedures Referred By José campbell Referred To Contact Neurology Diagnoses Dizziness on standing Procedures EEG Jyoti Tyler MD [address] [facility] [address] [place] [address] Phone: tel: fax: Referral ID Status Reason Start Date Expiration Date Visits Requested Visits Authorized [id number] Pending Review Specialty Services Required 08/27/2024 02/26/2026 1 1 Reason for Visit * Consultation (Routine) - Closed Specialty Diagnoses / Procedures Referred By José campbell Referred To Contact Neurology Diagnoses Syncope and collapse Malignant neoplasm of unspecified part of unspecified bronchus or lung (CMS/HCC) Miriam Baugh, REFRIGERATOR GLAZIER [address] [place] [address] Phone: tel: fax: Referral ID Status Reason Start Date Expiration Date V isits Requested Visits Authorized [id number] Closed Specialty Services Required 01/24/2024 07/25/2025 1 1 Encounter Details Date Type Department Care Team ([facility] st Contact Info) Description 08/27/2024 1:00 PM EDT Consult [place] [facility] [address], [address] [place] [address] Cuong Catheirne MD [address] [place] [address] Dizziness on standing (Primary Dx); Nonintractable episodic [...] answer 12/26/2023 [facility] attend [facility] or [facility] services? Patient unable to answer 12/26/2023 Do you belong to any clubs o r organizations such as presybeterian groups, unions, fraternal or athletic groups, or [...] Recorded Patient Health Questionnaire-2 Score 1 08/27/2024 [facility] of Occupat ional [facility] - Occupational Stress Questionnaire Answer [...] place to sleep or slept in a half-way (including now)? Patient unable to answer 12/26/2023 [...] for lung cancer who presents to the [facility] as a new patient today with/for headaches and dizzy spells. HPI Referral placed by Miriam Baugh APRN for evaluation of syncope and collapse. Pt lives in a jail and presents today with care nurse. Patient's [...] Reflexes: 2+ throughout Coordination: no ataxia with buqgse-bc-mdnq testing Proprioception: intact in upper extremities bilaterally [...] orthostatic hypotension. He should follow with his fruit cutter to obtain orthostatic vital signs and consider [...] 3 months Counseling Documentation: The patient and steward/stewardess wine was counseled regarding impressions. Education provided was verbal counseling. Additional time was spent in care coordination including medical record review. The total time of encounter was 100 minutes. . Cuong Catherine MD, PGY-2, Neurology Secure Chat/Pager: [phone] 08/27/2024 5:26 PM Dictation software disclaimer: Parts [...] After use, clean tip and replace cap. Yubpluhqafz-Yneqbibcy-Ilrzuh (Trelegy Ellipta) 100-62.5-25 MCG/ACT aerosol powder Inhale 1 puff 1 (one) time each day. gabapentin (Neurontin) 100 MG capsule Take 1 capsule by mouth 2 times a day. hydroCHLOROthiazide (HYDRODiuril) 25 MG tablet Take 1 tablet by mouth daily. HYDROcodone-acetaminophen ([place]) 5-325 MG tablet Take 1 tablet (5 [...] We discussed patient seeing eitherhis PCP or fruit cutter to test orthostatic vitals and adjust medications if needed. We also discussed that compression hose may help with his lightheadedness. Unfortunately, it is unclear why the Mr. oTussaint is one oxcarbazepine. He denies any known [...] AM EDT Appointment [facility] Neurophysiology [address] [facility] [address] [place] [address] 10/26/2024 1:20 PM EDT Office Visit [facility] [address] [place] [address] Florentin Tillman MD [address] [place] [id number] Scheduled Orders Name Type Priority Associated Diagnoses [...] documented as of this encounter Care Teams Couture Alterations Dressmaker Relationship Specialty Start Date End Date Edi Chase MD [address] [place] [address] PCP - General 03/14/20 Sam Sanchez MD [address] [place] [address] Consulting Physician Pulmonary Disease 08/11/22 Cayetano Cannon MD [address] [place] [address] [place] [address] Referring Physician 08/11/22 documented as of this encounter
[2024-09-14] VITALS (19 sets, daily range): BP systolic 150–176; BP diastolic 85–116; PULSE 58–66; RESP 12–23; TEMP 36.6–36.7; O2SAT 95–100; BMI 30.4
--- OUTSIDE RECORDS SUMMARY | 2024-09-14 16:45 | XMS_ITS | Encounter Summary ---
Author Organization Healthcare Address [address] [place] [address] Care Team Providers Care Leather Roller Name Role Phone Edi Chase MD Primary Care Provider [phone] Sam Sanchez MD Unavailable Cayetano Cannon MD Unavailable [phone] Encounter Details Date Type Department Care Team (Late st Contact Info) Description 07/08/2022 Orders Only External Location [address] [place] [address] Armani Lopez NETTLE[place], PA [address] [place] [address] Social History Tobacco Use Types [...] AM EDT Appointment PAV H Neurophysiology 800 [facility] Pav H [address] [place] [address] 10/26/2024 1:20 PM EDT Office Visit [address] [address] Florentin Tillman MD [address] [place] [address] documented as of this encounter Procedures Procedure [...] as of this encounter Care Teams Leather Roller Relationship Specialty Start Date End Date Edi Chase MD [address] [place] [address] PCP - General 03/14/20 Sam Sanchez MD [address] [place] [address] Consulting Physician Pulmonary Disease 08/11/22 Cayetano Cannon MD [address] [place] [address] Referring Physician 08/11/22 documented as of this encounter
--- OUTSIDE RECORDS SUMMARY | 2024-09-14 16:45 | XMS_ITS | Clinical Summary ---
Author Organization [facility] Address [address] [address] Phone Care Team Providers Care Modeling Analyst Name Role Phone Unavailable Primary Care Provider [...] this topic Medical Devices Implanted Type Area Etl Manager Device Identifier Shelf Expiration Date Model / Serial / Lot Stent Coronary Vision Rx 3.50mm X 18mm - [id number] Implanted:Qty: 1 on 03/16/2010 at [employer] Explanted:at [employer] (Quantity not on file) Stent-Vis ion LAD [facility] LAB:VASC DEV [id number] / / [id number] [place] [id number] [place] [address] [place]
--- OUTSIDE RECORDS SUMMARY | 2024-09-14 16:45 | XMS_ITS | Encounter Summary ---
Author Organization Healthcare Address [address] [place] [address] Care Team Providers Care Senior Research Consultant Name Role Phone Edi Chase MD Primary Care Provider [phone] Sam Sanchez MD Unavailable [phone] Cayetano Cannon MD Unavailable [phone] Encounter Details Date Type Department Care Team (Late st Contact Info) Description 12/26/2023 Lab Requisition PAV H Lab [address] [place] [address] Amado Horton MD [address] [place] [address] Encounter for general adult medical [...] How often do you attend chur or sabianist services? Patient unable to answer 12/26/2023 Do you belong to any clubs o r organizations such as temple groups, unions, fraternal or athletic groups, or [...] one occasion? Patient unable to answer 12/26/2023 [facility] - Occupational Stress Questionnaire Answer Date Recorded [...] [facility] Pav [address] [place] [address] 10/26/2024 1:20 PM EDT Office Visit [facility] [address] [place] [address] Florentin Tillman MD [address] [place] [address] documented as of this encounter Procedures Procedure Name Priority Date/Time Associated Diagnosis Comments MULTI DRUG RESISTANCE TEST Routine 12/26/2023 2:00 PM EDT Encounter for general adult medical examination without abnormal findings documented in this encounter Results * Multi Drug Resistance Test (12/26/2023 2:00 PM EDT) Culture No growth at day 1 12/27/2023 12:24 PM EDT [facility] Swab (Nares and Brenda Rectal) 12/26/2023 2:00 PM EDT 12/26/2023 3:15 PM EDT us Amado Horton MD LAB MICROBIOLOGY - GEN ERAL ORDERABLES Final Result [facility] [address] [place] [address] documented in this encounter Visit Diagnoses Diagnosis [...] as of this encounter Care Teams Senior Research Consultant Relationship Specialty Start Date End Date Edi Chase MD [address] [place] [address] PCP - General 03/14/20 Sam Sanchez MD [address] [place] [address] Consulting Physician Pulmonary Disease 08/11/22 Cayetano Cannon MD [address] [facility] [address] [place] [address] Referring Physician 08/11/22 documented as of this encounter
--- OUTSIDE RECORDS SUMMARY | 2024-09-14 16:45 | XMS_ITS | Encounter Summary ---
Author Organization Healthcare Address [address] [place] [address] Care Team Providers Care Clinical Nursing Professor Name Role Phone Edi Chase MD Primary Care Provider [phone] Sam Sanchez MD Unavailable [phone] Cayetano Cannon MD Unavailable [phone] Encounter Details Date Type Department Care Team (Late st Contact Info) Description 12/12/2023 Orders Only External Location [address] [place] [phone] Provider, External Social History Tobacco Use Types [...] EDT Appointment PAV H Neurophysiology [address] [facility] Pav H [address] [place] [address] 10/26/2024 1:20 PM EDT Office Visit [facility] [address] [place] [address] Florentin Tillman MD [address] [place] [address] documented as of this encounter Procedures Procedure [...] documented as of this encounter Care Teams Clinical Nursing Professor Relationship Specialty Start Date End Date Edi Chase MD [address] [place] [address] PCP - General 03/14/20 Sam Sanchez MD [address] [place] [address] Consulting Physician Pulmonary Disease 08/11/22 Cayetano Cannon MD [address] [place] [address] Referring Physician 08/11/22 documented as of this encounter
--- OUTSIDE RECORDS SUMMARY | 2024-09-14 16:45 | XMS_ITS | Encounter Summary ---
Author Organization [facility] Address [address] [id number] Care Team Providers Care Trustee Of Estate Name Role Phone Edi Chase MD Primary Care Provider [phone] Sam Sanchez MD Unavailable [phone] Cayetano Cannon MD Unavailable [phone] Encounter Details Date Type Department Care Team (Late st Contact Info) Description 08/22/2024 [facility]phone [facility] [address], [address] [place] [address] Cuong Catherine MD [address] [place] [id number] Social History Tobacco Use Types Packs/Day Years [...] one occasion? Patient unable to answer 12/26/2023 [facility] - Occupational Stress [...] place to sleep or slept in a skilled nursing (including now)? Patient unable to answer 12/26/2023 [...] confirm 6-16 appt. 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 Gave phone number and address. documented in this encounter Plan of Treatment Upcoming Encounters Date Type Department Care Team ([facility] st Contact Info) Description 10/16/2024 8:00 AM EDT Appointment PAV H Neurophysiology 800 [facility] Pav [address] [place] [address] 10/26/2024 1:20 PM EDT Office Visit [facility] [address] [place] [address] Florentin Tillman MD [address] [place] [address] documented as of this encounter Visit Diagnoses [...] documented as of this encounter Care Teams Trustee Of Estate Relationship Specialty Start Date End Date Edi Chase MD [address] [place] [address] PCP - General 03/14/20 Sam Sanchez MD [address] [place] [address] Consulting Physician Pulmonary Disease 08/11/22 Cayetano Cannon MD [address] [place] [address] Referring Physician 08/11/22 documented as of this encounter
--- OUTSIDE RECORDS SUMMARY | 2024-09-14 16:45 | XMS_ITS | Encounter Summary ---
Author Organization Healthcare Address [address] [place] [address] Care Team Providers Care Supervisor Tree Trimming Name Role Phone Edi Chase MD Primary Care Provider [phone] Sam Sanchez MD Unavailable [phone] Cayetano Cannon MD Unavailable [phone] Encounter Details Date Type Department Care Team (Late st Contact Info) Description 09/30/2022 Lab Requisition PAV H Lab [address] [place] [address] Lyn Santana MD [address] [place] [address] Malignant neoplasm of upper lobe, left bronchus [...] AM EDT Appointment PAV H Neurophysiology [facility] [address] [place] [address] 10/26/2024 1:20 PM EDT Office Visit [facility] [address] [place] [address] Florentin Tillman MD [address] [place] [address] documented as of this encounter Procedures Procedure Name Priority Date/Time Associated Diagnosis Comments AP MISCELLANEOUS LAB TEST (SO) Routine 09/08/2022 11:51 AM EDT Malignant neoplasm of upper lobe, left bronchus or lung (CMS/HCC) documented in this encounter Results * AP Miscellaneous Lab Test (09/08/2022 11:51 AM EDT) Test name OK Profile 10/15/2022 7:42 AM EDT [facility] Comment:[id number] Test Result see scan 10/15/2022 7:42 AM EDT [facility] See Scanned Result 10/15/2022 7:42 AM EDT [facility] Tissue 09/08/2022 11:5 1 AM EDT 09/30/2022 2:24 PM EDT us Lyn Santana MD LAB REF LAB BLOOD AND FLUID ORD Final Result [facility] documented in this encounter Visit [...] documented as of this encounter Care Teams Supervisor Tree Trimming Relationship Specialty Start Date End Date Edi Chase MD [address] [place] [address] PCP - General 03/14/20 Sam Sanchez MD [address] [place] [address] Consulting Physician Pulmonary Disease 08/11/22 Cayetano Cannon MD [address] [place], [place] [address] Referring Physician 08/11/22 documented as of this encounter
--- OUTSIDE RECORDS SUMMARY | 2024-09-14 16:45 | XMS_ITS | Encounter Summary ---
Author Organization Healthcare Address [address] [place] [address] Care Team Providers Care Financial Report Service Sales Agent Name Role Phone Edi Chase MD Primary Care Provider [phone] Sam Sanchez MD Unavailable [phone] Cayetano Cannon MD Unavailable [phone] Encounter Details Date Type Department Care Team ([facility] st Contact Info) Description 01/05/2024 Orders Only External Location [address] [place] [address] Cedric Hinton MD [address] [place] [address] Social History Tobacco Use Types Packs/Day Years [...] often do you attend chur ch or caodaism services? Patient unable to answer 12/26/2023 Do you belong to any clubs o r organizations such as islam groups, unions, fraternal or athletic groups, or [...] one occasion? Patient unable to answer 12/26/2023 [facility] [place] - Occupational Stress Questionnaire Answer Date Recorded [...] 8:00 AM EDT Appointment PAV Neurophysiology 800 [facility] Room [address] [address] 10/26/2024 1:20 PM EDT Office Visit [facility] [address] [place] [address] Florentin Tillman MD [address] [place] [address] documented as of this encounter Procedures Procedure [...] documented as of this encounter Care Teams Financial Report Service Sales Agent Relationship Specialty Start Date End Date Edi Chase MD [address] [place] [address] PCP - General 03/14/20 Sam Sanchez MD [address] [place] [address] Consulting Physician Pulmonary Disease 08/11/22 Cayetano Cannon MD [address] [facility] [address] [place] [id number] Referring Physician 08/11/22 documented as of this encounter
--- OUTSIDE RECORDS SUMMARY | 2024-09-14 16:45 | XMS_ITS | Encounter Summary ---
Author Organization Healthcare Address [address] [place] [address] Care Team Providers Care Clinical Rn Liaison Name Role Phone Edi Chase MD Primary Care Provider [phone] Sam Sanchez MD Unavailable [phone] Cayetano Cannon MD Unavailable [phone] Encounter Details Date Type Department Care Team (Late st Contact Info) Description 12/14/2023 Orders Only External Location [address] [place] [address] Cedric Hinton MD [address] [...] AM EDT Appointment PAV H Neurophysiology 800 [facility] Pav H [address] [place] [address] 10/26/2024 1:20 PM EDT Office Visit [facility] [address] [place] [address] Florentin Tillman MD [address] [place] [address] documented as of this encounter Procedures Procedure [...] as of this encounter Care Teams Clinical Rn Liaison Relationship Specialty Start Date End Date Edi Chase MD [address] [place] [address] PCP - General 03/14/20 Sam Sanchez MD [address] [place] [address] Consulting Physician Pulmonary Disease 08/11/22 Cayetano Cannon MD [address] [facility] [address] [place] [address] Referring Physician 08/11/22 documented as of this encounter
--- OUTSIDE RECORDS SUMMARY | 2024-09-14 16:45 | XMS_ITS | Encounter Summary ---
Author Organization [facility] Address [address] [place] [address] Care Team Providers Care Nurses' Aide Name Role Phone Edi Chase MD Primary Care Provider [phone] Sam Sanchez MD Unavailable [phone] Cayetano Cannon MD Unavailable [phone] Encounter Details Date Type Department Care [...] Recorded Patient Health Questionnaire-2 Score 1 08/27/2024 [facility] - Occupational Stress Questionnaire Answer [...] place to sleep or slept in a group home (including now)? Patient unable to answer [...] AM EDT Appointment PAV H Neurophysiology 800 [facility] [address] [place] [address] 10/26/2024 1:20 PM EDT Office Visit [facility] [address] [place] [address] Florentin Tillman MD [address] [place] [address] documented as of this encounter [...] documented as of this encounter Care Teams Nurses' Aide Relationship Specialty Start Date End Date Edi Chase MD [address] [place] [address] PCP - General 03/14/20 Sam Sanchez MD [address] [place] [address] Consulting Physician Pulmonary Disease 08/11/22 Cayetano Cannon MD [address] [place] [id number] Referring Physician 08/11/22 documented as of this encounter
--- OUTSIDE RECORDS SUMMARY | 2024-09-14 16:46 | XMS_ITS | Data Portability ---
Author Organization [facility] ADMIN Address [address] [place] [address] Care Team Providers Care Abnormal Psychology Teacher Name Role Phone ROZINAROSA Primary Care Provider [phone] Assessment No assessment recorded. Plan of Treatment Reminders Order Date Submit Date Provider Last Modified By Organization Details Last Modified Time Details Appointments FOLLOW UP 30 2024 10:00A M JUSTO VU MD Not available Not available Not available Lab culture, urine + sensitivi ty 2023 024 [facility] (Lab Registration) , [address] [place] [address] , [place], [address], 05/06/2023 07:44:10 urinalysi s, dipstick [address] [facility] [place], [address] [place] [address], [phone], 05/02/2023 09:19:22 Referral None recorded. Procedures bladder scan (PROC) [address] [facility] [place], [address] [place] [address], [phone], 05/02/2023 09:19:22 Surgeries None recorded. Imaging None recorded. Medication Orders cefdinir 300 mg capsule 2023 024 [place] [address] [facility] [place], [facility] [address], [place], [address], 04/29/2023 16:44:27 cefdinir 300 mg capsule [address]23 [address] [facility] [place] [address] [place] , [place], [address], 03/23/2023 12:36:21 finasteri de 5 mg tablet 2022 [address] [facility] [place] [address], [facility] [place] , [place], [address], 03/23/2023 12:36:44 Patient TargetsNo targets recorded. Patient InstructionsNo instructions recorded. Reason for Referral None Reported. Results Created Date Observation Date Name Description Value Unit Range Abnormal Flag Note LastModifiedBy Organization Detail LastModifiedTime 02/16/2002/15/2023 BASIC METAB OLIC PANEL sodium 133 mmol/ L 137-14 7 low Not Available [facility] (Pre-Op Clinic) [address] [place] [address] [place], [address], 02/15/2023 11:26:59 02/16/20 23 02/15/2023 BASIC METAB OLIC PANEL potassium 5.1 mmol/ L 3.5-5. 1 Not Available [facility] (Pre-Op Clinic) [address] [place] [address] [place], [address], 02/15/2023 11:26:59 02/16/20 23 02/15/2023 BASIC METAB OLIC PANEL chloride 93 mmol/ L 98-110 low Not Available [facility] (Pre-Op Clinic) [address] [place] [address] [place], [address], 02/15/2023 11:26:59 02/16/20 23 02/15/2023 BASIC METAB OLIC PANEL carbon dioxide 28 mmol/ L 21-30 Not Available [facility] (Pre-Op Clinic) [address] [place] [address] [place], [address], 02/15/2023 11:26:59 02/16/20 23 02/15/2023 BASIC METAB OLIC PANEL anion gap 12 mmol/ L 6-14 Not Available [facility] (Pre-Op Clinic) [address] [place] [address] [place], [address], 02/15/2023 11:26:59 02/16/20 23 02/15/2023 BASIC METAB OLIC PANEL glucose 84 mg/dL 70-115 Not Available [facility] (Pre-Op Clinic) [address] [facility] [place], [address], 02/15/2023 11:26:59 02/16/20 23 02/15/2023 BASIC METAB OLIC PANEL BUN 39 mg/dL 9-20 high Not Available [facility] (Pre-Op Clinic) [address] [place] [address] [place], [address], 02/15/2023 11:26:59 02/16/20 23 02/15/2023 BASIC METAB OLIC PANEL creatinine 2.1 mg/dL 0.5-1. 5 high Not Available [facility] (Pre-Op Clinic) [address] [place] [address] [place], [address], 02/15/2023 11:26:59 02/16/20 23 02/15/2023 BASIC METAB OLIC PANEL BUN/creatini ne ratio 19 ratio 10-20 Not Available [facility] (Pre-Op Clinic) [address] [place] [address] [place], [address], 02/15/2023 11:26:59 02/16/20 23 02/15/2023 BASIC METAB OLIC PANEL glom filtration rate TNP mL/mi n >60- GFR has only been valid ated for patie nts 18-70 years of age. Not Available [facility] (Pre-Op Clinic) [address] [place] [address] [place], [address], 02/15/2023 11:26:59 02/16/20 23 02/15/2023 BASIC METAB OLIC PANEL osmolality (calculated) 286 mosmo l/kg 275-30 1 OSMOL ALITY IS A CALCU LATIO N UTILI ZING THE SERUM /PLAS MA SODIU M, GLUCO SE AND UREA NITRO GEN (BUN) LEVEL S. FOR THE MOST ACCUR ATE RESUL T A MEASU RED SERUM OSMOL ALITY IS CLAUDIO FUNG. Not Available [facility] (Pre-Op Clinic) [address] [place] [address] [place], [address], 02/15/2023 11:26:59 02/16/20 23 02/15/2023 BASIC METAB OLIC PANEL calcium 9.4 mg/dL 8.5-10 .8 Not Available [facility] (Pre-Op Clinic) [address] [place] [address] [place], [address], 02/15/2023 11:26:59 02/16/20 23 02/15/2023 BASIC METAB OLIC PANEL note Unles s other hernandez noted testi ng perfo rmed at: [facility] [address] [place] [address] Arnaud mays MD Not Available [facility] (Pre-Op Clinic) [address] [place] [address] [place], [address], 02/15/2023 11:26:59 02/19/20 23 02/18/2023 RFS-P ATHOL OGY SPECI MEN REQUE ST [facility] Path[facility] [address] [place] [address] Phone or [phone] Fax Joseph almonte Jr., M.D., Medic al Direc tor [facility] [address] : [place] [address] Phone Numbe r: [phone] Arnaud mays M.D. PATHO LOGY REPOR T Patie nt Name: AUDRA MEJIA Date of : 1950 Age/S ex: 72/M Accou nt Numbe r: [id number] Medic al Recor d Numbe r: [id number] Order ing MD: RICCARDO HARTLEY AM Date Colle cted : 2022 Date Recei balta : 2022 Date Repor harsh : 02/23 Exam: Biops y Acces heath# : [id number] Labor atory #: [id number] Copie s To: Techn ician : Clini yobani Histo ry Benig n prost atic hyper plasi a, urine reten tion Previ ous Patie nt Histo ry and Files ROBERTO MORAN ([birth year] 9/[birth year] 9 M) i??SS N: [id number] ?? 1. S23-0 73382 , DateC ollec harsh: 06/22 A: SPLEN IC FLEXU RE BIOPS Y Diagn osis: Colon ic type mucos a with no signi fican t histo patho logic abnor malit ies ROGELIO 2. S22-0 51782 , DateC ollec harsh: 12/15 A: COLON , POLYP , 12CM Diagn osis: Hyper plast ic polyp . B: COLON , POLYP , 7CM Diagn osis: Hyper plast ic polyp . C: COLON , POLYP , 5CM Diagn osis: Hyper plast ic polyp . 3. S21-0 58446 , DateC ollec harsh: 09/29 A: RIGHT [...] nal Lymph Nodes (pN): pN1a 4. S21-0 61468 , DateC ollec harsh: 09/25 A: CECUM [...] or high- grade dyspl albino 5. S21-0 92663 , DateC ollec harsh: 07/10 A: ANTRU M, BIOPS Y Diagn osis: React leonor gastr opath y and mild chron ic gastr itis with intes tinal Legal ly authe ntica harsh by ARNAUD RENE MD 02-23 15:53 :00 metap lasia Negat leonor for dyspl albino FLP/p ah 6. S19-0 91393 , Date ollec harsh: 09/07 A: SKIN, [...] red by Arnaud mays Jr., MCindyD. at [facility], [address] [place] [address] . Final Diagn osis BENIG N PROST ATIC HYPER PLASI A EJT/S M Stain *Recu t-[place] ;[place] [address] Legal ly authe ntica harsh by ARNAUD RENE MD 02-23 15:53 :00 Not Available [facility] (Pre[facility]Op [facility]) [address] [place] [address] [place], [address], 02/23/2023 16:17:04 02/20/20 23 02/19/2023 CBC W/ AUTO DIFF WBC 7.57 K/uL 4.5-11 .5 Not Available [facility] (Pre-Op Clinic) [address] [place] [address] [place], [address], 02/19/2023 06:08:08 02/20/2002/19/2023 CBC W/ AUTO DIFF RBC 3.38 M/uL 4.0-5. 4 low Not Available [facility] (Pre-Op Clinic) [address] [place] [address] [place], [address], 02/19/2023 06:08:08 02/20/2002/19/2023 CBC W/ AUTO DIFF HGB 9.5 g/dL 14.0-1 8.0 low Not Available [facility] (Pre-Op [facility]) [address] [place] [address] [place], [address], 02/19/2023 06:08:08 02/20/20 23 02/19/2023 CBC W/ AUTO DIFF HCT 28.8 % 40-54 low Not Available [facility] (Pre-Op Clinic) [address] [place] [address] [place], [address], 02/19/2023 06:08:08 02/20/2005 0302/19/2023 CBC W/ AUTO DIFF MCV 85.2 fL 80.0-1 00.0 Not Available [facility] (Pre[facility]Op [facility]) [address] [place] [address] [place], [address], 02/19/2023 06:08:08 02/20/20 23 02/19/2023 CBC W/ AUTO DIFF MCH 28.1 pg 26.0-3 2.0 Not Available [facility] (Pre[facility]Op [facility]) [address] [place] [address] [place], [address], 02/19/2023 06:08:08 02/20/2002/19/2023 CBC W/ AUTO DIFF MCHC 33.0 g/dL 32.0-3 6.0 Not Available [facility] (Pre-Op Clinic) [address] [place] [address] [place], [address], 02/19/2023 06:08:08 02/20/2002/19/2023 CBC W/ AUTO DIFF RDW 14.7 % 11.5-1 4.5 high Not Available [facility] (Pre-Op Clinic) [address] [place] [address] [place], [address], 02/19/2023 06:08:08 02/20/2002/19/2023 CBC W/ AUTO DIFF platelet count 244 K/uL 142-42 4 Not Available [facility] (Pre-Op Clinic) [address] [place] [address] [place], [address], 02/19/2023 06:08:08 02/20/2002/19/2023 CBC W/ AUTO DIFF MPV 9.1 fL 6.8-10 .2 Not Available [facility] (Pre-Op Clinic) [address] [place] [address] [place], [address], 02/19/2023 06:08:08 02/20/2002/19/2023 CBC W/ AUTO DIFF neutrophil % 81.2 % 50-70 high Not Available [facility] (Pre-Op Clinic) [address] [place] [address] [place], [address], 02/19/2023 06:08:08 02/20/20 23 02/19/2023 CBC W/ AUTO DIFF lymphocyte % 5.3 % 18.0-4 2.0 low Not Available [facility] (Pre-Op [facility]) [address] [place] [address] [place], [address], 02/19/2023 06:08:08 02/20/2002/19/2023 CBC W/ AUTO DIFF monocyte % 10.2 % 2.0-11 .0 Not Available [facility] (Pre[facility]Op [facility]) [address] [place] [address] [place], [address], 02/19/2023 06:08:08 02/20/2002/19/2023 CBC W/ AUTO DIFF eosinophil % 2.6 % 1.0-3. 0 Not Available [facility] (Pre-Op [facility]) [address] [place] [address] [place], [address], 02/19/2023 06:08:08 02/20/2002/19/2023 CBC W/ AUTO DIFF basophil % 0.4 % 0.0-2. 0 Not Available [facility] (Pre-Op [facility]) [address] [place] [address] [place], [address], 02/19/2023 06:08:08 02/20/2002/19/2023 CBC W/ AUTO DIFF immature granulocytes % 0.3 % 0.0-0. 8 Not Available [facility] (Pre-Op Clinic) [address] [place] [address] [place], [address], 02/19/2023 06:08:08 02/20/2002/19/2023 CBC W/ AUTO DIFF nucleated red blood cells % 0.0 % Not Available [facility] (Pre-Op Clinic) [address] [place] [address] [place], [address], 02/19/2023 06:08:08 12/09/20 23 02/19/2023 CBC W/ AUTO DIFF neutrophil # 6.15 K/uL Not Available [facility] (Pre-Op [facility]) [address] [place] [address] [place], [address], 02/19/2023 06:08:08 02/20/20 23 02/19/2023 CBC W/ AUTO DIFF lymphocyte # 0.40 K/uL Not Available [facility] (Pre[facility]Op [facility]) [address] [place] [address] [place], [address], 02/19/2023 06:08:08 02/20/20 23 02/19/2023 CBC W/ AUTO DIFF monocyte # 0.77 K/uL Not Available [facility] (Pre-Op Clinic) [address] [place] [address] [place], [address], 02/19/2023 06:08:08 02/20/20 23 02/19/2023 CBC W/ AUTO DIFF eosinophil # 0.20 K/uL Not Available [facility] (Pre-Op Clinic) [address] [place] [address] [place], [address], 02/19/2023 06:08:08 02/20/20 23 02/19/2023 CBC W/ AUTO DIFF basophil # 0.03 K/uL Not Available [facility] (Pre-Op Clinic) [address] [place] [address] [place], [address], 02/19/2023 06:08:08 02/20/20 23 02/19/2023 CBC W/ AUTO DIFF immature gramulocytes # 0.02 K/uL Not Available [facility] (Pre-Op Clinic) [address] [place] [address] [place], [address], 02/19/2023 06:08:08 02/20/20 23 02/19/2023 CBC W/ AUTO DIFF nucleated red blood cells # 0.00 k/uL Not Available [facility] (Pre-Op Clinic) [address] [place] [address] [place], [address], 02/19/2023 06:08:08 02/20/20 23 02/19/2023 CBC W/ AUTO DIFF manual differential NO Not Available [facility] (Pre[facility]Op [facility]) [address] [place] [address] [place], [address], 02/19/2023 06:08:08 02/20/20 23 02/19/2023 CBC W/ AUTO DIFF note Unles s other hernandez noted testi ng perfo rmed at: [facility] [address] [place] [address] Arnaud mays MD Not Available [facility] (Pre[facility]Op [facility]) [address] [place] [address] [place], [address], 02/19/2023 06:08:08 02/20/20 23 02/19/2023 BASIC METAB OLIC PANEL sodium 139 mmol/ L 137-14 7 Not Available [facility] (Pre-Op Clinic) [address] [place] [address] [place], [address], 02/19/2023 06:44:15 02/20/20 23 02/19/2023 BASIC METAB OLIC PANEL potassium 4.3 mmol/ L 3.5-5. 1 Not Available [facility] (Pre-Op Clinic) [address] [place] [address] [place], [address], 02/19/2023 06:44:15 02/20/20 23 02/19/2023 BASIC METAB OLIC PANEL chloride 108 mmol/ L 98-110 Not Available [facility] (Pre-Op Clinic) [address] [place] [address] [place], [address], 02/19/2023 06:44:15 02/20/20 23 02/19/2023 BASIC METAB OLIC PANEL carbon dioxide 26 mmol/ L 21-30 Not Available [facility] (Pre-Op Clinic) [address] [place] [address] [place], [address], 02/19/2023 06:44:15 02/20/20 23 02/19/2023 BASIC METAB OLIC PANEL anion gap 5 mmol/ L 6-14 low Not Available [facility] (Pre[facility]Op [facility]) [address] [place] [address] [place], [address], 02/19/2023 06:44:15 02/20/20 23 02/19/2023 BASIC METAB OLIC PANEL glucose 95 mg/dL 70-115 Not Available [facility] (Pre[facility]Op [facility]) [address] [place] [address] [place], [address], 02/19/2023 06:44:15 02/20/20 23 02/19/2023 BASIC METAB OLIC PANEL BUN 32 mg/dL 9-20 high Not Available [facility] (Pre[facility]Op [facility]) [address] [place] [address] [place], [address], 02/19/2023 06:44:15 02/20/20 23 02/19/2023 BASIC METAB OLIC PANEL creatinine 1.7 mg/dL 0.5-1. 5 high Not Available [facility] (Pre[facility]Op [facility]) [address] [place] [address] [place], [address], 02/19/2023 06:44:15 02/20/20 23 02/19/2023 BASIC METAB OLIC PANEL BUN/creatini ne ratio 19 ratio 10-20 Not Available [facility] (Pre[facility]Op [facility]) [address] [place] [address] [place], [address], 02/19/2023 06:44:15 02/20/20 23 02/19/2023 BASIC METAB OLIC PANEL glom filtration rate TNP mL/mi n >60- GFR has only been valid ated for patie nts 18-70 years of age. Not Available [facility] (Pre[facility]Op [facility]) [address] [place] [address] [place], [address], 02/19/2023 06:44:15 02/20/20 23 02/19/2023 BASIC METAB OLIC PANEL osmolality (calculated) 296 mosmo l/kg 275-30 1 OSMOL ALITY IS A CALCU LATIO N UTILI ZING THE SERUM /PLAS MA SODIU M, GLUCO SE AND UREA NITRO GEN (BUN) LEVEL S. FOR THE MOST ACCUR ATE RESUL T A MEASU RED SERUM OSMOL ALITY IS CLAUDIO FUNG. Not Available [facility] (Pre[facility]Op [facility]) [address] [place] [address] [place], [address], 02/19/2023 06:44:15 02/20/20 23 02/19/2023 BASIC METAB OLIC PANEL calcium 8.5 mg/dL 8.5-10 .8 Not Available [facility] (Pre[facility]Op [facility]) [address] [place] [address] [place], [address], 02/19/2023 06:44:15 02/20/20 23 02/19/2023 BASIC METAB OLIC PANEL note Unles s other hernandez noted testi ng perfo rmed at: [facility] [address] [place] [address] Arnaud mays MD Not Available [facility] (Pre[facility]Op [facility]) [address] [place] [address] [place], [address], 02/19/2023 06:44:15 04/29/19 24 04/29/2023 CULTU RE URINE results [facility] 04-30 600 >100, 000 COL/M L Gram Negat leonor Rods Not Available [facility] (Lab Registration) [address] [place] [address] [place], [address], 04/30/2023 06:02:04 04/29/19 24 04/29/2023 CULTU RE URINE note Unles s other hernandez noted testi ng perfo rmed at: [facility] [address] [facility] [place] [address] [phone] Arnaud mays MD CLIA: [id number] Not Available [facility] (Lab Registration) [address] [place] [address] [place], [address], 04/30/2023 06:02:04 04/29/19 24 04/29/2023 CULTU RE URINE culccur ===== ===== ===== ===== ===== ===== ===== ===== ===== ===== ===== ===== ===== ===== ===== ===== ===== ===== ===== ===== ===== ===== ===== ===== Speci men NO.: [id number] Exam Statu s: Final Proce dure: [...] L Gram Negat leonor Rods Not Available [facility] (Lab Registration) [address] , [place], [address], 05/01/2023 07:47:10 04/29/19 24 04/29/2023 CULTU RE URINE note Unles s other hernandez noted testi ng perfo rmed at: [facility] [address] [place] [address] [phone] Arnaud mays MD CLIA: [id number] Not Available [facility] (Lab Registration) [address] , [place], [address], 05/01/2023 07:47:10 04/29/19 24 04/29/2023 bladd er scan (PROC ) Calculated Residual Urine: 699 ML Not Available [address], [address], 04/29/2023 11:45:28 04/29/19 24 04/29/2023 urina lysis , dipst ick Leukocytes (reference range) large Not Available [address], [address], 04/29/2023 11:44:38 04/29/19 24 04/29/2023 urina lysis , dipst ick Nitrite (reference range:) positi ve Not Available [address], [address], 04/29/2023 11:44:38 04/29/19 24 04/29/2023 urina lysis , dipst ick Urobilinogen (reference range) 1 Not Available [address], [address], 04/29/2023 11:44:38 04/29/19 24 04/29/2023 urina lysis , dipst ick Protein (reference range) 300 Not Available [address], [address], 04/29/2023 11:44:38 04/29/19 24 04/29/2023 urina lysis , dipst ick pH (reference range 5-8.5) 6.5 Not Available [address], [address], 04/29/2023 11:44:38 04/29/19 24 04/29/2023 urina lysis , dipst ick Blood (reference range:) large Not Available [address], [address], 04/29/2023 11:44:38 04/29/19 24 04/29/2023 urina lysis , dipst ick Specific [place] (reference range) 1.020 Not Available [address], [address], 04/29/2023 11:44:38 04/29/19 24 04/29/2023 urina lysis , dipst ick Ketone (reference range) trace Not Available [address], [address], 04/29/2023 11:44:38 04/29/19 24 04/29/2023 urina lysis , dipst ick Bilirubin (reference range) small Not Available [address], [address], 04/29/2023 11:44:38 04/29/19 24 04/29/2023 urina lysis , dipst ick Glucose (reference range) negati ve Not Available [address], [address], 04/29/2023 11:44:38 02/22/20 23 02/21/2023 cardi ac clear ance* No observ ation record ed. [email or web address] [address] [place] [address] [place], [address], 02/24/2023 10:25:26 03/25/19 24 03/25/2023 CT, chest , w/o contr ast [facility] [address] [place] [place] [address] Phone: Fax: Name: ROBERTO TOUSSAINT Exam Date: 024 : 949 Age 72 Gender : M Access ion: [id number] Physic amalia: JUSTO VU Facili ty: [facility] Facili ty HSV: Outpat ient Exam: [...] you for [facility]err [facility] Legall y authen ticate d by POPE TIFFANY Collins 03-25 10:48: 47 CC'ed Logic: Orderi ng Provid er: MIRELLA KEMP Attend ing Provid er: MIRELLA KEMP Referr ing Provid er: MIRELLA KEMP Admitt ing Provid er: MIRELLA KEMP [email or web address] [facility] [address] [place], [address], 04/05/2023 08:15:45 01/16/20 24 11/11/2023 PET-C T, skull base to mid-t high scan No observ ation record ed. [facility] ([facility]) [address] [facility], [place], [address], 01/20/2024 11:35:25 06/02/19 25 06/01/2024 CT, chest , w/o contr ast No observ ation record ed. [address], [place], [address], 06/04/2024 15:30:09 Result Notes Documentation Provider Name and Address Organization Details Recorded Time Ct, Chest, W/o Contrast : [facility] [address] [place] [address] Name: ROBERTO TOUSSAINT Exam Date: 03/25/2023 : 1950 Age 72 Gender: M Physician: JUSTO VU Facility: [facility] Facility HSV: Outpatient Exam: CT CHEST [...] Thank you for referring ROBERTO TOUSSAINT to [facility]. 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 Anabella vyas [place] - [place] [place] 4 10:52:11 Chronic renal failure 62290077 Active 2022 SHAREE Lopez - [place] - [place] 4 10:52:11 Heart failure 32962192 Active 2022 Tefanie Saulo null, [place] 4 10:52:11 Diastolic dysfunction 1245954 Active 2022 Anabella Vernon [place] 4 10:52:11 Anemia 630915626 Active 2022 Anabella Vernon [place] 4 10:52:11 Acute stroke 2025275494889 04 Active 2022 Anabella [place] 4 10:52:11 Disease of liver 296734931 Active 2022 Anabella Vernon null[place] 4 10:52:11 Hypercholes terolemia 53120898 Active 2022 Anabella vyas[place] 4 10:52:11 Gastroesoph ageal reflux disease 769529271 Active 2022 Anabella Vernon null[place] 4 10:52:11 Kidney stone 95756159 Active 2022 Anabella Vernon [place] 4 10:52:11 Glaucoma 49205460 Active 2022 Anabella vyas[place] 4 10:52:11 Arthritis 9857461 Active 2022 Anabella Vernon [place] 4 10:52:11 Hypertensiv e disorder 00045737 Active 2022 Anabella Vernon [place] 4 10:52:11 Benign prostatic hyperplasia with outflow obstruction 073367510 Active Anabella Vernon [place] 4 10:52:11 Problem Notes Documentation Provider Name and Address Organization Details Recorded Time 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 Danielle Ba lilliamSHAREE [facility] [place] 04/04/2024 07:14:40 Procedures Surgical History Date Name Laterality Status Provider Name and Address Organization Details Recorded Time 06/10/19 23 Cystoscopy-Male completed Venkatesh Hartley Jr, MD [address] [place] [address], [address], [place], [address], SHAREE [facility] [place] 06/09/2022 16:55:32 ureteroscopy completed Anabella TOLLIVER [facility] [place] 06/09/2022 13:23:50 Knee arthroscopy/surg frederick completed Anabella Vernon SHAREE [facility] [place] 06/09/2022 13:23:58 Imaging Results None recorded. Procedure Notes None recorded. Medical Equipment None Reported. Allergies Allergen ID Allergen Name Allergen Category Reaction Reaction Severity Criticality Documentation Date Start Date Code Code System Note Provider Name and Address Organization Details Recorded Time 044971 No known allergy (situatio n) Not available Not available Not available Not available 03/23/2023 27246 6003 SNOMED Anabella vyas SHAREE [facility] [place] 10:51:22 No known drug allergies Medications Name [...] Base) MCG/ACT d ose:0.0 route:IN HALED starla quency:VT N active Not Available Not Available No [...] [degF] Anabella TOLLIVER - [facility] - [place] [facility] & [place] 03/23/2023 10:51:14 Date Recorded Body temperature Body height Body mass index (BMI) Body weight Provider Name and Address Organization Details Last Updated DateTime 04/29/2023 97.9 [degF] 182.88 cm 33.2 kg/m2 679208.13 g Anabella HUNTER [facility] & [place] 04/29/2023 10:18:52 Date Recorded Body height Body mass index (BMI) Body weight Body temperature Provider Name and Address Organization Details Last Updated DateTime 05/27/2023 182.88 cm 28.5 kg/m2 15936.4 g 97.3 [degF] Salud Dixon [place] - LPNT [facility] [place] 05/27/2023 11:23:11 Date Recorded Body height Body mass index (BMI) Body weight Body temperature Provider Name and Address Organization Details Last Updated DateTime 11/23/2023 182.88 cm 28.5 kg/m2 45749.4 g 97.7 [degF] Anabella Vernon [place] - [facility]NT [facility] [place] 11/23/2023 09:14:40 Date Recorded Body temperature Provider Name a nd Address Organization Details Last Updated DateTime 01/28/2023 97.9 [degF] Anabella Vernon [place] - [facility] - [place] [facility] [place] 01/28/2023 13:10:38 Social History None recorded. Functional Status Question Answer Note LastModified by Organization D etails LastModified Time What is your level of alcohol consumption? None [email or web address] Information not available 06/02/2022 Mental Status None recorded. Family History Relationship Description Onset Age of this Age Resolved Age Notes LastModified by Organization Details LastModified Time Mother Family history unknown dec [email or web address] Not available 2022 13:23:21 Sister Family history unknown x3 dec [email or web address] Not available 2022 13:23:21 Brother Family history unknown [email or web address] Not available 2022 13:23:21 Father Malignant neoplastic disease dec [email or web address] Not available 2022 13:23:30 Medical History No medical history recorded. Past Encounters Encounter ID Performer Location Encounter Start Date Encounter Closed Date Diagnosis/Indication Diagnosis SNOMED-CT Code Diagnosis ICD10 Code Diagnosis Note [id number] Venkatesh Hartley Jr, MD [facility] [address] [address] 06/09/2022 13:36:19 06/09/2022 15:11:25 Retention of urine 468002655 R33.9 71-year-ol d male with multiple medical [...] cardiologi st who is Dr. Dodge in [place]. If he is deemed a reasonable candidate we will set him up for TURP. [id number] Venkatesh Hartley Jr, MD [facility] [address] [address] 01/28/2023 12:36:30 01/28/2023 13:36:01 Incomplete emptying of urinary bladder due to benign prostatic hypertrophy [id number] 18821 N40.1 patient with urinary retention. His retention has been managed with a Jason catheter now for several months. States it is being changed on a monthly basis. Cardiac clearance was recently given per Dr. Nain bower as office at [facility]. Patient is not a great surgical candidate. He is on Xarelto. His cardiologi st has deemed him a reasonable surgical candidate. We will get a preop clearance from anesthesio logist at [facility]. We will stop his blood thinners prior to his TURP. We will start him on finasterid e today to help decrease any possible prostate bleeding. [id number] Venkatesh Hartley Jr, MD [facility] [address] [address] 03/23/2023 10:46:37 03/23/2023 11:42:10 Incomplete emptying of urinary bladder due to benign prostatic hypertrophy [id number] 46419 N40.1 patient with history of urinary retention secondary to prostate enlargemen t. He underwent a TURP at [facility] on February 18. He returns [...] for the prolonged catheteriz ations and removal. [id number] Venkatesh Hartley Jr, MD [facility] [address] [address] 04/29/2023 10:18:10 04/29/2023 11:38:41 Recurrent urinary tract infection [id number] N39.0 Patient with urinary symptoms of frequency, urgency and hematuria. His urine appears infected. We will culture the urine and patient placed on a course of cefdinir today. He will follow up in 1 month. Incomplete emptying of urinary bladder due to benign prostatic hypertrophy [id number] 10248 N40.1 patient with history of urinary retention secondary to prostate enlargemen t. He underwent a TURP at [facility] on February 18. patient with complaints of frequency, urgency and gross hematuria. He has evidence of a urinary tract infection which may be contributi ng to his symptoms. We also discussed that hematuria, urgency and frequency could be normal sequela of his TURP. Patient also takes Xarelto for other medical issues. [id number] Venkatesh Hartley Jr, MD [facility] [address] [address] 05/27/2023 11:21:35 05/27/2023 12:30:45 Incomplete emptying of urinary bladder due to benign prostatic hypertrophy [id number] 64422 N40.1 patient with history of urinary retention secondary to prostate enlargemen t. He underwent a TURP at [facility] on February 18. He states he is voiding better and he is now ambulatory but PVR still elevated at 671 cc. Recurrent urinary tract infection [id number] N39.0 Pt with uti's due to incomplete emptying. To increase fluids and observe timed voiding. [id number] Venkatesh Hartley Jr, MD [facility] [address] [address] 11/23/2023 09:08:44 11/23/2023 09:50:37 Incomplete emptying of urinary bladder due to benign prostatic hypertrophy [id number] 26753 N40.1 patient with history of urinary retention secondary to prostate enlargemen t. He underwent a TURP at [facility] on February 18. He states he is voiding better and he is now ambulatory but PVR still elevated due to bladder decompensa tion. Recurrent urinary tract infection [id number] N39.0 Pt with uti's due to incomplete [...] Hawkins Member ID Guarantor Name 07/06/2024 2 MEDICAID-[facility] [employer] CHOICES - FFS/TRADITIO NAL Roberto Toussaint [id number] Roberto Toussaint 07/06/2024 1 MEDICARE-IN (MEDICARE) Roberto Toussaint [id number] Roberto Toussaint 11/23/2023 2 MEDICAID-[facility] HEALTH CHOICES - FFS/TRADITIO NAL Roberto Toussaint [id number] Roberto Toussaint Notes Date Note Type Note [...] recommended. 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 He continues on Xarelto. He is legally blind. [place] Venkatesh Hartley Jr, MD [address] [place] [address], [address], [place], [address], [facility] - [place] & [place] 01/28/2023 14:59:58 03/23/2023 text/html patient is a 72-year-old black male with history of urinary retention. 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 There was a large median lobe that was resected. Patient's prostate was very large and resected in stages. Pathology from the prostatic chips showed no evidence of cancer. Patient returns today for a voiding trial but should have been scheduled for a voiding trial 2-3 weeks ago. He is had the same catheter in since discharge. Venkatesh Hartley Jr, MD [address] [facility], [address], [place], [address], [facility] 03/23/2023 12:37:30 04/29/2023 text/html Patient is a 72-year-old black male with a history of urinary retention. He underwent a TURP on February 18, 2023 at [facility]. Patient had a very large median [...] 699 cc. Venkatesh Hartley Jr, MD [address] [facility], [address], [place], [address], [facility] & [place] 04/29/2023 16:45:15 05/27/2023 text/html Pt with h/o [...] the Cefdinir. Venkatesh Hartley Jr, MD [address] [facility], [address], [place], [address], [facility] & [place] 08/21/2023 23:04:36 11/23/2023 text/html Patient is a [...] as a result. Venkatesh Hartley Jr, MD [address] [place] [address], [address], [place], [address], [facility] - [place] & [place] 11/23/2023 12:51:08
--- OUTSIDE RECORDS SUMMARY | 2024-09-14 16:46 | XMS_ITS | Clinical Summary ---
Author Organization Healthcare Address [address] [place] [address] Care Team Providers [employer] Sales Consultant Name Role Phone Edi Chase MD Primary Care Provider [phone] Sam Sanchez MD Unavailable [phone] Cayetano Cannon MD Unavailable [phone] Allergies No known active allergies Medications [...] (one) time each day. Active HYDROcodone-rachel taminophen ([place]) 5-325 MG tablet Take 1 tablet (5 [...] Team Description 08/27/2024 1:00 PM EDT Consult [facility] [address], [address] [place] [address] Cuong Catherine MD Dizziness on standing (Primary Dx); Nonintractable episodic headache, unspecified headache type; Cerebrovascular accident (CVA), unspecified mechanism (CMS/HCC) 08/27/2024 Travel 08/22/2024 Telephone [facility] [address], [address] [place] [address] Cuong Catherine MD from Last [...] answer 12/26/2023 How often do you attend [facility] or catholic services? Patient unable to answer 12/26/2023 Do you belong to any clubs o r organizations such as cheondoism groups, unions, fraternal or athletic groups, or [...] Recorded Patient Health Questionnaire-2 Score 1 08/27/2024 [facility] - Occupational Stress Questionnaire Answer Date [...] Recorded In the past 12 months has [employer], gas, oil, or water company threatened to [...] AM EDT Appointment [facility] Neurophysiology [address] [facility] Room [address] [address] 10/26/2024 1:20 PM EDT Office Visit [facility] [address] [place] [address] Florentin Tillman MD [address] [place] [address] Health Maintenance Due Date Last Done Comments [facility]-Medicare Annual Wellness (AWV) 1950 [facility]-/Child/Adol SDOH Screenings 1950 [facility]-DTaP,Tdap,and Td Vaccines (1 - Tdap) 08/31/1967 [facility]-Pneumococcal Vaccine: 50+ Years (1 of 2 - PCV) 08/31/1967 [facility]-Zoster Vaccines (1 of 2) 08/31/1967 [id number] Vaccine (3 - Pfizer risk series) 05/10/2020 [...] Antibody Negative Negative 12/23/2023 6:[address] [facility] Blood Venous blood specimen / Unknown Venipuncture / Unknown 12/23/2023 5:39 PM EDT 12/23/2023 6:04 PM EDT Med Lyn MD LAB BLOOD ORDERABLES Final Result Performing Organization Address City/[facility]/ZIP Co de Phone Number [facility] [address] [place] [address] * (ABNORMAL) Hemoglobin A1c (12/23/2023 5:39 PM EDT) Hemoglobin A1c 6.3(H) <5.7 % 12/24/2023 12:[address] [facility] Blood Venous blood specimen / Unknown Venipuncture / Unknown 12/23/2023 5:39 PM EDT 12/23/2023 5:[address] [facility] - 12/24/2023 12:22 AM EDT HA1C Interpretive Data: Diagnosis of Diabetes: Diabetic > or = 6.5% Pre-diabetic 5.7 to 6.4% Non-diabetic < or = 5.6% Glycemic Targets for Type I and Type II Diabetics: Non- Adults <7.0% Adults <6.0% Children and Adolescents <7.5% Source: [place] [employer]. Standards of medical care in diabetes,2017. Diabetes Care.2017:40 (suppl 1):S1-S135. HbA1c assay performed by an ion-exchange chromatography method that is certified traceable to the DCCT. us Socorro Mauro APRN LAB BLOOD ORDERABLES Final R esult 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 Yes Care Teams [employer] Consultant Relationship Specialty Start Date End Date Edi Chase MD [address] [place] [address] PCP - General 03/14/20 Sam Sanchez MD [address] [place] [address] Consulting Physician Pulmonary Disease 08/11/22 Cayetano Cannon MD [address] [place] [address] Referring Physician 08/11/22
--- NOTE | 2024-09-14 16:48 | XR_ITS ---
PROCEDURE INFORMATION: Exam: XR Chest Exam date and time: 09/14/2024 4:56 PM Age: 74 years old Clinical indication: Other: Pneumonia/hypoxia TECHNIQUE: Imaging protocol: Radiologic exam of the chest. Views: 1 view. COMPARISON: CT ANGIO CHEST PE PROTOCOL 09/13/2024 12:18 PM FINDINGS: Lungs: Poorly defined left upper lung zone opacity. Pleural spaces: Unremarkable. No pleural effusion. No pneumothorax. Heart/Mediastinum: Unremarkable. No cardiomegaly. Bones/joints: Unremarkable. IMPRESSION: Left upper lung zone infiltration.
--- NOTE | 2024-09-14 16:50 | HMH.EDGENADL ---
Discharge Plan Disposition Patient Disposition: Home, Self-Care Prescriptions Prescriptions: No Action Eliquis 2.5 mg tablet 2.5 mg PO BID Qty: 60 2RF Trelegy Ellipta 100-62.5-25 mcg blister with device 1 inh inhalation DAILY Qty: 60 2RF loperamide 2 mg capsule 2 mg PO Q6HP PRN (Reason: Diarrhea) Systane Nighttime 94-3 % ointment 1 applic ophthalmic (eye) HS finasteride 5 mg tablet 5 mg PO DAILY Qty: 90 3RF tamsulosin 0.4 mg capsule 0.4 mg PO HS 90 Days Qty: 90 1RF metoprolol succinate 100 mg tablet extended release 24 hr 100 mg PO DAILY fluticasone propionate [Flonase Allergy Relief] 50 mcg/actuation spray,suspension 2 spray intranasal DAILY Rx Instructions: administer into each nostril escitalopram oxalate [Lexapro] 5 mg tablet 5 mg PO DAILY sennosides [Senna Laxative] 8.6 mg tablet 17.2 mg PO HS ipratropium-albuterol 0.5 mg-3 mg(2.5 mg base)/3 mL solution for nebulization 3 ml inhalation QIDP PRN (Reason: Shortness Of Breath Or Wheezing) lidocaine [Lidocaine Pain Relief] 4 % adhesive patch,medicated 1 patch TOPICAL DAILY ondansetron HCl 4 mg Tablet 4 mg PO Q4HP PRN (Reason: Nausea) guaifenesin 100 mg/5 mL Liquid 200 mg PO Q6HP PRN (Reason: Cough) albuterol sulfate [Ventolin HFA] 90 mcg/actuation HFA aerosol inhaler 1 puff INHALATION Q4HP PRN (Reason: Shortness Of Breath) Acid Gone Antacid 95-358 mg/15 mL suspension 30 ml PO Q6HP PRN (Reason: Acid Reflux) gabapentin 100 mg capsule 100 mg PO BID Qty: 60 5RF hydrocodone-acetaminophen 5-325 mg tablet 1 tab PO TID Qty: 90 0RF cetirizine 10 mg tablet 10 mg PO DAILY isosorbide mononitrate 30 mg tablet extended release 24 hr 30 mg PO DAILY oxcarbazepine 300 mg tablet 300 mg PO BID ferrous sulfate 325 mg (65 mg iron) tablet 325 mg PO DAILY aspirin 81 mg tablet,chewable 81 mg PO DAILY multivitamin Tablet 1 tab PO DAILY timolol maleate 0.5 % drops 1 drp ophthalmic (eye) DAILY acetaminophen 500 mg Capsule 500 mg PO Q4HP PRN (Reason: Mild Pain (Scale Score 1-4)) atorvastatin 40 mg Tablet 40 mg PO HS 30 Days Qty: 30 0RF clopidogrel 75 mg Tablet 75 mg PO DAILY 30 Days Qty: 30 0RF pantoprazole 40 mg Tablet,Delayed Release (Dr/Ec) 40 mg PO HS 30 Days Qty: 30 0RF furosemide 20 mg Tablet 20 mg PO DAILY 30 Days Qty: 30 0RF azithromycin 250 mg tablet 250 mg PO DAILY 5 Days Qty: 5 0RF amoxicillin-pot clavulanate 875-125 mg tablet 1 tab PO BID Qty: 14 0RF Referrals Follow up/Referrals: Provider,Referral, MD [Primary Care Provider, Medical] - See instructions Activity Restrictions/Add. Instructions Additional Instructions/Restrictions: Continue the antibiotics prescribed to you. If you develop any new or worsening symptoms, or if you become concerned for your health for any reason, return to the emergency department for evaluation Clinical Impressions Clinical Impression: Pneumonia, Hypoxia Print Language Print Language: Nauruan Discharge ED Provider: [facility] HPI General Chief complaint: Recheck/Abnormal Lab/Rx Stated complaint: oxygen saturation dropped during PT Time Seen by Provider: 09/14/24 16:33 Mode of Arrival: EMS Source of Information: Patient and EMS Limitations: No Limitations History of Present Illness HPI narrative: Edi Toussaint is a 74y male with a history of lung cancer s/p surgery, COPD on 3 L nasal cannula at baseline, recent cardiac cath, prostate cancer with indwelling Jason who presents to the emergency department from [facility] for hypoxia. patient was discharged from the emergency department yesterday after being diagnosed with urinary tract infection and pneumonia and had a midline placed with plan for IV or ertapenem x 7 days as well as treatment for pneumonia. Reportedly, patient was at physical therapy today on 2 L nasal cannula (baseline is 3 L nasal cannula) in his wheelchair when he became short of breath and had oxygen saturations into the 80s. Patient was briefly on BiPAP but was bumped down to 4 L nasal cannula via EMS and is now back on 3 L nasal cannula. Patient reports that he is chronically short of breath but does not believe it is worse than normal currently. He denies any current chest pain. Denies any fevers. He does report a cough. Related Data Home Medications ?Medication ?Instructions ?Recorded ?Confirmed aspirin 81 mg chewable tablet 81 mg PO DAILY 06/09/23 09/09/24 cetirizine 10 mg tablet 10 mg PO DAILY 06/09/23 09/09/24 ferrous sulfate 325 mg (65 mg 325 mg PO DAILY 06/09/23 09/09/24 iron) tablet isosorbide mononitrate 30 mg 30 mg PO DAILY 06/09/23 09/09/24 tablet,extended release 24 hr oxcarbazepine 300 mg tablet 300 mg PO BID 06/09/23 09/09/24 acetaminophen 500 mg capsule 500 mg PO Q4HP PRN Mild Pain 06/10/23 09/09/24 (Scale Score 1-4) multivitamin 1 tab PO DAILY 06/10/23 09/09/24 timolol maleate 0.5 % eye drops 1 drp ophthalmic (eye) DAILY 06/10/23 09/09/24 escitalopram oxalate 5 mg tablet 5 mg PO DAILY 12/06/23 09/09/24 (Lexapro) guaifenesin 100 mg/5 mL oral liquid 200 mg PO Q6HP PRN Cough 12/22/23 09/10/24 lidocaine 4 % topical patch 1 patch topical DAILY 12/22/23 09/09/24 (Lidocaine Pain Relief) ondansetron HCl 4 mg tablet 4 mg PO Q4HP PRN Nausea 12/22/23 09/10/24 albuterol sulfate 90 mcg/actuation 1 puff inhalation Q4HP PRN 02/14/24 09/10/24 aerosol inhaler (Ventolin HFA) Shortness Of Breath loperamide 2 mg capsule 2 mg PO Q6HP PRN Diarrhea 02/14/24 09/10/24 white petrolatum-mineral oil 94 1 applic ophthalmic (eye) HS 02/14/24 09/09/24 %-3 % eye ointment (Systane Nighttime) aluminum hydrox-magnesium carb 95 30 ml PO Q6HP PRN Acid Reflux 04/24/24 09/09/24 mg-358 mg/15 mL oral suspension (Acid Gone Antacid) fluticasone propionate 50 2 spray intranasal DAILY 06/26/24 09/09/24 mcg/actuation nasal spray,suspension (Flonase Allergy Relief) metoprolol succinate 100 mg 100 mg PO DAILY 06/26/24 09/09/24 tablet,extended release 24 hr ipratropium 0.5 mg-albuterol 3 mg 3 ml inhalation QIDP PRN Shortness 09/04/24 09/10/24 (2.5 mg base)/3 mL nebulization Of Breath Or Wheezing soln sennosides 8.6 mg tablet (Senna 17.2 mg PO HS 09/04/24 09/09/24 Laxative) Previous Rx's ?Medication ?Instructions ?Recorded fluticasone fur. 100 mcg-umeclid 1 inh inhalation DAILY #60 ea 01/03/24 62.5 mcg-vilant 25 mcg inhalat.powder (Trelegy Ellipta) finasteride 5 mg tablet 5 mg PO DAILY #90 tabs 03/05/24 tamsulosin 0.4 mg capsule 0.4 mg PO HS 90 days #90 caps 03/05/24 apixaban 2.5 mg tablet (Eliquis) 2.5 mg PO BID #60 tabs 05/24/24 gabapentin 100 mg capsule 100 mg PO BID #60 caps 06/08/24 hydrocodone 5 mg-acetaminophen 325 1 tab PO TID #90 tabs 08/28/24 mg tablet atorvastatin 40 mg tablet 40 mg PO HS 30 days #30 tabs 09/12/24 clopidogrel 75 mg tablet 75 mg PO DAILY 30 days #30 tabs 09/12/24 furosemide 20 mg tablet 20 mg PO DAILY 30 days #30 tabs 09/12/24 pantoprazole 40 mg tablet,delayed 40 mg PO HS 30 days #30 tabs 09/12/24 release azithromycin 250 mg tablet 250 mg PO DAILY 5 days #5 tabs 09/13/24 amoxicillin 875 mg-potassium 1 tab PO BID UTI #14 tabs 09/14/24 clavulanate 125 mg tablet Allergies Allergy/AdvReac Type Severity Reaction Status Date / Time No Known Allergies Allergy Verified 09/04/24 15:17 [facility] Disclaimer: The information contained in this section may have been updated after the patient was seen, as this information can be updated by other users. Medical History Lung cancer COPD mixed type PAF (paroxysmal atrial fibrillation) Knee pain, right Hyperkalemia Polycystic kidney UTI (urinary tract infection) Acute renal injury Jason catheter in place Pain in left arm Chronic hypoxic respiratory failure, on home oxygen therapy Hx of prostatic malignancy Colon cancer Knee pain Heart failure with preserved ejection fraction Peripheral edema Acute exacerbation of chronic obstructive pulmonary disease Adenocarcinoma of lung Chronic obstructive pulmonary disease CKD (chronic kidney disease) Stopped smoking with greater than 30 pack year history CVA (cerebral vascular accident) Blind Congestive heart failure Renal stones Gastroesophageal reflux 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) CVA (cerebral vascular accident) Obesity (BMI 30.0-34.9) Elevated left ventricular end-diastolic pressure (LVEDP) Diastolic dysfunction Pulmonary HTN Surgical History Hx of total knee arthroplasty History of bowel resection History of bronchoscopy History of ureteroscopy History of colonoscopy History of colectomy Family History Unknown Cancer Other Family history of cancer Social History Smoking Status: Never smoker alcohol intake: never substance use type: denies use current occupational status: disabled Travel in the last 8 weeks?: None caregiver/support person: Yes household members: none housing: custodial lives independently: No marital status: single current occupation: [employer] current occupational exposures/hazards: No caffeine: Yes special milad needs: No agree to transfusion: No do you feel safe at home: Yes victim of physical abuse: No victim of emotional abuse: No victim of sexual abuse: No would you like helpful sources: No Have you lived/traveled outside US in past 30 days?: No Contact w/someone who lives/traveled outside US past 30 days?: No Exposure to someone with infectious disease in past 14 days?: No Do you have a fever (greater than 100.4 F or 38 C)?: No Have you tested positive for COVID-19?: No Exposed to someone with COVID-19 in past 14 days?: No Do you have a sore throat?: No Do you have a cough?: No Do you have any weakness?: No Do you have any diarrhea?: No Are you experiencing any unusual bleeding?: No Do you have any muscle aches/pain?: No Do you have any abdominal pain?: No Are you experiencing loss of taste or smell?: No Other Medical History Have you received the Flu Vaccine for this season: No Have you received the Pneumonia Vaccine: No ROS Obtained: Yes Systems reviewed as appropriate & no additional complaints except as documented Physical Exam General General appearance: alert and in no apparent distress Head Head exam: atraumatic Eye Eye exam: Present normal appearance ENT ENT exam: Present normal external ear exam Neck Neck exam: Present full ROM Chest Chest inspection: Present symmetric chest wall rise and tenderness (left anterior chest wall) Respiratory Respiratory exam: Present normal lung sounds bilaterally; Absent respiratory distress, wheezes or stridor Cardiovascular Cardiovascular exam: Present regular rate and normal rhythm Abdominal Exam Abdominal exam: Present soft; Absent distention, tenderness or guarding exam: Present deferred Extremities Exam Extremities exam: Present normal inspection Back Exam Back exam: Present normal inspection Neurological Exam Neurological exam: Present alert and oriented X3 Psychiatric Psychiatric exam: Present normal affect Skin Skin exam: Present warm and dry Medical Decision Making Medical Records Screening: Per USPSTF and CDC recommendations, given the prevalence of disease in our region, it is our hospital?s policy to screen for HIV and viral Hepatitis for all patients aged 18 and over and those with ongoing risk factors. [place] [facility] Pt receiving controlled substance: No Vital Signs: 09/14/24 16:36 09/14/24 16:42 09/14/24 16:42 Temperature 98 F 98 F Temperature Source Oral Oral Pulse Rate 61 58 L Pulse Rate [Right] 58 L Respiratory Rate 14 14 Blood Pressure 167/92 H 167/92 H Blood Pressure [Right Radial Artery] 167/92 H Blood Pressure Mean Blood Pressure Mean [Right Radial Artery] 117 Blood Pressure Source Automatic Cuff Blood Pressure Source [Right Radial Artery] Automatic Cuff Blood Pressure Position Supine Blood Pressure Position [Right Radial Artery] Supine 02 Sat by Pulse Oximetry 95 98 98 Oxygen Delivery Method Nasal Cannula Nasal Cannula Nasal Cannula Oxygen Flow Rate (LPM) 3 4 4 09/14/24 16:46 09/14/24 17:00 09/14/24 17:15 Temperature Temperature Source Pulse Rate 59 L 58 L 66 Pulse Rate [Right] Respiratory Rate 14 16 12 Blood Pressure 161/93 H 159/85 H 151/116 H Blood Pressure [Right Radial Artery] Blood Pressure Mean Blood Pressure Mean [Right Radial Artery] Blood Pressure Source Blood Pressure Source [Right Radial Artery] Blood Pressure Position Blood Pressure Position [Right Radial Artery] 02 Sat by Pulse Oximetry 99 99 98 Oxygen Delivery Method Nasal Cannula Nasal Cannula Nasal Cannula Oxygen Flow Rate (LPM) 3 3 3 09/14/24 17:31 09/14/24 17:45 09/14/24 18:15 Temperature Temperature Source Pulse Rate 61 63 Pulse Rate [Right] Respiratory Rate 15 16 18 Blood Pressure 164/96 H 162/96 H 176/97 H Blood Pressure [Right Radial Artery] Blood Pressure Mean 118 109 Blood Pressure Mean [Right Radial Artery] Blood Pressure Source Blood Pressure Source [Right Radial Artery] Blood Pressure Position Blood Pressure Position [Right Radial Artery] 02 Sat by Pulse Oximetry 98 99 98 Oxygen Delivery Method Nasal Cannula Oxygen Flow Rate (LPM) 3 09/14/24 18:31 09/14/24 18:46 Temperature Temperature Source Pulse Rate 60 65 Pulse Rate [Right] Respiratory Rate 17 15 Blood Pressure 171/93 H 161/88 H Blood Pressure [Right Radial Artery] Blood Pressure Mean Blood Pressure Mean [Right Radial Artery] Blood Pressure Source Blood Pressure Source [Right Radial Artery] Blood Pressure Position Blood Pressure Position [Right Radial Artery] 02 Sat by Pulse Oximetry 98 98 Oxygen Delivery Method Room Air Room Air Oxygen Flow Rate (LPM) Lab Data Lab Results 09/14/24 17:32: WBC 5.4, RBC 3.36 L, Hgb 9.7 L, Hct 30.6 L, MCV 91.1, MCH 28.9, MCHC 31.7 L, RDW 14.6, Plt Count 232, MPV 10.0, Neut % (Auto) 67.9, Lymph % (Auto) 13.3, [place] % (Auto) 12.2 H, Eos % (Auto) 5.7, Baso % (Auto) 0.7, Neut # (Auto) 3.7, Lymph # (Auto) 0.7, [place] # (Auto) 0.7, Eos # (Auto) 0.3, Baso # (Auto) 0.0, VBG pH 7.42 H, VBG pCO2 41.1, VBG pO2 60.8 H, VBG HCO3 26.1, VBG Total CO2 27.4 H, VBG O2 Saturation 91.3 H, VBG Base Excess 1.7, VBG Lactic Acid 1.2, Sodium 140, Potassium 4.2, Chloride 102, Carbon Dioxide 28, Anion Gap 14.2, BUN 43 H, Creatinine 2.50 H, Estimated Creat Clear 40, Estimated GFR 25 L, Est GFR ( Amer) 31 L, Glucose 85, Calcium 9.2, Total Bilirubin 0.2, AST 25, ALT 15, Alkaline Phosphatase 63, Troponin I 0.24 H, Total Protein 7.4, Albumin 4.0, Globulin 3.4 H, Albumin/Globulin Ratio 1.2 09/14/24 17:32 09/14/24 17:32 Orders (Tests/Meds): ORDERS Category Date Time Status CXR --portable [XR chest portable] Stat Exams 09/14/24 16:48 Completed CBC w/Auto Diff [Complete Blood Count Auto Diff] Stat Lab 09/14/24 17:32 Completed CMP [Comprehensive Metabolic Panel] Stat Lab 09/14/24 17:32 Completed Troponin I Stat Lab 09/14/24 17:32 Completed VBG [Venous Blood Gas] Stat RT 09/14/24 17:32 Completed ECG Data Tracing #1: I reviewed this ECG and interpreted as documented below: Normal sinus rhythm. No ST elevation or depression. QTc normal at 406. Yesterday patient did have T wave inversions in V3 through V6, with flattening of the T waves today Medical Decision Narrative: Edi Toussaint is a 74y male with a history of lung cancer s/p surgery, COPD on 3 L nasal cannula at baseline, recent cardiac cath, prostate cancer with indwelling Jason who presents to the emergency department from [facility] for hypoxia. patient was discharged from the emergency department yesterday after being diagnosed with urinary tract infection and pneumonia and had a midline placed with plan for IV or ertapenem x 7 days as well as treatment for pneumonia. Reportedly, patient was at physical therapy today on 2 L nasal cannula (baseline is 3 L nasal cannula) in his wheelchair when he became short of breath and had oxygen saturations into the 80s. Patient was briefly on BiPAP but was bumped down to 4 L nasal cannula via EMS and is now back on 3 L nasal cannula. Patient reports that he is chronically short of breath but does not believe it is worse than normal currently. He denies any current chest pain. Denies any fevers. He does report a cough. On arrival, patient is hypertensive with blood pressure 167/92, heart rate 58 bpm, breathing 14 times a minute with oxygen saturation 98% on 3 L nasal cannula. Afebrile. Physical exam, as stated above, revealed an overall well-appearing male in no distress. Cardiopulmonary exam is grossly unremarkable. He does have left-sided anterior chest wall tenderness, which was also present yesterday. Abdomen is soft, nontender nondistended. He does not appear volume overloaded. Differential diagnosis includes, but is not limited to: Pneumonia, pleural effusion, ACS, pericarditis, among others. The most morbid conditions were considered and workup was based on these. Workup in the emergency department included: EKG, troponin, chest x-ray, CBC, CMP, VBG Chest x-ray interpreted by me personally. Left upper lobe consolidation consistent with previously diagnosed pneumonia. No widening of the mediastinum. No pneumothorax. No other focal consolidation. No leukocytosis, hemoglobin 9.7 and hematocrit 30.6, mildly downtrending from yesterday but no evidence of bleeding and nonactionable. VBG grossly unremarkable with lactate normal at 1.2. A pH of 7.42. pCO2 41. Creatinine stable at 2.5. Electrolytes within normal limits. Liver enzymes unremarkable. Initial troponin of 0.24 (continuing to downtrend from yesterday). EKG unremarkable, as stated above. Patient is currently receiving Augmentin and azithromycin for pneumonia and is felt that this is appropriate therapy and given he has only been discharged for 1 day, he has not failed outpatient therapy. Is felt that he is appropriate for discharge back to [facility] for continued IV antibiotics for his UTI and oral antibiotics for his pneumonia. Patient likely became hypoxic because he was only on 2 L nasal cannula while doing physical therapy in the setting of pneumonia. Return precautions were provided. All questions were answered. He demonstrated understanding and was in agreement this plan. He was then discharged from the emergency department in stable condition. Critical Care Critical Care Time Critical Care Time: No
--- NOTE | 2024-09-14 17:27 | ECG_ITS ---
APPROVED REPORT Exam: Resting ECG HR:60 bpm ECG Measurements Heart Rate 60 AXES WV 223 P 34 QRSd 113 QRS -22 QT 406 T 26 QTc 406 Conclusion SINUS RHYTHM WITH FIRST DEGREE AV BLOCK BORDERLINE LEFT AXIS DEVIATION [QRS AXIS < -20] MODERATE INTRAVENTRICULAR CONDUCTION DELAY [110+ ms QRS DURATION] NONSPECIFIC ST & T-WAVE ABNORMALITY ABNORMAL ECG Electronically signed by : PILAR KOENIG, 09/18/2024 08:19:55
--- NOTE | 2024-09-14 17:35 | PC.NURSE ---
call made to resp for VBG order
[2024-09-14 17:40] LABS: Hematocrit 30.6 % (42.0-52.0); Hemoglobin 9.7 g/dL (14.1-18.0); Immature Granulocytes % 0.2 %; Mean Corpuscular HGB Conc 31.7 g/dL (31.8-35.4); Mean Corpuscular Hemoglobin 28.9 pg (27.0-31.2); Mean Corpuscular Volume 91.1 fl (80-94); Nucleated Red Blood Cells % 0 %; Platelet Count 232 K/mm3 (142-424); Red Blood Count 3.36 M/mm3 (4.60-6.20); Red Cell Distribution Width-SD 49.3 fL; White Blood Count 5.4 K/mm3 (4.8-10.8)
[2024-09-14 17:43] LABS: Lactate Venous 1.2 mmol/L (0.4-2.0); VBG HCO3 26.1 mmol/L (23-30); VBG PCO2 41.1 mmol/L (35-51); VBG PH 7.42 mmol/L (7.31-7.41); VBG PO2 60.8 mmol/L (28-40)
[2024-09-14 17:57] LABS: Alanine Aminotransferase 15 U/L (12-78); Albumin Level 4.0 g/dl (3.5-5.0); Albumin/Globulin Ratio 1.2 (1.1-1.8); Alkaline Phosphatase 63 U/L (38-126); Anion Gap 14.2 mEq/L (5-15); Aspartate Amino Transferase 25 U/L (17-59); Bilirubin,Total 0.2 mg/dl (0.2-1.3); Blood Urea Nitrogen 43 mg/dl (9-20); Calcium 9.2 mg/dl (8.4-10.2); Carbon Dioxide 28 mmol/L (22.0-30.0); Chloride 102 mmol/L (98-107); Creatinine Clearance Estimated 40 mL/min (50-200); Creatinine,Serum 2.50 mg/dl (0.66-1.25); Estimated Glomerular Filt Rate 25 ml/min (>60); GFR (African American) 31 ML/MIN (>60); Globulin 3.4 g/dL (1.3-3.2); Glucose 85 mg/dl (74-100); Potassium 4.2 mmoL/L (3.5-5.1); Sodium 140 mmol/L (136-145); Total Protein,Serum 7.4 g/dl (6.3-8.2)
[2024-09-14 18:10] LABS: Troponin I 0.24 ng/ml (0.00-0.034)
--- NOTE | 2024-09-14 20:12 | PC.NURSE ---
Called EMS for a transport to [place].
== END 2024-09-14 21:16 | disposition home or self-care (01) ==
PROVIDERS: Emergency Provider Student in an Organized Health Care Education/Training Program
DX: R09.02 Hypoxemia (principal); J18.9 Pneumonia, unspecified organism; J44.9 Chronic obstructive pulmonary disease, unspecified; Z99.81 Dependence on supplemental oxygen; Z87.891 Personal history of nicotine dependence
CPT/HCPCS: 71045; 80053; 82803; 84484; 85025; 93005; 99284

== ENCOUNTER 2024-09-21 10:44 | Outpatient (CLI) | payer MEDICARE, MEDICAID, SELFPAY ==
--- OUTSIDE RECORDS SUMMARY | 2024-08-27 13:00 | XMS_ITS | Encounter Summary ---
Author Organization [facility] Address [address] [place] [address] Care Team Providers Care Transportation Dispatcher Name Role Phone Edi Chase MD Primary Care Provider [phone] Sam Sanchez MD Unavailable [phone] Cayetano Cannon MD Unavailable [phone] Reason for Referral * Other Medical (Routine) - Pending Review Specialty Diagnoses / Procedures Referred By José campbell Referred To Contact Neurology Diagnoses Dizziness on standing Procedures EEG Jyoti [place] MD [address] [facility] [address] [place] [address] Phone: tel: fax: Referral ID Status Reason Start Date Expiration Date Visits Requested Visits Authorized [id number] Pending Review Specialty Services Required 08/27/2024 02/26/2026 1 1 Reason for Visit * Consultation (Routine) - Closed Specialty Diagnoses / Procedures Referred By José campbell Referred To Contact Neurology Diagnoses Syncope and collapse Malignant neoplasm of unspecified part of unspecified bronchus or lung (CMS/HCC) Miriam Baugh, GLOVE FORMER [address] [place] [address] Phone: tel: fax: Referral ID Status Reason Start Date Expiration Date V isits Requested Visits Authorized [id number] Closed Specialty Services Required 01/24/2024 07/25/2025 1 1 Encounter Details Date Type Department Care Team ([facility] st Contact Info) Description 08/27/2024 1:00 PM EDT Consult [place] [facility] [address], [address] [place] [address] Cuong Catherine MD [address] [place] [address] Dizziness on standing (Primary Dx); Nonintractable episodic headache, unspecified headache type; Cerebrovascular accident (CVA), unspecified mechanism (CMS/HCC) Social History Tobacco Use Types Packs/Day Years Used Date Smoking Tobacco: Former Cigarettes 2 47 1 [id number] Passive Smoke Exposure: Never Smokeless Tobacco: Never [...] answer 12/26/2023 How often do you attend [facility] or jain services? Patient unable to answer 12/26/2023 Do you belong to any clubs o r organizations such as jehovah's witness groups, unions, fraternal or athletic groups, or [...] Recorded Patient Health Questionnaire-2 Score 1 08/27/2024 [facility] - Occupational Stress Questionnaire Answer Date [...] place to sleep or slept in a custodial (including now)? Patient unable to answer 12/26/2023 [...] for lung cancer who presents to the [facility] as a new patient today with/for headaches and dizzy spells. HPI Referral placed by Miriam Baugh APRN for evaluation of syncope and collapse. [facility] and presents today with care nurse. Patient's [...] Types: Cigarettes Start date: 1970 Quit date: 2017 Years since quittin.4 Passive exposure: Never Smokeless [...] Reflexes: 2+ throughout Coordination: no ataxia with sersqs-sx-mxvj testing Proprioception: intact in upper extremities bilaterally [...] orthostatic hypotension. He should follow with his ear nose throat surgeon to obtain orthostatic vital signs and consider [...] 3 months Counseling Documentation: The patient and health and fitness professor was counseled regarding impressions. Education provided was verbal counseling. Additional time was spent in care coordination including medical record review. The total time of encounter was 100 minutes. . Cuong Catherine MD, PGY-2, Neurology Secure Chat/Pager: [phone] 08/27/2024 5:26 PM Dictation software disclaimer: Parts [...] After use, clean tip and replace cap. Cgpuitbegir-Pzcgpruxk-Jqsslo (Trelegy Ellipta) 100-62.5-25 MCG/ACT aerosol powder Inhale 1 puff 1 (one) time each day. gabapentin (Neurontin) 100 MG capsule Take 1 capsule by mouth 2 times a day. hydroCHLOROthiazide (HYDRODiuril) 25 MG tablet Take 1 tablet by mouth daily. HYDROcodone-acetaminophen ([place]) 5-325 MG tablet Take 1 tablet (5 [...] We discussed patient seeing eitherhis PCP or ear nose throat surgeon to test orthostatic vitals and adjust medications [...] Care Team (Late st Contact Info) Description 10/16/2024 8:00 AM EDT Appointment [facility] Neuro[facility] [address] [facility] [address] [place] [address] 10/26/2024 1:20 PM EDT Office Visit [facility] [address] [place] [address] Florentin Tillman MD [address] [place] [address] Scheduled Orders Name Type Priority Associated Diagnoses Orde r Schedule EEG Neurology Routine Dizziness on standing Expected: 08/27/2024 (Approximate), Expires: 02/28/2026 documented as of this encounter Visit Diagnoses Diagnosis Dizziness on standing- Primary Nonintractable episodic headache, unspecified headache type Cerebrovascular accident (CVA), unspecified mechanism (CMS/HCC) documented in this encounter Additional Health [...] documented as of this encounter Care Teams Transportation Dispatcher Relationship Specialty Start Date End Date Edi Chase MD [address] [place] [address] PCP - General 03/14/20 Sam Sanchez MD [address] [place] [address] Consulting Physician Pulmonary Disease 08/11/22 Cayetano Cannon MD [address] [place] [address] [place] [address] Referring Physician 08/11/22 documented as of this encounter
--- NOTE | 2024-09-21 10:30 | NM_ITS ---
FINAL REPORT CLINICAL HISTORY: Pain down left side/lung cancer FINDINGS: EXISTING RELEVANT IMAGING STUDIES: No prior bone scan or relevant imaging TECHNIQUE: The patient was injected with 24.8 mCi of technetium [id number]. 3 hour delayed images were obtained. FINDINGS: There is abnormal uptake within the lower thoracic spine at the T8 or T9 level. Abnormal activity is seen within 2 levels of the lower lumbar spine, probably L3 and L4. There is normal activity in the bony pelvis and ribs. Significant abnormal activity is seen in the left proximal tibia. The patient is status post arthroplasty. Hardware loosening can not be excluded. There is abnormal activity in the left hindfoot which could be posttraumatic, degenerative, or neoplastic. IMPRESSION: Abnormal uptake within the thoracolumbar spine. Recommend MRI characterization. Abnormal uptake in the left hindfoot. Recommend left foot radiographs. Reviewed, Interpreted and Dictated by Onesimo Velazquez MD Transcribed by Sayra Bliss Authenticated and [facility]
--- OUTSIDE RECORDS SUMMARY | 2024-09-21 10:49 | XMS_ITS | Clinical Summary ---
Author Organization [facility] Address [address] [place] [address] Phone Care Team Providers Care Sewage Disposal Engineer Name Role Phone Gala Osborne APRN Primary Care Physician [phone] [ ] Conditions or Problems Problem Name Problem Code Onset Date Status Entry Date Provider Comment Standard Description Annotate HEMATURIA NOS R31.9 (ICD-10-CM ) 05/11 Active 05/11 Gala Furnclayton AVILA Hematuria, unspecified ABNORMAL ELECTROCARDIO GRAM 185348234 (SNOMED CT) 05/11 Active 05/11 Gala Furnish VALIDATION TECHNICIAN Electrocardiogram abnormal BLINDNESS, BILATERAL 106565265 (SNOMED CT) 05/11 Active 05/11 Gala Furnclayton VALIDATION TECHNICIAN Blindness - both eyes HYPERTENSION 90144652 (SNOMED CT) 05/11 Active 05/11 Gala Furnish VALIDATION TECHNICIAN Hypertensive disorder FLANK PAIN, RIGHT [id number] (SNOMED CT) 05/11 Active 05/11 Gala Furnish VALIDATION TECHNICIAN Flank pain CHEST PAIN NOS 61280113 (SNOMED CT) 05/11 Active 05/11 Gala Furnish VALIDATION TECHNICIAN Chest pain Medications Medication Instructions Start Date Stop Date Generic Name NDC Provider HYDROCODONE-ACET AMINOPHEN 5-325 MG TABS 1-2 po q 6 hours prn pain HYDROCODONE-ACET AMINOPHEN [id number] Gala Furnclayton VALIDATION TECHNICIAN CIPROFLOXACIN HCL 500 MG TABS Take 1 tablet by mouth twice a day CIPROFLOXACIN HCL [id number] Gala Furnclayton VALIDATION TECHNICIAN Medications Administered No information available. Allergies, Adverse [...] Procedures Code Procedure Name Date Entry Date CPT-88221 ECG; interpretation and report only (Medicare use [id number] [phone] [id number]) CPT-12440 Urine Dip Auto CPT-99362 CMP (Outside Lab) Pharm Stress Test Pharmacologic Stress Test CPT-17598 Urine Culture (Outside Lab) Vital Signs Date [...]
--- OUTSIDE RECORDS SUMMARY | 2024-09-21 10:49 | XMS_ITS | Encounter Summary ---
Author Organization Healthcare Address [address] [place] [address] Care Team Providers Care Diversified Crops Supervisor Name Role Phone Edi Chase MD Primary Care Provider [phone] Sam Sanchez MD Unavailable [phone] Cayetano Cannon MD Unavailable [phone] Encounter Details Date Type Department Care Team (Late st Contact Info) Description 09/30/2022 Lab Requisition [facility] [address] [place] [address] Lyn Santana MD [address] [place] [address] Malignant neoplasm of upper lobe, left bronchus [...] [facility] [address] [place] [address] 10/26/2024 1:20 PM EDT Office Visit [facility] [address] [place] [address] Florentin Tillman MD [address] [place] [address] documented as of this encounter Procedures Procedure Name Priority Date/Time Associated Diagnosis Comments AP MISCELLANEOUS LAB TEST (SO) Routine 09/08/2022 11:51 AM EDT Malignant neoplasm of upper lobe, left bronchus or lung (CMS/HCC) documented in this encounter Results * AP Miscellaneous Lab Test (09/08/2022 11:51 AM EDT) Test name SC Profile 10/15/2022 7:42 AM EDT [facility] Comment:[id number] Test Result see scan 10/15/2022 7:42 AM EDT [facility] See Scanned Result 10/15/2022 7:42 AM EDT [facility] Tissue 09/08/2022 11:5 1 AM EDT 09/30/2022 2:24 PM EDT us Lyn Santana MD LAB REF LAB BLOOD AND FLUID ORD Final Result [facility] documented in this encounter Visit Diagnoses [...] documented as of this encounter Care Teams Diversified Crops Supervisor Relationship Specialty Start Date End Date Edi Chase MD [address] [place] [address] PCP - General 03/14/20 Sam Sanchez MD [address] [place] [address] Consulting Physician Pulmonary Disease 08/11/22 Cayetano Cannon MD [address] [place] [address] [place], [place] [address] Referring Physician 08/11/22 documented as of this encounter
--- OUTSIDE RECORDS SUMMARY | 2024-09-21 10:50 | XMS_ITS | Clinical Summary ---
Author Organization Healthcare Address [address] [place] [address] Care Team Providers Care Base Remover Name Role Phone Edi Chase MD Primary Care Provider [phone] Sam Sanchez MD Unavailable [phone] Cayetano Cannon MD Unavailable [phone] Allergies No known active allergies Medications [...] (one) time each day. Active HYDROcodone-rachel taminophen ([place]) 5-325 MG tablet Take 1 tablet (5 [...] Team Description 08/27/2024 1:00 PM EDT Consult [place] [facility] [address], 1st [place] [address] Cuong Catherine MD Dizziness on standing (Primary Dx); Nonintractable episodic headache, unspecified headache type; Cerebrovascular accident (CVA), unspecified mechanism (CMS/HCC) 08/27/2024 Travel 08/22/2024 Telephone [place] [facility] [address], [address] [place] [address] Cuong Catherine MD from Last [...] answer 12/26/2023 How often do you attend [facility] or zoroastrian services? Patient unable to answer 12/26/2023 Do you belong to any clubs o r organizations such as congregation groups, unions, fraternal or athletic groups, or [...] Recorded Patient Health Questionnaire-2 Score 1 08/27/2024 [facility] - Occupational Stress Questionnaire Answer Date [...] Recorded In the past 12 months has [employer], gas, oil, or water company threatened to [...] AM EDT Appointment PAV H Neurophysiology 800 [facility] Room [address] [address] 10/26/2024 1:20 PM EDT Office Visit [facility] [address] [place] [address] Florentin Tillman MD [address] [place] [address] Health Maintenance Due Date Last Done Comments [facility]-Medicare Annual Wellness (AWV) 1950 [facility]-/Child/Adol SDOH Screenings 1950 [facility]-DTaP,Tdap,and Td Vaccines (1 - Tdap) 08/31/1967 [facility]-Pneumococcal Vaccine: 50+ Years (1 of 2 - PCV) 08/31/1967 [facility]-Zoster Vaccines (1 of 2) 08/31/1967 [facility]-OWFEB-28 Vaccine (3 - Pfizer risk series) 05/10/2020 [...] Antibody Negative Negative 12/23/2023 6:55 PM EDT [facility] Blood Venous blood specimen / Unknown Venipuncture / Unknown 12/23/2023 5:39 PM EDT 12/23/2023 6:04 PM EDT Med Lyn MD LAB BLOOD ORDERABLES Final Result Performing Organization Address City/[facility]/ZIP Co de Phone Number [facility] [address] [place] [address] * (ABNORMAL) Hemoglobin A1c (12/23/2023 5:39 PM EDT) Hemoglobin A1c 6.3(H) <5.7 % 12/24/2023 12:22 AM EDT [facility] Blood Venous blood specimen / Unknown Venipuncture / Unknown 12/23/2023 5:39 PM EDT 12/23/2023 5:55 PM EDT Narrative [facility] - 12/24/2023 12:22 AM EDT HA1C Interpretive Data: Diagnosis of Diabetes: Diabetic > or = 6.5% Pre-diabetic 5.7 to 6.4% Non-diabetic < or = 5.6% Glycemic Targets for Type I and Type II Diabetics: Non- Adults <7.0% Adults <6.0% Children and Adolescents <7.5% Source: [place] [employer]. Standards of medical care in diabetes,2017. Diabetes Care.2017:40 (suppl 1):S1-S135. HbA1c assay performed by an ion-exchange chromatography method that is certified traceable to the DCCT. 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 Yes Care Teams Base Remover Relationship Specialty Start Date End Date Edi Chase MD [address] [place] [address] PCP - General 03/14/20 Sam Sanchez MD [address] [place] [address] Consulting Physician Pulmonary Disease 08/11/22 Cayetano Cannon MD [address] [place] [address] Referring Physician 08/11/22
--- OUTSIDE RECORDS SUMMARY | 2024-09-21 10:50 | XMS_ITS | Encounter Summary ---
Author Organization [facility] Address [address] [id number] Care Team Providers Care Pizza Hut Team Member Name Role Phone Edi Chase MD Primary Care Provider [phone] Sam Sanchez MD Unavailable [phone] Cayetano Cannon MD Unavailable [phone] Encounter Details Date Type Department Care Team (Late st Contact Info) Description 08/22/2024 Telephone [place] [facility] [address], [address] [place] [address] Cuong Catherine MD [address] [id number] Social History Tobacco Use Types Packs/Day Years [...] often do you attend chur ch or quaker services? Patient unable to answer 12/26/2023 Do you belong to any clubs o r organizations such as mandaen groups, unions, fraternal or athletic groups, or [...] one occasion? Patient unable to answer 12/26/2023 [facility] - Occupational [...] confirm 6-16 appt. Spoke with Devin at [facility], she will check with senior master scheduler. Gave phone number and address. documented in this encounter Plan of Treatment Upcoming Encounters Date Type Department Care Team ([facility] st Contact Info) Description 10/16/2024 8:00 AM EDT Appointment PAV H Neurophysiology 800 [facility] [address] [place] [address] 10/26/2024 1:20 PM EDT Office Visit [facility] [address] [place] [address] Florentin Tillman MD [address] [place] [address] documented as of this encounter Visit Diagnoses [...] documented as of this encounter Care Teams Pizza Hut Team Member Relationship Specialty Start Date End Date Edi Chase MD [address] [place] [address] PCP - General 03/14/20 Sam Sanchez MD [address] [place] [address] Consulting Physician Pulmonary Disease 08/11/22 Cayetano Cannon MD [address] [place] [address] Referring Physician 08/11/22 documented as of this encounter
--- OUTSIDE RECORDS SUMMARY | 2024-09-21 10:50 | XMS_ITS | Encounter Summary ---
Author Organization Healthcare Address [address] [place] [address] Care Team Providers Care Child Nurse Name Role Phone Edi Chase MD Primary Care Provider [phone] Sam Sanchez MD Unavailable [phone] Cayetano Cannon MD Unavailable [phone] Encounter Details Date Type Department Care Team (Late st Contact Info) Description 12/26/2023 Lab Requisition PAV H Lab [address] [place] [address] Amado Horton MD [address] [facility] [place] [address] Encounter for general adult medical [...] How often do you attend chur or sikh services? Patient unable to answer 12/26/2023 Do [...] unable to answer 12/26/[address] [facility] [address] [facility] - Occupational Stress Questionnaire Answer Date [...] place to sleep or slept in a fpc (including now)? Patient unable to answer 12/26/2023 [...] Appointment PAV H Neurophysiology 800 [facility] Pav H [address] [place] [address] 10/26/2024 1:20 PM EDT [facility] [address] [place] [address] Florentin Tillman MD [address] [place] [address] documented as of this encounter Procedures Procedure Name Priority Date/Time Associated Diagnosis Comments MULTI DRUG RESISTANCE TEST Routine 12/26/2023 2:00 PM EDT Encounter for general adult medical examination without abnormal findings documented in this encounter Results * Multi Drug Resistance Test (12/26/2023 2:00 PM EDT) Culture No growth at day 1 12/27/2023 12:24 PM EDT [facility] Swab (Nares and Brenda Rectal) 12/26/2023 2:00 PM EDT 12/26/2023 3:15 PM EDT us Amado Horton MD LAB MICROBIOLOGY - GEN ERAL ORDERABLES Final Result [facility] [address] [place] [address] documented in this encounter Visit Diagnoses Diagnosis [...] documented as of this encounter Care Teams Child Nurse Relationship Specialty Start Date End Date Edi Chase MD [address] [place] [address] PCP - General 03/14/20 Sam Sanchez MD [address] [place] [address] Consulting Physician Pulmonary Disease 08/11/22 Cayetano Cannon MD [address] [facility] [address] [place] [address] Referring Physician 08/11/22 documented as of this encounter
--- OUTSIDE RECORDS SUMMARY | 2024-09-21 10:50 | XMS_ITS | Encounter Summary ---
Author Organization Healthcare Address [address] [place] [address] Care Team Providers Care Spanish Literature Professor Name Role Phone Edi Chase MD Primary Care Provider [phone] Sam Sanchez MD Unavailable [phone] Cayetano Cannon MD Unavailable [phone] Encounter Details Date Type Department Care Team (Late st Contact Info) Description 07/08/2022 Orders Only External Location [address] [place] [address] Armani Lopez [place] [address] [place] [address] Social History Tobacco Use Types [...] EDT Appointment PAV H Neurophysiology 800 [facility] H [address] [place] [address] 10/26/2024 1:20 PM EDT Office Visit [address] [address] Florentin Tillman MD [address] [place] [address] documented as of this encounter Procedures Procedure [...] documented as of this encounter Care Teams Spanish Literature Professor Relationship Specialty Start Date End Date Edi Chase MD [address] [place] [address] PCP - General 03/14/20 Sam Sanchez MD [address] [place] [address] Consulting Physician Pulmonary Disease 08/11/22 Cayetano Cannon MD [address] [place] [address] Referring Physician 08/11/22 documented as of this encounter
--- OUTSIDE RECORDS SUMMARY | 2024-09-21 10:50 | XMS_ITS | Encounter Summary ---
Author Organization Healthcare Address [address] [place] [address] Care Team Providers Care Doll Wig Maker Rooted Hair Name Role Phone Edi Chase MD Primary Care Provider [phone] Sam Sanchez MD Unavailable [phone] Cayetano Cannon MD Unavailable [phone] Encounter Details Date Type Department Care Team ([facility] st Contact Info) Description 01/05/2024 Orders Only External Location 800 [place] [address] Cedric Hinton MD [address] [place] [address] Social History Tobacco Use Types Packs/Day Years [...] often do you attend chur ch or scientologist services? Patient unable to answer 12/26/2023 Do you belong to any clubs o r organizations such as oriental orthodox groups, unions, fraternal or athletic groups, or [...] one occasion? Patient unable to answer 12/26/2023 [facility] - Occupational Stress Questionnaire Answer Date Recorded [...] 8:00 AM EDT Appointment PAV Neurophysiology 800 [facility] [address] [address] 10/26/2024 1:20 PM EDT Office Visit [facility] [address] [place] [address] Florentin Tillman MD [address] [place] [address] documented as of this encounter Procedures Procedure [...] documented as of this encounter Care Teams Doll Wig Maker Rooted Hair Relationship Specialty Start Date End Date Edi Chase MD [address] [place] [address] PCP - General 03/14/20 Sam Sanchez MD [address] [place] [address] Consulting Physician Pulmonary Disease 08/11/22 Cayetano Cannon MD [address] [facility] [address] [place] [id number] Referring Physician 08/11/22 documented as of this encounter
--- OUTSIDE RECORDS SUMMARY | 2024-09-21 10:50 | XMS_ITS | Encounter Summary ---
Author Organization Healthcare Address [address] [place] [address] Care Team Providers Care Fold Skiver Name Role Phone Edi Chase MD Primary Care Provider [phone] Sam Sanchez MD Unavailable [phone] Cayetano Cannon MD Unavailable [phone] Encounter Details Date Type Department Care Team (Late st Contact Info) Description 12/14/2023 Orders Only External Location 800 [place] [address] Cedric Hinton MD [address] [...] AM EDT Appointment PAV H Neurophysiology 800 [facility] Pav H [address] [place] [address] 10/26/2024 1:20 PM EDT Office Visit [facility] [address] [place] [address] Florentin Tillman MD [address] [place] [address] documented as of this encounter Procedures Procedure [...] documented as of this encounter Care Teams Fold Skiver Relationship Specialty Start Date End Date Edi Chase MD [address] [place] [address] PCP - General 03/14/20 Sam Sanchez MD [address] [place] [address] Consulting Physician Pulmonary Disease 08/11/22 Cayetano Cannon MD 12[address] [facility] [address] [place] [address] Referring Physician 08/11/22 documented as of this encounter
--- OUTSIDE RECORDS SUMMARY | 2024-09-21 10:50 | XMS_ITS | Encounter Summary ---
Author Organization [facility] Address [address] [place] [address] Care Team Providers Care Repair Department Manager Name Role Phone Edi Chase MD Primary Care Provider [phone] Sam Sanchez MD Unavailable [phone] Cayetano Cannon MD Unavailable Encounter Details Date Type Department Care Team [...] How often do you attend chur or samaritan services? Patient unable to answer 12/26/2023 Do you belong to any clubs o r organizations such as restoration groups, unions, fraternal or athletic groups, or [...] Health Questionnaire-2 Score 1 08/27/2024 [facility] - Occupational Stress Questionnaire Answer Date [...] EDT Appointment PAV H Neurophysiology 800 [facility] [address] [place] [address] 10/26/2024 1:20 PM EDT Office Visit [facility] [address] [place] [address] Florentin Tillman MD [address] [place] [address] documented as of this encounter [...] documented as of this encounter Care Teams Repair Department Manager Relationship Specialty Start Date End Date Edi Chase MD [address] [place] [address] PCP - General 03/14/20 Sam Sanchez MD [address] [place] [address] Consulting Physician Pulmonary Disease 08/11/22 Cayetano Cannon MD [address] [place] [id number] Referring Physician 08/11/22 documented as of this encounter
--- OUTSIDE RECORDS SUMMARY | 2024-09-21 10:50 | XMS_ITS | Encounter Summary ---
Author Organization Healthcare Address [address] [place] [address] Care Team Providers Care Production Troubleshooter Name Role Phone Edi Chase MD Primary Care Provider [phone] Sam Sanchez MD Unavailable [phone] Cayetano Cannon MD Unavailable [phone] Encounter Details Date Type Department Care Team (Late st Contact Info) Description 12/12/2023 Orders Only External Location [address] [place] [address] Provider, External Social History Tobacco Use Types [...] AM EDT Appointment PAV H Neurophysiology 800 [facility] Pav H [address] [place] [address] 10/26/2024 1:20 PM EDT Office Visit [facility] [address] [place] [address] Florentin Tillman MD [address] [place] [address] documented as of this encounter Procedures Procedure [...] documented as of this encounter Care Teams Production Troubleshooter Relationship Specialty Start Date End Date Edi Chase MD [address] [place] [address] PCP - General 03/14/20 Sam Sanchez MD [address] [place] [address] Consulting Physician Pulmonary Disease 08/11/22 Cayetano Cannon MD [address] [place] [address] Referring Physician 08/11/22 documented as of this encounter
[2024-09-21] MEDS: SODIUM CHLORIDE 0.9% 10ML SYR (RAD ONLY) 10 ML IV (14:18)
[2024-09-21] MEDS: ISOTOPE MDP (BONE);1 DOSE VIAL IV (14:18)
== END 2024-09-21 23:59 | disposition home or self-care (01) ==
LOC: RAD 10:45
PROVIDERS: PCP Family Medicine; Visit Provider Internal Medicine Medical Oncology
DX: C34.90 Malignant neoplasm of unspecified part of unspecified bronchus or lung (principal); R93.7 Abnormal findings on diagnostic imaging of other parts of musculoskeletal system
CPT/HCPCS: 78306; A9503

== ENCOUNTER 2024-10-03 10:21 | Outpatient (CLI) | payer MEDICARE, MEDICAID, SELFPAY ==
--- OUTSIDE RECORDS SUMMARY | 2024-08-27 13:00 | XMS_ITS | Encounter Summary ---
Author Organization [facility] Address [address] [place] [address] Care Team Providers Care Personalized Living Manager Nurse Name Role Phone Edi Chase MD Primary Care Provider [phone] Sam Sanchez MD Unavailable [phone] Cayetano Cannon MD Unavailable [phone] Reason for Referral * Other Medical (Routine) - Authorized Specialty Diagnoses / Procedures Referred By José campbell Referred To Contact Neurology Diagnoses Dizziness on standing Procedures EEG Jyoti Tyler MD [address] [facility] [address] [place] [address] Phone: tel: fax: Referral ID Status Reason Start Date Expiration Date Visits Requested Visits Authorized [id number] Authorized Specialty Services Required 08/27/2024 02/26/2026 1 1 Reason for Visit * Consultation (Routine) - Closed Specialty Diagnoses / Procedures Referred By José campbell Referred To Contact Neurology Diagnoses Syncope and collapse Malignant neoplasm of unspecified part of unspecified bronchus or lung (CMS/HCC) Miriam Baugh, MOCK UP BUILDER [address] [place] [address] Phone: tel: fax: Referral ID Status Reason Start Date Expiration Date V isits Requested Visits Authorized [id number] Closed Specialty Services Required 01/24/2024 07/25/2025 1 1 Encounter Details Date Type Department Care Team ([facility] st Contact Info) Description 08/27/2024 1:00 PM EDT Consult [place] [facility] [address] [place] [address] Cuong Catherine MD [address] [place] [address] Dizziness on standing (Primary Dx); Nonintractable episodic [...] answer 12/26/2023 How often do you attend [facility] or mandaen services? Patient unable to answer 12/26/2023 Do you belong to any clubs o r organizations such as amish groups, unions, fraternal or athletic groups, or [...] Recorded Patient Health Questionnaire-2 Score 1 08/27/2024 [facility] of Occupat ional Health - Occupational Stress Questionnaire Answer Date Recorded [...] syncope and collapse. Pt lives in a prison and presents today with care nurse. Patient's [...] Reflexes: 2+ throughout Coordination: no ataxia with rlsobt-qq-lhpo testing Proprioception: intact in upper extremities bilaterally [...] is unremarkable. His most recent sodium was normal.It would be beneficial to obtain a routine EEG to evaluate his baseline activity and to evaluate for any epileptiform discharges that may necessitate increased dose [...] orthostatic hypotension. He should follow with his building code inspector to obtain orthostatic vital signs and consider [...] 3 months Counseling Documentation: The patient and network support manager was counseled regarding impressions. Education provided was verbal counseling. Additional time was spent in care coordination including medical record review. The total time of encounter was 100 minutes. . Cuong Catherine MD, PGY-2, Neurology Secure Chat/Pager: [phone] 08/27/2024 5:26 PM Dictation software disclaimer: Parts [...] After use, clean tip and replace cap. Gkecienucnq-Sfitguvij-Pjjmlh (Trelegy Ellipta) 100-62.5-25 MCG/ACT aerosol powder Inhale 1 puff 1 (one) time each day. gabapentin (Neurontin) 100 MG capsule Take 1 capsule by mouth 2 times a day. hydroCHLOROthiazide (HYDRODiuril) 25 MG tablet Take 1 tablet by mouth daily. HYDROcodone-acetaminophen ([place]) 5-325 MG tablet Take 1 tablet (5 [...] We discussed patient seeing eitherhis PCP or building code inspector to test orthostatic vitals and adjust medications [...] AM EDT Appointment [facility] Neurophysiology [address] [place] [address] 10/26/2024 1:20 PM EDT Office Visit [facility] [address] [place] [address] Florentin Tillman MD [address] [place] [address] Scheduled Orders Name Type Priority Associated Diagnoses [...] documented as of this encounter Care Teams Personalized Living Manager Nurse Relationship Specialty Start Date End Date Edi Chase MD [address] [place] [address] PCP - General 03/14/20 Sam Sanchez MD [address] [place] [address] Consulting Physician Pulmonary Disease 08/11/22 Cayetano Cannon MD [address] [place] [address] Referring Physician 08/11/22 documented as of this encounter
--- OUTSIDE RECORDS SUMMARY | 2024-10-03 10:24 | XMS_ITS | Encounter Summary ---
Author Organization Healthcare Address [address] [place] [address] Care Team Providers Care Goods Layer Name Role Phone Edi Chase MD Primary Care Provider [phone] Sam Sanchez MD Unavailable [phone] Cayetano Cannon MD Unavailable [phone] Encounter Details Date Type Department Care Team (Late st Contact Info) Description 09/30/2022 Lab Requisition PAV H Lab [address] [place] [address] Lyn aSntana MD [address] [place] [address] Malignant neoplasm of upper lobe, left bronchus [...] AM EDT Appointment PAV H Neurophysiology 800 [facility] [address] [place] [address] 10/26/2024 1:20 PM EDT Office Visit [facility] [address] [place] [address] Florenitn Tillman MD [address] [place] [address] documented as of this encounter Procedures Procedure Name Priority Date/Time Associated Diagnosis Comments AP MISCELLANEOUS LAB TEST (SO) Routine 09/08/2022 11:51 AM EDT Malignant neoplasm of upper lobe, left bronchus or lung (CMS/HCC) documented in this encounter Results * AP Miscellaneous Lab Test (09/08/2022 11:51 AM EDT) Test name TN Profile 10/15/2022 7:[address] [facility] Comment:[id number] Test Result see scan 10/15/2022 7:[address] [facility] See Scanned Result 10/15/2022 7:[address] [facility] Tissue 09/08/2022 11:5 1 AM EDT 09/30/2022 2:24 PM EDT us Lyn Santana MD LAB REF LAB BLOOD AND FLUID ORD Final Result [facility] documented in this encounter Visit Diagnoses [...] documented as of this encounter Care Teams Goods Layer Relationship Specialty Start Date End Date Edi Chase MD [address] [place] [address] PCP - General 03/14/20 Sam Sanchez MD [address] [place] [address] Consulting Physician Pulmonary Disease 08/11/22 Cayetano Cannon MD [address] [place], [place] [address] Referring Physician 08/11/22 documented as of this encounter
--- OUTSIDE RECORDS SUMMARY | 2024-10-03 10:24 | XMS_ITS | Clinical Summary ---
Author Organization [facility] Address [address] [place] [address] Phone Care Team Providers Care Water Main Pipe Layer Name Role Phone Gala Osborne APRN Primary Care Physician [ ] Conditions or Problems Problem Name Problem Code Onset Date Status Entry Date Provider Comment Standard Description Annotate HEMATURIA NOS R31.9 (ICD-10-CM ) 05/11 Active 05/11 Gala Furnclayton AVILA Hematuria, unspecified ABNORMAL ELECTROCARDIO GRAM 243665140 (SNOMED CT) 05/11 Active 05/11 Gala Furnish CASTING REPAIRER Electrocardiogram abnormal BLINDNESS, BILATERAL 466782932 (SNOMED CT) 05/11 Active 05/11 Gala Furnclayton CASTING REPAIRER Blindness - both eyes HYPERTENSION 09851971 (SNOMED CT) 05/11 Active 05/11 Gala Furnish CASTING REPAIRER Hypertensive disorder FLANK PAIN, RIGHT 891423442 (SNOMED CT) 05/11 Active 05/11 Gala Furnish CASTING REPAIRER Flank pain CHEST PAIN NOS 67892693 (SNOMED CT) 05/11 Active 05/11 Gala Furnish CASTING REPAIRER Chest pain Medications Medication Instructions Start Date Stop Date Generic Name NDC Provider HYDROCODONE-ACET AMINOPHEN 5-325 MG TABS 1-2 po q 6 hours prn pain HYDROCODONE-ACET AMINOPHEN [id number] Gala Furnclayton CASTING REPAIRER CIPROFLOXACIN HCL 500 MG TABS Take 1 tablet by mouth twice a day CIPROFLOXACIN HCL [id number] Gala Furnclayton CASTING REPAIRER Medications Administered No information available. Allergies, Adverse [...] Procedures Code Procedure Name Date Entry Date CPT-88709 ECG; interpretation and report only (Medicare use [id number] + [id number]) CPT-54805 Urine Dip Auto CPT-22409 CMP (Outside Lab) Pharm Stress Test Pharmacologic Stress Test CPT-52747 Urine Culture (Outside Lab) Vital Signs Date [...]
--- OUTSIDE RECORDS SUMMARY | 2024-10-03 10:25 | XMS_ITS | Clinical Summary ---
Author Organization [facility] Address [address] [place] [address] Phone Care Team Providers Care Res Counselor Name Role Phone Unavailable Primary Care Provider [...] this topic Medical Devices Implanted Type Area Clam Dredge Boat Captain Device Identifier Shelf Expiration Date Model / Serial / Lot Stent Coronary Vision Rx 3.50mm X 18mm - [id number] Implanted:Qty: 1 on 03/16/2010 at [facility] [employer] [employer] Explanted:at [facility] [employer] (Quantity not on file) Stent-Vis ion [facility] LAB:VASC DEV [id number] / / [id number] Insurance [place]ARE [place] B [place] [address] [address] [place] [address] [place]
--- OUTSIDE RECORDS SUMMARY | 2024-10-03 10:25 | XMS_ITS | Encounter Summary ---
Author Organization Healthcare Address [address] [place] [address] Care Team Providers Care Home Restoration Service Cleaner Name Role Phone Edi Chase MD Primary Care Provider [phone] Sam Sanchez MD Unavailable [phone] Cayetano Cannon MD Unavailable [phone] Encounter Details Date Type Department Care Team ([facility] st Contact Info) Description 01/05/2024 Orders Only External Location [address] [place] [address] Cedric Hinton MD [address] [place] [address] Social History Tobacco Use Types Packs/Day Years [...] often do you attend chur ch or oriental orthodox services? Patient unable to answer 12/26/2023 Do you belong to any clubs o r organizations such as hinduism groups, unions, fraternal or athletic groups, or [...] Patient unable to answer 12/26/2023 [facility] - Occupational Stress Questionnaire [...] place to sleep or slept in a retirement (including now)? Patient unable to answer 12/26/2023 [...] 8:00 AM EDT Appointment PAV Neurophysiology 800 [facility] [address] [address] 10/26/2024 1:20 PM EDT Office Visit [facility] [address] [place] [address] Florentin Tillman MD [address] [place] [address] documented as of this encounter Procedures Procedure [...] as of this encounter Care Teams Home Restoration Service Cleaner Relationship Specialty Start Date End Date Edi Chase MD [address] [place] [address] PCP - General 03/14/20 Sam Sanchez MD [address] [place] [address] Consulting Physician Pulmonary Disease 08/11/22 Cayetano Cannon MD 1210 [facility] [address] [place] [id number] Referring Physician 08/11/22 documented as of this encounter
--- OUTSIDE RECORDS SUMMARY | 2024-10-03 10:25 | XMS_ITS | Encounter Summary ---
Author Organization Healthcare Address [address] [place] [address] Care Team Providers Care Sales Estimator Name Role Phone Edi Chase MD Primary Care Provider [phone] Sam Sanchez MD Unavailable [phone] Cayetano Cannon MD Unavailable [phone] Encounter Details Date Type Department Care Team (Late st Contact Info) Description 12/26/2023 Lab Requisition [facility] [address] [place] [address] Amado Horton MD [address] [facility] [address] [place] [address] Encounter for general adult medical [...] How often do you attend chur or bahai services? Patient unable to answer 12/26/2023 Do you belong to any clubs o r organizations such as hoahaoism groups, unions, fraternal or athletic groups, or [...] unable to answer 12/[facility] - Occupational Stress Questionnaire Answer [...] AM EDT Appointment [facility] Neurophysiology [address] [facility] [address] [place] [address] 10/26/2024 1:20 PM EDT Office Visit [facility] [address] [place] [address] Florentin Tillman MD [address] [place] [address] documented as of this encounter Procedures Procedure Name Priority Date/Time Associated Diagnosis Comments MULTI DRUG RESISTANCE TEST Routine 12/26/2023 2:00 PM EDT Encounter for general adult medical examination without abnormal findings documented in this encounter Results * Multi Drug Resistance Test (12/26/2023 2:00 PM EDT) Culture No growth at day 1 12/27/2023 12:24 PM EDT [facility] Swab (Nares and Brenda Rectal) 12/26/2023 2:00 PM EDT 12/26/2023 3:15 PM EDT us Amado Horton MD LAB MICROBIOLOGY - GEN ERAL ORDERABLES Final Result [facility] [address] [place] [address] documented in this encounter Visit Diagnoses Diagnosis [...] as of this encounter Care Teams Sales Estimator Relationship Specialty Start Date End Date Edi Chase MD [address] [place] [address] PCP - General 03/14/20 Sam Sanchez MD [address] [place] [address] Consulting Physician Pulmonary Disease 08/11/22 Cayetano Cannon MD [address] [facility] [address] [place] [address] Referring Physician 08/11/22 documented as of this encounter
--- OUTSIDE RECORDS SUMMARY | 2024-10-03 10:25 | XMS_ITS | Encounter Summary ---
Author Organization [facility] Address [address] [id number] Care Team Providers Care Business Objects Consultant Name Role Phone Edi Chase MD Primary Care Provider [phone] Sam Sanchez MD Unavailable [phone] Cayetano Cannon MD Unavailable [phone] Encounter Details Date Type Department Care Team (Late st Contact Info) Description 08/22/2024 [facility]phone [facility] [address] [place] [id number] Cuong Catherine MD [address] [id number] Social History Tobacco Use Types Packs/Day Years [...] often do you attend chur ch or christianity services? Patient unable to answer 12/26/2023 Do you belong to any clubs o r organizations such as moravian groups, unions, fraternal or athletic groups, or [...] one occasion? Patient unable to answer 12/26/2023 [facility] - [...] [facility], she will check with computer processing scheduler. Gave phone number and address. documented in this encounter Plan of Treatment Upcoming Encounters Date Type Department Care Team ([facility] st Contact Info) Description 10/16/2024 8:00 AM EDT Appointment [facility] Neurophysiology [address] [facility] [address] [place] [address] 10/26/2024 1:20 PM EDT Office Visit [facility] [address] [place] [address] Florentin Tillman MD [address] [place] [address] documented as of this encounter Visit Diagnoses [...] documented as of this encounter Care Teams Business Objects Consultant Relationship Specialty Start Date End Date Edi Chase MD [address] [place] [address] PCP - General 03/14/20 Sam Sanchez MD [address] [place] [address] Consulting Physician Pulmonary Disease 08/11/22 Cayetano Cannon MD [address] [place] [address] Referring Physician 08/11/22 documented as of this encounter
--- OUTSIDE RECORDS SUMMARY | 2024-10-03 10:25 | XMS_ITS | Encounter Summary ---
Author Organization [facility] Address [address] [place] [address] Care Team Providers Care Food Critic Name Role Phone Edi Chase MD Primary Care Provider [phone] Sam Sanchez MD Unavailable [phone] Cayetano Cannon MD Unavailable [phone] Encounter Details Date Type Department Care [...] How often do you attend chur or mormonism services? Patient unable to answer 12/26/2023 Do you belong to any clubs o r organizations such as sabianism groups, unions, fraternal or athletic groups, or [...] Questionnaire-2 Score 1 [facility]24 [facility] - [facility]ational Stress Questionnaire Answer Date [...] AM EDT Appointment [facility] Neurophysiology [address] [facility] [address] [place] [address] 10/26/2024 1:20 PM EDT Office Visit [facility] [address] [place] [address] Florentin Tillman MD [address] [place] [address] documented as of this encounter [...] documented as of this encounter Care Teams Food Critic Relationship Specialty Start Date End Date Edi Chase MD [address] [place] [address] PCP - General 03/14/20 Sam Sanchez MD [address] [place] [address] Consulting Physician Pulmonary Disease 08/11/22 Cayetano Cannon MD [address] [place] [id number] Referring Physician 08/11/22 documented as of this encounter
--- OUTSIDE RECORDS SUMMARY | 2024-10-03 10:25 | XMS_ITS | Encounter Summary ---
Author Organization Healthcare Address [address] [place] [address] Care Team Providers Care Packing House Laborer Name Role Phone Edi Chase MD Primary Care Provider [phone] Sam Sanchez MD Unavailable Cayetano Cannon MD Unavailable [phone] Encounter Details Date Type Department Care Team (Late st Contact Info) Description 07/08/2022 Orders Only External Location [address] [place] [address] [facility] [place] [address] [place] [address] Social History Tobacco Use Types [...] EDT Appointment [facility] Neurophysiology [address] [facility] [address] [place] [address] 10/26/2024 1:20 PM EDT Office Visit [address] [address] Florentin Tillman MD [address] [place] [address] documented as of this encounter Procedures Procedure [...] documented as of this encounter Care Teams Packing House Laborer Relationship Specialty Start Date End Date Edi Chase MD [address] [place] [address] PCP - General 03/14/20 Sam Sanchez MD [address] [place] [address] Consulting Physician Pulmonary Disease 08/11/22 Cayetano Cannon MD [address] [place] [address] Referring Physician 08/11/22 documented as of this encounter
--- OUTSIDE RECORDS SUMMARY | 2024-10-03 10:25 | XMS_ITS | Data Portability ---
Author Organization [facility] ADMIN Address [address] [place] [address] Care Team Providers Care Cigar Roller Name Role Phone ROZINAROSA Primary Care Provider [phone] Assessment No assessment recorded. Plan of Treatment Reminders Order Date Submit Date Provider Last Modified By Organization Details Last Modified Time Details Appointments FOLLOW UP 30 2024 10:00A M JUSTO VU MD Not available Not available Not available Lab culture, urine + sensitivi ty 2023 024 [facility] (Lab Registration) , [address] [place] [address] , [place], [address], 05/06/2023 07:44:10 urinalysi s, dipstick [address] [facility] [place], [address] [place] [address], [phone], 05/02/2023 09:19:22 Referral None recorded. Procedures bladder scan (PROC) [address] [facility] [place], [address] [place] [address], [phone], 05/02/2023 09:19:22 Surgeries None recorded. Imaging None recorded. Medication Orders cefdinir 300 mg capsule 2023 024 [place] [address] [facility], [facility] Ebonie Wilde, [place], [address], 04/29/2023 16:44:27 cefdinir 300 mg capsule 2023 024 [facility] [place] [address] Aristbernardinoat , [place], [address], 03/23/2023 12:36:21 finasteri de 5 mg tablet 2022 023 [facility] [place] [address], [facility] Aribernardinoat , [place], [address], 03/23/2023 12:36:44 Patient TargetsNo targets recorded. Patient InstructionsNo instructions recorded. Reason for Referral None Reported. Results Created Date Observation Date Name Description Value Unit Range Abnormal Flag Note LastModifiedBy Organization Detail LastModifiedTime 02/16/2002/15/2023 BASIC METAB OLIC PANEL sodium 133 mmol/ L 137-14 7 low Not Available [facility] (Pre-Op Clinic) [address] [place] [address] [place], [address], 02/15/2023 11:26:59 02/16/20 23 02/15/2023 BASIC METAB OLIC PANEL potassium 5.1 mmol/ L 3.5-5. 1 Not Available [facility] (Pre-Op Clinic) [address] [place] [address] [place], , 02/15/2023 11:26:59 02/16/20 23 02/15/2023 BASIC METAB OLIC PANEL chloride 93 mmol/ L 98-110 low Not Available [facility] (Pre-Op Clinic) [address] [place] [address] [place], [address], 02/15/2023 11:26:59 02/16/20 23 02/15/2023 BASIC METAB OLIC PANEL carbon dioxide 28 mmol/ L 21-30 Not Available [facility] (Pre-Op Clinic) [address] [place] [address] [place], [address], 02/15/2023 11:26:59 02/16/20 23 02/15/2023 BASIC METAB OLIC PANEL anion gap 12 mmol/ L 6-14 Not Available [facility] (Pre-Op Clinic) [address] [place] [address] [place], [address], 02/15/2023 11:26:59 02/16/20 23 02/15/2023 BASIC METAB OLIC PANEL glucose 84 mg/dL 70-115 Not Available [facility] (Pre-Op Clinic) [address] [facility] [place], [address], 02/15/2023 11:26:59 02/16/20 23 02/15/2023 BASIC METAB OLIC PANEL BUN 39 mg/dL 9-20 high Not Available [facility] (Pre-Op Clinic) [address] [place] [address] [place], [address], 02/15/2023 11:26:59 02/16/20 23 02/15/2023 BASIC METAB OLIC PANEL creatinine 2.1 mg/dL 0.5-1. 5 high Not Available [facility] (Pre-Op Clinic) [address] [place] [address] [place], [address], 02/15/2023 11:26:59 02/16/20 23 02/15/2023 BASIC METAB OLIC PANEL BUN/creatini ne ratio 19 ratio 10-20 Not Available [facility] (Pre-Op Clinic) [address] [place] [address] [place], [address], 02/15/2023 11:26:59 02/16/20 23 02/15/2023 BASIC METAB OLIC PANEL glom filtration rate TNP mL/mi n >60- GFR has only been valid ated for patie nts 18-70 years of age. Not Available [facility] (Pre-Op Clinic) [address] [place] [address] [place], [address], 02/15/2023 11:26:59 02/16/20 23 02/15/2023 BASIC METAB OLIC PANEL osmolality (calculated) 286 mosmo l/kg 275-30 1 OSMOL ALITY IS A CALCU LATIO N UTILI ZING THE SERUM /PLAS MA SODIU M, GLUCO SE AND UREA NITRO GEN (BUN) LEVEL S. FOR THE MOST ACCUR ATE RESUL T A MEASU RED SERUM OSMOL ALITY IS CLAUDIO FUNG. Not Available [facility] (Pre-Op Clinic) [address] [place] [address] [place], [address], 02/15/2023 11:26:59 02/16/20 23 02/15/2023 BASIC METAB OLIC PANEL calcium 9.4 mg/dL 8.5-10 .8 Not Available [facility] (Pre-Op Clinic) [address] [place] [address] [place], [address], 02/15/2023 11:26:59 02/16/20 23 02/15/2023 BASIC METAB OLIC PANEL note Unles s other hernandez noted testi ng perfo rmed at: [facility] [address] [place] [address] Arnaud mays MD Not Available [facility] (Pre-Op Clinic) [address] [place] [address] [place], [address], 02/15/2023 11:26:59 02/19/20 23 02/18/2023 RFS-P ATHOL OGY SPECI MEN REQUE ST pathreq Patho logy [address] [place] [address] Phone or [phone] Fax Joseph almonte Jr., M.D., Medic al Direc tor [facility] [address] : [place] [address] Phone Numbe r: [phone] Arnaud mays M.D. PATHO LOGY REPOR T Patie nt Name: AUDRA MEJIA Date of : 1950 Age/S ex: 72/M Accou nt Numbe r: [id number] Medic al Recor d Numbe r: [id number] Order ing MD: RICCARDO HARTLEY AM Date Colle cted : 2022 Date Recei balta : 2022 Date Repor harsh : 02/23 Exam: Biops y Acces heath# : [id number] Labor atory #: [id number] Copie s To: Techn ician : Clini yobani Histo ry Benig n prost atic hyper plasi a, urine reten tion Previ ous Patie nt Histo ry and Files ROBERTO MORAN ([birth year] 9 M) i??SS N: [id number] ?? 1. S23-0 83861 , DateC ollec harsh: 06/22 A: SPLEN IC FLEXU RE BIOPS Y Diagn osis: Colon ic type mucos a with no signi fican t histo patho logic abnor malit ies ROGELIO 2. S22-0 24440 , DateC ollec harsh: 12/15 A: COLON , POLYP , 12CM Diagn osis: Hyper plast ic polyp . B: COLON , POLYP , 7CM Diagn osis: Hyper plast ic polyp . C: COLON , POLYP , 5CM Diagn osis: Hyper plast ic polyp . 3. S21-0 03551 , DateC ollec harsh: 09/29 A: RIGHT [...] IHC inter preta tion: This is a srikatnh l pheno type with a low proba [...] nal Lymph Nodes (pN): pN1a 4. S21-0 22365 , DateC ollec harsh: 09/25 A: CECUM [...] or high- grade dyspl albino 5. S21-0 66834 , DateC ollec harsh: 07/10 A: ANTRU M, BIOPS Y Diagn osis: React leonor gastr opath y and mild chron ic gastr itis with intes tinal Legal ly authe ntica harsh by ARNAUD RENE MD 02-23 15:53 :00 metap lasia Negat leonor for dyspl albino FLP/p ah 6. S19-0 64734 , Date ollec harsh: 09/07 A: SKIN, [...] red by Arnaud mays Jr., MCindyD. at [facility], [address] [place] [address] . Final Diagn osis BENIG N PROST ATIC HYPER PLASI A EJT/S M Stain *Recu [place] ;[place] [address] Legal ly authe ntica harsh by ARNAUD RENE MD 02-23 15:53 :00 Not Available [facility] (Pre[facility]Op [facility]) [address] [place] [address] [place], [address], 02/23/2023 16:17:04 02/20/20 23 02/19/2023 CBC W/ AUTO DIFF WBC 7.57 K/uL 4.5-11 .5 Not Available [facility] (Pre-Op Clinic) [address] [place] [address] [place], [address], 02/19/2023 06:08:08 02/20/2002/19/2023 CBC W/ AUTO DIFF RBC 3.38 M/uL 4.0-5. 4 low Not Available [facility] (Pre-Op Clinic) [address] [place] [address] [place], [address], 02/19/2023 06:08:08 02/20/2002/19/2023 CBC W/ AUTO DIFF HGB 9.5 g/dL 14.0-1 8.0 low Not Available [facility] (Pre-Op Clinic) [address] [place] [address] [place], [address], 02/19/2023 06:08:08 02/20/20 23 02/19/2023 CBC W/ AUTO DIFF HCT 28.8 % 40-54 low Not Available [facility] (Pre-Op Clinic) [address] [place] [address] [place], [address], 02/19/2023 06:08:08 02/20/2005 0302/19/2023 CBC W/ AUTO DIFF MCV 85.2 fL 80.0-1 00.0 Not Available [facility] (Pre-Op Clinic) [address] [place] [address] [place], [address], 02/19/2023 06:08:08 02/20/20 23 02/19/2023 CBC W/ AUTO DIFF MCH 28.1 pg 26.0-3 2.0 Not Available [facility] (Pre-Op [facility]) [address] [place] [address] [place], [address], 02/19/2023 06:08:08 02/20/2002/19/2023 CBC W/ AUTO DIFF MCHC 33.0 g/dL 32.0-3 6.0 Not Available [facility] (Pre-Op Clinic) [address] [place] [address] [place], [address], 02/19/2023 06:08:08 02/20/2002/19/2023 CBC W/ AUTO DIFF RDW 14.7 % 11.5-1 4.5 high Not Available [facility] (Pre-Op Clinic) [address] [place] [address] [place], [address], 02/19/2023 06:08:08 02/20/2002/19/2023 CBC W/ AUTO DIFF platelet count 244 K/uL 142-42 4 Not Available [facility] (Pre-Op Clinic) [address] [place] [address] [place], [address], 02/19/2023 06:08:08 02/20/2002/19/2023 CBC W/ AUTO DIFF MPV 9.1 fL 6.8-10 .2 Not Available [facility] (Pre-Op Clinic) [address] [place] [address] [place], [address], 02/19/2023 06:08:08 02/20/2002/19/2023 CBC W/ AUTO DIFF neutrophil % 81.2 % 50-70 high Not Available [facility] (Pre-Op Clinic) [address] [place] [address] [place], [address], 02/19/2023 06:08:08 02/20/20 23 02/19/2023 CBC W/ AUTO DIFF lymphocyte % 5.3 % 18.0-4 2.0 low Not Available [facility] (Pre-Op Clinic) [address] [place] [address] [place], [address], 02/19/2023 06:08:08 02/20/2002/19/2023 CBC W/ AUTO DIFF monocyte % 10.2 % 2.0-11 .0 Not Available [facility] (Pre-Op Clinic) [address] [place] [address] [place], [address], 02/19/2023 06:08:08 02/20/2002/19/2023 CBC W/ AUTO DIFF eosinophil % 2.6 % 1.0-3. 0 Not Available [facility] (Pre-Op Clinic) [address] [place] [address] [place], [address], 02/19/2023 06:08:08 02/20/2002/19/2023 CBC W/ AUTO DIFF basophil % 0.4 % 0.0-2. 0 Not Available [facility] (Pre-Op Clinic) [address] [place] [address] [place], [address], 02/19/2023 06:08:08 02/20/2002/19/2023 CBC W/ AUTO DIFF immature granulocytes % 0.3 % 0.0-0. 8 Not Available [facility] (Pre-Op Clinic) [address] [place] [address] [place], [address], 02/19/2023 06:08:08 02/20/2002/19/2023 CBC W/ AUTO DIFF nucleated red blood cells % 0.0 % Not Available [facility] (Pre-Op Clinic) [address] [place] [address] [place], [address], 02/19/2023 06:08:08 12/09/20 23 02/19/2023 CBC W/ AUTO DIFF neutrophil # 6.15 K/uL Not Available [facility] (Pre-Op [facility]) [address] [place] [address] [place], [address], 02/19/2023 06:08:08 02/20/20 23 02/19/2023 CBC W/ AUTO DIFF lymphocyte # 0.40 K/uL Not Available [facility] (Pre-Op [facility]) [address] [place] [address] [place], [address], 02/19/2023 06:08:08 02/20/20 23 02/19/2023 CBC W/ AUTO DIFF monocyte # 0.77 K/uL Not Available [facility] (Pre-Op Clinic) [address] [place] [address] [place], [address], 02/19/2023 06:08:08 02/20/20 23 02/19/2023 CBC W/ AUTO DIFF eosinophil # 0.20 K/uL Not Available [facility] (Pre-Op Clinic) [address] [place] [address] [place], [address], 02/19/2023 06:08:08 02/20/20 23 02/19/2023 CBC W/ AUTO DIFF basophil # 0.03 K/uL Not Available [facility] (Pre-Op Clinic) [address] [place] [address] [place], [address], 02/19/2023 06:08:08 02/20/20 23 02/19/2023 CBC W/ AUTO DIFF immature gramulocytes # 0.02 K/uL Not Available [facility] (Pre-Op Clinic) [address] [place] [address] [place], [address], 02/19/2023 06:08:08 02/20/20 23 02/19/2023 CBC W/ AUTO DIFF nucleated red blood cells # 0.00 k/uL Not Available [facility] (Pre-Op Clinic) [address] [place] [address] [place], [address], 02/19/2023 06:08:08 02/20/20 23 02/19/2023 CBC W/ AUTO DIFF manual differential NO Not Available [facility] (Pre-Op [facility]) [address] [place] [address] [place], [address], 02/19/2023 06:08:08 02/20/20 23 02/19/2023 CBC W/ AUTO DIFF note Unles s other hernandez noted testi ng perfo rmed at: [facility] [address] [place] [address] Arnaud mays MD Not Available [facility] (Pre-Op Clinic) [address] [place] [address] [place], [address], 02/19/2023 06:08:08 02/20/20 23 02/19/2023 BASIC METAB OLIC PANEL sodium 139 mmol/ L 137-14 7 Not Available [facility] (Pre-Op Clinic) [address] [place] [address] [place], [address], 02/19/2023 06:44:15 02/20/20 23 02/19/2023 BASIC METAB OLIC PANEL potassium 4.3 mmol/ L 3.5-5. 1 Not Available [facility] (Pre-Op Clinic) [address] [place] [address] [place], [address], 02/19/2023 06:44:15 02/20/20 23 02/19/2023 BASIC METAB OLIC PANEL chloride 108 mmol/ L 98-110 Not Available [facility] (Pre-Op Clinic) [address] [place] [address] [place], [address], 02/19/2023 06:44:15 02/20/20 23 02/19/2023 BASIC METAB OLIC PANEL carbon dioxide 26 mmol/ L 21-30 Not Available [facility] (Pre-Op Clinic) [address] [place] [address] [place], [address], 02/19/2023 06:44:15 02/20/20 23 02/19/2023 BASIC METAB OLIC PANEL anion gap 5 mmol/ L 6-14 low Not Available [facility] (Pre[facility]Op [facility]) [address] [place] [address] [place], [address], 02/19/2023 06:44:15 02/20/20 23 02/19/2023 BASIC METAB OLIC PANEL glucose 95 mg/dL 70-115 Not Available [facility] (Pre[facility]Op Clinic) [address] [place] [address] [place], [address], 02/19/2023 06:44:15 02/20/20 23 02/19/2023 BASIC METAB OLIC PANEL BUN 32 mg/dL 9-20 high Not Available [facility] (Pre[facility]Op [facility]) [address] [place] [address] [place], [address], 02/19/2023 06:44:15 02/20/20 23 02/19/2023 BASIC METAB OLIC PANEL creatinine 1.7 mg/dL 0.5-1. 5 high Not Available [facility] (Pre[facility]Op [facility]) [address] [place] [address] [place], [address], 02/19/2023 06:44:15 02/20/20 23 02/19/2023 BASIC METAB OLIC PANEL BUN/creatini ne ratio 19 ratio 10-20 Not Available [facility] (Pre-Op [facility]) [address] [place] [address] [place], [address], 02/19/2023 06:44:15 02/20/20 23 02/19/2023 BASIC METAB OLIC PANEL glom filtration rate TNP mL/mi n >60- GFR has only been valid ated for patie nts 18-70 years of age. Not Available [facility] (Pre-Op Clinic) [address] [place] [address] [place], [address], 02/19/2023 06:44:15 02/20/20 23 02/19/2023 BASIC METAB OLIC PANEL osmolality (calculated) 296 mosmo l/kg 275-30 1 OSMOL ALITY IS A CALCU LATIO N UTILI ZING THE SERUM /PLAS MA SODIU M, GLUCO SE AND UREA NITRO GEN (BUN) LEVEL S. FOR THE MOST ACCUR ATE RESUL T A MEASU RED SERUM OSMOL ALITY IS CLAUDIO FUNG. Not Available [facility] (Pre-Op Clinic) [address] [place] [address] [place], [address], 02/19/2023 06:44:15 02/20/20 23 02/19/2023 BASIC METAB OLIC PANEL calcium 8.5 mg/dL 8.5-10 .8 Not Available [facility] (Pre[facility]Op [facility]) [address] [place] [address] [place], [address], 02/19/2023 06:44:15 02/20/20 23 02/19/2023 BASIC METAB OLIC PANEL note Unles s other hernandez noted testi ng perfo rmed at: [facility] [address] [place] [address] Arnaud mays MD Not Available [facility] ([facility]Op [facility]) [address] [place] [address] [place], [address], 02/19/2023 06:44:15 04/29/19 24 04/29/2023 CULTU RE URINE results [facility] 04-30 600 >100, 000 COL/M L Gram Negat leonor Rods Not Available [facility] (Lab Registration) [address] [place] [address] [place], [address], 04/30/2023 06:02:04 04/29/19 24 04/29/2023 CULTU RE URINE note Unles s other hernandez noted testi ng perfo rmed at: [facility] [address] [place] [address] [phone] Arnaud mays MD CLIA: [id number] Not Available [facility] (Lab Registration) [address] [place] [address] [place], [address], 04/30/2023 06:02:04 04/29/19 24 04/29/2023 CULTU RE URINE culccur ===== ===== ===== ===== ===== ===== ===== ===== ===== ===== ===== ===== ===== ===== ===== ===== ===== ===== ===== ===== ===== ===== ===== ===== Speci men NO.: [id number] Exam Statu s: Final Proce dure: [...] L Gram Negat leonor Rods Not Available [facility] (Lab Registration) [address] , [place], [address], 05/01/2023 07:47:10 04/29/19 24 04/29/2023 CULTU RE URINE note Unles s other hernandez noted testi ng perfo rmed at: [facility] [address] [place] [address] [phone] Arnaud mays MD CLIA: [id number] Not Available [facility] (Lab Registration) [address] , [place], [address], 05/01/2023 07:47:10 04/29/19 24 04/29/2023 bladd er scan (PROC ) Calculated Residual Urine: 699 ML Not Available [address], [address], 04/29/2023 11:45:28 04/29/19 24 04/29/2023 urina lysis , dipst ick Leukocytes (reference range) large Not Available [address], [address], 04/29/2023 11:44:38 04/29/19 24 04/29/2023 urina lysis , dipst ick Nitrite (reference range:) positi ve Not Available [address], [address], 04/29/2023 11:44:38 04/29/19 24 04/29/2023 urina lysis , dipst ick Urobilinogen (reference range) 1 Not Available [address], [address], 04/29/2023 11:44:38 04/29/19 24 04/29/2023 urina lysis , dipst ick Protein (reference range) 300 Not Available [address], [address], 04/29/2023 11:44:38 04/29/19 24 04/29/2023 urina lysis , dipst ick pH (reference range 5-8.5) 6.5 Not Available [address], [address], 04/29/2023 11:44:38 04/29/19 24 04/29/2023 urina lysis , dipst ick Blood (reference range:) large Not Available [address], [address], 04/29/2023 11:44:38 04/29/19 24 04/29/2023 urina lysis , dipst ick Specific [place] (reference range) 1.020 Not Available [address], [address], 04/29/2023 11:44:38 04/29/19 24 04/29/2023 urina lysis , dipst ick Ketone (reference range) trace Not Available [address], [address], 04/29/2023 11:44:38 04/29/19 24 04/29/2023 urina lysis , dipst ick Bilirubin (reference range) small Not Available [address], [address], 04/29/2023 11:44:38 04/29/19 24 04/29/2023 urina lysis , dipst ick Glucose (reference range) negati ve Not Available [address], [address], 04/29/2023 11:44:38 02/22/20 23 02/21/2023 cardi ac clear ance* No observ ation record ed. [email or web address] [facility] [address] [place] [address] [place], [address], 02/24/2023 10:25:26 03/25/19 24 03/25/2023 CT, chest , w/o contr ast [facility] [address] [place] [address] Phone: Fax: Name: ROBERTO TOUSSAINT Exam Date: 024 : 949 Age 72 Gender : M Access ion: [id number] Physic amalia: JUSTO VU Facili ty: [facility] Facili ty HSV: Outpat ient Exam: CT [...] you [facility] Legall y authen ticate d by POPE TIFFANY Collins 03-25 10:48: 47 CC'ed Logic: Orderi ng Provid er: MIRELLA KEMP Attend ing Provid er: MIRELLA KEMP Referr ing Provid er: MIRELLA KEMP Admitt ing Provid er: MIRELLA KEMP [email or web address] [facility] - [facility] [address] [place], [address], 04/05/2023 08:15:45 01/16/20 24 11/11/2023 PET-C T, skull base to mid-t high scan No observ ation record ed. [facility] ([facility]) [address] [facility], [place], [address], 01/20/2024 11:35:25 06/02/19 25 06/01/2024 CT, chest , w/o contr ast No observ ation record ed. [address], [place], [address], 06/04/2024 15:30:09 Result Notes Documentation Provider Name and Address Organization Details Recorded Time Ct, Chest, W/o Contrast : [facility] [address] [place] [address] Name: ROBERTO TOUSSAINT Exam Date: 03/25/2023 : 1950 Age 72 Gender: M Physician: JUSTO VU Facility: [facility] Facility HSV: Outpatient Exam: CT CHEST W/O [...] Thank you for referring ROBERTO TOUSSAINT to [facility]. Legally authenticated by POPE TIFFANY Collins 2023-03-25 10:48:47 CC'ed Logic: Ordering Provider: MIRELLA KEMP Attending Provider: MIRELLA KEMP Referring Provider: MIRELLA KEMP Admitting Provider: MIRELLA VU MD [address] 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 An[place] 4 10:52:11 Chronic renal failure 25050617 Active 2022 Tefanie Saulo null, [place] 4 10:52:11 Heart failure 35469548 Active 2022 Anabella vyas, [place] 4 10:52:11 Diastolic dysfunction 5050883 Active 2022 Anabella [place] 4 10:52:11 Anemia 842860620 Active 2022 An[place] 4 10:52:11 Acute stroke 3674318810224 04 Active 2022 Anabella [place] 4 10:52:11 Disease of liver 249574866 Active 2022 Anabella [place] 4 10:52:11 Hypercholes terolemia 59747646 Active 2022 Anabella vyas[place] 4 10:52:11 Gastroesoph ageal reflux disease 800009277 Active 2022 Anabella [place] 4 10:52:11 Kidney stone 62761530 Active 2022 An[place] 4 10:52:11 Glaucoma 95879643 Active 2022 Anabella [place] 4 10:52:11 Arthritis 5453478 Active 2022 Anabella [place] 4 10:52:11 Hypertensiv e disorder 84398948 Active 2022 Anabella [place] 4 10:52:11 Problem Notes Documentation Provider Name and Address Organization Details Recorded Time 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 Danielle Ba lilliamSHAREE [facility] & [place] 04/04/2024 07:14:40 Procedures Surgical History Date Name Laterality Status Provider Name and Address Organization Details Recorded Time 06/10/19 23 Cystoscopy-Male completed Venkatesh Hartley Jr, MD [address] [place] [address], [address], [place], [address], SHAREE [facility] [place] 06/09/2022 16:55:32 ureteroscopy completed Anabella TOLLIVER [facility] [place] 06/09/2022 13:23:50 Knee arthroscopy/surg frederick completed Anabella Vernon SHAREE [facility] [place] 06/09/2022 13:23:58 Imaging Results None recorded. Procedure Notes None recorded. Medical Equipment None Reported. Allergies Allergen ID Allergen Name Allergen Category Reaction Reaction Severity Criticality Documentation Date Start Date Code Code System Note Provider Name and Address Organization Details Recorded Time 207740 No known allergy (situatio n) Not available Not available Not available Not available 03/23/2023 [id number] SNOMED Anabella vyas [facility] [place] 10:51:22 No known drug allergies Medications Name [...] 108 (90 Base) MCG/ACT d ose:0.0 route:IN [facility] starla quency:[place] N active Not Available Not Available No [...] day by oral route for 30 days. 2024 active Not Available Not Available Not Avai lable midazolam 1 mg/mL injection solution 2 mg [...] Last Updated DateTime 03/23/2023 97.9 [degF] Anabella Mendosa LPNT - [facility] & [place] 03/23/2023 10:51:14 Date Recorded Body temperature Body height Body mass index (BMI) Body weight Provider Name and Address Organization Details Last Updated DateTime 04/29/2023 97.9 [degF] 182.88 cm 33.2 kg/m2 933921.13 g Anabella HUNTER [facility] & [place] 04/29/2023 10:18:52 Date Recorded Body height Body mass index (BMI) Body weight Body temperature Provider Name and Address Organization Details Last Updated DateTime 05/27/2023 182.88 cm 28.5 kg/m2 02562.4 g 97.3 [degF] Salud Dixno [place] - LPNT [facility] & [place] 05/27/2023 11:23:11 Date Recorded Body height Body mass index (BMI) Body weight Body temperature Provider Name and Address Organization Details Last Updated DateTime 11/23/2023 182.88 cm 28.5 kg/m2 42096.4 g 97.7 [degF] Anabella Vernon [place] - LPNT [facility] & [place] 11/23/2023 09:14:40 Date Recorded Body temperature Provider Name a nd Address Organization Details Last Updated DateTime 01/28/2023 97.9 [degF] Anabella Vernon [place] - LPNT - [facility] & [place] 01/28/2023 13:10:38 Social History None recorded. Functional Status Question Answer Note LastModified by Organization D etails LastModified Time What is your level of alcohol consumption? None [email or web address] Information not available 06/02/2022 Mental Status None recorded. Family History Relationship Description Onset Age of this Age Resolved Age Notes LastModified by Organization Details LastModified Time Mother Family history unknown dec [email or web address] Not available 2022 13:23:21 Sister Family history unknown x3 dec [email or web address] Not available 2022 13:23:21 Brother Family history unknown Not available 2022 13:23:21 Father Malignant neoplastic disease dec [email or web address] Not available 2022 13:23:30 Medical History No medical history recorded. Past Encounters Encounter ID Performer Location Encounter Start Date Encounter Closed Date Diagnosis/Indication Diagnosis SNOMED-CT Code Diagnosis ICD10 Code Diagnosis Note [id number] Venkatesh Hartley Jr, MD [facility] [address] [address] 06/09/2022 13:36:19 06/09/2022 15:11:25 Retention of urine 324903682 R33.9 71-year-ol d male with multiple medical [...] cardiologi st who is Dr. Dodge in [place]. If he is deemed a reasonable candidate we will set him up for TURP. [id number] Venkatesh Hartley Jr, MD [facility] [address] [address] 01/28/2023 12:36:30 01/28/2023 13:36:01 Incomplete emptying of urinary bladder due to benign prostatic hypertrophy [id number] 37432 N40.1 patient with urinary retention. His retention has been managed with a Jason catheter now for several months. States it is being changed on a monthly basis. Cardiac clearance was recently given per Dr. Nain bower as office at [facility]. Patient is not a great surgical candidate. He is on Xarelto. His cardiologi st has deemed him a reasonable surgical candidate. We will get a preop clearance from anesthesio logist at [facility]. We will stop his blood thinners prior to his TURP. We will start him on finasterid e today to help decrease any possible prostate bleeding. [id number] Ven[facility]atesh Hart[facility] Jr, MD [facility] [address] [address] 03/23/2023 10:46:37 03/23/2023 11:42:10 Incomplete emptying of urinary bladder due to benign prostatic hypertrophy [id number] 66127 N40.1 patient with history of urinary retention secondary to prostate enlargemen t. He underwent a TURP at [facility] on February 18. He returns today with [...] for the prolonged catheteriz ations and removal. [id number] Venkatesh Hartley Jr, MD [facility]rology [address] [address] 04/29/2023 10:18:10 04/29/2023 11:38:41 Recurrent urinary tract infection 146361052 N39.0 Patient with urinary symptoms of frequency, urgency and hematuria. His urine appears infected. We will culture the urine and patient placed on a course of cefdinir today. He will follow up in 1 month. Incomplete emptying of urinary bladder due to benign prostatic hypertrophy [id number] 97717 N40.1 patient with history of urinary retention secondary to prostate enlargemen t. He underwent a TURP at [facility] on February 18. patient with complaints of frequency, urgency and gross hematuria. He has evidence of a urinary tract infection which may be contributi ng to his symptoms. We also discussed that hematuria, urgency and frequency could be normal sequela of his TURP. Patient also takes Xarelto for other medical issues. [id number] Venkatesh Hartley Jr, [facility] [place] [id number] 05/27/2023 11:21:35 05/27/2023 12:30:45 Incomplete emptying of urinary bladder due to benign prostatic hypertrophy [id number] 14872 N40.1 patient with history of urinary retention secondary to prostate enlargemen t. He underwent a TURP at [facility] on February 18. He states he is voiding better and he is now ambulatory but PVR still elevated at 671 cc. Recurrent urinary tract infection [id number] N39.0 Pt with uti's due to incomplete emptying. To increase fluids and observe timed voiding. [id number] Venkatesh Hartley Jr, MD [facility] [address] [address] 11/23/2023 09:08:44 11/23/2023 09:50:37 Incomplete emptying of urinary bladder due to benign prostatic hypertrophy [id number] 14321 N40.1 patient with history of urinary retention secondary to prostate enlargemen t. He underwent a TURP at [facility] on February 18. He states he is voiding better and he is now ambulatory but PVR still elevated due to bladder decompensa tion. Recurrent urinary tract infection 411183978 N39.0 Pt with uti's due to incomplete emptying. To increase fluids and observe timed voiding. Health Concerns Section Related Observation LastModified by Organization Detai ls LastModified Time None Recorded Concern Status LastModified by Organization Details LastModified Time None Recorded Advance Directives Directive None Recorded Payers Insurance Date Sequence Insurance Name Policy Number Policy Hawkins Covered Member ID Hawkins Member ID Guarantor Name 09/28/2024 2 MEDICAID-[facility] [employer] - FFS/TRADITIO NAL Roberto Toussaint [id number] Roberto Toussaint 09/28/2024 1 [place] Roberto Toussaint [id number] Roberto Toussaint 11/23/2023 2 MEDICAID-[facility] [employer] - FFS/TRADITIO NAL Roberto Toussaint [id number] Roberto Toussaint Notes Date Note Type Note [...] recommended. 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 He continues on Xarelto. He is legally blind. [place] Venkatesh Hartley Jr, MD [address] [place] [address], [address], [place], [address], [facility] - [place] & [place] 01/28/2023 14:59:58 03/23/2023 text/html patient is a 72-year-old black male with history of urinary retention. 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 There was a large median lobe that was resected. Patient's prostate was very large and resected in stages. Pathology from the prostatic chips showed no evidence of cancer. Patient returns today for a voiding trial but should have been scheduled for a voiding trial 2-3 weeks ago. He is had the same catheter in since discharge. Venkatesh Hartley Jr, MD [address], [address], [place], [address], [facility] 03/23/2023 12:37:30 04/29/2023 text/html Patient is a 72-year-old black male with a history of urinary retention. He underwent a TURP on February 18, 2023 at [facility]. Patient had a very large median lobe [...] 699 cc. Venkatesh Hartley Jr, MD [address], [address], [place], [address], [facility] & [place] 04/29/2023 16:45:15 05/27/2023 text/html Pt with h/o [...] the Cefdinir. Venkatesh Hartley Jr, MD [address], [address], [place], [address], [facility] 08/21/2023 23:04:36 11/23/2023 text/html Patient is a [...] as a result. Venkatesh Hartley Jr, MD [address] [place] [address], [address], [place], [address], [facility] - [place] - [place] & [place] 11/23/2023 12:51:08
--- OUTSIDE RECORDS SUMMARY | 2024-10-03 10:25 | XMS_ITS | Encounter Summary ---
Author Organization Healthcare Address [address] [place] [address] Care Team Providers Care Rehabilitation Psychologist Name Role Phone Edi Chase MD Primary Care Provider [phone] Sam Sanchez MD Unavailable [phone] Cayetano Cannon MD Unavailable [phone] Encounter Details Date Type Department Care Team (Late st Contact Info) Description 12/14/2023 Orders Only External Location [address] [place] [phone] Cedric Hinton MD [address] [...] [facility] [address] [place] [address] 10/26/2024 1:20 PM EDT Office Visit [facility] [address] [place] [address] Florentin Tillman MD [address] [place] [address] documented as of this encounter Procedures Procedure [...] documented as of this encounter Care Teams Rehabilitation Psychologist Relationship Specialty Start Date End Date Edi Chase MD [address] [place] [address] PCP - General 03/14/20 Sam Sanchez MD [address] [place] [address] Consulting Physician Pulmonary Disease 08/11/22 aCyetano Cannon MD [address] [facility] [address] [place] [address] Referring Physician 08/11/22 documented as of this encounter
--- OUTSIDE RECORDS SUMMARY | 2024-10-03 10:25 | XMS_ITS | Encounter Summary ---
Author Organization Healthcare Address [address] [place] [address] Care Team Providers Care Fishing Boat Captain Name Role Phone Edi Chase MD Primary Care Provider [phone] Sam Sanchez MD Unavailable [phone] Cayetano Cannon MD Unavailable [phone] Encounter Details Date Type Department Care Team (Late st Contact Info) Description 12/12/2023 Orders Only External Location [address] [place] [id number] Provider, External Social History Tobacco Use Types [...] AM EDT Appointment [facility] H Neurophysiology [address] [facility] Room [address] [place] [address] 10/26/2024 1:20 PM EDT Office Visit [facility] [address] [place] [address] Florentin Tillman MD [address] [place] [address] documented as of this encounter Procedures Procedure [...] documented as of this encounter Care Teams Fishing Boat Captain Relationship Specialty Start Date End Date Edi Chase MD [address] [place] [address] PCP - General 03/14/20 Sam Sanchez MD [address] [place] [address] Consulting Physician Pulmonary Disease 08/11/22 Cayetano Cannon MD [address] [place] [address] Referring Physician 08/11/22 documented as of this encounter
--- OUTSIDE RECORDS SUMMARY | 2024-10-03 10:25 | XMS_ITS | Clinical Summary ---
Author Organization Healthcare Address [address] [place] [address] Care Team Providers Care Game Engineer Name Role Phone Edi Chase MD Primary Care Provider [phone] Sam Sanchez MD Unavailable [phone] Cayetano Cannon MD Unavailable [phone] Allergies No known active allergies Medications [...] (one) time each day. Active HYDROcodone-acet aminophen ([place]) 5-325 MG tablet Take 1 tablet (5 [...] capsule by mouth 2 times a day. Active hydroCHLOROthiaz alexander (HYDRODiuril) 25 MG tablet Take 1 tablet by mouth daily. Active Senna-Time 8.6 MG tablet Take 2 tablets by mouth daily. Active Lokelma 10 g packet Active Ventolin HFA 108 (90 Base) MCG/ACT inhaler Active metoprolol succinate XL (Toprol-XL) 100 MG 24 hr tablet Take 1 tablet by mouth daily. Active Active Problems Problem Noted Date Diagnosed [...] Team Description 08/27/2024 1:00 PM EDT Consult [facility] [address], [place] [address] Cuong Catherine MD Dizziness on standing (Primary Dx); Nonintractable episodic headache, unspecified headache type; Cerebrovascular accident (CVA), unspecified mechanism (CMS/HCC) 08/27/2024 Travel 08/22/2024 Telephone [facility] [address], [address] [place] [address] Cuong Catherine MD from Last 3 Months [...] answer 12/26/2023 How often do you attend [facility] or [facility] services? Patient unable to answer 12/26/2023 Do you belong to any clubs o r organizations such as anglican groups, unions, fraternal or athletic groups, or [...] Recorded Patient Health Questionnaire-2 Score 1 08/27/2024 [facility] of Occupat ional Health - Occupational Stress [...] Recorded In the past 12 months has e electric, gas, oil, or water company [...] AM EDT Appointment PAV H Neurophysiology [address] [facility] [address] [address] 10/26/2024 1:20 PM EDT Office Visit [facility] [address] [place] [address] Florentin Tillman MD [address] [place] [address] Health Maintenance Due Date Last Done Comments [facility]-Medicare Annual Wellness (AWV) 1950 [facility]-/Child/Adol SDOH Screenings 1950 [facility]-DTaP,Tdap,and Td Vaccines (1 - Tdap) 08/31/1967 [facility]-Pneumococcal Vaccine: 50+ Years (1 of 2 - PCV) 08/31/1967 [facility]-Zoster Vaccines (1 of 2) 08/31/1967 [id number] Vaccine (3 - Pfizer risk series) 05/10/2020 [...] Antibody Negative Negative 12/23/2023 6:55 PM EDT [facility] Blood Venous blood specimen / Unknown Venipuncture / Unknown 12/23/2023 5:39 PM EDT 12/23/2023 6:04 PM EDT us Med Lyn MD LAB BLOOD ORDERABLES Final Result [facility] [address] [place] [address] * (ABNORMAL) Hemoglobin A1c (12/23/2023 5:39 PM EDT) Hemoglobin A1c 6.3(H) <5.7 % 12/24/2023 12:22 AM EDT [facility] Blood Venous blood specimen / Unknown Venipuncture / Unknown 12/23/2023 5:39 PM EDT 12/23/2023 5:55 PM EDT Narrative [facility] - 12/24/2023 12:22 AM EDT HA1C Interpretive Data: Diagnosis of Diabetes: Diabetic > or = 6.5% Pre-diabetic 5.7 to 6.4% Non-diabetic < or = 5.6% Glycemic Targets for Type I and Type II Diabetics: Non- Adults <7.0% Adults <6.0% Children and Adolescents <7.5% Source: [place] [employer]. Standards of medical care in diabetes,2017. Diabetes Care.2017:40 (suppl 1):S1-S135. HbA1c assay performed by an ion-exchange chromatography method that is certified traceable to the DCCT. 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 Yes Care Teams Game Engineer Relationship Specialty Start Date End Date Edi Chase MD [address] [place] [address] PCP - General 03/14/20 Sam Sanchez MD [address] [place] [address] Consulting Physician Pulmonary Disease 08/11/22 Cayetano Cannon MD [address] [facility] [address] [place] [address] Referring Physician 08/11/22
[2024-10-03] MEDS: SODIUM CHLORIDE 0.9% 10ML SYR (RAD ONLY) 10 ML IV (10:53)
[2024-10-03] MEDS: IOPAMIDOL-370 (76%);100ML BOTTLE 75 ML IV (10:53)
--- NOTE | 2024-10-03 13:00 | CT_ITS ---
FINAL REPORT TECHNIQUE: After the administration of intravenous contrast, axial images through the chest were performed by computed tomography.This study was performed with techniques to keep radiation doses as low as reasonably achievable, (ALARA). Individualized dose reduction techniques using automated exposure control or adjustment of mA and/or kV according to the patient''s size were employed. CLINICAL HISTORY: Lung Cancer surveillance COMPARISON: CTA chest 09/13/[address] chest 06/01/2024 FINDINGS: There is mild adenopathy within the left prevascular space and AP window. Confluent nodes measured on image 27 of series 4 in the prevascular space are 50 x 12 mm and previously 43 x 12 mm. No adenopathy in the right mediastinum. Mild gynecomastia is noted. The heart size is normal. There is no pericardial or pleural effusion. Rounded mass in the left upper lobe measures 43 x 35 mm and previously measured 35 x 31 mm. Opacity in the periphery is most likely postobstructive change and is less pronounced from the prior exam. The right lung is clear. IMPRESSION: Enlargement of left upper lobe mass. Persistent adjacent airspace disease is likely postobstructive pneumonia, mildly improved. Mild adenopathy is slightly worse. Reviewed, Interpreted and Dictated by Onesimo Velazquez MD Transcribed by Sayra Bliss Authenticated and . [facility]
--- NOTE | 2024-10-03 13:00 | CT_ITS ---
FINAL REPORT TECHNIQUE: Oral and IV contrast enhanced exam This study was performed with techniques to keep radiation doses as low as reasonably achievable, (ALARA). Individualized dose reduction techniques using automated exposure control or adjustment of mA and/or kV according to the patient''s size were employed. CLINICAL HISTORY: Lung Cancer COMPARISON: 12/23/2023 FINDINGS: Abdomen: Numerous bilateral renal cysts are compatible with polycystic renal disease. There is bilateral nephrolithiasis without obstructing stone disease. No evidence of hydronephrosis. There are numerous subcentimeter hepatic cysts. Remainder of the solid abdominal organs are normal. The patient is status post cholecystectomy. No evidence of bowel obstruction. There is a stable midline abdominal wall hernia containing small bowel. There is also a separate supraumbilical hernia containing small bowel. Neither hernia or associated with incarceration or obstruction. Pelvis: The appendix is not identified. There is nonspecific bladder wall thickening. However, the previously seen inflammatory changes have resolved surrounding the bladder. A Jason catheter is present. IMPRESSION: No acute findings with resolution of changes of cystitis since previous exam. Polycystic renal disease. Nonobstructing bilateral renal stones. Stable abdominal wall hernias without evidence of bowel obstruction. Reviewed, Interpreted and Dictated by Onesimo Velazquez MD Transcribed by Sayra Bliss Authenticated and [facility]
== END 2024-10-03 23:59 | disposition home or self-care (01) ==
LOC: RAD 10:22
PROVIDERS: PCP Family Medicine; Visit Provider Internal Medicine Medical Oncology
DX: C34.12 Malignant neoplasm of upper lobe, left bronchus or lung (principal); Q61.3 Polycystic kidney, unspecified; N20.0 Calculus of kidney; K43.9 Ventral hernia without obstruction or gangrene; N30.90 Cystitis, unspecified without hematuria; R91.8 Other nonspecific abnormal finding of lung field; R59.9 Enlarged lymph nodes, unspecified
CPT/HCPCS: 71260; 74177; Q9967

== ENCOUNTER 2024-10-17 09:43 | Outpatient (CLI) | payer MEDICARE, MEDICAID, SELFPAY ==
--- OUTSIDE RECORDS SUMMARY | 2024-08-27 13:00 | XMS_ITS | Encounter Summary ---
Author Organization [facility] Address [address] [place] [address] Care Team Providers Care Soaking Tank Worker Name Role Phone Edi Chase MD Primary Care Provider [phone] Sam Sanchez MD Unavailable [phone] Cayetano Cannon MD Unavailable [phone] Reason for Referral * Other Medical (Routine) - Closed Specialty Diagnoses / Procedures Referred By José campbell Referred To Contact Neurology Diagnoses Dizziness on standing Procedures EEG Jyoti Tyler MD [address] [facility] [address] [place] [address] Phone: tel: fax: Referral ID Status Reason Start Date Expiration Date V isits Requested Visits Authorized [id number] Closed Specialty Services Required 08/27/2024 02/26/2026 1 1 Reason for Visit * Consultation (Routine) - Closed Specialty Diagnoses / Procedures Referred By José campbell Referred To Contact Neurology Diagnoses Syncope and collapse Malignant neoplasm of unspecified part of unspecified bronchus or lung (CMS/HCC) Miriam Baugh, MACHINE ADJUSTER LEADER CASE TRIM [address] [place] [address] Phone: tel: fax: Referral ID Status Reason Start Date Expiration Date V isits Requested Visits Authorized [id number] Closed Specialty Services Required 01/24/2024 07/25/2025 1 1 Encounter Details Date Type Department Care Team (Late st Contact Info) Description 08/27/2024 1:00 PM EDT Consult [place] [facility] [address] [place] [address] Cuong Catherine MD [address] [place] [address] Dizziness on standing (Primary Dx); Nonintractable episodic [...] How often do you attend chur or taoism services? Patient unable to answer 12/26/2023 Do you belong to any clubs o r organizations such as sabianist groups, unions, fraternal or athletic groups, or [...] Recorded Patient Health Questionnaire-2 Score 1 08/27/2024 [facility] - Occupational Stress Questionnaire Answer Date [...] to sleep or slept in a senior living (including now)? Patient unable to answer 12/26/2023 [...] for lung cancer who presents to the [facility] as a new patient today with/for headaches and dizzy spells. HPI Referral placed by Miriam Baugh APRN for evaluation of syncope and collapse. Pt lives in a alf and presents today with care nurse. Patient's [...] Reflexes: 2+ throughout Coordination: no ataxia with wpqber-rp-wyhg testing Proprioception: intact in upper extremities bilaterally [...] orthostatic hypotension. He should follow with his conventional machinist to obtain orthostatic vital signs and consider [...] 3 months Counseling Documentation: The patient and die designer apprentice was counseled regarding impressions. Education provided was verbal counseling. Additional time was spent in care coordination including medical record review. The total time of encounter was 100 minutes. . Cuong Catherine MD, PGY-2, Neurology Secure Chat/Pager: [phone] 08/27/2024 5:26 PM Dictation software disclaimer: Parts [...] After use, clean tip and replace cap. Yliuetdclut-Ikulamjxt-Rdtxls (Trelegy Ellipta) 100-62.5-25 MCG/ACT aerosol powder Inhale 1 puff 1 (one) time each day. gabapentin (Neurontin) 100 MG capsule Take 1 capsule by mouth 2 times a day. hydroCHLOROthiazide (HYDRODiuril) 25 MG tablet Take 1 tablet by mouth daily. HYDROcodone-acetaminophen ([place]) 5-325 MG tablet Take 1 tablet (5 [...] We discussed patient seeing eitherhis PCP or conventional machinist to test orthostatic vitals and adjust medications [...] Description 10/26/2024 1:20 PM EDT Office Visit [facility] [address] [address] Florentin Tillman MD [address] [place] [address] documented as of this encounter [...] After use, clean tip and replace cap. Qkzuyxrfzkv-Gpuardsro-Tbysot (Trelegy Ellipta) 100-62.5-25 MCG/ACT aerosol powder Inhale [...] Take 1 tablet by mouth daily. HYDROcodone-acetaminophen ([place]) 5-325 MG tablet Take 1 tablet (5 [...] documented as of this encounter Care Teams Soaking Tank Worker Relationship Specialty Start Date End Date Edi Chase MD [address] [place] [address] PCP - General 03/14/20 Sam Sanchez MD [address] [place] [address] Consulting Physician Pulmonary Disease 08/11/22 Cayetano Cannon MD [address] [facility] [address] [place] [address] Referring Physician 08/11/22 documented as of this encounter
--- OUTSIDE RECORDS SUMMARY | 2024-10-16 07:56 | XMS_ITS | Encounter Summary ---
Author Organization [facility] Address [address] [place] [address] Care Team Providers Care Row Boss Name Role Phone Edi Chase MD Primary Care Provider [phone] Sam Sanchez MD Unavailable [phone] Cayetano Cannon MD Unavailable [phone] Reason for Referral * Other Medical (Routine) - Closed Specialty Diagnoses / Procedures Referred By José campbell Referred To Contact Neurology Diagnoses Dizziness on standing Procedures EEG Jyoti Tyler MD [address] [address] Phone: tel: fax: Referral ID Status Reason Start Date Expiration Date V isits Requested Visits Authorized [id number] Closed Specialty Services Required 08/27/2024 02/26/2026 1 1 Reason for Visit * Other Medical (Routine) - Closed Specialty Diagnoses / Procedures Referred By José campbell Referred To Contact Neurology Diagnoses Dizziness on standing Procedures EEG Jyoti Tyler MD [address] [address] Phone: tel: fax: Referral ID Status Reason Start Date Expiration Date V isits Requested Visits Authorized [id number] Closed Specialty Services Required 08/27/2024 02/26/2026 1 1 Encounter Details Date Type Department Care Team (Latest Contact Info) Description 10/16/2024 7:56 AM EDT - 10/16/2024 11:59 PM EDT Hospital Encounter [facility] Neuro[facility]iology [address] [place] [address] Dizziness on standing Discharge Disposition: Home or [...] answer 12/26/2023 How often do you attend [facility] or shinto services? Patient unable to answer 12/26/2023 Do you belong to any clubs o r organizations such as episcopal groups, unions, fraternal or athletic groups, or [...] Score 1 08/27/2024 [facility] - Occupational Stress Questionnaire Answer Date Recorded [...] place to sleep or slept in a longterm (including now)? Patient unable to answer 12/26/2023 [...] tablet by mouth daily. 08/27/2024 HYDROcodone-aceta minophen ([place]) 5-325 MG tablet Take 1 tablet (5 [...] Description 10/26/2024 1:20 PM EDT Office Visit [facility] [address] [place] [address] Florentin Tillman MD [address] [place] [address] documented as of this encounter Procedures Procedure [...] After use, clean tip and replace cap. Kmdbnxlostr-Hxwdujxcs-Dktiml (Trelegy Ellipta) 100-62.5-25 MCG/ACT aerosol powder Inhale [...] Take 1 tablet by mouth daily. HYDROcodone-acetaminophen ([place]) 5-325 MG tablet Take 1 tablet (5 [...] documented as of this encounter Care Teams Row Boss Relationship Specialty Start Date End Date Edi Chase MD [address] [place] [address] PCP - General 03/14/20 Sam Sanchez MD [address] [place] [address] Consulting Physician Pulmonary Disease 08/11/22 Cayetano Cannon MD 1210 [facility] [address] [place] [address] Referring Physician 08/11/22 documented as of this encounter
--- OUTSIDE RECORDS SUMMARY | 2024-10-17 09:45 | XMS_ITS | Clinical Summary ---
Author Organization [employer] [facility] Address [address] [place] [address] Phone Care Team Providers Care Web Development Manager Name Role Phone Gala Osborne APRN Primary Care Physician [phone] [ ] Conditions or Problems Problem Name Problem Code Onset Date Status Entry Date Provider Comment Standard Description Annotate HEMATURIA NOS R31.9 (ICD-10-CM ) 05/11 Active 05/11 Gala Furnclayton AVILA Hematuria, unspecified ABNORMAL ELECTROCARDIO GRAM 900333452 (SNOMED CT) 05/11 Active 05/11 Gala Furnish WELCOME DESK AGENT Electrocardiogram abnormal BLINDNESS, BILATERAL 295360201 (SNOMED CT) 05/11 Active 05/11 Gala Furnclayton WELCOME DESK AGENT Blindness - both eyes HYPERTENSION 09466609 (SNOMED CT) 05/11 Active 05/11 Gala Furnish WELCOME DESK AGENT Hypertensive disorder FLANK PAIN, RIGHT 293391659 (SNOMED CT) 05/11 Active 05/11 Gala Furnish WELCOME DESK AGENT Flank pain CHEST PAIN NOS 46821822 (SNOMED CT) 05/11 Active 05/11 Gala Furnish WELCOME DESK AGENT Chest pain Medications Medication Instructions Start Date Stop Date Generic Name NDC Provider HYDROCODONE-ACET AMINOPHEN 5-325 MG TABS 1-2 po q 6 hours prn pain HYDROCODONE-ACET AMINOPHEN 54110152980 Gala Furnclayton WELCOME DESK AGENT CIPROFLOXACIN HCL 500 MG TABS Take 1 tablet by mouth twice a day CIPROFLOXACIN HCL 25028918375 Gala Furnclayton WELCOME DESK AGENT Medications Administered No information available. Allergies, Adverse [...] Procedures Code Procedure Name Date Entry Date CPT-68011 ECG; interpretation and report only (Medicare use [id number] [id number]) CPT-70914 Urine Dip Auto CPT-90443 CMP (Outside Lab) Pharm Stress Test Pharmacologic Stress Test CPT-08715 Urine Culture (Outside Lab) Vital Signs Date [...]
--- OUTSIDE RECORDS SUMMARY | 2024-10-17 09:46 | XMS_ITS | Encounter Summary ---
Author Organization [facility] Address [address] [place] [address] Care Team Providers Care Call Worker Name Role Phone Edi Chase MD Primary Care Provider [phone] Sam Sanchez MD Unavailable [phone] Cayetano Cannon MD Unavailable [phone] Encounter Details Date Type Department Care Team (Late st Contact Info) Description 12/14/2023 Orders Only External Location [address] [place] [address] Cedric Hinton MD [address] [place] [id number] Social History Tobacco Use Types Packs/Day Years [...] Description 10/26/2024 1:20 PM EDT Office Visit [facility] [address] [place] [address] Florentin Tillman MD [address] [place] [address] documented as of this encounter Procedures Procedure [...] documented as of this encounter Care Teams Call Worker Relationship Specialty Start Date End Date Edi Chase MD [address] [place] [address] PCP - General 03/14/20 Sam Sanchez MD [address] [place] [address] Consulting Physician Pulmonary Disease 08/11/22 Cayetano Cannon MD [address] [place] [address] Referring Physician 08/11/22 documented as of this encounter
--- OUTSIDE RECORDS SUMMARY | 2024-10-17 09:46 | XMS_ITS | Encounter Summary ---
Author Organization Healthcare Address [address] [place] [address] Care Team Providers Care Security Intern Name Role Phone Edi Chase MD Primary Care Provider [phone] Sam Sanchez MD Unavailable [phone] Cayetano Cannon MD Unavailable [phone] Encounter Details Date Type Department Care Team ([facility] st Contact Info) Description 01/05/2024 Orders Only External Location [address] [place] [address] Cedric Hinton MD [address] [place] [address] Social History Tobacco Use Types Packs/Day Years [...] often do you attend chur ch or sabianist services? Patient unable to answer [...] one occasion? Patient unable to answer 12/26/2023 [facility] - Occupational Stress Questionnaire Answer [...] Description 10/26/2024 1:20 PM EDT Office Visit [place] [id number] [facility] [address] [place] [address] Florentin Tillman MD [address] [place] [address] documented as of this encounter Procedures [...] documented as of this encounter Care Teams Security Intern Relationship Specialty Start Date End Date Edi Chase MD [address] [place] [address] PCP - General 03/14/20 Sam Sanchez MD [address] [place] [address] Consulting Physician Pulmonary Disease 08/11/22 Cayetano Cannon MD [address] [facility] [address] [place], [place] [address] Referring Physician 08/11/22 documented as of this encounter
--- OUTSIDE RECORDS SUMMARY | 2024-10-17 09:46 | XMS_ITS | Encounter Summary ---
Author Organization Healthcare Address [address] [place] [address] Care Team Providers Care Health Club Manager Name Role Phone Edi Chase MD Primary Care Provider [phone] Sam Sanchez MD Unavailable [phone] Cayetano Cannon MD Unavailable [phone] Encounter Details Date Type Department Care Team (Late st Contact Info) Description 12/12/2023 Orders Only External Location [address] [place] [address] Provider, External Social History Tobacco Use Types [...] Department Care Team (Late Contact Info) Description 10/26/2024 1:20 PM EDT Office Visit [facility] [address] [place] [address] Florentin Tillman MD [address] [place] [address] documented as of this encounter Procedures Procedure [...] as of this encounter Care Teams Health Club Manager Relationship Specialty Start Date End Date Edi Chase MD [address] [facility] [place] [address] PCP - General 03/14/20 Sam Sanchez MD [address] [place] [address] Consulting Physician Pulmonary Disease 08/11/22 Cayetano Cannon MD [address] [facility] [address] [place] [address] Referring Physician 08/11/22 documented as of this encounter
--- OUTSIDE RECORDS SUMMARY | 2024-10-17 09:46 | XMS_ITS | Encounter Summary ---
Author Organization [facility] Address [address] [place] [address] Care Team Providers Care Agile Test Lead Name Role Phone Edi Chase MD Primary Care Provider [phone] Sam Sanchez MD Unavailable [phone] Cayetano Cannon MD Unavailable [phone] Encounter Details Date Type Department Care Team (Late st Contact Info) Description 09/30/2022 Lab Requisition [facility] [address] [place] [address] Lyn Santana MD [address] [place] [address] Malignant neoplasm of upper lobe, left bronchus [...] Description 10/26/2024 1:20 PM EDT Office Visit [facility] [address] [place] [address] Florentin Tillman MD [address] [place] [address] documented as of this encounter Procedures Procedure Name Priority Date/Time Associated Diagnosis Comments AP MISCELLANEOUS LAB TEST (SO) Routine 09/08/2022 11:51 AM EDT Malignant neoplasm of upper lobe, left bronchus or lung (CMS/HCC) documented in this encounter Results * AP Miscellaneous Lab Test (09/08/2022 11:51 AM EDT) Test name OR Profile 10/15/2022 7:42 AM EDT [facility] Comment:[id number] A1 Test Result see scan 10/15/2022 7:42 AM EDT [facility] See Scanned Result 10/15/2022 7:42 AM EDT [facility] Tissue 09/08/2022 11:5 1 AM EDT 09/30/2022 2:24 PM EDT Lyn Santana MD LAB REF LAB BLOOD AND FLUID ORD Final Result [facility] documented in this encounter Visit [...] documented as of this encounter Care Teams Agile Test Lead Relationship Specialty Start Date End Date Edi Chase MD [address] [place] [address] PCP - General 03/14/20 Sam Sanchez MD [address] [place] [address] Consulting Physician Pulmonary Disease 08/11/22 Cayetano Cannon MD [address] [place] [address] Referring Physician 08/11/22 documented as of this encounter
--- OUTSIDE RECORDS SUMMARY | 2024-10-17 09:47 | XMS_ITS | Encounter Summary ---
Author Organization [facility] Address [address] [place] [address] Care Team Providers Care Pipe Wrapping Machine Operator Name Role Phone Edi Chase MD Primary Care Provider [phone] Sam Sanchez MD Unavailable [phone] Cayetano Cannon MD Unavailable [phone] Encounter Details Date Type Department Care Team (Latest Contact Info) Description 10/16/2024 Travel Social History Tobacco Use Types Packs/Day [...] How often do you attend chur or restorationist services? Patient unable to answer 12/26/2023 Do you belong to any clubs o r organizations such as orthodoxy groups, unions, fraternal or athletic groups, or [...] Recorded Patient Health Questionnaire-2 Score 1 08/27/2024 [facility] - Occupational Stress Questionnaire Answer [...] Description 10/26/2024 1:20 PM EDT Office Visit [facility] [address] [place] [address] Florentin Tillman MD [address] [place] [address] documented as of this encounter [...] documented as of this encounter Care Teams Pipe Wrapping Machine Operator Relationship Specialty Start Date End Date Edi Chase MD [address] [facility] [place] [address] PCP - General 03/14/20 Sam Sanchez MD [address] [place] [address] Consulting Physician Pulmonary Disease 08/11/22 Cayetano Cannon MD [address] [place] [address] Referring Physician 08/11/22 documented as of this encounter
--- OUTSIDE RECORDS SUMMARY | 2024-10-17 09:47 | XMS_ITS | Clinical Summary ---
Author Organization Healthcare Address [address] [place] [address] Care Team Providers Care Die Casting Supervisor Name Role Phone Edi Chase MD Primary Care Provider [phone] Sam Sanchez MD Unavailable [phone] Cayetano Cannon MD Unavailable [phone] Allergies No known active allergies Medications [...] (one) time each day. Active HYDROcodone-acet aminophen ([place]) 5-325 MG tablet Take 1 tablet (5 [...] Encounters Date Type Department Care Team Description 10/16/2024 7:56 AM EDT - 10/16/2024 11:59 PM EDT Hospital Encounter [facility] [address] [place] [address] Dizziness on standing Discharge Disposition: Home or Self Care 10/16/2024 Travel 08/27/2024 1:00 PM EDT Consult [place] [facility] [address] [place] [address] Cuong Catherine MD Dizziness on standing (Primary Dx); Nonintractable episodic headache, unspecified headache type; Cerebrovascular accident (CVA), unspecified mechanism (CMS/HCC) 08/27/2024 Travel 08/22/2024 Telephone [place] [facility] [address] [place] [address] Cuong Catherine MD from Last [...] Cigarettes 2 47 1 971 - 2017 Passive Smoke Exposure: Never Smokeless [...] answer 12/26/2023 How often do you attend [facility] or taoism services? Patient unable to [...] Recorded Patient Health Questionnaire-2 Score 1 08/27/2024 [facility] - Occupational [...] Recorded In the past 12 months has [employer], gas, oil, or water [employer] threatened to shut off services in your [...] Description 10/26/2024 1:20 PM EDT Office Visit [facility] [address] [place] [address] Florentin Tillman MD [address] [place] [address] Health Maintenance Due Date Last Done Comments [facility]-Medicare Annual Wellness (AWV) 1950 [facility]-/Child/Adol SDOH Screenings 1950 [facility]-DTaP,Tdap,and Td Vaccines (1 - Tdap) 08/31/1967 [facility]-Pneumococcal Vaccine: 50+ Years (1 of 2 - PCV) 08/31/1967 [facility]-Zoster Vaccines (1 of 2) 08/31/1967 [facility]-[id number]-96 Vaccine (3 - Pfizer risk series) 05/10/2020 [...] 10/16/2024 9:00 AM EDT Dizziness on standing HEPATITIS C ANTIBODY - ED W/REFLEX TO HCV QUANT PCR STAT 12/23/2023 5:39 PM EDT HEMOGLOBIN A1C STAT Add-on 12/23/2023 5:39 PM EDT from Last 3 Months or Most Recently Relevant to Health Maintenance Results * EEG (10/16/2024 9:00 AM EDT) [...] After use, clean tip and replace cap. Kuftcdpwquv-Slvwpszsy-Rxleyk (Trelegy Ellipta) 100-62.5-25 MCG/ACT aerosol powder Inhale [...] Take 1 tablet by mouth daily. HYDROcodone-acetaminophen ([place]) 5-325 MG tablet Take 1 tablet (5 [...] 12 hours or as directed by MD. Alba 10 g packet loperamide (Imodium) 2 MG [...] No current facility-administered medications for this encounter. Jyoti Tyler MD NEUROLOGY ORDERABLES Final R esult * Hepatitis C Antibody - ED (12/23/2023 5:39 PM EDT) Hepatitis C Antibody Negative Negative 12/23/2023 6:55 PM EDT [facility] Blood Venous blood specimen / Unknown Venipuncture / Unknown 12/23/2023 5:39 PM EDT 12/23/2023 6:04 PM EDT Med Lyn MD LAB BLOOD ORDERABLES Final Result [facility] [address] [place] [address] * (ABNORMAL) Hemoglobin A1c (12/23/2023 5:39 PM EDT) Hemoglobin A1c 6.3(H) <5.7 % 12/24/2023 12:22 AM EDT [facility] Blood Venous blood specimen / Unknown Venipuncture / Unknown 12/23/2023 5:39 PM EDT 12/23/2023 5:55 PM EDT Narrative [facility] - 12/24/2023 12:22 AM EDT HA1C Interpretive Data: Diagnosis of Diabetes: Diabetic > or = 6.5% Pre-diabetic 5.7 to 6.4% Non-diabetic < or = 5.6% Glycemic Targets for Type I and Type II Diabetics: Non- Adults <7.0% Adults <6.0% Children and Adolescents <7.5% Source: [place] Diabetes Association. Standards of medical care in diabetes,2017. Diabetes Care.2017:40 (suppl 1):S1-S135. HbA1c assay performed by an ion-exchange chromatography method that is certified traceable to the DCCT. 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 Yes Care Teams Die Casting Supervisor Relationship Specialty Start Date End Date Edi Chase MD [address] [place] [address] PCP - General 03/14/20 Sam Sanchez MD [address] [place] [address] Consulting Physician Pulmonary Disease 08/11/22 Cayetano Cannon MD [address] [facility] [address] [place] [address] Referring Physician 08/11/22
--- OUTSIDE RECORDS SUMMARY | 2024-10-17 09:47 | XMS_ITS | Encounter Summary ---
Author Organization Healthcare Address [address] [place] [address] Care Team Providers Care Shipping And Receiving Coordinator Name Role Phone Edi Chase MD Primary Care Provider [phone] Sam Sanchez MD Unavailable [phone] Cayetano Cannon MD Unavailable [phone] Encounter Details Date Type Department Care Team (Late st Contact Info) Description 12/26/2023 Lab Requisition [facility] [address] [place] [address] Amado Horton MD [address] [facility] [address] [place] [address] Encounter for general adult medical [...] How often do you attend chur or sabianism services? Patient unable to answer 12/26/2023 Do [...] one occasion? Patient unable to answer 12/26/2023 [facility] - Occupational Stress Questionnaire Answer Date Recorded [...] Author -1 12/26/2023 3:21 PM EDT Praveen Niar RN * Question Answer Date of Assessment [...] Description 10/26/2024 1:20 PM EDT Office Visit [facility] [address] [place] [address] Florentin Tillman MD [address] [place] [address] documented as of this encounter Procedures Procedure Name Priority Date/Time Associated Diagnosis Comments MULTI DRUG RESISTANCE TEST Routine 12/26/2023 2:00 PM EDT Encounter for general adult medical examination without abnormal findings documented in this encounter Results * Multi Drug Resistance Test (12/26/2023 2:00 PM EDT) Culture No growth at day 1 12/27/2023 12:24 PM EDT [facility] Swab (Nares and Brenda Rectal) 12/26/2023 2:00 PM EDT 12/26/2023 3:15 PM EDT us Amado Horton MD LAB MICROBIOLOGY - GEN ERAL ORDERABLES Final Result [facility] [address] [place] [address] documented in this encounter Visit Diagnoses Diagnosis [...] documented as of this encounter Care Teams Shipping And Receiving Coordinator Relationship Specialty Start Date End Date Edi Chase MD [address] [place] [address] PCP - General 03/14/20 Sam Sanchez MD [address] [place] [address] Consulting Physician Pulmonary Disease 08/11/22 Cayetano Cannon MD [address] [facility] [address] [place] [address] Referring Physician 08/11/22 documented as of this encounter
--- OUTSIDE RECORDS SUMMARY | 2024-10-17 09:47 | XMS_ITS | Encounter Summary ---
Author Organization [facility] Address [address] [place] [address] Care Team Providers Care Systems Security Analyst Name Role Phone Edi Chase MD Primary Care Provider [phone] Sam Sanchez MD Unavailable Cayetano Cannon MD Unavailable [phone] Encounter Details Date Type Department Care Team (Late st Contact Info) Description 07/08/2022 Orders Only External Location [address] [place] [address] Armani Lopez [place] [address] [address] [place] [address] Social History Tobacco Use Types [...] Description 10/26/2024 1:20 PM EDT Office Visit [address] [place] [address] Florentin Tillman MD [address] [place] [address] documented as of this encounter Procedures Procedure [...] documented as of this encounter Care Teams Systems Security Analyst Relationship Specialty Start Date End Date Edi Chase MD [address] [place] [address] PCP - General 03/14/20 Sam Sanchez MD [address] [place] [address] Consulting Physician Pulmonary Disease 08/11/22 Cayetano Cannon MD [address] [place] [address] Referring Physician 08/11/22 documented as of this encounter
--- OUTSIDE RECORDS SUMMARY | 2024-10-17 09:47 | XMS_ITS | Encounter Summary ---
Author Organization [facility] Address [address] [place] [address] Care Team Providers Care Perl Developer Name Role Phone Edi Chase MD Primary Care Provider [phone] Sam Sanchez MD Unavailable [phone] Cayetano Cannon MD Unavailable [phone] Encounter Details Date Type Department Care [...] How often do you attend chur or yazdanism services? Patient unable to answer 12/26/2023 Do [...] Recorded Patient Health Questionnaire-2 Score 1 08/27/2024 [facility] - Occupational Stress Questionnaire [...] Description 10/26/2024 1:20 PM EDT Office Visit [facility] [address] [place] [address] Florentin Tillman MD [address] [place] [address] documented as of this encounter Visit [...] documented as of this encounter Care Teams Perl Developer Relationship Specialty Start Date End Date Edi Chase MD [address] [facility] [place] [address] PCP - General 03/14/20 Sam Sanchez MD [address] [place] [address] Consulting Physician Pulmonary Disease 08/11/22 Cayetano Cannon MD [address] [place], [place] [address] Referring Physician 08/11/22 documented as of this encounter
--- OUTSIDE RECORDS SUMMARY | 2024-10-17 09:47 | XMS_ITS | Clinical Summary ---
Author Organization [facility] Address [address] [place] [address] Phone Care Team Providers Care Accounting Bookkeeper Name Role Phone Unavailable Primary Care Provider [...] this topic Medical Devices Implanted Type Area [employer] Officer Device Identifier Shelf Expiration Date Model / Serial / Lot Stent Coronary Vision Rx 3.50mm X 18mm - [id number] Implanted:Qty: 1 on 03/16/2010 at [employer] Explanted:at [employer] (Quantity not on file) Stent-Vis ion [facility]:VASC DEV [id number] / / [id number] Insurance [place]ARE [place] PART A [place] B [place] [id number] [place] [address] [place]
--- OUTSIDE RECORDS SUMMARY | 2024-10-17 09:47 | XMS_ITS | Encounter Summary ---
Author Organization [facility] Address [address] [place] [id number] Care Team Providers Care Stock Wetter Name Role Phone Edi Chase MD Primary Care Provider [phone] Sam Sanchez MD Unavailable [phone] Cayetano Cannon MD Unavailable [phone] Encounter Details Date Type Department Care Team (Late st Contact Info) Description 08/22/2024 Telephone [place] [facility] [address] [place] [address] Cuong Catherine MD [address] [place] [id number] Social History Tobacco Use Types Packs/Day Years [...] often do you attend chur ch or evangelical services? Patient unable to answer 12/26/2023 Do you belong to any clubs o r organizations such as latter day groups, unions, fraternal or athletic groups, or [...] one occasion? Patient unable to answer 12/26/2023 [facility] - [...] place to sleep or slept in a halfway (including now)? Patient unable to answer 12/26/2023 [...] confirm 6-16 appt. Spoke with Devin at [facility], she will check with project scheduler. Gave phone number and address. documented in this encounter Plan of Treatment Upcoming Encounters Date Type Department Care Team (Late st Contact Info) Description 10/26/2024 1:20 PM EDT Office Visit [facility] [address] [place] [address] Florentin Tillman MD [address] [place] [address] documented as of this encounter Visit [...] documented as of this encounter Care Teams Stock Wetter Relationship Specialty Start Date End Date Edi Chase MD [address] [place] [address] PCP - General 03/14/20 Sam Sanchez MD [address] [place] [address] Consulting Physician Pulmonary Disease 08/11/22 Cayetano Cannon MD [address] [place] [address] Referring Physician 08/11/22 documented as of this encounter
[2024-10-17 11:00] VITALS: PULSE 87; PULSE 93
[2024-10-17] MEDS: ALBUTEROL 0.083% 2.5 MG/3 ML NEB IH (11:00)
--- NOTE | 2024-10-17 12:42 | RESP.PFTSS ---
Mr. Toussaint has been unsteady on his feet. Six minute walk was not done. Oxygen saturation is 86% on room air at rest.
== END 2024-10-17 23:59 | disposition home or self-care (01) ==
LOC: RT 09:44
PROVIDERS: PCP Family Medicine; Visit Provider Internal Medicine Pulmonary Disease
DX: R94.2 Abnormal results of pulmonary function studies (principal); R06.02 Shortness of breath; R06.09 Other forms of dyspnea
CPT/HCPCS: 94060; 94640

== ENCOUNTER 2024-10-18 08:57 | Outpatient (CLI) | payer MEDICARE, MEDICAID, SELFPAY ==
--- OUTSIDE RECORDS SUMMARY | 2024-08-27 13:00 | XMS_ITS | Encounter Summary ---
Author Organization [facility] Address [address] [place] [address] Care Team Providers Care Construction Safety Manager Name Role Phone Edi Chase MD Primary Care Provider [phone] Sam Sanchez MD Unavailable [phone] Cayetano Cannon MD Unavailable [phone] Reason for Referral * Other Medical (Routine) - Closed Specialty Diagnoses / Procedures Referred By José campbell Referred To Contact Neurology Diagnoses Dizziness on standing Procedures EEG Jyoti Tyler MD [address] [facility] [address] [place] [address] Phone: tel: fax: Referral ID Status Reason Start Date Expiration Date V isits Requested Visits Authorized [id number] Closed Specialty Services Required 08/27/2024 02/26/2026 1 1 Reason for Visit * Consultation (Routine) - Closed Specialty Diagnoses / Procedures Referred By José campbell Referred To Contact Neurology Diagnoses Syncope and collapse Malignant neoplasm of unspecified part of unspecified bronchus or lung (CMS/HCC) Miriam Baugh, WATER AND GAS HELPER [address] [place] [address] Phone: tel: fax: Referral ID Status Reason Start Date Expiration Date V isits Requested Visits Authorized [id number] Closed Specialty Services Required 01/24/2024 07/25/2025 1 1 Encounter Details Date Type Department Care Team (Late st Contact Info) Description 08/27/2024 1:00 PM EDT Consult [place] [facility] [address] [place] [address] Cuong Catherine MD [address] [place] [address] Dizziness on standing (Primary Dx); Nonintractable episodic [...] How often do you attend chur or yazidi services? Patient unable to answer 12/26/2023 Do you belong to any clubs o r organizations such as pentecostalism groups, unions, fraternal or athletic groups, or [...] Patient Health Questionnaire-2 Score 1 08/27/2024 [facility] - Occupational Stress Questionnaire Answer [...] lung cancer who presents to the [facility] as a new patient today with/for headaches and dizzy spells. HPI Referral placed by Miriam Baugh APRN for evaluation of syncope and collapse. Pt lives in a long-term and presents today with care nurse. Patient's [...] Reflexes: 2+ throughout Coordination: no ataxia with ensgyl-cz-ulcp testing Proprioception: intact in upper extremities bilaterally [...] orthostatic hypotension. He should follow with his family resource management specialist to obtain orthostatic vital signs and consider [...] 3 months Counseling Documentation: The patient and screening specialist was counseled regarding impressions. Education provided was verbal counseling. Additional time was spent in care coordination including medical record review. The total time of encounter was 100 minutes. . Cuong Catherine MD, PGY-2, Neurology Secure Chat/Pager: [phone] 08/27/2024 5:26 PM Dictation software disclaimer: Parts [...] After use, clean tip and replace cap. Usuphuygafl-Bquxhucuw-Oickxt (Trelegy Ellipta) 100-62.5-25 MCG/ACT aerosol powder Inhale 1 puff 1 (one) time each day. gabapentin (Neurontin) 100 MG capsule Take 1 capsule by mouth 2 times a day. hydroCHLOROthiazide (HYDRODiuril) 25 MG tablet Take 1 tablet by mouth daily. HYDROcodone-acetaminophen ([place]) 5-325 MG tablet Take 1 tablet (5 [...] We discussed patient seeing eitherhis PCP or family resource management specialist to test orthostatic vitals and adjust medications [...] Description 10/26/2024 1:20 PM EDT Office Visit [facility] [address] [address] Florentin Tillman MD [address] [place] [address] documented as of this encounter [...] After use, clean tip and replace cap. Zmeqciwtvoj-Qixepgwvk-Ejymtj (Trelegy Ellipta) 100-62.5-25 MCG/ACT aerosol powder Inhale [...] Take 1 tablet by mouth daily. HYDROcodone-acetaminophen ([place]) 5-325 MG tablet Take 1 tablet (5 [...] documented as of this encounter Care Teams Construction Safety Manager Relationship Specialty Start Date End Date Edi Chase MD [address] [place] [address] PCP - General 03/14/20 Sam Sanchez MD [address] [place] [address] Consulting Physician Pulmonary Disease 08/11/22 Cayetano Cannon MD [address] [facility] [address] [place] [address] Referring Physician 08/11/22 documented as of this encounter
--- OUTSIDE RECORDS SUMMARY | 2024-10-16 07:56 | XMS_ITS | Encounter Summary ---
Author Organization [facility] Address [address] [place] [address] Care Team Providers Care Fiscal Accountant Name Role Phone Edi Chase MD Primary Care Provider [phone] Sam Sanchez MD Unavailable [phone] Cayetano Cannon MD Unavailable [phone] Reason for Referral * Other Medical (Routine) - Closed Specialty Diagnoses / Procedures Referred By José campbell Referred To Contact Neurology Diagnoses Dizziness on standing Procedures EEG Jyoti Tyler MD [address] [address] Phone: tel: fax: Referral ID Status Reason Start Date Expiration Date V isits Requested Visits Authorized [id number] Closed Specialty Services Required 08/27/2024 02/26/2026 1 1 Reason for Visit * Other Medical (Routine) - Closed Specialty Diagnoses / Procedures Referred By José campbell Referred To Contact Neurology Diagnoses Dizziness on standing Procedures EEG Jyoti Tyler MD [address] [address] Phone: tel: fax: Referral ID Status Reason Start Date Expiration Date V isits Requested Visits Authorized [id number] Closed Specialty Services Required 08/27/2024 02/26/2026 1 1 Encounter Details Date Type Department Care Team (Latest Contact Info) Description 10/16/2024 7:56 AM EDT - 10/16/2024 11:59 PM EDT Hospital Encounter [facility] [address] [place] [address] Dizziness on standing Discharge Disposition: Home or [...] answer 12/26/2023 How often do you attend [facility] or jain services? Patient unable to [...] Recorded Patient Health Questionnaire-2 Score 1 08/27/2024 [facility] - Occupational Stress Questionnaire [...] tablet by mouth daily. 08/27/2024 HYDROcodone-aceta minophen ([place]) 5-325 MG tablet Take 1 tablet (5 [...] Description 10/26/2024 1:20 PM EDT Office Visit [facility] [address] [place] [address] Florentin Tillman MD [address] [place] [address] documented as of this encounter Procedures Procedure [...] After use, clean tip and replace cap. Mzwjtexever-Sqgaxnhpb-Ajunqw (Trelegy Ellipta) 100-62.5-25 MCG/ACT aerosol powder Inhale [...] Take 1 tablet by mouth daily. HYDROcodone-acetaminophen ([place]) 5-325 MG tablet Take 1 tablet (5 [...] documented as of this encounter Care Teams Fiscal Accountant Relationship Specialty Start Date End Date Edi Chase MD [address] [place] [address] PCP - General 03/14/20 Sam Sanchez MD [address] [place] [address] Consulting Physician Pulmonary Disease 08/11/22 Caeytano Cannon MD 1210 [facility] [address] [place] [address] Referring Physician 08/11/22 documented as of this encounter
--- NOTE | 2024-10-18 08:45 | MR_ITS ---
FINAL REPORT CLINICAL HISTORY: left shoulder pain COMPARISON: Chest CT dated 10/03/2024. FINDINGS: Multiplanar MR imaging of the left shoulder was obtained with and without contrast. There is heterogeneous abnormal signal in the distal supraspinatus tendon consistent with a partial intrasubstance tear. The anterior and posterior glenoid janine appear intact. The subscapularis and biceps tendon appear intact. There is degenerative cyst formation in the bony glenoid measuring 9 mm. Extensive abnormal signal is seen throughout the medial subscapularis muscle extending to the upper left lateral chest wall. The full extent of this abnormality is not seen on this exam. On the postinfusion images, there is heterogeneous enhancement along the upper left lateral chest wall. Finding is best seen on coronal images 17 through 27 of series 18. IMPRESSION: Intrasubstance tear of the distal supraspinatus tendon without definite full-thickness component. Degenerative cyst formation in the bony glenoid. Extensive edema and inflammation in the medial subscapularis muscle and along the upper lateral left chest wall. Infused thoracic CT is highly recommended to better characterize this abnormality. This appears more extensive than prior chest CT dated 10/03/2024. Reviewed, Interpreted and Dictated by Primitivo Rodriguez MD Transcribed by Nati Funez Authenticated and [facility]
--- OUTSIDE RECORDS SUMMARY | 2024-10-18 09:07 | XMS_ITS | Clinical Summary ---
Author Organization Healthcare Address [address] [place] [address] Care Team Providers Care Receiving Checker Name Role Phone Edi Chase MD Primary Care Provider [phone] Sam Sanchez MD Unavailable [phone] Cayetano Cannon MD Unavailable [phone] Allergies No known active allergies Medications [...] (one) time each day. Active HYDROcodone-acet aminophen (Alicia) 5-325 MG tablet Take 1 tablet (5 [...] [address] [place] [address] Dizziness on standing Discharge Disposition: Home or Self Care 10/16/2024 Travel 08/27/2024 1:00 PM EDT Consult [place] [facility] [address], [address] [place] [address] Cuong Catherine MD Dizziness on standing (Primary Dx); Nonintractable episodic headache, unspecified headache type; Cerebrovascular accident (CVA), unspecified mechanism (CMS/HCC) 08/27/2024 Travel 08/22/2024 Telephone [place] [facility] [address], [address] [place] [address] Cuong Catherine MD from Last [...] answer 12/26/2023 How often do you attend [facility] or mormon services? Patient unable to answer 12/26/2023 Do [...] Recorded Patient Health Questionnaire-2 Score 1 08/27/2024 [facility] - [...] place to sleep or slept in a nursing home (including now)? Patient unable to answer 12/26/2023 Utilities Answer Date Recorded In the past 12 months has [employer], gas, oil, or water [employer] threatened to shut off services in your [...] Description 10/26/2024 1:20 PM EDT Office Visit [facility] [address] [place] [address] Florentin Tillman MD [address] [place] [address] Health Maintenance Due Date Last Done Comments [facility]-Medicare Annual Wellness (AWV) 1950 [facility]-/Child/Adol SDOH Screenings 1950 [facility]-DTaP,Tdap,and Td Vaccines (1 - Tdap) 08/31/1967 [facility]-Pneumococcal Vaccine: 50+ Years (1 of 2 - PCV) 08/31/1967 [facility]-Zoster Vaccines (1 of 2) 08/31/1967 [id number]-80 Vaccine (3 - Pfizer risk series) 05/10/2020 [...] After use, clean tip and replace cap. Zupgmnfkywr-Vrohjoldp-Wepdwn (Trelegy Ellipta) 100-62.5-25 MCG/ACT aerosol powder Inhale [...] Take 1 tablet by mouth daily. HYDROcodone-acetaminophen (Alicia) 5-325 MG tablet Take 1 tablet (5 [...] Antibody Negative Negative 12/23/2023 6:55 PM EDT [facility] Blood Venous blood specimen / Unknown Venipuncture / Unknown 12/23/2023 5:39 PM EDT 12/23/2023 6:04 PM EDT Med Lyn MD LAB BLOOD ORDERABLES Final Result [facility] [address] [place] [address] * (ABNORMAL) Hemoglobin A1c (12/23/2023 5:39 PM EDT) Hemoglobin A1c 6.3(H) <5.7 % 12/24/2023 12:22 AM EDT [facility] Blood Venous blood specimen / Unknown Venipuncture / Unknown 12/23/2023 5:39 PM EDT 12/23/2023 5:55 PM EDT Narrative [facility] - 12/24/2023 12:22 AM EDT HA1C Interpretive Data: Diagnosis of Diabetes: Diabetic > or = 6.5% Pre-diabetic 5.7 to 6.4% Non-diabetic < or = 5.6% Glycemic Targets for Type I and Type II Diabetics: Non- Adults <7.0% Adults <6.0% Children and Adolescents <7.5% Source: [place] [employer]. Standards of medical care in diabetes,2017. Diabetes Care.2017:40 (suppl 1):S1-S135. HbA1c assay performed by an ion-exchange chromatography method that is certified traceable to the DCCT. 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 Yes Care Teams Receiving Checker Relationship Specialty Start Date End Date Edi Chase MD [address] [place] [address] PCP - General 03/14/20 Sam Sanchez MD [address] [place] [address] Consulting Physician Pulmonary Disease 08/11/22 Cayetano Cannon MD [address] [facility] [address] [place] [address] Referring Physician 08/11/22
--- OUTSIDE RECORDS SUMMARY | 2024-10-18 09:07 | XMS_ITS | Clinical Summary ---
Author Organization [facility] Address [address] [place] [place] [address] Phone Care Team Providers Care Mechanical Research Engineer Name Role Phone Unavailable Primary Care Provider [...] this topic Medical Devices Implanted Type Area Salvage Engineer Device Identifier Shelf Expiration Date Model / Serial / Lot Stent Coronary Vision Rx 3.50mm X 18mm - [id number] Implanted:Qty: 1 on 03/16/2010 at [employer] Explanted:at [employer] (Quantity not on file) Stent-Vis ion [facility] LAB:VASC DEV [id number] / / [id number] Insurance [place] A [place] [address] [place] [address] [place]
--- OUTSIDE RECORDS SUMMARY | 2024-10-18 09:07 | XMS_ITS | Encounter Summary ---
Author Organization Healthcare Address [address] [place] [address] Care Team Providers Care Supervisor Pile Driving Name Role Phone Edi Chase MD Primary Care Provider [phone] Sam Sanchez MD Unavailable [phone] Cayetano Cannon MD Unavailable [phone] Encounter Details Date Type Department Care Team (Late st Contact Info) Description 12/12/2023 Orders Only External Location [address] [place] [address] Provider, External Social History Tobacco Use Types [...] Description 10/26/2024 1:20 PM EDT Office Visit [facility] [address] [place] [address] Florentin Tillman MD [address] [place] [address] documented as of this encounter Procedures Procedure [...] as of this encounter Care Teams Supervisor Pile Driving Relationship Specialty Start Date End Date Edi Chase MD [address] [facility] [place] [address] PCP - General 03/14/20 Sam Sanchez MD [address] [place] [address] Consulting Physician Pulmonary Disease 08/11/22 Cayetano Cannon MD 12[address] [facility] [address] [place] [address] Referring Physician 08/11/22 documented as of this encounter
--- OUTSIDE RECORDS SUMMARY | 2024-10-18 09:07 | XMS_ITS | Encounter Summary ---
Author Organization [facility] Address [address] [id number] Care Team Providers Care Director Franchise Sales Name Role Phone Edi Chase MD Primary Care Provider [phone] Sam Sanchez MD Unavailable [phone] Cayetano Cannon MD Unavailable [phone] Encounter Details Date Type Department Care Team (Late st Contact Info) Description 08/22/2024 Telephone [place] [facility] [address], [address] [place] [address] Cuong Catherine MD [address] [place] [id number] Social History Tobacco Use Types Packs/Day Years [...] one occasion? Patient unable to answer 12/26/2023 [facility] - Occupational Stress [...] place to sleep or slept in a chcf (including now)? Patient unable to answer 12/26/2023 [...] confirm 6-16 appt. Spoke with Devin at [facility], she will check with screed person. Gave phone number and address. documented in this encounter Plan of Treatment Upcoming Encounters Date Type Department Care Team (Late st Contact Info) Description 10/26/2024 1:20 PM EDT Office Visit [facility] [address] [place] [address] Florentin Tillman MD [address] [place] [address] documented as of this encounter Visit [...] documented as of this encounter Care Teams Director Franchise Sales Relationship Specialty Start Date End Date Edi Chase MD [address] [place] [address] PCP - General 03/14/20 Sam Sanchez MD [address] [place] [address] Consulting Physician Pulmonary Disease 08/11/22 Cayetano Cannon MD [address] [place] [address] Referring Physician 08/11/22 documented as of this encounter
--- OUTSIDE RECORDS SUMMARY | 2024-10-18 09:07 | XMS_ITS | Encounter Summary ---
Author Organization Healthcare Address [address] [place] [address] Care Team Providers Care Prepared Foods Team Leader Name Role Phone Edi Chase MD Primary Care Provider [phone] Sam Sanchez MD Unavailable [phone] Cayetano Cannon MD Unavailable [phone] Encounter Details Date Type Department Care Team (Late st Contact Info) Description 12/26/2023 Lab Requisition [facility] [address] [place] [address] Amado Horton MD [address] [facility] [address] [place] [address] Encounter for general adult medical [...] any clubs o r organizations such as spiritism groups, unions, fraternal or athletic groups, or [...] unable to answer 12/26/2023 [facility] - Occupational Stress Questionnaire Answer [...] [facility] [address] [place] [address] Florentin Tillman MD [address] [place] [address] documented as of this encounter Procedures Procedure Name Priority Date/Time Associated Diagnosis Comments MULTI DRUG RESISTANCE TEST Routine 12/26/2023 2:00 PM EDT Encounter for general adult medical examination without abnormal findings documented in this encounter Results * Multi Drug Resistance Test (12/26/2023 2:00 PM EDT) Culture No growth at day 1 12/27/2023 12:24 PM EDT [facility] Swab (Nares and Brenda Rectal) 12/26/2023 2:00 PM EDT 12/26/2023 3:15 PM EDT us Amado Horton MD LAB MICROBIOLOGY - GEN ERAL ORDERABLES Final Result [facility] [address] [place] [address] documented in this encounter Visit Diagnoses Diagnosis [...] documented as of this encounter Care Teams Prepared Foods Team Leader Relationship Specialty Start Date End Date Edi Chase MD [address] [place] [address] PCP - General 03/14/20 Sam Sanchez MD [address] [place] [address] Consulting Physician Pulmonary Disease 08/11/22 Cayetano Cannon MD [address] [facility] [address] [place] [address] Referring Physician 08/11/22 documented as of this encounter
--- OUTSIDE RECORDS SUMMARY | 2024-10-18 09:07 | XMS_ITS | Encounter Summary ---
Author Organization [facility] Address [address] [place] [address] Care Team Providers Care Dietetics Professor Name Role Phone Edi Chase MD Primary Care Provider [phone] Sam Sanchez MD Unavailable [phone] Cayetano Cannon MD Unavailable [phone] Encounter Details Date Type Department Care Team (Late st Contact Info) Description 12/14/2023 Orders Only External Location [address] [place] [address] Cedric Hinton MD [address] [place] [id number] Social History Tobacco Use Types Packs/Day Years [...] [place] [address] Florentin Tillman MD [address] [place] [address] documented as of this encounter Procedures Procedure [...] documented as of this encounter Care Teams Dietetics Professor Relationship Specialty Start Date End Date Edi Chase MD [address] [place] [address] PCP - General 03/14/20 Sam Sanchez MD [address] [place] [address] Consulting Physician Pulmonary Disease 08/11/22 Cayetano Cannon MD [address] [place] [address] Referring Physician 08/11/22 documented as of this encounter
--- OUTSIDE RECORDS SUMMARY | 2024-10-18 09:07 | XMS_ITS | Encounter Summary ---
Author Organization [facility] Address [address] [place] [address] Care Team Providers Care Senior Electrical Designer Name Role Phone Edi Chase MD Primary Care Provider Sam Sanchez MD Unavailable [phone] Cayetano Cannon MD Unavailable [phone] Encounter Details Date Type Department Care Team (Late st Contact Info) Description 07/08/2022 Orders Only External Location [address] [place] [address] Armani Lopez [place], [place] [address] [address] [place] [address] Social History Tobacco Use Types [...] Description 10/26/2024 1:20 PM EDT Office Visit [address] [place] [address] Florentin Tillman MD [address] [place] [address] documented as of this encounter Procedures Procedure [...] as of this encounter Care Teams Senior Electrical Designer Relationship Specialty Start Date End Date Edi Chase MD [address] [place] [address] PCP - General 03/14/20 Sam Sanchez MD [address] [place] [address] Consulting Physician Pulmonary Disease 08/11/22 Cayetano Cannon MD [address] [place] [address] Referring Physician 08/11/22 documented as of this encounter
--- OUTSIDE RECORDS SUMMARY | 2024-10-18 09:07 | XMS_ITS | Encounter Summary ---
Author Organization [facility] Address [address] [place] [address] Care Team Providers Care Turf Manager Name Role Phone Edi Chase MD Primary Care Provider [phone] Sam Sanchez MD Unavailable [phone] Cayetano Cannon MD Unavailable [phone] Encounter Details Date Type Department Care [...] How often do you attend chur or mandaen services? Patient unable to answer [...] Health Questionnaire-2 Score 1 08/27/2024 [facility] - Occupational Stress Questionnaire Answer [...] [facility] [address] [place] [address] Florentin Tillman MD [address] [place] [address] documented as of this encounter Visit [...] documented as of this encounter Care Teams Turf Manager Relationship Specialty Start Date End Date Edi Chase MD [address] [facility] [place] [address] PCP - General 03/14/20 Sam Sanchez MD [address] [place] [address] Consulting Physician Pulmonary Disease 08/11/22 Cayetano Cannon MD [address] [place], [place] [address] Referring Physician 08/11/22 documented as of this encounter
--- OUTSIDE RECORDS SUMMARY | 2024-10-18 09:07 | XMS_ITS | Encounter Summary ---
Author Organization [facility] Address [address] [place] [address] Care Team Providers Care Creative Recruiter Name Role Phone Edi Chase MD Primary Care Provider [phone] Sam Sanchez MD Unavailable [phone] Cayetano Cannon MD Unavailable [phone] Encounter Details Date Type Department Care Team (Late st Contact Info) Description 09/30/2022 Lab Requisition [facility] [address] [place] [address] Lyn Santana MD [address] [place] [address] Malignant neoplasm of upper lobe, [...] Description 10/26/2024 1:20 PM EDT Office Visit [facility] [address] [place] [address] Flornetin Tillman MD [address] [place] [address] documented as of this encounter Procedures Procedure Name Priority Date/Time Associated Diagnosis Comments AP MISCELLANEOUS LAB TEST (SO) Routine 09/08/2022 11:51 AM EDT Malignant neoplasm of upper lobe, left bronchus or lung (CMS/HCC) documented in this encounter Results * AP Miscellaneous Lab Test (09/08/2022 11:51 AM EDT) Test name IA Profile 10/15/2022 7:42 AM EDT [facility] Comment:[id number] Test Result see scan 10/15/2022 7:42 AM EDT [facility] See Scanned Result 10/15/2022 7:42 AM EDT [facility] Tissue 09/08/2022 11:5 1 AM EDT 09/30/2022 2:24 PM EDT Lyn Santana MD LAB REF LAB BLOOD AND FLUID ORD Final Result [facility] documented in this encounter Visit [...] documented as of this encounter Care Teams Creative Recruiter Relationship Specialty Start Date End Date Edi Chase MD [address] [place] [address] PCP - General 03/14/20 Sam Sanchze MD [address] [place] [address] Consulting Physician Pulmonary Disease 08/11/22 Cayetano Cannon MD [address] [place] [address] Referring Physician 08/11/22 documented as of this encounter
--- OUTSIDE RECORDS SUMMARY | 2024-10-18 09:07 | XMS_ITS | Encounter Summary ---
Author Organization [facility] Address [address] [place] [address] Care Team Providers Care Qm Consultant Name Role Phone Edi Chase MD Primary Care Provider [phone] Sam Sanchez MD Unavailable [phone] Cayetano Cannon MD Unavailable [phone] Encounter Details Date Type Department Care [...] Recorded Patient Health Questionnaire-2 Score 1 08/27/2024 [facility] - Occupational Stress Questionnaire Answer [...] Description 10/26/2024 1:20 PM EDT Office Visit [facility] [address] [place] [address] Florentin Tillman MD [address] [place] [address] documented as of this encounter [...] documented as of this encounter Care Teams Qm Consultant Relationship Specialty Start Date End Date Edi Chase MD [address] [facility] [place] [address] PCP - General 03/14/20 Sam Sanchez MD [address] [place] [address] Consulting Physician Pulmonary Disease 08/11/22 Cayetano Cannon MD [address] [place] [address] Referring Physician 08/11/22 documented as of this encounter
--- OUTSIDE RECORDS SUMMARY | 2024-10-18 09:07 | XMS_ITS | Encounter Summary ---
Author Organization Healthcare Address [address] [place] [address] Care Team Providers Care Research Manufacturing Operator Name Role Phone Edi Chase MD Primary Care Provider [phone] Sam Sanchez MD Unavailable [phone] Cayetano Cannon MD Unavailable [phone] Encounter Details Date Type Department Care Team ([facility] st Contact Info) Description 01/05/2024 Orders Only External Location [address] [place] [address] Cedric Hinton MD [address] [place] [address] Social History Tobacco Use Types Packs/Day Years [...] often do you attend chur ch or christian services? Patient unable to answer [...] one occasion? Patient unable to answer 12/26/2023 [facility] - Occupational Stress [...] Description 10/26/2024 1:20 PM EDT Office Visit [place] [address] [facility] [address] [place] [address] Florentin Tillman MD [address] [place] [address] documented as of this encounter Procedures [...] documented as of this encounter Care Teams Research Manufacturing Operator Relationship Specialty Start Date End Date Edi Chase MD [address] [place] [address] PCP - General 03/14/20 Sam Sanchez MD [address] [place] [address] Consulting Physician Pulmonary Disease 08/11/22 Cayetano Cannon MD [address] [facility] [address] [place], [place] [address] Referring Physician 08/11/22 documented as of this encounter
[2024-10-18 09:24] LABS: Hematocrit 25.5 % (42.0-52.0); Hemoglobin 8.0 g/dL (14.1-18.0); Immature Granulocytes % 0.2 %; Mean Corpuscular HGB Conc 31.4 g/dL (31.8-35.4); Mean Corpuscular Hemoglobin 28.0 pg (27.0-31.2); Mean Corpuscular Volume 89.2 fl (80-94); Nucleated Red Blood Cells % 0 %; Platelet Count 224 K/mm3 (142-424); Red Blood Count 2.86 M/mm3 (4.60-6.20); Red Cell Distribution Width-SD 50.3 fL; White Blood Count 4.9 K/mm3 (4.8-10.8)
[2024-10-18 10:10] LABS: Albumin Level 3.5 g/dl (3.5-5.0); Chloride 107 mmol/L (98-107); Potassium 4.0 mmoL/L (3.5-5.1); Sodium 136 mmol/L (136-145)
[2024-10-18 10:13] LABS: Alanine Aminotransferase 14 U/L (12-78); Albumin/Globulin Ratio 1.2 (1.1-1.8); Alkaline Phosphatase 80 U/L (38-126); Anion Gap 9.0 mEq/L (5-15); Aspartate Amino Transferase 21 U/L (17-59); Bilirubin,Total 0.1 mg/dl (0.2-1.3); Blood Urea Nitrogen 30 mg/dl (9-20); Calcium 8.5 mg/dl (8.4-10.2); Carbon Dioxide 24 mmol/L (22.0-30.0); Creatinine,Serum 1.80 mg/dl (0.66-1.25); Estimated Glomerular Filt Rate 37 ml/min (>60); GFR (African American) 45 ML/MIN (>60); Globulin 3.0 g/dL (1.3-3.2); Glucose 128 mg/dl (74-100); Total Protein,Serum 6.5 g/dl (6.3-8.2)
[2024-10-18 10:30] LABS: RBC Morphology Normal; Total Cells Counted 100
[2024-10-18] MEDS: GADOTERIDOL INJ 10ML SYRINGE 2 ML IV (11:11)
[2024-10-18] MEDS: SODIUM CHLORIDE 0.9% 10ML SYR (RAD ONLY) 10 ML IV (11:11)
[2024-10-18] MEDS: GADOTERIDOL INJ 20ML SYRINGE 20 ML IV (11:11)
== END 2024-10-18 23:59 | disposition home or self-care (01) ==
LOC: RAD 08:58
PROVIDERS: PCP Family Medicine; Visit Provider Internal Medicine Medical Oncology
DX: C34.90 Malignant neoplasm of unspecified part of unspecified bronchus or lung (principal); M75.112 Incomplete rotator cuff tear or rupture of left shoulder, not specified as traumatic; M85.612 Other cyst of bone, left shoulder; M60.9 Myositis, unspecified; R60.0 Localized edema
CPT/HCPCS: 36415; 73223; 80053; 85007; 85025; A9576

== ENCOUNTER 2024-10-19 09:13 | Outpatient (CLI) | payer MEDICARE, MEDICAID, SELFPAY ==
--- OUTSIDE RECORDS SUMMARY | 2006-01-18 07:04 | XMS_ITS | Continuity of Care Document ---
Author Organization [facility] o Address [address] [place] [address] Phone Care Team Providers Care Cake Cutter Machine Name Role Phone Bruno Rogel MD Unavailable Unavailable Procedures Procedure Date Emg 1 Ext Nrv conductn motor, ea nrv w/o Fwav Nerve conductn motor ea nrv sensory Advance Directives Directive Yes / No Effective Date File Name No Information Encounters Encounter Description Practice Location Reason(s) For Visit Diagnoses Date Provider Providers Copied on Encounter [facility] [place], [address] [place] [address], [address], [place] tel:[phone] [facility] No Information 7200 6 Juan F Carr. [address] [place], [place], [id number] , [place]. tel:[phone] Family History Family Member Type Diagnosis Age At Onset No Information Payers Payer name Insurance type Covered alliance party ID Authoriza tion(s) Medicare [employer] MB [id number] Social History Type Description Quantity Date Captured [...]
--- OUTSIDE RECORDS SUMMARY | 2024-08-27 13:00 | XMS_ITS | Encounter Summary ---
Author Organization [facility] Address [address] [place] [address] Care Team Providers Care Protective Signal Repairer Name Role Phone Edi Chase MD Primary Care Provider Sam Sanchez MD Unavailable Cayetano Cannon MD Unavailable [phone] Reason for Referral * Other Medical (Routine) - Closed Specialty Diagnoses / Procedures Referred By José campbell Referred To Contact Neurology Diagnoses Dizziness on standing Procedures EEG Jyoti [place] MD [address] [facility] [address] [place] [address] Phone: tel: fax: Referral ID Status Reason Start Date Expiration Date V isits Requested Visits Authorized [id number] Closed Specialty Services Required 08/27/2024 02/26/2026 1 1 Reason for Visit * Consultation (Routine) - Closed Specialty Diagnoses / Procedures Referred By José campbell Referred To Contact Neurology Diagnoses Syncope and collapse Malignant neoplasm of unspecified part of unspecified bronchus or lung (CMS/HCC) Miriam Baugh, KILN CAR UNLOADER [address] [place] [address] Phone: tel: fax: Referral ID Status Reason Start Date Expiration Date V isits Requested Visits Authorized [id number] Closed Specialty Services Required 01/24/2024 07/25/2025 1 1 Encounter Details Date Type Department Care Team (Late st Contact Info) Description 08/27/2024 1:00 PM EDT Consult [place] [facility] [address], [address] [place] [address] Cuong Catherine MD [address] [place] [address] Dizziness on standing (Primary Dx); Nonintractable episodic [...] How often do you attend chur or orthodox services? Patient unable to answer 12/26/2023 Do you belong to any clubs o r organizations such as yazidi groups, unions, fraternal or athletic groups, or [...] Recorded Patient Health Questionnaire-2 Score 1 08/27/2024 [facility] - Occupational Stress Questionnaire Answer Date [...] place to sleep or slept in a intermediate (including now)? Patient unable to answer 12/26/2023 [...] for lung cancer who presents to the [facility] as a new patient today with/for headaches and dizzy spells. HPI Referral placed by Miriam Baugh APRN for evaluation of syncope and collapse. Pt lives in a [facility] and presents today with care nurse. Patient's [...] Reflexes: 2+ throughout Coordination: no ataxia with kncetz-xi-cuey testing Proprioception: intact in upper extremities bilaterally [...] orthostatic hypotension. He should follow with his v/stol landing signal officer to obtain orthostatic vital signs and consider [...] 3 months Counseling Documentation: The patient and forklift technician was counseled regarding impressions. Education provided was verbal counseling. Additional time was spent in care coordination including medical record review. The total time of encounter was 100 minutes. . Cuong Catherine MD, PGY-2, Neurology Secure Chat/Pager: [phone] 08/27/2024 5:26 PM Dictation software disclaimer: Parts [...] After use, clean tip and replace cap. Uhwpqjaalui-Reomqnbcg-Ttrqcd (Trelegy Ellipta) 100-62.5-25 MCG/ACT aerosol powder Inhale 1 puff 1 (one) time each day. gabapentin (Neurontin) 100 MG capsule Take 1 capsule by mouth 2 times a day. hydroCHLOROthiazide (HYDRODiuril) 25 MG tablet Take 1 tablet by mouth daily. HYDROcodone-acetaminophen ([place]) 5-325 MG tablet Take 1 tablet (5 [...] We discussed patient seeing eitherhis PCP or v/stol landing signal officer to test orthostatic vitals and adjust medications [...] Description 10/26/2024 1:20 PM EDT Office Visit [facility] [address] [address] Florentin Tillman MD [address] [place] [address] documented as of this encounter [...] After use, clean tip and replace cap. Prozcdtywfi-Iindcjpiw-Fdvvdz (Trelegy Ellipta) 100-62.5-25 MCG/ACT aerosol powder Inhale [...] Take 1 tablet by mouth daily. HYDROcodone-acetaminophen ([place]) 5-325 MG tablet Take 1 tablet (5 [...] documented as of this encounter Care Teams Protective Signal Repairer Relationship Specialty Start Date End Date Edi Chase MD [address] [place] [address] PCP - General 03/14/20 Sam Sanchez MD [address] [place] [address] Consulting Physician Pulmonary Disease 08/11/22 Cayetano Cannon MD [address] [facility] [address] [place] [address] Referring Physician 08/11/22 documented as of this encounter
--- OUTSIDE RECORDS SUMMARY | 2024-10-16 07:56 | XMS_ITS | Encounter Summary ---
Author Organization [facility] Address [address] [place] [address] Care Team Providers Care Inspector Finishing Name Role Phone Edi Chase MD Primary Care Provider [phone] Sam Sanchez MD Unavailable [phone] Cayetano Cannon MD Unavailable [phone] Reason for Referral * Other Medical (Routine) - Closed Specialty Diagnoses / Procedures Referred By José campbell Referred To Contact Neurology Diagnoses Dizziness on standing Procedures EEG Jyoti Tyler MD [address] [address] Phone: tel: fax: Referral ID Status Reason Start Date Expiration Date V isits Requested Visits Authorized [id number] Closed Specialty Services Required 08/27/2024 02/26/2026 1 1 Reason for Visit * Other Medical (Routine) - Closed Specialty Diagnoses / Procedures Referred By José campbell Referred To Contact Neurology Diagnoses Dizziness on standing Procedures EEG Jyoti Tyler MD [address] [address] Phone: tel: fax: Referral ID Status Reason Start Date Expiration Date V isits Requested Visits Authorized [id number] Closed Specialty Services Required 08/27/2024 02/26/2026 1 1 Encounter Details Date Type Department Care Team (Latest Contact Info) Description 10/16/2024 7:56 AM EDT - 10/16/2024 11:59 PM EDT Hospital Encounter [facility] Neuro[facility]iology [address] [place] [address] Dizziness on standing Discharge Disposition: Home or [...] How often do you attend [facility] or latter-day services? Patient unable to answer 12/26/2023 Do you belong to any clubs o r organizations such as confucianism groups, unions, fraternal or athletic groups, or [...] Recorded Patient Health Questionnaire-2 Score 1 08/27/2024 [facility] - Occupational Stress Questionnaire Answer Date [...] tablet by mouth daily. 08/27/2024 HYDROcodone-aceta minophen ([place]) 5-325 MG tablet Take 1 tablet (5 [...] [address] [place] [address] Florentin Tillman MD [address] [place] [address] documented as of this encounter Procedures Procedure [...] After use, clean tip and replace cap. Ullvfvlfkql-Dyqizbyxo-Wcjdcc (Trelegy Ellipta) 100-62.5-25 MCG/ACT aerosol powder Inhale [...] Take 1 tablet by mouth daily. HYDROcodone-acetaminophen ([place]) 5-325 MG tablet Take 1 tablet (5 [...] documented as of this encounter Care Teams Inspector Finishing Relationship Specialty Start Date End Date Edi Chase MD [address] [place] [address] PCP - General 03/14/20 Sam Sanchez MD [address] [place] [address] Consulting Physician Pulmonary Disease 08/11/22 Cayetano Cannon MD 1210 [facility] [address] [place] [address] Referring Physician 08/11/22 documented as of this encounter
--- NOTE | 2024-10-19 09:00 | MR_ITS ---
FINAL REPORT CLINICAL HISTORY: Lung cancer. low back pain FINDINGS: Multiplanar MR imaging of the lumbar spine was performed without and with contrast. There is abnormal decreased signal at L2-3 and L3-4. There is moderate to advanced loss of height at these levels. There is loss of the normal lumbar lordosis. Abnormal decreased signal is seen at the remaining levels. The vertebral alignment is normal. There is no evidence of fracture. There are endplate reactive signal changes at the superior endplates at L2-3 and L3-4 levels and inferior endplate of the L4 vertebral body. Multiple bilateral renal cysts are identified. Individual cysts measure up to 6.4 cm on the left. T12-L1: No significant canal stenosis or neuroforaminal narrowing. L1-2: Mild diffuse disc bulge with mild bilateral neuroforaminal narrowing. L2-3: Mild to moderate diffuse disc bulge with mild to moderate bilateral neuroforaminal narrowing. L3-4: Mild diffuse disc bulge. Endplate hypertrophy eccentric to the right with mild to moderate right neuroforaminal narrowing. L4-5: Moderate diffuse disc bulge. Moderate right and mild to moderate left neuroforaminal narrowing. L5-S1: No significant canal stenosis or neuroforaminal narrowing. No abnormal contrast enhancement is identified. IMPRESSION: Multilevel degenerative disc disease, most pronounced at L2-3, L3-4, and L4-5. Reviewed, Interpreted and Dictated by Primitivo Rodriguez MD Transcribed by Nati Funez Authenticated and [facility]
--- OUTSIDE RECORDS SUMMARY | 2024-10-19 09:15 | XMS_ITS | Clinical Summary ---
Author Organization [facility] Address [address] [place] [address] Phone Care Team Providers Care Slp Name Role Phone Gala Osborne APRN Primary Care Physician [phone] [ ] Conditions or Problems Problem Name Problem Code Onset Date Status Entry Date Provider Comment Standard Description Annotate HEMATURIA NOS R31.9 (ICD-10-CM ) 05/11 Active 05/11 Gala Furnclayton AVILA Hematuria, unspecified ABNORMAL ELECTROCARDIO GRAM 797255886 (SNOMED CT) 05/11 Active 05/11 Gala Furnish RECREATION PROGRAM COORDINATOR Electrocardiogram abnormal BLINDNESS, BILATERAL 258412777 (SNOMED CT) 05/11 Active 05/11 Gala Furnclayton RECREATION PROGRAM COORDINATOR Blindness - both eyes HYPERTENSION 03942569 (SNOMED CT) 05/11 Active 05/11 Gala Furnish RECREATION PROGRAM COORDINATOR Hypertensive disorder FLANK PAIN, RIGHT 958133482 (SNOMED CT) 05/11 Active 05/11 Gala Furnish RECREATION PROGRAM COORDINATOR Flank pain CHEST PAIN NOS 27500497 (SNOMED CT) 05/11 Active 05/11 Gala Furnish RECREATION PROGRAM COORDINATOR Chest pain Medications Medication Instructions Start Date Stop Date Generic Name NDC Provider HYDROCODONE-ACET AMINOPHEN 5-325 MG TABS 1-2 po q 6 hours prn pain HYDROCODONE-ACET AMINOPHEN [id number] Gala Furnclayton RECREATION PROGRAM COORDINATOR CIPROFLOXACIN HCL 500 MG TABS Take 1 tablet by mouth twice a day CIPROFLOXACIN HCL [id number] Gala Furnclayton RECREATION PROGRAM COORDINATOR Medications Administered No information available. Allergies, Adverse [...] Procedures Code Procedure Name Date Entry Date CPT-82211 ECG; interpretation and report only (Medicare use [id number] + [id number]) CPT-32109 Urine Dip Auto CPT-97053 CMP (Outside Lab) Pharm Stress Test Pharmacologic Stress Test CPT-63385 Urine Culture (Outside Lab) Vital Signs Date [...]
--- OUTSIDE RECORDS SUMMARY | 2024-10-19 09:15 | XMS_ITS | Encounter Summary ---
Author Organization [facility] Address [address] [place] [address] Care Team Providers Care Shank Cutter Name Role Phone Edi Chase MD Primary Care Provider [phone] Sam Sacnhez MD Unavailable [phone] Cayetano Cannon MD Unavailable [phone] Encounter Details Date Type Department Care Team (Late st Contact Info) Description 09/30/2022 Lab Requisition [facility] [address] [place] [address] Lyn Santana MD [address] [place] [address] Malignant neoplasm of upper lobe, [...] Description 10/26/2024 1:20 PM EDT Office Visit [facility] [address] [place] [address] Florentin Tillman MD [address] [place] [address] documented as of this encounter Procedures Procedure Name Priority Date/Time Associated Diagnosis Comments AP MISCELLANEOUS LAB TEST (SO) Routine 09/08/2022 11:51 AM EDT Malignant neoplasm of upper lobe, left bronchus or lung (CMS/HCC) documented in this encounter Results * AP Miscellaneous Lab Test (09/08/2022 11:51 AM EDT) Test name MS Profile 10/15/2022 7:42 AM EDT [facility] Comment:[id number] Test Result see scan 10/15/2022 7:42 AM EDT [facility] See Scanned Result 10/15/2022 7:42 AM EDT [facility] Tissue 09/08/2022 11:5 1 AM EDT 09/30/2022 2:24 PM EDT Lyn Santana MD LAB REF LAB BLOOD AND FLUID ORD Final Result [facility] documented in this encounter Visit [...] documented as of this encounter Care Teams Shank Cutter Relationship Specialty Start Date End Date Edi Chase MD [address] [place] [address] PCP - General 03/14/20 Sam Sanchez MD [address] [place] [address] Consulting Physician Pulmonary Disease 08/11/22 Cayetano Cannon MD [address] [place] [address] Referring Physician 08/11/22 documented as of this encounter
--- OUTSIDE RECORDS SUMMARY | 2024-10-19 09:15 | XMS_ITS | Encounter Summary ---
Author Organization Healthcare Address [address] [place] [address] Care Team Providers Care Loop Drier Operator Name Role Phone Edi Chase MD Primary Care Provider [phone] Sam Sanchez MD Unavailable [phone] Cayetano Cannon MD Unavailable [phone] Encounter Details Date Type Department Care Team ([facility] st Contact Info) Description 01/05/2024 Orders Only External Location [address] [place] [address] Cedric Hinton MD [address] [place] [address] Social History Tobacco Use Types Packs/Day Years [...] often do you attend chur ch or restoration services? Patient unable to answer 12/26/2023 Do [...] unable to answer 12/26/2023 [facility] - Occupational Stress Questionnaire Answer Date Recorded [...] Description 10/26/2024 1:20 PM EDT Office Visit [place] [address] [facility] [address] [place] [address] Florentin Tillman MD [address] [place] [address] documented as of this encounter Procedures [...] documented as of this encounter Care Teams Loop Drier Operator Relationship Specialty Start Date End Date Edi Chase MD [address] [place] [address] PCP - General 03/14/20 Sam Sanchez MD [address] [place] [address] Consulting Physician Pulmonary Disease 08/11/22 Cayetano Cannon MD 1210 [facility] [address] [place], [place] [address] Referring Physician 08/11/22 documented as of this encounter
--- OUTSIDE RECORDS SUMMARY | 2024-10-19 09:16 | XMS_ITS | Encounter Summary ---
Author Organization [facility] Address [address] [place] [address] Care Team Providers Care Fender Mechanic Name Role Phone Edi Chase MD Primary Care Provider [phone] Sam Sanchez MD Unavailable [phone] Cayetano Cannon MD Unavailable [phone] Encounter Details Date Type Department Care Team (Late st Contact Info) Description 12/14/2023 Orders Only External Location [address] [place] [address] Cedric Hinton MD [address] [place] [id number] Social History Tobacco Use Types Packs/Day Years [...] Description 10/26/2024 1:20 PM EDT Office Visit [facility] [address] [place] [address] Florentin Tillman MD [address] [place] [address] documented as of this encounter Procedures Procedure [...] documented as of this encounter Care Teams Fender Mechanic Relationship Specialty Start Date End Date Edi Chase MD [address] [place] [address] PCP - General 03/14/20 Sam Sanchez MD [address] [place] [address] Consulting Physician Pulmonary Disease 08/11/22 Cayetano Cannon MD [address] [place] [address] Referring Physician 08/11/22 documented as of this encounter
--- OUTSIDE RECORDS SUMMARY | 2024-10-19 09:16 | XMS_ITS | Encounter Summary ---
Author Organization [facility] Address [address] [place] [address] Care Team Providers Care Pattern Maker Programer Name Role Phone Edi Chase MD Primary Care Provider Sam Sanchez MD Unavailable Cayetano Cannon MD Unavailable [phone] Encounter Details Date Type Department Care Team (Late st Contact Info) Description 07/08/2022 Orders Only External Location [address] [place] [address] Armani Lopez [address] [place] [address] Social History Tobacco Use Types [...] Description 10/26/2024 1:20 PM EDT Office Visit [address] [place] [address] Florentin Tillman MD [address] [place] [address] documented as of this encounter Procedures Procedure [...] documented as of this encounter Care Teams Pattern Maker Programer Relationship Specialty Start Date End Date Edi Chase MD [address] [place] [address] PCP - General 03/14/20 Sam Sanchez MD [address] [place] [address] Consulting Physician Pulmonary Disease 08/11/22 Cayetano Cannon MD [address] [place] [address] Referring Physician 08/11/22 documented as of this encounter
--- OUTSIDE RECORDS SUMMARY | 2024-10-19 09:16 | XMS_ITS | Encounter Summary ---
Author Organization Healthcare Address [address] [place] [address] Care Team Providers Care Biological Chemist Name Role Phone Edi Chase MD Primary Care Provider [phone] Sam Sanchez MD Unavailable [phone] Cayetano Cannon MD Unavailable [phone] Encounter Details Date Type Department Care Team (Late st Contact Info) Description 12/26/2023 Lab Requisition [facility] [address] [place] [address] Amado Horton MD [address] [facility] [address] [place] [address] Encounter for general adult medical [...] How often do you attend chur or anabaptism services? Patient unable to answer 12/26/2023 Do [...] one occasion? Patient unable to answer 12/26/2023 [facility] - Occupational Stress Questionnaire Answer Date Recorded [...] 1:20 PM EDT Office Visit [facility] [address] [place] [address] Florentin Tillman MD [address] [place] [address] documented as of this encounter Procedures Procedure [...] Final Result [facility] [address] [place] [address] documented in this encounter Visit Diagnoses Diagnosis [...] documented as of this encounter Care Teams Biological Chemist Relationship Specialty Start Date End Date Edi Chase MD [address] [place] [address] PCP - General 03/14/20 Sam Sanchez MD [address] [place] [address] Consulting Physician Pulmonary Disease 08/11/22 Cayetano Cannon MD [address] [facility] [address] [place] [address] Referring Physician 08/11/22 documented as of this encounter
--- OUTSIDE RECORDS SUMMARY | 2024-10-19 09:16 | XMS_ITS | Encounter Summary ---
Author Organization Healthcare Address [address] [place] [address] Care Team Providers Care Comb Setter Name Role Phone Edi Chase MD Primary Care Provider [phone] Sam Sanchez MD Unavailable [phone] Cayetano Cannon MD Unavailable [phone] Encounter Details Date Type Department Care Team (Late st Contact Info) Description 12/12/2023 Orders Only External Location [address] [place] [address] Provider, External Social History Tobacco Use Types [...] Description 10/26/2024 1:20 PM EDT Office Visit [facility] [address] [place] [address] Florentin Tillman MD [address] [place] [address] documented as of this encounter Procedures Procedure [...] documented as of this encounter Care Teams Comb Setter Relationship Specialty Start Date End Date Edi Chase MD [address] [facility] [place] [address] PCP - General 03/14/20 Sam Sanchez MD [address] [place] [address] Consulting Physician Pulmonary Disease 08/11/22 Cayetano Cannon MD [address] [facility] [address] [place] [address] Referring Physician 08/11/22 documented as of this encounter
--- OUTSIDE RECORDS SUMMARY | 2024-10-19 09:17 | XMS_ITS | Clinical Summary ---
Author Organization Healthcare Address [address] [place] [address] Care Team Providers Care Cardiovascular Technician Name Role Phone Edi Chase MD Primary Care Provider [phone] Sam Sanchez MD Unavailable [phone] Cayetano Cannon MD Unavailable Allergies No known active allergies Medications loperamide [...] (one) time each day. Active HYDROcodone-acet aminophen ([place]) 5-325 MG tablet Take 1 tablet (5 [...] [address] [place] [address] Dizziness on standing Discharge Disposition: Home or Self Care 10/16/2024 Travel 08/27/2024 1:00 PM EDT Consult [place] [facility] [address] [place] [address] Cuong Catherine MD Dizziness on standing (Primary Dx); Nonintractable episodic headache, unspecified headache type; Cerebrovascular accident (CVA), unspecified mechanism (CMS/HCC) 08/27/2024 Travel 08/22/2024 Telephone [place] [facility] [address], [address] [place] [address] Cuong Catherine MD from Last [...] answer 12/26/2023 How often do you attend [facility] or spiritism services? Patient unable to answer 12/26/2023 Do you belong to any clubs o r organizations such as samaritan groups, unions, fraternal or athletic groups, or [...] Recorded Patient Health Questionnaire-2 Score 1 08/27/2024 [facility] - Occupational [...] Recorded In the past 12 months has [employer], gas, oil, or water [employer] threatened to shut off services in your [...] Description 10/26/2024 1:20 PM EDT Office Visit [facility] [address] [place] [address] Florentin Tillman MD [address] [place] [address] Health Maintenance Due Date Last Done Comments [facility]-Medicare Annual Wellness (AWV) 1950 [facility]-/Child/Adol SDOH Screenings 1950 [facility]-DTaP,Tdap,and Td Vaccines (1 - Tdap) 08/31/1967 [facility]-Pneumococcal Vaccine: 50+ Years (1 of 2 - PCV) 08/31/1967 [facility]-Zoster Vaccines (1 of 2) 08/31/1967 SDS-HNTVT-36 Vaccine (3 - Pfizer risk series) 05/10/2020 [...] After use, clean tip and replace cap. Yrnxundebrh-Zfpwflszi-Jbxhds (Trelegy Ellipta) 100-62.5-25 MCG/ACT aerosol powder Inhale [...] Take 1 tablet by mouth daily. HYDROcodone-acetaminophen ([place]) 5-325 MG tablet Take 1 tablet (5 [...] Antibody Negative Negative 12/23/2023 6:55 PM EDT [facility] Blood Venous blood specimen / Unknown Venipuncture / Unknown 12/23/2023 5:39 PM EDT 12/23/2023 6:04 PM EDT Med Lyn MD LAB BLOOD ORDERABLES Final Result [facility] [address] [place] [address] * (ABNORMAL) Hemoglobin A1c (12/23/2023 5:39 PM EDT) Hemoglobin A1c 6.3(H) <5.7 % 12/24/2023 12:22 AM EDT [facility] Blood Venous blood specimen / Unknown Venipuncture / Unknown 12/23/2023 5:39 PM EDT 12/23/2023 5:55 PM EDT Narrative [facility] - 12/24/2023 12:22 AM EDT HA1C Interpretive Data: Diagnosis of Diabetes: Diabetic > or = 6.5% Pre-diabetic 5.7 to 6.4% Non-diabetic < or = 5.6% Glycemic Targets for Type I and Type II Diabetics: Non- Adults <7.0% Adults <6.0% Children and Adolescents <7.5% Source: [place] Diabetes Association. Standards of medical care in diabetes,2017. Diabetes Care.2017:40 (suppl 1):S1-S135. HbA1c assay performed by an ion-exchange chromatography method that is certified traceable to the DCCT. 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 Yes Care Teams Cardiovascular Technician Relationship Specialty Start Date End Date Edi Chase MD [address] [place] [address] PCP - General 03/14/20 Sam Sanchez MD [address] [place] [address] Consulting Physician Pulmonary Disease 08/11/22 Cayetano Cannon MD 1210 [facility] [address] [place] [address] Referring Physician 08/11/22
--- OUTSIDE RECORDS SUMMARY | 2024-10-19 09:17 | XMS_ITS | Encounter Summary ---
Author Organization [facility] Address [address] [place] [address] Care Team Providers Care Telecommunications Field Engineer Name Role Phone Edi Chase MD Primary Care Provider [phone] Sam Sanchez MD Unavailable [phone] Cayetano Cannon MD Unavailable [phone] Encounter Details Date Type Department Care [...] How often do you attend chur or episcopal services? Patient unable to answer 12/26/2023 Do you belong to any clubs o r organizations such as worship groups, unions, fraternal or athletic groups, or [...] Recorded Patient Health Questionnaire-2 Score 1 08/27/2024 [facility] - Occupational Stress [...] Description 10/26/2024 1:20 PM EDT Office Visit [facility] [address] [place] [address] Florentin Tillman MD [address] [place] [address] documented as of this encounter [...] documented as of this encounter Care Teams Telecommunications Field Engineer Relationship Specialty Start Date End Date Edi Chase MD [address] [facility] [place] [address] PCP - General 03/14/20 Sam Sanchez MD [address] [place] [address] Consulting Physician Pulmonary Disease 08/11/22 Cayetano Cannon MD [address] [place] [address] Referring Physician 08/11/22 documented as of this encounter
--- OUTSIDE RECORDS SUMMARY | 2024-10-19 09:17 | XMS_ITS | Encounter Summary ---
Author Organization [facility] Address [address] [place] [address] Care Team Providers Care Bioinformatics Engineer Name Role Phone Edi Chase MD Primary Care Provider [phone] Sam Sanchez MD Unavailable [phone] Cayetano Cannon MD Unavailable [phone] Encounter Details Date Type Department Care [...] Health Questionnaire-2 Score 1 08/27/2024 [facility] - Occupational Stress Questionnaire Answer Date [...] Description 10/26/2024 1:20 PM EDT Office Visit [facility] [address] [place] [address] Florentin Tillman MD [address] [place] [address] documented as of this encounter Visit [...] documented as of this encounter Care Teams Bioinformatics Engineer Relationship Specialty Start Date End Date Edi Chase MD [address] [facility] [place] [address] PCP - General 03/14/20 Sam Sanchez MD [address] [place] [address] Consulting Physician Pulmonary Disease 08/11/22 Cayetano Cannon MD [address] [place], [place] [address] Referring Physician 08/11/22 documented as of this encounter
--- OUTSIDE RECORDS SUMMARY | 2024-10-19 09:17 | XMS_ITS | Clinical Summary ---
Author Organization [facility] Address [address] [place] [address] Phone Care Team Providers Care Certified Tower Climber Name Role Phone Unavailable Primary Care Provider [...] this topic Medical Devices Implanted Type Area Jeweler Apprentice Device Identifier Shelf Expiration Date Model / Serial / Lot Stent Coronary Vision Rx 3.50mm X 18mm - [id number] Implanted:Qty: 1 on 03/16/2010 at [facility] [employer] Explanted:at [employer] (Quantity not on file) Stent-Vis ion [facility]:VASC DEV [id number] / / [id number] Insurance [place]ARE [place] A [place] B [place] [id number] [place] [address] [place]
--- OUTSIDE RECORDS SUMMARY | 2024-10-19 09:17 | XMS_ITS | Encounter Summary ---
Author Organization [facility] Address [address] [place] [id number] Care Team Providers Care Slurry Control Tender Name Role Phone Edi Chase MD Primary Care Provider [phone] Sam Sanchez MD Unavailable [phone] Cayetano Cannon MD Unavailable [phone] Encounter Details Date Type Department Care Team (Late st Contact Info) Description 08/22/2024 Telephone [facility] [address] [place] [address] Cuong Catherine MD [address] [place] [id number] Social History Tobacco Use Types Packs/Day Years [...] often do you attend chur ch or taoist services? Patient unable to answer 12/26/2023 Do [...] one occasion? Patient unable to answer 12/26/2023 [facility] - Occupational Stress [...] confirm 6-16 appt. Spoke with Devin at [facility], she will check with radiology scheduler. Gave phone number and address. documented in this encounter Plan of Treatment Upcoming Encounters Date Type Department Care Team (Late st Contact Info) Description 10/26/2024 1:20 PM EDT Office Visit [facility] [address] [place] [address] Florentin Tillman MD [address] [place] [address] documented as of this encounter Visit [...] documented as of this encounter Care Teams Slurry Control Tender Relationship Specialty Start Date End Date Edi Chase MD [address] [place] [address] PCP - General 03/14/20 Sam Sanchez MD [address] [place] [address] Consulting Physician Pulmonary Disease 08/11/22 Cayetano Cannon MD [address] [place] [address] Referring Physician 08/11/22 documented as of this encounter
[2024-10-19] MEDS: SODIUM CHLORIDE 0.9% 10ML SYR (RAD ONLY) 10 ML IV (09:52)
[2024-10-19] MEDS: GADOTERIDOL INJ 20ML SYRINGE 24 ML IV (09:52)
== END 2024-10-19 23:59 | disposition home or self-care (01) ==
LOC: RAD 09:13
PROVIDERS: PCP Family Medicine; Visit Provider Internal Medicine Medical Oncology
DX: C34.90 Malignant neoplasm of unspecified part of unspecified bronchus or lung (principal); M51.369 Other intervertebral disc degeneration, lumbar region without mention of lumbar back pain or lower extremity pain
CPT/HCPCS: 72158; A9576

== ENCOUNTER 2024-10-22 07:54 | Outpatient (CLI) | payer MEDICARE, MEDICAID, SELFPAY ==
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
--- OUTSIDE RECORDS SUMMARY | 2024-10-16 07:56 | XMS_ITS | Encounter Summary ---
Author Organization [facility] Address [address] [place] [address] Care Team Providers Care Sheet Metal Helper Name Role Phone Edi Chase MD Primary Care Provider [phone] Sam Sanchez MD Unavailable [phone] Cayetano Cannon MD Unavailable [phone] Reason for Referral * Other Medical (Routine) - Closed Specialty Diagnoses / Procedures Referred By José campbell Referred To Contact Neurology Diagnoses Dizziness on standing Procedures EEG Jyoti Tyler MD [address] [address] Phone: tel: fax: Referral ID Status Reason Start Date Expiration Date V isits Requested Visits Authorized [id number] Closed Specialty Services Required 08/27/2024 02/26/2026 1 1 Reason for Visit * Other Medical (Routine) - Closed Specialty Diagnoses / Procedures Referred By José campbell Referred To Contact Neurology Diagnoses Dizziness on standing Procedures EEG Jyoti Tyler MD [address] [address] Phone: tel: fax: Referral ID Status Reason Start Date Expiration Date V isits Requested Visits Authorized [id number] Closed Specialty Services Required 08/27/2024 02/26/2026 1 1 Encounter Details Date Type Department Care Team (Latest Contact Info) Description 10/16/2024 7:56 AM EDT - 10/16/2024 11:59 PM EDT Hospital Encounter [facility] [address] [place] [address] Dizziness on standing Discharge Disposition: Home or [...] [facility] attend [facility] or nondenominational services? Patient unable to answer 12/26/2023 Do [...] Recorded Patient Health Questionnaire-2 Score 1 08/27/2024 [facility] - Occupational Stress Questionnaire Answer Date [...] tablet by mouth daily. 08/27/2024 HYDROcodone-aceta minophen ([place]) 5-325 MG tablet Take 1 tablet (5 [...] Description 10/26/2024 1:20 PM EDT Office Visit [facility] [address] [place] [address] Florentin Tillman MD [address] [place] [address] documented as of this encounter Procedures Procedure [...] After use, clean tip and replace cap. Anxdwqhctic-Pommsttpa-Ygblwc (Trelegy Ellipta) 100-62.5-25 MCG/ACT aerosol powder Inhale [...] Take 1 tablet by mouth daily. HYDROcodone-acetaminophen ([place]) 5-325 MG tablet Take 1 tablet (5 [...] documented as of this encounter Care Teams Sheet Metal Helper Relationship Specialty Start Date End Date Edi Chase MD [address] [place] [address] PCP - General 03/14/20 Sam Sanchez MD [address] [place] [address] Consulting Physician Pulmonary Disease 08/11/22 Cayetano Cannon MD 1210 [facility] [address] [place] [address] Referring Physician 08/11/22 documented as of this encounter
--- OUTSIDE RECORDS SUMMARY | 2024-10-22 07:57 | XMS_ITS | Encounter Summary ---
Author Organization Healthcare Address [address] [place] [address] Care Team Providers Care Retail Loss Prevention Investigator Name Role Phone Edi Chase MD Primary Care Provider [phone] Sam Sanchez MD Unavailable [phone] Cayetano Cannon MD Unavailable [phone] Encounter Details Date Type Department Care Team ([facility] st Contact Info) Description 01/05/2024 Orders Only External Location [address] [place] [address] Cedric Hinton MD [address] [place] [address] Social History Tobacco Use Types Packs/Day Years [...] often do you attend chur ch or pentecostalism services? Patient unable to answer [...] one occasion? Patient unable to answer 12/26/2023 [facility] - Occupational Stress Questionnaire Answer Date Recorded [...] Description 10/26/2024 1:20 PM EDT Office Visit [place] [address] [facility] [address] [place] [address] Florentin Tillman MD [address] [place] [address] documented as of this encounter Procedures [...] documented as of this encounter Care Teams Retail Loss Prevention Investigator Relationship Specialty Start Date End Date Edi Chase MD [address] [place] [address] PCP - General 03/14/20 Sam Sanchez MD [address] [place] [address] Consulting Physician Pulmonary Disease 08/11/22 Cayetano Cannon MD [address] [facility] [address] [place], [place] [address] Referring Physician 08/11/22 documented as of this encounter
--- OUTSIDE RECORDS SUMMARY | 2024-10-22 07:57 | XMS_ITS | Clinical Summary ---
Author Organization [facility] Address [address] [address] Phone Care Team Providers Care Jewel Bearing Turner Name Role Phone Gala Osborne APRN Primary Care Physician [ ] Conditions or Problems Problem Name Problem Code Onset Date Status Entry Date Provider Comment Standard Description Annotate HEMATURIA NOS R31.9 (ICD-10-CM ) 05/11 Active 05/11 Gala Furnclayton AVILA Hematuria, unspecified ABNORMAL ELECTROCARDIO GRAM 119507867 (SNOMED CT) 05/11 Active 05/11 Gala Furnish DRUM BUILDER Electrocardiogram abnormal BLINDNESS, BILATERAL 688778289 (SNOMED CT) 05/11 Active 05/11 Gala Furnclayton DRUM BUILDER Blindness - both eyes HYPERTENSION 79242606 (SNOMED CT) 05/11 Active 05/11 Gala Furnish DRUM BUILDER Hypertensive disorder FLANK PAIN, RIGHT 879728601 (SNOMED CT) 05/11 Active 05/11 Gala Furnish DRUM BUILDER Flank pain CHEST PAIN NOS 06340687 (SNOMED CT) 05/11 Active 05/11 Gala Furnish DRUM BUILDER Chest pain Medications Medication Instructions Start Date Stop Date Generic Name NDC Provider HYDROCODONE-ACET AMINOPHEN 5-325 MG TABS 1-2 po q 6 hours prn pain HYDROCODONE-ACET AMINOPHEN [id number] Gala Furnclayton DRUM BUILDER CIPROFLOXACIN HCL 500 MG TABS Take 1 tablet by mouth twice a day CIPROFLOXACIN HCL [id number] Gala Furnclayton DRUM BUILDER Medications Administered No information available. Allergies, Adverse [...] Procedures Code Procedure Name Date Entry Date CPT-21220 ECG; interpretation and report only (Medicare use 66056 + [address]) CPT-26940 Urine Dip Auto CPT-26490 CMP (Outside Lab) Pharm Stress Test Pharmacologic Stress Test CPT-03088 Urine Culture (Outside Lab) Vital Signs Date [...]
--- OUTSIDE RECORDS SUMMARY | 2024-10-22 07:57 | XMS_ITS | Encounter Summary ---
Author Organization Healthcare Address [address] [place] [address] Care Team Providers Care Behavior Clinician Name Role Phone Edi Chase MD Primary Care Provider [phone] Sam Sanchez MD Unavailable [phone] Cayetano Cannon MD Unavailable [phone] Encounter Details Date Type Department Care Team (Late st Contact Info) Description 12/12/2023 Orders Only External Location [address] [place] [address] Provider, External Social History Tobacco Use Types [...] Description 10/26/2024 1:20 PM EDT Office Visit [facility] [address] [place] [address] Florentin Tillman MD [address] [place] [address] documented as of this encounter Procedures Procedure [...] documented as of this encounter Care Teams Behavior Clinician Relationship Specialty Start Date End Date Edi Chase MD [address] [facility] [place] [address] PCP - General 03/14/20 Sam Sanchez MD [address] [place] [address] Consulting Physician Pulmonary Disease 08/11/22 Cayetano Cannon MD 1210 [facility] [address] [place] [address] Referring Physician 08/11/22 documented as of this encounter
--- OUTSIDE RECORDS SUMMARY | 2024-10-22 07:57 | XMS_ITS | Encounter Summary ---
Author Organization [facility] Address [address] [place] [address] Care Team Providers Care Locomotive Repairer Diesel Name Role Phone Edi Chase MD Primary Care Provider [phone] Sam Sanchez MD Unavailable [phone] Cayetano Cannon MD Unavailable [phone] Encounter Details Date Type Department Care Team (Late st Contact Info) Description 09/30/2022 Lab Requisition [facility] [address] [place] [address] Lyn Santana MD [address] [place] [address] Malignant neoplasm of upper lobe, [...] Description 10/26/2024 1:20 PM EDT Office Visit [facility] [address] [place] [address] Florentin Tillman MD [address] [place] [address] documented as of this encounter Procedures Procedure Name Priority Date/Time Associated Diagnosis Comments AP MISCELLANEOUS LAB TEST (SO) Routine 09/08/2022 11:51 AM EDT Malignant neoplasm of upper lobe, left bronchus or lung (CMS/HCC) documented in this encounter Results * AP Miscellaneous Lab Test (09/08/2022 11:51 AM EDT) Test name OR Profile 10/15/2022 7:42 AM EDT [facility] Comment:[id number] Test Result see scan 10/15/2022 7:42 AM EDT [facility] See Scanned Result 10/15/2022 7:42 AM EDT [facility] Tissue 09/08/2022 11:5 1 AM EDT 09/30/2022 2:24 PM EDT Lyn Santana MD LAB REF LAB BLOOD AND FLUID ORD Final Result [facility] documented in this encounter Visit [...] documented as of this encounter Care Teams Locomotive Repairer Diesel Relationship Specialty Start Date End Date Edi Chase MD [address] [place] [address] PCP - General 03/14/20 Sam Sanchez MD [address] [place] [address] Consulting Physician Pulmonary Disease 08/11/22 Cayetano Cannon MD [address] [place] [address] Referring Physician 08/11/22 documented as of this encounter
--- OUTSIDE RECORDS SUMMARY | 2024-10-22 07:58 | XMS_ITS | Clinical Summary ---
Author Organization Healthcare Address [address] [place] [address] Care Team Providers Care Registered Public Surveyor Name Role Phone Edi Chase MD Primary Care Provider [phone] Sam Sanchez MD Unavailable [phone] Cayetano Cannon MD Unavailable [phone] Allergies No known active allergies Medications [...] (one) time each day. Active HYDROcodone-acet aminophen (Aurora) 5-325 MG tablet Take 1 tablet (5 [...] [address] [place] [address] Dizziness on standing Discharge Disposition: Home or Self Care 10/16/2024 Travel 08/27/2024 1:00 PM EDT Consult [place] [facility] [address], [address] [place] [address] Cuong Catherine MD Dizziness on standing (Primary Dx); Nonintractable episodic headache, unspecified headache type; Cerebrovascular accident (CVA), unspecified mechanism (CMS/HCC) 08/27/2024 Travel 08/22/2024 Telephone [place] [facility] [address], [address] [place] [address] Cuong Catherine MD from Last [...] answer 12/26/2023 How often do you attend [facility] or catholic services? Patient unable to [...] Recorded Patient Health Questionnaire-2 Score 1 08/27/2024 [facility] - Occupational [...] Recorded In the past 12 months has [employer], gas, oil, or water [employer] threatened to shut off services in your [...] Description 10/26/2024 1:20 PM EDT Office Visit [facility] [address] [place] [address] Florentin Tillman MD [address] [place] [address] Health Maintenance Due Date Last Done Comments [facility]-Medicare Annual Wellness (AWV) 1950 [facility]-/Child/Adol SDOH Screenings 1950 [facility]-DTaP,Tdap,and Td Vaccines (1 - Tdap) 08/31/1967 [facility]-Pneumococcal Vaccine: 50+ Years (1 of 2 - PCV) 08/31/1967 [facility]-Zoster Vaccines (1 of 2) 08/31/1967 [facility]-[id number]-16 Vaccine (3 - Pfizer risk series) 05/10/2020 [...] After use, clean tip and replace cap. Jtkrqjafabc-Ycmfhoqar-Yyqflr (Trelegy Ellipta) 100-62.5-25 MCG/ACT aerosol powder Inhale [...] Take 1 tablet by mouth daily. HYDROcodone-acetaminophen (Aurora) 5-325 MG tablet Take 1 tablet (5 [...] Antibody Negative Negative 12/23/2023 6:55 PM EDT [facility] Blood Venous blood specimen / Unknown Venipuncture / Unknown 12/23/2023 5:39 PM EDT 12/23/2023 6:04 PM EDT Med Lyn MD LAB BLOOD ORDERABLES Final Result [facility] [address] [place] [address] * (ABNORMAL) Hemoglobin A1c (12/23/2023 5:39 PM EDT) Hemoglobin A1c 6.3(H) <5.7 % 12/24/2023 12:22 AM EDT [facility] Blood Venous blood specimen / Unknown Venipuncture / Unknown 12/23/2023 5:39 PM EDT 12/23/2023 5:55 PM EDT Narrative [facility] - 12/24/2023 12:22 AM EDT HA1C Interpretive Data: Diagnosis of Diabetes: Diabetic > or = 6.5% Pre-diabetic 5.7 to 6.4% Non-diabetic < or = 5.6% Glycemic Targets for Type I and Type II Diabetics: Non- Adults <7.0% Adults <6.0% Children and Adolescents <7.5% Source: [place] [employer]. Standards of medical care in diabetes,2017. Diabetes Care.2017:40 (suppl 1):S1-S135. HbA1c assay performed by an ion-exchange chromatography method that is certified traceable to the DCCT. 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 Yes Care Teams Registered Public Surveyor Relationship Specialty Start Date End Date Edi Chase MD [address] [place] [address] PCP - General 03/14/20 Sam Sanchez MD [address] [place] [address] Consulting Physician Pulmonary Disease 08/11/22 Cayetano Cannon MD [address] [facility] [address] [place] [address] Referring Physician 08/11/22
--- OUTSIDE RECORDS SUMMARY | 2024-10-22 07:58 | XMS_ITS | Clinical Summary ---
Author Organization [facility] Address [address] [place] [address] Phone Care Team Providers Care Chef De Froid Name Role Phone Unavailable Primary Care Provider [...] this topic Medical Devices Implanted Type Area Coffee Roaster Device Identifier Shelf Expiration Date Model / Serial / Lot Stent Coronary Vision Rx 3.50mm X 18mm - [id number] Implanted:Qty: 1 on 03/16/2010 at [employer] Explanted:at [employer] (Quantity not on file) Stent-Vis ion [facility] LAB:VASC DEV [id number] / / [id number] Insurance [place] [address] [place] [address] [place]
--- OUTSIDE RECORDS SUMMARY | 2024-10-22 07:58 | XMS_ITS | Encounter Summary ---
Author Organization [facility] Address [address] [place] [address] Care Team Providers Care Histologist Name Role Phone Edi Chase MD Primary Care Provider Sam Sanchez MD Unavailable [phone] Cayetano Cannon MD Unavailable [phone] Encounter Details Date Type Department Care [...] How often do you attend chur or congregation services? Patient unable to answer 12/26/2023 Do [...] Score 1 08/27/2024 [facility] - Occupational Stress Questionnaire Answer Date [...] Office Visit [facility] [address] [place] [address] Florentin Tillman MD [address] [place] [address] documented as of this encounter [...] documented as of this encounter Care Teams Histologist Relationship Specialty Start Date End Date Edi Chase MD [address] [place] [address] PCP - General 03/14/20 Sam Sanchez MD [address] [place] [address] Consulting Physician Pulmonary Disease 08/11/22 Cayetano Cannon MD [address] [place] [address] Referring Physician 08/11/22 documented as of this encounter
--- OUTSIDE RECORDS SUMMARY | 2024-10-22 07:58 | XMS_ITS | Encounter Summary ---
Author Organization Healthcare Address [address] [place] [address] Care Team Providers Care Rubber Tester Name Role Phone Edi Chase MD Primary Care Provider [phone] Sam Sanchez MD Unavailable [phone] Cayetano Cannon MD Unavailable [phone] Encounter Details Date Type Department Care Team (Late st Contact Info) Description 12/26/2023 Lab Requisition [facility] [address] [place] [address] Amado Horton MD [address] [facility] [address] [place] [address] Encounter for general adult medical [...] How often do you attend chur or alevism services? Patient unable to answer 12/26/2023 Do you belong to any clubs o r organizations such as denominational groups, unions, fraternal or athletic groups, or [...] one occasion? Patient unable to answer 12/26/2023 [facility] - Occupational Stress Questionnaire Answer Date [...] [facility] [address] [place] [address] Florentin Tillman MD [address] [place] [address] documented as of this encounter Procedures Procedure [...] Final Result [facility] [address] [place] [address] documented in this encounter Visit Diagnoses Diagnosis [...] documented as of this encounter Care Teams Rubber Tester Relationship Specialty Start Date End Date Edi Chase MD [address] [place] [address] PCP - General 03/14/20 Sam Sanchez MD [address] [place] [address] Consulting Physician Pulmonary Disease 08/11/22 Cayetano Cannon MD [address] [facility] [address] [place] [address] Referring Physician 08/11/22 documented as of this encounter
--- OUTSIDE RECORDS SUMMARY | 2024-10-22 07:58 | XMS_ITS | Encounter Summary ---
Author Organization [facility] Address [address] [place] [address] Care Team Providers Care Aircraft Hydraulic Equipment Mechanic Name Role Phone Edi Chase MD Primary Care Provider [phone] Sam Sanchez MD Unavailable [phone] Cayetano Cannon MD Unavailable [phone] Encounter Details Date Type Department Care [...] How often do you attend chur or jainism services? Patient unable to answer [...] Recorded Patient Health Questionnaire-2 Score 1 08/27/2024 [facility] - Occupational Stress Questionnaire Answer [...] [place] [address] Florentin Tillman MD [address] [place] [address] documented as of this encounter Visit [...] documented as of this encounter Care Teams Aircraft Hydraulic Equipment Mechanic Relationship Specialty Start Date End Date Edi Chase MD [address] [place] [address] PCP - General 03/14/20 Sam Sanchez MD [address] [place] [address] Consulting Physician Pulmonary Disease 08/11/22 Cayetano Cannon MD [address] [place], [place] [address] Referring Physician 08/11/22 documented as of this encounter
--- OUTSIDE RECORDS SUMMARY | 2024-10-22 07:58 | XMS_ITS | Encounter Summary ---
Author Organization [facility] Address [address] [place] [address] Care Team Providers Care Seconds Grader Name Role Phone Edi Chase MD Primary Care Provider [phone] Sam Sanchez MD Unavailable Cayetano Cannon MD Unavailable [phone] Encounter Details Date Type Department Care Team (Late st Contact Info) Description 07/08/2022 Orders Only External Location [address] [place] [address] Armani [place] [address] [address] [place] [address] Social History Tobacco Use Types [...] Description 10/26/2024 1:20 PM EDT Office Visit [address] [place] [address] Florentin Tillman MD [address] [place] [address] documented as of this encounter Procedures Procedure [...] documented as of this encounter Care Teams Seconds Grader Relationship Specialty Start Date End Date Edi Chase MD [address] [place] [address] PCP - General 03/14/20 Sam Sanchez MD [address] [place] [address] Consulting Physician Pulmonary Disease 08/11/22 Cayetano Cannon MD [address] [place] [address] Referring Physician 08/11/22 documented as of this encounter
--- OUTSIDE RECORDS SUMMARY | 2024-10-22 07:58 | XMS_ITS | Encounter Summary ---
Author Organization [facility] Address [address] [place] [address] Care Team Providers Care Refinery Operator Visbreaking Name Role Phone Edi Chase MD Primary Care Provider [phone] Sam Sanchez MD Unavailable [phone] Cayetano Cannon MD Unavailable [phone] Encounter Details Date Type Department Care Team (Late st Contact Info) Description 12/14/2023 Orders Only External Location [address] [place] [address] Cedric Hinton MD [address] [place] [id number] Social History Tobacco Use Types Packs/Day Years [...] Description 10/26/2024 1:20 PM EDT Office Visit [facility] [address] [place] [address] Florentin Tillman MD [address] [place] [address] documented as of this encounter Procedures Procedure [...] documented as of this encounter Care Teams Refinery Operator Visbreaking Relationship Specialty Start Date End Date Edi Chase MD [address] [place] [address] PCP - General 03/14/20 Sam Sanchez MD [address] [place] [address] Consulting Physician Pulmonary Disease 08/11/22 Cayetano Cannon MD [address] [place] [id number] Referring Physician 08/11/22 documented as of this encounter
[2024-10-22 07:59] LABS: Microscopic, Urine URINE MICROSCOPIC (MICROSCOPIC)
[2024-10-22 08:17] LABS: Hematocrit 27.9 % (42.0-52.0); Hemoglobin 8.4 g/dL (14.1-18.0); Immature Granulocytes % 0.3 %; Mean Corpuscular HGB Conc 30.1 g/dL (31.8-35.4); Mean Corpuscular Hemoglobin 27.5 pg (27.0-31.2); Mean Corpuscular Volume 91.5 fl (80-94); Nucleated Red Blood Cells % 0 %; Platelet Count 235 K/mm3 (142-424); Red Blood Count 3.05 M/mm3 (4.60-6.20); Red Cell Distribution Width-SD 52.1 fL; White Blood Count 6.3 K/mm3 (4.8-10.8)
[2024-10-22 08:41] LABS: Iron 32 ug/dL (49-181)
[2024-10-22 08:47] LABS: Bilirubin,Urine Negative (Negative); Color,Urine YELLOW (Yellow); Glucose,Urine (UA) Negative (Negative); Ketones,Urine Negative (Negative); Leukocyte Esterase,Urine 3+ (Negative); PH,Urine 6.0 (5.0-8.5); Protein,Urine 2+ (Negative); Specific Gravity, Urine 1.015 (1.005-1.030); Urobilinogen,Urine 0.2 EU/dl (0.2)
[2024-10-22 08:52] LABS: Total Iron Binding Capacity 245 ug/dL (261-462)
[2024-10-22 09:17] LABS: Ferritin 87.1 ng/ml (17.9-464)
[2024-10-22 09:21] LABS: Bacteria,Urine 4+ /lpf; WBC,Urine 20-50 #/hpf (0-3)
== END 2024-10-22 23:59 | disposition home or self-care (01) ==
PROVIDERS: PCP Family Medicine; Visit Provider Family Medicine
DX: E61.1 Iron deficiency (principal)
CPT/HCPCS: 36415; 81001; 82728; 83540; 83550; 85025; 87086; 87088; 87186

== ENCOUNTER 2024-10-24 09:32 | Outpatient (CLI) | payer MEDICARE, MEDICAID, SELFPAY ==
--- OUTSIDE RECORDS SUMMARY | 2024-08-27 13:00 | XMS_ITS | Encounter Summary ---
Author Organization [facility] Address [address] [place] [address] Care Team Providers Care Building Rigger Name Role Phone Edi Chase MD Primary Care Provider Sam Sanchez MD Unavailable [phone] Cayetano Cannon MD Unavailable [phone] Reason for Referral * Other Medical (Routine) - Closed Specialty Diagnoses / Procedures Referred By José campbell Referred To Contact Neurology Diagnoses Dizziness on standing Procedures EEG Jyoti [place] MD [address] [facility] [address] [place] [address] Phone: tel: fax: Referral ID Status Reason Start Date Expiration Date V isits Requested Visits Authorized [id number] Closed Specialty Services Required 08/27/2024 02/26/2026 1 1 Reason for Visit * Consultation (Routine) - Closed Specialty Diagnoses / Procedures Referred By José campbell Referred To Contact Neurology Diagnoses Syncope and collapse Malignant neoplasm of unspecified part of unspecified bronchus or lung (CMS/HCC) Miriam Baugh, ASSEMBLY ROOM SUPERVISOR [address] [place] [address] Phone: tel: fax: Referral ID Status Reason Start Date Expiration Date V isits Requested Visits Authorized [id number] Closed Specialty Services Required 01/24/2024 07/25/2025 1 1 Encounter Details Date Type Department Care Team (Late st Contact Info) Description 08/27/2024 1:00 PM EDT Consult [place] [facility] [address], [address] [place] [address] Cuong Catherine MD [address] [place] [address] Dizziness on standing (Primary Dx); Nonintractable episodic [...] How often do you attend chur or synagogue services? Patient unable to answer 12/26/2023 Do you belong to any clubs o r organizations such as sikhism groups, unions, fraternal or athletic groups, or [...] Recorded Patient Health Questionnaire-2 Score 1 08/27/2024 [facility] - Occupational Stress Questionnaire Answer Date [...] place to sleep or slept in a detention (including now)? Patient unable to answer 12/26/2023 [...] for lung cancer who presents to the [facility] as a new patient today with/for headaches and dizzy spells. HPI Referral placed by Miriam Baugh APRN for evaluation of syncope and collapse. Pt lives in a senior living and presents today with care nurse. Patient's [...] Reflexes: 2+ throughout Coordination: no ataxia with zsbwuj-mx-wygl testing Proprioception: intact in upper extremities bilaterally [...] orthostatic hypotension. He should follow with his cyber systems administrator to obtain orthostatic vital signs and consider [...] 3 months Counseling Documentation: The patient and preventive medicine physician was counseled regarding impressions. Education provided was verbal counseling. Additional time was spent in care coordination including medical record review. The total time of encounter was 100 minutes. . Cuong Catherine MD, PGY-2, Neurology Secure Chat/Pager: [phone] 08/27/2024 5:26 PM Dictation software disclaimer: Parts [...] After use, clean tip and replace cap. Dusxixpnwkj-Iabedtsqt-Wdleih (Trelegy Ellipta) 100-62.5-25 MCG/ACT aerosol powder Inhale 1 puff 1 (one) time each day. gabapentin (Neurontin) 100 MG capsule Take 1 capsule by mouth 2 times a day. hydroCHLOROthiazide (HYDRODiuril) 25 MG tablet Take 1 tablet by mouth daily. HYDROcodone-acetaminophen ([place]) 5-325 MG tablet Take 1 tablet (5 [...] We discussed patient seeing eitherhis PCP or cyber systems administrator to test orthostatic vitals and adjust medications [...] Description 10/26/2024 1:20 PM EDT Office Visit [facility] [address] [address] Florentin Tillman MD [address] [place] [address] documented as of this encounter [...] After use, clean tip and replace cap. Zytchmweawn-Hburlmbxz-Rqrkxo (Trelegy Ellipta) 100-62.5-25 MCG/ACT aerosol powder Inhale [...] Take 1 tablet by mouth daily. HYDROcodone-acetaminophen ([place]) 5-325 MG tablet Take 1 tablet (5 [...] documented as of this encounter Care Teams Building Rigger Relationship Specialty Start Date End Date Edi Chase MD [address] [place] [address] PCP - General 03/14/20 Sam Sanchez MD [address] [place] [address] Consulting Physician Pulmonary Disease 08/11/22 Cayetano Cannon MD [address] [facility] [address] [place] [address] Referring Physician 08/11/22 documented as of this encounter
--- OUTSIDE RECORDS SUMMARY | 2024-10-16 07:56 | XMS_ITS | Encounter Summary ---
Author Organization [facility] Address [address] [place] [address] Care Team Providers Care Special Procedure Tech Name Role Phone Edi Chase MD Primary Care Provider [phone] Sam Sanchez MD Unavailable [phone] Cayetano Cannon MD Unavailable [phone] Reason for Referral * Other Medical (Routine) - Closed Specialty Diagnoses / Procedures Referred By José campbell Referred To Contact Neurology Diagnoses Dizziness on standing Procedures EEG Jyoti Tyler MD [address] [address] Phone: tel: fax: Referral ID Status Reason Start Date Expiration Date V isits Requested Visits Authorized [id number] Closed Specialty Services Required 08/27/2024 02/26/2026 1 1 Reason for Visit * Other Medical (Routine) - Closed Specialty Diagnoses / Procedures Referred By José campbell Referred To Contact Neurology Diagnoses Dizziness on standing Procedures EEG Jyoti Tyler MD [address] [address] Phone: tel: fax: Referral ID Status Reason Start Date Expiration Date V isits Requested Visits Authorized [id number] Closed Specialty Services Required 08/27/2024 02/26/2026 1 1 Encounter Details Date Type Department Care Team (Latest Contact Info) Description 10/16/2024 7:56 AM EDT - 10/16/2024 11:59 PM EDT Hospital Encounter [facility] Neurophysiology [address] [place] [address] Dizziness on standing Discharge Disposition: Home or [...] 12/26/2023 How often do you attend [facility] or pentecostalism services? Patient unable to answer 12/26/2023 Do [...] Recorded Patient Health Questionnaire-2 Score 1 08/27/2024 [facility] - Occupational Stress Questionnaire Answer Date Recorded [...] tablet by mouth daily. 08/27/2024 HYDROcodone-aceta minophen ([place]) 5-325 MG tablet Take 1 tablet (5 [...] Description 10/26/2024 1:20 PM EDT Office Visit [facility] [address] [place] [address] Florentin Tillman MD [address] [place] [address] documented as of this encounter Procedures Procedure [...] After use, clean tip and replace cap. Wyrnwrjcasf-Itpekhlcw-Ppdqhi (Trelegy Ellipta) 100-62.5-25 MCG/ACT aerosol powder Inhale [...] Take 1 tablet by mouth daily. HYDROcodone-acetaminophen ([place]) 5-325 MG tablet Take 1 tablet (5 [...] documented as of this encounter Care Teams Special Procedure Tech Relationship Specialty Start Date End Date Edi Chase MD [address] [place] [address] PCP - General 03/14/20 Sam Sanchez MD [address] [place] [address] Consulting Physician Pulmonary Disease 08/11/22 Cayetano Cannon MD 1210 [facility] [address] [place] [address] Referring Physician 08/11/22 documented as of this encounter
--- NOTE | 2024-10-24 09:30 | MR_ITS ---
FINAL REPORT CLINICAL HISTORY: lung cancer. BACK PAIN COMPARISON: None FINDINGS: MRI THORACIC SPINE, WITHOUT AND WITH CONTRAST TECHNIQUE: Multiplanar MR without and with contrast administration. FINDINGS: No acute fracture is present. Alignment is normal. The marrow signal pattern is normal without evidence of metastasis. There is no evidence of fracture, or thoracic spine/spinal canal mass. Thoracic spinal cord shows normal signal and contour. There is mild spondylosis and multilevel degenerative disc disease. Mild degenerative canal stenosis is present in the lower thoracic spine without evidence of cord compression. There is no abnormal enhancement. IMPRESSION: 1. No evidence of metastatic disease. 2. Multilevel degenerative disc disease, with mild degenerative canal stenosis of the lower thoracic spine. 3. No evidence of fracture. Reviewed, Interpreted and Dictated by Onesimo Velazquez MD Transcribed by Danisha Manzanares Authenticated and . [facility]
--- OUTSIDE RECORDS SUMMARY | 2024-10-24 09:35 | XMS_ITS | Clinical Summary ---
Author Organization [facility] Address [address] [place] [address] Phone Care Team Providers Care Strap Sewer Name Role Phone Gala Osborne APRN Primary Care Physician [phone] [ ] Conditions or Problems Problem Name Problem Code Onset Date Status Entry Date Provider Comment Standard Description Annotate HEMATURIA NOS R31.9 (ICD-10-CM ) 05/11 Active 05/11 Gala Furnclayton AVILA Hematuria, unspecified ABNORMAL ELECTROCARDIO GRAM 857801138 (SNOMED CT) 05/11 Active 05/11 Gala Furnish GLOBAL MOBILITY SPECIALIST Electrocardiogram abnormal BLINDNESS, BILATERAL 905282809 (SNOMED CT) 05/11 Active 05/11 Gala Furnclayton GLOBAL MOBILITY SPECIALIST Blindness - both eyes HYPERTENSION 10431890 (SNOMED CT) 05/11 Active 05/11 Gala Furnish GLOBAL MOBILITY SPECIALIST Hypertensive disorder FLANK PAIN, RIGHT 341785150 (SNOMED CT) 05/11 Active 05/11 Gala Furnish GLOBAL MOBILITY SPECIALIST Flank pain CHEST PAIN NOS 37944645 (SNOMED CT) 05/11 Active 05/11 Gala Furnish GLOBAL MOBILITY SPECIALIST Chest pain Medications Medication Instructions Start Date Stop Date Generic Name NDC Provider HYDROCODONE-ACET AMINOPHEN 5-325 MG TABS 1-2 po q 6 hours prn pain HYDROCODONE-ACET AMINOPHEN [id number] Gala Furnclayton GLOBAL MOBILITY SPECIALIST CIPROFLOXACIN HCL 500 MG TABS Take 1 tablet by mouth twice a day CIPROFLOXACIN HCL 12726159796 Gala Furnclayton GLOBAL MOBILITY SPECIALIST Medications Administered No information available. Allergies, Adverse [...] Procedures Code Procedure Name Date Entry Date CPT-49881 ECG; interpretation and report only (Medicare use [id number] + [id number]) CPT-60111 Urine Dip Auto CPT-46108 CMP (Outside Lab) Pharm Stress Test Pharmacologic Stress Test CPT-17135 Urine Culture (Outside Lab) Vital Signs Date [...]
--- OUTSIDE RECORDS SUMMARY | 2024-10-24 09:36 | XMS_ITS | Encounter Summary ---
Author Organization [facility] Address [address] [place] [address] Care Team Providers Care Shipping Assistant Name Role Phone Edi Chase MD Primary Care Provider [phone] Sam Sanchez MD Unavailable Cayetano Cannon MD Unavailable [phone] Encounter Details Date Type Department Care Team (Late st Contact Info) Description 12/14/2023 Orders Only External Location [address] [place] [address] Cedric Hinton MD [address] [place] [id number] Social History Tobacco Use Types Packs/Day Years [...] [facility] [address] [place] [address] Florentin Tillman MD [address] [place] [address] documented as of this encounter Procedures Procedure [...] as of this encounter Care Teams Shipping Assistant Relationship Specialty Start Date End Date Edi Chase MD [address] [place] [address] PCP - General 03/14/20 Sam Sanchez MD [address] [place] [address] Consulting Physician Pulmonary Disease 08/11/22 Cayetano Cannon MD [address] [place] [address] Referring Physician 08/11/22 documented as of this encounter
--- OUTSIDE RECORDS SUMMARY | 2024-10-24 09:36 | XMS_ITS | Encounter Summary ---
Author Organization Healthcare Address [address] [place] [address] Care Team Providers Care Mining Manager Name Role Phone Edi Chase MD Primary Care Provider [phone] Sam Sanchez MD Unavailable [phone] Cayetano Cannon MD Unavailable [phone] Encounter Details Date Type Department Care Team (Late st Contact Info) Description 12/12/2023 Orders Only External Location [address] [place] [address] Provider, External Social History Tobacco Use Types [...] [place] [address] Florentin Tillman MD [address] [place] [address] documented as of this encounter Procedures Procedure [...] documented as of this encounter Care Teams Mining Manager Relationship Specialty Start Date End Date Edi Chase MD [address] [facility] [place] [address] PCP - General 03/14/20 Sam Sanchez MD [address] [place] [address] Consulting Physician Pulmonary Disease 08/11/22 Cayetano Cannon MD [address] [facility] [address] [place] [address] Referring Physician 08/11/22 documented as of this encounter
--- OUTSIDE RECORDS SUMMARY | 2024-10-24 09:36 | XMS_ITS | Encounter Summary ---
Author Organization [facility] Address [address] [place] [address] Care Team Providers Care Home Appliance Washing Machine Mechanic Name Role Phone Edi Chase MD Primary Care Provider [phone] Sam Sanchez MD Unavailable [phone] Cayetano Cannon MD Unavailable [phone] Encounter Details Date Type Department Care Team (Late st Contact Info) Description 09/30/2022 Lab Requisition [facility] [address] [place] [address] Lyn Santana MD [address] [place] [address] Malignant neoplasm of upper lobe, [...] 1:20 PM EDT Office Visit [facility] [address] [place] [address] Florentin Tillman MD [address] [place] [address] documented as of this encounter Procedures Procedure Name Priority Date/Time Associated Diagnosis Comments AP MISCELLANEOUS LAB TEST (SO) Routine 09/08/2022 11:51 AM EDT Malignant neoplasm of upper lobe, left bronchus or lung (CMS/HCC) documented in this encounter Results * AP Miscellaneous Lab Test (09/08/2022 11:51 AM EDT) Test name DC Profile 10/15/2022 7:42 AM EDT [facility] Comment:[id number] A1 Test Result see scan 10/15/2022 7:42 [...] as of this encounter Care Teams Home Appliance Washing Machine Mechanic Relationship Specialty Start Date End Date Edi Chase MD [address] [place] [address] PCP - General 03/14/20 aSm Sanchez MD [address] [place] [address] Consulting Physician Pulmonary Disease 08/11/22 Cayetano Cannon MD [address] [place] [address] Referring Physician 08/11/22 documented as of this encounter
--- OUTSIDE RECORDS SUMMARY | 2024-10-24 09:36 | XMS_ITS | Encounter Summary ---
Author Organization Healthcare Address [address] [place] [address] Care Team Providers Care Antique Dealer Name Role Phone Edi Chase MD Primary Care Provider [phone] Sam Sanchez MD Unavailable [phone] Cayetano Cannon MD Unavailable [phone] Encounter Details Date Type Department Care Team (Late st Contact Info) Description 12/26/2023 Lab Requisition [facility] [address] [place] [address] Amado Horton MD [address] [facility] [address] [place] [address] Encounter for general adult medical [...] How often do you attend chur or holiness services? Patient unable to answer 12/26/2023 Do [...] one occasion? Patient unable to answer 12/26/2023 [facility] - Occupational Stress Questionnaire Answer [...] [facility] [address] [place] [address] Florentin Tillman MD [address] [place] [address] documented as of this encounter Procedures Procedure Name Priority Date/Time Associated Diagnosis Comments MULTI DRUG RESISTANCE TEST Routine 12/26/2023 2:00 PM EDT Encounter for general adult medical examination without abnormal findings documented in this encounter Results * Multi Drug Resistance Test (12/26/2023 2:00 PM EDT) Culture No growth at day 1 12/27/2023 12:24 PM EDT [facility] Swab (Nares and Brenda Rectal) 12/26/2023 2:00 PM EDT 12/26/2023 3:15 PM EDT us Amado Horton MD LAB MICROBIOLOGY - GEN ERAL ORDERABLES Final Result [facility] [address] [place] [address] documented in this encounter Visit Diagnoses Diagnosis [...] documented as of this encounter Care Teams Antique Dealer Relationship Specialty Start Date End Date Edi Chase MD [address] [place] [address] PCP - General 03/14/20 Sam Sanchez MD [address] [place] [address] Consulting Physician Pulmonary Disease 08/11/22 Cayetano Cannon MD [address] [facility] [address] [place] [address] Referring Physician 08/11/22 documented as of this encounter
--- OUTSIDE RECORDS SUMMARY | 2024-10-24 09:36 | XMS_ITS | Encounter Summary ---
Author Organization Healthcare Address [address] [place] [address] Care Team Providers Care Automation Qa Lead Name Role Phone Edi Chase MD Primary Care Provider [phone] Sam Sanchez MD Unavailable [phone] Cayetano Cannon MD Unavailable [phone] Encounter Details Date Type Department Care Team ([facility] st Contact Info) Description 01/05/2024 Orders Only External Location [address] [place] [address] Cedric Hinton MD [address] [place] [address] Social History Tobacco Use Types Packs/Day Years [...] to answer 12/26/2023 [facility] - Occupational Stress Questionnaire Answer [...] Description 10/26/2024 1:20 PM EDT Office Visit [place] [id number] [facility] [address] [place] [address] Florentin Tillman MD [address] [place] [address] documented as of this encounter Procedures [...] documented as of this encounter Care Teams Automation Qa Lead Relationship Specialty Start Date End Date Edi Chase MD [address] [place] [address] PCP - General 03/14/20 Sam Sanchez MD [address] [place] [address] Consulting Physician Pulmonary Disease 08/11/22 Cayetano Cannon MD [address] [facility] [address] [place], [place] [address] Referring Physician 08/11/22 documented as of this encounter
--- OUTSIDE RECORDS SUMMARY | 2024-10-24 09:37 | XMS_ITS | Encounter Summary ---
Author Organization [facility] Address [address] [place] [address] Care Team Providers Care Wellness Director Name Role Phone Edi Chase MD Primary Care Provider [phone] Sam Sanchez MD Unavailable [phone] Cayetano Cannon MD Unavailable [phone] Encounter Details Date Type Department Care [...] How often do you attend chur or temple services? Patient unable to answer 12/26/2023 Do you belong to any clubs o r organizations such as methodist groups, unions, fraternal or athletic groups, or [...] Health Questionnaire-2 Score 1 08/27/2024 [facility] - Occupational Stress Questionnaire Answer [...] Description 10/26/2024 1:20 PM EDT Office Visit [facility] [address] [place] [address] Florentin Tillman MD [address] [place] [address] documented as of this encounter Visit [...] documented as of this encounter Care Teams Wellness Director Relationship Specialty Start Date End Date Edi Chase MD [address] [facility] [place] [address] PCP - General 03/14/20 Sam Sanchez MD [address] [place] [address] Consulting Physician Pulmonary Disease 08/11/22 Cayetano Cannon MD [address] [place], [place] [address] Referring Physician 08/11/22 documented as of this encounter
--- OUTSIDE RECORDS SUMMARY | 2024-10-24 09:37 | XMS_ITS | Clinical Summary ---
Author Organization [facility] Address [address] [address] Phone Care Team Providers Care Supply Cataloguer Name Role Phone Unavailable Primary Care Provider [...] this topic Medical Devices Implanted Type Area Continuous Weld Pipe Mill Supervisor Device Identifier Shelf Expiration Date Model / Serial / Lot Stent Coronary Vision Rx 3.50mm X 18mm - [id number] Implanted:Qty: 1 on 03/16/2010 at [facility] [employer] Explanted:at [employer] (Quantity not on file) Stent-Vis ion [facility]:VASC DEV [id number] / / [id number] Insurance [place] [id number] [place] [address] [place]
--- OUTSIDE RECORDS SUMMARY | 2024-10-24 09:37 | XMS_ITS | Encounter Summary ---
Author Organization [facility] Address [address] [place] [address] Care Team Providers Care Bank Guard Name Role Phone Edi Chase MD Primary Care Provider [phone] Sam Sanchez MD Unavailable Cayetano Cannon MD Unavailable [phone] Encounter Details Date Type Department Care Team (Late st Contact Info) Description 07/08/2022 Orders Only External Location [address] [place] [address] [place] [address] [address] [place] [address] Social History Tobacco Use Types [...] 10/26/2024 1:20 PM EDT Office Visit [address] [place] [address] Florentin Tillman MD [address] [place] [address] documented as of this encounter Procedures Procedure [...] documented as of this encounter Care Teams Bank Guard Relationship Specialty Start Date End Date Edi Chase MD [address] [place] [address] PCP - General 03/14/20 Sam Sanchez MD [address] [place] [id number] Consulting Physician Pulmonary Disease 08/11/22 Cayetano Cannon MD [address] [place] [address] Referring Physician 08/11/22 documented as of this encounter
--- OUTSIDE RECORDS SUMMARY | 2024-10-24 09:38 | XMS_ITS | Clinical Summary ---
Author Organization [facility] Address [address] [place] [address] Care Team Providers Care Preparation Plant Repairer Name Role Phone Edi Chase MD Primary Care Provider [phone] Sam Sanchez MD Unavailable [phone] Cayetano Cannon MD Unavailable [phone] Allergies No known active allergies Medications [...] (one) time each day. Active HYDROcodone-acet aminophen ([place]) 5-325 MG tablet Take 1 tablet (5 [...] [address] [place] [address] Dizziness on standing Discharge Disposition: Home or Self Care 10/16/2024 Travel 08/27/2024 1:00 PM EDT Consult [place] [facility] [address] [place] [address] Cuong Catherine MD Dizziness on standing (Primary Dx); Nonintractable episodic headache, unspecified headache type; Cerebrovascular accident (CVA), unspecified mechanism (CMS/HCC) 08/27/2024 Travel 08/22/2024 Telephone [place] [facility] [address] [place] [address] Cuong Catherine MD from Last [...] How often do you attend [facility] or yazidism services? Patient unable to answer [...] Patient Health Questionnaire-2 Score 1 08/27/2024 [facility] - Occupational [...] Recorded In the past 12 months has [employer], gas, oil, or water [employer] threatened to shut off services in your [...] Description 10/26/2024 1:20 PM EDT Office Visit [facility] [address] [place] [address] Florentin Tillman MD [address] [place] [address] Health Maintenance Due Date Last Done Comments [facility]-Medicare Annual Wellness (AWV) 1950 [facility]-/Child/Adol SDOH Screenings 1950 [facility]-DTaP,Tdap,and Td Vaccines (1 - Tdap) 08/31/1967 [facility]-Pneumococcal Vaccine: 50+ Years (1 of 2 - PCV) 08/31/1967 [facility]-Zoster Vaccines (1 of 2) 08/31/1967 [facility]-[id number]-88 Vaccine (3 - Pfizer risk series) 05/10/2020 [...] After use, clean tip and replace cap. Kdeqmyboycl-Fpteuinup-Yunpac (Trelegy Ellipta) 100-62.5-25 MCG/ACT aerosol powder Inhale [...] Take 1 tablet by mouth daily. HYDROcodone-acetaminophen ([place]) 5-325 MG tablet Take 1 tablet (5 [...] Antibody Negative Negative 12/23/2023 6:55 PM EDT [facility] Blood Venous blood specimen / Unknown Venipuncture / Unknown 12/23/2023 5:39 PM EDT 12/23/2023 6:04 PM EDT Med Lyn MD LAB BLOOD ORDERABLES Final Result [facility] [address] [place] [address] * (ABNORMAL) Hemoglobin A1c (12/23/2023 5:39 PM EDT) Hemoglobin A1c 6.3(H) <5.7 % 12/24/2023 12:22 AM EDT [facility] Blood Venous blood specimen / Unknown Venipuncture / Unknown 12/23/2023 5:39 PM EDT 12/23/2023 5:55 PM EDT Narrative [facility] - 12/24/2023 12:22 AM EDT HA1C Interpretive Data: Diagnosis of Diabetes: Diabetic > or = 6.5% Pre-diabetic 5.7 to 6.4% Non-diabetic < or = 5.6% Glycemic Targets for Type I and Type II Diabetics: Non- Adults <7.0% Adults <6.0% Children and Adolescents <7.5% Source: [place] Diabetes [employer]. Standards of medical care in diabetes,2017. Diabetes Care.2017:40 (suppl 1):S1-S135. HbA1c assay performed by an ion-exchange chromatography method that is certified traceable to the DCCT. 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 Yes Care Teams Preparation Plant Repairer Relationship Specialty Start Date End Date Edi Chase MD [address] [place] [address] PCP - General 03/14/20 Sam Sanchez MD [address] [place] [address] Consulting Physician Pulmonary Disease 08/11/22 Cayetano Cannon MD [address] [facility] [address] [place] [address] Referring Physician 08/11/22
--- OUTSIDE RECORDS SUMMARY | 2024-10-24 09:38 | XMS_ITS | Encounter Summary ---
Author Organization [facility] Address [address] [place] [address] Care Team Providers Care Physical Sciences Instructor Name Role Phone Edi Chase MD Primary Care Provider [phone] Sam Sanchez MD Unavailable [phone] Cayetano Cannon MD Unavailable [phone] Encounter Details Date Type Department Care [...] How often do you attend chur or islam services? Patient unable to answer 12/26/2023 Do [...] 1 08/27/2024 [facility] - Occupational Stress Questionnaire Answer Date [...] Description 10/26/2024 1:20 PM EDT Office Visit [facility] [address] [place] [address] Florentin Tillman MD [address] [place] [address] documented as of this encounter [...] documented as of this encounter Care Teams Physical Sciences Instructor Relationship Specialty Start Date End Date Edi Chase MD [address] [facility] [place] [address] PCP - General 03/14/20 Sam Sanchez MD [address] [place] [address] Consulting Physician Pulmonary Disease 08/11/22 Cayetano Cannon MD [address] [place] [address] Referring Physician 08/11/22 documented as of this encounter
--- NOTE | 2024-10-24 10:30 | CT_ITS ---
FINAL REPORT TECHNIQUE: After the administration of intravenous contrast, axial images through the chest were performed by computed tomography.This study was performed with techniques to keep radiation doses as low as reasonably achievable, (ALARA). Individualized dose reduction techniques using automated exposure control or adjustment of mA and/or kV according to the patient''s size were employed. CLINICAL HISTORY: evaluation of lung cancer COMPARISON: 10/03/2024 FINDINGS: There is a left upper lobe perihilar mass measuring 49 x 42 mm, previously measured 43 x 36 mm. There is increasing postobstructive pneumonia associated with this mass, more superiorly in the left lung apex. There is a tiny left pleural effusion. A left perihilar lymph node is seen measuring up to 17 mm, previously measured 15 mm. No new adenopathy is identified. There is no right sided pleural effusion. Heart is mildly enlarged. Limited imaging of the upper abdomen demonstrates a few hypodense liver lesions which are not well-characterized due to size. If there is concern for metastasis, MRI would be helpful for further evaluation. Polycystic renal disease is noted. IMPRESSION: 1. Interval enlargement of left upper lobe perihilar mass with mild worsening postobstructive pneumonia. 2. Further enlargement of mild left hilar adenopathy. 3. Small subcentimeter hypodense liver lesions which represent cysts. Although, metastasis not excluded. This can be further evaluated with MRI if clinically indicated. Reviewed, Interpreted and Dictated by Onesimo Velazquez MD Transcribed by Anna Marie Zarate Authenticated and [facility]
[2024-10-24] MEDS: GADOTERIDOL INJ 10ML SYRINGE 4 ML IV (10:35)
[2024-10-24] MEDS: GADOTERIDOL INJ 20ML SYRINGE 20 ML IV (10:36)
[2024-10-24] MEDS: SODIUM CHLORIDE 0.9% 10ML SYR (RAD ONLY) 10 ML IV (11:01)
[2024-10-24] MEDS: IOPAMIDOL-370 (76%);100ML BOTTLE 75 ML IV (11:01)
== END 2024-10-24 23:59 | disposition home or self-care (01) ==
LOC: RAD 09:33
PROVIDERS: PCP Family Medicine; Visit Provider Internal Medicine Medical Oncology
DX: C34.12 Malignant neoplasm of upper lobe, left bronchus or lung (principal); M51.34 Other intervertebral disc degeneration, thoracic region; M48.04 Spinal stenosis, thoracic region; J18.8 Other pneumonia, unspecified organism; M79.602 Pain in left arm; M25.512 Pain in left shoulder; R59.0 Localized enlarged lymph nodes; R91.8 Other nonspecific abnormal finding of lung field
CPT/HCPCS: 71260; 72157; A9576; Q9967

== ENCOUNTER 2024-10-26 13:11 | Observation (INO) | payer MEDICARE, MEDICAID, SELFPAY ==
--- OUTSIDE RECORDS SUMMARY | 2024-08-27 13:00 | XMS_ITS | Encounter Summary ---
Author Organization [facility] Address [address] [place] [address] Care Team Providers Care Remote Sensing Engineer Name Role Phone Edi Chase MD Primary Care Provider [phone] Sam Sanchez MD Unavailable [phone] Cayetano Cannon MD Unavailable [phone] Reason for Referral * Other Medical (Routine) - Closed Specialty Diagnoses / Procedures Referred By José campbell Referred To Contact Neurology Diagnoses Dizziness on standing Procedures EEG Jyoti Tyler MD [address] [facility] [address] [place] [address] Phone: tel: fax: Referral ID Status Reason Start Date Expiration Date V isits Requested Visits Authorized [id number] Closed Specialty Services Required 08/27/2024 02/26/2026 1 1 Reason for Visit * Consultation (Routine) - Closed Specialty Diagnoses / Procedures Referred By José campbell Referred To Contact Neurology Diagnoses Syncope and collapse Malignant neoplasm of unspecified part of unspecified bronchus or lung (CMS/HCC) Miriam Baugh, LEGISLATIVE ASSISTANT [address] [place] [address] Phone: tel: fax: Referral ID Status Reason Start Date Expiration Date V isits Requested Visits Authorized [id number] Closed Specialty Services Required 01/24/2024 07/25/2025 1 1 Encounter Details Date Type Department Care Team (Late st Contact Info) Description 08/27/2024 1:00 PM EDT Consult [place] [facility] [address], [address] [place] [address] Cuong Catherine MD [address] [place] [address] Dizziness on standing (Primary Dx); Nonintractable episodic [...] How often do you attend chur or congregational services? Patient unable to answer 12/26/2023 Do you belong to any clubs o r organizations such as mormonism groups, unions, fraternal or athletic groups, or [...] Recorded Patient Health Questionnaire-2 Score 1 08/27/2024 [facility] - Occupational Stress Questionnaire [...] place to sleep or slept in a residential (including now)? Patient unable to answer 12/26/2023 [...] for lung cancer who presents to the [facility] Clinic as a new patient today with/for headaches and dizzy spells. HPI Referral placed by Miriam Baugh APRN for evaluation of syncope and collapse. Pt lives in a retirement and presents today with care nurse. Patient's [...] Reflexes: 2+ throughout Coordination: no ataxia with rfhuzz-cp-gzqc testing Proprioception: intact in upper extremities bilaterally [...] orthostatic hypotension. He should follow with his rag production worker to obtain orthostatic vital signs and consider [...] 3 months Counseling Documentation: The patient and tool and die machinist was counseled regarding impressions. Education provided was verbal counseling. Additional time was spent in care coordination including medical record review. The total time of encounter was 100 minutes. . Cuong Catherine MD, PGY-2, Neurology Secure Chat/Pager: [phone] 08/27/2024 5:26 PM Dictation software disclaimer: Parts [...] After use, clean tip and replace cap. Honnlfskpwm-Zfnopwogm-Inxgwl (Trelegy Ellipta) 100-62.5-25 MCG/ACT aerosol powder Inhale 1 puff 1 (one) time each day. gabapentin (Neurontin) 100 MG capsule Take 1 capsule by mouth 2 times a day. hydroCHLOROthiazide (HYDRODiuril) 25 MG tablet Take 1 tablet by mouth daily. HYDROcodone-acetaminophen ([place]) 5-325 MG tablet Take 1 tablet (5 [...] We discussed patient seeing eitherhis PCP or rag production worker to test orthostatic vitals and adjust medications if needed. We also discussed that compression hose may help with his lightheadedness. Unfortunately, it is unclear why the Mr. Tuossaint is one oxcarbazepine. He denies any known [...] documented in this encounter Plan of Treatment Not on file documented as of this encounter Results * [...] After use, clean tip and replace cap. Ydjczawcdhl-Tnectdsxw-Lxyuhk (Trelegy Ellipta) 100-62.5-25 MCG/ACT aerosol powder Inhale [...] Take 1 tablet by mouth daily. HYDROcodone-acetaminophen ([place]) 5-325 MG tablet Take 1 tablet (5 [...] documented as of this encounter Care Teams Remote Sensing Engineer Relationship Specialty Start Date End Date Edi Chase MD [address] [facility] [address] PCP - General 03/14/20 Sam Sanchez MD [address] [place] [address] Consulting Physician Pulmonary Disease 08/11/22 Cayetano Cannon MD [address] [place] [address] Referring Physician 08/11/22 documented as of this encounter
--- OUTSIDE RECORDS SUMMARY | 2024-10-16 07:56 | XMS_ITS | Encounter Summary ---
Author Organization [facility] Address [address] [place] [address] Care Team Providers Care Corporation Lawyer Name Role Phone Edi Chase MD Primary Care Provider [phone] Sam Sanchez MD Unavailable [phone] Cayetano Cannon MD Unavailable [phone] Reason for Referral * Other Medical (Routine) - Closed Specialty Diagnoses / Procedures Referred By José campbell Referred To Contact Neurology Diagnoses Dizziness on standing Procedures EEG Jyoti Tyler MD [address] [address] Phone: tel: fax: Referral ID Status Reason Start Date Expiration Date V isits Requested Visits Authorized [id number] Closed Specialty Services Required 08/27/2024 02/26/2026 1 1 Reason for Visit * Other Medical (Routine) - Closed Specialty Diagnoses / Procedures Referred By José campbell Referred To Contact Neurology Diagnoses Dizziness on standing Procedures EEG Jyoti Tyler MD [address] [address] Phone: tel: fax: Referral ID Status Reason Start Date Expiration Date V isits Requested Visits Authorized [id number] Closed Specialty Services Required 08/27/2024 02/26/2026 1 1 Encounter Details Date Type Department Care Team (Latest Contact Info) Description 10/16/2024 7:56 AM EDT - 10/16/2024 11:59 PM EDT Hospital Encounter [facility] H Neurophysiology [address] [place] [address] Dizziness on standing Discharge Disposition: Home or Self Care Social History Tobacco Use Types Packs/Day Years [...] answer 12/26/2023 How often do you attend [facility] or [facility] services? Patient unable to answer 12/26/2023 Do you belong to any clubs o r organizations such as shinto groups, unions, fraternal or athletic groups, or [...] Recorded Patient Health Questionnaire-2 Score 1 08/27/2024 [facility] - [facility]ational Stress Questionnaire Answer Date [...] on file documented as of this encounter Medications at Time of Discharge acetaminophen (Tylenol) 500 MG tablet Take 1 tablet (500 mg) by mouth every 4 (four) hours if needed. Albuterol Sulfate 108 (90 Base) MCG/ACT aerosol powder Inhale 1 puff every 4 (four) hours if needed. amLODIPine (Norvasc) 5 MG tablet Take 1 [...] day. Do not crush, chew, or split. 01/03/2024 fluticasone (Flonase) 50 MCG/ACT nasal spray Administer 2 sprays into each nostril 1 (one) time each day. Shake gently. Before first use, prime pump. After use, clean tip and replace cap. Fluticasone-Umecl idin-Vilant (Trelegy Ellipta) 100-62.5-25 MCG/ACT aerosol powder Inhale 1 puff 1 (one) time each day. gabapentin (Neurontin) 100 MG capsule Take 1 capsule by mouth 2 times a day. 07/31/2024 guaiFENesin (Robitussin) 100 MG/5ML liquid Take 10 mL (200 mg) by mouth every 6 (six) hours if needed for cough. hydroCHLOROthiazi de (HYDRODiuril) 25 MG tablet Take 1 tablet by mouth daily. 08/27/2024 HYDROcodone-aceta minophen ([place]) 5-325 MG tablet Take 1 tablet (5 [...] mouth every 6 (six) hours if needed. metoprolol succinate XL (Toprol-XL) 100 MG 24 hr tablet Take 1 tablet by mouth daily. 08/16/2024 Multiple Vitamins-Minerals (multivitamin with minerals) tablet Take 1 tablet by mouth 1 (one) time each day. omeprazole (PriLOSEC) [address] capsule Take 1 capsule (20 mg) by mouth 1 (one) time each day. Do not crush or chew. ondansetron (Zofran) 4 MG tablet Take 1 tablet (4 mg) by mouth every 4 (four) hours if needed. OXcarbazepine (Trileptal) 300 MG tablet Take 1 tablet (300 mg) by mouth 2 (two) times a day. Polyethyl Glycol-Propyl Glycol (Systane) 0.4-0.3 % gel Apply to affected eye(s) every night. Senna-Time 8.6 MG tablet Take 2 tablets by mouth daily. 08/21/2024 tamsulosin (Flomax) 0.4 MG 24 hr capsule Take 1 capsule (0.4 mg) by mouth every night. timolol (Betimol) 0.5 % ophthalmic solution 1 drop 2 (two) times a day. Ventolin HFA 108 (90 Base) MCG/ACT inhaler 08/14/2024 documented as of this encounter Plan of Treatment Not on file documented as of this encounter Procedures Procedure Name Priority Date/Time Associated Diagnosis Comments HC EEG,W/AWAKE & DROWSY RECORD - EEG AWAKE OR DROWSY PORTABLE Routine 10/16/2024 9:00 AM EDT Dizziness on standing documented in this encounter Results * EEG (10/16/2024 9:00 [...] epileptiform discharges, or other focal abnormalities seen. Mde Jimenez MD [1] Current Outpatient Medications Medication [...] After use, clean tip and replace cap. Gujyhsgphvi-Iaeitxeqd-Qoplmp (Trelegy Ellipta) 100-62.5-25 MCG/ACT aerosol powder Inhale [...] Take 1 tablet by mouth daily. HYDROcodone-acetaminophen ([place]) 5-325 MG tablet Take 1 tablet (5 [...] this encounter Visit Diagnoses Diagnosis Dizziness on standing documented in this encounter [...] documented as of this encounter Care Teams Corporation Lawyer Relationship Specialty Start Date End Date Edi Chase MD [address] [place] [address] PCP - General 03/14/20 Sam Sanchez MD [address] [place] [address] Consulting Physician Pulmonary Disease 08/11/22 Cayetano Cannon MD [address] [facility] [address] [place] [address] Referring Physician 08/11/22 documented as of this encounter
[2024-10-26] VITALS (8 sets, daily range): BP systolic 163–180; BP diastolic 82–99; PULSE 58–72; RESP 16–21; TEMP 36.6–37.1; O2SAT 80–96; BMI 29.9
--- NOTE | 2024-10-26 13:08 | ECG_ITS ---
APPROVED REPORT Exam: Resting ECG HR:64 bpm ECG Measurements Heart Rate 64 AXES [place] 198 P 36 QRSd 112 QRS -36 QT 422 T 0 QTc 432 Conclusion Normal sinus rhythm, without acute ST or T wave changes concerning for ischemia Electronically signed by : Mariam Francisco, 11/01/2024 00:14:24
--- OUTSIDE RECORDS SUMMARY | 2024-10-26 13:20 | XMS_ITS | Encounter Summary ---
Author Organization [facility] Address [address] [place] [address] Care Team Providers Care Pattern Grader Name Role Phone Edi Chase MD Primary Care Provider [phone] Sam Sanchez MD Unavailable [phone] Cayetano Cannon MD Unavailable [phone] Reason for Visit * Reason Comments Follow-up Pt is a 74 year old male that presents to the clinic on this date for a follow up for his kidney disease. Encounter Details Date Type Department Care Team (Late st Contact Info) Description 10/26/2024 1:20 PM EDT Office Visit [facility] [address] [place] [address] Florentin Tillman MD [address] [place] [phone] Chest pain, unspecified type (Primary Dx) Social History Tobacco Use Types Packs/Day Years Used Date Smoking Tobacco: Former Cigarettes 2 47 1 971 - 2018 Passive Smoke Exposure: Never Smokeless Tobacco: Never [...] answer 12/26/2023 How often do you attend [facility] or yazidi services? Patient unable to answer 12/26/2023 Do you belong to any clubs o r organizations such as jain groups, unions, [employer] or athletic groups, or school groups? Patient [...] Score 1 08/27/2024 [facility] Occupational Stress Questionnaire Answer [...] the past 12 months has th e [employer], gas, oil, or water [employer] threatened to shut off services in your home? Patient unable to answer 12/26/2023 Sex and Gender Information Value Date Recorded Sex Assigned at Not on file Legal Sex Male 12:04 PM EDT Gender Identity Not on file Sexual Orientation Not on file documented as of this encounter Last Filed Vital Signs Vital Sign Reading Time Taken Comments Blood Pressure - - Pulse - - Temperature - - Respiratory Rate - - Oxygen Saturation - - Inhaled Oxygen Concentration - - Weight 112 kg (247 lb) 10/26/2024 12:54 PM EDT Height 193 cm (6' 4 ) 10/26/2024 12:54 PM EDT Body Mass Index 30.07 10/26/2024 12:54 PM EDT documented in this encounter Miscellaneous Notes * Progress Notes - Florentin Tillman MD - 10/26/2024 1:20 PM EDT Patient presented to clinic visit with chest pain, uncontrolled hypertension. Recent cardiac stentsplaced. Recommended he go to the ER. documented in this encounter Plan of Treatment Not on file documented as of this encounter Visit Diagnoses Diagnosis Chest pain, unspecified type- Primary documented in this encounter Additional Health Concerns [...] as of this encounter Care Teams Pattern Grader Relationship Specialty Start Date End Date Edi Chase MD [address] [facility] [place] [address] PCP - General 03/14/20 Sam Sanchez MD [address] [place] [address] Consulting Physician Pulmonary Disease 08/11/22 Cayetano Cannon MD [address] [facility] [address] [place] [address] Referring Physician 08/11/22 documented as of this encounter
--- NOTE | 2024-10-26 13:21 | HMH.EDGENADL ---
Discharge Plan Disposition Patient Disposition: Admitted Condition: Fair Discharge ED Provider: Mariam Francisco Adult HPI General Chief complaint: Chest Pain Stated complaint: chest pain Time Seen by Provider: 10/26/24 13:21 Mode of Arrival: Ambulatory Source of Information: Patient Description of Symptoms (Recalled from ER Triage Doc. by RN): Patient presents to ED from [place] for left anterior chest pain since last night. History of Present Illness HPI narrative: Patient is a 74-year-old gentleman with a past medical history of lung cancer who presented to the emergency department with left sided chest pain since last night. Patient states that the chest pain is dull in nature, nonradiating present since last night. Patient denies any shortness of breath. Patient denies any infectious symptoms. Patient denies any abdominal pain nausea vomiting or diarrhea. Patient denies any headache numbness weakness or other neurologic symptoms. Related Data Home Medications ?Medication ?Instructions ?Recorded ?Confirmed cetirizine 10 mg tablet 10 mg PO DAILY 06/09/23 10/27/24 ferrous sulfate 325 mg (65 mg 325 mg PO DAILY 06/09/23 10/27/24 iron) tablet isosorbide mononitrate 30 mg 30 mg PO DAILY 06/09/23 10/27/24 tablet,extended release 24 hr oxcarbazepine 300 mg tablet 300 mg PO BID 06/09/23 10/27/24 acetaminophen 500 mg capsule 500 mg PO Q4HP PRN Mild Pain 06/10/23 10/27/24 (Scale Score 1-4) multivitamin 1 tab PO DAILY 06/10/23 10/27/24 timolol maleate 0.5 % eye drops 1 drp ophthalmic (eye) DAILY 06/10/23 10/27/24 escitalopram oxalate 5 mg tablet 5 mg PO DAILY 12/06/23 10/27/24 (Lexapro) guaifenesin 100 mg/5 mL oral liquid 200 mg PO Q6HP PRN Cough 12/22/23 10/27/24 lidocaine 4 % topical patch 1 patch topical DAILY 12/22/23 10/27/24 (Lidocaine Pain Relief) ondansetron HCl 4 mg tablet 4 mg PO Q4HP PRN Nausea 12/22/23 10/27/24 albuterol sulfate 90 mcg/actuation 1 puff inhalation Q4HP PRN 02/14/24 10/27/24 aerosol inhaler (Ventolin HFA) Shortness Of Breath loperamide 2 mg capsule 2 mg PO Q6HP PRN Diarrhea 02/14/24 10/27/24 white petrolatum-mineral oil 94 1 applic ophthalmic (eye) HS 02/14/24 10/27/24 %-3 % eye ointment (Systane Nighttime) aluminum hydrox-magnesium carb 95 30 ml PO Q6HP PRN Acid Reflux 04/24/24 10/27/24 mg-358 mg/15 mL oral suspension (Acid Gone Antacid) fluticasone propionate 50 2 spray intranasal DAILY 06/26/24 10/27/24 mcg/actuation nasal spray,suspension (Flonase Allergy Relief) metoprolol succinate 100 mg 100 mg PO DAILY 06/26/24 10/27/24 tablet,extended release 24 hr ipratropium 0.5 mg-albuterol 3 mg 3 ml inhalation QIDP PRN Shortness 09/04/24 10/27/24 (2.5 mg base)/3 mL nebulization Of Breath Or Wheezing soln sennosides 8.6 mg tablet (Senna 17.2 mg PO HS 09/04/24 10/27/24 Laxative) diclofenac sodium 1 % topical gel 1 g topical BID 10/27/24 10/27/24 furosemide 20 mg tablet 20 mg PO DAILY 10/27/24 10/27/24 Previous Rx's ?Medication ?Instructions ?Recorded fluticasone fur. 100 mcg-umeclid 1 inh inhalation DAILY #60 ea 01/03/24 62.5 mcg-vilant 25 mcg inhalat.powder (Trelegy Ellipta) finasteride 5 mg tablet 5 mg PO DAILY #90 tabs 03/05/24 tamsulosin 0.4 mg capsule 0.4 mg PO HS 90 days #90 caps 03/05/24 apixaban 2.5 mg tablet (Eliquis) 2.5 mg PO BID #60 tabs 05/24/24 gabapentin 100 mg capsule 100 mg PO BID #60 caps 06/08/24 atorvastatin 40 mg tablet 40 mg PO HS 30 days #30 tabs 09/12/24 clopidogrel 75 mg tablet 75 mg PO DAILY 30 days #30 tabs 09/12/24 pantoprazole 40 mg tablet,delayed 40 mg PO HS 30 days #30 tabs 09/12/24 release oxycodone 10 mg tablet 10 mg PO TID #90 tabs 10/08/24 Allergies Allergy/AdvReac Type Severity Reaction Status Date / Time No Known Allergies Allergy Verified 10/23/24 14:38 [facility] Disclaimer: The information contained in this section may have been updated after the patient was seen, as this information can be updated by other users. Medical History (Updated 10/28/24 @ 00:00 by Background Daemon) Acute exacerbation of chronic obstructive pulmonary disease AARON (obstructive sleep apnea) Lung cancer COPD mixed type PAF (paroxysmal atrial fibrillation) Knee pain, right Hyperkalemia Polycystic kidney UTI (urinary tract infection) Acute renal injury Jason catheter in place Pain in left arm Chronic hypoxic respiratory failure, on home oxygen therapy Hx of prostatic malignancy Colon cancer Knee pain Heart failure with preserved ejection fraction Peripheral edema Adenocarcinoma of lung Chronic obstructive pulmonary disease CKD (chronic kidney disease) Stopped smoking with greater than 30 pack year history CVA (cerebral vascular accident) Blind Congestive heart failure Renal stones Gastroesophageal reflux 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) CVA (cerebral vascular accident) Obesity (BMI 30.0-34.9) Elevated left ventricular end-diastolic pressure (LVEDP) Diastolic dysfunction Pulmonary HTN Surgical History (Updated 10/28/24 @ 00:00 by Background Daemon) S/P coronary artery stent placement Hx of total knee arthroplasty History of bowel resection History of bronchoscopy History of ureteroscopy History of colonoscopy History of colectomy Family History Unknown Cancer self; post lung, prostate, and colon Other Family history of cancer Social History (Updated 10/26/24 @ 18:13 by Teresita Mattson RN) Smoking Status: Former smoker tobacco type: cigarettes packs per day: 1 alcohol intake: never substance use type: denies use current occupational status: disabled Travel in the last 8 weeks?: None caregiver/support person: Yes household members: none housing: custodial lives independently: No marital status: single current occupation: [employer] current occupational exposures/hazards: No caffeine: Yes special milad needs: No agree to transfusion: No do you feel safe at home: Yes victim of physical abuse: No victim of emotional abuse: No victim of sexual abuse: No would you like helpful sources: No Have you lived/traveled outside US in past 30 days?: No Contact w/someone who lives/traveled outside US past 30 days?: No Exposure to someone with infectious disease in past 14 days?: No Do you have a fever (greater than 100.4 F or 38 C)?: No Have you tested positive for COVID-19?: No Exposed to someone with COVID-19 in past 14 days?: No Do you have a sore throat?: No Do you have a cough?: No Do you have any weakness?: No Are you experiencing any nausea/vomitting?: No Do you have any diarrhea?: No Are you experiencing any unusual bleeding?: No Do you have any muscle aches/pain?: No Do you have any abdominal pain?: No Are you experiencing loss of taste or smell?: No Other Medical History Have you received the Flu Vaccine for this season: No Have you received the Pneumonia Vaccine: Yes (01/02/24) ROS Obtained: Yes All systems reviewed & no additional complaints except as documented and Yes Systems reviewed as appropriate & no additional complaints except as documented Physical Exam General General appearance: alert and in no apparent distress Head Head exam: atraumatic, normocephalic and normal inspection Eye Eye exam: Present normal appearance, PERRL and EOMI; Absent scleral icterus ENT ENT exam: Present normal exam and normal external ear exam Neck Neck exam: Present normal inspection and full ROM Chest Chest inspection: Present normal inspection and symmetric chest wall rise Respiratory Respiratory exam: Present normal lung sounds bilaterally, respiratory distress, wheezes and other (tachypnea, wheezing, rales) Cardiovascular Cardiovascular exam: Present regular rate, normal rhythm and normal heart sounds Abdominal Exam Abdominal exam: Present soft and distention; Absent tenderness, guarding or rebound Extremities Exam Extremities exam: Present normal inspection and full ROM Back Exam Back exam: Present normal inspection and full ROM Neurological Exam Neurological exam: Present alert and oriented X3 Psychiatric Psychiatric exam: Present normal affect and normal mood Skin Skin exam: Present warm and dry Medical Decision Making Medical Records Medical records reviewed: Yes I reviewed the patient's medical records. Screening: Per USPSTF and CDC recommendations, given the prevalence of disease in our region, it is our hospital?s policy to screen for HIV and viral Hepatitis for all patients aged 18 and over and those with ongoing risk factors. [place] [facility] Pt receiving controlled substance: No Vital Signs: 10/26/24 13:12 10/26/24 13:12 10/26/24 15:17 Temperature 98.7 F 98.7 F Temperature Source Oral Oral Pulse Rate 70 60 Pulse Rate [Right] 70 Respiratory Rate 16 16 16 Blood Pressure 173/91 H 163/87 H Blood Pressure [Right Arm] 173/91 H Blood Pressure Mean Blood Pressure Mean [Right Arm] 118 02 Sat by Pulse Oximetry 80 L 80 L 95 Oxygen Delivery Method Nasal Cannula Room Air Nasal Cannula Oxygen Flow Rate (LPM) 1.5 3 10/26/24 15:31 10/26/24 16:01 10/26/24 16:31 Temperature Temperature Source Pulse Rate 58 L 61 59 L Pulse Rate [Right] Respiratory Rate 19 17 Blood Pressure 168/90 H 171/92 H 180/90 H Blood Pressure [Right Arm] Blood Pressure Mean 108 Blood Pressure Mean [Right Arm] 02 Sat by Pulse Oximetry 95 95 96 Oxygen Delivery Method Nasal Cannula Nasal Cannula Oxygen Flow Rate (LPM) 3 3 10/26/24 16:42 10/26/24 17:33 10/26/24 17:35 Temperature 98 F Temperature Source Pulse Rate 64 60 Pulse Rate [Right] Respiratory Rate 16 Blood Pressure 176/94 H 169/82 H Blood Pressure [Right Arm] Blood Pressure Mean Blood Pressure Mean [Right Arm] 02 Sat by Pulse Oximetry 94 L Oxygen Delivery Method Nasal Cannula Nasal Cannula Oxygen Flow Rate (LPM) 3 3 Lab Data Lab results reviewed: Yes I reviewed the patient's lab results. Lab Results 10/26/24 13:22: WBC 7.1, RBC 3.00 L, Hgb 8.4 L, Hct 27.0 L, MCV 90.0, MCH 28.0, MCHC 31.1 L, RDW 16.0, Plt Count 265, MPV 9.8, Neut % (Auto) 78.7, Lymph % (Auto) 6.9 L, Pender % (Auto) 10.3 H, Eos % (Auto) 3.0, Baso % (Auto) 0.7, Neut # (Auto) 5.6, Lymph # (Auto) 0.5 L, Pender # (Auto) 0.7, Eos # (Auto) 0.2, Baso # (Auto) 0.1, Total Counted 100, Neutrophils % (Manual) 84 H, Lymphocytes % (Manual) 13, Monocytes % (Manual) 2, Eosinophils % (Manual) 1, Platelet Estimate Normal, RBC Morphology Normal, D-Dimer 1.17 H, Sodium 144, Potassium 4.1, Chloride 112 H, Carbon Dioxide 24, Anion Gap 12.1, BUN 35 H, Creatinine 1.90 H, Estimated Creat Clear 52, Estimated GFR 35 L, Est GFR ( Amer) 42 L, Glucose 131 H, Calcium 8.9, Total Bilirubin 0.1 L, AST 25, ALT 17, Alkaline Phosphatase 72, Troponin I 0.01, NT-Pro-B Natriuret Pep 5300 H, Total Protein 7.1, Albumin 3.9, Globulin 3.2, Albumin/Globulin Ratio 1.2 10/26/24 14:33: Chlamy pneumoniae PCR Not detected, Adenovirus (PCR) Not detected, B. pertussis DNA (PCR) Not detected, Coronavirus OC43 (PCR) Not detected, Coronavirus HKU1 (PCR) Not detected, Coronavirus 229E (PCR) Not detected, SARS-CoV-2 (PCR) Not detected, Coronavirus NL63 (PCR) Not detected, Human Metapneumovir PCR Not detected, Influenza A (H1) PCR Not detected, Influ A (H1N1/09) PCR Not detected, Influenza A (H3) PCR Not detected, Influenza Type A (PCR) Not detected, Influenza Type B (PCR) Not detected, M. pneumoniae (PCR) Not detected, Parainfluenza 1 (PCR) Not detected, Parainfluenza 2 (PCR) Not detected, Parainfluenza 3 (PCR) Not detected, Parainfluenza 4 (PCR) Not detected, RSV (PCR) Not detected, Entero/Rhino (PCR) Not detected 10/26/24 14:50: VBG pH 7.48 H, VBG pCO2 29.4 L, VBG pO2 180.9 H, VBG HCO3 21.6 L, VBG Total CO2 22.5 L, VBG O2 Saturation 99.3 H, VBG Base Excess -1.8, VBG Lactic Acid 1.6 10/26/24 15:39: Urine Color Yellow, Urine Appearance Clear, Urine pH 6.0, Ur Specific [place] 1.020, Urine Protein 2+ A, Urine Glucose (UA) Negative, Urine Ketones Negative, Urine Blood 3+ A, Urine Nitrate Negative, Urine Bilirubin Negative, Urine Urobilinogen 0.2, Ur Leukocyte Esterase 2+ A, Urine RBC 5-10, Urine WBC 20-50, Ur Squamous Epith Cells 3-5, Urine Bacteria 4+ 10/26/24 16:20: Troponin I 0.01 10/26/24 16:32: Urine Color Yellow, Urine Appearance Sl cloudy, Urine pH 6.0, Ur Specific [place] 1.015, Urine Protein 2+, Urine Glucose (UA) Negative, Urine Ketones Negative, Urine Blood 3+, Urine Nitrate Negative, Urine Bilirubin Negative, Urine Urobilinogen 0.2, Ur Leukocyte Esterase 3+ A, Urine RBC 10-20, Urine WBC Tntc A, Ur Squamous Epith Cells 3-5, Urine Bacteria 4+ A 10/27/24 06:50 10/27/24 06:50 Orders (Tests/Meds): ED MEDICATIONS Discontinued Medications Generic Name Dose Route Start Last Admin Trade Name Freq PRN Reason Stop Dose Admin Acetaminophen 650 mg 10/26/24 18:20 Acetaminophen 325mg Tab PO 11/25/24 18:19 Q4HP PRN Fever or Mild Pain (1-3) Albuterol/Ipratropium 9 ml 10/26/24 13:56 10/26/24 14:18 Ipratropium/Albuterol 3 Ml [facility] 10/26/24 13:57 9 ml ONCE ONE Administration Albuterol/Ipratropium 3 ml 10/27/24 00:00 10/27/24 18:13 Ipratropium/Albuterol 3 Ml [facility] 11/26/24 00:00 3 ml Q6RT HOLLAND Administration Enoxaparin Sodium 40 mg 10/27/24 09:00 10/27/24 09:42 Enoxaparin 40mg/0.4ml Syringe SUBCUT 11/26/24 08:59 40 mg DAILY HOLLAND Administration Ertapenem 1 gm 10/27/24 15:00 10/27/24 15:28 Ertapenem Sodium 1 Gm Vial IM 10/27/24 15:01 1 gm ONCE ONE Administration Furosemide 40 mg 10/26/24 15:38 10/26/24 15:59 Furosemide 40mg/4ml Vial IV 10/26/24 15:39 40 mg ONCE ONE Administration Magnesium Sulfate 2 gm in 50 mls @ 50 mls/hr 10/26/24 13:56 10/26/24 14:14 Magnesium Sulfate 2gm/50ml Premix IV 10/26/24 14:55 50 mls/hr ONCE ONE Administration Ceftriaxone Sodium 1 gm/ 50 mls @ 100 mls/hr 10/26/24 16:30 10/26/24 19:14 Sodium Chloride IV 11/05/24 16:29 Not Given Q24H HOLLAND Azithromycin 500 mg/ Sodium 250 mls @ 250 mls/hr 10/26/24 16:30 10/27/24 17:48 Chloride IV 11/05/24 16:29 Not Given Q24H HO[place]AND Ceftriaxone Sodium 1 gm/ 50 mls @ 100 mls/hr 10/26/24 20:00 10/26/24 19:53 Sodium Chloride IV 11/05/24 19:59 100 mls/hr Q24H HO[place]AND Administration Ertapenem 1 gm/ Sodium 50 mls @ 100 mls/hr 10/27/24 14:02 10/27/24 15:26 Chloride IV 10/27/24 14:03 Not Given ONCE ONE Iopamidol 80 ml 10/26/24 22:09 10/26/24 22:12 Iopamidol-370 (76%);100ml Bottle IV 10/26/24 22:10 80 ml ONCE ONE Administration Methylprednisolone Sodium Succinate 125 mg 10/26/24 13:56 10/26/24 14:14 Methylprednisolone Sod Succ 125mg Vial IV 10/26/24 13:57 125 mg ONCE ONE Administration Ondansetron HCl 4 mg 10/26/24 18:20 Ondansetron 4mg/2ml Vial IV 11/25/24 18:19 Q6HP PRN Nausea Sodium Chloride 3 ml 10/26/24 21:42 10/27/24 00:46 Sodium Chloride 3% 15ml Neb IH 11/25/24 21:41 3 ml ONCE PRN Administration INDUCE SPUTUM COLLECTION Sodium Chloride 50 ml 10/26/24 22:09 10/26/24 22:12 0.9 % Sodium Chloride 50 Ml Vial IV 10/26/24 22:10 50 ml ONCE ONE Administration Sodium Chloride 10 ml 10/26/24 22:09 10/26/24 22:11 Sodium Chloride 0.9% 10ml Syr (Rad Only) IV 11/25/24 22:08 10 ml NEEDED PRN Administration Maintain IV Site Sodium Chloride 10 ml 10/27/24 11:55 Sodium Chloride 0.9% 10ml Flush Syringe IV 11/26/24 11:54 NEEDED PRN Maintain IV Site ORDERS Category Date Time Status CXR 2 view (NOT portable) [XR chest 2V] Stat Exams 10/26/24 13:56 Completed BNP [NT Pro Brain Natriuretic Pep.] Stat Lab 10/26/24 13:22 Completed CBC w/Auto Diff [Complete Blood Count Auto Diff] Stat Lab 10/26/24 13:22 Completed CMP [Comprehensive Metabolic Panel] Stat Lab 10/26/24 13:22 Completed D-Dimer Stat Lab 10/26/24 13:22 Completed Full Resp Panel w/COVID ([facility]) Routine Lab 10/26/24 14:33 Completed Trop I [Troponin I] Stat Lab 10/26/24 13:22 Completed Troponin I Q3H Lab 10/26/24 16:20 Completed Troponin I Q3H Lab 10/26/24 20:24 Completed UA [Urinalysis and Microscopic] Stat Lab 10/26/24 15:39 Completed Urinalysis (cathed specimen) Stat Lab 10/26/24 16:32 Completed Blood Culture Stat Micro 10/26/24 20:24 Results Urine Culture Stat Micro 10/26/24 15:58 Completed Urine Culture(cathed specimen) Stat Micro 10/26/24 16:32 Completed VBG [Venous Blood Gas] Stat RT 10/26/24 14:50 Completed Medical Decision Narrative: Patient is a 44-year-old with a past medical history of lung cancer oriented to the emergency department with chest pain. On arrival, patient is hemodynamically stable with unremarkable vital signs. Differential includes but not limited to: ACS/CO, pneumonia, pulmonary embolism, arrhythmia, COPD exacerbation, heart failure, costochondritis, pleurisy, amongst others. Patient's labs were reviewed and interpreted by myself: Patient CBC showed no leukocytosis, hemoglobin was stable. D-dimer was obtained which is elevated however upon chart review, patient had a CT scan done 2 days prior which showed stable left lung mass with stable postobstructive pneumonia which patient was treated for IV antibiotics via PICC line. Patient did have an elevated BNP of 5000. Patient's baseline BNP is significantly lower. Initial troponin 0.01. Patient had significant wheezing on exam therefore patient was treated with DuoNebs as well as Solu-Medrol with concern for COPD exacerbation. Patient was then given azithromycin. Patient's has had a Jason catheter for over a year which was placed 2 weeks ago however was grossly contaminated on evaluation. Patient's Jason catheter was placed in the emergency department and was grossly infected. Patient was given IV Rocephin. Patient was given 40 of IV Lasix for patient's elevated BNP. At this time, given patient's clinical presentation of COPD exacerbation, CHF exacerbation I felt that patient warranted admission to the hospital given that patient was requiring increased oxygen from his baseline. After discussion with the hospitalist team, they ultimately admitted the patient to their service for further evaluation workup. Critical Care Critical Care Time Critical Care Time: No
--- OUTSIDE RECORDS SUMMARY | 2024-10-26 13:26 | XMS_ITS | Clinical Summary ---
Author Organization [employer] [facility] Address [address] [place] [address] Phone Care Team Providers Care Retail Loss Prevention Officer Name Role Phone Gala Osborne APRN Primary Care Physician [ ] Conditions or Problems Problem Name Problem Code Onset Date Status Entry Date Provider Comment Standard Description Annotate HEMATURIA NOS R31.9 (ICD-10-CM ) 05/11 Active 05/11 Gala Furnclayton AVILA Hematuria, unspecified ABNORMAL ELECTROCARDIO GRAM 087050492 (SNOMED CT) 05/11 Active 05/11 Gala Furnish TECHNOLOGY LAB TEACHER Electrocardiogram abnormal BLINDNESS, BILATERAL [id number] (SNOMED CT) 05/11 Active 05/11 Gala Furnclayton TECHNOLOGY LAB TEACHER Blindness - both eyes HYPERTENSION 15757214 (SNOMED CT) 05/11 Active 05/11 Gala Furnish TECHNOLOGY LAB TEACHER Hypertensive disorder FLANK PAIN, RIGHT [id number] (SNOMED CT) 05/11 Active 05/11 Gala Furnish TECHNOLOGY LAB TEACHER Flank pain CHEST PAIN NOS [id number] (SNOMED CT) 05/11 Active 05/11 Gala Furnish TECHNOLOGY LAB TEACHER Chest pain Medications Medication Instructions Start Date Stop Date Generic Name NDC Provider HYDROCODONE-ACET AMINOPHEN 5-325 MG TABS 1-2 po q 6 hours prn pain HYDROCODONE-ACET AMINOPHEN [id number] Gala Furnclayton TECHNOLOGY LAB TEACHER CIPROFLOXACIN HCL 500 MG TABS Take 1 tablet by mouth twice a day CIPROFLOXACIN HCL [id number] Gala Furnclayton TECHNOLOGY LAB TEACHER Medications Administered No information available. Allergies, Adverse [...] Procedures Code Procedure Name Date Entry Date CPT-13427 ECG; interpretation and report only (Medicare use [id number] + [id number]) CPT-84605 Urine Dip Auto CPT-48357 CMP (Outside Lab) Pharm Stress Test Pharmacologic Stress Test CPT-69883 Urine Culture (Outside Lab) Vital Signs Date [...]
--- OUTSIDE RECORDS SUMMARY | 2024-10-26 13:27 | XMS_ITS | Encounter Summary ---
Author Organization [facility] Address [address] [place] [address] Care Team Providers Care Security Assurance Specialist Name Role Phone Edi Chase MD Primary Care Provider Sam Sanchez MD Unavailable [phone] Cayetano Cannon MD Unavailable [phone] Encounter Details Date Type Department Care Team (Late st Contact Info) Description 09/30/2022 Lab Requisition [facility] [address] [place] [address] Lyn Santana MD [address] [place] [address] Malignant neoplasm of upper lobe, left bronchus [...] Test (09/08/2022 11:51 AM EDT) Test name CO Profile 10/15/2022 7:42 AM EDT [facility] Comment:[id number] Test Result see scan 10/15/2022 7:42 AM EDT [facility] See Scanned Result 10/15/2022 7:42 AM EDT [facility] Tissue 09/08/2022 11:5 1 AM EDT 09/30/2022 2:24 PM EDT us Lyn Santana MD LAB REF LAB BLOOD AND FLUID ORD Final Result [facility] documented in this encounter [...] as of this encounter Care Teams Security Assurance Specialist Relationship Specialty Start Date End Date Edi Chase MD [address] [place] [address] PCP - General 03/14/20 Sam Sanchez MD [address] [place] [address] Consulting Physician Pulmonary Disease 08/11/22 Cayetano Cannon MD [address] [facility] [address] [place] [address] Referring Physician 08/11/22 documented as of this encounter
--- OUTSIDE RECORDS SUMMARY | 2024-10-26 13:27 | XMS_ITS | Encounter Summary ---
Author Organization Healthcare Address [address] [place] [address] Care Team Providers Care Attendance Officer Name Role Phone Edi Chase MD Primary Care Provider [phone] Sam Sanchez MD Unavailable [phone] Cayetano Cannon MD Unavailable [phone] Encounter Details Date Type Department Care Team (Late st Contact Info) Description 07/08/2022 Orders Only External Location [address] [place] [address] Armani Lopez PA [address] [place] [address] [address] Social History Tobacco Use Types Packs/Day [...] Tomogra phy 07/08/2022 7:06 AM EDT [facility] PROCEDURES Final Result documented in this encounter Visit Diagnoses Not on filedocumented in this encounter Additional Health Concerns Infection Onset Date Last Indicated Resolved Time 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
--- OUTSIDE RECORDS SUMMARY | 2024-10-26 13:27 | XMS_ITS | Encounter Summary ---
Author Organization Healthcare Address [address] [place] [address] Care Team Providers Care Assembly Line Driver Name Role Phone Edi Chase MD Primary Care Provider [phone] Sam Sanchez MD Unavailable [phone] Cayetano Cannon MD Unavailable [phone] Encounter Details Date Type Department Care Team ([facility] st Contact Info) Description 01/05/2024 Orders Only External Location [address] [place] [address] Cedric Hinton MD [address] [place] [address] Social History Tobacco Use Types Packs/Day Years [...] any clubs o r organizations such as mandaeism groups, unions, fraternal or athletic groups, or [...] Patient unable to answer 12/[facility] - Occupational Stress Questionnaire Answer Date Recorded [...] 10:1 1 AM EDT Cedric Hinton MD [facility] CT PROCEDURES Final Result documented in this encounter Visit Diagnoses Not on filedocumented in this encounter Additional Health Concerns Infection Onset Date Last Indicated Resolved Time 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 12/24/2023 12/24/2023 Tuberculosis Rule-Out 02/21/2024 02/21/2024 Assessment Noted Time A Body Mass Index follow-up plan has been documented for the patient 01/02/2024 12:28 PM EDT documented as of this encounter Care Teams Assembly Line Driver Relationship Specialty Start Date End Date Edi Chase MD [address] [place] [address] PCP - General 03/14/20 Sam Sanchez MD [address] [place] [address] Consulting Physician Pulmonary Disease 08/11/22 Cayetano Cannon MD [address] [place] [facility] [address] [place] [address] Referring Physician 08/11/22 documented as of this encounter
--- OUTSIDE RECORDS SUMMARY | 2024-10-26 13:27 | XMS_ITS | Encounter Summary ---
Author Organization Healthcare Address [address] [place] [address] Care Team Providers Care Wind Field Manager Name Role Phone Edi Chase MD Primary Care Provider [phone] Sam Sanchez MD Unavailable [phone] Cayetano Cannon MD Unavailable [phone] Encounter Details Date Type Department Care Team ([facility] st Contact Info) Description 12/12/2023 Orders Only External Location [address] [place] [address] Provider, External Social History Tobacco Use Types [...] documented as of this encounter Care Teams Wind Field Manager Relationship Specialty Start Date End Date Edi Chase MD [address] [place] [address] PCP - General 03/14/20 Sam Sanchez MD [address] [place] [address] Consulting Physician Pulmonary Disease 08/11/22 Cayetano Cannon MD [address] [facility] [address] [place] [address] Referring Physician 08/11/22 documented as of this encounter
--- OUTSIDE RECORDS SUMMARY | 2024-10-26 13:27 | XMS_ITS | Encounter Summary ---
Author Organization Healthcare Address [address] [place] [address] Care Team Providers Care Fire Sprinkler Designer Name Role Phone Edi Chase MD Primary Care Provider [phone] Sam Sanchez MD Unavailable [phone] Cayetano Cannon MD Unavailable [phone] Encounter Details Date Type Department Care Team ([facility] st Contact Info) Description 12/14/2023 Orders Only External Location [address] [place] [address] Cedric Hinton MD [address] [place] [address] Social History Tobacco Use Types Packs/Day Years [...] documented as of this encounter Care Teams Fire Sprinkler Designer Relationship Specialty Start Date End Date Edi Chase MD [address] [place] [address] PCP - General 03/14/20 Sam Sanchez MD [address] [place] [address] Consulting Physician Pulmonary Disease 08/11/22 Cayetano Cannon MD [address] [facility] [address] [place] [address] Referring Physician 08/11/22 documented as of this encounter
--- OUTSIDE RECORDS SUMMARY | 2024-10-26 13:27 | XMS_ITS | Encounter Summary ---
Author Organization Healthcare Address [address] [place] [address] Care Team Providers Care Needle Bar Molder Name Role Phone Edi Chase MD Primary Care Provider [phone] Sam Sanchez MD Unavailable [phone] Cayetano Cannon MD Unavailable [phone] Encounter Details Date Type Department Care Team (Late st Contact Info) Description 12/26/2023 Lab Requisition [facility] [address] [place] [address] Amado Horton MD [address] [facility] [address] [place] [address] Encounter for general adult medical [...] How often do you attend chur or scientologist services? Patient unable to answer 12/26/2023 Do you belong to any clubs o r organizations such as jainism groups, unions, fraternal or athletic groups, or [...] one occasion? Patient unable to answer 12/26/2023 [facility] - Occupational Stress Questionnaire Answer Date [...] day 1 12/27/2023 12:[address] [facility] Swab (Nares and Brenda Rectal) 12/26/2023 2:00 PM EDT 12/26/2023 3:15 PM EDT us Amado Horton MD LAB MICROBIOLOGY - GEN ERAL ORDERABLES Final Result [facility] [address] [place] [address] documented in this encounter Visit Diagnoses Diagnosis [...] documented as of this encounter Care Teams Needle Bar Molder Relationship Specialty Start Date End Date Edi Chase MD [address] [place] [address] PCP - General 03/14/20 Sam Sanchez MD [address] [place] [address] Consulting Physician Pulmonary Disease 08/11/22 Cayetano Cannon MD [address] [place] [address] [place] [address] Referring Physician 08/11/22 documented as of this encounter
--- OUTSIDE RECORDS SUMMARY | 2024-10-26 13:28 | XMS_ITS | Encounter Summary ---
Author Organization [facility] Address [address] [place] [address] Care Team Providers Care Glazier Stained Glass Name Role Phone Edi Chase MD Primary Care Provider [phone] Sam Sanchez MD Unavailable [phone] Cayetano Cannon MD Unavailable [phone] Encounter Details Date Type Department Care Team (Latest Contact Info) Description 10/26/2024 Travel Social History Tobacco Use Types Packs/Day [...] How often do you attend chur or christianity services? Patient unable to answer 12/26/2023 Do you belong to any clubs o r organizations such as synagogue groups, unions, fraternal or athletic groups, or [...] 1 08/27/2024 [facility] - Occupational Stress Questionnaire Answer Date [...] th e electric, gas, oil, or water [employer] threatened to shut off services in your [...] documented as of this encounter Care Teams Glazier Stained Glass Relationship Specialty Start Date End Date Edi Chase MD [address] [place] [address] PCP - General 03/14/20 Sam Sanchez MD [address] [place] [address] Consulting Physician Pulmonary Disease 08/11/22 Cayetano Cannon MD [address] [place] [address] Referring Physician 08/11/22 documented as of this encounter
--- OUTSIDE RECORDS SUMMARY | 2024-10-26 13:28 | XMS_ITS | Clinical Summary ---
Author Organization Healthcare Address [address] [place] [address] Care Team Providers Care School Office Manager Name Role Phone Edi Chase MD Primary Care Provider [phone] Sam Sanchez MD Unavailable [phone] Cayetano Cannon MD Unavailable [phone] Allergies No known active allergies Medications [...] (one) time each day. Active HYDROcodone-acet aminophen ([place]) 5-325 MG tablet Take 1 tablet (5 [...] Active Problems Problem Noted Date Diagnosed Date Chest pain 10/26/2024 Dizziness on standing 08/27/2024 Assessment & Plan [...] Encounters Date Type Department Care Team Description 10/26/2024 1:20 PM EDT Office Visit [facility] [address] [place] [address] Florentin Tillman MD Chest pain, unspecified type (Primary Dx) 10/26/2024 Travel 10/16/2024 7:56 AM EDT - 10/16/2024 11:59 PM EDT Hospital Encounter [facility] [address] [place] [address] [phone] Dizziness on standing Discharge Disposition: Home or Self Care 10/16/2024 Travel 08/27/2024 1:00 PM EDT Consult [facility] [address] [place] [address] Cuong Catherine MD Dizziness on standing (Primary Dx); Nonintractable episodic headache, unspecified headache type; Cerebrovascular accident (CVA), unspecified mechanism (CMS/HCC) 08/27/2024 Travel 08/22/2024 Telephone [facility] [address] [place] [address] Cuong Catherine MD from Last 3 Months [...] How often do you attend chur or gnosticist services? Patient unable to answer 12/26/2023 Do you belong to any clubs o r organizations such as sikh groups, unions, fraternal or athletic groups, or [...] Patient Health Questionnaire-2 Score 1 08/27/2024 [facility] - Occupational Stress Questionnaire Answer [...] EDT Inhaled Oxygen Concentration - - Weight 112 kg (247 lb) 10/26/2024 12:54 PM EDT Height 193 cm (6' 4 ) 10/26/2024 12:54 PM EDT Body Mass Index 30.07 10/26/2024 12:54 PM EDT Plan of Treatment Health Maintenance Due Date Last Done Comments [facility]-Medicare Annual Wellness (AWV) 1950 [facility]-Infant/Child/Adol SDOH Screenings 1950 [facility]-DTaP,Tdap,and Td Vaccines (1 - Tdap) 08/31/1967 [facility]-Pneumococcal Vaccine: 50+ Years (1 of 2 - PCV) 08/31/1967 [facility]-Zoster Vaccines (1 of 2) 08/31/1967 [facility]-ICGVZ-48 Vaccine (3 - Pfizer risk series) 05/10/2020 [...] After use, clean tip and replace cap. Nytzkrbmtzw-Lnayglait-Bvsizu (Trelegy Ellipta) 100-62.5-25 MCG/ACT aerosol powder Inhale [...] Take 1 tablet by mouth daily. HYDROcodone-acetaminophen ([place]) 5-325 MG tablet Take 1 tablet (5 [...] Antibody Negative Negative 12/23/2023 6:55 PM EDT [facility] Blood Venous blood specimen / Unknown Venipuncture / Unknown 12/23/2023 5:39 PM EDT 12/23/2023 6:04 PM EDT Mde Lyn MD LAB BLOOD ORDERABLES Final Result [facility] [address] [place] [address] * (ABNORMAL) Hemoglobin A1c (12/23/2023 5:39 PM EDT) Hemoglobin A1c 6.3(H) <5.7 % 12/24/2023 12:22 AM EDT [facility] Blood Venous blood specimen / Unknown Venipuncture / Unknown 12/23/2023 5:39 PM EDT 12/23/2023 5:55 PM EDT Narrative [facility] - 12/24/2023 12:22 AM EDT HA1C Interpretive Data: Diagnosis of Diabetes: Diabetic > or = 6.5% Pre-diabetic 5.7 to 6.4% Non-diabetic < or = 5.6% Glycemic Targets for Type I and Type II Diabetics: Non- Adults <7.0% Adults <6.0% Children and Adolescents <7.5% Source: [place] [employer]. Standards of medical care in diabetes,2017. Diabetes Care.2017:40 (suppl 1):S1-S135. HbA1c assay performed by an ion-exchange chromatography method that is certified traceable to the DCCT. 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 Yes Care Teams School Office Manager Relationship Specialty Start Date End Date Edi Chase MD [address] [place] [address] PCP - General 03/14/20 Sam Sanchez MD [address] [place] [address] Consulting Physician Pulmonary Disease 08/11/22 Cayetano Cannon MD [address] [facility] [address] [place] [address] Referring Physician 08/11/22
--- OUTSIDE RECORDS SUMMARY | 2024-10-26 13:28 | XMS_ITS | Clinical Summary ---
Author Organization [facility] Address [address] [place] [address] Phone Care Team Providers Care Lie Detector Operator Name Role Phone Unavailable Primary Care [...] this topic Medical Devices Implanted Type Area Parts Coordinator Device Identifier Shelf Expiration Date Model / Serial / Lot Stent Coronary Vision Rx 3.50mm X 18mm - [id number] Implanted:Qty: 1 on 03/16/2010 at [employer] Explanted:at [employer] (Quantity not on file) Stent-Vis ion [facility] LAB:VASC DEV [id number] / / [id number] Insurance [place]ICARE [place] A [place] B [place] [id number] [place] [address] [place]ARE [place]
--- OUTSIDE RECORDS SUMMARY | 2024-10-26 13:28 | XMS_ITS | Encounter Summary ---
Author Organization [facility] Address [address] [place] [address] Care Team Providers Care Mushroom Sorter Grader Name Role Phone Edi Chase MD Primary Care Provider [phone] Sam Sanchez MD Unavailable [phone] Cayetano Cannon MD Unavailable [phone] Encounter Details Date Type Department Care [...] How often do you attend chur or latter day services? Patient unable to answer 12/26/2023 Do [...] Recorded Patient Health Questionnaire-2 Score 1 08/27/[facility] - Occupational Stress Questionnaire Answer Date [...] th e electric, gas, oil, or water [employer] threatened to shut off services in your [...] documented as of this encounter Care Teams Mushroom Sorter Grader Relationship Specialty Start Date End Date Edi Chase MD [address] [place] [address] PCP - General 03/14/20 Sam Sanchez MD [address] [place] [address] Consulting Physician Pulmonary Disease 08/11/22 Cayetano Cannon MD [address] [place] [address] Referring Physician 08/11/22 documented as of this encounter
--- OUTSIDE RECORDS SUMMARY | 2024-10-26 13:28 | XMS_ITS | Encounter Summary ---
Author Organization [facility] Address [address] [place] [address] Care Team Providers Care Farmhand Name Role Phone Edi Chase MD Primary Care Provider [phone] Sam Sanchez MD Unavailable [phone] Cayetano Cannon MD Unavailable [phone] Encounter Details Date Type Department Care [...] any clubs o r organizations such as taoism groups, unions, fraternal or athletic groups, or [...] Recorded Patient Health Questionnaire-2 Score 1 08/27/2024 [facility] - Occupational Stress Questionnaire Answer [...] documented as of this encounter Care Teams Farmhand Relationship Specialty Start Date End Date Edi Chase MD [address] [place] [facility] [address] PCP - General 03/14/20 Sam Sanchez MD [address] [place] [address] Consulting Physician Pulmonary Disease 08/11/22 Cayetano Cannon MD [address] [facility] [address] [place] [address] Referring Physician 08/11/22 documented as of this encounter
--- NOTE | 2024-10-26 13:56 | XR_ITS ---
FINAL REPORT CLINICAL HISTORY: shortness of breath cp COMPARISON: CT chest 10/24/2024 FINDINGS: Left upper lobe opacity corresponds to known mass and postobstructive pneumonia. This has a stable appearance compared to CT tomography from 10/24/2024. The right lung is clear. There is no evidence of effusion or other pleural disease. The mediastinum has a normal appearance. The cardiac silhouette is unremarkable. IMPRESSION: Stable appearance left upper lobe mass and postobstructive pneumonia. Reviewed, Interpreted and Dictated by Onesimo Velazquez MD Transcribed by Sayra Bliss Authenticated and [facility]
[2024-10-26 14:07] LABS: Hematocrit 27.0 % (42.0-52.0); Hemoglobin 8.4 g/dL (14.1-18.0); Immature Granulocytes % 0.4 %; Mean Corpuscular HGB Conc 31.1 g/dL (31.8-35.4); Mean Corpuscular Hemoglobin 28.0 pg (27.0-31.2); Mean Corpuscular Volume 90.0 fl (80-94); Nucleated Red Blood Cells % 0.6 %; Platelet Count 265 K/mm3 (142-424); Red Blood Count 3.00 M/mm3 (4.60-6.20); Red Cell Distribution Width-SD 52.8 fL; White Blood Count 7.1 K/mm3 (4.8-10.8)
[2024-10-26 14:14] LABS: Alanine Aminotransferase 17 U/L (12-78); Albumin Level 3.9 g/dl (3.5-5.0); Albumin/Globulin Ratio 1.2 (1.1-1.8); Alkaline Phosphatase 72 U/L (38-126); Anion Gap 12.1 mEq/L (5-15); Aspartate Amino Transferase 25 U/L (17-59); Blood Urea Nitrogen 35 mg/dl (9-20); Calcium 8.9 mg/dl (8.4-10.2); Carbon Dioxide 24 mmol/L (22.0-30.0); Chloride 112 mmol/L (98-107); Creatinine Clearance Estimated 52 mL/min (50-200); Creatinine,Serum 1.90 mg/dl (0.66-1.25); Estimated Glomerular Filt Rate 35 ml/min (>60); GFR (African American) 42 ML/MIN (>60); Globulin 3.2 g/dL (1.3-3.2); Glucose 131 mg/dl (74-100); Potassium 4.1 mmoL/L (3.5-5.1); Sodium 144 mmol/L (136-145); Total Protein,Serum 7.1 g/dl (6.3-8.2)
[2024-10-26] MEDS: MAGNESIUM SULFATE IN WATER 2 GM/50 ML PIGGYBACK IV (14:14)
[2024-10-26] MEDS: METHYLPREDNISOLONE SOD SUCC 125MG VIAL 125 MG IV (14:14)
[2024-10-26] MEDS: IPRATROPIUM/ALBUTEROL 3 ML NEB 9 ML IH (14:18)
[2024-10-26 14:19] LABS: D-Dimer 1.17 ug/mL (0.0-0.5)
[2024-10-26 14:27] LABS: NT Pro Brain Natriuretic Pep. 5300 pg/mL (0-450)
[2024-10-26 14:33] LABS: Bilirubin,Total 0.1 mg/dl (0.2-1.3); Troponin I 0.01 ng/ml (0.00-0.034)
[2024-10-26 14:36] LABS: Adenovirus,PCR Not Detected (NotDetected); Chlamydophila Pneumoniae, PCR Not Detected (NotDetected); Coronavirus 19, PCR Not Detected (NotDetected); Coronovirus HKU1,PCR Not Detected (NotDetected); Influenza A, PCR Not Detected (NotDetected); Influenza AH1, 2009 Not Detected (NotDetected); Influenza AH1, PCR Not Detected (NotDetected); Influenza AH3,PCR Not Detected (NotDetected); Influenza B, PCR Not Detected (NotDetected); Mycoplasma Pneumoniae, PCR Not Detected (NotDetected); Parainfluenza 1, PCR Not Detected (NotDetected); Parainfluenza 2, PCR Not Detected (NotDetected); Parainfluenza 3, PCR Not Detected (NotDetected); Parainfluenza 4, PCR Not Detected (NotDetected)
[2024-10-26 14:39] LABS: RBC Morphology Normal; Total Cells Counted 100
--- NOTE | 2024-10-26 15:01 | PC.NURSE ---
Neris in resp. notified that a green top was sent to lab for a VBG
[2024-10-26 15:10] LABS: Lactate Venous 1.6 mmol/L (0.4-2.0); VBG HCO3 21.6 mmol/L (23-30); VBG PCO2 29.4 mmol/L (35-51); VBG PH 7.48 mmol/L (7.31-7.41); VBG PO2 180.9 mmol/L (28-40)
--- NOTE | 2024-10-26 15:21 | PC.NURSE ---
patient in radiology
--- NOTE | 2024-10-26 15:22 | PC.NURSE ---
patient received warm blanket, call light in reach
[2024-10-26] MEDS: FUROSEMIDE 40MG/4ML VIAL 40 MG IV (15:59)
--- NOTE | 2024-10-26 16:03 | PC.NURSE ---
bhandari catheter emptied prior to lasix administration. pending catheter exchange after UA results
[2024-10-26 16:06] LABS: Microscopic, Urine URINE MICROSCOPIC (MICROSCOPIC)
[2024-10-26 16:10] LABS: Bilirubin,Urine Negative (Negative); Color,Urine YELLOW (Yellow); Glucose,Urine (UA) Negative (Negative); Ketones,Urine Negative (Negative); Leukocyte Esterase,Urine 2+ (Negative); PH,Urine 6.0 (5.0-8.5); Protein,Urine 2+ (Negative); Specific Gravity, Urine 1.020 (1.005-1.030); Urobilinogen,Urine 0.2 EU/dl (0.2)
[2024-10-26 16:20] LABS: WBC,Urine 20-50 #/hpf (0-3)
[2024-10-26 16:21] LABS: Bacteria,Urine 4+ /lpf
--- NOTE | 2024-10-26 16:37 | PC.NURSE ---
transfer and pumphouse operator chief notified of admission
--- NOTE | 2024-10-26 16:38 | PC.NURSE ---
HS notified of the need for a bed to admit
[2024-10-26 17:01] LABS: Troponin I 0.01 ng/ml (0.00-0.034)
[2024-10-26 17:04] LABS: Microscopic,Cath URINE MICROSCOPIC (MICROSCOPIC)
[2024-10-26 17:09] LABS: Appearance,Urine/Cath SL CLOUDY (Clear); Bilirubin,Cath Negative (Negative); Blood, Urine/Cath 3+ (Negative); Color,Urine/Cath YELLOW (Yellow); Glucose,Urine/Cath (UA) Negative (Negative); Ketones,Urine/Cath Negative (Negative); Leukocyte Esterase,Cath 3+ (Negative); Nitrate,Cath Negative (Negative); PH,Urine/Cath 6.0 (5.0-8.5); Protein,Urine/Cath 2+ (Negative); Specific Gravity, Urine/Cath 1.015 (1.005-1.030); Urobilinogen,Cath 0.2 EU/dl (0.2)
[2024-10-26 17:26] LABS: Bacteria,Urine/Cath 4+ /lpf; WBC,Urine/Cath TNTC #/hpf (0-3)
[2024-10-26] MEDS: AZITHROMYCIN 500 MG in 0.9 % SODIUM CHLORIDE 250 ML 250 MG IV (18:12)
--- NOTE | 2024-10-26 18:20 | EXP.HP ---
History of Present Illness *Admission Date: 10/26/24 *History of present illness: Edi Toussaint is a 74-year-old male with a medical history significant for COPD on 2 L baseline, lung adenocarcinoma, legally blind presents with shortness of breath. States has been going on for a while, worse over the past few days. Recently diagnosed with left upper lobe adenocarcinoma, following with pulmonology and oncology. Initially required 5 L here, with airway restriction requiring DuoNebs and steroids in the ED. CXR shows postobstructive pneumonia but CTA chest does not corroborate this. CBC, CMP unremarkable. UA grossly abnormal. On my evaluation, patient increased work of breathing, airway tightness requiring 5 L. Given this, ED provider discussed case with me and I decided to admit patient for acute on chronic hypoxic respiratory failure secondary to COPD exacerbation. [facility] Disclaimer: The information contained in this section may have been updated after the patient was seen, as this information can be updated by other users. Medical History (Updated 10/27/24 @ 14:08 by Bruno Rasmussen MD) Acute exacerbation of chronic obstructive pulmonary disease AARON (obstructive sleep apnea) Lung cancer COPD mixed type PAF (paroxysmal atrial fibrillation) Knee pain, right Hyperkalemia Polycystic kidney UTI (urinary tract infection) Acute renal injury Jason catheter in place Pain in left arm Chronic hypoxic respiratory failure, on home oxygen therapy Hx of prostatic malignancy Colon cancer Knee pain Heart failure with preserved ejection fraction Peripheral edema Adenocarcinoma of lung Chronic obstructive pulmonary disease CKD (chronic kidney disease) Stopped smoking with greater than 30 pack year history CVA (cerebral vascular accident) Blind Congestive heart failure Renal stones Gastroesophageal reflux 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) CVA (cerebral vascular accident) Obesity (BMI 30.0-34.9) Elevated left ventricular end-diastolic pressure (LVEDP) Diastolic dysfunction Pulmonary HTN Surgical History S/P coronary artery stent placement Hx of total knee arthroplasty History of bowel resection History of bronchoscopy History of ureteroscopy History of colonoscopy History of colectomy Family History Unknown Cancer self; post lung, prostate, and colon Other Family history of cancer Social History (Updated 10/26/24 @ 18:13 by Siomara Mattson, RN) Smoking Status: Former smoker tobacco type: cigarettes packs per day: 1 alcohol intake: never substance use type: denies use current occupational status: disabled Travel in the last 8 weeks?: None caregiver/support person: Yes household members: none housing: prison lives independently: No marital status: single current occupation: [employer] current occupational exposures/hazards: No caffeine: Yes special milad needs: No agree to transfusion: No do you feel safe at home: Yes victim of physical abuse: No victim of emotional abuse: No victim of sexual abuse: No would you like helpful sources: No Have you lived/traveled outside [place] in past 30 days?: No Contact w/someone who lives/traveled outside [place] past 30 days?: No Exposure to someone with infectious disease in past 14 days?: No Do you have a fever (greater than 100.4 F or 38 C)?: No Have you tested positive for COVID-19?: No Exposed to someone with COVID-19 in past 14 days?: No Do you have a sore throat?: No Do you have a cough?: No Do you have any weakness?: No Are you experiencing any nausea/vomitting?: No Do you have any diarrhea?: No Are you experiencing any unusual bleeding?: No Do you have any muscle aches/pain?: No Do you have any abdominal pain?: No Are you experiencing loss of taste or smell?: No Other Medical History Have you received the Flu Vaccine for this season: Yes Have you received the Pneumonia Vaccine: Yes Meds Home Medications and Allergies Home Medications ?Medication ?Instructions ?Recorded ?Confirmed ?Type cetirizine 10 mg tablet 10 mg PO DAILY 06/09/23 10/27/24 History ferrous sulfate 325 mg (65 mg 325 mg PO DAILY 06/09/23 10/27/24 History iron) tablet isosorbide mononitrate 30 mg 30 mg PO DAILY 06/09/23 10/27/24 History tablet,extended release 24 hr oxcarbazepine 300 mg tablet 300 mg PO BID 06/09/23 10/27/24 History acetaminophen 500 mg capsule 500 mg PO Q4HP PRN Mild Pain 06/10/23 10/27/24 History (Scale Score 1-4) multivitamin 1 tab PO DAILY 06/10/23 10/27/24 History timolol maleate 0.5 % eye drops 1 drp ophthalmic (eye) DAILY 06/10/23 10/27/24 History escitalopram oxalate 5 mg tablet 5 mg PO DAILY 12/06/23 10/27/24 History (Lexapro) guaifenesin 100 mg/5 mL oral liquid 200 mg PO Q6HP PRN Cough 12/22/23 10/27/24 History lidocaine 4 % topical patch 1 patch topical DAILY 12/22/23 10/27/24 History (Lidocaine Pain Relief) ondansetron HCl 4 mg tablet 4 mg PO Q4HP PRN Nausea 12/22/23 10/27/24 History fluticasone fur. 100 mcg-umeclid 1 inh inhalation DAILY #60 ea 01/03/24 10/27/24 Rx 62.5 mcg-vilant 25 mcg inhalat.powder (Trelegy Ellipta) albuterol sulfate 90 mcg/actuation 1 puff inhalation Q4HP PRN 02/14/24 10/27/24 History aerosol inhaler (Ventolin HFA) Shortness Of Breath loperamide 2 mg capsule 2 mg PO Q6HP PRN Diarrhea 02/14/24 10/27/24 History white petrolatum-mineral oil 94 1 applic ophthalmic (eye) HS 02/14/24 10/27/24 History %-3 % eye ointment (Systane Nighttime) finasteride 5 mg tablet 5 mg PO DAILY #90 tabs 03/05/24 10/27/24 Rx tamsulosin 0.4 mg capsule 0.4 mg PO HS 90 days #90 caps 03/05/24 10/27/24 Rx aluminum hydrox-magnesium carb 95 30 ml PO Q6HP PRN Acid Reflux 04/24/24 10/27/24 History mg-358 mg/15 mL oral suspension (Acid Gone Antacid) apixaban 2.5 mg tablet (Eliquis) 2.5 mg PO BID #60 tabs 05/24/24 10/27/24 Rx gabapentin 100 mg capsule 100 mg PO BID #60 caps 06/08/24 10/27/24 Rx fluticasone propionate 50 2 spray intranasal DAILY 06/26/24 10/27/24 History mcg/actuation nasal spray,suspension (Flonase Allergy Relief) metoprolol succinate 100 mg 100 mg PO DAILY 06/26/24 10/27/24 History tablet,extended release 24 hr ipratropium 0.5 mg-albuterol 3 mg 3 ml inhalation QIDP PRN Shortness 09/04/24 10/27/24 History (2.5 mg base)/3 mL nebulization Of Breath Or Wheezing soln sennosides 8.6 mg tablet (Senna 17.2 mg PO HS 09/04/24 10/27/24 History Laxative) atorvastatin 40 mg tablet 40 mg PO HS 30 days #30 tabs 09/12/24 10/27/24 Rx clopidogrel 75 mg tablet 75 mg PO DAILY 30 days #30 tabs 09/12/24 10/27/24 Rx pantoprazole 40 mg tablet,delayed 40 mg PO HS 30 days #30 tabs 09/12/24 10/27/24 Rx release oxycodone 10 mg tablet 10 mg PO TID #90 tabs 10/08/24 10/27/24 Rx diclofenac sodium 1 % topical gel 1 g topical BID 10/27/24 10/27/24 History furosemide 20 mg tablet 20 mg PO DAILY 10/27/24 10/27/24 History New Prescriptions to Start Prescriptions: Allergies Allergy/AdvReac Type Severity Reaction Status Date / Time No Known Allergies Allergy Verified 10/23/24 14:38 Exam Data for Last 24 hours Vital signs and Labs for Last 24 Hours: Temp Pulse Resp BP Pulse Ox O2 Del Method O2 Flow Rate 98 F 60 16 169/82 H 94 L Nasal Cannula 3 10/26/24 17:35 10/26/24 17:35 10/26/24 17:35 10/26/24 17:35 10/26/24 17:33 10/26/24 17:35 10/26/24 17:35 Laboratory Results - last 24 hr 10/26/24 13:22: WBC 7.1, RBC 3.00 L, Hgb 8.4 L, Hct 27.0 L, MCV 90.0, MCH 28.0, MCHC 31.1 L, RDW 16.0, Plt Count 265, MPV 9.8, Neut % (Auto) 78.7, Lymph % (Auto) 6.9 L, [place] % (Auto) 10.3 H, Eos % (Auto) 3.0, Baso % (Auto) 0.7, Neut # (Auto) 5.6, Lymph # (Auto) 0.5 L, [place] # (Auto) 0.7, Eos # (Auto) 0.2, Baso # (Auto) 0.1, Total Counted 100, Neutrophils % (Manual) 84 H, Lymphocytes % (Manual) 13, Monocytes % (Manual) 2, Eosinophils % (Manual) 1, Platelet Estimate Normal, RBC Morphology Normal, D-Dimer 1.17 H, Sodium 144, Potassium 4.1, Chloride 112 H, Carbon Dioxide 24, Anion Gap 12.1, BUN 35 H, Creatinine 1.90 H, Estimated Creat Clear 52, Estimated GFR 35 L, Est GFR ( Amer) 42 L, Glucose 131 H, Calcium 8.9, Total Bilirubin 0.1 L, AST 25, ALT 17, Alkaline Phosphatase 72, Troponin I 0.01, NT-Pro-B Natriuret Pep 5300 H, Total Protein 7.1, Albumin 3.9, Globulin 3.2, Albumin/Globulin Ratio 1.2 10/26/24 14:50: VBG pH 7.48 H, VBG pCO2 29.4 L, VBG pO2 180.9 H, VBG HCO3 21.6 L, VBG Total CO2 22.5 L, VBG O2 Saturation 99.3 H, VBG Base Excess -1.8, VBG Lactic Acid 1.6 10/26/24 15:39: Urine Color Yellow, Urine Appearance Clear, Urine pH 6.0, Ur Specific [place] 1.020, Urine Protein 2+ A, Urine Glucose (UA) Negative, Urine Ketones Negative, Urine Blood 3+ A, Urine Nitrate Negative, Urine Bilirubin Negative, Urine Urobilinogen 0.2, Ur Leukocyte Esterase 2+ A, Urine RBC 5-10, Urine WBC 20-50, Ur Squamous Epith Cells 3-5, Urine Bacteria 4+ 10/26/24 16:20: Troponin I 0.01 10/26/24 16:32: Urine Color Yellow, Urine Appearance Sl cloudy, Urine pH 6.0, Ur Specific [place] 1.015, Urine Protein 2+, Urine Glucose (UA) Negative, Urine Ketones Negative, Urine Blood 3+, Urine Nitrate Negative, Urine Bilirubin Negative, Urine Urobilinogen 0.2, Ur Leukocyte Esterase 3+ A, Urine RBC 10-20, Urine WBC Tntc A, Ur Squamous Epith Cells 3-5, Urine Bacteria 4+ A I & O for Last 24 hours: Intake & Output 10/23/24 10/24/24 10/25/24 10/26/24 23:59 23:59 23:59 23:59 Output Total 2199 / 2199 Balance -2199 / -2199 Weight 111.584 kg Constitutional Constitutional: mild distress *Routine HEENT Exam Head: Present normocephalic Eye: Present EOMI and PERRL ENT: Present mucous membranes moist *Routine Neck Exam Neck: Present supple; Absent lymphadenopathy *Routine Respiratory Exam Respiratory: Present wheezes; Absent CTA bilaterally *Routine Cardiovascular Exam Cardiovascular: Present RRR *Routine Abdominal Exam Abdominal: Present soft and normoactive bowel sounds; Absent tenderness *Routine Rectal Exam Rectal:: deferred *Routine Genitalia Exam Genitalia:: deferred *Routine Extremities Exam Extremities: Absent cyanosis, clubbing or edema *Routine Skin Exam Skin: Present warm; Absent rash *Routine Neurological Exam Neurological: Present alert and oriented X3 Assessment and Plan *Assessment and plan (1) Acute exacerbation of chronic obstructive pulmonary disease: Status: Acute Category: Medical Code(s): J44.1 - Chronic obstructive pulmonary disease with (acute) exacerbation Plan Edi Toussaint is a 74-year-old male with a medical history significant for COPD on 2 L baseline, lung adenocarcinoma, legally blind presents with shortness of breath. States has been going on for a while, worse over the past few days. Recently diagnosed with left upper lobe adenocarcinoma, following with pulmonology and oncology. Initially required 5 L here, with airway restriction requiring DuoNebs and steroids in the ED. CXR shows postobstructive pneumonia but CTA chest does not corroborate this. CBC, CMP unremarkable. UA grossly abnormal. On my evaluation, patient increased work of breathing, airway tightness requiring 5 L. Given this, ED provider discussed case with me and I decided to admit patient for acute on chronic hypoxic respiratory failure secondary to COPD exacerbation. #Mild COPD exacerbation ? Presented with shortness of breath, initially requiring 5 L, baseline 2 L with airway tightness. ? Improved with DuoNebs, initial steroids, ceftriaxone, azithromycin. Back to baseline 2 L. ? CTA chest without pulmonary emboli. ? Continue home Trelegy, follow-up with pulmonology within 2 week. #Left upper lobe lung adenocarcinoma ? Former smoker, following with pulmonology and oncology closely. ? Completed radiation therapy, however mass showing progression. Considering chemotherapy, will follow-up with oncology with decision. #A-fib ? Continue home medication once reconciled. #HFpEF ? Continue home medication once reconciled. #GERD ? Continue home PPI. #BPH ? Continue home Flomax. Full code DVT prophylaxis: Lovenox
[2024-10-26] MEDS: CEFTRIAXONE 1 GM 1 GM in 0.9 % SODIUM CHLORIDE 50 ML IV (19:53)
--- NOTE | 2024-10-26 21:04 | PC.NURSE ---
patient ambulated to the toilet with with assistance and was unsteady. patient had a bowel movement, catheter was emptied.
[2024-10-26 21:09] LABS: Troponin I < 0.01 ng/ml (0.00-0.034)
--- NOTE | 2024-10-26 21:33 | CT_ITS ---
PROCEDURE INFORMATION: Exam: CTA Chest With Contrast Exam date and time: 10/26/2024 10:07 PM Age: 74 years old Clinical indication: Shortness of breath; Additional info: Shortness of breath, hypoxia, malignancy TECHNIQUE: Imaging protocol: Computed tomographic angiography of the chest with contrast. Exam focused on the arteries. 3D rendering (Not supervised by radiologist): MIP and/or 3D reconstructed images were created by the technologist. Radiation optimization: All CT scans at this facility use at least one of these dose optimization techniques: automated exposure control; mA and/or kV adjustment per patient size (includes targeted exams where dose is matched to clinical indication); or iterative reconstruction. Contrast material: ISOVUE; Contrast volume: 80 ml; Contrast route: INTRAVENOUS (IV); COMPARISON: CT ANGIO CHEST PE PROTOCOL 09/13/2024 12:18 PM FINDINGS: Pulmonary arteries: No central or segmental pulmonary arterial intraluminal filling defects identified. Aorta: Unremarkable. No aortic aneurysm. No aortic dissection. Lungs: Modestly larger, poorly defined left apical/suprahilar consolidative mass with partial encasement of bronchovascular structures. Pleural spaces: Unremarkable. No pneumothorax. No pleural effusion. Heart: Unremarkable. No cardiomegaly. No pericardial effusion. Lymph nodes: Unremarkable. No enlarged lymph nodes. Bones/joints: Unremarkable. No acute fracture. Soft tissues: Unremarkable. IMPRESSION: 1. No central or segmental pulmonary arterial embolism identified. 2. Modestly larger left apical/suprahilar consolidative mass with partial encasement of adjacent bronchovascular structures.
--- NOTE | 2024-10-26 21:41 | PC.NURSE ---
patient has CTA ordered but low CRCL - radiology called and stated patient needed to drink 2 cups of water prior - patient drunk 480ml - radiology notified patient is ready for transport.
[2024-10-26] MEDS: SODIUM CHLORIDE 0.9% 10ML SYR (RAD ONLY) 10 ML IV (22:11)
[2024-10-26] MEDS: 0.9 % SODIUM CHLORIDE 50 ML VIAL IV (22:12)
[2024-10-26] MEDS: IOPAMIDOL-370 (76%);100ML BOTTLE 80 ML IV (22:12)
[2024-10-27] VITALS (8 sets, daily range): BP systolic 116–191; BP diastolic 72–96; PULSE 58–90; RESP 18–21; TEMP 36.6–36.8; O2SAT 93–98; BMI 31.8
[2024-10-27] MEDS: IPRATROPIUM/ALBUTEROL 3 ML NEB IH ×4 (00:46→18:13)
[2024-10-27] MEDS: SODIUM CHLORIDE 3% 15ML NEB 3 ML IH (00:46)
--- NOTE | 2024-10-27 05:42 | PC.NURSE ---
This RN took over care at 0100. Patient has been resting well with no complaints. Jason in place, draining clear urine. Ambulates to restroom with 2 assist. 3L NC, baseline 2-3L NC. Bed alarm on. Call light in reach.
[2024-10-27 07:46] LABS: Hematocrit 26.5 % (42.0-52.0); Hemoglobin 8.1 g/dL (14.1-18.0); Immature Granulocytes % 0.3 %; Mean Corpuscular HGB Conc 30.6 g/dL (31.8-35.4); Mean Corpuscular Hemoglobin 27.6 pg (27.0-31.2); Mean Corpuscular Volume 90.1 fl (80-94); Nucleated Red Blood Cells % 0.3 %; Platelet Count 241 K/mm3 (142-424); Red Blood Count 2.94 M/mm3 (4.60-6.20); Red Cell Distribution Width-SD 52.1 fL; White Blood Count 6.4 K/mm3 (4.8-10.8)
[2024-10-27 07:54] LABS: Albumin Level 3.8 g/dl (3.5-5.0); Chloride 110 mmol/L (98-107); Potassium 4.5 mmoL/L (3.5-5.1); Sodium 141 mmol/L (136-145)
[2024-10-27 07:56] LABS: Alanine Aminotransferase 15 U/L (12-78); Albumin/Globulin Ratio 1.2 (1.1-1.8); Alkaline Phosphatase 72 U/L (38-126); Anion Gap 10.5 mEq/L (5-15); Aspartate Amino Transferase 22 U/L (17-59); Bilirubin,Total 0.2 mg/dl (0.2-1.3); Blood Urea Nitrogen 36 mg/dl (9-20); Carbon Dioxide 25 mmol/L (22.0-30.0); Creatinine Clearance Estimated 59 mL/min (50-200); Creatinine,Serum 1.80 mg/dl (0.66-1.25); Estimated Glomerular Filt Rate 37 ml/min (>60); GFR (African American) 45 ML/MIN (>60); Globulin 3.2 g/dL (1.3-3.2); Total Protein,Serum 7.0 g/dl (6.3-8.2)
[2024-10-27 07:57] LABS: Calcium 9.0 mg/dl (8.4-10.2); Glucose 98 mg/dl (74-100); Magnesium 2.4 mg/dl (1.6-2.3)
[2024-10-27 09:07] LABS: Macrocytosis 1+; Polychromasia 1+; Total Cells Counted 100
--- NOTE | 2024-10-27 10:56 | P.CONPHA_ITS ---
Pharmacy Intervention Comments: MEDICATION RECONCILIATION COMPLETE USING MAR FROM [facility].
--- NOTE | 2024-10-27 10:56 | HMH.PHAINT1 ---
Pharmacy Intervention Comments: MEDICATION RECONCILIATION COMPLETE USING MAR FROM [facility].
--- NOTE | 2024-10-27 11:37 | EXP.DC.SUM ---
General Admission date:: 10/26/24 HPI HPI HPI: Edi Toussaint is a 74-year-old male with a medical history significant for COPD on 2 L baseline, lung adenocarcinoma presents with shortness of breath. Found to have COPD exacerbation. However, I do have concern for pulmonary emboli especially in setting of malignancy. Initially required 5 L, baseline 2 L. Follow-up CTA chest. CXR shows postobstructive pneumonia. Continue DuoNebs every 6 hours. On my evaluation, patient was more comfortable and did not have significant wheezing on exam. Will monitor overnight. Also found to have abnormal UA. Continue ceftriaxone, azithromycin for pneumonia. Follow-up sputum, blood, urine cultures. Hospital Course Hospital Course Hospital Course: Edi Toussaint is a 74-year-old male with a medical history significant for COPD on 2 L baseline, lung adenocarcinoma, legally blind presents with shortness of breath. States has been going on for a while, worse over the past few days. Recently diagnosed with left upper lobe adenocarcinoma, following with pulmonology and oncology. Initially required 5 L here, with airway restriction requiring DuoNebs and steroids in the ED. CXR shows postobstructive pneumonia but CTA chest does not corroborate this. CBC, CMP unremarkable. UA grossly abnormal. On my evaluation, patient increased work of breathing, airway tightness requiring 5 L. Given this, ED provider discussed case with me and I decided to admit patient for acute on chronic hypoxic respiratory failure secondary to COPD exacerbation. #Mild COPD exacerbation ? Presented with shortness of breath, initially requiring 5 L, baseline 2 L with airway tightness. ? Improved with DuoNebs, initial steroids, ceftriaxone, azithromycin. Back to baseline 2 L. ? Continue home Trelegy, follow-up with pulmonology within 2 week. #Left upper lobe lung adenocarcinoma ? Former smoker, following with pulmonology and oncology closely. ? Completed radiation therapy, however mass showing progression. Considering chemotherapy, will follow-up with oncology with decision. #A-fib ? Currently rate controlled. Continue home metoprolol, Eliquis. #HFpEF ? Continue home Lasix, Imdur. #GERD ? Continue home PPI. #BPH ? Continue home Flomax. Total time spent on discharge: 31 minutes on chart review, counseling, documentation, and direct care with patient. Exam Data for Last 24 hours Vital signs and Labs for Last 24 Hours: Temp Pulse Resp BP Pulse Ox O2 Del Method O2 Flow Rate 98.3 F 63 18 116/76 94 L Nasal Cannula 3 10/27/24 08:00 10/27/24 11:07 10/27/24 08:00 10/27/24 08:00 10/27/24 11:07 10/27/24 11:07 10/27/24 11:07 Laboratory Results - last 24 hr 10/26/24 13:22: WBC 7.1, RBC 3.00 L, Hgb 8.4 L, Hct 27.0 L, MCV 90.0, MCH 28.0, MCHC 31.1 L, RDW 16.0, Plt Count 265, MPV 9.8, Neut % (Auto) 78.7, Lymph % (Auto) 6.9 L, [place] % (Auto) 10.3 H, Eos % (Auto) 3.0, Baso % (Auto) 0.7, Neut # (Auto) 5.6, Lymph # (Auto) 0.5 L, [place] # (Auto) 0.7, Eos # (Auto) 0.2, Baso # (Auto) 0.1, Total Counted 100, Neutrophils % (Manual) 84 H, Lymphocytes % (Manual) 13, Monocytes % (Manual) 2, Eosinophils % (Manual) 1, Platelet Estimate Normal, RBC Morphology Normal, D-Dimer 1.17 H, Sodium 144, Potassium 4.1, Chloride 112 H, Carbon Dioxide 24, Anion Gap 12.1, BUN 35 H, Creatinine 1.90 H, Estimated Creat Clear 52, Estimated GFR 35 L, Est GFR ( Amer) 42 L, Glucose 131 H, Calcium 8.9, Total Bilirubin 0.1 L, AST 25, ALT 17, Alkaline Phosphatase 72, Troponin I 0.01, NT-Pro-B Natriuret Pep 5300 H, Total Protein 7.1, Albumin 3.9, Globulin 3.2, Albumin/Globulin Ratio 1.2 10/26/24 14:33: Chlamy pneumoniae PCR Not detected, Adenovirus (PCR) Not detected, B. pertussis DNA (PCR) Not detected, Coronavirus OC43 (PCR) Not detected, Coronavirus HKU1 (PCR) Not detected, Coronavirus 229E (PCR) Not detected, SARS-CoV-2 (PCR) Not detected, Coronavirus NL63 (PCR) Not detected, Human Metapneumovir PCR Not detected, Influenza A (H1) PCR Not detected, Influ A (H1N1/09) PCR Not detected, Influenza A (H3) PCR Not detected, Influenza Type A (PCR) Not detected, Influenza Type B (PCR) Not detected, M. pneumoniae (PCR) Not detected, Parainfluenza 1 (PCR) Not detected, Parainfluenza 2 (PCR) Not detected, Parainfluenza 3 (PCR) Not detected, Parainfluenza 4 (PCR) Not detected, RSV (PCR) Not detected, Entero/Rhino (PCR) Not detected 10/26/24 14:50: VBG pH 7.48 H, VBG pCO2 29.4 L, VBG pO2 180.9 H, VBG HCO3 21.6 L, VBG Total CO2 22.5 L, VBG O2 Saturation 99.3 H, VBG Base Excess -1.8, VBG Lactic Acid 1.6 10/26/24 15:39: Urine Color Yellow, Urine Appearance Clear, Urine pH 6.0, Ur Specific [place] 1.020, Urine Protein 2+ A, Urine Glucose (UA) Negative, Urine Ketones Negative, Urine Blood 3+ A, Urine Nitrate Negative, Urine Bilirubin Negative, Urine Urobilinogen 0.2, Ur Leukocyte Esterase 2+ A, Urine RBC 5-10, Urine WBC 20-50, Ur Squamous Epith Cells 3-5, Urine Bacteria 4+ 10/26/24 16:20: Troponin I 0.01 10/26/24 16:32: Urine Color Yellow, Urine Appearance Sl cloudy, Urine pH 6.0, Ur Specific [place] 1.015, Urine Protein 2+, Urine Glucose (UA) Negative, Urine Ketones Negative, Urine Blood 3+, Urine Nitrate Negative, Urine Bilirubin Negative, Urine Urobilinogen 0.2, Ur Leukocyte Esterase 3+ A, Urine RBC 10-20, Urine WBC Tntc A, Ur Squamous Epith Cells 3-5, Urine Bacteria 4+ A 10/26/24 20:24: Troponin I < 0.01 10/27/24 06:50: WBC 6.4, RBC 2.94 L, Hgb 8.1 L, Hct 26.5 L, MCV 90.1, MCH 27.6, MCHC 30.6 L, RDW 15.9, Plt Count 241, MPV 9.7, Neut % (Auto) 83.8 H, Lymph % (Auto) 7.4 L, [place] % (Auto) 8.3, Eos % (Auto) 0.0 L, Baso % (Auto) 0.2, Neut # (Auto) 5.3, Lymph # (Auto) 0.5 L, [place] # (Auto) 0.5, Eos # (Auto) 0.0, Baso # (Auto) 0.0, Total Counted 100, Neutrophils % (Manual) 85 H, Lymphocytes % (Manual) 11, Monocytes % (Manual) 4, Platelet Estimate Normal, Polychromasia 1+, Macrocytosis 1+, Sodium 141, Potassium 4.5, Chloride 110 H, Carbon Dioxide 25, Anion Gap 10.5, BUN 36 H, Creatinine 1.80 H, Estimated Creat Clear 59, Estimated GFR 37 L, Est GFR ( Amer) 45 L, Glucose 98 D, Calcium 9.0, Magnesium 2.4 H, Total Bilirubin 0.2, AST 22, ALT 15, Alkaline Phosphatase 72, Total Protein 7.0, Albumin 3.8, Globulin 3.2, Albumin/Globulin Ratio 1.2 I & O for Last 24 hours: Intake & Output 10/24/24 10/25/24 10/26/24 10/27/24 23:59 23:59 23:59 23:59 Intake Total 410 / 410 Output Total 3800 / 3800 2200 / 2200 Balance -3800 / -3750 -1790 / -1790 Weight 111.584 kg 118.569 kg Microbiology Reports for the Last 24 Hours: Microbiology 10/26/24 16:32 Urine,Catheterized Urine Culture - Preliminary Gram Negative Rods 10/26/24 15:58 Urine,Clean Catch Urine Culture - Preliminary Gram Negative Rods Constitutional Constitutional: no acute distress Comments: Legally blind. *Routine HEENT Exam Head: Present normocephalic Eye: Present EOMI and PERRL ENT: Present mucous membranes moist *Routine Neck Exam Neck: Present supple; Absent lymphadenopathy *Routine Respiratory Exam Respiratory: Present CTA bilaterally *Routine Cardiovascular Exam Cardiovascular: Present RRR *Routine Abdominal Exam Abdominal: Present soft and normoactive bowel sounds; Absent tenderness *Routine Extremities Exam Extremities: Absent cyanosis, clubbing or edema Comments: Chronic venous stasis changes. *Routine Skin Exam Skin: Present warm; Absent rash *Routine Neurological Exam Neurological: Present alert and oriented X3 Results Data Completed and Pending Labs on day of discharge: Labs from last 24 hours 10/27/24 10/26/24 10/26/24 06:50 20:24 16:32 WBC 6.4 RBC 2.94 L Hgb 8.1 L Hct 26.5 L MCV 90.1 MCH 27.6 MCHC 30.6 L RDW 15.9 Plt Count 241 MPV 9.7 Neut % (Auto) 83.8 H Lymph % (Auto) 7.4 L [place] % (Auto) 8.3 Eos % (Auto) 0.0 L Baso % (Auto) 0.2 Neut # (Auto) 5.3 Lymph # (Auto) 0.5 L [place] # (Auto) 0.5 Eos # (Auto) 0.0 Baso # (Auto) 0.0 Total Counted 100 Neutrophils % (Manual) 85 H Lymphocytes % (Manual) 11 Monocytes % (Manual) 4 Eosinophils % (Manual) Platelet Estimate Normal RBC Morphology Polychromasia 1+ Macrocytosis 1+ D-Dimer VBG pH VBG pCO2 VBG pO2 VBG HCO3 VBG Total CO2 VBG O2 Saturation VBG Base Excess VBG Lactic Acid Sodium 141 Potassium 4.5 Chloride 110 H Carbon Dioxide 25 Anion Gap 10.5 BUN 36 H Creatinine 1.80 H Estimated Creat Clear 59 Estimated GFR 37 L Est GFR ( Amer) 45 L Glucose 98 D Calcium 9.0 Magnesium 2.4 H Total Bilirubin 0.2 AST 22 ALT 15 Alkaline Phosphatase 72 Troponin I < 0.01 NT-Pro-B Natriuret Pep Total Protein 7.0 Albumin 3.8 Globulin 3.2 Albumin/Globulin Ratio 1.2 Urine Color Yellow Urine Appearance Sl cloudy Urine pH 6.0 Ur Specific [place] 1.015 Urine Protein 2+ Urine Glucose (UA) Negative Urine Ketones Negative Urine Blood 3+ Urine Nitrate Negative Urine Bilirubin Negative Urine Urobilinogen 0.2 Ur Leukocyte Esterase 3+ A Urine RBC 10-20 Urine WBC Tntc A Ur Squamous Epith Cells 3-5 Urine Bacteria 4+ A Chlamy pneumoniae PCR Adenovirus (PCR) B. pertussis DNA (PCR) Coronavirus OC43 (PCR) Coronavirus HKU1 (PCR) Coronavirus 229E (PCR) SARS-CoV-2 (PCR) Coronavirus NL63 (PCR) Human Metapneumovir PCR Influenza A (H1) PCR Influ A (H1N1/) PCR Influenza A (H3) PCR Influenza Type A (PCR) Influenza Type B (PCR) M. pneumoniae (PCR) Parainfluenza 1 (PCR) Parainfluenza 2 (PCR) Parainfluenza 3 (PCR) Parainfluenza 4 (PCR) RSV (PCR) Entero/Rhino (PCR) 10/26/24 10/26/24 10/26/24 16:20 15:39 14:50 WBC RBC Hgb Hct MCV MCH MCHC RDW Plt Count MPV Neut % (Auto) Lymph % (Auto) [place] % (Auto) Eos % (Auto) Baso % (Auto) Neut # (Auto) Lymph # (Auto) [place] # (Auto) Eos # (Auto) Baso # (Auto) Total Counted Neutrophils % (Manual) Lymphocytes % (Manual) Monocytes % (Manual) Eosinophils % (Manual) Platelet Estimate RBC Morphology Polychromasia Macrocytosis D-Dimer VBG pH 7.48 H VBG pCO2 29.4 L VBG pO2 180.9 H VBG HCO3 21.6 L VBG Total CO2 22.5 L VBG O2 Saturation 99.3 H VBG Base Excess -1.8 VBG Lactic Acid 1.6 Sodium Potassium Chloride Carbon Dioxide Anion Gap BUN Creatinine Estimated Creat Clear Estimated GFR Est GFR ( Amer) Glucose Calcium Magnesium Total Bilirubin AST ALT Alkaline Phosphatase Troponin I 0.01 NT-Pro-B Natriuret Pep Total Protein Albumin Globulin Albumin/Globulin Ratio Urine Color Yellow Urine Appearance Clear Urine pH 6.0 Ur Specific [place] 1.020 Urine Protein 2+ A Urine Glucose (UA) Negative Urine Ketones Negative Urine Blood 3+ A Urine Nitrate Negative Urine Bilirubin Negative Urine Urobilinogen 0.2 Ur Leukocyte Esterase 2+ A Urine RBC 5-10 Urine WBC 20-50 Ur Squamous Epith Cells 3-5 Urine Bacteria 4+ Chlamy pneumoniae PCR Adenovirus (PCR) B. pertussis DNA (PCR) Coronavirus OC43 (PCR) Coronavirus HKU1 (PCR) Coronavirus 229E (PCR) SARS-CoV-2 (PCR) Coronavirus NL63 (PCR) Human Metapneumovir PCR Influenza A (H1) PCR Influ A () PCR Influenza A (H3) PCR Influenza Type A (PCR) Influenza Type B (PCR) M. pneumoniae (PCR) Parainfluenza 1 (PCR) Parainfluenza 2 (PCR) Parainfluenza 3 (PCR) Parainfluenza 4 (PCR) RSV (PCR) Entero/Rhino (PCR) 10/26/24 10/26/24 14:33 13:22 WBC 7.1 RBC 3.00 L Hgb 8.4 L Hct 27.0 L MCV 90.0 MCH 28.0 MCHC 31.1 L RDW 16.0 Plt Count 265 MPV 9.8 Neut % (Auto) 78.7 Lymph % (Auto) 6.9 L [place] % (Auto) 10.3 H Eos % (Auto) 3.0 Baso % (Auto) 0.7 Neut # (Auto) 5.6 Lymph # (Auto) 0.5 L [place] # (Auto) 0.7 Eos # (Auto) 0.2 Baso # (Auto) 0.1 Total Counted 100 Neutrophils % (Manual) 84 H Lymphocytes % (Manual) 13 Monocytes % (Manual) 2 Eosinophils % (Manual) 1 Platelet Estimate Normal RBC Morphology Normal Polychromasia Macrocytosis D-Dimer 1.17 H VBG pH VBG pCO2 VBG pO2 VBG HCO3 VBG Total CO2 VBG O2 Saturation VBG Base Excess VBG Lactic Acid Sodium 144 Potassium 4.1 Chloride 112 H Carbon Dioxide 24 Anion Gap 12.1 BUN 35 H Creatinine 1.90 H Estimated Creat Clear 52 Estimated GFR 35 L Est GFR ( Amer) 42 L Glucose 131 H Calcium 8.9 Magnesium Total Bilirubin 0.1 L AST 25 ALT 17 Alkaline Phosphatase 72 Troponin I 0.01 NT-Pro-B Natriuret Pep 5300 H Total Protein 7.1 Albumin 3.9 Globulin 3.2 Albumin/Globulin Ratio 1.2 Urine Color Urine Appearance Urine pH Ur Specific [place] Urine Protein Urine Glucose (UA) Urine Ketones Urine Blood Urine Nitrate Urine Bilirubin Urine Urobilinogen Ur Leukocyte Esterase Urine RBC Urine WBC Ur Squamous Epith Cells Urine Bacteria Chlamy pneumoniae PCR Not detected Adenovirus (PCR) Not detected B. pertussis DNA (PCR) Not detected Coronavirus OC43 (PCR) Not detected Coronavirus HKU1 (PCR) Not detected Coronavirus 229E (PCR) Not detected SARS-CoV-2 (PCR) Not detected Coronavirus NL63 (PCR) Not detected Human Metapneumovir PCR Not detected Influenza A (H1) PCR Not detected Influ A (H1N1/09) PCR Not detected Influenza A (H3) PCR Not detected Influenza Type A (PCR) Not detected Influenza Type B (PCR) Not detected M. pneumoniae (PCR) Not detected Parainfluenza 1 (PCR) Not detected Parainfluenza 2 (PCR) Not detected Parainfluenza 3 (PCR) Not detected Parainfluenza 4 (PCR) Not detected RSV (PCR) Not detected Entero/Rhino (PCR) Not detected Preliminary micro results at discharge 10/26/24 16:32 Urine Culture - Preliminary Urine,Catheterized Gram Negative Rods 10/26/24 15:58 Urine Culture - Preliminary Urine,Clean Catch Gram Negative Rods Meds Home Medications and Allergies Home Medications ?Medication ?Instructions ?Recorded ?Confirmed ?Type cetirizine 10 mg tablet 10 mg PO DAILY 06/09/23 10/27/24 History ferrous sulfate 325 mg (65 mg 325 mg PO DAILY 06/09/23 10/27/24 History iron) tablet isosorbide mononitrate 30 mg 30 mg PO DAILY 06/09/23 10/27/24 History tablet,extended release 24 hr oxcarbazepine 300 mg tablet 300 mg PO BID 06/09/23 10/27/24 History acetaminophen 500 mg capsule 500 mg PO Q4HP PRN Mild Pain 06/10/23 10/27/24 History (Scale Score 1-4) multivitamin 1 tab PO DAILY 06/10/23 10/27/24 History timolol maleate 0.5 % eye drops 1 drp ophthalmic (eye) DAILY 06/10/23 10/27/24 History escitalopram oxalate 5 mg tablet 5 mg PO DAILY 12/06/23 10/27/24 History (Lexapro) guaifenesin 100 mg/5 mL oral liquid 200 mg PO Q6HP PRN Cough 12/22/23 10/27/24 History lidocaine 4 % topical patch 1 patch topical DAILY 12/22/23 10/27/24 History (Lidocaine Pain Relief) ondansetron HCl 4 mg tablet 4 mg PO Q4HP PRN Nausea 12/22/23 10/27/24 History fluticasone fur. 100 mcg-umeclid 1 inh inhalation DAILY #60 ea 01/03/24 10/27/24 Rx 62.5 mcg-vilant 25 mcg inhalat.powder (Trelegy Ellipta) albuterol sulfate 90 mcg/actuation 1 puff inhalation Q4HP PRN 02/14/24 10/27/24 History aerosol inhaler (Ventolin HFA) Shortness Of Breath loperamide 2 mg capsule 2 mg PO Q6HP PRN Diarrhea 02/14/24 10/27/24 History white petrolatum-mineral oil 94 1 applic ophthalmic (eye) HS 02/14/24 10/27/24 History %-3 % eye ointment (Systane Nighttime) finasteride 5 mg tablet 5 mg PO DAILY #90 tabs 03/05/24 10/27/24 Rx tamsulosin 0.4 mg capsule 0.4 mg PO HS 90 days #90 caps 03/05/24 10/27/24 Rx aluminum hydrox-magnesium carb 95 30 ml PO Q6HP PRN Acid Reflux 04/24/24 10/27/24 History mg-358 mg/15 mL oral suspension (Acid Gone Antacid) apixaban 2.5 mg tablet (Eliquis) 2.5 mg PO BID #60 tabs 05/24/24 10/27/24 Rx gabapentin 100 mg capsule 100 mg PO BID #60 caps 06/08/24 10/27/24 Rx fluticasone propionate 50 2 spray intranasal DAILY 06/26/24 10/27/24 History mcg/actuation nasal spray,suspension (Flonase Allergy Relief) metoprolol succinate 100 mg 100 mg PO DAILY 06/26/24 10/27/24 History tablet,extended release 24 hr ipratropium 0.5 mg-albuterol 3 mg 3 ml inhalation QIDP PRN Shortness 09/04/24 10/27/24 History (2.5 mg base)/3 mL nebulization Of Breath Or Wheezing soln sennosides 8.6 mg tablet (Senna 17.2 mg PO HS 09/04/24 10/27/24 History Laxative) atorvastatin 40 mg tablet 40 mg PO HS 30 days #30 tabs 09/12/24 10/27/24 Rx clopidogrel 75 mg tablet 75 mg PO DAILY 30 days #30 tabs 09/12/24 10/27/24 Rx pantoprazole 40 mg tablet,delayed 40 mg PO HS 30 days #30 tabs 09/12/24 10/27/24 Rx release oxycodone 10 mg tablet 10 mg PO TID #90 tabs 10/08/24 10/27/24 Rx diclofenac sodium 1 % topical gel 1 g topical BID 10/27/24 10/27/24 History furosemide 20 mg tablet 20 mg PO DAILY 10/27/24 10/27/24 History New Prescriptions to Start Prescriptions: Allergies Allergy/AdvReac Type Severity Reaction Status Date / Time No Known Allergies Allergy Verified 10/23/24 14:38 Discharge Plan Disposition Patient Disposition: er [facility] Condition: Fair Discharge Order Discharge Orders: Discharge Order (Routine); Ordered 10/27/24 Ordered By: Bruno Rasmussen Follow up Plan Follow up with: Shaquille Alford MD [Staff Physician, Oncology] - 1 week Cayetano Cannon MD [Physician, Pulmonology] - 1 week Prescriptions/Medication Reconciliation: Continued Eliquis 2.5 mg tablet 2.5 mg PO BID Qty: 60 2RF Trelegy Ellipta 100-62.5-25 mcg blister with device 1 inh inhalation DAILY Qty: 60 2RF loperamide 2 mg capsule 2 mg PO Q6HP PRN (Reason: Diarrhea) Systane Nighttime 94-3 % ointment 1 applic ophthalmic (eye) HS finasteride 5 mg tablet 5 mg PO DAILY Qty: 90 3RF tamsulosin 0.4 mg capsule 0.4 mg PO HS 90 Days Qty: 90 1RF metoprolol succinate 100 mg tablet extended release 24 hr 100 mg PO DAILY fluticasone propionate [Flonase Allergy Relief] 50 mcg/actuation spray,suspension 2 spray intranasal DAILY Rx Instructions: administer into each nostril escitalopram oxalate [Lexapro] 5 mg tablet 5 mg PO DAILY sennosides [Senna Laxative] 8.6 mg tablet 17.2 mg PO HS ipratropium-albuterol 0.5 mg-3 mg(2.5 mg base)/3 mL solution for nebulization 3 ml inhalation QIDP PRN (Reason: Shortness Of Breath Or Wheezing) lidocaine [Lidocaine Pain Relief] 4 % adhesive patch,medicated 1 patch TOPICAL DAILY ondansetron HCl 4 mg Tablet 4 mg PO Q4HP PRN (Reason: Nausea) guaifenesin 100 mg/5 mL Liquid 200 mg PO Q6HP PRN (Reason: Cough) albuterol sulfate [Ventolin HFA] 90 mcg/actuation HFA aerosol inhaler 1 puff INHALATION Q4HP PRN (Reason: Shortness Of Breath) Acid Gone Antacid 95-358 mg/15 mL suspension 30 ml PO Q6HP PRN (Reason: Acid Reflux) gabapentin 100 mg capsule 100 mg PO BID Qty: 60 5RF oxycodone 10 mg tablet 10 mg PO TID Qty: 90 0RF cetirizine 10 mg tablet 10 mg PO DAILY isosorbide mononitrate 30 mg tablet extended release 24 hr 30 mg PO DAILY oxcarbazepine 300 mg tablet 300 mg PO BID ferrous sulfate 325 mg (65 mg iron) tablet 325 mg PO DAILY multivitamin Tablet 1 tab PO DAILY timolol maleate 0.5 % drops 1 drp ophthalmic (eye) DAILY acetaminophen 500 mg Capsule 500 mg PO Q4HP PRN (Reason: Mild Pain (Scale Score 1-4)) atorvastatin 40 mg Tablet 40 mg PO HS 30 Days Qty: 30 0RF clopidogrel 75 mg Tablet 75 mg PO DAILY 30 Days Qty: 30 0RF pantoprazole 40 mg Tablet,Delayed Release (Dr/Ec) 40 mg PO HS 30 Days Qty: 30 0RF furosemide 20 mg Tablet 20 mg PO DAILY diclofenac sodium 1 % gel 1 g TOPICAL BID Rx Instructions: TO RIGHT KNEE Problem Reconciliation Problems Reviewed?: Yes Patient Discharge Instructions Patient Instructions: DI for Urinary Tract Infection (UTI), Stop Light COPD, Stop Light Infection Print Language: Tajik Providers Primary Care Provider: Provider,Referral Admit Provider: Bruno Rasmussen Attending Provider: Bruno Rasmussen
--- NOTE | 2024-10-27 14:41 | PC.NURSE ---
Addendum entered by Tanya Armendariz RN 10/27/24 17:15: called ems for an update, unable to give an eta. Original Note: [facility]- ems stated it may be a while before arrival
[2024-10-27] MEDS: ERTAPENEM SODIUM 1 GM VIAL IM (15:28)
--- NOTE | 2024-10-29 08:18 | PC.NURSE ---
Urine culture results forwarded to hospitalist.
== END 2024-10-27 18:50 ==
LOC: ER 13:31 → 2ND 17:36
PROVIDERS: Admitting Provider Student in an Organized Health Care Education/Training Program; Emergency Provider Student in an Organized Health Care Education/Training Program; Visit Provider Student in an Organized Health Care Education/Training Program
DX: J96.21 Acute and chronic respiratory failure with hypoxia (principal); J44.1 Chronic obstructive pulmonary disease with (acute) exacerbation; I13.0 Hypertensive heart and chronic kidney disease with heart failure and stage 1 through stage 4 chronic kidney disease, or unspecified chronic kidney disease; I48.91 Unspecified atrial fibrillation; K21.9 Gastro-esophageal reflux disease without esophagitis; N18.9 Chronic kidney disease, unspecified; N40.0 Benign prostatic hyperplasia without lower urinary tract symptoms; I50.30 Unspecified diastolic (congestive) heart failure; J18.9 Pneumonia, unspecified organism; I27.20 Pulmonary hypertension, unspecified; C34.12 Malignant neoplasm of upper lobe, left bronchus or lung; Z85.46 Personal history of malignant neoplasm of prostate; Z95.5 Presence of coronary angioplasty implant and graft; Z83.6 Family history of other diseases of the respiratory system; Z87.891 Personal history of nicotine dependence; Z86.73 Personal history of transient ischemic attack (TIA), and cerebral infarction without residual deficits; Z79.01 Long term (current) use of anticoagulants; Z79.51 Long term (current) use of inhaled steroids; Z79.899 Other long term (current) drug therapy; Z79.02 Long term (current) use of antithrombotics/antiplatelets; Z79.891 Long term (current) use of opiate analgesic
CPT/HCPCS: 0223U; 36415; 51702; 71046; 71275; 80053; 81001; 82803; 83735; 83880; 84484; 85007; 85025; 85027; 85378; 87040; 87086; 87088; 87186; 89220; 93005; 94640; 96365; 96367; 96372; 96375; 99285; G0378; J0456; J0696; J1335; J1650; J1938; J2919; J3475; J7050; Q9967

== ENCOUNTER → 2024-11-02 12:46 | Outpatient (CLI) | payer MEDICARE, MEDICAID, SELFPAY ==
--- OUTSIDE RECORDS SUMMARY | 2024-10-16 07:56 | XMS_ITS | Encounter Summary ---
Author Organization [facility] Address [address] [place] [address] Care Team Providers Care Plastic Boat Buffer Name Role Phone Edi Chase MD Primary Care Provider [phone] Sam Sanchez MD Unavailable [phone] Cayetano Cannon MD Unavailable [phone] Reason for Referral * Other Medical (Routine) - Closed Specialty Diagnoses / Procedures Referred By José campbell Referred To Contact Neurology Diagnoses Dizziness on standing Procedures EEG Jyoti Tyler MD [address] [address] Phone: tel: fax: Referral ID Status Reason Start Date Expiration Date V isits Requested Visits Authorized [id number] Closed Specialty Services Required 08/27/2024 02/26/2026 1 1 Reason for Visit * Other Medical (Routine) - Closed Specialty Diagnoses / Procedures Referred By José campbell Referred To Contact Neurology Diagnoses Dizziness on standing Procedures EEG Jyoti Tyler MD [address] [address] Phone: tel: fax: Referral ID Status Reason Start Date Expiration Date V isits Requested Visits Authorized [id number] Closed Specialty Services Required 08/27/2024 02/26/2026 1 1 Encounter Details Date Type Department Care Team (Latest Contact Info) Description 10/16/2024 7:56 AM EDT - 10/16/2024 11:59 PM EDT Hospital Encounter [facility] Neurophysiology [address] [place] [address] Dizziness on standing Discharge Disposition: Home or [...] answer 12/26/2023 How often do you attend [facility] or hindu services? Patient unable to answer [...] Patient Health Questionnaire-2 Score 1 08/27/2024 [facility] - Occupational Stress Questionnaire Answer Date [...] tablet by mouth daily. 08/27/2024 HYDROcodone-aceta minophen ([place]) 5-325 MG tablet Take 1 tablet (5 [...] Description 11/16/2024 1:40 PM EDT Office Visit [facility] [address] [place] [address] Florentin Tillman MD [address] [place] [address] documented as of this encounter Procedures Procedure [...] After use, clean tip and replace cap. Xgogkxwmomk-Mftufumsj-Cjuohi (Trelegy Ellipta) 100-62.5-25 MCG/ACT aerosol powder Inhale [...] Take 1 tablet by mouth daily. HYDROcodone-acetaminophen ([place]) 5-325 MG tablet Take 1 tablet (5 [...] documented as of this encounter Care Teams Plastic Boat Buffer Relationship Specialty Start Date End Date Edi Chase MD [address] [place] [address] PCP - General 03/14/20 Sam Sanchez MD [address] [place] [address] Consulting Physician Pulmonary Disease 08/11/22 Cayetano Cannon MD 1210 [facility] [address] [place] [address] Referring Physician 08/11/22 documented as of this encounter
--- OUTSIDE RECORDS SUMMARY | 2024-11-02 12:51 | XMS_ITS | Encounter Summary ---
Author Organization [facility] Address [address] [place] [address] Care Team Providers Care Delivery Professional Name Role Phone Edi Chase MD Primary Care Provider [phone] Sam Sanchez MD Unavailable [phone] Cayetano Cannon MD Unavailable [phone] Encounter Details Date Type Department Care Team (Late st Contact Info) Description 12/14/2023 Orders Only External Location [address] [place] [id number] Cedric Hinton MD [address] [place] [id number] Social History Tobacco Use Types Packs/Day Years [...] Description 11/16/2024 1:40 PM EDT Office Visit [facility] [address] [place] [address] Florentin Tillman MD [address] [place] [address] documented as of this encounter [...] documented as of this encounter Care Teams Delivery Professional Relationship Specialty Start Date End Date Edi Chase MD [address] [place] [address] PCP - General 03/14/20 Sam Sanchez MD [address] [place] [address] Consulting Physician Pulmonary Disease 08/11/22 Cayetano Cannon MD [address] [place] [address] Referring Physician 08/11/22 documented as of this encounter
--- OUTSIDE RECORDS SUMMARY | 2024-11-02 12:51 | XMS_ITS | Encounter Summary ---
Author Organization [facility] Address [address] [place] [address] Care Team Providers Care Commercial Credit Specialist Name Role Phone Edi Chase MD Primary Care Provider [phone] Sam Sanchez MD Unavailable Cayetano Cannon MD Unavailable [phone] Encounter Details Date Type Department Care [...] any clubs o r organizations such as zoroastrian groups, unions, fraternal or athletic groups, or [...] Recorded Patient Health Questionnaire-2 Score 1 [facility] - Occupational Stress Questionnaire Answer [...] Description 11/16/2024 1:40 PM EDT Office Visit [facility] [address] [place] [address] Florentin Tillman MD [address] [place] [address] documented as of this encounter [...] documented as of this encounter Care Teams Commercial Credit Specialist Relationship Specialty Start Date End Date Edi Chase MD [address] [facility] [place] [address] PCP - General 03/14/20 Sam Sanchez MD [address] [place] [address] Consulting Physician Pulmonary Disease 08/11/22 Cayetano Cannon MD [address] [place] [address] Referring Physician 08/11/22 documented as of this encounter
--- OUTSIDE RECORDS SUMMARY | 2024-11-02 12:51 | XMS_ITS | Encounter Summary ---
Author Organization [facility] Address [address] [place] [address] Care Team Providers Care Cnc Supervisor Name Role Phone Edi Chase MD Primary Care Provider [phone] Sam Sanchez MD Unavailable Cayetano Cannon MD Unavailable [phone] Encounter Details Date Type Department Care Team (Late st Contact Info) Description 07/08/2022 Orders Only External Location [address] [place] [address] Armani Lopez [place] [address] [place] [address] [place] [address] Social History Tobacco Use Types [...] Description 11/16/2024 1:40 PM EDT Office Visit [address] [place] [address] Florentin Tillman MD [address] [place] [address] documented as of this encounter Procedures Procedure [...] documented as of this encounter Care Teams Cnc Supervisor Relationship Specialty Start Date End Date Edi Chase MD [address] [place] [address] PCP - General 03/14/20 Sam Sanchez MD [address] [place] [id number] Consulting Physician Pulmonary Disease 08/11/22 Cayetano Cannon MD [address] [place] [address] Referring Physician 08/11/22 documented as of this encounter
--- OUTSIDE RECORDS SUMMARY | 2024-11-02 12:51 | XMS_ITS | Clinical Summary ---
Author Organization Healthcare Address [address] [place] [address] Care Team Providers Care Dust Box Tender Name Role Phone Edi Chase MD Primary Care Provider [phone] Sam Sanchez MD Unavailable [phone] Cayetano Cannon MD Unavailable [phone] Allergies No known active allergies Medications [...] (one) time each day. Active HYDROcodone-acet aminophen (Rexford) 5-325 MG tablet Take 1 tablet (5 [...] Date Type Department Care Team Description 10/26/2024 Travel 10/16/2024 7:56 AM EDT - 10/16/2024 11:59 PM EDT Hospital Encounter [facility] [address] [place] [address] Dizziness on standing Discharge Disposition: Home or Self Care 10/16/2024 Travel 08/27/2024 1:00 PM EDT Consult [place] [facility] [address], [address] [place] [address] Cuong Catherine MD Dizziness on standing (Primary Dx); Nonintractable episodic headache, unspecified headache type; Cerebrovascular accident (CVA), unspecified mechanism (CMS/HCC) 08/27/2024 Travel 08/22/2024 Telephone [place] [facility] [address], [address] [place] [address] Cuong Catherine MD from Last [...] answer 12/26/2023 How often do you attend [facility] or yazdanism services? Patient unable to answer [...] Recorded Patient Health Questionnaire-2 Score 1 08/27/2024 [facility] - Occupational Stress Questionnaire Answer Date Recorded [...] Recorded In the past 12 months has [employer], [employer], oil, or water [employer] threatened to shut off services in your [...] 10/26/2024 12:54 PM EDT Plan of Treatment Upcoming Encounters Date Type Department Care Team (Late st Contact Info) Description 11/16/2024 1:40 PM EDT Office Visit [facility] [address] [place] [address] Florentin Tillman MD [address] [place] [address] Health Maintenance Due Date Last Done Comments [facility]-Medicare Annual Wellness (AWV) 1950 [facility]-/Child/Adol SDOH Screenings 1950 [facility]-DTaP,Tdap,and Td Vaccines (1 - Tdap) 08/31/1967 [facility]-Pneumococcal Vaccine: 50+ Years (1 of 2 - PCV) 08/31/1967 [facility]-Zoster Vaccines (1 of 2) 08/31/1967 [id number] Vaccine (3 - Pfizer risk series) 05/10/2020 [...] After use, clean tip and replace cap. Judkhiclvhu-Uumtqphwp-Lhrxpi (Trelegy Ellipta) 100-62.5-25 MCG/ACT aerosol powder Inhale [...] Take 1 tablet by mouth daily. HYDROcodone-acetaminophen (Rexford) 5-325 MG tablet Take 1 tablet (5 [...] Antibody Negative Negative 12/23/2023 6:55 PM EDT [facility] Blood Venous blood specimen / Unknown Venipuncture / Unknown 12/23/2023 5:39 PM EDT 12/23/2023 6:04 PM EDT us Med Lyn MD LAB BLOOD ORDERABLES Final Result [facility] [address] [place] [address] * (ABNORMAL) Hemoglobin A1c (12/23/2023 5:39 PM EDT) Hemoglobin A1c 6.3(H) <5.7 % 12/24/2023 12:22 AM EDT [facility] Blood Venous blood specimen / Unknown Venipuncture / Unknown 12/23/2023 5:39 PM EDT 12/23/2023 5:55 PM EDT Narrative [facility] - 12/24/2023 12:22 AM EDT HA1C Interpretive Data: Diagnosis of Diabetes: Diabetic > or = 6.5% Pre-diabetic 5.7 to 6.4% Non-diabetic < or = 5.6% Glycemic Targets for Type I and Type II Diabetics: Non- Adults <7.0% Adults <6.0% Children and Adolescents <7.5% Source: [place] [employer]. Standards of medical care in diabetes,2017. Diabetes Care.2017:40 (suppl 1):S1-S135. HbA1c assay performed by an ion-exchange chromatography method that is certified traceable to the DCCT. Socorro Mauro APRN LAB BLOOD ORDERABLES Final R esult 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 Yes Care Teams Dust Box Tender Relationship Specialty Start Date End Date Edi Chase MD [address] [place] [address] PCP - General 03/14/20 Sam Sanchez MD [address] [place] [address] Consulting Physician Pulmonary Disease 08/11/22 Cayetano Cannon MD [address] [place] [address] Referring Physician 08/11/22
--- OUTSIDE RECORDS SUMMARY | 2024-11-02 12:51 | XMS_ITS | Encounter Summary ---
Author Organization Healthcare Address [address] [place] [address] Care Team Providers Care Commercial Lines Underwriter Name Role Phone Edi Chase MD Primary Care Provider [phone] Sam Sanchez MD Unavailable [phone] Cayetano Cannon MD Unavailable [phone] Encounter Details Date Type Department Care Team ([facility] st Contact Info) Description 01/05/2024 Orders Only External Location [address] [place] [address] Cedric Hinton MD [address] [place] [address] Social History Tobacco Use Types Packs/Day Years [...] often do you attend chur ch or adventism services? Patient unable to answer 12/26/2023 Do [...] unable to answer 12/26/2023 [facility] - Occupational Stress Questionnaire Answer Date [...] Description 11/16/2024 1:40 PM EDT Office Visit [place] [id number] [facility] [address] [place] [address] Florentin Tillman MD [address] [place] [address] documented as of this encounter Procedures [...] as of this encounter Care Teams Commercial Lines Underwriter Relationship Specialty Start Date End Date Edi Chase MD [address] [place] [address] PCP - General 03/14/20 Sam Sanchez MD [address] [place] [address] Consulting Physician Pulmonary Disease 08/11/22 Cayetano Cannon MD [address] [facility] [address] [place], [place] [address] Referring Physician 08/11/22 documented as of this encounter
--- OUTSIDE RECORDS SUMMARY | 2024-11-02 12:51 | XMS_ITS | Encounter Summary ---
Author Organization [facility] Address [address] [place] [address] Care Team Providers Care Flute Grinder Name Role Phone Edi Chase MD Primary Care Provider Sam Sanchez MD Unavailable [phone] Cayetano Cannon MD Unavailable [phone] Encounter Details Date Type Department Care Team (Late st Contact Info) Description 09/30/2022 Lab Requisition [facility] [address] [place] [address] Lyn Santana MD [address] [place] [address] Malignant neoplasm of upper lobe, [...] Description 11/16/2024 1:40 PM EDT Office Visit [facility] [address] [place] [address] Florentin Tillman MD [address] [place] [address] documented as of this encounter Procedures Procedure Name Priority Date/Time Associated Diagnosis Comments AP MISCELLANEOUS LAB TEST (SO) Routine 09/08/2022 11:51 AM EDT Malignant neoplasm of upper lobe, left bronchus or lung (CMS/HCC) documented in this encounter Results * AP Miscellaneous Lab Test (09/08/2022 11:51 AM EDT) Test name [place] Profile 10/15/2022 7:42 AM EDT [facility] Comment:[id number] Test Result see scan 10/15/2022 7:42 AM EDT [facility] See Scanned Result 10/15/2022 7:42 AM EDT [facility] Tissue 09/08/2022 11:5 1 AM EDT 09/30/2022 2:24 PM EDT Lyn Santana MD LAB REF LAB BLOOD AND FLUID ORD Final Result [facility] documented in this encounter Visit [...] documented as of this encounter Care Teams Flute Grinder Relationship Specialty Start Date End Date Edi Chase MD [address] [place] [address] PCP - General 03/14/20 Sam Sanchez MD [address] [place] [address] Consulting Physician Pulmonary Disease 08/11/22 Cayetano Cannon MD [address] [place] [address] Referring Physician 08/11/22 documented as of this encounter
--- OUTSIDE RECORDS SUMMARY | 2024-11-02 12:51 | XMS_ITS | Encounter Summary ---
Author Organization Healthcare Address [address] [place] [address] Care Team Providers Care Marine Steward Name Role Phone Edi Chase MD Primary Care Provider [phone] Sam Sanchez MD Unavailable [phone] Cayetano Cannon MD Unavailable [phone] Encounter Details Date Type Department Care Team (Late st Contact Info) Description 12/26/2023 Lab Requisition [facility] [address] [place] [address] Amado Horton MD [address] [facility] [address] [place] [address] Encounter for general adult medical [...] any clubs o r organizations such as jew groups, unions, fraternal or athletic groups, or [...] one occasion? Patient unable to answer 12/26/2023 [facility] - Occupational Stress Questionnaire Answer Date [...] to answer 12/26/2023 3:21 PM MIMAT Nicole aNir RN Q2: How many drinks containing alcohol [...] Description 11/16/2024 1:40 PM EDT Office Visit [facility] [address] [place] [address] Florentin Tillman MD [address] [place] [address] documented as of this encounter Procedures Procedure [...] Final Result [facility] [address] [place] [address] documented in this encounter Visit Diagnoses Diagnosis [...] documented as of this encounter Care Teams Marine Steward Relationship Specialty Start Date End Date Edi Chase MD [address] [place] [address] PCP - General 03/14/20 Sam Sanchez MD [address] [place] [address] Consulting Physician Pulmonary Disease 08/11/22 Cayetano Cannon MD [address] [facility] [address] [place] [address] Referring Physician 08/11/22 documented as of this encounter
--- OUTSIDE RECORDS SUMMARY | 2024-11-02 12:51 | XMS_ITS | Encounter Summary ---
Author Organization Healthcare Address [address] [place] [address] Care Team Providers Care Bulk Plant Operator Name Role Phone Edi Chase MD Primary Care Provider [phone] Sam Sanchez MD Unavailable [phone] Cayetano Cannon MD Unavailable [phone] Encounter Details Date Type Department Care Team (Late st Contact Info) Description 12/12/2023 Orders Only External Location [address] [place] [address] Provider, External Social History Tobacco Use Types [...] Department Care Team (Late Contact Info) Description 11/16/2024 1:40 PM EDT Office Visit [facility] [address] [place] [address] Florentin Tillman MD [address] [place] [address] documented as of this encounter Procedures Procedure [...] documented as of this encounter Care Teams Bulk Plant Operator Relationship Specialty Start Date End Date Edi Chase MD [address] [facility] [place] [address] PCP - General 03/14/20 Sam Sanchez MD [address] [place] [address] Consulting Physician Pulmonary Disease 08/11/22 Cayetano Cannon MD [address] [facility] [address] [place] [address] Referring Physician 08/11/22 documented as of this encounter
--- OUTSIDE RECORDS SUMMARY | 2024-11-02 12:51 | XMS_ITS | Clinical Summary ---
Author Organization [facility] Address [address] [place] [address] Phone Care Team Providers Care Recycling Crew Supervisor Name Role Phone Unavailable Primary Care Provider [...] this topic Medical Devices Implanted Type Area Parking Analyst Device Identifier Shelf Expiration Date Model / Serial / Lot Stent Coronary Vision Rx 3.50mm X 18mm - [id number] Implanted:Qty: 1 on 03/16/2010 at [employer] Explanted:at [employer] (Quantity not on file) Stent-Vis ion [facility]AD [facility] LAB:VASC DEV [id number] / / [id number] Insurance [place] A [place] B [place] [address] [place] [address] [place]
--- OUTSIDE RECORDS SUMMARY | 2024-11-02 12:52 | XMS_ITS | Encounter Summary ---
Author Organization [facility] Address [address] [place] [address] Care Team Providers Care Cisco Certified Internetwork Expert Name Role Phone Edi Chase MD Primary Care Provider [phone] Sam Sanchez MD Unavailable [phone] Cayetano Cannon MD Unavailable [phone] Encounter Details Date Type Department Care [...] any clubs o r organizations such as zoroastrianism groups, unions, fraternal or athletic groups, or [...] Health Questionnaire-2 Score 1 08/27/2024 [facility] - Occupational Stress Questionnaire Answer Date Recorded [...] [facility] [address] [place] [address] Florentin Tillman MD [address] [place] [address] documented as of this encounter [...] documented as of this encounter Care Teams Cisco Certified Internetwork Expert Relationship Specialty Start Date End Date Edi Chase MD [address] [facility] [place] [address] PCP - General 03/14/20 Sam Sanchez MD [address] [place] [address] Consulting Physician Pulmonary Disease 08/11/22 Cayetano Cannon MD [address] [place] [address] Referring Physician 08/11/22 documented as of this encounter
== END ==
LOC: SL 12:48
PROVIDERS: PCP Family Medicine; Visit Provider Internal Medicine Pulmonary Disease
DX: G47.33 Obstructive sleep apnea (adult) (pediatric) (principal)
CPT/HCPCS: 94762

== ENCOUNTER 2024-11-06 11:08 | Outpatient (CLI) | payer MEDICARE, MEDICAID, SELFPAY ==
--- OUTSIDE RECORDS SUMMARY | 2024-10-16 07:56 | XMS_ITS | Encounter Summary ---
Author Organization [facility] Address [address] [place] [address] Care Team Providers Care Plate And Frame Filter Operator Name Role Phone Edi Chase MD Primary Care Provider [phone] Sam Sanchez MD Unavailable [phone] Cayetano Cannon MD Unavailable [phone] Reason for Referral * Other Medical (Routine) - Closed Specialty Diagnoses / Procedures Referred By José campbell Referred To Contact Neurology Diagnoses Dizziness on standing Procedures EEG Jyoti Tyler MD [address] [address] Phone: tel: fax: Referral ID Status Reason Start Date Expiration Date V isits Requested Visits Authorized [id number] Closed Specialty Services Required 08/27/2024 02/26/2026 1 1 Reason for Visit * Other Medical (Routine) - Closed Specialty Diagnoses / Procedures Referred By José campbell Referred To Contact Neurology Diagnoses Dizziness on standing Procedures EEG Jyoti Tyler MD [address] [address] Phone: tel: fax: Referral ID Status Reason Start Date Expiration Date V isits Requested Visits Authorized [id number] Closed Specialty Services Required 08/27/2024 02/26/2026 1 1 Encounter Details Date Type Department Care Team (Latest Contact Info) Description 10/16/2024 7:56 AM EDT - 10/16/2024 11:59 PM EDT Hospital Encounter [facility] Neuro[facility]iology [address] [place] [address] Dizziness on standing Discharge Disposition: Home or [...] answer 12/26/2023 How often do you attend [facility] or spiritism services? Patient unable to answer [...] Recorded Patient Health Questionnaire-2 Score 1 08/27/2024 [facility] - Occupational Stress Questionnaire [...] tablet by mouth daily. 08/27/2024 HYDROcodone-aceta minophen ([place]) 5-325 MG tablet Take 1 tablet (5 [...] Care Team (Late st Contact Info) Description 11/16/2024 1:40 PM EDT Office Visit [facility] [address] [place] [address] Florentin Tillman MD [address] [place] [address] documented as of this encounter Procedures Procedure [...] After use, clean tip and replace cap. Hbixxoupbhq-Xrwvtofke-Ubljut (Trelegy Ellipta) 100-62.5-25 MCG/ACT aerosol powder Inhale [...] Take 1 tablet by mouth daily. HYDROcodone-acetaminophen ([place]) 5-325 MG tablet Take 1 tablet (5 [...] documented as of this encounter Care Teams Plate And Frame Filter Operator Relationship Specialty Start Date End Date Edi Chase MD [address] [place] [address] PCP - General 03/14/20 Sam Sanchez MD [address] [place] [address] Consulting Physician Pulmonary Disease 08/11/22 Cayetano Cannon MD 1210 [facility] [address] [place] [address] Referring Physician 08/11/22 documented as of this encounter
[2024-11-06] MEDS: VITAMIN B-12 1,000 MCG 1ML VIAL 1000 MCG (11:15)
[2024-11-06] MEDS: PROCHLORPERAZINE 10MG TABLET 10 MG PO (11:15)
--- OUTSIDE RECORDS SUMMARY | 2024-11-06 11:26 | XMS_ITS | Encounter Summary ---
Author Organization Healthcare Address [address] [place] [address] Care Team Providers Care Manager Hardware Name Role Phone Edi Chase MD Primary Care Provider [phone] Sam Sanchez MD Unavailable [phone] Cayetano Cannon MD Unavailable [phone] Encounter Details Date Type Department Care Team ([facility] st Contact Info) Description 01/05/2024 Orders Only External Location [address] [place] [address] Cedric Hinton MD [address] [place] [address] Social History Tobacco Use Types Packs/Day Years [...] often do you attend chur ch or moravian services? Patient unable to answer 12/26/2023 Do [...] Patient unable to answer 12/26/2023 [facility] - Occupational Stress Questionnaire Answer Date [...] Description 11/16/2024 1:40 PM EDT Office Visit [place] [address] [facility] [address] [place] [address] Florentin Tillman MD [address] [place] [address] documented as of this encounter Procedures [...] as of this encounter Care Teams Manager Hardware Relationship Specialty Start Date End Date Edi Chase MD [address] [place] [address] PCP - General 03/14/20 Sam Sanchez MD [address] [place] [address] Consulting Physician Pulmonary Disease 08/11/22 Cayetano Cannon MD [address] [facility] [address] [place], [place] [address] Referring Physician 08/11/22 documented as of this encounter
--- OUTSIDE RECORDS SUMMARY | 2024-11-06 11:26 | XMS_ITS | Encounter Summary ---
Author Organization Healthcare Address [address] [place] [address] Care Team Providers Care Crude Oil Treater Name Role Phone Edi Chase MD Primary Care Provider [phone] Sam Sanchez MD Unavailable [phone] Cayetano Cannon MD Unavailable [phone] Encounter Details Date Type Department Care Team (Late st Contact Info) Description 12/12/2023 Orders Only External Location [address] [place] [address] Provider, External Social History Tobacco Use Types [...] Description 11/16/2024 1:40 PM EDT [facility] [address] [place] [address] Florentin Tillman MD [address] [place] [address] documented as of this encounter Procedures Procedure [...] documented as of this encounter Care Teams Crude Oil Treater Relationship Specialty Start Date End Date Edi Chase MD [address] [facility] [place] [address] PCP - General 03/14/20 Sam Sanchez MD [address] [place] [address] Consulting Physician Pulmonary Disease 08/11/22 Cayetano Cannon MD [address] [facility] [address] [place] [address] Referring Physician 08/11/22 documented as of this encounter
--- OUTSIDE RECORDS SUMMARY | 2024-11-06 11:26 | XMS_ITS | Encounter Summary ---
Author Organization [facility] Address [address] [place] [address] Care Team Providers Care Pc Technician Name Role Phone Edi Chase MD Primary Care Provider [phone] Sam Sanchez MD Unavailable [phone] Cayetano Cannon MD Unavailable [phone] Encounter Details Date Type Department Care Team (Late st Contact Info) Description 07/08/2022 Orders Only External Location [address] [place] [address] Armani Lopez [place], [place] [facility] [address] [place] [address] Social History Tobacco Use Types [...] Description 11/16/2024 1:40 PM EDT Office Visit [address] [place] [address] Flroentin Tillman MD [address] [place] [address] documented as of this encounter Procedures Procedure [...] documented as of this encounter Care Teams Pc Technician Relationship Specialty Start Date End Date Edi Chase MD [address] [place] [address] PCP - General 03/14/20 Sam Sanchez MD [address] [place] [address] Consulting Physician Pulmonary Disease 08/11/22 Cayetano Cannon MD [address] [place] [address] Referring Physician 08/11/22 documented as of this encounter
--- OUTSIDE RECORDS SUMMARY | 2024-11-06 11:26 | XMS_ITS | Encounter Summary ---
Author Organization [facility] Address [address] [place] [address] Care Team Providers Care Senior Net Programmer Name Role Phone Edi Chase MD Primary Care Provider [phone] Sam Sanchez MD Unavailable [phone] Cayetano Cannon MD Unavailable [phone] Encounter Details Date Type Department Care Team (Late st Contact Info) Description 09/30/2022 Lab Requisition [facility] [address] [place] [address] Lyn Santana MD [address] [place] [address] Malignant neoplasm of upper lobe, [...] Description 11/16/2024 1:40 PM EDT Office Visit [facility] [address] [place] [address] Florentin Tillman MD [address] [place] [address] documented as of this encounter Procedures Procedure Name Priority Date/Time Associated Diagnosis Comments AP MISCELLANEOUS LAB TEST (SO) Routine 09/08/2022 11:51 AM EDT Malignant neoplasm of upper lobe, left bronchus or lung (CMS/HCC) documented in this encounter Results * AP Miscellaneous Lab Test (09/08/2022 11:51 AM EDT) Test name AR Profile 10/15/2022 7:42 AM EDT [facility] Comment:[id number] Test Result see scan 10/15/2022 7:42 AM EDT [facility] See Scanned Result 10/15/2022 7:42 AM EDT [facility] Tissue 09/08/2022 11:5 1 AM EDT 09/30/2022 2:24 PM EDT Lyn Santana MD LAB REF LAB BLOOD AND FLUID ORD Final Result [facility] documented in this encounter Visit Diagnoses [...] as of this encounter Care Teams Senior Net Programmer Relationship Specialty Start Date End Date Edi Chase MD [address] [place] [address] PCP - General 03/14/20 Sam Sanchez MD [address] [place] [address] Consulting Physician Pulmonary Disease 08/11/22 Cayetano Cannon MD [address] [place] [address] Referring Physician 08/11/22 documented as of this encounter
--- OUTSIDE RECORDS SUMMARY | 2024-11-06 11:26 | XMS_ITS | Encounter Summary ---
Author Organization Healthcare Address [address] [place] [address] Care Team Providers Care Lace Machine Operator Name Role Phone Edi Chase MD Primary Care Provider Sam Sanchez MD Unavailable [phone] Cayetano Cannon MD Unavailable [phone] Encounter Details Date Type Department Care Team (Late st Contact Info) Description 12/26/2023 Lab Requisition [facility] [address] [place] [address] Amado Horton MD [address] [facility] [address] [place] [address] Encounter for general adult medical [...] How often do you attend chur or cheondoism services? Patient unable to answer 12/26/2023 Do [...] Patient unable to answer 12/26/[address] [facility] [address] [facility] - Occupational Stress [...] Description 11/16/2024 1:40 PM EDT Office Visit [facility] [address] [place] [address] Florentin Tillman MD [address] [place] [address] documented as of this encounter Procedures Procedure Name Priority Date/Time Associated Diagnosis Comments MULTI DRUG RESISTANCE TEST Routine 12/26/2023 2:00 PM EDT Encounter for general adult medical examination without abnormal findings documented in this encounter Results * Multi Drug Resistance Test (12/26/2023 2:00 PM EDT) Culture No growth at day 1 12/27/2023 12:24 PM EDT [facility] Swab (Nares and Brenda Rectal) 12/26/2023 2:00 PM EDT 12/26/2023 3:15 PM EDT us Amado Horton MD LAB MICROBIOLOGY - GEN ERAL ORDERABLES Final Result [facility] [address] [place] [address] documented in this encounter Visit Diagnoses Diagnosis [...] documented as of this encounter Care Teams Lace Machine Operator Relationship Specialty Start Date End Date Edi Chase MD [address] [place] [address] PCP - General 03/14/20 Sam Sanchez MD [address] [place] [address] Consulting Physician Pulmonary Disease 08/11/22 Cayetano Cannon MD 12[address] [facility] [address] [place] [address] Referring Physician 08/11/22 documented as of this encounter
--- OUTSIDE RECORDS SUMMARY | 2024-11-06 11:26 | XMS_ITS | Encounter Summary ---
Author Organization [facility] Address [address] [place] [address] Care Team Providers Care Driller And Reamer Name Role Phone Edi Chase MD Primary Care Provider [phone] Sam Sanchez MD Unavailable [phone] Cayetano Cannon MD Unavailable [phone] Encounter Details Date Type Department Care Team (Late st Contact Info) Description 12/14/2023 Orders Only External Location [address] [place] [address] Cedric Hinton MD [address] [place] [id number] Social History Tobacco Use Types Packs/Day Years [...] Description 11/16/2024 1:40 PM EDT Office Visit [facility] [address] [place] [address] Florentin Tillman MD [address] [place] [address] documented as of this encounter [...] documented as of this encounter Care Teams Driller And Reamer Relationship Specialty Start Date End Date Edi Chase MD [address] [place] [address] PCP - General 03/14/20 Sam Sanchez MD [address] [place] [address] Consulting Physician Pulmonary Disease 08/11/22 Cayetano Cannon MD [address] [place] [address] Referring Physician 08/11/22 documented as of this encounter
--- OUTSIDE RECORDS SUMMARY | 2024-11-06 11:27 | XMS_ITS | Clinical Summary ---
Author Organization Healthcare Address [address] [place] [address] Care Team Providers Care Senior Quality Control Inspector Name Role Phone Edi Chase MD Primary Care Provider [phone] Sam Sanchez MD Unavailable [phone] Cayetano Cannon MD Unavailable [phone] Allergies No known active allergies Medications [...] (one) time each day. Active HYDROcodone-acet aminophen ([place]) 5-325 MG tablet Take 1 tablet (5 [...] [address] [place] [address] Dizziness on standing Discharge Disposition: Home or Self Care 10/16/2024 Travel 08/27/2024 1:00 PM EDT Consult [place] [facility] [address], [address] [place] [address] Cuong Catherine MD Dizziness on standing (Primary Dx); Nonintractable episodic headache, unspecified headache type; Cerebrovascular accident (CVA), unspecified mechanism (CMS/HCC) 08/27/2024 Travel 08/22/2024 Telephone [place] [facility] [address], [address] [place] [address] Cuong Catherine MD from Last [...] How often do you attend [facility] or advent services? Patient unable to answer 12/26/2023 Do [...] Questionnaire-2 Score 1 08/27/2024 [facility] - Occupational [...] Recorded In the past 12 months has [employer], [employer], oil, or water [employer] threatened to shut off services in your [...] Description 11/16/2024 1:40 PM EDT Office Visit [facility] [address] [place] [address] Florentin Tillman MD [address] [place] [address] Health Maintenance Due Date Last Done Comments [facility]-Medicare Annual Wellness (AWV) 1950 [facility]-/Child/Adol SDOH Screenings 1950 [facility]-DTaP,Tdap,and Td Vaccines (1 - Tdap) 08/31/1967 [facility]-Pneumococcal Vaccine: 50+ Years (1 of 2 - PCV) 08/31/1967 [facility]-Zoster Vaccines (1 of 2) 08/31/1967 [facility]-SYIIK-70 Vaccine (3 - Pfizer risk series) 05/10/2020 [...] After use, clean tip and replace cap. Vfbaxswxgag-Kjkrmchic-Xdfoul (Trelegy Ellipta) 100-62.5-25 MCG/ACT aerosol powder Inhale [...] Take 1 tablet by mouth daily. HYDROcodone-acetaminophen ([place]) 5-325 MG tablet Take 1 tablet (5 [...] Antibody Negative Negative 12/23/2023 6:55 PM EDT [facility] Blood Venous blood specimen / Unknown Venipuncture / Unknown 12/23/2023 5:39 PM EDT 12/23/2023 6:04 PM EDT us Med Lyn MD LAB BLOOD ORDERABLES Final Result [facility] [address] [place] [address] * (ABNORMAL) Hemoglobin A1c (12/23/2023 5:39 PM EDT) Hemoglobin A1c 6.3(H) <5.7 % 12/24/2023 12:22 AM EDT [facility] Blood Venous blood specimen / Unknown Venipuncture / Unknown 12/23/2023 5:39 PM EDT 12/23/2023 5:55 PM EDT Narrative [facility] - 12/24/2023 12:22 AM EDT HA1C Interpretive Data: Diagnosis of Diabetes: Diabetic > or = 6.5% Pre-diabetic 5.7 to 6.4% Non-diabetic < or = 5.6% Glycemic Targets for Type I and Type II Diabetics: Non- Adults <7.0% Adults <6.0% Children and Adolescents <7.5% Source: [place] [employer]. Standards of medical care in diabetes,2017. Diabetes Care.2017:40 (suppl 1):S1-S135. HbA1c assay performed by an ion-exchange chromatography method that is certified traceable to the DCCT. Socorro Mauro APRN LAB BLOOD ORDERABLES Final R esult [facility] [address] [place] [address] from Last 3 Months or Most Recently [...] has decision-making capacity? Yes Care Teams Senior Quality Control Inspector Relationship Specialty Start Date End Date Edi Chase MD [address] [place] [address] PCP - General 03/14/20 Sam Sanchez MD [address] [place] [address] Consulting Physician Pulmonary Disease 08/11/22 Cayetano Cannon MD [address] [place] [address] Referring Physician 08/11/22
--- OUTSIDE RECORDS SUMMARY | 2024-11-06 11:27 | XMS_ITS | Encounter Summary ---
Author Organization [facility] Address [address] [place] [address] Care Team Providers Care Trust Operations Assistant Name Role Phone Edi Chase MD Primary Care Provider [phone] Sam Sanchez MD Unavailable [phone] Cayetano Cannon MD Unavailable [phone] Encounter Details Date Type Department Care [...] How often do you attend chur or jew services? Patient unable to answer 12/26/2023 Do you belong to any clubs o r organizations such as scientologist groups, unions, fraternal or athletic groups, or [...] Health Questionnaire-2 Score 1 08/27/2024 [facility] - Occupational Stress Questionnaire Answer Date Recorded [...] Description 11/16/2024 1:40 PM EDT Office Visit [facility] [address] [place] [address] Florentin Tillman MD [address] [place] [address] documented as of this encounter [...] documented as of this encounter Care Teams Trust Operations Assistant Relationship Specialty Start Date End Date Edi Chase MD [address] [place] [address] PCP - General 03/14/20 Sam Sanchez MD [address] [place] [address] Consulting Physician Pulmonary Disease 08/11/22 Cayetano Cannon MD [address] [place] [address] Referring Physician 08/11/22 documented as of this encounter
--- OUTSIDE RECORDS SUMMARY | 2024-11-06 11:27 | XMS_ITS | Clinical Summary ---
Author Organization [facility] Address [address] [address] Phone Care Team Providers Care Metal Burrer Name Role Phone Unavailable Primary Care Provider [...] this topic Medical Devices Implanted Type Area Production Manufacturing Worker Device Identifier Shelf Expiration Date Model / Serial / Lot Stent Coronary Vision Rx 3.50mm X 18mm - [id number] Implanted:Qty: 1 on 03/16/2010 at [facility]PLI[employer] OFF[facility] Explanted:at [facility] [employer] COMPLI[employer] OFFIC[facility] (Quantity not on file) Stent-Vis ion [facility] LAB:VASC DEV [id number] / / [id number] [place] [id number] [place] [address] [place]
--- OUTSIDE RECORDS SUMMARY | 2024-11-06 11:27 | XMS_ITS | Encounter Summary ---
Author Organization [facility] Address [address] [place] [address] Care Team Providers Care Hospital Product Specialist Name Role Phone Edi Chase MD Primary Care Provider [phone] Sam Sanchez MD Unavailable [phone] Cayetano Cannon MD Unavailable [phone] Encounter Details Date Type Department Care [...] How often do you attend chur or denominational services? Patient unable to answer 12/26/2023 Do you belong to any clubs o r organizations such as orthodox groups, unions, fraternal or athletic groups, [...] Health Questionnaire-2 Score 1 08/27/2024 [facility] - Occupational Stress Questionnaire [...] 11/16/2024 1:40 PM EDT Office Visit [facility] [address] [place] [address] Florentin Tillman MD [address] [place] [address] documented as of this encounter [...] documented as of this encounter Care Teams Hospital Product Specialist Relationship Specialty Start Date End Date Edi Chase MD [address] [facility] [place] [address] PCP - General 03/14/20 Sam Sanchez MD [address] [place] [address] Consulting Physician Pulmonary Disease 08/11/22 Cayetano Cannon MD [address] [place] [address] Referring Physician 08/11/22 documented as of this encounter
[2024-11-06] MEDS: SODIUM CHLORIDE 0.9% IV (12:19)
[2024-11-06] MEDS: PEMETREXED DISODIUM IV (12:19)
[2024-11-06 12:20] VITALS: BP 153/77; PULSE 58; RESP 18; TEMP 36.6; O2SAT 97
[2024-11-06 13:06] VITALS: BP 161/74; PULSE 62; RESP 18; O2SAT 97
== END 2024-11-06 13:06 | disposition home or self-care (01) ==
LOC: INF 11:10
PROVIDERS: PCP Internal Medicine; Visit Provider Internal Medicine Medical Oncology
DX: C34.90 Malignant neoplasm of unspecified part of unspecified bronchus or lung (principal); Z51.11 Encounter for antineoplastic chemotherapy
CPT/HCPCS: 96413; J3420; J9305; Q0164

== ENCOUNTER 2024-11-13 09:24 | Inpatient (IN) | payer MEDICARE, MEDICAID, SELFPAY ==
--- OUTSIDE RECORDS SUMMARY | 2006-01-18 07:04 | XMS_ITS | Continuity of Care Document ---
Author Organization [facility] o Address [address] [place] [address] Phone Care Team Providers Care Accounting Policy Consultant Name Role Phone Bruno Rogel MD Unavailable Unavailable Procedures Procedure Date Emg 1 Ext Nrv conductn motor, ea nrv w/o Fwav Nerve conductn motor ea nrv sensory Advance Directives Directive Yes / No Effective Date File Name No Information Encounters Encounter Description Practice Location Reason(s) For Visit Diagnoses Date Provider Providers Copied on Encounter [facility] [place], [address] [place] [address], [address], [place] tel:[phone] 00 [facility] No Information 7200 6 Juan F Carr. [address] [place], [place], [id number] , [place]. tel:[phone] Family History Family Member Type Diagnosis Age At Onset No Information Payers Payer name Insurance type Covered libertarian ID Authoriza tion(s) Medicare [employer] MB [id number] Social History Type Description Quantity Date Captured [...]
--- OUTSIDE RECORDS SUMMARY | 2024-10-16 07:56 | XMS_ITS | Encounter Summary ---
Author Organization [facility] Address [address] [place] [address] Care Team Providers Care Grader Tender Name Role Phone Edi Chase MD Primary Care Provider [phone] Sam Sanchez MD Unavailable [phone] Cayetano Cannon MD Unavailable [phone] Reason for Referral * Other Medical (Routine) - Closed Specialty Diagnoses / Procedures Referred By José campbell Referred To Contact Neurology Diagnoses Dizziness on standing Procedures EEG Jyoti Tyler MD [address] [address] Phone: tel: fax: Referral ID Status Reason Start Date Expiration Date V isits Requested Visits Authorized [id number] Closed Specialty Services Required 08/27/2024 02/26/2026 1 1 Reason for Visit * Other Medical (Routine) - Closed Specialty Diagnoses / Procedures Referred By José campbell Referred To Contact Neurology Diagnoses Dizziness on standing Procedures EEG Jyoti Tylre MD [address] [address] Phone: tel: fax: Referral ID Status Reason Start Date Expiration Date V isits Requested Visits Authorized [id number] Closed Specialty Services Required 08/27/2024 02/26/2026 1 1 Encounter Details Date Type Department Care Team (Latest Contact Info) Description 10/16/2024 7:56 AM EDT - 10/16/2024 11:59 PM EDT Hospital Encounter [facility] Neurophysiology [address] [place] [address] Dizziness on standing Discharge Disposition: Home or [...] answer 12/26/2023 How often do you attend [facility] or mandaen services? Patient unable to answer [...] Recorded Patient Health Questionnaire-2 Score 1 08/27/2024 [facility] - Occupational [...] tablet by mouth daily. 08/27/2024 HYDROcodone-aceta minophen ([place]) 5-325 MG tablet Take 1 tablet (5 [...] Description 11/16/2024 1:40 PM EDT Office Visit [facility] [address] [place] [address] Florentin Tillman MD [address] [place] [address] documented as of this encounter Procedures Procedure [...] discharges, or other focal abnormalities seen. Med Jmienez MD [1] Current Outpatient Medications Medication Sig [...] After use, clean tip and replace cap. Tpotorvebkh-Igbzrskkl-Yiupyc (Trelegy Ellipta) 100-62.5-25 MCG/ACT aerosol powder Inhale [...] Take 1 tablet by mouth daily. HYDROcodone-acetaminophen ([place]) 5-325 MG tablet Take 1 tablet (5 [...] documented as of this encounter Care Teams Grader Tender Relationship Specialty Start Date End Date Edi Chase MD [address] [place] [address] PCP - General 03/14/20 Sam Sanchez MD [address] [place] [address] Consulting Physician Pulmonary Disease 08/11/22 Cayetano Cannon MD [address] [facility] [address] [place] [address] Referring Physician 08/11/22 documented as of this encounter
[2024-11-13] VITALS (17 sets, daily range): BP systolic 95–150; BP diastolic 52–78; PULSE 54–86; RESP 15–23; TEMP 36.4–39.1; O2SAT 90–98; BMI 29.9
--- OUTSIDE RECORDS SUMMARY | 2024-11-13 09:59 | XMS_ITS | Clinical Summary ---
Author Organization [facility] Address [address] [place] [address] Phone Care Team Providers Care Production Staff Worker Name Role Phone Gala Osborne APRN Primary Care Physician [ ] Conditions or Problems Problem Name Problem Code Onset Date Status Entry Date Provider Comment Standard Description Annotate HEMATURIA NOS R31.9 (ICD-10-CM ) 05/11 Active 05/11 Gala Furnclayton AVILA Hematuria, unspecified ABNORMAL ELECTROCARDIO GRAM 004550277 (SNOMED CT) 05/11 Active 05/11 Gala Furnish ANY COMMODITY SALES DELIVERER Electrocardiogram abnormal BLINDNESS, BILATERAL [id number] (SNOMED CT) 05/11 Active 05/11 Gala Furnclayton ANY COMMODITY SALES DELIVERER Blindness - both eyes HYPERTENSION 63563588 (SNOMED CT) 05/11 Active 05/11 Gala Furnish ANY COMMODITY SALES DELIVERER Hypertensive disorder FLANK PAIN, RIGHT 382187426 (SNOMED CT) 05/11 Active 05/11 Gala Furnish ANY COMMODITY SALES DELIVERER Flank pain CHEST PAIN NOS 23469281 (SNOMED CT) 05/11 Active 05/11 Gala Furnish ANY COMMODITY SALES DELIVERER Chest pain Medications Medication Instructions Start Date Stop Date Generic Name NDC Provider HYDROCODONE-ACET AMINOPHEN 5-325 MG TABS 1-2 po q 6 hours prn pain HYDROCODONE-ACET AMINOPHEN [id number] Gala Furnclayton ANY COMMODITY SALES DELIVERER CIPROFLOXACIN HCL 500 MG TABS Take 1 tablet by mouth twice a day CIPROFLOXACIN HCL [id number] Gala Furnclayton ANY COMMODITY SALES DELIVERER Medications Administered No information available. Allergies, Adverse [...] Procedures Code Procedure Name Date Entry Date CPT-98900 ECG; interpretation and report only (Medicare use [id number] + [id number]) CPT-99222 Urine Dip Auto CPT-11793 CMP (Outside Lab) Pharm Stress Test Pharmacologic Stress Test CPT-51912 Urine Culture (Outside Lab) Vital Signs Date [...]
--- OUTSIDE RECORDS SUMMARY | 2024-11-13 10:00 | XMS_ITS | Encounter Summary ---
Author Organization [facility] Address [address] [place] [address] Care Team Providers Care Cancer Registry Coordinator Name Role Phone Edi Chase MD Primary Care Provider [phone] Sam Sanchez MD Unavailable [phone] Cayetano Cannon MD Unavailable [phone] Encounter Details Date Type Department Care Team (Late st Contact Info) Description 09/30/2022 Lab Requisition [facility] [address] [place] [address] Lyn Santana MD [address] [place] [address] Malignant neoplasm of upper lobe, [...] 11/16/2024 1:40 PM EDT Office Visit [facility] [address] [place] [address] Florentin Tillman MD [address] [place] [address] documented as of this encounter Procedures Procedure Name Priority Date/Time Associated Diagnosis Comments AP MISCELLANEOUS LAB TEST (SO) Routine 09/08/2022 11:51 AM EDT Malignant neoplasm of upper lobe, left bronchus or lung (CMS/HCC) documented in this encounter Results * AP Miscellaneous Lab Test (09/08/2022 11:51 AM EDT) Test name MO Profile 10/15/2022 7:42 AM EDT [facility] Comment:[id number] A1 Test Result see scan 10/15/2022 7:42 AM EDT [facility] See Scanned Result 10/15/2022 7:42 AM EDT [facility] Tissue 09/08/2022 11:5 1 AM EDT 09/30/2022 2:24 PM EDT Lyn Santana MD LAB REF LAB BLOOD AND FLUID ORD Final Result [facility] documented in this encounter [...] documented as of this encounter Care Teams Cancer Registry Coordinator Relationship Specialty Start Date End Date Edi Chase MD [address] [place] [address] PCP - General 03/14/20 Sam Sanchez MD [address] [place] [address] Consulting Physician Pulmonary Disease 08/11/22 Cayetano Cannon MD [address] [place] [address] Referring Physician 08/11/22 documented as of this encounter
--- OUTSIDE RECORDS SUMMARY | 2024-11-13 10:00 | XMS_ITS | Encounter Summary ---
Author Organization [facility] Address [address] [place] [address] Care Team Providers Care Production Finisher Name Role Phone Edi Chase MD Primary Care Provider [phone] Sma Sanchez MD Unavailable [phone] Cayetano Cannon MD Unavailable [phone] Encounter Details Date Type Department Care Team (Late st Contact Info) Description 12/14/2023 Orders Only External Location [address] [place] [address] Cedric Hinton MD [address] [place] [id number] Social History Tobacco Use Types Packs/Day Years [...] Description 11/16/2024 1:40 PM EDT Office Visit [facility] [address] [place] [address] Florentin Tillman MD [address] [place] [address] documented as of this encounter Procedures Procedure [...] as of this encounter Care Teams Production Finisher Relationship Specialty Start Date End Date Edi Chase MD [address] [place] [address] PCP - General 03/14/20 Sam Sanchez MD [address] [place] [address] Consulting Physician Pulmonary Disease 08/11/22 Cayetano Cannon MD [address] [place] [address] Referring Physician 08/11/22 documented as of this encounter
--- OUTSIDE RECORDS SUMMARY | 2024-11-13 10:00 | XMS_ITS | Encounter Summary ---
Author Organization [facility] Address [address] [place] [address] Care Team Providers Care Center Specialists Name Role Phone Edi Chase MD Primary Care Provider [phone] Sam Sanchez MD Unavailable Cayetano Cannon MD Unavailable [phone] Encounter Details Date Type Department Care Team (Late st Contact Info) Description 07/08/2022 Orders Only External Location [address] [place] [address] Armani [place] [address] [address] [place] [address] Social History Tobacco Use Types [...] Description 11/16/2024 1:40 PM EDT Office Visit [address] [place] [address] Florentin Tillman MD [address] [place] [address] documented as of this encounter Procedures Procedure [...] documented as of this encounter Care Teams Center Specialists Relationship Specialty Start Date End Date Edi Chase MD [address] [place] [address] PCP - General 03/14/20 Sam Sanchez MD [address] [place] [address] Consulting Physician Pulmonary Disease 08/11/22 Cayetano Cannon MD [address] [place] [address] Referring Physician 08/11/22 documented as of this encounter
--- OUTSIDE RECORDS SUMMARY | 2024-11-13 10:00 | XMS_ITS | Encounter Summary ---
Author Organization Healthcare Address [address] [place] [address] Care Team Providers Care Fitness Floor Attendant Name Role Phone Edi Chase MD Primary Care Provider [phone] Sam Sanchez MD Unavailable [phone] Cayetano Cannon MD Unavailable [phone] Encounter Details Date Type Department Care Team (Late st Contact Info) Description 12/12/2023 Orders Only External Location [address] [place] [address] Provider, External Social History Tobacco Use Types [...] 1:40 PM EDT Office Visit [facility] [address] [place] [address] Florentin Tillman MD [address] [place] [address] documented as of this encounter Procedures Procedure [...] documented as of this encounter Care Teams Fitness Floor Attendant Relationship Specialty Start Date End Date Edi Chase MD [address] [facility] [address] [place] [address] PCP - General 03/14/20 Sam Sanchez MD [address] [place] [address] Consulting Physician Pulmonary Disease 08/11/22 Cayetano Cannon MD [address] [facility] [address] [place] [address] Referring Physician 08/11/22 documented as of this encounter
--- OUTSIDE RECORDS SUMMARY | 2024-11-13 10:00 | XMS_ITS | Encounter Summary ---
Author Organization Healthcare Address [address] [place] [address] Care Team Providers Care Assistant General Manager Name Role Phone Edi Chase MD Primary Care Provider [phone] Sam Sanchez MD Unavailable [phone] Cayetano Cannon MD Unavailable [phone] Encounter Details Date Type Department Care Team ([facility] st Contact Info) Description 01/05/2024 Orders Only External Location [address] [place] [address] Cedric Hinton MD [address] [place] [address] Social History Tobacco Use Types Packs/Day Years [...] to answer 12/26/2023 [facility] [place] - Occupational Stress Questionnaire Answer Date [...] Description 11/16/2024 1:40 PM EDT Office Visit [place] [id number] [facility] [address] [place] [address] Florentin Tillman MD [address] [place] [address] documented as of this encounter Procedures [...] documented as of this encounter Care Teams Assistant General Manager Relationship Specialty Start Date End Date Edi Chase MD [address] [place] [address] PCP - General 03/14/20 Sam Sanchez MD [address] [place] [address] Consulting Physician Pulmonary Disease 08/11/22 Cayetano Cannon MD [address] [facility] [address] [place], [place] [address] Referring Physician 08/11/22 documented as of this encounter
--- OUTSIDE RECORDS SUMMARY | 2024-11-13 10:00 | XMS_ITS | Encounter Summary ---
Author Organization Healthcare Address [address] [place] [address] Care Team Providers Care Java Developer Architect Name Role Phone Edi Chase MD Primary Care Provider [phone] Sam Sanchez MD Unavailable [phone] Cayetano Cannon MD Unavailable [phone] Encounter Details Date Type Department Care Team (Late st Contact Info) Description 12/26/2023 Lab Requisition [facility] [address] [place] [address] Amado Horton MD [address] [place] [address] Encounter for general adult medical [...] How often do you attend chur or jehovah's witness services? Patient unable to answer 12/26/2023 Do [...] unable to answer 12/26/2023 [facility] - Occupational Stress Questionnaire Answer Date [...] unable to answer 12/26/2023 3:21 PM EDT Nciole Nair RN Q3: How often do you [...] Description 11/16/2024 1:40 PM EDT Office Visit [facility] [address] [place] [address] Florentin Tillman MD [address] [place] [address] documented as of this encounter Procedures Procedure Name Priority Date/Time Associated Diagnosis Comments MULTI DRUG RESISTANCE TEST Routine 12/26/2023 2:00 PM EDT Encounter for general adult medical examination without abnormal findings documented in this encounter Results * Multi Drug Resistance Test (12/26/2023 2:00 PM EDT) Culture No growth at day 1 12/27/2023 12:24 PM EDT [facility] Swab (Nares and Brenda Rectal) 12/26/2023 2:00 PM EDT 12/26/2023 3:15 PM EDT us Amado Horton MD LAB MICROBIOLOGY - GEN ERAL ORDERABLES Final Result [facility] [address] [place] [address] documented in this encounter Visit Diagnoses Diagnosis [...] documented as of this encounter Care Teams Java Developer Architect Relationship Specialty Start Date End Date Edi Chase MD [address] [place] [address] PCP - General 03/14/20 Sam Sanchez MD [address] [place] [address] Consulting Physician Pulmonary Disease 08/11/22 Cayetano Cannon MD [address] [facility] [address] [place] [address] Referring Physician 08/11/22 documented as of this encounter
--- OUTSIDE RECORDS SUMMARY | 2024-11-13 10:01 | XMS_ITS | Encounter Summary ---
Author Organization [facility] Address [address] [place] [address] Care Team Providers Care Vamp Marker Name Role Phone Edi Chase MD Primary Care Provider [phone] Sam Sanchez MD Unavailable [phone] Cayetano Cannon MD Unavailable [phone] Encounter Details Date Type Department Care [...] How often do you attend chur or hinduism services? Patient unable to answer 12/26/2023 Do [...] Health Questionnaire-2 Score 1 08/27/2024 [facility] - Occupational [...] place to sleep or slept in a long term (including now)? Patient unable to answer 12/26/2023 [...] Description 11/16/2024 1:40 PM EDT Office Visit [facility] [address] [place] [address] Florentin Tillman MD [address] [place] [address] documented as of this encounter [...] documented as of this encounter Care Teams Vamp Marker Relationship Specialty Start Date End Date Edi Chase MD [address] [facility] [place] [address] PCP - General 03/14/20 Sam Sanchez MD [address] [place] [address] Consulting Physician Pulmonary Disease 08/11/22 Cayetano Cannon MD [address] [place] [address] Referring Physician 08/11/22 documented as of this encounter
--- OUTSIDE RECORDS SUMMARY | 2024-11-13 10:01 | XMS_ITS | Clinical Summary ---
Author Organization [facility] Address [address] [address] Phone Care Team Providers Care Vending Attendant Name Role Phone Unavailable Primary Care Provider [...] this topic Medical Devices Implanted Type Area Cdl Dedicated Truck Driver Device Identifier Shelf Expiration Date Model / Serial / Lot Stent Coronary Vision Rx 3.50mm X 18mm - [id number] Implanted:Qty: 1 on 03/16/2010 at [facility] LABOR RELATIONS REPRESENTATIVE Explanted:at [facility] LABOR RELATIONS REPRESENTATIVE (Quantity not on file) Stent-Vis ion [facility] LAB:VASC DEV [id number] / / [id number] [place] [address] [place] [address] [place]
--- OUTSIDE RECORDS SUMMARY | 2024-11-13 10:01 | XMS_ITS | Encounter Summary ---
Author Organization [facility] Address [address] [place] [address] Care Team Providers Care Environmental Quality Analyst Name Role Phone Edi Chase MD Primary Care Provider Sam Sanchez MD Unavailable [phone] Cayetano Cannon MD Unavailable [phone] Encounter Details Date Type Department Care [...] How often do you attend chur or christian services? Patient unable to answer [...] Health Questionnaire-2 Score 1 08/27/2024 [facility] - Occupational Stress [...] Description 11/16/2024 1:40 PM EDT Office Visit [facility] [address] [place] [address] Florentin Tillman MD [address] [place] [address] documented as of this encounter [...] documented as of this encounter Care Teams Environmental Quality Analyst Relationship Specialty Start Date End Date Edi Chase MD [address] [place] [address] PCP - General 03/14/20 Sam Sanchez MD [address] [place] [address] Consulting Physician Pulmonary Disease 08/11/22 Cayetano Cannon MD [address] [place] [address] Referring Physician 08/11/22 documented as of this encounter
--- OUTSIDE RECORDS SUMMARY | 2024-11-13 10:01 | XMS_ITS | Clinical Summary ---
Author Organization Healthcare Address [address] [place] [address] Care Team Providers Care Plating Foreman Name Role Phone Edi Chase MD Primary Care Provider [phone] Sam Sanchez MD Unavailable Cayetano Cannon MD Unavailable [phone] Allergies No known active allergies Medications [...] (one) time each day. Active HYDROcodone-acet aminophen ([place]) 5-325 MG tablet Take 1 tablet (5 [...] [address] [place] [address] Dizziness on standing Discharge Disposition: Home or Self Care 10/16/2024 Travel 08/27/2024 1:00 PM EDT Consult [place] [facility] [address] [place] [address] Cuong Catherine MD Dizziness on standing (Primary Dx); Nonintractable episodic headache, unspecified headache type; Cerebrovascular accident (CVA), unspecified mechanism (CMS/HCC) 08/27/2024 Travel 08/22/2024 Telephone [facility] [address], [address] [place] [address] Cuong Catherine MD from Last [...] How often do you attend [facility] or sikhism services? Patient unable to answer [...] Score 1 08[facility]24 [facility]ational Stress Questionnaire Answer Date [...] Recorded In the past 12 months has [employer], [employer], oil, or water [employer] threatened to shut off services in your [...] Visit [facility] [address] [place] [address] Florentin Tillman MD [address] [place] [id number] Health Maintenance Due Date Last Done Comments [facility]-Medicare Annual Wellness (AWV) 1950 [facility]-/Child/Adol SDOH Screenings 1950 [facility]-DTaP,Tdap,and Td Vaccines (1 - Tdap) 08/31/1967 [facility]-Pneumococcal Vaccine: 50+ Years (1 of 2 - PCV) 08/31/1967 [facility]-Zoster Vaccines (1 of 2) 08/31/1967 [id number] Vaccine (3 - Pfizer risk series) 05/10/2020 [...] After use, clean tip and replace cap. Trjhtnczvag-Ncwfjldwp-Gkfqmq (Trelegy Ellipta) 100-62.5-25 MCG/ACT aerosol powder Inhale [...] Take 1 tablet by mouth daily. HYDROcodone-acetaminophen ([place]) 5-325 MG tablet Take 1 tablet (5 [...] Antibody Negative Negative 12/23/2023 6:55 PM EDT [facility] Blood Venous blood specimen / Unknown Venipuncture / Unknown 12/23/2023 5:39 PM EDT 12/23/2023 6:04 PM EDT us eMd Lyn MD LAB BLOOD ORDERABLES Final Result [facility] [address] [place] [address] * (ABNORMAL) Hemoglobin A1c (12/23/2023 5:39 PM EDT) Hemoglobin A1c 6.3(H) <5.7 % 12/24/2023 12:22 AM EDT [facility] Blood Venous blood specimen / Unknown Venipuncture / Unknown 12/23/2023 5:39 PM EDT 12/23/2023 5:55 PM EDT Narrative [facility] - 12/24/2023 12:22 AM EDT HA1C Interpretive Data: Diagnosis of Diabetes: Diabetic > or = 6.5% Pre-diabetic 5.7 to 6.4% Non-diabetic < or = 5.6% Glycemic Targets for Type I and Type II Diabetics: Non- Adults <7.0% Adults <6.0% Children and Adolescents <7.5% Source: [place] [employer]. Standards of medical care in diabetes,2017. Diabetes Care.2017:40 (suppl 1):S1-S135. HbA1c assay performed by an ion-exchange chromatography method that is certified traceable to the DCCT. 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 Yes Care Teams Plating Foreman Relationship Specialty Start Date End Date Edi Chase MD [address] [place] [address] PCP - General 03/14/20 Sam Sanchez MD [address] [place] [id number] Consulting Physician Pulmonary Disease 08/11/22 Cayetano Cannon MD [address] [place] [address] Referring Physician 08/11/22
--- NOTE | 2024-11-13 10:03 | HMH.EDGENADL ---
Discharge Plan Disposition Patient Disposition: Admitted Prescriptions Prescriptions: No Action Eliquis 2.5 mg tablet 2.5 mg PO BID Qty: 60 2RF Trelegy Ellipta 100-62.5-25 mcg blister with device 1 inh inhalation DAILY Qty: 60 2RF loperamide 2 mg capsule 2 mg PO Q6HP PRN (Reason: Diarrhea) Systane Nighttime 94-3 % ointment 1 applic ophthalmic (eye) HS finasteride 5 mg tablet 5 mg PO DAILY Qty: 90 3RF tamsulosin 0.4 mg capsule 0.4 mg PO HS 90 Days Qty: 90 1RF metoprolol succinate 100 mg tablet extended release 24 hr 100 mg PO DAILY fluticasone propionate [Flonase Allergy Relief] 50 mcg/actuation spray,suspension 2 spray intranasal DAILY Rx Instructions: administer into each nostril escitalopram oxalate [Lexapro] 5 mg tablet 5 mg PO DAILY sennosides [Senna Laxative] 8.6 mg tablet 17.2 mg PO HS ipratropium-albuterol 0.5 mg-3 mg(2.5 mg base)/3 mL solution for nebulization 3 ml inhalation QIDP PRN (Reason: Shortness Of Breath Or Wheezing) lidocaine [Lidocaine Pain Relief] 4 % adhesive patch,medicated 1 patch TOPICAL DAILY ondansetron HCl 4 mg Tablet 4 mg PO Q4HP PRN (Reason: Nausea) guaifenesin 100 mg/5 mL Liquid 200 mg PO Q6HP PRN (Reason: Cough) albuterol sulfate [Ventolin HFA] 90 mcg/actuation HFA aerosol inhaler 1 puff INHALATION Q4HP PRN (Reason: Shortness Of Breath) Acid Gone Antacid 95-358 mg/15 mL suspension 30 ml PO Q6HP PRN (Reason: Acid Reflux) gabapentin 100 mg capsule 100 mg PO BID Qty: 60 5RF oxycodone 10 mg tablet 10 mg PO TID Qty: 90 0RF cetirizine 10 mg tablet 10 mg PO DAILY isosorbide mononitrate 30 mg tablet extended release 24 hr 30 mg PO DAILY oxcarbazepine 300 mg tablet 300 mg PO BID ferrous sulfate 325 mg (65 mg iron) tablet 325 mg PO DAILY multivitamin Tablet 1 tab PO DAILY timolol maleate 0.5 % drops 1 drp ophthalmic (eye) DAILY acetaminophen 500 mg Capsule 500 mg PO Q4HP PRN (Reason: Mild Pain (Scale Score 1-4)) atorvastatin 40 mg Tablet 40 mg PO HS 30 Days Qty: 30 0RF clopidogrel 75 mg Tablet 75 mg PO DAILY 30 Days Qty: 30 0RF pantoprazole 40 mg Tablet,Delayed Release (Dr/Ec) 40 mg PO HS 30 Days Qty: 30 0RF furosemide 20 mg Tablet 20 mg PO DAILY diclofenac sodium 1 % gel 1 g TOPICAL BID Rx Instructions: TO RIGHT KNEE Referrals Follow up/Referrals: Provider,Referral, MD [Primary Care Provider, Medical] - See instructions Clinical Impressions Clinical Impression: Severe sepsis, Fever, Immunosuppression, Acute UTI, ELMER (acute kidney injury) Print Language Print Language: Kyrgyz Discharge ED Provider: Elvie Rodarte General Adult HPI General Chief complaint: Weakness Stated complaint: tremors,nausea Time Seen by Provider: 11/13/24 09:57 Mode of Arrival: EMS Source of Information: EMS Description of Symptoms (Recalled from ER Triage Doc. by RN): ems states patient has had increased weakness and new tremors this am. has had a 2 falls recenlty the last week. just started chemo a few weeks ago forlung cancer. patient reports he is having right sided flank pain. on arrival patient was 83 on RA typically wears 2L NC [facility] prison. last chemo last History of Present Illness HPI narrative: Patient is a 74-year-old male presenting today with increased weakness and chills and fever. Claims he is having left-sided CVA/flank discomfort. Was recently been in the hospital for questionable pneumonia but had a consolidative mass that was showing progression. Had an ESBL organism growing from his urine and was started on meropenem was also on Rocephin and azithromycin for the potential pneumonia. Has grown multiple multidrug-resistant organisms in the past has an indwelling Jason catheter that he states was changed to few days ago. Related Data Home Medications ?Medication ?Instructions ?Recorded ?Confirmed cetirizine 10 mg tablet 10 mg PO DAILY 06/09/23 11/06/24 ferrous sulfate 325 mg (65 mg 325 mg PO DAILY 06/09/23 11/06/24 iron) tablet isosorbide mononitrate 30 mg 30 mg PO DAILY 06/09/23 11/06/24 tablet,extended release 24 hr oxcarbazepine 300 mg tablet 300 mg PO BID 06/09/23 11/06/24 acetaminophen 500 mg capsule 500 mg PO Q4HP PRN Mild Pain 06/10/23 11/06/24 (Scale Score 1-4) multivitamin 1 tab PO DAILY 06/10/23 11/06/24 timolol maleate 0.5 % eye drops 1 drp ophthalmic (eye) DAILY 06/10/23 11/06/24 escitalopram oxalate 5 mg tablet 5 mg PO DAILY 12/06/23 11/06/24 (Lexapro) guaifenesin 100 mg/5 mL oral liquid 200 mg PO Q6HP PRN Cough 12/22/23 11/06/24 lidocaine 4 % topical patch 1 patch topical DAILY 12/22/23 11/06/24 (Lidocaine Pain Relief) ondansetron HCl 4 mg tablet 4 mg PO Q4HP PRN Nausea 12/22/23 11/06/24 albuterol sulfate 90 mcg/actuation 1 puff inhalation Q4HP PRN 02/14/24 11/06/24 aerosol inhaler (Ventolin HFA) Shortness Of Breath loperamide 2 mg capsule 2 mg PO Q6HP PRN Diarrhea 02/14/24 11/06/24 white petrolatum-mineral oil 94 1 applic ophthalmic (eye) HS 02/14/24 11/06/24 %-3 % eye ointment (Systane Nighttime) aluminum hydrox-magnesium carb 95 30 ml PO Q6HP PRN Acid Reflux 04/24/24 11/06/24 mg-358 mg/15 mL oral suspension (Acid Gone Antacid) fluticasone propionate 50 2 spray intranasal DAILY 06/26/24 11/06/24 mcg/actuation nasal spray,suspension (Flonase Allergy Relief) metoprolol succinate 100 mg 100 mg PO DAILY 06/26/24 11/06/24 tablet,extended release 24 hr ipratropium 0.5 mg-albuterol 3 mg 3 ml inhalation QIDP PRN Shortness 09/04/24 11/06/24 (2.5 mg base)/3 mL nebulization Of Breath Or Wheezing soln sennosides 8.6 mg tablet (Senna 17.2 mg PO HS 09/04/24 11/06/24 Laxative) diclofenac sodium 1 % topical gel 1 g topical BID 10/27/24 11/06/24 furosemide 20 mg tablet 20 mg PO DAILY 10/27/24 11/06/24 Previous Rx's ?Medication ?Instructions ?Recorded fluticasone fur. 100 mcg-umeclid 1 inh inhalation DAILY #60 ea 01/03/24 62.5 mcg-vilant 25 mcg inhalat.powder (Trelegy Ellipta) finasteride 5 mg tablet 5 mg PO DAILY #90 tabs 03/05/24 tamsulosin 0.4 mg capsule 0.4 mg PO HS 90 days #90 caps 03/05/24 apixaban 2.5 mg tablet (Eliquis) 2.5 mg PO BID #60 tabs 05/24/24 gabapentin 100 mg capsule 100 mg PO BID #60 caps 06/08/24 atorvastatin 40 mg tablet 40 mg PO HS 30 days #30 tabs 09/12/24 clopidogrel 75 mg tablet 75 mg PO DAILY 30 days #30 tabs 09/12/24 pantoprazole 40 mg tablet,delayed 40 mg PO HS 30 days #30 tabs 09/12/24 release oxycodone 10 mg tablet 10 mg PO TID #90 tabs 11/02/24 Allergies Allergy/AdvReac Type Severity Reaction Status Date / Time No Known Allergies Allergy Verified 11/06/24 10:40 [facility] Disclaimer: The information contained in this section may have been updated after the patient was seen, as this information can be updated by other users. Medical History Acute exacerbation of chronic obstructive pulmonary disease AARON (obstructive sleep apnea) Lung cancer COPD mixed type PAF (paroxysmal atrial fibrillation) Knee pain, right Hyperkalemia Polycystic kidney UTI (urinary tract infection) Acute renal injury Jason catheter in place Pain in left arm Chronic hypoxic respiratory failure, on home oxygen therapy Hx of prostatic malignancy Colon cancer Knee pain Heart failure with preserved ejection fraction Peripheral edema Adenocarcinoma of lung Chronic obstructive pulmonary disease CKD (chronic kidney disease) Stopped smoking with greater than 30 pack year history CVA (cerebral vascular accident) Blind Congestive heart failure Renal stones Gastroesophageal reflux 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) CVA (cerebral vascular accident) Obesity (BMI 30.0-34.9) Elevated left ventricular end-diastolic pressure (LVEDP) Diastolic dysfunction Pulmonary HTN Surgical History S/P coronary artery stent placement Hx of total knee arthroplasty History of bowel resection History of bronchoscopy History of ureteroscopy History of colonoscopy History of colectomy Family History Unknown Cancer self; post lung, prostate, and colon Other Family history of cancer Social History Smoking Status: Never smoker alcohol intake: never substance use type: denies use current occupational status: disabled Travel in the last 8 weeks?: None caregiver/support person: Yes household members: none housing: prison lives independently: No marital status: single current occupation: [employer] current occupational exposures/hazards: No caffeine: Yes special milad needs: No agree to transfusion: No do you feel safe at home: Yes victim of physical abuse: No victim of emotional abuse: No victim of sexual abuse: No would you like helpful sources: No Have you lived/traveled outside US in past 30 days?: No Contact w/someone who lives/traveled outside US past 30 days?: No Exposure to someone with infectious disease in past 14 days?: No Do you have a fever (greater than 100.4 F or 38 C)?: No Have you tested positive for COVID-19?: No Exposed to someone with COVID-19 in past 14 days?: No Do you have a sore throat?: No Do you have a cough?: No Do you have any weakness?: No Do you have any diarrhea?: No Are you experiencing any unusual bleeding?: No Do you have any muscle aches/pain?: No Do you have any abdominal pain?: No Are you experiencing loss of taste or smell?: No Other Medical History Have you received the Flu Vaccine for this season: No Have you received the Pneumonia Vaccine: Yes (01/02/24) ROS Obtained: Yes All systems reviewed & no additional complaints except as documented Physical Exam General General appearance: alert Respiratory Respiratory exam: Present normal lung sounds bilaterally; Absent respiratory distress Cardiovascular Cardiovascular exam: Present regular rate and normal rhythm Abdominal Exam Abdominal exam: Present soft; Absent distention or tenderness Back Exam Back exam: Absent CVA tenderness (R) or CVA tenderness (L) Neurological Exam Neurological exam: Present alert and oriented X3 Medical Decision Making Medical Records Screening: Per USPSTF and CDC recommendations, given the prevalence of disease in our region, it is our hospital?s policy to screen for HIV and viral Hepatitis for all patients aged 18 and over and those with ongoing risk factors. [place] [facility] Pt receiving controlled substance: No Vital Signs: 11/13/24 09:29 11/13/24 09:46 11/13/24 10:01 Temperature 102.4 F H Temperature Source Oral Pulse Rate 80 81 Pulse Rate [Right Radial] 83 Respiratory Rate 19 23 Blood Pressure 128/60 123/69 Blood Pressure [Right Arm] 128/60 Blood Pressure Mean [Right Arm] 82 Blood Pressure Source [Right Arm] Automatic Cuff Blood Pressure Position [Right Arm] Sitting 02 Sat by Pulse Oximetry 93 L 96 97 Oxygen Delivery Method Nasal Cannula Oxygen Flow Rate (LPM) 2 11/13/24 10:31 11/13/24 11:01 Temperature Temperature Source Pulse Rate 74 Pulse Rate [Right Radial] Respiratory Rate 21 15 Blood Pressure 141/66 H 95/52 L Blood Pressure [Right Arm] Blood Pressure Mean [Right Arm] Blood Pressure Source [Right Arm] Blood Pressure Position [Right Arm] 02 Sat by Pulse Oximetry 96 Oxygen Delivery Method Oxygen Flow Rate (LPM) Lab Data Lab results reviewed: Yes I reviewed the patient's lab results. Lab Results 11/13/24 09:44: WBC 2.8 L, RBC 2.75 L, Hgb 7.6 L, Hct 24.2 L, MCV 88.0, MCH 27.6, MCHC 31.4 L, RDW 16.5, Plt Count 128 L, MPV 9.7, Neut % (Auto) 88.1 H, Lymph % (Auto) 6.1 L, Rains % (Auto) 2.2, Eos % (Auto) 1.4, Baso % (Auto) 0.4, Neut # (Auto) 2.5, Lymph # (Auto) 0.2 L, Rains # (Auto) 0.1, Eos # (Auto) 0.0, Baso # (Auto) 0.0, Total Counted 25, Neutrophils % (Manual) 80 H, Lymphocytes % (Manual) 16, Monocytes % (Manual) 4, Platelet Estimate Normal, Hypochromasia 1+, Sodium 139, Potassium 4.4, Chloride 110 H, Carbon Dioxide 23, Anion Gap 10.4, BUN 59 H, Creatinine 2.90 H, Estimated Creat Clear 34, Estimated GFR 21 L, Est GFR ( Amer) 26 L, Glucose 154 H, Calcium 8.9, Total Bilirubin 0.7, AST 28, ALT 18, Alkaline Phosphatase 79, Troponin I 0.03, Total Protein 6.7, Albumin 3.5, Globulin 3.2, Albumin/Globulin Ratio 1.1 11/13/24 09:59: VBG pH 7.30 L, VBG pCO2 41.2, VBG pO2 63.2 H, VBG HCO3 19.9 L, VBG Total CO2 21.1 L, VBG O2 Saturation 87.3 H, VBG Base Excess -6.5 L, VBG Lactic Acid 1.3 11/13/24 10:31: Urine Color Yellow, Urine Appearance Cloudy, Urine pH 6.0, Ur Specific [place] 1.015, Urine Protein 2+ A, Urine Glucose (UA) Negative, Urine Ketones Negative, Urine Blood 3+ A, Urine Nitrate Negative, Urine Bilirubin Negative, Urine Urobilinogen 0.2, Ur Leukocyte Esterase 2+ A, Urine RBC 20-50, Urine WBC 50-100, Ur Squamous Epith Cells None, Urine Bacteria 4+ 11/13/24 10:35: SARS-CoV-2 (PCR) Not detected, Influenza A Untype (PCR) Not detected, Influenza Type B (PCR) Not detected 11/13/24 09:44 11/13/24 09:44 Orders (Tests/Meds): ED MEDICATIONS Generic Name Dose Route Start Last Admin Trade Name Freq PRN Reason Stop Dose Admin Lactated Ringer's 2,600 mls @ 1,300 mls/hr 11/13/24 11:35 Lactated Ringer's 1000 Ml Bag 30 ml/kg infuse over 2 hr (2600 ml) 11/13/24 13:34 IV .Q2H ONE Discontinued Medications Generic Name Dose Route Start Last Admin Trade Name Freq PRN Reason Stop Dose Admin Acetaminophen 1,000 mg 11/13/24 10:10 11/13/24 10:15 Acetaminophen 1,000mg/100ml Vial IV 11/13/24 10:11 1,000 mg ONCE ONE Administration Lactated Ringer's 1,000 mls @ 999 mls/hr 11/13/24 10:15 11/13/24 10:15 Lactated Ringer's 1000 Ml Bag IV 11/13/24 11:15 999 mls/hr .Q1H1M HO[place]AND Administration Meropenem 1 gm/ Sodium 100 mls @ 100 mls/hr 11/13/24 11:31 Chloride IV 11/13/24 11:32 ONCE ONE ORDERS Category Date Time Status CXR --portable [XR chest portable] Stat Exams 11/13/24 10:10 Completed CMP [Comprehensive Metabolic Panel] Stat Lab 11/13/24 09:44 Completed Complete Blood Count Auto Diff Stat Lab 11/13/24 09:44 Completed Rapid PCR Covid and Flu A/B Stat Lab 11/13/24 10:35 Completed Trop I [Troponin I] Stat Lab 11/13/24 09:44 Completed Troponin I Q3H Lab 11/13/24 13:15 Ordered Troponin I Q3H Lab 11/13/24 16:15 Ordered UA [Urinalysis and Microscopic] Stat Lab 11/13/24 10:31 Completed Blood Culture Stat Micro 11/13/24 11:00 Received Urine Culture Stat Micro 11/13/24 10:31 Received VBG [Venous Blood Gas] Stat RT 11/13/24 09:59 Completed Venous Blood Gas Stat RT 11/13/24 10:11 Ordered Tissue Perfus/Sepsis Re-Eval Sepsis Re-Evaluation Performed: Yes Date Performed: 11/13/24 Time Performed: 11:36 Medical Decision Narrative: 74-year-old recently initiated on chemotherapy first infusion was last Tuesday presents today with fever chills and weakness. Possible he is bacteremic and neutropenic. Also urinary tract infection certainly very high on the differential as he has a chronic indwelling Jason and has grown multiple ESBL organisms in the recent past namely Klebsiella. Also has grown Proteus as well as Pseudomonas after review of his recent urine cultures. Was on meropenem and Rocephin azithromycin for presumed pneumonia and ESBL in the past with recent hospitalization. On review of patient's labs he does have acute kidney injury with a creatinine of 2.9 up from a baseline of about 1.9. He has been much higher in the past but this is higher than it has been recently. Also has pancytopenia little bit worse than normal but likely secondary to the chemotherapy. No need for transfusion at the moment also he is not objectively neutropenic. We will replace his Jason catheter and obtain his urine from this new device. He believes that his Jason catheter was most recently changed 1 week ago. Reassessment 1137 patient does have evidence of UTI will start him on meropenem given his multiple ESBL's in the past. Patient is objectively septic with neutropenia fever UTI fluids have been administered tissue reperfusion improved and patient's maps have been stable. Patient mated to hospital medicine for further evaluation and management. Critical Care Critical Care Time Critical Care Time: Yes Attestation: On 11/13/24, the high probability of a clinically significant, sudden or life threatening deterioration of the following system(s) required my full and direct attention, intervention and personal management. The time I documented below is in addition to time spent performing reported procedures but includes the following listed in this critical care notation. Total Time Total Critical Care Time: 35
[2024-11-13 10:06] LABS: Lactate Venous 1.3 mmol/L (0.4-2.0); VBG HCO3 19.9 mmol/L (23-30); VBG PCO2 41.2 mmol/L (35-51); VBG PH 7.30 mmol/L (7.31-7.41); VBG PO2 63.2 mmol/L (28-40)
[2024-11-13 10:08] LABS: Albumin Level 3.5 g/dl (3.5-5.0); Chloride 110 mmol/L (98-107); Hematocrit 24.2 % (42.0-52.0); Hemoglobin 7.6 g/dL (14.1-18.0); Immature Granulocytes % 1.8 %; Mean Corpuscular HGB Conc 31.4 g/dL (31.8-35.4); Mean Corpuscular Hemoglobin 27.6 pg (27.0-31.2); Mean Corpuscular Volume 88.0 fl (80-94); Nucleated Red Blood Cells % 0 %; Platelet Count 128 K/mm3 (142-424); Potassium 4.4 mmoL/L (3.5-5.1); Red Blood Count 2.75 M/mm3 (4.60-6.20); Red Cell Distribution Width-SD 52.7 fL; Sodium 139 mmol/L (136-145); White Blood Count 2.8 K/mm3 (4.8-10.8)
--- NOTE | 2024-11-13 10:10 | XR_ITS ---
FINAL REPORT CLINICAL HISTORY: Shortness of breath COMPARISON: 10/26/2024 FINDINGS: The heart size is normal. The mediastinum is normal. The lungs are underinflated. The previously noted left upper lobe infiltrate has significantly improved, consistent with resolving pneumonia. Mild bibasilar atelectasis is noted. There are no pleural effusions. There is no pneumothorax. There is no osseous abnormality. IMPRESSION: Resolving left upper lobe pneumonia. Mild bibasilar atelectasis. Reviewed, Interpreted and Dictated by Primitivo Rodriguez MD Transcribed by Sayra Bliss Authenticated and [facility]
[2024-11-13 10:11] LABS: Alanine Aminotransferase 18 U/L (12-78); Albumin/Globulin Ratio 1.1 (1.1-1.8); Alkaline Phosphatase 79 U/L (38-126); Anion Gap 10.4 mEq/L (5-15); Aspartate Amino Transferase 28 U/L (17-59); Bilirubin,Total 0.7 mg/dl (0.2-1.3); Blood Urea Nitrogen 59 mg/dl (9-20); Carbon Dioxide 23 mmol/L (22.0-30.0); Creatinine Clearance Estimated 34 mL/min (50-200); Creatinine,Serum 2.90 mg/dl (0.66-1.25); Estimated Glomerular Filt Rate 21 ml/min (>60); GFR (African American) 26 ML/MIN (>60); Globulin 3.2 g/dL (1.3-3.2); Total Protein,Serum 6.7 g/dl (6.3-8.2)
[2024-11-13 10:12] LABS: Calcium 8.9 mg/dl (8.4-10.2); Glucose 154 mg/dl (74-100)
[2024-11-13] MEDS: ACETAMINOPHEN 1,000MG/100ML VIAL 1000 MG IV (10:15)
[2024-11-13] MEDS: LACTATED RINGERS 1000ML 1,000 ML 999 ML IV (10:15)
[2024-11-13 10:34] LABS: Microscopic, Urine URINE MICROSCOPIC (MICROSCOPIC)
[2024-11-13 10:35] LABS: Hypochromasia 1+; Total Cells Counted 25
[2024-11-13 10:38] LABS: Coronavirus 19, PCR Not Detected (NotDetected); Influenza A, PCR Not Detected (NotDetected); Influenza B, PCR Not Detected (NotDetected)
[2024-11-13 10:39] LABS: Bilirubin,Urine Negative (Negative); Color,Urine YELLOW (Yellow); Glucose,Urine (UA) Negative (Negative); Ketones,Urine Negative (Negative); Leukocyte Esterase,Urine 2+ (Negative); PH,Urine 6.0 (5.0-8.5); Protein,Urine 2+ (Negative); Specific Gravity, Urine 1.015 (1.005-1.030); Urobilinogen,Urine 0.2 EU/dl (0.2)
[2024-11-13 10:53] LABS: Bacteria,Urine 4+ /lpf; RBC,Urine 20-50 #/hpf (0-3); WBC,Urine 50-100 #/hpf (0-3)
[2024-11-13 11:04] LABS: Troponin I 0.03 ng/ml (0.00-0.034)
--- NOTE | 2024-11-13 11:36 | EXP.HP ---
History of Present Illness *Admission Date: 11/13/24 *Reason for visit:: weakness *History of present illness: Patient presented from his half-way with worsening weakness and tremor this morning. Had 2 falls recently in the past week per report from staff at the half-way. Just started chemo few weeks ago for lung cancer. Last course on Tuesday. And has been having increased flank pain and weakness since. Found to be hypoxic on arrival to the ER, normally wears oxygen at 2 L baseline. On workup in the ER, patient found to be septic with grossly abnormal urine, low white count at 2.8, and fever of 102. Medicine consulted for admission and further treatment of sepsis and UTI. Long-term indwelling catheter, complicated UTI. Has grown ESBL in the past. Denies nausea, vomiting, diarrhea. Patient pleasant on exam but fatigued. Quite weak [facility] Disclaimer: The information contained in this section may have been updated after the patient was seen, as this information can be updated by other users. Medical History (Updated 11/13/24 @ 19:24 by Edi Ramirez MD) CKD (chronic kidney disease) stage 3, GFR 30-59 ml/min Acute exacerbation of chronic obstructive pulmonary disease AARON (obstructive sleep apnea) Lung cancer COPD mixed type PAF (paroxysmal atrial fibrillation) Knee pain, right Hyperkalemia Polycystic kidney UTI (urinary tract infection) Acute renal injury Jason catheter in place Pain in left arm Chronic hypoxic respiratory failure, on home oxygen therapy Hx of prostatic malignancy Colon cancer Knee pain Heart failure with preserved ejection fraction Peripheral edema Adenocarcinoma of lung Chronic obstructive pulmonary disease CKD (chronic kidney disease) Stopped smoking with greater than 30 pack year history CVA (cerebral vascular accident) Blind Congestive heart failure Renal stones Gastroesophageal reflux 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) CVA (cerebral vascular accident) Obesity (BMI 30.0-34.9) Elevated left ventricular end-diastolic pressure (LVEDP) Diastolic dysfunction Pulmonary HTN Surgical History S/P coronary artery stent placement Hx of total knee arthroplasty History of bowel resection History of bronchoscopy History of ureteroscopy History of colonoscopy History of colectomy Family History Unknown Cancer Other Family history of cancer Social History Smoking Status: Never smoker alcohol intake: never substance use type: denies use current occupational status: disabled Travel in the last 8 weeks?: None caregiver/support person: Yes household members: none housing: half-way lives independently: No marital status: single current occupation: [employer] current occupational exposures/hazards: No caffeine: Yes special milad needs: No agree to transfusion: No do you feel safe at home: Yes victim of physical abuse: No victim of emotional abuse: No victim of sexual abuse: No would you like helpful sources: No Have you lived/traveled outside US in past 30 days?: No Contact w/someone who lives/traveled outside US past 30 days?: No Exposure to someone with infectious disease in past 14 days?: No Do you have a fever (greater than 100.4 F or 38 C)?: No Have you tested positive for COVID-19?: No Exposed to someone with COVID-19 in past 14 days?: No Do you have a sore throat?: No Do you have a cough?: No Do you have any weakness?: No Are you experiencing any nausea/vomitting?: No Do you have any diarrhea?: No Are you experiencing any unusual bleeding?: No Do you have any muscle aches/pain?: No Do you have any abdominal pain?: No Are you experiencing loss of taste or smell?: No Other Medical History Have you received the Flu Vaccine for this season: No Have you received the Pneumonia Vaccine: Yes (01/02/24) Review of Systems Review of Systems Review of systems (narrative): 14 point review of systems performed, pertinent positives and negatives as per HPI Meds Home Medications and Allergies Home Medications ?Medication ?Instructions ?Recorded ?Confirmed ?Type cetirizine 10 mg tablet 10 mg PO DAILY 06/09/23 11/13/24 History ferrous sulfate 325 mg (65 mg 325 mg PO DAILY 06/09/23 11/13/24 History iron) tablet isosorbide mononitrate 30 mg 30 mg PO DAILY 06/09/23 11/13/24 History tablet,extended release 24 hr oxcarbazepine 300 mg tablet 300 mg PO BID 06/09/23 11/13/24 History acetaminophen 500 mg capsule 500 mg PO Q4HP PRN Mild Pain 06/10/23 11/13/24 History (Scale Score 1-4) multivitamin 1 tab PO DAILY 06/10/23 11/13/24 History timolol maleate 0.5 % eye drops 1 drp ophthalmic (eye) DAILY 06/10/23 11/13/24 History escitalopram oxalate 5 mg tablet 5 mg PO DAILY 12/06/23 11/13/24 History (Lexapro) guaifenesin 100 mg/5 mL oral liquid 200 mg PO Q6HP PRN Cough 12/22/23 11/13/24 History lidocaine 4 % topical patch 1 patch topical DAILY 12/22/23 11/13/24 History (Lidocaine Pain Relief) ondansetron HCl 4 mg tablet 4 mg PO Q4HP PRN Nausea 12/22/23 11/13/24 History fluticasone fur. 100 mcg-umeclid 1 inh inhalation DAILY #60 ea 01/03/24 11/13/24 Rx 62.5 mcg-vilant 25 mcg inhalat.powder (Trelegy Ellipta) loperamide 2 mg capsule 2 mg PO Q6HP PRN Diarrhea 02/14/24 11/13/24 History white petrolatum-mineral oil 94 1 applic ophthalmic (eye) HS 02/14/24 11/13/24 History %-3 % eye ointment (Systane Nighttime) finasteride 5 mg tablet 5 mg PO DAILY #90 tabs 03/05/24 11/13/24 Rx tamsulosin 0.4 mg capsule 0.4 mg PO HS 90 days #90 caps 03/05/24 11/13/24 Rx aluminum hydrox-magnesium carb 95 30 ml PO Q6HP PRN Acid Reflux 04/24/24 11/13/24 History mg-358 mg/15 mL oral suspension (Acid Gone Antacid) apixaban 2.5 mg tablet (Eliquis) 2.5 mg PO BID #60 tabs 05/24/24 11/13/24 Rx gabapentin 100 mg capsule 100 mg PO BID #60 caps 06/08/24 11/13/24 Rx fluticasone propionate 50 2 spray intranasal DAILY 06/26/24 11/13/24 History mcg/actuation nasal spray,suspension (Flonase Allergy Relief) metoprolol succinate 100 mg 100 mg PO DAILY 06/26/24 11/13/24 History tablet,extended release 24 hr ipratropium 0.5 mg-albuterol 3 mg 3 ml inhalation QIDP PRN Shortness 09/04/24 11/13/24 History (2.5 mg base)/3 mL nebulization Of Breath Or Wheezing soln sennosides 8.6 mg tablet (Senna 17.2 mg PO HS 09/04/24 11/13/24 History Laxative) atorvastatin 40 mg tablet 40 mg PO HS 30 days #30 tabs 09/12/24 11/13/24 Rx clopidogrel 75 mg tablet 75 mg PO DAILY 30 days #30 tabs 09/12/24 11/13/24 Rx pantoprazole 40 mg tablet,delayed 40 mg PO HS 30 days #30 tabs 09/12/24 11/13/24 Rx release furosemide 20 mg tablet 20 mg PO DAILY 10/27/24 11/13/24 History oxycodone 10 mg tablet 10 mg PO TID #90 tabs 11/02/24 11/13/24 Rx New Prescriptions to Start Prescriptions: Allergies Allergy/AdvReac Type Severity Reaction Status Date / Time No Known Allergies Allergy Verified 11/06/24 10:40 Exam Data for Last 24 hours Vital signs and Labs for Last 24 Hours: Temp Pulse Resp BP Pulse Ox O2 Del Method O2 Flow Rate 102.4 F H 74 15 95/52 L 96 Nasal Cannula 2 11/13/24 09:46 11/13/24 10:31 11/13/24 11:01 11/13/24 11:01 11/13/24 10:31 11/13/24 09:46 11/13/24 09:46 Laboratory Results - last 24 hr 11/13/24 09:44: WBC 2.8 L, RBC 2.75 L, Hgb 7.6 L, Hct 24.2 L, MCV 88.0, MCH 27.6, MCHC 31.4 L, RDW 16.5, Plt Count 128 L, MPV 9.7, Neut % (Auto) 88.1 H, Lymph % (Auto) 6.1 L, Russell % (Auto) 2.2, Eos % (Auto) 1.4, Baso % (Auto) 0.4, Neut # (Auto) 2.5, Lymph # (Auto) 0.2 L, Russell # (Auto) 0.1, Eos # (Auto) 0.0, Baso # (Auto) 0.0, Total Counted 25, Neutrophils % (Manual) 80 H, Lymphocytes % (Manual) 16, Monocytes % (Manual) 4, Platelet Estimate Normal, Hypochromasia 1+, Sodium 139, Potassium 4.4, Chloride 110 H, Carbon Dioxide 23, Anion Gap 10.4, BUN 59 H, Creatinine 2.90 H, Estimated Creat Clear 34, Estimated GFR 21 L, Est GFR ( Amer) 26 L, Glucose 154 H, Calcium 8.9, Total Bilirubin 0.7, AST 28, ALT 18, Alkaline Phosphatase 79, Troponin I 0.03, Total Protein 6.7, Albumin 3.5, Globulin 3.2, Albumin/Globulin Ratio 1.1 11/13/24 09:59: VBG pH 7.30 L, VBG pCO2 41.2, VBG pO2 63.2 H, VBG HCO3 19.9 L, VBG Total CO2 21.1 L, VBG O2 Saturation 87.3 H, VBG Base Excess -6.5 L, VBG Lactic Acid 1.3 11/13/24 10:31: Urine Color Yellow, Urine Appearance Cloudy, Urine pH 6.0, Ur Specific [place] 1.015, Urine Protein 2+ A, Urine Glucose (UA) Negative, Urine Ketones Negative, Urine Blood 3+ A, Urine Nitrate Negative, Urine Bilirubin Negative, Urine Urobilinogen 0.2, Ur Leukocyte Esterase 2+ A, Urine RBC 20-50, Urine WBC 50-100, Ur Squamous Epith Cells None, Urine Bacteria 4+ 11/13/24 10:35: SARS-CoV-2 (PCR) Not detected, Influenza A Untype (PCR) Not detected, Influenza Type B (PCR) Not detected I & O for Last 24 hours: Intake & Output 11/10/24 11/11/24 11/12/24 11/13/24 23:59 23:59 23:59 23:59 Weight 111.584 kg Constitutional Constitutional: moderate distress, average body habitus, chronically ill appearing and cooperative *Routine HEENT Exam Head: Present normocephalic Eye: Absent EOMI or PERRL ENT: Present mucous membranes moist Comments: Visual impairment *Routine Neck Exam Neck: Present supple; Absent lymphadenopathy *Routine Respiratory Exam Respiratory: Present rhonchi and wheezes; Absent CTA bilaterally *Routine Cardiovascular Exam Cardiovascular: Present RRR *Routine Abdominal Exam Abdominal: Present soft and normoactive bowel sounds; Absent tenderness *Routine Rectal Exam Rectal:: deferred *Routine Genitalia Exam Genitalia:: normal male Comment:: Indwelling Jason *Routine Extremities Exam Extremities: Absent cyanosis, clubbing or edema *Routine Skin Exam Skin: Present intact and warm; Absent rash *Routine Neurological Exam Neurological: Present alert and oriented X3; Absent altered mental status or vision grossly intact Assessment and Plan *Assessment and plan (1) Severe sepsis: Status: Acute Category: Medical Code(s): A41.9 - Sepsis, unspecified organism; R65.20 - Severe sepsis without septic shock (2) ELMER (acute kidney injury): Status: Acute Category: Medical Code(s): N17.9 - Acute kidney failure, unspecified (3) Complicated UTI (urinary tract infection): Status: Acute Category: Medical Code(s): N39.0 - Urinary tract infection, site not specified (4) PAF (paroxysmal atrial fibrillation): Status: Acute Category: Medical Code(s): I48.0 - Paroxysmal atrial fibrillation (5) Lung cancer: Status: Acute Category: Medical Code(s): C34.90 - Malignant neoplasm of unspecified part of unspecified bronchus or lung (6) Obesity (BMI 30.0-34.9): Status: Chronic Category: Medical Code(s): E66.811 - Obesity, class 1 (7) COPD mixed type: Status: Acute Category: Medical Code(s): J44.9 - Chronic obstructive pulmonary disease, unspecified (8) Chronic hypoxic respiratory failure, on home oxygen therapy: Status: Acute Category: Medical Code(s): J96.11 - Chronic respiratory failure with hypoxia; Z99.81 - Dependence on supplemental oxygen (9) Polycystic kidney disease: Status: Acute Category: Medical Code(s): Q61.3 - Polycystic kidney, unspecified (10) Blind: Status: Acute Qualifiers: Left eye visual impairment category: left - unspecified blindness Right eye visual impairment category: right - unspecified blindness Qualified Code(s): H54.3 - Unqualified visual loss, both eyes Category: Medical Code(s): H54.7 - Unspecified visual loss (11) CKD (chronic kidney disease) stage 3, GFR 30-59 ml/min: Status: Chronic Category: Medical Code(s): N18.30 - Chronic kidney disease, stage 3 unspecified Plan 74-year-old male multiple comorbidities including CAD with PCI to LAD, lung cancer, chronic urinary retention with indwelling catheter, visual impairment, COPD, CHF, polycystic kidney disease, CKD 4. Presented to the ER with weakness. Found to be meeting sepsis criteria with white count of 2.8, Fever 102.4, and frankly abnormal urine with 4+ bacteria, 50-100 whites, 2+ leuk esterase and nitrate negative. Discussed case with ER physician, request admission for further management of sepsis. I decided to admit to the stepdown level of care for further treatment. Initiated on broad-spectrum antibiotics based off previous sensitivities. Problems addressed as follows: Severe sepsis Complicated UTI secondary to chronic indwelling catheter - Continue meropenem 1 g IV twice daily, per chart review, previous cultures growing Klebsiella on 10/26 with multidrug resistance/ESBL. Sensitive to ertapenem and meropenem. -Continue IV fluid resuscitation per sepsis protocol. - Urine and blood cultures pending - Catheter exchanged in the ER Coronary artery disease HFmrEF, chronic Paroxysmal A-fib - Perfusion scan from 09/10 with fixed perfusion defects. EF calculated at 43% - Heart cath performed 09/11/2024 with severe proximal and mid LAD disease. Received 3 contiguous stents. - Continue Lipitor 40 mg daily, metoprolol succinate 100 mg daily, Eliquis 2.5 mg twice daily, Plavix 75 mg daily - Hold Jardiance in the setting of complicated UTI - Continue to monitor on telemetry -Consider resuming diuresis in the morning as patient stabilizes from sepsis Left upper lobe lung adenocarcinoma ? Former smoker, following with pulmonology and oncology closely. ? Completed radiation therapy, however mass showing progression. - Oncology began chemotherapy in the past few weeks. Last dose on Tuesday. Complicates his ability to fight infection. Stable oxygen requirement at this time of 1 to 2 L. - Continue home gabapentin 100 mg twice daily and oxycodone 10 mg as needed 3 times a day. Monitor for toxicity GERD: Continue home PPI. Polycystic kidney disease CKD 3b BPH - Baseline creatinine approximately 1.8-2.0. BUN 59 and creatinine 2.9 on presentation. Consistent with ELMER on CKD -Repeat CBC, CMP, magnesium ordered for the morning. Monitor for improvement in creatinine with fluid resuscitation - Continue chronic Jason, exchanged on admission - Continue home tamsulosin 0.4 mg nightly Anemia, stable -Hemoglobin 7.6 on presentation. Will monitor closely with repeat H&H in the morning. Consider iron infusion or transfusion if hemoglobin drops less than 7 History of seizure disorder, continue oxcarbazepine 300 mg twice daily Full code Cardiac diet Eliquis DVT prophylaxis as above
--- NOTE | 2024-11-13 11:37 | PC.NURSE ---
call made to house for bed admission
[2024-11-13] MEDS: MEROPENEM 1 GM in 0.9 % SODIUM CHLORIDE 100 ML IV (11:48)
[2024-11-13] MEDS: LACTATED RINGERS 1300 ML IV (11:49)
--- NOTE | 2024-11-13 13:42 | SW/DCPLANNER ---
Addendum entered by [facility] 11/26/24 08:33: Per Central Intake this case did NOT criteria for investigation. Addendum entered by Sirena Dinero RN 11/23/24 10:37: Referral ID# [id number] Addendum entered by [facility] 11/23/24 10:18: Due to patient only being able to answer name and I have made a report to Central Intake regarding the need for potential State Guardian. Addendum entered by [facility] 11/22/24 09:21: Updated patient information faxed to Stefanie jiménez/ [facility] Gust[facility]son. Addendum entered by [facility] 11/19/24 07:46: Updated patient information faxed to Stefanie jiménez/ Axel Gustafson. Addendum entered by [facility] 11/14/24 13:22: Patient does not have any children. Addendum entered by [facility] 11/14/24 13:21: I attempted to discuss w/ this patient the importance of a POA/Healthcare Surrogate. Patient voiced that he understood but requested that I come back tomorrow to further discuss. Patient does have a sister (Quynh Garcia) that lives in [facility]. Patient does not currently have contact information for her. I will continue to follow up w/ jolene and Stefanie w/ [facility]. Original Note: Patient currently resides at [facility] level of care. I will continue to follow up w/ Stefanie at [facility] until patient is medically stable for discharge. Discharge date is unknown at this time.
[2024-11-13 14:06] LABS: Troponin I 0.03 ng/ml (0.00-0.034)
[2024-11-13] MEDS: HEPARIN SODIUM 5,000 UNIT/ML VIAL 5000 UNIT SUBCUT (14:08)
--- NOTE | 2024-11-13 14:26 | HMH.OTEV ---
OT Inpatient Evaluation Rehab OT IP Evaluation Start: 11/13/24 13:08 Freq: ONCE Status: Active Protocol: Document 11/13/24 14:04 FRANCIEHANSEL (Rec: 11/13/24 14:25 JADEJOLIE [id number]) Rehab OT IP Assessment Subjective History 74-year-old recently initiated on chemotherapy first infusion was last Tuesday presents today with fever chills and weakness. Possible he is bacteremic and neutropenic. Also urinary tract infection certainly very high on the differential as he has a chronic indwelling Jason and has grown multiple ESBL organisms in the recent past namely Klebsiella. Also has grown Proteus as well as Pseudomonas after review of his recent urine cultures. Was on meropenem and Rocephin azithromycin for presumed pneumonia and ESBL in the past with recent hospitalization. On review of patient's labs he does have acute kidney injury with a creatinine of 2.9 up from a baseline of about 1.9. He has been much higher in the past but this is higher than it has been recently. Also has pancytopenia little bit worse than normal but likely secondary to the chemotherapy. No need for transfusion at the moment also he is not objectively neutropenic. We will replace his Jason catheter and obtain his urine from this new device. He believes that his Jason catheter was most recently changed 1 week ago. Reassessment 1137 patient does have evidence of UTI will start him on meropenem given his multiple ESBL's in the past. Patient is objectively septic with neutropenia fever UTI fluids have been administered tissue reperfusion improved and patient's maps have been stable. Patient mated to hospital medicine for further evaluation and management. Resident at [facility]. Uses a straight cane to ambulate. Independent with drsg and toileting. Assistance with bathing. Nursing provides medication and facility provides transportation as needed. Subjective I can sit up. Instructed patient on proper hand and foot placement to complete bed mobility from supine->sit @ EOB requiring MIn A. Patient sat up @ EOB with SBA with good dynamic sitting balance. Instructed Patient on to complete STS at EOB. However Patient stated he did not want to stand and requested to lay back in bed due to fatigue. Will attempt OOB tasks at another time. Patient required Mod A from EOB->supine. Left patient sitting upright in chair with needs met end of session. Objective Patient Orientation Person,Name Right Upper WFL Extremity Gross ROM Left Upper Extremity WFL Gross ROM Bed Mobility bed mobility - supine/sit Assist Level Minimal x 1 (25% assist) Rehab OT IP prob,goals,plan Problems Date of Evaluation: 11/13/24 OT IP Problems Bed Mobility,Transfers,Balance,Self care,Safety Rehab Potential Rehab Potential Good Equipment Needs Assistive Devices Rolling / Wheeled Walker Plan OT intervention Plan Bed Mobility,Transfers,Balance,Self care,Safety, Therapeutic Exercise OT Plan Frequency Daily Duration LOS Discharge Goals Bed Mobility Ability Standby Assistance Sit to Stand Chair Contact Guard/Hand Hold Transfer Ability Discharge Plan OT Discharge Plan After medical d/c, Recommend patient to return back to long term home for nursing care and rehabilitation. Patient will benefit from OT skilled IP services to address deficits with environmental modification and safety awareness with focus on improving bed mobility, ADLs and fx'l mobility to decrease fall risk. Eval Complexity Eval Charge Codes 85864 - Low Complexity PHYSICIAN CERTIFICATION: I certify the specified therapy services for Edi Toussaint are required, authorized, and reviewed every 30 days.
[2024-11-13 18:23] LABS: POC Glucose,Bedside 106 gm/dL (70-110)
[2024-11-13 19:58] LABS: Troponin I 0.03 ng/ml (0.00-0.034)
[2024-11-13 20:16] LABS: POC Glucose,Bedside 133 gm/dL (70-110)
--- NOTE | 2024-11-13 21:20 | PC.NURSE ---
Called [facility] pharmacy and spoke to Tariq about patients oxycodone order. It is ordered for his home medication but his home medication is not in his medication drawer to be used. Per Tariq after reviewing his chart to give patient oxycodone IR 10mg from [facility]. Verified medication with Allie RO. Patient Trae was also ordered to use home medication but was not in his medication drawer. Medication was pulled from [facility] to give patient and was also verified with Allie RO.
[2024-11-13] MEDS: GABAPENTIN 100MG CAPSULE 100 MG PO (21:24)
[2024-11-13] MEDS: PATIENT'S OWN HOME MEDICATION (Oxycodone 10 mg tablet) 10 EACH PO (21:25)
[2024-11-13] MEDS: TAMSULOSIN 0.4MG CAPSULE 0.4 MG PO (21:25)
[2024-11-13] MEDS: PANTOPRAZOLE 40MG TABLET 40 MG PO (21:25)
[2024-11-13] MEDS: PATIENT'S OWN HOME MEDICATION (Apixaban [Eliquis] 2.5 mg tablet) 2.5 EACH PO (21:25)
[2024-11-14] VITALS (25 sets, daily range): BP systolic 96–134; BP diastolic 50–74; PULSE 66–92; RESP 14–22; TEMP 36.4–38.8; O2SAT 88–98; BMI 31.1
[2024-11-14] MEDS: MEROPENEM 1 GM in 0.9 % SODIUM CHLORIDE 100 ML IV ×3 (00:30→22:52)
[2024-11-14 06:19] LABS: Immature Granulocytes % 13.8 %; Mean Corpuscular HGB Conc 31.0 g/dL (31.8-35.4); Mean Corpuscular Hemoglobin 27.2 pg (27.0-31.2); Mean Corpuscular Volume 87.5 fl (80-94); Nucleated Red Blood Cells % 1.5 %; Platelet Count 99 K/mm3 (142-424); Red Blood Count 2.32 M/mm3 (4.60-6.20); Red Cell Distribution Width-SD 51.8 fL
[2024-11-14 06:21] LABS: Hematocrit 20.3 % (42.0-52.0); Hemoglobin 6.3 g/dL (14.1-18.0); White Blood Count 1.3 K/mm3 (4.8-10.8)
[2024-11-14 06:36] LABS: POC Glucose,Bedside 97 gm/dL (70-110)
[2024-11-14 06:36] LABS: Alanine Aminotransferase 17 U/L (12-78); Albumin Level 3.0 g/dl (3.5-5.0); Albumin/Globulin Ratio 1.0 (1.1-1.8); Alkaline Phosphatase 81 U/L (38-126); Anion Gap 10.6 mEq/L (5-15); Aspartate Amino Transferase 20 U/L (17-59); Bilirubin,Total 0.6 mg/dl (0.2-1.3); Blood Urea Nitrogen 58 mg/dl (9-20); Calcium 8.4 mg/dl (8.4-10.2); Carbon Dioxide 24 mmol/L (22.0-30.0); Chloride 108 mmol/L (98-107); Creatinine Clearance Estimated 34 mL/min (50-200); Creatinine,Serum 3.00 mg/dl (0.66-1.25); Estimated Glomerular Filt Rate 20 ml/min (>60); GFR (African American) 25 ML/MIN (>60); Globulin 2.9 g/dL (1.3-3.2); Glucose 86 mg/dl (74-100); Magnesium 1.7 mg/dl (1.6-2.3); Potassium 4.6 mmoL/L (3.5-5.1); Sodium 138 mmol/L (136-145); Total Protein,Serum 5.9 g/dl (6.3-8.2)
[2024-11-14 06:53] LABS: Procalcitonin 1.49 ng/mL (0.0-2.0)
[2024-11-14] MEDS: LIDOCAINE 5% TRANSDERMAL PATCH 1 EACH TD (08:37)
[2024-11-14] MEDS: TIMOLOL 0.5% OPTH SOLN 5ML OP (08:38)
[2024-11-14] MEDS: FINASTERIDE 5MG TABLET 5 MG PO (08:38)
[2024-11-14] MEDS: ESCITALOPRAM 10MG TABLET 5 MG PO (08:39)
[2024-11-14] MEDS: ISOSORBIDE MONO 30MG TAB.ER.24H 30 MG PO (08:40)
[2024-11-14] MEDS: OXYCODONE 5MG IMMEDIATE RELEASE TABLET 10 MG PO ×3 (08:40→20:34)
[2024-11-14] MEDS: CLOPIDOGREL 75MG TAB 75 MG PO (08:40)
[2024-11-14] MEDS: METOPROLOL SUCCINATE XL 100MG TABLET 100 MG PO (08:40)
[2024-11-14] MEDS: GABAPENTIN 100MG CAPSULE 100 MG PO ×2 (08:40→20:34)
--- NOTE | 2024-11-14 09:54 | HMH.PTEV ---
Physical Therapy Evaluation Rehab PT IP Evaluation Start: 11/13/24 13:08 Freq: ONCE Status: Active Protocol: Document 11/14/24 09:38 ANTWAN (Rec: 11/14/24 09:51 ANTWAN [id number]) Subjective/History History History Per H&P: [facility] and tremor this morning. Had 2 falls recently in the past week per report from [facility] jail. Just started chemo few weeks ago for lung cancer. Last course on Tuesday. And has been having increased flank pain and weakness since. Found to be hypoxic on arrival to the ER, normally wears oxygen at 2 L baseline. On workup in the ER, patient found to be septic with grossly abnormal urine, low white count at 2.8, and fever of 102. Medicine consulted for admission and further treatment of sepsis and UTI. Long-term indwelling catheter, complicated UTI. Has grown ESBL in the past. Subjective Subjective Pt resides at [facility] in [place]. Pt normally able to ambulate using a SPC. Pt uses a w/c for community distances. [facility] How much help from another person do you currently need... Turning from your A little back to your side while in a flat bed without using bedrails? Moving from lying on A little back to sitting on the side of a flat bed without using bedrails? Moving to and from a A little bed to a chair ( including a wheelchair)? Standing up from a A little chair using your arms? (e.g., wheelchair, bedside chair) Walking in hospital A lot room? Climbing 3-5 steps A lot with a railing? Mobility Score 16 Mobility Level [facility] Mobility 5 Stand (1 or more minutes) Mobility Calculator Rehab PT IP Eval Objective Appearance Patient Behavior Appropriate,Cooperative Patient Orientation Person,Situation Difficulty following none instructions Speech Pattern Clear Ambulation Patient Able to No Ambulate Balance Ability to Arise Able, uses arms to help Sitting Balance Steady, safe Standing Balance Steady, wide stance Dynamic Sitting Good Balance Ability Dynamic Standing Fair Balance Ability Transfers Bed Transfer Ability Moderate x 1 (50% assist) Sit to Stand Bed Minimal x 1 (25% assist) Transfer Ability Rehab PT IP prob,goals,plan Problems Date of Evaluation: 11/14/24 PT IP Problems Bed Mobility,Transfers,Gait,Balance,Self care,Safety Rehab Potential Rehab Potential Good Plan PT Intervention Plan Bed Mobility,Transfers,Gait,Balance,Self care,Safety, Therapeutic Exercise Other Intervention 1-2 times Plan PT Plan Frequency Daily Duration LOS Discharge Goals Bed Transfer Ability Supervision/Stand by Sit to Stand Chair Supervision/Stand by Transfer Ability Discharge Plan PT Discharge Plan Pt presents below his baseline in mobility and is at a risk for falls. PT recommending pt receive rehabilitation services upon d/c from [facility] to maximize safety and address deficits. Pt would benefit from skilled acute care PT while at [facility] to prevent further functional decline. Eval Complexity Eval Charge Codes 40838 - Moderate Complexity PHYSICIAN CERTIFICATION: I certify the specified therapy services for Edi Toussaint are required, authorized, and reviewed every 30 days.
--- NOTE | 2024-11-14 11:37 | P.EN_ITS ---
Advance care planning note: Active diagnosis: Lung cancer, recurrent; vision impairment, chronic indwelling catheter, recurrent UTIs, ESBL infections, pancytopenia, severe sepsis, ELMER on C KD The patient's active diagnoses are of sufficient risk that focused discussion on advanced care planning is indicated in order to allow the patient to thoughtfully consider personal goals of care; and, if situations arise that prevent the ability to personally give input, to ensure appropriate representation of their personal desires through documentation or informed surrogate decision makers. Discussion: Persons present and participating in discussion: Patient and myself Discussion: Extensive discussion about goals of care and if patient's condition worsens. Strong concern that patient is high risk for decompensation. Also has worsening cancer that was previously treated with radiation and has now come back and is undergoing treatment with chemotherapy. With his presentation for s epsis, high concern for decompensation. Patient has no POA or surrogate decision makers. Discussed goals of care, he wants to remain full code. Concern he does not fully understand what it means to be on a breathing machine but he wants to do everything possible to keep him alive and prolong life. Will continue to have goals of care discussions and honor patient's wish at this time. Discussed with case management the need to consider state guardian if patient becomes obtunded or no longer has capacity to make his own decisions. At this time however he does. Time spent: Total time spent [id number] in education and discussion directly related to advance care plannin minutes Edi Ramirez 11/14/2024 08:45-09:01
--- NOTE | 2024-11-14 11:37 | P.PN_ITS ---
Subjective *Date: 11/14/24 *Time: 18:37 Interval history: Patient still quite weak today. Necessitating 2 to 3 L oxygen. No nausea or vomiting. Labs this morning showed worsening anemia with hemoglobin 6.3. Denies chest pain. Denies any abdominal pain. Intermittently febrile Medical Exam Vital signs and Labs for Last 24 Hours: Vital Signs Temp Pulse Pulse Resp BP BP Pulse Ox 11/14/24 11:11 11/14/24 10:01 79 17 101/61 L 94 L 11/14/24 09:00 11/14/24 08:01 99.1 F 77 19 106/52 L 88 L 11/14/24 08:00 70 11/14/24 08:00 11/14/24 06:47 11/14/24 06:00 71 18 120/60 95 11/14/24 05:00 11/14/24 04:00 71 11/14/24 04:00 97.6 F 73 21 116/56 L 95 11/14/24 03:00 11/14/24 02:00 93 L 11/14/24 02:00 81 19 113/50 L 93 L 11/14/24 01:00 11/14/24 00:00 81 11/14/24 00:00 98.2 F 88 22 127/61 93 L 11/13/24 23:00 97.9 F 85 19 148/70 H 91 L 11/13/24 23:00 11/13/24 22:00 86 20 150/78 H 93 L 11/13/24 21:00 99.7 F H 76 19 150/74 H 95 11/13/24 21:00 11/13/24 20:00 72 11/13/24 20:00 95 11/13/24 18:53 11/13/24 18:00 66 20 130/64 95 11/13/24 17:00 11/13/24 16:00 57 L 18 105/62 L 90 L 11/13/24 16:00 97.6 F 61 20 105/62 L 98 11/13/24 16:00 54 L 11/13/24 15:00 11/13/24 14:00 98 11/13/24 12:46 96 11/13/24 12:18 99.0 F 11/13/24 12:14 99.4 F 63 20 102/58 L 11/13/24 12:01 17 102/58 L 11/13/24 12:00 97.9 F O2 Del Method O2 Flow Rate 11/14/24 11:11 Nasal Cannula 11/14/24 10:01 Nasal Cannula 2 11/14/24 09:00 Nasal Cannula 2 11/14/24 08:01 Nasal Cannula 2 11/14/24 08:00 11/14/24 08:00 Nasal Cannula 2 11/14/24 06:47 Nasal Cannula 2 11/14/24 06:00 Nasal Cannula 2 11/14/24 05:00 Nasal Cannula 2 11/14/24 04:00 11/14/24 04:00 Nasal Cannula 2 11/14/24 03:00 Nasal Cannula 2 11/14/24 02:00 Nasal Cannula 2 11/14/24 02:00 Nasal Cannula 2 11/14/24 01:00 Nasal Cannula 2 11/14/24 00:00 11/14/24 00:00 Nasal Cannula 2 11/13/24 23:00 Nasal Cannula 2 11/13/24 23:00 Nasal Cannula 2 11/13/24 22:00 Nasal Cannula 1 11/13/24 21:00 Nasal Cannula 1 11/13/24 21:00 Nasal Cannula 2 11/13/24 20:00 11/13/24 20:00 Nasal Cannula 2 11/13/24 18:53 Nasal Cannula 1 11/13/24 18:00 Nasal Cannula 1 11/13/24 17:00 Nasal Cannula 2 11/13/24 16:00 Nasal Cannula 2 11/13/24 16:00 Nasal Cannula 1 11/13/24 16:00 11/13/24 15:00 Nasal Cannula 1 11/13/24 14:00 Nasal Cannula 2 11/13/24 12:46 Nasal Cannula 2 11/13/24 12:18 11/13/24 12:14 Nasal Cannula 2 11/13/24 12:01 11/13/24 12:00 Intake and Output 11/13/24 11/14/24 11/14/24 23:59 07:59 15:59 Intake Total 200 / 1500 100 / 500 400 / 500 Output Total 2425 / 2425 450 / 450 Balance -2225 / -925 -350 / 50 400 / 50 Intake: Intake, Oral Amount 200 / 500 400 / 400 Intake, Total IV Amount 100 / 100 Meropenem 1 gm In 0.9 % Sodium 100 / 100 Chloride 100 ml @ 100 mls/hr IV Q12H [facility] Rx#:[id number] Output: Output, Urine Amount 2024 450 / 450 Output, Urine Amount (Catheter) 400 / 400 Jason 400 / 400 Other: Number of Unmeasured Voids 0 1 0 Weight 115.847 kg Patient Weight 11/14/24 23:59 Weight 115.847 kg Laboratory Results - last 24 hr 11/13/24 10:31: Urine Color Yellow, Urine Appearance Cloudy, Urine pH 6.0, Ur Specific V[place] 1.015, Urine Protein 2+ A, Urine Glucose (UA) Negative, Urine Ketones Negative, Urine Blood 3+ A, Urine Nitrate Negative, Urine Bilirubin Negative, Urine Urobilinogen 0.2, Ur Leukocyte Esterase 2+ A, Urine RBC 20-50, Urine WBC 50-100, Ur Squamous Epith Cells None, Urine Bacteria 4+ 11/13/24 13:40: Troponin I 0.03 11/13/24 16:44: POC Glucose 106 11/13/24 18:37: Troponin I 0.03 11/13/24 19:32: POC Glucose 133 H 11/14/24 04:52: WBC 1.3 L* D, RBC 2.32 L, Hgb 6.3 L*, Hct 20.3 L*, MCV 87.5, MCH 27.2, MCHC 31.0 L, RDW 16.3, Plt Count 99 L, MPV 10.2, Neut % (Auto) 60.0, Lymph % (Auto) 16.2, Dickinson % (Auto) 7.7, Eos % (Auto) 1.5, Baso % (Auto) 0.8, Neut # (Auto) 0.8 L*, Lymph # (Auto) 0.2 L, Dickinson # (Auto) 0.1, Eos # (Auto) 0.0, Baso # (Auto) 0.0, Sodium 138, Potassium 4.6, Chloride 108 H, Carbon Dioxide 24, Anion Gap 10.6, BUN 58 H, Creatinine 3.00 H, Estimated Creat Clear 34, Estimated GFR 20 L, Est GFR ( Amer) 25 L, Glucose 86 D, Calcium 8.4, Magnesium 1.7, Total Bilirubin 0.6, AST 20 D, ALT 17, Alkaline Phosphatase 81, Total Protein 5.9 L, Albumin 3.0 L D, Globulin 2.9, Albumin/Globulin Ratio 1.0 L, Procalcitonin 1.49 11/14/24 06:20: POC Glucose 97 11/14/24 07:08: Blood Type AB Positive, Antibody Screen Negative, Crossmatch (AHG) See Detail I & O for Labs for Last 24 Hours: Intake & Output 11/11/24 11/12/24 11/13/24 11/14/24 23:59 23:59 23:59 23:59 Intake Total 1500 / 1500 500 / 500 Output Total 2425 / 2425 450 / 450 Balance -925 / -925 50 / 50 Weight 111.584 kg 115.847 kg Microbiology Reports for the Last 24 Hours: Microbiology 11/13/24 11:00 Blood Blood Culture - Preliminary NO GROWTH AFTER 24 HOURS 11/13/24 10:31 Urine,Catheterized Urine Culture - Preliminary Gram Negative Rods 11/13/24 09:44 Blood Blood Culture - Preliminary NO GROWTH AFTER 24 HOURS Constitutional: Present mild distress, obese, chronically ill 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 Head: Present atraumatic and normocephalic Comment:: Vision impaired, eyes with opacification of corneas bilaterally Respiratory: Present rhonchi (Left upper lung field) and normal respiratory effort; Absent wheezes or crackles Cardiac: Present Reg Rate and Rhythm Comment:: Left chest tender to palpation GI: Present soft and normal bowel sounds; Absent distention or tenderness Extremities: Present normal inspection and full ROM Skin: Present intact; Absent erythema Neuro: Present Grossly Intact, alert, awake, oriented x 3 and moves all extremities Assessment and Plan *Assessment and plan (1) Severe sepsis: Status: Acute Category: Medical Code(s): A41.9 - Sepsis, unspecified organism; R65.20 - Severe sepsis without septic shock (2) ELMER (acute kidney injury): Status: Acute Category: Medical Code(s): N17.9 - Acute kidney failure, unspecified (3) Complicated UTI (urinary tract infection): Status: Acute Category: Medical Code(s): N39.0 - Urinary tract infection, site not specified (4) PAF (paroxysmal atrial fibrillation): Status: Acute Category: Medical Code(s): I48.0 - Paroxysmal atrial fibrillation (5) Lung cancer: Status: Acute Category: Medical Code(s): C34.90 - Malignant neoplasm of unspecified part of unspecified bronchus or lung (6) Obesity (BMI 30.0-34.9): Status: Chronic Category: Medical Code(s): E66.811 - Obesity, class 1 (7) COPD mixed type: Status: Acute Category: Medical Code(s): J44.9 - Chronic obstructive pulmonary disease, unspecified (8) Chronic hypoxic respiratory failure, on home oxygen therapy: Status: Acute Category: Medical Code(s): J96.11 - Chronic respiratory failure with hypoxia; Z99.81 - Dependence on supplemental oxygen (9) Polycystic kidney disease: Status: Acute Category: Medical Code(s): Q61.3 - Polycystic kidney, unspecified (10) Blind: Status: Acute Qualifiers: Right eye visual impairment category: right - unspecified blindness Left eye visual impairment category: left - unspecified blindness Qualified Code(s): H54.3 - Unqualified visual loss, both eyes Category: Medical Code(s): H54.7 - Unspecified visual loss (11) CKD (chronic kidney disease) stage 3, GFR 30-59 ml/min: Status: Chronic Category: Medical Code(s): N18.30 - Chronic kidney disease, stage 3 unspecified (12) Acute on chronic anemia: Status: Acute Category: Medical Code(s): D64.9 - Anemia, unspecified (13) Neutropenia: Problem Comment: Secondary to infection and chemotherapeutic drugs Status: Acute Category: Medical Code(s): D70.9 - Neutropenia, unspecified Plan 74-year-old male multiple comorbidities including CAD with PCI to LAD, lung cancer, chronic urinary retention with indwelling catheter, visual impairment, COPD, CHF, polycystic kidney disease, CKD 4. Presented to the ER with weakness. Found to be meeting sepsis criteria with white count of 2.8, Fever 102.4, and frankly abnormal urine with 4+ bacteria, 50-100 whites, 2+ leuk esterase and nitrate negative. Discussed case with ER physician, request admission for further management of sepsis. I decided to admit to the stepdown level of care for further treatment. Continuing broad-spectrum antibiotics. Worsening anemia today. Will transfuse. Worsening neutropenia. Patient's condition serious, prognosis guarded. Continue to have goals of care discussion, continues to want to be full code. Problems addressed as follows: Severe sepsis Complicated UTI secondary to chronic indwelling catheter Neutropenia - Continue meropenem 1 g IV twice daily, per chart review, previous cultures growing Klebsiella on 10/26 with multidrug resistance/ESBL. Sensitive to ertapenem and meropenem. - Urine culture growing gram-negative rods greater than 100,000 CFU - blood cultures pending - Catheter exchanged in the ER - Neutropenia worsening, white count 1.3. Coronary artery disease HFmrEF, chronic Paroxysmal A-fib - Perfusion scan from 09/10 with fixed perfusion defects. EF calculated at 43% - Heart cath performed 09/11/2024 with severe proximal and mid LAD disease. Received 3 contiguous stents. - Continue Lipitor 40 mg daily, metoprolol succinate 100 mg daily, Plavix 75 mg daily. Holding Eliquis in the setting of worsening anemia - Hold Jardiance in the setting of complicated UTI - Continue to monitor on telemetry -Consider resuming diuresis in the morning as patient stabilizes from sepsis Left upper lobe lung adenocarcinoma ? Former smoker, following with pulmonology and oncology closely. ? Completed radiation therapy, however mass showing progression. - Oncology began chemotherapy in the past few weeks. Last dose on Tuesday. Complicates his ability to fight infection. Stable oxygen requirement at this time of 2-3 L. - Continue home gabapentin 100 mg twice daily and oxycodone 10 mg as needed 3 times a day. Monitor for toxicity GERD: Continue home PPI. Polycystic kidney disease CKD 3b BPH - Baseline creatinine approximately 1.8-2.0. BUN 59 and creatinine 2.9 on presentation. Consistently about this morning with BUN 58, creatinine 3.0. Potassium 4.6, magnesium 1.7. Consistent with ELMER on CKD -Repeat CBC, CMP, magnesium ordered for the morning. Monitor for improvement in creatinine with fluid resuscitation - Continue chronic Jason, exchanged on admission - Continue home tamsulosin 0.4 mg nightly Anemia, worsening - Hemoglobin dropped to 6.3. Will transfuse 1 unit today. Goal hemoglobin greater than 7. Repeat H&H 2 hours after. Repeat CBC, CMP, magnesium ordered for the morning. -Worsening thrombocytopenia with platelets at 100. Holding anticoagulation History of seizure disorder, continue oxcarbazepine 300 mg twice daily Full code Cardiac diet SCDs
[2024-11-14] MEDS: 0.9 % SODIUM CHLORIDE 250 ML 25 ML IV (12:06)
[2024-11-14 12:14] LABS: Hypochromasia 1+; Total Cells Counted 25
[2024-11-14] MEDS: FLUTICASONE/UMECLIDIN/VILANTER 100/62.5/25MCG INHALER 1 PUFF IH (13:12)
[2024-11-14] MEDS: ACETAMINOPHEN 500MG TAB 500 MG PO (13:53)
--- NOTE | 2024-11-14 14:25 | PC.NURSE ---
Addendum entered by Nicole Steinberg RN 11/14/24 15:02: notified at 1432 of transfusion reaction work Original Note: Lab notified at this time of need for work up for a blood transfusion reaction.
[2024-11-14 17:00] LABS: Hematocrit 23.4 % (42.0-52.0)
[2024-11-14 17:08] LABS: Hemoglobin 7.4 g/dL (14.1-18.0)
[2024-11-14 17:48] LABS: POC Glucose,Bedside 145 gm/dL (70-110)
[2024-11-14] MEDS: PANTOPRAZOLE 40MG TABLET 40 MG PO (20:34)
[2024-11-14] MEDS: TAMSULOSIN 0.4MG CAPSULE 0.4 MG PO (20:34)
[2024-11-15] VITALS (28 sets, daily range): BP systolic 91–167; BP diastolic 54–84; PULSE 60–85; RESP 14–27; TEMP 37–39.6; O2SAT 86–97; BMI 31.1
[2024-11-15] MEDS: ACETAMINOPHEN 500MG TAB 500 MG PO ×2 (03:44→20:08)
[2024-11-15 06:07] LABS: Hematocrit 22.1 % (42.0-52.0); Hemoglobin 7.2 g/dL (14.1-18.0); Immature Granulocytes % 0.8 %; Mean Corpuscular HGB Conc 32.6 g/dL (31.8-35.4); Mean Corpuscular Hemoglobin 28.0 pg (27.0-31.2); Mean Corpuscular Volume 86.0 fl (80-94); Nucleated Red Blood Cells % 0 %; Platelet Count 72 K/mm3 (142-424); Red Blood Count 2.57 M/mm3 (4.60-6.20); Red Cell Distribution Width-SD 50.9 fL
[2024-11-15 06:08] LABS: White Blood Count 1.2 K/mm3 (4.8-10.8)
[2024-11-15 06:14] LABS: Alanine Aminotransferase 24 U/L (12-78); Albumin Level 3.1 g/dl (3.5-5.0); Albumin/Globulin Ratio 1.0 (1.1-1.8); Alkaline Phosphatase 109 U/L (38-126); Anion Gap 10.4 mEq/L (5-15); Aspartate Amino Transferase 29 U/L (17-59); Bilirubin,Total 0.6 mg/dl (0.2-1.3); Blood Urea Nitrogen 56 mg/dl (9-20); Calcium 7.8 mg/dl (8.4-10.2); Carbon Dioxide 24 mmol/L (22.0-30.0); Chloride 107 mmol/L (98-107); Creatinine Clearance Estimated 37 mL/min (50-200); Creatinine,Serum 2.80 mg/dl (0.66-1.25); Estimated Glomerular Filt Rate 22 ml/min (>60); GFR (African American) 27 ML/MIN (>60); Globulin 3.1 g/dL (1.3-3.2); Glucose 114 mg/dl (74-100); Magnesium 1.6 mg/dl (1.6-2.3); Potassium 4.4 mmoL/L (3.5-5.1); Sodium 137 mmol/L (136-145); Total Protein,Serum 6.2 g/dl (6.3-8.2)
[2024-11-15 06:34] LABS: Total Cells Counted 100
[2024-11-15 06:45] LABS: Procalcitonin 1.70 ng/mL (0.0-2.0)
[2024-11-15] MEDS: LIDOCAINE 5% TRANSDERMAL PATCH 1 EACH TD (08:22)
[2024-11-15] MEDS: FLUTICASONE/UMECLIDIN/VILANTER 100/62.5/25MCG INHALER 1 PUFF IH (08:24)
[2024-11-15] MEDS: TIMOLOL 0.5% OPTH SOLN 5ML OP (08:24)
[2024-11-15] MEDS: FINASTERIDE 5MG TABLET 5 MG PO (08:25)
[2024-11-15] MEDS: ISOSORBIDE MONO 30MG TAB.ER.24H 30 MG PO (08:26)
[2024-11-15] MEDS: METOPROLOL SUCCINATE XL 100MG TABLET 100 MG PO (08:26)
[2024-11-15] MEDS: CLOPIDOGREL 75MG TAB 75 MG PO (08:26)
[2024-11-15] MEDS: ESCITALOPRAM 10MG TABLET 5 MG PO (08:26)
[2024-11-15] MEDS: OXYCODONE 5MG IMMEDIATE RELEASE TABLET 10 MG PO ×3 (08:29→20:04)
[2024-11-15] MEDS: GABAPENTIN 100MG CAPSULE 100 MG PO ×2 (08:29→20:04)
[2024-11-15] MEDS: MEROPENEM 1 GM in 0.9 % SODIUM CHLORIDE 100 ML IV (11:30)
--- NOTE | 2024-11-15 12:23 | EXP.ACUTE.PN ---
Subjective *Date: 11/15/24 *Time: 18:02 Interval history: Still quite weak today. Having intermittent fevers. Temperature 101.9 this morning. Denies nausea or vomiting. More frail than previous visits on my evaluation. Stable on 3 L oxygen Medical Exam Vital signs and Labs for Last 24 Hours: Vital Signs Temp Pulse Resp BP Pulse Ox O2 Del Method O2 Flow Rate 11/15/24 12:02 98.6 F 65 16 129/69 97 Nasal Cannula 3 11/15/24 12:00 70 11/15/24 11:00 Nasal Cannula 3 11/15/24 10:19 71 20 96/56 L 90 L Nasal Cannula 3 11/15/24 09:00 Nasal Cannula 2 11/15/24 08:00 70 11/15/24 08:00 Nasal Cannula 3 11/15/24 08:00 99.2 F 81 22 91/56 L 91 L Nasal Cannula 3 11/15/24 07:00 Nasal Cannula 3 11/15/24 06:01 111/55 L 11/15/24 06:00 82 22 93 L 11/15/24 05:00 83 21 94 L 11/15/24 05:00 Nasal Cannula 4 11/15/24 04:00 137/68 11/15/24 04:00 84 21 93 L 11/15/24 04:00 84 11/15/24 04:00 101.9 F H 11/15/24 03:00 Nasal Cannula 3 11/15/24 02:00 93 L Nasal Cannula 3 11/15/24 02:00 136/84 11/15/24 02:00 81 19 86 L Nasal Cannula 2 11/15/24 01:00 Nasal Cannula 2 11/15/24 00:06 100.2 F H 75 14 121/64 94 L Nasal Cannula 3 11/15/24 00:00 78 11/14/24 23:00 Nasal Cannula 2 11/14/24 22:01 66 14 130/71 98 Nasal Cannula 2 11/14/24 20:57 Nasal Cannula 3 11/14/24 20:01 98.9 F 68 17 123/68 94 L Nasal Cannula 3 11/14/24 20:00 66 11/14/24 20:00 95 Nasal Cannula 3 11/14/24 19:01 98.9 F 75 18 96/56 L 93 L Nasal Cannula 3 11/14/24 18:37 Nasal Cannula 3 11/14/24 18:00 79 19 114/67 95 Nasal Cannula 2 11/14/24 17:00 Nasal Cannula 3 11/14/24 16:00 85 11/14/24 16:00 99.0 F 80 18 104/51 L 92 L Nasal Cannula 2 11/14/24 15:13 100.6 F H 80 20 115/56 L 90 L 11/14/24 15:00 Nasal Cannula 2 11/14/24 14:27 Nasal Cannula 2 11/14/24 14:13 101.8 F H 83 20 134/74 90 L 11/14/24 14:13 101.8 F H 83 20 134/74 90 L 11/14/24 14:00 85 16 125/68 90 L Nasal Cannula 2 11/14/24 13:45 101.0 F H 92 H 18 124/70 92 L 11/14/24 13:00 Nasal Cannula 2 11/14/24 12:45 99.1 F 89 20 105/61 L 90 L 11/14/24 12:30 99.0 F 86 20 110/57 L 92 L Intake and Output 11/14/24 11/15/24 11/15/24 23:59 07:59 15:59 Intake Total 400 / 1492.917 240 / 720 480 / 720 Output Total 1000 / 1750 1200 / 1200 Balance -600 / -257.083 -960 / -480 480 / -480 Intake: Intake, Oral Amount 300 / 1140 240 / 720 480 / 720 Intake, Total IV Amount 100 / 352.917 Meropenem 1 gm In 0.9 % Sodium 100 / 300 Chloride 100 ml @ 100 mls/hr IV Q12H [facility] Rx#:[id number] Output: Output, Urine Amount 900 / 900 Output, Urine Amount (Catheter) 1000 / 1300 300 / 300 Jason 1000 / 1300 300 / 300 Other: Number of Unmeasured Voids 0 0 0 Weight 115.8 kg Patient Weight 11/15/24 23:59 Weight 115.8 kg Laboratory Results - last 24 hr 11/14/24 07:08: Crossmatch (AHG) See Detail 11/14/24 14:43: Direct Antiglob Test Negative, Hemolysis Bld Bag Check No, Pre-Trans Blood Type Ab postiive, Pre-Trans Vis Hemolysis No, Pre-Trans Antibody Scrn Negative, Post-Trans Blood Type Ab postiive, Post-Tx Visible Hemolys No, Post-Trans Antibody Scrn Negative, Reaction Path Interpret Other 11/14/24 16:24: Hgb 7.4 L D, Hct 23.4 L 11/14/24 17:41: POC Glucose 145 H 11/15/24 04:51: WBC 1.2 L*, RBC 2.57 L, Hgb 7.2 L, Hct 22.1 L, MCV 86.0, MCH 28.0, MCHC 32.6, RDW 16.5, Plt Count 72 L D, MPV 10.5 H, Neut % (Auto) 78.1, Lymph % (Auto) 10.6, Steele % (Auto) 8.1, Eos % (Auto) 1.6, Baso % (Auto) 0.8, Neut # (Auto) 1.0 L, Lymph # (Auto) 0.1 L, Steele # (Auto) 0.1, Eos # (Auto) 0.0, Baso # (Auto) 0.0, Total Counted 100, Neutrophils % (Manual) 80 H, Lymphocytes % (Manual) 15, Atypical Lymphs % 5, Sodium 137, Potassium 4.4, Chloride 107, Carbon Dioxide 24, Anion Gap 10.4, BUN 56 H, Creatinine 2.80 H, Estimated Creat Clear 37, Estimated GFR 22 L, Est GFR ( Amer) 27 L, Glucose 114 H D, Calcium 7.8 L, Magnesium 1.6, Total Bilirubin 0.6, AST 29 D, ALT 24 D, Alkaline Phosphatase 109, Total Protein 6.2 L, Albumin 3.1 L, Globulin 3.1, Albumin/Globulin Ratio 1.0 L, Procalcitonin 1.70 I & O for Labs for Last 24 Hours: Intake & Output 11/12/24 11/13/24 11/14/24 11/15/24 23:59 23:59 23:59 23:59 Intake Total 1500 / 1500 1252.917 / 1492.917 720 / 720 Output Total 2425 / 2425 1450 / 1750 1200 / 1200 Balance -925 / -925 -197.083 / -257.083 -480 / -480 Weight 111.584 kg 115.847 kg 115.8 kg Microbiology Reports for the Last 24 Hours: Microbiology 11/13/24 11:00 Blood Blood Culture - Preliminary NO GROWTH AFTER 48 HOURS 11/13/24 09:44 Blood Blood Culture - Preliminary NO GROWTH AFTER 48 HOURS 11/13/24 10:31 Urine,Catheterized Urine Culture - Preliminary Gram Negative Rods Constitutional: Present mild distress, obese, chronically ill appearing and cooperative Head: Present atraumatic and normocephalic Comment:: Vision impaired, eyes with opacification of corneas bilaterally Respiratory: Present rhonchi (Left upper lung field) and normal respiratory effort; Absent wheezes or crackles Cardiac: Present Reg Rate and Rhythm Comment:: Left chest tender to palpation GI: Present soft and normal bowel sounds; Absent distention or tenderness Extremities: Present normal inspection and full ROM Skin: Present intact; Absent erythema Neuro: Present Grossly Intact, alert, awake, oriented x 3 and moves all extremities Assessment and Plan *Assessment and plan (1) Severe sepsis: Status: Acute Category: Medical Code(s): A41.9 - Sepsis, unspecified organism; R65.20 - Severe sepsis without septic shock (2) ELMER (acute kidney injury): Status: Acute Category: Medical Code(s): N17.9 - Acute kidney failure, unspecified (3) Complicated UTI (urinary tract infection): Status: Acute Category: Medical Code(s): N39.0 - Urinary tract infection, site not specified (4) PAF (paroxysmal atrial fibrillation): Status: Acute Category: Medical Code(s): I48.0 - Paroxysmal atrial fibrillation (5) Lung cancer: Status: Acute Category: Medical Code(s): C34.90 - Malignant neoplasm of unspecified part of unspecified bronchus or lung (6) Obesity (BMI 30.0-34.9): Status: Chronic Category: Medical Code(s): E66.811 - Obesity, class 1 (7) COPD mixed type: Status: Acute Category: Medical Code(s): J44.9 - Chronic obstructive pulmonary disease, unspecified (8) Chronic hypoxic respiratory failure, on home oxygen therapy: Status: Acute Category: Medical Code(s): J96.11 - Chronic respiratory failure with hypoxia; Z99.81 - Dependence on supplemental oxygen (9) Polycystic kidney disease: Status: Acute Category: Medical Code(s): Q61.3 - Polycystic kidney, unspecified (10) Blind: Status: Acute Qualifiers: Left eye visual impairment category: left - unspecified blindness Right eye visual impairment category: right - unspecified blindness Qualified Code(s): H54.3 - Unqualified visual loss, both eyes Category: Medical Code(s): H54.7 - Unspecified visual loss (11) CKD (chronic kidney disease) stage 3, GFR 30-59 ml/min: Status: Chronic Category: Medical Code(s): N18.30 - Chronic kidney disease, stage 3 unspecified (12) Acute on chronic anemia: Status: Acute Category: Medical Code(s): D64.9 - Anemia, unspecified (13) Neutropenia: Problem Comment: Secondary to infection and chemotherapeutic drugs Status: Acute Category: Medical Code(s): D70.9 - Neutropenia, unspecified Plan 74-year-old male multiple comorbidities including CAD with PCI to LAD, lung cancer, chronic urinary retention with indwelling catheter, visual impairment, COPD, CHF, polycystic kidney disease, CKD 4. Presented to the ER with weakness. Found to be meeting sepsis criteria with white count of 2.8, Fever 102.4, and frankly abnormal urine with 4+ bacteria, 50-100 whites, 2+ leuk esterase and nitrate negative. Discussed case with ER physician, request admission for further management of sepsis. I decided to admit to the stepdown level of care for further treatment. Continuing broad-spectrum antibiotics. Worsening anemia today. Will transfuse. Worsening neutropenia. Patient's condition serious, prognosis guarded. Continue to have goals of care discussion, continues to want to be full code. Problems addressed as follows: Severe sepsis Complicated UTI secondary to chronic indwelling catheter Neutropenia - Blood cultures remain negative at 48 hours, urine culture positive for greater than 100,000 CFU's of gram-negative rods. Previous cultures grew Klebsiella, sensitive to meropenem. Continue meropenem 1 g every 12 hours pending speciation and sensitivity - previous cultures growing Klebsiella on 10/26 with multidrug resistance/ESBL. Sensitive to ertapenem and meropenem. - Catheter exchanged in the ER - Neutropenia worsening, white count 1.2, appears to be hitting his fredy. Repeat CBC, CMP, magnesium ordered for the morning - Continue standard precautions - Procalcitonin 1.7, repeat level ordered for the morning. Coronary artery disease HFmrEF, chronic Paroxysmal A-fib - Perfusion scan from 09/10 with fixed perfusion defects. EF calculated at 43% - Heart cath performed 09/11/2024 with severe proximal and mid LAD disease. Received 3 contiguous stents. - Continue Lipitor 40 mg daily, metoprolol succinate 100 mg daily, Plavix 75 mg daily. Holding Eliquis in the setting of worsening anemia - Hold Jardiance in the setting of complicated UTI - Continue to monitor on telemetry -Consider resuming diuresis in the morning as patient stabilizes from sepsis Left upper lobe lung adenocarcinoma ? Former smoker, following with pulmonology and oncology closely. ? Completed radiation therapy, however mass showing progression. - Oncology began chemotherapy in the past few weeks. Last dose on Tuesday. Complicates his ability to fight infection. Stable oxygen requirement at this time of 2-3 L. - Continue home gabapentin 100 mg twice daily and oxycodone 10 mg as needed 3 times a day. Monitor for toxicity GERD: Continue home PPI. Polycystic kidney disease CKD 3b BPH - Baseline creatinine approximately 1.8-2.0. BUN 59 and creatinine 2.9 on presentation. BUN 56, creatinine 2.8 this morning. Potassium 4.4, magnesium 1.6. - Continue chronic Jason, exchanged on admission - Continue home tamsulosin 0.4 mg nightly Anemia, worsening Thrombocytopenia -esponded well to transfusion yesterday. Hemoglobin stable at 7.2. -Worsening thrombocytopenia with platelets at 72, holding anticoagulation History of seizure disorder, continue oxcarbazepine 300 mg twice daily Full code Cardiac diet SCDs
[2024-11-15] MEDS: PANTOPRAZOLE 40MG TABLET 40 MG PO (20:04)
[2024-11-15] MEDS: TAMSULOSIN 0.4MG CAPSULE 0.4 MG PO (20:04)
[2024-11-16] VITALS (40 sets, daily range): BP systolic 96–165; BP diastolic 50–93; PULSE 63–101; RESP 13–24; TEMP 36.7–39.2; O2SAT 85–96; BMI 32.1; BMI 31.2
[2024-11-16] MEDS: FLUTICASONE/UMECLIDIN/VILANTER 100/62.5/25MCG INHALER 1 PUFF IH (06:12)
[2024-11-16 06:21] LABS: Alanine Aminotransferase 25 U/L (12-78); Albumin Level 3.2 g/dl (3.5-5.0); Albumin/Globulin Ratio 1.0 (1.1-1.8); Alkaline Phosphatase 116 U/L (38-126); Anion Gap 13.7 mEq/L (5-15); Aspartate Amino Transferase 29 U/L (17-59); Bilirubin,Total 0.8 mg/dl (0.2-1.3); Blood Urea Nitrogen 59 mg/dl (9-20); Calcium 8.1 mg/dl (8.4-10.2); Carbon Dioxide 22 mmol/L (22.0-30.0); Chloride 107 mmol/L (98-107); Creatinine Clearance Estimated 36 mL/min (50-200); Creatinine,Serum 3.00 mg/dl (0.66-1.25); Estimated Glomerular Filt Rate 20 ml/min (>60); GFR (African American) 25 ML/MIN (>60); Globulin 3.1 g/dL (1.3-3.2); Glucose 99 mg/dl (74-100); Potassium 4.7 mmoL/L (3.5-5.1); Sodium 138 mmol/L (136-145); Total Protein,Serum 6.3 g/dl (6.3-8.2)
[2024-11-16 06:38] LABS: Hematocrit 22.1 % (42.0-52.0); Hemoglobin 7.1 g/dL (14.1-18.0); Immature Granulocytes % 1.5 %; Mean Corpuscular HGB Conc 32.1 g/dL (31.8-35.4); Mean Corpuscular Hemoglobin 27.8 pg (27.0-31.2); Mean Corpuscular Volume 86.7 fl (80-94); Nucleated Red Blood Cells % 0 %; Platelet Count 52 K/mm3 (142-424); Red Blood Count 2.55 M/mm3 (4.60-6.20); Red Cell Distribution Width-SD 52.0 fL; White Blood Count 2.0 K/mm3 (4.8-10.8)
[2024-11-16] MEDS: ACETAMINOPHEN 500MG TAB 500 MG PO ×2 (07:21→11:31)
--- NOTE | 2024-11-16 07:23 | PC.NURSE ---
Patient running fever of 102.3 this morning at shift change. Blankets were removed, fan turned on in the room to circulate and patient was given tylenol to help bring his temp down.
--- NOTE | 2024-11-16 07:54 | XR_ITS ---
FINAL REPORT CLINICAL HISTORY: SOB, hypoxia COMPARISON: 11/13/2024 FINDINGS: A portable view of the chest was obtained. The heart is mildly enlarged but stable.. Worsening left upper lobe opacity is concerning for pneumonia. There is a small left pleural effusion. There is no pneumothorax. IMPRESSION: Worsening left upper lobe opacity concerning for pneumonia with a small left pleural effusion. Reviewed, Interpreted and Dictated by Gale Mcneill MD Transcribed by Sayra Bliss Authenticated and [facility]
[2024-11-16 07:55] LABS: Magnesium 1.7 mg/dl (1.6-2.3)
[2024-11-16 08:00] LABS: C-Reactive Protein 255.7 mg/L (0-4)
--- NOTE | 2024-11-16 08:05 | PC.NURSE ---
0730 due to patients oral temperature of 102.3 nurse was notified, fan was turned on and blankets were removed from patient to promote temperature to come down. 0806 temperature has started to trend down with oral temp 100.3 will continue to monitor patients temperature. call light is within reach and no needs were voiced at this time
[2024-11-16 08:12] LABS: Procalcitonin 1.86 ng/mL (0.0-2.0)
[2024-11-16] MEDS: LIDOCAINE 5% TRANSDERMAL PATCH 1 EACH TD (08:12)
[2024-11-16] MEDS: FINASTERIDE 5MG TABLET 5 MG PO (08:12)
[2024-11-16] MEDS: METOPROLOL SUCCINATE XL 100MG TABLET 100 MG PO (08:13)
[2024-11-16] MEDS: ESCITALOPRAM 10MG TABLET 5 MG PO (08:13)
[2024-11-16] MEDS: ISOSORBIDE MONO 30MG TAB.ER.24H 30 MG PO (08:13)
[2024-11-16] MEDS: TIMOLOL 0.5% OPTH SOLN 5ML OP (08:16)
[2024-11-16 08:18] LABS: Hypochromasia 1+; Total Cells Counted 25
--- NOTE | 2024-11-16 08:34 | PC.NURSE ---
Aminata with radiology taken chest x ray at this time
[2024-11-16] MEDS: CLOPIDOGREL 75MG TAB 75 MG PO (08:39)
--- NOTE | 2024-11-16 08:50 | EXP.PHA.PN ---
Subjective *Date: 11/16/24 *Time: 08:50 Medical Exam Vital signs and Labs for Last 24 Hours: Vital Signs Temp Pulse Resp BP Pulse Ox O2 Del Method O2 Flow Rate 11/16/24 08:04 100.3 F H 11/16/24 08:02 88 24 150/93 H 90 L Nasal Cannula 4 11/16/24 08:00 91 L Nasal Cannula 6 11/16/24 08:00 90 11/16/24 07:30 102.3 F H 11/16/24 07:00 Nasal Cannula 3 11/16/24 06:01 72 95 11/16/24 06:01 137/76 11/16/24 06:00 99.8 F H 69 16 137/76 95 11/16/24 05:16 160/78 H 11/16/24 05:16 68 92 L 11/16/24 05:01 70 14 85 L 11/16/24 05:01 165/91 H 11/16/24 05:00 Nasal Cannula 3 11/16/24 04:03 98.6 F 65 16 121/58 L 95 Nasal Cannula 11/16/24 04:03 76 16 87 L 11/16/24 04:00 76 11/16/24 04:00 66 18 87 L 11/16/24 03:29 138/81 11/16/24 03:29 68 17 86 L 11/16/24 03:00 Nasal Cannula 3 11/16/24 02:01 96/66 L 11/16/24 02:01 98.8 F 74 14 96/66 L 89 L 11/16/24 02:00 Nasal Cannula 3 11/16/24 02:00 81 13 94 L 11/16/24 01:01 66 16 111/56 L 94 L 11/16/24 01:01 111/56 L 11/16/24 01:00 Nasal Cannula 3 11/16/24 00:01 120/69 11/16/24 00:01 66 14 94 L 11/16/24 00:00 66 11/16/24 00:00 99.2 F 66 15 120/69 95 11/15/24 23:00 109/60 L 11/15/24 23:00 67 18 91 L 11/15/24 23:00 Nasal Cannula 3 11/15/24 22:00 102/54 L 11/15/24 22:00 76 19 92 L 11/15/24 21:23 100.4 F H 11/15/24 21:01 101.2 F H 85 105/57 L 91 L 11/15/24 21:01 105/57 L 11/15/24 21:00 Nasal Cannula 3 11/15/24 20:00 103.3 F H 82 22 130/71 91 L 11/15/24 20:00 130/71 11/15/24 20:00 Nasal Cannula 3 11/15/24 20:00 80 11/15/24 19:45 81 23 92 L 11/15/24 19:30 80 18 94 L 11/15/24 19:15 81 23 92 L 11/15/24 19:01 131/83 11/15/24 19:01 79 27 H 93 L 11/15/24 19:00 80 21 94 L 11/15/24 18:56 Nasal Cannula 3 11/15/24 18:45 81 24 92 L 11/15/24 18:31 20 11/15/24 18:01 77 23 167/74 H 91 L Nasal Cannula 3 11/15/24 17:00 Nasal Cannula 3 11/15/24 16:20 99.6 F 65 16 125/79 94 L Nasal Cannula 3 11/15/24 16:01 99.6 F 64 18 127/73 96 Nasal Cannula 3 11/15/24 16:00 60 11/15/24 15:00 Nasal Cannula 3 11/15/24 14:01 66 20 108/72 L 95 Nasal Cannula 3 11/15/24 14:00 Nasal Cannula 3 11/15/24 13:04 Nasal Cannula 3 11/15/24 12:02 98.6 F 65 16 129/69 97 Nasal Cannula 3 11/15/24 12:00 70 11/15/24 11:00 Nasal Cannula 3 11/15/24 10:19 71 20 96/56 L 90 L Nasal Cannula 3 11/15/24 09:00 Nasal Cannula 2 Intake and Output 11/15/24 11/16/24 11/16/24 23:59 07:59 15:59 Intake Total 100 / 1340 100 / 670 570 / 670 Output Total 800 / 2300 900 / 900 Balance -700 / -960 -800 / -230 570 / -230 Intake: Intake, Oral Amount 100 / 1240 570 / 570 Intake, Total IV Amount 100 / 100 Meropenem 1 gm In 0.9 % Sodium 100 / 100 Chloride 100 ml @ 100 mls/hr IV Q[facility] Rx#:[id number] Output: Output, Urine Amount 800 / 2000 300 / 300 Output, Urine Amount (Catheter) 600 / 600 Jason 600 / 600 Other: Number of Unmeasured Voids 1 1 0 Weight 119.862 kg Patient Weight 11/16/24 23:59 Weight 119.862 kg Laboratory Results - last 24 hr 11/16/24 04:52: WBC 2.0 L D, RBC 2.55 L, Hgb 7.1 L, Hct 22.1 L, MCV 86.7, MCH 27.8, MCHC 32.1, RDW 16.4, Plt Count 52 L D, MPV 10.4, Neut % (Auto) 77.7, Lymph % (Auto) 11.7, [place] % (Auto) 7.6, Eos % (Auto) 1.5, Baso % (Auto) 0.0 L, Neut # (Auto) 1.5 L, Lymph # (Auto) 0.2 L, [place] # (Auto) 0.2, Eos # (Auto) 0.0, Baso # (Auto) 0.0, Total Counted 25, Neutrophils % (Manual) 68, Lymphocytes % (Manual) 28, Monocytes % (Manual) 4, Platelet Estimate Moderate decrease, Hypochromasia 1+, Sodium 138, Potassium 4.7, Chloride 107, Carbon Dioxide 22, Anion Gap 13.7, BUN 59 H, Creatinine 3.00 H, Estimated Creat Clear 36, Estimated GFR 20 L, Est GFR ( Amer) 25 L, Glucose 99, Calcium 8.1 L, Magnesium 1.7, Total Bilirubin 0.8, AST 29, ALT 25, Alkaline Phosphatase 116, C-Reactive Protein 255.7 H, Total Protein 6.3, Albumin 3.2 L, Globulin 3.1, Albumin/Globulin Ratio 1.0 L, Procalcitonin 1.86 I & O for Labs for Last 24 Hours: Intake & Output 11/13/24 11/14/24 11/15/24 11/16/24 23:59 23:59 23:59 23:59 Intake Total 1500 / 1500 1252.917 / 8817.771 1827 / 1340 670 / 670 Output Total 2425 / 2425 1450 / 1750 1999 / 2300 900 / 900 Balance -925 / -925 -197.083 / -257.083 -660 / -960 -230 / -230 Weight 111.584 kg 115.847 kg 115.8 kg 119.862 kg Microbiology Reports for the Last 24 Hours: Microbiology 11/13/24 11:00 Blood Blood Culture - Preliminary NO GROWTH AFTER 48 HOURS 11/13/24 09:44 Blood Blood Culture - Preliminary NO GROWTH AFTER 48 HOURS The patient's infection will respond to the chosen ABx?: Yes (BLOOD CX = NO GROWTH AT 48 HRS, URINE CX = GRAM NEGATIVE RODS, ID/SENS PEND) Is the patient receiving the right drug, dose, and route?: Yes Could a more targeted ABx be ordered?: No How long ABx needed (days)?: 7
[2024-11-16] MEDS: GABAPENTIN 100MG CAPSULE 100 MG PO ×2 (09:00→21:14)
[2024-11-16] MEDS: OXYCODONE 5MG IMMEDIATE RELEASE TABLET 10 MG PO ×3 (09:00→21:14)
--- NOTE | 2024-11-16 09:03 | PC.NURSE ---
0903 ice packs were placed on patients left groin area and right axillary area. will monitor skin and rotate ice packs every 30 minutes. nurse is aware of oral temperature rising to 101.3
[2024-11-16 09:30] LABS: Free T4 (Free Thyroxine) 1.25 ng/dl (0.78-2.19)
--- NOTE | 2024-11-16 09:37 | PC.NURSE ---
0930 ice packs were rotated. one is on left axillary site and the other is on the right groin site. call light is within reach and patient is left side lying, no requests were voiced at this time.
[2024-11-16 09:41] LABS: Adenovirus,PCR Not Detected (NotDetected); Chlamydophila Pneumoniae, PCR Not Detected (NotDetected); Coronavirus 19, PCR Not Detected (NotDetected); Coronovirus HKU1,PCR Not Detected (NotDetected); Influenza A, PCR Not Detected (NotDetected); Influenza AH1, 2009 Not Detected (NotDetected); Influenza AH1, PCR Not Detected (NotDetected); Influenza AH3,PCR Not Detected (NotDetected); Influenza B, PCR Not Detected (NotDetected); Mycoplasma Pneumoniae, PCR Not Detected (NotDetected); Parainfluenza 1, PCR Not Detected (NotDetected); Parainfluenza 2, PCR Not Detected (NotDetected); Parainfluenza 3, PCR Not Detected (NotDetected); Parainfluenza 4, PCR Not Detected (NotDetected)
--- NOTE | 2024-11-16 10:15 | PC.NURSE ---
Called Onesimo Rasmussen MD to get order for Jose Daniel Paw due to patients temp not coming down after given tylenol, and also applying cold packs to the arm pits and groin. Initial temp was 102.3. Next temp was down to 100.3 then at 0930 temp was back up to 102.7 orally, rectal temp was obtained and it was 101.7. Jose Daniel paw was placed on patient and is now actively cooling patient. temp will be checked every 30 mins
--- NOTE | 2024-11-16 10:17 | PC.NURSE ---
ice packs removed at this time. rodger hugger is placed on patient on the cooling setting. will continue to monitor temperature rectally every hour.
[2024-11-16] MEDS: POLYETHYLENE GLYCOL 3350 17 GM PACKET 34 GM PO (11:00)
[2024-11-16] MEDS: MEROPENEM 1 GM in 0.9 % SODIUM CHLORIDE 100 ML IV ×2 (11:00)
[2024-11-16] MEDS: IPRATROPIUM/ALBUTEROL 3 ML NEB IH ×3 (11:05→23:21)
--- NOTE | 2024-11-16 11:26 | PC.NURSE ---
Rectal temp down to 101.0 F rdoger paw still on.
--- NOTE | 2024-11-16 12:40 | PC.NURSE ---
Picked up the 1st unit of blood from the lab at 1240.
[2024-11-16] MEDS: 0.9 % SODIUM CHLORIDE 250 ML 25 ML IV (12:53)
[2024-11-16 16:07] LABS: Hematocrit 22.3 % (42.0-52.0); Hemoglobin 7.2 g/dL (14.1-18.0)
--- NOTE | 2024-11-16 16:20 | PC.NURSE ---
1 unit of blood transfused and H/H obtained an hour after. Patients H/H went up to 7.2 from 7.1. Occult stool was also obtained to rule out gi bleed. It was sent to the lab. Onesimo Rasmussen MD was called. At this time he wants to just check patients H/H in the am and if needed will transfuse again.
[2024-11-16 16:52] LABS: Occult Blood,Stool Negative (Negative)
--- NOTE | 2024-11-16 18:17 | P.PN_ITS ---
Subjective *Date: 11/16/24 *Time: 18:17 Interval history: Patient doing well, no acute complaints today. Denies shortness of breath, chest pain. Exam Data for Last 24 hours Vital signs and Labs for Last 24 Hours: Temp Pulse Resp BP Pulse Ox O2 Del Method O2 Flow Rate 98.0 F 63 18 107/57 L 93 L Nasal Cannula 1.5 11/16/24 16:01 11/16/24 18:09 11/16/24 16:01 11/16/24 16:11/16/24 18:11/16/24 18:11/16/24 18:09 Laboratory Results - last 24 hr 11/14/24 07:08: Blood Type AB Positive, Antibody Screen Negative, Crossmatch ([facility]) See Detail 11/14/24 14:43: Crossmatch ([facility]) See Detail 11/16/24 04:52: WBC 2.0 L D, RBC 2.55 L, Hgb 7.1 L, Hct 22.1 L, MCV 86.7, MCH 27.8, MCHC 32.1, RDW 16.4, Plt Count 52 L D, MPV 10.4, Neut % (Auto) 77.7, Lymph % (Auto) 11.7, [place] % (Auto) 7.6, Eos % (Auto) 1.5, Baso % (Auto) 0.0 L, Neut # (Auto) 1.5 L, Lymph # (Auto) 0.2 L, [place] # (Auto) 0.2, Eos # (Auto) 0.0, Baso # (Auto) 0.0, Total Counted 25, Neutrophils % (Manual) 68, Lymphocytes % (Manual) 28, Monocytes % (Manual) 4, Platelet Estimate Moderate decrease, Hypochromasia 1+, Sodium 138, Potassium 4.7, Chloride 107, Carbon Dioxide 22, Anion Gap 13.7, BUN 59 H, Creatinine 3.00 H, Estimated Creat Clear 36, Estimated GFR 20 L, Est GFR ( Amer) 25 L, Glucose 99, Calcium 8.1 L, Magnesium 1.7, Total Bilirubin 0.8, AST 29, ALT 25, Alkaline Phosphatase 116, C-Reactive Protein 255.7 H, Total Protein 6.3, Albumin 3.2 L, Globulin 3.1, Albumin/Globulin Ratio 1.0 L, Procalcitonin 1.86, Free T4 1.25 11/16/24 09:27: Chlamy pneumoniae PCR Not detected, Adenovirus (PCR) Not detected, B. pertussis DNA (PCR) Not detected, Coronavirus OC43 (PCR) Not detected, Coronavirus HKU1 (PCR) Not detected, Coronavirus 229E (PCR) Not detected, SARS-CoV-2 (PCR) Not detected, Coronavirus NL63 (PCR) Not detected, Human Metapneumovir PCR Not detected, Influenza A (H1) PCR Not detected, Influ A (H1N1/09) PCR Not detected, Influenza A (H3) PCR Not detected, Influenza Type A (PCR) Not detected, Influenza Type B (PCR) Not detected, M. pneumoniae (PCR) Not detected, Parainfluenza 1 (PCR) Not detected, Parainfluenza 2 (PCR) Not detected, Parainfluenza 3 (PCR) Not detected, Parainfluenza 4 (PCR) Not detected, RSV (PCR) Not detected, Entero/Rhino (PCR) Not detected 11/16/24 15:55: Stool Occult Blood Negative 11/16/24 16:00: Hgb 7.2 L, Hct 22.3 L I & O for Last 24 hours: Intake & Output 11/13/24 11/14/24 11/15/24 11/16/24 23:59 23:59 23:59 23:59 Intake Total 1500 / 1500 1252.917 / 7052.208 8181 / 1340 2213.333 / 2213.333 Output Total 2425 / 2425 1450 / 1750 2000 / 2300 1375 / 1375 Balance -925 / -925 -197.083 / -257.083 -660 / -960 838.333 / 838.333 Weight 111.584 kg 115.847 kg 115.8 kg 116.29 kg Microbiology Reports for the Last 24 Hours: Microbiology 11/13/24 10:31 Urine,Catheterized Urine Culture - Final Klebsiella pneumoniae Constitutional Constitutional: no acute distress Comments: Legally blind. *Routine HEENT Exam Head: Present normocephalic Eye: Present EOMI and PERRL ENT: Present mucous membranes moist *Routine Neck Exam Neck: Present supple; Absent lymphadenopathy *Routine Respiratory Exam Respiratory: Present CTA bilaterally *Routine Cardiovascular Exam Cardiovascular: Present RRR *Routine Abdominal Exam Abdominal: Present soft and normoactive bowel sounds; Absent tenderness *Routine Extremities Exam Extremities: Absent cyanosis, clubbing or edema Comments: Chronic venous stasis changes. *Routine Skin Exam Skin: Present warm; Absent rash *Routine Neurological Exam Neurological: Present alert and oriented X3 Assessment and Plan *Assessment and plan (1) Severe sepsis: Status: Acute Category: Medical Code(s): A41.9 - Sepsis, unspecified organism; R65.20 - Severe sepsis without septic shock (2) ELMER (acute kidney injury): Status: Acute Category: Medical Code(s): N17.9 - Acute kidney failure, unspecified (3) Complicated UTI (urinary tract infection): Status: Acute Category: Medical Code(s): N39.0 - Urinary tract infection, site not specified (4) PAF (paroxysmal atrial fibrillation): Status: Acute Category: Medical Code(s): I48.0 - Paroxysmal atrial fibrillation (5) Lung cancer: Status: Acute Category: Medical Code(s): C34.90 - Malignant neoplasm of unspecified part of unspecified bronchus or lung (6) Obesity (BMI 30.0-34.9): Status: Chronic Category: Medical Code(s): E66.811 - Obesity, class 1 (7) COPD mixed type: Status: Acute Category: Medical Code(s): J44.9 - Chronic obstructive pulmonary disease, unspecified (8) Chronic hypoxic respiratory failure, on home oxygen therapy: Status: Acute Category: Medical Code(s): J96.11 - Chronic respiratory failure with hypoxia; Z99.81 - Dependence on supplemental oxygen (9) Polycystic kidney disease: Status: Acute Category: Medical Code(s): Q61.3 - Polycystic kidney, unspecified (10) Blind: Status: Acute Qualifiers: Right eye visual impairment category: right - unspecified blindness L eft eye visual impairment category: left - unspecified blindness Qualified Code(s): H54.3 - Unqualified visual loss, both eyes Category: Medical Code(s): H54.7 - Unspecified visual loss (11) CKD (chronic kidney disease) stage 3, GFR 30-59 ml/min: Status: Chronic Category: Medical Code(s): N18.30 - Chronic kidney disease, stage 3 unspecified (12) Acute on chronic anemia: Status: Acute Category: Medical Code(s): D64.9 - Anemia, unspecified (13) Neutropenia: Problem Comment: Secondary to infection and chemotherapeutic drugs Status: Acute Category: Medical Code(s): D70.9 - Neutropenia, unspecified Plan Edi Toussaint is a 74-year-old male multiple comorbidities including CAD with PCI to LAD, lung cancer, chronic urinary retention with indwelling catheter, visual impairment, COPD, CHF, polycystic kidney disease, CKD 4. Presented to the ER with weakness. Found to be meeting sepsis criteria with white count of 2.8, Fever 102.4, and frankly abnormal urine with 4+ bacteria, 50-100 whites, 2+ leuk esterase and nitrate negative. Discussed case with ER physician, request admission for further management of sepsis. Decided to admit to the stepdown level of care for further treatment. #Severe sepsis, resolved #Sepsis #Complicated UTI secondary to chronic indwelling catheter #Neutropenia #Recent chemoinfusion - Blood cultures remain negative at 48 hours, urine culture positive for greater than 100,000 CFU's of gram-negative rods. Urine culture growing Klebsiella pneumonia, sensitive to meropenem. De-escalated antibiotics from meropenem to Zosyn. ? In the setting of recent start of chemoinfusion, last treatment on Tuesday. - Catheter exchanged in the ER - Neutropenia improving, WBC 1.2-2.0 today. However, patient continues to be febrile 102.6 this morning. ? Follow-up CT chest/abdomen/pelvis for further evaluation of sepsis, persistent fevers. Respiratory panel normal. - Continue standard precautions - Follow-up morning CBC. Coronary artery disease HFmrEF, chronic Paroxysmal A-fib - Perfusion scan from 09/10 with fixed perfusion defects. EF calculated at 43% - Heart cath performed 09/11/2024 with severe proximal and mid LAD disease. Received 3 contiguous stents. - Continue Lipitor 40 mg daily, metoprolol succinate 100 mg daily, Plavix 75 mg daily. Holding Eliquis in the setting of worsening anemia - Hold Jardiance in the setting of complicated UTI - Continue to monitor on telemetry -Restarted home Lasix 20 mg, given one-time dose of IV Lasix 40 mg today. Left upper lobe lung adenocarcinoma ? Former smoker, following with pulmonology and oncology closely. ? Completed radiation therapy, however mass showing progression. - Oncology began chemotherapy in the past few weeks. Last dose on Tuesday. Complicates his ability to fight infection. Stable oxygen requirement at this time of 2-3 L. - Continue home gabapentin 100 mg twice daily and oxycodone 10 mg as needed 3 times a day. Monitor for toxicity GERD: Continue home PPI. Polycystic kidney disease ELMER on CKD 3b BPH - Baseline creatinine approximately 1.8-2.0. ? Creatinine 3.0 today, resumed home Lasix. Given one-time dose of IV Lasix 40 mg. - Continue chronic Jason, exchanged on admission - Continue home tamsulosin 0.4 mg nightly Anemia, worsening Thrombocytopenia - Hemoglobin 7.1 today, given 1 unit irradiated PRBC transfusion due to underlying CAD. Repeat hemoglobin 7.2. ? Follow-up morning CBC. History of seizure disorder, continue oxcarbazepine 300 mg twice daily Full code Cardiac diet SCDs
[2024-11-16] MEDS: FUROSEMIDE 40MG/4ML VIAL 40 MG IV (18:38)
--- NOTE | 2024-11-16 20:00 | CT_ITS ---
PROCEDURE INFORMATION: Exam: CT Chest Without Contrast; Diagnostic Exam date and time: 11/16/2024 8:39 PM Age: 74 years old Clinical indication: Fever; Additional info: Persistent fevers, recent chemotherapy TECHNIQUE: Imaging protocol: Diagnostic computed tomography of the chest without contrast. Radiation optimization: All CT scans at this facility use at least one of these dose optimization techniques: automated exposure control; mA and/or kV adjustment per patient size (includes targeted exams where dose is matched to clinical indication); or iterative reconstruction. COMPARISON: CT ANGIO CHEST PE PROTOCOL 10/26/2024 10:07 PM FINDINGS: Lungs: Large left upper lobe consolidation. Minimal basilar atelectatic changes. Pleural spaces: Unremarkable. No pneumothorax. No pleural effusion. Heart: Heart is large in size. Coronary arteries: There are coronary artery calcifications. Lymph nodes: Unremarkable. No enlarged lymph nodes. Vasculature: Mild atherosclerosis of the aorta. No aneurysm. Bones/joints: DJD. Soft tissues: Unremarkable. IMPRESSION: Left upper lobe consolidation. Limited by patient motion.
--- NOTE | 2024-11-16 20:00 | CT_ITS ---
PROCEDURE INFORMATION: Exam: CT Abdomen And Pelvis Without Contrast Exam date and time: 11/16/2024 8:43 PM Age: 74 years old Clinical indication: Fever; Additional info: Persistent fevers, recent chemotherapy TECHNIQUE: Imaging protocol: Computed tomography of the abdomen and pelvis without contrast. Radiation optimization: All CT scans at this facility use at least one of these dose optimization techniques: automated exposure control; mA and/or kV adjustment per patient size (includes targeted exams where dose is matched to clinical indication); or iterative reconstruction. COMPARISON: CT ABDOMEN PELVIS W CON 10/03/2024 10:39 AM FINDINGS: Liver: Normal. No mass. Gallbladder and biliary ducts: Normal. No calcified stones. No ductal dilation. Pancreas: Normal. No ductal dilation. Spleen: Normal. No splenomegaly. Adrenal glands: Normal. No mass. Kidneys and ureters: Numerous bilateral renal benign-appearing cysts. Multiple bilateral renal nonobstructing stones. Stomach and bowel: Diverticulosis. Appendix: Air-filled normal appendix. Intraperitoneal space: Unremarkable. No free air. No significant fluid collection. Vasculature: Atherosclerosis. Lymph nodes: Unremarkable. No enlarged lymph nodes. Urinary bladder: Bladder decompressed by Jason. Bladder wall thickening and surrounding inflammatory changes. Reproductive: Unremarkable as visualized. Bones/joints: DJD. Soft tissues: There are 2 separate ventral abdominal wall hernias containing loops of small bowel. The periumbilical hernia bowel loops are mildly dilated containing air-fluid levels. There is also trace fluid in the hernia sac. There is mild dilation of the proximal segment of the bowel leading into the hernia. The distal small bowel loops are decompressed. IMPRESSION: 1. Ventral abdominal wall hernias. Early signs of small bowel obstruction secondary to the periumbilical hernia. 2. Findings consistent with cystitis. 3. See the chest CT for lower chest findings. COMMENTS: Consistent with the [place] [employer]'s Incidental Findings Committee white paper ([employer] 2018): Any incidental renal lesion less than 1 cm or classified as too small to characterize, or any incidental cystic renal lesion characterized as simple-appearing, is likely benign. No follow-up imaging is recommended for these lesions per consensus recommendations based on imaging criteria.
[2024-11-16] MEDS: PANTOPRAZOLE 40MG TABLET 40 MG PO (21:14)
[2024-11-16] MEDS: DOXYCYCLINE HYCL 100 MG TABLET PO (21:14)
[2024-11-16] MEDS: ATORVASTATIN 40MG TABLET 40 MG PO (21:15)
[2024-11-16] MEDS: TAMSULOSIN 0.4MG CAPSULE 0.4 MG PO (21:15)
--- NOTE | 2024-11-16 22:01 | PC.NURSE ---
When pt went for CT around 2044, they called stating his sats were in the 80s. I went down and applied a non rebreather to pt at 10LPM and stayed with pt. Pt sats came up to 90s and I remained with pt while getting his CT. Pt did well and when we got him back to the unit I was able to put him back on NC at 4LPM.
[2024-11-16] MEDS: SODIUM CHLORIDE 3% 15ML NEB 3 ML IH (23:21)
[2024-11-17] VITALS (34 sets, daily range): BP systolic 99–145; BP diastolic 62–87; PULSE 61–108; RESP 14–24; TEMP 36.4–38.8; O2SAT 86–98; BMI 31.7
[2024-11-17] MEDS: PIPERACILLIN/TAZO 2.25 GM in 0.9 % SODIUM CHLORIDE 50 ML IV ×4 (00:03→18:26)
[2024-11-17] MEDS: ACETAMINOPHEN 500MG TAB 500 MG PO (00:06)
[2024-11-17 06:28] LABS: Hematocrit 22.1 % (42.0-52.0); Immature Granulocytes % 1.4 %; Mean Corpuscular HGB Conc 31.2 g/dL (31.8-35.4); Mean Corpuscular Hemoglobin 27.0 pg (27.0-31.2); Mean Corpuscular Volume 86.3 fl (80-94); Nucleated Red Blood Cells % 0.7 %; Red Blood Count 2.56 M/mm3 (4.60-6.20); Red Cell Distribution Width-SD 52.4 fL; White Blood Count 2.9 K/mm3 (4.8-10.8)
[2024-11-17 06:34] LABS: Hemoglobin 6.9 g/dL (14.1-18.0); Platelet Count 35 K/mm3 (142-424)
[2024-11-17 06:37] LABS: Alanine Aminotransferase 26 U/L (12-78); Albumin Level 3.0 g/dl (3.5-5.0); Albumin/Globulin Ratio 1.0 (1.1-1.8); Alkaline Phosphatase 115 U/L (38-126); Anion Gap 13.3 mEq/L (5-15); Aspartate Amino Transferase 34 U/L (17-59); Bilirubin,Total 1.3 mg/dl (0.2-1.3); Blood Urea Nitrogen 66 mg/dl (9-20); Calcium 7.6 mg/dl (8.4-10.2); Carbon Dioxide 21 mmol/L (22.0-30.0); Chloride 106 mmol/L (98-107); Creatinine Clearance Estimated 33 mL/min (50-200); Creatinine,Serum 3.20 mg/dl (0.66-1.25); Estimated Glomerular Filt Rate 19 ml/min (>60); GFR (African American) 23 ML/MIN (>60); Globulin 3.0 g/dL (1.3-3.2); Glucose 112 mg/dl (74-100); Potassium 4.3 mmoL/L (3.5-5.1); Sodium 136 mmol/L (136-145); Total Protein,Serum 6.0 g/dl (6.3-8.2)
[2024-11-17] MEDS: IPRATROPIUM/ALBUTEROL 3 ML NEB IH ×4 (06:39→23:29)
[2024-11-17] MEDS: FLUTICASONE/UMECLIDIN/VILANTER 100/62.5/25MCG INHALER 1 PUFF IH (06:43)
--- NOTE | 2024-11-17 07:20 | PC.NURSE ---
Lab called to verify they saw blood transfusion order. Camila said she would call to get the blood and then let us know when it is ready.
[2024-11-17 07:53] LABS: Creatine Kinase 147 U/L (55-170)
[2024-11-17] MEDS: LIDOCAINE 5% TRANSDERMAL PATCH 1 EACH TD (08:00)
[2024-11-17] MEDS: 0.9 % SODIUM CHLORIDE 1000ML 500 ML 250 ML IV (08:52)
[2024-11-17] MEDS: DOXYCYCLINE HYCL 100 MG TABLET PO ×2 (08:53→20:23)
[2024-11-17] MEDS: CLOPIDOGREL 75MG TAB 75 MG PO (08:53)
[2024-11-17] MEDS: GABAPENTIN 100MG CAPSULE 100 MG PO ×2 (08:53→20:22)
[2024-11-17] MEDS: ISOSORBIDE MONO 30MG TAB.ER.24H 30 MG PO (08:53)
[2024-11-17] MEDS: OXYCODONE 5MG IMMEDIATE RELEASE TABLET 10 MG PO ×3 (08:54→20:23)
[2024-11-17] MEDS: METOPROLOL SUCCINATE XL 100MG TABLET 100 MG PO (08:54)
[2024-11-17] MEDS: ESCITALOPRAM 10MG TABLET 5 MG PO (08:54)
[2024-11-17] MEDS: FINASTERIDE 5MG TABLET 5 MG PO (08:54)
[2024-11-17] MEDS: TIMOLOL 0.5% OPTH SOLN 5ML OP (08:55)
[2024-11-17 09:02] LABS: Ovalocytes 1+; Total Cells Counted 100
[2024-11-17 09:03] LABS: Anisocytosis 1+; Hypochromasia 2+; Macrocytosis 1+
[2024-11-17] MEDS: 0.9 % SODIUM CHLORIDE 250 ML 25 ML IV (10:56)
--- NOTE | 2024-11-17 10:58 | PC.NURSE ---
1030 Dr Rasmussen on unit for patient rounds.
--- NOTE | 2024-11-17 12:13 | XR_ITS ---
PROCEDURE INFORMATION: Exam: XR Chest Exam date and time: 11/17/2024 12:17 PM Age: 74 years old Clinical indication: Shortness of breath; Additional info: Difficulty breathing/ post transfusion TECHNIQUE: Imaging protocol: Radiologic exam of the chest. Views: 1 view. COMPARISON: CT CHEST WO CON 11/16/2024 8:39 PM FINDINGS: Tubes, catheters and devices: EKG leads. Lungs: Low lung volumes. Patchy airspace disease in the left upper lung field. Pleural spaces: Unremarkable. No pleural effusion. No pneumothorax. Heart/Mediastinum: Unremarkable. No cardiomegaly. Bones/joints: Unremarkable. IMPRESSION: Low lung volumes. Patchy airspace disease in the left upper lung field may represent edema, pneumonia or atelectasis.
[2024-11-17] MEDS: FUROSEMIDE 40MG/4ML VIAL 20 MG IV ×2 (12:26→13:36)
[2024-11-17] MEDS: METHYLPREDNISOLONE SOD SUCC 40MG VIAL 40 MG IV (12:29)
[2024-11-17 12:38] LABS: ABG HCO3 19.8 mmhg (22.0-26.0); ABG PCO2 31.3 mmhg (35.0-45.0); ABG PH 7.42 mmol/L (7.35-7.45); ABG PO2 53.8 mmhg (80-100); ABG TCO2 20.8 mmhg (23-27); Source Right Radial
[2024-11-17 12:45] LABS: Lactate Arterial 1.2 mmol/L (0.4-2.0)
[2024-11-17] MEDS: POLYETHYLENE GLYCOL 3350 17 GM PACKET 34 GM PO (12:55)
[2024-11-17 13:18] LABS: Fibrinogen 672 mg/dL (229.9-363.5); INR 1.21 (0.9-1.1); Prothrombin Time 13.2 seconds (10.1-12.5)
--- NOTE | 2024-11-17 13:47 | PC.NURSE ---
Patient receiving blood, started at 1056. while receiving blood patient had a scheduled breathing treatment at 1103. Once the treatment was complete patient started having audible wheezing and struggling to breath. Patients oxygen saturation was 92% with a good pleath and once he started having trouble breathing patients oxygen saturation dropped down to 77. Patient was initally on 2 liters oxygen nasal cannula and was bumped up to 4 liters. Respiratory and Onesimo Rasmussen were notified. Respiratory bumped on up to 5 liters. Onesimo Rasmussen wanted patient to get lasix 40mg and also have a stat chest xray. At 1213 blood product was stopped. Patient placed on nonrebreather at 15 liters. Before giving the lasix, he wanted to hold off until he seen what the chest xray looked like. After seeing the chest xray Grady advised to give only 20mg of lasix, have respiratory obtain an ABG, patient was weaned from a non rebreather down to 6 liters nasal cannula, and was given 40mg of solumedrol. at 1300 Grady called to check on the patient to see how his breathing was. He wants patient to have another 20mg of lasix and then wait and hour and restart blood.
[2024-11-17 13:53] LABS: D-Dimer 3.69 ug/mL (0.0-0.5)
--- NOTE | 2024-11-17 17:09 | P.PN_ITS ---
Subjective *Date: 11/17/24 *Time: 18:09 Interval history: Patient went into hypoxic respiratory failure with his first unit of PRBC transfusion this morning, improved with IV Lasix 40 mg. Receiving second unit PRBC without issues at this time. Continues to have fevers, pancytopenia likely from chemotherapy recently. Discussed with Dr. Alford, who agreed and advised to continue course with IV antibiotics and close monitoring. DIC, HUS, TTP have been ruled out. Exam Data for Last 24 hours Vital signs and Labs for Last 24 Hours: Temp Pulse Resp BP Pulse Ox O2 Del Method O2 Flow Rate 98.6 F 69 14 127/71 92 L Nasal Cannula 3 11/17/24 17:06 11/17/24 17:06 11/17/24 17:06 11/17/24 17:06 11/17/24 17:06 11/17/24 16:00 11/17/24 16:00 Laboratory Results - last 24 hr 11/14/24 07:08: Crossmatch (AHG) See Detail 11/14/24 14:43: Crossmatch (AHG) See Detail 11/17/24 05:50: WBC 2.9 L D, RBC 2.56 L, Hgb 6.9 L, Hct 22.1 L, MCV 86.3, MCH 27.0, MCHC 31.2 L, RDW 17.0, Plt Count 35 L* D, MPV 9.4, Neut % (Auto) 89.0 H, Lymph % (Auto) 4.6 L, [place] % (Auto) 4.6, Eos % (Auto) 0.4, Baso % (Auto) 0.0 L, Neut # (Auto) 2.5, Lymph # (Auto) 0.1 L, [place] # (Auto) 0.1, Eos # (Auto) 0.0, Baso # (Auto) 0.0, Total Counted 100, Neutrophils % (Manual) 94 H, Lymphocytes % (Manual) 6 L, Platelet Estimate Marked decrease, Hypochromasia 2+, Anisocytosis 1+, Macrocytosis 1+, Ovalocytes 1+, Sodium 136, Potassium 4.3, Chloride 106, Carbon Dioxide 21 L, Anion Gap 13.3, BUN 66 H, Creatinine 3.20 H, Estimated Creat Clear 33, Estimated GFR 19 L*, Est GFR ( Amer) 23 L, Glucose 112 H, Calcium 7.6 L, Total Bilirubin 1.3, AST 34, ALT 26, Alkaline Phosphatase 115, Total Creatine Kinase 147, Total Protein 6.0 L, Albumin 3.0 L, Globulin 3.0, Albumin/Globulin Ratio 1.0 L 11/17/24 07:53: Blood Type AB Positive, Antibody Screen Negative, Crossmatch (AHG) See Detail 11/17/24 12:35: Specimen Source Right radial, O2 % 4l nc, ABG pH 7.42, ABG pCO2 31.3 L, ABG pO2 53.8 L, ABG HCO3 19.8 L, ABG Total CO2 20.8 L, ABG O2 Saturation 88 L, ABG Base Excess -4.6 L, Edwar Test Patient unable 11/17/24 12:42: ABG Lactate 1.2 11/17/24 12:51: PT 13.2 H, INR 1.21 H, Fibrinogen 672 H, D-Dimer 3.69 H I & O for Last 24 hours: Intake & Output 11/14/24 11/15/24 11/16/24 11/17/24 23:59 23:59 23:59 23:59 Intake Total 1252.917 / 5871.653 6528 / 1340 2213.333 / 2435.333 1379.083 / 1379.083 Output Total 1450 / 1750 2000 / 2300 1575 / 2775 2925 / 2925 Balance -197.083 / -257.083 -660 / -960 638.333 / -339.667 -1545.917 / -1545.917 Weight 115.847 kg 115.8 kg 116.29 kg 118.2 kg Microbiology Reports for the Last 24 Hours: Microbiology 11/13/24 11:00 Blood Blood Culture - Preliminary NO GROWTH AFTER 4 DAYS 11/13/24 09:44 Blood Blood Culture - Preliminary NO GROWTH AFTER 4 DAYS Constitutional Constitutional: no acute distress Comments: Legally blind. *Routine HEENT Exam Head: Present normocephalic Eye: Present EOMI and PERRL ENT: Present mucous membranes moist *Routine Neck Exam Neck: Present supple; Absent lymphadenopathy *Routine Respiratory Exam Respiratory: Present CTA bilaterally *Routine Cardiovascular Exam Cardiovascular: Present RRR *Routine Abdominal Exam Abdominal: Present soft and normoactive bowel sounds; Absent tenderness *Routine Extremities Exam Extremities: Absent cyanosis, clubbing or edema Comments: Chronic venous stasis changes. *Routine Skin Exam Skin: Present warm; Absent rash *Routine Neurological Exam Neurological: Present alert and oriented X3 Assessment and Plan *Assessment and plan (1) Severe sepsis: Status: Acute Category: Medical Code(s): A41.9 - Sepsis, unspecified organism; R65.20 - Severe sepsis without septic shock (2) ELMER (acute kidney injury): Status: Acute Category: Medical Code(s): N17.9 - Acute kidney failure, unspecified (3) Complicated UTI (urinary tract infection): Status: Acute Category: Medical Code(s): N39.0 - Urinary tract infection, site not specified (4) PAF (paroxysmal atrial fibrillation): Status: Acute Category: Medical Code(s): I48.0 - Paroxysmal atrial fibrillation (5) Lung cancer: Status: Acute Category: Medical Code(s): C34.90 - Malignant neoplasm of unspecified part of unspecified bronchus or lung (6) Obesity (BMI 30.0-34.9): Status: Chronic Category: Medical Code(s): E66.811 - Obesity, class 1 (7) COPD mixed type: Status: Acute Category: Medical Code(s): J44.9 - Chronic obstructive pulmonary disease, unspecified (8) Chronic hypoxic respiratory failure, on home oxygen therapy: Status: Acute Category: Medical Code(s): J96.11 - Chronic respiratory failure with hypoxia; Z99.81 - Dependence on supplemental oxygen (9) Polycystic kidney disease: Status: Acute Category: Medical Code(s): Q61.3 - Polycystic kidney, unspecified (10) Blind: Status: Acute Qualifiers: Left eye visual impairment category: left - unspecified blindness Right eye visual impairment category: right - unspecified blindness Qualified Co de(s): H54.3 - Unqualified visual loss, both eyes Category: Medical Code(s): H54.7 - Unspecified visual loss (11) CKD (chronic kidney disease) stage 3, GFR 30-59 ml/min: Status: Chronic Category: Medical Code(s): N18.30 - Chronic kidney disease, stage 3 unspecified (12) Acute on chronic anemia: Status: Acute Category: Medical Code(s): D64.9 - Anemia, unspecified (13) Neutropenia: Problem Comment: Secondary to infection and chemotherapeutic drugs Status: Acute Category: Medical Code(s): D70.9 - Neutropenia, unspecified Plan Edi Toussaint is a 74-year-old male multiple comorbidities including CAD with PCI to LAD, lung cancer, chronic urinary retention with indwelling catheter, visual impairment, COPD, CHF, polycystic kidney disease, CKD 4. Presented to the ER with weakness. Found to be meeting sepsis criteria with white count of 2.8, Fever 102.4, and frankly abnormal urine with 4+ bacteria, 50-100 whites, 2+ leuk esterase and nitrate negative. Discussed case with ER physician, request admission for further management of sepsis. Decided to admit to the stepdown level of care for further treatment. #Severe sepsis, resolved #Sepsis #Complicated UTI secondary to chronic indwelling catheter #Pancytopenia #Recent chemoinfusion ? Underwent chemoinfusion on 12/07/2024, has been feeling weak since then. Presented with pancytopenia, fevers, tachycardia. ? Continues to have fever, 102 Fahrenheit this morning. WBC improving from 2.0- 2.9 today. Thrombocytopenia worsening 52-35,000. ? Hemoglobin also lower today, 6.9. Patient was receiving his first unit of PRBC, went into acute hypoxic respiratory failure which improved with Lasix 40 mg. Will administer second unit PRBC, currently tolerating it well. Goal hemoglobin > 8 due to recent coronary stents. - Urine culture growing Klebsiella pneumonia sensitive to Zosyn. Catheter exchanged in the ER. ? Continue Zosyn 2.25 g every 6 hours. Continue to renally dose. ? Given persistent fevers, worsening thrombocytopenia and ELMER on CKD both DIC and TTP/HUS were considered. However, fibrinogen elevated (likely reactive) ruling out DIC and indirect bilirubin, LDH normal ruling out TTP/HUS. ? Spoke with Dr. Alford, oncology, who advised to continue course with IV antibiotics and close monitoring. He stated that pancytopenia will improve and thrombocytopenia was likely hitting his fredy. ? CT chest/abdomen/pelvis 11/16/2024 did not show acute infectious symptoms. Did suggest early SBO, but patient is passing gas and having bowel movements. - Continue standard precautions - Follow-up morning CBC. Coronary artery disease HFmrEF, chronic Paroxysmal A-fib - Perfusion scan from 09/10 with fixed perfusion defects. EF calculated at 43% - Heart cath performed 09/11/2024 with severe proximal and mid LAD disease. Received 3 contiguous stents. - Continue Lipitor 40 mg daily, metoprolol succinate 100 mg daily, Plavix 75 mg daily. Holding Eliquis in the setting of worsening anemia - Hold Jardiance in the setting of complicated UTI - Continue to monitor on telemetry - Given IV Lasix 40 mg today due to volume overload from PRBC transfusion. Follow-up morning CMP. Left upper lobe lung adenocarcinoma ? Former smoker, following with pulmonology and oncology closely. ? Completed radiation therapy, however mass showing progression. - Oncology began chemotherapy in the past few weeks. Last dose on Tuesday. Complicates his ability to fight infection. Stable oxygen requirement at this time of 2-3 L. - Continue home gabapentin 100 mg twice daily and oxycodone 10 mg as needed 3 times a day. Monitor for toxicity GERD: Continue home PPI. Polycystic kidney disease ELMER on CKD 3b BPH - Baseline creatinine approximately 1.8-2.0. ? Creatinine 3.2 today, Given one-time dose of IV Lasix 40 mg. - Continue chronic Jason, exchanged on admission - Continue home tamsulosin 0.4 mg nightly History of seizure disorder, continue oxcarbazepine 300 mg twice daily Full code Cardiac diet SCDs
[2024-11-17 18:01] LABS: Bilirubin,Direct 0.9 mg/dl (0.0-0.4); Bilirubin,Indirect 0.7 mg/dL (0.0-0.9); Bilirubin,Total 1.6 mg/dl (0.2-1.3); Bilirubin,Unconjugated 0.7 mg/dL (0.0-1.1)
[2024-11-17 18:39] LABS: Hematocrit 25.3 % (42.0-52.0)
[2024-11-17 18:47] LABS: Chloride 108 mmol/L (98-107); Potassium 4.9 mmoL/L (3.5-5.1); Sodium 135 mmol/L (136-145)
[2024-11-17 18:48] LABS: Hemoglobin 8.2 g/dL (14.1-18.0)
[2024-11-17 18:50] LABS: Anion Gap 12.9 mEq/L (5-15); Blood Urea Nitrogen 68 mg/dl (9-20); Calcium 8.1 mg/dl (8.4-10.2); Carbon Dioxide 19 mmol/L (22.0-30.0); Creatinine Clearance Estimated 35 mL/min (50-200); Creatinine,Serum 3.00 mg/dl (0.66-1.25); Estimated Glomerular Filt Rate 20 ml/min (>60); GFR (African American) 25 ML/MIN (>60); Glucose 153 mg/dl (74-100)
[2024-11-17] MEDS: TAMSULOSIN 0.4MG CAPSULE 0.4 MG PO (20:23)
[2024-11-17] MEDS: ATORVASTATIN 40MG TABLET 40 MG PO (20:23)
[2024-11-17] MEDS: PANTOPRAZOLE 40MG TABLET 40 MG PO (20:23)
[2024-11-18] VITALS (20 sets, daily range): BP systolic 114–156; BP diastolic 67–86; PULSE 58–80; RESP 14–27; TEMP 36.3–37.7; O2SAT 87–98; BMI 32.4
[2024-11-18] MEDS: PIPERACILLIN/TAZO 2.25 GM in 0.9 % SODIUM CHLORIDE 50 ML IV ×4 (01:04→18:03)
[2024-11-18 06:31] LABS: Hematocrit 23.6 % (42.0-52.0); Hemoglobin 7.5 g/dL (14.1-18.0); Immature Granulocytes % 1.2 %; Mean Corpuscular HGB Conc 31.8 g/dL (31.8-35.4); Mean Corpuscular Hemoglobin 27.4 pg (27.0-31.2); Mean Corpuscular Volume 86.1 fl (80-94); Nucleated Red Blood Cells % 0 %; Red Blood Count 2.74 M/mm3 (4.60-6.20); Red Cell Distribution Width-SD 51.4 fL; White Blood Count 4.3 K/mm3 (4.8-10.8)
[2024-11-18 06:35] LABS: Platelet Count 26 K/mm3 (142-424)
[2024-11-18 06:45] LABS: Alanine Aminotransferase 29 U/L (12-78); Albumin Level 3.1 g/dl (3.5-5.0); Albumin/Globulin Ratio 1.0 (1.1-1.8); Alkaline Phosphatase 127 U/L (38-126); Anion Gap 14.7 mEq/L (5-15); Aspartate Amino Transferase 40 U/L (17-59); Bilirubin,Total 1.4 mg/dl (0.2-1.3); Blood Urea Nitrogen 71 mg/dl (9-20); Calcium 7.9 mg/dl (8.4-10.2); Carbon Dioxide 21 mmol/L (22.0-30.0); Chloride 106 mmol/L (98-107); Creatinine Clearance Estimated 33 mL/min (50-200); Creatinine,Serum 3.30 mg/dl (0.66-1.25); Estimated Glomerular Filt Rate 18 ml/min (>60); GFR (African American) 22 ML/MIN (>60); Globulin 3.2 g/dL (1.3-3.2); Glucose 100 mg/dl (74-100); Potassium 4.7 mmoL/L (3.5-5.1); Sodium 137 mmol/L (136-145); Total Protein,Serum 6.3 g/dl (6.3-8.2)
[2024-11-18] MEDS: IPRATROPIUM/ALBUTEROL 3 ML NEB IH ×4 (06:50→22:11)
[2024-11-18] MEDS: FLUTICASONE/UMECLIDIN/VILANTER 100/62.5/25MCG INHALER 1 PUFF IH (06:51)
[2024-11-18 07:00] LABS: Magnesium 1.7 mg/dl (1.6-2.3)
[2024-11-18 07:16] LABS: Total Cells Counted 100
[2024-11-18 07:17] LABS: RBC Morphology Normal
[2024-11-18] MEDS: POLYETHYLENE GLYCOL 3350 17 GM PACKET PO (08:16)
[2024-11-18] MEDS: LIDOCAINE 5% TRANSDERMAL PATCH 1 EACH TD (08:16)
[2024-11-18] MEDS: METOPROLOL SUCCINATE XL 100MG TABLET 100 MG PO (08:17)
[2024-11-18] MEDS: CLOPIDOGREL 75MG TAB 75 MG PO (08:17)
[2024-11-18] MEDS: ESCITALOPRAM 10MG TABLET 5 MG PO (08:17)
[2024-11-18] MEDS: DOXYCYCLINE HYCL 100 MG TABLET PO ×2 (08:17→21:35)
[2024-11-18] MEDS: TIMOLOL 0.5% OPTH SOLN 5ML OP (08:18)
[2024-11-18] MEDS: GABAPENTIN 100MG CAPSULE 100 MG PO ×2 (08:18→21:33)
[2024-11-18] MEDS: OXYCODONE 5MG IMMEDIATE RELEASE TABLET 10 MG PO ×3 (08:18→21:33)
[2024-11-18] MEDS: FINASTERIDE 5MG TABLET 5 MG PO (08:18)
[2024-11-18 09:24] LABS: POC Glucose,Bedside 118 gm/dL (70-110)
[2024-11-18] MEDS: BISACODYL 5MG TABLET 10 MG PO (10:21)
--- NOTE | 2024-11-18 16:08 | P.PN_ITS ---
Subjective *Date: 11/18/24 *Time: 16:08 Interval history: Patient states he is doing well without acute concerns. WBC improving, but hemoglobin and lately slightly down today. Passing gas, but no bowel movement in 2 days. No abdominal pain. Will continue to monitor signs for possible SBO. Exam Data for Last 24 hours Vital signs and Labs for Last 24 Hours: Temp Pulse Resp BP Pulse Ox O2 Del Method O2 Flow Rate 97.9 F 63 17 149/86 H 96 Nasal Cannula 2 11/18/24 12:00 11/18/24 12:03 11/18/24 12:00 11/18/24 12:00 11/18/24 12:03 11/18/24 15:00 11/18/24 15:00 FiO2 32 11/17/24 19:10 Laboratory Results - last 24 hr 11/14/24 10:56: POC Glucose 118 H 11/17/24 07:53: Crossmatch (AHG) See Detail 11/17/24 12:51: Total Bilirubin 1.6 H, Direct Bilirubin 0.9 H, Conjugated Bilirubin 0.1, Indirect Bilirubin 0.7, Unconjugated Bilirubin 0.7, Lactate Dehydrogenase 348 11/17/24 18:29: Hgb 8.2 L D, Hct 25.3 L, Sodium 135 L, Potassium 4.9, Chloride 108 H, Carbon Dioxide 19 L, Anion Gap 12.9, BUN 68 H, Creatinine 3.00 H, Estimated Creat Clear 35, Estimated GFR 20 L, Est GFR ( Amer) 25 L, Glucose 153 H D, Calcium 8.1 L 11/18/24 06:00: WBC 4.3 L D, RBC 2.74 L, Hgb 7.5 L, Hct 23.6 L, MCV 86.1, MCH 27.4, MCHC 31.8, RDW 16.6, Plt Count 26 L* D, MPV 12.1 H, Neut % (Auto) 93.5 H, Lymph % (Auto) 3.2 L, [place] % (Auto) 2.1, Eos % (Auto) 0.0 L, Baso % (Auto) 0.0 L , Neut # (Auto) 4.0, Lymph # (Auto) 0.1 L, [place] # (Auto) 0.1, Eos # (Auto) 0.0, Baso # (Auto) 0.0, Total Counted 100, Neutrophils % (Manual) 93 H, Lymphocytes % (Manual) 5 L, Monocytes % (Manual) 2, Platelet Estimate Marked dec, RBC Morphology Normal, Sodium 137, Potassium 4.7, Chloride 106, Carbon Dioxide 21 L, Anion Gap 14.7, BUN 71 H, Creatinine 3.30 H, Estimated Creat Clear 33, Estimated GFR 18 L*, Est GFR ( Amer) 22 L, Glucose 100 D, Calcium 7.9 L, Magnesium 1.7, Total Bilirubin 1.4 H, AST 40, ALT 29, Alkaline Phosphatase 127 H, Total Protein 6.3, Albumin 3.1 L, Globulin 3.2, Albumin/Globulin Ratio 1.0 L I & O for Last 24 hours: Intake & Output 11/15/24 11/16/24 11/17/24 11/18/24 23:59 23:59 23:59 23:59 Intake Total 1340 / 1340 2213.333 / 2435.333 2042.416 / 2264.416 1232 / 1232 Output Total 1999 / 2300 1575 / 2775 3295 / 3295 1700 / 1700 Balance -660 / -960 638.333 / -339.667 -1252.584 / -1030.584 -468 / -468 Weight 115.8 kg 116.29 kg 118.2 kg 120.973 kg Microbiology Reports for the Last 24 Hours: Microbiology 11/17/24 12:51 Blood Blood Culture - Preliminary NO GROWTH AFTER 24 HOURS 11/13/24 11:00 Blood Blood Culture - Final NO GROWTH AFTER 5 DAYS 11/17/24 10:43 Blood Blood Culture - Preliminary NO GROWTH AFTER 24 HOURS 11/13/24 09:44 Blood Blood Culture - Final NO GROWTH AFTER 5 DAYS Constitutional Constitutional: no acute distress Comments: Bilateral blindness. Very pleasant. *Routine HEENT Exam Head: Present normocephalic Eye: Present EOMI and PERRL ENT: Present mucous membranes moist *Routine Neck Exam Neck: Present supple; Absent lymphadenopathy *Routine Respiratory Exam Respiratory: Present CTA bilaterally *Routine Cardiovascular Exam Cardiovascular: Present RRR *Routine Abdominal Exam Abdominal: Present soft and normoactive bowel sounds; Absent tenderness *Routine Extremities Exam Extremities: Absent cyanosis, clubbing or edema Comments: Chronic venous stasis changes. *Routine Skin Exam Skin: Present warm; Absent rash *Routine Neurological Exam Neurological: Present alert and oriented X3 Assessment and Plan *Assessment and plan (1) Severe sepsis: Status: Acute Category: Medical Code(s): A41.9 - Sepsis, unspecified organism; R65.20 - Severe sepsis without septic shock (2) ELMER (acute kidney injury): Status: Acute Category: Medical Code(s): N17.9 - Acute kidney failure, unspecified (3) Complicated UTI (urinary tract infection): Status: Acute Category: Medical Code(s): N39.0 - Urinary tract infection, site not specified (4) PAF (paroxysmal atrial fibrillation): Status: Acute Category: Medical Code(s): I48.0 - Paroxysmal atrial fibrillation (5) Lung cancer: Status: Acute Category: Medical Code(s): C34.90 - Malignant neoplasm of unspecified part of unspecified bronchus or lung (6) Obesity (BMI 30.0-34.9): Status: Chronic Category: Medical Code(s): E66.811 - Obesity, class 1 (7) COPD mixed type: Status: Acute Category: Medical Code(s): J44.9 - Chronic obstructive pulmonary disease, unspecified (8) Chronic hypoxic respiratory failure, on home oxygen therapy: Status: Acute Category: Medical Code(s): J96.11 - Chronic respiratory failure with hypoxia; Z99.81 - Dependence on supplemental oxygen (9) Polycystic kidney disease: Status: Acute Category: Medical Code(s): Q61.3 - Polycystic kidney, unspecified (10) Blind: Status: Acute Qualifiers: Right eye visual impairment category: right - unspecified blindness Left eye visual impairment category: left - unspecified blindness Qualified Code(s): H54.3 - Unqualified visual loss, both eyes Category: Medical Code(s): H54.7 - Unspecified visual loss (11) CKD (chronic kidney disease) stage 3, GFR 30-59 ml/min: Status: Chronic Category: Medical Code(s): N18.30 - Chronic kidney disease, stage 3 unspecified (12) Acute on chronic anemia: Status: Acute Category: Medical Code(s): D64.9 - Anemia, unspecified (13) Neutropenia: Problem Comment: Secondary to infection and chemotherapeutic drugs Status: Acute Category: Medical Code(s): D70.9 - Neutropenia, unspecified Plan Edi Toussaint is a 74-year-old male multiple comorbidities including CAD with PCI to LAD, lung cancer, chronic urinary retention with indwelling catheter, visual impairment, COPD, CHF, polycystic kidney disease, CKD 4. Presented to the ER with weakness. Found to be meeting sepsis criteria with white count of 2.8, Fever 102.4, and frankly abnormal urine with 4+ bacteria, 50-100 whites, 2+ leuk esterase and nitrate negative. Discussed case with ER physician, request admission for further management of sepsis. Decided to admit to the stepdown level of care for further treatment. #Severe sepsis, resolved #Sepsis #Complicated UTI secondary to chronic indwelling catheter #Pancytopenia #Recent chemoinfusion ? Underwent chemoinfusion on 12/07/2024, had been feeling weak since then. Presented with pancytopenia, fevers, tachycardia, CAUTI. ? First day being afebrile for 24 hours, WBC improving from 2.9-4.3, hemoglobin down from 8.27.5, platelets down from 35-26,000. No signs of bleeding. - Urine culture 12-06 growing Klebsiella pneumonia sensitive to Zosyn. Catheter exchanged in the ER. ? Continue Zosyn 2.25 g every 6 hours day 6. Continue to renally dose. ? Given worsening thrombocytopenia and ELMER on CKD, DIC, TTP, HUS were considered. However, fibrinogen elevated (likely reactive) ruling out DIC and indirect bilirubin, LDH normal ruling out TTP/HUS. ? Spoke with Dr. Alford on 11/17/2024, oncology, who advised to continue course with IV antibiotics and close monitoring. He stated that pancytopenia will improve and thrombocytopenia was likely hitting his fredy. ? CT chest/abdomen/pelvis 11/16/2024 did not show acute infectious symptoms. Did suggest early SBO, but patient is passing gas and did have a bowel movement 2 days ago. - Continue standard precautions - Follow-up morning CBC. #Possible SBO/ileus ? CT abdomen/pelvis on 11/16/2024 suggested possible SBO and periumbilical hernia. Patient had a bowel movement 2 days ago, but abdomen more distended and tight today. No pain however. Also passing gas. ? Will continue with clear liquid diet for now, will consider consulting general surgery if no improvement in symptoms. Coronary artery disease HFmrEF, chronic Paroxysmal A-fib - Perfusion scan from 09/10 with fixed perfusion defects. EF calculated at 43% - Heart cath performed 09/11/2024 with severe proximal and mid LAD disease. Received 3 contiguous stents. - Continue Lipitor 40 mg daily, metoprolol succinate 100 mg daily, Plavix 75 mg daily. Holding Eliquis in the setting of worsening anemia - Hold Jardiance in the setting of complicated UTI - Continue to monitor on telemetry - Consider restarting home Lasix tomorrow. Left upper lobe lung adenocarcinoma ? Former smoker, following with pulmonology and oncology closely. ? Completed radiation therapy, however mass showing progression. - Oncology began chemotherapy in the past few weeks. Last dose on 12/07/2024. Complicates his ability to fight infection. Stable oxygen requirement at this time of 2-3 L. - Continue home gabapentin 100 mg twice daily and oxycodone 10 mg as needed 3 times a day. Monitor for toxicity GERD: Continue home PPI. Polycystic kidney disease ELMER on CKD 3b BPH - Baseline creatinine approximately 1.8-2.0. ? Creatinine 3.3 today, consider restarting Lasix tomorrow. - Continue chronic Jason, exchanged on admission - Continue home tamsulosin 0.4 mg nightly History of seizure disorder, continue oxcarbazepine 300 mg twice daily Full code Cardiac diet SCDs
[2024-11-18] MEDS: ATORVASTATIN 40MG TABLET 40 MG PO (21:32)
[2024-11-18] MEDS: TAMSULOSIN 0.4MG CAPSULE 0.4 MG PO (21:33)
[2024-11-18] MEDS: PANTOPRAZOLE 40MG TABLET 40 MG PO (21:33)
[2024-11-18] MEDS: ACETAMINOPHEN 500MG TAB 500 MG PO (21:33)
[2024-11-19] VITALS (34 sets, daily range): BP systolic 86–159; BP diastolic 55–102; PULSE 68–138; RESP 14–28; TEMP 36.1–37.9; O2SAT 83–98; BMI 32.8
[2024-11-19] MEDS: PIPERACILLIN/TAZO 2.25 GM in 0.9 % SODIUM CHLORIDE 50 ML IV ×4 (00:30→17:39)
[2024-11-19 06:18] LABS: Hematocrit 25.5 % (42.0-52.0); Immature Granulocytes % 1.3 %; Mean Corpuscular HGB Conc 32.5 g/dL (31.8-35.4); Mean Corpuscular Hemoglobin 27.8 pg (27.0-31.2); Mean Corpuscular Volume 85.3 fl (80-94); Nucleated Red Blood Cells % 0 %; Red Blood Count 2.99 M/mm3 (4.60-6.20); Red Cell Distribution Width-SD 50.8 fL; White Blood Count 4.8 K/mm3 (4.8-10.8)
[2024-11-19 06:20] LABS: Platelet Count 22 K/mm3 (142-424)
[2024-11-19] MEDS: FLUTICASONE/UMECLIDIN/VILANTER 100/62.5/25MCG INHALER 1 PUFF IH (06:24)
[2024-11-19] MEDS: IPRATROPIUM/ALBUTEROL 3 ML NEB IH ×5 (06:24→23:02)
[2024-11-19 06:26] LABS: Hemoglobin 8.4 g/dL (14.1-18.0); Magnesium 1.7 mg/dl (1.6-2.3)
[2024-11-19 06:51] LABS: Alanine Aminotransferase 31 U/L (12-78); Albumin Level 3.2 g/dl (3.5-5.0); Albumin/Globulin Ratio 1.0 (1.1-1.8); Alkaline Phosphatase 146 U/L (38-126); Anion Gap 15.8 mEq/L (5-15); Aspartate Amino Transferase 56 U/L (17-59); Bilirubin,Total 2.3 mg/dl (0.2-1.3); Blood Urea Nitrogen 70 mg/dl (9-20); Calcium 8.0 mg/dl (8.4-10.2); Carbon Dioxide 19 mmol/L (22.0-30.0); Chloride 106 mmol/L (98-107); Creatinine Clearance Estimated 35 mL/min (50-200); Creatinine,Serum 3.10 mg/dl (0.66-1.25); Estimated Glomerular Filt Rate 20 ml/min (>60); GFR (African American) 24 ML/MIN (>60); Globulin 3.2 g/dL (1.3-3.2); Glucose 82 mg/dl (74-100); Potassium 4.8 mmoL/L (3.5-5.1); Sodium 136 mmol/L (136-145); Total Protein,Serum 6.4 g/dl (6.3-8.2)
[2024-11-19 07:20] LABS: RBC Morphology Normal; Total Cells Counted 100
--- NOTE | 2024-11-19 07:48 | EXP.PHA.PN ---
Subjective *Date: 11/19/24 *Time: 07:48 Medical Exam Vital signs and Labs for Last 24 Hours: Vital Signs Temp Pulse Resp BP Pulse Ox O2 Del Method O2 Flow Rate 11/19/24 06:34 99.5 F 109 H 20 128/85 92 L Nasal Cannula 3 11/19/24 06:24 123 H 11/19/24 06:24 103 H 11/19/24 06:24 93 L Nasal Cannula 4 11/19/24 05:00 Nasal Cannula 3 11/19/24 04:00 68 11/19/24 03:00 Nasal Cannula 4 11/19/24 02:01 68 18 112/56 L 95 Nasal Cannula 3 11/19/24 00:58 Nasal Cannula 4 11/19/24 00:10 99.6 F 72 19 120/63 94 L Nasal Cannula 4 11/19/24 00:00 94 L Nasal Cannula 4 11/19/24 00:00 80 11/18/24 22:53 Nasal Cannula 3 11/18/24 22:30 63 11/18/24 22:30 72 23 137/74 91 L Nasal Cannula 4 11/18/24 22:12 67 11/18/24 22:06 74 24 152/76 H 91 L Nasal Cannula 4 11/18/24 21:30 78 24 141/67 H 92 L Nasal Cannula 4 11/18/24 21:00 78 24 134/69 92 L Nasal Cannula 4 11/18/24 21:00 Nasal Cannula 2 11/18/24 20:01 99.9 F H 80 27 H 139/77 87 L Nasal Cannula 3 11/18/24 20:00 Nasal Cannula 3 11/18/24 20:00 80 11/18/24 19:34 Nasal Cannula 2 11/18/24 18:52 Nasal Cannula 2 11/18/24 17:00 Nasal Cannula 2 11/18/24 16:00 78 11/18/24 16:00 98.2 F 77 26 H 156/84 H 96 Nasal Cannula 2 11/18/24 15:00 Nasal Cannula 2 11/18/24 13:00 Nasal Cannula 2 11/18/24 12:03 63 11/18/24 12:03 63 11/18/24 12:03 96 Nasal Cannula 11/18/24 12:00 60 11/18/24 12:00 97.9 F 65 17 149/86 H 95 Nasal Cannula 2 11/18/24 11:00 Nasal Cannula 2 11/18/24 09:00 Nasal Cannula 2 11/18/24 08:00 98 Nasal Cannula 2 11/18/24 08:00 98 Nasal Cannula 2 11/18/24 08:00 66 11/18/24 08:00 97.4 F L 61 20 137/72 97 Nasal Cannula 3 Intake and Output 11/18/24 11/18/24 11/19/24 15:59 23:59 07:59 Intake Total 910 / 1482 250 / 1482 100 / 100 Output Total 900 / 2025 325 / 2025 150 / 150 Balance 10 / -543 -75 / -543 -50 / -50 Intake: Intake, Oral Amount 860 / 1282 200 / 1282 Intake, Total IV Amount 50 / 200 50 / 200 100 / 100 Piperacillin/Tazo 2.25 gm In 0. 50 / 200 50 / 200 100 / 100 9 % Sodium Chloride 50 ml @ 100 mls/hr IV Q6H [facility] Rx#:[id number] Output: Output, Urine Amount 600 / 1725 325 / 1725 150 / 150 Output, Urine Amount (Catheter) 300 / 300 Jason 300 / 300 Other: Number of Unmeasured Voids 0 0 0 Weight 122.498 kg Patient Weight 11/19/24 23:59 Weight 122.498 kg Laboratory Results - last 24 hr 11/14/24 10:56: POC Glucose 118 H 11/14/24 14:43: Crossmatch (AHG) See Detail 11/19/24 05:20: WBC 4.8, RBC 2.99 L, Hgb 8.4 L D, Hct 25.5 L, MCV 85.3, MCH 27.8, MCHC 32.5, RDW 16.2, Plt Count 22 L*, MPV 11.3 H, Neut % (Auto) 93.1 H, Lymph % (Auto) 4.4 L, [place] % (Auto) 0.8 L, Eos % (Auto) 0.2, Baso % (Auto) 0.2, Neut # (Auto) 4.5, Lymph # (Auto) 0.2 L, [place] # (Auto) 0.0 L, Eos # (Auto) 0.0, Baso # (Auto) 0.0, Total Counted 100, Neutrophils % (Manual) 95 H, Lymphocytes % (Manual) 4 L, Monocytes % (Manual) 1 L, Platelet Estimate Marked decrease, RBC Morphology Normal, Sodium 136, Potassium 4.8, Chloride 106, Carbon Dioxide 19 L, Anion Gap 15.8 H, BUN 70 H, Creatinine 3.10 H, Estimated Creat Clear 35, Estimated GFR 20 L, Est GFR ( Amer) 24 L, Glucose 82, Calcium 8.0 L, Magnesium 1.7, Total Bilirubin 2.3 H, AST 56 D, ALT 31, Alkaline Phosphatase 146 H, Total Protein 6.4, Albumin 3.2 L, Globulin 3.2, Albumin/Globulin Ratio 1.0 L I & O for Labs for Last 24 Hours: Intake & Output 11/16/24 11/17/24 11/18/24 11/19/24 23:59 23:59 23:59 23:59 Intake Total 2213.333 / 2435.333 2042.416 / 2264.416 1482 / 1482 100 / 100 Output Total 1575 / 2775 3295 / 3295 2024 / 2024 150 / 150 Balance 638.333 / -339.667 -1252.584 / -1030.584 -543 / -543 -50 / -50 Weight 116.29 kg 118.2 kg 120.973 kg 122.498 kg Microbiology Reports for the Last 24 Hours: Microbiology 11/17/24 12:51 Blood Blood Culture - Preliminary NO GROWTH AFTER 24 HOURS 11/13/24 11:00 Blood Blood Culture - Final NO GROWTH AFTER 5 DAYS 11/17/24 10:43 Blood Blood Culture - Preliminary NO GROWTH AFTER 24 HOURS 11/13/24 09:44 Blood Blood Culture - Final NO GROWTH AFTER 5 DAYS The patient's infection will respond to the chosen ABx?: Yes (SPUTUM UNCOLLECTED, BLOOD CX NO GROWTH AT 24 HR) Is the patient receiving the right drug, dose, and route?: Yes Could a more targeted ABx be ordered?: No How long ABx needed (days)?: 5
--- NOTE | 2024-11-19 07:58 | ECG_ITS ---
APPROVED REPORT Exam: Resting ECG HR:127 bpm ECG Measurements Heart Rate 127 AXES QRSd 99 QRS -51 QT 290 T 68 QTc 365 Conclusion ATRIAL FIBRILLATION WITH RAPID VENTRICULAR RESPONSE PATTERN CONSISTENT WITH PULMONARY DISEASE LEFT ANTERIOR FASCICULAR BLOCK [QRS AXIS <= -45, QR IN I, RS IN II] ABNORMAL ECG UNCONFIRMED REPORT Electronically signed by : Syed Modi MD 11/19/2024 14:34:01
[2024-11-19] MEDS: LIDOCAINE 5% TRANSDERMAL PATCH 1 EACH TD (08:17)
[2024-11-19] MEDS: FINASTERIDE 5MG TABLET 5 MG PO (08:20)
[2024-11-19] MEDS: CLOPIDOGREL 75MG TAB 75 MG PO (08:20)
[2024-11-19] MEDS: METOPROLOL SUCCINATE XL 100MG TABLET 100 MG PO (08:20)
[2024-11-19] MEDS: DOXYCYCLINE HYCL 100 MG TABLET PO ×2 (08:20→21:10)
[2024-11-19] MEDS: ESCITALOPRAM 10MG TABLET 5 MG PO (08:21)
[2024-11-19] MEDS: TIMOLOL 0.5% OPTH SOLN 5ML OP (08:21)
[2024-11-19] MEDS: ACETAMINOPHEN 500MG TAB 500 MG PO (08:21)
[2024-11-19] MEDS: POLYETHYLENE GLYCOL 3350 17 GM PACKET PO (08:21)
[2024-11-19] MEDS: OXYCODONE 5MG IMMEDIATE RELEASE TABLET 10 MG PO ×3 (08:24→21:09)
[2024-11-19] MEDS: GABAPENTIN 100MG CAPSULE 100 MG PO ×2 (08:24→21:09)
--- NOTE | 2024-11-19 08:34 | P.PN_ITS ---
Subjective *Date: 11/19/24 *Time: 17:40 Interval history: Patient had episode this morning of weakness and mild confusion. Got better as the morning went on. Still in mild distress. No marvin fever but did have mild elevation in temperature. Still had abdominal distention on morning exam. Later in the morning had a large bowel movement. Significant improvement in patient's clinical disposition after his bowel movement. Requesting something to eat more than clears, will advance diet. Necessitated increase in oxygen from 3 L to 5 L. Denies any nausea. Improve mentation and alertness after bowel movement. Able to get up to bedside chair Medical Exam Vital signs and Labs for Last 24 Hours: Vital Signs Temp Pulse Resp BP Pulse Ox O2 Del Method O2 Flow Rate 11/19/24 08:23 92 L Venturi Mask 15 11/19/24 08:17 128 H 11/19/24 08:17 138 H 11/19/24 08:00 100.3 F H 120 H 16 154/88 H 85 L Nasal Cannula 3 11/19/24 06:34 99.5 F 109 H 20 128/85 92 L Nasal Cannula 3 11/19/24 06:24 123 H 11/19/24 06:24 103 H 11/19/24 06:24 93 L Nasal Cannula 4 11/19/24 05:00 Nasal Cannula 3 11/19/24 04:00 68 11/19/24 03:00 Nasal Cannula 4 11/19/24 02:01 68 18 112/56 L 95 Nasal Cannula 3 11/19/24 00:58 Nasal Cannula 4 11/19/24 00:10 99.6 F 72 19 120/63 94 L Nasal Cannula 4 11/19/24 00:00 94 L Nasal Cannula 4 11/19/24 00:00 80 11/18/24 22:53 Nasal Cannula 3 11/18/24 22:30 63 11/18/24 22:30 72 23 137/74 91 L Nasal Cannula 4 11/18/24 22:12 67 11/18/24 22:06 74 24 152/76 H 91 L Nasal Cannula 4 11/18/24 21:30 78 24 141/67 H 92 L Nasal Cannula 4 11/18/24 21:00 78 24 134/69 92 L Nasal Cannula 4 11/18/24 21:00 Nasal Cannula 2 11/18/24 20:01 99.9 F H 80 27 H 139/77 87 L Nasal Cannula 3 11/18/24 20:00 Nasal Cannula 3 11/18/24 20:00 80 11/18/24 19:34 Nasal Cannula 2 11/18/24 18:52 Nasal Cannula 2 11/18/24 17:00 Nasal Cannula 2 11/18/24 16:00 78 11/18/24 16:00 98.2 F 77 26 H 156/84 H 96 Nasal Cannula 2 11/18/24 15:00 Nasal Cannula 2 11/18/24 13:00 Nasal Cannula 2 11/18/24 12:03 63 11/18/24 12:03 63 11/18/24 12:03 96 Nasal Cannula 11/18/24 12:00 60 11/18/24 12:00 97.9 F 65 17 149/86 H 95 Nasal Cannula 2 11/18/24 11:00 Nasal Cannula 2 11/18/24 09:00 Nasal Cannula 2 FiO2 11/19/24 08:23 50 11/19/24 08:17 11/19/24 08:17 11/19/24 08:00 11/19/24 06:34 11/19/24 06:24 11/19/24 06:24 11/19/24 06:24 11/19/24 05:00 11/19/24 04:00 11/19/24 03:00 11/19/24 02:01 11/19/24 00:58 11/19/24 00:10 11/19/24 00:00 11/19/24 00:00 11/18/24 22:53 11/18/24 22:30 11/18/24 22:30 11/18/24 22:12 11/18/24 22:06 11/18/24 21:30 11/18/24 21:00 11/18/24 21:00 11/18/24 20:01 11/18/24 20:00 11/18/24 20:00 11/18/24 19:34 11/18/24 18:52 11/18/24 17:00 11/18/24 16:00 11/18/24 16:00 11/18/24 15:00 11/18/24 13:00 11/18/24 12:03 11/18/24 12:03 11/18/24 12:03 11/18/24 12:00 11/18/24 12:00 11/18/24 11:00 11/18/24 09:00 Intake and Output 11/18/24 11/19/24 11/19/24 23:59 07:59 15:59 Intake Total 250 / 1482 100 / 100 Output Total 325 / 2025 150 / 150 Balance -75 / -543 -50 / -50 Intake: Intake, Oral Amount 200 / 1282 Intake, Total IV Amount 50 / 200 100 / 100 Piperacillin/Tazo 2.25 gm In 0. 50 / 200 100 / 100 9 % Sodium Chloride 50 ml @ 100 mls/hr IV Q6H [facility] Rx#:[id number] Output: Output, Urine Amount 325 / 1725 150 / 150 Other: Number of Unmeasured Voids 0 0 0 Weight 122.498 kg Patient Weight 11/19/24 23:59 Weight 122.498 kg Laboratory Results - last 24 hr 11/14/24 10:56: POC Glucose 118 H 11/14/24 14:43: Crossmatch ([facility]) See Detail 11/19/24 05:20: WBC 4.8, RBC 2.99 L, Hgb 8.4 L D, Hct 25.5 L, MCV 85.3, MCH 27.8, MCHC 32.5, RDW 16.2, Plt Count 22 L*, MPV 11.3 H, Neut % (Auto) 93.1 H, Lymph % (Auto) 4.4 L, [place] % (Auto) 0.8 L, Eos % (Auto) 0.2, Baso % (Auto) 0.2, Neut # (Auto) 4.5, Lymph # (Auto) 0.2 L, [place] # (Auto) 0.0 L, Eos # (Auto) 0.0, Baso # (Auto) 0.0, Total Counted 100, Neutrophils % (Manual) 95 H, Lymphocytes % (Manual) 4 L, Monocytes % (Manual) 1 L, Platelet Estimate Marked decrease, RBC Morphology Normal, Sodium 136, Potassium 4.8, Chloride 106, Carbon Dioxide 19 L, Anion Gap 15.8 H, BUN 70 H, Creatinine 3.10 H, Estimated Creat Clear 35, Estimated GFR 20 L, Est GFR ( Amer) 24 L, Glucose 82, Calcium 8.0 L, Magnesium 1.7, Total Bilirubin 2.3 H, AST 56 D, ALT 31, Alkaline Phosphatase 146 H, Total Protein 6.4, Albumin 3.2 L, Globulin 3.2, Albumin/Globulin Ratio 1.0 L I & O for Labs for Last 24 Hours: Intake & Output 11/16/24 11/17/24 11/18/24 11/19/24 23:59 23:59 23:59 23:59 Intake Total 2213.333 / 2435.333 2042.416 / 2264.416 1482 / 1482 100 / 100 Output Total 1575 / 2775 3295 / 3295 2024 150 / 150 Balance 638.333 / -339.667 -1252.584 / -1030.584 -543 / -543 -50 / -50 Weight 116.29 kg 118.2 kg 120.973 kg 122.498 kg Microbiology Reports for the Last 24 Hours: Microbiology 11/17/24 12:51 Blood Blood Culture - Preliminary NO GROWTH AFTER 24 HOURS 11/13/24 11:00 Blood Blood Culture - Final NO GROWTH AFTER 5 DAYS 11/17/24 10:43 Blood Blood Culture - Preliminary NO GROWTH AFTER 24 HOURS 11/13/24 09:44 Blood Blood Culture - Final NO GROWTH AFTER 5 DAYS Constitutional: Present mild distress, obese, chronically ill appearing and cooperative Head: Present atraumatic and normocephalic Comment:: Vision impaired, eyes with opacification of corneas bilaterally Respiratory: Present rhonchi (Left upper lung field) and normal respiratory effort; Absent wheezes or crackles Cardiac: Present Reg Rate and Rhythm Comment:: Left chest tender to palpation GI: Present soft, distention, tenderness (Nonfocal) and normal bowel sounds Comments:: 2 abdominal hernias midline both reducible Extremities: Present normal inspection and full ROM Skin: Present intact; Absent erythema Neuro: Present Grossly Intact, alert, awake, oriented x 3 and moves all extremities Assessment and Plan *Assessment and plan (1) Severe sepsis: Status: Acute Category: Medical Code(s): A41.9 - Sepsis, unspecified organism; R65.20 - Severe sepsis without septic shock (2) ELMER (acute kidney injury): Status: Acute Category: Medical Code(s): N17.9 - Acute kidney failure, unspecified (3) Complicated UTI (urinary tract infection): Status: Acute Category: Medical Code(s): N39.0 - Urinary tract infection, site not specified (4) PAF (paroxysmal atrial fibrillation): Status: Acute Category: Medical Code(s): I48.0 - Paroxysmal atrial fibrillation (5) Lung cancer: Status: Acute Category: Medical Code(s): C34.90 - Malignant neoplasm of unspecified part of unspecified bronchus or lung (6) Obesity (BMI 30.0-34.9): Status: Chronic Category: Medical Code(s): E66.811 - Obesity, class 1 (7) COPD mixed type: Status: Acute Category: Medical Code(s): J44.9 - Chronic obstructive pulmonary disease, unspecified (8) Chronic hypoxic respiratory failure, on home oxygen therapy: Status: Acute Category: Medical Code(s): J96.11 - Chronic respiratory failure with hypoxia; Z99.81 - Dependence on supplemental oxygen (9) Polycystic kidney disease: Status: Acute Category: Medical Code(s): Q61.3 - Polycystic kidney, unspecified (10) Blind: Status: Acute Qualifiers: Left eye visual impairment category: left - unspecified blindness Right eye visual impairment category: right - unspecified blindness Qualified Code(s): H54.3 - Unqualified visual loss, both eyes Category: Medical Code(s): H54.7 - Unspecified visual loss (11) CKD (chronic kidney disease) stage 3, GFR 30-59 ml/min: Status: Chronic Category: Medical Code(s): N18.30 - Chronic kidney disease, stage 3 unspecified (12) Acute on chronic anemia: Status: Acute Category: Medical Code(s): D64.9 - Anemia, unspecified (13) Neutropenia: Problem Comment: Secondary to infection and chemotherapeutic drugs Status: Acute Category: Medical Code(s): D70.9 - Neutropenia, unspecified Plan Edi Toussaint is a 74-year-old male multiple comorbidities including CAD with PCI to LAD, lung cancer, chronic urinary retention with indwelling catheter, visual impairment, COPD, CHF, polycystic kidney disease, CKD 4. Presented to the ER with weakness. Found to be meeting sepsis criteria with white count of 2.8, Fever 102.4, and frankly abnormal urine with 4+ bacteria, 50-100 whites, 2+ leuk esterase and nitrate negative. Discussed case with ER physician, request admission for further management of sepsis. Has had waxing and waning of his sepsis. Seeing improvement in white count today. Initially had concern for a ltered mental status but after bowel movement showed improvement in disposition. Escalated to stepdown level of care from [facility] due to confusion and episode of vagal Lyng after his bowel movement. Clinical improvement however after small bolus. Continues to require patient management. If shows improvement over the next day or 2, will consider discharge back to nursing facility. Problems addressed as follows: #Severe sepsis, resolved #Sepsis #Complicated UTI secondary to chronic indwelling catheter #Pancytopenia #Recent chemoinfusion ? Underwent chemoinfusion on 11/06/2024, had been feeling weak since then. Presented with pancytopenia, fevers, tachycardia, CAUTI. ? Remains afebrile for over 24 hours. White count 4.8, hemoglobin 8.4. Platelets continue to drop to 22. No active signs of bleeding. - Urine culture 11/13 growing Klebsiella pneumonia sensitive to Zosyn . Catheter exchanged in the ER. ? Continue Zosyn 2.25 g every 6 hours day 7. Continue to renally dose. ? Given worsening thrombocytopenia and ELMER on CKD, DIC, TTP, HUS were considered. However, fibrinogen elevated (likely reactive) ruling out DIC and indirect bilirubin, LDH normal ruling out TTP/HUS. ? Discussion with Dr. Alford on 11/17/2024, oncology, who advised to continue course with IV antibiotics and close monitoring. He stated that pancytopenia will improve and thrombocytopenia was likely hitting his fredy. ? Large bowel movement today, feeling better. Advance diet. - Repeat CBC, CMP, magnesium ordered for the morning #Possible SBO/ileus ? CT abdomen/pelvis on 11/16/2024 suggested possible SBO and periumbilical hernia. Had a large bowel movement today. Passing gas. Hernia is reducible on exam. Will advance diet and monitor for tolerance. Coronary artery disease HFmrEF, chronic Paroxysmal A-fib - Perfusion scan from 09/10 with fixed perfusion defects. EF calculated at 43% - Heart cath performed 09/11/2024 with severe proximal and mid LAD disease. Received 3 contiguous stents. - Continue Lipitor 40 mg daily, metoprolol succinate 100 mg daily, Plavix 75 mg daily. Holding Eliquis in the setting of worsening anemia - Hold Jardiance in the setting of complicated UTI - Continue to monitor on telemetry - Consider restarting home Lasix tomorrow. Holding today given abnormal kidney function Left upper lobe lung adenocarcinoma ? Former smoker, following with pulmonology and oncology closely. ? Completed radiation therapy, however mass showing progression. - Oncology began chemotherapy in the past few weeks. Last dose on 12/07/2024. Complicates his ability to fight infection. Stable oxygen requirement at this time of 2-3 L. - Continue home gabapentin 100 mg twice daily and oxycodone 10 mg as needed 3 times a day. Monitor for toxicity GERD: Continue home PPI. Polycystic kidney disease ELMER on CKD 3b BPH - Baseline creatinine approximately 1.8-2.0. ? Creatinine 3.1, BUN 70. Magnesium 1.7 and potassium 4.8. Making urine. - consider restarting Lasix tomorrow. - Continue chronic Jason, exchanged on admission - Continue home tamsulosin 0.4 mg nightly continue oxcarbazepine 300 mg twice daily, suspect for mood. Patient denies known seizure disorder Full code Cardiac diet SCDs
--- NOTE | 2024-11-19 08:59 | PC.NURSE ---
0750 - Noted on monitor that pt's O2 sat had decreased to low-mid 80's on 3 L and HR increased to 120-130's. Upon assessment pt tachypneic, w/ exp wheezes throughout and difficult to arouse/ keep attention. Temp 100.3 orally at time of event. Noted that pt was in A-Fib on monitor - ekg ordered per protocol for rhythm change. 0758 - EKG obtained and MD notified of changes. MD to bedside @ 0805 to assess. Duoben given by RT. Pt re-assessed after neb tx and found to still have exp wheezes throughout, but air movement not as restricted. O2 sat peristently low-mid 80's after titrating up to 5 L on NC, pt placed on venturi mask @ 15L per RT. AM meds were then able to be given, pt took these w/ water w/o issue. Pt more awake and able to hold short conversation w/ staff. Currently resting in bed, resp even and less labored. Remains in A-Fib on monitor, rat 110's. Call diaz w/in reach. Bed alarm in place. No needs @ this time. POC ongoing.
--- NOTE | 2024-11-19 09:16 | PC.NURSE ---
Unable to collect sputum @ this time. Pt has intermittent dry, non-productive cough. Speci cup @ bedside for later collection.
--- NOTE | 2024-11-19 11:08 | PC.NURSE ---
Weaned from 15 L O2 via venturi mask to 9L @ this time
--- NOTE | 2024-11-19 11:13 | PC.NURSE ---
SPO2 decreased to 88-89%, O2 titrated to 12 L via venturi mask. Sat currently 90-91%.
--- NOTE | 2024-11-19 13:25 | PC.NURSE ---
RESP CARE NOTE: Pt placed briefly on non rebreather mask, due to momentary decrease in SPO2 and arousability. SPO2 increased to 99% within 5 mins of placement of non rebreather mask. Pt then placed back on 40% venturi mask after arousability increased. Will continue to monitor patient.
[2024-11-19] MEDS: 0.9 % SODIUM CHLORIDE 1000ML 500 ML 250 ML IV (13:44)
--- NOTE | 2024-11-19 14:10 | PC.NURSE ---
1330 - Pt assisted back to recliner after using the BSC by PT/OT and then became obtunded -unarousable to touch/ painful stimuli. SPO2 then decreased to 69% on venturi mask @ 15L. RT @ bedside, placed pt on non-rebreather, sat improved to high 80's and then 90's. HR fluctuating between 70-80's. SBP 80's. FSBS 225. MD called to bedside to assess. Pt slowly became more responsive. 500 ml NS bolus to be admin over 2 hours per provider and pt status upgraded to SD. Pt currently resting in recliner. Awakens easy, resp even non-labored, SPO2 96% on venturi mask, HR 80-90's (a-fib). Call diaz w/in reach. Clip alarm in place. POC ongoing.
--- NOTE | 2024-11-19 16:13 | PC.NURSE ---
Pt placed on 5 L O2 via nasal cannula, SPO2 sustaining 91%
--- NOTE | 2024-11-19 18:04 | PC.NURSE ---
O2 weaned to 4 L O2 via nasal cannula, SPO2 > 90%
[2024-11-19] MEDS: TAMSULOSIN 0.4MG CAPSULE 0.4 MG PO (21:09)
[2024-11-19] MEDS: ATORVASTATIN 40MG TABLET 40 MG PO (21:10)
[2024-11-19] MEDS: PANTOPRAZOLE 40MG TABLET 40 MG PO (21:10)
[2024-11-20] VITALS (23 sets, daily range): BP systolic 103–148; BP diastolic 50–82; PULSE 76–116; RESP 20–26; TEMP 36.6–38.5; O2SAT 90–98; BMI 31.9
[2024-11-20] MEDS: PIPERACILLIN/TAZO 2.25 GM in 0.9 % SODIUM CHLORIDE 50 ML IV ×4 (03:02→18:06)
[2024-11-20] MEDS: IPRATROPIUM/ALBUTEROL 3 ML NEB IH ×4 (06:10→23:03)
[2024-11-20] MEDS: FLUTICASONE/UMECLIDIN/VILANTER 100/62.5/25MCG INHALER 1 PUFF IH (06:10)
[2024-11-20 06:17] LABS: Hematocrit 25.0 % (42.0-52.0); Hemoglobin 7.8 g/dL (14.1-18.0); Immature Granulocytes % 2.0 %; Mean Corpuscular HGB Conc 31.2 g/dL (31.8-35.4); Mean Corpuscular Hemoglobin 27.0 pg (27.0-31.2); Mean Corpuscular Volume 86.5 fl (80-94); Nucleated Red Blood Cells % 0 %; Red Blood Count 2.89 M/mm3 (4.60-6.20); Red Cell Distribution Width-SD 51.0 fL; White Blood Count 4.9 K/mm3 (4.8-10.8)
[2024-11-20 06:19] LABS: POC Glucose,Bedside 225 gm/dL (70-110)
[2024-11-20 06:20] LABS: Platelet Count 20 K/mm3 (142-424)
[2024-11-20 06:29] LABS: Alanine Aminotransferase 33 U/L (12-78); Albumin Level 3.0 g/dl (3.5-5.0); Albumin/Globulin Ratio 0.9 (1.1-1.8); Alkaline Phosphatase 125 U/L (38-126); Anion Gap 15.7 mEq/L (5-15); Aspartate Amino Transferase 50 U/L (17-59); Bilirubin,Total 2.3 mg/dl (0.2-1.3); Blood Urea Nitrogen 74 mg/dl (9-20); Calcium 8.2 mg/dl (8.4-10.2); Carbon Dioxide 20 mmol/L (22.0-30.0); Chloride 108 mmol/L (98-107); Creatinine Clearance Estimated 31 mL/min (50-200); Creatinine,Serum 3.40 mg/dl (0.66-1.25); Estimated Glomerular Filt Rate 18 ml/min (>60); GFR (African American) 21 ML/MIN (>60); Globulin 3.2 g/dL (1.3-3.2); Glucose 115 mg/dl (74-100); Potassium 4.7 mmoL/L (3.5-5.1); Sodium 139 mmol/L (136-145); Total Protein,Serum 6.2 g/dl (6.3-8.2)
[2024-11-20 06:47] LABS: Magnesium 1.6 mg/dl (1.6-2.3)
--- NOTE | 2024-11-20 06:55 | PC.NURSE ---
Patient is resting in bed with HOB elevated and O2 at 5L/NC and is tolerating well. Patient did have BM throughout the night and is now sitting up in bed preparing to have breakfast. Dr Ramirez was notified of patient's critical lab results and No new orders obtained.
[2024-11-20 07:45] LABS: Creatine Kinase 198 U/L (55-170)
[2024-11-20 08:28] LABS: Hypochromasia 1+; Total Cells Counted 100
--- NOTE | 2024-11-20 08:43 | P.PN_ITS ---
Subjective *Date: 11/20/24 *Time: 08:43 Medical Exam Vital signs and Labs for Last 24 Hours: Vital Signs Temp Pulse Pulse Resp BP Pulse Ox O2 Del Method 11/20/24 08:00 99.7 F H 86 26 H 125/54 L 92 L Nasal Cannula 11/20/24 06:11 84 11/20/24 06:11 83 11/20/24 06:11 94 L Nasal Cannula 11/20/24 05:00 Room Air 11/20/24 04:30 100 F H 85 26 H 90 L 11/20/24 04:30 128/72 11/20/24 04:00 82 11/20/24 04:00 83 25 H 126/65 93 L 11/20/24 02:30 148/77 H 11/20/24 02:14 Nasal Cannula 11/20/24 02:00 79 20 145/76 H 96 Nasal Cannula 11/20/24 01:01 116 H 20 129/82 97 Nasal Cannula 11/20/24 01:00 Nasal Cannula 11/20/24 00:01 97.9 F 83 20 129/78 98 Nasal Cannula 11/20/24 00:00 100 H 11/20/24 00:00 97 Nasal Cannula 11/19/24 23:43 89 20 144/94 H 98 11/19/24 23:30 98 H 21 150/100 H 95 11/19/24 23:04 110 H 11/19/24 23:04 95 H 11/19/24 23:00 Nasal Cannula 11/19/24 23:00 98 H 21 145/97 H 95 11/19/24 22:35 100 H 16 141/99 H 96 11/19/24 22:31 99 H 19 159/102 H 98 11/19/24 22:00 106 H 20 139/71 97 11/19/24 21:31 89 18 124/81 96 11/19/24 21:01 113 H 19 124/82 96 11/19/24 21:00 Nasal Cannula 11/19/24 20:30 96 H 21 133/85 96 11/19/24 20:00 95 Nasal Cannula 11/19/24 20:00 110 H 11/19/24 20:00 117/74 11/19/24 20:00 97.9 F 95 H 19 117/74 95 11/19/24 19:31 109/89 L 11/19/24 19:31 100 H 19 95 11/19/24 19:00 99 H 21 92 L 11/19/24 19:00 118/90 11/19/24 18:39 100 H 11/19/24 18:39 110 H 11/19/24 18:39 90 L Nasal Cannula 11/19/24 18:37 Nasal Cannula 11/19/24 18:30 103/71 L 11/19/24 18:30 97 F L 105 H 19 118/90 89 L 11/19/24 18:00 93 H 21 106/73 L 96 Nasal Cannula 11/19/24 17:31 22 101/74 L 11/19/24 17:01 88 18 112/70 93 L Nasal Cannula 11/19/24 16:51 Nasal Cannula 11/19/24 16:31 108 H 18 118/83 94 L Nasal Cannula 11/19/24 16:02 98.5 F 81 18 105/62 L 94 L Venturi Mask 11/19/24 16:00 87 11/19/24 15:00 Venturi Mask 11/19/24 14:00 95 H 24 92 L Venturi Mask 11/19/24 14:00 99 H 14 94/55 L 96 Venturi Mask 11/19/24 13:00 Venturi Mask 11/19/24 12:01 99.3 F 100 H 21 86/67 L 86 L Nasal Cannula 11/19/24 12:00 120 H 11/19/24 11:26 106 H 11/19/24 11:26 109 H 11/19/24 11:26 92 L Venturi Mask 11/19/24 10:53 Venturi Mask 11/19/24 08:55 Venturi Mask O2 Flow Rate FiO2 11/20/24 08:00 5 11/20/24 06:11 11/20/24 06:11 11/20/24 06:11 5 11/20/24 05:00 11/20/24 04:30 11/20/24 04:30 11/20/24 04:00 11/20/24 04:00 11/20/24 02:30 11/20/24 02:14 5 11/20/24 02:00 5 11/20/24 01:01 5 11/20/24 01:00 5 11/20/24 00:01 5 11/20/24 00:00 11/20/24 00:00 11/19/24 23:43 11/19/24 23:30 11/19/24 23:04 11/19/24 23:04 11/19/24 23:00 5 11/19/24 23:00 11/19/24 22:35 11/19/24 22:31 11/19/24 22:00 11/19/24 21:31 11/19/24 21:01 11/19/24 21:00 5 11/19/24 20:30 11/19/24 20:00 5 11/19/24 20:00 11/19/24 20:00 11/19/24 20:00 11/19/24 19:31 11/19/24 19:31 11/19/24 19:00 11/19/24 19:00 11/19/24 18:39 11/19/24 18:39 11/19/24 18:39 5 11/19/24 18:37 4 11/19/24 18:30 11/19/24 18:30 11/19/24 18:00 5 11/19/24 17:31 11/19/24 17:01 5 11/19/24 16:51 5 11/19/24 16:31 5 11/19/24 16:02 15 11/19/24 16:00 11/19/24 15:00 9 11/19/24 14:00 15 11/19/24 14:00 15 11/19/24 13:00 12 11/19/24 12:01 5 11/19/24 12:00 11/19/24 11:26 11/19/24 11:26 11/19/24 11:26 12 40 11/19/24 10:53 15 11/19/24 08:55 15 Intake and Output 11/19/24 11/20/24 11/20/24 23:59 07:59 15:59 Intake Total 350 / 1580 340 / 340 Output Total 350 / 1400 975 / 975 Balance 0 / 180 -635 / -635 Intake: Intake, Oral Amount 300 / 880 240 / 240 Intake, Total IV Amount 50 / 700 100 / 100 Piperacillin/Tazo 2.25 gm In 0. 50 / 200 100 / 100 9 % Sodium Chloride 50 ml @ 100 mls/hr IV Q6H [facility] Rx#:[id number] Output: Output, Urine Amount 975 / 975 Output, Urine Amount (Catheter) 350 / 850 Jason 350 / 850 Other: Number of Unmeasured Voids 0 0 Number of Bowel Movements 1 1 Weight 119.023 kg Patient Weight 11/20/24 23:59 Weight 119.023 kg Laboratory Results - last 24 hr 11/17/24 05:50: Haptoglobin 367 H 11/19/24 13:31: POC Glucose 225 H 11/20/24 05:08: WBC 4.9, RBC 2.89 L, Hgb 7.8 L, Hct 25.0 L, MCV 86.5, MCH 27.0, MCHC 31.2 L, RDW 16.3, Plt Count 20 L*, MPV 11.8 H, Neut % (Auto) 95.0 H, Lymph % (Auto) 2.0 L, [place] % (Auto) 0.8 L, Eos % (Auto) 0.2, Baso % (Auto) 0.0 L, Neut # (Auto) 4.7, Lymph # (Auto) 0.1 L, [place] # (Auto) 0.0 L, Eos # (Auto) 0.0, Baso # (Auto) 0.0, Total Counted 100, Neutrophils % (Manual) 98 H, Lymphocytes % (Manual) 2 L, Platelet Estimate Marked decrease, Hypochromasia 1+, Sodium 139, Potassium 4.7, Chloride 108 H, Carbon Dioxide 20 L, Anion Gap 15.7 H, BUN 74 H, Creatinine 3.40 H, Estimated Creat Clear 31, Estimated GFR 18 L*, Est GFR ( Amer) 21 L, Glucose 115 H D, Calcium 8.2 L, Magnesium 1.6, Total Bilirubin 2.3 H, AST 50, ALT 33, Alkaline Phosphatase 125, Total Creatine Kinase 198 H D, Total Protein 6.2 L, Albumin 3.0 L, Globulin 3.2, Albumin/Globulin Ratio 0.9 L I & O for Labs for Last 24 Hours: Intake & Output 11/17/24 11/18/24 11/19/24 11/20/24 23:59 23:59 23:59 23:59 Intake Total 2042.416 / 2264.416 1482 / 1482 1340 / 1580 340 / 340 Output Total 3295 / 3295 2024 1000 / 1400 975 / 975 Balance -1252.584 / -1030.584 -543 / -543 340 / 180 -635 / -635 Weight 118.2 kg 120.973 kg 122.498 kg 119.023 kg Microbiology Reports for the Last 24 Hours: Microbiology 11/17/24 12:51 Blood Blood Culture - Preliminary NO GROWTH AFTER 48 HOURS 11/17/24 10:43 Blood Blood Culture - Preliminary NO GROWTH AFTER 48 HOURS The patient's infection will respond to the chosen ABx?: Yes (BLOOD CX NO GROW TH, URINE CX K. PNEUMONIAE SENSITIVE TO ZOSYN) Is the patient receiving the right drug, dose, and route?: Yes Could a more targeted ABx be ordered?: No How long ABx needed (days)?: 7
[2024-11-20] MEDS: CLOPIDOGREL 75MG TAB 75 MG PO (09:15)
[2024-11-20] MEDS: DOXYCYCLINE HYCL 100 MG TABLET PO ×2 (09:16→20:19)
[2024-11-20] MEDS: ESCITALOPRAM 10MG TABLET 5 MG PO (09:16)
[2024-11-20] MEDS: FINASTERIDE 5MG TABLET 5 MG PO (09:17)
[2024-11-20] MEDS: METOPROLOL SUCCINATE XL 100MG TABLET 100 MG PO (09:17)
[2024-11-20] MEDS: POLYETHYLENE GLYCOL 3350 17 GM PACKET PO (09:18)
[2024-11-20] MEDS: TIMOLOL 0.5% OPTH SOLN 5ML OP (09:20)
[2024-11-20] MEDS: LIDOCAINE 5% TRANSDERMAL PATCH 1 EACH TD (09:22)
[2024-11-20] MEDS: GABAPENTIN 100MG CAPSULE 100 MG PO ×2 (09:27→20:19)
[2024-11-20] MEDS: OXYCODONE 5MG IMMEDIATE RELEASE TABLET 10 MG PO ×3 (09:27→20:18)
--- NOTE | 2024-11-20 12:36 | US_ITS ---
FINAL REPORT TECHNIQUE: Sonographic images of the kidneys and retroperitoneum were obtained in the longitudinal and transverse planes. CLINICAL HISTORY: Persistent ELMER FINDINGS: The right kidney measures 14.3 cm in xenf-ov-mlew length. There is no hydronephrosis. Multiple right renal cysts are seen. An index lesion measures 4.4 cm in the mid kidney. Cortical echogenicity and thickness are normal. The left kidney measures 15.7 cm in stds-of-stbe length. There are multiple left renal cysts measuring up to 7.7 cm. No hydronephrosis, solid mass, or stone. Cortical echogenicity and thickness are normal. IMPRESSION: Multiple bilateral renal cysts. Reviewed, Interpreted and Dictated by Gale Mcneill MD Transcribed by Anna Marie Zarate Authenticated and [facility]
[2024-11-20] MEDS: ACETAMINOPHEN 500MG TAB 500 MG PO (13:17)
[2024-11-20 13:49] LABS: Vitamin B12 879 pg/mL (239-931)
--- NOTE | 2024-11-20 14:37 | PC.NURSE ---
Reassessed patient. lung sounds still contains expiratory wheezes, and crackles in bilateral bases. bowel sounds are active in all quads. nad noted. pt has appeared to rest in bed this shift. pt was noted to have decreased O2 sats at approx 1230. pt o2 increased to 5 lpm. sats improved. pt temp was also checked rectally and noted to be 101.3. pt treated w/ tylenol.
--- NOTE | 2024-11-20 16:50 | EXP.PN ---
Subjective *Date: 11/20/24 *Time: 16:50 Interval history: Pleasant, no acute distress. Exam Data for Last 24 hours Vital signs and Labs for Last 24 Hours: Temp Pulse Resp BP Pulse Ox O2 Del Method O2 Flow Rate 98.7 F 76 21 103/50 L 95 Nasal Cannula 5 11/20/24 16:01 11/20/24 16:01 11/20/24 16:01 11/20/24 16:01 11/20/24 16:01 11/20/24 16:11/20/24 16:01 FiO2 40 11/19/24 11:26 Laboratory Results - last 24 hr 11/19/24 13:31: POC Glucose 225 H 11/20/24 05:08: WBC 4.9, RBC 2.89 L, Hgb 7.8 L, Hct 25.0 L, MCV 86.5, MCH 27.0, MCHC 31.2 L, RDW 16.3, Plt Count 20 L*, MPV 11.8 H, Neut % (Auto) 95.0 H, Lymph % (Auto) 2.0 L, [place] % (Auto) 0.8 L, Eos % (Auto) 0.2, Baso % (Auto) 0.0 L, Neut # (Auto) 4.7, Lymph # (Auto) 0.1 L, [place] # (Auto) 0.0 L, Eos # (Auto) 0.0, Baso # (Auto) 0.0, Total Counted 100, Neutrophils % (Manual) 98 H, Lymphocytes % (Manual) 2 L, Platelet Estimate Marked decrease, Hypochromasia 1+, Sodium 139, Potassium 4.7, Chloride 108 H, Carbon Dioxide 20 L, Anion Gap 15.7 H, BUN 74 H, Creatinine 3.40 H, Estimated Creat Clear 31, Estimated GFR 18 L*, Est GFR ( Amer) 21 L, Glucose 115 H D, Calcium 8.2 L, Magnesium 1.6, Total Bilirubin 2.3 H, AST 50, ALT 33, Alkaline Phosphatase 125, Total Creatine Kinase 198 H D, Total Protein 6.2 L, Albumin 3.0 L, Globulin 3.2, Albumin/Globulin Ratio 0.9 L, Vitamin B12 879 I & O for Last 24 hours: Intake & Output 11/17/24 11/18/24 11/19/24 11/20/24 23:59 23:59 23:59 23:59 Intake Total 2042.416 / 2264.416 1482 / 1482 1340 / 1580 750 / 750 Output Total 3295 / 3295 2024 1000 / 1400 1425 / 1425 Balance -1252.584 / -1030.584 -543 / -543 340 / 180 -675 / -675 Weight 118.2 kg 120.973 kg 122.498 kg 119.023 kg Microbiology Reports for the Last 24 Hours: Microbiology 11/17/24 12:51 Blood Blood Culture - Preliminary NO GROWTH AFTER 48 HOURS Constitutional Constitutional: no acute distress Comments: Bilateral blindness. Very pleasant. *Routine HEENT Exam Head: Present normocephalic Eye: Present EOMI and PERRL ENT: Present mucous membranes moist *Routine Neck Exam Neck: Present supple; Absent lymphadenopathy *Routine Respiratory Exam Respiratory: Present CTA bilaterally *Routine Cardiovascular Exam Cardiovascular: Present RRR *Routine Abdominal Exam Abdominal: Present soft and normoactive bowel sounds; Absent tenderness *Routine Extremities Exam Extremities: Absent cyanosis, clubbing or edema Comments: Chronic venous stasis changes. *Routine Skin Exam Skin: Present warm; Absent rash *Routine Neurological Exam Neurological: Present alert and oriented X3 Assessment and Plan *Assessment and plan (1) Severe sepsis: Status: Acute Category: Medical Code(s): A41.9 - Sepsis, unspecified organism; R65.20 - Severe sepsis without septic shock (2) ELMER (acute kidney injury): Status: Acute Category: Medical Code(s): N17.9 - Acute kidney failure, unspecified (3) Complicated UTI (urinary tract infection): Status: Acute Category: Medical Code(s): N39.0 - Urinary tract infection, site not specified (4) PAF (paroxysmal atrial fibrillation): Status: Acute Category: Medical Code(s): I48.0 - Paroxysmal atrial fibrillation (5) Lung cancer: Status: Acute Category: Medical Code(s): C34.90 - Malignant neoplasm of unspecified part of unspecified bronchus or lung (6) Obesity (BMI 30.0-34.9): Status: Chronic Category: Medical Code(s): E66.811 - Obesity, class 1 (7) COPD mixed type: Status: Acute Category: Medical Code(s): J44.9 - Chronic obstructive pulmonary disease, unspecified (8) Chronic hypoxic respiratory failure, on home oxygen therapy: Status: Acute Category: Medical Code(s): J96.11 - Chronic respiratory failure with hypoxia; Z99.81 - Dependence on supplemental oxygen (9) Polycystic kidney disease: Status: Acute Category: Medical Code(s): Q61.3 - Polycystic kidney, unspecified (10) Blind: Status: Acute Qualifiers: Right eye visual impairment category: right - unspecified blindness Left eye visual impairment category: left - unspecified blindness Qualified Code(s): H54.3 - Unqualified visual loss, both eyes Category: Medical Code(s): H54.7 - Unspecified visual loss (11) CKD (chronic kidney disease) stage 3, GFR 30-59 ml/min: Status: Chronic Category: Medical Code(s): N18.30 - Chronic kidney disease, stage 3 unspecified (12) Acute on chronic anemia: Status: Acute Category: Medical Code(s): D64.9 - Anemia, unspecified (13) Neutropenia: Problem Comment: Secondary to infection and chemotherapeutic drugs Status: Acute Category: Medical Code(s): D70.9 - Neutropenia, unspecified Plan Edi Toussaint is a 74-year-old male multiple comorbidities including CAD with PCI to LAD, lung cancer, chronic urinary retention with indwelling catheter, visual impairment, COPD, CHF, polycystic kidney disease, CKD 4. Presented to the ER with weakness. Found to be meeting sepsis criteria with white count of 2.8, Fever 102.4, and frankly abnormal urine with 4+ bacteria, 50-100 whites, 2+ leuk esterase and nitrate negative. Discussed case with ER physician, request admission for further management of sepsis. Has had waxing and waning of his sepsis. #Severe sepsis, resolved #Sepsis #Complicated UTI secondary to chronic indwelling catheter #Pancytopenia #Recent chemoinfusion ? Underwent chemoinfusion on 11/06/2024, had been feeling weak since then. Presented with pancytopenia, fevers, tachycardia, CAUTI. ? Had a temperature of 101.3 this afternoon, but WBC up to 4.9 today. Hemoglobin down to 7.8 from 8.5 yesterday, platelets down to 20 today. - Urine culture 11/13 growing Klebsiella pneumonia sensitive to Zosyn . Catheter exchanged in the ER. ? Continue Zosyn 2.25 g every 6 hours day 8. Continue to renally dose. ? Given worsening thrombocytopenia and ELMER on CKD, DIC, TTP, HUS were considered. However, fibrinogen elevated (likely reactive) ruling out DIC and indirect bilirubin, LDH normal ruling out TTP/HUS. ? Will consider treatment of HIT tomorrow if platelets continue to drop. Patient had Lovenox on his previous admission mid October. ? Discussion with Dr. Alford on 11/17/2024, oncology, who advised to continue course with IV antibiotics and close monitoring. He stated that pancytopenia will improve and thrombocytopenia was likely hitting his fredy. - Repeat CBC, CMP, magnesium ordered for the morning. #Possible SBO/ileus ? CT abdomen/pelvis on 11/16/2024 suggested possible SBO in periumbilical hernia. Having bowel movements, did have a vagal episode after large bowel movement admission. Hernia is reducible on exam. Will advance diet and monitor for tolerance. Coronary artery disease HFmrEF, chronic Paroxysmal A-fib - Perfusion scan from 09/10 with fixed perfusion defects. EF calculated at 43% - Heart cath performed 09/11/2024 with severe proximal and mid LAD disease. Received 3 contiguous stents. - Continue Lipitor 40 mg daily, metoprolol succinate 100 mg daily, Plavix 75 mg daily. Holding Eliquis in the setting of worsening anemia - Hold Jardiance in the setting of complicated UTI - Continue to monitor on telemetry - Consider restarting home Lasix tomorrow. Holding today given abnormal kidney function. Seems euvolemic at this time. Left upper lobe lung adenocarcinoma ? Former smoker, following with pulmonology and oncology closely. ? Completed radiation therapy, however mass showing progression. - Oncology began chemotherapy in the past few weeks. Last dose on 12/07/2024. Complicates his ability to fight infection. Stable oxygen requirement at this time of 2-3 L. - Continue home gabapentin 100 mg twice daily and oxycodone 10 mg as needed 3 times a day. Monitor for toxicity GERD: Continue home PPI. Polycystic kidney disease ELMER on CKD 3b BPH - Baseline creatinine approximately 1.8-2.0. ? Creatinine 3.4, making urine. ? Renal ultrasound 11/20/2024 shows known cyst in kidney. - consider restarting Lasix tomorrow. - Continue chronic Jason, exchanged on admission - Continue home tamsulosin 0.4 mg nightly continue oxcarbazepine 300 mg twice daily, suspect for mood. Patient denies known seizure disorder Full code Cardiac diet SCDs
[2024-11-20] MEDS: FUROSEMIDE 40MG/4ML VIAL 40 MG IV (18:49)
[2024-11-20] MEDS: ATORVASTATIN 40MG TABLET 40 MG PO (20:19)
[2024-11-20] MEDS: TAMSULOSIN 0.4MG CAPSULE 0.4 MG PO (20:19)
[2024-11-20] MEDS: PANTOPRAZOLE 40MG TABLET 40 MG PO (20:19)
[2024-11-21] VITALS (19 sets, daily range): BP systolic 110–140; BP diastolic 63–116; PULSE 59–84; RESP 15–26; TEMP 36.8–38.6; O2SAT 87–97; BMI 31.8
[2024-11-21] MEDS: PIPERACILLIN/TAZO 2.25 GM in 0.9 % SODIUM CHLORIDE 50 ML IV ×5 (00:06→23:56)
[2024-11-21 04:59] LABS: Hematocrit 24.9 % (42.0-52.0); Hemoglobin 7.6 g/dL (14.1-18.0); Immature Granulocytes % 6.9 %; Mean Corpuscular HGB Conc 30.5 g/dL (31.8-35.4); Mean Corpuscular Hemoglobin 27.0 pg (27.0-31.2); Mean Corpuscular Volume 88.3 fl (80-94); Nucleated Red Blood Cells % 0 %; Red Blood Count 2.82 M/mm3 (4.60-6.20); Red Cell Distribution Width-SD 53.5 fL; White Blood Count 6.2 K/mm3 (4.8-10.8)
[2024-11-21 05:00] LABS: Alanine Aminotransferase 39 U/L (12-78); Albumin Level 3.0 g/dl (3.5-5.0); Albumin/Globulin Ratio 0.9 (1.1-1.8); Alkaline Phosphatase 126 U/L (38-126); Anion Gap 16.8 mEq/L (5-15); Aspartate Amino Transferase 59 U/L (17-59); Bilirubin,Total 2.4 mg/dl (0.2-1.3); Blood Urea Nitrogen 77 mg/dl (9-20); Calcium 8.5 mg/dl (8.4-10.2); Carbon Dioxide 18 mmol/L (22.0-30.0); Chloride 110 mmol/L (98-107); Creatine Kinase 151 U/L (55-170); Creatinine Clearance Estimated 25 mL/min (50-200); Estimated Glomerular Filt Rate 14 ml/min (>60); GFR (African American) 17 ML/MIN (>60); Globulin 3.3 g/dL (1.3-3.2); Glucose 101 mg/dl (74-100); Platelet Count 19 K/mm3 (142-424); Potassium 4.8 mmoL/L (3.5-5.1); Sodium 140 mmol/L (136-145); Total Protein,Serum 6.3 g/dl (6.3-8.2)
[2024-11-21 05:06] LABS: Creatinine,Serum 4.20 mg/dl (0.66-1.25)
[2024-11-21 05:21] LABS: Magnesium 1.7 mg/dl (1.6-2.3)
[2024-11-21] MEDS: IPRATROPIUM/ALBUTEROL 3 ML NEB IH ×4 (05:29→23:34)
[2024-11-21] MEDS: FLUTICASONE/UMECLIDIN/VILANTER 100/62.5/25MCG INHALER 1 PUFF IH (05:29)
[2024-11-21 05:49] LABS: Total Cells Counted 100
[2024-11-21 05:50] LABS: Hypochromasia 1+
[2024-11-21 06:03] LABS: Sodium,Urine Random 60.0 mmol/L (30-90)
[2024-11-21 06:29] LABS: Folate > 20.00 ng/mL
--- NOTE | 2024-11-21 07:38 | PC.NURSE ---
Talked to Onesimo Rasmussen MD about patient being changed from Med/surge status to step down status. Patient is currently on 5 liters nc and when talking or eating drops down into the low 80s. Venturi mask is placed on patient when he desats to help him recover. Patients kidney function is trending up. at this time he wants to give patient 500 of fluid and repeat bnp at 1300.
--- NOTE | 2024-11-21 07:58 | PC.NURSE ---
Called Onesimo Rasmussen MD about getting something for nasal congestion due to patient being very congested. He is going to order flonase.
--- NOTE | 2024-11-21 08:08 | CT_ITS ---
FINAL REPORT TECHNIQUE: Axial imaging of the chest was obtained without contrast. Reformatted images were also obtained and reviewed.This study was performed with techniques to keep radiation doses as low as reasonably achievable, (ALARA). Individualized dose reduction technique using automated exposure control or adjustment of mA and/or kV according to the patient's size were employed. CLINICAL HISTORY: Worsening hypoxia, especially after eating COMPARISON: 11/17/2024 FINDINGS: There are a few small, but stable left axillary lymph nodes. Abnormal attenuation in the left axilla is unchanged. There is no right axillary lymphadenopathy. There is a right prevascular lymph node measuring 22 mm, unchanged. AP window and subcarinal lymphadenopathy is stable. Heart size is enlarged. Small left pleural effusion is unchanged. There is been no significant change in left upper lobe ground glass and airspace opacity. Subtle ground glass opacity in the right lung is also stable. There are bilateral, hypodense renal lesions which are incompletely imaged. No acute osseous abnormality. No pneumothorax. IMPRESSION: No change in left upper lobe consolidation and most consistent with pneumonia, present since mid October, consider bronchoscopy for further evaluation. Abnormal attenuation in the left axilla, similar to prior exam. Inflammatory process not excluded. Stable lymphadenopathy. Reviewed, Interpreted and Dictated by Gale Mcneill MD Transcribed by Anna Marie Zarate Authenticated and [facility]
[2024-11-21] MEDS: LIDOCAINE 5% TRANSDERMAL PATCH 1 EACH TD (08:44)
[2024-11-21] MEDS: FLUTICASONE PROP 50MCG NASAL SPRAY 16GM 2 SPRAY NS (08:44)
[2024-11-21] MEDS: TIMOLOL 0.5% OPTH SOLN 5ML OP (08:45)
[2024-11-21] MEDS: GABAPENTIN 100MG CAPSULE 100 MG PO ×2 (08:45→20:31)
[2024-11-21] MEDS: METOPROLOL SUCCINATE XL 100MG TABLET 100 MG PO (08:45)
[2024-11-21] MEDS: DOXYCYCLINE HYCL 100 MG TABLET PO (08:45)
[2024-11-21] MEDS: FINASTERIDE 5MG TABLET 5 MG PO (08:45)
[2024-11-21] MEDS: CLOPIDOGREL 75MG TAB 75 MG PO (08:45)
[2024-11-21] MEDS: POLYETHYLENE GLYCOL 3350 17 GM PACKET PO (08:46)
[2024-11-21] MEDS: ESCITALOPRAM 10MG TABLET 5 MG PO (08:46)
[2024-11-21] MEDS: OXYCODONE 5MG IMMEDIATE RELEASE TABLET 10 MG PO ×3 (08:46→20:30)
[2024-11-21] MEDS: 0.9 % SODIUM CHLORIDE 1000ML 500 ML 250 ML IV (08:58)
[2024-11-21 09:15] LABS: Lactate Venous 1.6 mmol/L (0.4-2.0); VBG HCO3 21.1 mmol/L (23-30); VBG PCO2 36.6 mmol/L (35-51); VBG PH 7.38 mmol/L (7.31-7.41); VBG PO2 59.5 mmol/L (28-40)
[2024-11-21] MEDS: METHYLPREDNISOLONE SOD SUCC 40MG VIAL 40 MG IV (11:15)
--- NOTE | 2024-11-21 11:15 | EXP.PULM.CON ---
History of Present Illness History of present illness: Mr. Toussaint is a 74-year-old male resident of [facility] detention prior smoker with poor vision, greater than [id number] smoking adenocarcinoma lung s/p radiation presented to the hospital 11/13/2024 with primary complaint of worsening weakness and tremor status post fall. Patient also found to be hypoxic upon presentation to the ER. Since then patient being managed for sepsis from presumed urinary tract infection. [facility] Disclaimer: The information contained in this section may have been updated after the patient was seen, as this information can be updated by other users. Medical History (Updated 11/21/24 @ 15:02 by Socorro Kim APRN) HLD (hyperlipidemia) Hypertension CAD in [place] artery Acute and chronic respiratory failure with hypoxia Primary lung cancer CKD (chronic kidney disease) stage 3, GFR 30-59 ml/min Acute exacerbation of chronic obstructive pulmonary disease AARON (obstructive sleep apnea) Lung cancer COPD mixed type PAF (paroxysmal atrial fibrillation) Knee pain, right Hyperkalemia Polycystic kidney UTI (urinary tract infection) Acute renal injury Jason catheter in place Pain in left arm Chronic hypoxic respiratory failure, on home oxygen therapy Hx of prostatic malignancy Colon cancer Knee pain Heart failure with preserved ejection fraction Peripheral edema Adenocarcinoma of lung Chronic obstructive pulmonary disease CKD (chronic kidney disease) Stopped smoking with greater than 30 pack year history CVA (cerebral vascular accident) Blind Congestive heart failure Renal stones Gastroesophageal reflux 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) CVA (cerebral vascular accident) Obesity (BMI 30.0-34.9) Elevated left ventricular end-diastolic pressure (LVEDP) Diastolic dysfunction Pulmonary HTN Surgical History S/P coronary artery stent placement Hx of total knee arthroplasty History of bowel resection History of bronchoscopy History of ureteroscopy History of colonoscopy History of colectomy Family History Unknown Cancer Other Family history of cancer Social History Smoking Status: Never smoker alcohol intake: never substance use type: denies use current occupational status: disabled Travel in the last 8 weeks?: None caregiver/support person: Yes household members: none housing: detention lives independently: No marital status: single current occupation: [employer] current occupational exposures/hazards: No caffeine: Yes special milad needs: No agree to transfusion: No do you feel safe at home: Yes victim of physical abuse: No victim of emotional abuse: No victim of sexual abuse: No would you like helpful sources: No Have you lived/traveled outside [place] in past 30 days?: No Contact w/someone who lives/traveled outside US past 30 days?: No Exposure to someone with infectious disease in past 14 days?: No Do you have a fever (greater than 100.4 F or 38 C)?: No Have you tested positive for COVID-19?: No Exposed to someone with COVID-19 in past 14 days?: No Do you have a sore throat?: No Do you have a cough?: No Do you have any weakness?: No Are you experiencing any nausea/vomitting?: No Do you have any diarrhea?: No Are you experiencing any unusual bleeding?: No Do you have any muscle aches/pain?: No Do you have any abdominal pain?: No Are you experiencing loss of taste or smell?: No Review of Systems Constitutional Constitutional: Reports anorexia and Reports fatigue Eyes Eyes: Denies eye discharge, Denies dry eyes, Denies irritation and Denies itchy eyes ENT Ears, Nose, Mouth, and Throat: Denies epistaxis, Denies facial pain, Denies lip swelling and Denies throat swelling *Cardiovascular Cardiovascular: Reports dyspnea and Reports dyspnea on exertion *Respiratory Respiratory: Reports chest congestion, Reports cough, Reports dyspnea, Reports dyspnea on exertion and Reports excessive phlegm production *Gastrointestinal Gastrointestinal: Denies abdominal pain, Denies belching and Denies cramping *Musculoskeletal Musculoskeletal: Reports back pain, Reports myalgias and Reports other (No small joint swelling or Pain) Psychiatric Psychiatric: Denies homicidal ideation and Denies suicidal ideation Endocrine Endocrine: Reports fatigue and Denies heat intolerance Hematologic/Lymphatic Hematologic/Lymphatic: Denies easy bleeding and Denies lymphadenopathy Allergic/Immunologic Allergic/Immunologic: Denies itchy eyes, Denies lip swelling and Denies throat swelling Pulmonology Exam Inpatient Vital signs and Labs for Last 24 Hours: Temp Pulse Resp BP Pulse Ox O2 Del Method O2 Flow Rate 98.4 F 78 21 135/90 90 L Nasal Cannula 4 11/21/24 08:02 11/21/24 10:56 11/21/24 10:00 11/21/24 10:00 11/21/24 10:56 11/21/24 11:00 11/21/24 11:00 FiO2 40 11/19/24 11:26 Laboratory Results - last 24 hr 11/20/24 05:08: Vitamin B12 879 11/21/24 04:35: WBC 6.2 D, RBC 2.82 L, Hgb 7.6 L, Hct 24.9 L, MCV 88.3, MCH 27.0, MCHC 30.5 L, RDW 16.5, Plt Count 19 L*, MPV 10.6 H, Neut % (Auto) 89.8 H, Lymph % (Auto) 1.9 L, [place] % (Auto) 1.0 L, Eos % (Auto) 0.2, Baso % (Auto) 0.2, Neut # (Auto) 5.6, Lymph # (Auto) 0.1 L, [place] # (Auto) 0.1, Eos # (Auto) 0.0, Baso # (Auto) 0.0, Total Counted 100, Neutrophils % (Manual) 99 H, Lymphocytes % (Manual) 1 L, Platelet Estimate Marked decrease, Hypochromasia 1+, Sodium 140, Potassium 4.8, Chloride 110 H, Carbon Dioxide 18 L, Anion Gap 16.8 H, BUN 77 H, Creatinine 4.20 H D, Estimated Creat Clear 25, Estimated GFR 14 L*, Est GFR ( Amer) 17 L*, Glucose 101 H, Calcium 8.5, Magnesium 1.7, Total Bilirubin 2.4 H, AST 59, ALT 39, Alkaline Phosphatase 126, Total Creatine Kinase 151, Total Protein 6.3, Albumin 3.0 L, Globulin 3.3 H, Albumin/Globulin Ratio 0.9 L, Folate > 20.00 11/21/24 05:11: Ur Random Urea Nitrogn 457, Urine Creatinine 51, Urine Sodium 60.0, Urine Total Protein 87.0 H 11/21/24 09:20: VBG pH 7.38, VBG pCO2 36.6, VBG pO2 59.5 H, VBG HCO3 21.1 L, VBG Total CO2 22.2 L, VBG O2 Saturation 89.8 H, VBG Base Excess -4.0 L, VBG Lactic Acid 1.6 I & O for Labs for Last 24 Hours: Intake & Output 11/18/24 11/19/24 11/20/24 11/21/24 23:59 23:59 23:59 23:59 Intake Total 1482 / 1482 1340 / 1580 800 / 800 590 / 590 Output Total 2024 1000 / 1400 1625 / 2225 1000 / 1000 Balance -543 / -543 340 / 180 -825 / -1425 -410 / -410 Weight 266 lb 11.2 oz 270 lb 1 oz 262 lb 6.4 oz 261 lb 1.6 oz Microbiology Reports for the Last 24 Hours: Microbiology 11/17/24 10:43 Blood Blood Culture - Preliminary NO GROWTH AFTER 4 DAYS Constitutional: Present moderate distress Head: Present normocephalic and atraumatic ENT: Present normal exam, normal oropharynx and mucous membranes moist Neck: Present normal inspection and full ROM Respiratory: Present respiratory distress, rhonchi, diminished air movement and able to speak in complete sentences; Absent prolonged expiratory phase Cardiac: Present S1/S2, Tachycardia and radial pulses present GI: Present soft and distention; Absent tenderness or guarding Skin: Present intact; Absent cyanosis or jaundice Neuro: Present alert, awake and oriented x 3 Extremities: Present normal inspection; Absent clubbing or cyanosis Psychiatric: Present normal affect and cooperative Meds Home Medications and Allergies Home Medications ?Medication ?Instructions ?Recorded ?Confirmed ?Type cetirizine 10 mg tablet 10 mg PO DAILY 06/09/23 11/13/24 History ferrous sulfate 325 mg (65 mg 325 mg PO DAILY 06/09/23 11/13/24 History iron) tablet isosorbide mononitrate 30 mg 30 mg PO DAILY 06/09/23 11/13/24 History tablet,extended release 24 hr oxcarbazepine 300 mg tablet 300 mg PO BID 06/09/23 11/13/24 History acetaminophen 500 mg capsule 500 mg PO Q4HP PRN Mild Pain 06/10/23 11/13/24 History (Scale Score 1-4) multivitamin 1 tab PO DAILY 06/10/23 11/13/24 History timolol maleate 0.5 % eye drops 1 drp ophthalmic (eye) DAILY 06/10/23 11/13/24 History escitalopram oxalate 5 mg tablet 5 mg PO DAILY 12/06/23 11/13/24 History (Lexapro) guaifenesin 100 mg/5 mL oral liquid 200 mg PO Q6HP PRN Cough 12/22/23 11/13/24 History lidocaine 4 % topical patch 1 patch topical DAILY 12/22/23 11/13/24 History (Lidocaine Pain Relief) ondansetron HCl 4 mg tablet 4 mg PO Q4HP PRN Nausea 12/22/23 11/13/24 History fluticasone fur. 100 mcg-umeclid 1 inh inhalation DAILY #60 ea 01/03/24 11/13/24 Rx 62.5 mcg-vilant 25 mcg inhalat.powder (Trelegy Ellipta) loperamide 2 mg capsule 2 mg PO Q6HP PRN Diarrhea 02/14/24 11/13/24 History white petrolatum-mineral oil 94 1 applic ophthalmic (eye) HS 02/14/24 11/13/24 History %-3 % eye ointment (Systane Nighttime) finasteride 5 mg tablet 5 mg PO DAILY #90 tabs 03/05/24 11/13/24 Rx tamsulosin 0.4 mg capsule 0.4 mg PO HS 90 days #90 caps 03/05/24 11/13/24 Rx aluminum hydrox-magnesium carb 95 30 ml PO Q6HP PRN Acid Reflux 04/24/24 11/13/24 History mg-358 mg/15 mL oral suspension (Acid Gone Antacid) apixaban 2.5 mg tablet (Eliquis) 2.5 mg PO BID #60 tabs 05/24/24 11/13/24 Rx gabapentin 100 mg capsule 100 mg PO BID #60 caps 06/08/24 11/13/24 Rx fluticasone propionate 50 2 spray intranasal DAILY 06/26/24 11/13/24 History mcg/actuation nasal spray,suspension (Flonase Allergy Relief) metoprolol succinate 100 mg 100 mg PO DAILY 06/26/24 11/13/24 History tablet,extended release 24 hr ipratropium 0.5 mg-albuterol 3 mg 3 ml inhalation QIDP PRN Shortness 09/04/24 11/13/24 History (2.5 mg base)/3 mL nebulization Of Breath Or Wheezing soln sennosides 8.6 mg tablet (Senna 17.2 mg PO HS 09/04/24 11/13/24 History Laxative) atorvastatin 40 mg tablet 40 mg PO HS 30 days #30 tabs 09/12/24 11/13/24 Rx clopidogrel 75 mg tablet 75 mg PO DAILY 30 days #30 tabs 09/12/24 11/13/24 Rx pantoprazole 40 mg tablet,delayed 40 mg PO HS 30 days #30 tabs 09/12/24 11/13/24 Rx release furosemide 20 mg tablet 20 mg PO DAILY 10/27/24 11/13/24 History oxycodone 10 mg tablet 10 mg PO TID #90 tabs 11/02/24 11/13/24 Rx New Prescriptions to Start Prescriptions: Allergies Allergy/AdvReac Type Severity Reaction Status Date / Time No Known Allergies Allergy Verified 11/06/24 10:40 Results Laboratory Findings 11/22/24 05:18 11/22/24 05:18 ABG ABG pH 7.42 mmol/L (7.35-7.45) 11/17/24 12:35 ABG pCO2 31.3 mmhg (35.0-45.0) L 11/17/24 12:35 ABG pO2 53.8 mmhg (80-100) L 11/17/24 12:35 ABG O2 Saturation 88 % (90-100) L 11/17/24 12:35 PT/INR, D-dimer PT 13.2 seconds (10.1-12.5) H 11/17/24 12:51 INR 1.21 (0.9-1.1) H 11/17/24 12:51 D-Dimer 3.69 ug/mL (0.0-0.5) H 11/17/24 12:51 Abnormal lab findings: Abnormal Labs 11/13/24 11/13/24 11/13/24 09:44 09:59 10:31 WBC 2.8 L RBC 2.75 L Hgb 7.6 L Hct 24.2 L MCHC 31.4 L Plt Count 128 L MPV Neut % (Auto) 88.1 H Lymph % (Auto) 6.1 L [place] % (Auto) Eos % (Auto) Baso % (Auto) Neut # (Auto) Lymph # (Auto) 0.2 L [place] # (Auto) Neutrophils % (Manual) 80 H Lymphocytes % (Manual) Monocytes % (Manual) Haptoglobin PT INR Fibrinogen D-Dimer ABG pCO2 ABG pO2 ABG HCO3 ABG Total CO2 ABG O2 Saturation ABG Base Excess VBG pH 7.30 L VBG pO2 63.2 H VBG HCO3 19.9 L VBG Total CO2 21.1 L VBG O2 Saturation 87.3 H VBG Base Excess -6.5 L Sodium Chloride 110 H Carbon Dioxide Anion Gap BUN 59 H Creatinine 2.90 H Estimated GFR 21 L Est GFR ( Amer) 26 L Glucose 154 H POC Glucose Calcium Total Bilirubin Direct Bilirubin Alkaline Phosphatase Total Creatine Kinase C-Reactive Protein Total Protein Albumin Globulin Albumin/Globulin Ratio Urine Protein 2+ A Urine Blood 3+ A Ur Leukocyte Esterase 2+ A Urine Total Protein Crossmatch ([facility]) 11/13/24 11/14/24 11/14/24 19:32 04:52 07:08 WBC 1.3 L* D RBC 2.32 L Hgb 6.3 L* Hct 20.3 L* MCHC 31.0 L Plt Count 99 L MPV Neut % (Auto) Lymph % (Auto) [place] % (Auto) Eos % (Auto) Baso % (Auto) Neut # (Auto) 0.8 L* Lymph # (Auto) 0.2 L [place] # (Auto) Neutrophils % (Manual) Lymphocytes % (Manual) Monocytes % (Manual) 12 H Haptoglobin PT INR Fibrinogen D-Dimer ABG pCO2 ABG pO2 ABG HCO3 ABG Total CO2 ABG O2 Saturation ABG Base Excess VBG pH VBG pO2 VBG HCO3 VBG Total CO2 VBG O2 Saturation VBG Base Excess Sodium Chloride 108 H Carbon Dioxide Anion Gap BUN 58 H Creatinine 3.00 H Estimated GFR 20 L Est GFR ( Amer) 25 L Glucose POC Glucose 133 H Calcium Total Bilirubin Direct Bilirubin Alkaline Phosphatase Total Creatine Kinase C-Reactive Protein Total Protein 5.9 L Albumin 3.0 L D Globulin Albumin/Globulin Ratio 1.0 L Urine Protein Urine Blood Ur Leukocyte Esterase Urine Total Protein Crossmatch ([facility]) See Detail 11/14/24 11/14/24 11/14/24 10:56 14:43 16:24 WBC RBC Hgb 7.4 L D Hct 23.4 L MCHC Plt Count MPV Neut % (Auto) Lymph % (Auto) [place] % (Auto) Eos % (Auto) Baso % (Auto) Neut # (Auto) Lymph # (Auto) [place] # (Auto) Neutrophils % (Manual) Lymphocytes % (Manual) Monocytes % (Manual) Haptoglobin PT INR Fibrinogen D-Dimer ABG pCO2 ABG pO2 ABG HCO3 ABG Total CO2 ABG O2 Saturation ABG Base Excess VBG pH VBG pO2 VBG HCO3 VBG Total CO2 VBG O2 Saturation VBG Base Excess Sodium Chloride Carbon Dioxide Anion Gap BUN Creatinine Estimated GFR Est GFR ( Amer) Glucose POC Glucose 118 H Calcium Total Bilirubin Direct Bilirubin Alkaline Phosphatase Total Creatine Kinase C-Reactive Protein Total Protein Albumin Globulin Albumin/Globulin Ratio Urine Protein Urine Blood Ur Leukocyte Esterase Urine Total Protein Crossmatch ([facility]) See Detail 11/14/24 11/15/24 11/16/24 17:41 04:51 04:52 WBC 1.2 L* 2.0 L D RBC 2.57 L 2.55 L Hgb 7.2 L 7.1 L Hct 22.1 L 22.1 L MCHC Plt Count 72 L D 52 L D MPV 10.5 H Neut % (Auto) Lymph % (Auto) [place] % (Auto) Eos % (Auto) Baso % (Auto) 0.0 L Neut # (Auto) 1.0 L 1.5 L Lymph # (Auto) 0.1 L 0.2 L [place] # (Auto) Neutrophils % (Manual) 80 H Lymphocytes % (Manual) Monocytes % (Manual) Haptoglobin PT INR Fibrinogen D-Dimer ABG pCO2 ABG pO2 ABG HCO3 ABG Total CO2 ABG O2 Saturation ABG Base Excess VBG pH VBG pO2 VBG HCO3 VBG Total CO2 VBG O2 Saturation VBG Base Excess Sodium Chloride Carbon Dioxide Anion Gap BUN 56 H 59 H Creatinine 2.80 H 3.00 H Estimated GFR 22 L 20 L Est GFR ( Amer) 27 L 25 L Glucose 114 H D POC Glucose 145 H Calcium 7.8 L 8.1 L Total Bilirubin Direct Bilirubin Alkaline Phosphatase Total Creatine Kinase C-Reactive Protein 255.7 H Total Protein 6.2 L Albumin 3.1 L 3.2 L Globulin Albumin/Globulin Ratio 1.0 L 1.0 L Urine Protein Urine Blood Ur Leukocyte Esterase Urine Total Protein Crossmatch ([facility]) 11/16/24 11/17/24 11/17/24 16:00 05:50 07:53 WBC 2.9 L D RBC 2.56 L Hgb 7.2 L 6.9 L Hct 22.3 L 22.1 L MCHC 31.2 L Plt Count 35 L* D MPV Neut % (Auto) 89.0 H Lymph % (Auto) 4.6 L [place] % (Auto) Eos % (Auto) Baso % (Auto) 0.0 L Neut # (Auto) Lymph # (Auto) 0.1 L [place] # (Auto) Neutrophils % (Manual) 94 H Lymphocytes % (Manual) 6 L Monocytes % (Manual) Haptoglobin 367 H PT INR Fibrinogen D-Dimer ABG pCO2 ABG pO2 ABG HCO3 ABG Total CO2 ABG O2 Saturation ABG Base Excess VBG pH VBG pO2 VBG HCO3 VBG Total CO2 VBG O2 Saturation VBG Base Excess Sodium Chloride Carbon Dioxide 21 L Anion Gap BUN 66 H Creatinine 3.20 H Estimated GFR 19 L* Est GFR ( Amer) 23 L Glucose 112 H POC Glucose Calcium 7.6 L Total Bilirubin Direct Bilirubin Alkaline Phosphatase Total Creatine Kinase C-Reactive Protein Total Protein 6.0 L Albumin 3.0 L Globulin Albumin/Globulin Ratio 1.0 L Urine Protein Urine Blood Ur Leukocyte Esterase Urine Total Protein Crossmatch ([facility]) See Detail 11/17/24 11/17/24 11/17/24 12:35 12:51 18:29 WBC RBC Hgb 8.2 L D Hct 25.3 L MCHC Plt Count MPV Neut % (Auto) Lymph % (Auto) [place] % (Auto) Eos % (Auto) Baso % (Auto) Neut # (Auto) Lymph # (Auto) [place] # (Auto) Neutrophils % (Manual) Lymphocytes % (Manual) Monocytes % (Manual) Haptoglobin PT 13.2 H INR 1.21 H Fibrinogen 672 H D-Dimer 3.69 H ABG pCO2 31.3 L ABG pO2 53.8 L ABG HCO3 19.8 L ABG Total CO2 20.8 L ABG O2 Saturation 88 L ABG Base Excess -4.6 L VBG pH VBG pO2 VBG HCO3 VBG Total CO2 VBG O2 Saturation VBG Base Excess Sodium 135 L Chloride 108 H Carbon Dioxide 19 L Anion Gap BUN 68 H Creatinine 3.00 H Estimated GFR 20 L Est GFR ( Amer) 25 L Glucose 153 H D POC Glucose Calcium 8.1 L Total Bilirubin 1.6 H Direct Bilirubin 0.9 H Alkaline Phosphatase Total Creatine Kinase C-Reactive Protein Total Protein Albumin Globulin Albumin/Globulin Ratio Urine Protein Urine Blood Ur Leukocyte Esterase Urine Total Protein Crossmatch ([facility]) 11/18/24 11/19/24 11/19/24 06:00 05:20 13:31 WBC 4.3 L D RBC 2.74 L 2.99 L Hgb 7.5 L 8.4 L D Hct 23.6 L 25.5 L MCHC Plt Count 26 L* D 22 L* MPV 12.1 H 11.3 H Neut % (Auto) 93.5 H 93.1 H Lymph % (Auto) 3.2 L 4.4 L [place] % (Auto) 0.8 L Eos % (Auto) 0.0 L Baso % (Auto) 0.0 L Neut # (Auto) Lymph # (Auto) 0.1 L 0.2 L [place] # (Auto) 0.0 L Neutrophils % (Manual) 93 H 95 H Lymphocytes % (Manual) 5 L 4 L Monocytes % (Manual) 1 L Haptoglobin PT INR Fibrinogen D-Dimer ABG pCO2 ABG pO2 ABG HCO3 ABG Total CO2 ABG O2 Saturation ABG Base Excess VBG pH VBG pO2 VBG HCO3 VBG Total CO2 VBG O2 Saturation VBG Base Excess Sodium Chloride Carbon Dioxide 21 L 19 L Anion Gap 15.8 H BUN 71 H 70 H Creatinine 3.30 H 3.10 H Estimated GFR 18 L* 20 L Est GFR ( Amer) 22 L 24 L Glucose POC Glucose 225 H Calcium 7.9 L 8.0 L Total Bilirubin 1.4 H 2.3 H Direct Bilirubin Alkaline Phosphatase 127 H 146 H Total Creatine Kinase C-Reactive Protein Total Protein Albumin 3.1 L 3.2 L Globulin Albumin/Globulin Ratio 1.0 L 1.0 L Urine Protein Urine Blood Ur Leukocyte Esterase Urine Total Protein Crossmatch ([facility]) 11/20/24 11/21/24 11/21/24 05:08 04:35 05:11 WBC RBC 2.89 L 2.82 L Hgb 7.8 L 7.6 L Hct 25.0 L 24.9 L MCHC 31.2 L 30.5 L Plt Count 20 L* 19 L* MPV 11.8 H 10.6 H Neut % (Auto) 95.0 H 89.8 H Lymph % (Auto) 2.0 L 1.9 L [place] % (Auto) 0.8 L 1.0 L Eos % (Auto) Baso % (Auto) 0.0 L Neut # (Auto) Lymph # (Auto) 0.1 L 0.1 L [place] # (Auto) 0.0 L Neutrophils % (Manual) 98 H 99 H Lymphocytes % (Manual) 2 L 1 L Monocytes % (Manual) Haptoglobin PT INR Fibrinogen D-Dimer ABG pCO2 ABG pO2 ABG HCO3 ABG Total CO2 ABG O2 Saturation ABG Base Excess VBG pH VBG pO2 VBG HCO3 VBG Total CO2 VBG O2 Saturation VBG Base Excess Sodium Chloride 108 H 110 H Carbon Dioxide 20 L 18 L Anion Gap 15.7 H 16.8 H BUN 74 H 77 H Creatinine 3.40 H 4.20 H D Estimated GFR 18 L* 14 L* Est GFR ( Amer) 21 L 17 L* Glucose 115 H D 101 H POC Glucose Calcium 8.2 L Total Bilirubin 2.3 H 2.4 H Direct Bilirubin Alkaline Phosphatase Total Creatine Kinase 198 H D C-Reactive Protein Total Protein 6.2 L Albumin 3.0 L 3.0 L Globulin 3.3 H Albumin/Globulin Ratio 0.9 L 0.9 L Urine Protein Urine Blood Ur Leukocyte Esterase Urine Total Protein 87.0 H Crossmatch ([facility]) 11/21/24 09:20 WBC RBC Hgb Hct MCHC Plt Count MPV Neut % (Auto) Lymph % (Auto) [place] % (Auto) Eos % (Auto) Baso % (Auto) Neut # (Auto) Lymph # (Auto) [place] # (Auto) Neutrophils % (Manual) Lymphocytes % (Manual) Monocytes % (Manual) Haptoglobin PT INR Fibrinogen D-Dimer ABG pCO2 ABG pO2 ABG HCO3 ABG Total CO2 ABG O2 Saturation ABG Base Excess VBG pH VBG pO2 59.5 H VBG HCO3 21.1 L VBG Total CO2 22.2 L VBG O2 Saturation 89.8 H VBG Base Excess -4.0 L Sodium Chloride Carbon Dioxide Anion Gap BUN Creatinine Estimated GFR Est GFR ( Amer) Glucose POC Glucose Calcium Total Bilirubin Direct Bilirubin Alkaline Phosphatase Total Creatine Kinase C-Reactive Protein Total Protein Albumin Globulin Albumin/Globulin Ratio Urine Protein Urine Blood Ur Leukocyte Esterase Urine Total Protein Crossmatch ([facility]) Assessment and Plan *Assessment and plan (1) Primary lung cancer: Status: Acute Category: Medical Code(s): C34.90 - Malignant neoplasm of unspecified part of unspecified bronchus or lung (2) Pneumonia: Status: Acute Category: Medical Code(s): J18.9 - Pneumonia, unspecified organism (3) Acute and chronic respiratory failure with hypoxia: Status: Acute Category: Medical Code(s): J96.21 - Acute and chronic respiratory failure with hypoxia Plan Mr. Toussaint is a 74-year-old male resident of [facility] detention prior smoker with poor vision, greater than [id number] smoking adenocarcinoma lung s/p radiation presented to the hospital 11/13/2024 with primary complaint of worsening weakness and tremor status post fall. Patient also found to be hypoxic upon presentation to the ER. Since then patient being managed for sepsis from presumed urinary tract infection. Patient respiratory status has been waxing and waning since admission with intermittently needing Ventimask/nonrebreather to maintain his sats at 90% and above. His hospital course was also complicated by possible ileus that eventually resolved. CT chest upon admission predominant left upper lobe consolidative changes with associated pulmonary fibrotic changes, they noted airspace disease initially seen on his CT from October 2024 and has been gradually getting worse since then. Concern for worsening endobronchial occlusion and postobstructive pneumonia, given his CT scan from September 2024 and sending for worsening size of the left upper lobe mass along with worsening lymphadenopathy. Patient continued to have febrile episodes since admission. Has been receiving Zosyn since admission for presumed Klebsiella UTI. Blood cultures negative so far. Initiated on vancomycin yesterday. Given patient's immunocompromised status with recent chemotherapy and history of malignancy, continued febrile episodes and worsening airspace disease on the left upper lobe along with possible endobronchial obstruction and tumor growth patient would benefit from bronchoscopy with transbronchial biopsy to further evaluate possible etiologies. Risks and benefit of the bronchoscopy procedure explained in detail including but nit limited to sore throat, difficult breathing, airway injury, vocal cord injury, respiratory failure, lung collapse, infections, abnormal heart rate, medication reactions and . Alternative plan of care options including follow up imaging and observation were also explained to the patient along with possible risks and benefits associated. Patient expressed his complete understanding of the procedure, alternative plan of care options and possible complications and agreed to proceed with bronchoscopy procedure. There were no questions for me at the end of the office visit. Plan: Continue vancomycin and Zosyn. If continue to have febrile episodes we will consider repeating blood cultures Will schedule patient for bronchoscopy airway examination and BAL transbronchial lung biopsy. Patient has stents placed in September on Plavix. Will follow with cardiology recommendations for holding antiplatelets. Nasal MRSA PCR and Fungitel F/U SPutum Cultures -Cardiology consulted, the plan is to hold Plavix to facilitate bronchoscopy transbronchial biopsy. Last Plavix dose 11/21/2024. Eliquis on hold. Continue oxygen supplementation to maintain O2 saturation goal of 90% and above
[2024-11-21 11:59] LABS: Alanine Aminotransferase 37 U/L (12-78); Albumin Level 3.0 g/dl (3.5-5.0); Albumin/Globulin Ratio 0.9 (1.1-1.8); Alkaline Phosphatase 119 U/L (38-126); Anion Gap 15.7 mEq/L (5-15); Aspartate Amino Transferase 55 U/L (17-59); Bilirubin,Total 2.1 mg/dl (0.2-1.3); Blood Urea Nitrogen 77 mg/dl (9-20); Calcium 8.6 mg/dl (8.4-10.2); Carbon Dioxide 20 mmol/L (22.0-30.0); Chloride 109 mmol/L (98-107); Creatinine Clearance Estimated 26 mL/min (50-200); Estimated Glomerular Filt Rate 15 ml/min (>60); GFR (African American) 18 ML/MIN (>60); Globulin 3.2 g/dL (1.3-3.2); Glucose 138 mg/dl (74-100); Potassium 4.7 mmoL/L (3.5-5.1); Sodium 140 mmol/L (136-145); Total Protein,Serum 6.2 g/dl (6.3-8.2)
[2024-11-21 12:01] LABS: Creatinine,Serum 4.00 mg/dl (0.66-1.25)
--- NOTE | 2024-11-21 12:38 | PC.NURSE ---
Speech is going to come up and do evaluation to check to see how patient is swallowing.
--- NOTE | 2024-11-21 13:02 | PC.NURSE ---
Patient had swallow evaluation. He is on aspiration precautions. Diet is being switched over to mechanical soft diet, after patient eats keep in the upright position for 30 to 60 minutes after eating, and make sure patient takes small sips of drinks and small bites. Speech will followup in the am
--- NOTE | 2024-11-21 13:15 | HMH.SLDYSPHA ---
Speech & Language Evaluation Speech/Language Dysphagia Evaluation Start: 11/21/24 13:05 Freq: ONCE Status: Active Protocol: Document 11/21/24 13:05 POOL (Rec: 11/21/24 13:15 [facility] [id number]) Dysphagia Assess/Goals/Plan Assessment Date of Evaluation: 11/21/24 Evaluation Type Initial Certification Assessment/Problems aspiration concerns per MD order. Does Patient Qualify Yes for Service Qualify/Failure Based on CSE results, pt would benefiit from skilled Comment speech therapy services to follow up for diet tolerance and diet texture analysis. Recommendations PHYSICIAN CERTIFICATION: The specified therapy services are required, authorized, and reviewed every 30 days. Pt will be seen # 2 times/week for # weeks 4 Diet Recommendations Mechanical Soft Liquid Type Normal/Thin Recommendations SL Swallow Assist w/all meals,Alt bite w/sip thru meal,Standard Guidelines Aspiration Prec. Dysphagia Swallow Small Bites and Sips,Alternate Liquids/Solids Precautions/ Strategies Plan Anticipate reaching 2 STG in # weeks Anticipate reaching 4 LTG in # weeks Pt/Guardian verbally Yes ack understanding of dx/prognosis/ goals G -code Required No Inside Sales Agent Goals Diet MS ground with Liquids Thin Liquids Education Instructions Discussed CSE results, diet recommendations, and provided aspiration risks/precautions with pt, nursing, and care management all of which expressed understanding. 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 Pt is Patient Problem a 74 yo male presented from his custodial with worsening weakness and tremor to ER dated 11/16/24. Had 2 falls recently in the past week per report from staff at the custodial. Just started chemo few weeks ago for lung cancer. Last course on Tuesday. And has been having increased flank pain and weakness since. Found to be hypoxic on arrival to the ER, normally wears oxygen at 2 L baseline. On workup in the ER, patient found to be septic with grossly abnormal urine, low white count at 2.8, and fever of 102. Medicine consulted for admission and further treatment of sepsis and UTI. Long-term indwelling catheter, complicated UTI. Has grown ESBL in the past. Denies nausea, vomiting, diarrhea. Patient pleasant on exam but fatigued. Quite weak Most recent CTA impressions report No change in left upper lobe consolidation and most consistent with pneumonia, present since mid October, consider bronchoscopy for further evaluation. Abnormal attenuation in the left axilla, similar to prior exam. Inflammatory process not excluded. Stable lymphadenopathy. Most recent CXR report Low lung volumes. Patchy airspace disease in the left upper lung field may represent edema, pneumonia or atelectasis. Rehab Services Speech therapy Assessed Hearing Hearing Ability Hard of Hearing Vision Visual Difficulty Severely Impaired/Blind Language Primary Language Turkish General Information General Current Food NPO Consistancy Dentition Edentulous Oxygen Status Nasal Cannula,Venturi Mask Patient Orientation Person,Place Ability to Follow Good Directions Communication Mild Impairment Ability Dysphagia:Food Presentation Evaluation Food Type Pureed,Mechanical Soft,Liquid,Pudding Dysphagia Evaluation Pt was seen sitting upright in bed with nurse present Summary at bedside for CSE. At baseline, pt had a wet nonproductive cough and O2 sats in low 80s, requiring ventrui mask to bring to high 80s-low 90s. Regular PO trial not provided 2' lack of dentition. Pt was A&Ox3. He was given all trials x2 to assess for consistency and/or fatigue. Pt was given the following bolus consistencies: thin liquids (ice chop, spoonful, open cup sip, straw sip, subsequent sips from straw), pudding, pureed applesauce, and mechanical soft ( nutrigrain bar.) No overt s/sxs of aspiration were observed throughout CSE. Pt was observed to be congested and had difficulty breathing through his nose resulting in him holding breath at times during CSE, once he was cued to breathe O2 sats returned to baseline. 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 It is recommended he be placed on MS ground/thin diet with standard aspiration precautions. Stroke Dysphagia Assessment PHYSICIAN CERTIFICATION: I certify the specified therapy services for Edi Toussaint are required, authorized, and reviewed every 30 days.
--- NOTE | 2024-11-21 13:20 | PC.NURSE ---
Called Dr. Cannon accuracy expert about the MRSA order that was placed. He is aware that patient has been in the hospital since 11/13/24 and he still wants the MRSA swab.
[2024-11-21] MEDS: VANCOMYCIN HCL 2,000 MG in 0.9 % SODIUM CHLORIDE 250 ML 125 MG IV (13:24)
[2024-11-21 13:43] LABS: Procalcitonin 4.29 ng/mL (0.0-2.0)
[2024-11-21 13:45] LABS: C-Reactive Protein 345.2 mg/L (0-4)
--- NOTE | 2024-11-21 14:48 | PC.NURSE ---
Cardiology into see patient at this time. Per cardiology and pulmonology hold patients plavix for 5 days and in 5 days patient will have a bronchoscope.
--- NOTE | 2024-11-21 14:56 | P.CONCA_ITS ---
History of Present Illness History of Present Illness Consult date: 11/21/24 Requesting physician: Bruno Rasmussen Consult reason: known to you, shortness of breath and pre-op evaluation Chief complaint: Weakness History of present illness: This is a 74-year-old -[place] gentleman who resides in a senior living. He was admitted for weakness and tremors. The patient has a history of lung adenocarcinoma and has been getting chemo and radiation. Upon arrival to the emergency department the patient was found to be hypoxic. He was admitted and being treated for UTI. He remains febrile. He also has left-sided pneumonia which appears to be progressing. Pulmonology was consulted today and the patient will need to undergo bronchoscopy. They want him off of his Plavix for at least 5 days prior to proceeding with the bronchoscopy so cardiology was consulted. He denies any chest pain or pressure. He denies any shortness of breath this morning but does have an increased oxygen requirement. He states that his breathing has been much better since being on the oxygen. He denies any lower extremity edema. He denies any chills, nausea, vomiting or diarrhea. As mentioned above he has had persistent fever since being hospitalized. [facility] Disclaimer: The information contained in this section may have been updated after the patient was seen, as this information can be updated by other users. Medical History (Updated 11/21/24 @ 15:02 by Socorro Kim APRN) HLD (hyperlipidemia) Hypertension CAD in [place] artery Acute and chronic respiratory failure with hypoxia Primary lung cancer CKD (chronic kidney disease) stage 3, GFR 30-59 ml/min Acute exacerbation of chronic obstructive pulmonary disease AARON (obstructive sleep apnea) Lung cancer COPD mixed type PAF (paroxysmal atrial fibrillation) Knee pain, right Hyperkalemia Polycystic kidney UTI (urinary tract infection) Acute renal injury Jason catheter in place Pain in left arm Chronic hypoxic respiratory failure, on home oxygen therapy Hx of prostatic malignancy Colon cancer Knee pain Heart failure with preserved ejection fraction Peripheral edema Adenocarcinoma of lung Chronic obstructive pulmonary disease CKD (chronic kidney disease) Stopped smoking with greater than 30 pack year history CVA (cerebral vascular accident) Blind Congestive heart failure Renal stones Gastroesophageal reflux 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) CVA (cerebral vascular accident) Obesity (BMI 30.0-34.9) Elevated left ventricular end-diastolic pressure (LVEDP) Diastolic dysfunction Pulmonary HTN Surgical History S/P coronary artery stent placement Hx of total knee arthroplasty History of bowel resection History of bronchoscopy History of ureteroscopy History of colonoscopy History of colectomy Family History Unknown Cancer Other Family history of cancer Social History Smoking Status: Never smoker alcohol intake: never substance use type: denies use current occupational status: disabled Travel in the last 8 weeks?: None caregiver/support person: Yes household members: none housing: senior living lives independently: No marital status: single current occupation: [employer] current occupational exposures/hazards: No caffeine: Yes special milad needs: No agree to transfusion: No do you feel safe at home: Yes victim of physical abuse: No victim of emotional abuse: No victim of sexual abuse: No would you like helpful sources: No Have you lived/traveled outside [place] in past 30 days?: No Contact w/someone who lives/traveled outside US past 30 days?: No Exposure to someone with infectious disease in past 14 days?: No Do you have a fever (greater than 100.4 F or 38 C)?: No Have you tested positive for COVID-19?: No Exposed to someone with COVID-19 in past 14 days?: No Do you have a sore throat?: No Do you have a cough?: No Do you have any weakness?: No Are you experiencing any nausea/vomitting?: No Do you have any diarrhea?: No Are you experiencing any unusual bleeding?: No Do you have any muscle aches/pain?: No Do you have any abdominal pain?: No Are you experiencing loss of taste or smell?: No Review of Systems Review of Systems Review of systems:: pertinent systems reviewed and negative unless documented be low Constitutional Constitutional: Reports system reviewed and no additional complaints, except as documented, Reports fatigue, Reports lethargy and Reports weakness Eyes Eyes: Reports system reviewed and no additional complaints, except as documented ENT Ears, Nose, Mouth, and Throat: Reports system reviewed and no additional complaints, except as documented *Cardiovascular Cardiovascular: Reports system reviewed and no additional complaints, except as documented, Denies chest pain, Reports dyspnea and Reports dyspnea on exertion *Respiratory Respiratory: Reports system reviewed and no additional complaints, except as documented, Reports dyspnea and Reports dyspnea on exertion *Gastrointestinal Gastrointestinal: Reports system reviewed and no additional complaints, except as documented *Genitourinary Genitourinary: Reports system reviewed and no additional complaints, except as documented *Musculoskeletal Musculoskeletal: Reports system reviewed and no additional complaints, except as documented Integumentary/Breasts Skin/Breast: Reports system reviewed and no additional complaints, except as documented *Neurologic Neurologic: Reports system reviewed and no additional complaints, except as documented and Reports weakness Psychiatric Psychiatric: Reports system reviewed and no additional complaints, except as documented Endocrine Endocrine: Reports system reviewed and no additional complaints, except as documented and Reports fatigue Hematologic/Lymphatic Hematologic/Lymphatic: Reports system reviewed and no additional complaints, except as documented Allergic/Immunologic Allergic/Immunologic: Reports system reviewed and no additional complaints, except as documented Exam Data for Last 24 hours Vital signs and Labs for Last 24 Hours: Temp Pulse Resp BP Pulse Ox O2 Del Method O2 Flow Rate 101.4 F H 71 17 121/63 90 L Nasal Cannula 5 11/21/24 12:00 11/21/24 14:00 11/21/24 14:00 11/21/24 14:00 11/21/24 14:00 11/21/24 14:00 11/21/24 14:00 FiO2 40 11/19/24 11:26 Laboratory Results - last 24 hr 11/21/24 04:35: WBC 6.2 D, RBC 2.82 L, Hgb 7.6 L, Hct 24.9 L, MCV 88.3, MCH 27.0, MCHC 30.5 L, RDW 16.5, Plt Count 19 L*, MPV 10.6 H, Neut % (Auto) 89.8 H, Lymph % (Auto) 1.9 L, [place] % (Auto) 1.0 L, Eos % (Auto) 0.2, Baso % (Auto) 0.2, Neut # (Auto) 5.6, Lymph # (Auto) 0.1 L, [place] # (Auto) 0.1, Eos # (Auto) 0.0, Baso # (Auto) 0.0, Total Counted 100, Neutrophils % (Manual) 99 H, Lymphocytes % (Manual) 1 L, Platelet Estimate Marked decrease, Hypochromasia 1+, Sodium 140, Potassium 4.8, Chloride 110 H, Carbon Dioxide 18 L, Anion Gap 16.8 H, BUN 77 H, Creatinine 4.20 H D, Estimated Creat Clear 25, Estimated GFR 14 L*, Est GFR ( Amer) 17 L*, Glucose 101 H, Calcium 8.5, Magnesium 1.7, Total Bilirubin 2.4 H, AST 59, ALT 39, Alkaline Phosphatase 126, Total Creatine Kinase 151, Total Protein 6.3, Albumin 3.0 L, Globulin 3.3 H, Albumin/Globulin Ratio 0.9 L, Folate > 20.00 11/21/24 05:11: Ur Random Urea Nitrogn 457, Urine Creatinine 51, Urine Sodium 60.0, Urine Total Protein 87.0 H 11/21/24 09:20: VBG pH 7.38, VBG pCO2 36.6, VBG pO2 59.5 H, VBG HCO3 21.1 L, VBG Total CO2 22.2 L, VBG O2 Saturation 89.8 H, VBG Base Excess -4.0 L, VBG Lactic Acid 1.6 11/21/24 11:40: Sodium 140, Potassium 4.7, Chloride 109 H, Carbon Dioxide 20 L, Anion Gap 15.7 H, BUN 77 H, Creatinine 4.00 H, Estimated Creat Clear 26, Estimated GFR 15 L*, Est GFR ( Amer) 18 L*, Glucose 138 H D, Calcium 8.6, Total Bilirubin 2.1 H, AST 55, ALT 37, Alkaline Phosphatase 119, C-Reactive Protein 345.2 H, Total Protein 6.2 L, Albumin 3.0 L, Globulin 3.2, Albumin/Globulin Ratio 0.9 L, Procalcitonin 4.29 H I & O for Last 24 hours: Intake & Output 11/18/24 11/19/24 11/20/24 11/21/24 23:59 23:59 23:59 23:59 Intake Total 1482 / 1482 1340 / 1580 800 / 800 1140 / 1140 Output Total 2024 / 2024 1000 / 1400 1625 / 2225 1000 / 1000 Balance -543 / -543 340 / 180 -825 / -1425 140 / 140 Weight 266 lb 11.2 oz 270 lb 1 oz 262 lb 6.4 oz 261 lb 1.6 oz Microbiology Reports for the Last 24 Hours: Microbiology 11/17/24 12:51 Blood Blood Culture - Preliminary NO GROWTH AFTER 4 DAYS 11/17/24 10:43 Blood Blood Culture - Preliminary NO GROWTH AFTER 4 DAYS Constitutional Constitutional: no acute distress and obese *Routine HEENT Exam Head: Present normocephalic and atraumatic ENT: Present mucous membranes moist *Routine Neck Exam Neck: Present supple, full ROM and normal carotid upstroke; Absent JVD, carotid bruit or lymphadenopathy *Routine Respiratory Exam Respiratory: Present rhonchi, normal respiratory effort and symmetric chest movement *Routine Cardiovascular Exam Cardiovascular: Present Normal S1, Normal S2 and irregularly irregular; Absent murmur or gallop *Routine Abdominal Exam Abdominal: Present soft and normoactive bowel sounds; Absent tenderness, distended or organomegaly *Routine Extremities Exam Extremities: Present full ROM, pulses intact and normal capillary refill; Absent cyanosis, clubbing or edema *Routine Skin Exam Skin: Present intact and warm; Absent erythema *Routine Neurological Exam Neurological: Present alert, oriented X3 and CN II-XII intact; Absent sensory deficit or motor deficit Routine Psychiatric Exam Psychiatric: Present normal affect Meds Home Medications and Allergies Home Medications ?Medication ?Instructions ?Recorded ?Confirmed ?Type cetirizine 10 mg tablet 10 mg PO DAILY 06/09/2305/08 History ferrous sulfate 325 mg (65 mg 325 mg PO DAILY 06/09/23 11/13/24 History iron) tablet isosorbide mononitrate 30 mg 30 mg PO DAILY 06/09/23 0 11/13/24 History tablet,extended release 24 hr oxcarbazepine 300 mg tablet 300 mg PO BID 06/09/2305/08 History acetaminophen 500 mg capsule 500 mg PO Q4HP PRN Mild P ain 06/10/23 11/13/24 History (Scale Score 1-4) multivitamin 1 tab PO DAILY 06/10/2305/08 History timolol maleate 0.5 % eye drops 1 drp ophthalmic (eye) DAILY 06/10/23 11/13/24 History escitalopram oxalate 5 mg tablet 5 mg PO DAILY 4 11/13/24 History (Lexapro) guaifenesin 100 mg/5 mL oral liquid 200 mg PO Q6HP PRN Cough 12/22/23 11/13/24 History lidocaine 4 % topical patch 1 patch topical DAILY 12/1211/13/24 History (Lidocaine Pain Relief) ondansetron HCl 4 mg tablet 4 mg PO Q4HP PRN Nausea 11/13/24 History fluticasone fur. 100 mcg-umeclid 1 inh inhalation YUNIEL Y #60 ea 01/03/24 11/13/24 Rx 62.5 mcg-vilant 25 mcg inhalat.powder (Trelegy Ellipta) loperamide 2 mg capsule 2 mg PO Q6HP PRN Diarrhea 11/13/24 History white petrolatum-mineral oil 94 1 applic ophthalmic (e ye) HS 02/14/24 11/13/24 History %-3 % eye ointment (Systane Nighttime) finasteride 5 mg tablet 5 mg PO DAILY #90 tabs 03/0511/13/24 Rx tamsulosin 0.4 mg capsule 0.4 mg PO HS 90 days #90 cap s 03/05/24 11/13/24 Rx aluminum hydrox-magnesium carb 95 30 ml PO Q6HP PRN Ac id Reflux 04/24/24 11/13/24 History mg-358 mg/15 mL oral suspension (Acid Gone Antacid) apixaban 2.5 mg tablet (Eliquis) 2.5 mg PO BID #60 tab s 05/24/24 11/13/24 Rx gabapentin 100 mg capsule 100 mg PO BID #60 caps 06/0811/13/24 Rx fluticasone propionate 50 2 spray intranasal DAILY 11/13/24 History mcg/actuation nasal spray,suspension (Flonase Allergy Relief) metoprolol succinate 100 mg 100 mg PO DAILY 06/26/24 0 11/13/24 History tablet,extended release 24 hr ipratropium 0.5 mg-albuterol 3 mg 3 ml inhalation QIDP PRN Shortness 09/04/24 11/13/24 History (2.5 mg base)/3 mL nebulization Of Breath Or Wheezing soln sennosides 8.6 mg tablet (Senna 17.2 mg PO HS 09/04/24 11/13/24 History Laxative) atorvastatin 40 mg tablet 40 mg PO HS 30 days #30 tabs 09/12/24 11/13/24 Rx clopidogrel 75 mg tablet 75 mg PO DAILY 30 days #30 t abs 09/12/24 11/13/24 Rx pantoprazole 40 mg tablet,delayed 40 mg PO HS 30 days #30 tabs 09/12/24 11/13/24 Rx release furosemide 20 mg tablet 20 mg PO DAILY 10/27/2405/08 History oxycodone 10 mg tablet 10 mg PO TID #90 tabs 11/13/24 Rx New Prescriptions to Start Prescriptions: Allergies Allergy/AdvReac Type Severity Reaction Status Date / Time No Known Allergies Allergy Verified 11/06/24 10:40 Assessment and Plan *Assessment and plan (1) CAD in [place] artery: Status: Acute Category: Medical Code(s): I25.10 - Atherosclerotic heart disease of [place] coronary artery without angina pectoris (2) Acute and chronic respiratory failure with hypoxia: Status: Acute Category: Medical Code(s): J96.21 - Acute and chronic respiratory failure with hypoxia (3) Primary lung cancer: Status: Acute Qualifiers: Laterality: unspecified laterality Qualified Code(s): C34.90 - Malignant neoplasm of unspecified part of unspecified bronchus or lung Category: Medical Code(s): C34.90 - Malignant neoplasm of unspecified part of unspecified bronchus or lung (4) Neutropenia: Problem Comment: Secondary to infection and chemotherapeutic drugs Status: Acute Qualifiers: Neutropenia type: secondary to cancer chemotherapy Qualified Code(s): D70.1 - Agranulocytosis secondary to cancer chemotherapy; T45.1X5A - Adverse effect of antineoplastic and immunosuppressive drugs, initial encounter Category: Medical Code(s): D70.9 - Neutropenia, unspecified (5) Acute on chronic anemia: Status: Acute Category: Medical Code(s): D64.9 - Anemia, unspecified (6) CKD (chronic kidney disease) stage 3, GFR 30-59 ml/min: Status: Chronic Qualifiers: Chronic kidney disease stage 3 subtype: unspecified whether 3a or 3b Qualified Code(s): N18.30 - Chronic kidney disease, stage 3 unspecified Category: Medical Code(s): N18.30 - Chronic kidney disease, stage 3 unspecified (7) Severe sepsis: Status: Acute Category: Medical Code(s): A41.9 - Sepsis, unspecified organism; R65.20 - Severe sepsis without septic shock (8) Acute UTI: Status: Acute Category: Medical Code(s): N39.0 - Urinary tract infection, site not specified (9) Pneumonia: Status: Acute Qualifiers: Laterality: unspecified laterality Lung location: unspecified part of lung Pneumonia type: due to unspecified organism Qualified Code(s): J18.9 - Pneumonia, unspecified organism Category: Medical Code(s): J18.9 - Pneumonia, unspecified organism (10) S/P coronary artery stent placement: Status: Acute Category: Surgical Code(s): Z95.5 - Presence of coronary angioplasty implant and graft (11) HHD (hypertensive heart disease): Status: Chronic Qualifiers: Heart failure presence: without heart failure Qualified Code(s): I11.9 - Hypertensive heart disease without heart failure Category: Medical Code(s): I11.9 - Hypertensive heart disease without heart failure (12) PAF (paroxysmal atrial fibrillation): Status: Acute Category: Medical Code(s): I48.0 - Paroxysmal atrial fibrillation (13) Hypertension: Status: Acute Qualifiers: Hypertension type: unspecified Qualified Code(s): I10 - Essential (primary) hypertension Category: Medical Code(s): I10 - Essential (primary) hypertension (14) HLD (hyperlipidemia): Status: Resolved Qualifiers: Hyperlipidemia type: mixed hyperlipidemia Qualified Code(s): E78.2 - Mixed hyperlipidemia Category: Medical Code(s): E78.5 - Hyperlipidemia, unspecified Plan Plan: 1. The patient was admitted to the hospital with weakness. He was found to have acute on chronic hypoxic respiratory failure. He is currently being treated for pneumonia and on IV antibiotics. His oxygen demands also keep increasing. It does appear his pneumonia is worsening as well. Pulmonology was consulted. He is concern for a postradiation obstructive process in his lungs. Bronchoscopy has been recommended. Will defer to pulmonology. 2. The patient does have a history of coronary artery disease. He had 3 stents placed to the LAD in August 2024. He has been on dual antiplatelet therapy for over 30 days. Cardiology has been consulted to hold DAPT for 5 days prior to bronchoscopy. It is reasonable to hold the patient's Plavix only for 5 days prior to the bronchoscopy as he has been on DAPT for 30 days at this point. The risks of his lungs outweigh the risk of his heart at this point. He will need to continue aspirin 81 mg daily. Resume Plavix 75 mg daily following his bronchoscopy. 3. His CAD is likely stable. He denies any chest pain or pressure. No plans for invasive left cardiac catheterization at this time. 4. His blood pressure is well-controlled. Continue metoprolol. 5. His LDL goal is less than 55. He is on Lipitor. Will get a lipid panel. 6. The patient does have known atrial fibrillation. He is currently in sinus rhythm. His Eliquis is being held at this time due to anemia and in preparation for bronchoscopy. His bleeding risk is significantly elevated at this time due to his anemia so we will hold on anticoagulation at this time. Once his anemia improves, resume Eliquis 2.5 mg p.o. twice daily. 7. Carotid artery stenosis is stable. 8. The patient does have chronic kidney disease. His creatinine is 4.0. 9. The patient does have a lung adenocarcinoma. He is following with Dr. Alford. He is status post radiation. 10. The patient is chronically anemic. This is stable. 11. Once it is safe for the patient to go back on dual antiplatelet therapy and anticoagulation he will only need to be on Plavix 75 mg daily and Eliquis 2.5 mg p.o. twice daily. Will continue aspirin for now since he will be off of his Plavix and Eliquis but wants Plavix and Eliquis are resumed he will need to stop aspirin 12. No further recommendations at this time from a cardiac standpoint. If any other cardiac issues arise during his hospitalization, please feel free to contact cardiology again. Thank you for the opportunity to help participate in the care of this patient. All recommendations and orders are per Dr. Rosen.
--- NOTE | 2024-11-21 16:31 | P.PN_ITS ---
Subjective *Date: 11/21/24 *Time: 16:31 Interval history: Patient had increased work of breathing after eating breakfast this morning. Speech therapy evaluated, started mechanical soft diet. Discussed with pulmonology, likely postobstructive left upper lobe pneumonia. Started vancomycin. Bronchoscopy on Tuesday after Plavix washout. Renal function improving, follow-up morning RFT's. Exam Data for Last 24 hours Vital signs and Labs for Last 24 Hours: Temp Pulse Resp BP Pulse Ox O2 Del Method O2 Flow Rate 98.3 F 69 17 132/72 94 L Nasal Cannula 5 11/21/24 16:00 11/21/24 16:00 11/21/24 16:00 11/21/24 16:00 11/21/24 16:00 11/21/24 16:11/21/24 16:00 FiO2 40 11/19/24 11:26 Laboratory Results - last 24 hr 11/21/24 04:35: WBC 6.2 D, RBC 2.82 L, Hgb 7.6 L, Hct 24.9 L, MCV 88.3, MCH 27 .0, MCHC 30.5 L, RDW 16.5, Plt Count 19 L*, MPV 10.6 H, Neut % (Auto) 89.8 H, Lymph % (Auto) 1.9 L, [place] % (Auto) 1.0 L, Eos % (Auto) 0.2, Baso % (Auto) 0.2, Neut # (Auto) 5.6, Lymph # (Auto) 0.1 L, [place] # (Auto) 0.1, Eos # (Auto) 0.0, Baso # (Auto) 0.0, Total Counted 100, Neutrophils % (Manual) 99 H, Lymphocytes % (Manual) 1 L, Platelet Estimate Marked decrease, Hypochromasia 1+, Sodium 140, Potassium 4.8, Chloride 110 H, Carbon Dioxide 18 L, Anion Gap 16.8 H, BUN 77 H, Creatinine 4.20 H D, Estimated Creat Clear 25, Estimated GFR 14 L*, Est GFR ( Amer) 17 L*, Glucose 101 H, Calcium 8.5, Magnesium 1.7, Total Bilirubin 2.4 H, AST 59, ALT 39, Alkaline Phosphatase 126, Total Creatine Kinase 151, Total Protein 6.3, Albumin 3.0 L, Globulin 3.3 H, Albumin/Globulin Ratio 0.9 L, Folate > 20.00 11/21/24 05:11: Ur Random Urea Nitrogn 457, Urine Creatinine 51, Urine Sodium 60.0, Urine Total Protein 87.0 H 11/21/24 09:20: VBG pH 7.38, VBG pCO2 36.6, VBG pO2 59.5 H, VBG HCO3 21.1 L, VBG Total CO2 22.2 L, VBG O2 Saturation 89.8 H, VBG Base Excess -4.0 L, VBG Lactic Acid 1.6 11/21/24 11:40: Sodium 140, Potassium 4.7, Chloride 109 H, Carbon Dioxide 20 L, Anion Gap 15.7 H, BUN 77 H, Creatinine 4.00 H, Estimated Creat Clear 26, Estimated GFR 15 L*, Est GFR ( Amer) 18 L*, Glucose 138 H D, Calcium 8.6, Total Bilirubin 2.1 H, AST 55, ALT 37, Alkaline Phosphatase 119, C-Reactive Protein 345.2 H, Total Protein 6.2 L, Albumin 3.0 L, Globulin 3.2, Albumin/Globulin Ratio 0.9 L, Procalcitonin 4.29 H I & O for Last 24 hours: Intake & Output 11/18/24 11/19/24 11/20/24 11/21/24 23:59 23:59 23:59 23:59 Intake Total 1482 / 1482 1340 / 1580 800 / 800 1140 / 1140 Output Total 2024 / 2024 1000 / 1400 1625 / 2225 1550 / 1550 Balance -543 / -543 340 / 180 -825 / -1425 -410 / -410 Weight 120.973 kg 122.498 kg 119.023 kg 118.433 kg Microbiology Reports for the Last 24 Hours: Microbiology 11/17/24 12:51 Blood Blood Culture - Preliminary NO GROWTH AFTER 4 DAYS 11/17/24 10:43 Blood Blood Culture - Preliminary NO GROWTH AFTER 4 DAYS Constitutional Constitutional: no acute distress Comments: Bilateral blindness. Very pleasant. *Routine HEENT Exam Head: Present normocephalic Eye: Present EOMI and PERRL ENT: Present mucous membranes moist *Routine Neck Exam Neck: Present supple; Absent lymphadenopathy *Routine Respiratory Exam Respiratory: Present CTA bilaterally *Routine Cardiovascular Exam Cardiovascular: Present RRR *Routine Abdominal Exam Abdominal: Present soft and normoactive bowel sounds; Absent tenderness *Routine Extremities Exam Extremities: Absent cyanosis, clubbing or edema Comments: Chronic venous stasis changes. *Routine Skin Exam Skin: Present warm; Absent rash *Routine Neurological Exam Neurological: Present alert and oriented X3 Assessment and Plan *Assessment and plan (1) Severe sepsis: Status: Acute Category: Medical Code(s): A41.9 - Sepsis, unspecified organism; R65.20 - Severe sepsis without septic shock (2) ELMER (acute kidney injury): Status: Acute Category: Medical Code(s): N17.9 - Acute kidney failure, unspecified (3) Complicated UTI (urinary tract infection): Status: Acute Category: Medical Code(s): N39.0 - Urinary tract infection, site not specified (4) PAF (paroxysmal atrial fibrillation): Status: Acute Category: Medical Code(s): I48.0 - Paroxysmal atrial fibrillation (5) Lung cancer: Status: Acute Category: Medical Code(s): C34.90 - Malignant neoplasm of unspecified part of unspecified bronchus or lung (6) Obesity (BMI 30.0-34.9): Status: Chronic Category: Medical Code(s): E66.811 - Obesity, class 1 (7) COPD mixed type: Status: Acute Category: Medical Code(s): J44.9 - Chronic obstructive pulmonary disease, unspecified (8) Chronic hypoxic respiratory failure, on home oxygen therapy: Status: Acute Category: Medical Code(s): J96.11 - Chronic respiratory failure with hypoxia; Z99.81 - Dependence on supplemental oxygen (9) Polycystic kidney disease: Status: Acute Category: Medical Code(s): Q61.3 - Polycystic kidney, unspecified (10) Blind: Status: Acute Qualifiers: Right eye visual impairment category: right - unspecified blindness Left eye visual impairment category: left - unspecified blindness Qualified Code(s): H54.3 - Unqualified visual loss, both eyes Category: Medical Code(s): H54.7 - Unspecified visual loss (11) CKD (chronic kidney disease) stage 3, GFR 30-59 ml/min: Status: Chronic Qualifiers: Chronic kidney disease stage 3 subtype: unspecified whether 3a or 3b Qualified Code(s): N18.30 - Chronic kidney disease, stage 3 unspecified Category: Medical Code(s): N18.30 - Chronic kidney disease, stage 3 unspecified (12) Acute on chronic anemia: Status: Acute Category: Medical Code(s): D64.9 - Anemia, unspecified (13) Neutropenia: Problem Comment: Secondary to infection and chemotherapeutic drugs Status: Acute Qualifiers: Neutropenia type: secondary to cancer chemotherapy Qualified Code(s): D70.1 - Agranulocytosis secondary to cancer chemotherapy; T45.1X5A - Adverse effect of antineoplastic and immunosuppressive drugs, initial encounter Category: Medical Code(s): D70.9 - Neutropenia, unspecified Plan Edi Toussaint is a 74-year-old male multiple comorbidities including CAD with PCI to LAD, lung cancer, chronic urinary retention with indwelling catheter, visual impairment, COPD, CHF, polycystic kidney disease, CKD 4. Presented to the ER with weakness. Found to be meeting sepsis criteria with white count of 2.8, Fever 102.4, and frankly abnormal urine with 4+ bacteria, 50-100 whites, 2+ leuk esterase and nitrate negative. Discussed case with ER physician, request admission for further management of sepsis. Has had waxing and waning of his sepsis. #Severe sepsis, resolved #Sepsis, resolved #Complicated UTI secondary to chronic indwelling catheter #Postobstructive pneumonia #Pancytopenia, resolving #Recent chemoinfusion #Immunosuppressed, lung adenocarcinoma on chemotherapy ? Underwent chemoinfusion on 11/06/2024, had been feeling weak since then. Presented with pancytopenia, fevers, tachycardia, CAUTI. ? Sepsis, persistent fevers were initially thought to be related to chemoinfusion and CAUTI. However, CT chest shows persistent left upper lobe opacity consistent with postobstructive pneumonia. ? Continues to have fever, 101.4 this morning. WBC improving, 6.2. Stable platelets 19, hemoglobin 7.6. - Urine culture 11/13 growing Klebsiella pneumonia sensitive to Zosyn . Catheter exchanged in the ER. ? Continue Zosyn 2.25 g every 6 hours day 9. Continue to renally dose. ? Discussed with pulmonology, will start vancomycin to cover for postobstructive pneumonia. Planning for bronchoscopy in 5 days, on 11/26/2024, due to Plavix washout. Cardiology agreeable to holding antiplatelets until then. ? Given worsening thrombocytopenia and ELMER on CKD, DIC, TTP, HUS were consi dered. However, fibrinogen elevated (likely reactive) ruling out DIC and indirect bilirubin, LDH normal ruling out TTP/HUS. ? Discussion with Dr. Alford on 11/17/2024, oncology, who advised to continue course with IV antibiotics and close monitoring. He stated that pancytopenia will improve and thrombocytopenia was likely hitting his fredy. - Repeat CBC, CMP, magnesium ordered for the morning. ? Follow-up repeat blood cultures, sputum culture. #Possible SBO/ileus, resolved #Possible aspiration ? CT abdomen/pelvis on 11/16/2024 suggested possible SBO in periumbilical hernia. Having bowel movements, did have a vagal episode after large bowel movement during admission. Hernia is reducible on exam. Tolerating diet. ? Obese. Be consulted for possible aspiration, recommended mechanical soft diet with thin liquids. #Left upper lobe lung adenocarcinoma #History of colon adenocarcinoma ? Former smoker, following with pulmonology and oncology closely. ? Completed radiation therapy, however mass showing progression. - Oncology began chemotherapy in the past few weeks. Last dose on 11/06/2024. Complicates his ability to fight infection. Stable oxygen requirement at this time of 2-3 L. - Continue home gabapentin 100 mg twice daily and oxycodone 10 mg as needed 3 times a day. Monitor for toxicity Polycystic kidney disease ELMER on CKD 3b BPH - Baseline creatinine approximately 1.8-2.0. ? Renal ultrasound 11/20/2024 shows known cyst in kidney without hydronephrosis. - Given IV Lasix 40 mg yesterday and creatinine bumped to 4.2. Improved to 4.0 after 500 mL bolus. - Continue chronic Jason, exchanged on admission - Continue home tamsulosin 0.4 mg nightly. ? Follow-up morning RFT's. Coronary artery disease HFmrEF, chronic Paroxysmal A-fib - Perfusion scan from 09/10 with fixed perfusion defects. EF calculated at 43% - Heart cath performed 09/11/2024 with severe proximal and mid LAD disease. Received 3 contiguous stents. - Continue Lipitor 40 mg daily, metoprolol succinate 100 mg daily. - Hold Jardiance in the setting of complicated UTI - Continue to monitor on telemetry ? Holding Plavix, Eliquis for planned bronchoscopy on 11/29/2024. GERD: Continue home PPI. continue oxcarbazepine 300 mg twice daily, suspect for mood. Patient denies known seizure disorder Full code Cardiac diet SCDs
--- NOTE | 2024-11-21 18:28 | PC.NURSE ---
at 1715 patient was asked what his wishes were if something was to happen and his heart stop beating. Patient wants everything to be done just like he had agreed when he was admitted in on 11/13/24. Patient was asked due to requiring more oxygen and pneumonia getting worse.
--- NOTE | 2024-11-21 18:46 | PC.NURSE ---
Patient has been comfortable resting during the shift. Patient did have a swallow eval this afternoon, he did pass but speech made his diet soft mechanical with thin liquids, said to make sure patient sits up right after eating for 30-60 minutes and to make sure he takes small sips. Patient has had 2 bowel movements today. Patient went down for a chest ct today. Patient has remained on 4-5 liters nasal cannula all day and sometimes having to supplemental with a venti mask. Patient was asked if he still wanted his code status to be full code. He said he wanted everything done if his heart quit.
[2024-11-21] MEDS: ATORVASTATIN 40MG TABLET 40 MG PO (20:31)
[2024-11-21] MEDS: PANTOPRAZOLE 40MG TABLET 40 MG PO (20:31)
[2024-11-21] MEDS: TAMSULOSIN 0.4MG CAPSULE 0.4 MG PO (20:31)
[2024-11-22] VITALS (19 sets, daily range): BP systolic 97–148; BP diastolic 51–131; PULSE 54–87; RESP 11–21; TEMP 36.4–37.9; O2SAT 90–95; BMI 32.0
[2024-11-22] MEDS: PIPERACILLIN/TAZO 2.25 GM in 0.9 % SODIUM CHLORIDE 50 ML IV ×3 (06:04→18:14)
[2024-11-22] MEDS: FLUTICASONE/UMECLIDIN/VILANTER 100/62.5/25MCG INHALER 1 PUFF IH (06:07)
[2024-11-22] MEDS: IPRATROPIUM/ALBUTEROL 3 ML NEB IH ×4 (06:07→23:06)
[2024-11-22 06:12] LABS: Hematocrit 24.1 % (42.0-52.0); Hemoglobin 7.6 g/dL (14.1-18.0); Immature Granulocytes % 1.5 %; Mean Corpuscular HGB Conc 31.5 g/dL (31.8-35.4); Mean Corpuscular Hemoglobin 27.8 pg (27.0-31.2); Mean Corpuscular Volume 88.3 fl (80-94); Nucleated Red Blood Cells % 0 %; Red Blood Count 2.73 M/mm3 (4.60-6.20); Red Cell Distribution Width-SD 53.6 fL; White Blood Count 6.5 K/mm3 (4.8-10.8)
[2024-11-22 06:21] LABS: Platelet Count 18 K/mm3 (142-424)
[2024-11-22 06:24] LABS: Alanine Aminotransferase 38 U/L (12-78); Albumin Level 3.2 g/dl (3.5-5.0); Albumin/Globulin Ratio 1.0 (1.1-1.8); Alkaline Phosphatase 133 U/L (38-126); Anion Gap 16.9 mEq/L (5-15); Aspartate Amino Transferase 57 U/L (17-59); Bilirubin,Total 1.4 mg/dl (0.2-1.3); Calcium 8.7 mg/dl (8.4-10.2); Carbon Dioxide 20 mmol/L (22.0-30.0); Chloride 111 mmol/L (98-107); Creatinine Clearance Estimated 24 mL/min (50-200); Estimated Glomerular Filt Rate 13 ml/min (>60); GFR (African American) 15 ML/MIN (>60); Globulin 3.3 g/dL (1.3-3.2); Glucose 108 mg/dl (74-100); Potassium 4.9 mmoL/L (3.5-5.1); Sodium 143 mmol/L (136-145); Total Protein,Serum 6.5 g/dl (6.3-8.2)
[2024-11-22 06:25] LABS: Magnesium 2.0 mg/dl (1.6-2.3)
[2024-11-22 06:30] LABS: Blood Urea Nitrogen 85 mg/dl (9-20); Creatinine,Serum 4.50 mg/dl (0.66-1.25)
[2024-11-22 06:34] LABS: Alanine Aminotransferase 37 U/L (12-78); Albumin Level 2.8 g/dl (3.5-5.0); Alkaline Phosphatase 132 U/L (38-126); Aspartate Amino Transferase 58 U/L (17-59); Bilirubin,Direct 1.3 mg/dl (0.0-0.4); Bilirubin,Indirect 0.1 mg/dL (0.0-0.9); Bilirubin,Total 1.4 mg/dl (0.2-1.3); Bilirubin,Unconjugated 0.2 mg/dL (0.0-1.1); Cholesterol 73 mg/dl (140-200); HDL Cholesterol 18 mg/dl (40-60); Total Cells Counted 100; Total Protein,Serum 5.7 g/dl (6.3-8.2); Triglycerides 101 mg/dl (30-150)
[2024-11-22] MEDS: FINASTERIDE 5MG TABLET 5 MG PO (08:16)
[2024-11-22] MEDS: OXYCODONE 5MG IMMEDIATE RELEASE TABLET 10 MG PO ×3 (08:16→20:25)
[2024-11-22] MEDS: ESCITALOPRAM 10MG TABLET 5 MG PO (08:16)
[2024-11-22] MEDS: LIDOCAINE 5% TRANSDERMAL PATCH 1 EACH TD (08:17)
[2024-11-22] MEDS: METOPROLOL SUCCINATE XL 100MG TABLET 100 MG PO (08:17)
[2024-11-22] MEDS: GABAPENTIN 100MG CAPSULE 100 MG PO ×2 (08:17→20:25)
[2024-11-22] MEDS: LACTATED RINGERS 1000ML 500 ML IV (08:20)
[2024-11-22 08:32] LABS: C-Reactive Protein 351.4 mg/L (0-4); Procalcitonin 4.36 ng/mL (0.0-2.0)
[2024-11-22] MEDS: POLYETHYLENE GLYCOL 3350 17 GM PACKET PO (08:32)
[2024-11-22] MEDS: TIMOLOL 0.5% OPTH SOLN 5ML OP (08:33)
[2024-11-22] MEDS: FLUTICASONE PROP 50MCG NASAL SPRAY 16GM 2 SPRAY NS (08:35)
[2024-11-22] MEDS: BISACODYL 5MG TABLET 10 MG PO (09:35)
--- NOTE | 2024-11-22 09:50 | PC.NURSE ---
Patients oxygen saturation of 87% on 3 L NC. Patients oxygen increased to 4 L NC. Patients oxygen saturation of 94% on 4 L NC. Continuation of care plan.
[2024-11-22 12:15] LABS: Albumin, U 148.5 ug/mL (Not Estab.)
[2024-11-22 12:39] LABS: Anion Gap 17.7 mEq/L (5-15); Calcium 8.9 mg/dl (8.4-10.2); Carbon Dioxide 19 mmol/L (22.0-30.0); Chloride 110 mmol/L (98-107); Creatinine Clearance Estimated 25 mL/min (50-200); Estimated Glomerular Filt Rate 13 ml/min (>60); GFR (African American) 16 ML/MIN (>60); Glucose 109 mg/dl (74-100); Potassium 4.7 mmoL/L (3.5-5.1); Sodium 142 mmol/L (136-145)
[2024-11-22 12:48] LABS: Blood Urea Nitrogen 88 mg/dl (9-20); Creatinine,Serum 4.30 mg/dl (0.66-1.25)
[2024-11-22] MEDS: LACTATED RINGERS 1000ML 1,000 ML 100 ML IV (13:55)
--- NOTE | 2024-11-22 13:57 | PC.NURSE ---
md aware of patients BUN and creatnine being elevated
--- NOTE | 2024-11-22 15:23 | PC.NURSE ---
Primary RN asked if he would like a BNP ordered. Provider denied. Primary RN asked if he would like to transfuse Platelets. states we will hold on transfusing until Plt Count is less than 10. No new orders received. Continuation of care plan.
--- NOTE | 2024-11-22 15:25 | PC.NURSE ---
Primary RN spoke with Maria A, Case Management about patients cognitive state and whether patient is able to make decisions for himself or sign for possible consents. Patients GCS of 11 as charted on [employer]. aware. states he will do a cognitive exam on patient today. business lawyer notified. solar installation supervisor aware. Continuation of care plan.
--- NOTE | 2024-11-22 15:32 | DIET.NUTRFU ---
Nursing reported meal intake good, had to assist with meal intake. He also drank ensure. Will continue current POC
--- NOTE | 2024-11-22 17:18 | EXP.PN ---
Subjective *Date: 11/22/24 *Time: 17:18 Interval history: Patient pleasant, but does have a little bit more tenderness in the abdomen more firm today. No bowel movement in the last 24 hours. Increase bowel regimen, follow-up bowel movement. Exam Data for Last 24 hours Vital signs and Labs for Last 24 Hours: Temp Pulse Resp BP Pulse Ox O2 Del Method O2 Flow Rate 98.3 F 73 20 105/51 L 92 L Nasal Cannula 4 11/22/24 16:00 11/22/24 16:11/22/24 16:00 11/22/24 16:00 11/22/24 16:00 11/22/24 16:00 11/22/24 16:00 FiO2 35 11/21/24 22:00 Laboratory Results - last 24 hr 11/21/24 05:30: Urine Creatinine 51.6, Urine Albumin 148.5 11/22/24 05:18: WBC 6.5, RBC 2.73 L, Hgb 7.6 L, Hct 24.1 L, MCV 88.3, MCH 27.8, MCHC 31.5 L, RDW 16.6, Plt Count 18 L*, Neut % (Auto) 95.9 H, Lymph % (Auto) 1.8 L, [place] % (Auto) 0.8 L, Eos % (Auto) 0.0 L, Baso % (Auto) 0.0 L, Neut # (Auto) 6.3, Lymph # (Auto) 0.1 L, [place] # (Auto) 0.1, Eos # (Auto) 0.0, Baso # (Auto) 0.0, Total Counted 100, Neutrophils % (Manual) 96 H, Lymphocytes % (Manual) 4 L, Platelet Estimate Marked decrease, Sodium 143, Potassium 4.9, Chloride 111 H, Carbon Dioxide 20 L, Anion Gap 16.9 H, BUN 85 H, Creatinine 4.50 H, Estimated Creat Clear 24, Estimated GFR 13 L*, Est GFR ( Amer) 15 L*, Glucose 108 H D, Calcium 8.7, Magnesium 2.0 D, Total Bilirubin 1.4 H 11/22/24 05:18: Total Bilirubin 1.4 H, Direct Bilirubin 1.3 H, Conjugated Bilirubin 0.1, Indirect Bilirubin 0.1, Unconjugated Bilirubin 0.2, AST 57 11/22/24 05:18: AST 58, ALT 38 11/22/24 05:18: ALT 37, Alkaline Phosphatase 133 H 11/22/24 05:18: Alkaline Phosphatase 132 H, C-Reactive Protein 351.4 H, Total Protein 6.5 11/22/24 05:18: Total Protein 5.7 L, Albumin 3.2 L 11/22/24 05:18: Albumin 2.8 L D, Globulin 3.3 H, Albumin/Globulin Ratio 1.0 L, Triglycerides 101, Cholesterol 73 L, LDL Cholesterol Direct < 30.00 L, VLDL Cholesterol 20, HDL Cholesterol 18 L, Cholesterol/HDL Ratio 4.1 H, Procalcitonin 4.36 H 11/22/24 12:17: Sodium 142, Potassium 4.7, Chloride 110 H, Carbon Dioxide 19 L, Anion Gap 17.7 H, BUN 88 H, Creatinine 4.30 H, Estimated Creat Clear 25, Estimated GFR 13 L*, Est GFR ( Amer) 16 L*, Glucose 109 H, Calcium 8.9 I & O for Last 24 hours: Intake & Output 11/19/24 11/20/24 11/21/24 11/22/24 23:59 23:59 23:59 23:59 Intake Total 1340 / 1580 800 / 800 2100 / 2218 1268 / 1268 Output Total 1000 / 1400 1625 / 2225 1925 / 1925 700 / 700 Balance 340 / 180 -825 / -1425 175 / 293 568 / 568 Weight 122.498 kg 119.023 kg 118.433 kg 119.204 kg Microbiology Reports for the Last 24 Hours: Microbiology 11/17/24 12:51 Blood Blood Culture - Final NO GROWTH AFTER 5 DAYS 11/17/24 10:43 Blood Blood Culture - Final NO GROWTH AFTER 5 DAYS Constitutional Constitutional: no acute distress Comments: Bilateral blindness. Very pleasant. *Routine HEENT Exam Head: Present normocephalic Eye: Present EOMI and PERRL ENT: Present mucous membranes moist *Routine Neck Exam Neck: Present supple; Absent lymphadenopathy *Routine Respiratory Exam Respiratory: Present CTA bilaterally *Routine Cardiovascular Exam Cardiovascular: Present RRR *Routine Abdominal Exam Abdominal: Present soft and normoactive bowel sounds; Absent tenderness *Routine Extremities Exam Extremities: Absent cyanosis, clubbing or edema Comments: Chronic venous stasis changes. *Routine Skin Exam Skin: Present warm; Absent rash *Routine Neurological Exam Neurological: Present alert and oriented X3 Assessment and Plan *Assessment and plan (1) Severe sepsis: Status: Acute Category: Medical Code(s): A41.9 - Sepsis, unspecified organism; R65.20 - Severe sepsis without septic shock (2) ELMER (acute kidney injury): Status: Acute Category: Medical Code(s): N17.9 - Acute kidney failure, unspecified (3) Complicated UTI (urinary tract infection): Status: Acute Category: Medical Code(s): N39.0 - Urinary tract infection, site not specified (4) PAF (paroxysmal atrial fibrillation): Status: Acute Category: Medical Code(s): I48.0 - Paroxysmal atrial fibrillation (5) Lung cancer: Status: Acute Category: Medical Code(s): C34.90 - Malignant neoplasm of unspecified part of unspecified bronchus or lung (6) Obesity (BMI 30.0-34.9): Status: Chronic Category: Medical Code(s): E66.811 - Obesity, class 1 (7) COPD mixed type: Status: Acute Category: Medical Code(s): J44.9 - Chronic obstructive pulmonary disease, unspecified (8) Chronic hypoxic respiratory failure, on home oxygen therapy: Status: Acute Category: Medical Code(s): J96.11 - Chronic respiratory failure with hypoxia; Z99.81 - Dependence on supplemental oxygen (9) Polycystic kidney disease: Status: Acute Category: Medical Code(s): Q61.3 - Polycystic kidney, unspecified (10) Blind: Status: Acute Qualifiers: Right eye visual impairment category: right - unspecified blindness Left eye visual impairment category: left - unspecified blindness Qualified Code(s): H54.3 - Unqualified visual loss, both eyes Category: Medical Code(s): H54.7 - Unspecified visual loss (11) CKD (chronic kidney disease) stage 3, GFR 30-59 ml/min: Status: Chronic Qualifiers: Chronic kidney disease stage 3 subtype: unspecified whether 3a or 3b Qualified Code(s): N18.30 - Chronic kidney disease, stage 3 unspecified Category: Medical Code(s): N18.30 - Chronic kidney disease, stage 3 unspecified (12) Acute on chronic anemia: Status: Acute Category: Medical Code(s): D64.9 - Anemia, unspecified (13) Neutropenia: Problem Comment: Secondary to infection and chemotherapeutic drugs Status: Acute Qualifiers: Neutropenia type: secondary to cancer chemotherapy Qualified Code(s): D70.1 - Agranulocytosis secondary to cancer chemotherapy; T45.1X5A - Adverse effect of antineoplastic and immunosuppressive drugs, initial encounter Category: Medical Code(s): D70.9 - Neutropenia, unspecified Plan Edi Toussaint is a 74-year-old male multiple comorbidities including CAD with PCI to LAD, lung cancer, chronic urinary retention with indwelling catheter, visual impairment, COPD, CHF, polycystic kidney disease, CKD 4. Presented to the ER with weakness. Found to be meeting sepsis criteria with white count of 2.8, Fever 102.4, and frankly abnormal urine with 4+ bacteria, 50-100 whites, 2+ leuk esterase and nitrate negative. Discussed case with ER physician, request admission for further management of sepsis. Has had waxing and waning of his sepsis. #Severe sepsis, resolved #Sepsis, resolved #Complicated UTI secondary to chronic indwelling catheter #Postobstructive pneumonia #Pancytopenia, resolving #Recent chemoinfusion #Immunosuppressed, lung adenocarcinoma on chemotherapy ? Underwent chemoinfusion on 11/06/2024, had been feeling weak since then. Presented with pancytopenia, fevers, tachycardia, CAUTI. ? Sepsis, persistent fevers were initially thought to be related to chemoinfusion and CAUTI. However, CT chest shows persistent left upper lobe opacity consistent with postobstructive pneumonia. ? Afebrile over the last 24 hours. WBC improving, 6.5. Stable platelets 18, hemoglobin 7.6. - Urine culture 11/13 growing Klebsiella pneumonia sensitive to Zosyn . Catheter exchanged in the ER. ? Continue Zosyn 2.25 g every 6 hours day 10. Continue to renally dose. ? Discussed with pulmonology, will start vancomycin to cover for postobstructive pneumonia and continue Zosyn. Planning for bronchoscopy on 11/26/2024, due to Plavix washout. Cardiology agreeable to holding antiplatelets until then. ? Given worsening thrombocytopenia and ELMER on CKD, DIC, TTP, HUS were considered. However, fibrinogen elevated (likely reactive) ruling out DIC and indirect bilirubin, LDH normal ruling out TTP/HUS. ? Discussion with Dr. Alford on 11/17/2024, oncology, who advised to continue course with IV antibiotics and close monitoring. He stated that pancytopenia will improve and thrombocytopenia was likely hitting his fredy. - Repeat CBC, CMP, magnesium ordered for the morning. ? Follow-up repeat blood cultures, sputum culture. #Possible SBO/ileus, resolved #Possible aspiration ? CT abdomen/pelvis on 11/16/2024 suggested possible SBO in periumbilical hernia. Having bowel movements, did have a vagal episode after large bowel movement during admission. Hernia is reducible on exam. Tolerating diet. ? Abdomen again more firm today, given MiraLAX, bisacodyl. Follow-up on bowel movement. #Left upper lobe lung adenocarcinoma #History of colon adenocarcinoma ? Former smoker, following with pulmonology and oncology closely. ? Completed radiation therapy, however mass showing progression. - Oncology began chemotherapy in the past few weeks. Last dose on 11/06/2024. Complicates his ability to fight infection. Stable oxygen requirement at this time of 2-3 L. - Continue home gabapentin 100 mg twice daily and oxycodone 10 mg as needed 3 times a day. Monitor for toxicity Polycystic kidney disease ELMER on CKD 3b BPH - Baseline creatinine approximately 1.8-2.0. ? Renal ultrasound 11/20/2024 shows known cyst in kidney without hydronephrosis. ? Creatinine improved to 4.3 after 500 mL liter bolus this morning. Continue IV LR at 100 L/h, follow-up BMP at 6 PM. - Continue chronic Jason, exchanged on admission - Continue home tamsulosin 0.4 mg nightly. ? Follow-up morning RFT's. Coronary artery disease HFmrEF, chronic Paroxysmal A-fib - Perfusion scan from 09/10 with fixed perfusion defects. EF calculated at 43% - Heart cath performed 09/11/2024 with severe proximal and mid LAD disease. Received 3 contiguous stents. - Continue Lipitor 40 mg daily, metoprolol succinate 100 mg daily. - Hold Jardiance in the setting of complicated UTI - Continue to monitor on telemetry ? Holding Plavix, Eliquis for planned bronchoscopy on 11/29/2024. GERD: Continue home PPI. continue oxcarbazepine 300 mg twice daily, suspect for mood. Patient denies known seizure disorder Full code Cardiac diet SCDs
[2024-11-22 18:23] LABS: Anion Gap 14.9 mEq/L (5-15); Calcium 8.5 mg/dl (8.4-10.2); Carbon Dioxide 21 mmol/L (22.0-30.0); Chloride 111 mmol/L (98-107); Creatinine Clearance Estimated 24 mL/min (50-200); Estimated Glomerular Filt Rate 13 ml/min (>60); GFR (African American) 15 ML/MIN (>60); Glucose 118 mg/dl (74-100); Potassium 4.9 mmoL/L (3.5-5.1); Sodium 142 mmol/L (136-145)
[2024-11-22 18:31] LABS: Blood Urea Nitrogen 87 mg/dl (9-20); Creatinine,Serum 4.50 mg/dl (0.66-1.25)
[2024-11-22] MEDS: ACETAMINOPHEN 500MG TAB 500 MG PO (20:25)
[2024-11-22] MEDS: PANTOPRAZOLE 40MG TABLET 40 MG PO (20:25)
[2024-11-22] MEDS: TAMSULOSIN 0.4MG CAPSULE 0.4 MG PO (20:25)
[2024-11-22] MEDS: ATORVASTATIN 40MG TABLET 40 MG PO (20:25)
[2024-11-22 21:19] LABS: Sodium,Urine Random 21.0 mmol/L (30-90)
[2024-11-23] VITALS (18 sets, daily range): BP systolic 92–130; BP diastolic 44–68; PULSE 62–90; RESP 14–24; TEMP 36.8–37.3; O2SAT 90–100; BMI 32.3
[2024-11-23] MEDS: PIPERACILLIN/TAZO 2.25 GM in 0.9 % SODIUM CHLORIDE 50 ML IV ×5 (00:35→23:34)
[2024-11-23] MEDS: IPRATROPIUM/ALBUTEROL 3 ML NEB IH ×3 (06:01→23:48)
[2024-11-23] MEDS: FLUTICASONE/UMECLIDIN/VILANTER 100/62.5/25MCG INHALER 1 PUFF IH (06:01)
[2024-11-23 06:14] LABS: Alanine Aminotransferase 31 U/L (12-78); Albumin Level 2.8 g/dl (3.5-5.0); Albumin/Globulin Ratio 0.9 (1.1-1.8); Alkaline Phosphatase 123 U/L (38-126); Anion Gap 13.9 mEq/L (5-15); Aspartate Amino Transferase 50 U/L (17-59); Bilirubin,Total 1.4 mg/dl (0.2-1.3); Calcium 8.2 mg/dl (8.4-10.2); Carbon Dioxide 21 mmol/L (22.0-30.0); Chloride 112 mmol/L (98-107); Creatinine Clearance Estimated 23 mL/min (50-200); Estimated Glomerular Filt Rate 12 ml/min (>60); GFR (African American) 15 ML/MIN (>60); Globulin 3.1 g/dL (1.3-3.2); Glucose 90 mg/dl (74-100); Potassium 4.9 mmoL/L (3.5-5.1); Sodium 142 mmol/L (136-145); Total Protein,Serum 5.9 g/dl (6.3-8.2)
[2024-11-23 06:16] LABS: Blood Urea Nitrogen 92 mg/dl (9-20); Creatinine,Serum 4.70 mg/dl (0.66-1.25)
[2024-11-23 06:20] LABS: C-Reactive Protein 280.8 mg/L (0-4)
[2024-11-23 06:31] LABS: Procalcitonin 3.82 ng/mL (0.0-2.0)
[2024-11-23 08:28] LABS: NT Pro Brain Natriuretic Pep. 16800 pg/mL (0-450)
--- NOTE | 2024-11-23 08:38 | P.PN_ITS ---
Subjective *Date: 11/23/24 *Time: 12:48 Interval history: No acute respiratory overnight. Stable oxygen appointments. Continue to have febrile episodes Pulmonology Exam Inpatient Vital signs and Labs for Last 24 Hours: Temp Pulse Resp BP Pulse Ox O2 Del Method O2 Flow Rate 98.5 F 62 14 103/57 L 96 Nasal Cannula 4 11/23/24 04:01 11/23/24 06:10 11/23/24 06:00 11/23/24 06:00 11/23/24 06:10 11/23/24 06:10 11/23/24 06:10 FiO2 35 11/21/24 22:00 Laboratory Results - last 24 hr 11/21/24 05:30: Urine Creatinine 51.6, Urine Albumin 148.5 11/22/24 12:17: Sodium 142, Potassium 4.7, Chloride 110 H, Carbon Dioxide 19 L, Anion Gap 17.7 H, BUN 88 H, Creatinine 4.30 H, Estimated Creat Clear 25, Estimated GFR 13 L*, Est GFR ( Amer) 16 L*, Glucose 109 H, Calcium 8.9 11/22/24 17:58: Sodium 142, Potassium 4.9, Chloride 111 H, Carbon Dioxide 21 L, Anion Gap 14.9, BUN 87 H, Creatinine 4.50 H, Estimated Creat Clear 24, Estimated GFR 13 L*, Est GFR ( Amer) 15 L*, Glucose 118 H, Calcium 8.5 11/22/24 20:53: Ur Random Urea Nitrogn 550, Urine Creatinine 91, Urine Sodium 21.0 L 11/23/24 04:48: Sodium 142, Potassium 4.9, Chloride 112 H, Carbon Dioxide 21 L, Anion Gap 13.9, BUN 92 H, Creatinine 4.70 H, Estimated Creat Clear 23, Estimated GFR 12 L*, Est GFR ( Amer) 15 L*, Glucose 90 D, Calcium 8.2 L, Total Bilirubin 1.4 H, AST 50, ALT 31, Alkaline Phosphatase 123, C-Reactive Protein 280.8 H, NT-Pro-B Natriuret Pep 28004 H, Total Protein 5.9 L, Albumin 2.8 L, Globulin 3.1, Albumin/Globulin Ratio 0.9 L, Procalcitonin 3.82 H Temp Pulse Resp BP Pulse Ox O2 Del Method O2 Flow Rate 98.4 F 78 21 135/90 90 L Nasal Cannula 4 11/21/24 08:02 11/21/24 10:56 11/21/24 10:00 11/21/24 10:00 11/21/24 10:56 11/21/24 11:00 11/21/24 11:00 FiO2 40 11/19/24 11:26 Laboratory Results - last 24 hr 11/20/24 05:08: Vitamin B12 879 11/21/24 04:35: WBC 6.2 D, RBC 2.82 L, Hgb 7.6 L, Hct 24.9 L, MCV 88.3, MCH 27.0, MCHC 30.5 L, RDW 16.5, Plt Count 19 L*, MPV 10.6 H, Neut % (Auto) 89.8 H, Lymph % (Auto) 1.9 L, [place] % (Auto) 1.0 L, Eos % (Auto) 0.2, Baso % (Auto) 0.2, Neut # (Auto) 5.6, Lymph # (Auto) 0.1 L, [place] # (Auto) 0.1, Eos # (Auto) 0.0, Baso # (Auto) 0.0, Total Counted 100, Neutrophils % (Manual) 99 H, Lymphocytes % (Manual) 1 L, Platelet Estimate Marked decrease, Hypochromasia 1+, Sodium 140, Potassium 4.8, Chloride 110 H, Carbon Dioxide 18 L, Anion Gap 16.8 H, BUN 77 H, Creatinine 4.20 H D, Estimated Creat Clear 25, Estimated GFR 14 L*, Est GFR ( Amer) 17 L*, Glucose 101 H, Calcium 8.5, Magnesium 1.7, Total Bilirubin 2.4 H, AST 59, ALT 39, Alkaline Phosphatase 126, Total Creatine Kinase 151, Total Protein 6.3, Albumin 3.0 L, Globulin 3.3 H, Albumin/Globulin Ratio 0.9 L, Folate > 20.00 11/21/24 05:11: Ur Random Urea Nitrogn 457, Urine Creatinine 51, Urine Sodium 60.0, Urine Total Protein 87.0 H 11/21/24 09:20: VBG pH 7.38, VBG pCO2 36.6, VBG pO2 59.5 H, VBG HCO3 21.1 L, VBG Total CO2 22.2 L, VBG O2 Saturation 89.8 H, VBG Base Excess -4.0 L, VBG Lactic Acid 1.6 I & O for Labs for Last 24 Hours: Intake & Output 11/20/24 11/21/24 11/22/24 11/23/24 23:59 23:59 23:59 23:59 Intake Total 800 / 800 2100 / 2218 1846.333 / 1896.333 150 / 150 Output Total 1625 / 2225 1925 / 1925 950 / 950 300 / 300 Balance -825 / -1425 175 / 293 896.333 / 946.333 -150 / -150 Weight 262 lb 6.4 oz 261 lb 1.6 oz 262 lb 12.8 oz 265 lb 8 oz Intake & Output 11/18/24 11/19/24 11/20/24 11/21/24 23:59 23:59 23:59 23:59 Intake Total 1482 / 1482 1340 / 1580 800 / 800 590 / 590 Output Total 2024 / 2024 1000 / 1400 1625 / 2225 1000 / 1000 Balance -543 / -543 340 / 180 -825 / -1425 -410 / -410 Weight 266 lb 11.2 oz 270 lb 1 oz 262 lb 6.4 oz 261 lb 1.6 oz Microbiology Reports for the Last 24 Hours: Microbiology 11/17/24 12:51 Blood Blood Culture - Final NO GROWTH AFTER 5 DAYS 11/17/24 10:43 Blood Blood Culture - Final NO GROWTH AFTER 5 DAYS Microbiology 11/17/24 10:43 Blood Blood Culture - Preliminary NO GROWTH AFTER 4 DAYS Constitutional: Present moderate distress Head: Present normocephalic and atraumatic ENT: Present normal exam, normal oropharynx and mucous membranes moist Neck: Present normal inspection and full ROM Respiratory: Present respiratory distress, rhonchi, diminished air movement and able to speak in complete sentences; Absent prolonged expiratory phase Cardiac: Present S1/S2, Tachycardia and radial pulses present GI: Present soft and distention; Absent tenderness or guarding Skin: Present intact; Absent cyanosis or jaundice Neuro: Present alert, awake and oriented x 3 Extremities: Present normal inspection; Absent clubbing or cyanosis Psychiatric: Present normal affect and cooperative Assessment and Plan *Assessment and plan (1) Primary lung cancer: Status: Acute Qualifiers: Laterality: unspecified laterality Qualified Code(s): C34.90 - Malignant neoplasm of unspecified part of unspecified bronchus or lung Category: Medical Code(s): C34.90 - Malignant neoplasm of unspecified part of unspecified bronchus or lung (2) Pneumonia: Status: Acute Qualifiers: Laterality: unspecified laterality Lung location: unspecified part of lung Pneumonia type: due to unspecified organism Qualified Code(s): J18.9 - Pneumonia, unspecified organism Category: Medical Code(s): J18.9 - Pneumonia, unspecified organism (3) Acute and chronic respiratory failure with hypoxia: Status: Acute Category: Medical Code(s): J96.21 - Acute and chronic respiratory failure with hypoxia Plan Mr. Toussaint is a 74-year-old male resident of [facility] senior living prior smoker with poor vision, greater than [id number] smoking adenocarcinoma lung s/p radiation presented to the hospital 11/13/2024 with primary complaint of worsening weakness and tremor status post fall. Patient also found to be hypoxic upon presentation to the ER. Since then patient being managed for sepsis from presumed urinary tract infection. Patient respiratory status has been waxing and waning since admission with intermittently needing Ventimask/nonrebreather to maintain his sats at 90% and above. His hospital course was also complicated by possible ileus that eventu ally resolved. CT chest upon admission predominant left upper lobe consolidative changes with associated pulmonary fibrotic changes, they noted airspace disease initially seen on his CT from October 2024 and has been gradually getting worse since then. Concern for worsening endobronchial occlusion and postobstructive pneumonia, given his CT scan from September 2024 and sending for worsening size of the left upper lobe mass along with worsening lymphadenopathy. Patient continued to have febrile episodes since admission. Has been receiving Zosyn since admission for presumed Klebsiella UTI. Blood cul tures negative so far. Initiated on vancomycin yesterday. Given patient's immunocompromised status with recent chemotherapy and history of malignancy, continued febrile episodes and worsening airspace disease on the left upper lobe along with possible endobronchial obstruction and tumor growth patient would benefit from bronchoscopy with transbronchial biopsy to further evaluate possible etiologies. Risks and benefit of the bronchoscopy procedure explained in detail including but nit limited to sore throat, difficult breathing, airway injury, vocal cord injury, respiratory failure, lung collapse, infections, abnormal heart rate, medication reactions and . Alternative plan of care options including follow up imaging and observation were also explained to the patient along with possible risks and benefits associated. Patient expressed his complete understanding of the procedure, alternative plan of care options and possible complications and agreed to proceed with bronchoscopy procedure. There were no questions for me at the end of the office visit. Interval update: No acute respiratory vents overnight. Hemodynamically stable. Probably fever 100.3 yesterday. Continue to receive vancomycin and Zosyn, renally dosed. Nasal MRSA PCR pending. CRP improving now up to 280. BNP elevated at 16,800. Procalcitonin within normal limits. Continue to show ELMER on CKD. Plan: Continue vancomycin and Zosyn. Repeat blood cultures. Will schedule patient for bronchoscopy airway examination and BAL transbronchial lung biopsy. Patient has stents placed in September on Plavix. Will follow with cardiology recommendations for holding antiplatelets. F/U SPutum Cultures and serum beta D glucan Cardiology consulted, the plan is to hold Plavix to facilitate bronchoscopy transbronchial biopsy. Last Plavix dose 11/21/2024. Eliquis on hold. Continue oxygen supplementation to maintain O2 saturation goal of 90% and above
[2024-11-23] MEDS: FLUTICASONE PROP 50MCG NASAL SPRAY 16GM 2 SPRAY NS (09:27)
[2024-11-23] MEDS: TIMOLOL 0.5% OPTH SOLN 5ML OP (09:27)
[2024-11-23] MEDS: LIDOCAINE 5% TRANSDERMAL PATCH 1 EACH TD (09:28)
[2024-11-23] MEDS: ESCITALOPRAM 10MG TABLET 5 MG PO (09:29)
[2024-11-23] MEDS: FINASTERIDE 5MG TABLET 5 MG PO (09:29)
[2024-11-23] MEDS: METOPROLOL SUCCINATE XL 100MG TABLET 100 MG PO (09:30)
[2024-11-23] MEDS: POLYETHYLENE GLYCOL 3350 17 GM PACKET PO (09:30)
[2024-11-23] MEDS: GABAPENTIN 100MG CAPSULE 100 MG PO ×2 (09:36→20:06)
[2024-11-23] MEDS: OXYCODONE 5MG IMMEDIATE RELEASE TABLET 10 MG PO ×3 (09:36→20:05)
[2024-11-23] MEDS: LACTATED RINGERS 1000ML 500 ML 250 ML IV (09:37)
--- NOTE | 2024-11-23 09:43 | CA_ITS ---
APPROVED REPORT EXAM: Comprehensive 2D, Doppler, and color-flow Echocardiogram Life Educator: Stefania Etienne RDCS Ht: 6 ft 4 in Wt: 265lbs BSA: 2.50 BP: 121/63 mmHg Indications: CAD CHF M-Mode Dimensions RVDd 2.93 cm (0.9-2.6) LA Diam 4.20 cm (1.9-4.0) LVDd 6.59 cm (3.5-5.7) LVDs 4.94 cm (3.5-5.7) IVSd 1.00 cm (0.6-1.1) PWd 0.84 cm (0.6-1.1) EF (Teich) 48.40% FS 25.00% EDV (Teich) 222.80 mL ESV (Teich) 115.00 mL LV Diastology E Decel Time 180 (160-240 msec) E/A Ratio 1.0 Mitral Valve MV E Max Man. 62.0 (40-130 cm/s) MV A Velocity 64.0 (40-130 cm/s) E/A Ratio 0.98 MV PHT 53.0 ms Left Ventricle The left ventricle is normal size. Left ventricular systolic function is normal. The left ventricular ejection fraction is within the normal range. There is increased left ventricular wall thickness. There is normal LV segmental wall motion. The left ventricular diastolic function is indeterminate. LVEF is 55%. Right Ventricle The right ventricle is moderately dilated. The right ventricular systolic function is moderately to severely reduced. Atria The left atrium is mildly dilated. The right atrium is mildly dilated. There is no color Doppler evidence of interatrial shunt. Aortic Valve The aortic valve is mildly thickened. There is no hemodynamically significant aortic valvular stenosis. Trace aortic regurgitation is present. Mitral Valve The mitral valve is normal in structure. No evidence of mitral valve stenosis. Trace mitral regurgitation is present. Tricuspid Valve The tricuspid valve leaflets are thin and pliable. Moderate tricuspid regurgitation. RVSP is 45-50 mmHg. Pulmonic Valve The pulmonary valve is grossly normal in structure. Mild pulmonic valve regurgitation is present. Great Vessels The aortic root is normal in size. IVC is normal in size and collapses >50% with inspiration. Pericardium There is no pericardial effusion. Other Information Study Quality: Technically Difficult Conclusion Technically difficult study. Normal LV systolic function. Moderate RV dilation with moderate to severe reduction in RV function. Biatrial dilation. Moderate TR. Mild SC. Elevated RVSP 45-50 mmHg. Compared to prior study from 09/10/2024, the RV dysfunction is new. Further evaluation for pulmonary disease (including pulmonary embolism) is suggested, if clinically indicated and feasible. Electronically signed by : Leigh Rosen MD 11/26/2024 01:45:31
--- NOTE | 2024-11-23 12:20 | PC.NURSE ---
patient left the ICU @1220 via bed to [facility] room 208
--- NOTE | 2024-11-23 12:36 | PC.NURSE ---
arrived to floor by bed at 12:22
[2024-11-23 14:22] LABS: Lactate Venous 1.2 mmol/L (0.4-2.0); VBG HCO3 18.6 mmol/L (23-30); VBG PCO2 33.1 mmol/L (35-51); VBG PH 7.37 mmol/L (7.31-7.41); VBG PO2 43.8 mmol/L (28-40)
[2024-11-23 14:34] LABS: Anion Gap 17.0 mEq/L (5-15); Calcium 8.5 mg/dl (8.4-10.2); Carbon Dioxide 20 mmol/L (22.0-30.0); Chloride 110 mmol/L (98-107); Creatinine Clearance Estimated 23 mL/min (50-200); Estimated Glomerular Filt Rate 12 ml/min (>60); GFR (African American) 15 ML/MIN (>60); Glucose 160 mg/dl (74-100); Potassium 5.0 mmoL/L (3.5-5.1); Sodium 142 mmol/L (136-145)
[2024-11-23 14:38] LABS: Creatinine,Serum 4.70 mg/dl (0.66-1.25)
[2024-11-23 14:39] LABS: Blood Urea Nitrogen 91 mg/dl (9-20)
[2024-11-23 14:39] LABS: Vancomycin,Trough 11.4 ug/mL (5.0-10.0)
--- NOTE | 2024-11-23 14:45 | XR_ITS ---
FINAL REPORT CLINICAL HISTORY: suspect heart failure COMPARISON: 11/17/2024 FINDINGS: A portable view of the chest was obtained. Cardiomegaly is stable. Patient is status post median sternotomy. There are slightly improved bilateral opacities with small pleural effusions. There is no pneumothorax or acute osseous abnormality. IMPRESSION: Slightly improved bilateral opacities with small effusions. Reviewed, Interpreted and Dictated by Gale Mcneill MD Transcribed by Nati Funez Authenticated and [facility]
[2024-11-23] MEDS: VANCOMYCIN HCL 2,000 MG in 0.9 % SODIUM CHLORIDE 250 ML 125 MG IV (15:04)
[2024-11-23] MEDS: FUROSEMIDE 40MG/4ML VIAL 40 MG IV (16:48)
[2024-11-23] MEDS: PANTOPRAZOLE 40MG TABLET 40 MG PO (20:05)
[2024-11-23] MEDS: TAMSULOSIN 0.4MG CAPSULE 0.4 MG PO (20:05)
[2024-11-23] MEDS: ATORVASTATIN 40MG TABLET 40 MG PO (20:06)
--- NOTE | 2024-11-23 20:54 | P.PN_ITS ---
Subjective *Date: 11/24/24 *Time: 20:54 Exam Data for Last 24 hours Vital signs and Labs for Last 24 Hours: Temp Pulse Resp BP Pulse Ox O2 Del Method O2 Flow Rate 98.7 F 88 24 124/75 99 Nasal Cannula 4 11/24/24 19:40 11/24/24 20:10 11/24/24 19:40 11/24/24 19:40 11/24/24 19:40 11/24/24 20:10 11/24/24 20:10 FiO2 35 11/21/24 22:00 Laboratory Results - last 24 hr 11/23/24 21:15: Sodium 140, Potassium 5.2 H, Chloride 111 H, Carbon Dioxide 19 L , Anion Gap 15.2 H, BUN 99 H, Creatinine 4.90 H, Estimated Creat Clear 22, Estimated GFR 12 L*, Est GFR ( Amer) 14 L*, Glucose 160 H, Calcium 8.2 L, NT-Pro-B Natriuret Pep 15629 H 11/24/24 06:45: WBC 8.3 D, RBC 2.46 L, Hgb 6.8 L*, Hct 21.9 L, MCV 89.0, MCH 27.6, MCHC 31.1 L, RDW 17.1, Plt Count 17 L*, Neut % (Auto) 93.1 H, Lymph % (Auto) 2.9 L, [place] % (Auto) 2.0, Eos % (Auto) 0.2, Baso % (Auto) 0.1, Neut # (Auto) 7.7, Lymph # (Auto) 0.2 L, [place] # (Auto) 0.2, Eos # (Auto) 0.0, Baso # (Auto) 0.0, Total Counted 100, Neutrophils % (Manual) 94 H, Lymphocytes % (Manu al) 4 L, Monocytes % (Manual) 2, Platelet Estimate Marked decrease, RBC Morphology Normal, Sodium 142, Potassium 5.1, Chloride 112 H, Carbon Dioxide 19 L, Anion Gap 16.1 H, BUN 99 H, Creatinine 5.10 H, Estimated Creat Clear 21, Estimated GFR 11 L*, Est GFR ( Amer) 13 L*, Glucose 95 D, Calcium 8.2 L, Total Bilirubin 1.3, AST 53, ALT 32, Alkaline Phosphatase 131 H, C-Reactive Protein 290.0 H, Total Protein 6.1 L, Albumin 2.9 L, Globulin 3.2, Albumin/Globulin Ratio 0.9 L, Procalcitonin 3.55 H 11/24/24 10:45: Blood Type AB Positive, Antibody Screen Negative, Crossmatch (AHG) See Detail 11/24/24 16:50: Sodium 143, Potassium 5.3 H, Chloride 111 H, Carbon Dioxide 16 L , Anion Gap 21.3 H, BUN 111 H*, Creatinine 5.30 H, Estimated Creat Clear 20, Estimated GFR 11 L*, Est GFR ( Amer) 13 L*, Glucose 118 H D, Calcium 8.7 11/24/24 19:00: Hgb 7.6 L D, Hct 24.0 L I & O for Last 24 hours: Intake & Output 11/21/24 11/22/24 11/23/24 11/24/24 23:59 23:59 23:59 23:59 Intake Total 2100 / 2218 1846.333 / 8007.666 4934 / 2700 1707.5 / 1707.5 Output Total 1925 / 1925 950 / 950 1125 / 1125 1350 / 1350 Balance 175 / 293 896.333 / 847.574 5341 / 1575 357.5 / 357.5 Weight 118.433 kg 119.204 kg 120.429 kg 119.567 kg Microbiology Reports for the Last 24 Hours: Microbiology 11/23/24 14:14 Blood Blood Culture - Preliminary NO GROWTH AFTER 24 HOURS 11/23/24 13:09 Blood Blood Culture - Preliminary NO GROWTH AFTER 24 HOURS
[2024-11-23 21:36] LABS: Anion Gap 15.2 mEq/L (5-15); Calcium 8.2 mg/dl (8.4-10.2); Carbon Dioxide 19 mmol/L (22.0-30.0); Chloride 111 mmol/L (98-107); Creatinine Clearance Estimated 22 mL/min (50-200); Estimated Glomerular Filt Rate 12 ml/min (>60); GFR (African American) 14 ML/MIN (>60); Glucose 160 mg/dl (74-100); Potassium 5.2 mmoL/L (3.5-5.1); Sodium 140 mmol/L (136-145)
[2024-11-23 21:38] LABS: Blood Urea Nitrogen 99 mg/dl (9-20); Creatinine,Serum 4.90 mg/dl (0.66-1.25)
[2024-11-23 21:46] LABS: NT Pro Brain Natriuretic Pep. 17300 pg/mL (0-450)
[2024-11-23] MEDS: RINGERS SOLUTION,LACTATED 500 ML 999 ML IV (22:06)
[2024-11-23] MEDS: LACTATED RINGERS 1000ML 1,000 ML 75 ML IV (22:44)
[2024-11-24] VITALS (22 sets, daily range): BP systolic 92–137; BP diastolic 50–87; PULSE 77–89; RESP 12–24; TEMP 36.7–37.8; O2SAT 94–100; BMI 32.1
--- NOTE | 2024-11-24 01:57 | PC.NURSE ---
Pt AOx2, pleasant. VSS. Provider notified earlier in shift of critical lab values. Pt received a 500mL bolus of LR and now has LR running at 75 mL/hr per provider order. Urine output around 300mL at this time. Provider aware of decreased urine output and kidney function. Urine is dark yellow, almost tea colored. Pt is resting with eyes closed. 4L nasal cannula HS. Respirations even and unlabored. Bed is low, locked, and call light is in reach.
[2024-11-24] MEDS: PIPERACILLIN/TAZO 2.25 GM in 0.9 % SODIUM CHLORIDE 50 ML IV ×3 (04:59→17:43)
[2024-11-24] MEDS: LACTATED RINGERS 1000ML 1,000 ML 75 ML IV (05:53)
[2024-11-24] MEDS: IPRATROPIUM/ALBUTEROL 3 ML NEB IH ×3 (07:08→18:18)
[2024-11-24 07:14] LABS: Alanine Aminotransferase 32 U/L (12-78); Albumin Level 2.9 g/dl (3.5-5.0); Albumin/Globulin Ratio 0.9 (1.1-1.8); Alkaline Phosphatase 131 U/L (38-126); Anion Gap 16.1 mEq/L (5-15); Aspartate Amino Transferase 53 U/L (17-59); Bilirubin,Total 1.3 mg/dl (0.2-1.3); Calcium 8.2 mg/dl (8.4-10.2); Carbon Dioxide 19 mmol/L (22.0-30.0); Chloride 112 mmol/L (98-107); Creatinine Clearance Estimated 21 mL/min (50-200); Estimated Glomerular Filt Rate 11 ml/min (>60); GFR (African American) 13 ML/MIN (>60); Globulin 3.2 g/dL (1.3-3.2); Glucose 95 mg/dl (74-100); Potassium 5.1 mmoL/L (3.5-5.1); Sodium 142 mmol/L (136-145); Total Protein,Serum 6.1 g/dl (6.3-8.2)
[2024-11-24 07:19] LABS: Blood Urea Nitrogen 99 mg/dl (9-20); Creatinine,Serum 5.10 mg/dl (0.66-1.25)
[2024-11-24 07:20] LABS: C-Reactive Protein 290.0 mg/L (0-4)
[2024-11-24 07:31] LABS: Procalcitonin 3.55 ng/mL (0.0-2.0)
--- NOTE | 2024-11-24 08:39 | P.PN_ITS ---
Subjective *Date: 11/24/24 *Time: 08:39 Medical Exam Vital signs and Labs for Last 24 Hours: Vital Signs Temp Pulse Pulse Resp BP BP Pulse Ox 11/24/24 07:47 98.3 F 79 18 118/56 L 97 11/24/24 07:08 77 11/24/24 07:08 77 11/24/24 07:08 100 11/24/24 06:41 11/24/24 05:00 11/24/24 04:00 80 11/24/24 04:00 99.0 F 80 22 125/67 100 11/24/24 03:00 11/24/24 01:00 11/24/24 00:00 80 11/24/24 00:00 98.8 F 89 24 109/53 L 100 11/23/24 23:49 89 11/23/24 23:49 89 11/23/24 23:49 92 L 11/23/24 23:00 11/23/24 21:00 11/23/24 20:00 90 11/23/24 20:00 11/23/24 19:52 98.5 F 90 20 107/61 L 100 11/23/24 18:33 11/23/24 17:00 11/23/24 16:00 80 11/23/24 16:00 98.6 F 82 18 111/57 L 98 11/23/24 13:00 11/23/24 12:34 79 11/23/24 11:59 71 18 130/68 94 L 11/23/24 11:31 76 11/23/24 11:31 77 11/23/24 11:31 92 L 11/23/24 11:01 98.4 F 78 24 114/58 L 92 L 11/23/24 11:00 11/23/24 10:00 78 24 126/56 L 92 L 11/23/24 10:00 92 L 11/23/24 08:58 98.2 F 73 22 115/59 L 90 L O2 Del Method O2 Flow Rate 11/24/24 07:47 Nasal Cannula 4 11/24/24 07:08 11/24/24 07:08 11/24/24 07:08 Nasal Cannula 4 11/24/24 06:41 Nasal Cannula 4 11/24/24 05:00 Nasal Cannula 4 11/24/24 04:00 11/24/24 04:00 Nasal Cannula 4 11/24/24 03:00 Nasal Cannula 4 11/24/24 01:00 Nasal Cannula 4 11/24/24 00:00 11/24/24 00:00 Nasal Cannula 4 11/23/24 23:49 11/23/24 23:49 11/23/24 23:49 Nasal Cannula 4 11/23/24 23:00 Nasal Cannula 4 11/23/24 21:00 Nasal Cannula 4 11/23/24 20:00 11/23/24 20:00 Nasal Cannula 4 11/23/24 19:52 Nasal Cannula 2 11/23/24 18:33 Nasal Cannula 2 11/23/24 17:00 Nasal Cannula 2 11/23/24 16:00 11/23/24 16:00 Nasal Cannula 2 11/23/24 13:00 Nasal Cannula 11/23/24 12:34 11/23/24 11:59 Nasal Cannula 4 11/23/24 11:31 11/23/24 11:31 11/23/24 11:31 Nasal Cannula 4 11/23/24 11:01 Nasal Cannula 4 11/23/24 11:00 Nasal Cannula 11/23/24 10:00 Nasal Cannula 4 11/23/24 10:00 Nasal Cannula 4 11/23/24 08:58 Intake and Output 11/23/24 11/24/24 11/24/24 23:59 07:59 15:59 Intake Total 800 / 2700 840 / 840 Output Total 125 / 1125 450 / 450 Balance 675 / 1575 390 / 390 Intake: Intake, Oral Amount 240 / 240 Intake, Total IV Amount 800 / 1450 600 / 600 Lactated Ringers 1000ML 1,000 500 / 500 ml @ 75 mls/hr IV .[id number] [facility] Rx#:[id number] Piperacillin/Tazo 2.25 gm In 0. 50 / 200 100 / 100 9 % Sodium Chloride 50 ml @ 100 mls/hr IV Q6H [facility] Rx#:[id number] Ringers Solution,Lactated 500 500 / 500 ml @ 999 mls/hr IV .Q31M [facility] Rx #:[id number] Vancomycin HCl 2,000 mg In 0.9 250 / 250 % Sodium Chloride 250 ml @ 125 mls/hr IV Q48H [facility] Rx#:[id number] Output: Output, Urine Amount 125 / 1125 450 / 450 Other: Number of Unmeasured Voids 0 0 Weight 119.567 kg Patient Weight 11/24/24 23:59 Weight 119.567 kg Laboratory Results - last 24 hr 11/23/24 13:09: Vancomycin Trough 11.4 H 11/23/24 14:00: VBG pH 7.37, VBG pCO2 33.1 L, VBG pO2 43.8 H, VBG HCO3 18.6 L, VBG Total CO2 19.6 L, VBG O2 Saturation 77.9 H, VBG Base Excess -6.8 L, VBG Lactic Acid 1.2 11/23/24 14:14: Sodium 142, Potassium 5.0, Chloride 110 H, Carbon Dioxide 20 L, Anion Gap 17.0 H, BUN 91 H, Creatinine 4.70 H, Estimated Creat Clear 23, Estimated GFR 12 L*, Est GFR ( Amer) 15 L*, Glucose 160 H D, Calcium 8.5 11/23/24 21:15: Sodium 140, Potassium 5.2 H, Chloride 111 H, Carbon Dioxide 19 L , Anion Gap 15.2 H, BUN 99 H, Creatinine 4.90 H, Estimated Creat Clear 22, Estimated GFR 12 L*, Est GFR ( Amer) 14 L*, Glucose 160 H, Calcium 8.2 L, NT-Pro-B Natriuret Pep 64325 H 11/24/24 06:45: Sodium 142, Potassium 5.1, Chloride 112 H, Carbon Dioxide 19 L, Anion Gap 16.1 H, BUN 99 H, Creatinine 5.10 H, Estimated Creat Clear 21, Estimated GFR 11 L*, Est GFR ( Amer) 13 L*, Glucose 95 D, Calcium 8.2 L, Total Bilirubin 1.3, AST 53, ALT 32, Alkaline Phosphatase 131 H, C-Reactive Protein 290.0 H, Total Protein 6.1 L, Albumin 2.9 L, Globulin 3.2, Albumin/Globulin Ratio 0.9 L, Procalcitonin 3.55 H I & O for Labs for Last 24 Hours: Intake & Output 11/21/24 11/22/24 11/23/24 11/24/24 23:59 23:59 23:59 23:59 Intake Total 2100 / 2218 1846.333 / 9842.187 8917 / 2700 840 / 840 Output Total 1925 / 1925 950 / 950 1125 / 1125 450 / 450 Balance 175 / 293 896.333 / 933.642 4714 / 1575 390 / 390 Weight 118.433 kg 119.204 kg 120.429 kg 119.567 kg Microbiology Reports for the Last 24 Hours: Microbiology 11/21/24 13:27 Nose - Nasal MRSA Culture - Final Negative The patient's infection will respond to the chosen ABx?: Yes (BLOOD CX PENDING, AFEBRILE OVER 24 HR) Is the patient receiving the right drug, dose, and route?: Yes Could a more targeted ABx be ordered?: No How long ABx needed (days)?: 7
[2024-11-24] MEDS: FLUTICASONE/UMECLIDIN/VILANTER 100/62.5/25MCG INHALER 1 PUFF IH (08:54)
[2024-11-24] MEDS: TIMOLOL 0.5% OPTH SOLN 5ML OP (08:54)
[2024-11-24] MEDS: FLUTICASONE PROP 50MCG NASAL SPRAY 16GM 2 SPRAY NS (08:54)
[2024-11-24] MEDS: POLYETHYLENE GLYCOL 3350 17 GM PACKET 34 GM PO (08:55)
[2024-11-24] MEDS: FINASTERIDE 5MG TABLET 5 MG PO (08:55)
[2024-11-24] MEDS: OXYCODONE 5MG IMMEDIATE RELEASE TABLET 10 MG PO ×3 (08:55→20:12)
[2024-11-24] MEDS: ESCITALOPRAM 10MG TABLET 5 MG PO (08:55)
[2024-11-24] MEDS: GABAPENTIN 100MG CAPSULE 100 MG PO (08:55)
[2024-11-24] MEDS: LIDOCAINE 5% TRANSDERMAL PATCH 1 EACH TD (08:55)
[2024-11-24] MEDS: METOPROLOL SUCCINATE XL 100MG TABLET 100 MG PO (08:55)
[2024-11-24] MEDS: BUMETANIDE 1MG/4ML VIAL 2 MG IV (10:08)
[2024-11-24 10:17] LABS: Hematocrit 21.9 % (42.0-52.0); Immature Granulocytes % 1.7 %; Mean Corpuscular HGB Conc 31.1 g/dL (31.8-35.4); Mean Corpuscular Hemoglobin 27.6 pg (27.0-31.2); Mean Corpuscular Volume 89.0 fl (80-94); Nucleated Red Blood Cells % 0 %; Red Blood Count 2.46 M/mm3 (4.60-6.20); Red Cell Distribution Width-SD 54.7 fL
[2024-11-24 10:20] LABS: Hemoglobin 6.8 g/dL (14.1-18.0); Platelet Count 17 K/mm3 (142-424)
[2024-11-24 12:19] LABS: RBC Morphology Normal; Total Cells Counted 100
[2024-11-24 12:21] LABS: White Blood Count 8.3 K/mm3 (4.8-10.8)
[2024-11-24] MEDS: BUMETANIDE 1MG/4ML VIAL 1 MG IV (13:53)
[2024-11-24 17:22] LABS: Chloride 111 mmol/L (98-107); Potassium 5.3 mmoL/L (3.5-5.1); Sodium 143 mmol/L (136-145)
[2024-11-24 17:25] LABS: Anion Gap 21.3 mEq/L (5-15); Calcium 8.7 mg/dl (8.4-10.2); Carbon Dioxide 16 mmol/L (22.0-30.0); Creatinine Clearance Estimated 20 mL/min (50-200); Estimated Glomerular Filt Rate 11 ml/min (>60); GFR (African American) 13 ML/MIN (>60); Glucose 118 mg/dl (74-100)
[2024-11-24 17:33] LABS: Blood Urea Nitrogen 111 mg/dl (9-20); Creatinine,Serum 5.30 mg/dl (0.66-1.25)
--- NOTE | 2024-11-24 18:09 | PC.NURSE ---
pt resting supine in bed. requiring 4LNC to maintain sats >90%. pt has bleeding in the nasal passages. o2 is humidified. bhandari remains in place draining dark yellow urine. pt able to take pills whole with coaching. pt unable to use straw, but can drink from open top cup. pt refusing to eat anything this shift. will not drink ensure either. 1 unit of blood transfused for hgb of 6.8. pt has had numerous critical labs called for hgb, platelets, BUN and creatinine. hospitalist is contacting for possible transfer. pt has no needs at this time. call light within reach. bed in low and locked position
--- NOTE | 2024-11-24 19:12 | EXP.DC.SUM ---
General Admission date:: 11/13/24 HPI HPI HPI: Patient presented from his skilled nursing with worsening weakness and tremor this morning. Had 2 falls recently in the past week per report from staff at the skilled nursing. Just started chemo few weeks ago for lung cancer. Last course on Tuesday. And has been having increased flank pain and weakness since. Found to be hypoxic on arrival to the ER, normally wears oxygen at 2 L baseline. On workup in the ER, patient found to be septic with grossly abnormal urine, low white count at 2.8, and fever of 102. Medicine consulted for admission and further treatment of sepsis and UTI. Long-term indwelling catheter, complicated UTI. Has grown ESBL in the past. Denies nausea, vomiting, diarrhea. Patient pleasant on exam but fatigued. Quite weak Hospital Course Hospital Course Hospital Course: Edi Toussaint is a 74-year-old male with a complex medical history significant for left upper lobe lung adenocarcinoma s/p radiation (first chemoinfusion with Alimta on 11/06/2024), colon adenocarcinoma s/p resection in 2020, CKD stage IIIb CAD with stents to LAD in September 2024, obstructive uropathy with indwelling catheter, bilateral visual impairment/blindness, COPD on 2 L at night, HFmrEF, polycystic kidney disease, paroxysmal A-fib, GERD who presented to the ED with weakness from [facility]. Found to be meeting sepsis criteria with white count of 2.8, temperature 102.4, and frankly abnormal urine with 4+ bacteria, 50-100 whites, 2+ leuk esterase and nitrate negative. Discussed case with ER physician, requested admission for further management of sepsis. Hospital course complicated by worsening pancytopenia, waxing and waning mentation/delirium, and progressive renal insufficiency. #Severe sepsis, resolved #Sepsis, resolved #Complicated UTI secondary to chronic indwelling catheter #Postobstructive pneumonia #Pancytopenia, resolving #Recent chemoinfusion #Immunosuppressed, lung adenocarcinoma on chemotherapy ? Underwent chemoinfusion on 11/06/2024, has had significant decline since then. Presented with pancytopenia, fevers, tachycardia, CAUTI. ? Sepsis, persistent fevers were initially thought to be related to chemoinfusion and CAUTI. However, CT chest on 11/21/2024 showed persistent left upper lobe opacity consistent with postobstructive pneumonia. ? Continues to have intermittent fevers, but afebrile for the last 24 hours. WBC improving, 8.5. Hemoglobin down from 7.6-6.8 today. Platelets plateaued at 17 today. ? Given worsening thrombocytopenia and ELMER on CKD, DIC, TTP, HUS were considered. However, fibrinogen elevated (likely reactive) ruling out DIC and indirect bilirubin, LDH normal ruling out TTP/HUS. - Urine culture 11/13 growing Klebsiella pneumonia sensitive to Zosyn. Catheter exchanged in the ED. Treated with Zosyn/meropenem for total of 10 days. ? Continue vancomycin, Zosyn 2.25 g every 6 hours for postobstructive pneumonia. Continue to renally dose. ? Discussed with pulmonology, planned for bronchoscopy on 11/26/2024, due to Plavix washout. Cardiology agreeable to holding antiplatelets until then. However, patient's mentation is not amenable for decision making at this time for consent. #Polycystic kidney disease #ELMER on CKD 3b #High anion gap metabolic acidosis #Obstructive uropathy with chronic indwelling catheter ? Presented with creatinine 2.9, baseline around 2.0. ? Creatinine has progressively declined in spite of volume resuscitation, IV diuretics (in the setting of HFpEF). ? FEna and FEUrea studies indicated late-stage prerenal disease, and likely an ATN now. ? Renal ultrasound 11/20/2024 shows known cyst in kidney without hydronephrosis. ? Patient is making urine at this time, he was given Bumex 2 mg twice daily today as patient is volume overloaded with a BNP of 17,000. Unfortunately his creatinine continues to bump to 5.3, GFR 11, BUN 111 this afternoon. ? Bicarb 16, AGAP 21.3. ? Given progressive renal insufficiency in the setting of significant irreversible comorbidities, I attempted to have a goals of care conversation with patient. However, unfortunately patient's mentation continues to wax and wane and he does not have capacity to make decisions at this time. Earlier in admission, I did have a goals of care conversation at which point patient indicated that he would want full treatment including interventions such as bronchoscopy. For this reason, I reached out to [facility] and spoke with transfer attending Dr. Momin and nephrology who both also agreed that patient would benefit from a palliative/hospice discussion but does not have capacity at this time. Given this, they graciously accepted patient for further evaluation and management and possibly dialysis. Currently pending bed assignment. - Continue home tamsulosin 0.4 mg nightly. #Possible SBO/ileus, resolved #Possible aspiration ? CT abdomen/pelvis on 11/16/2024 suggested possible SBO in periumbilical hernia. Having bowel movements, did have a vagal episode after large bowel movement during admission. Hernia is reducible on exam. Tolerating diet. #Left upper lobe lung adenocarcinoma #History of colon adenocarcinoma ? Former smoker, following with pulmonology and oncology closely. ? Completed radiation therapy, however mass showed progression. - Oncology began chemotherapy in the past few weeks. First dose on 11/06/2024. Complicates his ability to fight infection. Stable oxygen requirement at this time of 2-3 L. #CAD with stents #HFmrEF #Paroxysmal A-fib - Perfusion scan from 09/10 with fixed perfusion defects. EF calculated at 43%. - Heart cath performed 09/11/2024 with severe proximal and mid LAD disease. Received 3 contiguous stents. - Continue Lipitor 40 mg daily, metoprolol succinate 100 mg daily. - Holding Jardiance in the setting of complicated UTI. - Continue to monitor on telemetry ? Holding Plavix, Eliquis for previously planned bronchoscopy on 11/29/2024. #GERD: Continue home PPI. continue oxcarbazepine 300 mg twice daily, suspect for mood. Patient denies known seizure disorder. Total time spent on discharge: 60 minutes on chart review, counseling, documentation, and direct care with patient. Exam Data for Last 24 hours Vital signs and Labs for Last 24 Hours: Temp Pulse Resp BP Pulse Ox O2 Del Method O2 Flow Rate 98.8 F 86 20 124/67 96 Nasal Cannula 4 11/24/24 18:30 11/24/24 18:30 11/24/24 18:30 11/24/24 18:30 11/24/24 18:30 11/24/24 18:44 11/24/24 18:44 FiO2 35 11/21/24 22:00 Laboratory Results - last 24 hr 11/23/24 21:15: Sodium 140, Potassium 5.2 H, Chloride 111 H, Carbon Dioxide 19 L, Anion Gap 15.2 H, BUN 99 H, Creatinine 4.90 H, Estimated Creat Clear 22, Estimated GFR 12 L*, Est GFR ( Amer) 14 L*, Glucose 160 H, Calcium 8.2 L, NT-Pro-B Natriuret Pep 24720 H 11/24/24 06:45: WBC 8.3 D, RBC 2.46 L, Hgb 6.8 L*, Hct 21.9 L, MCV 89.0, MCH 27.6, MCHC 31.1 L, RDW 17.1, Plt Count 17 L*, Neut % (Auto) 93.1 H, Lymph % (Auto) 2.9 L, [place] % (Auto) 2.0, Eos % (Auto) 0.2, Baso % (Auto) 0.1, Neut # (Auto) 7.7, Lymph # (Auto) 0.2 L, [place] # (Auto) 0.2, Eos # (Auto) 0.0, Baso # (Auto) 0.0, Total Counted 100, Neutrophils % (Manual) 94 H, Lymphocytes % (Manual) 4 L, Monocytes % (Manual) 2, Platelet Estimate Marked decrease, RBC Morphology Normal, Sodium 142, Potassium 5.1, Chloride 112 H, Carbon Dioxide 19 L, Anion Gap 16.1 H, BUN 99 H, Creatinine 5.10 H, Estimated Creat Clear 21, Estimated GFR 11 L*, Est GFR ( Amer) 13 L*, Glucose 95 D, Calcium 8.2 L, Total Bilirubin 1.3, AST 53, ALT 32, Alkaline Phosphatase 131 H, C-Reactive Protein 290.0 H, Total Protein 6.1 L, Albumin 2.9 L, Globulin 3.2, Albumin/Globulin Ratio 0.9 L, Procalcitonin 3.55 H 11/24/24 10:45: Blood Type AB Positive, Antibody Screen Negative, Crossmatch ([facility]) See Detail 11/24/24 16:50: Sodium 143, Potassium 5.3 H, Chloride 111 H, Carbon Dioxide 16 L, Anion Gap 21.3 H, BUN 111 H*, Creatinine 5.30 H, Estimated Creat Clear 20, Estimated GFR 11 L*, Est GFR ( Amer) 13 L*, Glucose 118 H D, Calcium 8.7 I & O for Last 24 hours: Intake & Output 11/21/24 11/22/24 11/23/24 11/24/24 23:59 23:59 23:59 23:59 Intake Total 2100 / 2218 1846.333 / 1632.178 2762 / 2700 1707.5 / 1707.5 Output Total 1925 / 1925 950 / 950 1125 / 1125 1350 / 1350 Balance 175 / 293 896.333 / 284.118 6375 / 1575 357.5 / 357.5 Weight 118.433 kg 119.204 kg 120.429 kg 119.567 kg Microbiology Reports for the Last 24 Hours: Microbiology 11/23/24 14:14 Blood Blood Culture - Preliminary NO GROWTH AFTER 24 HOURS 11/23/24 13:09 Blood Blood Culture - Preliminary NO GROWTH AFTER 24 HOURS Constitutional Constitutional: no acute distress Comments: Bilateral blindness. Very pleasant. But waxing and waning mentation, currently encephalopathic. *Routine HEENT Exam Head: Present normocephalic Eye: Present EOMI and PERRL ENT: Present mucous membranes moist *Routine Neck Exam Neck: Present supple; Absent lymphadenopathy *Routine Respiratory Exam Respiratory: Present CTA bilaterally *Routine Cardiovascular Exam Cardiovascular: Present RRR *Routine Abdominal Exam Abdominal: Present soft and normoactive bowel sounds; Absent tenderness *Routine Extremities Exam Extremities: Present edema; Absent cyanosis or clubbing Comments: Chronic venous stasis changes. 2+ pitting edema lower extremities. *Routine Skin Exam Skin: Present warm; Absent rash *Routine Neurological Exam Neurological: Present alert Results Data Completed and Pending Labs on day of discharge: Labs from last 24 hours 11/24/24 11/24/24 11/24/24 16:50 10:45 06:45 WBC 8.3 D RBC 2.46 L Hgb 6.8 L* Hct 21.9 L MCV 89.0 MCH 27.6 MCHC 31.1 L RDW 17.1 Plt Count 17 L* Neut % (Auto) 93.1 H Lymph % (Auto) 2.9 L [place] % (Auto) 2.0 Eos % (Auto) 0.2 Baso % (Auto) 0.1 Neut # (Auto) 7.7 Lymph # (Auto) 0.2 L [place] # (Auto) 0.2 Eos # (Auto) 0.0 Baso # (Auto) 0.0 Total Counted 100 Neutrophils % (Manual) 94 H Lymphocytes % (Manual) 4 L Monocytes % (Manual) 2 Platelet Estimate Marked decrease RBC Morphology Normal Sodium 143 142 Potassium 5.3 H 5.1 Chloride 111 H 112 H Carbon Dioxide 16 L 19 L Anion Gap 21.3 H 16.1 H BUN 111 H* 99 H Creatinine 5.30 H 5.10 H Estimated Creat Clear 20 21 Estimated GFR 11 L* 11 L* Est GFR ( Amer) 13 L* 13 L* Glucose 118 H D 95 D Calcium 8.7 8.2 L Total Bilirubin 1.3 AST 53 ALT 32 Alkaline Phosphatase 131 H C-Reactive Protein 290.0 H NT-Pro-B Natriuret Pep Total Protein 6.1 L Albumin 2.9 L Globulin 3.2 Albumin/Globulin Ratio 0.9 L Procalcitonin 3.55 H Blood Type AB Positive Antibody Screen Negative Crossmatch ([facility]) See Detail 11/23/24 21:15 WBC RBC Hgb Hct MCV MCH MCHC RDW Plt Count Neut % (Auto) Lymph % (Auto) [place] % (Auto) Eos % (Auto) Baso % (Auto) Neut # (Auto) Lymph # (Auto) [place] # (Auto) Eos # (Auto) Baso # (Auto) Total Counted Neutrophils % (Manual) Lymphocytes % (Manual) Monocytes % (Manual) Platelet Estimate RBC Morphology Sodium 140 Potassium 5.2 H Chloride 111 H Carbon Dioxide 19 L Anion Gap 15.2 H BUN 99 H Creatinine 4.90 H Estimated Creat Clear 22 Estimated GFR 12 L* Est GFR ( Amer) 14 L* Glucose 160 H Calcium 8.2 L Total Bilirubin AST ALT Alkaline Phosphatase C-Reactive Protein NT-Pro-B Natriuret Pep 54985 H Total Protein Albumin Globulin Albumin/Globulin Ratio Procalcitonin Blood Type Antibody Screen Crossmatch ([facility]) Preliminary micro results at discharge 11/23/24 14:14 Blood Culture - Preliminary Blood NO GROWTH AFTER 24 HOURS 11/23/24 13:09 Blood Culture - Preliminary Blood NO GROWTH AFTER 24 HOURS DS: Diagnosis Discharge Diagnosis (1) Primary lung cancer: Status: Acute Code(s): C34.90 - Malignant neoplasm of unspecified part of unspecified bronchus or lung Qualifiers: Laterality: unspecified laterality Qualified Code(s): C34.90 - Malignant neoplasm of unspecified part of unspecified bronchus or lung (2) Pneumonia: Status: Acute Code(s): J18.9 - Pneumonia, unspecified organism Qualifiers: Laterality: unspecified laterality Lung location: unspecified part of lung Pneumonia type: due to unspecified organism Qualified Code(s): J18.9 - Pneumonia, unspecified organism (3) Acute and chronic respiratory failure with hypoxia: Status: Acute Code(s): J96.21 - Acute and chronic respiratory failure with hypoxia Meds Home Medications and Allergies Home Medications ?Medication ?Instructions ?Recorded ?Confirmed ?Type cetirizine 10 mg tablet 10 mg PO DAILY 06/09/23 11/13/24 History ferrous sulfate 325 mg (65 mg 325 mg PO DAILY 06/09/23 11/13/24 History iron) tablet isosorbide mononitrate 30 mg 30 mg PO DAILY 06/09/23 11/13/24 History tablet,extended release 24 hr oxcarbazepine 300 mg tablet 300 mg PO BID 06/09/23 11/13/24 History acetaminophen 500 mg capsule 500 mg PO Q4HP PRN Mild Pain 06/10/23 11/13/24 History (Scale Score 1-4) multivitamin 1 tab PO DAILY 06/10/23 11/13/24 History timolol maleate 0.5 % eye drops 1 drp ophthalmic (eye) DAILY 06/10/23 11/13/24 History escitalopram oxalate 5 mg tablet 5 mg PO DAILY 12/06/23 11/13/24 History (Lexapro) guaifenesin 100 mg/5 mL oral liquid 200 mg PO Q6HP PRN Cough 12/22/23 11/13/24 History lidocaine 4 % topical patch 1 patch topical DAILY 12/22/23 11/13/24 History (Lidocaine Pain Relief) ondansetron HCl 4 mg tablet 4 mg PO Q4HP PRN Nausea 12/22/23 11/13/24 History fluticasone fur. 100 mcg-umeclid 1 inh inhalation DAILY #60 ea 01/03/24 11/13/24 Rx 62.5 mcg-vilant 25 mcg inhalat.powder (Trelegy Ellipta) loperamide 2 mg capsule 2 mg PO Q6HP PRN Diarrhea 02/14/24 11/13/24 History white petrolatum-mineral oil 94 1 applic ophthalmic (eye) HS 02/14/24 11/13/24 History %-3 % eye ointment (Systane Nighttime) finasteride 5 mg tablet 5 mg PO DAILY #90 tabs 03/05/24 11/13/24 Rx tamsulosin 0.4 mg capsule 0.4 mg PO HS 90 days #90 caps 03/05/24 11/13/24 Rx aluminum hydrox-magnesium carb 95 30 ml PO Q6HP PRN Acid Reflux 04/24/24 11/13/24 History mg-358 mg/15 mL oral suspension (Acid Gone Antacid) apixaban 2.5 mg tablet (Eliquis) 2.5 mg PO BID #60 tabs 05/24/24 11/13/24 Rx gabapentin 100 mg capsule 100 mg PO BID #60 caps 06/08/24 11/13/24 Rx fluticasone propionate 50 2 spray intranasal DAILY 06/26/24 11/13/24 History mcg/actuation nasal spray,suspension (Flonase Allergy Relief) metoprolol succinate 100 mg 100 mg PO DAILY 06/26/24 11/13/24 History tablet,extended release 24 hr ipratropium 0.5 mg-albuterol 3 mg 3 ml inhalation QIDP PRN Shortness 09/04/24 11/13/24 History (2.5 mg base)/3 mL nebulization Of Breath Or Wheezing soln sennosides 8.6 mg tablet (Senna 17.2 mg PO HS 09/04/24 11/13/24 History Laxative) atorvastatin 40 mg tablet 40 mg PO HS 30 days #30 tabs 09/12/24 11/13/24 Rx clopidogrel 75 mg tablet 75 mg PO DAILY 30 days #30 tabs 09/12/24 11/13/24 Rx pantoprazole 40 mg tablet,delayed 40 mg PO HS 30 days #30 tabs 09/12/24 11/13/24 Rx release furosemide 20 mg tablet 20 mg PO DAILY 10/27/24 11/13/24 History oxycodone 10 mg tablet 10 mg PO TID #90 tabs 11/02/24 11/13/24 Rx New Prescriptions to Start Prescriptions: Allergies Allergy/AdvReac Type Severity Reaction Status Date / Time No Known Allergies Allergy Verified 11/06/24 10:40 Discharge Plan Disposition Patient Disposition: Xfer Short-Term Hosp Condition: Serious Follow up Plan Prescriptions/Medication Reconciliation: No Action Eliquis 2.5 mg tablet 2.5 mg PO BID Qty: 60 2RF Trelegy Ellipta 100-62.5-25 mcg blister with device 1 inh inhalation DAILY Qty: 60 2RF loperamide 2 mg capsule 2 mg PO Q6HP PRN (Reason: Diarrhea) Systane Nighttime 94-3 % ointment 1 applic ophthalmic (eye) HS finasteride 5 mg tablet 5 mg PO DAILY Qty: 90 3RF tamsulosin 0.4 mg capsule 0.4 mg PO HS 90 Days Qty: 90 1RF metoprolol succinate 100 mg tablet extended release 24 hr 100 mg PO DAILY fluticasone propionate [Flonase Allergy Relief] 50 mcg/actuation spray,suspension 2 spray intranasal DAILY Rx Instructions: administer into each nostril escitalopram oxalate [Lexapro] 5 mg tablet 5 mg PO DAILY sennosides [Senna Laxative] 8.6 mg tablet 17.2 mg PO HS ipratropium-albuterol 0.5 mg-3 mg(2.5 mg base)/3 mL solution for nebulization 3 ml inhalation QIDP PRN (Reason: Shortness Of Breath Or Wheezing) lidocaine [Lidocaine Pain Relief] 4 % adhesive patch,medicated 1 patch TOPICAL DAILY ondansetron HCl 4 mg Tablet 4 mg PO Q4HP PRN (Reason: Nausea) guaifenesin 100 mg/5 mL Liquid 200 mg PO Q6HP PRN (Reason: Cough) Acid Gone Antacid 95-358 mg/15 mL suspension 30 ml PO Q6HP PRN (Reason: Acid Reflux) gabapentin 100 mg capsule 100 mg PO BID Qty: 60 5RF oxycodone 10 mg tablet 10 mg PO TID Qty: 90 0RF cetirizine 10 mg tablet 10 mg PO DAILY isosorbide mononitrate 30 mg tablet extended release 24 hr 30 mg PO DAILY oxcarbazepine 300 mg tablet 300 mg PO BID ferrous sulfate 325 mg (65 mg iron) tablet 325 mg PO DAILY multivitamin Tablet 1 tab PO DAILY timolol maleate 0.5 % drops 1 drp ophthalmic (eye) DAILY acetaminophen 500 mg Capsule 500 mg PO Q4HP PRN (Reason: Mild Pain (Scale Score 1-4)) atorvastatin 40 mg Tablet 40 mg PO HS 30 Days Qty: 30 0RF clopidogrel 75 mg Tablet 75 mg PO DAILY 30 Days Qty: 30 0RF pantoprazole 40 mg Tablet,Delayed Release (Dr/Ec) 40 mg PO HS 30 Days Qty: 30 0RF furosemide 20 mg Tablet 20 mg PO DAILY Problem Reconciliation Problems Reviewed?: Yes Patient Discharge Instructions Patient Instructions: DI for Urinary Tract Infection (UTI), DI for Sepsis -- Adult, DI for Acute Kidney Injury Print Language: Bahraini Providers Primary Care Provider: Provider,Referral Admit Provider: Edi Ramirez Attending Provider: Edi Ramirez
[2024-11-24 19:49] LABS: Hematocrit 24.0 % (42.0-52.0)
[2024-11-24 19:50] LABS: Hemoglobin 7.6 g/dL (14.1-18.0)
[2024-11-24] MEDS: ATORVASTATIN 40MG TABLET 40 MG PO (20:12)
[2024-11-24] MEDS: PANTOPRAZOLE 40MG TABLET 40 MG PO (20:12)
[2024-11-24] MEDS: TAMSULOSIN 0.4MG CAPSULE 0.4 MG PO (20:12)
[2024-11-25] VITALS (8 sets, daily range): BP systolic 90–137; BP diastolic 60–87; PULSE 68–74; RESP 19–22; TEMP 36.4–37.1; O2SAT 94–100; BMI 31.4
[2024-11-25] MEDS: PIPERACILLIN/TAZO 2.25 GM in 0.9 % SODIUM CHLORIDE 50 ML IV ×2 (00:48→05:20)
--- NOTE | 2024-11-25 06:05 | PC.NURSE ---
Pt has remained alert to self only. He has remained on 4L nasal cannula most of the night and was weaned to 3L nasal cannula with O2 >95%. Jason has remained in place draining dark yellow urine. He has slept most of the shift. He has received IV ABX. No complaints at this time, call light within reach.
[2024-11-25] MEDS: FLUTICASONE/UMECLIDIN/VILANTER 100/62.5/25MCG INHALER 1 PUFF IH (06:30)
[2024-11-25] MEDS: IPRATROPIUM/ALBUTEROL 3 ML NEB IH ×2 (06:30→12:07)
[2024-11-25 08:48] LABS: Alanine Aminotransferase 29 U/L (12-78); Albumin Level 3.0 g/dl (3.5-5.0); Albumin/Globulin Ratio 0.9 (1.1-1.8); Alkaline Phosphatase 123 U/L (38-126); Anion Gap 18.2 mEq/L (5-15); Aspartate Amino Transferase 50 U/L (17-59); Bilirubin,Total 1.2 mg/dl (0.2-1.3); Calcium 8.4 mg/dl (8.4-10.2); Carbon Dioxide 17 mmol/L (22.0-30.0); Chloride 113 mmol/L (98-107); Creatinine Clearance Estimated 19 mL/min (50-200); Estimated Glomerular Filt Rate 10 ml/min (>60); GFR (African American) 12 ML/MIN (>60); Globulin 3.2 g/dL (1.3-3.2); Glucose 148 mg/dl (74-100); Potassium 5.2 mmoL/L (3.5-5.1); Sodium 143 mmol/L (136-145); Total Protein,Serum 6.2 g/dl (6.3-8.2)
[2024-11-25 08:54] LABS: C-Reactive Protein 309.0 mg/L (0-4)
[2024-11-25 09:03] LABS: Hematocrit 22.9 % (42.0-52.0); Hemoglobin 7.3 g/dL (14.1-18.0); Immature Granulocytes % 2.0 %; Mean Corpuscular HGB Conc 31.9 g/dL (31.8-35.4); Mean Corpuscular Hemoglobin 28.3 pg (27.0-31.2); Mean Corpuscular Volume 88.8 fl (80-94); Nucleated Red Blood Cells % 0.2 %; Red Blood Count 2.58 M/mm3 (4.60-6.20); Red Cell Distribution Width-SD 54.6 fL; White Blood Count 9.3 K/mm3 (4.8-10.8)
[2024-11-25 09:05] LABS: Procalcitonin 3.52 ng/mL (0.0-2.0)
[2024-11-25 09:12] LABS: Blood Urea Nitrogen 114 mg/dl (9-20); Creatinine,Serum 5.60 mg/dl (0.66-1.25)
[2024-11-25] MEDS: TIMOLOL 0.5% OPTH SOLN 5ML OP (09:34)
[2024-11-25] MEDS: FLUTICASONE PROP 50MCG NASAL SPRAY 16GM 2 SPRAY NS (09:34)
[2024-11-25] MEDS: LIDOCAINE 5% TRANSDERMAL PATCH 1 EACH TD (09:35)
[2024-11-25] MEDS: POLYETHYLENE GLYCOL 3350 17 GM PACKET 34 GM PO (09:35)
[2024-11-25] MEDS: ESCITALOPRAM 10MG TABLET 5 MG PO (09:35)
[2024-11-25] MEDS: FINASTERIDE 5MG TABLET 5 MG PO (09:35)
[2024-11-25] MEDS: METOPROLOL SUCCINATE XL 100MG TABLET 100 MG PO (09:35)
[2024-11-25] MEDS: OXYCODONE 5MG IMMEDIATE RELEASE TABLET 10 MG PO ×2 (09:37→12:17)
[2024-11-25 10:01] LABS: RBC Morphology Normal; Total Cells Counted 100
[2024-11-25 10:02] LABS: Platelet Count 19 K/mm3 (142-424)
[2024-11-25] MEDS: CEFEPIME HCL 1 GM in 0.9 % SODIUM CHLORIDE 50 ML IV (12:17)
[2024-11-25 13:29] LABS: Vancomycin,Trough 19.1 ug/mL (5.0-10.0)
[2024-11-27 11:12] LABS: Clinical Relevance Notes (.); Fungitell Value < 31.25 pg/mL (.); Interpretation Notes (.)
== END 2024-11-25 15:15 | disposition short-term general hospital (02) | DRG 871 ==
LOC: ER 11:33 → ICU 11:53 → 2ND 11-23 12:30
PROVIDERS: Internal Medicine Pulmonary Disease; Nurse Practitioner Family; Student in an Organized Health Care Education/Training Program; Admitting Provider Internal Medicine Adolescent Medicine; Emergency Provider Student in an Organized Health Care Education/Training Program; Visit Provider Internal Medicine Adolescent Medicine
DX: A41.9 Sepsis, unspecified organism (principal); G93.41 Metabolic encephalopathy; J18.9 Pneumonia, unspecified organism; N17.0 Acute kidney failure with tubular necrosis; J96.21 Acute and chronic respiratory failure with hypoxia; T83.511A Infection and inflammatory reaction due to indwelling urethral catheter, initial encounter; C34.12 Malignant neoplasm of upper lobe, left bronchus or lung; Q61.3 Polycystic kidney, unspecified; I50.22 Chronic systolic (congestive) heart failure; D84.821 Immunodeficiency due to drugs; D84.81 Immunodeficiency due to conditions classified elsewhere; E87.20 Acidosis, unspecified; K56.7 Ileus, unspecified; K42.0 Umbilical hernia with obstruction, without gangrene; N13.8 Other obstructive and reflux uropathy; I13.0 Hypertensive heart and chronic kidney disease with heart failure and stage 1 through stage 4 chronic kidney disease, or unspecified chronic kidney disease; J44.0 Chronic obstructive pulmonary disease with (acute) lower respiratory infection; N39.0 Urinary tract infection, site not specified; D61.818 Other pancytopenia; R65.20 Severe sepsis without septic shock; I25.10 Atherosclerotic heart disease of native coronary artery without angina pectoris; N18.32 Chronic kidney disease, stage 3b; I48.0 Paroxysmal atrial fibrillation; K21.9 Gastro-esophageal reflux disease without esophagitis; E66.811 Obesity, class 1; N40.1 Benign prostatic hyperplasia with lower urinary tract symptoms; H54.3 Unqualified visual loss, both eyes; B96.1 Klebsiella pneumoniae [K. pneumoniae] as the cause of diseases classified elsewhere; D63.1 Anemia in chronic kidney disease; E78.2 Mixed hyperlipidemia; I65.29 Occlusion and stenosis of unspecified carotid artery; F39 Unspecified mood [affective] disorder; T45.1X5A Adverse effect of antineoplastic and immunosuppressive drugs, initial encounter; T17.928A Food in respiratory tract, part unspecified causing other injury, initial encounter; W44.F3XA Food entering into or through a natural orifice, initial encounter; Y84.6 Urinary catheterization as the cause of abnormal reaction of the patient, or of later complication, without mention of misadventure at the time of the procedure; Y92.129 Unspecified place in nursing home as the place of occurrence of the external cause; Z68.31 Body mass index [BMI] 31.0-31.9, adult; Z85.038 Personal history of other malignant neoplasm of large intestine; Z95.5 Presence of coronary angioplasty implant and graft; Z87.891 Personal history of nicotine dependence; Z79.01 Long term (current) use of anticoagulants; Z99.81 Dependence on supplemental oxygen; Z79.02 Long term (current) use of antithrombotics/antiplatelets; Z79.899 Other long term (current) drug therapy
CPT/HCPCS: 0223U; 36415; 36430; 36600; 71045; 71250; 74176; 76770; 80048; 80053; 80061; 80076; 80202; 81001; 81596; 82043; 82247; 82248; 82272; 82550; 82570; 82607; 82746; 82803; 82962; 83605; 83615; 83735; 83880; 84145; 84156; 84439; 84484; 84540; 85007; 85014; 85018; 85025; 85378; 85384; 85610; 86078; 86140; 86850; 87040; 87081; 87086; 87088; 87186; 87449; 87636; 89220; 92526; 92610; 93005; 93306; 94640; 94761; 97110; 97162; 97165; 97530; 97535; 99285; G0328; J0131; J0692; J1644; J1938; J1939; J2185; J2543; J2919; J3373; J7030; J7050; J7120; P9016